=== PATIENT | female | born 1945 | race Caucasian/White ===

== ENCOUNTER 2017-05-17 09:22 | Observation (INO) | payer MEDICARE, SELFPAY ==
[2017-05-17 09:23] VITALS: BP 124/62; PULSE 84; RESP 22; TEMP 36.8; O2SAT 95; BMI 40.2
--- NOTE | 2017-05-17 09:37 | EKG12_ITS ---
Test Reason : NEAR SYNCOPE Blood Pressure : / mmHG Vent. Rate : 084 BPM Atrial Rate : 084 BPM P-R Int : 150 ms QRS Dur : 070 ms QT Int : 402 ms P-R-T Axes : 030 -08 -05 degrees QTc Int : 475 ms Normal sinus rhythm Normal ECG Confirmed by SHIRA BALLARD ([id number]), fashion editor BANDAR PATEL ([id number]) on 05/22/2017 10:10:09 AM Referred By: MIRYAM/PHILIP Confirmed By:SHIRA BALLARD
--- NOTE | 2017-05-17 09:37 | CT_ITS ---
STUDY: CT ABDOMEN AND PELVIS WITHOUT CONTRAST REASON FOR EXAM: Female, 72 years old. Abdominal pain with distention and diarrhea. RADIATION DOSAGE (If Supplied By Facility): CTDIvol = ( 24.05 ) mGy, DLP = ( 1093.41 ) mGycm TECHNIQUE: Transaxial images were obtained from the dome of the diaphragm to the symphysis pubis without oral contrast, and without intravenous contrast. Sagittal and coronal images were reconstructed. Individualized dose optimization techniques were used for this CT. COMPARISON: None. FINDINGS: Mild degree of increased linear markings at the lung bases suggestive of either scarring or dependent bibasilar atelectasis. The visualized portions of the heart are within normal limits. Normal liver. There are surgical clips in the gallbladder fossa consistent with a prior cholecystectomy. Normal spleen. Small amount of perisplenic fluid. Normal pancreas. Normal bilateral adrenal glands. Normal right kidney. Normal left kidney. There is a small hiatal hernia. Normal small intestine. There are multiple colonic diverticula consistent with diverticulosis. The patient is status post appendectomy. There is diffuse atherosclerotic calcification of the abdominal aorta, without a demonstrated aneurysm. Normal inferior vena cava. Normal retroperitoneum. Increased markings are seen in the peritoneal fat of the root of the mesentery. This may represent inflammatory changes. Normal urinary bladder. There is absence of the uterus consistent with a prior hysterectomy. Small amount of pelvic fluid. Small amount of fluid in the left paracolic gutter. Normal abdominal wall. There are diffuse degenerative changes of the visualized lumbar spine. Grade 1 anterior listhesis of L4 on L5 CT/Abdomen/Pelvis without Cont IMPRESSION: Small amount of perisplenic fluid as well as fluid in the left paracolic gutter. Small amount of fluid in the pelvis. Increased markings in the root of the mesentery suggestive of a inflammatory changes. Clinical correlation is recommended. Electronically Signed: Peter Davidson MD at 11:40 EST Tel [phone], Service support ,
[2017-05-17 10:39] LABS: Absolute Lymphocyte Count 1.79 X10^3/ul (0.83-4.51); Absolute Neutrophil Count 10.6 X10^3/uL (2.0-7.7); Basophil# 0.02 X10^3/uL; Basophil% 0.2 % (0-1); Eosinophils% 0.8 % (0-5); Hematocrit 45.6 % (37-47); Hemoglobin 14.5 g/dl (12.0-15.0); Lymphocyte # 1.79 X10^3/ul (4.0); Lymphocyte % 13.7 % (19-41); Mean Corp Hgb Conc 31.8 g/gl (32-36); Mean Corpuscular Hgb 27.8 pg (27.0-32.0); Mean Corpuscular Volume 87.4 fL (81-99); Mean Platelet Vol. 9.7 fl (6.2-12.0); Monocyte% 3.8 % (0-10); Neutrophil # 10.61 X10^3/uL (2.7-7.7); Neutrophil % 81.2 % (47-70); Platelet Count 323 K/mm3 (150-450); RBC Distribution Width CV 14.2 % (11.6-14.6); RBC Distribution Width SD 45.5 fl (35.1-43.9); Red Blood Count 5.22 M/mm3 (4.2-5.4); White Blood Count 13.1 K/mm3 (4.4-11.0)
[2017-05-17 10:57] LABS: Lactic Acid 1.6 mmol/L (0.4-2.0); POSITIVE COUNT NO; POSITIVE DIFFERENTIAL NO; POSITIVE MORPHOLOGY NO
[2017-05-17 10:59] LABS: ALB/GLOB Ratio 0.7 RATIO (0.9-2.4); AST(SGOT) 19 U/L (15-37); Alanine Aminotransfer ALT/SGPT 18 U/L (12-78); Albumin, Serum 2.9 g/dL (3.4-5.0); Alkaline Phosphatase 87 U/L (45-117); Anion Gap 9 (5-15); BUN 19 mg/dL (7-18); BUN/Creat Ratio 21.8 RATIO (10-20); Calcium,Total 8.7 mg/dL (8.5-10.1); Chloride 105 mmol/L (98-107); Creatinine, Serum 0.87 mg/dL (0.55-1.02); EST Glomerular Filtration Rate 68 mL/min (>60); Est Glom Filt Rate - Afr Amer 83 mL/min (>60); Globulin 4.3 g/dL (2.2-4.2); Glucose 89 mg/dL (70-110); Lipase 199 U/L (73-393); Potassium 4.1 mmol/L (3.5-5.1); Protein, Total 7.2 g/dL (6.4-8.2); Sodium Level 140 mmol/L (136-145)
[2017-05-17] MEDS: 0.9% Normal Saline 1,000 ML 125 ML IV (11:15)
[2017-05-17 11:16] VITALS: BP 135/76; PULSE 84; RESP 18; O2SAT 96
--- NOTE | 2017-05-17 13:02 | ED.VISSUMM ---
- ER Visit Summary Date of Service: 05/17/17 Chief Complaint: [No pain, nausea, diarrhea] History of Present Illness: The patient is a 72 F [resents to the emergency department with symptoms that started earlier today. Patient states that she started clindamycin for a dental procedure and Cipro Floxin for UTI yesterday. Patient started initially this morning with some heartburn-like symptoms then had dry heaves. She then started with watery stool. Patient denies any fever. Patient describes her abdominal discomfort is upper abdomen and feels like she is bloated. Patient denies any chest pain. Patient denies shortness of breath.] Physical Examination: [HEENT-PERRLA, EOMI. Cranial nerves II through XII grossly intact. TMs clear. Mucous membranes moist. No adenopathy. Cardiovascular-regular rate and rhythm without murmur or ectopy Lungs-clear to auscultation, chest wall stable without crepitus or subcu emphysema Abdomen-normoactive bowel sounds, soft and patient has tenderness over the upper abdomen. There is no rebound, rigidity, or perineal signs. Extremities-intact ?4, normal range of motion, normal pulses, atraumatic] Test Results: [CBC with differential obtained showed a white blood cell count of 13.1, hemoglobin 14, hematocrit 46, platelets 323. Lactate was 1.6. Chemistries unremarkable. LFTs normal and lipase was 199. Troponin was less than 0.02. CT scan of the abdomen and pelvis read by radiology as small amount of perisplenic fluid as well as fluid in the left paracolic gutter. Small amount of fluid in the pelvis. Increased markings in the root of the mesentery suggestive of inflammatory changes. Clinical correlation recommended. Patient's EKG shows sinus rhythm with rate of 84 bpm with no acute ST segment changes.] Elevated white blood cell count may be related to viral gastroenteritis and patient also on chronic prednisone therapy. Emergency Department Course and Treatment: [Patient was medicated with antiemetics. Case was discussed with hospitalist who will evaluate patient for admission. Patient's been lightheaded with standing and had near-syncopal episode when having a bowel movement in the ER and patient had continued diarrhea. Her systolic blood pressure after episode of diarrhea in the 90s. Liter of fluid was ordered.] Treatment Plan: [Was discussed with Dr. Nithya Kan who is on for general surgery regarding the CT scan findings. At this point it was not felt to be anything surgical and recommended admitting patient for IV hydration and observation. Patient had stool for enteric pathogens ordered.] Disposition: [Admit] Impression: [Abdominal pain Gastroenteritis Generalized weakness] This note was generated with [employer] dictation software. It may contain incorrect words, spelling, and punctuation that were not noted in review of the chart prior to signing ED Disposition - Plan for ED Patient: Chief Complaint: Abd Pain Referrals: Alexi Morin Chi, MD [Primary Care Provider] -
[2017-05-17 13:39] VITALS: BP 140/69; PULSE 81; RESP 20; O2SAT 97
[2017-05-17 13:41] VITALS: BMI 40.6
[2017-05-17 14:30] VITALS: BMI 40.6
[2017-05-17 14:46] VITALS: BP 122/72; PULSE 79; TEMP 36.6; O2SAT 98
[2017-05-17] MEDS: 0.9% Normal Saline 1,000 ML 150 ML IV ×2 (14:49→21:29)
[2017-05-17] MEDS: Cephalexin 500 MG Capsule PO ×2 (17:18→22:29)
--- NOTE | 2017-05-17 20:20 | PCM.HP.STD ---
Problem List (1) Diarrhea Status: Acute Qualifiers: Diarrhea type: presumed infectious Qualified Code(s): R19.7 - Diarrhea, unspecified (2) Generalized abdominal pain Status: Acute (3) Lightheadedness Status: Acute History of Present Illness Date of Admission: 05/17/17 Chief Complaint: Lightheadedness, diarrhea, generalized abdominal pain The patient is a 72 year old F was seen in the emergency room at [facility] with chief complaint of 2 episodes of diarrhea which she described as being loose stool, abdominal cramping, and 3 episodes of dry heaves this morning. Patient also complained of lightheadedness. Patient stated also that she felt she had chills today but she denied any temperature. Patient denied any hematochezia or hematemesis. Patient had been seen at her physician's office yesterday and diagnosed with a urinary tract infection was given a shot of Rocephin and placed on Cipro. Labs obtained in the emergency room showed a slightly elevated white blood cell count, patient was afebrile, CT scan showed findings which were nonspecific-small areas of fluid collection were noted but no evidence of any abscess was noted or evidence of colitis was noted. There was also no evidence of diverticulitis. Patient was given fluids in the emergency room and anti-emetics, she continued to complain of severe weakness and after having a bowel movement in the emergency room became very lightheaded, emergency room physician felt that the patient should be placed into observation status for IV fluids and observed, he contacted the hospitalist service and I concurred, patient will be placed in observation status for acute viral gastroenteritis, she will be given IV fluids, and monitored. Enteric panel was obtained on the stool and is pending Past Medical History Past Medical History (Chronic Problems): Chronic Problems GERD (gastroesophageal reflux disease) (Chronic) Generalized osteoarthritis (Chronic) Obesity (Chronic) Fibromyalgia (Chronic) Allergies latex Allergy (Verified 12/23/16 12:30) Swelling morphine Allergy (Verified 12/23/16 12:30) Other Penicillins Allergy (Verified 12/23/16 12:30) Hives hydrocodone bitartrate [From Vicodin] Adverse Reaction (Verified 12/23/16 12:30) Abd cramps/diarrhea Home Medications: Ambulatory Orders Medication Instructions Recorded Gabapentin [Neurontin] 300 mg PO QHS 02/07/16 Lisinopril [Zestril] 10 mg PO DAILY 02/07/16 Nortriptyline HCl 25 mg PO QHS 02/07/16 Spironolactone [Aldactone] 25 mg PO DAILY 02/07/16 Tolterodine Tartrate [Detrol] 2 mg PO DAILY 02/07/16 Esomeprazole Mag Trihydrate 40 mg PO BID 03/09/16 [Nexium] Ciprofloxacin [Cipro] 500 mg PO BID 05/17/17 Clindamycin [Cleocin] 150 mg PO TID 05/17/17 Magnesium Oxide [Magnesium] 400 mg PO QHS 05/17/17 Surgical History: appendectomy, cholecystectomy, hysterectomy, total knee arthroplasty - ?2, tonsillectomy, - - Breast biopsies for benign cysts, cardiac catheterization Psychiatric History: No pertinent psych hx 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 Denies: Anorexia, Chills, Fever, Night Sweats, Malaise, Weight Change Eyes: Denies: Blurred vision, Cataracts, Conjunctivae Inflammation, Double vision, Drainage HEENT: Denies: Difficulty Hearing, Difficulty Swallowing, Dysphasia, Ear Pain, Head Aches, Hearing Changes, Nasal bleeding, Nasal Congestion, Sinus Drainage, Sore Throat Cardiovascular: Reports: Light Headedness. Denies: Chest Pain, Claudication, Chest Pressure, Chest Tightness, Edema, Orthopnea, Palpitations, Paroxysmal Noc. Dyspnea Respiratory: Denies: Cough, Hemoptysis, Pleuritic Pain, Shortness of Breath, Shortness of breath at rest, Shortness of breath upon exertion, Sputum production Gastrointestinal: Reports: Abdominal Pain, Diarrhea, Nausea, Vomiting. Denies: Constipation, Hematemesis, Hematochezia, Melena Genitourinary: Denies: Dysuria, Frequency, Hematuria, Hesitancy, Urgency Gynecological: Denies: Breast symptoms Musculoskeletal: Denies: Back Pain, Foot Pain, Hand Pain, Joint Pain, Joint stiffness, Joint swelling, Joint Tenderness, Leg Pain Skin: Denies: Dryness, Pruritis, Rash Neurological: Denies: Blurred vision, Double vision, Change in Speech, Slurred speech, Difficulty swallowing, Focal weakness, Headaches, Incoordination, Numbness, Tingling Psychiatric: Denies: Anxiety, Depression, Homicidal Ideations, Suicidal Ideations Endocrine: Denies: Change in Body Habitus, Heat/ Cold Intolerance, Polydipsia, Polyuria Hematologic/ Lymphatic: Denies: Adenopathy, Anemia, Easy Bruising, Easy Bleeding, Petechiae, Purpura VTE Information - Inpt Only VTE Present on Admission: No VTE Mechan Device Prophylaxis: None VTE Pharm Prophylaxis ordered?: Yes - Physical Exam General: Alert, Oriented x3, Cooperative, No apparent distress, Well developed, Well nourished HEENT: Atraumatic, PERRLA, EOMI, Normocephalic Oral: Moist Mucosa Neck: Supple, No JVD, Negative Carotid Bruits, No Nuchal Rigidity, Trachea Midline, Thyroid Normal Size and Texture Lungs: Clear to auscultation, Normal air movement, No rhonchi, No wheeze, No rales Cardiovascular: Regular rate, Regular Rhythm, Normal S1, Normal S2, No murmurs, PMI Normal, No rub noted, No Gallop Abdomen: Bowel Sounds Present, Soft, Non-Distended, Obese, No hernias noted Extremities: No clubbing, No cyanosis, No edema, Capillary Refill Less than 3 Seconds Skin: No rashes, No breakdown Musculoskeletal: No Tenderness to Palpation of Joints or Extremities, No Muscle Wasting Neurological: Cranial nerves II-XII grossly intact, Neuro grossly intact, Muscle tone normal, Sensory exam intact to light touch and pain, Coordination normal Psych/Mental Status: Normal Affect, Appropriate, Alert and oriented to time, place, person, mood and affect Vital Signs Temp Pulse Resp BP Pulse Ox 97.9 F 79 20 H 122/72 H 98 05/17/17 14:46 05/17/17 14:46 05/17/17 13:39 05/17/17 14:46 05/17/17 14:46 Oxygen Delivery Method Room Air Weight: 97.4 kg Body Mass Index (BMI) 40.6 Assessment/Plan #1 viral gastroenteritis-patient will be admitted given IV fluids, antiemetics will be given, enteric panel will be performed on stool #2 lightheadedness secondary to #1 #3 generalized weakness secondary to #1 #4 hypotension secondary to diarrhea #5 dehydration Code Visit OBSV E&M: 70395 Initial observation care L3
[2017-05-17 21:00] VITALS: BP 144/82; PULSE 85; RESP 18; TEMP 37.1; O2SAT 95
[2017-05-17 22:24] LABS: Bacteria 0 SEEN /hpf (None Seen); Mucous, Urine 0 SEEN /hpf (<or=2+); Red Blood Cells-Urine 0 SEEN /hpf (0-5)
[2017-05-17 22:27] LABS: Color, Urine Yellow (Yellow); Glucose, Dipstick Normal (Normal); Ketone-Dipstick Negative (Negative); Leukocyte Esterase-Dipstick 25 /ul (Negative); Nitrite-Dipstick Negative (Negative); Occult Blood-Urine Negative /ul (Negative); Protein-Dipstick Negative (Negative); Urine Bilirubin Dipstick Negative (Negative); Urine Clarity Clear (Clear); Urine Urobilinogen Normal (Normal)
[2017-05-17] MEDS: Acetaminophen 325 MG Tablet 650 MG PO (22:27)
[2017-05-17] MEDS: Dicyclomine 10 MG Capsule 20 MG PO (22:28)
[2017-05-17] MEDS: Nortriptyline 25 MG Capsule PO (22:29)
[2017-05-17] MEDS: Pantoprazole Sodium 40 MG Tablet PO (22:29)
[2017-05-17] MEDS: Magnesium Oxide 400 MG Tablet PO (22:29)
[2017-05-17] MEDS: Gabapentin 300 MG Capsule PO (22:29)
[2017-05-17] MEDS: Heparin Injection 5,000 UNITS/ML Syringe 5000 UNITS SC (22:31)
[2017-05-17 22:38] LABS: Squamous Epithelial Cells - UA 0-5 SEEN /hpf (5-10); White Blood Cells 5-10 SEEN /hpf (0-5)
[2017-05-18 02:39] VITALS: BP 131/79; PULSE 75; RESP 20; TEMP 36.6; O2SAT 96
[2017-05-18] MEDS: 0.9% Normal Saline 1,000 ML 150 ML IV (04:20)
[2017-05-18] MEDS: Dicyclomine 10 MG Capsule 20 MG PO (06:00)
[2017-05-18] MEDS: Cephalexin 500 MG Capsule PO (06:01)
[2017-05-18 06:38] LABS: Absolute Lymphocyte Count 1.76 X10^3/ul (0.83-4.51); Absolute Neutrophil Count 6.1 X10^3/uL (2.0-7.7); Basophil# 0.02 X10^3/uL; Basophil% 0.2 % (0-1); Eosinophil# 0.11 X10^3/uL; Eosinophils% 1.3 % (0-5); Hematocrit 37.7 % (37-47); Lymphocyte # 1.76 X10^3/ul (4.0); Lymphocyte % 20.7 % (19-41); Mean Corp Hgb Conc 31.8 g/gl (32-36); Mean Corpuscular Volume 87.9 fL (81-99); Mean Platelet Vol. 9.7 fl (6.2-12.0); Monocyte% 5.9 % (0-10); Neutrophil # 6.08 X10^3/uL (2.7-7.7); Neutrophil % 71.3 % (47-70); Platelet Count 287 K/mm3 (150-450); RBC Distribution Width CV 14.6 % (11.6-14.6); Red Blood Count 4.29 M/mm3 (4.2-5.4); White Blood Count 8.5 K/mm3 (4.4-11.0)
[2017-05-18 06:53] LABS: Anion Gap 6 (5-15); BUN 15 mg/dL (7-18); BUN/Creat Ratio 24.1 RATIO (10-20); Calcium,Total 7.8 mg/dL (8.5-10.1); Chloride 111 mmol/L (98-107); Creatinine, Serum 0.62 mg/dL (0.55-1.02); EST Glomerular Filtration Rate 101 mL/min (>60); Est Glom Filt Rate - Afr Amer 122 mL/min (>60); Glucose 87 mg/dL (70-110); Potassium 3.9 mmol/L (3.5-5.1); Sodium Level 142 mmol/L (136-145)
[2017-05-18 06:56] LABS: POSITIVE COUNT NO; POSITIVE DIFFERENTIAL NO; POSITIVE MORPHOLOGY NO
[2017-05-18 08:39] VITALS: BP 126/74; PULSE 72; RESP 18; TEMP 36.7; O2SAT 97
[2017-05-18] MEDS: 0.9% Normal Saline 1,000 ML 125 ML IV (09:45)
[2017-05-18] MEDS: Pantoprazole Sodium 40 MG Tablet PO (09:45)
[2017-05-18] MEDS: Lisinopril 10 MG Tablet PO (09:45)
[2017-05-18] MEDS: Tolterodine Tartrate 2 MG CAP.SA PO (09:45)
[2017-05-18] MEDS: Heparin Injection 5,000 UNITS/ML Syringe 5000 UNITS SC (09:45)
--- NOTE | 2017-05-18 11:05 | PCM.DC ---
- Discharge Diagnoses Current Active Problems: Current Active and Chronic Problems Diarrhea (Acute) Generalized abdominal pain (Acute) Lightheadedness (Acute) You will use the following diet at home:: No restrictions Your food should be the consistency of: Regular Your liquids should be the consistency of: Regular/Thin Discharge Activity: Return to Normal Activity Weight Bearing Status: Full weight bearing Allergies/Adverse Reactions: Allergies latex Allergy (Verified 12/23/16 12:30) Swelling morphine Allergy (Verified 12/23/16 12:30) Other Penicillins Allergy (Verified 12/23/16 12:30) Hives hydrocodone bitartrate [From Vicodin] Adverse Reaction (Verified 12/23/16 12:30) Abd cramps/diarrhea Medications to take at Discharge Gabapentin [Neurontin] 300 mg PO QHS 02/07/16 Lisinopril [Zestril] 10 mg PO DAILY 02/07/16 Nortriptyline HCl 25 mg PO QHS 02/07/16 Spironolactone [Aldactone] 25 mg PO DAILY 02/07/16 Tolterodine Tartrate [Detrol] 2 mg PO DAILY 02/07/16 Esomeprazole Mag Trihydrate [Nexium] 40 mg PO BID 03/09/16 Ciprofloxacin [Cipro] 500 mg PO BID 05/17/17 Clindamycin [Cleocin] 150 mg PO TID 05/17/17 Magnesium Oxide [Magnesium] 400 mg PO QHS 05/17/17 Primary Care Physician: Alexi Morin Chi, MD [Primary Care Provider] - Please follow up with your Primary Care Physician in: at next appt time
--- NOTE | 2017-05-20 07:56 | PCM.DC.SUM ---
Discharge Date and Diagnosis Date of Admission: 05/17/17 Date of Discharge: 05/18/17 - Primary Discharge Diagnosis #1 viral gastroenteritis #2 dehydration secondary to viral gastroenteritis #3 lightheadedness secondary to viral gastroenteritis #4 hypotension secondary to dehydration - Secondary Discharge Diagnosis Chronic Problems GERD (gastroesophageal reflux disease) (Chronic) Generalized osteoarthritis (Chronic) Obesity (Chronic) Fibromyalgia (Chronic) Hospital Course and Treatment Operations: None Procedures: None Summary of Care Provided: The patient is a 72 year old F was seen in the emergency room at [facility] with chief complaint of diarrhea, abdominal cramping, and dry heaves. Workup in the emergency room shows slight elevation of her BUN and a slight elevation of her white blood cell count. Patient became lightheaded in the emergency room and blood pressure dropped into the 90s systolic which was felt to be secondary to dehydration. Patient was placed in observation status on MedSurg 2, given IV fluids and anti-emetics, enteric panel was obtained on the stool which was negative for pathogens tested. The following day on 05/18/17, patient was seen and examined felt to be in stable condition for discharge home. Discharge Activity: Return to Normal Activity Weight Bearing Status: Full weight bearing Home Medications: Medications to take at Discharge Gabapentin [Neurontin] 300 mg PO QHS 02/07/16 Lisinopril [Zestril] 10 mg PO DAILY 02/07/16 Nortriptyline HCl 25 mg PO QHS 02/07/16 Spironolactone [Aldactone] 25 mg PO DAILY 02/07/16 Tolterodine Tartrate [Detrol] 2 mg PO DAILY 02/07/16 Esomeprazole Mag Trihydrate [Nexium] 40 mg PO BID 03/09/16 Ciprofloxacin [Cipro] 500 mg PO BID 05/17/17 Clindamycin [Cleocin] 150 mg PO TID 05/17/17 Magnesium Oxide [Magnesium] 400 mg PO QHS 05/17/17 Primary Care Physician: Alexi Morin Chi, MD [Primary Care Provider] - Please follow up with your Primary Care Physician in: at next appt time Disposition: Home Minutes spent on discharge:: 24 Patient Condition:: Stable Meaningful Use Info Meaningful Use Diagnoses (Choose all that apply): None applicable Code Visit OBSV E&M: 29484 Observation care discharge
== END 2017-05-18 11:39 | disposition home or self-care (01) ==
LOC: ED 09:59 → MS2 13:38
PROVIDERS: Admitting Provider Internal Medicine; Emergency Provider Emergency Medicine; Family Provider Family Medicine Geriatric Medicine; PCP Family Medicine Geriatric Medicine; Visit Provider Internal Medicine
DX: A08.4 Viral intestinal infection, unspecified (principal); E86.0 Dehydration; K21.9 Gastro-esophageal reflux disease without esophagitis; M79.7 Fibromyalgia; M15.9 Polyosteoarthritis, unspecified; E66.9 Obesity, unspecified; Z68.41 Body mass index [BMI] 40.0-44.9, adult; Z71.3 Dietary counseling and surveillance; N39.0 Urinary tract infection, site not specified; Z79.52 Long term (current) use of systemic steroids; Z79.899 Other long term (current) drug therapy; I95.9 Hypotension, unspecified; R42 Dizziness and giddiness
CPT/HCPCS: 36415; 74176; 80048; 80053; 81001; 83605; 83690; 84484; 85025; 87506; 93005; 96372; 97162; 97165; 99218; 99285; J7030; A4216; G0378

== ENCOUNTER → 2017-05-31 10:39 | Outpatient (CLI) | payer MEDICARE, SELFPAY ==
[2017-05-17 14:30] VITALS: BMI 40.6
[2017-05-18 08:39] VITALS: BP 126/74
== END ==
PROVIDERS: Family Provider Family Medicine Geriatric Medicine; PCP Family Medicine Geriatric Medicine; Visit Provider Family Medicine Geriatric Medicine
DX: N39.0 Urinary tract infection, site not specified (principal)
CPT/HCPCS: 87086; 87088

== ENCOUNTER → 2017-07-30 15:18 | Outpatient (CLI) | payer MEDICARE, SELFPAY ==
[2017-07-30 17:13] LABS: ALB/GLOB Ratio 0.8 RATIO (0.9-2.4); AST(SGOT) 33 U/L (15-37); Alanine Aminotransfer ALT/SGPT 21 U/L (13-56); Albumin, Serum 3.2 g/dL (3.2-5.0); Alkaline Phosphatase 95 U/L (45-117); Amylase 37 U/L (25-115); Anion Gap 6 (5-15); BUN 14 mg/dL (7-18); BUN/Creat Ratio 18.7 RATIO (10-20); Calcium,Total 8.7 mg/dL (8.5-10.1); Chloride 104 mmol/L (98-107); Creatinine, Serum 0.75 mg/dL (0.55-1.02); EST Glomerular Filtration Rate 81 mL/min (>60); Est Glom Filt Rate - Afr Amer 99 mL/min (>60); Globulin 4.2 g/dL (2.2-4.2); Glucose 80 mg/dL (74-106); Lipase 173 U/L (73-393); Potassium 3.6 mmol/L (3.5-5.1); Protein, Total 7.4 g/dL (6.4-8.2); Sodium Level 140 mmol/L (136-145)
[2017-07-30 17:20] LABS: Absolute Lymphocyte Count 1.91 X10^3/ul (0.83-4.51); Absolute Neutrophil Count 5.1 X10^3/uL (2.0-7.7); Basophil# 0.03 X10^3/uL; Basophil% 0.4 % (0-1); Eosinophil# 0.16 X10^3/uL; Hematocrit 42.7 % (37-47); Hemoglobin 13.6 g/dl (12.0-15.0); Lymphocyte # 1.91 X10^3/ul (4.0); Lymphocyte % 24.1 % (19-41); Mean Corp Hgb Conc 31.9 g/gl (32-36); Mean Corpuscular Hgb 27.1 pg (27.0-32.0); Mean Corpuscular Volume 85.1 fL (81-99); Mean Platelet Vol. 10.7 fl (6.2-12.0); Monocyte# 0.68 X10^3/uL; Monocyte% 8.6 % (0-10); Neutrophil # 5.11 X10^3/uL (2.7-7.7); Neutrophil % 64.6 % (47-70); Platelet Count 308 K/mm3 (150-450); RBC Distribution Width CV 14.2 % (11.6-14.6); RBC Distribution Width SD 43.9 fl (35.1-43.9); Red Blood Count 5.02 M/mm3 (4.2-5.4); White Blood Count 7.9 K/mm3 (4.4-11.0)
[2017-07-30 17:59] LABS: POSITIVE COUNT NO; POSITIVE DIFFERENTIAL NO; POSITIVE MORPHOLOGY NO
== END ==
PROVIDERS: Family Provider Family Medicine Geriatric Medicine; PCP Family Medicine Geriatric Medicine; Visit Provider Family Medicine Geriatric Medicine
DX: R10.9 Unspecified abdominal pain (principal)
CPT/HCPCS: 36415; 80053; 82150; 83690; 85025

== ENCOUNTER → 2017-07-30 15:49 | Outpatient (CLI) | payer MEDICARE, SELFPAY ==
--- NOTE | 2017-07-30 15:50 | CT_ITS ---
STUDY: CT ABDOMEN AND PELVIS WITH CONTRAST REASON FOR EXAM: Female, 72 years old. Abdominal pain RADIATION DOSAGE (If Supplied By Facility): CTDIvol = ( 18.32 ) mGy, DLP = ( 1096.42 ) mGycm TECHNIQUE: Transaxial images were obtained from the dome of the diaphragm to the symphysis pubis without oral contrast. 100ML ml of Isovue 300 contrast was administered. Sagittal and coronal images were reconstructed. Individualized dose optimization techniques were used for this CT. COMPARISON: Prior study of 05/17/2017 FINDINGS: The visualized lung bases are unremarkable. The visualized portions of the heart are within normal limits. Normal liver. There are surgical clips in the gallbladder fossa consistent with a prior cholecystectomy. Normal spleen. Normal pancreas. There is a minimal amount of fluid in the left paracolic gutter similar to the previous study. Normal bilateral adrenal glands. Normal right kidney. Normal left kidney. There is a small hiatal hernia. Normal small intestine. There is colonic diverticulosis. There is minimal perisigmoidal fatty stranding. The appendix is not seen in accordance with history of appendectomy. There are calcified plaques of the abdominal aorta and common iliac arteries. Normal inferior vena cava. Normal retroperitoneum. Normal urinary bladder. There is absence of the uterus consistent with a prior hysterectomy. There is a small amount of free intrapelvic fluid. Normal abdominal wall. There is a minimal grade 1 anterolisthesis of L4 relative to L5. There are diffuse degenerative changes of the visualized thoracolumbar spine. There is a small amount of subcutaneous gas of the left gluteal region most likely representing injection site. CT/Abdomen/Pelvis WITH Contrast IMPRESSION: Status post cholecystectomy, appendectomy and hysterectomy. Colonic diverticulosis. There is no evidence of associated diverticulitis. Minimal grade 1 anterolisthesis of L4 relative to L5. Diffuse degenerative changes of the thoracolumbar spine. Minimal free fluid in the deep pelvis and left paracolic gutter, similar to the previous study. There is a small amount of free fluid in the pelvis and left paracolic gutter. Electronically Signed: Amos Jasso MD at 19:36 EDT , Service support ,
== END ==
PROVIDERS: Family Provider Family Medicine Geriatric Medicine; PCP Family Medicine Geriatric Medicine; Visit Provider Family Medicine Geriatric Medicine
DX: R10.9 Unspecified abdominal pain (principal)
CPT/HCPCS: 36415; 74177; 80053; 82150; 83690; 85025; Q9967

== ENCOUNTER 2017-08-04 15:21 | Emergency (ER) | payer MEDICARE, SELFPAY ==
[2017-08-04 15:22] VITALS: BP 186/110; PULSE 96; RESP 18; TEMP 37; O2SAT 96; BMI 36.8
[2017-08-04] MEDS: Dicyclomine 10 MG Capsule 20 MG PO (16:36)
[2017-08-04 16:52] LABS: Absolute Lymphocyte Count 1.31 X10^3/ul (0.83-4.51); Absolute Neutrophil Count 6.7 X10^3/uL (2.0-7.7); Basophil# 0.03 X10^3/uL; Basophil% 0.3 % (0-1); Eosinophils% 1.1 % (0-5); Hematocrit 40.7 % (37-47); Hemoglobin 13.2 g/dl (12.0-15.0); Lymphocyte # 1.31 X10^3/ul (4.0); Lymphocyte % 14.8 % (19-41); Mean Corp Hgb Conc 32.4 g/gl (32-36); Mean Corpuscular Hgb 27.1 pg (27.0-32.0); Mean Corpuscular Volume 83.6 fL (81-99); Monocyte# 0.69 X10^3/uL; Monocyte% 7.8 % (0-10); Neutrophil # 6.73 X10^3/uL (2.7-7.7); Neutrophil % 75.8 % (47-70); POSITIVE COUNT NO; POSITIVE DIFFERENTIAL NO; POSITIVE MORPHOLOGY NO; Platelet Count 301 K/mm3 (150-450); RBC Distribution Width CV 13.8 % (11.6-14.6); RBC Distribution Width SD 42.1 fl (35.1-43.9); Red Blood Count 4.87 M/mm3 (4.2-5.4); White Blood Count 8.9 K/mm3 (4.4-11.0)
[2017-08-04 17:12] LABS: ALB/GLOB Ratio 0.7 RATIO (0.9-2.4); AST(SGOT) 19 U/L (15-37); Alanine Aminotransfer ALT/SGPT 12 U/L (13-56); Albumin, Serum 3.1 g/dL (3.2-5.0); Alkaline Phosphatase 99 U/L (45-117); Anion Gap 5 (5-15); BUN 14 mg/dL (7-18); BUN/Creat Ratio 18.4 RATIO (10-20); Chloride 107 mmol/L (98-107); Creatinine, Serum 0.76 mg/dL (0.55-1.02); EST Glomerular Filtration Rate 80 mL/min (>60); Est Glom Filt Rate - Afr Amer 97 mL/min (>60); Globulin 4.3 g/dL (2.2-4.2); Glucose 91 mg/dL (74-106); Potassium 4.2 mmol/L (3.5-5.1); Protein, Total 7.4 g/dL (6.4-8.2); Sodium Level 141 mmol/L (136-145)
--- NOTE | 2017-08-04 17:30 | ED.VISSUMM ---
- ER Visit Summary Date of Service: 08/04/17 Chief Complaint: Abdominal pain for 4 months History of Present Illness: The patient is a 72 F who presents because of intermittent crampy bilateral mid abdominal pain ?4 weeks. She is seeing Dr. Sharpe and had an outpatient CAT scan and blood work. Blood work was unremarkable. CAT scan revealed no changes from CAT scan obtained May 17, 2017. On both scans minimal fluid was noted in the pelvis and there was left pericolic fluid noted as well. There was no inflammatory changes and no reactive lymphadenopathy noted. She is status post cholecystectomy, appendectomy and hysterectomy. She denies fever, chills night sweats. She reports 20 pound weight loss because she does not want to eat. She did have a recent EGD for esophageal dilation. She denies any ocular, visual or auditory symptoms. She denies any chest pain or palpitations. She denies shortness of breath, dyspnea, dyspnea on exertion. She reports intermittent nausea without vomiting or diarrhea. She denies change in the consistency, color, caliber or frequency of her stools. She states her stools are soft. She denies dysuria, frequency, urgency or hematuria. She denies trauma. She denies back or flank pain. There is no history of renal ureterolithiasis. There is a past medical history of GERD, fibromyalgia, osteoarthritis and BMI is 36.8. Physical Examination: Blood pressure is elevated 186/110. I entered the room she has a flat affect with poverty of speech. Head is atraumatic normocephalic. Pupils are equal round reactive. Extraocular muscles are intact. TMs are pearly white with landmarks noted. Nares patent with no drainage. Posterior pharynx without erythema or exudate. Uvula is midline. There is no dysphonia or dysphasia. Trachea is midline. There is no stridor with auscultation of the neck. Heart is regular without murmur, gallop or rub. S1 and S2 are normal. Lungs are clear to auscultation with good movement of air bilaterally. Abdomen is soft with tenderness without guarding or rebound. Bowel sounds are present normal. There is no evidence of ventral umbilical hernia. There are no skin lesions or rash noted. There is no CVA tenderness noted. Lower extremity exam is unremarkable. She is alert and oriented. Motor sensory intact. DTRs symmetric. Cranial 2 through 12 intact. Test Results: Since she has had multiple tests done over the past 2+ months and 2 CAT scans believe there is an indication for a new CAT scan in light of the fact that she is not febrile and has no guarding or rebound tenderness. Because she is elderly CBC, and CMP was obtained. The results of her blood tests were unremarkable. Emergency Department Course and Treatment: Evaluate patient's abdominal pain she was given Bentyl and a CBC and CMP were obtained. Indication documented in test results. Treatment Plan: Since she has a benign exam with no change in workup recommended follow-up with Dr. Sharpe and need to look at other causes of pain. When I informed her of this she made the comment it cannot be stressed because it wakes me up. Patient was informed that anxiety and stress can disrupt her sleep. Her then made the comment this is probably stress/depression. Disposition: Discharged to home to follow-up with PCP and grade tamper Impression: 1. Bilateral abdominal pain of uncertain etiology 2. History of fibromyalgia 3. Status post appendectomy 4. Status post cholecystectomy 5. Status post hysterectomy This note was generated with [employer] software. It may contain incorrect words, spelling, and punctuation that were not noted in review of the chart prior to signing ED Disposition - Plan for ED Patient: Disposition: Home or Assisted Living Chief Complaint: Abd Pain Instructions: ED Abdominal Pain Unkn Cause Referrals: Alexi Morin Chi, MD [Primary Care Provider] - 3-5 Days if not improving
[2017-08-04 17:40] VITALS: BP 146/81; PULSE 73; RESP 16; O2SAT 95
== END 2017-08-04 17:47 | disposition home or self-care (01) ==
PROVIDERS: Emergency Provider Emergency Medicine; Family Provider Family Medicine Geriatric Medicine; PCP Family Medicine Geriatric Medicine
DX: R10.9 Unspecified abdominal pain (principal); M79.7 Fibromyalgia; M54.9 Dorsalgia, unspecified; K21.9 Gastro-esophageal reflux disease without esophagitis; R53.1 Weakness; Z90.49 Acquired absence of other specified parts of digestive tract; Z90.710 Acquired absence of both cervix and uterus
CPT/HCPCS: 80053; 85025; 99282; A4216

== ENCOUNTER → 2017-08-09 15:44 | Outpatient (CLI) | payer MEDICARE, SELFPAY | PROVIDERS: Family Provider Family Medicine Geriatric Medicine; PCP Family Medicine Geriatric Medicine; Visit Provider Family Medicine Geriatric Medicine | DX: R63.0 Anorexia (principal) | CPT/HCPCS: 36415 ==

== ENCOUNTER → 2017-08-11 11:45 | Outpatient (CLI) | payer MEDICARE, SELFPAY ==
[2017-08-14 14:08] LABS: 5-HIAA, UR 3.1 mg/L (Undefined)
[2017-08-14 16:11] LABS: 5-HIAA, 24UR 2.9 mg/24 hr (0.0-14.9)
== END ==
PROVIDERS: Family Provider Family Medicine Geriatric Medicine; PCP Family Medicine Geriatric Medicine; Visit Provider Family Medicine Geriatric Medicine
DX: R63.0 Anorexia (principal)
CPT/HCPCS: 83497

== ENCOUNTER → 2017-08-15 12:52 | Outpatient (CLI) | payer MEDICARE, SELFPAY ==
--- NOTE | 2017-08-15 12:54 | NM_ITS ---
CLINICAL: 72-year-old female with reported history of abdominal pain and early satiety. SEMI-SOLID PHASE 99m Tc SULFUR COLLOID GASTRIC EMPTYING STUDY COMPARISON: CT of the abdomen-pelvis report 07/30/2017 FINDINGS: The patient was administered 1.0 mCi of 99m Tc sulfur colloid mixed with oatmeal and consumed per os. Image acquisitions in the anterior-posterior projections for a total of 60 minutes. There is prompt visualization of the stomach. There is no gastroesophageal reflux identified. The T1/2 linear fit was calculated to be 46.77 minutes, (Normal: 12-56 minutes). Persistent esophageal radio pharmaceutical concentration is demonstrated throughout the course of image acquisition. NM/Gastric Emptying Study IMPRESSION: 1. NORMAL 99m Tc sulfur colloid semi-solid phase (oatmeal) gastric emptying imaging examination. A. There is normal and preserved semi-solid phase gastric emptying compared to normal controls with maintained first order kinetics throughout all components of the examination. (Mini et al, J Nucl Med Tech 38: 186, 2010). Electronically Signed: Igor Alvarez DO at 10:38 EDT Tel , Service support ,
== END ==
PROVIDERS: Family Provider Family Medicine Geriatric Medicine; PCP Family Medicine Geriatric Medicine; Visit Provider Family Medicine Geriatric Medicine
DX: R63.0 Anorexia (principal)
CPT/HCPCS: 78264; A9541

== ENCOUNTER → 2017-10-26 10:22 | Outpatient (CLI) | payer MEDICARE, SELFPAY ==
--- NOTE | 2017-10-26 10:55 | RAD_ITS ---
STUDY: X-RAY - LUMBOSACRAL SPINE REASON FOR EXAM: Female, 72 years old. Back pain extending into right side of pelvis times several years TECHNIQUE: 9 view(s) of the lumbosacral spine were obtained. COMPARISON: Previous study of 12/21/2015 FINDINGS: Normal lumbar lordosis. There is a mild thoracolumbar levoscoliosis. There is a grade 1 anterolisthesis of L4 relative to L5. There is diffuse demineralization with multi-level endplate spondylosis. There is multi-level degenerative disc disease with multi-level disc space narrowing. Normal bilateral sacral ala, sacroiliac joints, and visualized sacrum. Normal visualized soft tissue structures. RAD/L/S Spine w Bend Min 6 Vw IMPRESSION: Degenerative changes as detailed above. Grade 1 anterolisthesis of L4 relative to L5. Findings are similar to the previous study of 12/21/2015. Electronically Signed: Amos Jasso MD at 20:53 EDT , Service support ,
--- NOTE | 2017-10-26 10:56 | VDLE_ITS ---
Reason For Study: EDEMA RIGHT LEFT GSV is normal. GSV is normal. CFV is compressible, spontaneous, phasic, CFV is compressible, spontaneous, phasic, competent and demonstrates normal competent, and demonstrates normal augmentation. augmentation. FV is compressible, spontaneous, phasic, FV is compressible, spontaneous, phasic, competent and demonstrates normal competent and demonstrates normal augmentation. augmentation. POP V is compressible, spontaneous, phasic, POP V is compressible, spontaneous, phasic, competent and demonstrates normal competent and demonstrates normal augmentation. augmentation. T/P Trunk is compressible. T/P Trunk is compressible. PTV is compressible. PTV is compressible. RT PerV is compressible. LT PerV is compressible. Procedure Exam performed in department. A preliminary report was called and/or faxed to DR MORIN. Interpretation Summary Deep veins of the lower extremities are bilaterally patent and compressible segmentally. There is no evidence of deep vein thrombosis on either side. Valvular competence appears intact within the proximal deep venous systems bilaterally. The greater saphenous veins appear bilaterally patent and compressible segmentally. Ordering Physician: Alexi Morin Referring Physician: Alexi Morin Chi Performed By: Charity Mendez, NIKOCS, RVT
== END ==
PROVIDERS: Family Provider Family Medicine Geriatric Medicine; PCP Family Medicine Geriatric Medicine; Visit Provider Family Medicine Geriatric Medicine
DX: R60.0 Localized edema (principal); M54.5 Low back pain
CPT/HCPCS: 72114; 93970

== ENCOUNTER → 2017-11-08 09:22 | Outpatient (CLI) | payer MEDICARE, SELFPAY ==
--- NOTE | 2017-11-08 09:26 | US_ITS ---
STUDY: ULTRASOUND BREAST - LEFT REASON FOR EXAM: Female, 72 years old. Palpable lump left breast. TECHNIQUE: Axial and longitudinal images of the LEFT breast were performed with a high resolution ultrasound transducer. COMPARISON: Comparison is made with prior mammogram done earlier today. FINDINGS: LEFT Breast: The medial half of the left breast was examined by ultrasound. There is homogeneous fibroglandular tissue. No solid or cystic mass lesion is seen. US/Breast Limited Unilateral IMPRESSION: Unremarkable sonogram of the medial aspect of the left breast. ASSESSMENT CATEGORY: BIRADS Category 1: Negative. A letter regarding these results will be sent to the patient by the facility within 30 days. Electronically Signed: Peter Davidson MD at 12:22 EDT Tel [phone], Service support ,
--- NOTE | 2017-11-08 09:26 | BI_ITS ---
MAMMOGRAPHY - BILATERAL DIAGNOSTIC REASON FOR EXAM: Female, 72 years old. Left breast lump. PERTINENT HISTORY: Mother with breast cancer. Aunt with breast cancer. History of prior bilateral excisional breast biopsies. TECHNIQUE: Digital bilateral breast radha (3D mammographic acquisition) in the CC and MLO projections. 2-D mediolateral oblique (MLO) and craniocaudad (CC) views of both breasts were obtained. CAD: Full Field Digital Mammography with Computer Added Detection was performed. COMPARISON: Comparison is made with prior study dated February 16, 2017 and February 02, 2015. FINDINGS: Breast Composition: The breasts are heterogeneously dense, which may obscure small masses. There are no dominant masses or suspicious calcifications. 2 tissue clip markers are seen in the right breast and are unchanged. Stable appearance of the small nodules in both breasts. No other significant abnormalities are identified. There has been no significant change since the prior study. BI/DIAG MAMM W/CAD, BILAT IMPRESSION: Stable bilateral diagnostic mammogram. With the patient's history of a palpable abnormality in the left breast, correlation with ultrasound is recommended. ASSESSMENT CATEGORY: BIRADS Category 0: Incomplete. Need additional imaging evaluation. A letter regarding these results will be sent to the patient by the facility within 30 days. Approximately 10% of breast cancers are not detected by mammography. A normal mammogram should not delay biopsy of a clinically suspicious abnormality. Electronically Signed: Peter Davidson MD at 12:24 EDT Tel [phone], Service support ,
== END ==
PROVIDERS: Family Provider Family Medicine Geriatric Medicine; PCP Family Medicine Geriatric Medicine; Visit Provider Family Medicine Geriatric Medicine
DX: N63.24 Unspecified lump in the left breast, lower inner quadrant (principal)
CPT/HCPCS: 76642; 77062; 77066; G0279

== ENCOUNTER → 2017-11-12 10:34 | Outpatient (CLI) | payer MEDICARE, SELFPAY ==
[2017-11-12 12:50] LABS: Absolute Lymphocyte Count 1.67 X10^3/ul (0.83-4.51); Absolute Neutrophil Count 4.1 X10^3/uL (2.0-7.7); Basophil# 0.03 X10^3/uL; Basophil% 0.5 % (0-1); Eosinophil# 0.13 X10^3/uL; Hemoglobin 13.9 g/dl (12.0-15.0); Lymphocyte # 1.67 X10^3/ul (4.0); Lymphocyte % 25.4 % (19-41); Mean Corp Hgb Conc 32.3 g/gl (32-36); Mean Corpuscular Hgb 27.3 pg (27.0-32.0); Mean Corpuscular Volume 84.5 fL (81-99); Mean Platelet Vol. 10.6 fl (6.2-12.0); Monocyte# 0.62 X10^3/uL; Monocyte% 9.4 % (0-10); Neutrophil # 4.12 X10^3/uL (2.7-7.7); Neutrophil % 62.5 % (47-70); Platelet Count 275 K/mm3 (150-450); RBC Distribution Width CV 15.7 % (11.6-14.6); RBC Distribution Width SD 47.6 fl (35.1-43.9); Red Blood Count 5.09 M/mm3 (4.2-5.4); White Blood Count 6.6 K/mm3 (4.4-11.0)
[2017-11-12 12:52] LABS: POSITIVE COUNT NO; POSITIVE DIFFERENTIAL NO; POSITIVE MORPHOLOGY NO
[2017-11-12 13:03] LABS: ALB/GLOB Ratio 0.7 RATIO (0.9-2.4); AST(SGOT) 20 U/L (15-37); Alanine Aminotransfer ALT/SGPT 20 U/L (13-56); Albumin, Serum 3.2 g/dL (3.2-5.0); Alkaline Phosphatase 110 U/L (45-117); Anion Gap 6 (5-15); BUN 14 mg/dL (7-18); BUN/Creat Ratio 16.9 RATIO (10-20); Calcium,Total 9.3 mg/dL (8.5-10.1); Chloride 107 mmol/L (98-107); Creatinine, Serum 0.83 mg/dL (0.55-1.02); EST Glomerular Filtration Rate 73 mL/min (>60); Est Glom Filt Rate - Afr Amer 88 mL/min (>60); Globulin 4.4 g/dL (2.2-4.2); Glucose 85 mg/dL (74-106); Potassium 3.7 mmol/L (3.5-5.1); Protein, Total 7.6 g/dL (6.4-8.2); Sodium Level 142 mmol/L (136-145); Thyroid Stim Hormone (TSH) 1.03 uIU/mL (0.358-3.74)
[2017-11-12 13:08] LABS: Vitamin D,25 Hydroxy 14.2 ng/mL (29.95-100.01)
[2017-11-13 13:55] LABS: Hep C Antibodies <0.1 s/co ratio (0.0-0.9)
== END ==
PROVIDERS: Family Provider Family Medicine Geriatric Medicine; PCP Family Medicine Geriatric Medicine; Visit Provider Family Medicine Geriatric Medicine
DX: I10 Essential (primary) hypertension (principal); E55.9 Vitamin D deficiency, unspecified; Z13.89 Encounter for screening for other disorder
CPT/HCPCS: 36415; 80053; 82306; 84443; 85025; 86803

== ENCOUNTER → 2017-11-20 11:50 | Outpatient (CLI) | payer MEDICARE, SELFPAY ==
--- NOTE | 2017-11-20 12:09 | US_ITS ---
STUDY: ULTRASOUND BREAST - LEFT REASON FOR EXAM: Female, 72 years old. Patient was scheduled for ultrasound-guided left breast biopsy. TECHNIQUE: Axial and longitudinal images of the LEFT breast were performed with a high resolution ultrasound transducer. COMPARISON: Comparison is made with prior sonogram dated November 08, 2017. FINDINGS: LEFT Breast: No sonographic abnormality was observed. The biopsy was canceled. US/Breast Limited Unilateral IMPRESSION: No sonographic abnormality is seen. ASSESSMENT CATEGORY: BIRADS Category 1: Negative. A letter regarding these results will be sent to the patient by the facility within 30 days. Electronically Signed: Peter Davidson MD at 13:35 EDT Tel [phone], Service support ,
== END ==
PROVIDERS: Family Provider Family Medicine Geriatric Medicine; PCP Family Medicine Geriatric Medicine; Visit Provider Surgery
DX: R92.8 Other abnormal and inconclusive findings on diagnostic imaging of breast (principal); N63.20 Unspecified lump in the left breast, unspecified quadrant
CPT/HCPCS: 76642

== ENCOUNTER → 2017-12-15 08:00 | Outpatient (CLI) | payer MEDICARE, SELFPAY ==
--- NOTE | 2017-12-15 08:00 | BRBX_PTH ---
PATIENT: JIE HENRIQUEZ LOC: [facility] U#:[id number] AGE/SX: 79/F ROOM: RE12/15/[address]: Dr. Jung Zee MD : 1945 BED: DIS: SPEC #: [id number] RECD: 12/15/17 11:27 STATUS: TYLOR LINDA #: [id number] SONJA: 12/15/17 08:[address]: Jung Zee DEPT: SURGICAL PATHOLOGY RECD BY: Yordy Vale ENTERED: 12/17/17 13:37 SP TYPE: BREAST BX OTHR DR: MD Alexi Ballard Chi, Chi, MD Tissues: Left breast, NOS Procedures: Surgery Specimen Level IV HEADER OPERATION: Needle core biopsy of left breast PRE-OP DIAGNOSIS: Left breast mass, N63.20 TISSUE SUBMITTED: Left breast tissue ISCHEMIC TIME: <1 minute FIXATION TIME: 47 hours MICROSCOPIC DIAGNOSIS Left breast, core biopsy: Nonproliferative fibrocystic change. No evidence of malignancy. AM:irish 12/18/17 MICROSCOPIC DESCRIPTION Slides are reviewed. GROSS DESCRIPTION Received in fixative is one container labeled with the patient's name and designated left breast biopsy. The specimen consists of multiple irregular fragments of lozano soft tissue that in aggregate measure 1.3 x 0.5 x 0.1 cm. The specimen is totally submitted in one cassette. / AM:irish 12/17/17 TC:5 CPT: 65284
== END ==
PROVIDERS: Family Provider Family Medicine Geriatric Medicine; PCP Family Medicine Geriatric Medicine; Visit Provider Surgery
DX: N63.20 Unspecified lump in the left breast, unspecified quadrant (principal)
CPT/HCPCS: 88305

== ENCOUNTER → 2018-03-25 10:45 | Outpatient (CLI) | payer MEDICARE, SELFPAY ==
--- OUTSIDE RECORDS SUMMARY | 2018-05-18 16:12 | XMS RPT_ITS ---
:1945 Author Organization OHIP Support Name Relationship Address Phone BRIAN HENRIQUEZ Unavailable [id number] + [place] [address] MARIA TERESA HENRIQUEZ Unavailable . + [place] [address] R Unavailable Unavailable Unavailable BRIAN HENRIQUEZ Unavailable [phone] + [place] [address] OFELIA HENRIQUEZLAS Unavailable . + [place] [address] R Unavailable Unavailable Unavailable BRIAN HENRIQUEZ Unavailable [address] + [place] [address] OFELIA HENRIQUEZLAS Unavailable Unavailable + [place] [address] R Unavailable Unavailable Unavailable BRIAN HENRIQUEZ Unavailable [address] + [place] [address] MARIA TERESA HENRIQUEZ Unavailable . + [place] [address] R Unavailable Unavailable Unavailable BRIAN HENRIQUEZ Unavailable [address] + [place] [address] MARIA TERESA HENRIQUEZ Unavailable . + [place] [address] R Unavailable Unavailable Unavailable BRIAN HENRIQUEZ Unavailable [address] + [place] [address] OFELIA HENRIQUEZLAS Unavailable Unavailable + R Unavailable Unavailable Unavailable BRIAN HENRIQUEZ Unavailable [address] + [place] [address] OFELIA HENRIQUEZLAS Unavailable [address] + [place] [address] R Unavailable Unavailable Unavailable BRIAN HENRIQUEZ Unavailable [address] + [place] [address] FLORENCEMARIA TERESA Unavailable [address] + [place] [address] R Unavailable Unavailable Unavailable BRIAN HENRIQUEZ Unavailable [address] + [place] [address] MARIA TERESA HENRIQUEZ Unavailable [address] + [place] [address] R Unavailable Unavailable Unavailable BRIAN HENRIQUEZ Unavailable [address] + [place] [address] MARIA TERESA HENRIQUEZ Unavailable [address] + [place] [address] R Unavailable Unavailable Unavailable BRIAN HENRIQUEZ Unavailable [address] + [place] [address] MARIA TERESA HENRIQUEZ Unavailable [address] [phone] [place] [address] R Unavailable Unavailable Unavailable BRIAN HENRIQUEZ Unavailable [address] + [place] [address] MARIA TERESA HENRIQUEZ Unavailable [address] [phone] [place] [address] R Unavailable Unavailable Unavailable BRIAN HENRIQUEZ Unavailable [address] + [place] [address] FLORENCEMARIA TERESA GATICA Unavailable [address] [phone] [place] [address] R Unavailable Unavailable Unavailable BRIAN HENRIQUEZ Unavailable [address] + [place] [address] OFELIA HENRIQUEZLAS Unavailable [address] [phone] [place] [address] R Unavailable Unavailable Unavailable BRIAN HENRIQUEZ Unavailable [address] + [place] [address] OFELIA HENRIQUEZLAS Unavailable [address] [phone] [place] [address] R Unavailable Unavailable Unavailable BRIAN HENRIQUEZ Unavailable [address] + [place] [address] FLORENCEOFELIA GATICALAS Unavailable [address] [phone] [place] [address] R Unavailable Unavailable Unavailable BRIAN HENRIQUEZ Unavailable [address] + [place] [address] MARIA TERESA HENRIQUEZ Unavailable [address] [phone] [place] [address] R Unavailable Unavailable Unavailable BRIAN HENRIQUEZ Unavailable [address] + [place] [address] MARIA TERESA HENRIQUEZ Unavailable [address] [phone] [place] [address] R Unavailable Unavailable Unavailable BRIAN HENRIQUEZ Unavailable [address] + [place] [address] MARIA TERESA HENRIQUEZ Unavailable [address] [phone] [place] [address] R Unavailable Unavailable Unavailable BRIAN HENRIQUEZ Unavailable [address] + [place] [address] MARIA TERESA HENRIQUEZ Unavailable [address] [phone] [place] [address] R Unavailable Unavailable Unavailable BRIAN HENRIQUEZ Unavailable [address] + [place] [address] MARIA TERESA HENRIQUEZ Unavailable [address] [phone] [place] [address] R Unavailable Unavailable Unavailable BRIAN HENRIQUEZ Unavailable [address] + [place] [address] MARIA TERESA HENRIQUEZ Unavailable [address] [phone] [place] [address] R Unavailable Unavailable Unavailable Care Team Providers Name Role Phone CRISTINO, ZAIRA NABI Attending Unavailable CRISTINO, ZAIRA NABI Attending Unavailable CRISTINO, ZAIRA NABI Referring Unavailable CRISTINO, ZAIRA NABI Attending Unavailable CRISTINO, ZAIRA NABI Referring Unavailable CRISTINO, ZAIRA NABI Attending Unavailable CRISTINO, ZAIRA NABI Referring Unavailable CRISTINO, ZAIRA NABI Attending Unavailable CRISTINO, ZAIRA NABI Referring Unavailable Mikel, Alexi Chi Attending Unavailable Mikel, Alexi Chi Primary Care Unavailable Mikel, Alexi Chi Attending Unavailable Mikel, Alexi Chi Primary Care Unavailable Mikel, Alexi Chi Primary Care Unavailable Leroy White Admitting Unavailable WhitneykyLeroy Attending Unavailable Cindy, Leroy Admitting Unavailable TereletskyLeroy Attending Unavailable Mikel, Alexi Chi Primary Care Unavailable TereletsLeroy petty Consulting Unavailable Whitneyky, Leroy Admitting Unavailable Tereletsky, Leroy Attending Unavailable Mikel, Alexi Chi Primary Care Unavailable Tereletsky Leroy Consulting Unavailable Mikel, Alexi Chi Attending Unavailable Mikel, Alexi Chi Primary Care Unavailable Mikel, Alexi Chi Attending Unavailable Mikel, Alexi Chi Primary Care Unavailable Mikel, Alexi Chi Attending Unavailable Mikel, Alexi Chi Primary Care Unavailable Mikel, Alexi Chi Primary Care Unavailable Moore, Chico Attending Unavailable Mikel, Alexi Chi Attending Unavailable Mikel, Alexi Chi Primary Care Unavailable Mikel, Alexi Chi Primary Care Unavailable Mikel, Alexi Chi Attending Unavailable Imkel, Alexi Chi Referring Unavailable Mikel, Alexi Chi Attending Unavailable Mikel, Alexi Chi Primary Care Unavailable Mikel, Alexi Chi Attending Unavailable Mikel, Alexi Chi Referring Unavailable Mikel, Alexi Chi Primary Care Unavailable Mikel, Alexi Chi Attending Unavailable Mikel, Alexi Chi Referring Unavailable Mikel, Alexi Chi Primary Care Unavailable Mikel, Alexi Chi Attending Unavailable Mikel, Alexi Chi Primary Care Unavailable AshbyXuel Attending Unavailable Mikel, Alexi Chi Referring Unavailable Mikel, Alexi Chi Primary Care Unavailable Ashby, Jung Attending Unavailable Saadia, Jung Referring Unavailable Mikel, Alexi Chi Primary Care Unavailable AshbyXuel Attending Unavailable Mikel, Alexi Chi Referring Unavailable Mikel, Alexi Chi Primary Care Unavailable Ashby, Jung Attending Unavailable Mikel, Alexi Chi Referring Unavailable Mikel, Alexi Chi Primary Care Unavailable AshbyXuel Attending Unavailable Mikel, Alexi Chi Primary Care Unavailable Saadia, Jung Attending Unavailable Mikel, Alexi Chi Referring Unavailable Mikel, Alexi Chi Primary Care Unavailable Mikel, Alexi Chi Attending Unavailable Mikel, Alexi Chi Primary Care Unavailable PROBLEMS PROBLEMS DATE TYPE CONDITION / CODE ATTENDING STATUS SOURCE 12/17/2017 Unknown N63.20 - Jung Zee Active [facility] Unspecified lump Community in the left Hospital breast, Repository unspecified quadrant / N63.20(ICD-10) 11/29/2017 Active Abnormal weight CRISTINO, ZAIRA Active [facility] loss / [facility] [place] R63.4(ICD-10) Repository 08/27/2017 Unknown R63.0 - Anorexia / Mikel, Alexi Chi Active [facility] R63.0(ICD-10) [facility] Repository 07/24/2017 Active Dysphagia, ZAIRA APARICIO Active [facility] unspecified / [facility] [place] R13.10(ICD-10) Repository 05/31/2017 Unknown N39.0 - Urinary Mikel, Alexi Chi Active [place] tract infection, Community site not specified Hospital / N39.0(ICD-10) Repository 05/08/2017 Unknown I10 - Essential Mikel, Alexi Chi Active [facility] (primary) Community hypertension / Hospital I10(ICD-10) Repository PROCEDURES PROCEDURES No Procedure Records FoundRESULTS RESULTS Observed: 03/25/2018 Status: F Source: [place] RESPIRATORY PANEL 11:03 AM [facility] REPOSITORY RP PANEL ADENOVIRUS Not Detected HUMAN METAPHNEUMO Not Detected INFLUENZA A Not Detected INFLUENZA A (SUBTYPE H1) Not Detected INFLUENZA A (SUBTYPE H3) Not Detected INFLUENZA B Not Detected PARAINFLUENZA 1 Not Detected PARAINFLUENZA 2 Not Detected PARAINFLUENZA 3 Not Detected PARAINFLUENZA 4 Not Detected RHINOVIRUS Not Detected RSV A Not Detected RSV B Not Detected NAAT METHOD Testing was performed using nucleic acid amplification Performed By: #### M100.638 #### [facility] [address] [place] [address]. [place], [place], [id number] PROGRESS Observed: 03/05/2018 Status: COMPLETED Source: [place] 3:20 PM [facility] REPOSITORY HNO ID: [id number] Author: Zaira Aparicio Service: (none) Author Type: Physician Type: Progress Notes Filed: 03/05/2018 4:21 PM Note Text: DUSTIN Henriquez is a 72 year old female here today for Follow up of GERD/ dysphagia- dilated witjh balloon- no further significant dysphagia. Colonoscopy showed diverticulosis. Had Electro-destruction of hemorrhoids. Current Outpatient Prescriptions: VITAMIN D 50,000 unit capsule Take one capsule by mouth per week for 8 weeks then one capsule monthly thereafter spironolactone (ALDACTONE) 25 mg tablet meloxicam (MOBIC) 15 mg tablet Take 15 mg by mouth once daily. tolterodine (DETROL) 2 mg tablet Take 2 mg by mouth twice daily. esomeprazole (NEXIUM) 20 mg capsule Take 20 mg by mouth DAILY (6 AM). pregabalin (LYRICA) 75 mg capsule Take 75 mg by mouth twice daily. lisinopril (ZESTRIL, PRINIVIL) 10 mg tablet Take 1 tablet by mouth once daily. Aspirin 81 mg Tab Take 81 mg by mouth. naproxen sodium(ALEVE 220 MG TAB) 2 tabs q 4-6 hrs prn pain No current facility-administered medications for this visit. ALLERGIES Allergen Reactions - Acetaminophen Other: See Comments - Adhesive Tape (Arianna* Other: See Comments Heath skin - Bee Pollen Other: See Comments Swelling and throat closes - Latex Rash - Morphine Mental Status Change - Penicillins Rash - Vicodin [Hydrocodon* GI Upset Social History Substance Use Topics - Smoking status: Never Smoker - Smokeless tobacco: Never Used - Alcohol use No PAST MEDICAL HISTORY Diagnosis Date - Abnormal weight loss - Arthropathy, unspecified, site unspecified rheumatoid arthritis - neck, back, knees, hands - DVT (deep venous thrombosis) ([facility] 2003 - Esophageal reflux - Esophageal stenosis - Unspecified essential hypertension PAST SURGICAL HISTORY Procedure Laterality Date - APPENDECTOMY - COLONOSCOPY 04/02/2013 Multiple medium-mouthed diverticula were found in the sigmoid colon, normal biopsy, non bleeding internal hermorrhoid - COLONOSCOPY 11/29/2017 - EGD 05/15/2016 small hiatus hernia, motility disorder, acute gastritis - EGD DILATION 07/24/2017 Benign-appearing esophageal stenosis. Dilated - EGD W/O OR W/BRUSH/WASH 04/02/2013 EGD - EXCIS BREAST LESION 10/01/09 left excisional Bx - PAST SURGICAL HISTORY OF Breast Biopsies - 2 right , 3 left - REMOVAL GALLBLADDER 2005 Cholecystectomy - REMOVAL OF TONSILS,<12 Y/O Tonsillectomy - REPAIR ROTATOR CUFF,ACUTE Rotator cuff repair right arm - TOTAL ABDOM HYSTERECTOMY Hysterectomy, ADOLPH - 1 ovaries - TOTAL KNEE REPLACEMENT 2003,2007 Knee replacement, total Right and left FAMILY HISTORY Problem Relation Age of Onset - Breast Cancer Mother age 70 - Diabetes Father Parkinsons, HTN, CAD, [place] - Hypertension Father - Stroke Father - None Brother MVA age 13 - Diabetes Brother - Asthma Brother - None Brother - None Sister - Hypertension Brother - Hypertension Brother - Psychiatry Brother REVIEW OF SYSTEMS Review of Systems HENT: Positive for trouble swallowing. Cardiovascular: Positive for leg swelling. Gastrointestinal: Positive for anal bleeding. All other systems reviewed and are negative. PHYSICAL EXAM BP 140/70 Pulse 72 Ht 5' 0 (1.52m) Wt 186 lb (84.4kg) SpO2 94% BMI 36.33 kg/(m2). Physical Exam Constitutional: She is oriented to person, place, and time. She appears well-developed and well-nourished. HENT: Head: Normocephalic and atraumatic. Right Ear: External ear normal. Left Ear: External ear normal. Nose: Nose normal. Mouth/Throat: Oropharynx is clear and moist. Eyes: Pupils are equal, round, and reactive to light. Conjunctivae and EOM are normal. Neck: Normal range of motion. Neck supple. Cardiovascular: Normal rate, regular rhythm, normal heart sounds and intact distal pulses. Pulmonary/Chest: Effort normal and breath sounds normal. Abdominal: Soft. Bowel sounds are normal. Tender at LLQ Musculoskeletal: Normal range of motion. Neurological: She is alert and oriented to person, place, and time. She has normal reflexes. Skin: Skin is warm and dry. Psychiatric: She has a normal mood and affect. Her behavior is normal. Judgment and thought content normal. I have confirmed and edited as necessary, the PFSH, HPI and ROS obtained by others. ASSESSMENT: Gastroesophageal reflux disease without esophagitis (primary encounter diagnosis) Lower abdominal pain Esophageal dysphagia Diverticulosis of large intestine without hemorrhage PLAN: No orders found for this visit on 03/05/18. Return in about 1 year (around 03/05/2019). Contin. Celina Aparicio MD DATE: 03/05/18 TIME: 3:20 PM CNOV Observed: 03/05/2018 Status: COMPLETED Source: [place] 2:45 PM [facility] REPOSITORY Office Visit ([facility]) GLORY HENRIQUEZ ([id number]) 1945 F Date Time Provider Department 03/05/18 2:45 PM ZAIRA APARICIO [facility] During your visit today, we recorded the following information about you: Pulse Blood pressure Weight Height 72/minute 140/70 84.4 kg 1.524 m Zaira Aparicio MD 03/05/2018 4:21 PM Signed HPI Glory Henriquez is a 72 year old female here today for Follow up of GERD/ dysphagia- dilated witjh balloon- no further significant dysphagia. Colonoscopy showed diverticulosis. Had Electro-destruction of hemorrhoids. Current Outpatient Prescriptions: VITAMIN D 50,000 unit capsule Take one capsule by mouth per week for 8 weeks then one capsule monthly thereafter spironolactone (ALDACTONE) 25 mg tablet meloxicam (MOBIC) 15 mg tablet Take 15 mg by mouth once daily. tolterodine (DETROL) 2 mg tablet Take 2 mg by mouth twice daily. esomeprazole (NEXIUM) 20 mg capsule Take 20 mg by mouth DAILY (6 AM). pregabalin (LYRICA) 75 mg capsule Take 75 mg by mouth twice daily. lisinopril (ZESTRIL, PRINIVIL) 10 mg tablet Take 1 tablet by mouth once daily. Aspirin 81 mg Tab Take 81 mg by mouth. naproxen sodium(ALEVE 220 MG TAB) 2 tabs q 4-6 hrs prn pain No current facility-administered medications for this visit. ALLERGIES Allergen Reactions - Acetaminophen Other: See Comments - Adhesive Tape (Arianna* Other: See Comments Heath skin - Bee Pollen Other: See Comments Swelling and throat closes - Latex Rash - Morphine Mental Status Change - Penicillins Rash - Vicodin [Hydrocodon* GI Upset Social History Substance Use Topics - Smoking status: Never Smoker - Smokeless tobacco: Never Used - Alcohol use No PAST MEDICAL HISTORY Diagnosis Date - Abnormal weight loss - Arthropathy, unspecified, site unspecified rheumatoid arthritis - neck, back, knees, hands - DVT (deep venous thrombosis) ([facility]) 2003 - Esophageal reflux - Esophageal stenosis - Unspecified essential hypertension PAST SURGICAL HISTORY Procedure Laterality Date - APPENDECTOMY - COLONOSCOPY 04/02/2013 Multiple medium-mouthed diverticula were found in the sigmoid colon, normal biopsy, non bleeding internal hermorrhoid - COLONOSCOPY 11/29/2017 - EGD 05/15/2016 small hiatus hernia, motility disorder, acute gastritis - EGD DILATION 07/24/2017 Benign-appearing esophageal stenosis. Dilated - EGD W/O OR W/BRUSH/WASH 04/02/2013 EGD - EXCIS BREAST LESION 10/01/09 left excisional Bx - PAST SURGICAL HISTORY OF Breast Biopsies - 2 right , 3 left - REMOVAL GALLBLADDER 2006 Cholecystectomy - REMOVAL OF TONSILS,<12 Y/O Tonsillectomy - REPAIR ROTATOR CUFF,ACUTE Rotator cuff repair right arm - TOTAL ABDOM HYSTERECTOMY Hysterectomy, ADOLPH - 1 ovaries - TOTAL KNEE REPLACEMENT 2003,2007 Knee replacement, total Right and left FAMILY HISTORY Problem Relation Age of Onset - Breast Cancer Mother age 70 - Diabetes Father Parkinsons, HTN, CAD, [place] - Hypertension Father - Stroke Father - None Brother MVA age 13 - Diabetes Brother - Asthma Brother - None Brother - None Sister - Hypertension Brother - Hypertension Brother - Psychiatry Brother REVIEW OF SYSTEMS Review of Systems HENT: Positive for trouble swallowing. Cardiovascular: Positive for leg swelling. Gastrointestinal: Positive for anal bleeding. All other systems reviewed and are negative. PHYSICAL EXAM BP 140/70 Pulse 72 Ht 5' 0 (1.52m) Wt 186 lb (84.4kg) SpO2 94% BMI 36.33 kg/(m2). Physical Exam Constitutional: She is oriented to person, place, and time. She appears well-developed and well-nourished. HENT: Head: Normocephalic and atraumatic. Right Ear: External ear normal. Left Ear: External ear normal. Nose: Nose normal. Mouth/Throat: Oropharynx is clear and moist. Eyes: Pupils are equal, round, and reactive to light. Conjunctivae and EOM are normal. Neck: Normal range of motion. Neck supple. Cardiovascular: Normal rate, regular rhythm, normal heart sounds and intact distal pulses. Pulmonary/Chest: Effort normal and breath sounds normal. Abdominal: Soft. Bowel sounds are normal. Tender at LLQ Musculoskeletal: Normal range of motion. Neurological: She is alert and oriented to person, place, and time. She has normal reflexes. Skin: Skin is warm and dry. Psychiatric: She has a normal mood and affect. Her behavior is normal. Judgment and thought content normal. I have confirmed and edited as necessary, the PFSH, HPI and ROS obtained by others. ASSESSMENT: Gastroesophageal reflux disease without esophagitis (primary encounter diagnosis) Lower abdominal pain Esophageal dysphagia Diverticulosis of large intestine without hemorrhage PLAN: No orders found for this visit on 03/05/18. Return in about 1 year (around 03/05/2019). Contin. Nexium Zaira Aparicio MD DATE: 03/05/18 TIME: 3:20 PM Referring Provider: ZAIRA APARICIO [[id number]] Allergies As of Date: 03/05/2018 Noted Allergy Reaction ACETAMINOPHEN 01/12/2015 14 - Other: See Comments ADHESIVE TAPE (ROSINS) 01/18/2006 14 - Other: See Comments Comments: Heath skin BEE POLLEN 02/03/2005 14 - Other: See Comments Comments: Swelling and throat closes LATEX 11/03/2008 2 - Rash MORPHINE 04/01/2013 1 - Mental Status Change PENICILLINS 02/03/2005 2 - Rash VICODIN (HYDROCODONE-ACETAMINOPHE*02/03/2005 8 - GI Upset Date Reviewed: 03/05/2018 Reviewed by: Chantale WANG - Fully Assessed Reason for Visit: Abnormal weight loss [Other] Cmt: follow up Primary Visit Diagnosis:Gastroesophageal reflux disease without esophagitis [K21.9] Other Visit Diagnoses:Lower abdominal pain [R10.30] Esophageal dysphagia [R13.10] Diverticulosis of large intestine without hemorrhage [K57.30] Prescriptions as of 03/05/2018 Sig: VITAMIN D2 50,000 UNIT CAPSULE Take one capsule by mouth per* SPIRONOLACTONE 25 MG TABLET MELOXICAM 15 MG TABLET Take 15 mg by mouth once isaiah* TOLTERODINE 2 MG TABLET Take 2 mg by mouth twice isaiah* ESOMEPRAZOLE MAGNESIUM 20 MG * Take 20 mg by mouth DAILY (6 * PREGABALIN 75 MG CAPSULE Take 75 mg by mouth twice brant* LISINOPRIL 10 MG TABLET Take 1 tablet by mouth once d* ASPIRIN 81 MG TABLET Take 81 mg by mouth. * ALEVE 220 MG TABLET 2 tabs q 4-6 hrs prn pain Problem List As Of Date 03/05/2018 Noted Resolved ESOPHAGEAL REFLUX [K21.9] INVALID FOR* GENERAL OSTEOARTHROSIS [M15.9] INVALID FOR* PAIN IN JOINT, LOWER LEG [M25.569] INVALID FOR* IRRITABLE COLON [K58.9] INVALID FOR* Abnormal Mammogram, Unspecified [R92.8] INVALID FOR*12/30/2009 Lump or Mass in Breast [N63.0] INVALID FOR*12/30/2009 Essential hypertension, benign [I10] INVALID FOR* Abnormal mammogram, unspecified [R92.8] INVALID FOR* Fibrocystic breast [N60.19] INVALID FOR* Pain in unspecified hip [M25.559] INVALID FOR* Right-sided low back pain with right-sided scia*INVALID FOR* Pharyngoesophageal dysphagia [R13.14] INVALID FOR* Obesity, unspecified [E66.9] INVALID FOR* Vitamin D deficiency, unspecified [E55.9] INVALID FOR* Urinary tract infection, site not specified [N3*INVALID FOR* Multiple injuries [T07.XXXA] INVALID FOR* Rash and other nonspecific skin eruption [R21] INVALID FOR* Anorexia [R63.0] INVALID FOR* Pruritus, unspecified [L29.9] INVALID FOR* Pain in unspecified knee [M25.569] INVALID FOR* Urinary tract infection [N39.0] INVALID FOR* Localized edema [R60.0] INVALID FOR* Generalized abdominal pain [R10.84] INVALID FOR* Fibromyalgia [M79.7] INVALID FOR* Allergic contact dermatitis, unspecified cause *INVALID FOR* Diarrhea [R19.7] INVALID FOR* Medications Discontinued During This Encounter GAVILYTE-G 236-22.74-6.74 -5.86 gram* 0 10/07/2017 03/05/2018 Class: Historical Med Sig: as directed. Disc: Course of therapy completed Disposition: Return in about 1 year (around 03/05/2019). Follow-up and Disposition History Recorded Encounter Status:Closed by ZAIRA APARICIO MD on 03/05/18 SURGERY VISIT REPORT Observed: 12/17/2017 Status: F Source: [place] 7:52 AM [facility] [address] [place] [address] [address] [place] [address] OFFICE VISIT Date of Service: 12/15/17 MR#: [id number] Acct: [id number] Name: FLORENCEGLORY Faye Rep #: [id number] : 1945 Provider: Jung Zee MD Age/Sex: 72/F [facility] Status: Signed Intake Intake Visit Reasons: L BREAST BX Edge Banding Off Bearer Required: No Is patient in pain?: No Allergies latex Allergy (Verified 12/15/17 07:48) Swelling morphine Allergy (Verified 12/15/17 07:48) Other Penicillins Allergy (Verified 12/15/17 07:48) Hives hydrocodone bitartrate [From Vicodin] Adverse Reaction (Verified 12/15/17 07:48) Abd cramps/diarrhea Medications Gabapentin [Neurontin] 300 mg PO QHS 02/07/16 [History Confirmed 12/15/17] Lisinopril [Zestril] 10 mg PO DAILY 02/07/16 [History Confirmed 12/15/17] Spironolactone [Aldactone] 25 mg PO DAILY 02/07/16 [History Confirmed 12/15/17] Tolterodine Tartrate [Detrol] 2 mg PO DAILY 02/07/16 [History Confirmed 12/15/17] Esomeprazole Mag Trihydrate [Nexium] 40 mg PO BID 03/09/16 [History Confirmed 12/15/17] aspirin 81 mg tablet,delayed release 81 mg PO QDAY 11/14/17 [History Confirmed 12/15/17] [facility] Medical History Lightheadedness (Acute) Generalized abdominal pain (Acute) Diarrhea (Acute) Fibromyalgia (Chronic) Obesity (Chronic) Generalized osteoarthritis (Chronic) GERD (gastroesophageal reflux disease) (Chronic) Left breast lump (Acute) Surgical History History of bilateral knee replacement (Acute) History of hysterectomy (Acute) History of laparoscopic cholecystectomy (Acute) History of repair of right rotator cuff (Acute) History of tonsillectomy and adenoidectomy (Acute) history bilateral breast biopsies (Acute) Family History Father Diabetes Heart disease Mother Breast cancer Grandmother Cancer pancreatic cancer Social History Smoking Status: Never smoker alcohol intake: never substance use type: does not use HPI HPI HPI: GLORY HENRIQUEZ, is a 72 F who presents to the office today for Office Procedures Biopsy Provider Documentation Preoperative diagnosis: Left breast mass Postoperative diagnosis: The same Procedure: Ultrasound-guided needle core biopsy left breast mass Surgeon: Saadia Indications: The area that was felt like a hard mass really just feels like firm tissue at this point. I am going to amend my opinion and do a needle core biopsy of this as opposed to an excisional biopsy. Procedure: Patient had a firm tender area of the medial aspect of the left breast. It was approximately 6 cm away from the nipple areolar complex. On palpation it felt like firm tissue on ultrasound there was no discernible mass identified. The area looks slightly irregular on the ultrasound machine. But there was no shadowing to it. I prepped the breast with Betadine. I injected 1% lidocaine plain. A skin barrett was made. Under ultrasound guidance to needle core biopsies of this area were obtained. Under ultrasound guidance a small titanium clip was placed. Sterile dressings were applied and the patient tolerated the procedure well. Alert Brush Clearer Surveying Yes Biopsy Breast Biopsy: 27846 US Guidance Procedure Time Out Time Out Informed consent given: Yes Consent signed: Yes Time out checklist: patient, procedure, site marked/identified, positioning of patient, supplies available, allergies confirmed, team agrees on procedure Time out staff in room: Yes Time out verified: Yes Time out date: 12/15/17 Time out time: 07:43 Assessment AND Plan Orders Orders: Coding Level of Care Code Attention Brush Clearer Surveying Additional Codes Biopsy - Breast Biopsy: 65752 US Guidance (90724) 12/17/17 0752 <Electronically signed by Jung Zee MD> Date Jung Zee MD Cosign Signature: Date (if applicable) CC: BREAST BIOPSY Observed: 12/15/2017 Status: F Source: [place] (CHOOSE SITE) 8:00 AM [facility] REPOSITORY Patient: GLORY HENRIQUEZ : 1945 (72/F) Acct Num: [id number] Phys: Jung Zee MD Unit Num: [id number] Loc: [facility] Specimen: [id number] Received: 12/15/177 Spec Type: BREAST BX TISSUES TISSUES: Left breast, NOS GROSS DESCRIPTION Received in fixative is one container labeled with the patient's name and designated left breast biopsy. The specimen consists of multiple irregular fragments of lozano soft tissue that in aggregate measure 1.3 x 0.5 x 0.1 cm. The specimen is totally submitted in one cassette. / AM:irish 12/17/17 TC:5 CPT: 06644 HEADER OPERATION: Needle core biopsy of left breast PRE-OP DIAGNOSIS: Left breast mass, N63.20 TISSUE SUBMITTED: Left breast tissue ISCHEMIC TIME: <1 minute FIXATION TIME: 47 hours MICROSCOPIC DESCRIPTION Slides are reviewed. MICROSCOPIC DIAGNOSIS Left breast, core biopsy: Nonproliferative fibrocystic change. No evidence of malignancy. AM:irish 12/18/17 Signed Dieter Engle 12/18/17 <signature on file> Performed By: #### PBRBX #### [facility] [place], [address] SURGICAL PATHOLOGY Observed: 11/29/2017 Status: F Source: [place] 11:25 AM [facility] REPOSITORY Specimen originated from [facility] Specimen #: [id number] Submitting Physician: ZAIRA APARICIO FINAL DIAGNOSIS Anorectal junction, biopsy (A) - Fragments of squamous and colonic mucosa with hyperplastic changes. - Separate fragment of mucopurulent debris. - Negative for dysplasia and malignancy. JDR/AP/srgissel 11/30/2017 Romero Ybarra M.D. (Electronic Signature) SPECIMEN SUBMITTED A: ANAL-RECTUM JUNCTION, BIOPSY CLINICAL DATA pain/wt loss GROSS DESCRIPTION A. Received in formalin are two pieces of lozano, soft tissue aggregating to 0.5 x 0.2 x 0.2 cm. Totally submitted in one cassette. Gross examination performed at [facility], [address] [place] [address] 11/30/2017 12:45:48 AM Date of Report: 11/30/2017 Date of Procedure: 11/29/2017 Date of Receipt: 11/29/2017 Submitted by: ZAIRA APARICIO Location: [facility] Diagnostic interpretation performed at [facility], [address] [place] [address]. HISTORY PHYSICAL Observed: 11/29/2017 Status: COMPLETED Source: [place] 10:52 AM [facility] REPOSITORY HNO ID: [id number] Author: Zaira Aparicio Service: (none) Author Type: Physician Type: HANDP Filed: 11/29/2017 11:28 AM Note Text: HISTORY AND PHYSICAL Glory Henriquez, 72 year old female Current history and physical on file: No Is a new History and Physical required for today's visit? Yes Indication for procedure: Abdominal pain and weight loss PROCEDURE(S) SCHEDULED FOR: Colonoscopy with or without biopsies and with or without removal of polyps or lesions, dilation (any means), treatment of bleeding (any means), based on clinical findings. BASELINE BEHAVIOR: Calm BASELINE ORIENTATION: A AND O x3 All medications and allergies reviewed: Yes Skin Assessment: Warm dry muscus membranes pink Airway/Respiratory Assessment: Airway: visualization of the uvula- Yes Mouth: opening greater than 2 fingerbreadths- Yes Neck: full range of motion- Yes Breath sounds clear/equal- Yes Cardiac Assessment: Regular rate and rhythm without murmur Abdominal Assessment: Abdomen soft, non-tender, no masses or organomegaly. Sedation Plan: MAC Additional Comments: None Zaira Aparicio MD SURGERY VISIT REPORT Observed: 11/27/2017 Status: F Source: [place] 10:16 AM [facility] REPOSITORY [facility] [address] [place] [address]. [address] [place] [address] OFFICE VISIT Date of Service: 11/27/17 MR#: [id number] Acct: [id number] Name: GLORY HENRIQUEZ Rep #: [id number] : 1945 Provider: Jung Zee MD Age/Sex: 72/F [facility] Status: Signed Intake Vital Signs11/27/17 Height 5 ft 1 in 11/27/17 Weight: 186 lb Intake Visit Reasons: Discuss SX for Breast Lump Edge Banding Off Bearer Required: No Is patient in pain?: No Allergies latex Allergy (Verified 11/27/17 09:07) Swelling morphine Allergy (Verified 11/27/17 09:07) Other Penicillins Allergy (Verified 11/27/17 09:07) Hives hydrocodone bitartrate [From Vicodin] Adverse Reaction (Verified 11/27/17 09:07) Abd cramps/diarrhea Medications Gabapentin [Neurontin] 300 mg PO QHS 02/07/16 [History Confirmed 11/27/17] Lisinopril [Zestril] 10 mg PO DAILY 02/07/16 [History Confirmed 11/27/17] Spironolactone [Aldactone] 25 mg PO DAILY 02/07/16 [History Confirmed 11/27/17] Tolterodine Tartrate [Detrol] 2 mg PO DAILY 02/07/16 [History Confirmed 11/27/17] Esomeprazole Mag Trihydrate [Nexium] 40 mg PO BID 03/09/16 [History Confirmed 11/27/17] aspirin 81 mg tablet,delayed release 81 mg PO QDAY 11/14/17 [History Confirmed 11/27/17] [facility] Medical History Lightheadedness (Acute) Generalized abdominal pain (Acute) Diarrhea (Acute) Fibromyalgia (Chronic) Obesity (Chronic) Generalized osteoarthritis (Chronic) GERD (gastroesophageal reflux disease) (Chronic) Left breast lump (Acute) Surgical History History of bilateral knee replacement (Acute) History of hysterectomy (Acute) History of laparoscopic cholecystectomy (Acute) History of repair of right rotator cuff (Acute) History of tonsillectomy and adenoidectomy (Acute) history bilateral breast biopsies (Acute) Family History Father Diabetes Heart disease Mother Breast cancer Grandmother Cancer pancreatic cancer Social History Smoking Status: Never smoker alcohol intake: never substance use type: does not use HPI HPI HPI: GLORY HENRIQUEZ, is a 72 F who presents to the office today for evaluation for an attempted ultrasound-guided needle core biopsy of her left breast. Patsy however was unable to identify this area with the ultrasound in the radiology department I did obtained a formal ultrasound which did not see any abnormalities here however the patient is still feeling this area on the inner aspect of her left breast and is extremely concerned over it. ROS General General: Yes weight change and fatigue; no appetite, colon cancer, breast cancer or weakness HEENT HEENT: Yes difficulty swallowing; no eye injury, eye surgery, swollen glands or hoarseness Endo Endocrine: No thyroid disease, diabetes mellitus, thyroid cancer, Hair loss, heat intolerance or cold intolerance Skin Skin: No rash or changing moles Breast Breast: No left breast lump, right breast lump, nipple discharge, breast pain, abnormal mammogram, abnormal US or breast enlargement Musc Musculoskeletal: Yes back problems, arthritis and rheumatoid arthritis; no gout or joint pain Cardio Cardiovascular: Yes murmur and high blood pressure; no pacemaker, heart disease, atrial fibrillation, heart attack, heart stent, palpitations, shortness of breat with exertion or chest pain Psych Psychiatric: No depression, anxiety or hearing voices Resp Respiratory: No shortness of breath, No sleep apnea, No cough, No COPD, No asthma, No emphysema, No wheezing Gastro Gastrointestinal: No abdominal pain, No nausea or vomiting, No diarrhea, No constipation, No blood in stool, Yes acid reflux, Yes hemorrhoids, Yes ulcers, No gallbladder problem, No black,tarry stools Tad Hematologic: No blood thinners, No blood disorders, No bleeding, No anemia, No blood clots Neuro Neurologic: No weakness Exam Chest Breast Palpation: No nipple discharge Other: Palpation of the inner aspect of her left breast at approximately 7 o'clock position reveals a firm nodular area and despite the ultrasound being negative for clearly feels different than the surrounding breast tissue. I concur with the patient's concerns. Cardio Heart Sounds: murmur Assessment AND Plan Problems 1. Left breast mass N63.20 Plan My plan is to do a small excisional biopsy of this firm area of the left breast. Risk benefits been reviewed and the patient agrees to proceed. The patient understands that her breast discomfort is not going to be improved by this excisional biopsy. She however is far more concerned that she has an underlying malignancy that is not being seen by the current modalities (mammogram and ultrasound) that we have been doing. Coding Level of Care Code Off vis,est,level 2 Diagnoses Left breast mass N63.20 11/27/17 1016 <Electronically signed by Jung Zee MD> Date Jung Zee MD Cosigner Signature: Date (if applicable) CC: Alexi Galindo MD SURGERY VISIT REPORT Observed: 11/21/2017 Status: F Source: [place] 11:59 AM [facility] REPOSITORY [facility] [address] [place] [address] [address] [place] [address] OFFICE VISIT Date of Service: 11/14/17 MR#: [id number] Acct: [id number] Name: GLORY HENRIQUEZ Rep #: [id number] : 1945 Provider: Jung Zee MD Age/Sex: 72/F [facility] Status: Signed Intake Vital Signs11/14/17 Height 5 ft 1 in 11/14/17 Weight: 186 lb Intake Visit Reasons: Breast lump/US/MAMMO 11/08 [facility] Edge Banding Off Bearer Required: No Is patient in pain?: No Allergies latex Allergy (Verified 11/14/17 07:51) Swelling morphine Allergy (Verified 11/14/17 07:51) Other Penicillins Allergy (Verified 11/14/17 07:51) Hives hydrocodone bitartrate [From Vicodin] Adverse Reaction (Verified 11/14/17 07:51) Abd cramps/diarrhea Medications Gabapentin [Neurontin] 300 mg PO QHS 02/07/16 [History Confirmed 11/14/17] Lisinopril [Zestril] 10 mg PO DAILY 02/07/16 [History Confirmed 11/14/17] Spironolactone [Aldactone] 25 mg PO DAILY 02/07/16 [History Confirmed 11/14/17] Tolterodine Tartrate [Detrol] 2 mg PO DAILY 02/07/16 [History Confirmed 11/14/17] Esomeprazole Mag Trihydrate [Nexium] 40 mg PO BID 03/09/16 [History Confirmed 11/14/17] aspirin 81 mg tablet,delayed release 81 mg PO QDAY 11/14/17 [History Confirmed 11/14/17] [facility] Medical History Lightheadedness (Acute) Generalized abdominal pain (Acute) Diarrhea (Acute) Fibromyalgia (Chronic) Obesity (Chronic) Generalized osteoarthritis (Chronic) GERD (gastroesophageal reflux disease) (Chronic) Left breast lump (Acute) Surgical History History of bilateral knee replacement (Acute) History of hysterectomy (Acute) History of laparoscopic cholecystectomy (Acute) History of repair of right rotator cuff (Acute) History of tonsillectomy and adenoidectomy (Acute) history bilateral breast biopsies (Acute) Family History Father Diabetes Heart disease Mother Breast cancer Grandmother Cancer pancreatic cancer Social History Smoking Status: Never smoker alcohol intake: never substance use type: does not use HPI HPI HPI: GLORY HENRIQUEZ, is a 72 F who presents to the office today for presents to my office for evaluation for left breast mass. She has had pain and discomfort and pulling sensation on the inner aspect of her left breast going on for 2 months. She feels firmness in the area she has had no nipple discharge she cannot recall any trauma. Her mother had breast cancer and it presented exactly this way. She is very concerned that she herself may have underlying malignancy despite negative imaging at this time. Patient is undergone an ultrasound of the left breast on 11/08/2017 which was read as negative BI-RADS Category 1. ROS General General: Yes weight change and fatigue; no appetite, colon cancer, breast cancer or weakness HEENT HEENT: Yes difficulty swallowing; no eye injury, eye surgery, swollen glands or hoarseness Endo Endocrine: No thyroid disease, diabetes mellitus, thyroid cancer, Hair loss, heat intolerance or cold intolerance Skin Skin: No rash or changing moles Breast Breast: No left breast lump, right breast lump, nipple discharge, breast pain, abnormal mammogram, abnormal US or breast enlargement Musc Musculoskeletal: Yes back problems, arthritis and rheumatoid arthritis; no gout or joint pain Cardio Cardiovascular: Yes murmur and high blood pressure; no pacemaker, heart disease, atrial fibrillation, heart attack, heart stent, palpitations, shortness of breat with exertion or chest pain Psych Psychiatric: No depression, anxiety or hearing voices Resp Respiratory: No shortness of breath, No sleep apnea, No cough, No COPD, No asthma, No emphysema, No wheezing Gastro Gastrointestinal: No abdominal pain, No nausea or vomiting, No diarrhea, No constipation, No blood in stool, Yes acid reflux, Yes hemorrhoids, Yes ulcers, No gallbladder problem, No black,tarry stools Tad Hematologic: No blood thinners, No blood disorders, No bleeding, No anemia, No blood clots Neuro Neurologic: No system reviewed and no additional complaints, except as docu, No as per HPI, No abnormal walking, No abnormal hearing, No abnormal movements, No abnormal speech, No behavioral changes, No burning sensations, No confusion, No seizure-like activity, No unsteadiness, No dizziness, No localized weakness, No frequent falls, No headache(s), No lack of coordination, No loss of vision, No memory loss, Yes numbness, No other visual disturbances, No radiating pain, No restless legs, No sensory deficit, No fainting, Yes tingling, No tremor(s), No weakness, No other Exam HENMT Head: normal to inspection, normocephalic, atraumatic Mouth: moist mucous membranes, oropharynx normal Eyes General: appearance normal, both eyes and all related structures Sclera: sclerae normal Neck Neck: no lymphadenopathy noted, trachea midline Neck mass: No Thyroid: thyroid normal Lymphatic: no lymphadenopathy noted Chest Breast inspection: normal inspection of the breasts Breast Palpation: No nipple discharge Other: There is some slight firmness in the inner aspect of her left breast. No obvious discernible mass. Resp Other: Respiratory Exam: Deferred Cardio Heart Sounds: murmur Other: Cardiac Exam: Deferred GI Other: GI Exam: Deferred Other: Rectal Exam: Deferred Extrem Other: Extremity Exam: Deferred Assessment AND Plan Problems 1. Left breast mass N63.20 Plan I have discussed above with the patient. I have recommended ultrasound guided needle core breast biopsy. I have described the procedure to the patient. I have discussed with the patient that sometimes the ultrasound lesion may be artifact and is user dependent and therefore prior to undergoing the procedure, the patient will have a definitive US to ensure that the lesion is truly present and is not artifact. A marker clip will be placed to identify the location. Patient has been counseled to the risks/benefits of the procedure. I have explained the risks of the surgery, including but not limited to: infection, bleeding, injury to any blood vessels/nerves, scar tissue, missing the lesion, further surgery, etc. - the patient understands and agrees to proceed. I have answered all of the patient's questions to her satisfaction and she has no further questions. Coding Level of Care Code Off vis,new,level 3 Diagnoses Left breast mass N63.20 11/21/17 1159 <Electronically signed by Jung Zee MD> Date Jung Zee MD Cosigner Signature: Date (if applicable) CC: Alexi Galindo MD BREAST LIMITED Observed: 11/20/2017 Status: F Source: [place] UNILATERAL 12:09 PM [facility] REPOSITORY [facility] Imaging Services [address] [place] [address] Breast Limited Unilateral MR#: [id number] Acct: [id number] Name: GLORY HENRIQUEZ Rep #: [id number] : 1945 F 72 From: Peter Davidson MD PCP: Alexi Galindo MD, Chi Status: REG CLI Study: Breast Limited Unilateral Date of Exam: 11/20/17 Exam# [id number] Ordering Dr: Jung Zee MD STUDY: ULTRASOUND BREAST - LEFT REASON FOR EXAM: Female, 72 years old. Patient was scheduled for ultrasound-guided left breast biopsy. TECHNIQUE: Axial and longitudinal images of the LEFT breast were performed with a high resolution ultrasound transducer. COMPARISON: Comparison is made with prior sonogram dated November 08, 2017. FINDINGS: LEFT Breast: No sonographic abnormality was observed. The biopsy was canceled. US/Breast Limited Unilateral IMPRESSION: No sonographic abnormality is seen. ASSESSMENT CATEGORY: BIRADS Category 1: Negative. A letter regarding these results will be sent to the patient by the facility within 30 days. Electronically Signed: Peter Davidson MD at 13:35 EDT Tel [phone], Service support , CC: Jung Zee MD; Alexi Galindo MD Last Puller: Signed CBC W/DIFF, AUTOMATED Collected: 11/12/2017 Status: F Source: [place] 10:36 AM [facility] REPOSITORY TYPE CODE TESTS RESULT OUT OF RANGE REFERENCE UNITS LAB L100.1000 4.4-11.0 K/mm3 Normal WBC 6.6 LAB L100.1200 4.2-5.4 M/mm3 Normal RBC 5.09 LAB L100.1300 12.0-15.0 g/dl Normal HGB 13.9 LAB L100.1400 37-47 % Normal HCT 43.0 LAB L100.1500 81-99 fL Normal MCV 84.5 LAB L100.1600 27.0-32.0 pg Normal MCH 27.3 LAB L100.1700 32-36 g/gl Normal MCHC 32.3 LAB L100.1810 11.6-14.6 % High RDW CV 15.7 LAB L100.1820 35.1-43.9 fl High RDW SD 47.6 LAB L100.1900 150-450 K/mm3 Normal PLT 275 LAB L100.2000 6.2-12.0 fl Normal MPV 10.6 LAB L100.2100 47-70 % Normal NEUT% 62.5 LAB L100.2200 19-41 % Normal LY% 25.4 LAB L100.2300 0-10 % Normal MONO% 9.4 LAB L100.2400 0-5 % Normal EO% 2.0 LAB L100.2500 0-1 % Normal BASO% 0.5 LAB L100.2550 0.0-0.9 % Normal IM GRAN % 0.200 Result Comment: IG% - Immature Granulocytes (promyelocytes, myelocytes and metamyelocytes) > 1% indicates that a LEFT SHIFT is Present. LAB L100.2620 2.0-7.7 X10 3/uL Normal Absolute Neut 4.1 LAB L100.2720 0.83-4.51 X10 3/ul Normal Absolute Lymph 1.67 Performed By: #### L100.0100 #### [facility] [address] [place], [address] COMPREHENSIVE METABOLIC Collected: 11/12/2017 Status: F Source: [facility] 10:36 AM [facility] REPOSITORY TYPE CODE TESTS RESULT OUT OF RANGE REFERENCE UNITS LAB L501.0100 74-106 mg/dL Normal GLU 85 Result Comment: Please note revised GLUCOSE reference range effective 2017. LAB L501.1000 7-18 mg/dL Normal BUN 14 LAB L501.1100 0.55-1.02 mg/dL Normal CREAT,SERUM 0.83 Result Comment: The validity of the calculated GFR AND GFRAA in patients over 70 years has not been determined. Clinical correlation is essential. LAB L501.1110 >60 mL/min Normal EST GFR 73 Result Comment: Non- GFR Calc LAB L501.1115 >60 mL/min Normal EST GFR - AA 88 Result Comment: GFR Calc LAB L501.1300 10-20 RATIO Normal BUN/CRE 16.9 LAB L501.1500 6.4-8.2 g/dL T Normal PROT 7.6 LAB L501.1800 3.2-5.0 g/dL Normal ALB 3.2 LAB L501.1950 2.2-4.2 g/dL High GLOB 4.4 LAB L501.2000 0.9-2.4 RATIO Low A/G 0.7 LAB L501.2200 8.5-10.1 mg/dL CA Normal 9.3 LAB L501.4100 15-37 U/L Normal AST 20 LAB L501.4305 45-117 U/L Normal ALK P 110 LAB L501.4405 13-56 U/L Normal ALT 20 LAB L501.4600 0.20-1.00 mg/dL T Normal BILI 0.50 LAB L501.5300 136-145 mmol/L NA Normal 142 LAB L501.5600 3.5-5.1 mmol/L K Normal 3.7 LAB L501.5900 98-107 mmol/L CL Normal 107 LAB L501.6100 21.0-32.0 mmol/L Normal CO2 29.0 LAB L501.6200 5-15 Normal GAP 6 Performed By: #### L500.4050, L501.9520 #### [facility] [address] [facility] [place], [place], [address] THYROID STIM HORMONE Collected: 11/12/2017 Status: F Source: [place] (TSH) 10:36 AM [facility] REPOSITORY TYPE CODE TESTS RESULT OUT OF RANGE REFERENCE UNITS LAB L501.9520 0.358-3.74 uIU/mL Normal TSH 1.03 Performed By: #### L500.4050, L501.9520 #### [facility] [address] [facility] [place], [place], [address] VITAMIN D,25 HYDROXY Collected: 11/12/2017 Status: F Source: [place] 10:36 AM [facility] REPOSITORY TYPE CODE TESTS RESULT OUT OF REFERENCE UNITS RANGE LAB L506.1000 29.95-100.01 ng/mL Low Vitamin D 14.2 25-OH Result Comment: Vitamin D 25(OH) Status Range Deficiency <20 ng/mL (50nmol/L) Insuffciency 20 - 30 ng/mL (50 - 75 nmol/L) Sufficiency 30 - 100 ng/mL (75 - 250 nmol/L) Toxicity >100 ng/mL (>250 nmol/L) Performed By: #### L506.1000 #### [facility] [address] [facility] [place], [place], [address] HEPATITIS C ANTIBODIES Collected: 11/12/2017 Status: F Source: [place] 10:36 AM [facility] REPOSITORY TYPE CODE TESTS RESULT OUT OF RANGE REFERENCE UNITS LAB L3100.0650 0.0-0.9 s/co ratio Normal HEP C AB <0.1 Result Comment: Negative: < 0.8 Indeterminate: 0.8 - 0.9 Positive: > 0.9 The CDC recommends that a positive HCV antibody result be followed up with a HCV Nucleic Acid Amplification test (630622). Performed at: - [facility] [id number] A&P Mechanic: Brock Lopez PhD, Phone: [phone] Performed By: #### L3100.0625 #### [facility] (refer to report for specific site) refer to report for address and phone number BREAST LIMITED Observed: 11/08/2017 Status: F Source: [place] UNILATER[place] 9:26 AM [facility] REPOSITORY [facility] Imaging Services [address] [place] [id number] Breast Limited Unilateral MR#: [id number] Acct: [id number] Name: GLORY HENRIQUEZ Rep #: [id number] : 1945 F 72 From: Peter Davidson MD PCP: Mikel BENNETT,Alexi Cárdenas Status: REG CLI Study: Breast Limited Unilateral Date of Exam: 11/08/17 Exam# [id number] Ordering Dr: Alexi Galindo MD STUDY: ULTRASOUND BREAST - LEFT REASON FOR EXAM: Female, 72 years old. Palpable lump left breast. TECHNIQUE: Axial and longitudinal images of the LEFT breast were performed with a high resolution ultrasound transducer. COMPARISON: Comparison is made with prior mammogram done earlier today. FINDINGS: LEFT Breast: The medial half of the left breast was examined by ultrasound. There is homogeneous fibroglandular tissue. No solid or cystic mass lesion is seen. US/Breast Limited Unilateral IMPRESSION: Unremarkable sonogram of the medial aspect of the left breast. ASSESSMENT CATEGORY: BIRADS Category 1: Negative. A letter regarding these results will be sent to the patient by the facility within 30 days. Electronically Signed: Peter Davidson MD at 12:22 EDT Tel [phone], Service support , CC: Alexi Galindo MD Last Puller: Signed DIAG MAMM W/CAD, Observed: 11/08/2017 Status: F Source: [place] BIL[place] 9:26 AM [facility] REPOSITORY [facility] Imaging Services [address] [place] [address] DIAG MAMM W/CAD, BILAT MR#: [id number] Acct: [id number] Name: GLORY HENRIQUEZ Rep #: [id number] : 1945 F 72 From: Peter Davidson MD PCP: Alexi Galindo MD, Chi Status: REG CLI Study: DIAG MAMM W/CAD, BILAT Date of Exam: 11/08/17 Exam# [id number] Ordering Dr: Alexi Galindo MD MAMMOGRAPHY - BILATERAL DIAGNOSTIC REASON FOR EXAM: Female, 72 years old. Left breast lump. PERTINENT HISTORY: Mother with breast cancer. Aunt with breast cancer. History of prior bilateral excisional breast biopsies. TECHNIQUE: Digital bilateral breast radha (3D mammographic acquisition) in the CC and MLO projections. 2-D mediolateral oblique (MLO) and craniocaudad (CC) views of both breasts were obtained. CAD: Full Field Digital Mammography with Computer Added Detection was performed. COMPARISON: Comparison is made with prior study dated February 16, 2017 and February 02, 2015. FINDINGS: Breast Composition: The breasts are heterogeneously dense, which may obscure small masses. There are no dominant masses or suspicious calcifications. 2 tissue clip markers are seen in the right breast and are unchanged. Stable appearance of the small nodules in both breasts. No other significant abnormalities are identified. There has been no significant change since the prior study. BI/DIAG MAMM W/CAD, BILAT IMPRESSION: Stable bilateral diagnostic mammogram. With the patient's history of a palpable abnormality in the left breast, correlation with ultrasound is recommended. ASSESSMENT CATEGORY: BIRADS Category 0: Incomplete. Need additional imaging evaluation. A letter regarding these results will be sent to the patient by the facility within 30 days. Approximately 10% of breast cancers are not detected by mammography. A normal mammogram should not delay biopsy of a clinically suspicious abnormality. Electronically Signed: Peter Davidson MD at 12:24 EDT Tel [phone], Service support , CC: Alexi Galindo MD Last Puller: Signed VENOUS DUPLEX LOWER Observed: 10/27/2017 Status: F Source: [place] 3:35 PM [facility] REPOSITORY [facility] Cardiovascular Services [address] [place] [id number] Venous Duplex US - Pedro Extrem 10/26/17 1102 MR#: [id number] Acct: [id number] Name: GLORY HENRIQUEZ Rep #: [id number] : 1945 72 From: Nikolai Doherty MD Attending Dr: Mikel BENNETT,Alexi Cárdenas Status: REG CLI Ordering Dr: Alexi Galindo MD Date: 10/26/17 Location: [facility] Sex: F C Admitted: Reason For Study: EDEMA RIGHT LEFT GSV is normal. GSV is normal. CFV is compressible, spontaneous, phasic, CFV is compressible, spontaneous, phasic, competent and demonstrates normal competent, and demonstrates normal augmentation. augmentation. FV is compressible, spontaneous, phasic, FV is compressible, spontaneous, phasic, competent and demonstrates normal competent and demonstrates normal augmentation. augmentation. POP V is compressible, spontaneous, phasic, POP V is compressible, spontaneous, phasic, competent and demonstrates normal competent and demonstrates normal augmentation. augmentation. T/P Trunk is compressible. T/P Trunk is compressible. PTV is compressible. PTV is compressible. RT PerV is compressible. LT PerV is compressible. Procedure Exam performed in department. A preliminary report was called and/or faxed to DR GALINDO. Interpretation Summary Deep veins of the lower extremities are bilaterally patent and compressible segmentally. There is no evidence of deep vein thrombosis on either side. Valvular competence appears intact within the proximal deep venous systems bilaterally. The greater saphenous veins appear bilaterally patent and compressible segmentally. Ordering Physician: Alexi Galindo Referring Physician: Alexi Galindo Chi Performed By: Charity Mendez, RDCS, RVT 10/27/17 1534 Date Nikolai Doherty MD CC: Alexi Galindo MD Date Dictated: 10/26/17 1102 Date Transcribed: 10/27/17 153 Last Puller: Signed L/S SPINE W BEND Observed: 10/26/2017 Status: F Source: [place] MIN 6 VW 10:34 AM [facility] REPOSITORY [facility] Imaging Services [address] [place] [id number] L/S Spine w Bend Min 6 Vw MR#: [id number] Acct: [id number] Name: GLORY HENRIQUEZ Rep #: [id number] : 1945 F 72 From: Amos Jasso MD PCP: Alexi Galindo MD, Chi Status: REG CLI Study: L/S Spine w Bend Min 6 Vw Date of Exam: 10/26/17 Exam# [id number] Ordering Dr: Alexi Galindo MD STUDY: X-RAY - LUMBOSACRAL SPINE REASON FOR EXAM: Female, 72 years old. Back pain extending into right side of pelvis times several years TECHNIQUE: 9 view(s) of the lumbosacral spine were obtained. COMPARISON: Previous study of 12/21/2015 FINDINGS: Normal lumbar lordosis. There is a mild thoracolumbar levoscoliosis. There is a grade 1 anterolisthesis of L4 relative to L5. There is diffuse demineralization with multi-level endplate spondylosis. There is multi-level degenerative disc disease with multi- level disc space narrowing. Normal bilateral sacral ala, sacroiliac joints, and visualized sacrum. Normal visualized soft tissue structures. RAD/L/S Spine w Bend Min 6 Vw IMPRESSION: Degenerative changes as detailed above. Grade 1 anterolisthesis of L4 relative to L5. Findings are similar to the previous study of 12/21/2015. Electronically Signed: Amos Jasso MD at 20:53 EDT , Service support , CC: Alexi Galindo MD Last Puller: Signed CNCO Observed: 10/23/2017 Status: COMPLETED Source: [place] 12:00 AM [facility] REPOSITORY Letter Text Colonoscopy (MIRALAX - SPLIT DOSE) Instructions Appointment Date: 11/29/17 At 11:00 AM Facility: [place] [address] Arrive At: 10:15 AM Special instructions: yes To ensure a successful exam, please follow all instructions carefully. You MUST arrange a ride for the day of your exam. If you fail to arrange acceptable transportation, your procedure will need to be rescheduled. Please bring a list of all your current medications, including any dorj-zwx-gyxczwn medications with you. If you must cancel or reschedule your appointment, please call our office at [phone] as soon as possible. DIABETIC PATIENTS Use G2 (Gatorade 2) Take only 1/2 of your morning dose of insulin or tablets the day before your exam. Do not take any more of your diabetic medications until the procedure is over and you have resumed eating again. Drink regular liquids (not diabetic) and monitor your sugar throughout the day you are on clear liquids. If your sugar gets too low, drink some apple juice. PURCHASE THE FOLLOWING SUPPLIES AT YOUR LOCAL PHARMACY: 4 Dulcolax laxative tablets containing 5mg of Bisacodyl each (NOT Dulcolax stool softener) One 8.3oz bottle of Miralax (238 grams) or generic equivalent. 64 oz clear liquid (NOT RED). Gatorade, G2, Gatorade Ice, Powerade or Powerade Zero are acceptable. 7 DAYS BEFORE YOUR COLONOSCOPY: If you take aspirin or NSAIDS such as Advil, Motrin, Celebrex or Ibuprofen, you may continue to take them as usual unless otherwise instructed by your physician. You should discuss this with your physician in advance of the procedure. Ask your doctor for specific instructions if you take a blood thinner like Plavix, Pradaxa, Clopidogrel, Coumadin, Warfarin, Effient, Prasugrel or Lovenox. 3 DAYS BEFORE YOUR COLONOSCOPY: Stop eating all nuts, seeds and popcorn. 1 DAY BEFORE YOUR COLONOSCOPY: Begin a clear liquid diet. Drink at least 8 glasses of water during the day to avoid dehydration. At 5pm, take 4 Dulcolax tablets. Mix 64 oz liquid with 8.[address] in the refrigerator (DO NOT ADD ICE) Ar 6pm, drink 32 oz of the Miralax/Gatorade solution. 4 hours prior to the procedure, drink the remaining 32 oz of the Miralax/Gatorade solution. Clear Liquid: Not Clear Liquid Gatorade, Pedialyte or Powerade No red items of any kind Clear broth or bouillon No alcohol Coffee or tea (no milk or non-dairy creamer) No milk or non-dairy creamers Carbonated and non-carbonated soft drinks No noodles or vegetables in soup Ambrosio-Aid or other fruit flavored drinks No juice with pulp Strained fruit juices No liquid you cannot see through Jello, popsicles, hard candy DAY OF YOUR COLONOSCOPY: You may take all of your morning medications as usual with 4 oz of water up to 3 hours before your procedure. 2 hours before, stop drinking all clear liquids. You are ready for the exam if you followed all instructions and your stool is no longer formed, but clear or yellow liquid. COLON CLEANSING TIPS 1. Stay near a toilet! You will have diarrhea, which can be quite sudden. This is normal. 3. It is common to experience abdominal discomfort until the stool has flushed from your colon (this may take 2 to 4 hours, and occasionally significantly longer). 2. Rarely, people may experience nausea or vomiting with the prep. If this occurs, give yourself a 30-90 minute break, rinse your mouth or brush your teeth, then continue drinking the prep solution. 4. Anal skin irritation or a flare of hemorrhoidal inflammation may occur and can be treated with a variety of over the counter remedies including hydrocortisone creams, baby wipes or Tucks pads. Avoid products containing alcohol. If you have a prescription for hemorrhoid cream, you may use it. Do not use suppositories. VIANNEY Observed: 08/28/2017 Status: COMPLETED Source: [place] 2:30 PM [facility] REPOSITORY Office Visit ([facility]) GLORY HENRIQUEZ ([id number]) 1945 F Date Time Provider Department 08/28/17 2:30 PM ZAIRA APARICIO [facility] During your visit today, we recorded the following information about you: Pulse Blood pressure Weight Height 80/minute 126/80 85.7 kg 1.524 m Zaira Aparicio 08/28/2017 4:05 PM Signed Recheck (EGD) HPI Glory Faye Florence is a 72 year old female here today for follow up 07/24/17 EGD with dilation done for patient complaint of dysphagia. Findings were moderately severe, benign appearing stenosis, normal stomach. Swallowing Generally better. 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 No dilation was performed by Dr. Bradford. Esophagram- peristalsis maintained, small SHH, ba pill hesitated at lower esophagus temporarily, No achalasia. Today patient reports she is having some severe abdominal cramping, no bloating, no bowel problems. No certain triggers, may wake her from sleep, no difference in meal times or bowel habits. May last from all day, then not appear for several days. Has been on Bentyl in the past without relief. Radioisotope gastric emptying study 2 wks at [facility]. Was neg. Dr. Galindo suggested colonoscopy. Last colonoscopy done by Dr. Yosvany Koo in 2012. Current Outpatient Prescriptions: spironolactone (ALDACTONE) 25 mg tablet meloxicam (MOBIC) 15 mg tablet Take 15 mg by mouth once daily. tolterodine (DETROL) 2 mg tablet Take 2 mg by mouth twice daily. esomeprazole (NEXIUM) 20 mg capsule Take 20 mg by mouth DAILY (6 AM). pregabalin (LYRICA) 75 mg capsule Take 75 mg by mouth twice daily. lisinopril (ZESTRIL, PRINIVIL) 10 mg tablet Take 1 tablet by mouth once daily. Aspirin 81 mg Tab Take 81 mg by mouth. naproxen sodium(ALEVE 220 MG TAB) 2 tabs q 4-6 hrs prn pain peg 3350-Electrolytes (GOLYTELY) 236-22.74-6.74 -5.86 gram suspension Take as directed No current facility-administered medications for this visit. ALLERGIES Allergen Reactions - Acetaminophen Other: See Comments - Adhesive Tape (Arianna* Other: See Comments Heath skin - Bee Pollen Other: See Comments Swelling and throat closes - Latex Rash - Morphine Mental Status Change - Penicillins Rash - Vicodin [Hydrocodon* GI Upset Social History Substance Use Topics - Smoking status: Never Smoker - Smokeless tobacco: Never Used - Alcohol use No PAST MEDICAL HISTORY Diagnosis Date - Arthropathy, unspecified, site unspecified rheumatoid arthritis - neck, back, knees, hands - DVT (deep venous thrombosis) ([facility]) 2003 - Esophageal reflux - Unspecified essential hypertension PAST SURGICAL HISTORY Procedure Laterality Date - APPENDECTOMY - COLONOSCOPY 04/02/2013 Multiple medium-mouthed diverticula were found in the sigmoid colon, normal biopsy, non bleeding internal hermorrhoid - EGD 05/15/2016 small hiatus hernia, motility disorder, acute gastritis - EGD DILATION 07/24/2017 Benign-appearing esophageal stenosis. Dilated - EGD W/O OR W/BRUSH/WASH 04/02/2013 EGD - EXCIS BREAST LESION 10/01/09 left excisional Bx - PAST SURGICAL HISTORY OF Breast Biopsies - 2 right , 3 left - REMOVAL GALLBLADDER 2006 Cholecystectomy - REMOVAL OF TONSILS,<12 Y/O Tonsillectomy - REPAIR ROTATOR CUFF,ACUTE Rotator cuff repair right arm - TOTAL ABDOM HYSTERECTOMY Hysterectomy, ADOLPH - 1 ovaries - TOTAL KNEE REPLACEMENT 2003,2007 Knee replacement, total Right and left FAMILY HISTORY Problem Relation Age of Onset - Breast Cancer Mother age 70 - Diabetes Father Parkinsons, HTN, CAD, [place] - Hypertension Father - Stroke Father - None Brother MVA age 13 - Diabetes Brother - Asthma Brother - None Brother - None Sister - Hypertension Brother - Hypertension Brother - Psychiatry Brother REVIEW OF SYSTEMS Review of Systems Constitutional: Positive for appetite change and unexpected weight change. Gastrointestinal: Positive for abdominal pain. All other systems reviewed and are negative. PHYSICAL EXAM BP 126/80 Pulse 80 Ht 5' 0 (1.52m) Wt 189 lb (85.7kg) BMI 36.91 kg/(m2). Physical Exam Constitutional: She is oriented to person, place, and time. She appears well-developed and well-nourished. HENT: Head: Normocephalic and atraumatic. Right Ear: External ear normal. Left Ear: External ear normal. Nose: Nose normal. Mouth/Throat: Oropharynx is clear and moist. Eyes: Conjunctivae and EOM are normal. Pupils are equal, round, and reactive to light. Neck: Normal range of motion. Neck supple. Cardiovascular: Normal rate, regular rhythm, normal heart sounds and intact distal pulses. Pulmonary/Chest: Effort normal and breath sounds normal. Abdominal: Soft. Bowel sounds are normal. Musculoskeletal: Normal range of motion. Neurological: She is alert and oriented to person, place, and time. She has normal reflexes. Skin: Skin is warm and dry. Psychiatric: She has a normal mood and affect. Her behavior is normal. Judgment and thought content normal. ASSESSMENT: Generalized abdominal pain (primary encounter diagnosis) Abnormal weight loss PLAN: Office Visit on 08/28/17 -COLONOSCOPY - DIAGNOSTIC No Follow-up on file. Zaira Aparicio DATE: 08/28/17 TIME: 4:04 PM I have confirmed and edited as necessary, the PFSH, HPI and ROS obtained by others. Amy Velasquez Ma Referring Provider: ZAIRA APARICIO [[id number]] Allergies As of Date: 08/28/2017 Noted Allergy Reaction ACETAMINOPHEN 01/12/2015 14 - Other: See Comments ADHESIVE TAPE (ROSINS) 01/18/2006 14 - Other: See Comments Comments: Heath skin BEE POLLEN 02/03/2005 14 - Other: See Comments Comments: Swelling and throat closes LATEX 11/03/2008 2 - Rash MORPHINE 04/01/2013 1 - Mental Status Change PENICILLINS 02/03/2005 2 - Rash VICODIN (HYDROCODONE-ACETAMINOPHE*02/03/2005 8 - GI Upset Date Reviewed: 08/28/2017 Reviewed by: Zaira Aparicio - Fully Assessed Reason for Visit: Recheck [92] Cmt: EGD Reason For Visit History Recorded Primary Visit Diagnosis:Generalized abdominal pain [R10.84] Other Visit Diagnosis:Abnormal weight loss [R63.4] Order(s):COLONOSCOPY - DIAGNOSTIC [[id number]] Order #: [id number] FUTURE peg 3350-Electrolytes (GOLYTELY) 236-22.74-6.74 - 5.86 gram suspensionTake as directedDisp: 1 BottleRfl: 0 SHALINI PT ED DIGESTIVE DISEASES [2390675] Order #: [id number]. #:[id number]: [id number] Prescriptions as of 08/28/2017 Sig: SPIRONOLACTONE 25 MG TABLET MELOXICAM 15 MG TABLET Take 15 mg by mouth once isaiah* TOLTERODINE 2 MG TABLET Take 2 mg by mouth twice isaiah* ESOMEPRAZOLE MAGNESIUM 20 MG * Take 20 mg by mouth DAILY (6 * PREGABALIN 75 MG CAPSULE Take 75 mg by mouth twice brant* LISINOPRIL 10 MG TABLET Take 1 tablet by mouth once d* ASPIRIN 81 MG TABLET Take 81 mg by mouth. * ALEVE 220 MG TABLET 2 tabs q 4-6 hrs prn pain PEG 3350-ELECTROLYTES 236 GRA* Take as directed Problem List As Of Date 08/28/2017 Noted Resolved ESOPHAGEAL REFLUX [K21.9] INVALID FOR* GENERAL OSTEOARTHROSIS [M15.9] INVALID FOR* PAIN IN JOINT, LOWER LEG [M25.569] INVALID FOR* IRRITABLE COLON [K58.9] INVALID FOR* Abnormal Mammogram, Unspecified [R92.8] INVALID FOR*12/30/2009 Lump or Mass in Breast [N63.0] INVALID FOR*12/30/2009 Essential hypertension, benign [I10] INVALID FOR* Abnormal mammogram, unspecified [R92.8] INVALID FOR* Fibrocystic breast [N60.19] INVALID FOR* Pain in unspecified hip [M25.559] INVALID FOR* Right-sided low back pain with right-sided scia*INVALID FOR* Pharyngoesophageal dysphagia [R13.14] INVALID FOR* Obesity, unspecified [E66.9] INVALID FOR* Vitamin D deficiency, unspecified [E55.9] INVALID FOR* Urinary tract infection, site not specified [N3*INVALID FOR* Multiple injuries [T07.XXXA] INVALID FOR* Rash and other nonspecific skin eruption [R21] INVALID FOR* Anorexia [R63.0] INVALID FOR* Pruritus, unspecified [L29.9] INVALID FOR* Pain in unspecified knee [M25.569] INVALID FOR* Urinary tract infection [N39.0] INVALID FOR* Localized edema [R60.0] INVALID FOR* Generalized abdominal pain [R10.84] INVALID FOR* Fibromyalgia [M79.7] INVALID FOR* Allergic contact dermatitis, unspecified cause *INVALID FOR* Diarrhea [R19.7] INVALID FOR* Prescriptions ordered this encounter Disp Refills Start End PEG 3350-ELECTROLYTES 236 GRAM-22.74* 1 Malick* 0 08/28/2017 08/29/2017 Sig: Take as directed Medications Discontinued During This Encounter codeine-guaiFENesin (ROBITUSSIN AC) * 04/02/2017 08/28/2017 Class: Historical Med Sig: Disc: Reason for discontinue is not on file. Follow-up and Disposition History Recorded Encounter Status:Closed by ZAIRA APARICIO MD on 08/28/17 PROGRESS Observed: 08/28/2017 Status: COMPLETED Source: [place] 2:14 PM [facility] REPOSITORY O ID: [id number] Author: Zaira Aparicio Service: (none) Author Type: Physician Type: Progress Notes Filed: 08/28/2017 4:05 PM Note Text: Recheck (EGD) HPI Glory Henriquez is a 72 year old female here today for follow up 4/3/18 EGD with dilation done for patient complaint of dysphagia. Findings were moderately severe, benign appearing stenosis, normal stomach. Swallowing Generally better. EGD in 2 showed mainly motility disorder. No dilation was performed by Dr. Bradford. Esophagram- peristalsis maintained, small SHH, ba pill hesitated at lower esophagus temporarily, No achalasia. Today patient reports she is having some severe abdominal cramping, no bloating, no bowel problems. No certain triggers, may wake her from sleep, no difference in meal times or bowel habits. May last from all day, then not appear for several days. Has been on Bentyl in the past without relief. Radioisotope gastric emptying study 2 wks at [facility]. Was neg. Dr. Galindo suggested colonoscopy. Last colonoscopy done by Dr. Yosvany Koo in 2012. Current Outpatient Prescriptions: spironolactone (ALDACTONE) 25 mg tablet meloxicam (MOBIC) 15 mg tablet Take 15 mg by mouth once daily. tolterodine (DETROL) 2 mg tablet Take 2 mg by mouth twice daily. esomeprazole (NEXIUM) 20 mg capsule Take 20 mg by mouth DAILY (6 AM). pregabalin (LYRICA) 75 mg capsule Take 75 mg by mouth twice daily. lisinopril (ZESTRIL, PRINIVIL) 10 mg tablet Take 1 tablet by mouth once daily. Aspirin 81 mg Tab Take 81 mg by mouth. naproxen sodium(ALEVE 220 MG TAB) 2 tabs q 4-6 hrs prn pain peg 3350-Electrolytes (GOLYTELY) 236-22.74-6.74 -5.86 gram suspension Take as directed No current facility-administered medications for this visit. ALLERGIES Allergen Reactions - Acetaminophen Other: See Comments - Adhesive Tape (Arianna* Other: See Comments Heath skin - Bee Pollen Other: See Comments Swelling and throat closes - Latex Rash - Morphine Mental Status Change - Penicillins Rash - Vicodin [Hydrocodon* GI Upset Social History Substance Use Topics - Smoking status: Never Smoker - Smokeless tobacco: Never Used - Alcohol use No PAST MEDICAL HISTORY Diagnosis Date - Arthropathy, unspecified, site unspecified rheumatoid arthritis - neck, back, knees, hands - DVT (deep venous thrombosis) ([facility]) 2003 - Esophageal reflux - Unspecified essential hypertension PAST SURGICAL HISTORY Procedure Laterality Date - APPENDECTOMY - COLONOSCOPY 04/02/2013 Multiple medium-mouthed diverticula were found in the sigmoid colon, normal biopsy, non bleeding internal hermorrhoid - EGD 05/15/2016 small hiatus hernia, motility disorder, acute gastritis - EGD DILATION 07/24/2017 Benign-appearing esophageal stenosis. Dilated - EGD W/O OR W/BRUSH/WASH 04/02/2013 EGD - EXCIS BREAST LESION 10/01/09 left excisional Bx - PAST SURGICAL HISTORY OF Breast Biopsies - 2 right , 3 left - REMOVAL GALLBLADDER 2005 Cholecystectomy - REMOVAL OF TONSILS,<12 Y/O Tonsillectomy - REPAIR ROTATOR CUFF,ACUTE Rotator cuff repair right arm - TOTAL ABDOM HYSTERECTOMY Hysterectomy, ADOLPH - 1 ovaries - TOTAL KNEE REPLACEMENT 2003,2007 Knee replacement, total Right and left FAMILY HISTORY Problem Relation Age of Onset - Breast Cancer Mother age 70 - Diabetes Father Parkinsons, HTN, CAD, [place] - Hypertension Father - Stroke Father - None Brother MVA age 13 - Diabetes Brother - Asthma Brother - None Brother - None Sister - Hypertension Brother - Hypertension Brother - Psychiatry Brother REVIEW OF SYSTEMS Review of Systems Constitutional: Positive for appetite change and unexpected weight change. Gastrointestinal: Positive for abdominal pain. All other systems reviewed and are negative. PHYSICAL EXAM BP 126/80 Pulse 80 Ht 5' 0 (1.52m) Wt 189 lb (85.7kg) BMI 36.91 kg/(m2). Physical Exam Constitutional: She is oriented to person, place, and time. She appears well-developed and well-nourished. HENT: Head: Normocephalic and atraumatic. Right Ear: External ear normal. Left Ear: External ear normal. Nose: Nose normal. Mouth/Throat: Oropharynx is clear and moist. Eyes: Conjunctivae and EOM are normal. Pupils are equal, round, and reactive to light. Neck: Normal range of motion. Neck supple. Cardiovascular: Normal rate, regular rhythm, normal heart sounds and intact distal pulses. Pulmonary/Chest: Effort normal and breath sounds normal. Abdominal: Soft. Bowel sounds are normal. Musculoskeletal: Normal range of motion. Neurological: She is alert and oriented to person, place, and time. She has normal reflexes. Skin: Skin is warm and dry. Psychiatric: She has a normal mood and affect. Her behavior is normal. Judgment and thought content normal. ASSESSMENT: Generalized abdominal pain (primary encounter diagnosis) Abnormal weight loss PLAN: Office Visit on 08/28/17 -COLONOSCOPY - DIAGNOSTIC No Follow-up on file. Zaira Aparicio DATE: 08/28/17 TIME: 4:04 PM I have confirmed and edited as necessary, the PFSH, HPI and ROS obtained by others. Amy CRESPO Observed: 08/28/2017 Status: COMPLETED Source: [place] 12:00 AM [facility] REPOSITORY Letter Text COLONOSCOPY-GOLYTELY NO SOLID FOOD THE DAY BEFORE THIS EXAM Appointment Date: 10/18/17 at 9:00 AM Facility: [facility]- [address] [place] [id number] Arrive At: 8:15 AM Special Instructions: yes You must have a responsible adult to drive you home and assist you at home while you finish recovering from your sedation. Please bring only one person with you. 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 Arrive 30-45 minutes before your procedure time. Purchase at the Pharmacy: Fill prescription for Golytely and 4 Dulcolax tablets. THE DAY BEFORE YOUR EXAM: 1. FOLLOW A CLEAR LIQUID DIET ALL DAY. 2. At 1:00PM, take 4 Dulcolax tablets. 3. At 5:00PM, start drinking solution. Drink a total of eight 8 oz glasses, one every 15-20 minutes. Please put the rest of the solution in the refrigerator for tomorrow morning. THE DAY OF YOUR EXAM 1. At 8:00 AM (four hours before your procedure) : drink one 8 oz glass every 15-20 minutes. Drink a total of four 8 oz glasses. Discard the remainder of the solution. 2. DO NOT DRINK ANYTHING ELSE AFTER THIS STEP IS COMPLETED. Nothing by mouth including clear liquids, food, gum and hard candy. 5 DAYS BEFORE EXAM STOP TAKING ASPIRIN OR ASPIRIN CONTAINING PRODUCTS, VITAMIN E AND IRON, BLOOD THINNERS SUCH COUMADIN, PLAVIX, AGGRENOX. DIABETICS ONLY Take only 1/2 of your daily dose of insulin or tablets the day before your exam. Do not take any more of your diabetic medications until the procedure is over and you have resumed eating again. Drink regular liquids, not diabetic and monitor your sugar throughout the day you are on clear liquids. If your sugar gets too low, drink some apple juice. It is very important that you drink all of the solution that we tell you to drink, if you do not complete the prep, your procedure may be cancelled. Any questions, please call our office at [phone] Ext [phone] or [phone]. GASTRIC EMPTYING Observed: 08/15/2017 Status: F Source: [facility] [facility] 12:54 PM [facility] REPOSITORY [facility] [facility] [address] [place] [address] Gastric Emptying Study MR#: [id number] Acct: [id number] Name: GLORY HENRIQUEZ Rep #: [id number] : 1945 F 72 From: Igor Alvarez DO PCP: Mikel BENNETT,Alexi Cárdenas Status: REG CLI Study: Gastric Emptying Study Date of Exam: 08/15/17 Exam# [id number] Ordering Dr: Alexi Galindo MD CLINICAL: 72-year-old female with reported history of abdominal pain and early satiety. SEMI-SOLID PHASE 99m Tc SULFUR COLLOID GASTRIC EMPTYING STUDY COMPARISON: CT of the abdomen-pelvis report 07/30/2017 FINDINGS: The patient was administered 1.0 mCi of 99m Tc sulfur colloid mixed with oatmeal and consumed per os. Image acquisitions in the anterior-posterior projections for a total of 60 minutes. There is prompt visualization of the stomach. There is no gastroesophageal reflux identified. The T1/2 linear fit was calculated to be 46.77 minutes, (Normal: 12-56 minutes). Persistent esophageal radio pharmaceutical concentration is demonstrated throughout the course of image acquisition. NM/Gastric Emptying Study IMPRESSION: 1. NORMAL 99m Tc sulfur colloid semi-solid phase (oatmeal) gastric emptying imaging examination. A. There is normal and preserved semi-solid phase gastric emptying compared to normal controls with maintained first order kinetics throughout all components of the examination. (Mini avalos al, J Nucl Med Tech 38: 186, 2010). Electronically Signed: Igor Alvarez DO at 10:38 EDT Tel , Service support , CC: Alexi Galindo MD Last Puller: Signed 5-HIAA 24 HR UR Collected: 08/11/2017 Status: F Source: [place] 7:30 AM [facility] REPOSITORY Order Comment: STARTED 08/10/17 0730AM ENDED 08/11/17 0730AM TYPE CODE TESTS RESULT OUT OF RANGE REFERENCE UNITS LAB L3600.2600 Undefined mg/L Normal 5-HIAA,UR 3.1 LAB L3600.2700 0.0-14.9 mg/24 hr Normal 2.9 5-HIAA,U24 Result Comment: This test was developed and its performance characteristics determined by [facility]. It has not been cleared or approved by the Food and Drug Administration. Performed at: [address] [id number] A&P Mechanic: Andrea Rosario MD, Phone: [phone] Performed By: #### L3600.2500 #### [facility] (refer to report for specific site) refer to report for address and phone number MISCELLANEOUS LAB Collected: 08/09/2017 Status: F Source: [place] PROCEDURE 3:45 PM [facility] REPOSITORY Order Comment: Comments: [id number] A,SERUM,REFRIG Test(s) Ordered: [id number] A,SERUM,REFRIG TYPE CODE TESTS RESULT OUT OF RANGE REFERENCE UNITS LAB L801.1541 Normal [facility] TEST Result Comment: TEST RESULT LIMITS Chromogranin A 2 nmol/L 0 - 5 Chromogranin A performed by [employer]. Results for this test are designated to be for research purposes only by the assay's associate professor of anthropology. The performance characteristics of this product have not been established. Results for this test should not be used as absolute evidence of presence or absence of malignant disease without confirmation of the diagnosis by another medically established diagnostic product or procedure. Values obtained with different assay methods or kits cannot be used interchangeably. TESTING PERFORMED AT [facility]. ORIGINAL REPORT ON FILE IN LAB CONTAINS ADDITIONAL TEST SITE INFORMATION. Performed By: #### L801.1541 #### [facility] [address] [place], [address] EMERGENCY DEPARTMENT Observed: 08/04/2017 Status: F Source: [place] SUMMARY 5:38 PM [facility] REPOSITORY [facility] Medical Records Department [address] [place] [address] Emergency Department Summary 08/04/17 1730 MR#: [id number] Acct: [id number] Name: GLORY HENRIQUEZ Rep #: [id number] : 1945 72 From: Chico Moore MD PCP: Mikel BENNETT,Alexi Cárdenas Status: REG ER - ER Visit Summary Date of Service: 08/04/17 Chief Complaint: Abdominal pain for 4 months History of Present Illness: The patient is a 72 F who presents because of intermittent crampy bilateral mid abdominal pain 4 weeks. She is seeing Dr. Sharpe and had an outpatient CAT scan and blood work. Blood work was unremarkable. CAT scan revealed no changes from CAT scan obtained 2017. On both scans minimal fluid was noted in the pelvis and there was left pericolic fluid noted as well. There was no inflammatory changes and no reactive lymphadenopathy noted. She is status post cholecystectomy, appendectomy and hysterectomy. She denies fever, chills night sweats. She reports 20 pound weight loss because she does not want to eat. She did have a recent EGD for esophageal dilation. She denies any ocular, visual or auditory symptoms. She denies any chest pain or palpitations. She denies shortness of breath, dyspnea, dyspnea on exertion. She reports intermittent nausea without vomiting or diarrhea. She denies change in the consistency, color, caliber or frequency of her stools. She states her stools are soft. She denies dysuria, frequency, urgency or hematuria. She denies trauma. She denies back or flank pain. There is no history of renal ureterolithiasis. There is a past medical history of GERD, fibromyalgia, osteoarthritis and BMI is 36.8. Physical Examination: Blood pressure is elevated 186/110. I entered the room she has a flat affect with poverty of speech. Head is atraumatic normocephalic. Pupils are equal round reactive. Extraocular muscles are intact. TMs are pearly white with landmarks noted. Nares patent with no drainage. Posterior pharynx without erythema or exudate. Uvula is midline. There is no dysphonia or dysphasia. Trachea is midline. There is no stridor with auscultation of the neck. Heart is regular without murmur, gallop or rub. S1 and S2 are normal. Lungs are clear to auscultation with good movement of air bilaterally. Abdomen is soft with tenderness without guarding or rebound. Bowel sounds are present normal. There is no evidence of ventral umbilical hernia. There are no skin lesions or rash noted. There is no CVA tenderness noted. Lower extremity exam is unremarkable. She is alert and oriented. Motor sensory intact. DTRs symmetric. Cranial 2 through 12 intact. Test Results: Since she has had multiple tests done over the past 2+ months and 2 CAT scans believe there is an indication for a new CAT scan in light of the fact that she is not febrile and has no guarding or rebound tenderness. Because she is elderly CBC, and CMP was obtained. The results of her blood tests were unremarkable. Emergency Department Course and Treatment: Evaluate patient's abdominal pain she was given Bentyl and a CBC and CMP were obtained. Indication documented in test results. Treatment Plan: Since she has a benign exam with no change in workup recommended follow-up with Dr. Sharpe and need to look at other causes of pain. When I informed her of this she made the comment it cannot be stressed because it wakes me up. Patient was informed that anxiety and stress can disrupt her sleep. Her then made the comment this is probably stress/depression. Disposition: Discharged to home to follow-up with PCP and production packager Impression: 1. Bilateral abdominal pain of uncertain etiology 2. History of fibromyalgia 3. Status post appendectomy 4. Status post cholecystectomy 5. Status post hysterectomy This note was generated with the grafteration software. It may contain incorrect words, spelling, and punctuation that were not noted in review of the chart prior to signing ED Disposition - Plan for ED Patient: Disposition: Home or Assisted Living Chief Complaint: Abd Pain Instructions: ED Abdominal Pain Unkn Cause Referrals: Alexi Galindo Chi, MD [Primary Care Provider] - 3-5 Days if not improving What to do if you have Problems For any increased pain, shortness of breath, bleeding, nausea or vomiting, chest pain, or any unexpected problems, contact your Primary Care Provider. Call [facility] ([phone]) or report to the closest Emergency Room. Call 911 if necessary. 08/04/17 1738 <Electronically signed by Chico Moore MD> Date Chico Moore MD Cosigner Signature (If Indicated): Date CC: Alexi Galindo MD CBC W/DIFF, AUTOMATED Collected: 08/04/2017 Status: F Source: [place] 4:33 PM [facility] REPOSITORY TYPE CODE TESTS RESULT OUT OF RANGE REFERENCE UNITS LAB L100.1000 4.4-11.0 K/mm3 Normal WBC 8.9 LAB L100.1200 4.2-5.4 M/mm3 Normal RBC 4.87 LAB L100.1300 12.0-15.0 g/dl Normal HGB 13.2 LAB L100.1400 37-47 % Normal HCT 40.7 LAB L100.1500 81-99 fL Normal MCV 83.6 LAB L100.1600 27.0-32.0 pg Normal MCH 27.1 LAB L100.1700 32-36 g/gl Normal MCHC 32.4 LAB L100.1810 11.6-14.6 % Normal RDW CV 13.8 LAB L100.1820 35.1-43.9 fl Normal RDW SD 42.1 LAB L100.1900 150-450 K/mm3 Normal PLT 301 LAB L100.2000 6.2-12.0 fl Normal MPV 10.0 LAB L100.2100 47-70 % High NEUT% 75.8 LAB L100.2200 19-41 % Low LY% 14.8 LAB L100.2300 0-10 % Normal MONO% 7.8 LAB L100.2400 0-5 % Normal EO% 1.1 LAB L100.2500 0-1 % Normal BASO% 0.3 LAB L100.2550 0.0-0.9 % Normal IM GRAN % 0.200 Result Comment: IG% - Immature Granulocytes (promyelocytes, myelocytes and metamyelocytes) > 1% indicates that a LEFT SHIFT is Present. LAB L100.2620 2.0-7.7 X10 3/uL Normal Absolute Neut 6.7 LAB L100.2720 0.83-4.51 X10 3/ul Normal Absolute Lymph 1.31 Performed By: #### L100.0100 #### [facility] [place], [address] COMPREHENSIVE METABOLIC Collected: 08/04/2017 Status: F Source: [place] [facility] 4:33 PM [facility] REPOSITORY TYPE CODE TESTS RESULT OUT OF RANGE REFERENCE UNITS LAB L501.0100 74-106 mg/dL Normal GLU 91 Result Comment: Please note revised GLUCOSE reference range effective 2017. LAB L501.1000 7-18 mg/dL Normal BUN 14 LAB L501.1100 0.55-1.02 mg/dL Normal CREAT,SERUM 0.76 Result Comment: The validity of the calculated GFR AND GFRAA in patients over 70 years has not been determined. Clinical correlation is essential. LAB L501.1110 >60 mL/min Normal EST GFR 80 Result Comment: Non- GFR Calc LAB L501.1115 >60 mL/min Normal EST GFR - AA 97 Result Comment: GFR Calc LAB L501.1255 ml/min Normal Estimated CRCL 39.50 LAB L501.1300 10-20 RATIO Normal BUN/CRE 18.4 LAB L501.1500 6.4-8. g/dL Normal 2 T PROT 7.4 LAB L501.1800 3.2-5. g/dL Low 0 ALB 3.1 LAB L501.1950 2.2-4. g/dL High 2 GLOB 4.3 LAB L501.2000 0.9-2. RATIO Low 4 A/G 0.7 LAB L501.2200 8.5-10 mg/dL Normal .1 CA 9.0 LAB L501.4100 15-37 U/L Normal AST 19 LAB L501.4305 45-117 U/L Normal ALK P 99 LAB L501.4405 13-56 U/L Low ALT 12 LAB L501.4600 0.20-1 mg/dL Normal .00 T BILI 0.50 LAB L501.5300 136-14 mmol/L Normal 5 NA 141 LAB L501.5600 3.5-5. mmol/L Normal 1 K 4.2 LAB L501.5900 98-107 mmol/L Normal CL 107 LAB L501.6100 21.0-3 mmol/L Normal 2.0 CO2 29.0 LAB L501.6200 5-15 Normal GAP 5 Performed By: #### L500.4050 #### [facility] [address] [place], [address] ABDOMEN/PELVIS WITH Observed: 07/30/2017 Status: F Source: [place] CONTRAST 3:50 PM [facility] REPOSITORY [facility] Imaging Services [address] [place] [address] Abdomen/Pelvis WITH Contrast MR#: [id number] Acct: [id number] Name: GLORY HENRIQUEZ Rep #: [id number] : 1945 F 72 From: Amos Jasso MD PCP: Alexi Galindo MD, Chi Status: REG CLI Study: Abdomen/Pelvis WITH Contrast Date of Exam: 07/30/17 Exam# [id number] Ordering Dr: Alexi Galindo MD STUDY: CT ABDOMEN AND PELVIS WITH CONTRAST REASON FOR EXAM: Female, 72 years old. Abdominal pain RADIATION DOSAGE (If Supplied By Facility): CTDIvol = ( 18.32 ) mGy, DLP = ( 1096.42 ) mGycm TECHNIQUE: Transaxial images were obtained from the dome of the diaphragm to the symphysis pubis without oral contrast. 100ML ml of Isovue 300 contrast was administered. Sagittal and coronal images were reconstructed. Individualized dose optimization techniques were used for this CT. COMPARISON: Prior study of 2017 FINDINGS: The visualized lung bases are unremarkable. The visualized portions of the heart are within normal limits. Normal liver. There are surgical clips in the gallbladder fossa consistent with a prior cholecystectomy. Normal spleen. Normal pancreas. There is a minimal amount of fluid in the left paracolic gutter similar to the previous study. Normal bilateral adrenal glands. Normal right kidney. Normal left kidney. There is a small hiatal hernia. Normal small intestine. There is colonic diverticulosis. There is minimal perisigmoidal fatty stranding. The appendix is not seen in accordance with history of appendectomy. There are calcified plaques of the abdominal aorta and common iliac arteries. Normal inferior vena cava. Normal retroperitoneum. Normal urinary bladder. There is absence of the uterus consistent with a prior hysterectomy. There is a small amount of free intrapelvic fluid. Normal abdominal wall. There is a minimal grade 1 anterolisthesis of L4 relative to L5. There are diffuse degenerative changes of the visualized thoracolumbar spine. There is a small amount of subcutaneous gas of the left gluteal region most likely representing injection site. CT/Abdomen/Pelvis WITH Contrast IMPRESSION: Status post cholecystectomy, appendectomy and hysterectomy. Colonic diverticulosis. There is no evidence of associated diverticulitis. Minimal grade 1 anterolisthesis of L4 relative to L5. Diffuse degenerative changes of the thoracolumbar spine. Minimal free fluid in the deep pelvis and left paracolic gutter, similar to the previous study. There is a small amount of free fluid in the pelvis and left paracolic gutter. Electronically Signed: Amos Jasso MD at 19:36 EDT , Service support , CC: Alexi Galindo MD Last Puller: Signed COMPREHENSIVE METABOLIC Collected: 07/30/2017 Status: F Source: RIC[place]DA TORRES 3:19 PM [facility] REPOSITORY TYPE CODE TESTS RESULT OUT OF RANGE REFERENCE UNITS LAB L501.0100 74-106 mg/dL Normal GLU 80 Result Comment: Please note revised GLUCOSE reference range effective 2017. LAB L501.1000 7-18 mg/dL Normal BUN 14 LAB L501.1100 0.55-1.02 mg/dL Normal CREAT,SERUM 0.75 Result Comment: The validity of the calculated GFR AND GFRAA in patients over 70 years has not been determined. Clinical correlation is essential. LAB L501.1110 >60 mL/min Normal EST GFR 81 Result Comment: Non- GFR Calc LAB L501.1115 >60 mL/min Normal EST GFR - AA 99 Result Comment: GFR Calc LAB L501.1300 10-20 RATIO Normal BUN/CRE 18.7 LAB L501.1500 6.4-8.2 g/dL T Normal PROT 7.4 LAB L501.1800 3.2-5.0 g/dL Normal ALB 3.2 LAB L501.1950 2.2-4.2 g/dL Normal GLOB 4.2 LAB L501.2000 0.9-2.4 RATIO Low A/G 0.8 LAB L501.2200 8.5-10.1 mg/dL CA Normal 8.7 LAB L501.4100 15-37 U/L Normal AST 33 LAB L501.4305 45-117 U/L Normal ALK P 95 LAB L501.4405 13-56 U/L Normal ALT 21 Result Comment: Please note revised ALT reference range effective 2017. LAB L501.4600 0.20-1.00 mg/dL Normal T BILI 0.50 LAB L501.5300 136-145 mmol/L Normal NA 140 LAB L501.5600 3.5-5.1 mmol/L Normal K 3.6 LAB L501.5900 98-107 mmol/L Normal CL 104 LAB L501.6100 21.0-32.0 mmol/L Normal CO2 30.0 LAB L501.6200 5-15 Normal GAP 6 Performed By: #### L500.4050, L501.2400, L501.2450 #### [facility] [address] [facility] [place], [place], [address] AMYLASE Collected: 07/30/2017 Status: F Source: [place] 3:19 PM [facility] REPOSITORY TYPE CODE TESTS RESULT OUT OF RANGE REFERENCE UNITS LAB L501.2400 25-115 U/L Normal SERA 37 Performed By: #### L500.4050, L501.2400, L501.2450 #### [facility] [address] [place], [place], [address] LIPASE Collected: 07/30/2017 Status: F Source: [place] 3:19 PM [facility] REPOSITORY TYPE CODE TESTS RESULT OUT OF RANGE REFERENCE UNITS LAB L501.2450 73-393 U/L Normal LIPASE 173 Performed By: #### L500.4050, L501.2400, L501.2450 #### [facility] [address] [place], [place], [address] CBC W/DIFF, AUTOMATED Collected: 07/30/2017 Status: F Source: [place] 3:19 PM [facility] REPOSITORY TYPE CODE TESTS RESULT OUT OF RANGE REFERENCE UNITS LAB L100.1000 4.4-11.0 K/mm3 Normal WBC 7.9 LAB L100.1200 4.2-5.4 M/mm3 Normal RBC 5.02 LAB L100.1300 12.0-15.0 g/dl Normal HGB 13.6 LAB L100.1400 37-47 % Normal HCT 42.7 LAB L100.1500 81-99 fL Normal MCV 85.1 LAB L100.1600 27.0-32.0 pg Normal MCH 27.1 LAB L100.1700 32-36 g/gl Low MCHC 31.9 LAB L100.1810 11.6-14.6 % Normal RDW CV 14.2 LAB L100.1820 35.1-43.9 fl Normal RDW SD 43.9 LAB L100.1900 150-450 K/mm3 Normal PLT 308 LAB L100.2000 6.2-12.0 fl Normal MPV 10.7 LAB L100.2100 47-70 % Normal NEUT% 64.6 LAB L100.2200 19-41 % Normal LY% 24.1 LAB L100.2300 0-10 % Normal MONO% 8.6 LAB L100.2400 0-5 % Normal EO% 2.0 LAB L100.2500 0-1 % Normal BASO% 0.4 LAB L100.2550 0.0-0.9 % Normal IM GRAN % 0.300 Result Comment: IG% - Immature Granulocytes (promyelocytes, myelocytes and metamyelocytes) > 1% indicates that a LEFT SHIFT is Present. LAB L100.2620 2.0-7.7 X10 3/uL Normal Absolute Neut 5.1 LAB L100.2720 0.83-4.51 X10 3/ul Normal Absolute Lymph 1.91 Performed By: #### L100.0100 #### [facility] [address] [place], [address] HISTORY PHYSICAL Observed: 07/24/2017 Status: COMPLETED Source: [place] 11:08 AM [facility] REPOSITORY HNO ID: [id number] Author: Zaira Aparicio Service: (none) Author Type: Physician Type: HANDP Filed: 07/24/2017 11:33 AM Note Text: HISTORY AND PHYSICAL Glory Henriquez, 72 year old female Current history and physical on file: No Is a new History and Physical required for today's visit? Yes Indication for procedure: Dysphagia PROCEDURE(S) SCHEDULED FOR: EGD (Esophagogastroduodenoscopy) with or without biopsies, removal of polyps or lesions, dilation ( any means), treatment of bleeding ( any means), Barrx treatment of Betito's Esophagus, image tube placement or cryo therapy treatment based on clinical findings. BASELINE BEHAVIOR: Calm BASELINE ORIENTATION: A AND O x3 All medications and allergies reviewed: Yes Skin Assessment: Warm dry muscus membranes pink Airway/Respiratory Assessment: Airway: visualization of the uvula- Yes Mouth: opening greater than 2 fingerbreadths- Yes Neck: full range of motion- Yes Breath sounds clear/equal- Yes Cardiac Assessment: Regular rate and rhythm without murmur Abdominal Assessment: Abdomen soft, non-tender, no masses or organomegaly. Sedation Plan: MAC Additional Comments: None Zaira Aparicio MD CNOV Observed: 07/19/2017 Status: COMPLETED Source: [place] 2:00 PM [facility] REPOSITORY Office Visit ([facility]ST[facility]) GLORY HENRIQUEZ ([id number]) 1945 F Date Time Provider Department 07/19/17 2:00 PM ZAIRA APARICIO GSTGILDARDOR During your visit today, we recorded the following information about you: Pulse Blood pressure Weight Height 74/minute 158/96 90.9 kg 1.524 m Zaira Aparicio MD 07/19/2017 2:22 PM Signed Throat Problem; Nausea; and decrease in appetite HPI Glory Henriquez is a 72 year old female here today With complaints of a constant mid sternal chest pain ,decrease in appetite, nausea and an unintentional 14 pound wt loss since Apr. Sxs started after flu attack in 05/10. She has a history of gastritis and abnormal motility. She states she has been dysphagia with solids and liquids for the past months. She denies heartburn, reflux, cough or melenic stools. 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 No dilation was performed by Dr. Sanchez condon. Current Outpatient Prescriptions: meloxicam (MOBIC) 15 mg tablet Take 15 mg by mouth once daily. tolterodine (DETROL) 2 mg tablet Take 2 mg by mouth twice daily. esomeprazole (NEXIUM) 20 mg capsule Take 20 mg by mouth DAILY (6 AM). pregabalin (LYRICA) 75 mg capsule Take 75 mg by mouth twice daily. lisinopril (ZESTRIL, PRINIVIL) 10 mg tablet Take 1 tablet by mouth once daily. Aspirin 81 mg Tab Take 81 mg by mouth. naproxen sodium(ALEVE 220 MG TAB) 2 tabs q 4-6 hrs prn pain No current facility-administered medications for this visit. ALLERGIES Allergen Reactions - Acetaminophen Other: See Comments - Adhesive Tape (Arianna* Other: See Comments Heath skin - Bee Pollen Other: See Comments Swelling and throat closes - Latex Rash - Morphine Mental Status Change - Penicillins Rash - Vicodin [Hydrocodon* GI Upset Social History Substance Use Topics - Smoking status: Never Smoker - Smokeless tobacco: Never Used - Alcohol use No PAST MEDICAL HISTORY Diagnosis Date - Arthropathy, unspecified, site unspecified rheumatoid arthritis - neck, back, knees, hands - DVT (deep venous thrombosis) [facility] 2003 - Esophageal reflux - Unspecified essential hypertension PAST SURGICAL HISTORY Procedure Laterality Date - APPENDECTOMY - COLONOSCOP W/ OR W/O [facility] SPEC Colonoscopy - COLONOSCOP W/ OR W/O [facility] SPEC 04/02/2013 Colonoscopy - EGD - EGD W/O OR W/BRUSH/WASH 04/02/2013 EGD - EXCIS BREAST LESION 10/01/09 left excisional Bx - PAST SURGICAL HISTORY OF Breast Biopsies - 2 right , 3 left - REMOVAL GALLBLADDER 2005 Cholecystectomy - REMOVAL OF TONSILS,ANDlt;14 Y/O Tonsillectomy - REPAIR ROTATOR CUFF,ACUTE Rotator cuff repair right arm - TOTAL ABDOM HYSTERECTOMY Hysterectomy, ADOLPH - 1 ovaries - TOTAL KNEE REPLACEMENT 2003,2007 Knee replacement, total Right and left FAMILY HISTORY Problem Relation Age of Onset - Breast Cancer Mother age 70 - Diabetes Father Parkinsons, HTN, CAD, [place] - Hypertension Father - Stroke Father - None Brother MVA age 13 - Diabetes Brother - Asthma Brother - None Brother - None Sister - Hypertension Brother - Hypertension Brother - Psychiatry Brother REVIEW OF SYSTEMS Review of Systems All other systems reviewed and are negative. PHYSICAL EXAM BP 158/96 Pulse 74 Ht 5' 0ANDquot; (1.52m) Wt 200 lb 8 oz (90.9kg) SpO2 93% BMI 39.16 kg/(m2). Physical Exam Constitutional: She is oriented to person, place, and time. She appears well-developed and well-nourished. HENT: Head: Normocephalic and atraumatic. Right Ear: External ear normal. Left Ear: External ear normal. Nose: Nose normal. Mouth/Throat: Oropharynx is clear and moist. Eyes: Conjunctivae and EOM are normal. Pupils are equal, round, and reactive to light. Neck: Normal range of motion. Neck supple. Cardiovascular: Normal rate, regular rhythm, normal heart sounds and intact distal pulses. Pulmonary/Chest: Effort normal and breath sounds normal. Abdominal: Soft. Bowel sounds are normal. Musculoskeletal: Normal range of motion. Neurological: She is alert and oriented to person, place, and time. She has normal reflexes. Skin: Skin is warm and dry. Psychiatric: She has a normal mood and affect. Her behavior is normal. Judgment and thought content normal. ASSESSMENT: Dysphagia, unspecified type (primary encounter diagnosis) PLAN: Office Visit on 07/19/17 -EGD DILATION GEN ANES Return in about 6 months (around 01/19/2018). Zaira Aparicio MD DATE: 07/19/17 TIME: 2:22 PM Referring Provider: SELF [200] Allergies As of Date: 07/19/2017 Noted Allergy Reaction ACETAMINOPHEN 01/12/2015 14 - Other: See Comments ADHESIVE TAPE (ROSINS) 01/18/2006 14 - Other: See Comments Comments: Heath skin BEE POLLEN 02/03/2005 14 - Other: See Comments Comments: Swelling and throat closes LATEX 11/03/2008 2 - Rash MORPHINE 04/01/2013 1 - Mental Status Change PENICILLINS 02/03/2005 2 - Rash VICODIN (HYDROCODONE-ACETAMINOPHE*02/03/2005 8 - GI Upset Date Reviewed: 07/19/2017 Reviewed by: Zaira Mendez Cristino - Fully Assessed Reason for Visit: Throat Problem [109] Nausea [70] decrease in appetite [Other] Primary Visit Diagnosis:Dysphagia, unspecified type [R13.10] Order(s):EGD DILATION GEN ANES [[id number]] Order #: [id number] FUTURE Prescriptions as of 07/19/2017 Sig: MELOXICAM 15 MG TABLET Take 15 mg by mouth once isaiah* TOLTERODINE 2 MG TABLET Take 2 mg by mouth twice isaiah* ESOMEPRAZOLE MAGNESIUM 20 MG * Take 20 mg by mouth DAILY (6 * PREGABALIN 75 MG CAPSULE Take 75 mg by mouth twice brant* LISINOPRIL 10 MG TABLET Take 1 tablet by mouth once d* ASPIRIN 81 MG TABLET Take 81 mg by mouth. * ALEVE 220 MG TABLET 2 tabs q 4-6 hrs prn pain Medication notes this encounter CEFDINIR 300 MG CAPSULE >> Maryanne Grove LPN 07/19/2017 1:34 PM >> MARYANNE GROVE LPN [facility] Jul 19, 2017 1:34 PM Not taking CIPROFLOXACIN 500 MG TABLET >> Maryanne Grove LPN 07/19/2017 1:34 PM >> MARYANNE GROVE LPN [facility] Jul 19, 2017 1:34 PM Not taking CLINDAMYCIN HCL 150 MG CAPSULE >> Maryanne Grove LPN 07/19/2017 1:34 PM >> MARYANNE GROVE LPN [facility] Jul 19, 2017 1:34 PM Not taking CODEINE 10 MG-GUAIFENESIN 100 MG/5 ML ORAL LIQUID >> Maryanne Grove LPN 07/19/2017 1:34 PM >> MARYANNE GROVE LPN [facility] Jul 19, 2017 1:34 PM Not taking IBUPROFEN 600 MG TABLET >> Maryanne Grove LPN 07/19/2017 1:35 PM >> MARYANNE GROVE LPN [facility] Jul 19, 2017 1:35 PM Not taking MAGNESIUM OXIDE 400 MG TABLET >> Maryanne Grove LPN 07/19/2017 1:35 PM >> MARYANNE GROVE LPN [facility] Jul 19, 2017 1:35 PM Not taking PREDNISONE 10 MG TABLET >> Maryanne Grove CAFE HELPER 07/19/2017 1:36 PM >> MARYANNE GROVE LPN [facility] Jul 19, 2017 1:36 PM Not taking PRAVASTATIN 40 MG TABLET >> Maryanne Grove CAFE HELPER 07/19/2017 1:35 PM >> MARYANNE GROVE LPN [facility] Jul 19, 2017 1:35 PM Not taking NORTRIPTYLINE 25 MG CAPSULE >> Maryanne Grove CAFE HELPER 07/19/2017 1:35 PM >> MARYANNE GROVE LPN [facility] Jul 19, 2017 1:35 PM ,Not taking SPIRONOLACTONE 25 MG TABLET >> Maryanne Grove CAFE HELPER 07/19/2017 1:36 PM >> MARYANNE GROVE LPN [facility] Jul 19, 2017 1:36 PM duplicate >> Maryanne Grove LPN 07/19/2017 1:37 PM >> MARYANNE GROVE LPN [facility] Jul 19, 2017 1:37 PM Not taking PRAVASTATIN 40 MG TABLET >> Maryanne Grove CAFE HELPER 07/19/2017 1:36 PM >> MARYANNE GROVE LPN [facility] Jul 19, 2017 1:36 PM Not taking PREDNISONE 20 MG TABLET >> Maryanne Grove CAFE HELPER 07/19/2017 1:36 PM >> MARYANNE GROVE CAFE HELPER [facility] Jul 19, 2017 1:36 PM Not taking SPIRONOLACTONE 25 MG TABLET >> Maryanne Grove CAFE HELPER 07/19/2017 1:37 PM >> MARYANNE GROVE LPN [facility] Jul 19, 2017 1:37 PM Not taking Problem List As Of Date 07/19/2017 Noted Resolved ESOPHAGEAL REFLUX [K21.9] INVALID FOR* GENERAL OSTEOARTHROSIS [M15.9] INVALID FOR* PAIN IN JOINT, LOWER LEG [M25.569] INVALID FOR* IRRITABLE COLON [K58.9] INVALID FOR* Abnormal Mammogram, Unspecified [R92.8] INVALID FOR*12/30/2009 Lump or Mass in Breast [N63.0] INVALID FOR*12/30/2009 Essential hypertension, benign [I10] INVALID FOR* Abnormal mammogram, unspecified [R92.8] INVALID FOR* Fibrocystic breast [N60.19] INVALID FOR* Pain in right hip [M25.551] INVALID FOR* Right-sided low back pain with right-sided scia*INVALID FOR* Pharyngoesophageal dysphagia [R13.14] INVALID FOR* Morbid (severe) obesity due to excess calories *INVALID FOR* Medications Discontinued During This Encounter magnesium oxide (MAG-OX) 400 mg tabl* 05/08/2017 07/19/2017 Class: Historical Med Sig: Disc: Reason for discontinue is not on file. ibuprofen (MOTRIN) 600 mg tablet 05/28/2017 07/19/2017 Class: Historical Med Sig: Disc: Reason for discontinue is not on file. codeine-guaiFENesin (ROBITUSSIN AC) * 04/02/2017 07/19/2017 Class: Historical Med Sig: Disc: Reason for discontinue is not on file. clindamycin (CLEOCIN) 150 mg capsule 05/28/2017 07/19/2017 Class: Historical Med Sig: Disc: Reason for discontinue is not on file. ciprofloxacin HCl (CIPRO) 500 mg tab* 05/16/2017 07/19/2017 Class: Historical Med Sig: Disc: Reason for discontinue is not on file. cefdinir (OMNICEF) 300 mg capsule 04/02/2017 07/19/2017 Class: Historical Med Sig: Disc: Reason for discontinue is not on file. pravastatin (PRAVACHOL) 40 mg tablet 07/19/2017 Class: Historical Med Route: ORAL Sig: Take 40 mg by mouth once daily. Disc: Reason for discontinue is not on file. pravastatin (PRAVACHOL) 40 mg tablet 07/19/2017 Class: Historical Med Route: ORAL Sig: Take 40 mg by mouth once daily. Disc: Reason for discontinue is not on file. nortriptyline (PAMELOR) 25 mg capsule 07/19/2017 Class: Historical Med Route: ORAL Sig: Take 25 mg by mouth daily at bedtime. Disc: Reason for discontinue is not on file. spironolactone (ALDACTONE) 25 mg tab* 07/19/2017 Class: Historical Med Route: ORAL Sig: Take 25 mg by mouth once daily. Disc: Reason for discontinue is not on file. spironolactone (ALDACTONE) 25 mg tab* 30 t* 5 09/13/2015 07/19/2017 Route: ORAL Sig: Take 1 tablet by mouth once daily. Disc: Reason for discontinue is not on file. predniSONE (DELTASONE) 10 mg tablet 04/02/2017 07/19/2017 Class: Historical Med Sig: Disc: Reason for discontinue is not on file. predniSONE (DELTASONE) 20 mg tablet 3 ta* 0 10/26/2015 07/19/2017 Si tablet by mouth daily for 3 days Disc: Reason for discontinue is not on file. Disposition: Return in about 6 months (around 01/19/2018). Follow-up and Disposition History Recorded Encounter Status:Closed by ZAIRA APARICIO MD on 07/19/17 PROGRESS Observed: 07/19/2017 Status: COMPLETED Source: [place] 1:37 PM [facility] REPOSITORY HNO ID: [id number] Author: Zaira Aparicio Service: (none) Author Type: Physician Type: Progress Notes Filed: 07/19/2017 2:22 PM Note Text: Throat Problem; Nausea; and decrease in appetite HPI Glory Henriquez is a 72 year old female here today With complaints of a constant mid sternal chest pain ,decrease in appetite, nausea and an unintentional 14 pound wt loss since Apr. Sxs started after flu attack in 05/10. She has a history of gastritis and abnormal motility. She states she has been dysphagia with solids and liquids for the past months. She denies heartburn, reflux, cough or melenic stools. 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 No dilation was performed by Dr. Sanchez condon. Current Outpatient Prescriptions: meloxicam (MOBIC) 15 mg tablet Take 15 mg by mouth once daily. tolterodine (DETROL) 2 mg tablet Take 2 mg by mouth twice daily. esomeprazole (NEXIUM) 20 mg capsule Take 20 mg by mouth DAILY (6 AM). pregabalin (LYRICA) 75 mg capsule Take 75 mg by mouth twice daily. lisinopril (ZESTRIL, PRINIVIL) 10 mg tablet Take 1 tablet by mouth once daily. Aspirin 81 mg Tab Take 81 mg by mouth. naproxen sodium(ALEVE 220 MG TAB) 2 tabs q 4-6 hrs prn pain No current facility-administered medications for this visit. ALLERGIES Allergen Reactions - Acetaminophen Other: See Comments - Adhesive Tape (Arianna* Other: See Comments Heath skin - Bee Pollen Other: See Comments Swelling and throat closes - Latex Rash - Morphine Mental Status Change - Penicillins Rash - Vicodin [Hydrocodon* GI Upset Social History Substance Use Topics - Smoking status: Never Smoker - Smokeless tobacco: Never Used - Alcohol use No PAST MEDICAL HISTORY Diagnosis Date - Arthropathy, unspecified, site unspecified rheumatoid arthritis - neck, back, knees, hands - DVT (deep venous thrombosis) ([facility] 2003 - Esophageal reflux - Unspecified essential hypertension PAST SURGICAL HISTORY Procedure Laterality Date - APPENDECTOMY - COLONOSCOP W/ OR W/O BRS SPEC Colonoscopy - COLONOSCOP W/ OR W/O BRSH SPEC 04/02/2013 Colonoscopy - EGD - EGD W/O OR W/BRUSH/WASH 04/02/2013 EGD - EXCIS BREAST LESION 10/01/09 left excisional Bx - PAST SURGICAL HISTORY OF Breast Biopsies - 2 right , 3 left - REMOVAL GALLBLADDER 2005 Cholecystectomy - REMOVAL OF TONSILS,<12 Y/O Tonsillectomy - REPAIR ROTATOR CUFF,ACUTE Rotator cuff repair right arm - TOTAL ABDOM HYSTERECTOMY Hysterectomy, ADOLPH - 1 ovaries - TOTAL KNEE REPLACEMENT 2003,2007 Knee replacement, total Right and left FAMILY HISTORY Problem Relation Age of Onset - Breast Cancer Mother age 70 - Diabetes Father Parkinsons, HTN, CAD, [place] - Hypertension Father - Stroke Father - None Brother MVA age 13 - Diabetes Brother - Asthma Brother - None Brother - None Sister - Hypertension Brother - Hypertension Brother - Psychiatry Brother REVIEW OF SYSTEMS Review of Systems All other systems reviewed and are negative. PHYSICAL EXAM BP 158/96 Pulse 74 Ht 5' 0 (1.52m) Wt 200 lb 8 oz (90.9kg) SpO2 93% BMI 39.16 kg/(m2). Physical Exam Constitutional: She is oriented to person, place, and time. She appears well-developed and well-nourished. HENT: Head: Normocephalic and atraumatic. Right Ear: External ear normal. Left Ear: External ear normal. Nose: Nose normal. Mouth/Throat: Oropharynx is clear and moist. Eyes: Conjunctivae and EOM are normal. Pupils are equal, round, and reactive to light. Neck: Normal range of motion. Neck supple. Cardiovascular: Normal rate, regular rhythm, normal heart sounds and intact distal pulses. Pulmonary/Chest: Effort normal and breath sounds normal. Abdominal: Soft. Bowel sounds are normal. Musculoskeletal: Normal range of motion. Neurological: She is alert and oriented to person, place, and time. She has normal reflexes. Skin: Skin is warm and dry. Psychiatric: She has a normal mood and affect. Her behavior is normal. Judgment and thought content normal. ASSESSMENT: Dysphagia, unspecified type (primary encounter diagnosis) PLAN: Office Visit on 07/19/17 -EGD DILATION GEN ANES Return in about 6 months (around 01/19/2018). Zaira Aparicio MD DATE: 07/19/17 TIME: 2:22 PM CNCO Observed: 07/19/2017 Status: COMPLETED Source: [place] 12:00 AM [facility] REPOSITORY Letter Text UPPER ENDOSCOPY (EGD) You are scheduled at: [facility] [place] [id number] You are scheduled for an EGD on 07/24/17 at 11:30 am. YOU MUST have a responsible adult to drive you home and to assist you at home while you finish recovering from your sedation. Please limit the number of people that come with you to 1-2 people due to the limited waiting area. Bring your Treasurer's license, insurance card(s) and a list of your medications with you. Arrive 45 minutes before your scheduled exam time at 10:45 am Do not eat or drink anything after midnight the night before, including gum and hard candy. If you take any heart, blood pressure or breathing medications, you can take these before 6:00am on the day of your exam with a little sip of water. 5 DAYS BEFORE THE EXAM STOP TAKING ASPIRIN OR ASPIRIN CONTAINING PRODUCTS, VITAMIN E, BLOOD THINNERS SUCH COUMADIN, WARFARIN, PLAVIX, AGGRENOX (Please consult with the prescribing doctor of your blood thinner). DAY OF THE EXAM Diabetics: Please do not take any of your diabetic medications on the morning of the procedure; you may take them after the procedure. Any questions, please call our office at [phone]. There will be a $50.00 charge for any no show appointments or same day cancels. Observed: 05/31/2017 Status: F Source: [place] CULTURE, URINE 10:40 AM [facility] REPOSITORY Urine Culture ORGANISM 1: Mixed Gram Positive Organisms Elmo Count 1000-10,000 MIX CULTURE Mixed contaminants. Submit a new specimen if indicated. Performed By: #### M100.0650 #### [facility] [address] [place], [address] 12 LEAD ELECTROCARDIOGRAM Observed: 05/22/2017 Status: F Source: [place] 10:10 AM [facility] REPOSITORY [facility] Cardiovascular Services [address] [place] [address] 12 Lead EKG 05/17/17 0946 MR#: [id number] Acct: [id number] Name: GLORY HENRIQUEZ Rep #: [id number] : 1945 72 From: Jung Ballard MD Attending Dr: Leroy White DO Status: DIS PARVEEN Ordering Dr: Tomeka Babcock DO Date: 05/17/17 [place] [facility] [place]: F C Admitted: 05/17/17 Test Reason : NEAR SYNCOPE Blood Pressure : / mmHG Vent. Rate : 084 BPM Atrial Rate : 084 BPM P-R Int : 150 ms QRS Dur : 070 ms QT Int : 402 ms P-R-T Axes : 030 -08 -05 degrees QTc Int : 475 ms Normal sinus rhythm Normal ECG Confirmed by JUNG BALLARD ([id number]), sound editor BANDAR PATEL ([id number]) on 05/22/2017 10:10:09 AM Referred By: JOSE Confirmed By:JUNG BALLARD 05/22/17 1010 Date Jung Ballard MD CC: Alexi Galindo MD Signed DISCHARGE SUMMARY Observed: 05/20/2017 Status: F Source: [place] 7:59 AM [facility] REPOSITORY [facility] Medical Records Department [address] [place] [address] Discharge Summary 05/20/17 0756 MR#: [id number] Acct: [id number] Name: GLORY HENRIQUEZ Rep #: [id number] : 1945 72 From: Leroy White DO PCP: Alexi Galindo MD, Chi Status: DIS PARVEEN Y Location: MS2 ES316-1 Discharge Date and Diagnosis Date of Admission: 05/17/17 Date of Discharge: 05/18/17 - Primary Discharge Diagnosis #1 viral gastroenteritis #2 dehydration secondary to viral gastroenteritis #3 lightheadedness secondary to viral gastroenteritis #4 hypotension secondary to dehydration - Secondary Discharge Diagnosis Chronic Problems GERD (gastroesophageal reflux disease) (Chronic) Generalized osteoarthritis (Chronic) Obesity (Chronic) Fibromyalgia (Chronic) Hospital Course and Treatment Operations: None Procedures: None Summary of Care Provided: The patient is a 72 year old F was seen in the emergency room at [facility] with chief complaint of diarrhea, abdominal cramping, and dry heaves. Workup in the emergency room shows slight elevation of her BUN and a slight elevation of her white blood cell count. Patient became lightheaded in the emergency room and blood pressure dropped into the 90s systolic which was felt to be secondary to dehydration. Patient was placed in observation status on MedSurg 2, given IV fluids and anti-emetics, enteric panel was obtained on the stool which was negative for pathogens tested. The following day on 05/18/17, patient was seen and examined felt to be in stable condition for discharge home. Discharge Activity: Return to Normal Activity Weight Bearing Status: Full weight bearing Home Medications: Medications to take at Discharge Gabapentin [Neurontin] 300 mg PO QHS 02/07/16 Lisinopril [Zestril] 10 mg PO DAILY 02/07/16 Nortriptyline HCl 25 mg PO QHS 02/07/16 Spironolactone [Aldactone] 25 mg PO DAILY 02/07/16 Tolterodine Tartrate [Detrol] 2 mg PO DAILY 02/07/16 Esomeprazole Mag Trihydrate [Nexium] 40 mg PO BID 03/09/16 Ciprofloxacin [Cipro] 500 mg PO BID 05/17/17 Clindamycin [Cleocin] 150 mg PO TID 05/17/17 Magnesium Oxide [Magnesium] 400 mg PO QHS 05/17/17 Primary Care Physician: Alexi Galindo Chi, MD [Primary Care Provider] - Please follow up with your Primary Care Physician in: at next appt time Disposition: Home Minutes spent on discharge:: 24 Patient Condition:: Stable Meaningful Use Info Meaningful Use Diagnoses (Choose all that apply): None applicable Code Visit OBSV E AND M: 69486 Observation care discharge 05/20/17 0759 <Electronically signed by Leroy White DO> Date Leroy White DO Cosigner Signature (if applicable): Date CC: Leroy White DO; Alexi Galindo MD Signed HISTORY AND PHYSICAL Observed: 05/20/2017 Status: F Source: [place] 7:56 AM [facility] REPOSITORY [facility] Medical Records Department [address] [place] [address] History and Physical 05/17/172019 MR#: [id number] Acct: [id number] Name: GLORY HENRIQUEZ Rep #: [id number] : 1945 72 From: Leroy White DO PCP: Alexi Galindo MD, Chi Status: DIS PARVEEN Y Location: [place] [address] Problem List (1) Diarrhea Status: Acute Qualifiers: Diarrhea type: presumed infectious Qualified Code(s): R19.7 - Diarrhea, unspecified (2) Generalized abdominal pain Status: Acute (3) Lightheadedness Status: Acute History of Present Illness Date of Admission: 05/17/17 Chief Complaint: Lightheadedness, diarrhea, generalized abdominal pain The patient is a 72 year old F was seen in the emergency room at [facility] with chief complaint of 2 episodes of diarrhea which she described as being loose stool, abdominal cramping, and 3 episodes of dry heaves this morning. Patient also complained of lightheadedness. Patient stated also that she felt she had chills today but she denied any temperature. Patient denied any hematochezia or hematemesis. Patient had been seen at her physician's office yesterday and diagnosed with a urinary tract infection was given a shot of Rocephin and placed on Cipro. Labs obtained in the emergency room showed a slightly elevated white blood cell count, patient was afebrile, CT scan showed findings which were nonspecific-small areas of fluid collection were noted but no evidence of any abscess was noted or evidence of colitis was noted. There was also no evidence of diverticulitis. Patient was given fluids in the emergency room and anti-emetics, she continued to complain of severe weakness and after having a bowel movement in the emergency room became very lightheaded, emergency room physician felt that the patient should be placed into observation status for IV fluids and observed, he contacted the hospitalist service and I concurred, patient will be placed in observation status for acute viral gastroenteritis, she will be given IV fluids, and monitored. Enteric panel was obtained on the stool and is pending Past Medical History Past Medical History (Chronic Problems): Chronic Problems GERD (gastroesophageal reflux disease) (Chronic) Generalized osteoarthritis (Chronic) Obesity (Chronic) Fibromyalgia (Chronic) Allergies latex Allergy (Verified 12/23/16 12:30) Swelling morphine Allergy (Verified 12/23/16 12:30) Other Penicillins Allergy (Verified 12/23/16 12:30) Hives hydrocodone bitartrate [From Vicodin] Adverse Reaction (Verified 12/23/16 12:30) Abd cramps/diarrhea Home Medications: Ambulatory Orders Medication Instructions Recorded Gabapentin [Neurontin] 300 mg PO QHS 02/07/16 Lisinopril [Zestril] 10 mg PO DAILY 02/07/16 Surgical History: appendectomy, cholecystectomy, hysterectomy, total knee arthroplasty - 2, tonsillectomy, - - Breast biopsies for benign cysts, cardiac catheterization Psychiatric History: No pertinent psych hx SPORTS DOCTOR History: No pertinent SPORTS DOCTOR history Lives: Spouse/ Significant Other Smoking Status: Never smoker Tobacco Use: Non-smoker Alcohol: None Drugs: None - *Family History Maternal History Items: Cancer - Breast cancer Paternal History Items: Diabetes, - - Parkinson's disease Review of Systems Constitutional: Reports: Weakness, Fatigue. Denies: Anorexia, Chills, Fever, Night Sweats, Malaise, Weight Change Eyes: Denies: Blurred vision, Cataracts, Conjunctivae Inflammation, Double vision, Drainage HEENT: Denies: Difficulty Hearing, Difficulty Swallowing, Dysphasia, Ear Pain, Head Aches, Hearing Changes, Nasal bleeding, Nasal Congestion, Sinus Drainage, Sore Throat Cardiovascular: Reports: Light Headedness. Denies: Chest Pain, Claudication, Chest Pressure, Chest Tightness, Edema, Orthopnea, Palpitations, Paroxysmal Noc. Dyspnea Respiratory: Denies: Cough, Hemoptysis, Pleuritic Pain, Shortness of Breath, Shortness of breath at rest, Shortness of breath upon exertion, Sputum production Gastrointestinal: Reports: Abdominal Pain, Diarrhea, Nausea, Vomiting. Denies: Constipation, Hematemesis, Hematochezia, Melena Genitourinary: Denies: Dysuria, Frequency, Hematuria, Hesitancy, Urgency Gynecological: Denies: Breast symptoms Musculoskeletal: Denies: Back Pain, Foot Pain, Hand Pain, Joint Pain, Joint stiffness, Joint swelling, Joint Tenderness, Leg Pain Skin: Denies: Dryness, Pruritis, Rash Neurological: Denies: Blurred vision, Double vision, Change in Speech, Slurred speech, Difficulty swallowing, Focal weakness, Headaches, Incoordination, Numbness, Tingling Psychiatric: Denies: Anxiety, Depression, Homicidal Ideations, Suicidal Ideations Endocrine: Denies: Change in Body Habitus, Heat/ Cold Intolerance, Polydipsia, Polyuria Hematologic/ Lymphatic: Denies: Adenopathy, Anemia, Easy Bruising, Easy Bleeding, Petechiae, Purpura VTE Information - Inpt Only VTE Present on Admission: No VTE Mechan Device Prophylaxis: None VTE Pharm Prophylaxis ordered?: Yes - Physical Exam General: Alert, Oriented x3, Cooperative, No apparent distress, Well developed, Well nourished HEENT: Atraumatic, PERRLA, EOMI, Normocephalic Oral: Moist Mucosa Neck: Supple, No JVD, Negative Carotid Bruits, No Nuchal Rigidity, Trachea Midline, Thyroid Normal Size and Texture Lungs: Clear to auscultation, Normal air movement, No rhonchi, No wheeze, No rales Cardiovascular: Regular rate, Regular Rhythm, Normal S1, Normal S2, No murmurs, PMI Normal, No rub noted, No Gallop Abdomen: Bowel Sounds Present, Soft, Non-Distended, Obese, No hernias noted Extremities: No clubbing, No cyanosis, No edema, Capillary Refill Less than 3 Seconds Skin: No rashes, No breakdown Musculoskeletal: No Tenderness to Palpation of Joints or Extremities, No Muscle Wasting Neurological: Cranial nerves II-XII grossly intact, Neuro grossly intact, Muscle tone normal, Sensory exam intact to light touch and pain, Coordination normal Psych/Mental Status: Normal Affect, Appropriate, Alert and oriented to time, place, person, mood and affect Vital Signs Temp Pulse Resp BP Pulse Ox 97.9 F 79 20 H 122/72 H 98 05/17/17 14:46 05/17/17 14:46 05/17/17 13:39 05/17/17 14:46 05/17/17 14:46 Oxygen Delivery Method Room Air Weight: 97.4 kg Body Mass Index (BMI) 40.6 Assessment/Plan #1 viral gastroenteritis-patient will be admitted given IV fluids, antiemetics will be given, enteric panel will be performed on stool #2 lightheadedness secondary to #1 #3 generalized weakness secondary to #1 #4 hypotension secondary to diarrhea #5 dehydration Code Visit OBSV E AND M: 20365 Initial observation care L3 05/20/17 0756 <Electronically signed by Leroy White DO> Date Leroy White DO Cosigner Signature: Date (if applicable) CC: Leroy White DO; Alexi Galindo MD Signed DISCHARGE INSTRUCTION Observed: 05/18/2017 Status: F Source: [place] 11:06 AM [facility] REPOSITORY [facility] Medical Records Department [address] [place] [address] Instructions for Home/Discharge Instructions 05/18/17 1105 MR#: [id number] Acct: [id number] Name: GLORY HENRIQUEZ Rep #: [id number] : 1945 72 From: Leroy White DO PCP: Mikel BENNETT,Alexi Cárdenas Status: ADM PARVEEN - Discharge Diagnoses Current Active Problems: Current Active and Chronic Problems Diarrhea (Acute) Generalized abdominal pain (Acute) Lightheadedness (Acute) You will use the following diet at home:: No restrictions Your food should be the consistency of: Regular Your liquids should be the consistency of: Regular/Thin Discharge Activity: Return to Normal Activity Weight Bearing Status: Full weight bearing Allergies/Adverse Reactions: Allergies latex Allergy (Verified 12/23/16 12:30) Swelling morphine Allergy (Verified 12/23/16 12:30) Other Penicillins Allergy (Verified 12/23/16 12:30) Hives hydrocodone bitartrate [From Vicodin] Adverse Reaction (Verified 12/23/16 12:30) Abd cramps/diarrhea Medications to take at Discharge Gabapentin [Neurontin] 300 mg PO QHS 02/07/16 Lisinopril [Zestril] 10 mg PO DAILY 02/07/16 Nortriptyline HCl 25 mg PO QHS 02/07/16 Spironolactone [Aldactone] 25 mg PO DAILY 02/07/16 Tolterodine Tartrate [Detrol] 2 mg PO DAILY 02/07/16 Esomeprazole Mag Trihydrate [Nexium] 40 mg PO BID 03/09/16 Ciprofloxacin [Cipro] 500 mg PO BID 05/17/17 Clindamycin [Cleocin] 150 mg PO TID 05/17/17 Magnesium Oxide [Magnesium] 400 mg PO QHS 05/17/17 Primary Care Physician: Alexi Galindo Chi, MD [Primary Care Provider] - Please follow up with your Primary Care Physician in: at next appt time 05/18/17 1106 <Electronically signed by Leroy White DO> Date Leroy White DO CC: Alexi Galindo MD BASIC METABOLIC Collected: 05/18/2017 Status: F Source: [place] PROFILE (BMP) 5:55 AM [facility] REPOSITORY TYPE CODE TESTS RESULT OUT OF RANGE REFERENCE UNITS LAB L501.0100 70-110 mg/dL Normal GLU 87 LAB L501.1000 7-18 mg/dL Normal BUN 15 LAB L501.1100 0.55-1.02 mg/dL Normal 0.62 CREAT,SERUM Result Comment: The validity of the calculated GFR AND GFRAA in patients over 70 years has not been determined. Clinical correlation is essential. LAB L501.1110 >60 mL/min Normal EST GFR 101 Result Comment: Non- GFR Calc LAB L501.1115 >60 mL/min Normal EST GFR - AA 122 Result Comment: GFR Calc LAB L501.1255 ml/min Normal Estimated CRCL 39.50 LAB L501.1300 10-20 RATIO High BUN/CRE 24.1 LAB L501.2200 8.5-10 mg/dL Low .1 CA 7.8 LAB L501.5300 136-14 mmol/L Normal 5 NA 142 LAB L501.5600 3.5-5. mmol/L Normal 1 K 3.9 LAB L501.5900 98-107 mmol/L High CL 111 LAB L501.6100 21.0-3 mmol/L Normal 2.0 CO2 25.0 LAB L501.6200 5-15 Normal GAP 6 Performed By: #### L500.2500 #### [facility] [address] [place], [place], [address] CBC W/DIFF, AUTOMATED Collected: 05/18/2017 Status: F Source: RICARDA 5:55 AM [facility] REPOSITORY TYPE CODE TESTS RESULT OUT OF RANGE REFERENCE UNITS LAB L100.1000 4.4-11.0 K/mm3 Normal WBC 8.5 LAB L100.1200 4.2-5.4 M/mm3 Normal RBC 4.29 LAB L100.1300 12.0-15.0 g/dl Normal HGB 12.0 LAB L100.1400 37-47 % Normal HCT 37.7 LAB L100.1500 81-99 fL Normal MCV 87.9 LAB L100.1600 27.0-32.0 pg Normal MCH 28.0 LAB L100.1700 32-36 g/gl Low MCHC 31.8 LAB L100.1810 11.6-14.6 % Normal RDW CV 14.6 LAB L100.1820 35.1-43.9 fl High RDW SD 46.0 LAB L100.1900 150-450 K/mm3 Normal PLT 287 LAB L100.2000 6.2-12.0 fl Normal MPV 9.7 LAB L100.2100 47-70 % High NEUT% 71.3 LAB L100.2200 19-41 % Normal LY% 20.7 LAB L100.2300 0-10 % Normal MONO% 5.9 LAB L100.2400 0-5 % Normal EO% 1.3 LAB L100.2500 0-1 % Normal BASO% 0.2 LAB L100.2550 0.0-0.9 % Normal IM GRAN % 0.600 Result Comment: IG% - Immature Granulocytes (promyelocytes, myelocytes and metamyelocytes) > 1% indicates that a LEFT SHIFT is Present. LAB L100.2620 2.0-7.7 X10 3/uL Normal Absolute Neut 6.1 LAB L100.2720 0.83-4.51 X10 3/ul Normal Absolute Lymph 1.76 Performed By: #### L100.0100 #### [facility] [address] [facility]. [place], [place], [address] Observed: 2017 Status: F Source: [place] ENTERIC PATHOGEN 10:20 PM [facility] PANEL STOOL REPOSITORY Has pt arrived? Y EP PANEL STOOL Not detected for Campylobacter group, Salmonella species, Shigella species, Vibrio Group, Yersinia enterocolitica, EHEC (Shiga Toxin 1, Shiga Toxin 2), Norovirus Gl/Gll, and Rotavirus A. Other common stool pathogens are not detected on this panel include: Aeromonas/Plesiomonas or parasites. Order testing for these organisms separately if suspected. This is an amplified DNA test which makes it both specific and sensitive. Normal Reference Range = Not Detected CAMPYLOBACTER Not Detected Salmonella Not Detected Shigella sp. Not Detected Shiga Toxin Not Detected Yersinia Not Detected VIBRIO Not Detected Norovirus Not Detected Rotavirus Not Detected Performed By: #### M100.637 #### [facility] [address] [facility]. [place], [place], [address] URINALYSIS, COMPLETE Collected: 2017 Status: F Source: [place] 10:14 PM [facility] REPOSITORY Order Comment: Has pt arrived? Y How was Urine Obtained? MANUAL CONTROL AUGER PRESS OPERATOR TO SPECIFY TYPE CODE TESTS RESULT OUT OF RANGE REFERENCE UNITS LAB L400.3000 Yellow COLOR Normal Yellow LAB L400.3050 Clear Normal CLARITY Clear LAB L400.3200 Normal mg/dl Normal GLUCOSE, UR Normal LAB L400.3300 Negative mg/dL Normal BILIRUBIN URINE Negative LAB L400.3400 Negative mg/dl Normal KETONE UR Negative LAB L400.3465 1.002-1.030 Normal SP.GR. DIPSTX 1.020 LAB L400.3550 5.0 - 8.0 pH UR Normal 6.0 LAB L400.3600 Negative mg/dl PROT Normal DIPSTX Negative LAB L400.3700 Normal mg/dl Normal UROBILI Normal LAB L400.3750 Negative Normal NITRITE UR Negative LAB L400.3780 Negative /ul Normal OCCULT BLOOD-UR Negative LAB L400.3800 Negative /ul High LEUK 25 ESTERASE LAB L400.4050 0-5 /hpf WBC Normal 5-10 SEEN LAB L400.4100 0-5 /hpf 0 Normal RBC-UA SEEN LAB L400.4150 5-10 /hpf SQUAM Normal EPI 0-5 SEEN LAB L400.4300 None Seen /hpf 0 Normal BACTERIA SEEN LAB L400.4350 <or=2+ /hpf 0 Normal MUCUS, URINE SEEN Performed By: #### L400.0001 #### [facility] [address] [facility] [place], [address] EMERGENCY DEPARTMENT Observed: 2017 Status: F Source: [place] SUMMARY 1:09 PM [facility] REPOSITORY [facility] Medical Records Department [address] [facility] [place] [address] Emergency Department Summary 05/17/17 1302 MR#: [id number] Acct: [id number] Name: GLORY HENRIQUEZ Rep #: [id number] : 1945 72 From: Tomeka Babcock DO PCP: Mikel BENNETT,Alexi Cárdenas Status: REG ER - ER Visit Summary Date of Service: 05/17/17 Chief Complaint: [No pain, nausea, diarrhea] History of Present Illness: The patient is a 72 F [resents to the emergency department with symptoms that started earlier today. Patient states that she started clindamycin for a dental procedure and Cipro Floxin for UTI yesterday. Patient started initially this morning with some heartburn-like symptoms then had dry heaves. She then started with watery stool. Patient denies any fever. Patient describes her abdominal discomfort is upper abdomen and feels like she is bloated. Patient denies any chest pain. Patient denies shortness of breath.] Physical Examination: [HEENT-PERRLA, EOMI. Cranial nerves II through XII grossly intact. TMs clear. Mucous membranes moist. No adenopathy. Cardiovascular-regular rate and rhythm without murmur or ectopy Lungs-clear to auscultation, chest wall stable without crepitus or subcu emphysema Abdomen-normoactive bowel sounds, soft and patient has tenderness over the upper abdomen. There is no rebound, rigidity, or perineal signs. Extremities-intact 4, normal range of motion, normal pulses, atraumatic] Test Results: [CBC with differential obtained showed a white blood cell count of 13.1, hemoglobin 14, hematocrit 46, platelets 323. Lactate was 1.6. Chemistries unremarkable. LFTs normal and lipase was 199. Troponin was less than 0.02. CT scan of the abdomen and pelvis read by radiology as small amount of perisplenic fluid as well as fluid in the left paracolic gutter. Small amount of fluid in the pelvis. Increased markings in the root of the mesentery suggestive of inflammatory changes. Clinical correlation recommended. Patient's EKG shows sinus rhythm with rate of 84 bpm with no acute ST segment changes.] Elevated white blood cell count may be related to viral gastroenteritis and patient also on chronic prednisone therapy. Emergency Department Course and Treatment: [Patient was medicated with antiemetics. Case was discussed with hospitalist who will evaluate patient for admission. Patient's been lightheaded with standing and had near-syncopal episode when having a bowel movement in the ER and patient had continued diarrhea. Her systolic blood pressure after episode of diarrhea in the 90s. Liter of fluid was ordered.] Treatment Plan: [Was discussed with Dr. Nithya Kan who is on for general surgery regarding the CT scan findings. At this point it was not felt to be anything surgical and recommended admitting patient for IV hydration and observation. Patient had stool for enteric pathogens ordered.] Disposition: [Admit] Impression: [Abdominal pain Gastroenteritis Generalized weakness] This note was generated with Sequella dictation software. It may contain incorrect words, spelling, and punctuation that were not noted in review of the chart prior to signing ED Disposition - Plan for ED Patient: Chief Complaint: Abd Pain Referrals: Alexi Galindo Chi, MD [Primary Care Provider] - What to do if you have Problems For any increased pain, shortness of breath, bleeding, nausea or vomiting, chest pain, or any unexpected problems, contact your Primary Care Provider. Call [facility] ([phone]) or report to the closest Emergency Room. Call 911 if necessary. 05/17/17 1309 <Electronically signed by Tomeka Babcock DO> Date Tomeka Babcock DO Cosigner Signature (If Indicated): Date CC: Alexi Galindo MD CBC W/DIFF, AUTOMATED Collected: 2017 Status: F Source: RICARDA 10:00 AM [facility] REPOSITORY TYPE CODE TESTS RESULT OUT OF RANGE REFERENCE UNITS LAB L100.1000 4.4-11.0 K/mm3 High WBC 13.1 LAB L100.1200 4.2-5.4 M/mm3 Normal RBC 5.22 LAB L100.1300 12.0-15.0 g/dl Normal HGB 14.5 LAB L100.1400 37-47 % Normal HCT 45.6 LAB L100.1500 81-99 fL Normal MCV 87.4 LAB L100.1600 27.0-32.0 pg Normal MCH 27.8 LAB L100.1700 32-36 g/gl Low MCHC 31.8 LAB L100.1810 11.6-14.6 % Normal RDW CV 14.2 LAB L100.1820 35.1-43.9 fl High RDW SD 45.5 LAB L100.1900 150-450 K/mm3 Normal PLT 323 LAB L100.2000 6.2-12.0 fl Normal MPV 9.7 LAB L100.2100 47-70 % High NEUT% 81.2 LAB L100.2200 19-41 % Low LY% 13.7 LAB L100.2300 0-10 % Normal MONO% 3.8 LAB L100.2400 0-5 % Normal EO% 0.8 LAB L100.2500 0-1 % Normal BASO% 0.2 LAB L100.2550 0.0-0.9 % Normal IM GRAN % 0.300 Result Comment: IG% - Immature Granulocytes (promyelocytes, myelocytes and metamyelocytes) > 1% indicates that a LEFT SHIFT is Present. LAB L100.2620 2.0-7.7 X10 3/uL High Absolute Neut 10.6 LAB L100.2720 0.83-4.51 X10 3/ul Normal Absolute Lymph 1.79 Performed By: #### L100.0100 #### [facility] [address] [place], [place], [address] LACTIC ACID Collected: 2017 Status: F Source: [place] 10:00 AM [facility] REPOSITORY Order Comment: Yes/No query for Sepsis Lactate Rule Y TYPE CODE TESTS RESULT OUT OF RANGE REFERENCE UNITS LAB L503.6005 0.4-2.0 mmol/L Normal LACTIC ACID 1.6 Performed By: #### L503.6005 #### [facility] [address] [place], [address] COMPREHENSIVE METABOLIC Collected: 2017 Status: F Source: [facility] 10:00 AM [facility] REPOSITORY Order Comment: 'TROP' Serial specimen #1, #2, #3, or #4: 1 TYPE CODE TESTS RESULT OUT OF RANGE REFERENCE UNITS LAB L501.0100 70-110 mg/dL Normal GLU 89 LAB L501.1000 7-18 mg/dL High BUN 19 LAB L501.1100 0.55-1.02 mg/dL Normal 0.87 CREAT,SERUM Result Comment: The validity of the calculated GFR AND GFRAA in patients over 70 years has not been determined. Clinical correlation is essential. LAB L501.1110 >60 mL/min Normal EST GFR 68 Result Comment: Non- GFR Calc LAB L501.1115 >60 mL/min Normal EST GFR - AA 83 Result Comment: GFR Calc LAB L501.1255 ml/min Normal Estimated CRCL 45.40 LAB L501.1300 10-20 RATIO High BUN/CRE 21.8 LAB L501.1500 6.4-8. g/dL Normal 2 T PROT 7.2 LAB L501.1800 3.4-5. g/dL Low 0 ALB 2.9 Result Comment: Please note revised Albumin AND Globulin reference range effective 2017. LAB L501.1950 2.2-4.2 g/dL High GLOB 4.3 LAB L501.2000 0.9-2.4 RATIO Low A/G 0.7 LAB L501.2200 8.5-10.1 mg/dL Normal CA 8.7 LAB L501.4100 15-37 U/L Normal AST 19 Result Comment: Slight Hemolysis, Result may be falsely increased. LAB L501.4305 45-117 U/L Normal ALK P 87 LAB L501.4405 12-78 U/L Normal ALT 18 LAB L501.4600 0.20-1.00 mg/dL Normal T BILI 0.40 LAB L501.5300 136-145 mmol/L Normal NA 140 LAB L501.5600 3.5-5.1 mmol/L Normal K 4.1 Result Comment: Slight Hemolysis, Result may be falsely increased. LAB L501.5900 98-107 mmol/L Normal CL 105 LAB L501.6100 21.0-32.0 mmol/L Normal CO2 26.0 LAB L501.6200 5-15 Normal 9 GAP Performed By: #### L500.4050, L501.2450, L501.4010 #### [facility] [address] [facility] [place], [place], [address] LIPASE Collected: 2017 Status: F Source: [place] 10:00 AM [facility] REPOSITORY Order Comment: 'TROP' Serial specimen #1, #2, #3, or #4: 1 TYPE CODE TESTS RESULT OUT OF RANGE REFERENCE UNITS LAB L501.2450 73-393 U/L Normal LIPASE 199 Performed By: #### L500.4050, L501.2450, L501.4010 #### [facility] [address] [facility], [address] TROPONIN-I Collected: 2017 Status: F Source: [place] 10:00 AM [facility] REPOSITORY Order Comment: 'TROP' Serial specimen #1, #2, #3, or #4: 1 TYPE CODE TESTS RESULT OUT OF RANGE REFERENCE UNITS LAB L501.4010 <0.06 ng/mL Normal < 0.02 TROPONIN-I Result Comment: TROPONIN-I EXPECTED VALUES <0.05 NEGATIVE 0.06 - 0.59 AT RISK OF DE > OR = 0.60 SUGGEST DE Performed By: #### L500.4050, L501.2450, L501.4010 #### [facility] [address] [place], [address] ABDOMEN/PELVIS WITHOUT Observed: 2017 Status: F Source: [place] CONT 9:39 AM [facility] REPOSITORY [facility] Imaging Services [address] [place] [address] Abdomen/Pelvis without Cont MR#: [id number] Acct: [id number] Name: GLORY HENRIQUEZ Rep #: [id number] : 1945 F 72 From: Peter Davidson MD PCP: Mikel BENNETT,Alexi [facility] Status: REG ER Study: Abdomen/Pelvis without Cont Date of Exam: 05/17/17 Exam# [id number] Ordering Dr: Tomeka Babcock DO STUDY: CT ABDOMEN AND PELVIS WITHOUT CONTRAST REASON FOR EXAM: Female, 72 years old. Abdominal pain with distention and diarrhea. RADIATION DOSAGE (If Supplied By Facility): CTDIvol = ( 24.05 ) mGy, DLP = ( 1093.41 ) mGycm TECHNIQUE: Transaxial images were obtained from the dome of the diaphragm to the symphysis pubis without oral contrast, and without intravenous contrast. Sagittal and coronal images were reconstructed. Individualized dose optimization techniques were used for this CT. COMPARISON: None. FINDINGS: Mild degree of increased linear markings at the lung bases suggestive of either scarring or dependent bibasilar atelectasis. The visualized portions of the heart are within normal limits. Normal liver. There are surgical clips in the gallbladder fossa consistent with a prior cholecystectomy. Normal spleen. Small amount of perisplenic fluid. Normal pancreas. Normal bilateral adrenal glands. Normal right kidney. Normal left kidney. There is a small hiatal hernia. Normal small intestine. There are multiple colonic diverticula consistent with diverticulosis. The patient is status post appendectomy. There is diffuse atherosclerotic calcification of the abdominal aorta, without a demonstrated aneurysm. Normal inferior vena cava. Normal retroperitoneum. Increased markings are seen in the peritoneal fat of the root of the mesentery. This may represent inflammatory changes. Normal urinary bladder. There is absence of the uterus consistent with a prior hysterectomy. Small amount of pelvic fluid. Small amount of fluid in the left paracolic gutter. Normal abdominal wall. There are diffuse degenerative changes of the visualized lumbar spine. Grade 1 anterior listhesis of L4 on L5 CT/Abdomen/Pelvis without Cont IMPRESSION: Small amount of perisplenic fluid as well as fluid in the left paracolic gutter. Small amount of fluid in the pelvis. Increased markings in the root of the mesentery suggestive of a inflammatory changes. Clinical correlation is recommended. Electronically Signed: Peter Davidson MD at 11:40 EST Tel [phone], Service support , CC: Tomeka Babcock DO; Alexi Galindo MD Last Puller: Signed Observed: 05/16/2017 Status: F Source: [place] CULTURE, URINE 4:51 PM [facility] REPOSITORY Urine Culture ORGANISM 1: Enterobacter aerogenes Elmo Count 80,000-100,000 Enterobacter aerogenes: REACTION Amoxacillin/Clavulanic Acid $ >=32 R Cefazolin $ >=64 R Cefepime $ <=1 S Ceftriaxone $ <=1 S Ciprofloxacin $ <=0.25 S Ertapenim $$$ <=0.5 S Gentamicin $ <=1 S Imipenem *NF 1 S Levofloxacin $ <=0.12 S Nitrofurantoin $ 64 I Piperacillin/Tazobactam $$ <=4 S Tobramycin $ <=1 S Trimethoprim/Sulfametho $ <=20 S (NF) indicates non-formulary drug at [facility]. Approval by Infectious Disease Specialist required before non-formulary drugs may be ordered and/or dispensed. Performed By: #### M100.0650 #### [facility] [address] [place], [address] CBC W/DIFF, AUTOMATED Collected: 05/08/2017 Status: F Source: [place] 10:03 AM [facility] REPOSITORY TYPE CODE TESTS RESULT OUT OF RANGE REFERENCE UNITS LAB L100.1000 4.4-11.0 K/mm3 Normal WBC 8.4 LAB L100.1200 4.2-5.4 M/mm3 Normal RBC 4.77 LAB L100.1300 12.0-15.0 g/dl Normal HGB 13.5 LAB L100.1400 37-47 % Normal HCT 41.6 LAB L100.1500 81-99 fL Normal MCV 87.2 LAB L100.1600 27.0-32.0 pg Normal MCH 28.3 LAB L100.1700 32-36 g/gl Normal MCHC 32.5 LAB L100.1810 11.6-14.6 % Normal RDW CV 14.3 LAB L100.1820 35.1-43.9 fl High RDW SD 45.1 LAB L100.1900 150-450 K/mm3 Normal PLT 318 LAB L100.2000 6.2-12.0 fl Normal MPV 9.9 LAB L100.2100 47-70 % Normal NEUT% 67.8 LAB L100.2200 19-41 % Normal LY% 23.2 LAB L100.2300 0-10 % Normal MONO% 7.0 LAB L100.2400 0-5 % Normal EO% 1.0 LAB L100.2500 0-1 % Normal BASO% 0.5 LAB L100.2550 0.0-0.9 % Normal IM GRAN % 0.500 Result Comment: IG% - Immature Granulocytes (promyelocytes, myelocytes and metamyelocytes) > 1% indicates that a LEFT SHIFT is Present. LAB L100.2620 2.0-7.7 X10 3/uL Normal Absolute Neut 5.7 LAB L100.2720 0.83-4.51 X10 3/ul Normal Absolute Lymph 1.95 Performed By: #### L100.0100 #### [facility] [address] [place], [place], [address] COMPREHENSIVE METABOLIC Collected: 05/08/2017 Status: F Source: [facility] 10:03 AM [facility] REPOSITORY TYPE CODE TESTS RESULT OUT OF RANGE REFERENCE UNITS LAB L501.0100 70-110 mg/dL Normal GLU 83 LAB L501.1000 7-18 mg/dL Normal BUN 18 LAB L501.1100 0.55-1.02 mg/dL Normal 0.76 CREAT,SERUM Result Comment: The validity of the calculated GFR AND GFRAA in patients over 70 years has not been determined. Clinical correlation is essential. LAB L501.1110 >60 mL/min Normal EST GFR 80 Result Comment: Non- GFR Calc LAB L501.1115 >60 mL/min Normal EST GFR - AA 97 Result Comment: GFR Calc LAB L501.1300 10-20 RATIO High BUN/CRE 23.7 LAB L501.1500 6.4-8.2 g/dL T Normal PROT 7.5 LAB L501.1800 3.4-5.0 g/dL Low ALB 3.0 Result Comment: Please note revised Albumin AND Globulin reference range effective 2017. LAB L501.1950 2.2-4.2 g/dL High GLOB 4.5 LAB L501.2000 0.9-2.4 RATIO Low A/G 0.7 LAB L501.2200 8.5-10.1 mg/dL Normal CA 8.9 LAB L501.4100 15-37 U/L Normal AST 18 LAB L501.4305 45-117 U/L Normal ALK P 109 LAB L501.4405 12-78 U/L Normal ALT 18 LAB L501.4600 0.20-1.00 mg/dL Normal T BILI 0.40 LAB L501.5300 136-145 mmol/L Normal NA 142 LAB L501.5600 3.5-5.1 mmol/L Normal K 3.6 LAB L501.5900 98-107 mmol/L High CL 108 LAB L501.6100 21.0-32.0 mmol/L Normal CO2 26.0 LAB L501.6200 5-15 Normal GAP 8 Performed By: #### L500.4050, L501.9520 #### [facility] [address] [place], [address] THYROID STIM HORMONE Collected: 05/08/2017 Status: F Source: RICARDA (TSH) 10:03 AM [facility] REPOSITORY TYPE CODE TESTS RESULT OUT OF RANGE REFERENCE UNITS LAB L501.9520 0.358-3.74 uIU/mL Normal TSH 1.09 Performed By: #### L500.4050, L501.9520 #### [facility] [address] [place], [address] ALLERGIES ALLERGIES DATE TYPE / CODE NAME / CODE REACTION SEVERITY SOURCE 12/25/2017 Drug hydrocodone Abd Unknown [place] Allergy/416 bitartrate/[id number] cramps/diarrhe Community 529029(SNOM 55(RXNORM) [facility] ED CT) Repository 12/25/2017 Drug Penicillins/[id number] Hives Unknown [place] Allergy/416 476(RXNORM) Community 735272([facility] ED CT) Repository 12/25/2017 Drug morphine/[id number] Other Unknown [place] Allergy/416 (RXNORM) Community 555852([facility] ED CT) Repository 12/25/2017 Drug latex/[id number](RX Swelling Unknown [place] Allergy/416 NORM) Community 781601([facility] ED CT) Repository 01/12/2015 DRUG [facility]HEN [facility] [place] [address] 560657(SNOM Repository ED CT) 04/01/2013 [facility] [address] [address]14759(SNOM [facility] ED CT) 11/03/2008 [facility] [address] 157848(SNOM Repository ED CT) 01/18/2006 Chemical/42 ADHESIVE TAPE OTHER: SEE [facility] 4287416(SNO (ROSINS) [place] MED CT) Repository 02/03/2005 DRUG BEE POLLEN OTHER: [facility] [place] [address] 800389(SNOM Repository ED CT) 02/03/2005 Drug PENICILLINS RASH [facility] Class/26258 [place] 1003(SNOMED Repository CT) 02/03/2005 DRUG/743506 HYDROCODONE-ACETAMI GI UPSET [facility] 003(SNOMED NOPHEN [place] CT) Repository ENCOUNTERS ENCOUNTERS ADMIT/DISCHARGE ACCOUNT ADMITTING ENCOUNTER LOCATION SOURCE NUMBER CLASS 03/25/2018 [id number] Ambulatory [facility] ing:PSN Repository 03/05/2018/03/05/20 [id number] Ambulatory [address] [place] Repository 12/25/2017/12/26/19 [id number] Ambulatory BMSBuilding:Trevor Chowdary [place].[facility] Repository 12/15/2017 [id number] [facility] Repository 12/15/2017/12/16/19 [id number] Ambulatory BMSBuilding:B Ricarda 18 [facility] Repository 11/29/2017 [id number] Ambulatory [facility] Repository 11/27/2017/11/28/19 [id number] Ambulatory BMSBuilding:B Ricarda [address] [facility] Repository 11/20/2017 [id number] [facility]:US Repository 11/14/2017/11/15/19 [id number] Ambulatory BMSBuilding:B [place] [address] [place].[facility] Hospital Repository 11/12/2017 [id number] [facility] ing:POLAB3 Repository 11/08/2017 [id number] Ambulatory [facility] ing:OPBI Repository 10/26/2017 [id number] [facility] Repository 08/28/2017/08/29/19 [id number] Ambulatory [address] Repository 08/15/2017 [id number] [facility] ing:NM Repository 08/11/2017 [id number] Ambulatory [facility] ing:LABSPEC Repository 08/09/2017 [id number] [facility] ing:POLAB3 Repository 08/04/2017/08/05/19 [id number] Emergency [place] [address] HospitalBuild Hospital ing:ED Repository 07/30/2017 [id number] [facility] Repository 07/30/2017 [id number] [facility] ing:POLAB3 Repository 07/24/2017 [id number] Ambulatory [facility] Repository 07/19/2017/07/20/19 [id number] Ambulatory [address] Repository 05/31/2017 [id number] [facility] ing:POLAB3 Repository 05/17/2017/05/18/19 [id number] Cindy, Ambulatory [place]arda [address] [facility] ing:FP1Ggpz: Repository ZY440Snd: 1 2017 [id number] Cindy, Ambulatory BMSBuilding:Trevor Harper [facility] Repository 2017 [id number] Cindy, Ambulatory BMSBuilding:Trevor Harper MS.[facility] Repository 05/16/2017 [id number] [facility] ing:POLAB3 Repository 05/08/2017 [id number] [facility] ing:POLAB3 Repository PAYERS PAYERS ENCOUNTER GUARANTOR PAYER SUBSCRIBER SOURCE 03/25/2018 GLORY Mckinney Primary GLORY Chowdary [id number] E Insurance:MEDICARE BAILEYDOB: Community OLD ANAHEIM PART A [facility] [id number] Number: Repository [id number]: 330 [id number] [phone] () Date:2017-10-26 03/25/2018 Secondary NOT GIVENUNK [place] Insurance:SELF PAY [facility] Number: Effective Repository Date:2017-10-26 12/25/2017 GLORY Mckinney Primary GLORY Faye Chowdary [id number] E Insurance:MEDICARE BAILEYDOB: Community OLD JOSÉ MIGUEL PART A [facility] [id number] Number: Repository [id number]: 330 [id number] [phone] () Date:2017-12-15 12/25/2017 Secondary NOT GIVENUNK [place] Insurance:SELF PAY [facility] Number: Effective Repository Date:2017-12-25 12/15/2017 GLORY Mckinney Primary GLORY Faye Chowdary [id number] E Insurance:MEDICARE BAILEYDOB: Community OLD JOSÉ MIGUEL PART A [facility] [id number] Number: Repository [address]Ffp: 330 [id number] [phone] () Date:2017-12-15 12/15/2017 Secondary NOT GIVENUNK [place] Insurance:SELF PAY [facility] Number: Effective Repository Date:2017-12-15 12/15/2017 GLORY L Primary GLORY Mckinney [place] [id number] E Insurance:MEDICARE BAILEYDOB: Community OLD JOSÉ MIGUEL PART A [facility] [id number], [place] Number: Repository [address]Tka: [phone] [id number] [phone] (HP) Date:2017-11-27 12/15/2017 Secondary NOT GIVENUNK [place] Insurance:SELF PAY [facility] Number: Effective Repository Date:2017-12-15 11/27/2017 GLORY L Primary GLORY Mckinney Ricarda [id number] E Insurance:MEDICARE BAILEYDOB: Community [place]IGU[place] PART A [facility] [id number], [place] Number: Repository [address]Qee: 330 [id number] [phone] (HP) Date:2017-11-22 11/27/2017 Secondary NOT GIVENUNK Ricarda Insurance:SELF PAY [facility] Number: Effective Repository Date:2017-11-27 11/20/2017 GLORY L Primary GLORY Mckinney Ricarda [id number] E Insurance:MEDICARE BAILEYDOB: Community [place] PART A [facility] [id number], [place] Number: Repository [id number]: 330 [id number] [phone] (HP) Date:2017-11-14 11/20/2017 Secondary NOT GIVENUNK Ricarda Insurance:SELF PAY [facility] Number: Effective Repository Date:2017-11-14 11/14/2017 GLORY L Primary GLORY Mckinney [place] [id number] E Insurance:MEDICARE BAILEYDOB: Community [place] PART A [facility] [id number], [place] Number: Repository [address]Lwr: 330 [id number] [phone] (HP) Date:2017-11-12 11/14/2017 Secondary NOT GIVENUNK [place] Insurance:SELF PAY [facility] Number: Effective Repository Date:2017-11-12 11/12/2017 Glory L Primary Glory Mckinney Ricarda [id number] E Insurance:MEDICARE BaileyDOB: Community [place] PART A [facility] [id number], [place] Number: Repository [address]Rqi: 330 [id number] [phone] () Date:2017-11-12 11/12/2017 Secondary NOT GIVENUNK Ricarda Insurance:SELF PAY [facility] Number: Effective Repository Date:2017-11-12 11/08/2017 Glory L Primary Glory Sevillaoster [id number] E Insurance:MEDICARE BaileyDOB: Community [place] PART A [facility] [id number], [place] Number: Repository [address]Xpu: 330 [id number] [phone] () Date:2017-11-05 11/08/2017 Secondary NOT GIVENUNK [place] Insurance:SELF PAY [facility] Number: Effective Repository Date:2017-11-05 10/26/2017 Glory L Primary Glory Mckinney [place] [id number] E Insurance:MEDICARE BaileyDOB: Community [place] PART A [facility] [id number], [place] Number: Repository [address]Exi: 330 [id number] [phone] () Date:2017-10-26 10/26/2017 Secondary NOT GIVENUNK [place] Insurance:SELF PAY [facility] Number: Effective Repository Date:2017-10-26 08/15/2017 Glory L Primary Glory Mckinney Ricarda [id number] Old Insurance:MEDICARE BaileyDOB: Community [place] PART A [facility] [id number][place] Number: Repository [address]Huy: 330 [id number] [phone] () Date:2017-08-09 08/15/2017 Secondary NOT GIVENUNK Ricarda Insurance:SELF PAY [facility] Number: Effective Repository Date:2017-08-09 08/11/2017 Glory L Primary Glory Mckinney Ricarda [id number] Old Insurance:MEDICARE BaileyDOB: Community [place] PART A [facility] [id number], [place] Number: Repository [address]Teq: 330 [id number] [phone] (HP) Date:2017-08-11 08/11/2017 Secondary NOT GIVENUNK Ricarda Insurance:SELF PAY [facility] Number: Effective Repository Date:2017-08-11 08/09/2017 Glory Mckinney Primary Glory Chowdary [id number] Old Insurance:MEDICARE BaileyDOB: Community [place] PART A [facility] [id number], [place] Number: Repository [address]Eta: 330 [id number] [phone] (HP) Date:2017-08-09 08/09/2017 Secondary NOT GIVENUNK [place] Insurance:SELF PAY [facility] Number: Effective Repository Date:2017-08-09 08/04/2017 Glory Mckinney Primary Glory Chowdary [id number] Old Insurance:MEDICARE BaileyDOB: Community [place] PART A [facility] [id number], [place] Number: Repository [address]Wgk: 330 [id number] [phone] (HP) Date:2017-08-04 08/04/2017 Secondary NOT GIVENUNK Ricarda Insurance:SELF PAY [facility] Number: Effective Repository Date:2017-08-04 07/30/2017 Glory Mckinney Primary Glory Chowdary [id number] Old Insurance:MEDICARE BaileyDOB: Community [place] PART A [facility] [id number], [place] Number: Repository [address]Vah: 330 [id number] [phone] (HP) Date:2017-07-30 07/30/2017 Secondary NOT GIVENUNK Ricarda Insurance:SELF PAY [facility] Number: Effective Repository Date:2017-07-30 07/30/2017 Glory Mckinney Primary Glory Chowdary [id number] Old Insurance:MEDICARE BaileyDOB: Community [place] PART A [facility] [id number], [place] Number: Repository [address]Zng: 330 [id number] [phone] (HP) Date:2017-07-30 07/30/2017 Secondary NOT GIVENUNK [place] Insurance:SELF PAY [facility] Effective Repository Date:2017-07-30 05/31/2017 Glory Mckinney Primary Glory Chowdary [id number] Old Insurance:MEDICARE BaileyDOB: Community [place] PART A [facility] [id number], [place] Number: Repository [id number]: 330 [id number] [phone] (HP) Date:2017-05-31 05/31/2017 Secondary NOT GIVENUNK [place] Insurance:SELF PAY [facility] Number: Effective Repository Date:2017-05-31 2017 Glory L Primary Glory Mckinney Ricarda [id number] Old Insurance:MEDICARE BaileyDOB: Community [place] PART A [facility] [id number], [place] Number: Repository [address]Udz: 330 [id number] [phone] (HP) Date:2017 2017 Secondary NOT GIVENUNK [place] Insurance:SELF PAY [facility] Number: Effective Repository Date:2017 2017 Glory L Primary Glory Chowdary [id number] Old Insurance:MEDICARE BaileyDOB: Community [place] PART A [facility] [id number], [place] Number: Repository [id number]: 330 [id number] [phone] (HP) Date:2017 2017 Secondary NOT GIVENUNK [place]arda Insurance:SELF PAY [facility] Number: Effective Repository Date:2017 2017 Glory L Primary Glory Mckinney Ricarda [id number] Old Insurance:MEDICARE BaileyDOB: Community [place] PART A [facility] [id number], [place] Number: Repository [address]Oqe: 330 [id number] [phone] (HP) Date:2017 2017 Secondary NOT GIVENUNK [place] Insurance:SELF PAY [facility] Number: Effective Repository Date:2017 05/16/2017 Glory L Primary Glory Chowdary [id number] Old Insurance:MEDICARE BaileyDOB: Community [place] PART A [facility] [id number], [place] Number: Repository [phone]: ([phone] [id number] [phone] () Date:2017-05-16 05/16/2017 Secondary NOT GIVENUNK Ricarda Insurance:SELF PAY [facility] Number: Effective Repository Date:2017-05-16 05/08/2017 Glory L Primary Glory L Ricarda [id number] Old Insurance:MEDICARE BaileyDOB: [facility] PART A [facility] [id number], [place] Number: Repository [address]Kfx: 330 [id number] [phone] () Date:2017-05-08 05/08/2017 Secondary NOT GIVENUNK Ricarda Insurance:SELF PAY [facility] Number: Effective Repository Date:2017-05-08
== END ==
PROVIDERS: Family Provider Family Medicine Geriatric Medicine; PCP Family Medicine Geriatric Medicine; Visit Provider Family Medicine Geriatric Medicine
DX: R50.9 Fever, unspecified (principal)
CPT/HCPCS: 87633

== ENCOUNTER 2018-04-12 04:13 | Inpatient (IN) | payer MEDICARE, SELFPAY ==
[2018-04-12] VITALS (8 sets, daily range): BP systolic 93–133; BP diastolic 41–82; PULSE 60–75; RESP 12–16; TEMP 36.6–36.8; O2SAT 93–97; BMI 35.8
[2018-04-12] MEDS: Ondansetron 4 MG/2 ML Vial IV ×2 (04:49→08:16)
[2018-04-12] MEDS: 0.9% Normal Saline 1,000 ML 1000 ML IV ×2 (05:00→06:26)
--- NOTE | 2018-04-12 05:36 | CT_ITS ---
STUDY: CT BRAIN WITHOUT CONTRAST REASON FOR EXAM: Female, 72 years old. Dizziness RADIATION DOSAGE (If Supplied By Facility): CTDIvol = ( 44.99 ) mGy, DLP = ( 812.98 ) mGycm TECHNIQUE: Transaxial CT imaging of the brain was performed without administration of intravenous contrast material. Individualized dose optimization techniques were used for this CT. COMPARISON: None. FINDINGS: Normal soft tissue structures. Normal calvarium. Normal size ventricles and extra-axial spaces for the patient's age. Normal white matter tracts of the cerebral hemispheres. Normal basal ganglia and thalami. Normal brainstem. Normal cerebellum. There is no intracranial hemorrhage. There are no findings of an acute ischemic infarction. Normal visualized paranasal sinuses. CT/Brain/Head without Contrast IMPRESSION: Normal unenhanced CT scan of the brain. No acute findings in the brain Electronically Signed: Bal Salazar MD at 6:07 EST Tel , Service support ,
--- NOTE | 2018-04-12 05:37 | EKG12_ITS ---
Test Reason : DIZZINESS Blood Pressure : / mmHG Vent. Rate : 069 BPM Atrial Rate : 069 BPM P-R Int : 148 ms QRS Dur : 064 ms QT Int : 444 ms P-R-T Axes : 067 -06 -08 degrees QTc Int : 475 ms Normal sinus rhythm Possible Inferior infarct , age undetermined Abnormal ECG Confirmed by SHIRA BALLARD ([id number]), editor at large BANDAR PATEL ([id number]) on 04/17/2018 2:36:32 PM Referred By: ASUNCION Confirmed By:SHIRA BALLARD
[2018-04-12 05:50] LABS: Absolute Lymphocyte Count 1.57 X10^3/ul (0.83-4.51); Absolute Neutrophil Count 14.6 X10^3/uL (2.0-7.7); Basophil# 0.04 X10^3/uL; Basophil% 0.2 % (0-1); Eosinophil# 0.03 X10^3/uL; Eosinophils% 0.2 % (0-5); Hematocrit 51.1 % (37-47); Hemoglobin 16.9 g/dl (12.0-15.0); Lymphocyte # 1.57 X10^3/ul (4.0); Lymphocyte % 9.1 % (19-41); Mean Corp Hgb Conc 33.1 g/gl (32-36); Mean Corpuscular Volume 84.6 fL (81-99); Mean Platelet Vol. 10.6 fl (6.2-12.0); Monocyte# 1.07 X10^3/uL; Monocyte% 6.2 % (0-10); Neutrophil # 14.56 X10^3/uL (2.7-7.7); Platelet Count 373 K/mm3 (150-450); RBC Distribution Width CV 14.5 % (11.6-14.6); RBC Distribution Width SD 44.6 fl (35.1-43.9); Red Blood Count 6.04 M/mm3 (4.2-5.4); White Blood Count 17.3 K/mm3 (4.4-11.0)
[2018-04-12 05:55] LABS: POSITIVE COUNT NO; POSITIVE DIFFERENTIAL NO; POSITIVE MORPHOLOGY NO
--- NOTE | 2018-04-12 05:55 | ED.DCSUM_ITS ---
- ER Visit Summary Date of Service: 04/12/18 Chief Complaint: Diarrhea and dizziness History of Present Illness: The patient is a 72 F who presents with diarrhea and dizziness that began today. Patient states she had cataract surgery earlier this morning. Patient states she was in bed sleeping. Patient states she got up to use the restroom because she felt like she was going out diarrhea. Patient states she was dizzy but was able to walk to the bathroom and back. Patient states that she had a second episode where she felt like she was going to have diarrhea and tried to go to the bathroom but fell. Patient was still dizzy at that time. Patient states her dizziness feels like a spinning and mo tion sensation. Patient states it is worse when she sits and stands up but does not resolve with laying flat. Patient also admits to some diffuse abdominal pain. Physical Examination: Vital signs are stable. Patient is afebrile. Patient is in no acute distress. Oral mucosa is pink and moist. The left pupil is reactive. The right is covered with a bandage. Neck is supple. Trachea is midline. There is no JVD noted. Heart was regular rate and rhythm. Lungs are clear and equal bilaterally. Abdomen is soft. Bowel sounds are normal. There is diffuse tenderness. There is no rebound or guarding noted. There is tenderness and ecchymosis over the left knee. Range of motion is limited and complete flexion secondary to pain. There is no pain with short arc range of motion. There is also some mild tenderness over the right elbow. There is no deformity. There is no edema or ecchymosis. There is good range of motion. Cranial nerves II through XII are intact. There are no focal motor or sensory deficits noted. Test Results: CBC showed a leukocytosis of 17.3. Hemoglobin was 16.9 and hematocrit was 51.1. BUN was 20 and creatinine was 1.45. X-rays of the left knee were obtained. There is no acute fracture. CT scan of the brain was obtained and does not show any acute intracranial abnormality. CT scan of the abdomen and pelvis was ordered and is pending. Emergency Department Course and Treatment: Patient was given Zofran and IV fluids initially. Patient was given a dose of meclizine here. Patient was unable to stand for orthostatics due to weakness in her legs. There was no change in blood pressure or pulse from lying to sitting. Patient then started complaining more of abdominal cramping. CT scan of the abdomen and pelvis was ordered at that time. Disposition: Care of the patient was turned over to the oncoming physician. Impression: 1. Dizziness 2. Leukocytosis 3. Abdominal pain This note was generated with Onit dictation software. It may contain incorrect words, spelling, and punctuation that were not noted in review of the chart prior to signing ED Disposition - Plan for ED Patient: Chief Complaint: General Illness Referrals: Alexi Morin Chi, MD [Primary Care Provider] -
--- NOTE | 2018-04-12 05:55 | RAD_ITS ---
STUDY: X-RAY - LEFT KNEE REASON FOR EXAM: Female, 72 years old. Painful left knee TECHNIQUE: 4 view(s) of the knee. COMPARISON: None. FINDINGS: There is a total left knee replacement. The metallic hardware in good position. No knee joint effusion. The quadriceps and patellar tendons are normal. RAD/Knee 4 or More Views IMPRESSION: A total left knee replacement. Electronically Signed: Bal Salazar MD at 6:09 EST Tel , Service support ,
[2018-04-12 05:57] LABS: ALB/GLOB Ratio 0.8 RATIO (0.9-2.4); AST(SGOT) 16 U/L (15-37); Alanine Aminotransfer ALT/SGPT 17 U/L (13-56); Albumin, Serum 3.1 g/dL (3.2-5.0); Alkaline Phosphatase 97 U/L (45-117); Anion Gap 10 (5-15); BUN 20 mg/dL (7-18); BUN/Creat Ratio 13.8 RATIO (10-20); Calcium,Total 9.3 mg/dL (8.5-10.1); Chloride 108 mmol/L (98-107); Creatinine, Serum 1.45 mg/dL (0.55-1.02); EST Glomerular Filtration Rate 38 mL/min (>60); Est Glom Filt Rate - Afr Amer 46 mL/min (>60); Estimated Creatinine Clearance 5.16 ml/min; Glucose 190 mg/dL (74-106); Lipase 189 U/L (73-393); Potassium 4.3 mmol/L (3.5-5.1); Protein, Total 7.1 g/dL (6.4-8.2); Sodium Level 143 mmol/L (136-145)
[2018-04-12 06:16] LABS: Bedside Glucose 126 mg/dL (70-110)
--- NOTE | 2018-04-12 06:24 | CT_ITS ---
STUDY: CT ABDOMEN AND PELVIS WITHOUT CONTRAST REASON FOR EXAM: Female, 72 years old. Abdominal pain and diarrhea RADIATION DOSAGE (If Supplied By Facility): CTDIvol = ( 10.37 ) mGy, DLP = ( 515.47 ) mGycm TECHNIQUE: Transaxial images were obtained from the dome of the diaphragm to the symphysis pubis without oral contrast, and without intravenous contrast. Sagittal and coronal images were reconstructed. Individualized dose optimization techniques were used for this CT. COMPARISON: None. FINDINGS: The lung bases are clear. The liver is normal. No dilated intrahepatic biliary radicles. Previous cholecystectomy. The spleen is normal. The pancreas is normal. Both adrenals are normal. The kidneys are normal with no masses, calculi or hydronephrosis The stomach is normal. There is no bowel distention, acute appendicitis or diverticulitis. No constricting lesions are seen in large bowel. The abdominal wall is intact with no hernias. There is mild ascites around the liver and spleen and also in the pelvis The vascular structures in the retroperitoneum are normal. There is no retrocrural, retroperitoneal or mesenteric adenopathy. Facet arthrosis in the lower lumbosacral spine. The urinary bladder is normal.--Previous hysterectomy.. There is no inguinal or pelvic adenopathy. There is no inguinal hernia. . CT/Abdomen/Pelvis without Cont IMPRESSION: Mild ascites. No acute appendicitis or diverticulitis. Electronically Signed: Bal Salazar MD at 7:35 EST Tel , Service support ,
[2018-04-12] MEDS: Meclizine HCl 25 MG Tablet PO (06:26)
[2018-04-12] MEDS: Dicyclomine 20 MG/2 ML Vial IM (06:31)
--- NOTE | 2018-04-12 06:50 | ED.RN ---
0602 WENT TO DO THE STANDING PART OF THE ORTHOSTATIC BP AND PT BECAME VERY DIZZY AND COULD NOT STAND.PT SAT ON THE FLOOR.PT NOT HARMED.WITH ASSIST OF THREE,PT HELPED INTO THE BED.PT THEN STATE THAT SHE RECENTLY HAD IV FLUIDS AT BECAUSE OF HER BEING WEAK.MD AWARE OF PT SITTING ON FLOOR AND AWARE THAT PT RECIEVED IV FLUIDS IN DR GALINDO'S OFFICE.
--- NOTE | 2018-04-12 07:22 | NURSING ---
DR MARKS FOR DR ROLAND
--- NOTE | 2018-04-12 07:25 | ED.DCSUM_ITS ---
- ER Visit Summary Date of Service: 04/12/18 Chief Complaint: [] History of Present Illness: The patient is a 72 F [] Physical Examination: [] Test Results: [] Emergency Department Course and Treatment: [] Treatment Plan: [] Disposition: [] Impression: [] This note was generated with [employer] Dashboard dictation software. It may contain incorrect words, spelling, and punctuation that were not noted in review of the chart prior to signing ED Disposition - Plan for ED Patient: Disposition: Acute Care Hospital [facility] Chief Complaint: General Illness Diagnosis: Dehydration, Dizziness, Leukocytosis, Abdominal pain, Viral illness Referrals: Alexi Morin Chi, MD [Primary Care Provider] -
--- NOTE | 2018-04-12 07:26 | NURSING ---
MED SURG OBS DEHYDRATION, DIZZINESS, ABD PAIN, LEUKOCYTOSIS SEMENTI
[2018-04-12 07:39] LABS: Mucous, Urine 0 SEEN /hpf (<or=2+)
[2018-04-12 07:42] LABS: Color, Urine Yellow (Yellow); Glucose, Dipstick Normal (Normal); Ketone-Dipstick 5 mg/dl (Negative); Leukocyte Esterase-Dipstick 25 /ul (Negative); Nitrite-Dipstick Negative (Negative); Occult Blood-Urine 10 /ul (Negative); Protein-Dipstick 30 mg/dl (Negative); Specific Gravity, Urine 1.025 (1.002-1.030); Urine Clarity Sl. Cloudy (Clear); Urine Urobilinogen 1 mg/dl (Normal)
[2018-04-12 07:43] LABS: Urine Bilirubin Dipstick 1 mg/dL (Negative)
[2018-04-12 07:48] LABS: Bacteria 1+ /hpf (None Seen); Hyaline Cast 5-10 SEEN /lpf (0-5); Red Blood Cells-Urine 0-5 SEEN /hpf (0-5); Squamous Epithelial Cells - UA 0-5 SEEN /hpf (5-10); White Blood Cells 0-5 SEEN /hpf (0-5)
--- NOTE | 2018-04-12 07:57 | HP.PCM_ITS ---
Problem List (1) Acute renal failure Status: Acute (2) Dehydration Status: Acute (3) Obesity Status: Chronic (4) Generalized osteoarthritis Status: Chronic (5) GERD (gastroesophageal reflux disease) Status: Chronic (6) Hyperglycemia Status: Acute History of Present Illness Date of Admission: 04/12/18 Chief Complaint: dizziness, N/V/D The patient is a 72 year old F with a past medical history of obesity, GERD, fibromyalgia and osteoarthritis who presented to the emergency department at [facility] on 04/12/2018 complaining of diarrhea, abdominal pain and lightheadedness. She had cataract surgery on 04/11/2018. On one trip to the bathroom she fell and she felt the room spinning. The dizziness got worse with sitting and standing. Vital signs of presentation to the emergency room were temp 98, pulse rate 75, blood pressure 103/74, respiratory rate 16 and she was 96% saturated on room air. Labs showed an elevated white blood cell count at 17.3 with 84% neutrophils. Hemoglobin was 16.9 due to hemoconcentration. Platelets were within normal limits. Electrolytes were unremarkable. The BUN was 20 and the creatinine was 1.45, up from 0.62 11 months ago and 0.83 in October 2017. Blood glucose is elevated at 190 and she has no history of diabetes mellitus. UA showed 0-5 white blood cells. There were 5-10 hyaline casts[address] A noncontrasted CT of the abdomen and pelvis was unremarkable. She is being admitted to the hospital with a dx of gastroenteritis with ARF. Her last BM was at 4 AM and it is currently 13:30. Last emesis was in the ED and she denies nausea currently. She is c/o heart burn and has a hx of a hiatal hernia Past Medical History Past Medical History (Chronic Problems): Chronic Problems (Last Reviewed 04/12/18 @ 13:41 by Roselia Vidal DO) Fibromyalgia (Chronic) Obesity (Chronic) Generalized osteoarthritis (Chronic) GERD (gastroesophageal reflux disease) (Chronic) Medical History: Medical History (Last Reviewed 04/12/18 @ 13:41 by Roselia Vidal DO) Lightheadedness (Acute) R42 Generalized abdominal pain (Acute) R10.84 Diarrhea (Acute) R19.7 Fibromyalgia (Chronic) Obesity (Chronic) E66.9 Generalized osteoarthritis (Chronic) M15.9 GERD (gastroesophageal reflux disease) (Chronic) K21.9 History of hysterectomy Z90.710 Left breast lump N63.20 Allergies latex Allergy (Verified 04/12/18 04:22) Swelling morphine Allergy (Verified 04/12/18 04:22) Other Penicillins Allergy (Verified 04/12/18 04:22) Hives hydrocodone bitartrate [From Vicodin] Adverse Reaction (Verified 04/12/18 04:22) Abd cramps/diarrhea Home Medications: Ambulatory Orders Medication Instructions Recorded Gabapentin [Neurontin] 300 mg PO QHS 02/07/16 Lisinopril [Zestril] 10 mg PO DAILY 02/07/16 Spironolactone [Aldactone] 25 mg PO DAILY 02/07/16 Tolterodine Tartrate [Detrol] 2 mg PO DAILY 02/07/16 Esomeprazole Mag Trihydrate 40 mg PO BID 03/09/16 [Nexium] aspirin 81 mg tablet,delayed 81 mg PO QDAY 11/14/17 release Surgical History: Surgical History (Last Reviewed 04/12/18 @ 13:41 by Roselia Vidal DO) History of bilateral knee replacement Z96.653 History of laparoscopic cholecystectomy Z90.49 History of left breast biopsy Onset Date: ~11/2017 Z98.890 History of repair of right rotator cuff Z98.890 History of tonsillectomy and adenoidectomy Z98.890 history bilateral breast biopsies Surgical History: appendectomy, cholecystectomy, hysterectomy, total knee arthroplasty - ?2, tonsillectomy, - - Breast biopsies for benign cysts, cardiac catheterization Psychiatric History: No pertinent psych hx 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 Lives: Spouse/ Significant Other Smoking Status: Never smoker Tobacco Use: Non-smoker Alcohol: Rare Drugs: None - *Family History Maternal Family History: Family History (Last Reviewed 04/12/18 @ 13:41 by Roselia Vidal DO) Father Diabetes Heart disease Mother Breast cancer Grandmother Cancer History Items: Cancer - Breast cancer Paternal Family History: Family History (Last Reviewed 04/12/18 @ 13:41 by Roselia Vidal DO) Father Diabetes Heart disease Mother Breast cancer Grandmother Cancer History Items: Diabetes, - - Parkinson's disease Review of Systems Constitutional: Denies: Chills, Fever, Weight Change HEENT: Denies: Difficulty Swallowing, Head Aches, Sinus Congestion, Sinus Drainage Cardiovascular: Reports: Light Headedness. Denies: Chest Pain, Palpitations Respiratory: Denies: Cough, Shortness of breath at rest, Sputum production Gastrointestinal: Reports: Abdominal Pain - crampy, Diarrhea, Nausea, Vomiting Genitourinary: Denies: Dysuria Musculoskeletal: Denies: Joint Pain, Joint Tenderness Skin: Denies: Rash, Wounds Neurological: Denies: Numbness, Tingling, Focal weakness Psychiatric: Denies: Anxiety, Depression, Homicidal Ideations, Suicidal Ideations Hematologic/ Lymphatic: Denies: Easy Bruising, Easy Bleeding VTE Information - Inpt Only VTE Present on Admission: No VTE Mechan Device Prophylaxis: SCD's, Knee High DELIA Hose VTE Pharm Prophylaxis ordered?: Yes Patient Problems: Active and Suspected Problems (Last Reviewed 04/12/18 @ 13:41 by Roselia Vidal DO) Dehydration (Acute) Dizziness (Acute) Leukocytosis (Acute) Abdominal pain (Acute) Viral illness (Acute) Acute renal failure (Acute) Hyperglycemia (Acute) - Physical Exam General: Alert, Oriented x3, Cooperative, No apparent distress HEENT: Atraumatic, PERRLA, EOMI, Normocephalic Oral: No Gingival or Mucosal Lesions/ Ulcerations, Dry Mucosa Neck: Supple, No JVD, No Nodes, No Nuchal Rigidity, Trachea Midline Lungs: Clear to auscultation, Normal air movement Cardiovascular: Regular rate, Normal S1, Normal S2, No murmurs, No rub noted, No Gallop Abdomen: Soft, Hypoactive Bowel Sounds, Distended - and tympanic, Tender - diffusely tender to palpation but, no guarding with palpation. There is increased tympany Extremities: No clubbing, No cyanosis, Capillary Refill Less than 3 Seconds, Edema - of the ankles BL- mild Skin: No rashes, No breakdown Musculoskeletal: No Tenderness to Palpation of Joints or Extremities Neurological: Cranial nerves II-XII grossly intact, Neuro grossly intact Psych/Mental Status: Normal Affect, Appropriate Vital Signs Temp Pulse Resp BP Pulse Ox 98.0 F 73 14 96/67 93 04/12/18 04:15 04/12/18 06:38 04/12/18 06:38 04/12/18 06:38 04/12/18 06:38 Oxygen Delivery Method Room Air Weight: 19 lb 15.582 oz Body Mass Index (BMI) 3.9 Finger Stick Blood Glucose 126 Laboratory Tests Past 24 Hrs 04/12/18 04/12/18 04/12/18 04:30 04:30 07:32 WBC 17.3 H RBC 6.04 H Hgb 16.9 H Hct 51.1 H MCV 84.6 MCH 28.0 MCHC 33.1 RDW 14.5 RDW Differential 44.6 H Plt Count 373 MPV 10.6 Immature Gran % (Auto) 0.300 Neut % (Auto) 84.0 H Lymph % (Auto) 9.1 L [place] % (Auto) 6.2 Eos % (Auto) 0.2 Baso % (Auto) 0.2 Absolute Neuts (auto) 14.6 H Absolute Lymphs (auto) 1.57 Total Counted Not Reportable Sodium 143 Potassium 4.3 Chloride 108 H Carbon Dioxide 25.0 Anion Gap 10 BUN 20 H Creatinine 1.45 H Estim Creat Clear Calc 5.16 Est GFR (MDRD) Af Amer 46 L Est GFR (MDRD) Non-Af 38 L BUN/Creatinine Ratio 13.8 Glucose 190 H Calcium 9.3 Total Bilirubin 0.60 AST 16 ALT 17 Alkaline Phosphatase 97 Total Protein 7.1 Albumin 3.1 L Globulin 4.0 Albumin/Globulin Ratio 0.8 L Lipase 189 Urine Color Yellow Urine Clarity Sl. Cloudy Urine pH 5.0 Ur Specific [place] 1.025 Urine Protein 30 H Urine Glucose (UA) Normal Urine Ketones 5 H Urine Occult Blood 10 H Urine Nitrite Negative Urine Bilirubin 1 H Urine Urobilinogen 1 H Ur Leukocyte Esterase 25 H Urine RBC Pending Urine WBC Pending Ur Squamous Epith Cells Pending Urine Bacteria Pending Urine Mucus Pending POC Glucose 04/12/18 06:09 POC Glucose 126 H Assessment/Plan All Active Problems (Last Reviewed 04/12/18 @ 13:41 by Roselia Vidal DO) Dehydration (Acute) Dizziness (Acute) Leukocytosis (Acute) Abdominal pain (Acute) Viral illness (Acute) Acute renal failure (Acute) Hyperglycemia (Acute) Lightheadedness (Acute) Generalized abdominal pain (Acute) Diarrhea (Acute) Impressions 1. gastroenteritis 2. ARF -suspect due to prerenal azotemia 3. dehydration 4. Recent cataract extraction right eye on 04/11/2018 5. Hiatal hernia with GERD 6. Leukocytosis with no fever-possibly secondary to stress reaction 7. Lactic acidosis-I suspect this is secondary to dehydration and acute renal failure. Following hydration it immediately dropped to 1.1. 8. Fibromyalgia 9. Hyperglycemia with no history of diabetes mellitus 10. Obesity hydrate Enteric pathogen panel anti-emetics ordered urine sodium and Creat to calculate a FENA Recheck the lab in the AM clear liquid diet Protonix for heartburn and PRN Mylanta Lovenox, TEDS and SCD's for DVT prophylaxis Code Visit Inpatient E&M: 71842 Init Hosp L2
[2018-04-12 08:31] LABS: Lactic Acid 2.5 mmol/L (0.4-2.0)
--- NOTE | 2018-04-12 08:34 | ED.RN ---
lactic acid 2.[address] lab[address] dr perez aware
[2018-04-12 09:47] LABS: Magnesium 2.3 mg/dL (1.6-2.6); Phosphorus 3.1 mg/dL (2.5-4.9)
[2018-04-12 09:57] LABS: Hemoglobin A1c 6.3 % (4.2-6.3)
[2018-04-12] MEDS: Lactated Ringers 1,000 ML 150 ML IV ×3 (10:10→22:41)
[2018-04-12] MEDS: Enoxaparin 30 MG/0.3 ML Syringe SC (10:11)
[2018-04-12] MEDS: Acetaminophen 325 MG Tablet 650 MG PO (11:56)
[2018-04-12 12:15] LABS: Reflex Lactate? Y
[2018-04-12 13:34] LABS: Lactic Acid 1.1 mmol/L (0.4-2.0)
[2018-04-12] MEDS: Mag Hydrox/Al Hydrox/Simeth 30 ML UDC 15 ML PO (14:46)
[2018-04-12 17:23] LABS: Urine Sodium 101 mmol/L (Not Establ.)
[2018-04-12] MEDS: Gabapentin 300 MG Capsule PO (22:30)
[2018-04-13 02:20] VITALS: BP 117/58; PULSE 62; RESP 16; TEMP 36.4; O2SAT 95
[2018-04-13] MEDS: Lactated Ringers 1,000 ML 150 ML IV (05:47)
[2018-04-13 07:18] LABS: Absolute Lymphocyte Count 1.59 X10^3/ul (0.83-4.51); Absolute Neutrophil Count 4.6 X10^3/uL (2.0-7.7); Basophil# 0.03 X10^3/uL; Basophil% 0.4 % (0-1); Eosinophil# 0.12 X10^3/uL; Eosinophils% 1.7 % (0-5); Hematocrit 39.3 % (37-47); Hemoglobin 12.6 g/dl (12.0-15.0); Lymphocyte # 1.59 X10^3/ul (4.0); Lymphocyte % 23.1 % (19-41); Mean Corp Hgb Conc 32.1 g/gl (32-36); Mean Corpuscular Hgb 28.1 pg (27.0-32.0); Mean Corpuscular Volume 87.5 fL (81-99); Mean Platelet Vol. 10.3 fl (6.2-12.0); Monocyte# 0.52 X10^3/uL; Monocyte% 7.6 % (0-10); Neutrophil % 67.1 % (47-70); POSITIVE COUNT NO; POSITIVE DIFFERENTIAL NO; POSITIVE MORPHOLOGY NO; Platelet Count 214 K/mm3 (150-450); RBC Distribution Width CV 14.5 % (11.6-14.6); RBC Distribution Width SD 45.7 fl (35.1-43.9); Red Blood Count 4.49 M/mm3 (4.2-5.4); White Blood Count 6.9 K/mm3 (4.4-11.0)
[2018-04-13 07:59] LABS: Anion Gap 6 (5-15); BUN 14 mg/dL (7-18); BUN/Creat Ratio 17.1 RATIO (10-20); Calcium,Total 8.2 mg/dL (8.5-10.1); Chloride 114 mmol/L (98-107); Creatinine, Serum 0.82 mg/dL (0.55-1.02); EST Glomerular Filtration Rate 73 mL/min (>60); Est Glom Filt Rate - Afr Amer 88 mL/min (>60); Estimated Creatinine Clearance 45.85 ml/min; Glucose 78 mg/dL (74-106); Potassium 3.9 mmol/L (3.5-5.1); Sodium Level 146 mmol/L (136-145)
[2018-04-13 08:20] VITALS: BP 108/54; PULSE 68; RESP 14; TEMP 37.1; O2SAT 94
[2018-04-13] MEDS: Enoxaparin 30 MG/0.3 ML Syringe SC (09:22)
[2018-04-13 10:00] VITALS: PULSE 68
[2018-04-13 11:01] VITALS: BP 130/66; PULSE 68; RESP 16; TEMP 36.6; O2SAT 96
--- NOTE | 2018-04-13 11:02 | DCINST_ITS ---
- Discharge Diagnoses Current Active Problems: Current Active and Chronic Problems (Last Reviewed 04/12/18 @ 13:41 by Roselia Vidal DO) Dehydration (Acute) Dizziness (Acute) Leukocytosis (Acute) Abdominal pain (Acute) Viral illness (Acute) Acute renal failure (Acute) Hyperglycemia (Acute) You will use the following diet at home:: No restrictions Your food should be the consistency of: Regular Discharge Activity: Return to Normal Activity Call your doctor if you observe: Fever of 101 or Higher, Dizziness, Fainting spells Allergies/Adverse Reactions: Allergies latex Allergy (Verified 04/12/18 04:22) Swelling morphine Allergy (Verified 04/12/18 09:38) Other hallucinations Penicillins Allergy (Verified 04/12/18 04:22) Hives hydrocodone bitartrate [From Vicodin] Adverse Reaction (Verified 04/12/18 04:22) Abd cramps/diarrhea Medications to take at Discharge Gabapentin [Neurontin] 300 mg PO QHS 02/07/16 Lisinopril [Zestril] 10 mg PO DAILY 02/07/16 Spironolactone [Aldactone] 25 mg PO DAILY 02/07/16 Tolterodine Tartrate [Detrol] 2 mg PO DAILY 02/07/16 Esomeprazole Mag Trihydrate [Nexium] 40 mg PO BID 03/09/16 aspirin 81 mg tablet,delayed release 81 mg PO QDAY 11/14/17 Primary Care Physician: Alexi Morin Chi, MD [Primary Care Provider] - Within 2 Weeks Test Results: Test results from this visit will be discussed in further detail at your follow- up appointment, if applicable. Proposed Discharge Date: 04/13/18
--- NOTE | 2018-04-13 11:05 | DS.PCM_ITS ---
Discharge Date and Diagnosis - Problem List Patient Problems: Active and Suspected Problems (Last Reviewed 04/12/18 @ 13:41 by Roselia Vidal DO) [place] (acute kidney injury) (Acute) Dehydration (Acute) Dizziness (Acute) Leukocytosis (Acute) Abdominal pain (Acute) Viral illness (Acute) Acute renal failure (Acute) Hyperglycemia (Acute) Date of Admission: 04/12/18 Date of Discharge: 04/13/18 - Primary Discharge Diagnosis Active and Suspected Problems (Last Reviewed 04/12/18 @ 13:41 by Roselia Vidal DO) [place] (acute kidney injury) (Acute) Dehydration (Acute) Dizziness (Acute) Leukocytosis (Acute) Abdominal pain (Acute) Viral illness (Acute) Acute renal failure (Acute) Hyperglycemia (Acute) - Secondary Discharge Diagnosis Chronic Problems (Last Reviewed 04/12/18 @ 13:41 by Roselia Vidal DO) Fibromyalgia (Chronic) Obesity (Chronic) Generalized osteoarthritis (Chronic) GERD (gastroesophageal reflux disease) (Chronic) Hospital Course and Treatment Operations: None Procedures: None Summary of Care Provided: The patient is a 72 year old F presents with dizziness. Patient did have vomiting and diarrhea. Patient presented with with acute kidney injury, with a creatinine of 1.45. Patient also noted to have white blood cells of 17.3. Is felt that her symptoms are related with a viral gastroenteritis that caused her to be dehydrated. Patient received IV fluids and patient states that overall she is feeling better. Patient's diet is being advanced to regular and if she tolerates that, then she can be discharged home. [] Patient Problems: Active and Suspected Problems (Last Reviewed 04/12/18 @ 13:41 by Roselia Vidal DO) [place] (acute kidney injury) (Acute) Dehydration (Acute) Dizziness (Acute) Leukocytosis (Acute) Abdominal pain (Acute) Viral illness (Acute) Acute renal failure (Acute) Hyperglycemia (Acute) - Physical Exam General: Alert, Cooperative, No apparent distress HEENT: Atraumatic, Normocephalic Oral: Moist Mucosa, No Gingival or Mucosal Lesions/ Ulcerations Neck: No Nodes, Thyroid Normal Size and Texture Lungs: Clear to auscultation, Normal air movement, No rhonchi, No wheeze Cardiovascular: Regular rate, Regular Rhythm, Normal S1, Normal S2, No murmurs Abdomen: Bowel Sounds Present, Soft, Non Tender, Non-Distended, No Hepato- splenomegaly Extremities: No edema, No Calf Tenderness Skin: No rashes, No breakdown Musculoskeletal: No Tenderness to Palpation of Joints or Extremities, No Muscle Wasting Psych/Mental Status: Normal Affect, Appropriate Vital Signs Temp Pulse Resp BP Pulse Ox 36.4 C L 62 16 117/58 L 95 04/13/18 02:20 04/13/18 02:20 04/13/18 02:20 04/13/18 02:20 04/13/18 02:20 Oxygen Delivery Method Room Air Weight: 83.234 kg Body Mass Index (BMI) 35.8 Finger Stick Blood Glucose 126 Intake and Output for Last 24 Hours 04/11/18 04/12/18 04/13/18 23:59 23:59 23:59 Intake Total 676 / 676 3310 / 3310 Output Total 175 / 175 600 / 600 Balance 501 / 501 2710 / 2710 Laboratory Tests Past 24 Hrs 04/12/18 04/12/18 04/12/18 13:04 13:43 13:43 WBC RBC Hgb Hct MCV MCH MCHC RDW RDW Differential Plt Count MPV Immature Gran % (Auto) Neut % (Auto) Lymph % (Auto) [place] % (Auto) Eos % (Auto) Baso % (Auto) Absolute Neuts (auto) Absolute Lymphs (auto) Total Counted Sodium Potassium Chloride Carbon Dioxide Anion Gap BUN Creatinine Estim Creat Clear Calc Est GFR (MDRD) Af Amer Est GFR (MDRD) Non-Af BUN/Creatinine Ratio Glucose Lactic Acid 1.1 Calcium Ur Random Sodium 101 Urine Creatinine 240.00 04/13/18 04/13/18 06:30 06:30 WBC 6.9 RBC 4.49 Hgb 12.6 Hct 39.3 MCV 87.5 MCH 28.1 MCHC 32.1 RDW 14.5 RDW Differential 45.7 H Plt Count 214 MPV 10.3 Immature Gran % (Auto) 0.100 Neut % (Auto) 67.1 Lymph % (Auto) 23.1 [place] % (Auto) 7.6 Eos % (Auto) 1.7 Baso % (Auto) 0.4 Absolute Neuts (auto) 4.6 Absolute Lymphs (auto) 1.59 Total Counted Not Reportable Sodium 146 H Potassium 3.9 Chloride 114 H Carbon Dioxide 26.0 Anion Gap 6 BUN 14 Creatinine 0.82 Estim Creat Clear Calc 45.85 Est GFR (MDRD) Af Amer 88 Est GFR (MDRD) Non-Af 73 BUN/Creatinine Ratio 17.1 Glucose 78 Lactic Acid Calcium 8.2 L Ur Random Sodium Urine Creatinine Discharge Diet: No Restrictions Discharge Activity: Return to Normal Activity Call your doctor if you observe: Fever of 101 or Higher, Dizziness, Fainting spells Home Medications: Medications to take at Discharge Gabapentin [Neurontin] 300 mg PO QHS 02/07/16 Lisinopril [Zestril] 10 mg PO DAILY 02/07/16 Spironolactone [Aldactone] 25 mg PO DAILY 02/07/16 Tolterodine Tartrate [Detrol] 2 mg PO DAILY 02/07/16 Esomeprazole Mag Trihydrate [Nexium] 40 mg PO BID 03/09/16 aspirin 81 mg tablet,delayed release 81 mg PO QDAY 11/14/17 Primary Care Physician: Alexi Morin Chi, MD [Primary Care Provider] - Within 2 Weeks Disposition: Home Minutes spent on discharge:: 26 Patient Condition:: Good Medical Necessity - Tobacco Use Smoking Status: Never smoker Tobacco Use: Non-smoker Meaningful Use Info Meaningful Use Diagnoses (Choose all that apply): None applicable Code Visit OBSV E&M: 47998 Observation care discharge
--- NOTE | 2018-04-13 11:08 | CM.UR ---
See donations attendant. Met face to face with patient to begin discharge planning. Introduced myself and my role at [facility]. Agreed to assessment at this time. Denies anticipating any dc needs. Verb understanding to bring in living will for hospital records. Instructed case management will remain available should something arise. Verb understanding. Jerrod Olivares RN, [facility].
== END 2018-04-13 12:45 | disposition home or self-care (01) | DRG 683 ==
LOC: ED 07:47 → MS3 07:53
PROVIDERS: Emergency Medicine; Admitting Provider Internal Medicine; Emergency Provider Emergency Medicine; Family Provider Family Medicine Geriatric Medicine; PCP Family Medicine Geriatric Medicine
DX: N17.9 Acute kidney failure, unspecified (principal); E87.2 Acidosis; A08.4 Viral intestinal infection, unspecified; K44.9 Diaphragmatic hernia without obstruction or gangrene; K21.9 Gastro-esophageal reflux disease without esophagitis; M79.7 Fibromyalgia; M15.9 Polyosteoarthritis, unspecified; E66.9 Obesity, unspecified; Z79.899 Other long term (current) drug therapy; E86.0 Dehydration; R73.9 Hyperglycemia, unspecified; Z68.35 Body mass index [BMI] 35.0-35.9, adult
CPT/HCPCS: 36415; 70450; 73564; 74176; 80048; 80053; 81001; 82570; 82962; 83036; 83605; 83690; 83735; 84100; 84300; 85025; 87086; 93005; 97802; 99285; J7030; J7120; A4216; J2405

== ENCOUNTER → 2018-04-17 15:02 | Outpatient (CLI) | payer MEDICARE, SELFPAY ==
[2018-04-12 09:23] VITALS: BMI 35.8
[2018-04-17 18:02] LABS: Absolute Lymphocyte Count 1.53 X10^3/ul (0.83-4.51); Absolute Neutrophil Count 4.4 X10^3/uL (2.0-7.7); Basophil# 0.04 X10^3/uL; Basophil% 0.6 % (0-1); Eosinophil# 0.25 X10^3/uL; Eosinophils% 3.7 % (0-5); Hematocrit 41.2 % (37-47); Hemoglobin 13.2 g/dl (12.0-15.0); Lymphocyte # 1.53 X10^3/ul (4.0); Lymphocyte % 22.8 % (19-41); Mean Corpuscular Hgb 27.7 pg (27.0-32.0); Mean Corpuscular Volume 86.6 fL (81-99); Mean Platelet Vol. 10.2 fl (6.2-12.0); Monocyte# 0.52 X10^3/uL; Monocyte% 7.7 % (0-10); Neutrophil # 4.35 X10^3/uL (2.7-7.7); Neutrophil % 64.9 % (47-70); Platelet Count 255 K/mm3 (150-450); RBC Distribution Width CV 14.1 % (11.6-14.6); RBC Distribution Width SD 43.7 fl (35.1-43.9); Red Blood Count 4.76 M/mm3 (4.2-5.4); White Blood Count 6.7 K/mm3 (4.4-11.0)
[2018-04-17 18:09] LABS: Anion Gap 9 (5-15); BUN 18 mg/dL (7-18); BUN/Creat Ratio 20.1 RATIO (10-20); Chloride 107 mmol/L (98-107); Creatinine, Serum 0.89 mg/dL (0.55-1.02); EST Glomerular Filtration Rate 66 mL/min (>60); Est Glom Filt Rate - Afr Amer 80 mL/min (>60); Glucose 83 mg/dL (74-106); POSITIVE COUNT NO; POSITIVE DIFFERENTIAL NO; POSITIVE MORPHOLOGY NO; Potassium 3.7 mmol/L (3.5-5.1); Sodium Level 145 mmol/L (136-145)
== END ==
PROVIDERS: Family Provider Family Medicine Geriatric Medicine; PCP Family Medicine Geriatric Medicine; Visit Provider Family Medicine Geriatric Medicine
DX: N39.0 Urinary tract infection, site not specified (principal); R10.9 Unspecified abdominal pain; R42 Dizziness and giddiness
CPT/HCPCS: 36415; 80048; 85025; 87077; 87086; 87088; 87186

== ENCOUNTER → 2018-05-14 14:45 | Outpatient (CLI) | payer MEDICARE, SELFPAY ==
[2018-04-12 09:23] VITALS: BMI 35.8
[2018-05-14 17:33] LABS: Absolute Neutrophil Count 4.2 X10^3/uL (2.0-7.7); Basophil# 0.03 X10^3/uL; Basophil% 0.4 % (0-1); Eosinophil# 0.18 X10^3/uL; Eosinophils% 2.6 % (0-5); Hematocrit 39.8 % (37-47); Hemoglobin 12.5 g/dl (12.0-15.0); Lymphocyte % 27.8 % (19-41); Mean Corp Hgb Conc 31.4 g/gl (32-36); Mean Corpuscular Hgb 27.4 pg (27.0-32.0); Mean Corpuscular Volume 87.1 fL (81-99); Mean Platelet Vol. 10.1 fl (6.2-12.0); Monocyte# 0.54 X10^3/uL; Monocyte% 7.9 % (0-10); Neutrophil # 4.16 X10^3/uL (2.7-7.7); POSITIVE COUNT NO; POSITIVE DIFFERENTIAL NO; POSITIVE MORPHOLOGY NO; Platelet Count 244 K/mm3 (150-450); RBC Distribution Width CV 14.4 % (11.6-14.6); RBC Distribution Width SD 45.6 fl (35.1-43.9); Red Blood Count 4.57 M/mm3 (4.2-5.4); White Blood Count 6.8 K/mm3 (4.4-11.0)
[2018-05-14 17:48] LABS: Vitamin D,25 Hydroxy 12.5 ng/mL (29.95-100.01)
[2018-05-14 17:54] LABS: ALB/GLOB Ratio 0.8 RATIO (0.9-2.4); AST(SGOT) 15 U/L (15-37); Alanine Aminotransfer ALT/SGPT 17 U/L (13-56); Alkaline Phosphatase 102 U/L (45-117); Anion Gap 8 (5-15); BUN 17 mg/dL (7-18); BUN/Creat Ratio 22.6 RATIO (10-20); Calcium,Total 8.3 mg/dL (8.5-10.1); Chloride 108 mmol/L (98-107); Creatinine, Serum 0.75 mg/dL (0.55-1.02); EST Glomerular Filtration Rate 81 mL/min (>60); Est Glom Filt Rate - Afr Amer 98 mL/min (>60); Glucose 73 mg/dL (74-106); Potassium 4.1 mmol/L (3.5-5.1); Sodium Level 142 mmol/L (136-145); Thyroid Stim Hormone (TSH) 0.82 uIU/mL (0.358-3.74)
--- OUTSIDE RECORDS SUMMARY | 2018-07-16 20:56 | XMS RPT_ITS ---
:1945 Author Organization OHIP Support Name Relationship Address Phone FLORENCEBRIAN GATICA Unavailable [id number] + [place] [address] MARIA TERESA HENRIQUEZ Unavailable Unavailable + [place] [address] R Unavailable Unavailable Unavailable BRIAN HENRIQUEZ Unavailable [address] + [place] [address] OFELIA HENRIQUEZLAS Unavailable Unavailable + [place] [address] R Unavailable Unavailable Unavailable BRIAN HENRIQUEZ Unavailable [address] + [place] [address] OFELIA HENRIQUEZLAS Unavailable Unavailable + [place] [address] R Unavailable Unavailable Unavailable BRIAN HENRIQUEZ Unavailable [address] + [place] [address] OFELIA HENRIQUEZLAS Unavailable Unavailable + [place] [address] R Unavailable Unavailable Unavailable BRIAN HENRIQUEZ Unavailable [address] + [place] [address] OFELIA HENRIQUEZLAS Unavailable Unavailable + [place] [address] R Unavailable Unavailable Unavailable BRIAN HENRIQUEZ Unavailable [address] + [place] [address] MARIA TERESA HENRIQUEZ Unavailable . + [place] [address] R Unavailable Unavailable Unavailable BRIAN HENRIQUEZ Unavailable [address] + [place] [address] MARIA TERESA HENRIQUEZ Unavailable . + [place] [address] R Unavailable Unavailable Unavailable BRIAN HENRIQUEZ Unavailable [address] + [place] [address] FLORENCE, MARIA TERESA Unavailable Unavailable + [place] [address] R Unavailable Unavailable Unavailable BRIAN HENRIQUEZ Unavailable [address] + [place] [address] FLORENCE, MARIA TERESA Unavailable . + [place] [address] R Unavailable Unavailable Unavailable BRIAN HENRIQUEZ Unavailable [address] + [place] [address] FLORENCE, MARIA TERESA Unavailable . + [place] [address] R Unavailable Unavailable Unavailable BRIAN HENRIQUEZ Unavailable [address] + [place] [address] FLORENCE, MARIA TERESA Unavailable Unavailable + R Unavailable Unavailable Unavailable BRIAN HENRIQUEZ Unavailable [address] + [place] [address] FLORENCE, MARIA TERESA Unavailable [address] + [place] [address] R Unavailable Unavailable Unavailable BRIAN HENRIQUEZ Unavailable [address] + [place] [address] FLORENCE, MARIA TERESA Unavailable [address] + [place] [address] R Unavailable Unavailable Unavailable BRIAN HENRIQUEZ Unavailable [address] + [place] [address] FLORENCE, MARIA TERESA Unavailable [address] + [place] [address] R Unavailable Unavailable Unavailable BRIAN HENRIQUEZ Unavailable [address] + [place] [address] FLOERNCE, MARIA TERESA Unavailable [address] + [place] [address] R Unavailable Unavailable Unavailable FLORENCE BRIAN Unavailable [address] + [place] [address] FLORENCE, MARIA TERESA Unavailable [address] [phone] [place] [address] R Unavailable Unavailable Unavailable FLORENCE BRIAN Unavailable [address] + [place] [address] MARIA TERESA HENRIQUEZ Unavailable [address] [phone] [place] [address] R Unavailable Unavailable Unavailable BRIAN HENRIQUEZ Unavailable [address] + [place] [address] MARIA TERESA HENRIQUEZ Unavailable [address] [phone] [place] [address] R Unavailable Unavailable Unavailable BRIAN HENRIQUEZ Unavailable [address] + [place] [address] MARIA TERESA HENRIQUEZ Unavailable [address] [phone] [place] [address] R Unavailable Unavailable Unavailable BRIAN HENRIQUEZ Unavailable [address] + [place] [address] FLORENCEMARIA TERESA Unavailable [address] [phone] [place] [address] R Unavailable Unavailable Unavailable BRIAN HENRIQUEZ Unavailable [address] + [place] [address] MARIA TERESA HENRIQUEZ Unavailable [address] [phone] [place] [address] R Unavailable Unavailable Unavailable BRIAN HENRIQUEZ Unavailable [address] + [place] [address] FLORENCEMARIA TERESA GATICA Unavailable [address] [phone] [place] [address] R Unavailable Unavailable Unavailable BRIAN HENRIQUEZ Unavailable [address] + [place] [address] FLORENCEMARIA TERESA Unavailable [address] [phone] [place] [address] R Unavailable Unavailable Unavailable Care Team Providers Name Role Phone MARKUS, ZAIRA NABI Attending Unavailable MARKUS, ZAIRA NABI Attending Unavailable MARKUS, ZAIRA NABI Referring Unavailable MARKUS, ZAIRA NABI Attending Unavailable MARKUS, ZAIRA NABI Referring Unavailable MARKUS, ZAIRA NABI Attending Unavailable MARKUS, ZAIRA NABI Referring Unavailable MARKUS, ZAIRA NABI Attending Unavailable MARKUS, ZAIRA NABI Referring Unavailable Mikel, Alexi Chi Primary Care Unavailable Sementi, Danya Admitting Unavailable Jopperi, Campos Attending Unavailable Sementi, Danya Admitting Unavailable Sementi, Danya Attending Unavailable Mikel, Alexi Chi Primary Care Unavailable Sementi, Danya Consulting Unavailable Sementi, Danya Admitting Unavailable Jopperi, Campos Attending Unavailable Mikel, Alexi Chi Primary Care Unavailable Jopperi, Campos Consulting Unavailable Mikel, Alexi Chi Attending Unavailable Mikel, Alexi Chi Primary Care Unavailable Mikel, Alexi Chi Attending Unavailable Mikel, Alexi Chi Primary Care Unavailable Mikel, Alexi Chi Attending Unavailable Mikel, Alexi Chi Primary Care Unavailable Mikel, Alexi Chi Attending Unavailable Mikel, Alexi Chi Primary Care Unavailable Mikel, Alexi Chi Attending Unavailable Mikel, Alexi Chi Primary Care Unavailable Mikel, Alexi Chi Primary Care Unavailable [place] Attending Unavailable Mikel, Alexi Chi Attending Unavailable Mikel, Alexi Chi Primary Care Unavailable Mikel, Alexi Chi Primary Care Unavailable Miekl, Alexi Chi Attending Unavailable Mikel, Alexi Chi Referring Unavailable Mikel, Alexi Chi Attending Unavailable Mikel, Alexi Chi Primary Care Unavailable Mikel, Alexi Chi Attending Unavailable Mikel, Alexi Chi Referring Unavailable Mikel, Alexi Chi Primary Care Unavailable Mikel, Alexi Chi Attending Unavailable Mikel, Alexi Chi Referring Unavailable Mikel, Alexi Chi Primary Care Unavailable Mikel, Alexi Chi Attending Unavailable Mikel, Alexi Chi Primary Care Unavailable Jung Zee Attending Unavailable Mikel, Alexi Chi Referring Unavailable Mikel, Alexi Chi Primary Care Unavailable Jung Zee Attending Unavailable Saadia, Jung Referring Unavailable Mikel, Alexi Chi Primary Care Unavailable [place]u mccollumel Attending Unavailable Mikel, Alexi Chi Referring Unavailable Mikel, Alexi Chi Primary Care Unavailable SaadiaXu mccollumel Attending Unavailable Mikel, Alexi Chi Referring Unavailable Mikel, Alexi Chi Primary Care Unavailable SaadiaXu mccollumel Attending Unavailable Mikel, Alexi Chi Primary Care Unavailable Saadia Jung Attending Unavailable Mikel, Alexi Chi Referring Unavailable Mikel, Alexi Chi Primary Care Unavailable Mikel, Alexi Chi Attending Unavailable Mikel, Alexi Chi Primary Care Unavailable Mikel, Alexi Chi Primary Care Unavailable Tereletsky, Leroy Admitting Unavailable Tereletsky, Leroy Attending Unavailable PROBLEMS PROBLEMS DATE TYPE CONDITION / CODE ATTENDING STATUS SOURCE 12/17/2017 Unknown N63.20 - Jung Zee Active [facility] Unspecified lump Community in the left Hospital breast, Repository unspecified quadrant / N63.20(ICD-10) 11/29/2017 Active Abnormal weight MARKUS, ZAIRA [facility] R63.4(ICD-10) Repository 08/27/2017 Unknown R63.0 - Anorexia Mikel, Alexi Chi Active [place] / R63.0(ICD-10) [facility] Repository 07/24/2017 Active Dysphagia, MARKUS, ZAIRA Active [facility] unspecified / [facility] R13.10(ICD-10) Repository 05/31/2017 Unknown N39.0 - Urinary Mikel, Alexi Chi Active [facility] tract infection, Community site not Hospital specified / Repository N39.0(ICD-10) PROCEDURES PROCEDURES No Procedure Records FoundRESULTS RESULTS CBC W/DIFF, AUTOMATED Collected: 05/14/2018 Status: F Source: [place] 2:49 PM [facility] REPOSITORY TYPE CODE TESTS RESULT OUT OF RANGE REFERENCE UNITS LAB L100.1000 4.4-11.0 K/mm3 Normal WBC 6.8 LAB L100.1200 4.2-5.4 M/mm3 Normal RBC 4.57 LAB L100.1300 12.0-15.0 g/dl Normal HGB 12.5 LAB L100.1400 37-47 % Normal HCT 39.8 LAB L100.1500 81-99 fL Normal MCV 87.1 LAB L100.1600 27.0-32.0 pg Normal MCH 27.4 LAB L100.1700 32-36 g/gl Low MCHC 31.4 LAB L100.1810 11.6-14.6 % Normal RDW CV 14.4 LAB L100.1820 35.1-43.9 fl High RDW SD 45.6 LAB L100.1900 150-450 K/mm3 Normal PLT 244 LAB L100.2000 6.2-12.0 fl Normal MPV 10.1 LAB L100.2100 47-70 % Normal NEUT% 61.0 LAB L100.2200 19-41 % Normal LY% 27.8 LAB L100.2300 0-10 % Normal MONO% 7.9 LAB L100.2400 0-5 % Normal EO% 2.6 LAB L100.2500 0-1 % Normal BASO% 0.4 LAB L100.2550 0.0-0.9 % Normal IM GRAN % 0.300 Result Comment: IG% - Immature Granulocytes (promyelocytes, myelocytes and metamyelocytes) > 1% indicates that a LEFT SHIFT is Present. LAB L100.2620 2.0-7.7 X10 3/uL Normal Absolute Neut 4.2 LAB L100.2720 0.83-4.51 X10 3/ul Normal Absolute Lymph 1.90 Performed By: #### L100.0100 #### [facility] [address] [place], [place], [address] VITAMIN D,25 HYDROXY Collected: 05/14/2018 Status: F Source: [place] 2:49 PM [facility] REPOSITORY TYPE CODE TESTS RESULT OUT OF REFERENCE UNITS RANGE LAB L506.1000 29.95-100.01 ng/mL Low Vitamin D 12.5 25-OH Result Comment: Vitamin D 25(OH) Status Range Deficiency <20 ng/mL (50nmol/L) Insuffciency 20 - 30 ng/mL (50 - 75 nmol/L) Sufficiency 30 - 100 ng/mL (75 - 250 nmol/L) Toxicity >100 ng/mL (>250 nmol/L) Performed By: #### L506.1000 #### [facility] [address] [facility] [place], [place], [address] COMPREHENSIVE METABOLIC Collected: 05/14/2018 Status: F [facility] PM [facility] REPOSITORY TYPE CODE TESTS RESULT OUT OF RANGE REFERENCE UNITS LAB L501.0100 74-106 mg/dL Low GLU 73 Result Comment: Please note revised GLUCOSE reference range effective 2017. LAB L501.1000 7-18 mg/dL Normal BUN 17 LAB L501.1100 0.55-1.02 mg/dL Normal CREAT,SERUM 0.75 Result Comment: The validity of the calculated GFR AND GFRAA in patients over 70 years has not been determined. Clinical correlation is essential. LAB L501.1110 >60 mL/min Normal EST GFR 81 Result Comment: Non- GFR Calc LAB L501.1115 >60 mL/min Normal EST GFR - AA 98 Result Comment: GFR Calc LAB L501.1300 10-20 RATIO High BUN/CRE 22.6 LAB L501.1500 6.4-8.2 g/dL T Normal PROT 7.0 LAB L501.1800 3.2-5.0 g/dL Low ALB 3.0 LAB L501.1950 2.2-4.2 g/dL Normal GLOB 4.0 LAB L501.2000 0.9-2.4 RATIO Low A/G 0.8 LAB L501.2200 8.5-10.1 mg/dL Low CA 8.3 LAB L501.4100 15-37 U/L Normal AST 15 LAB L501.4305 45-117 U/L Normal ALK P 102 LAB L501.4405 13-56 U/L Normal ALT 17 LAB L501.4600 0.20-1.00 mg/dL T Normal BILI 0.40 LAB L501.5300 136-145 mmol/L NA Normal 142 LAB L501.5600 3.5-5.1 mmol/L K Normal 4.1 LAB L501.5900 98-107 mmol/L High CL 108 LAB L501.6100 21.0-32.0 mmol/L Normal CO2 26.0 LAB L501.6200 5-15 Normal GAP 8 Performed By: #### L500.4050, L501.9520 #### [facility] [address] [place], [place], [address] THYROID STIM HORMONE Collected: 05/14/2018 Status: F Source: [place] (TSH) 2:49 PM [facility] REPOSITORY TYPE CODE TESTS RESULT OUT OF RANGE REFERENCE UNITS LAB L501.9520 0.358-3.74 uIU/mL Normal TSH 0.82 Performed By: #### L500.4050, L501.9520 #### [facility] [address] [place], [place], [address] BASIC METABOLIC Collected: 04/17/2018 Status: F Source: [place] PROFILE (BMP) 3:04 PM [facility] REPOSITORY TYPE CODE TESTS RESULT OUT OF RANGE REFERENCE UNITS LAB L501.0100 74-106 mg/dL Normal GLU 83 Result Comment: Please note revised GLUCOSE reference range effective 2017. LAB L501.1000 7-18 mg/dL Normal BUN 18 LAB L501.1100 0.55-1.02 mg/dL Normal CREAT,SERUM 0.89 Result Comment: The validity of the calculated GFR AND GFRAA in patients over 70 years has not been determined. Clinical correlation is essential. LAB L501.1110 >60 mL/min Normal EST GFR 66 Result Comment: Non- GFR Calc LAB L501.1115 >60 mL/min Normal EST GFR - AA 80 Result Comment: GFR Calc LAB L501.1300 10-20 RATIO High BUN/CRE 20.1 LAB L501.2200 8.5-10.1 mg/dL CA Normal 9.0 LAB L501.5300 136-145 mmol/L NA Normal 145 LAB L501.5600 3.5-5.1 mmol/L K Normal 3.7 LAB L501.5900 98-107 mmol/L CL Normal 107 LAB L501.6100 21.0-32.0 mmol/L Normal CO2 29.0 LAB L501.6200 5-15 Normal GAP 9 Performed By: #### L500.2500 #### [facility] [address] [place], [address] CBC W/DIFF, AUTOMATED Collected: 04/17/2018 Status: F Source: [place] 3:04 PM [facility] REPOSITORY TYPE CODE TESTS RESULT OUT OF RANGE REFERENCE UNITS LAB L100.1000 4.4-11.0 K/mm3 Normal WBC 6.7 LAB L100.1200 4.2-5.4 M/mm3 Normal RBC 4.76 LAB L100.1300 12.0-15.0 g/dl Normal HGB 13.2 LAB L100.1400 37-47 % Normal HCT 41.2 LAB L100.1500 81-99 fL Normal MCV 86.6 LAB L100.1600 27.0-32.0 pg Normal MCH 27.7 LAB L100.1700 32-36 g/gl Normal MCHC 32.0 LAB L100.1810 11.6-14.6 % Normal RDW CV 14.1 LAB L100.1820 35.1-43.9 fl Normal RDW SD 43.7 LAB L100.1900 150-450 K/mm3 Normal PLT 255 LAB L100.2000 6.2-12.0 fl Normal MPV 10.2 LAB L100.2100 47-70 % Normal NEUT% 64.9 LAB L100.2200 19-41 % Normal LY% 22.8 LAB L100.2300 0-10 % Normal MONO% 7.7 LAB L100.2400 0-5 % Normal EO% 3.7 LAB L100.2500 0-1 % Normal BASO% 0.6 LAB L100.2550 0.0-0.9 % Normal IM GRAN % 0.300 Result Comment: IG% - Immature Granulocytes (promyelocytes, myelocytes and metamyelocytes) > 1% indicates that a LEFT SHIFT is Present. LAB L100.2620 2.0-7.7 X10 3/uL Normal Absolute Neut 4.4 LAB L100.2720 0.83-4.51 X10 3/ul Normal Absolute Lymph 1.53 Performed By: #### L100.0100 #### [facility] [address] [place], [place], [address] Observed: 04/17/2018 Status: F Source: [place] CULTURE, URINE 3:04 PM [facility] REPOSITORY Urine Culture ORGANISM 1: Klebsiella pneumoniae sp pneum Tranquillity Count >100,000 Klebsiella pneumoniae sp pneum: REACTION Amoxacillin/Clavulanic Acid $ 4 S Ampicillin $ 16 R Ampicillin/Sulbactam $ 4 S Cefazolin $ <=4 S Cefepime $ <=1 S Ceftriaxone $ <=1 S Ciprofloxacin $ <=0.25 S ESBL - Ertapenim $$$ <=0.5 S Gentamicin $ <=1 S Imipenem *NF <=0.25 S Levofloxacin $ <=0.12 S Nitrofurantoin $ <=16 S Piperacillin/Tazobactam $$ <=4 S Tobramycin $ <=1 S Trimethoprim/Sulfametho $ <=20 S (NF) indicates non-formulary drug at [facility]. Approval by Infectious Disease Specialist required before non-formulary drugs may be ordered and/or dispensed. Performed By: #### M100.0650 #### [facility] [address] [place], [place], [id number] 12 LEAD ELECTROCARDIOGRAM Observed: 04/17/2018 Status: F Source: [place] 2:36 PM [facility] REPOSITORY [facility] Cardiovascular Services [address] [place] [address] 12 Lead EKG 04/12/18 0454 MR#: [id number] Acct: [id number] Name: GLORY HENRIQUEZ Rep #: [id number] : 1945 72 From: Jung Ballard MD Attending Dr: Campos Reynolds DO Status: DIS IN Ordering Dr: Campos Tomlin DO Date: 04/12/18 Location: MS3 Sex: F C Admitted: 04/12/18 Test Reason : DIZZINESS Blood Pressure : / mmHG Vent. Rate : 069 BPM Atrial Rate : 069 BPM P-R Int : 148 ms QRS Dur : 064 ms QT Int : 444 ms P-R-T Axes : 067 -06 -08 degrees QTc Int : 475 ms Normal sinus rhythm Possible Inferior infarct , age undetermined Abnormal ECG Confirmed by JUNG BALLARD ([id number]), web content editor BANDAR PATEL ([id number]) on 04/17/2018 2:36:32 PM Referred By: ASUNCION Confirmed By:JUNG BALLARD 04/17/18 1436 Date Jung Ballard MD CC: Campos Reynolds DO; Campos Tomlin DO; Alexi Galindo MD Signed DISCHARGE SUMMARY Observed: 04/13/2018 Status: F Source: [place] 11:05 AM [facility] Medical Records Department [address] [place] [address] Discharge Summary 04/13/18 1102 MR#: [id number] Acct: [id number] Name: GLORY HENRIQUEZ Rep #: [id number] : 1945 72 From: Campos Reynolds DO PCP: Mikel BENNETT,Alexi Cárdenas Status: ADM IN Y Location: MS3 RN161-1 Discharge Date and Diagnosis - Problem List Patient Problems: Active and Suspected Problems (Last Reviewed 04/12/18 @ 13:41 by Roselia Vidal DO) SHELTON (acute kidney injury) (Acute) Dehydration (Acute) Dizziness (Acute) Leukocytosis (Acute) Abdominal pain (Acute) Viral illness (Acute) Acute renal failure (Acute) Hyperglycemia (Acute) Date of Admission: 04/12/18 Date of Discharge: 04/13/18 - Primary Discharge Diagnosis Active and Suspected Problems (Last Reviewed 04/12/18 @ 13:41 by Roselia Vidal DO) SHELTON (acute kidney injury) (Acute) Dehydration (Acute) Dizziness (Acute) Leukocytosis (Acute) Abdominal pain (Acute) Viral illness (Acute) Acute renal failure (Acute) Hyperglycemia (Acute) - Secondary Discharge Diagnosis Chronic Problems (Last Reviewed 04/12/18 @ 13:41 by Roselia Vidal DO) Fibromyalgia (Chronic) Obesity (Chronic) Generalized osteoarthritis (Chronic) GERD (gastroesophageal reflux disease) (Chronic) Hospital Course and Treatment Operations: None Procedures: None Summary of Care Provided: The patient is a 72 year old F presents with dizziness. Patient did have vomiting and diarrhea. Patient presented with with acute kidney injury, with a creatinine of 1.45. Patient also noted to have white blood cells of 17.3. Is felt that her symptoms are related with a viral gastroenteritis that caused her to be dehydrated. Patient received IV fluids and patient states that overall she is feeling better. Patient's diet is being advanced to regular and if she tolerates that, then she can be discharged home. [] Patient Problems: Active and Suspected Problems (Last Reviewed 04/12/18 @ 13:41 by Roselia Vidal DO) SHELTON (acute kidney injury) (Acute) Dehydration (Acute) Dizziness (Acute) Leukocytosis (Acute) Abdominal pain (Acute) Viral illness (Acute) Acute renal failure (Acute) Hyperglycemia (Acute) - Physical Exam General: Alert, Cooperative, No apparent distress HEENT: Atraumatic, Normocephalic Oral: Moist Mucosa, No Gingival or Mucosal Lesions/ Ulcerations Neck: No Nodes, Thyroid Normal Size and Texture Lungs: Clear to auscultation, Normal air movement, No rhonchi, No wheeze Cardiovascular: Regular rate, Regular Rhythm, Normal S1, Normal S2, No murmurs Abdomen: Bowel Sounds Present, Soft, Non Tender, Non-Distended, No Hepato-splenomegaly Extremities: No edema, No Calf Tenderness Skin: No rashes, No breakdown Musculoskeletal: No Tenderness to Palpation of Joints or Extremities, No Muscle Wasting Psych/Mental Status: Normal Affect, Appropriate Vital Signs Temp Pulse Resp BP Pulse Ox 36.4 C L 62 16 117/58 L 95 04/13/18 02:20 12/22/18 02:20 04/13/18 02:20 04/13/18 02:20 04/13/18 02:20 Oxygen Delivery Method Room Air Weight: 83.234 kg Body Mass Index (BMI) 35.8 Finger Stick Blood Glucose 126 Intake and Output for Last 24 Hours Intake Total 676 / 676 3310 / 3310 Output Total 175 / 175 600 / 600 Balance 501 / 501 2710 / 2710 Laboratory Tests Past 24 Hrs WBC RBC Hgb Hct WBC 6.9 RBC 4.49 Hgb 12.6 Hct 39.3 MCV 87.5 MCH 28.1 MCHC 32.1 RDW 14.5 RDW Differential 45.7 H Plt Count 214 Discharge Diet: No Restrictions Discharge Activity: Return to Normal Activity Call your doctor if you observe: Fever of 101 or Higher, Dizziness, Fainting spells Home Medications: Medications to take at Discharge Gabapentin [Neurontin] 300 mg PO QHS 02/07/16 Lisinopril [Zestril] 10 mg PO DAILY 02/07/16 Spironolactone [Aldactone] 25 mg PO DAILY 02/07/16 Tolterodine Tartrate [Detrol] 2 mg PO DAILY 02/07/16 Esomeprazole Mag Trihydrate [Nexium] 40 mg PO BID 03/09/16 aspirin 81 mg tablet,delayed release 81 mg PO QDAY 11/14/17 Primary Care Physician: Alexi Galindo Chi, MD [Primary Care Provider] - Within 2 Weeks Disposition: Home Minutes spent on discharge:: 26 Patient Condition:: Good Medical Necessity - Tobacco Use Smoking Status: Never smoker Tobacco Use: Non-smoker Meaningful Use Info Meaningful Use Diagnoses (Choose all that apply): None applicable Code Visit OBSV E AND M: 97390 Observation care discharge 04/13/18 1105 <Electronically signed by Campos Reynolds DO> Date Campos Hollidayigner Signature (if applicable): Date CC: Campos Reynolds DO; Alexi Galindo MD Signed DISCHARGE INSTRUCTION Observed: 04/13/2018 Status: F Source: [place] 11:02 AM [facility] REPOSITORY [facility] Medical Records Department [address] [place] [address] Instructions for Home/Discharge Instructions 04/13/18 1100 MR#: [id number] Acct: [id number] Name: GLORY HENRIQUEZ Rep #: [id number] : 1945 72 From: Campos Reynolds DO PCP: Alexi Galindo MD, Chi Status: ADM IN - Discharge Diagnoses Current Active Problems: Current Active and Chronic Problems (Last Reviewed 04/12/18 @ 13:41 by Roselia Vidal DO) Dehydration (Acute) Dizziness (Acute) Leukocytosis (Acute) Abdominal pain (Acute) Viral illness (Acute) Acute renal failure (Acute) Hyperglycemia (Acute) You will use the following diet at home:: No restrictions Your food should be the consistency of: Regular Discharge Activity: Return to Normal Activity Call your doctor if you observe: Fever of 101 or Higher, Dizziness, Fainting spells Allergies/Adverse Reactions: Allergies latex Allergy (Verified 04/12/18 04:22) Swelling morphine Allergy (Verified 04/12/18 09:38) Other hallucinations Penicillins Allergy (Verified 04/12/18 04:22) Hives hydrocodone bitartrate [From Vicodin] Adverse Reaction (Verified 04/12/18 04:22) Abd cramps/diarrhea Medications to take at Discharge Gabapentin [Neurontin] 300 mg PO QHS 02/07/16 Lisinopril [Zestril] 10 mg PO DAILY 02/07/16 Spironolactone [Aldactone] 25 mg PO DAILY 02/07/16 Tolterodine Tartrate [Detrol] 2 mg PO DAILY 02/07/16 Esomeprazole Mag Trihydrate [Nexium] 40 mg PO BID 03/09/16 aspirin 81 mg tablet,delayed release 81 mg PO QDAY 11/14/17 Primary Care Physician: Alexi Galindo Chi, MD [Primary Care Provider] - Within 2 Weeks Test Results: Test results from this visit will be discussed in further detail at your follow-up appointment, if applicable. Proposed Discharge Date: 04/13/18 04/13/18 1102 <Electronically signed by Campos Reynolds DO> Date Campos Reynolds DO CC: Alexi Galindo MD Signed CBC W/DIFF, AUTOMATED Collected: 04/13/2018 Status: F Source: [place] 6:30 AM [facility] REPOSITORY TYPE CODE TESTS RESULT OUT OF RANGE REFERENCE UNITS LAB L100.1000 4.4-11.0 K/mm3 Normal WBC 6.9 LAB L100.1200 4.2-5.4 M/mm3 Normal RBC 4.49 LAB L100.1300 12.0-15.0 g/dl Normal HGB 12.6 LAB L100.1400 37-47 % Normal HCT 39.3 LAB L100.1500 81-99 fL Normal MCV 87.5 LAB L100.1600 27.0-32.0 pg Normal MCH 28.1 LAB L100.1700 32-36 g/gl Normal MCHC 32.1 LAB L100.1810 11.6-14.6 % Normal RDW CV 14.5 LAB L100.1820 35.1-43.9 fl High RDW SD 45.7 LAB L100.1900 150-450 K/mm3 Normal PLT 214 LAB L100.2000 6.2-12.0 fl Normal MPV 10.3 LAB L100.2100 47-70 % Normal NEUT% 67.1 LAB L100.2200 19-41 % Normal LY% 23.1 LAB L100.2300 0-10 % Normal MONO% 7.6 LAB L100.2400 0-5 % Normal EO% 1.7 LAB L100.2500 0-1 % Normal BASO% 0.4 LAB L100.2550 0.0-0.9 % Normal IM GRAN % 0.100 Result Comment: IG% - Immature Granulocytes (promyelocytes, myelocytes and metamyelocytes) > 1% indicates that a LEFT SHIFT is Present. LAB L100.2620 2.0-7.7 X10 3/uL Normal Absolute Neut 4.6 LAB L100.2720 0.83-4.51 X10 3/ul Normal Absolute Lymph 1.59 Performed By: #### L100.0100 #### [facility] [address] [facility] [place], [address] BASIC METABOLIC Collected: 04/13/2018 Status: F Source: [place] PROFILE (BMP) 6:30 AM [facility] REPOSITORY TYPE CODE TESTS RESULT OUT OF RANGE REFERENCE UNITS LAB L501.0100 74-106 mg/dL Normal GLU 78 Result Comment: Please note revised GLUCOSE reference range effective 2017. LAB L501.1000 7-18 mg/dL Normal BUN 14 LAB L501.1100 0.55-1.02 mg/dL Normal CREAT,SERUM 0.82 Result Comment: The validity of the calculated GFR AND GFRAA in patients over 70 years has not been determined. Clinical correlation is essential. LAB L501.1110 >60 mL/min Normal EST GFR 73 Result Comment: Non- GFR Calc LAB L501.1115 >60 mL/min Normal EST GFR - AA 88 Result Comment: GFR Calc LAB L501.1255 ml/min Normal Estimated CRCL 45.85 LAB L501.1300 10-20 RATIO Normal BUN/CRE 17.1 LAB L501.2200 8.5-10 mg/dL Low .1 CA 8.2 LAB L501.5300 136-14 mmol/L High 5 NA 146 LAB L501.5600 3.5-5. mmol/L Normal 1 K 3.9 LAB L501.5900 98-107 mmol/L High CL 114 LAB L501.6100 21.0-3 mmol/L Normal 2.0 CO2 26.0 LAB L501.6200 5-15 Normal GAP 6 Performed By: #### L500.2500 #### [facility] [address] [place], [address] HISTORY AND PHYSICAL Observed: 04/12/2018 Status: F Source: RICARDA EXAM 1:52 PM [facility] REPOSITORY [facility] Medical Records Department [address] [address] History and Physical 04/12/18 0744 MR#: [id number] Acct: [id number] Name: GLORY HENRIQUEZ Rep #: [id number] : 1945 72 From: Roselia Vidal DO PCP: Mikel BENNETT,Alexi Cárdenas Status: ADM IN Y Location: MS3 MN400-1 Problem List (1) Acute renal failure Status: Acute (2) Dehydration Status: Acute (3) Obesity Status: Chronic (4) Generalized osteoarthritis Status: Chronic (5) GERD (gastroesophageal reflux disease) Status: Chronic (6) Hyperglycemia Status: Acute History of Present Illness Date of Admission: 04/12/18 Chief Complaint: dizziness, N/V/D The patient is a 72 year old F with a past medical history of obesity, GERD, fibromyalgia and osteoarthritis who presented to the emergency department at [facility] on 04/12/2018 complaining of diarrhea, abdominal pain and lightheadedness. She had cataract surgery on 04/11/2018. On one trip to the bathroom she fell and she felt the room spinning. The dizziness got worse with sitting and standing. Vital signs of presentation to the emergency room were temp 98, pulse rate 75, blood pressure 103/74, respiratory rate 16 and she was 96% saturated on room air. Labs showed an elevated white blood cell count at 17.3 with 84% neutrophils. Hemoglobin was 16.9 due to hemoconcentration. Platelets were within normal limits. Electrolytes were unremarkable. The BUN was 20 and the creatinine was 1.45, up from 0.62 11 months ago and 0.83 in October 2017. Blood glucose is elevated at 190 and she has no history of diabetes mellitus. UA showed 0-5 white blood cells. There were 5-10 hyaline casts[address] A noncontrasted CT of the abdomen and pelvis was unremarkable. She is being admitted to the hospital with a dx of gastroenteritis with ARF. Her last BM was at 4 AM and it is currently 13:30. Last emesis was in the ED and she denies nausea currently. She is c/o heart burn and has a hx of a hiatal hernia Past Medical History Past Medical History (Chronic Problems): Chronic Problems (Last Reviewed 04/12/18 @ 13:41 by Roselia Vidal DO) Fibromyalgia (Chronic) Obesity (Chronic) Generalized osteoarthritis (Chronic) GERD (gastroesophageal reflux disease) (Chronic) Medical History: Medical History (Last Reviewed 04/12/18 @ 13:41 by Roselia Vidal DO) Lightheadedness (Acute) R42 Generalized abdominal pain (Acute) R10.84 Diarrhea (Acute) R19.7 Fibromyalgia (Chronic) Obesity (Chronic) E66.9 Generalized osteoarthritis (Chronic) M15.9 GERD (gastroesophageal reflux disease) (Chronic) K21.9 History of hysterectomy Z90.710 Left breast lump N63.20 Allergies latex Allergy (Verified 04/12/18 04:22) Swelling morphine Allergy (Verified 04/12/18 04:22) Other Penicillins Allergy (Verified 04/12/18 04:22) Hives hydrocodone bitartrate [From Vicodin] Adverse Reaction (Verified 04/12/18 04:22) Abd cramps/diarrhea Home Medications: Ambulatory Orders Medication Instructions Recorded Gabapentin [Neurontin] 300 mg PO QHS 02/07/16 Lisinopril [Zestril] 10 mg PO DAILY 02/07/16 Spironolactone [Aldactone] 25 mg PO DAILY 02/07/16 Surgical History: Surgical History (Last Reviewed 04/12/18 @ 13:41 by Roselia Vidal DO) History of bilateral knee replacement Z96.653 History of laparoscopic cholecystectomy Z90.49 History of left breast biopsy Onset Date: 11/2017 Z98.890 History of repair of right rotator cuff Z98.890 History of tonsillectomy and adenoidectomy Z98.890 history bilateral breast biopsies Surgical History: appendectomy, cholecystectomy, hysterectomy, total knee arthroplasty - 2, tonsillectomy, - - Breast biopsies for benign cysts, cardiac catheterization Psychiatric History: No pertinent psych hx [employer] History: No pertinent [employer] history Lives: Spouse/ Significant Other Smoking Status: Never smoker Tobacco Use: Non-smoker Alcohol: Rare Drugs: None - *Family History Maternal Family History: Family History (Last Reviewed 04/12/18 @ 13:41 by Roselia Vidal DO) Father Diabetes Heart disease Mother Breast cancer Grandmother Cancer History Items: Cancer - Breast cancer Paternal Family History: Family History (Last Reviewed 04/12/18 @ 13:41 by Roselia Vidal DO) Father Diabetes Heart disease Mother Breast cancer Grandmother Cancer History Items: Diabetes, - - Parkinson's disease Review of Systems Constitutional: Denies: Chills, Fever, Weight Change HEENT: Denies: Difficulty Swallowing, Head Aches, Sinus Congestion, Sinus Drainage Cardiovascular: Reports: Light Headedness. Denies: Chest Pain, Palpitations Respiratory: Denies: Cough, Shortness of breath at rest, Sputum production Gastrointestinal: Reports: Abdominal Pain - crampy, Diarrhea, Nausea, Vomiting Genitourinary: Denies: Dysuria Musculoskeletal: Denies: Joint Pain, Joint Tenderness Skin: Denies: Rash, Wounds Neurological: Denies: Numbness, Tingling, Focal weakness Psychiatric: Denies: Anxiety, Depression, Homicidal Ideations, Suicidal Ideations Hematologic/ Lymphatic: Denies: Easy Bruising, Easy Bleeding VTE Information - Inpt Only VTE Present on Admission: No VTE Mechan Device Prophylaxis: SCD's, Knee High DELIA Hose VTE Pharm Prophylaxis ordered?: Yes Patient Problems: Active and Suspected Problems (Last Reviewed 04/12/18 @ 13:41 by Roselia Vidal DO) Dehydration (Acute) Dizziness (Acute) Leukocytosis (Acute) Abdominal pain (Acute) Viral illness (Acute) Acute renal failure (Acute) Hyperglycemia (Acute) - Physical Exam General: Alert, Oriented x3, Cooperative, No apparent distress HEENT: Atraumatic, PERRLA, EOMI, Normocephalic Oral: No Gingival or Mucosal Lesions/ Ulcerations, Dry Mucosa Neck: Supple, No JVD, No Nodes, No Nuchal Rigidity, Trachea Midline Lungs: Clear to auscultation, Normal air movement Cardiovascular: Regular rate, Normal S1, Normal S2, No murmurs, No rub noted, No Gallop Abdomen: Soft, Hypoactive Bowel Sounds, Distended - and tympanic, Tender - diffusely tender to palpation but, no guarding with palpation. There is increased tympany Extremities: No clubbing, No cyanosis, Capillary Refill Less than 3 Seconds, Edema - of the ankles BL- mild Skin: No rashes, No breakdown Musculoskeletal: No Tenderness to Palpation of Joints or Extremities Neurological: Cranial nerves II-XII grossly intact, Neuro grossly intact Psych/Mental Status: Normal Affect, Appropriate Vital Signs Temp Pulse Resp BP Pulse Ox 98.0 F 73 14 96/67 93 04/12/18 04:15 04/12/18 06:38 04/12/18 06:38 04/12/18 06:38 04/12/18 06:38 Oxygen Delivery Method Room Air Weight: 19 lb 15.582 oz Body Mass Index (BMI) 3.9 Finger Stick Blood Glucose 126 Laboratory Tests Past 24 Hrs POC Glucose POC Glucose 126 H Assessment/Plan All Active Problems (Last Reviewed 04/12/18 @ 13:41 by Roselia Vidal DO) Dehydration (Acute) Dizziness (Acute) Leukocytosis (Acute) Abdominal pain (Acute) Viral illness (Acute) Acute renal failure (Acute) Hyperglycemia (Acute) Lightheadedness (Acute) Generalized abdominal pain (Acute) Diarrhea (Acute) Impressions 1. gastroenteritis 2. ARF -suspect due to prerenal azotemia 3. dehydration 4. Recent cataract extraction right eye on 04/11/2018 5. Hiatal hernia with GERD 6. Leukocytosis with no fever-possibly secondary to stress reaction 7. Lactic acidosis-I suspect this is secondary to dehydration and acute renal failure. Following hydration it immediately dropped to 1.1. 8. Fibromyalgia 9. Hyperglycemia with no history of diabetes mellitus 10. Obesity hydrate Enteric pathogen panel anti-emetics ordered urine sodium and Creat to calculate a FENA Recheck the lab in the AM clear liquid diet Protonix for heartburn and PRN Mylanta Lovenox, TEDS and SCD's for DVT prophylaxis Code Visit Inpatient E AND M: [id number] Init Hosp L2 04/12/18 1352 <Electronically signed by Roselia Vidal DO> Date Roselia Vidal DO Cosigner Signature: Date (if applicable) CC: Danya Vidal; Alexi Galindo MD Signed URINE SODIUM Collected: 04/12/2018 Status: F Source: [place] 1:43 PM [facility] REPOSITORY TYPE CODE TESTS RESULT OUT OF RANGE REFERENCE UNITS LAB L501.5500 Not Establ. mmol/L Normal UR NA 101 Performed By: #### L501.5500 #### [facility] [address] [place], [place], [address] CREATININE, URINE Collected: 04/12/2018 Status: F Source: [place] 1:43 PM [facility] REPOSITORY TYPE CODE TESTS RESULT OUT OF RANGE REFERENCE UNITS LAB L502.0300 NO RANGE EST. mg/dL Normal URINE 240.00 CREAT Performed By: #### L502.0300 #### [facility] [address] [place], [place], [address] LACTIC ACID Collected: 04/12/2018 Status: F Source: [place] 1:04 PM [facility] REPOSITORY TYPE CODE TESTS RESULT OUT OF RANGE REFERENCE UNITS LAB L503.6005 0.4-2.0 mmol/L Normal LACTIC ACID 1.1 Performed By: #### L503.6005 #### [facility] [address] [place], [address] LACTIC ACID Collected: 04/12/2018 Status: F Source: [place] 7:53 AM [facility] REPOSITORY Order Comment: Yes/No query for Sepsis Lactate Rule Y TYPE CODE TESTS RESULT OUT OF REFERENCE UNITS RANGE LAB L503.6005 0.4-2.0 mmol/L High LACTIC ACID 2.5 Result Comment: Critical Result(s) Called at: 08:31:36 04/12/2018 by: Tori Jones Performed By: #### L503.6005 #### [facility] [address] [facility] [place], [place], [address] URINALYSIS, COMPLETE Collected: 04/12/2018 Status: F Source: RIC[place]DA 7:32 AM [facility] REPOSITORY Order Comment: Order Date: 04/12/18 How was Urine Obtained? CATHETER SPECIMEN TYPE CODE TESTS RESULT OUT OF RANGE REFERENCE UNITS LAB L400.3000 Yellow COLOR Normal Yellow LAB L400.3050 Clear Normal CLARITY Sl. Cloudy LAB L400.3200 Normal mg/dl Normal GLUCOSE, UR Normal LAB L400.3300 Negative mg/dL High BILIRUBIN URINE 1 Result Comment: COLOR OF URINE MAY AFFECT DIPSTICK RESULTS. LAB L400.3400 Negative mg/dl High KETONE UR 5 LAB L400.3465 1.002-1.030 Normal SP.GR. DIPSTX 1.025 LAB L400.3550 5.0 - 8.0 pH Normal UR 5.0 LAB L400.3600 Negative mg/dl High PROT DIPSTX 30 LAB L400.3700 Normal mg/dl High UROBILI 1 LAB L400.3750 Negative Normal NITRITE UR Negative LAB L400.3780 Negative /ul High OCCULT 10 BLOOD-UR LAB L400.3800 Negative /ul High LEUK ESTERASE 25 LAB L400.4050 0-5 /hpf Normal WBC 0-5 SEEN LAB L400.4100 0-5 /hpf Normal RBC-UA 0-5 SEEN LAB L400.4150 5-10 /hpf Normal SQUAM EPI 0-5 SEEN LAB L400.4300 None Seen /hpf Normal BACTERIA 1+ LAB L400.4350 <or=2+ /hpf Normal MUCUS, URINE 0 SEEN LAB L400.4400 0-5 /lpf Normal HYALINE CAST 5-10 SEEN Performed By: #### L400.0001 #### [facility] [address] [place], [address] Observed: 04/12/2018 Status: F Source: [place] CULTURE, URINE 7:32 AM [facility] REPOSITORY Urine Culture Culture exhibits no growth. Performed By: #### M100.0650 #### [facility] [address] [place], [place], [address] EMERGENCY DEPARTMENT Observed: 04/12/2018 Status: F Source: [place] SUMMARY 7:25 AM [facility] REPOSITORY [facility] Medical Records Department [address] [place] [address] Emergency Department Summary 04/12/18 0723 MR#: [id number] Acct: [id number] Name: GLORY HENRIQUEZ Rep #: [id number] : 1945 72 From: Campos Tomlin DO PCP: Mikel BENNETT,Alexi Chi Status: REG ER - ER Visit Summary Date of Service: 04/12/18 Chief Complaint: [] History of Present Illness: The patient is a 72 F [] Physical Examination: [] Test Results: [] Emergency Department Course and Treatment: [] Treatment Plan: [] Disposition: [] Impression: [] This note was generated with [employer] software. It may contain incorrect words, spelling, and punctuation that were not noted in review of the chart prior to signing ED Disposition - Plan for ED Patient: Disposition: Acute Care Hospital [facility] Chief Complaint: General Illness Diagnosis: Dehydration, Dizziness, Leukocytosis, Abdominal pain, Viral illness Referrals: Alexi Galindo Chi, MD [Primary Care Provider] - What to do if you have Problems For any increased pain, shortness of breath, bleeding, nausea or vomiting, chest pain, or any unexpected problems, contact your Primary Care Provider. Call [facility] ([phone]) or report to the closest Emergency Room. Call 911 if necessary. 04/12/18724 <Electronically signed by Campos Tomlin DO> Date Campos Tomlin DO Cosigner Signature (If Indicated): Date CC: Alexi Galindo MD EMERGENCY DEPARTMENT Observed: 04/12/2018 Status: F Source: [place] SUMMARY 7:23 AM [facility] Medical Records Department [address] [place] [address] Emergency Department Summary 04/12/18 0540 MR#: [id number] Acct: [id number] Name: GLORY HENRIQUEZ Rep #: [id number] : 1945 72 From: Campos Tomlin DO PCP: Alexi Galindo MD, Chi Status: REG ER ADDENDUM by Campos Tomlin DO on 04/12/18 at 0723 Case was discussed with Dr. Vidal. She will admit the patient to her service for observation. 04/12/18722 Date Campos Tomlin DO cc: Alexi Galindo MD * Signed - ER Visit Summary Date of Service: 04/12/18 Chief Complaint: Diarrhea and dizziness History of Present Illness: The patient is a 72 F who presents with diarrhea and dizziness that began today. Patient states she had cataract surgery earlier this morning. Patient states she was in bed sleeping. Patient states she got up to use the restroom because she felt like she was going out diarrhea. Patient states she was dizzy but was able to walk to the bathroom and back. Patient states that she had a second episode where she felt like she was going to have diarrhea and tried to go to the bathroom but fell. Patient was still dizzy at that time. Patient states her dizziness feels like a spinning and motion sensation. Patient states it is worse when she sits and stands up but does not resolve with laying flat. Patient also admits to some diffuse abdominal pain. Physical Examination: Vital signs are stable. Patient is afebrile. Patient is in no acute distress. Oral mucosa is pink and moist. The left pupil is reactive. The right is covered with a bandage. Neck is supple. Trachea is midline. There is no JVD noted. Heart was regular rate and rhythm. Lungs are clear and equal bilaterally. Abdomen is soft. Bowel sounds are normal. There is diffuse tenderness. There is no rebound or guarding noted. There is tenderness and ecchymosis over the left knee. Range of motion is limited and complete flexion secondary to pain. There is no pain with short arc range of motion. There is also some mild tenderness over the right elbow. There is no deformity. There is no edema or ecchymosis. There is good range of motion. Cranial nerves II through XII are intact. There are no focal motor or sensory deficits noted. Test Results: CBC showed a leukocytosis of 17.3. Hemoglobin was 16.9 and hematocrit was 51.1. BUN was 20 and creatinine was 1.45. X-rays of the left knee were obtained. There is no acute fracture. CT scan of the brain was obtained and does not show any acute intracranial abnormality. CT scan of the abdomen and pelvis was ordered and is pending. Emergency Department Course and Treatment: Patient was given Zofran and IV fluids initially. Patient was given a dose of meclizine here. Patient was unable to stand for orthostatics due to weakness in her legs. There was no change in blood pressure or pulse from lying to sitting. Patient then started complaining more of abdominal cramping. CT scan of the abdomen and pelvis was ordered at that time. Disposition: Care of the patient was turned over to the oncoming physician. Impression: 1. Dizziness 2. Leukocytosis 3. Abdominal pain This note was generated with Evernote dictation software. It may contain incorrect words, spelling, and punctuation that were not noted in review of the chart prior to signing ED Disposition - Plan for ED Patient: Chief Complaint: General Illness Referrals: Alexi Galindo Chi, MD [Primary Care Provider] - What to do if you have Problems For any increased pain, shortness of breath, bleeding, nausea or vomiting, chest pain, or any unexpected problems, contact your Primary Care Provider. Call [facility] ([phone]) or report to the closest Emergency Room. Call 911 if necessary. 04/12/18 0706 <Electronically signed by Campos Tomlin DO> Date Campos Tomlin DO Cosigner Signature (If Indicated): Date CC: Alexi Galindo MD ABDOMEN/PELVIS WITHOUT Observed: 04/12/2018 Status: F Source: [place] CONT 6:25 AM [facility] REPOSITORY [facility] Imaging Services [address] [place] [address] Abdomen/Pelvis without Cont MR#: [id number] Acct: [id number] Name: GLORY HENRIQUEZ Faye Rep #: [id number] : 1945 F 72 From: Bal Salazar MD PCP: Alexi Galindo MD, Chi Status: REG ER Study: Abdomen/Pelvis without Cont Date of Exam: 04/12/18 Exam# [id number] Ordering Dr: Campos Tomlin DO STUDY: CT ABDOMEN AND PELVIS WITHOUT CONTRAST REASON FOR EXAM: Female, 72 years old. Abdominal pain and diarrhea RADIATION DOSAGE (If Supplied By Facility): CTDIvol = ( 10.37 ) mGy, DLP = ( 515.47 ) mGycm TECHNIQUE: Transaxial images were obtained from the dome of the diaphragm to the symphysis pubis without oral contrast, and without intravenous contrast. Sagittal and coronal images were reconstructed. Individualized dose optimization techniques were used for this CT. COMPARISON: None. FINDINGS: The lung bases are clear. The liver is normal. No dilated intrahepatic biliary radicles. Previous cholecystectomy. The spleen is normal. The pancreas is normal. Both adrenals are normal. The kidneys are normal with no masses, calculi or hydronephrosis The stomach is normal. There is no bowel distention, acute appendicitis or diverticulitis. No constricting lesions are seen in large bowel. The abdominal wall is intact with no hernias. There is mild ascites around the liver and spleen and also in the pelvis The vascular structures in the retroperitoneum are normal. There is no retrocrural, retroperitoneal or mesenteric adenopathy. Facet arthrosis in the lower lumbosacral spine. The urinary bladder is normal.--Previous hysterectomy.. There is no inguinal or pelvic adenopathy. There is no inguinal hernia. . CT/Abdomen/Pelvis without Cont IMPRESSION: Mild ascites. No acute appendicitis or diverticulitis. Electronically Signed: Bal Salazar MD at 7:35 EST Tel , Service support , CC: Campos Tomlin DO; Alexi Galindo MD Manager Field: Signed BEDSIDE GLUCOSE Collected: 04/12/2018 Status: F Source: [place] 6:09 AM [facility] REPOSITORY TYPE CODE TESTS RESULT OUT OF REFERENCE UNITS RANGE LAB L501.080 70-110 mg/dL High BEDSIDE GLU 126 Result Comment: MANAGEMENT OF PATIENT CARE PER NURSING PROTOCOL Performed By: #### L501.080 #### [facility] Point of Care [address] [place] [address] BRAIN/HEAD WITHOUT Observed: 04/12/2018 Status: F Source: [place] CONTRAST 5:38 AM [facility] REPOSITORY [facility] Imaging Services [address] [place] [address] Brain/Head without Contrast MR#: [id number] Acct: [id number] Name: GLORY HENRIQUEZ Rep #: [id number] : 1945 F 72 From: Bal Salazar MD PCP: Alexi Galindo MD, Chi Status: REG ER Study: Brain/Head without Contrast Date of Exam: 04/12/18 Exam# [id number] Ordering Dr: Campos Tomlin DO STUDY: CT BRAIN WITHOUT CONTRAST REASON FOR EXAM: Female, 72 years old. Dizziness RADIATION DOSAGE (If Supplied By Facility): CTDIvol = ( 44.99 ) mGy, DLP = ( 812.98 ) mGycm TECHNIQUE: Transaxial CT imaging of the brain was performed without administration of intravenous contrast material. Individualized dose optimization techniques were used for this CT. COMPARISON: None. FINDINGS: Normal soft tissue structures. Normal calvarium. Normal size ventricles and extra-axial spaces for the patient's age. Normal white matter tracts of the cerebral hemispheres. Normal basal ganglia and thalami. Normal brainstem. Normal cerebellum. There is no intracranial hemorrhage. There are no findings of an acute ischemic infarction. Normal visualized paranasal sinuses. CT/Brain/Head without Contrast IMPRESSION: Normal unenhanced CT scan of the brain. No acute findings in the brain Electronically Signed: Bal Salazar MD at 6:07 EST Tel , Service support , CC: Campos Tomlin DO; Alexi Galindo MD Manager Field: Signed KNEE 4 OR MORE Observed: 04/12/2018 Status: F Source: [place] VIEWS 5:38 AM [facility] HOSPITAL REPOSITORY [facility] Imaging Services [address] [place] [address] Knee 4 or More Views MR#: [id number] Acct: [id number] Name: GLORY HENRIQUEZ Rep #: [id number] : 1945 F 72 From: Bal Salazar MD PCP: Mikel BENNETT,Alexi Cárdenas Status: REG ER Study: Knee 4 or More Views Date of Exam: 04/12/18 Exam# [id number] Ordering Dr: Campos Tomlin DO STUDY: X-RAY - LEFT KNEE REASON FOR EXAM: Female, 72 years old. Painful left knee TECHNIQUE: 4 view(s) of the knee. COMPARISON: None. FINDINGS: There is a total left knee replacement. The metallic hardware in good position. No knee joint effusion. The quadriceps and patellar tendons are normal. RAD/Knee 4 or More Views IMPRESSION: A total left knee replacement. Electronically Signed: Bal Salazar MD at 6:09 EST Tel , Service support , CC: Campos Tomlin DO; Alexi Galindo MD Manager Field: Signed CBC W/DIFF, AUTOMATED Collected: 04/12/2018 Status: F Source: [place] 4:30 AM [facility] REPOSITORY TYPE CODE TESTS RESULT OUT OF RANGE REFERENCE UNITS LAB L100.1000 4.4-11.0 K/mm3 High WBC 17.3 LAB L100.1200 4.2-5.4 M/mm3 High RBC 6.04 LAB L100.1300 12.0-15.0 g/dl High HGB 16.9 LAB L100.1400 37-47 % High HCT 51.1 LAB L100.1500 81-99 fL Normal MCV 84.6 LAB L100.1600 27.0-32.0 pg Normal MCH 28.0 LAB L100.1700 32-36 g/gl Normal MCHC 33.1 LAB L100.1810 11.6-14.6 % Normal RDW CV 14.5 LAB L100.1820 35.1-43.9 fl High RDW SD 44.6 LAB L100.1900 150-450 K/mm3 Normal PLT 373 LAB L100.2000 6.2-12.0 fl Normal MPV 10.6 LAB L100.2100 47-70 % High NEUT% 84.0 LAB L100.2200 19-41 % Low LY% 9.1 LAB L100.2300 0-10 % Normal MONO% 6.2 LAB L100.2400 0-5 % Normal EO% 0.2 LAB L100.2500 0-1 % Normal BASO% 0.2 LAB L100.2550 0.0-0.9 % Normal IM GRAN % 0.300 Result Comment: IG% - Immature Granulocytes (promyelocytes, myelocytes and metamyelocytes) > 1% indicates that a LEFT SHIFT is Present. LAB L100.2620 2.0-7.7 X10 3/uL High Absolute Neut 14.6 LAB L100.2720 0.83-4.51 X10 3/ul Normal Absolute Lymph 1.57 Performed By: #### L100.0100 #### [facility] [address] [place], [place], [address] COMPREHENSIVE METABOLIC Collected: 04/12/2018 Status: F Source: [facility] 4:30 AM [facility] REPOSITORY TYPE CODE TESTS RESULT OUT OF RANGE REFERENCE UNITS LAB L501.0100 74-106 mg/dL High GLU 190 Result Comment: Fasting Glucose result greater than or equal to 126 mg/dL suggests DIABETES MELLITUS per A.D.A. criteria. Please note revised GLUCOSE reference range effective 2017. LAB L501.1000 7-18 mg/dL High BUN 20 LAB L501.1100 0.55-1.02 mg/dL High CREAT,SERUM 1.45 Result Comment: The validity of the calculated GFR AND GFRAA in patients over 70 years has not been determined. Clinical correlation is essential. LAB L501.1110 >60 mL/min Low EST GFR 38 Result Comment: Non- GFR Calc LAB L501.1115 >60 mL/min Low EST GFR - AA 46 Result Comment: GFR Calc LAB L501.1255 ml/min Normal Estimated CRCL 5.16 LAB L501.1300 10-20 RATIO Normal BUN/CRE 13.8 LAB L501.1500 6.4-8.2 g/dL Normal T PROT 7.1 LAB L501.1800 3.2-5.0 g/dL Low ALB 3.1 LAB L501.1950 2.2-4.2 g/dL Normal GLOB 4.0 LAB L501.2000 0.9-2.4 RATIO Low A/G 0.8 LAB L501.2200 8.5-10. mg/dL Normal 1 CA 9.3 LAB L501.4100 15-37 U/L Normal AST 16 LAB L501.4305 45-117 U/L Normal ALK P 97 LAB L501.4405 13-56 U/L Normal ALT 17 LAB L501.4600 0.20-1. mg/dL Normal 00 T BILI 0.60 LAB L501.5300 136-145 mmol/L Normal NA 143 LAB L501.5600 3.5-5.1 mmol/L Normal K 4.3 LAB L501.5900 98-107 mmol/L High CL 108 LAB L501.6100 21.0-32 mmol/L Normal .0 CO2 25.0 LAB L501.6200 5-15 Normal GAP 10 Performed By: #### L500.4050, L501.2450 #### [facility] [address], [place], [address] LIPASE Collected: 04/12/2018 Status: F Source: [place] 4:30 AM [facility] REPOSITORY TYPE CODE TESTS RESULT OUT OF RANGE REFERENCE UNITS LAB L501.2450 73-393 U/L Normal LIPASE 189 Performed By: #### L500.4050, L501.2450 #### [facility] [address] [place], [address] PHOSPHORUS Collected: 04/12/2018 Status: F Source: [place] 4:30 AM [facility] REPOSITORY TYPE CODE TESTS RESULT OUT OF RANGE REFERENCE UNITS LAB L501.2300 2.5-4.9 mg/dL Normal PHOS 3.1 Performed By: #### L501.2300, L501.5200 #### [facility] [address] [place], [address] MAGNESIUM Collected: 04/12/2018 Status: F Source: [place] 4:30 AM [facility] REPOSITORY TYPE CODE TESTS RESULT OUT OF RANGE REFERENCE UNITS LAB L501.5200 1.6-2.6 mg/dL Normal MG 2.3 Performed By: #### L501.2300, L501.5200 #### [facility] [address] [place], [address] HEMOGLOBIN A1C Collected: 04/12/2018 Status: F Source: [place] 4:30 AM [facility] REPOSITORY TYPE CODE TESTS RESULT OUT OF RANGE REFERENCE UNITS LAB L501.9985 4.2-6.3 % Normal HGB A1C 6.3 Performed By: #### L501.9985 #### [facility] [address] [place], [address] Observed: 03/25/2018 Status: F Source: [place] RESPIRATORY PANEL 11:03 AM [facility] MOLECULAR REPOSITORY RP PANEL ADENOVIRUS Not Detected [...] acid amplification Performed By: #### M100.638 #### [facility] [address] [place], [address] PROGRESS Observed: 03/05/2018 Status: COMPLETED Source: [place] 3:20 PM [facility] REPOSITORY HNO ID: [id number] Author: Zaira Aparicio Service: (none) Author Type: [...] knees, hands - DVT (deep venous thrombosis) (HCC) 2003 - Esophageal reflux - Esophageal stenosis [...] 72 - Diabetes Father Parkinsons, HTN, CAD, ME - Hypertension Father - Stroke Father - [...] PM CNOV Observed: 03/05/2018 Status: COMPLETED Source: [place] 2:45 PM [facility] REPOSITORY Office Visit (GSTNOR) GLORY HENRIQUEZ ([id number]) 1945 F Date Time Provider Department 03/05/18 2:45 PM ZAIRA APARICIO During your visit today, we recorded the [...] knees, hands - DVT (deep venous thrombosis) ([facility]) 2003 - Esophageal reflux - Esophageal stenosis [...] 72 - Diabetes Father Parkinsons, HTN, CAD, ME - Hypertension Father - Stroke Father - [...] TIME: 3:20 PM Referring Provider: ZAIRA APARICIO [[id number]] Allergies As of Date: 03/05/2018 Noted Allergy [...] Upset Date Reviewed: 03/05/2018 Reviewed by: Chantale Galeano CCMA - Fully Assessed Reason for Visit: Abnormal [...] VISIT REPORT Observed: 12/17/2017 Status: F Source: [place] 7:52 AM [facility] REPOSITORY [facility] [address] [place] [address] OFFICE VISIT Date of Service: 12/15/17 MR#: [id number] Acct: [id number] Name: GLORY HENRIQUEZ Rep #: [id number] : 1945 Provider: Jung Zee MD Age/Sex: 72/F Location: [facility] Status: Signed Intake Intake Visit Reasons: L BREAST BX Co Founder Required: No Is patient in pain?: No [...] mg PO QDAY 11/14/17 [History Confirmed 12/15/17] [facility] Medical History Lightheadedness (Acute) Generalized abdominal pain [...] the patient tolerated the procedure well. Alert Lead Simulation Modeling Engineer Yes Biopsy Breast Biopsy: 98691 US Guidance Procedure Time Out Time Out Informed consent given: Yes Consent signed: Yes Time out checklist: patient, procedure, site marked/identified, positioning of patient, supplies available, allergies confirmed, team agrees on procedure Time out staff in room: Yes Time out verified: Yes Time out date: 12/15/17 Time out time: 07:43 Assessment AND Plan Orders Orders: Coding Level of Care Code Tierra Garza Additional Codes Biopsy - Breast Biopsy: 76309 US Guidance (93951) 12/17/17 0752 <Electronically signed by Jung Zee MD> Date Jung Workman Signature: Date (if applicable) CC: BREAST BIOPSY Observed: 12/15/2017 Status: F Source: [place] (CHOOSE SITE) 8:00 AM [facility] REPOSITORY Patient: GLORY HENRIQUEZ : 1945 (72/F) Acct Num: [id number] Phys: Saadia BENNETT,Jung Unit Num: [id number] Loc: [facility] Specimen: [id number] Received: 12/15/17 - 1126 Spec Type: BREAST BX TISSUES TISSUES: Left breast, NOS GROSS DESCRIPTION Received in fixative is one container labeled with the patient's name and designated left breast biopsy. The specimen consists of multiple irregular fragments of lozano soft tissue that in aggregate measure 1.3 x 0.5 x 0.1 cm. The specimen is totally submitted in one cassette. / AM:irish 12/17/17 TC:5 CPT: 16588 HEADER OPERATION: Needle core biopsy of left breast PRE-OP DIAGNOSIS: Left breast mass, N63.20 TISSUE SUBMITTED: Left breast tissue ISCHEMIC TIME: <1 minute FIXATION TIME: 47 hours MICROSCOPIC DESCRIPTION Slides are reviewed. MICROSCOPIC DIAGNOSIS Left breast, core biopsy: Nonproliferative fibrocystic change. No evidence of malignancy. AM:irish 12/18/17 Signed [facility] 12/18/17 <signature on file> Performed By: #### PBRBX #### [facility] [address] [place] [address]. [place], [address] SURGICAL PATHOLOGY Observed: 11/29/2017 Status: F Source: [place] 11:25 AM [facility] REPOSITORY Specimen originated from [facility] Specimen #: [id number] Submitting Physician: ZAIRA APARICIO FINAL DIAGNOSIS Anorectal junction, biopsy (A) - Fragments of squamous and colonic mucosa with hyperplastic changes. - Separate fragment of mucopurulent debris. - Negative for dysplasia and malignancy. HARINI/ROBIN/peter 11/30/2017 Romero Ybarra M.D. (Electronic Signature) SPECIMEN SUBMITTED A: ANAL-RECTUM JUNCTION, BIOPSY CLINICAL DATA pain/wt loss GROSS DESCRIPTION A. Received in formalin are two pieces of lozano, soft tissue aggregating to 0.5 x 0.2 x 0.2 cm. Totally submitted in one cassette. Gross examination performed at [facility], [address] [place] [address] 11/30/2017 12:45:48 AM Date of Report: 11/30/2017 Date of Procedure: 11/29/2017 Date of Receipt: 11/29/2017 Submitted by: ZAIRA APARICIO Location: [facility] Diagnostic interpretation performed at [facility], [address] [place] [address]. HISTORY PHYSICAL Observed: 11/29/2017 Status: COMPLETED Source: [place] 10:52 AM [facility] REPOSITORY HNO ID: [id number] Author: Zaira Aparicio Service: (none) Author Type: [...] VISIT REPORT Observed: 11/27/2017 Status: F Source: [place] 10:16 AM [facility] REPOSITORY [facility] [address] [place] [address] OFFICE VISIT Date of Service: 11/27/17 MR#: [id number] Acct: [id number] Name: GLORY HENRIQUEZ Rep #: [id number] : 1945 Provider: Jung Zee MD Age/Sex: 72/F Location: [facility] Status: Signed Intake Vital Signs11/27/17 Height 5 ft 1 in 11/27/17 Weight: 186 lb Intake Visit Reasons: Discuss SX for Breast Lump Co Founder Required: No Is patient in pain?: No [...] mg PO QDAY 11/14/17 [History Confirmed 11/27/17] [facility] Medical History Lightheadedness (Acute) Generalized abdominal pain [...] VISIT REPORT Observed: 11/21/2017 Status: F Source: [place] 11:59 AM [facility] [address] [place] [address] [address] [place] [address] OFFICE VISIT Date of Service: 11/14/17 MR#: [id number] Acct: [id number] Name: GLORY HENRIQUEZ Rep #: [id number] : 1945 Provider: Jung Zee MD Age/Sex: 72/F Location: [facility] Status: Signed Intake Vital Signs11/14/17 Height 5 ft 1 in 11/14/17 Weight: 186 lb Intake Visit Reasons: Breast lump/US/MAMMO 11/08 [facility] Co Founder Required: No Is patient in pain?: No [...] mg PO QDAY 11/14/17 [History Confirmed 11/14/17] [facility] Medical History Lightheadedness (Acute) Generalized abdominal pain [...] No tremor(s), No weakness, No other Exam [facility] Head: normal to inspection, normocephalic, atraumatic Mouth: [...] Status: F Source: [place] UNILATERAL 12:09 PM [facility] REPOSITORY [facility] Imaging Services [address] [place] [address] Breast Limited Unilateral MR#: [id number] Acct: [id number] Name: GLORY HENRIQUEZ Rep #: [id number] : 1945 F 72 From: Peter Davidson MD PCP: Alexi Galindo MD, Chi Status: REG CLI Study: Breast Limited Unilateral Date of Exam: 11/20/17 Exam# [id number] Ordering Dr: Jung Zee MD STUDY: ULTRASOUND [...] Peter Davidson MD at 13:35 EDT Tel [phone], Service support , CC: Jung Zee MD; Alexi Galindo MD Manager Field: Signed CBC W/DIFF, AUTOMATED Collected: 11/12/2017 Status: F Source: [place] 10:36 AM [facility] REPOSITORY TYPE CODE TESTS RESULT OUT OF [...] Lymph 1.67 Performed By: #### L100.0100 #### [facility] [address], [address] COMPREHENSIVE METABOLIC Collected: 11/12/2017 Status: F Source: [facility] 10:36 AM [facility] REPOSITORY TYPE CODE TESTS RESULT OUT OF [...] 6 Performed By: #### L500.4050, L501.9520 #### [facility] [address], [place], [address] THYROID STIM HORMONE Collected: 11/12/2017 Status: F Source: [place] (TSH) 10:36 AM [facility] REPOSITORY TYPE CODE TESTS RESULT OUT OF RANGE REFERENCE UNITS LAB L501.9520 0.358-3.74 uIU/mL Normal TSH 1.03 Performed By: #### L500.4050, L501.9520 #### [facility] [address] [place], [address] VITAMIN D,25 HYDROXY Collected: 11/12/2017 Status: F Source: [place] 10:36 AM [facility] REPOSITORY TYPE CODE TESTS RESULT OUT OF REFERENCE UNITS RANGE LAB L506.1000 29.95-100.01 ng/mL Low Vitamin D 14.2 25-OH Result Comment: Vitamin D 25(OH) Status Range Deficiency <20 ng/mL (50nmol/L) Insuffciency 20 - 30 ng/mL (50 - 75 nmol/L) Sufficiency 30 - 100 ng/mL (75 - 250 nmol/L) Toxicity >100 ng/mL (>250 nmol/L) Performed By: #### L506.1000 #### [facility] [address] [place], [address] HEPATITIS C ANTIBODIES Collected: 11/12/2017 Status: F Source: [place] 10:36 AM [facility] REPOSITORY TYPE CODE TESTS RESULT OUT OF RANGE REFERENCE UNITS LAB L3100.0650 0.0-0.9 s/co ratio Normal HEP C AB <0.1 Result Comment: Negative: < 0.8 Indeterminate: 0.8 - 0.9 Positive: > 0.9 The CDC recommends that a positive HCV antibody result be followed up with a HCV Nucleic Acid Amplification test (820871). Performed at: - [facility] [id number] Inside Sales Agent: Brock Lopez PhD, Phone: [phone] Performed By: #### L3100.0625 #### [facility] (refer to report for specific site) refer to report for address and phone number BREAST LIMITED Observed: 11/08/2017 Status: F Source: [place] UNILATERAL 9:26 AM [facility] REPOSITORY [facility] Services [address] [place] [address] Breast Limited Unilateral MR#: [id number] Acct: [id number] Name: GLORY HENRIQUEZ Rep #: [id number] : 1945 F 72 From: Peter Davidson MD PCP: Alexi Galindo MD, Chi Status: REG CLI Study: Breast Limited Unilateral Date of Exam: 11/08/17 Exam# [id number] Ordering Dr: Alexi Galindo MD STUDY: ULTRASOUND [...] Peter Davidson MD at 12:22 EDT Tel [phone], Service support , CC: Alexi Galindo MD Manager Field: Signed DIAG MAMM W/CAD, Observed: 11/08/2017 Status: F Source: [place] BILAT 9:26 AM [facility] REPOSITORY [facility] Imaging Services [address] [place] [address] DIAG MAMM W/CAD, BILAT MR#: [id number] Acct: [id number] Name: GLORY HENRIQUEZ Rep #: [id number] : 1945 F 72 From: Peter Davidson MD PCP: Alexi Galindo MD, Chi Status: REG CLI Study: DIAG MAMM W/CAD, BILAT Date of Exam: 11/08/17 Exam# [id number] Ordering Dr: Alexi Galindo MD MAMMOGRAPHY - [...] Peter Davidson MD at 12:24 EDT Tel [phone], Service support , CC: Alexi Galindo MD Manager Field: Signed VENOUS DUPLEX LOWER Observed: 10/27/2017 Status: F Source: [place] EXTREMITY 3:35 PM [facility] REPOSITORY [facility] Cardiovascular Services [address] [place] [address] Venous Duplex US - Pedro Extrem 10/26/17 1102 MR#: [id number] Acct: [id number] Name: GLORY HENRIQUEZ Rep #: [id number] : 1945 72 From: Nikolai Doherty MD Attending Dr: Alexi Galindo MD, Chi Status: REG CLI Ordering Dr: Alexi Galindo MD Date: 10/26/17 Location: [facility] Sex: F C Admitted: Reason For Study: [...] Alexi Galindo Chi Performed By: Charity Mendez, MARIBELL, RVT 10/27/17 1534 Date Nikolai Doherty MD CC: Alexi Galindo MD Date Dictated: 10/26/17 1102 Date Transcribed: 10/27/17 1534 Manager Field: Signed L/S SPINE W BEND Observed: 10/26/2017 Status: F Source: [place] MIN 6 VW 10:34 AM [facility] REPOSITORY [facility] Imaging Services [address] [place] [address] L/S Spine w Bend Min 6 Vw MR#: [id number] Acct: [id number] Name: GLORY HENRIQUEZ Faye Rep #: [id number] : 1945 F 72 From: Amos Jasso MD PCP: Alexi Galindo MD, Chi Status: REG CLI Study: L/S Spine w Bend Min 6 Vw Date of Exam: 10/26/17 Exam# [id number] Ordering Dr: Alexi Galindo MD STUDY: X-RAY [...] Service support , CC: Alexi Galindo MD Manager Field: Signed CNCO Observed: 10/23/2017 Status: COMPLETED Source: [place] 12:00 AM [facility] REPOSITORY Letter Text Colonoscopy (MIRALAX - SPLIT DOSE) Instructions Appointment Date: 11/29/17 At 11:00 AM Facility: [facility] [address] [place] [address] Arrive At: 10:15 AM Special instructions: yes To ensure a successful exam, please follow all instructions carefully. You MUST arrange a ride for the day of your exam. If you fail to arrange acceptable transportation, your procedure will need to be rescheduled. Please bring a list of all your current medications, including any scgv-mst-zawuavg medications with you. If you must cancel or reschedule your appointment, please call our office at [phone] as soon as possible. DIABETIC PATIENTS Use [...] suppositories. VIANNEY Observed: 08/28/2017 Status: COMPLETED Source: [place] 2:30 PM [facility] REPOSITORY Office Visit (GSTNOR) GLORY HENRIQUEZ ([id number]) 1945 F Date Time Provider Department 08/28/17 2:30 PM ZAIRA APARICIO GSTNOR During your visit today, we recorded the following information about you: Pulse Blood pressure Weight Height 80/minute 126/80 85.7 kg 1.524 m Zaira Aparicio 08/28/2017 4:05 PM Signed Recheck (EGD) HPI Glory Henriquez is a [...] Radioisotope gastric emptying study 2 wks at [facility]. Was neg. Dr. Galindo suggested colonoscopy. Last [...] knees, hands - DVT (deep venous thrombosis) ([facility]) 2003 - Esophageal reflux - Unspecified essential [...] 72 - Diabetes Father Parkinsons, HTN, CAD, [place] - Hypertension Father - Stroke Father - [...] - DIAGNOSTIC No Follow-up on file. Zaira Apaircio DATE: 08/28/17 TIME: 4:04 PM I have confirmed and edited as necessary, the PFSH, HPI and ROS obtained by others. Amy Velasquez Ma Referring Provider: ZAIRA APARICIO [[id number]] Allergies As of Date: 08/28/2017 Noted Allergy [...] Diagnosis:Abnormal weight loss [R63.4] Order(s):COLONOSCOPY - DIAGNOSTIC [8310968] Order #: [id number] FUTURE peg 3350-Electrolytes (GOLYTELY) 236-22.74-6.74 - 5.86 gram suspensionTake as directedDisp: 1 BottleRfl: 0 SHALINI PT ED DIGESTIVE DISEASES [7208902] Order #: [id number]. #:[id number]: 1 Prescriptions as of 08/28/2017 Sig: SPIRONOLACTONE [...] 08/28/17 PROGRESS Observed: 08/28/2017 Status: COMPLETED Source: [place] 2:14 PM [facility] REPOSITORY HNO ID: [id number] Author: Zaira Aparicio Service: (none) Author Type: Physician Type: Progress Notes Filed: 08/28/2017 4:05 PM Note Text: Recheck (EGD) DUSTIN Henriquez is a 72 year old [...] Radioisotope gastric emptying study 2 wks at [facility]. Was neg. Dr. Galindo suggested colonoscopy. Last [...] knees, hands - DVT (deep venous thrombosis) ([facility]) 2003 - Esophageal reflux - Unspecified essential [...] 72 - Diabetes Father Parkinsons, HTN, CAD, [place] - Hypertension Father - Stroke Father - [...] ROS obtained by others. Amy Velasquez Ma CNCO Observed: 08/28/2017 Status: COMPLETED Source: [place] 12:00 AM [facility] REPOSITORY Letter Text COLONOSCOPY-GOLYTELY NO SOLID FOOD THE DAY BEFORE THIS EXAM Appointment Date: 10/18/17 at 9:00 AM Facility: [place] [address] Arrive At: 8:15 AM Special Instructions: yes You must have a responsible adult to drive you home and assist you at home while you finish recovering from your sedation. Please bring only one person with you. Bring a list of your medications, insurance card and bung driver's license. Arrive 30-45 minutes before your [...] Any questions, please call our office at [phone] Ext [phone] or [phone]. GASTRIC EMPTYING Observed: 08/15/2017 Status: F Source: [place] STUDY 12:54 PM [facility] REPOSITORY [facility] Imaging Services [address] [place] [address] Gastric Emptying Study MR#: [id number] Acct: [id number] Name: GLORY HENRIQUEZ Rep #: [id number] : 1945 F 72 From: Igor Alvarez DO PCP: Mikel BENNETT,Alexi Cárdenas Status: REG CLI Study: Gastric Emptying Study Date of Exam: 08/15/17 Exam# [id number] Ordering Dr: Alexi Galindo MD CLINICAL: 72-year-old [...] Service support , CC: Alexi Galindo MD Manager Field: Signed 5-HIAA 24 HR UR Collected: 08/11/2017 Status: F Source: [place] 7:30 AM [facility] REPOSITORY Order Comment: STARTED 08/10/17 0730AM ENDED 08/11/17 0730AM TYPE CODE TESTS RESULT OUT OF RANGE REFERENCE UNITS LAB L3600.2600 Undefined mg/L Normal 5-HIAA,UR 3.1 LAB L3600.2700 0.0-14.9 mg/24 hr Normal 2.9 5-HIAA,U24 Result Comment: This test was developed and its performance characteristics determined by [employer]. It has not been cleared or approved by the Food and Drug Administration. Performed at: [address] [id number] Inside Sales Agent: Andrea oRsario MD, Phone: [phone] Performed By: #### L3600.2500 #### [facility] (refer to report for specific site) refer to report for address and phone number MISCELLANEOUS LAB Collected: 08/09/2017 Status: F Source: [place] PROCEDURE 3:45 PM [facility] REPOSITORY Order Comment: Comments: [id number] A,SERUM,REFRIG Test(s) Ordered: [id number] A,SERUM,REFRIG TYPE CODE TESTS RESULT OUT OF RANGE REFERENCE UNITS LAB L801.1541 Normal [facility] LAB TEST Result Comment: TEST RESULT LIMITS Chromogranin A 2 nmol/L 0 - 5 Chromogranin A performed by [employer] methodology. Results for this test are designated to be for research purposes only by the assay's grievance and appeals specialist. The performance characteristics of this product have not been established. Results for this test should not be used as absolute evidence of presence or absence of malignant disease without confirmation of the diagnosis by another medically established diagnostic product or procedure. Values obtained with different assay methods or kits cannot be used interchangeably. TESTING PERFORMED AT [facility]. ORIGINAL REPORT ON FILE IN LAB CONTAINS ADDITIONAL TEST SITE INFORMATION. Performed By: #### L801.1541 #### [facility] [address] [place], [address] EMERGENCY DEPARTMENT Observed: 08/04/2017 Status: F Source: [place] SUMMARY 5:38 PM [facility] REPOSITORY [facility] Medical Records Department [address] [facility] [address] Emergency Department Summary 08/04/17 1730 MR#: [id number] Acct: [id number] Name: GLORY HENRIQUEZ Rep #: [id number] : 1945 72 From: Chico Moore MD PCP: Alexi Galindo MD, Chi Status: REG ER - ER Visit Summary [...] to home to follow-up with PCP and resident care spec Impression: 1. Bilateral abdominal pain of uncertain etiology 2. History of fibromyalgia 3. Status post appendectomy 4. Status post cholecystectomy 5. Status post hysterectomy This note was generated with [employer] software. It may contain incorrect words, spelling, [...] your Primary Care Provider. Call [facility] ([phone]) or report to the closest Emergency Room. Call 911 if necessary. 08/04/17 1734 <Electronically signed by Chico Moore MD> Date Chico Moore MD Cosigner Signature (If Indicated): Date CC: Alexi Galindo MD CBC W/DIFF, AUTOMATED Collected: 08/04/2017 Status: F Source: [place] 4:33 PM [facility] REPOSITORY TYPE CODE TESTS RESULT OUT OF [...] Lymph 1.31 Performed By: #### L100.0100 #### [facility] [address] [place], [address] COMPREHENSIVE METABOLIC Collected: 08/04/2017 Status: F Source: [place] BRIAN 4:33 PM [facility] REPOSITORY TYPE CODE TESTS RESULT OUT OF [...] GAP 5 Performed By: #### L500.4050 #### [facility] [address] [facility] [place], [address] ABDOMEN/PELVIS WITH Observed: 07/30/2017 Status: F Source: [place] CONTRAST 3:50 PM [facility] REPOSITORY [facility] Imaging Services [address] [place] [address] Abdomen/Pelvis WITH Contrast MR#: [id number] Acct: [id number] Name: GLORY HENRIQUEZ Rep #: [id number] : 1945 F 72 From: Amos Jasso MD PCP: Aleix Galindo MD, Chi Status: REG CLI Study: Abdomen/Pelvis WITH Contrast Date of Exam: 07/30/17 Exam# [id number] Ordering Dr: Alexi Galindo MD STUDY: CT [...] Service support , CC: Alexi Galindo MD Manager Field: Signed COMPREHENSIVE METABOLIC Collected: 07/30/2017 Status: F Source: [place] PROFIL 3:19 PM [facility] REPOSITORY TYPE CODE TESTS RESULT OUT OF [...] Performed By: #### L500.4050, L501.2400, L501.2450 #### [facility] [address] [place], [address] AMYLASE Collected: 07/30/2017 Status: F Source: [place] 3:19 PM [facility] REPOSITORY TYPE CODE TESTS RESULT OUT OF RANGE REFERENCE UNITS LAB L501.2400 25-115 U/L Normal SERA 37 Performed By: #### L500.4050, L501.2400, L501.2450 #### [facility] [address] [place], [address] LIPASE Collected: 07/30/2017 Status: F Source: [place] 3:19 PM [facility] [facility] [place] REPOS[facility]ORY TYPE CODE TESTS RESULT OUT OF RANGE REFERENCE UNITS LAB L501.2450 73-393 U/L Normal LIPASE 173 Performed By: #### L500.4050, L501.2400, L501.2450 #### [facility] [address] [place], [place], [address] CBC W/DIFF, AUTOMATED Collected: 07/30/2017 Status: F Source: [place] 3:19 PM [facility] [place] REPOSITORY TYPE CODE TESTS RESULT OUT OF [...] Lymph 1.91 Performed By: #### L100.0100 #### [facility] [address] [place], [place], [address] HISTORY PHYSICAL Observed: 07/24/2017 Status: COMPLETED Source: [place] 11:08 AM [facility] REPOSITORY HNO ID: [id number] Author: Zaira Aparicio Service: (none) Author Type: [...] Sedation Plan: MAC Additional Comments: None Zaira Apraicio MD CNOV Observed: 07/19/2017 Status: COMPLETED Source: [place] 2:00 PM [facility] REPOSITORY Office Visit (GSTNOR) GLORY HENRIQUEZ ([id number]) 1945 F Date Time Provider Department 07/19/17 2:00 PM ZAIRA APARICIO During your visit today, we recorded the [...] knees, hands - DVT (deep venous thrombosis) ([facility]) 2003 - Esophageal reflux - Unspecified essential hypertension PAST SURGICAL HISTORY Procedure Laterality Date - APPENDECTOMY - COLONOSCOP W/ OR W/O [facility] SPEC Colonoscopy - COLONOSCOP W/ OR W/O [...] 72 - Diabetes Father Parkinsons, HTN, CAD, [place] - Hypertension Father - Stroke Father - [...] Upset Date Reviewed: 07/19/2017 Reviewed by: Zaira Aparicio - Fully Assessed Reason for Visit: Throat Problem [109] Nausea [70] decrease in appetite [Other] Primary Visit Diagnosis:Dysphagia, unspecified type [R13.10] Order(s):EGD DILATION GEN ANES [9433340] Order #: [id number] FUTURE Prescriptions as of 07/19/2017 Sig: MELOXICAM [...] 07/19/2017 1:34 PM >> MARYANNE GROVE LPN [facility] Jul 19, 2017 1:34 PM Not taking CIPROFLOXACIN 500 MG TABLET >> Maryanne Grove LPN 07/19/2017 1:34 PM >> MARYANNE GROVE LPN [facility] Jul 19, 2017 1:34 PM Not taking CLINDAMYCIN HCL 150 MG CAPSULE >> Maryanne Grove LPN 07/19/2017 1:34 PM >> MARYANNE GROVE LPN [facility] Jul 19, 2017 1:34 PM Not taking CODEINE 10 MG-GUAIFENESIN 100 MG/5 ML ORAL LIQUID >> Maryanne Grove LPN 07/19/2017 1:34 PM >> MARYANNE GROVE CHIEF FUNDRAISING OFFICER SunJul 19, 2017 1:34 PM Not taking IBUPROFEN 600 MG TABLET >> Maryanne Grove CHIEF FUNDRAISING OFFICER 07/19/2017 1:35 PM >> MARYANNE GROVE CHIEF FUNDRAISING OFFICER Jayne Jul 19, 2017 1:35 PM Not taking MAGNESIUM OXIDE 400 MG TABLET >> Maryanne Grove CHIEF FUNDRAISING OFFICER 07/19/2017 1:35 PM >> MARYANNE GROVE CHIEF FUNDRAISING OFFICER SunJul 19, 2017 1:35 PM Not taking PREDNISONE 10 MG TABLET >> Maryanne Grove CHIEF FUNDRAISING OFFICER 07/19/2017 1:36 PM >> MARYANNE GROVE CHIEF FUNDRAISING OFFICER [facility] Jul 19, 2017 1:36 PM Not taking PRAVASTATIN 40 MG TABLET >> Maryanne Grove CHIEF FUNDRAISING OFFICER 07/19/2017 1:35 PM >> MARYANNE GROVE LPN [facility] Jul 19, 2017 1:35 PM Not taking NORTRIPTYLINE 25 MG CAPSULE >> Maryanne Grove CHIEF FUNDRAISING OFFICER 07/19/2017 1:35 PM >> MARYANNE GROVE LPN [facility] Jul 19, 2017 1:35 PM ,Not taking SPIRONOLACTONE 25 MG TABLET >> Maryanne Grove CHIEF FUNDRAISING OFFICER 07/19/2017 1:36 PM >> MARYANNE GROVE LPN Jayne Jul 19, 2017 1:36 PM duplicate >> Maryanne Grove CHIEF FUNDRAISING OFFICER 07/19/2017 1:37 PM >> MARYANNE GROVE LPN [facility] Jul 19, 2017 1:37 PM Not taking PRAVASTATIN 40 MG TABLET >> Maryanne Grove CHIEF FUNDRAISING OFFICER 07/19/2017 1:36 PM >> MARYANNE GROVE LPN Jayne Jul 19, 2017 1:36 PM Not taking PREDNISONE 20 MG TABLET >> Maryanne Grove CHIEF FUNDRAISING OFFICER 07/19/2017 1:36 PM >> MARYANNE GROVE LPN [facility] Jul 19, 2017 1:36 PM Not taking SPIRONOLACTONE 25 MG TABLET >> Maryanne Grove CHIEF FUNDRAISING OFFICER 07/19/2017 1:37 PM >> MARYANNE GROVE LPN [facility] Jul 19, 2017 1:37 PM Not taking [...] 07/19/17 PROGRESS Observed: 07/19/2017 Status: COMPLETED Source: [place] 1:37 PM [facility] REPOSITORY O ID: [id number] Author: Zaira Aparicio Service: (none) Author Type: [...] knees, hands - DVT (deep venous thrombosis) ([facility]LY [facility]) 2003 - Esophageal reflux - Unspecified essential hypertension PAST SURGICAL HISTORY Procedure Laterality Date - APPENDECTOMY - COLONOSCOP W/ OR W/O [facility] SPEC Colonoscopy - COLONOSCOP W/ OR W/O [...] 72 - Diabetes Father Parkinsons, HTN, CAD, [place] - Hypertension Father - Stroke Father - [...] PM CNCO Observed: 07/19/2017 Status: COMPLETED Source: [place] 12:00 AM [facility] REPOSITORY Letter Text UPPER ENDOSCOPY (EGD) You are scheduled at: [facility] [place] [address] You are scheduled for an EGD on 07/24/17 at 11:30 am. YOU MUST have a responsible adult to drive you home and to assist you at home while you finish recovering from your sedation. Please limit the number of people that come with you to 1-2 people due to the limited waiting area. Bring your Computer Systems Auditor's license, insurance card(s) and a list of [...] Any questions, please call our office at [phone]. There will be a $50.00 charge for any no show appointments or same day cancels. Observed: 05/31/2017 Status: F Source: [place] CULTURE, URINE 10:40 AM [facility] [place] REPOSITORY Urine Culture ORGANISM 1: Mixed Gram Positive Organisms Tranquillity Count 1000-10,000 MIX CULTURE Mixed contaminants. Submit a new specimen if indicated. Performed By: #### M100.0650 #### [facility] [address], [address] 12 LEAD ELECTROCARDIOGRAM Observed: 05/22/2017 Status: F Source: [place] 10:10 AM [facility] [place] REPOSITORY [facility] Cardiovascular Services [address] [place] [address] 12 Lead EKG 05/17/17 0946 MR#: [id number] Acct: [id number] Name: GLORY HENRIQUEZ Rep #: [id number] : 1945 72 From: Jung Ballard MD Attending Dr: Cindy MEDINA,Leroy Status: DIS PARVEEN Ordering Dr: Tomeka Babcock DO Date: 05/17/17 Location: [facility] Sex: F C Admitted: 05/17/17 Test Reason : NEAR SYNCOPE Blood Pressure : / mmHG Vent. Rate : 084 BPM Atrial Rate : 084 BPM P-R Int : 150 ms QRS Dur : 070 ms QT Int : 402 ms P-R-T Axes : 030 -08 -05 degrees QTc Int : 475 ms Normal sinus rhythm Normal ECG Confirmed by JUNG BALLARD ([id number]), web content editor BANDAR PATEL ([id number]) on 05/22/2017 10:10:09 AM Referred By: JOSE Confirmed By:JUNG BALLARD 05/22/17 1010 Date Jung Ballard MD CC: Alexi Galindo MD Signed DISCHARGE SUMMARY Observed: 05/20/2017 Status: F Source: [place] 7:59 AM [facility] [place] REPOSITORY [facility] Medical Records Department [address] [place] [address] Discharge Summary 05/20/17 0756 MR#: [id number] Acct: [id number] Name: GLORY HENRIQUEZ Rep #: [id number] : 1945 72 From: Leroy White DO PCP: Mikel BENNETT,Alexi Cárdenas Status: DIS PARVEEN Y Location: [place] [address]1 Discharge Date and Diagnosis Date of Admission: [...] was seen in the emergency room at [facility] with chief complaint of diarrhea, abdominal [...] applicable Code Visit OBSV E AND M: 46424 Observation care discharge 05/20/17 0759 <Electronically signed by Leroy White DO> Date Leroy White DO Cosigner Signature (if applicable): Date CC: Leroy White DO; Alexi Galindo MD Signed HISTORY AND PHYSICAL Observed: 05/20/2017 Status: F Source: [place] EXAM 7:56 AM [facility] [place] REPOSITORY [facility] Medical Records Department [address] [place] [address] History and Physical 05/17/172019 MR#: [id number] Acct: [id number] Name: GLORY HENRIQUEZ Rep #: [id number] : 1945 72 From: Leroy White DO PCP: Alexi Galindo MD, Chi Status: DIS PARVEEN Y Location: [place] [address] Problem List (1) Diarrhea Status: Acute Qualifiers: Diarrhea type: presumed infectious Qualified Code(s): R19.7 - Diarrhea, unspecified (2) Generalized abdominal pain Status: Acute (3) Lightheadedness Status: Acute History of Present Illness Date of Admission: 05/17/17 Chief Complaint: Lightheadedness, diarrhea, generalized abdominal pain The patient is a 72 year old F was seen in the emergency room at [facility] with chief complaint of 2 episodes [...] catheterization Psychiatric History: No pertinent psych hx END FINDER TWISTING DEPARTMENT History: No pertinent END FINDER TWISTING DEPARTMENT history Lives: Spouse/ Significant Other Smoking Status: [...] dehydration Code Visit OBSV E AND M: 18181 Initial observation care L3 05/20/17 0756 <Electronically signed by Leroy White DO> Date Leroy White DO Cosigner Signature: Date (if applicable) CC: Leroy White DO; Alexi Galindo MD Signed URINALYSIS, COMPLETE Collected: 2017 Status: F Source: [place] 10:14 PM [facility] [place] REPOSITORY Order Comment: Has pt arrived? Y How was Urine Obtained? TRAILER STEERER TO SPECIFY TYPE CODE TESTS RESULT OUT [...] URINE SEEN Performed By: #### L400.0001 #### [facility] [address], [address] EMERGENCY DEPARTMENT Observed: 2017 Status: F Source: [place] SUMMARY 1:09 PM [facility] [place] REPOSITORY [facility] Medical Records Department [address] [place] [address] Emergency Department Summary 05/17/17 1302 MR#: [id number] Acct: [id number] Name: GLORY HENRIQUEZ Rep #: [id number] : 1945 72 From: Tomeka Babcock DO PCP: Mikel BENNETT,Warby Parker Status: REG ER - ER Visit Summary [...] Generalized weakness] This note was generated with Evernote dictation software. It may contain incorrect words, spelling, and punctuation that were not noted in review of the chart prior to signing ED Disposition - Plan for ED Patient: Chief Complaint: Abd Pain Referrals: Alxei Galindo Chi, MD [Primary Care Provider] - What to do if you have Problems For any increased pain, shortness of breath, bleeding, nausea or vomiting, chest pain, or any unexpected problems, contact your Primary Care Provider. Call [facility] ([phone]) or report to the closest Emergency Room. Call 911 if necessary. 05/17/17 1309 <Electronically signed by Tomeka Babcock DO> Date Tomeka Babcock DO Cosigner Signature (If Indicated): Date CC: Alexi Galindo MD CBC W/DIFF, AUTOMATED Collected: 2017 Status: F Source: [place] 10:00 AM [facility] [place] REPOSITORY TYPE CODE TESTS RESULT OUT OF [...] Lymph 1.79 Performed By: #### L100.0100 #### [facility] [address] [place], [address] LACTIC ACID Collected: 2017 Status: F Source: [place] 10:00 AM [facility] [place] REPOSITORY Order Comment: Yes/No query for Sepsis Lactate Rule Y TYPE CODE TESTS RESULT OUT OF RANGE REFERENCE UNITS LAB L503.6005 0.4-2.0 mmol/L Normal LACTIC ACID 1.6 Performed By: #### L503.6005 #### [facility] [address] [place], [address] COMPREHENSIVE METABOLIC Collected: 2017 Status: F Source: [facility] 10:00 AM [facility] [place] REPOSITORY Order Comment: 'TROP' Serial specimen #1, [...] Performed By: #### L500.4050, L501.2450, L501.4010 #### [facility] [address] [place], [place], [address] LIPASE Collected: 2017 Status: F Source: [place] 10:00 AM [facility] [place] REPOSITORY Order Comment: 'TROP' Serial specimen #1, #2, #3, or #4: 1 TYPE CODE TESTS RESULT OUT OF RANGE REFERENCE UNITS LAB L501.2450 73-393 U/L Normal LIPASE 199 Performed By: #### L500.4050, L501.2450, L501.4010 #### [facility] [address] [place], [address] TROPONIN-I Collected: 2017 Status: F Source: [place] 10:00 AM [facility] [place] REPOSITORY Order Comment: 'TROP' Serial specimen #1, #2, #3, or #4: 1 TYPE CODE TESTS RESULT OUT OF RANGE REFERENCE UNITS LAB L501.4010 <0.06 ng/mL Normal < 0.02 TROPONIN-I Result Comment: TROPONIN-I EXPECTED VALUES <0.05 NEGATIVE 0.06 - 0.59 AT RISK OF ME > OR = 0.60 SUGGEST ME Performed By: #### L500.4050, L501.2450, L501.4010 #### [facility] [address] [place], [address] ABDOMEN/PELVIS WITHOUT Observed: 2017 Status: F Source: [place] CONT 9:39 AM [facility] [place] REPOSITORY [facility] Imaging Services [address] [place] [address] Abdomen/Pelvis without Cont MR#: [id number] Acct: [id number] Name: GLORY HENRIQUEZ Rep #: [id number] : 1945 F 72 From: Peter Davidson MD PCP: Mikel BENNETT,Alexi [facility] Status: REG ER Study: Abdomen/Pelvis without Cont Date of Exam: 05/17/17 Exam# [id number] Ordering Dr: Tomeka Babcock DO STUDY: CT [...] Peter Davidson MD at 11:40 EST Tel [phone], Service support , CC: Tomeka Babcock DO; Alexi Galindo MD Manager Field: Signed ALLERGIES ALLERGIES DATE TYPE / CODE NAME / CODE REACTION SEVERITY SOURCE 04/12/2018 Drug hydrocodone Abd Unknown [place] Allergy/416 bitartrate/[id number] cramps/diarrhe Community 838195([facility] 55(RXNORM) a [facility] ED CT) Repository 04/12/2018 Drug Penicillins/V021797 Hives Unknown [place] Allergy/416 476(RXNORM) Community 731501([facility] ED CT) Repository 04/12/2018 Drug morphine/[id number] Other Unknown [place] Allergy/416 (RXNORM) Community 829430([facility] ED CT) Repository 04/12/2018 Drug latex/[id number](RX Swelling Unknown [place] Allergy/416 NORM) Community 371903([facility] ED CT) Repository 01/12/2015 DRUG ACETAMINOPHEN OTHER: SEE C [facility] Main [place] 181957([facility] ED CT) 04/01/2013 DRUG MORPHINE Mental Chg [facility]/[address] [place] [address] [place] 725071(SNOM Repository ED CT) 11/03/2008 DRUG LATEX RASH [facility] INGREDI/419 Main [place] 684714(SNOM Repository ED CT) 01/18/2006 Chemical/42 ADHESIVE TAPE OTHER: SEE C [facility] 3321482(SNO (ROSINS) Main [place] MED CT) Repository 02/03/2005 DRUG BEE POLLEN OTHER: SEE C [facility] INGREDI/419 [facility] 125881(SNOM Repository ED CT) 02/03/2005 Drug PENICILLINS RASH [facility] Class/63930 Main [place] 1003(SNOMED Repository CT) 02/03/2005 DRUG/416197 HYDROCODONE-ACETAMI GI UPSET [facility] 003(SNOMED NOPHEN [facility] CT) Repository ENCOUNTERS ENCOUNTERS ADMIT/DISCHARGE ACCOUNT ADMITTING ENCOUNTER LOCATION SOURCE NUMBER CLASS 05/14/2018 [id number] [facility] ing:POLAB3 Repository 04/17/2018 [id number] [facility] ing:POLAB3 Repository 04/12/2018/04/13/20 [id number] Sementi, Inpatient Ricardaservando [place] Everett Hagan [facility] ing:OR7Egon: Repository YU258Ccv: 1 04/12/2018 [id number] Sementi, Ambulatory BMSBuilding:Trevor Hagan [facility] Repository 04/12/2018 [id number] Sementi, Ambulatory BMSBuilding:Trevor Hagan [facility] Repository 03/25/2018 [id number] Ambulatory [facility] ing:PSN Repository 03/05/2018/03/05/20 [id number] Ambulatory [address] Repository 12/25/2017/12/26/19 [id number] Ambulatory BMSBuilding:Trevor Chowdary 18 MS.[facility] Repository 12/15/2017 [id number] [facility] ing:LABSPEC Repository 12/15/2017/12/16/19 [id number] Ambulatory BMSBuilding:Trevor Chowdary 18 MS.[facility] Repository 11/29/2017 [id number] Ambulatory [facility] Repository 11/27/2017/11/28/19 [id number] Ambulatory BMSBuilding:B Ricarda 18 MS.[facility] Hospital Repository 11/20/2017 [id number] Ambulatory [facility] Hospital[facility] Hospital ing:US Repository 11/14/2017/11/15/19 [id number] Ambulatory BMSBuilding:B [place] 18 [facility] Hospital Repository 11/12/2017 [id number] Ambulatory [facility] Hospital[facility] Hospital ing:POLAB3 Repository 11/08/2017 [id number] Ambulatory [facility] Hospital[facility] Hospital ing:OPBI Repository 10/26/2017 [id number] Ambulatory [facility] Hospital[facility] Hospital ing:CVS Repository 08/28/2017/08/29/19 [id number] Ambulatory [address] Repository 08/15/2017 [id number] Ambulatory [facility] Hospital[facility] Hospital ing:NM Repository 08/11/2017 [id number] Ambulatory [facility] Hospital ing:LABSPEC Repository 08/09/2017 [id number] Ambulatory [facility] Hospital ing:POLAB3 Repository 08/04/2017/08/05/19 [id number] Emergency [address] HospitalBuild Hospital ing:ED Repository 07/30/2017 [id number] Ambulatory [facility] Hospital ing:CT Repository 07/30/2017 [id number] Ambulatory [facility] Hospital ing:POLAB3 Repository 07/24/2017 [id number] Ambulatory [facility] Repository 07/19/2017/07/20/19 [id number] Ambulatory [address] Repository 05/31/2017 [id number] Ambulatory [facility] Hospital[facility] Hospital ing:POLAB3 Repository 05/17/2017/05/18/19 [id number] [facility] Ambulatory [address] Hospitalild Hospital ing:CJ3Okup: Repository KM924Umh: 1 PAYERS PAYERS ENCOUNTER GUARANTOR PAYER SUBSCRIBER SOURCE 05/14/2018 GLORY L Primary GLORY L Ricarda [id number] E Insurance:MEDICARE BAILEYDOB: Community OLD JOSÉ MIGUEL PART A [facility] [id number] Number: Repository 101[address]Sxn: 330 [id number] [phone] () Date:2018-05-14 05/14/2018 Secondary GLORY L Ricarda Insurance:ANTHEM BAILEYDOB: Community MEDICARE SENIOR [id number] Number: Repository [id number] Date:[id number] [address]YQ: 05/14/2018 Tertiary NOT GIVENUNK [place] Insurance:SELF PAY [facility] Number: Effective Repository Date:2018-05-14 04/17/2018 GLORY L Primary GLORY L Ricarda [id number] E Insurance:MEDICARE BAILEYDOB: Community OLD JOSÉ MIGUEL PART A [facility] [id number] Number: Repository [address]Yiw: 330 [id number] [phone] () Date:2018-04-17 04/17/2018 Secondary NOT GIVENUNK Ricarda Insurance:SELF PAY [facility] Number: Effective Repository Date:2018-04-17 04/12/2018 GLORY L Primary GLORY L Ricarda [id number] E Insurance:MEDICARE BAILEYDOB: Community OLD JOSÉ MIGUEL PART A [facility] [id number] Number: Repository [address]Eex: 330 [id number] [phone] () Date:2018-04-12 04/12/2018 Secondary NOT GIVENUNK Ricarda Insurance:SELF PAY [facility] Number: Effective Repository Date:2018-04-12 04/12/2018 GLORY L Primary GLORY L [place] [id number] E Insurance:MEDICARE BAILEYDOB: Community OLD JOSÉ MIGUEL PART A [facility] [id number] Number: Repository [address]Nyn: 330 [id number] [phone] () Date:2018-04-12 04/12/2018 Secondary NOT GIVENUNK Rciarda Insurance:SELF PAY [facility] Number: Effective Repository Date:2018-04-12 04/12/2018 GLORY Mckinney Primary GLORY Chowdary [id number] E Insurance:MEDICARE BAILEYDOB: Community OLD JOSÉ MIGUEL PART A [facility] [id number], [place] Number: Repository [address]Gus: 330 [id number] [phone] () Date:2018-04-12 04/12/2018 Secondary NOT GIVENUNK Ricarda Insurance:SELF PAY [facility] Number: Effective Repository Date:2018-04-12 03/25/2018 GLORY L Primary GLORY Chowdary [id number] E Insurance:MEDICARE BAILEYDOB: Community OLD JOSÉ MIGUEL PART A [facility] [id number] Number: Repository [address]Min: 330 [id number] [phone] () Date:2017-10-26 03/25/2018 Secondary NOT GIVENUNK [place] Insurance:SELF PAY [facility] Number: Effective Repository Date:2017-10-26 12/25/2017 GLORY L Primary GLORY Mckinney [place] [id number] E Insurance:MEDICARE BAILEYDOB: Community OLD JOSÉ MIGUEL PART A [facility] [id number], [place] Number: Repository [address]Ezm: 330 [id number] [phone] () Date:2017-12-15 12/25/2017 Secondary NOT GIVENUNK [place] Insurance:SELF PAY [facility] Number: Effective Repository Date:2017-12-25 12/15/2017 GLORY L Primary GLORY Sevillaoster [id number] E Insurance:MEDICARE BAILEYDOB: Community OLD JOSÉ MIGUEL PART A [facility] [id number] Number: Repository [address]Jpu: 330 [id number] [phone] () Date:2017-12-15 12/15/2017 Secondary NOT GIVENUNK [place] Insurance:SELF PAY [facility] Number: Effective Repository Date:2017-12-15 12/15/2017 GLORY Mckinney Primary GLORY Mckinney [place] [id number] E Insurance:MEDICARE BAILEYDOB: Community OLD JOSÉ MIGUEL PART A [facility] [id number], [place] Number: Repository [address]Mtv: 330 [id number] [phone] (HP) Date:2017-11-27 12/15/2017 Secondary NOT GIVENUNK Ricarda Insurance:SELF PAY [facility] Number: Effective Repository Date:2017-12-15 11/27/2017 GLORY L Primary GLORY Mckinney [place] [id number] E Insurance:MEDICARE BAILEYDOB: Community OLD JOSÉ MIGUEL PART A [facility] [id number] Number: Repository [address]Hxi: 330 [id number] [phone] (HP) Date:2017-11-22 11/27/2017 Secondary NOT GIVENUNK [place] Insurance:SELF PAY [facility] Number: Effective Repository Date:2017-11-27 11/20/2017 GLORY L Primary GLORY Mckinney [place] [id number] E Insurance:MEDICARE BAILEYDOB: Community OLD JOSÉ MIGUEL PART A [facility] [id number], [place] Number: Repository [address]Len: 330 [id number] [phone] (HP) Date:2017-11-14 11/20/2017 Secondary NOT GIVENUNK [place] Insurance:SELF PAY [facility] Number: Effective Repository Date:2017-11-14 11/14/2017 GLORY L Primary GLORY Mckinney [place]arda [id number] E Insurance:MEDICARE BAILEYDOB: Community OLD JOSÉ MIGUEL PART A [facility] [id number] Number: Repository [address]Ozf: 330 [id number] [phone] (HP) Date:2017-11-12 11/14/2017 Secondary NOT GIVENUNK [place] Insurance:SELF PAY [facility] Number: Effective Repository Date:2017-11-12 11/12/2017 Glory L Primary Glory Chowdary [id number] E Insurance:MEDICARE BaileyDOB: Community OLD JOSÉ MIGUEL PART A [facility] [id number] Number: Repository [address]Fci: 330 [id number] [phone] () Date:2017-11-12 11/12/2017 Secondary NOT GIVENUNK [place] Insurance:SELF PAY [facility] Number: Effective Repository Date:2017-11-12 11/08/2017 Glory L Primary Glory L Ricarda [id number] E Insurance:MEDICARE BaileyDOB: Community OLD JOSÉ MIGUEL PART A [facility] [id number] Number: Repository [address]Qwk: 330 [id number] [phone] () Date:2017-11-05 11/08/2017 Secondary NOT GIVENUNK [place] Insurance:SELF PAY [facility] Number: Effective Repository Date:2017-11-05 10/26/2017 Glory L Primary Glory L Ricarda [id number] Insurance:MEDICARE BaileyDOB: Community OLD JOSÉ MIGUEL PART A [facility] [id number] Number: Repository [address]Nms: 330 [id number] [phone] () Date:2017-10-26 10/26/2017 Secondary NOT GIVENUNK [place] Insurance:SELF PAY [facility] Number: Effective Repository Date:2017-10-26 08/15/2017 Glory L Primary Glory L Sanger [id number] Old Insurance:MEDICARE BaileyDOB: Community [place] PART A [facility] [id number] Number: Repository [address]Vlx: 330 [id number] [phone] () Date:2017-08-09 08/15/2017 Secondary NOT GIVENUNK Ricarda Insurance:SELF PAY [facility] Number: Effective Repository Date:2017-08-09 08/11/2017 Glory L Primary Glory L Ricarda [id number] Old Insurance:MEDICARE BaileyDOB: Community [place] PART A [facility] [id number] Number: Repository [address]Zgz: 330 [id number] [phone] (HP) Date:2017-08-11 08/11/2017 Secondary NOT GIVENUNK [place] Insurance:SELF PAY [facility] Number: Effective Repository Date:2017-08-11 08/09/2017 Glory Chowdary [id number] Old Insurance:MEDICARE BaileyDOB: Community José Miguel PART A [facility] [id number] Number: Repository [address]Nne: 330 [id number] [phone] (HP) Date:2017-08-09 08/09/2017 Secondary NOT GIVENUNK [place] Insurance:SELF PAY [facility] Number: Effective Repository Date:2017-08-09 08/04/2017 Glory Mckinney Primary Glory Chowdary [id number] Old Insurance:MEDICARE BaileyDOB: Community [place] PART A [facility] [id number] Number: Repository [address]Bty: 330 [id number] [phone] () Date:2017-08-04 08/04/2017 Secondary NOT GIVENUNK [place] Insurance:SELF PAY [facility] Number: Effective Repository Date:2017-08-04 07/30/2017 Glory Mckinney Primary Glory Chowdary [id number] Old Insurance:MEDICARE BaileyDOB: Community [place] PART A [facility] [id number] Number: Repository [id number]: 330 [id number] [phone] (HP) Date:2017-07-30 07/30/2017 Secondary NOT GIVENUNK Ricarda Insurance:SELF PAY [facility] Number: Effective Repository Date:2017-07-30 07/30/2017 Glory Mckinney Primary Glory Chowdary [id number] Old Insurance:MEDICARE BaileyDOB: Community José [place] PART A [facility] [id number] Number: Repository [address]Ydb: 330 [id number] [phone] (HP) Date:2017-07-30 07/30/2017 Secondary NOT GIVENUNK [place] Insurance:SELF PAY [facility] Number: Effective Repository Date:2017-07-30 05/31/2017 Glory Mckinney Primary Glory Chowdary [id number] Old Insurance:MEDICARE BaileyDOB: Community José Miguel PART A [facility] [id number] Number: Repository [id number]: [phone] [id number] [phone] () Date:2017-05-31 05/31/2017 Secondary NOT GIVENUNK [place] Insurance:SELF PAY [facility] Number: Effective Repository Date:2017-05-31 2017 Glory Mckinney Primary Glory Chowdary [id number] Old Insurance:MEDICARE BaileyDOB: [facility] PART A [facility] [id number] Number: Repository [address]Agn: 330 [id number] [phone] () Date:2017 2017 Secondary NOT GIVENUNK [place] Insurance:SELF PAY [facility] Number: Effective Repository Date:2017
== END ==
PROVIDERS: Family Provider Family Medicine Geriatric Medicine; PCP Family Medicine Geriatric Medicine; Visit Provider Family Medicine Geriatric Medicine
DX: I10 Essential (primary) hypertension (principal); E55.9 Vitamin D deficiency, unspecified
CPT/HCPCS: 36415; 80053; 82306; 84443; 85025

== ENCOUNTER → 2018-09-25 | Outpatient (CLI) | payer MEDICARE, SELFPAY ==
[2018-04-12 09:23] VITALS: BMI 35.8
[2018-09-25 11:55] LABS: Absolute Lymphocyte Count 1.62 X10^3/ul (0.83-4.51); Absolute Neutrophil Count 4.2 X10^3/uL (2.0-7.7); Basophil# 0.04 X10^3/uL; Basophil% 0.6 % (0-1); Eosinophil# 0.19 X10^3/uL; Eosinophils% 2.9 % (0-5); Hematocrit 42.3 % (37-47); Hemoglobin 13.6 g/dl (12.0-15.0); Lymphocyte # 1.62 X10^3/ul (4.0); Lymphocyte % 24.9 % (19-41); Mean Corp Hgb Conc 32.2 g/gl (32-36); Mean Corpuscular Hgb 26.9 pg (27.0-32.0); Mean Corpuscular Volume 83.6 fL (81-99); Mean Platelet Vol. 10.5 fl (6.2-12.0); Monocyte# 0.47 X10^3/uL; Monocyte% 7.2 % (0-10); Neutrophil # 4.16 X10^3/uL (2.7-7.7); Neutrophil % 64.1 % (47-70); Platelet Count 278 K/mm3 (150-450); RBC Distribution Width CV 13.8 % (11.6-14.6); RBC Distribution Width SD 41.6 fl (35.1-43.9); Red Blood Count 5.06 M/mm3 (4.2-5.4); White Blood Count 6.5 K/mm3 (4.4-11.0)
[2018-09-25 12:04] LABS: POSITIVE COUNT NO; POSITIVE DIFFERENTIAL NO; POSITIVE MORPHOLOGY NO
[2018-09-25 12:18] LABS: ALB/GLOB Ratio 0.7 RATIO (0.9-2.4); AST(SGOT) 22 U/L (15-37); Alanine Aminotransfer ALT/SGPT 20 U/L (13-56); Albumin, Serum 3.2 g/dL (3.2-5.0); Alkaline Phosphatase 119 U/L (45-117); Anion Gap 8 (5-15); BUN 13 mg/dL (7-18); BUN/Creat Ratio 16.2 RATIO (10-20); CPK Total, Creatine Kinase 86 U/L (26-192); Chloride 106 mmol/L (98-107); EST Glomerular Filtration Rate 75 mL/min (>60); Est Glom Filt Rate - Afr Amer 90 mL/min (>60); Globulin 4.5 g/dL (2.2-4.2); Glucose 79 mg/dL (74-106); Potassium 4.2 mmol/L (3.5-5.1); Protein, Total 7.7 g/dL (6.4-8.2); Sodium Level 143 mmol/L (136-145); Thyroid Stim Hormone (TSH) 1.47 uIU/mL (0.358-3.74)
[2018-09-26 08:28] LABS: Myoglobin, Serum 39 ng/mL (25-58)
== END | disposition home or self-care (01) ==
PROVIDERS: Family Provider Family Medicine Geriatric Medicine; PCP Family Medicine Geriatric Medicine; Visit Provider Family Medicine Geriatric Medicine
DX: R07.9 Chest pain, unspecified (principal); N39.0 Urinary tract infection, site not specified
CPT/HCPCS: 36415; 80053; 82550; 83874; 84443; 84484; 85025; 87086; 87088

== ENCOUNTER 2018-10-14 04:05 | Emergency (ER) | payer MEDICARE, SELFPAY ==
[2018-04-12 09:23] VITALS: BMI 35.8
[2018-10-14 04:07] VITALS: BP 149/69; PULSE 77; RESP 16; TEMP 36.7; O2SAT 95; BMI 35.9
--- NOTE | 2018-10-14 04:53 | CT_ITS ---
STUDY: CT ABDOMEN AND PELVIS WITHOUT CONTRAST REASON FOR EXAM: Female, 73 years old. Lower abdominal pain RADIATION DOSAGE (If Supplied By Facility): CTDIvol = ( 15.26 ) mGy, DLP = ( 728.35 ) mGycm TECHNIQUE: Transaxial images were obtained from the dome of the diaphragm to the symphysis pubis without oral contrast, and without intravenous contrast. Sagittal and coronal images were reconstructed. Individualized dose optimization techniques were used for this CT. COMPARISON: None. FINDINGS: The visualized lung bases are unremarkable. The visualized portions of the heart are within normal limits. Normal liver. There are surgical clips in the gallbladder fossa consistent with a prior cholecystectomy. Normal spleen. Normal pancreas. Normal bilateral adrenal glands. Normal right kidney. Normal left kidney. Normal visualized stomach. Normal small intestine. There are multiple colonic diverticula consistent with diverticulosis. There is non-visualization of the appendix. Normal abdominal aorta. Normal inferior vena cava. Normal retroperitoneum. Normal urinary bladder. Normal abdominal wall. There are diffuse degenerative changes of the visualized lumbar spine. CT/Abdomen/Pelvis without Cont IMPRESSION: Colon diverticulosis without evidence of diverticulitis. Electronically Signed: Stacie Davis, at 5:49 EDT Tel , Service support ,
--- NOTE | 2018-10-14 04:55 | ED.VISSUMM ---
- ER Visit Summary Date of Service: 10/14/18 Chief Complaint: Itching and leg swelling History of Present Illness: The patient is a 73 F who presents with itching and leg swelling that is been getting worse since yesterday. Patient states she was bitten by insects in her legs and the swelling is gotten worse. Patient states she took some Benadryl last night prior to going to bed. Patient states she was unable to sleep due to the itching. Patient states the itching is now in her chest and neck area. Patient denies any difficulty breathing or difficulty swallowing. Patient also complains of upper abdominal pain that is sharp. Patient admits to some nausea but denies any vomiting. Patient denies any radiation of the pain. Physical Examination: Vital signs are stable. Patient is afebrile. Patient is in no acute distress. Pupils are equal, round, reactive to light bilaterally. Extraocular muscles are intact. Oral mucosa is pink and moist. Oropharynx is clear. Airway is patent. Neck is supple. Trachea is midline. No JVD noted. Heart was regular rate and rhythm. Lungs are clear and equal bilaterally. Abdomen is soft. Bowel sounds are normal. There is upper abdominal tenderness. There is no rebound or guarding noted. Cranial nerves II through XII are intact. There are no focal motor or sensory deficits noted. Skin is warm dry. There is erythema over the lateral aspects of the lower legs bilaterally. There is some mild tenderness over this area. There is some mild warmth. Test Results: CBC and comprehensive metabolic profile were obtained and were within normal limits. Urinalysis was obtained and was within normal limits. Emergency Department Course and Treatment: Patient appears to have cellulitis of her lower extremities. Patient was given prescription for clindamycin. Patient was instructed to follow-up with her primary care physician in 5 to 7 days. Patient understands and is agreeable with the plan. All questions were answered. Disposition: Discharge home Impression: 1. Lower leg cellulitis This note was generated with [employer] dictation software. It may contain incorrect words, spelling, and punctuation that were not noted in review of the chart prior to signing ED Disposition - Plan for ED Patient: Disposition: Home or Assisted Living Diagnosis: Cellulitis and abscess of leg Instructions: Cellulitis Prescriptions: Clindamycin HCl [Cleocin] 300 mg PO Q6H #40 cap Prescription Printed Referrals: Alexi Morin Chi, MD [Primary Care Provider] - 3-5 Days
[2018-10-14] MEDS: 0.9% Normal Saline 1,000 ML 1000 ML IV (05:05)
[2018-10-14] MEDS: proMETHazine 25 MG/ML Syringe 6.25 MG IV (05:06)
[2018-10-14 05:32] LABS: Absolute Lymphocyte Count 1.42 X10^3/ul (0.83-4.51); Absolute Neutrophil Count 6.8 X10^3/uL (2.0-7.7); Basophil# 0.02 X10^3/uL; Basophil% 0.2 % (0-1); Eosinophil# 0.21 X10^3/uL; Eosinophils% 2.3 % (0-5); Hematocrit 42.6 % (37-47); Lymphocyte # 1.42 X10^3/ul (4.0); Lymphocyte % 15.6 % (19-41); Mean Corp Hgb Conc 32.9 g/gl (32-36); Mean Corpuscular Hgb 27.1 pg (27.0-32.0); Mean Corpuscular Volume 82.4 fL (81-99); Mean Platelet Vol. 9.7 fl (6.2-12.0); Monocyte% 7.7 % (0-10); Neutrophil # 6.76 X10^3/uL (2.7-7.7); Platelet Count 256 K/mm3 (150-450); RBC Distribution Width SD 41.5 fl (35.1-43.9); Red Blood Count 5.17 M/mm3 (4.2-5.4); White Blood Count 9.1 K/mm3 (4.4-11.0)
[2018-10-14 05:33] LABS: POSITIVE COUNT NO; POSITIVE DIFFERENTIAL NO; POSITIVE MORPHOLOGY NO
[2018-10-14 05:35] LABS: ALB/GLOB Ratio 0.8 RATIO (0.9-2.4); AST(SGOT) 22 U/L (15-37); Alanine Aminotransfer ALT/SGPT 19 U/L (13-56); Albumin, Serum 3.3 g/dL (3.2-5.0); Alkaline Phosphatase 123 U/L (45-117); Anion Gap 7 (5-15); BUN 23 mg/dL (7-18); Calcium,Total 9.2 mg/dL (8.5-10.1); Chloride 107 mmol/L (98-107); Creatinine, Serum 0.85 mg/dL (0.55-1.02); EST Glomerular Filtration Rate 70 mL/min (>60); Est Glom Filt Rate - Afr Amer 84 mL/min (>60); Estimated Creatinine Clearance 45.81 ml/min; Globulin 4.2 g/dL (2.2-4.2); Glucose 86 mg/dL (74-106); Lipase 226 U/L (73-393); Potassium 3.8 mmol/L (3.5-5.1); Protein, Total 7.5 g/dL (6.4-8.2); Sodium Level 144 mmol/L (136-145)
[2018-10-14 08:02] LABS: Color, Urine Yellow (Yellow); Glucose, Dipstick Normal (Normal); Ketone-Dipstick Negative (Negative); Leukocyte Esterase-Dipstick 25 /ul (Negative); Nitrite-Dipstick Negative (Negative); Occult Blood-Urine Negative /ul (Negative); Protein-Dipstick Negative (Negative); Red Blood Cells-Urine 0 SEEN /hpf (0-5); Specific Gravity, Urine 1.015 (1.002-1.030); Urine Bilirubin Dipstick Negative (Negative); Urine Clarity Clear (Clear); Urine Urobilinogen Normal (Normal)
[2018-10-14 08:15] LABS: Bacteria RARE /hpf (None Seen); Mucous, Urine RARE /hpf (<or=2+); Squamous Epithelial Cells - UA 0-5 SEEN /hpf (5-10); White Blood Cells 0-5 SEEN /hpf (0-5)
[2018-10-14 08:36] VITALS: BP 160/85; PULSE 75; RESP 16; O2SAT 97
[2018-10-14] MEDS: Clindamycin HCl 150 MG Capsule 300 MG PO (08:38)
== END 2018-10-14 08:46 | disposition home or self-care (01) ==
PROVIDERS: Emergency Provider Emergency Medicine; Family Provider Family Medicine Geriatric Medicine; PCP Family Medicine Geriatric Medicine
DX: L03.116 Cellulitis of left lower limb (principal); L03.115 Cellulitis of right lower limb; K21.9 Gastro-esophageal reflux disease without esophagitis; M79.7 Fibromyalgia; R11.0 Nausea
CPT/HCPCS: 74176; 80053; 81001; 83690; 85025; 96361; 96374; 99284; J7030; A4216

== ENCOUNTER 2018-11-06 16:43 | Emergency (ER) | payer MEDICARE, SELFPAY ==
[2018-11-06 16:45] VITALS: BP 167/107; PULSE 81; RESP 17; TEMP 36.4; O2SAT 98; BMI 37.4
--- NOTE | 2018-11-06 17:02 | CT_ITS ---
STUDY: CT BRAIN WITHOUT CONTRAST REASON FOR EXAM: Female, 73 years old. Fall RADIATION DOSAGE (If Supplied By Facility): DLP = ( 779.24 ) mGycm TECHNIQUE: Transaxial CT imaging of the brain was performed without administration of intravenous contrast material. Individualized dose optimization techniques were used for this CT. COMPARISON: CT head April 12, 2018 FINDINGS: There is no acute bleed or infarct. There are chronic ischemic and atrophic changes. The ventricles are normal in configuration. There is no hydrocephalus. The visualized paranasal sinuses are clear. The mastoid air cells are well aerated. There is no skull fracture. CT/Brain/Head without Contrast IMPRESSION: No acute intracranial abnormality. Chronic ischemic and atrophic changes. Electronically Signed: Drake Duff, at 17:42 EDT Tel , Service support ,
--- NOTE | 2018-11-06 17:02 | RAD_ITS ---
STUDY: X-RAY - LEFT WRIST REASON FOR EXAM: Female, 73 years old. Fall TECHNIQUE: 3 view(s) of the wrist were obtained. COMPARISON: None. FINDINGS: There is no evidence of fracture or dislocation. Prominent degenerative changes are present at the first carpal metacarpal joint. There are no radiodense foreign bodies. RAD/Wrist min 3 Views IMPRESSION: No fracture or dislocation. Degenerative changes described above. Electronically Signed: Drake Duff, at 17:31 EDT Tel , Service support ,
--- NOTE | 2018-11-06 17:02 | CT_ITS ---
STUDY: CT CERVICAL SPINE WITHOUT CONTRAST REASON FOR EXAM: Female, 73 years old. Fall RADIATION DOSAGE (If Supplied By Facility): DLP = ( 525.36 ) mGycm TECHNIQUE: High resolution transaxial imaging was performed without contrast material. Sagittal and coronal images were reconstructed. Individualized dose optimization techniques were used for this CT. COMPARISON: None available. FINDINGS: There is no evidence of fracture or dislocation in the cervical spine. The dens is intact. Alignment is normal. The vertebral body heights and disc spaces are well-maintained. Age appropriate degenerative changes are present. The visualized paraspinal soft tissues are within normal limits. CT/Spine Cervical without Contras IMPRESSION: No fracture or dislocation in the cervical spine. No significant degenerative changes. Electronically Signed: Drake Duff, at 18:18 EDT Tel , Service support ,
--- NOTE | 2018-11-06 17:02 | CT_ITS ---
STUDY: CT FACIAL BONES WITHOUT CONTRAST REASON FOR EXAM: Female, 73 years old. Fall RADIATION DOSAGE (If Supplied By Facility): CTDIvol = ( 29.38 ) mGy, DLP = ( 547.46 ) mGycm TECHNIQUE: The patient was scanned in a multi detector CT scanner. Sagittal and coronal images were reconstructed. Individualized dose optimization techniques were used for this CT. COMPARISON: None. FINDINGS: Normal soft tissue structures. Normal orbital nguyen and orbital contents. Normal nasal bones and anterior nasal spine. Normal facial bones. There is no demonstrated fracture. Normal visualized paranasal sinuses. CT/Sinus/Facial Bone IMPRESSION: Normal unenhanced CT of the facial bones. Electronically Signed: Drake Duff, at 17:38 EDT Tel , Service support ,
--- NOTE | 2018-11-06 17:10 | RAD_ITS ---
STUDY: X-RAY - RIGHT TIBIA AND FIBULA REASON FOR EXAM: Female, 73 years old. Fall TECHNIQUE: 2 view(s) of the tibia and fibula were obtained. COMPARISON: None. FINDINGS: Total right knee arthroplasty is present. There is no evidence of complication. There is no evidence of fracture or dislocation. There are no significant degenerative changes. There are no radiodense foreign bodies. There is an anterior soft tissue density in the mid lower leg. RAD/Tibia & Fibula 2 Views IMPRESSION: No fracture or dislocation. Anterior soft tissue density in the mid lower leg, which may represent hematoma in the setting of trauma. Correlate with clinical exam. Electronically Signed: Drake Duff, at 17:27 EDT Tel , Service support ,
[2018-11-06] MEDS: Diphth,Pertuss(Acell),Tet Vac 0.5 ML Vial IM (17:27)
--- NOTE | 2018-11-06 18:07 | ED.DCSUM_ITS ---
- ER Visit Summary Date of Service: 11/06/18 Chief Complaint: [Fall ] History of Present Illness: The patient is a 73 F [presents to the emergency department with a fall that occurred prior to arrival in the emergency department. Patient states that she was taking her son's dog out when her shoe caught on a step and she fell striking her face on the deck. No loss of consciousness. Patient complains of pain to her left wrist. Complains of pain and soft tissue swelling to the right anterior chirinos. She initially denied any chest pain or abdominal pain. She denies any neck pain initially. Patient has history of hypertension and GERD. Patient is not on any blood thinners.] Physical Examination: [HEENT-PERRLA, EOMI. Cranial nerves II through XII grossly intact. TMs clear. Mucous membranes moist. No adenopathy. She has mild diffuse C-spine tenderness on palpation. No bony step-offs noted. Patient has superficial abrasion to the nasal bridge with some mild soft tissue swelling. No septal hematomas noted. Cardiovascular-regular rate and rhythm without murmur or ectopy Lungs-clear to auscultation, chest wall stable without crepitus or subcu emphysema Abdomen-normoactive bowel sounds, soft, nontender, no rebound or rigidity, no peritoneal signs. Extremities-intact ?4, normal range of motion, normal pulses. Left wrist- patient has some mild soft tissue swelling about the wrist and dorsum of the hand. No obvious deformity. Good range of motion flexion extension at the wrist and all digits. Neurovascular intact distally. Right lower extremity- patient has a hematoma over the mid anterior chirinos. No bony deformity.] Test Results: [CT scan of the brain showed chronic emotional changes. CT facial bones showed no fractures. X-rays of the right tib-fib were negative for fracture although did show soft tissue swelling and hematoma. X-rays of the left wrist showed no fractures. CT scan of the cervical spine interpreted by myself as no acute fractures and only degenerative changes however official report pending from radiology.] Emergency Department Course and Treatment: [Patient was given tetanus booster. Wounds were cleansed and dressed.] Treatment Plan: [Patient will be given a prescription for Percocet for pain.] Disposition: [Discharged to home stable condition.] Impression: [Chemical fall Facial contusions Left wrist sprain Right lower extremity contusion] This note was generated with Dragon dictation software. It may contain incorrect words, spelling, and punctuation that were not noted in review of the chart prior to signing ED Disposition - Plan for ED Patient: Referrals: Alexi Morin Chi, MD [Primary Care Provider] -
--- NOTE | 2018-11-06 18:13 | ED.DEP ---
ED Disposition - Plan for ED Patient: Instructions: FALL, Mechanical, FACIAL CONTUSION, No Wakeup, Wrist Sprain, Hematoma Prescriptions: Oxycodone HCl/Acetaminophen [Percocet 5/325] 1 tab PO Q6H PRN PRN 3 Days #12 tab PRN Reason: Pain Prescription Printed Referrals: Alexi Morin Chi, MD [Primary Care Provider] - 3-5 Days
== END 2018-11-06 18:41 | disposition home or self-care (01) ==
PROVIDERS: Emergency Provider Emergency Medicine; Family Provider Family Medicine Geriatric Medicine; PCP Family Medicine Geriatric Medicine
DX: S00.83XA Contusion of other part of head, initial encounter (principal); S63.502A Unspecified sprain of left wrist, initial encounter; S80.11XA Contusion of right lower leg, initial encounter; W01.0XXA Fall on same level from slipping, tripping and stumbling without subsequent striking against object, initial encounter; Y93.9 Activity, unspecified; Y92.89 Other specified places as the place of occurrence of the external cause; Y99.9 Unspecified external cause status; I10 Essential (primary) hypertension; K21.9 Gastro-esophageal reflux disease without esophagitis; Z23 Encounter for immunization
CPT/HCPCS: 70450; 70486; 72125; 73110; 73590; 90471; 90715; 99283

== ENCOUNTER → 2018-11-11 10:27 | Outpatient (CLI) | payer MEDICARE, SELFPAY ==
[2018-11-06 16:45] VITALS: BMI 37.4
[2018-11-11 12:27] LABS: Basophil# 0.03 X10^3/uL; Basophil% 0.8 % (0-1); Eosinophil# 0.05 X10^3/uL; Eosinophils% 1.3 % (0-5); Hematocrit 43.7 % (37-47); Hemoglobin 13.9 g/dL (12.0-15.0); Lymphocyte % 15.8 % (19-41); Mean Corp Hgb Conc 31.8 g/dL (32-36); Mean Corpuscular Hgb 26.9 pg (27.0-32.0); Mean Corpuscular Volume 84.7 fL (81-99); Mean Platelet Vol. 9.8 fl (6.2-12.0); Monocyte# 0.38 X10^3/uL; NRBC Flagged by Analyzer 0 % (0-5); Neutrophil # 2.73 X10^3/uL (2.7-7.7); Neutrophil % 71.8 % (47-70); POSITIVE DIFFERENTIAL YES; Platelet Count 257 K/mm3 (150-450); RBC Distribution Width CV 13.9 % (11.6-14.6); RBC Distribution Width SD 43.3 fl (35.1-43.9); Red Blood Count 5.16 M/mm3 (4.2-5.4); White Blood Count 3.8 K/mm3 (4.4-11.0)
[2018-11-11 12:41] LABS: Differential Indicated SCAN CRITERIA MET
[2018-11-11 12:48] LABS: Anion Gap 10 (5-15); BUN 14 mg/dL (7-18); BUN/Creat Ratio 16.7 RATIO (10-20); Calcium,Total 9.3 mg/dL (8.5-10.1); Chloride 108 mmol/L (98-107); Creatinine, Serum 0.84 mg/dL (0.55-1.02); EST Glomerular Filtration Rate 71 mL/min (>60); Est Glom Filt Rate - Afr Amer 86 mL/min (>60); Glucose 83 mg/dL (74-106); Sodium Level 142 mmol/L (136-145)
[2018-11-13 09:50] LABS: Pathologist Review Reviewed
== END ==
PROVIDERS: Family Provider Family Medicine Geriatric Medicine; PCP Family Medicine Geriatric Medicine; Visit Provider Family Medicine Geriatric Medicine
DX: R68.83 Chills (without fever) (principal)
CPT/HCPCS: 36415; 80048; 85025; 87040

== ENCOUNTER → 2018-11-13 08:59 | Outpatient (CLI) | payer MEDICARE, SELFPAY ==
[2018-11-06 16:45] VITALS: BMI 37.4
[2018-11-13 11:28] LABS: Basophil# 0.03 X10^3/uL; Basophil% 0.6 % (0-1); Eosinophil# 0.24 X10^3/uL; Eosinophils% 4.8 % (0-5); Hematocrit 41.2 % (37-47); Hemoglobin 13.3 g/dL (12.0-15.0); Lymphocyte % 26.2 % (19-41); Mean Corp Hgb Conc 32.3 g/dL (32-36); Mean Corpuscular Hgb 27.4 pg (27.0-32.0); Mean Corpuscular Volume 84.8 fL (81-99); Mean Platelet Vol. 9.9 fl (6.2-12.0); Monocyte# 0.41 X10^3/uL; Monocyte% 8.2 % (0-10); NRBC Flagged by Analyzer 0 % (0-5); Neutrophil # 2.98 X10^3/uL (2.7-7.7); Platelet Count 252 K/mm3 (150-450); RBC Distribution Width CV 13.8 % (11.6-14.6); RBC Distribution Width SD 42.9 fl (35.1-43.9); Red Blood Count 4.86 M/mm3 (4.2-5.4)
[2018-11-13 11:48] LABS: Vitamin D,25 Hydroxy 14.4 ng/mL (29.95-100.01)
[2018-11-13 11:56] LABS: ALB/GLOB Ratio 0.8 RATIO (0.9-2.4); AST(SGOT) 26 U/L (15-37); Alanine Aminotransfer ALT/SGPT 25 U/L (13-56); Albumin, Serum 3.4 g/dL (3.2-5.0); Alkaline Phosphatase 110 U/L (45-117); Anion Gap 7 (5-15); BUN 18 mg/dL (7-18); BUN/Creat Ratio 18.1 RATIO (10-20); Calcium,Total 9.1 mg/dL (8.5-10.1); Chloride 107 mmol/L (98-107); EST Glomerular Filtration Rate 58 mL/min (>60); Est Glom Filt Rate - Afr Amer 70 mL/min (>60); Globulin 4.2 g/dL (2.2-4.2); Glucose 116 mg/dL (74-106); Potassium 3.9 mmol/L (3.5-5.1); Protein, Total 7.6 g/dL (6.4-8.2); Sodium Level 141 mmol/L (136-145); Thyroid Stim Hormone (TSH) 1.39 uIU/mL (0.358-3.74)
== END ==
PROVIDERS: Family Provider Family Medicine Geriatric Medicine; PCP Family Medicine Geriatric Medicine; Visit Provider Family Medicine Geriatric Medicine
DX: I10 Essential (primary) hypertension (principal); E55.9 Vitamin D deficiency, unspecified
CPT/HCPCS: 36415; 80053; 82306; 84443; 85025

== ENCOUNTER 2018-12-05 09:04 | Inpatient (IN) | payer MEDICARE, SELFPAY ==
[2018-11-27 11:12] VITALS: BMI 37.4
--- NOTE | 2018-12-04 20:38 | HP.PCM_ITS ---
History and Physical Date of Admission: 12/05/18 HISTORY OF PRESENT ILLNESS 73 year old woman presents with an enlarging painful hematoma right anterolateral leg that she sustained on when she fell walking her son's dog. X-ray was done which showed no fracture. She developed some redness around the hematoma and overlying skin necrosis. She was placed on Levaquin and Cleocin and has finished them. Today she denies fever. She has concerns because she has a right knee replacement. She presents at this time for further evaluation and treatment. PAST MEDICAL HISTORY Lightheadedness Generalized abdominal pain Diarrhea Fibromyalgia Obesity GERD (gastroesophageal reflux disease) Bone fracture Cataracts, bilateral History of back problems Left breast lump Rheumatoid arthritis UTI (urinary tract infection) Vitamin deficiency PAST SURGICAL HISTORY bilateral knee replacement cataract surgery hysterectomy laparoscopic cholecystectomy repair of right rotator cuff tonsillectomy and adenoidectomy bilateral breast biopsies ALLERGIES bee pollen latex morphine Penicillins hydrocodone bitartrate [From Vicodin] MEDICATIONS Lisinopril [Zestril] Esomeprazole Mag Trihydrate [Nexium] aspirin cholecalciferol (vitamin D3) dexlansoprazole doxycycline hyclate meloxicam spironolactone sucralfate FAMILY HISTORY Father - Diabetes, Heart disease, Hypertension, CVA (cerebral vascular accident) Mother - Breast cancer, Hypertension Grandmother - pancreatic cancer, Ovarian cancer Son - Anesthesia complication Brother - Asthma, Arthritis, Diabetes, Respiratory disease Grandfather - Lung cancer, CVA (cerebral vascular accident) SOCIAL HISTORY Smoking Status: Never smoker alcohol intake: never substance use type: does not use REVIEW OF SYSTEMS General - Denies fever, fatigue, and weight loss. Eyes - Has cataracts. Denies glaucoma. ENT - Denies nasal congestion and sore throat. Endocrine - Has excessive thirst and urination. Skin - Denies skin cancer. Has a traumatic hematoma right anterolateral leg with skin necrosis and some surrounding redness. Musculoskeletal - Denies joint pain, joint stiffness, weakness of muscles and joints, back pain, and arthritis. Neuro - Denies headaches. Has some lightheadedness. Cardiovascular - Denies chest pain, fatigue, and shortness of breath with exerti on. Psych - Denies anxiety and depression. Respiratory - Denies chronic cough and shortness of breath. Gastrointestinal - Denies nausea, vomiting, diarrhea, and constipation. Hematologic - Denies abnormal bruising and bleeding. Genitourinary - Denies hematuria. Has urinary frequency. Has incontinence. PHYSICAL EXAMINATION General - Alert and Oriented. HEENT - PERRL. EOMI. Throat is clear. Neck - Supple and nontender. No cervical adenopathy. Lungs - Clear to auscultation. Heart - Regular rate and rhythm. Abdomen - Soft and nondistended. Extremities - FROM. No axillary adenopathy. Radial pulses are palpable. No inguinal adenopathy. Dorsalis pedis pulses are palpable. On the right anterolateral leg is a large hematoma. Measures 12 x 10 cm. Overlying skin necrosis. Mild redness around the hematoma. Mild swelling present. No purulent drainage noted. Right knee is nontender. Neuro - CN II-XII grossly intact. Psych - Normal mood and affect. ASSESSMENT 1. Painful hematoma right anterolateral leg. 2. Skin necrosis. 3. Cellulitis right leg. 4. History of right knee replacement. PLAN X-ray reviewed. No fracture seen. She had finished her antibiotics with Levaquin and Clindamycin. Will start her on Doxycycline until the surgery to minimize the development of an abscess. Recommend operative intervention with surgical preparation right leg with incision and drainage and evacuation and excisional debridement hematoma with overlying skin necrosis. Will send tissue to Pathology for analysis to rule out carcinoma and to Microbiology for culture. A positive culture will necessitate antibiotic therapy. Will leave the wound open and start postoperative wound care with the VAC. After discharge will followup at the [facility]. When the wound stabilizes with the VAC over 2-4 weeks, will take her back to surgery for skin grafting. Because of the presence of a right knee replacement, I don't want to leave the wound open until healed with just wound care which may take up to 6 months or longer. The longer the wound is left open will increase the risk of the right knee replacement becoming infected. Surgery will be under general anesthesia with a surgical observation overnight stay in the hospital. Patient was informed of the risks and complications of the procedure including alternatives to surgery. These were discussed with the patient personally. Patient voices understanding and wishes to proceed. Some of the risks and complications were included in a form from the [employer].
[2018-12-05] VITALS (11 sets, daily range): BP systolic 103–183; BP diastolic 50–94; PULSE 54–95; RESP 14–18; TEMP 36.1–37.7; O2SAT 16–100; BMI 36.6
--- NOTE | 2018-12-05 08:15 | THRO_PTH ---
PATIENT: JIE HENRIQUEZ LOC: [facility]3 U#:[id number] AGE/SX: 73/F ROOM: MS319 RE12/05/[address]: Dr. Yandel De Dios MD : 1945 BED: 1 DIS: 12/10/2018 SPEC #: [id number] RECD: 12/05/18 09:39 STATUS: SOUT REQ #: [id number] SONJA: 12/05/18 08:[address]: Yandel De Dios DEPT: SURGICAL PATHOLOGY RECD BY: Yordy Vale ENTERED: 12/05/18 11:11 SP TYPE: THROMBUS OTHR DR: MD Alexi Ballard Chi, Chi, MD Tissues: BLOOD CLOT, NOS Procedures: Surgery Specimen Level IV HEADER OPERATION: Surgical preparation, I & D, evacuation of hematoma PRE-OP DIAGNOSIS: Painful hematoma right anterolateral leg; skin necrosis; cellulitis right leg TISSUE SUBMITTED: Hematoma right leg MICROSCOPIC DIAGNOSIS Hematoma of right leg, excision: Skin with underlying soft tissue containing organizing blood clot with associated acute and chronic inflammation, granulation and fat necrosis. AM:irish 12/06/18 MICROSCOPIC DESCRIPTION Slides are reviewed. GROSS DESCRIPTION Received in fixative is one container labeled with the patient's name and designated hematoma right leg. The specimen consists of an irregular fragment of pink-lozano skin with attached yellow fatty tissue measuring 10 x 4 cm and a depth of excision measuring 2.8 cm. Attached to this is an irregular organizing blood clot measuring 9.5 x 5 cm. Serial sections do not reveal mass lesions. Grades 9 Through 12 Teacher sections are submitted in two cassettes. / AM:irish 12/05/18 TC:5 CPT: 70980
--- NOTE | 2018-12-05 08:59 | PCM.OPRPT ---
Report of Operation Date of Procedure: 12/05/18 Pre-Operative Diagnosis: 1. Painful hematoma right anterolateral leg. 2. Skin necrosis. 3. Cellulitis right leg. 4. History of right knee replacement. Post-Operative Diagnosis: Same. Surgery/Procedure Performed:: Surgical preparation right anterolateral leg with incision and drainage and evacuation and excisional debridement infected hematoma including necrotic skin (66.5 cm2). Description of Surgical Findings:: 73 year old woman presents with an enlarging painful hematoma right anterolateral leg that she sustained on when she fell walking her son's dog. X-ray was done which showed no fracture. She developed some redness around the hematoma and overlying skin necrosis. She was placed on Levaquin and Cleocin and has finished them. Today she denies fever. She has concerns because she has a right knee replacement. Patient was informed of the risks and complications of the procedure including alternatives to surgery. These were discussed with the patient personally. Patient voices understanding and wishes to proceed. Some of the risks and complications were included in a form from the [place] [employer]. Size of defect right anterolateral leg - 9.5 x 7 x 1.5 cm. 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 Drains: None. Estimated Blood Loss (mL): 150 ml. Description of Procedure: Patient was taken to OR in supine position and was placed under general anesthesia. The right leg was prepped and draped in the usual fashion. SCD was placed on the left leg for DVT prophylaxis. Perioperative antibiotics were given intravenously. The hematoma with skin necrosis area was infiltrated with xylocaine and epinephrine. After waiting 5 minutes for the anesthetic to take effect, I proceeded with incision and drainage down into the subcutaneous tissue. A congealed hematoma was present and was evacuated. Some bleeding points were cauterized. A lot of fat necrosis was seen. No pus was seen. The hematoma did not look clinically infected at this time. The necrotic skin and fat necrosis was excised and debrided. The debridement extended to the underlying muscle and fascia. No bone was exposed. The hematoma and tissue was sent to Pathology for analysis to rule out carcinoma and to Microbiology for culture. A positive culture will necessitate antibiotic therapy. The wound was irrigated with saline. Hemostasis was obtained with electrocautery. The size of the wound after incision and drainage and excisional debridement was 9.5 x 7 x 1.5 cm or 66.5 cm2. The wound was dressed with Mepitel nonadherent dressing followed by Kerlix gauze with Betadine followed by dry Kerlix gauze and ABD pad followed by compression FELIZ wrap. Patient tolerated the procedure well and was sent to PACU in satisfactory condition. Patient will be sent upstairs for continued postop care. Will place the VAC tomorrow. After discharge she will [facility]. She will keep her right leg elevated when sitting. With the presence of a right knee replacement, I will proceed with wound care with the VAC for 2-4 weeks and then set her up for further operative debridement and skin grafting. Grafts/Implants Used: None. - Complications None. - Admit VTE Documentation VTE Present on Admission: No VTE Mechan Device Prophylaxis: SCD's VTE Pharm Prophylaxis ordered?: No Code Visit Surgery Charges CPT - 14851 ICD-10 - S80.11xA, I96, M79.604, L03.115, S81.801A, Z96.651 98514 S80.11xA, L03.115, M79.604, I96, Z96.651,
[2018-12-05] MEDS: HYDROmorphone 1 MG/ML Syringe IV ×2 (10:26→21:04)
[2018-12-05] MEDS: Lactated Ringers 1,000 ML 60 ML IV (11:52)
[2018-12-05] MEDS: oxyCODONE 5 MG Tablet 10 MG PO ×2 (11:52→19:39)
[2018-12-05] MEDS: Meloxicam 15 MG Tablet PO (11:54)
[2018-12-05] MEDS: Docusate Sodium 100 MG Capsule PO ×2 (11:54→21:04)
[2018-12-05] MEDS: Spironolactone 25 MG Tablet PO (11:54)
[2018-12-05] MEDS: Sucralfate 1 GM Tablet PO (16:46)
[2018-12-05] MEDS: Pantoprazole Sodium 40 MG Tablet PO (21:04)
[2018-12-06] MEDS: HYDROmorphone 1 MG/ML Syringe IV ×2 (03:54→08:51)
[2018-12-06] MEDS: Lactated Ringers 1,000 ML 60 ML IV ×2 (03:54→21:16)
[2018-12-06 04:00] VITALS: BP 138/65; PULSE 76; RESP 16; TEMP 37.4; O2SAT 94
[2018-12-06 06:34] LABS: Hematocrit 34.4 % (37-47); Mean Corpuscular Hgb 27.6 pg (27.0-32.0); Mean Corpuscular Volume 86.4 fL (81-99); Mean Platelet Vol. 9.8 fl (6.2-12.0); Platelet Count 204 K/mm3 (150-450); RBC Distribution Width CV 13.8 % (11.6-14.6); RBC Distribution Width SD 43.9 fl (35.1-43.9); Red Blood Count 3.98 M/mm3 (4.2-5.4)
[2018-12-06 06:55] LABS: Anion Gap 4 (5-15); BUN 26 mg/dL (7-18); BUN/Creat Ratio 32.7 RATIO (10-20); Calcium,Total 8.8 mg/dL (8.5-10.1); Chloride 104 mmol/L (98-107); Creatinine, Serum 0.79 mg/dL (0.55-1.02); EST Glomerular Filtration Rate 76 mL/min (>60); Est Glom Filt Rate - Afr Amer 92 mL/min (>60); Estimated Creatinine Clearance 38.94 ml/min; Glucose 95 mg/dL (74-106); Potassium 4.5 mmol/L (3.5-5.1); Prealbumin 12.2 mg/dL (20.0-40.0); Sodium Level 139 mmol/L (136-145)
[2018-12-06] MEDS: Sucralfate 1 GM Tablet PO ×2 (07:20→16:08)
[2018-12-06 07:42] VITALS: BP 107/47; PULSE 78; RESP 18; TEMP 37.4; O2SAT 95
[2018-12-06] MEDS: Spironolactone 25 MG Tablet PO (07:49)
[2018-12-06] MEDS: Docusate Sodium 100 MG Capsule PO ×2 (07:49→21:13)
[2018-12-06] MEDS: Meloxicam 15 MG Tablet PO (07:50)
[2018-12-06] MEDS: Pantoprazole Sodium 40 MG Tablet PO ×2 (07:50→21:13)
[2018-12-06] MEDS: Lisinopril 10 MG Tablet PO (07:50)
[2018-12-06] MEDS: diazePAM 5 MG Tablet PO (08:05)
--- NOTE | 2018-12-06 09:25 | CASEMGMT ---
Social Work Note RN updated this worker that pt's YOHANA Reardon that works on TCU would like pt to go to TCU at discharge. SW placed a call to Maricarmen with TCU and updated her on referral. Maricarmen confirms that pt was already on TCU list and will have a bed for pt next week. PT/OT will need to evaluate pt. Plan: TCU pending pre-cert Mariposa Cam PARKING LINE PAINTER, PROP MAKER
--- NOTE | 2018-12-06 10:38 | NURSING ---
wound photo: right lower leg
--- NOTE | 2018-12-06 11:09 | CASEMGMT ---
Social Work Assessment Referral Date: 12/06/2018 Date of Assessment: 12/06/2018 Reason for consult: SNF placement Informant: RN Personal Status: SW met with pt to confirm discharge plans. Pt's sister present during assessment. Pt gave this worker permission to speak to her in front of her guest. Pt is alert and orientated x4. Pt states that she lives with her in a ranch style home with two steps to enter. DME include cane and walker, no o2 at home. Pt states that she was previously independent with ADLs. Pt's PCP is Dr. Morin and preferred pharmacy is [facility]. Substance Abuse Hx: Pt denied Mental Health Hx: Pt denied SW informed pt that pt's YOHANA Reardon had called this worker this morning and is wanting pt to go TCU at discharge. Pt agreeable to TCU. SW informed pt that TCU has a bed for pt and is able to accept pt pending pre-cert. SW explained pre-cert and that pre-cert can be submitted today but pre-cert likely won't be received today and if it is not received then pt will be here through the weekend. Pt states understanding. SW placed a call to Maricarmen with TCU and updated her that pt is agreeable to TCU. Maricarmen to submit for pre-cert. Plan: TCU pending pre-cert. Mariposa Cam CHARACTER ACTOR, RECORDS ADMINISTRATOR
--- NOTE | 2018-12-06 12:53 | PCM.PN.SRG ---
Subjective: Postop #1 Patient has wound pain. VAC applied today. - Physical Exam General: Alert, Oriented x3 HEENT: PERRLA, EOMI Oral: Moist Mucosa Neck: Supple Abdomen: Soft, Non-Distended Skin: Ulcer/ Wound - right leg wound is stable. No active bleeding noted. VAC applied. Neurological: Cranial nerves II-XII grossly intact Psych/Mental Status: Normal Affect, Appropriate Vital Signs Temp Pulse Resp BP Pulse Ox 99.4 F H 78 18 107/47 L 95 12/06/18 07:42 12/06/18 07:42 12/06/18 07:42 12/06/18 07:42 12/06/18 07:42 Oxygen Flow Rate (L/min) 2 Oxygen Delivery Method Room Air Weight: 194 lb 3.636 oz Body Mass Index (BMI) 36.6 Finger Stick Blood Glucose 126 Intake and Output for Last 24 Hours 12/04/18 12/05/18 12/06/18 23:59 23:59 23:59 Intake Total 2511 / 2511 829 / 829 Output Total 625 / 625 150 / 150 Balance 1886 / 1886 679 / 679 Microbiology Past 72 Hours 12/05/18 09:15 Gram Stain - Final Biopsy - Other Wound Culture - Preliminary No growth-Final to follow Laboratory Tests Past 24 Hrs 12/06/18 12/06/18 06:10 06:10 WBC 7.0 RBC 3.98 L Hgb 11.0 L Hct 34.4 L MCV 86.4 MCH 27.6 MCHC 32.0 RDW Std Deviation 43.9 RDW Coeff of April 13.8 Plt Count 204 MPV 9.8 Sodium 139 Potassium 4.5 Chloride 104 Carbon Dioxide 31.0 Anion Gap 4 L BUN 26 H Creatinine 0.79 Estim Creat Clear Calc 38.94 Est GFR (MDRD) Af Amer 92 Est GFR (MDRD) Non-Af 76 BUN/Creatinine Ratio 32.7 H Glucose 95 Calcium 8.8 Prealbumin 12.2 L Medical Necessity - Tobacco Use Smoking Status: Never smoker Tobacco Use: Non-smoker Assessment/Plan All Active Problems (Last Updated 11/27/18 @ 10:43 by Nithya Zabala) Cellulitis of right anterior lower leg (Acute) Pain in right leg (Acute) Skin necrosis (Acute) Hematoma of right lower extremity (Acute) SHELTON (acute kidney injury) (Acute) Dehydration (Acute) Dizziness (Acute) Leukocytosis (Acute) Abdominal pain (Acute) Viral illness (Acute) Acute renal failure (Acute) Hyperglycemia (Acute) Lightheadedness (Acute) Generalized abdominal pain (Acute) Diarrhea (Acute) 1. Painful hematoma right anterolateral leg. 2. Skin necrosis. 3. Cellulitis right leg. 4. History of right knee replacement. 5. s/p surgical preparation right anterolateral leg with incision and drainage and evacuation and excisional debridement infected hematoma including necrotic skin (66.5 cm2). VAC applied today. Had some pain with it. Still needs occasional IV analgesia. She is unsteady on her feet with ambulation. Would benefit from PT to help with ambulation. She would benefit from a short stay at an ECF. Will look into TCU. With the presence of a right knee replacement, there is some risk of infection. So will keep on IV antibiotics for a couple of weeks. Operative culture negative thus far. Prealbumin was 12.2. Encourage nutritional supplementation with protein to help the healing process. ECF evaluation in process.
[2018-12-06 13:12] VITALS: BP 100/43; PULSE 75; RESP 18; TEMP 37.4; O2SAT 99
[2018-12-06 16:02] VITALS: BP 131/56; PULSE 78; RESP 18; TEMP 37.3; O2SAT 93
[2018-12-06 21:30] VITALS: BP 118/65; PULSE 85; RESP 18; TEMP 37.4; O2SAT 93
[2018-12-06] MEDS: oxyCODONE 5 MG Tablet 10 MG PO (21:36)
[2018-12-07] VITALS (7 sets, daily range): BP systolic 95–144; BP diastolic 57–72; PULSE 70–82; RESP 16–20; TEMP 36.6–37.2; O2SAT 87–95
[2018-12-07] MEDS: Sucralfate 1 GM Tablet PO ×2 (06:20→16:17)
[2018-12-07] MEDS: Meloxicam 15 MG Tablet PO (08:52)
[2018-12-07] MEDS: Docusate Sodium 100 MG Capsule PO (08:52)
[2018-12-07] MEDS: Pantoprazole Sodium 40 MG Tablet PO ×2 (08:52→20:58)
[2018-12-07] MEDS: Spironolactone 25 MG Tablet PO (08:52)
--- NOTE | 2018-12-07 12:23 | PCM.PN.SRG ---
Subjective: Postop #2 Patient is resting comfortably. She is having intermittent pain and spasm in her right leg wound from the VAC. - Physical Exam General: Alert, Oriented x3 HEENT: PERRLA, EOMI Oral: Moist Mucosa Neck: Supple Abdomen: Soft, Non-Distended Extremities: Edema - mild edema in right leg. Skin: Ulcer/ Wound - right leg wound is stable. VAC in place. Minimal drainage in the canister. Neurological: Cranial nerves II-XII grossly intact Psych/Mental Status: Normal Affect, Appropriate Vital Signs Temp Pulse Resp BP Pulse Ox 97.9 F 70 16 112/62 95 12/07/18 11:35 12/07/18 11:35 12/07/18 11:35 12/07/18 11:35 12/07/18 11:35 Oxygen Flow Rate (L/min) 2 Oxygen Delivery Method Room Air Weight: 194 lb 3.636 oz Body Mass Index (BMI) 36.6 Finger Stick Blood Glucose 126 Intake and Output for Last 24 Hours 12/05/18 12/06/18 12/07/18 23:59 23:59 23:59 Intake Total 2511 / 2511 829 / 2154 2263 / 2263 Output Total 625 / 625 150 / 150 200 / 200 Balance 1885 / 1885 / 2003 2062 / 2062 Microbiology Past 72 Hours 12/05/18 09:15 Gram Stain - Final Biopsy - Other Wound Culture - Preliminary No growth-Final to follow Anaerobic Culture - Preliminary Checking for anaerobes, further studies to follow. Medical Necessity - Tobacco Use Smoking Status: Never smoker Tobacco Use: Non-smoker Assessment/Plan All Active Problems (Last Updated 11/27/18 @ 10:43 by Nithya Zabala) Cellulitis of right anterior lower leg (Acute) Pain in right leg (Acute) Skin necrosis (Acute) Hematoma of right lower extremity (Acute) SHELTON (acute kidney injury) (Acute) Dehydration (Acute) Dizziness (Acute) Leukocytosis (Acute) Abdominal pain (Acute) Viral illness (Acute) Acute renal failure (Acute) Hyperglycemia (Acute) Lightheadedness (Acute) Generalized abdominal pain (Acute) Diarrhea (Acute) 1. Painful hematoma right anterolateral leg. 2. Skin necrosis. 3. Cellulitis right leg. 4. History of right knee replacement. 5. s/p surgical preparation right anterolateral leg with incision and drainage and evacuation and excisional debridement infected hematoma including necrotic skin (66.5 cm2). VAC in place. Minimal drainage in the canister. Will change the VAC on Sunday. She is a little more steady on her feet with ambulation. She is using the walker. PT is helping with ambulation. She would benefit from a short stay at an ECF. Will look into TCU. With the presence of a right knee replacement, there is some risk of infection. So will keep on IV antibiotics for a couple of weeks. Operative culture negative thus far. Prealbumin was 12.2. Encourage nutritional supplementation with protein to help the healing process. ECF evaluation in process.
[2018-12-07] MEDS: Lactated Ringers 1,000 ML 60 ML IV (13:52)
[2018-12-07] MEDS: 0.9% NaCl IVPB Med Flush (250 mL) 15 ML IV (20:58)
[2018-12-07] MEDS: 0.9% NaCl Peripheral Flush Adult/Peds IV (21:53)
[2018-12-08] MEDS: Acetaminophen 500 MG Tablet PO ×2 (00:50→12:24)
[2018-12-08 02:22] VITALS: BP 134/59; PULSE 84; RESP 16; TEMP 36.8; O2SAT 96
[2018-12-08] MEDS: 0.9% NaCl Peripheral Flush Adult/Peds IV ×2 (05:23→14:39)
[2018-12-08] MEDS: Sucralfate 1 GM Tablet PO ×2 (06:44→18:05)
[2018-12-08] MEDS: Pantoprazole Sodium 40 MG Tablet PO ×2 (08:36→21:42)
[2018-12-08] MEDS: Spironolactone 25 MG Tablet PO (08:36)
[2018-12-08] MEDS: Meloxicam 15 MG Tablet PO (08:36)
[2018-12-08] MEDS: Lisinopril 10 MG Tablet PO (08:36)
[2018-12-08 08:38] VITALS: BP 159/79; PULSE 73; RESP 18; TEMP 36.8; O2SAT 99
[2018-12-08 14:40] VITALS: BP 153/84; PULSE 72; RESP 18; TEMP 36.6; O2SAT 100
[2018-12-08 20:04] VITALS: BP 149/67; PULSE 78; RESP 18; TEMP 36.8; O2SAT 98
--- NOTE | 2018-12-08 23:58 | PCM.PN.SRG ---
Subjective: Postop #3 Patient is resting comfortably. - Physical Exam General: Alert, Oriented x3 HEENT: PERRLA, EOMI Oral: Moist Mucosa Neck: Supple Abdomen: Soft, Non-Distended Extremities: Edema - mild edema in right leg. Skin: Ulcer/ Wound - right leg wound is stable. VAC in place. Minimal drainage in the canister. Neurological: Cranial nerves II-XII grossly intact Psych/Mental Status: Normal Affect, Appropriate Vital Signs Temp Pulse Resp BP Pulse Ox 98.3 F 78 18 149/67 H 98 12/08/18 20:04 12/08/18 20:04 12/08/18 20:04 12/08/18 20:04 12/08/18 20:04 Oxygen Flow Rate (L/min) 2 Oxygen Delivery Method Room Air Weight: 194 lb 3.636 oz Body Mass Index (BMI) 36.6 Finger Stick Blood Glucose 126 Intake and Output for Last 24 Hours 12/06/18 12/07/18 12/08/18 23:59 23:59 23:59 Intake Total 829 / 2154 3035 / 3035 2532 / 2532 Output Total 150 / 150 200 / 200 200 / 200 Balance 2003 2835 / 2835 2332 / 2332 Microbiology Past 72 Hours 12/05/18 09:15 Gram Stain - Final Biopsy - Other Wound Culture - Final No growth aerobically. Anaerobic Culture - Preliminary Checking for anaerobes, further studies to follow. Medical Necessity - Tobacco Use Smoking Status: Never smoker Tobacco Use: Non-smoker Assessment/Plan All Active Problems (Last Updated 11/27/18 @ 10:43 by Nithya Zabala) Cellulitis of right anterior lower leg (Acute) Pain in right leg (Acute) Skin necrosis (Acute) Hematoma of right lower extremity (Acute) SHELTON (acute kidney injury) (Acute) Dehydration (Acute) Dizziness (Acute) Leukocytosis (Acute) Abdominal pain (Acute) Viral illness (Acute) Acute renal failure (Acute) Hyperglycemia (Acute) Lightheadedness (Acute) Generalized abdominal pain (Acute) Diarrhea (Acute) 1. Painful hematoma right anterolateral leg. 2. Skin necrosis. 3. Cellulitis right leg. 4. History of right knee replacement. 5. s/p surgical preparation right anterolateral leg with incision and drainage and evacuation and excisional debridement infected hematoma including necrotic skin (66.5 cm2). VAC in place. Minimal drainage in the canister. Will change the VAC tomorrow on Sunday. She is a little more steady on her feet with ambulation. She is using the walker. PT is helping with ambulation. She would benefit from a short stay at an ECF. Will look into TCU. With the presence of a right knee replacement, there is some risk of infection. So will keep on IV antibiotics for a couple of weeks. Operative culture negative thus far. Prealbumin was 12.2. Encourage nutritional supplementation with protein to help the healing process. ECF evaluation in process.
[2018-12-09 02:00] VITALS: BP 124/57; PULSE 76; RESP 16; TEMP 36.5; O2SAT 98
[2018-12-09] MEDS: oxyCODONE 5 MG Tablet 10 MG PO (03:35)
[2018-12-09 06:45] VITALS: O2SAT 97
[2018-12-09 08:00] VITALS: BP 130/77; PULSE 68; RESP 18; TEMP 36.6; O2SAT 97
[2018-12-09] MEDS: Sucralfate 1 GM Tablet PO ×2 (08:06→17:14)
[2018-12-09] MEDS: Meloxicam 15 MG Tablet PO (08:13)
[2018-12-09] MEDS: Lisinopril 10 MG Tablet PO (08:13)
[2018-12-09] MEDS: Docusate Sodium 100 MG Capsule PO (08:13)
[2018-12-09] MEDS: Spironolactone 25 MG Tablet PO (08:13)
[2018-12-09] MEDS: Pantoprazole Sodium 40 MG Tablet PO ×2 (08:13→21:04)
[2018-12-09] MEDS: 0.9% NaCl Peripheral Flush Adult/Peds IV ×3 (08:42→13:06)
[2018-12-09] MEDS: HYDROmorphone 1 MG/ML Syringe IV (08:53)
--- NOTE | 2018-12-09 10:35 | CASEMGMT ---
Addendum entered by Mariposa Cam 12/09/18 14:40: RAFA spoke with Maricarmen and updated her that this worker is leaving for the day and to call [facility] floor if pre-cert is obtained. Original Note: Social Work Note SW received call from Maricarmen with TCU stating she submitted for pre-cert and is still waiting to hear from pt's insurance. RAFA informed Maricarmen that pt is ready for discharge once pre-cert is obtained. Plan: TCU pending pre-cert Mariposa Cam AIR BREAKER OPERATOR, GRAPHICS SPECIALIST
--- NOTE | 2018-12-09 10:46 | NURSING ---
wound photo: right lower leg
[2018-12-09] MEDS: Acetaminophen 500 MG Tablet PO (13:09)
[2018-12-09 17:00] VITALS: BP 122/64; PULSE 75; RESP 16; TEMP 36.6; O2SAT 94
--- NOTE | 2018-12-09 19:31 | PCM.PN.SRG ---
Subjective: Postop #4 Patient is resting comfortably. VAC changed today. Tolerated it reasonably well with some pain. - Physical Exam General: Alert, Oriented x3 HEENT: PERRLA, EOMI Oral: Moist Mucosa Neck: Supple Abdomen: Soft, Non-Distended Extremities: Edema - mild edema right leg. Skin: Ulcer/ Wound - right leg wound is stable. VAC was changed today. No active bleeding seen. Neurological: Cranial nerves II-XII grossly intact Psych/Mental Status: Normal Affect, Appropriate Vital Signs Temp Pulse Resp BP Pulse Ox 97.8 F 75 16 122/64 H 94 12/09/18 17:00 12/09/18 17:00 12/09/18 17:00 12/09/18 17:00 12/09/18 17:00 Oxygen Flow Rate (L/min) 2 Oxygen Delivery Method Room Air Weight: 194 lb 3.636 oz Body Mass Index (BMI) 36.6 Finger Stick Blood Glucose 126 Intake and Output for Last 24 Hours 12/07/18 12/08/18 12/09/18 23:59 23:59 23:59 Intake Total 3035 / 3035 2532 / 2532 208 / 208 Output Total 200 / 200 200 / 200 Balance 2835 / 2835 2332 / 2332 208 / 208 Microbiology Past 72 Hours 12/05/18 09:15 Gram Stain - Final Biopsy - Other Wound Culture - Final No growth aerobically. Anaerobic Culture - Preliminary Checking for anaerobes, further studies to follow. Medical Necessity - Tobacco Use Smoking Status: Never smoker Tobacco Use: Non-smoker Assessment/Plan All Active Problems (Last Updated 11/27/18 @ 10:43 by Nithya Zabala) Open wound of right lower leg with complication (Acute) Cellulitis of right anterior lower leg (Acute) Pain in right leg (Acute) Skin necrosis (Acute) Hematoma of right lower extremity (Acute) SHELTON (acute kidney injury) (Acute) Dehydration (Acute) Dizziness (Acute) Leukocytosis (Acute) Abdominal pain (Acute) Viral illness (Acute) Acute renal failure (Acute) Hyperglycemia (Acute) Lightheadedness (Acute) Generalized abdominal pain (Acute) Diarrhea (Acute) 1. Painful hematoma right anterolateral leg. 2. Skin necrosis. 3. Cellulitis right leg. 4. History of right knee replacement. 5. s/p surgical preparation right anterolateral leg with incision and drainage and evacuation and excisional debridement infected hematoma including necrotic skin (66.5 cm2). 6. Open surgical hematoma wound right anterolateral leg. VAC changed today. No active bleeding seen in the wound. She tolerated it reasonably well. She is a little more steady on her feet with ambulation. She is using the walker. PT is helping with ambulation. She would benefit from a short stay at an ECF. Will look into TCU. With the presence of a right knee replacement, there is some risk of infection. So will keep on IV antibiotics for a couple of weeks. Operative culture negative thus far. Prealbumin was 12.2. Encourage nutritional supplementation with protein to help the healing process. ECF evaluation in process.
[2018-12-09 20:00] VITALS: BP 124/53; PULSE 64; RESP 16; TEMP 36.5; O2SAT 97
[2018-12-10 02:40] VITALS: BP 132/62; PULSE 70; RESP 16; TEMP 37.1; O2SAT 100
[2018-12-10] MEDS: 0.9% NaCl Peripheral Flush Adult/Peds IV (05:00)
[2018-12-10 06:08] LABS: Hematocrit 36.5 % (37-47); Hemoglobin 11.8 g/dL (12.0-15.0); Mean Corp Hgb Conc 32.3 g/dL (32-36); Mean Corpuscular Hgb 27.3 pg (27.0-32.0); Mean Corpuscular Volume 84.3 fL (81-99); Mean Platelet Vol. 10.3 fl (6.2-12.0); Platelet Count 224 K/mm3 (150-450); RBC Distribution Width SD 43.5 fl (35.1-43.9); Red Blood Count 4.33 M/mm3 (4.2-5.4); White Blood Count 7.5 K/mm3 (4.4-11.0)
[2018-12-10 06:40] LABS: Anion Gap 6 (5-15); BUN 24 mg/dL (7-18); BUN/Creat Ratio 30.8 RATIO (10-20); Calcium,Total 8.7 mg/dL (8.5-10.1); Chloride 109 mmol/L (98-107); Creatinine, Serum 0.78 mg/dL (0.55-1.02); EST Glomerular Filtration Rate 77 mL/min (>60); Est Glom Filt Rate - Afr Amer 94 mL/min (>60); Estimated Creatinine Clearance 38.94 ml/min; Glucose 91 mg/dL (74-106); Potassium 4.3 mmol/L (3.5-5.1); Sodium Level 143 mmol/L (136-145)
--- NOTE | 2018-12-10 09:34 | CASEMGMT ---
Addendum entered by Mariposa Cam 12/10/18 11:50: SW updated pt on approval to go to TCU today. Pt states understanding. Addendum entered by Mariposa Cam 12/10/18 11:13: SW placed a call to physician and left message updating on approval to go to TCU today. Original Note: Social Work Note SW received message from Maricarmen with TCU stating pre-cert has been obtained and pt is able to discharge to TCU today. Plan: TCU today Mariposa RASHEED, HEALTH AND PHYSICAL EDUCATION TEACHER
[2018-12-10 09:54] VITALS: BP 114/80; PULSE 82; RESP 18; TEMP 36.9; O2SAT 94
[2018-12-10] MEDS: Docusate Sodium 100 MG Capsule PO (09:59)
[2018-12-10] MEDS: Pantoprazole Sodium 40 MG Tablet PO (09:59)
[2018-12-10] MEDS: Sucralfate 1 GM Tablet PO (10:00)
[2018-12-10] MEDS: Meloxicam 15 MG Tablet PO (10:00)
[2018-12-10] MEDS: Lisinopril 10 MG Tablet PO (10:00)
[2018-12-10] MEDS: Spironolactone 25 MG Tablet PO (10:01)
[2018-12-10] MEDS: Acetaminophen 500 MG Tablet PO (10:11)
--- NOTE | 2018-12-10 10:40 | NURSING ---
Pt sitting up in chair. states the pain has been very tolerable to the right lower leg. pt hoping to be discharged to TCU today. wound VAC dressing in place. Good seal noted at 150mmHg low continuous suction. FELIZ wrap in place. legs elevated up in the recliner.
--- NOTE | 2018-12-10 13:20 | PCM.TXEXTCAR ---
- Diet 12/05/18 09:57 Diet: Regular Diet - Routine Orders/Code Status Routine Lab Work: CBC - qMonday., BMP - qMonday Code Status: Full Code - Wound(s) RIGHT LOWER LEG Wound Type: Open Surgical Wound Dressing Change: KCI wound VAC - Suggestions for Active Care Hours to sit in a chair: 8 Times a day to sit in chair: 4 - Therapies Weight Bearing: Full weight bearing - with assist with the walker Extremity Affected:: Right Lower Physical Therapy: Eval and Treat - ambulation and strengthening. - Allergies/Procedures Done in Hospital Allergies/Adverse Reactions: Allergies bee pollen Allergy (Verified 12/02/18 08:57) Anaphylaxis latex Allergy (Verified 12/02/18 08:57) Swelling morphine Allergy (Verified 12/02/18 08:57) Other hallucinations Penicillins Allergy (Verified 12/02/18 08:57) Hives hydrocodone bitartrate [From Vicodin] Adverse Reaction (Verified 12/02/18 08:57) Abd cramps/diarrhea Procedures: Wound Vac placement - Type of Care/Length of Stay Estimated LOS: Convalescent Care Less Than 30 days Type of Care Needed: Skilled Rehab Potential: Fair Prognosis: Fair - Additional Orders/Day of Discharge H&P will serve as current which was dated: 12/04/18 Day of Discharge: 12/10/18 - Dietary and Speech Recommendations Dietitian Recommendations/Changes: Recommend continue cardiac/low cholesterol diet. Recommend continue of Jaguar 1 packet BID - Follow Up Care Primary Care Physician: Alexi Morin Chi, MD [Primary Care Provider] - Please Follow Up With: Yandel De Dios MD When: 3-4 weeks at wound center. call [phone] for appt.
--- NOTE | 2018-12-10 13:31 | PCM.DC.SUM ---
Discharge Date and Diagnosis Date of Admission: 12/05/18 Date of Discharge: 12/10/18 - Primary Discharge Diagnosis Painful hematoma right anterolateral leg. Skin necrosis. Cellulitis right leg. Open surgical hematoma wound right anterolateral leg. - Secondary Discharge Diagnosis Chronic Problems (Last Updated 11/27/18 @ 10:43 by Nithya Zabala) History of right knee joint replacement (Chronic) Fibromyalgia (Chronic) Obesity (Chronic) Generalized osteoarthritis (Chronic) GERD (gastroesophageal reflux disease) (Chronic) Hospital Course and Treatment Imaging Results: None. Consultations 12/05/18 13:25 Consult: Onc/Wound/instructional technology instructor Routine Comment: Reason for Consult:: VAC placement Physical Therapy Operations: - - 12/05/18 - Surgical preparation right anterolateral leg with incision and drainage and evacuation and excisional debridement infected hematoma including necrotic skin (66.5 cm2). Procedures: Wound vac placement Summary of Care Provided: 73 year old woman presents with an enlarging painful hematoma right anterolateral leg that she sustained on when she fell walking her son's dog. X-ray was done which showed no fracture. She developed some redness around the hematoma and overlying skin necrosis. She was placed on Levaquin and Cleocin and has finished them. Today she denies fever. She has concerns because she has a right knee replacement. She was taken to surgery on 12/05/18 where she underwent surgical preparation right anterolateral leg with incision and drainage and evacuation and excisional debridement infected hematoma including necrotic skin (66.5 cm2). She tolerated the procedure well She was treated perioperatively with Cleocin. The operative cultures were negative. She will be treated with Cleocin for an additional 2 weeks because of the presence of a right knee replacement prosthesis. The VAC was applied the next day without difficulty. She tolerated the VAC change 3 days later on Sunday12/09/18. PT was involved with helping with ambulation with a walker. She was more steady on her feet with ambulation at the time of discharge. Prealbumin was 12.2. Encourage nutritional supplementation with protein to help the healing process. By the 5th postop day, her insurance approved discharge to TCU for further post-discharge care. Anticipate 2-4 weeks. After discharge from TCU, will followup at the [facility] in 3-4 weeks. Wrote scripts for Oxycodone for pain (40 tabs) and for Valium for spasm (30 tabs). She was discharged to TCU on the 5th postop day in stable condition. VAC shabana be changed three times per week at 150 mmHg continuous suction. When the wound is stabilized with good granulation tissue, anticipate further operative debridement and skin grafting in the next 2-4 weeks (tentative) because of the desire to close the wound expeditiously secondary to the presence of a right knee replacement prosthesis. - Physical Exam General: Alert, Oriented x3 HEENT: PERRLA, EOMI Oral: Moist Mucosa Neck: Supple Abdomen: Soft, Non-Distended Extremities: Edema - mild edema right leg. Skin: Ulcer/ Wound - right leg wound stable. VAC in place. Minimal drainage in the canister. Neurological: Cranial nerves II-XII grossly intact Psych/Mental Status: Normal Affect, Appropriate Vital Signs Temp Pulse Resp BP Pulse Ox 98.4 F 82 18 114/80 94 12/10/18 09:54 12/10/18 09:54 12/10/18 09:54 12/10/18 09:54 12/10/18 09:54 Oxygen Flow Rate (L/min) 2 Oxygen Delivery Method Room Air Weight: 194 lb 3.636 oz Body Mass Index (BMI) 36.6 Finger Stick Blood Glucose 126 Intake and Output for Last 24 Hours 12/08/18 12/09/18 12/10/18 23:59 23:59 23:59 Intake Total 2532 / 2532 208 / 685 606 / 606 Output Total 200 / 200 Balance 2332 / 2332 208 / 685 606 / 606 Microbiology Past 72 Hours 12/05/18 09:15 Gram Stain - Final Biopsy - Other Wound Culture - Final No growth aerobically. Anaerobic Culture - Preliminary Checking for anaerobes, further studies to follow. Laboratory Tests Past 24 Hrs 12/10/18 12/10/18 05:40 05:40 WBC 7.5 RBC 4.33 Hgb 11.8 L Hct 36.5 L MCV 84.3 MCH 27.3 MCHC 32.3 RDW Std Deviation 43.5 RDW Coeff of April 14.0 Plt Count 224 MPV 10.3 Sodium 143 Potassium 4.3 Chloride 109 H Carbon Dioxide 28.0 Anion Gap 6 BUN 24 H Creatinine 0.78 Estim Creat Clear Calc 38.94 Est GFR (MDRD) Af Amer 94 Est GFR (MDRD) Non-Af 77 BUN/Creatinine Ratio 30.8 H Glucose 91 Calcium 8.7 Discharge Diet: No Restrictions, - - encourage nutritional supplementation with protein to help the healing process. Discharge Activity: May Shower - on the days the vac is changed., Use Walker - when ambulating with assist., - - elevate right leg when sitting. May shower in (days): 2 - may shower on the days the vac is changed. May resume sexual activity in: No Restrictions Weight Bearing Status: Weight bearing as tolerated Keep extremity elevated above heart level: Right Leg Call your doctor if your incision/area has: Continuous Slow Oozing, Sudden Increased Bleeding, Increased Pain/ Swelling, Increased Redness, Foul Smelling Discharge, Swelling at the incision site Call your doctor if you observe: Fever of 101 or Higher, Coldness, Increased Pain, Shortness of breath, Chest pain, Calf discomfort, Uncontrolled pain Suture Line Care: - - vac changes three times per week at 150 mmHg continuous suction. Change Dressing in (Days):: 2 - vac dressing three times per week. Cleanse incision/area with: Soap & Water - may cleanse the wound with soap and water at the time of the vac dressing changes., - - may shower on the days the vac is changed. Home Medications: Medications to take at Discharge Lisinopril [Zestril] 10 mg PO DAILY 02/07/16 Esomeprazole Mag Trihydrate [Nexium] 40 mg PO BID 03/09/16 cholecalciferol (vitamin D3) 1,000 unit capsule 1,000 unit PO DAILY 11/27/18 dexlansoprazole 60 mg capsule,biphase delayed release 60 mg PO DAILY 11/27/18 meloxicam 15 mg tablet 15 mg PO DAILY 11/27/18 spironolactone 25 mg tablet 25 mg PO DAILY 11/27/18 sucralfate 1 gram tablet 1 g PO BID 11/27/18 Acetaminophen [Tylenol] 500 mg PO Q4H PRN PRN tablet 12/10/18 Clindamycin in 0.9 % Sod Chlor [Clindamycin 600 mg/50 ml-Ns] 600 mg IV .Q8 HOURS 14 Days piggyback 12/10/18 Diazepam [Valium] 5 mg PO 4X/DAY PRN PRN #30 tab 12/10/18 Docusate Sodium [Colace] 100 mg PO BID capsule 12/10/18 Oxycodone [Oxyir] 10 mg PO Q4H PRN PRN 7 Days #40 tab 12/10/18 proMETHazine tablet [Phenergan tablet] 25 mg PO Q4H PRN PRN tablet 12/10/18 Following Prescrptions Were Given to Patient: Clindamycin in 0.9 % Sod Chlor [Clindamycin 600 mg/50 ml-Ns] 600 mg IV .Q8 HOURS 14 Days piggyback Prescription Printed Oxycodone [Oxyir] 10 mg PO Q4H PRN PRN 7 Days #40 tab PRN Reason: Severe Pain (-01/30) Prescription Printed Diazepam [Valium] 5 mg PO 4X/DAY PRN PRN #30 tab PRN Reason: Spasms Prescription Printed Primary Care Physician: Alexi Morin Chi, MD [Primary Care Provider] - Please Follow Up With: Yandel De Dios MD When: 3-4 weeks at wound center. call [phone] for appt. Disposition: Senior Care facility Minutes spent on discharge:: 35 Patient Condition:: Stable Medical Necessity - Tobacco Use Smoking Status: Never smoker Tobacco Use: Non-smoker Meaningful Use Info Meaningful Use Diagnoses (Choose all that apply): None applicable
[2018-12-10 14:20] VITALS: BP 132/73; PULSE 76; RESP 18; TEMP 37.1; O2SAT 100
== END 2018-12-10 14:30 | disposition skilled nursing facility (03) | DRG 571 ==
LOC: SDC 09:30 → MS3 14:53
PROVIDERS: Admitting Provider Surgery; Family Provider Family Medicine Geriatric Medicine; PCP Family Medicine Geriatric Medicine; Referring Provider Surgery; Visit Provider Surgery
PROC: 0JCN0ZZ Extirpation of Matter from Right Lower Leg Subcutaneous Tissue and Fascia, Open Approach (ICD-10-PCS; principal; 2018-12-05 08:05)
DX: S80.11XA Contusion of right lower leg, initial encounter (principal); I96 Gangrene, not elsewhere classified; L03.115 Cellulitis of right lower limb; W19.XXXA Unspecified fall, initial encounter; Y93.K1 Activity, walking an animal; M79.7 Fibromyalgia; E66.9 Obesity, unspecified; M15.9 Polyosteoarthritis, unspecified; K21.9 Gastro-esophageal reflux disease without esophagitis; Z68.36 Body mass index [BMI] 36.0-36.9, adult; Z96.651 Presence of right artificial knee joint
CPT/HCPCS: 36415; 80048; 84134; 85027; 87070; 87075; 87102; 87205; 87206; 88304; 88305; 97110; 97116; 97163; 97166; 97530; 97802; J7050; J7120; A4216; J2405

== ENCOUNTER 2018-12-10 14:40 | Inpatient (IN) | payer MEDICARE, SELFPAY ==
[2018-12-05 10:09] VITALS: BMI 36.6
[2018-12-10 14:58] VITALS: BP 141/76; PULSE 82; RESP 18; TEMP 36.6; O2SAT 93
[2018-12-10 15:20] VITALS: BMI 37.0
[2018-12-10 15:25] VITALS: BMI 37.0
[2018-12-10] MEDS: Acetaminophen 500 MG Tablet PO (16:18)
[2018-12-10] MEDS: Sucralfate 1 GM Tablet PO (17:17)
--- NOTE | 2018-12-10 20:52 | HP.PCM_ITS ---
Problem List (1) Hypertension Status: Chronic (2) Vitamin D deficiency Status: Chronic (3) Osteoarthritis Status: Chronic (4) Edema Status: Chronic (5) Hematoma of right lower extremity Status: Acute (6) GERD (gastroesophageal reflux disease) Status: Chronic History of Present Illness Date of Admission: 12/10/18 Chief Complaint: Here for rehabilitation, strengthening, wound care, prior to discharge home with spouse. The patient is a 73 year old Female with below past medical history with followin12/05/2018 Admit to Hospital, patient had infected right lower extremity hematoma which was treated with Levaquin, Clindamycin. Patient concerned with presence of right total knee replacement prosthesis. 12/05/2018 Dr. De Dios performed surgical preparation right anterolateral leg with incision and drainage, evacuation, excisional debridement infected hematoma including necrotic skin. Wound vac applied the next day. Patient treated with Clindamycin, operative cultures were negative. Clindamycin for 2 ore weeks due to right total knee arthroplasty. Nutritional supplement with protein to aid in healing. Wound vac changed 3 times per week. Anticipate further operative debridement and skin grafting in the next 2 to 4 weeks to expedite wound closure with presence of right total knee replacement prosthesis. 12/10/2018 Admit to TCU with debility, here for rehabilitation, strengthening, wound care, prior to discharge home with spouse. Past Medical History Past Medical History (Chronic Problems): Chronic Problems (Last Updated 11/27/18 @ 10:43 by Nithya Zabala) Hypertension (Chronic) Vitamin D deficiency (Chronic) Osteoarthritis (Chronic) Edema (Chronic) History of right knee joint replacement (Chronic) Fibromyalgia (Chronic) Obesity (Chronic) Generalized osteoarthritis (Chronic) GERD (gastroesophageal reflux disease) (Chronic) Medical History: Medical History (Last Updated 11/27/18 @ 10:43 by Nithya Zabala) Lightheadedness (Acute) R42 Generalized abdominal pain (Acute) R10.84 Diarrhea (Acute) R19.7 Fibromyalgia (Chronic) Obesity (Chronic) E66.9 Generalized osteoarthritis (Chronic) M15.9 GERD (gastroesophageal reflux disease) (Chronic) K21.9 Arthritis M19.90 Bone fracture T14.8XXA Breast lump in female N63.0 Cataracts, bilateral H26.9 History of back problems Left breast lump N63.20 Rheumatoid arthritis M06.9 UTI (urinary tract infection) N39.0 Vitamin deficiency E56.9 Allergies bee pollen Allergy (Verified 12/02/18 08:57) Anaphylaxis latex Allergy (Verified 12/02/18 08:57) Swelling morphine Allergy (Verified 12/02/18 08:57) Other hallucinations Penicillins Allergy (Verified 12/02/18 08:57) Hives hydrocodone bitartrate [From Vicodin] Adverse Reaction (Verified 12/02/18 08:57) Abd cramps/diarrhea Home Medications: Ambulatory Orders Medication Instructions Recorded Lisinopril [Zestril] 10 mg PO DAILY 02/07/16 Esomeprazole Mag Trihydrate 40 mg PO BID 03/09/16 [Nexium] cholecalciferol (vitamin D3) 1,000 1,000 unit PO DAILY 11/27/18 unit capsule dexlansoprazole 60 mg 60 mg PO DAILY 11/27/18 capsule,biphase delayed release meloxicam 15 mg tablet 15 mg PO DAILY 11/27/18 spironolactone 25 mg tablet 25 mg PO DAILY 11/27/18 sucralfate 1 gram tablet 1 g PO BID 11/27/18 Acetaminophen [Tylenol] 500 mg PO Q4H PRN PRN 12/10/18 Clindamycin in 0.9 % Sod Chlor 600 mg IV .Q8 HOURS 12/10/18 [Clindamycin 600 mg/50 ml-Ns] Diazepam [Valium] 5 mg PO 4X/DAY PRN PRN #30 tab 12/10/18 Docusate Sodium [Colace] 100 mg PO BID 12/10/18 Oxycodone [Oxyir] 10 mg PO Q4H PRN PRN 7 Days #40 tab 12/10/18 proMETHazine tablet [Phenergan 25 mg PO Q4H PRN PRN tab 12/10/18 tablet] Surgical History: Surgical History (Last Updated 11/27/18 @ 10:46 by Nithya Zabala) History of bilateral knee replacement Z96.653 History of cataract surgery Z98.49 History of hysterectomy Z90.710 History of laparoscopic cholecystectomy Z90.49 History of left breast biopsy Onset Date: ~11/2017 Z98.890 History of repair of right rotator cuff Z98.890 History of tonsillectomy and adenoidectomy Z98.890 history bilateral breast biopsies Surgical History: adenoidectomy, appendectomy, cataract, cholecystectomy - Laparoscopic., hysterectomy, total knee arthroplasty - Bilateral., tonsillectomy, - - Breast biopsies for benign cysts, cardiac catheterization, right rotator cuff repair. Psychiatric History: No pertinent psych hx SUPERVISING NURSE History: No pertinent SUPERVISING NURSE history Lives: Spouse/ Significant Other Smoking Status: Never smoker Tobacco Use: Non-smoker Alcohol: None Drugs: None - *Family History Maternal Family History: Family History (Last Updated 11/27/18 @ 10:51 by Nithya Zabala) Father Diabetes Heart disease Hypertension CVA (cerebral vascular accident) Mother Breast cancer Hypertension Grandmother Cancer Ovarian cancer Son Anesthesia complication Brother Asthma Arthritis Diabetes Respiratory disease Grandfather Lung cancer CVA (cerebral vascular accident) History Items: Cancer - Breast cancer Paternal Family History: Family History (Last Updated 11/27/18 @ 10:51 by Nithya Zabala) Father Diabetes Heart disease Hypertension CVA (cerebral vascular accident) Mother Breast cancer Hypertension Grandmother Cancer Ovarian cancer Son Anesthesia complication Brother Asthma Arthritis Diabetes Respiratory disease Grandfather Lung cancer CVA (cerebral vascular accident) History Items: Diabetes, - - Parkinson's disease Review of Systems Constitutional: Denies: Chills, Fever, Weight Change HEENT: Denies: Head Aches, Sinus Congestion, Sinus Drainage Cardiovascular: Denies: Chest Pain, Palpitations Respiratory: Denies: Cough, Shortness of breath at rest, Sputum production Gastrointestinal: Denies: Abdominal Pain, Nausea, Vomiting Genitourinary: Denies: Dysuria Musculoskeletal: Reports: Leg Pain - Right.. Denies: Joint Pain, Joint Tenderness Skin: Denies: Rash, Wounds Neurological: Denies: Numbness, Tingling, Focal weakness Psychiatric: Denies: Anxiety, Depression, Homicidal Ideations, Suicidal Ideations Hematologic/ Lymphatic: Denies: Easy Bruising, Easy Bleeding VTE Information - Inpt Only VTE Present on Admission: No VTE Mechan Device Prophylaxis: Knee High DELIA Hose VTE Pharm Prophylaxis ordered?: Yes - Physical Exam General: Alert, Oriented x3, Cooperative HEENT: Atraumatic, PERRLA, EOMI, Normocephalic Neck: Supple, No JVD, Negative Carotid Bruits Lungs: Clear to auscultation, Normal air movement Cardiovascular: Regular rate, No murmurs Abdomen: Bowel Sounds Present, Soft, Non Tender Extremities: No edema, Capillary Refill Less than 3 Seconds, - - Right lower extremity, wound vac, FELIZ wrap. Skin: No rashes, No breakdown Musculoskeletal: No Tenderness to Palpation of Joints or Extremities Neurological: Cranial nerves II-XII grossly intact Psych/Mental Status: Normal Affect, Appropriate Vital Signs Temp Pulse Resp BP Pulse Ox 97.9 F 82 18 141/76 H 93 12/10/18 14:58 12/10/18 14:58 12/10/18 14:58 12/10/18 14:58 12/10/18 14:58 Oxygen Delivery Method Room Air Weight: 88.9 kg Body Mass Index (BMI) 37.0 Finger Stick Blood Glucose 126 Intake and Output for Last 24 Hours 12/08/18 12/09/18 12/10/18 23:59 23:59 23:59 Intake Total 120 / 120 Balance 120 / 120 Assessment/Plan All Active Problems (Last Updated 11/27/18 @ 10:43 by Nithya Zabala) Open wound of right lower leg with complication (Acute) Cellulitis of right anterior lower leg (Acute) Pain in right leg (Acute) Skin necrosis (Acute) Hematoma of right lower extremity (Acute) SHELTON (acute kidney injury) (Acute) Dehydration (Acute) Dizziness (Acute) Leukocytosis (Acute) Abdominal pain (Acute) Viral illness (Acute) Acute renal failure (Acute) Hyperglycemia (Acute) Lightheadedness (Acute) Generalized abdominal pain (Acute) Diarrhea (Acute) 73 year old female with below past medical history hospitalized with painful hematoma right lower extremity, underwent incision, drainage, evacuation, excisional debridement with wound vac placement 12/05/[address] De Dios, admitted to TCU with debility, here for rehabilitation, strengthening, wound care, intravenous antibiotics, prior to discharge home with spouse. Will need further surgery in the next 2 to 4 weeks. * Debility - PT/OT. * Pain - Tylenol 1000MG Q6H PRN mild pain, Tramadol 50MG Q6H PRN moderate pain, Oxycodone 10MG Q4H PRN severe pain. * Bowel - Miralax 17GM daily, Senna/colace 2 tablets BID, Dulcolax 10MG daily PRN. * Pneumonia vaccination - Administer Prevnar 13 and/or Pneumovax 23 as necessary. * DVT prophylaxis - Lovenox 40MG SC daily. * Vitamin D deficiency - D3 1000IU daily. * Infected hematoma right lower extremity status post debridement with wound vac - Clindamycin 600MG IV Q8H thru 12/24/2018, Wound vac changed 3 times per week, further surgery with Dr. De Dios. * Muscle spasm - Diazepam 5MG 4x/day PRN. * Hypertension - Lisinopril 10MG daily. * Osteoarthritis - Mobic 15MG daily. * Nutrition - Jaguar 1 packet BID. * GERD - Pantoprazole 40MG BID, Carafate 1GM BID. * Nausea - Phenergan 25MG Q4H PRN. * Edema - Aldactone 25MG daily.
[2018-12-10] MEDS: 0.9% NaCl IVPB Med Flush (250 mL) 100 ML IV (21:48)
[2018-12-10] MEDS: 0.9% NaCl Peripheral Flush Adult/Peds IV (21:51)
[2018-12-10] MEDS: oxyCODONE 5 MG Tablet 10 MG PO (23:42)
[2018-12-11] MEDS: traMADol 50 MG Tablet PO (02:09)
[2018-12-11 05:42] LABS: Absolute Lymphocyte Count 1.81 X10^3/uL (0.83-4.51); Absolute Neutrophil Count 4.6 X10^3/uL (2.0-7.7); Basophil# 0.05 X10^3/uL; Basophil% 0.7 % (0-1); Eosinophil# 0.49 X10^3/uL; Eosinophils% 6.4 % (0-5); Hematocrit 35.5 % (37-47); Hemoglobin 11.1 g/dL (12.0-15.0); Lymphocyte # 1.81 X10^3/ul (4.0); Lymphocyte % 23.7 % (19-41); Mean Corp Hgb Conc 31.3 g/dL (32-36); Mean Corpuscular Hgb 26.6 pg (27.0-32.0); Mean Corpuscular Volume 84.9 fL (81-99); Mean Platelet Vol. 10.1 fl (6.2-12.0); Monocyte# 0.65 X10^3/uL; Monocyte% 8.5 % (0-10); NRBC Flagged by Analyzer 0 % (0-5); Neutrophil # 4.59 X10^3/uL (2.7-7.7); Neutrophil % 60.2 % (47-70); Platelet Count 241 K/mm3 (150-450); RBC Distribution Width CV 14.4 % (11.6-14.6); RBC Distribution Width SD 44.4 fl (35.1-43.9); Red Blood Count 4.18 M/mm3 (4.2-5.4); White Blood Count 7.6 K/mm3 (4.4-11.0)
[2018-12-11 05:57] LABS: Anion Gap 5 (5-15); BUN 28 mg/dL (7-18); BUN/Creat Ratio 35.9 RATIO (10-20); Calcium,Total 8.4 mg/dL (8.5-10.1); Chloride 109 mmol/L (98-107); Creatinine, Serum 0.78 mg/dL (0.55-1.02); EST Glomerular Filtration Rate 77 mL/min (>60); Est Glom Filt Rate - Afr Amer 93 mL/min (>60); Estimated Creatinine Clearance 38.94 ml/min; Glucose 80 mg/dL (74-106); Potassium 4.1 mmol/L (3.5-5.1); Sodium Level 142 mmol/L (136-145)
[2018-12-11] MEDS: Pantoprazole Sodium 40 MG Tablet PO ×2 (06:09→16:46)
[2018-12-11] MEDS: Enoxaparin 40 MG/0.4 ML Syringe SC (06:09)
[2018-12-11] MEDS: Meloxicam 15 MG Tablet PO (06:09)
--- NOTE | 2018-12-11 06:56 | NURSING ---
Small amount of bright red blood noted in toilet. Pt stating to have hemorrhoids. One small external hemorrhoids noted. Pt denies any discomfort and states she doesn't use anything at home for them.
[2018-12-11] MEDS: Spironolactone 25 MG Tablet PO (09:32)
[2018-12-11] MEDS: Lisinopril 10 MG Tablet PO (09:32)
[2018-12-11] MEDS: Sucralfate 1 GM Tablet PO ×2 (09:33→16:44)
[2018-12-11] MEDS: Tuberculin,Purif.prot.deriv. 50 TU/ML Vial 5 ML ID (11:05)
--- NOTE | 2018-12-11 11:13 | CASEMGMT ---
See assessment for full details. SW spoke w/pt, her goal is to return home w/spouse, and possible home health if needed. Pt reports her son and daughter in law live two doors down and are helpful, as is her son Morris who lives in [place]. She also has supportive siblings. Some are out of town but all seem to be available to speak w/when needed. She explains she speaks w/her youngest sister Danika, who lives in [place], daily. Pt explained will need a second surgery in 2-3 weeks for a skin graft. It's uncertain at this time if pt will still be in TCU at that time or will be home. If pt is still in TCU, it will need to be determined if she needs to return to TCU after that surgery, and a new insurance precert will be needed at that time. SW spoke w/pt also about depression and anxiety. Pt explains that she had some depression and anxiety regarding her brother, who last year. She explained that he wanted to come live w/her when he was very ill, and she was not able to care fo him. She explained that though she knew how ill he was and that she could not care for him, her brother really pushed to stay w/her. She verbalized how difficult this was for her at the time, and she lost weight. She reports to have supportive siblings(there are three other brothers and a sister), and speaking with them has been very helpful. She explains they are all supportive of one another. She did not have any counseling at the time and is doing okay now, does not feel she is struggling any longer w/depression or anxiety. She is not interested in counseling at present. SW will continue to follow for discharge needs. SERENA Wall
[2018-12-11] MEDS: oxyCODONE 5 MG Tablet 10 MG PO (13:07)
[2018-12-11] MEDS: 0.9% NaCl Peripheral Flush Adult/Peds IV ×2 (14:18→21:06)
--- NOTE | 2018-12-11 14:23 | CHAPLAIN ---
Type of Pastoral Visit _x__ Initial Visit ___ Follow-up Visit ___ On-call Visit ___ General Patient Visit ___ Spiritual Assessment ___ Family Conference ___ Bereavement ___ Rapid Response ___ Code Blue ___ Other (describe below) Pastoral Care Referral From _x__ Patient _x__ Family ___ Nurse ___ Physician ___ Crutching Contractor ___ Cork Floor Installer ___ Other (describe below) Sacrament/Intervention _x__ Active listening ___ Anointing ___ Jew ___ Bereavement ___ Communion _x__ Marivel exploration ___ _x__ Life review _x__ Prayer ___ Reconciliation ___ Sacrament of Sick _x__ Supportive presence ___ Wedding ___ Other (describe below) Pastoral Comments
--- NOTE | 2018-12-11 14:30 | NURSING ---
wound photo: right lower leg
[2018-12-11 15:27] VITALS: BP 115/65; PULSE 77; RESP 16; TEMP 37.2; O2SAT 94
[2018-12-11] MEDS: 0.9% Normal Saline 1,000 ML 999 ML IV (18:24)
--- NOTE | 2018-12-11 18:24 | NURSING ---
New order to d/c lisinopril and aldactone, IV bolus 1L x1 now.
[2018-12-11] MEDS: 0.9% NaCl IVPB Med Flush (250 mL) 100 ML IV (21:13)
[2018-12-12] MEDS: Pantoprazole Sodium 40 MG Tablet PO ×2 (05:14→16:58)
[2018-12-12] MEDS: Meloxicam 15 MG Tablet PO (05:14)
[2018-12-12] MEDS: Enoxaparin 40 MG/0.4 ML Syringe SC (05:15)
[2018-12-12] MEDS: 0.9% NaCl Peripheral Flush Adult/Peds IV ×3 (05:20→21:14)
[2018-12-12] MEDS: Sucralfate 1 GM Tablet PO ×2 (08:28→15:59)
--- NOTE | 2018-12-12 11:29 | NURSING ---
Pt resting in bed with eyes closed. no discomfort noted. in to asses wound VAC. good seal noted at 150mmHg low continuous suction.
--- NOTE | 2018-12-12 13:09 | CASEMGMT ---
Insurance: Continued stay review sent to [facility] through Secure email. Auth # [id number]. Continued stay approved. Next update due 12/16/18.
--- NOTE | 2018-12-12 13:13 | PCM.PN.RX ---
<PatisonyLeatha M - Last Filed: 12/12/18 13:13> Progress Note - Pharmacy Subjective: TCU Admission Objective: Allergies bee pollen Allergy (Verified 12/02/18 08:57) Anaphylaxis latex Allergy (Verified 12/02/18 08:57) Swelling morphine Allergy (Verified 12/02/18 08:57) Other hallucinations Penicillins Allergy (Verified 12/02/18 08:57) Hives hydrocodone bitartrate [From Vicodin] Adverse Reaction (Verified 12/02/18 08:57) Abd cramps/diarrhea Current Medications Generic Name Dose Route Start Last Admin Trade Name Freq PRN Reason Stop Dose Admin Acetaminophen 1,000 mg 12/10/18 21:12 Tylenol PO Q6H PRN PRN MILD PAIN (1-3/10) Bisacodyl 10 mg 12/10/18 21:11 Dulcolax PO DAILY PRN PRN Constipation Cholecalciferol 1,000 unit 12/11/18 08:00 12/12/18 08:28 Vitamin D PO 1,000 unit DAILY@0800 ANTONY Administration Diazepam 5 mg 12/10/18 15:38 Valium PO 4X/DAY PRN PRN SPASMS Enoxaparin Sodium 40 mg 12/11/18 06:00 12/12/18 05:15 Lovenox SC 40 mg DAILY@0600 ANTONY Administration Clindamycin Phosphate 600 mg/ 54 mls @ 100 mls/hr 12/10/18 22:00 12/12/18 05:53 Dextrose IV 12/24/18 23:59 Infused Q8 ANTONY Infusion Sodium Chloride 250 mls @ 15 mls/hr 12/10/18 20:20 12/12/18 06:11 IV 0 mls/hr .[id number] PRN Infusion SALINE FLUSH Meloxicam 15 mg 12/11/18 06:00 12/12/18 05:14 Mobic PO 15 mg DAILY ANTONY Administration Nutritional Formula 1 packet 12/10/18 17:00 12/12/18 08:28 Jaguar - [place] Flavor PO 1 packet BIDCM ANTONY Administration Oxycodone HCl 10 mg 12/10/18 15:38 12/11/18 13:07 Oxyir PO 10 mg Q4H PRN PRN Administration SEVERE PAIN (6-10/10) Pantoprazole Sodium 40 mg 12/11/18 06:00 12/12/18 05:14 Protonix PO 40 mg BID ANTONY Administration Polyethylene Glycol 17 gm 12/11/18 06:00 12/12/18 05:15 Miralax PO Not Given DAILY ANTONY Promethazine HCl 25 mg 12/10/18 15:38 Phenergan Tablet PO Q4H PRN PRN NAUSEA/VOMITING Senna/Docusate Sodium 2 tablet 12/11/18 06:00 12/12/18 05:15 Senokot-S, Agata-Colace PO Not Given BID ANTONY Sodium Chloride 10 - 40 ml 12/10/18 20:20 12/12/18 05:20 IV 20 ml UD PRN Administration SALINE FLUSH Sucralfate 1 gm 12/10/18 16:15 12/12/18 08:28 Carafate PO 1 gm 0700,1600 ANTONY Administration Tramadol HCl 50 mg 12/10/18 21:10 12/11/18 02:09 Ultram PO 50 mg Q6H PRN PRN Administration MODERATE PAIN (4-5/10) Tuberculin PPD 5 tu 12/18/18 10:00 Tubersol, Aplisol, Ppd ID 12/18/18 10:01 X1 ONE Problem List (Last Updated 11/27/18 @ 10:43 by Nithya Zabala) Hypertension (Chronic) Vitamin D deficiency (Chronic) Osteoarthritis (Chronic) Edema (Chronic) Vital Signs Temp Pulse Resp BP Pulse Ox 98.9 F 77 16 115/65 94 12/11/18 15:27 12/11/18 15:27 12/11/18 15:27 12/11/18 15:27 12/11/18 15:27 Oxygen Delivery Method Room Air Weight: 88.9 kg Body Mass Index (BMI) 37.0 Finger Stick Blood Glucose 126 Sodium 142 mmol/L (136-145) 12/11/18 05:10 Potassium 4.1 mmol/L (3.5-5.1) 12/11/18 05:10 Chloride 109 mmol/L (98-107) H 12/11/18 05:10 Carbon Dioxide 28.0 mmol/L (21.0-32.0) 12/11/18 05:10 5 (5-15) 12/11/18 05:10 BUN 28 mg/dL (7-18) H 12/11/18 05:10 0.78 mg/dL (0.55-1.02) 12/11/18 05:10 Est GFR (MDRD) Af Amer 93 mL/min (>60) 12/11/18 05:10 Est GFR (MDRD) Non-Af 77 mL/min (>60) 12/11/18 05:10 35.9 RATIO (10-20) H 12/11/18 05:10 Glucose 80 mg/dL (74-106) 12/11/18 05:10 Assessment/Plan: 1. Pain: Tylenol 1000mg IV Q6h PRN Mild pain (1-3/10), Meloxicam 15mg PO daily, Oxyir 10mg PO Q4h PRN severe pain (6-10/10), Tramadol 50mg PO Q6h PRN moderate pain (4-5/10). Mobic on Beer's list due to risk of GI bleed; however patient also currently on Protonix as GI Prophylaxis. Please continue to monitor for signs and symptoms of increased/decreased pain, S/S of bleeding with Mobic use. 2. DVT Prophylaxis: Lovenox 40mg SC daily. Please continue to monitor for signs and symptoms of bleeding, renal function. 3. Infected hematoma of RLE S/P debridement: Clindamycin 600mg IV Q8h thru 12/24/18. Please continue to monitor for signs and symptoms of infection progression, temp, WBC, and diarrhea. 4. Muscle spasms: Valium 5mg PO 4x/day PRN spasms. GDR not clinically appropriate at this time based on indication for use. Beer's List medication- pt may be more sensitive to medication, please monitor for signs/symptoms of delirium, falls/fractures, and cognitive impairment. 5. GERD: Protonix 40mg PO BID, sucralfate 1g PO BIDAC. Please continue to monitor for increased/decreased symptoms of GERD. 6. Nausea: Promethazine 25mg PO Q4h PRN nausea/vomiting. Please continue to monitor for signs and symptoms of nausea/vomiting. 7. Vitamin D deficiency: Cholecalciferol 1000 units PO daily. Last Vitamin D level checked 11/2018. Please continue to monitor and draw labs annually or sooner if clinically indicated. Psychotropic Medications: Unnecessary Medications: Bowel Regimen: *Bisacodyl 10mg PO Daily PRN, Miralax 17g PO Daily, Senna/docusate 2T PO BID. Per MAR, pt has been refusing scheduled medications. If patient continues to refuse scheduled dosing, please consider changing Miralax and Senna/Docusate to PRN. Please continue to monitor for signs and symptoms of diarrhea/ constipation. Date of Note:: 12/12/18 - Provider Comments Provider responsibility: Provider responsible to enter orders to implement recommendations <Alexi Morin Chi - Last Filed: 12/12/18 21:44> Progress Note - Pharmacy Subjective: [] Objective: Allergies bee pollen Allergy (Verified 12/02/18 08:57) Anaphylaxis latex Allergy (Verified 12/02/18 08:57) Swelling morphine Allergy (Verified 12/02/18 08:57) Other hallucinations Penicillins Allergy (Verified 12/02/18 08:57) Hives hydrocodone bitartrate [From Vicodin] Adverse Reaction (Verified 12/02/18 08:57) Abd cramps/diarrhea Current Medications Generic Name Dose Route Start Last Admin Trade Name Freq PRN Reason Stop Dose Admin Acetaminophen 1,000 mg 12/10/18 21:12 12/12/18 15:08 Tylenol PO 1,000 mg Q6H PRN PRN Administration MILD PAIN (1-3/10) Bisacodyl 10 mg 12/10/18 21:11 Dulcolax PO DAILY PRN PRN Constipation Cholecalciferol 1,000 unit 12/11/18 08:00 12/12/18 08:28 Vitamin D PO 1,000 unit DAILY@0800 ANTONY Administration Diazepam 5 mg 12/10/18 15:38 Valium PO 4X/DAY PRN PRN SPASMS Enoxaparin Sodium 40 mg 12/11/18 06:00 12/12/18 05:15 Lovenox SC 40 mg DAILY@0600 ANTONY Administration Clindamycin Phosphate 600 mg/ 54 mls @ 100 mls/hr 12/10/18 22:00 12/12/18 21:16 Dextrose IV 12/24/18 23:59 100 mls/hr Q8 ANTONY Administration Sodium Chloride 250 mls @ 15 mls/hr 12/10/18 20:20 12/12/18 21:15 IV 0 mls/hr .[id number] PRN Infusion SALINE FLUSH Meloxicam 15 mg 12/11/18 06:00 12/12/18 05:14 Mobic PO 15 mg DAILY ANTONY Administration Nutritional Formula 1 packet 12/10/18 17:00 12/12/18 16:58 Jaguar - [place] Flavor PO 1 packet BIDCM ANTONY Administration Oxycodone HCl 10 mg 12/10/18 15:38 12/11/18 13:07 Oxyir PO 10 mg Q4H PRN PRN Administration SEVERE PAIN (6-10/10) Pantoprazole Sodium 40 mg 12/11/18 06:00 12/12/18 16:58 Protonix PO 40 mg BID ANTONY Administration Polyethylene Glycol 17 gm 12/11/18 06:00 12/12/18 05:15 Miralax PO Not Given DAILY ANTONY Promethazine HCl 25 mg 12/10/18 15:38 Phenergan Tablet PO Q4H PRN PRN NAUSEA/VOMITING Senna/Docusate Sodium 2 tablet 12/12/18 16:57 Senokot-S, Agata-Colace PO BID PRN PRN constipaton Sodium Chloride 10 - 40 ml 12/10/18 20:20 12/12/18 21:14 IV 20 ml UD PRN Administration SALINE FLUSH Sucralfate 1 gm 12/10/18 16:15 12/12/18 15:59 Carafate PO 1 gm 0700,1600 [facility] Administration Tramadol HCl 50 mg 12/10/18 21:10 12/11/18 02:09 Ultram PO 50 mg Q6H PRN PRN Administration MODERATE PAIN (4-5/10) Tuberculin PPD 5 tu 12/18/18 10:00 Tubersol, Aplisol, Ppd ID 12/18/18 10:01 X1 ONE Problem List (Last Updated 11/27/18 @ 10:43 by Nithya Zabala) Hypertension (Chronic) Vitamin D deficiency (Chronic) Osteoarthritis (Chronic) Edema (Chronic) Vital Signs Temp Pulse Resp BP Pulse Ox 98.2 F 82 20 H 129/66 H 94 12/12/18 15:18 12/12/18 15:18 12/12/18 15:18 12/12/18 15:18 12/12/18 15:18 Oxygen Delivery Method Room Air Weight: 88.9 kg Body Mass Index (BMI) 37.0 Finger Stick Blood Glucose 126 Sodium 142 mmol/L (136-145) 12/11/18 05:10 Potassium 4.1 mmol/L (3.5-5.1) 12/11/18 05:10 Chloride 109 mmol/L (98-107) H 12/11/18 05:10 Carbon Dioxide 28.0 mmol/L (21.0-32.0) 12/11/18 05:10 5 (5-15) 12/11/18 05:10 BUN 28 mg/dL (7-18) H 12/11/18 05:10 0.78 mg/dL (0.55-1.02) 12/11/18 05:10 Est GFR (MDRD) Af Amer 93 mL/min (>60) 12/11/18 05:10 Est GFR (MDRD) Non-Af 77 mL/min (>60) 12/11/18 05:10 35.9 RATIO (10-20) H 12/11/18 05:10 Glucose 80 mg/dL (74-106) 12/11/18 05:10 Assessment/Plan: Psychotropic Medications: Unnecessary Medications: Bowel Regimen: - Provider Comments Provider responsibility: Provider responsible to enter orders to implement recommendations Provider Comments to Recommendations by Pharmacy: Agree
[2018-12-12] MEDS: Acetaminophen 500 MG Tablet 1000 MG PO (15:08)
[2018-12-12 15:18] VITALS: BP 129/66; PULSE 82; RESP 20; TEMP 36.8; O2SAT 94
[2018-12-12] MEDS: 0.9% NaCl IVPB Med Flush (250 mL) 100 ML IV (21:14)
[2018-12-12] MEDS: oxyCODONE 5 MG Tablet 10 MG PO (23:02)
[2018-12-13] MEDS: oxyCODONE 5 MG Tablet 10 MG PO ×2 (06:10→10:05)
[2018-12-13] MEDS: Sucralfate 1 GM Tablet PO ×2 (06:10→17:16)
[2018-12-13] MEDS: Pantoprazole Sodium 40 MG Tablet PO ×2 (06:11→17:16)
[2018-12-13] MEDS: Enoxaparin 40 MG/0.4 ML Syringe SC (06:11)
[2018-12-13] MEDS: Meloxicam 15 MG Tablet PO (06:11)
[2018-12-13] MEDS: 0.9% NaCl Peripheral Flush Adult/Peds IV ×3 (06:12→21:14)
[2018-12-13 15:49] VITALS: BP 111/66; PULSE 79; RESP 18; TEMP 36.9; O2SAT 96
[2018-12-13] MEDS: Acetaminophen 500 MG Tablet 1000 MG PO (21:21)
[2018-12-14] MEDS: Sucralfate 1 GM Tablet PO ×2 (05:29→16:29)
[2018-12-14] MEDS: Pantoprazole Sodium 40 MG Tablet PO ×2 (05:29→16:29)
[2018-12-14] MEDS: Meloxicam 15 MG Tablet PO (05:29)
[2018-12-14] MEDS: Enoxaparin 40 MG/0.4 ML Syringe SC (05:29)
[2018-12-14] MEDS: 0.9% NaCl Peripheral Flush Adult/Peds IV ×5 (05:30→23:05)
[2018-12-14] MEDS: Acetaminophen 500 MG Tablet 1000 MG PO ×2 (14:05→23:10)
[2018-12-14 15:29] VITALS: BP 146/78; PULSE 76; RESP 20; TEMP 36.9; O2SAT 95
[2018-12-15] MEDS: oxyCODONE 5 MG Tablet 10 MG PO (00:34)
[2018-12-15] MEDS: 0.9% NaCl Peripheral Flush Adult/Peds IV ×2 (05:47→21:30)
[2018-12-15] MEDS: Meloxicam 15 MG Tablet PO (05:47)
[2018-12-15] MEDS: Pantoprazole Sodium 40 MG Tablet PO ×2 (05:47→17:32)
[2018-12-15] MEDS: Enoxaparin 40 MG/0.4 ML Syringe SC (05:47)
[2018-12-15] MEDS: Sucralfate 1 GM Tablet PO ×2 (08:27→17:32)
[2018-12-15] MEDS: Acetaminophen 500 MG Tablet 1000 MG PO (15:25)
[2018-12-15 15:30] VITALS: BP 140/71; PULSE 72; RESP 18; TEMP 36.9; O2SAT 96
--- NOTE | 2018-12-15 15:45 | NURSING ---
WOUND VAC CANISTER CHANGED DUE TO COMPLAINTS OF SMELL. 100 OUT. TINO BENSON AWARE
[2018-12-15] MEDS: 0.9% NaCl IVPB Med Flush (250 mL) 100 ML IV (21:26)
[2018-12-16] MEDS: oxyCODONE 5 MG Tablet 10 MG PO ×2 (00:28→14:06)
[2018-12-16] MEDS: 0.9% NaCl Peripheral Flush Adult/Peds IV ×3 (06:25→21:22)
[2018-12-16] MEDS: Enoxaparin 40 MG/0.4 ML Syringe SC (06:28)
[2018-12-16] MEDS: Meloxicam 15 MG Tablet PO (06:29)
[2018-12-16] MEDS: Pantoprazole Sodium 40 MG Tablet PO ×2 (06:30→16:52)
[2018-12-16] MEDS: Sucralfate 1 GM Tablet PO ×2 (06:30→16:53)
--- NOTE | 2018-12-16 10:44 | CASEMGMT ---
Addendum entered by Viri Shaw 12/16/18 12:32: Next continued stay review due 12/18/18. Auth #[id number]. Original Note: Insurance: Continued stay review sent through [employer] email this day Auth #[id number].
[2018-12-16 15:58] VITALS: PULSE 78; RESP 18; O2SAT 97
[2018-12-16 16:00] VITALS: BP 146/74; PULSE 84; RESP 18; TEMP 36.7; O2SAT 94
[2018-12-16] MEDS: 0.9% NaCl IVPB Med Flush (250 mL) 100 ML IV (21:17)
[2018-12-17] MEDS: Acetaminophen 500 MG Tablet 1000 MG PO (05:02)
[2018-12-17] MEDS: Meloxicam 15 MG Tablet PO (05:02)
[2018-12-17] MEDS: Pantoprazole Sodium 40 MG Tablet PO ×2 (05:02→16:29)
[2018-12-17] MEDS: Enoxaparin 40 MG/0.4 ML Syringe SC (05:03)
[2018-12-17] MEDS: 0.9% NaCl Peripheral Flush Adult/Peds IV ×3 (05:03→21:17)
[2018-12-17] MEDS: Sucralfate 1 GM Tablet PO ×2 (06:01→16:29)
--- NOTE | 2018-12-17 14:05 | CHAPLAIN ---
Type of Pastoral Visit ___ Initial Visit _x__ Follow-up Visit ___ On-call Visit ___ General Patient Visit ___ Spiritual Assessment ___ Family Conference ___ Bereavement ___ Rapid Response ___ Code Blue ___ Other (describe below) Pastoral Care Referral From _x__ Patient ___ Family ___ Nurse ___ Physician ___ Dyehouse Worker ___ Associate Professor Of Forestry ___ Other (describe below) Sacrament/Intervention _x__ Active listening ___ Anointing ___ Gnosticist ___ Bereavement ___ Communion ___ Marivel exploration ___ _x__ Life review _x__ Prayer ___ Reconciliation ___ Sacrament of Sick _x__ Supportive presence ___ Wedding ___ Other (describe below) Pastoral Comments
[2018-12-17 15:43] VITALS: BP 141/70; PULSE 77; RESP 16; TEMP 36.8; O2SAT 92
[2018-12-17] MEDS: 0.9% NaCl IVPB Med Flush (250 mL) 100 ML IV (21:14)
[2018-12-18] MEDS: Enoxaparin 40 MG/0.4 ML Syringe SC (05:50)
[2018-12-18] MEDS: Sucralfate 1 GM Tablet PO ×2 (05:50→16:35)
[2018-12-18] MEDS: Pantoprazole Sodium 40 MG Tablet PO ×2 (05:50→16:35)
[2018-12-18] MEDS: Meloxicam 15 MG Tablet PO (05:50)
[2018-12-18] MEDS: 0.9% NaCl Peripheral Flush Adult/Peds IV ×4 (05:50→21:45)
[2018-12-18 05:53] LABS: Absolute Lymphocyte Count 1.94 X10^3/uL (0.83-4.51); Absolute Neutrophil Count 4.1 X10^3/uL (2.0-7.7); Basophil# 0.05 X10^3/uL; Basophil% 0.7 % (0-1); Eosinophil# 0.43 X10^3/uL; Hematocrit 36.2 % (37-47); Hemoglobin 11.6 g/dL (12.0-15.0); Lymphocyte # 1.94 X10^3/ul (4.0); Lymphocyte % 27.1 % (19-41); Mean Corpuscular Volume 84.4 fL (81-99); Mean Platelet Vol. 9.2 fl (6.2-12.0); Monocyte# 0.55 X10^3/uL; Monocyte% 7.7 % (0-10); NRBC Flagged by Analyzer 0 % (0-5); Neutrophil # 4.13 X10^3/uL (2.7-7.7); Neutrophil % 57.8 % (47-70); Platelet Count 312 K/mm3 (150-450); RBC Distribution Width CV 13.9 % (11.6-14.6); RBC Distribution Width SD 42.4 fl (35.1-43.9); Red Blood Count 4.29 M/mm3 (4.2-5.4); White Blood Count 7.2 K/mm3 (4.4-11.0)
[2018-12-18 06:15] LABS: Anion Gap 6 (5-15); BUN 22 mg/dL (7-18); BUN/Creat Ratio 28.2 RATIO (10-20); Calcium,Total 8.6 mg/dL (8.5-10.1); Chloride 113 mmol/L (98-107); Creatinine, Serum 0.78 mg/dL (0.55-1.02); EST Glomerular Filtration Rate 77 mL/min (>60); Est Glom Filt Rate - Afr Amer 93 mL/min (>60); Estimated Creatinine Clearance 38.94 ml/min; Glucose 84 mg/dL (74-106); Potassium 4.2 mmol/L (3.5-5.1); Sodium Level 146 mmol/L (136-145)
[2018-12-18] MEDS: oxyCODONE 5 MG Tablet 10 MG PO (09:14)
[2018-12-18] MEDS: Acetaminophen 500 MG Tablet 1000 MG PO (09:15)
[2018-12-18] MEDS: Tuberculin,Purif.prot.deriv. 50 TU/ML Vial 5 ML ID (09:39)
--- NOTE | 2018-12-18 11:53 | CASEMGMT ---
Social Work IDT met with patient, and daughter for care plan meeting. Discussed patient doing well in therapy and SBA with ADLs, walking 200ft SBA with FWW and climbing 5 steps. Patient continues to receive IV ATBs and wound vac care. Pt and family still unable to manage that care at home until IVs are done 12/24. Therapy will keep working with patient on further strengthening and endurance exercises. Insurance update today - will await outcome. Will continue to follow for discharge planning. Nancy Kumar, STERILIZER MACHINE OPERATOR LUDLOW MACHINE OPERATOR
[2018-12-18 15:13] VITALS: BP 131/74; PULSE 76; RESP 20; TEMP 36.4; O2SAT 97
--- NOTE | 2018-12-18 17:30 | CASEMGMT ---
Insurance: Update sent through [employer] email this day. Auth # [id number]. Continued stay approved with LCD 12/24/18 and D/C to be planned for 12/25/18.
[2018-12-18] MEDS: 0.9% NaCl IVPB Med Flush (250 mL) 100 ML IV (21:46)
[2018-12-19] MEDS: Enoxaparin 40 MG/0.4 ML Syringe SC (05:36)
[2018-12-19] MEDS: Sucralfate 1 GM Tablet PO ×2 (05:37→16:05)
[2018-12-19] MEDS: Pantoprazole Sodium 40 MG Tablet PO ×2 (05:37→16:05)
[2018-12-19] MEDS: Meloxicam 15 MG Tablet PO (05:37)
--- NOTE | 2018-12-19 06:48 | NURSING ---
L wrist noted to be slightly pink and firm above IV site. Tender with NS flush. IV discontinued. New PIV attempted by 3 RNs without success. Pt is due for IV Cleocin this AM. Nursing Parts Finisher Suma notified.
[2018-12-19] MEDS: Acetaminophen 500 MG Tablet 1000 MG PO (08:19)
--- NOTE | 2018-12-19 09:00 | NURSING ---
Mervin ATTrevor late d/t waiting on pt to get an IV access this AM
--- NOTE | 2018-12-19 14:04 | CASEMGMT ---
Social Work Spoke with patient about discharge planning - home 12/25. Contacted wound nurse to assist with wound vac/care orders and referrals. Provided list of skilled C agencies to pt - pt chose [facility]. Referral made for SN. No DME needs. Plan: DC home 12/25 with [facility] SN. WILI WarrenW
[2018-12-19 14:52] VITALS: BP 156/93; PULSE 76; RESP 18; TEMP 37.1; O2SAT 96
[2018-12-19] MEDS: 0.9% NaCl Peripheral Flush Adult/Peds IV (15:01)
--- NOTE | 2018-12-19 20:32 | DCINST_ITS ---
- Discharge Diagnoses Current Active Problems: Current Active and Chronic Problems (Last Updated 11/27/18 @ 10:43 by Nithya Zabala) Hypertension (Chronic) Vitamin D deficiency (Chronic) Osteoarthritis (Chronic) Edema (Chronic) You will use the following diet at home:: No restrictions, Regular Your food should be the consistency of: Regular Your liquids should be the consistency of: Regular/Thin Discharge Activity: Return to Normal Activity, May Shower, Use Walker Weight Bearing Status: Weight bearing as tolerated Call your doctor if you observe: Fever of 101 or Higher, Inability to urinate, Shortness of breath, Chest pain, Uncontrolled pain Allergies/Adverse Reactions: Allergies bee pollen Allergy (Verified 12/02/18 08:57) Anaphylaxis latex Allergy (Verified 12/02/18 08:57) Swelling morphine Allergy (Verified 12/02/18 08:57) Other hallucinations Penicillins Allergy (Verified 12/02/18 08:57) Hives hydrocodone bitartrate [From Vicodin] Adverse Reaction (Verified 12/02/18 08:57) Abd cramps/diarrhea Medications to take at Discharge Esomeprazole Mag Trihydrate [Nexium] 40 mg PO BID 03/09/16 cholecalciferol (vitamin D3) 1,000 unit capsule 1,000 unit PO DAILY 11/27/18 meloxicam 15 mg tablet 15 mg PO DAILY 11/27/18 sucralfate 1 gram tablet 1 g PO BID 11/27/18 Acetaminophen [Tylenol] 1,000 mg PO Q6H PRN PRN tab 12/19/18 Nutritional Supplement [Jaguar - ORANGE FLAVOR] 1 packet PO BIDCM #60 packet 12/19/18 Oxycodone [Oxyir] 10 mg PO Q4H PRN PRN 7 Days #30 tab 12/19/18 Polyethylene Glycol 3350 [Miralax] 17 gm PO DAILY #30 packet 12/19/18 The following prescriptions were given: Nutritional Supplement [Jaguar - [place]ANGE FLAVOR] 1 packet PO BIDCM #60 packet Transmission Status: Pending to [id number] Polyethylene Glycol 3350 [Miralax] 17 gm PO DAILY #30 packet Transmission Status: [facility]ending to [id number] Oxycodone [Oxyir] 10 mg PO Q4H PRN PRN 7 Days #30 tab PRN Reason: Severe Pain (6-01/30) Prescription Printed Primary Care Physician: Alexi Morin Chi, MD [Primary Care Provider] - Please follow up with your Primary Care Physician in: 1 week. Test Results: Test results from this visit will be discussed in further detail at your follow- up appointment, if applicable. Please Follow Up With: Wound Center When: 1 week. Proposed Discharge Date: 12/25/18
--- NOTE | 2018-12-19 20:34 | DS.PCM_ITS ---
Discharge Date and Diagnosis Date of Admission: 12/10/18 Date of Discharge: 12/25/18 - Secondary Discharge Diagnosis Chronic Problems (Last Updated 11/27/18 @ 10:43 by Nithya Zabala) Hypertension (Chronic) Vitamin D deficiency (Chronic) Osteoarthritis (Chronic) Edema (Chronic) History of right knee joint replacement (Chronic) Fibromyalgia (Chronic) Obesity (Chronic) Generalized osteoarthritis (Chronic) GERD (gastroesophageal reflux disease) (Chronic) Hospital Course and Treatment Imaging Results: 12/14/18 13:29 Diet: Regular Diet Is pt able to select menu?: Yes Labs (Last 48 Hours) 12/18/18 12/18/18 05:34 05:34 WBC 7.2 RBC 4.29 Hgb 11.6 L Hct 36.2 L MCV 84.4 MCH 27.0 MCHC 32.0 RDW Std Deviation 42.4 RDW Coeff of April 13.9 Plt Count 312 MPV 9.2 Immature Gran % (Auto) 0.700 Neut % (Auto) 57.8 Lymph % (Auto) 27.1 [place] % (Auto) 7.7 Eos % (Auto) 6.0 H Baso % (Auto) 0.7 Absolute Neuts (auto) 4.1 Absolute Lymphs (auto) 1.94 Nucleated RBC % 0 Sodium 146 H Potassium 4.2 Chloride 113 H Carbon Dioxide 27.0 Anion Gap 6 BUN 22 H Creatinine 0.78 Estim Creat Clear Calc 38.94 Est GFR (MDRD) Af Amer 93 Est GFR (MDRD) Non-Af 77 BUN/Creatinine Ratio 28.2 H Glucose 84 Calcium 8.6 Consultations 12/10/18 20:20 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 Procedures: None Summary of Care Provided: The patient is a 73 year old Female with below past medical history hospitalized with painful hematoma right lower extremity, underwent incision, drainage, evacuation, excisional debridement with wound vac placement 12/05/[address] De Dios, admitted to TCU with debility, here for rehabilitation, strengthening, wound care, intravenous antibiotics, prior to discharge home with spouse. Will need further surgery in the next 2 to 4 weeks. Discharge home with spouse, [facility]. - Physical Exam Vital Signs Temp Pulse Resp BP Pulse Ox 98.8 F 76 18 156/93 H 96 12/19/18 14:52 12/19/18 14:52 12/19/18 14:52 12/19/18 14:52 12/19/18 14:52 Oxygen Delivery Method Room Air Weight: 88.082 kg Body Mass Index (BMI) 37.0 Finger Stick Blood Glucose 126 Intake and Output for Last 24 Hours 12/17/18 12/18/18 12/19/18 23:59 23:59 23:59 Intake Total 1052 / 1052 1032 / 1032 1068 / 1068 Balance 1052 / 1052 1032 / 1032 1068 / 1068 Discharge Diet: No Restrictions Discharge Activity: Return to Normal Activity, May Shower, Use Walker Weight Bearing Status: Weight bearing as tolerated Call your doctor if you observe: Fever of 101 or Higher, Inability to urinate, Shortness of breath, Chest pain, Uncontrolled pain Home Medications: Medications to take at Discharge Esomeprazole Mag Trihydrate [Nexium] 40 mg PO BID 03/09/16 cholecalciferol (vitamin D3) 1,000 unit capsule 1,000 unit PO DAILY 11/27/18 meloxicam 15 mg tablet 15 mg PO DAILY 11/27/18 sucralfate 1 gram tablet 1 g PO BID 11/27/18 Acetaminophen [Tylenol] 1,000 mg PO Q6H PRN PRN tab 12/19/18 Nutritional Supplement [Jaguar - ORANGE FLAVOR] 1 packet PO BIDCM #60 packet 12/19/18 Oxycodone [Oxyir] 10 mg PO Q4H PRN PRN 7 Days #30 tab 12/19/18 Polyethylene Glycol 3350 [Miralax] 17 gm PO DAILY #30 packet 12/19/18 Following Prescrptions Were Given to Patient: Nutritional Supplement [Jaguar - [place]ANGE FLAVOR] 1 packet PO BIDCM #60 packet Transmission Status: [id number] Polyethylene Glycol 3350 [Miralax] 17 gm PO DAILY #30 packet Transmission Status: [id number] Oxycodone [Oxyir] 10 mg PO Q4H PRN PRN 7 Days #30 tab PRN Reason: Severe Pain (6-01/30) Prescription Printed Primary Care Physician: Alexi Morin Chi, MD [Primary Care Provider] - Please follow up with your Primary Care Physician in: 1 week. Please Follow Up With: Wound Center When: 1 week. Disposition: Home with Home Health Minutes spent on discharge:: 35 Patient Condition:: Stable Medical Necessity - Tobacco Use Smoking Status: Never smoker Tobacco Use: Non-smoker Meaningful Use Info Meaningful Use Diagnoses (Choose all that apply): None applicable
--- NOTE | 2018-12-19 20:36 | HHNOTE_ITS ---
Home Health Note - Plan Overview of reason of hospitalization: The patient is a 73 year old Female with below past medical history hospitalized with painful hematoma right lower extremity, underwent incision, drainage, evacuation, excisional debridement with wound vac placement 12/05/[address] De Dios, admitted to TCU with debility, here for rehabilitation, strengthening, wound care, intravenous antibiotics, prior to discharge home with spouse. Will need further surgery in the next 2 to 4 weeks. Discharge home with spouse, [facility]. Problems: Patient was seen for (Last Updated 11/27/18 @ 10:43 by Nithya Zabala) Hypertension (Chronic) Vitamin D deficiency (Chronic) Osteoarthritis (Chronic) Edema (Chronic) Complete List of Medical Problems (Last Updated 11/27/18 @ 10:43 by Nithya Zabala) Hypertension (Chronic) Vitamin D deficiency (Chronic) Osteoarthritis (Chronic) Edema (Chronic) Open wound of right lower leg with complication (Acute) Cellulitis of right anterior lower leg (Acute) Pain in right leg (Acute) History of right knee joint replacement (Chronic) Skin necrosis (Acute) Hematoma of right lower extremity (Acute) [place] (acute kidney injury) (Acute) Dehydration (Acute) Dizziness (Acute) Leukocytosis (Acute) Abdominal pain (Acute) Viral illness (Acute) Acute renal failure (Acute) Hyperglycemia (Acute) Lightheadedness (Acute) Generalized abdominal pain (Acute) Diarrhea (Acute) Fibromyalgia (Chronic) Obesity (Chronic) Generalized osteoarthritis (Chronic) GERD (gastroesophageal reflux disease) (Chronic) - Requirements and Reasons Disciplines Needed/Ordered: Prison Reason for Disciplines: Disease Specific Monitoring/education, Wound Care, Drainage Devices/Tube Care Related To: Change in Medical Treatment Plan, Physical Impairments, Unsteady Gait/Balance, Intractable Pain, Fall Risk Patient is unable to leave the home: Without Aid of Supportive Devices (crutches, cane, wheelchair, walker), Without the assistance of another person
[2018-12-20] MEDS: 0.9% NaCl Peripheral Flush Adult/Peds IV ×2 (06:22→21:33)
[2018-12-20] MEDS: Enoxaparin 40 MG/0.4 ML Syringe SC (06:23)
[2018-12-20] MEDS: Sucralfate 1 GM Tablet PO ×2 (06:23→16:26)
[2018-12-20] MEDS: Meloxicam 15 MG Tablet PO (06:23)
[2018-12-20] MEDS: Pantoprazole Sodium 40 MG Tablet PO ×2 (06:23→16:27)
[2018-12-20] MEDS: oxyCODONE 5 MG Tablet 10 MG PO (10:19)
[2018-12-20] MEDS: Acetaminophen 500 MG Tablet 1000 MG PO ×2 (10:22→21:36)
--- NOTE | 2018-12-20 11:44 | NURSING ---
wound photo: right lower leg
[2018-12-20 13:47] VITALS: O2SAT 96
[2018-12-20 16:00] VITALS: BP 118/70; PULSE 76; RESP 20; TEMP 37.1; O2SAT 97
[2018-12-20] MEDS: 0.9% NaCl IVPB Med Flush (250 mL) 100 ML IV (21:15)
[2018-12-21] MEDS: Pantoprazole Sodium 40 MG Tablet PO ×2 (06:31→16:29)
[2018-12-21] MEDS: Enoxaparin 40 MG/0.4 ML Syringe SC (06:31)
[2018-12-21] MEDS: Meloxicam 15 MG Tablet PO (06:31)
[2018-12-21] MEDS: Sucralfate 1 GM Tablet PO ×2 (06:31→16:28)
[2018-12-21] MEDS: 0.9% NaCl Peripheral Flush Adult/Peds IV ×3 (06:37→21:10)
--- NOTE | 2018-12-21 14:35 | NURSING ---
Per therapy, patient can now be up ad sallie.
[2018-12-21 15:41] VITALS: BP 123/69; PULSE 77; RESP 18; TEMP 37; O2SAT 95
[2018-12-21] MEDS: 0.9% NaCl IVPB Med Flush (250 mL) 100 ML IV (21:13)
[2018-12-22] MEDS: Enoxaparin 40 MG/0.4 ML Syringe SC (06:33)
[2018-12-22] MEDS: Pantoprazole Sodium 40 MG Tablet PO ×2 (06:33→17:19)
[2018-12-22] MEDS: Meloxicam 15 MG Tablet PO (06:33)
[2018-12-22] MEDS: Sucralfate 1 GM Tablet PO ×2 (06:33→16:22)
[2018-12-22] MEDS: 0.9% NaCl Peripheral Flush Adult/Peds IV ×3 (06:33→21:38)
[2018-12-22] MEDS: Acetaminophen 500 MG Tablet 1000 MG PO ×2 (13:40→23:36)
--- NOTE | 2018-12-22 14:43 | NURSING ---
1400- pt c/o top of rt foot hurting this afternoon. reports that hit it this am on the metal bed frame getting out of bed top of rt foot with pedal edema and slight eccymosis like appearance. no cuts or abrasions obs. tia wrap loose and redone with some compression to toes up. ice bag applied and tylenol given. will monitor.
[2018-12-22 15:39] VITALS: BP 133/74; PULSE 68; RESP 18; TEMP 36.9; O2SAT 95
[2018-12-22] MEDS: 0.9% NaCl IVPB Med Flush (250 mL) 100 ML IV (21:38)
--- NOTE | 2018-12-22 23:12 | NURSING ---
2200- pt states pain to R foot is improved. continues to have pedal edema. no open areas or discoloration noted to site. pt states ROM to her foot has been WNL.
[2018-12-22] MEDS: traMADol 50 MG Tablet PO (23:36)
[2018-12-23] MEDS: Meloxicam 15 MG Tablet PO (06:18)
[2018-12-23] MEDS: Enoxaparin 40 MG/0.4 ML Syringe SC (06:19)
[2018-12-23] MEDS: 0.9% NaCl Peripheral Flush Adult/Peds IV ×3 (06:19→21:29)
[2018-12-23] MEDS: Pantoprazole Sodium 40 MG Tablet PO ×2 (06:19→17:39)
[2018-12-23] MEDS: Sucralfate 1 GM Tablet PO ×2 (06:19→17:39)
[2018-12-23] MEDS: oxyCODONE 5 MG Tablet 10 MG PO (08:37)
[2018-12-23 09:38] VITALS: PULSE 73; RESP 18; O2SAT 97
--- NOTE | 2018-12-23 11:03 | NURSING ---
Yusuf toro'd d/t pt being up ad sallie.
[2018-12-23 15:33] VITALS: BP 128/67; PULSE 76; RESP 18; TEMP 36.7; O2SAT 95
[2018-12-23] MEDS: 0.9% NaCl IVPB Med Flush (250 mL) 100 ML IV (21:20)
[2018-12-24] MEDS: Sucralfate 1 GM Tablet PO ×2 (06:18→16:44)
[2018-12-24] MEDS: Meloxicam 15 MG Tablet PO (06:18)
[2018-12-24] MEDS: Pantoprazole Sodium 40 MG Tablet PO ×2 (06:18→16:44)
[2018-12-24 09:17] VITALS: PULSE 79; RESP 18; O2SAT 97
[2018-12-24 14:57] VITALS: BP 150/86; PULSE 81; RESP 18; TEMP 36.4; O2SAT 96
--- NOTE | 2018-12-24 16:00 | CHAPLAIN ---
casual visit; spouse is with her; offered farewell and best wishes as she plans to be discharged tomorrow
[2018-12-24] MEDS: 0.9% NaCl Peripheral Flush Adult/Peds IV (21:12)
[2018-12-25] MEDS: oxyCODONE 5 MG Tablet 10 MG PO (00:11)
[2018-12-25 06:05] LABS: Absolute Neutrophil Count 3.6 X10^3/uL (2.0-7.7); Basophil# 0.05 X10^3/uL; Basophil% 0.7 % (0-1); Eosinophil# 0.44 X10^3/uL; Eosinophils% 6.5 % (0-5); Hematocrit 32.6 % (37-47); Hemoglobin 10.3 g/dL (12.0-15.0); Lymphocyte % 32.4 % (19-41); Mean Corp Hgb Conc 31.6 g/dL (32-36); Mean Corpuscular Hgb 26.8 pg (27.0-32.0); Mean Corpuscular Volume 84.7 fL (81-99); Mean Platelet Vol. 9.6 fl (6.2-12.0); Monocyte% 7.4 % (0-10); NRBC Flagged by Analyzer 0 % (0-5); Neutrophil # 3.58 X10^3/uL (2.7-7.7); Neutrophil % 52.6 % (47-70); Platelet Count 283 K/mm3 (150-450); RBC Distribution Width CV 14.3 % (11.6-14.6); RBC Distribution Width SD 43.6 fl (35.1-43.9); Red Blood Count 3.85 M/mm3 (4.2-5.4); White Blood Count 6.8 K/mm3 (4.4-11.0)
[2018-12-25] MEDS: Sucralfate 1 GM Tablet PO (06:15)
[2018-12-25] MEDS: Meloxicam 15 MG Tablet PO (06:15)
[2018-12-25] MEDS: Pantoprazole Sodium 40 MG Tablet PO (06:15)
[2018-12-25 06:25] LABS: Anion Gap 4 (5-15); BUN 28 mg/dL (7-18); BUN/Creat Ratio 33.1 RATIO (10-20); Calcium,Total 8.9 mg/dL (8.5-10.1); Chloride 110 mmol/L (98-107); Creatinine, Serum 0.85 mg/dL (0.55-1.02); EST Glomerular Filtration Rate 70 mL/min (>60); Est Glom Filt Rate - Afr Amer 85 mL/min (>60); Estimated Creatinine Clearance 45.81 ml/min; Glucose 81 mg/dL (74-106); Sodium Level 143 mmol/L (136-145)
--- NOTE | 2018-12-25 10:47 | NURSING ---
wound photo: right lower leg
[2018-12-25] MEDS: Iron Polysaccharide Complex 150 MG CAPSULE PO (10:51)
[2018-12-25 11:58] VITALS: BP 142/78; PULSE 75; RESP 18; TEMP 36.9; O2SAT 95
== END 2018-12-25 12:15 | disposition home health service (06) | DRG 950 ==
PROVIDERS: Admitting Provider Family Medicine Geriatric Medicine; Family Provider Family Medicine Geriatric Medicine; PCP Family Medicine Geriatric Medicine; Referring Provider Family Medicine Geriatric Medicine; Visit Provider Family Medicine Geriatric Medicine
DX: S80.11XD Contusion of right lower leg, subsequent encounter (principal); X58.XXXD Exposure to other specified factors, subsequent encounter; I10 Essential (primary) hypertension; L08.9 Local infection of the skin and subcutaneous tissue, unspecified; K21.9 Gastro-esophageal reflux disease without esophagitis; Z23 Encounter for immunization; E55.9 Vitamin D deficiency, unspecified; Z96.653 Presence of artificial knee joint, bilateral; E66.9 Obesity, unspecified; Z68.37 Body mass index [BMI] 37.0-37.9, adult; Z71.3 Dietary counseling and surveillance; M79.7 Fibromyalgia; M15.9 Polyosteoarthritis, unspecified; M06.9 Rheumatoid arthritis, unspecified
CPT/HCPCS: 36415; 80048; 85025; 97110; 97116; 97163; 97166; 97530; 97535; 97802; J7030; J7050; 90670; A4216

== ENCOUNTER → 2019-01-17 14:39 | Outpatient (CLI) | payer MEDICARE, SELFPAY ==
[2019-01-17 12:34] VITALS: BMI 36.8
[2019-01-17 16:28] LABS: Mucous, Urine 0 SEEN /hpf (<or=2+)
[2019-01-17 16:40] LABS: Color, Urine Yellow (Yellow); Glucose, Dipstick Normal (Normal); Ketone-Dipstick 5 mg/dl (Negative); Leukocyte Esterase-Dipstick 500 /ul (Negative); Nitrite-Dipstick Positive (Negative); Occult Blood-Urine 25 /ul (Negative); Protein-Dipstick 30 mg/dl (Negative); Specific Gravity, Urine 1.025 (1.002-1.030); Urine Bilirubin Dipstick Negative (Negative); Urine Clarity Cloudy (Clear); Urine Urobilinogen Normal (Normal)
[2019-01-17 17:04] LABS: Bacteria 2+ /hpf (None Seen); Red Blood Cells-Urine 0-5 SEEN /hpf (0-5); Squamous Epithelial Cells - UA 0-5 SEEN /hpf (5-10); Transitional Epithelial - Ur 0-5 SEEN /hpf (0-5); White Blood Cells >100 SEEN /hpf (0-5)
== END ==
PROVIDERS: Family Provider Family Medicine Geriatric Medicine; PCP Family Medicine Geriatric Medicine; Referring Provider Physician Assistant Surgical; Visit Provider Physician Assistant Surgical
DX: R10.9 Unspecified abdominal pain (principal); R30.0 Dysuria
CPT/HCPCS: 81001; 87077; 87086; 87088; 87186

== ENCOUNTER 2019-01-20 09:45 | Outpatient (RCR) | payer MEDICARE, SELFPAY ==
[2019-01-06 10:11] VITALS: BP 158/78; PULSE 68; RESP 16; TEMP 36; BMI 36.8
--- NOTE | 2019-01-06 13:29 | HP.PCM_ITS ---
(1) Ulcer of right lower leg Status: Chronic Code(s): L97.919 - Non-pressure chronic ulcer of unspecified part of right lower leg with unspecified severity (2) Pain in right leg Status: Acute Code(s): M79.604 - Pain in right leg (3) Hematoma of right lower extremity Status: Acute Code(s): S80.11XA - Contusion of right lower leg, initial encounter (4) History of right knee joint replacement Status: Chronic Code(s): Z96.651 - Presence of right artificial knee joint History of Present Illness Date of Service: 01/06/19 Chief Complaint: Right lower leg opened wound after hematoma evacuation History of Wound: On 12/05/18 patient underwent surgical preparation right anterolateral leg with incision and drainage and evacuation and excisional debridement infected hematoma including necrotic skin (66.5 cm2). Wound VAC plac e the next day. She was transfered to TCU and discharged home on 12/25/18. She completed the Clindamycin antibiotics. Today she complains of right leg pain. She denies fevers. States her appetite is good. Past Medical History Past Medical History: Chronic Problems (Last Updated 11/27/18 @ 10:43 by Nithya Zabala) Hypertension (Chronic) Vitamin D deficiency (Chronic) Osteoarthritis (Chronic) Edema (Chronic) Ulcer of right lower leg (Chronic) Open wound of right lower leg with complication (Chronic) History of right knee joint replacement (Chronic) Fibromyalgia (Chronic) Obesity (Chronic) Generalized osteoarthritis (Chronic) GERD (gastroesophageal reflux disease) (Chronic) Surgical History: adenoidectomy, appendectomy, cataract, cholecystectomy - Laparoscopic., hysterectomy, total knee arthroplasty - Bilateral., tonsillectomy, - - Breast biopsies for benign cysts, cardiac catheterization, right rotator cuff repair. Allergies/Adverse Reactions: Allergies bee pollen Allergy (Verified 01/06/19 10:28) Anaphylaxis latex Allergy (Verified 01/06/19 10:28) Swelling morphine Allergy (Verified 01/06/19 10:28) Other hallucinations Penicillins Allergy (Verified 01/06/19 10:28) Hives hydrocodone bitartrate [From Vicodin] Adverse Reaction (Verified 01/06/19 10:28) Abd cramps/diarrhea Home Medications: Ambulatory Orders Medication Instructions Recorded Esomeprazole Mag Trihydrate 40 mg PO BID 03/09/16 [Nexium] cholecalciferol (vitamin D3) 1,000 1,000 unit PO DAILY 11/27/18 unit capsule meloxicam 15 mg tablet 15 mg PO DAILY 11/27/18 sucralfate 1 gram tablet 1 g PO BID 11/27/18 Acetaminophen [Tylenol] 1,000 mg PO Q6H PRN PRN tab 12/19/18 - Family History Maternal Family History: Family History (Last Updated 11/27/18 @ 10:51 by Nithya Zabala) Father Diabetes Heart disease Hypertension CVA (cerebral vascular accident) Mother Breast cancer Hypertension Grandmother Cancer Ovarian cancer Son Anesthesia complication Brother Asthma Arthritis Diabetes Respiratory disease Grandfather Lung cancer CVA (cerebral vascular accident) Cancer - Breast cancer Paternal Family History: Family History (Last Updated 11/27/18 @ 10:51 by Nithya Zabala) Father Diabetes Heart disease Hypertension CVA (cerebral vascular accident) Mother Breast cancer Hypertension Grandmother Cancer Ovarian cancer Son Anesthesia complication Brother Asthma Arthritis Diabetes Respiratory disease Grandfather Lung cancer CVA (cerebral vascular accident) Diabetes, - - Parkinson's disease Smoking Status: Never smoker Review of Systems Constitutional: Denies: Chills, Fever, Weight Change Eyes: Denies: Pain, Vision Change HEENT: Denies: Difficulty Hearing, Difficulty Swallowing, Sinus Congestion Cardiovascular: Denies: Chest Pain, Palpitations Respiratory: Denies: Cough, Shortness of Breath Gastrointestinal: Denies: Diarrhea, Nausea, Vomiting Musculoskeletal: Reports: Leg Pain Skin: Reports: Wounds - right anterior lower leg ulcer Neurological: Denies: Balance problems Psychiatric: Denies: Anxiety Endocrine: Denies: Heat/ Cold Intolerance, Polydipsia, Polyuria Hematologic/ Lymphatic: Denies: Easy Bruising, Easy Bleeding - Physical Exam Vital Signs Temp Pulse Resp BP 96.8 F L 68 16 158/78 H 01/06/19 10:11 01/06/19 10:11 01/06/19 10:11 01/06/19 10:11 General: Alert, Oriented x3, Cooperative HEENT: Atraumatic Oral: Moist Mucosa Lungs: Normal air movement Cardiovascular: Regular rate, Regular Rhythm Extremities: Capillary Refill Less than 3 Seconds, Edema, Peripheral Pulses Normal Skin: Ulcer/ Wound - Ulcer right lower anterior leg Wound Measurements and Assessment WC - Nurse 1 - General Ulcer Measurement Start: 01/06/19 10:07 Freq: Status: Active Protocol: Activity Type Activity Date Activity User E-Sign Co-Sign Detail Recorded Client Recorded Date Recorded By Document 01/06/19 10:11 [facility] [id number] 01/06/19 10:23 [facility] 01/06/19 10:11 Wound Center Nurse 1 [Ulcer Assessment] #1- RT LAT LEG -Combined with other wound No -Current Size (cm) - Length 7.8 -Current Size (cm) - Width 6.5 -Current Size (cm) - Depth 0.3 -Total Square Cm 50.70 -Date of Last Picture (Recall this 01/06/19 field) -Photo Taken Yes -Epithelialization None Present -Tunneling No -Undermining/Tunneling No -Circular Undermining No -Exudate Amt Small -Exudate Type Sanguineous -Wound Margin Distinct, Outline Attached -Granulation Amt Large (67-100%) -Granulation Quality Red -Slough/Fibrin No -Necrosis Amt None Present (0 %) -Texture (Agata-wound Skin Appearance) Assessed, Scarring -Moisture (Agata-wound Skin Appearance Assessed ) -Color (Agata-wound Skin Appearance) Assessed -Temperature (Agata-wound Skin No Abnormality Appearance) (Pt Warm) -Tenderness on Palpation (Agata-wound No Skin Appearance) -Ulcer Cleansing SOAP AND WATER -Foul Odor after Cleansing No -Anesthetic Used 5% Lidocaine Gel [Edema Assessment] -Lower Limb Edema Present Yes -Right Calf (cm) 40.5 -Right Ankle (cm) 26.5 -Left Calf (cm) 41.2 -Left Ankle (cm) 26.7 WC - Nurse 2 - General Ulcer CM Notes Start: 01/06/19 10:07 Freq: Status: Active Protocol: Activity Type Activity Date Activity User E-Sign Co-Sign Detail Recorded Client Recorded Date Recorded By Document 01/06/19 11:09 [id number] 01/06/19 11:10 01/06/19 11:09 Wound Center Nurse 2 [Procedure/Treatment] #1- RT LAT LEG -Time 11:09 -Correct Patient Yes -Correct Side, Site, Position Yes -Correct Procedure Yes -Procedure Performed Yes -Type of Procedure Debridement -Clinical Debridement Subcutaneous -Post Debridement Size (cm) - Length 7.9 -Post Debridement Size (cm) - Width 6.3 -Post Debridement Size (cm) - Depth 0.8 -Total Square Cm 49.77 -Wound/Ulcer Outcome Not Healed -Ulcer Cleansing Rinsed/ Irrigated with Saline -Foul Odor after Cleansing No -Bioengineered Tissue No -Bleeding Controlled with Pressure -Offloading No -Treatment Response Procedure Tolerated Well [See Physician Procedure note for Specifics] Pain Scale: 0-10 Numeric [Pain] -Is Patient Pain Free? Yes Musculoskeletal: No Tenderness to Palpation of Joints or Extremities Lymphatic: No Cervical, Supraclavicular, or Inguinal Adenopathy Neurological: Neuro grossly intact Psych/Mental Status: Normal Affect, Appropriate Debridement Note Post-Debridement Measurements/Treatment WC - Nurse 2 - General Ulcer CM Notes Start: 01/06/19 10:07 Freq: Status: Active Protocol: Activity Type Activity Date Activity User E-Sign Co-Sign Detail Recorded Client Recorded Date Recorded By Document 01/06/19 11:09 [id number] 01/06/19 11:10 AL[facility] 01/06/19 11:09 Wound Center Nurse 2 #1- RT LAT LEG -Time 11:09 -Correct Patient Yes -Correct Side, Site, Position Yes -Correct Procedure Yes -Procedure Performed Yes -Type of Procedure Debridement -Clinical Debridement Subcutaneous -Post Debridement Size (cm) - Length 7.9 -Post Debridement Size (cm) - Width 6.3 -Post Debridement Size (cm) - Depth 0.8 -Total Square Cm 49.77 -Wound/Ulcer Outcome Not Healed -Ulcer Cleansing Rinsed/ Irrigated with Saline -Foul Odor after Cleansing No -Bioengineered Tissue No -Bleeding Controlled with Pressure -Offloading No -Treatment Response Procedure Tolerated Well Pain Scale: 0-10 Numeric Is Patient Pain Free? Yes Wound debrided: Anterior lower leg Laterality: Right Type of Debridement: Excisional debridement Anesthesia Used: 4% Lidocaine Solution, 5% Lidocaine Gel Depth: Down to and including healthy tissue, in the subcutaneous layer Percentage of wound debrided: 100 Instrument Used: 7mm curette Tissue Removed: Subcutaneous tissue and slough Severity: Fat Layer Exposed Amount of bleeding with debridement: Mild Bleeding Controlled with: Pressure, Compression and gauze Patient tolerated procedure well Assessment/Plan Assessment: 1. Ulcer of right lower leg. 2. Pain right leg. 3. Hematoma of right lower extremity. 4. History of right knee joint replacement Plan: Will continue the wound VAC at 150 mmHg. Will use surepress for compression. Patient is complaining of pain, especially at night. Will renew Percocet (21). OARRS report reviewed, no suspicous activity. Encourage increase protein intake. Follow up in one week. Code Visit 18010
[2019-01-13 13:34] VITALS: BP 148/80; PULSE 73; RESP 18; TEMP 36.9; BMI 36.8
--- NOTE | 2019-01-13 20:55 | PCM.WC.PN ---
(1) Ulcer of right lower leg Status: Chronic Current Visit: Yes Code(s): L97.919 - Non-pressure chronic ulcer of unspecified part of right lower leg with unspecified severity (2) Pain in right leg Status: Chronic Current Visit: Yes Code(s): M79.604 - Pain in right leg (3) Hematoma of right lower extremity Status: Acute Current Visit: Yes Code(s): S80.11XA - Contusion of right lower leg, initial encounter (4) History of right knee joint replacement Status: Chronic Current Visit: Yes Code(s): Z96.651 - Presence of right artificial knee joint Type of Wound Date of Service: 01/13/19 Chief Complaint: Right lower leg opened wound after hematoma evacuation History of Wound: On 12/05/18 patient underwent surgical preparation right anterolateral leg with incision and drainage and evacuation and excisional debridement infected hematoma including necrotic skin (66.5 cm2). Wound VAC place the next day. She was transfered to TCU and discharged home on 12/25/18. She completed the Clindamycin antibiotics. Today she complains of right leg pain. She denies fevers. States her appetite is good. Progress of Wound: Stable - Physical Exam Vital Signs Temp Pulse Resp BP 98.4 F 73 18 148/80 H 01/13/19 13:34 01/13/19 13:34 01/13/19 13:34 01/13/19 13:34 General: Alert, Oriented x3, Cooperative HEENT: Atraumatic Oral: Moist Mucosa Lungs: Normal air movement Cardiovascular: Regular rate Extremities: Capillary Refill Less than 3 Seconds, Edema, Peripheral Pulses Normal Skin: Ulcer/ Wound - right anteriolateral leg Wound Measurements and Assessment WC - Nurse 1 - General Ulcer Measurement Start: 01/06/19 10:07 Freq: Status: Active Protocol: Activity Type Activity Date Activity User E-Sign Co-Sign Detail Recorded Client Recorded Date Recorded By Document 01/13/19 13:34 [facility] [id number] 01/13/19 13:45 [facility] 01/13/19 13:34 Wound Center Nurse 1 [Ulcer Assessment] #1- RT LAT LEG -Combined with other wound No -Current Size (cm) - Length 7.2 -Current Size (cm) - Width 6.1 -Current Size (cm) - Depth 0.3 -Total Square Cm 43.92 -Photo Taken No -Epithelialization Small 1-33% -Tunneling No -Undermining/Tunneling No -Circular Undermining No -Exudate Amt Large -Exudate Type Serosanguineous -Wound Margin Distinct, Outline Attached -Granulation Amt Large (67-100%) -Granulation Quality Red -Slough/Fibrin No -Necrosis Amt None Present (0 %) -Texture (Agata-wound Skin Appearance) Assessed, Scarring -Moisture (Agata-wound Skin Appearance Assessed ) -Color (Agata-wound Skin Appearance) Assessed -Temperature (Agata-wound Skin No Abnormality Appearance) (Pt Warm) -Tenderness on Palpation (Agata-wound Yes Skin Appearance) -Ulcer Cleansing soap and water -Foul Odor after Cleansing No -Anesthetic Used 4% Lidocaine Solution [Edema Assessment] -Lower Limb Edema Present Yes -Right Calf (cm) 38.5 -Right Ankle (cm) 25.2 WC - Nurse 2 - General Ulcer CM Notes Start: 01/06/19 10:07 Freq: Status: Active Protocol: Activity Type Activity Date Activity User E-Sign Co-Sign Detail Recorded Client Recorded Date Recorded By Document 01/13/19 14:08 ALFONSO [id number] 01/13/19 14:10 ALFONSO 01/13/19 14:08 Wound Center Nurse 2 [Procedure/Treatment] #1- RT LAT LEG -Time 14:08 -Correct Patient Yes -Correct Side, Site, Position Yes -Correct Procedure Yes -Procedure Performed Yes -Type of Procedure Debridement -Clinical Debridement Subcutaneous -Post Debridement Size (cm) - Length 7.5 -Post Debridement Size (cm) - Width 6.0 -Post Debridement Size (cm) - Depth 0.3 -Total Square Cm 45.00 -Wound/Ulcer Outcome Not Healed -Ulcer Cleansing Rinsed/ Irrigated with Saline -Foul Odor after Cleansing No -Bioengineered Tissue No -Bleeding Controlled with Pressure -Offloading No -Treatment Response Procedure Tolerated Well [See Physician Procedure note for Specifics] Pain Scale: 0-10 Numeric [Pain] -Is Patient Pain Free? Yes Musculoskeletal: No Tenderness to Palpation of Joints or Extremities Neurological: Neuro grossly intact Psych/Mental Status: Normal Affect, Appropriate Debridement Note Post-Debridement Measurements/Treatment WC - Nurse 2 - General Ulcer CM Notes Start: 01/06/19 10:07 Freq: Status: Active Protocol: Activity Type Activity Date Activity User E-Sign Co-Sign Detail Recorded Client Recorded Date Recorded By Document 01/06/19 11:09 [id number] 01/06/19 11:10 Document 01/13/19 14:08 [id number] 01/13/19 14:10 01/06/19 01/13/19 11:09 14:08 Wound Center Nurse 2 #1- RT LAT LEG -Time 11:09 14:08 -Correct Patient Yes Yes -Correct Side, Site, Position Yes Yes -Correct Procedure Yes Yes -Procedure Performed Yes Yes -Type of Procedure Debridement Debridement -Clinical Debridement Subcutaneous Subcutaneous -Post Debridement Size (cm) - Length 7.9 7.5 -Post Debridement Size (cm) - Width 6.3 6.0 -Post Debridement Size (cm) - Depth 0.8 0.3 -Total Square Cm 49.77 45.00 -Wound/Ulcer Outcome Not Healed Not Healed -Ulcer Cleansing Rinsed/ Rinsed/ Irrigated with Irrigated with Saline Saline -Foul Odor after Cleansing No No -Bioengineered Tissue No No -Bleeding Controlled with Pressure Pressure -Offloading No No -Treatment Response Procedure Procedure Tolerated Well Tolerated Well Pain Scale: 0-10 Numeric Is Patient Pain Free? Yes Yes Wound debrided: anteriolateral leg Laterality: Right Type of Debridement: Excisional debridement Anesthesia Used: 4% Lidocaine Solution, 5% Lidocaine Gel Depth: Down to and including healthy tissue, in the subcutaneous layer Percentage of wound debrided: 100 Instrument Used: 7mm curette Tissue Removed: subcutaneous tissue and slough Severity: Limited To Skin Breakdown Amount of bleeding with debridement: Mild Bleeding Controlled with: Pressure, Compression and gauze Patient tolerated procedure well Assessment/Plan Active Problems (Last Updated 11/27/18 @ 10:43 by Nithya Zabala) Ulcer of right lower leg (Chronic) Pain in right leg (Chronic) History of right knee joint replacement (Chronic) Hematoma of right lower extremity (Acute) Assessment: 1. Ulcer of right lower leg. 2. Pain right leg. 3. Hematoma of right lower extremity. 4. History of right knee joint replacement Plan: Will continue the wound VAC at 150 mmHg. Will use surepress for compression. She would benefit from an advances wound healing product such as Theraskin. Will apply to insurance for that. Continue the wound VAC. Encourage increase protein intake. Follow up in one week. Code Visit 111xxx-113xx: 60173 Tiffanie subq tissue 20 sq cm/< Add On Codes: 41293 Tiffanie subq tissue add-on - x2
[2019-01-20 10:15] VITALS: BP 143/79; PULSE 80; RESP 16; TEMP 36.5; BMI 36.8
--- NOTE | 2019-01-20 12:51 | PCM.WC.PN ---
(1) Ulcer of right lower leg Status: Chronic Code(s): L97.919 - Non-pressure chronic ulcer of unspecified part of right lower leg with unspecified severity (2) Pain in right leg Status: Chronic Code(s): M79.604 - Pain in right leg (3) Hematoma of right lower extremity Status: Acute Code(s): S80.11XA - Contusion of right lower leg, initial encounter (4) History of right knee joint replacement Status: Chronic Code(s): Z96.651 - Presence of right artificial knee joint Type of Wound Date of Service: 01/26/19 Chief Complaint: Right lower leg opened wound after hematoma evacuation History of Wound: On 12/05/18 patient underwent surgical preparation right anterolateral leg with incision and drainage and evacuation and excisional debridement infected hematoma including necrotic skin (66.5 cm2). Wound VAC place the next day. She was transfered to TCU and discharged home on 12/25/18. She completed the Clindamycin antibiotics. Wound care: Wound VAC. Will do a wound VAC holiday. Today she complains of right leg pain at the ulcer site. Will culture the ulcer. If cultures come back positive may need to start on antibiotics. Will Apply Silvercel and 3M double wraps to help with the edema. If the wound is too wet on Sunday may restart the VAC. She denies fevers. States her appetite is good. Progress of Wound: Stable - Physical Exam Vital Signs Temp Pulse Resp BP 97.7 F L 80 16 143/79 H 01/20/19 10:15 01/20/19 10:15 01/20/19 10:15 01/20/19 10:15 General: Alert, Oriented x3, Cooperative HEENT: Atraumatic Oral: Moist Mucosa Lungs: Normal air movement Cardiovascular: Regular rate Extremities: Capillary Refill Less than 3 Seconds, Edema, Peripheral Pulses Normal Skin: Ulcer/ Wound - Right lower lateral leg ulcer Wound Measurements and Assessment WC - Nurse 1 - General Ulcer Measurement Start: 01/06/19 10:07 Freq: Status: Active Protocol: Activity Type Activity Date Activity User E-Sign Co-Sign Detail Recorded Client Recorded Date Recorded By Document 01/20/19 10:15 MW [id number] 01/20/19 10:29 MW 01/20/19 10:15 Wound Center Nurse 1 [Ulcer Assessment] #1- RT LAT LEG -Combined with other wound No -Current Size (cm) - Length 6.8 -Current Size (cm) - Width 6.3 -Current Size (cm) - Depth 0.1 -Total Square Cm 42.84 -Photo Taken No -Epithelialization None Present -Tunneling No -Undermining/Tunneling No -Circular Undermining No -Exudate Amt Large -Exudate Type Serosanguineous -Wound Margin Flat & Intact -Granulation Amt Large (67-100%) -Granulation Quality Red -Slough/Fibrin Yes -Necrosis Amt Small (1-33%) -Necrotic Tissue Type Adherent Slough -Structure Exposed N/A -Texture (Agata-wound Skin Appearance) Assessed, Localized Edema ,Scarring -Moisture (Agata-wound Skin Appearance No Abnormality, ) Assessed -Color (Agata-wound Skin Appearance) No Abnormality, Assessed -Temperature (Agata-wound Skin No Abnormality Appearance) (Pt Warm) -Tenderness on Palpation (Agata-wound Yes Skin Appearance) -Ulcer Cleansing soap and water -Foul Odor after Cleansing No -Anesthetic Used 5% Lidocaine Gel [Edema Assessment] -Lower Limb Edema Present Yes -Right Calf (cm) 41.5 -Right Ankle (cm) 27.5 WC - Nurse 2 - General Ulcer CM Notes Start: 01/06/19 10:07 Freq: Status: Active Protocol: Activity Type Activity Date Activity User E-Sign Co-Sign Detail Recorded Client Recorded Date Recorded By Document 01/20/19 10:49 ALFONSO [id number] 01/20/19 10:50 ALFONSO 01/20/19 10:49 Wound Center Nurse 2 [Procedure/Treatment] #1- RT LAT LEG -Time 10:49 -Correct Patient Yes -Correct Side, Site, Position Yes -Correct Procedure Yes -Procedure Performed Yes -Type of Procedure Debridement -Clinical Debridement Subcutaneous -Post Debridement Size (cm) - Length 7.5 -Post Debridement Size (cm) - Width 6.3 -Post Debridement Size (cm) - Depth 0.3 -Total Square Cm 47.25 -Wound/Ulcer Outcome Not Healed -Ulcer Cleansing Rinsed/ Irrigated with Saline -Foul Odor after Cleansing No -Bioengineered Tissue No -Bleeding Controlled with Pressure -Offloading No -Treatment Response Procedure Tolerated Well [See Physician Procedure note for Specifics] Pain Scale: 0-10 Numeric [Pain] -Is Patient Pain Free? Yes Musculoskeletal: No Tenderness to Palpation of Joints or Extremities Neurological: Neuro grossly intact Psych/Mental Status: Normal Affect, Appropriate Debridement Note Post-Debridement Measurements/Treatment WC - Nurse 2 - General Ulcer CM Notes Start: 01/06/19 10:07 Freq: Status: Active Protocol: Activity Type Activity Date Activity User E-Sign Co-Sign Detail Recorded Client Recorded Date Recorded By Document 01/06/19 11:09 [id number] 01/06/19 11:10 Document 01/13/19 14:08 [id number] 01/13/19 14:10 Document 01/20/19 10:49 [id number] 01/20/19 10:50 01/06/19 01/13/19 01/20/19 11:09 14:08 10:49 Wound Center Nurse 2 #1- RT LAT LEG -Time 11:09 14:08 10:49 -Correct Patient Yes Yes Yes -Correct Side, Site, Position Yes Yes Yes -Correct Procedure Yes Yes Yes -Procedure Performed Yes Yes Yes -Type of Procedure Debridement Debridement Debridement -Clinical Debridement Subcutaneous Subcutaneous Subcutaneous -Post Debridement Size (cm) - Length 7.9 7.5 7.5 -Post Debridement Size (cm) - Width 6.3 6.0 6.3 -Post Debridement Size (cm) - Depth 0.8 0.3 0.3 -Total Square Cm 49.77 45.00 47.25 -Wound/Ulcer Outcome Not Healed Not Healed Not Healed -Ulcer Cleansing Rinsed/ Rinsed/ Rinsed/ Irrigated with Irrigated with Irrigated with Saline Saline Saline -Foul Odor after Cleansing No No No -Bioengineered Tissue No No No -Bleeding Controlled with Pressure Pressure Pressure -Offloading No No No -Treatment Response Procedure Procedure Procedure Tolerated Well Tolerated Well Tolerated Well Pain Scale: 0-10 Numeric Is Patient Pain Free? Yes Yes Yes Wound debrided: lateral lower leg Laterality: Right Type of Debridement: Excisional debridement Anesthesia Used: 4% Lidocaine Solution, 5% Lidocaine Gel Depth: Down to and including healthy tissue, in the subcutaneous layer Percentage of wound debrided: 100 Instrument Used: 7mm curette Tissue Removed: Subcutaneous tissue and slough Severity: Fat Layer Exposed Amount of bleeding with debridement: Mild Bleeding Controlled with: Pressure, Compression and gauze Patient tolerated procedure well Assessment/Plan Assessment: 1. Ulcer of right lower leg. 2. Pain right leg. 3. Hematoma of right lower extremity. 4. History of right knee joint replacement Plan: Wound VAC. Will do a wound VAC holiday. Today she complains of right leg pain at the ulcer site. Will culture the ulcer. If cultures come back positive may need to start on antibiotics. Will Apply Silvercel and 3M double wraps to help with the edema. If the wound is too wet on Sunday may restart the VAC. She would benefit from an advances wound healing product such as Theraskin. Will apply to insurance for that. Encourage increase protein intake. Follow up in one week. Code Visit 111xxx-113xx: 07050 Tiffanie subq tissue 20 sq cm/< Add On Codes: [id number] Tiffanie subq tissue add-on
== END 2019-01-20 23:59 ==
LOC: WC 09:45
PROVIDERS: Family Provider Family Medicine Geriatric Medicine; PCP Family Medicine Geriatric Medicine; Referring Provider Surgery; Visit Provider Surgery
DX: S80.11XS Contusion of right lower leg, sequela (principal); X58.XXXS Exposure to other specified factors, sequela; L97.812 Non-pressure chronic ulcer of other part of right lower leg with fat layer exposed; M79.604 Pain in right leg; I10 Essential (primary) hypertension; E55.9 Vitamin D deficiency, unspecified; Z79.899 Other long term (current) drug therapy; M79.7 Fibromyalgia; M19.90 Unspecified osteoarthritis, unspecified site; E66.9 Obesity, unspecified; K21.9 Gastro-esophageal reflux disease without esophagitis; Z68.36 Body mass index [BMI] 36.0-36.9, adult; Z71.3 Dietary counseling and surveillance
CPT/HCPCS: 11042; 11045; 87070; 87075; 87077; 87186; 87205; 97605; 99213; G0463

== ENCOUNTER → 2019-01-30 16:25 | Outpatient (CLI) | payer MEDICARE, SELFPAY ==
[2019-01-27 11:46] VITALS: BMI 36.8
--- NOTE | 2019-01-30 16:29 | RAD_ITS ---
STUDY: X-RAY - LEFT SHOULDER REASON FOR EXAM: Female, 73 years old. Pain and stiffness. TECHNIQUE: 4 view(s) of the shoulder. COMPARISON: None. FINDINGS: Normal glenohumeral articulation. There is degenerative arthrosis of the acromioclavicular joint without inferior osseous spur formation. Normal acromion. Normal humeral head and visualized proximal humerus. The soft tissue structures are unremarkable. There is no demonstrated fracture. Normal visualized pulmonary apex. RAD/Shoulder min 2 Views IMPRESSION: Moderate degenerative changes of the AC joint. Otherwise negative. Electronically Signed: Chang Parmar MD at 23:49 EDT , Service support ,
== END ==
PROVIDERS: Family Provider Family Medicine Geriatric Medicine; PCP Family Medicine Geriatric Medicine; Referring Provider Family Medicine Geriatric Medicine; Visit Provider Family Medicine Geriatric Medicine
DX: M25.519 Pain in unspecified shoulder (principal)
CPT/HCPCS: 73030

== ENCOUNTER 2019-02-18 14:00 | Outpatient (RCR) | payer MEDICARE, SELFPAY ==
[2019-01-21 01:10] VITALS: BP 143/79; PULSE 80; RESP 16; TEMP 36.5
--- NOTE | 2019-01-24 16:31 | WC ---
TC FROM [facility]. SHE REVIEWED PTS WOUND CX'S AND GIVES ORDERS FOR ATBS. 1. LINEZOLID 600MG PO Q12H X15 DAYS NO REFILLS, AND 2. LEVAQUIN 500MG PO DAILY X 15 DAYS NO REFILLS. REVIEWED PTS ALLERGIES. CALLED PT W/ UPDATE ON ALL AND CALLED RX'S TO [facility] PER PT PREFERENCE.
[2019-01-27 11:46] VITALS: BP 158/85; PULSE 73; RESP 16; BMI 36.8
--- NOTE | 2019-01-27 23:13 | PCM.WC.PN ---
Type of Wound Date of Service: 01/27/19 Chief Complaint: Nonhealing hematoma ulcer right anterolateral leg. History of Wound: Surgery 12/05/18 - Surgical preparation right anterolateral leg with incision and drainage and evacuation and excisional debridement infected hematoma including necrotic skin (66.5 cm2). Wound care - VAC holiday. Placed Silver dressing and 3M wrap. Operative culture - Anaerobic cocci. She was placed on Cleocin and has finished them. Recent wound culture on 01/20/19 showed Pseudomonas aeroginosa, Enterococcus faecalis, Methicillin resistant Staphylococcus simulans, and MRSE. She was placed on Zyvox and Levaquin. She states the Zyvox was too expensive. She is just taking the Levaquin. She denies fever. States her appetite is good. Progress of Wound: Improved. - Physical Exam Vital Signs Temp Pulse Resp BP 97.7 F L 73 16 158/85 H 01/21/19 01:10 01/27/19 11:46 01/27/19 11:46 01/27/19 11:46 Wound Measurements and Assessment WC - Nurse 1 - General Ulcer Measurement Start: 01/27/19 11:44 Freq: Status: Active Protocol: Activity Type Activity Date Activity User E-Sign Co-Sign Detail Recorded Client Recorded Date Recorded By Document 01/27/19 11:46 [facility] [id number] 01/27/19 11:55 [facility] 01/27/19 11:46 Wound Center Nurse 1 [Ulcer Assessment] #1- RT LAT LEG -Combined with other wound No -Current Size (cm) - Length 7.2 -Current Size (cm) - Width 5.3 -Current Size (cm) - Depth 0.2 -Total Square Cm 38.16 -Photo Taken No -Epithelialization None Present -Tunneling No -Undermining/Tunneling No -Circular Undermining No -Exudate Amt Large -Exudate Type Purulent -Wound Margin Distinct, Outline Attached -Granulation Amt Large (67-100%) -Granulation Quality Red -Slough/Fibrin Yes -Necrosis Amt Small (1-33%) -Necrotic Tissue Type Adherent Slough -Texture (Agata-wound Skin Appearance) Assessed, Scarring -Moisture (Agata-wound Skin Appearance Assessed ) -Color (Agata-wound Skin Appearance) Assessed -Temperature (Agata-wound Skin No Abnormality Appearance) (Pt Warm) -Tenderness on Palpation (Agata-wound No Skin Appearance) -Ulcer Cleansing soap and water -Foul Odor after Cleansing No -Anesthetic Used 5% Lidocaine Gel [Edema Assessment] -Lower Limb Edema Present Yes -Right Calf (cm) 41.8 -Right Ankle (cm) 25.7 AUDIE - Nurse 2 - General Ulcer CM Notes Start: 01/27/19 11:44 Freq: Status: Active Protocol: Activity Type Activity Date Activity User E-Sign Co-Sign Detail Recorded Client Recorded Date Recorded By Document 01/27/19 12:20 [id number] 01/27/19 12:29 01/27/19 12:20 Wound Center Nurse 2 [Procedure/Treatment] #1- RT LAT LEG -Time 12:20 -Correct Patient Yes -Correct Side, Site, Position Yes -Correct Procedure Yes -Procedure Performed Yes -Type of Procedure Debridement -Clinical Debridement Subcutaneous -Post Debridement Size (cm) - Length 7 -Post Debridement Size (cm) - Width 5.5 -Post Debridement Size (cm) - Depth 0.2 -Total Square Cm 38.5 -Wound/Ulcer Outcome Not Healed -Ulcer Cleansing Rinsed/ Irrigated with Saline -Foul Odor after Cleansing No -Bioengineered Tissue No -Bleeding Controlled with Pressure -Offloading No -Treatment Response Procedure Tolerated Well [See Physician Procedure note for Specifics] Pain Scale: 0-10 Numeric [Pain] -Is Patient Pain Free? Yes Debridement Note Post-Debridement Measurements/Treatment AUDIE - Nurse 2 - General Ulcer CM Notes Start: 01/27/19 11:44 Freq: Status: Active Protocol: Activity Type Activity Date Activity User E-Sign Co-Sign Detail Recorded Client Recorded Date Recorded By Document 01/27/19 12:20 [id number] 01/27/19 12:29 01/27/19 12:20 Wound Center Nurse 2 #1- RT LAT LEG -Time 12:20 -Correct Patient Yes -Correct Side, Site, Position Yes -Correct Procedure Yes -Procedure Performed Yes -Type of Procedure Debridement -Clinical Debridement Subcutaneous -Post Debridement Size (cm) - Length 7 -Post Debridement Size (cm) - Width 5.5 -Post Debridement Size (cm) - Depth 0.2 -Total Square Cm 38.5 -Wound/Ulcer Outcome Not Healed -Ulcer Cleansing Rinsed/ Irrigated with Saline -Foul Odor after Cleansing No -Bioengineered Tissue No -Bleeding Controlled with Pressure -Offloading No -Treatment Response Procedure Tolerated Well Pain Scale: 0-10 Numeric Is Patient Pain Free? Yes Wound debrided: #1 Right anterolateral leg. Laterality: Right Wound Grade/Stage: 2. Type of Debridement: Excisional debridement Anesthesia Used: 4% Lidocaine Solution Depth: Down to and including healthy tissue, in the subcutaneous layer Percentage of wound debrided: 100 Instrument Used: 5mm curette Tissue Removed: subcutaneous tissue. Severity: Fat Layer Exposed Amount of bleeding with debridement: Mild Bleeding Controlled with: Pressure Patient tolerated procedure well Assessment/Plan Active Problems (Last Updated 01/17/19 @ 12:33 by Tali Brownlee) Edema (Chronic) Ulcer of right lower leg (Chronic) History of right knee joint replacement (Chronic) Assessment: 1. Nonhealing hematoma ulcer right anterolateral leg. 2. Skin necrosis. 3. Cellulitis right leg. 4. History of right knee replacement. 5. s/p surgical preparation right anterolateral leg with incision and drainage and evacuation and excisional debridement infected hematoma including necrotic skin (66.5 cm2). Plan: Will stop the VAC and continue the Silver dressing changes followed by 3M two layer wrap. It can be changed later in week. She will continue Levaquin. She did not get the Zyvox as it was too expensive. The wound culture from 01/20/19 showed Pseudomonas aeroginosa, Enterococcus faecalis, Methicillin resistance Staphylococcus simulans, and MRSE. She would benefit from an advances wound healing product such as Theraskin. Will apply to insurance for that. Her Prealbumin was 12.2 on 12/06/18. Encourage nutritional supplementation with protein to help the healing process. Follow up one week. Had discussed operative debridement and skin grafting. Would reculture the wound at that time. She will think about it but right now wants to continue wound care.
[2019-02-03 09:24] VITALS: BP 162/87; PULSE 76; RESP 18; TEMP 36.2; BMI 36.8
--- NOTE | 2019-02-03 11:39 | PN.PCM_ITS ---
(1) Ulcer of right lower leg Status: Chronic Current Visit: Yes Code(s): L97.919 - Non-pressure chronic ulcer of unspecified part of right lower leg with unspecified severity (2) Edema Status: Chronic Current Visit: Yes Code(s): R60.9 - Edema, unspecified (3) History of right knee joint replacement Status: Chronic Current Visit: Yes Code(s): Z96.651 - Presence of right artificial knee joint Type of Wound Date of Service: 02/03/19 Chief Complaint: Right lower leg opened wound after hematoma evacuation History of Wound: On 12/05/18 patient underwent surgical preparation right anterolateral leg with incision and drainage and evacuation and excisional debridement infected hematoma including necrotic skin (66.5 cm2). Wound VAC place the next day. She was transfered to TCU and discharged home on 12/25/18. She completed the Clindamycin antibiotics. Today she complains of right leg pain. She denies fevers. States her appetite is good. Progress of Wound: Stable - Physical Exam Vital Signs Temp Pulse Resp BP 97.1 F L 76 18 162/87 H 02/03/19 09:24 02/03/19 09:24 02/03/19 09:24 02/03/19 09:24 General: Alert, Oriented x3, Cooperative HEENT: Atraumatic Oral: Moist Mucosa Lungs: Normal air movement Cardiovascular: Regular rate Extremities: Capillary Refill Less than 3 Seconds, Diminished Peripheral Pulses, Edema Skin: Ulcer/ Wound - right lateral leg ulcer Wound Measurements and Assessment WC - Nurse 1 - General Ulcer Measurement Start: 01/27/19 11:44 Freq: Status: Active Protocol: Activity Type Activity Date Activity User E-Sign Co-Sign Detail Recorded Client Recorded Date Recorded By Document 02/03/19 09:24 [facility] [id number] 02/03/19 09:32 [facility] 02/03/19 09:24 Wound Center Nurse 1 [Ulcer Assessment] #1- RT LAT LEG -Combined with other wound No -Current Size (cm) - Length 6.5 -Current Size (cm) - Width 4.3 -Current Size (cm) - Depth 0.2 -Total Square Cm 27.95 -Photo Taken No -Epithelialization None Present -Tunneling No -Undermining/Tunneling No -Circular Undermining No -Exudate Amt Small -Exudate Type Serosanguineous -Wound Margin Distinct, Outline Attached -Granulation Amt Large (67-100%) -Granulation Quality Red -Slough/Fibrin No -Necrosis Amt None Present (0 %) -Texture (Agata-wound Skin Appearance) Assessed, Scarring -Moisture (Agata-wound Skin Appearance Assessed,Dry/ ) Scaly -Color (Agata-wound Skin Appearance) Assessed -Temperature (Agata-wound Skin No Abnormality Appearance) (Pt Warm) -Tenderness on Palpation (Agata-wound No Skin Appearance) -Ulcer Cleansing soap and water -Foul Odor after Cleansing No -Anesthetic Used 4% Lidocaine Solution [Edema Assessment] -Lower Limb Edema Present Yes -Right Calf (cm) 37.4 -Right Ankle (cm) 24.6 - Nurse 2 - General Ulcer CM Notes Start: 01/27/19 11:44 Freq: Status: Active Protocol: Activity Type Activity Date Activity User E-Sign Co-Sign Detail Recorded Client Recorded Date Recorded By Document 02/03/19 09:52 [id number] 02/03/19 09:54 02/03/19 09:52 Wound Center Nurse 2 [Procedure/Treatment] #1- RT LAT LEG -Time 09:52 -Correct Patient Yes -Correct Side, Site, Position Yes -Correct Procedure Yes -Procedure Performed Yes -Type of Procedure Debridement -Clinical Debridement Subcutaneous -Post Debridement Size (cm) - Length 6.0 -Post Debridement Size (cm) - Width 4.2 -Post Debridement Size (cm) - Depth 0.1 -Total Square Cm 25.20 -Wound/Ulcer Outcome Not Healed -Ulcer Cleansing Rinsed/ Irrigated with Saline -Foul Odor after Cleansing No -Bioengineered Tissue No -Bleeding Controlled with Pressure -Offloading No -Treatment Response Procedure Tolerated Well [See Physician Procedure note for Specifics] Pain Scale: 0-10 Numeric [Pain] -Is Patient Pain Free? Yes Musculoskeletal: Tenderness Neurological: Neuro grossly intact Psych/Mental Status: Normal Affect, Appropriate Debridement Note Post-Debridement Measurements/Treatment - Nurse 2 - General Ulcer CM Notes Start: 01/27/19 11:44 Freq: Status: Active Protocol: Activity Type Activity Date Activity User E-Sign Co-Sign Detail Recorded Client Recorded Date Recorded By Document 01/27/19 12:20 [id number] 01/27/19 12:29 Document 02/03/19 09:52 [id number] 02/03/19 09:54 JF 01/27/19 02/03/19 12:20 09:52 Wound Center Nurse 2 #1- RT LAT LEG -Time 12:20 09:52 -Correct Patient Yes Yes -Correct Side, Site, Position Yes Yes -Correct Procedure Yes Yes -Procedure Performed Yes Yes -Type of Procedure Debridement Debridement -Clinical Debridement Subcutaneous Subcutaneous -Post Debridement Size (cm) - Length 7 6.0 -Post Debridement Size (cm) - Width 5.5 4.2 -Post Debridement Size (cm) - Depth 0.2 0.1 -Total Square Cm 38.5 25.20 -Wound/Ulcer Outcome Not Healed Not Healed -Ulcer Cleansing Rinsed/ Rinsed/ Irrigated with Irrigated with Saline Saline -Foul Odor after Cleansing No No -Bioengineered Tissue No No -Bleeding Controlled with Pressure Pressure -Offloading No No -Treatment Response Procedure Procedure Tolerated Well Tolerated Well Pain Scale: 0-10 Numeric Is Patient Pain Free? Yes Yes Wound debrided: lateral leg Laterality: Right Type of Debridement: Excisional debridement Anesthesia Used: 4% Lidocaine Solution, 5% Lidocaine Gel Depth: Down to and including healthy tissue, in the subcutaneous layer Percentage of wound debrided: 100 Instrument Used: 5mm curette Tissue Removed: subcutaneous tissue and slough Severity: Fat Layer Exposed Amount of bleeding with debridement: Mild Bleeding Controlled with: Pressure, Compression and gauze Patient tolerated procedure well Assessment/Plan Active Problems (Last Updated 01/17/19 @ 12:33 by Tali Brownlee) Edema (Chronic) Ulcer of right lower leg (Chronic) History of right knee joint replacement (Chronic) Assessment: 1. Ulcer of right lower leg. 2. Pain right leg. 3. Hematoma of right lower extremity. 4. History of right knee joint replacement Plan: Will discontinue the wound VAC due to depth has decreased. She would benefit from an advances wound healing product such as Theraskin but it was too expensive. Patient is concerned about doing daily dressing changes. Due to her increased edema, will apply aquacel silver and place 3M double wraps for compression. Will have her come in the end of the week for a nurse visit. Will order Circaids to help with edema control. Encourage increase protein intake. Follow up in one week. Code Visit 111xxx-113xx: 91004 Tiffanie subq tissue 20 sq cm/< Add On Codes: 97250 Tiffanie subq tissue add-on
[2019-02-07 10:47] VITALS: BP 160/89; PULSE 69; RESP 18; TEMP 36.4; BMI 36.8
[2019-02-10 09:50] VITALS: BP 147/79; PULSE 76; RESP 16; TEMP 36.9; BMI 36.8
--- NOTE | 2019-02-10 14:30 | PCM.WC.PN ---
(1) Ulcer of right lower leg Status: Chronic Code(s): L97.919 - Non-pressure chronic ulcer of unspecified part of right lower leg with unspecified severity (2) Edema Status: Chronic Code(s): R60.9 - Edema, unspecified (3) History of right knee joint replacement Status: Chronic Code(s): Z96.651 - Presence of right artificial knee joint Type of Wound Date of Service: 02/10/19 Chief Complaint: Nonhealing hematoma ulcer right anterolateral leg. History of Wound: Surgery 12/05/18 - Surgical preparation right anterolateral leg with incision and drainage and evacuation and excisional debridement infected hematoma including necrotic skin (66.5 cm2). Wound care - Placed Silver dressing and 3M wrap. Operative culture - Anaerobic cocci. She was placed on Cleocin and has finished them. Recent wound culture on 01/20/19 showed Pseudomonas aeroginosa, Enterococcus faecalis, Methicillin resistant Staphylococcus simulans, and MRSE. She was placed on Zyvox and Levaquin. She states the Zyvox was too expensive. She is just taking the Levaquin, will renew the Levaquin. Will order venous studies because of the amount of edema she has. She denies fever. States her appetite is good. Progress of Wound: Improved. - Physical Exam Vital Signs Temp Pulse Resp BP 98.4 F 76 16 147/79 H 02/10/19 09:50 02/10/19 09:50 02/10/19 09:50 02/10/19 09:50 General: Alert, Oriented x3, Cooperative HEENT: Atraumatic Oral: Moist Mucosa Lungs: Normal air movement Cardiovascular: Regular rate Extremities: Capillary Refill Less than 3 Seconds, Edema, Peripheral Pulses Normal Skin: Ulcer/ Wound - Right lower leg ulcer Wound Measurements and Assessment WC - Nurse 1 - General Ulcer Measurement Start: 01/27/19 11:44 Freq: Status: Active Protocol: Activity Type Activity Date Activity User E-Sign Co-Sign Detail Recorded Client Recorded Date Recorded By Document 02/10/19 09:50 MW [id number] 02/10/19 09:59 MW 02/10/19 09:50 Wound Center Nurse 1 [Ulcer Assessment] #1- RT LAT LEG -Combined with other wound No -Current Size (cm) - Length 6.0 -Current Size (cm) - Width 4.4 -Current Size (cm) - Depth 0.1 -Total Square Cm 26.40 -Date of Last Picture (Recall this 02/10/19 field) -Photo Taken Yes -Epithelialization Small 1-33% -Tunneling No -Undermining/Tunneling No -Circular Undermining No -Exudate Amt Medium -Exudate Type Serosanguineous -Wound Margin Flat & Intact -Granulation Amt Large (67-100%) -Granulation Quality Hyper- granulation,Red -Slough/Fibrin Yes -Necrosis Amt Small (1-33%) -Necrotic Tissue Type Adherent Slough -Structure Exposed N/A -Texture (Agata-wound Skin Appearance) Assessed, Localized Edema ,Scarring -Moisture (Agata-wound Skin Appearance No Abnormality, ) Assessed -Color (Agata-wound Skin Appearance) No Abnormality, Assessed -Temperature (Agata-wound Skin No Abnormality Appearance) (Pt Warm) -Tenderness on Palpation (Agata-wound No Skin Appearance) -Ulcer Cleansing soap and water -Anesthetic Used 4% Lidocaine Solution,5% Lidocaine Gel [Edema Assessment] -Lower Limb Edema Present Yes -Right Calf (cm) 36.0 -Right Ankle (cm) 23.6 WC - Nurse 2 - General Ulcer CM Notes Start: 01/27/19 11:44 Freq: Status: Active Protocol: Activity Type Activity Date Activity User E-Sign Co-Sign Detail Recorded Client Recorded Date Recorded By Document 02/10/19 10:28 [email or web address] [id number] 02/10/19 10:34 [email or web address] 02/10/19 10:28 Wound Center Nurse 2 [Procedure/Treatment] #1- RT LAT LEG -Time 10:28 -Correct Patient Yes -Correct Side, Site, Position Yes -Correct Procedure Yes -Procedure Performed Yes -Type of Procedure Debridement -Clinical Debridement Subcutaneous -Post Debridement Size (cm) - Length 5.5 -Post Debridement Size (cm) - Width 3.6 -Post Debridement Size (cm) - Depth 0.1 -Total Square Cm 19.80 -Wound/Ulcer Outcome Not Healed -Ulcer Cleansing Rinsed/ Irrigated with Saline -Foul Odor after Cleansing No -Bioengineered Tissue No -Bleeding Controlled with Pressure -Offloading No -Treatment Response Procedure Tolerated Well [See Physician Procedure note for Specifics] Pain Scale: 0-10 Numeric [Pain] -Is Patient Pain Free? Yes Musculoskeletal: No Tenderness to Palpation of Joints or Extremities Neurological: Neuro grossly intact Psych/Mental Status: Normal Affect, Appropriate Debridement Note Post-Debridement Measurements/Treatment WC - Nurse 2 - General Ulcer CM Notes Start: 01/27/19 11:44 Freq: Status: Active Protocol: Activity Type Activity Date Activity User E-Sign Co-Sign Detail Recorded Client Recorded Date Recorded By Document 01/27/19 12:20 [id number] 01/27/19 12:29 Document 02/03/19 09:52 [id number] 02/03/19 09:54 Document 02/10/19 10:28 [id number] 02/10/19 10:34 01/27/19 02/03/19 02/10/19 12:20 09:52 10:28 Wound Center Nurse 2 #1- RT LAT LEG -Time 12:20 09:52 10:28 -Correct Patient Yes Yes Yes -Correct Side, Site, Position Yes Yes Yes -Correct Procedure Yes Yes Yes -Procedure Performed Yes Yes Yes -Type of Procedure Debridement Debridement Debridement -Clinical Debridement Subcutaneous Subcutaneous Subcutaneous -Post Debridement Size (cm) - Length 7 6.0 5.5 -Post Debridement Size (cm) - Width 5.5 4.2 3.6 -Post Debridement Size (cm) - Depth 0.2 0.1 0.1 -Total Square Cm 38.5 25.20 19.80 -Wound/Ulcer Outcome Not Healed Not Healed Not Healed -Ulcer Cleansing Rinsed/ Rinsed/ Rinsed/ Irrigated with Irrigated with Irrigated with Saline Saline Saline -Foul Odor after Cleansing No No No -Bioengineered Tissue No No No -Bleeding Controlled with Pressure Pressure Pressure -Offloading No No No -Treatment Response Procedure Procedure Procedure Tolerated Well Tolerated Well Tolerated Well Pain Scale: 0-10 Numeric Is Patient Pain Free? Yes Yes Yes Wound debrided: lower leg Laterality: Right Type of Debridement: Excisional debridement Anesthesia Used: 4% Lidocaine Solution, 5% Lidocaine Gel Depth: Down to and including healthy tissue, in the subcutaneous layer Percentage of wound debrided: 100 Instrument Used: 5mm curette Tissue Removed: Subcutaneous tissue and slough Severity: Fat Layer Exposed Amount of bleeding with debridement: Mild Bleeding Controlled with: Pressure, Compression and gauze Patient tolerated procedure well Assessment/Plan Assessment: 1. Nonhealing hematoma ulcer right anterolateral leg. 2. Skin necrosis. 3. Cellulitis right leg. 4. History of right knee replacement. 5. s/p surgical preparation right anterolateral leg with incision and drainage and evacuation and excisional debridement infected hematoma including necrotic skin (66.5 cm2). Plan: The VAC has been discontinued and will continue the Silver dressing changes followed by 3M two layer wrap. We will have her come in at the end of the week for a change in the 3M wrap. Will order venous studies. Will renew Levaquin. She did not get the Zyvox as it was too expensive. The wound culture from 01/20/19 showed Pseudomonas aeroginosa, Enterococcus faecalis, Methicillin resistance Staphylococcus simulans, and MRSE. She would benefit from an advances wound healing product such as Theraskin. Will apply to insurance for that. Her Prealbumin was 12.2 on 12/06/18. Encourage nutritional supplementation with protein to help the healing process. Follow up one week. Had discussed operative debridement and skin grafting. Would reculture the wound at that time. She will think about it but right now wants to continue wound care. Code Visit 111xxx-113xx: [id number] Tiffanie subq tissue 20 sq cm/<
[2019-02-17 10:17] VITALS: BP 157/80; PULSE 76; RESP 18; TEMP 36.4; BMI 36.8
--- NOTE | 2019-02-17 18:38 | PN.PCM_ITS ---
Type of Wound Date of Service: 02/17/19 Chief Complaint: Nonhealing hematoma ulcer right anterolateral leg. History of Wound: Surgery 12/05/18 - Surgical preparation right anterolateral leg with incision and drainage and evacuation and excisional debridement infected hematoma including necrotic skin (66.5 cm2). Wound care - Silver dressing and 3M wrap. Operative culture - Anaerobic cocci. She was placed on Cleocin and has finished them. Recent wound culture on 01/20/19 showed Pseudomonas ae roginosa, Enterococcus faecalis, Methicillin resistant Staphylococcus simulans, and MRSE. She was placed on Zyvox and Levaquin. She states the Zyvox was too expensive. She is just taking the Levaquin. She denies fever. States her appetite is good. She has been having issues with edema in her lower extremities. She has a vascular study scheduled for tomorrow to evaluate for chronic venous insufficiency. Progress of Wound: Improved. - Physical Exam Vital Signs Temp Pulse Resp BP 97.5 F L 76 18 157/80 H 02/17/19 10:17 02/17/19 10:17 02/17/19 10:17 02/17/19 10:17 Wound Measurements and Assessment WC - Nurse 1 - General Ulcer Measurement Start: 01/27/19 11:44 Freq: Status: Active Protocol: Activity Type Activity Date Activity User E-Sign Co-Sign Detail Recorded Client Recorded Date Recorded By Document 02/17/19 10:17 DL [id number] 02/17/19 10:25 DL 02/17/19 10:17 Wound Center Nurse 1 [Ulcer Assessment] #1- RT LAT LEG -Current Size (cm) - Length 5 -Current Size (cm) - Width 3 -Current Size (cm) - Depth 0.1 -Total Square Cm 15 -Photo Taken No -Exudate Amt Medium -Exudate Type Serosanguineous -Wound Margin Distinct, Outline Attached -Granulation Amt Large (67-100%) -Granulation Quality Red -Necrosis Amt None Present (0 %) -Structure Exposed N/A -Texture (Agata-wound Skin Appearance) Scarring -Moisture (Agata-wound Skin Appearance No Abnormality ) -Color (Agata-wound Skin Appearance) Hemosiderin Staining -Temperature (Agata-wound Skin No Abnormality Appearance) (Pt Warm) -Tenderness on Palpation (Agata-wound No Skin Appearance) -Ulcer Cleansing Wound Cleanser -Foul Odor after Cleansing No -Anesthetic Used 4% Lidocaine Solution [Edema Assessment] -Right Calf (cm) 32.5 -Right Ankle (cm) 23.8 - Nurse 2 - General Ulcer CM Notes Start: 01/27/19 11:44 Freq: Status: Active Protocol: Activity Type Activity Date Activity User E-Sign Co-Sign Detail Recorded Client Recorded Date Recorded By Document 02/17/19 10:38 [id number] 02/17/19 10:38 02/17/19 10:38 Wound Center Nurse 2 [Procedure/Treatment] #1- RT LAT LEG -Time 10:38 -Correct Patient Yes -Correct Side, Site, Position Yes -Correct Procedure Yes -Procedure Performed Yes -Type of Procedure Debridement -Clinical Debridement Subcutaneous -Post Debridement Size (cm) - Length 4.7 -Post Debridement Size (cm) - Width 3.1 -Post Debridement Size (cm) - Depth 0.1 -Total Square Cm 14.57 -Wound/Ulcer Outcome Not Healed -Ulcer Cleansing Rinsed/ Irrigated with Saline -Foul Odor after Cleansing No -Bioengineered Tissue No -Bleeding Controlled with Pressure -Offloading No -Treatment Response Procedure Tolerated Well [See Physician Procedure note for Specifics] Pain Scale: 0-10 Numeric [Pain] -Is Patient Pain Free? Yes Debridement Note Post-Debridement Measurements/Treatment - Nurse 2 - General Ulcer CM Notes Start: 01/27/19 11:44 Freq: Status: Active Protocol: Activity Type Activity Date Activity User E-Sign Co-Sign Detail Recorded Client Recorded Date Recorded By Document 01/27/19 12:20 [id number] 01/27/19 12:29 Document 02/03/19 09:52 [id number] 02/03/19 09:54 Document 02/10/19 10:28 [id number] 02/10/19 10:34 Document 02/17/19 10:38 [id number] 02/17/19 10:38 01/27/19 02/03/19 02/10/19 12:20 09:52 10:28 Wound Center Nurse 2 #1- RT LAT LEG -Time 12:20 09:52 10:28 -Correct Patient Yes Yes Yes -Correct Side, Site, Position Yes Yes Yes -Correct Procedure Yes Yes Yes -Procedure Performed Yes Yes Yes -Type of Procedure Debridement Debridement Debridement -Clinical Debridement Subcutaneous Subcutaneous Subcutaneous -Post Debridement Size (cm) - Length 7 6.0 5.5 -Post Debridement Size (cm) - Width 5.5 4.2 3.6 -Post Debridement Size (cm) - Depth 0.2 0.1 0.1 -Total Square Cm 38.5 25.20 19.80 -Wound/Ulcer Outcome Not Healed Not Healed Not Healed -Ulcer Cleansing Rinsed/ Rinsed/ Rinsed/ Irrigated with Irrigated with Irrigated with Saline Saline Saline -Foul Odor after Cleansing No No No -Bioengineered Tissue No No No -Bleeding Controlled with Pressure Pressure Pressure -Offloading No No No -Treatment Response Procedure Procedure Procedure Tolerated Well Tolerated Well Tolerated Well Pain Scale: 0-10 Numeric Is Patient Pain Free? Yes Yes Yes 02/17/19 10:38 Wound Center Nurse 2 #1- RT LAT LEG -Time 10:38 -Correct Patient Yes -Correct Side, Site, Position Yes -Correct Procedure Yes -Procedure Performed Yes -Type of Procedure Debridement -Clinical Debridement Subcutaneous -Post Debridement Size (cm) - Length 4.7 -Post Debridement Size (cm) - Width 3.1 -Post Debridement Size (cm) - Depth 0.1 -Total Square Cm 14.57 -Wound/Ulcer Outcome Not Healed -Ulcer Cleansing Rinsed/ Irrigated with Saline -Foul Odor after Cleansing No -Bioengineered Tissue No -Bleeding Controlled with Pressure -Offloading No -Treatment Response Procedure Tolerated Well Pain Scale: 0-10 Numeric Is Patient Pain Free? Yes Wound debrided: #1 Right anterolateral leg. Laterality: Right Wound Grade/Stage: 2. Type of Debridement: Excisional debridement Anesthesia Used: 4% Lidocaine Solution Depth: Down to and including healthy tissue, in the subcutaneous layer Percentage of wound debrided: 100 Instrument Used: 5mm curette Tissue Removed: subcutaneous tissue. Severity: Fat Layer Exposed Amount of bleeding with debridement: Mild Bleeding Controlled with: Pressure Patient tolerated procedure well Assessment/Plan Assessment: 1. Nonhealing hematoma ulcer right anterolateral leg. 2. Skin necrosis. 3. Cellulitis right leg. 4. History of right knee replacement. 5. s/p surgical preparation right anterolateral leg with incision and drainage and evacuation and excisional debridement infected hematoma including necrotic skin (66.5 cm2). Plan: Continue the Silver dressing changes followed by 3M two layer wrap. Since she is getting the vascular study tomorrow, will apply FELIZ wrap today and apply the 3M wrap after the vascular study is completed tomorrow. She will continue Levaquin. She did not get the Zyvox as it was too expensive. The wound culture from 01/20/19 showed Pseudomonas aeroginosa, Enterococcus faecalis, Methicillin resistance Staphylococcus simulans, and MRSE. She would benefit from an advanced wound healing product such as Theraskin. Will apply to insurance for that and the copay was too expensive for the patient. Her Prealbumin was 12.2 on 12/06/18. Encourage nutritional supplementation with protein to help the healing process. Follow up one week. Had discussed operative debridement and skin grafting. Would reculture the wound at that time. She will think about it but right now wants to continue wound care. Chronic venous insufficiency is suspected from her persistent edema in her lower extremities. A vascular study is scheduled for tomorrow, 02/18/19. If chronic venous insufficiency is seen on the study, will apply for a Circaid compression dressing.
--- NOTE | 2019-02-18 12:57 | VDLE_ITS ---
Reason For Study: Ulcer RIGHT LEFT CFV is compressible, spontaneous, phasic, CFV is compressible, spontaneous, phasic, competent and demonstrates normal competent, and demonstrates normal augmentation. augmentation. FV is compressible, spontaneous, phasic, FV is compressible, spontaneous, phasic, competent and demonstrates normal competent and demonstrates normal augmentation. augmentation. POP V is compressible, spontaneous, phasic, POP V is compressible, spontaneous, phasic, competent and demonstrates normal competent and demonstrates normal augmentation. augmentation. T/P Trunk is compressible. T/P Trunk is compressible. PTV is compressible. PTV is compressible. RT PerV is compressible. LT PerV is compressible. SFJ is competent and measures 0.83 x 1.05 cm. SFJ is INCOMPETENT and measures 1.11 x 1.11 GSV proximal thigh measures 0.38 x 0.42 cm. cm. GSV at knee measures 0.49 x 0.54 cm. GSV proximal thigh measures 0.77 x 0.79 cm. GSV INCOMPETENT throughout for greater than GSV at knee measures 0.47 x 0.47 cm. 0.5 seconds. GSV INCOMPETENT throughout for greater than INCOMPETENT plasterer journeyman noted 17 cm and 13 cm 0.5 seconds. above medial malleolus. ASV distal thigh is INCOMPETENT for greater ASV mid thigh is INCOMPETENT for greater than than 0.5 seconds and measures 0.57 x 0.61 cm. 0.5 seconds and measures 0.31 x 0.34 cm. SSV at junction is competent and measures SSV at junction is competent and measures 0.15 x 0.16 cm. 0.27 x 0.28 cm. Procedure Exam performed in department. A preliminary report was called and/or faxed to . Interpretation Summary Deep veins of the lower extremities are bilaterally patent and compressible segmentally. There is no evidence of deep vein thrombosis on either side. Valvular competence appears intact within the proximal deep venous systems bilaterally. The great saphenous veins appear bilaterally patent and compressible segmentally. The right sapheno-femoral junction is competent . The left sapheno-femoral junction is incompetent . Segmental valvular incompetence is noted within the great saphenous veins bilaterally. Small saphenous veins are patent and competent bilaterally. The right accessory saphenous vein in the right mid-thigh is incompetent. The left accessory saphenous vein in the left distal thigh is incompetent. Incompetent plasterer journeyman veins are noted in the right calf, located 13 centimeters and 17 centimeters proximal to the right medial malleolus. Ordering Physician: Angela Santiago Referring Physician: Alexi Morin Chi Performed By: Mariposa Elizabeth RVT
[2019-02-18 14:09] VITALS: BP 163/76; PULSE 63; RESP 20; TEMP 36.3; BMI 36.8
--- NOTE | 2019-02-19 15:15 | PCM.PN.BLA ---
Progress Note A vascular study was performed yesterday, 02/18/19. It showed Deep veins of the lower extremities are bilaterally patent and compressible segmentally. There is no evidence of deep vein thrombosis on either side. Valvular competence appears intact within the proximal deep venous systems bilaterally. The great saphenous veins appear bilaterally patent and compressible segmentally. The right sapheno-femoral junction is competent . The left sapheno-femoral junction is incompetent . Segmental valvular incompetence is noted within the great saphenous veins bilaterally. Small saphenous veins are patent and competent bilaterally. The right accessory saphenous vein in the right mid-thigh is incompetent. The left accessory saphenous vein in the left distal thigh is incompetent. Incompetent low pressure boiler operator veins are noted in the right calf, located 13 centimeters and 17 centimeters proximal to the right medial malleolus. Chronic venous insufficiency is seen on the study, so will apply for a Circaid compression dressing. The ICD-10 code for chronic venous insufficiency lower extremity is I87.2.
== END 2019-02-20 23:59 ==
LOC: WC 14:00
PROVIDERS: Family Provider Family Medicine Geriatric Medicine; PCP Family Medicine Geriatric Medicine; Referring Provider Surgery; Visit Provider Surgery
DX: L97.812 Non-pressure chronic ulcer of other part of right lower leg with fat layer exposed (principal); R60.0 Localized edema; S80.11XS Contusion of right lower leg, sequela; X58.XXXS Exposure to other specified factors, sequela; Z96.651 Presence of right artificial knee joint; I87.2 Venous insufficiency (chronic) (peripheral)
CPT/HCPCS: 11042; 11045; 29581; 93970; 99212; G0463

== ENCOUNTER → 2019-02-25 10:29 | Outpatient (CLI) | payer MEDICARE, SELFPAY ==
[2019-02-03 09:24] VITALS: BMI 36.8
[2019-02-24 10:33] VITALS: BMI 36.8
--- NOTE | 2019-02-25 10:31 | BI_ITS ---
MAMMOGRAPHY - BILATERAL SCREENING REASON FOR EXAM: Female, 73 years old. Routine annual screening examination. PERTINENT HISTORY: Mother with breast cancer. Aunt with breast cancer. TECHNIQUE: Digital bilateral breast ronald (3D mammographic acquisition) in the CC and MLO projections. 2-D mediolateral oblique (MLO) and craniocaudad (CC) views of both breasts were obtained. CAD: Full Field Digital Mammography with Computer Added Detection was performed. COMPARISON: Comparison is made with prior study dated February 16, 2017 and November 09, 2007. FINDINGS: Breast Composition: The breasts are heterogeneously dense, which may obscure small masses. There are no dominant masses or suspicious calcifications. 2 tissue markers are once again seen in the right breast and are unchanged. No other significant abnormalities are identified. There has been no significant change since the prior study. BI/SCREEN MAMM (CAD) W/RONALD BILAT IMPRESSION: Stable bilateral screening mammogram. Yearly follow-up mammogram recommended. (A) ASSESSMENT CATEGORY: BIRADS Category 2: Benign. A letter regarding these results will be sent to the patient by the facility within 30 days. Approximately 10% of breast cancers are not detected by mammography. A normal mammogram should not delay biopsy of a clinically suspicious abnormality. [id number] Electronically Signed: Peter Davidson, at 13:22 EST , Service support ,
== END ==
PROVIDERS: Family Provider Family Medicine Geriatric Medicine; PCP Family Medicine Geriatric Medicine; Referring Provider Family Medicine Geriatric Medicine; Visit Provider Family Medicine Geriatric Medicine
DX: Z12.31 Encounter for screening mammogram for malignant neoplasm of breast (principal); Z80.3 Family history of malignant neoplasm of breast
CPT/HCPCS: 77063; 77067

== ENCOUNTER 2019-03-17 10:45 | Outpatient (RCR) | payer MEDICARE, SELFPAY ==
[2019-02-21 01:07] VITALS: BP 163/76; PULSE 63; RESP 20; TEMP 36.3
[2019-02-24 10:33] VITALS: BP 146/82; PULSE 78; RESP 20; TEMP 36.6; BMI 36.8
--- NOTE | 2019-02-24 13:41 | PN.PCM_ITS ---
(1) Ulcer of right lower leg Status: Chronic Code(s): L97.919 - Non-pressure chronic ulcer of unspecified part of right lower leg with unspecified severity (2) Chronic venous insufficiency of lower extremity Status: Chronic Code(s): I87.2 - Venous insufficiency (chronic) (peripheral) (3) Edema Status: Chronic Code(s): R60.9 - Edema, unspecified Type of Wound Date of Service: 02/24/19 Chief Complaint: Nonhealing hematoma ulcer right anterolateral leg. History of Wound: Surgery 12/05/18 - Surgical preparation right anterolateral leg with incision and drainage and evacuation and excisional debridement infected hematoma including necrotic skin (66.5 cm2). Wound care - Silver dressing and will start circaid on the right. Will use 3M double wrap on the left to help reduce the amount of edema in her left leg. Operative culture - Anaerobic cocci. She was placed on Cleocin and has finished them. Recent wound culture on 01/20/19 showed Pseudomonas aeroginosa, Enterococcus faecalis, Methicillin resistant Staphylococcus simulans, and MRSE. She was placed on Zyvox and Levaquin. She states the Zyvox was too expensive. She is just taking the Levaquin. She denies fever. States her appetite is good. She has been having issues with edema in her lower extremities. 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 Segmental valvular incompetence is noted within the great saphenous veins bilaterally. The right accessory saphenous vein in the right mid-thigh is incompetent. The left accessory saphenous vein in the left distal thigh is incompetent. Incompetent religious activities director veins are noted in the right calf, located 13 centimeters and 17 centimeters proximal to the right medial malleolus. Progress of Wound: Improved. - Physical Exam Vital Signs Temp Pulse Resp BP 97.8 F 78 20 H 146/82 H 02/24/19 10:33 02/24/19 10:33 02/24/19 10:33 02/24/19 10:33 General: Alert, Oriented x3, Cooperative HEENT: Atraumatic Oral: Moist Mucosa Lungs: Normal air movement Cardiovascular: Regular rate Extremities: Capillary Refill Less than 3 Seconds, Diminished Peripheral Pulses, Edema Skin: Ulcer/ Wound - right leg ulcer Wound Measurements and Assessment WC - Nurse 1 - General Ulcer Measurement Start: 02/24/19 10:33 Freq: Status: Active Protocol: Activity Type Activity Date Activity User E-Sign Co-Sign Detail Recorded Client Recorded Date Recorded By Document 02/24/19 10:33 [id number] [id number] 02/24/19 10:44 DL 02/24/19 10:33 Wound Center Nurse 1 [Ulcer Assessment] #1- RT LAT LEG -Current Size (cm) - Length 3.8 -Current Size (cm) - Width 2.8 -Current Size (cm) - Depth 0.1 -Total Square Cm 10.64 -Photo Taken No -Exudate Amt Medium -Exudate Type Serosanguineous -Wound Margin Distinct, Outline Attached -Granulation Amt Large (67-100%) -Granulation Quality Red -Necrosis Amt Small (1-33%) -Necrotic Tissue Type Adherent Slough -Structure Exposed N/A -Texture (Agata-wound Skin Appearance) Scarring -Moisture (Agata-wound Skin Appearance No Abnormality ) -Color (Agata-wound Skin Appearance) Hemosiderin Staining -Temperature (Agata-wound Skin No Abnormality Appearance) (Pt Warm) -Tenderness on Palpation (Agata-wound No Skin Appearance) -Ulcer Cleansing Wound Cleanser -Foul Odor after Cleansing No -Anesthetic Used 5% Lidocaine Gel [Edema Assessment] -Right Calf (cm) 32.5 -Right Ankle (cm) 22.8 - Nurse 2 - General Ulcer CM Notes Start: 02/24/19 10:33 Freq: Status: Active Protocol: Activity Type Activity Date Activity User E-Sign Co-Sign Detail Recorded Client Recorded Date Recorded By Document 02/24/19 10:56 [email or web address] [id number] 02/24/19 11:01 [email or web address] 02/24/19 10:56 Wound Center Nurse 2 [Procedure/Treatment] #1- RT LAT LEG -Time 10:56 -Correct Patient Yes -Correct Side, Site, Position Yes -Correct Procedure Yes -Procedure Performed Yes -Type of Procedure Debridement -Clinical Debridement Subcutaneous -Post Debridement Size (cm) - Length 4.5 -Post Debridement Size (cm) - Width 3.0 -Post Debridement Size (cm) - Depth 0.2 -Total Square Cm 13.50 -Wound/Ulcer Outcome Not Healed -Ulcer Cleansing Rinsed/ Irrigated with Saline -Foul Odor after Cleansing No -Bioengineered Tissue No -Bleeding Controlled with Pressure -Offloading No -Treatment Response Procedure Tolerated Well [See Physician Procedure note for Specifics] Pain Scale: 0-10 Numeric [Pain] -Is Patient Pain Free? Yes Musculoskeletal: No Muscle Wasting Neurological: Neuro grossly intact Psych/Mental Status: Normal Affect, Appropriate Debridement Note Post-Debridement Measurements/Treatment WC - Nurse 2 - General Ulcer CM Notes Start: 02/24/19 10:33 Freq: Status: Active Protocol: Activity Type Activity Date Activity User E-Sign Co-Sign Detail Recorded Client Recorded Date Recorded By Document 02/24/19 10:56 [id number] 02/24/19 11:01 02/24/19 10:56 Wound Center Nurse 2 #1- RT LAT LEG -Time 10:56 -Correct Patient Yes -Correct Side, Site, Position Yes -Correct Procedure Yes -Procedure Performed Yes -Type of Procedure Debridement -Clinical Debridement Subcutaneous -Post Debridement Size (cm) - Length 4.5 -Post Debridement Size (cm) - Width 3.0 -Post Debridement Size (cm) - Depth 0.2 -Total Square Cm 13.50 -Wound/Ulcer Outcome Not Healed -Ulcer Cleansing Rinsed/ Irrigated with Saline -Foul Odor after Cleansing No -Bioengineered Tissue No -Bleeding Controlled with Pressure -Offloading No -Treatment Response Procedure Tolerated Well Pain Scale: 0-10 Numeric Is Patient Pain Free? Yes Wound debrided: leg ulcer Laterality: Right Type of Debridement: Excisional debridement Anesthesia Used: 5% Lidocaine Gel Depth: Down to and including healthy tissue, in the subcutaneous layer Percentage of wound debrided: 100 Instrument Used: 5mm curette Tissue Removed: subcutaneous tissue and slough Severity: Fat Layer Exposed Amount of bleeding with debridement: Mild Bleeding Controlled with: Pressure, Compression and gauze Patient tolerated procedure well Assessment/Plan Assessment: 1. Nonhealing hematoma ulcer right anterolateral leg. 2. Skin necrosis. 3. Cellulitis right leg. 4. History of right knee replacement. 5. s/p surgical preparation right anterolateral leg with incision and drainage and evacuation and excisional debridement infected hematoma including necrotic skin (66.5 cm2). Plan: Continue the Silver dressing changes on the right leg. Will start circaid compression on the right. Will start 3M two layer wrap on the left to decrease the edema before placing compression. Her vascular doppler showed imcompetence. Will refer her to Dr. Staples for further evaluation. The wound culture from 01/20/19 showed Pseudomonas aeroginosa, Enterococcus faecalis, Methicillin resistance Staphylococcus simulans, and MRSE. She would benefit from an advanced wound healing product such as Theraskin. Will apply to insurance for that and the copay was too expensive for the patient. Her Prealbumin was 12.2 on 12/06/18. Encourage nutritional supplementation with protein to help the healing process. Follow up one week. Code Visit [id number]: [id number] Tiffanie subq tissue 20 sq cm/<
[2019-03-03 13:45] VITALS: BP 168/79; PULSE 81; RESP 18; TEMP 36.6; BMI 36.8
--- NOTE | 2019-03-03 15:10 | PCM.WC.PN ---
(1) Ulcer of right lower leg Status: Chronic Current Visit: Yes Code(s): L97.919 - Non-pressure chronic ulcer of unspecified part of right lower leg with unspecified severity (2) Chronic venous insufficiency of lower extremity Status: Chronic Current Visit: Yes Code(s): I87.2 - Venous insufficiency (chronic) (peripheral) (3) Edema Status: Chronic Current Visit: Yes Code(s): R60.9 - Edema, unspecified Type of Wound Date of Service: 03/03/19 Chief Complaint: Nonhealing hematoma ulcer right anterolateral leg. History of Wound: Surgery 12/05/18 - Surgical preparation right anterolateral leg with incision and drainage and evacuation and excisional debridement infected hematoma including necrotic skin (66.5 cm2). Wound care - Silver dressing and will start circaid on the right. The 3M double wrap on the left helped reduce the amount of edema in her left leg, will use double Tubigrip until she is able to purchase a compression stocking for her left leg. Operative culture - Anaerobic cocci. She was placed on Cleocin and has finished them. Recent wound culture on 01/20/19 showed Pseudomonas aeroginosa, Enterococcus faecalis, Methicillin resistant Staphylococcus simulans, and MRSE. She was placed on Zyvox and Levaquin. She states the Zyvox was too expensive. She is just taking the Levaquin. She denies fever. States her appetite is good. She has been having issues with edema in her lower extremities. 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 Segmental valvular incompetence is noted within the great saphenous veins bilaterally. The right accessory saphenous vein in the right mid-thigh is incompetent. The left accessory saphenous vein in the left distal thigh is incompetent. Incompetent workforce development program director veins are noted in the right calf, located 13 centimeters and 17 centimeters proximal to the right medial malleolus. Sees Dr. Staples on 03/05/2019. Denies any fevers. States she is a good appetite. Progress of Wound: Improved. - Physical Exam Vital Signs Temp Pulse Resp BP 97.8 F 81 18 168/79 H 03/03/19 13:45 03/03/19 13:45 03/03/19 13:45 03/03/19 13:45 General: Alert, Oriented x3, Cooperative HEENT: Atraumatic Oral: Moist Mucosa Lungs: Normal air movement Cardiovascular: Regular rate Extremities: Capillary Refill Less than 3 Seconds, Diminished Peripheral Pulses, Edema - Bilateral lower leg edema is improved with the 3M double wrap on the left and circaid on right Skin: Ulcer/ Wound - ulcerright lower leg Wound Measurements and Assessment WC - Nurse 1 - General Ulcer Measurement Start: 02/24/19 10:33 Freq: Status: Active Protocol: Activity Type Activity Date Activity User E-Sign Co-Sign Detail Recorded Client Recorded Date Recorded By Document 03/03/19 13:45 MW [id number] 03/03/19 13:47 MW 03/03/19 13:45 Wound Center Nurse 1 [Ulcer Assessment] #1- RT LAT LEG -Combined with other wound No -Current Size (cm) - Length 4.0 -Current Size (cm) - Width 2.2 -Current Size (cm) - Depth 0.1 -Total Square Cm 8.80 -Photo Taken No -Epithelialization Small 1-33% -Tunneling No -Undermining/Tunneling No -Circular Undermining No -Exudate Amt Medium -Exudate Type Yellow/Green -Wound Margin Flat & Intact -Granulation Amt Large (67-100%) -Granulation Quality Hyper- granulation,Red -Slough/Fibrin Yes -Necrosis Amt Small (1-33%) -Necrotic Tissue Type Adherent Slough -Structure Exposed N/A -Texture (Agata-wound Skin Appearance) Assessed, Localized Edema ,Scarring -Moisture (Agata-wound Skin Appearance No Abnormality, ) Assessed -Color (Agata-wound Skin Appearance) No Abnormality, Assessed -Temperature (Agata-wound Skin No Abnormality Appearance) (Pt Warm) -Tenderness on Palpation (Agata-wound No Skin Appearance) -Ulcer Cleansing soap and water -Foul Odor after Cleansing No -Anesthetic Used 4% Lidocaine Solution [Edema Assessment] -Lower Limb Edema Present Yes -Right Calf (cm) 37.0 -Right Ankle (cm) 23.5 -Left Calf (cm) 39.3 -Left Ankle (cm) 23.5 WC - Nurse 2 - General Ulcer CM Notes Start: 02/24/19 10:33 Freq: Status: Active Protocol: Activity Type Activity Date Activity User E-Sign Co-Sign Detail Recorded Client Recorded Date Recorded By Document 03/03/19 13:57 [id number] [id number] 03/03/19 13:58 03/03/19 13:57 Wound Center Nurse 2 [Procedure/Treatment] #1- RT LAT LEG -Time 13:57 -Correct Patient Yes -Correct Side, Site, Position Yes -Correct Procedure Yes -Procedure Performed Yes -Type of Procedure Debridement -Clinical Debridement Subcutaneous -Post Debridement Size (cm) - Length 4.0 -Post Debridement Size (cm) - Width 2.3 -Post Debridement Size (cm) - Depth 0.1 -Total Square Cm 9.20 -Wound/Ulcer Outcome Not Healed -Ulcer Cleansing Rinsed/ Irrigated with Saline -Foul Odor after Cleansing No -Bioengineered Tissue No -Bleeding Controlled with Pressure -Offloading No -Treatment Response Procedure Tolerated Well [See Physician Procedure note for Specifics] Pain Scale: 0-10 Numeric [Pain] -Is Patient Pain Free? Yes Musculoskeletal: No Tenderness to Palpation of Joints or Extremities Neurological: Neuro grossly intact Psych/Mental Status: Normal Affect, Appropriate Debridement Note Post-Debridement Measurements/Treatment WC - Nurse 2 - General Ulcer CM Notes Start: 02/24/19 10:33 Freq: Status: Active Protocol: Activity Type Activity Date Activity User E-Sign Co-Sign Detail Recorded Client Recorded Date Recorded By Document 02/24/19 10:56 [id number] 02/24/19 11:01 Document 03/03/19 13:57 [id number] 03/03/19 13:58 02/24/19 03/03/19 10:56 13:57 Wound Center Nurse 2 #1- RT LAT LEG -Time 10:56 13:57 -Correct Patient Yes Yes -Correct Side, Site, Position Yes Yes -Correct Procedure Yes Yes -Procedure Performed Yes Yes -Type of Procedure Debridement Debridement -Clinical Debridement Subcutaneous Subcutaneous -Post Debridement Size (cm) - Length 4.5 4.0 -Post Debridement Size (cm) - Width 3.0 2.3 -Post Debridement Size (cm) - Depth 0.2 0.1 -Total Square Cm 13.50 9.20 -Wound/Ulcer Outcome Not Healed Not Healed -Ulcer Cleansing Rinsed/ Rinsed/ Irrigated with Irrigated with Saline Saline -Foul Odor after Cleansing No No -Bioengineered Tissue No No -Bleeding Controlled with Pressure Pressure -Offloading No No -Treatment Response Procedure Procedure Tolerated Well Tolerated Well Pain Scale: 0-10 Numeric Is Patient Pain Free? Yes Yes Wound debrided: Lower leg Laterality: Right Type of Debridement: Excisional debridement Anesthesia Used: 5% Lidocaine Gel Depth: Down to and including healthy tissue, in the subcutaneous layer Percentage of wound debrided: 100 Instrument Used: 7mm curette Tissue Removed: Subcutaneous tissue and slough Severity: Fat Layer Exposed Amount of bleeding with debridement: Mild Bleeding Controlled with: Pressure, Compression and gauze Patient tolerated procedure well Assessment/Plan Active Problems (Last Updated 01/17/19 @ 12:32 by Tali Brownlee) Chronic venous insufficiency of lower extremity (Chronic) Edema (Chronic) Ulcer of right lower leg (Chronic) Assessment: 1. Nonhealing hematoma ulcer right anterolateral leg. 2. Skin necrosis. 3. Cellulitis right leg. 4. History of right knee replacement. 5. s/p surgical preparation right anterolateral leg with incision and drainage and evacuation and excisional debridement infected hematoma including necrotic skin (66.5 cm2). Plan: Continue the Silver dressing changes on the right leg. The Circaid compression on the right is helping with her edema. The 3M two layer wrap on the left has decreased her edema. We will place double Tubigrip on her left until she is able to purchase compression stocking. Her vascular doppler showed imcompetence. She has an appointment with Dr. Staples for further evaluation 03/05/2019. The wound culture from 01/20/19 showed Pseudomonas aeroginosa, Enterococcus faecalis, Methicillin resistance Staphylococcus simulans, and MRSE. She would benefit from an advanced wound healing product such as Theraskin. Will apply to insurance for that and the copay was too expensive for the patient. Her Prealbumin was 12.2 on 12/06/18. Encourage nutritional supplementation with protein to help the healing process. Follow up one week. Code Visit [id number]: [id number] Tiffanie subq tissue 20 sq cm/<
[2019-03-10 13:49] VITALS: RESP 16; TEMP 36.6; BMI 36.8
--- NOTE | 2019-03-10 16:15 | PCM.WC.PN ---
(1) Ulcer of right lower leg Status: Chronic Current Visit: Yes Code(s): L97.919 - Non-pressure chronic ulcer of unspecified part of right lower leg with unspecified severity (2) Chronic venous insufficiency of lower extremity Status: Chronic Current Visit: Yes Code(s): I87.2 - Venous insufficiency (chronic) (peripheral) (3) Edema Status: Chronic Current Visit: Yes Code(s): R60.9 - Edema, unspecified Type of Wound Date of Service: 03/10/19 Chief Complaint: Nonhealing hematoma ulcer right anterolateral leg. History of Wound: Surgery 12/05/18 - Surgical preparation right anterolateral leg with incision and drainage and evacuation and excisional debridement infected hematoma including necrotic skin (66.5 cm2). Wound care - Stop Silver and start Andie with circaid on the right. She is using DELIA hose on left lower leg for compression. Operative culture - Anaerobic cocci. She was placed on Cleocin and has finished them. Recent wound culture on 01/20/19 showed Pseudomonas aeroginosa, Enterococcus faecalis, Methicillin resistant Staphylococcus simulans, and MRSE. She was placed on Zyvox and Levaquin. She states the Zyvox was too expensive. She is just taking the Levaquin. She denies fever. States her appetite is good. She has been having issues with edema in her lower extremities. 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 Segmental valvular incompetence is noted within the great saphenous veins bilaterally. The right accessory saphenous vein in the right mid-thigh is incompetent. The left accessory saphenous vein in the left distal thigh is incompetent. Incompetent adoption social worker veins are noted in the right calf, located 13 centimeters and 17 centimeters proximal to the right medial malleolus. She saw Dr. Staples on 03/05/2019 and he said there is no need for further surgery right now, will monitor and have her follow up to see him in 6 months. Denies any fevers. States she is a good appetite. Progress of Wound: Improved. - Physical Exam Vital Signs Temp Pulse Resp BP 98 F 81 16 168/79 H 03/10/19 13:49 03/03/19 13:45 03/10/19 13:49 03/03/19 13:45 General: Alert, Oriented x3, Cooperative HEENT: Atraumatic Oral: Moist Mucosa Lungs: Normal air movement Cardiovascular: Regular rate Extremities: Capillary Refill Less than 3 Seconds, Edema Skin: Ulcer/ Wound - right lower leg Wound Measurements and Assessment WC - Nurse 1 - General Ulcer Measurement Start: 02/24/19 10:33 Freq: Status: Active Protocol: Activity Type Activity Date Activity User E-Sign Co-Sign Detail Recorded Client Recorded Date Recorded By Document 03/10/19 13:49 [facility] [id number] 03/10/19 13:56 [facility] 03/10/19 13:49 Wound Center Nurse 1 [Ulcer Assessment] #1- RT LAT LEG -Combined with other wound No -Current Size (cm) - Length 3.5 -Current Size (cm) - Width 1.8 -Current Size (cm) - Depth 0.1 -Total Square Cm 6.30 -Photo Taken No -Epithelialization Small 1-33% -Tunneling No -Undermining/Tunneling No -Circular Undermining No -Exudate Amt Small -Exudate Type Serosanguineous -Wound Margin Distinct, Outline Attached -Granulation Amt Large (67-100%) -Granulation Quality Pale,[place] -Slough/Fibrin Yes -Necrosis Amt Small (1-33%) -Necrotic Tissue Type Adherent Slough -Texture (Agata-wound Skin Appearance) Assessed, Scarring -Moisture (Agata-wound Skin Appearance Assessed,Dry/ ) Scaly -Color (Agata-wound Skin Appearance) Assessed -Temperature (Agata-wound Skin No Abnormality Appearance) (Pt Warm) -Tenderness on Palpation (Gaata-wound No Skin Appearance) -Ulcer Cleansing Rinsed/ Irrigated with Saline -Foul Odor after Cleansing No -Anesthetic Used 4% Lidocaine Solution [Edema Assessment] -Lower Limb Edema Present Yes -Right Calf (cm) 35 -Right Ankle (cm) 23.9 - Nurse 2 - General Ulcer CM Notes Start: 02/24/19 10:33 Freq: Status: Active Protocol: Activity Type Activity Date Activity User E-Sign Co-Sign Detail Recorded Client Recorded Date Recorded By Document 03/10/19 14:13 [id number] 03/10/19 14:13 03/10/19 14:13 Wound Center Nurse 2 [Procedure/Treatment] #1- RT LAT LEG -Time 14:13 -Correct Patient Yes -Correct Side, Site, Position Yes -Correct Procedure Yes -Procedure Performed Yes -Type of Procedure Debridement -Clinical Debridement Subcutaneous -Post Debridement Size (cm) - Length 3 -Post Debridement Size (cm) - Width 2 -Post Debridement Size (cm) - Depth 0.1 -Total Square Cm 6 -Wound/Ulcer Outcome Not Healed -Ulcer Cleansing Rinsed/ Irrigated with Saline -Foul Odor after Cleansing No -Bioengineered Tissue No -Bleeding Controlled with Pressure -Offloading No -Treatment Response Procedure Tolerated Well [See Physician Procedure note for Specifics] Pain Scale: 0-10 Numeric [Pain] -Is Patient Pain Free? Yes Musculoskeletal: No Muscle Wasting Neurological: Neuro grossly intact Psych/Mental Status: Normal Affect, Appropriate Debridement Note Post-Debridement Measurements/Treatment WC - Nurse 2 - General Ulcer CM Notes Start: 02/24/19 10:33 Freq: Status: Active Protocol: Activity Type Activity Date Activity User E-Sign Co-Sign Detail Recorded Client Recorded Date Recorded By Document 02/24/19 10:56 [id number] 02/24/19 11:01 Document 03/03/19 13:57 [id number] 03/03/19 13:58 Document 03/10/19 14:13 [id number] 03/10/19 14:13 02/24/19 03/03/19 03/10/19 10:56 13:57 14:13 Wound Center Nurse 2 #1- RT LAT LEG -Time 10:56 13:57 14:13 -Correct Patient Yes Yes Yes -Correct Side, Site, Position Yes Yes Yes -Correct Procedure Yes Yes Yes -Procedure Performed Yes Yes Yes -Type of Procedure Debridement Debridement Debridement -Clinical Debridement Subcutaneous Subcutaneous Subcutaneous -Post Debridement Size (cm) - Length 4.5 4.0 3 -Post Debridement Size (cm) - Width 3.0 2.3 2 -Post Debridement Size (cm) - Depth 0.2 0.1 0.1 -Total Square Cm 13.50 9.20 6 -Wound/Ulcer Outcome Not Healed Not Healed Not Healed -Ulcer Cleansing Rinsed/ Rinsed/ Rinsed/ Irrigated with Irrigated with Irrigated with Saline Saline Saline -Foul Odor after Cleansing No No No -Bioengineered Tissue No No No -Bleeding Controlled with Pressure Pressure Pressure -Offloading No No No -Treatment Response Procedure Procedure Procedure Tolerated Well Tolerated Well Tolerated Well Pain Scale: 0-10 Numeric Is Patient Pain Free? Yes Yes Yes Wound debrided: lower leg Laterality: Right Type of Debridement: Excisional debridement Anesthesia Used: 5% Lidocaine Gel Depth: Down to and including healthy tissue, in the subcutaneous layer Percentage of wound debrided: 100 Instrument Used: 5mm curette Tissue Removed: subcutaneous tissue and slough Severity: Fat Layer Exposed Amount of bleeding with debridement: Mild Bleeding Controlled with: Pressure, Compression and gauze Patient tolerated procedure well Assessment/Plan Active Problems (Last Updated 01/17/19 @ 12:32 by Tali Brownlee) Chronic venous insufficiency of lower extremity (Chronic) Edema (Chronic) Ulcer of right lower leg (Chronic) Assessment: 1. Nonhealing hematoma ulcer right anterolateral leg. 2. Skin necrosis. 3. Cellulitis right leg. 4. History of right knee replacement. 5. s/p surgical preparation right anterolateral leg with incision and drainage and evacuation and excisional debridement infected hematoma including necrotic skin (66.5 cm2). Plan: Continue the Silver dressing changes on the right leg. The Circaid compression on the right is helping with her edema. The 3M two layer wrap on the left has decreased her edema. We will place double Tubigrip on her left until she is able to purchase compression stocking. Her vascular doppler showed imcompetence. She has an appointment with Dr. Staples for further evaluation 03/05/2019. The wound culture from 01/20/19 showed Pseudomonas aeroginosa, Enterococcus faecalis, Methicillin resistance Staphylococcus simulans, and MRSE. She would benefit from an advanced wound healing product such as Theraskin. Will apply to insurance for that and the copay was too expensive for the patient. Her Prealbumin was 12.2 on 12/06/18. Encourage nutritional supplementation with protein to help the healing process. Follow up one week. Code Visit 111xxx-[id number]: [id number] Tiffanie subq tissue 20 sq cm/<
[2019-03-17 10:40] VITALS: BP 152/80; PULSE 80; RESP 18; TEMP 37.2; BMI 36.8
--- NOTE | 2019-03-17 14:03 | PCM.WC.PN ---
(1) Ulcer of right lower leg Status: Chronic Code(s): L97.919 - Non-pressure chronic ulcer of unspecified part of right lower leg with unspecified severity (2) Chronic venous insufficiency of lower extremity Status: Chronic Code(s): I87.2 - Venous insufficiency (chronic) (peripheral) (3) Edema Status: Chronic Code(s): R60.9 - Edema, unspecified Type of Wound Date of Service: 03/17/19 Chief Complaint: Nonhealing hematoma ulcer right anterolateral leg. History of Wound: Surgery 12/05/18 - Surgical preparation right anterolateral leg with incision and drainage and evacuation and excisional debridement infected hematoma including necrotic skin (66.5 cm2). Wound care - moistened Silver with circaid on the right. She is using DELIA hose on left lower leg for compression. Operative culture - Anaerobic cocci. She was placed on Cleocin and has finished them. Recent wound culture on 01/20/19 showed Pseudomonas aeroginosa, Enterococcus faecalis, Methicillin resistant Staphylococcus simulans, and MRSE. She was placed on Zyvox and Levaquin. She states the Zyvox was too expensive. She is just taking the Levaquin. She denies fever. States her appetite is good. She has been having issues with edema in her lower extremities. 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 Segmental valvular incompetence is noted within the great saphenous veins bilaterally. The right accessory saphenous vein in the right mid-thigh is incompetent. The left accessory saphenous vein in the left distal thigh is incompetent. Incompetent water resource consultant veins are noted in the right calf, located 13 centimeters and 17 centimeters proximal to the right medial malleolus. She saw Dr. Staples on 03/05/2019 and he said there is no need for further surgery right now, will monitor and have her follow up to see him in 6 months. Denies any fevers. States she is a good appetite. Progress of Wound: Improved. - Physical Exam Vital Signs Temp Pulse Resp BP 98.9 F 80 18 152/80 H 03/17/19 10:40 03/17/19 10:40 03/17/19 10:40 03/17/19 10:40 General: Alert, Oriented x3, Cooperative HEENT: Atraumatic Oral: Moist Mucosa Lungs: Normal air movement Cardiovascular: Regular rate Extremities: Capillary Refill Less than 3 Seconds, Edema, Peripheral Pulses Normal Skin: Ulcer/ Wound - right lower leg ulcer Wound Measurements and Assessment WC - Nurse 1 - General Ulcer Measurement Start: 02/24/19 10:33 Freq: Status: Active Protocol: Activity Type Activity Date Activity User E-Sign Co-Sign Detail Recorded Client Recorded Date Recorded By Document 03/17/19 10:40 RB [id number] 03/17/19 10:53 RB 03/17/19 10:40 Wound Center Nurse 1 [Ulcer Assessment] #1- RT LAT LEG -Combined with other wound No -Current Size (cm) - Length 2.9 -Current Size (cm) - Width 1.2 -Current Size (cm) - Depth 0.1 -Total Square Cm 3.48 -Tunneling No -Undermining/Tunneling No -Circular Undermining No -Exudate Amt Small -Exudate Type Serosanguineous -Wound Margin Flat & Intact -Granulation Amt Medium (34-66%) -Granulation Quality [place] -Slough/Fibrin Yes -Necrosis Amt Small (1-33%) -Necrotic Tissue Type Adherent Slough -Structure Exposed N/A -Texture (Agata-wound Skin Appearance) Assessed -Moisture (Agata-wound Skin Appearance Assessed ) -Color (Agata-wound Skin Appearance) Assessed -Temperature (Agata-wound Skin No Abnormality Appearance) (Pt Warm) -Tenderness on Palpation (Agata-wound No Skin Appearance) -Ulcer Cleansing Wound Cleanser -Foul Odor after Cleansing No -Anesthetic Used 5% Lidocaine Gel [Edema Assessment] -Lower Limb Edema Present Yes -Right Calf (cm) 38 -Right Ankle (cm) 24 - Nurse 2 - General Ulcer CM Notes Start: 02/24/19 10:33 Freq: Status: Active Protocol: Activity Type Activity Date Activity User E-Sign Co-Sign Detail Recorded Client Recorded Date Recorded By Document 03/17/19 11:29 [id number] 03/17/19 11:30 JF 03/17/19 11:29 Wound Center Nurse 2 [Procedure/Treatment] #1- RT LAT LEG -Time 11:29 -Correct Patient Yes -Correct Side, Site, Position Yes -Correct Procedure Yes -Procedure Performed Yes -Type of Procedure Debridement -Clinical Debridement Subcutaneous -Post Debridement Size (cm) - Length 2.9 -Post Debridement Size (cm) - Width 1.5 -Post Debridement Size (cm) - Depth 0.1 -Total Square Cm 4.35 -Wound/Ulcer Outcome Not Healed -Ulcer Cleansing Rinsed/ Irrigated with Saline -Foul Odor after Cleansing No -Bioengineered Tissue No -Bleeding Controlled with Pressure -Offloading No -Treatment Response Procedure Tolerated Well [See Physician Procedure note for Specifics] Pain Scale: 0-10 Numeric [Pain] -Is Patient Pain Free? Yes Musculoskeletal: No Muscle Wasting Neurological: Neuro grossly intact Psych/Mental Status: Normal Affect, Appropriate Debridement Note Post-Debridement Measurements/Treatment WC - Nurse 2 - General Ulcer CM Notes Start: 02/24/19 10:33 Freq: Status: Active Protocol: Activity Type Activity Date Activity User E-Sign Co-Sign Detail Recorded Client Recorded Date Recorded By Document 02/24/19 10:56 [id number] 02/24/19 11:01 Document 03/03/19 13:57 [id number] 03/03/19 13:58 Document 03/10/19 14:13 [id number] 03/10/19 14:13 Document 03/17/19 11:29 [id number] 03/17/19 11:30 02/24/19 03/03/19 03/10/19 10:56 13:57 14:13 Wound Center Nurse 2 #1- RT LAT LEG -Time 10:56 13:57 14:13 -Correct Patient Yes Yes Yes -Correct Side, Site, Position Yes Yes Yes -Correct Procedure Yes Yes Yes -Procedure Performed Yes Yes Yes -Type of Procedure Debridement Debridement Debridement -Clinical Debridement Subcutaneous Subcutaneous Subcutaneous -Post Debridement Size (cm) - Length 4.5 4.0 3 -Post Debridement Size (cm) - Width 3.0 2.3 2 -Post Debridement Size (cm) - Depth 0.2 0.1 0.1 -Total Square Cm 13.50 9.20 6 -Wound/Ulcer Outcome Not Healed Not Healed Not Healed -Ulcer Cleansing Rinsed/ Rinsed/ Rinsed/ Irrigated with Irrigated with Irrigated with Saline Saline Saline -Foul Odor after Cleansing No No No -Bioengineered Tissue No No No -Bleeding Controlled with Pressure Pressure Pressure -Offloading No No No -Treatment Response Procedure Procedure Procedure Tolerated Well Tolerated Well Tolerated Well Pain Scale: 0-10 Numeric Is Patient Pain Free? Yes Yes Yes 03/17/19 11:29 Wound Center Nurse 2 #1- RT LAT LEG -Time 11:29 -Correct Patient Yes -Correct Side, Site, Position Yes -Correct Procedure Yes -Procedure Performed Yes -Type of Procedure Debridement -Clinical Debridement Subcutaneous -Post Debridement Size (cm) - Length 2.9 -Post Debridement Size (cm) - Width 1.5 -Post Debridement Size (cm) - Depth 0.1 -Total Square Cm 4.35 -Wound/Ulcer Outcome Not Healed -Ulcer Cleansing Rinsed/ Irrigated with Saline -Foul Odor after Cleansing No -Bioengineered Tissue No -Bleeding Controlled with Pressure -Offloading No -Treatment Response Procedure Tolerated Well Pain Scale: 0-10 Numeric Is Patient Pain Free? Yes Wound debrided: lower leg ulcer Laterality: Right Type of Debridement: Excisional debridement Anesthesia Used: 5% Lidocaine Gel Depth: Down to and including healthy tissue, in the subcutaneous layer Percentage of wound debrided: 100 Instrument Used: 5mm curette Tissue Removed: subcutaneous tissue and slough Severity: Fat Layer Exposed Amount of bleeding with debridement: Mild Bleeding Controlled with: Pressure, Compression and gauze Patient tolerated procedure well Assessment/Plan Assessment: 1. Nonhealing hematoma ulcer right anterolateral leg. 2. Skin necrosis. 3. Cellulitis right leg. 4. History of right knee replacement. 5. s/p surgical preparation right anterolateral leg with incision and drainage and evacuation and excisional debridement infected hematoma including necrotic skin (66.5 cm2). Plan: Continue daily moistened Silver dressing changes on the right leg. The Circaid compression on the right is helping with her edema. On the left she wears a compression stocking. Her vascular doppler showed imcompetence. She has an appointment with Dr. Staples for further evaluation 03/05/2019. The wound culture from 01/20/19 showed Pseudomonas aeroginosa, Enterococcus faecalis, Methicillin resistance Staphylococcus simulans, and MRSE. She would benefit from an advanced wound healing product such as Theraskin. Will apply to insurance for that and the copay was too expensive for the patient. Her Prealbumin was 12.2 on 12/06/18. Encourage nutritional supplementation with protein to help the healing process. Follow up one week. Code Visit 111xxx-113xx: [id number] Tiffanie subq tissue 20 sq cm/<
== END 2019-03-22 23:59 ==
LOC: WC 10:45
PROVIDERS: Family Provider Family Medicine Geriatric Medicine; PCP Family Medicine Geriatric Medicine; Referring Provider Surgery; Visit Provider Surgery
DX: L97.812 Non-pressure chronic ulcer of other part of right lower leg with fat layer exposed (principal); I87.2 Venous insufficiency (chronic) (peripheral); R60.0 Localized edema; S80.11XS Contusion of right lower leg, sequela; X58.XXXS Exposure to other specified factors, sequela; Z96.651 Presence of right artificial knee joint; L03.115 Cellulitis of right lower limb
CPT/HCPCS: 11042

== ENCOUNTER 2019-04-21 09:30 | Outpatient (RCR) | payer MEDICARE, SELFPAY ==
[2019-03-23 00:50] VITALS: BP 152/80; PULSE 80; RESP 18; TEMP 37.2
[2019-03-24 10:22] VITALS: BP 175/83; PULSE 80; RESP 18; TEMP 36.3; BMI 36.8
--- NOTE | 2019-03-24 13:40 | PN.PCM_ITS ---
(1) Ulcer of right lower leg Status: Chronic Code(s): L97.919 - Non-pressure chronic ulcer of unspecified part of right lower leg with unspecified severity (2) Edema Status: Chronic Code(s): R60.9 - Edema, unspecified Type of Wound Date of Service: 03/24/19 Chief Complaint: Nonhealing hematoma ulcer right anterolateral leg. History of Wound: Surgery 12/05/18 - Surgical preparation right anterolateral leg with incision and drainage and evacuation and excisional debridement infected hematoma including necrotic skin (66.5 cm2). Wound care - stop moistened Silver and start collagen hydrogel with adaptic with circaid on the right. She is using DELIA hose on left lower leg for compression. Operative culture - Anaerobic cocci. She was placed on Cleocin and has finished them. Recent wound culture on 01/20/19 showed Pseudomonas aeroginosa, Enterococcus faecalis, Methicillin resistant Staphylococcus simulans, and MRSE. She was placed on Zyvox and Levaquin. She states the Zyvox was too expensive. She has finished the Levaquin. She denies fever. States her appetite is good. She has been having issues with edema in her lower extremities. 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 Segmental valvular incompetence is noted within the great saphenous veins bilaterally. The right accessory saphenous vein in the right mid-thigh is incompetent. The left accessory saphenous vein in the left distal thigh is incompetent. Incompetent milk delivery driver veins are noted in the right calf, located 13 centimeters and 17 centimeters proximal to the right medial malleolus. She saw Dr. Staples on 03/05/2019 and he said there is no need for further surgery right now, will monitor and have her follow up to see him in 6 months. Denies any fevers. States she is a good appetite. Progress of Wound: Improved. - Physical Exam Vital Signs Temp Pulse Resp BP 97.4 F L 80 18 175/83 H 03/24/19 10:22 03/24/19 10:22 03/24/19 10:22 03/24/19 10:22 General: Alert, Oriented x3, Cooperative HEENT: Atraumatic Oral: Moist Mucosa Lungs: Normal air movement Cardiovascular: Regular rate Extremities: Capillary Refill Less than 3 Seconds, Edema Skin: Ulcer/ Wound - right lower anterior leg Wound Measurements and Assessment - Nurse 1 - General Ulcer Measurement Start: 03/24/19 10:22 Freq: Status: Active Protocol: Activity Type Activity Date Activity User E-Sign Co-Sign Detail Recorded Client Recorded Date Recorded By Document 03/24/19 10:22 [email or web address] [id number] 03/24/19 10:26 DL 03/24/19 10:22 Wound Center Nurse 1 [Ulcer Assessment] #1- RT LAT LEG -Current Size (cm) - Length 2.1 -Current Size (cm) - Width 0.7 -Current Size (cm) - Depth 0.1 -Total Square Cm 1.47 -Photo Taken No -Exudate Amt Small -Exudate Type Serosanguineous -Wound Margin Distinct, Outline Attached -Granulation Amt Large (67-100%) -Granulation Quality Red -Necrosis Amt None Present (0 %) -Structure Exposed N/A -Texture (Agata-wound Skin Appearance) Scarring -Moisture (Agata-wound Skin Appearance No Abnormality ) -Color (Agata-wound Skin Appearance) Hemosiderin Staining -Temperature (Agata-wound Skin No Abnormality Appearance) (Pt Warm) -Tenderness on Palpation (Agata-wound No Skin Appearance) -Ulcer Cleansing Rinsed/ Irrigated with Saline -Foul Odor after Cleansing No -Anesthetic Used 4% Lidocaine Solution [Edema Assessment] -Right Calf (cm) 37.2 -Right Ankle (cm) 24 - Nurse 2 - General Ulcer CM Notes Start: 03/24/19 10:22 Freq: Status: Active Protocol: Activity Type Activity Date Activity User E-Sign Co-Sign Detail Recorded Client Recorded Date Recorded By Document 03/24/19 10:47 ALFONSO [id number] 03/24/19 10:51 03/24/19 10:47 Wound Center Nurse 2 [Procedure/Treatment] #1- RT LAT LEG -Time 10:48 -Correct Patient Yes -Correct Side, Site, Position Yes -Correct Procedure Yes -Procedure Performed Yes -Type of Procedure Debridement -Clinical Debridement Subcutaneous -Post Debridement Size (cm) - Length 2.9 -Post Debridement Size (cm) - Width 1.2 -Post Debridement Size (cm) - Depth 0.1 -Total Square Cm 3.48 -Wound/Ulcer Outcome Not Healed -Ulcer Cleansing Rinsed/ Irrigated with Saline -Foul Odor after Cleansing No -Bioengineered Tissue No -Bleeding Controlled with Pressure -Offloading No -Treatment Response Procedure Tolerated Well [See Physician Procedure note for Specifics] Pain Scale: 0-10 Numeric [Pain] -Is Patient Pain Free? Yes Musculoskeletal: No Muscle Wasting Neurological: Neuro grossly intact Psych/Mental Status: Normal Affect, Appropriate Debridement Note Post-Debridement Measurements/Treatment WC - Nurse 2 - General Ulcer CM Notes Start: 03/24/19 10:22 Freq: Status: Active Protocol: Activity Type Activity Date Activity User E-Sign Co-Sign Detail Recorded Client Recorded Date Recorded By Document 03/24/19 10:47 ALFONSO [id number] 03/24/19 10:51 ALFONSO 03/24/19 10:47 Wound Center Nurse 2 #1- RT LAT LEG -Time 10:48 -Correct Patient Yes -Correct Side, Site, Position Yes -Correct Procedure Yes -Procedure Performed Yes -Type of Procedure Debridement -Clinical Debridement Subcutaneous -Post Debridement Size (cm) - Length 2.9 -Post Debridement Size (cm) - Width 1.2 -Post Debridement Size (cm) - Depth 0.1 -Total Square Cm 3.48 -Wound/Ulcer Outcome Not Healed -Ulcer Cleansing Rinsed/ Irrigated with Saline -Foul Odor after Cleansing No -Bioengineered Tissue No -Bleeding Controlled with Pressure -Offloading No -Treatment Response Procedure Tolerated Well Pain Scale: 0-10 Numeric Is Patient Pain Free? Yes Wound debrided: anterior lower leg Laterality: Right Type of Debridement: Excisional debridement Anesthesia Used: 5% Lidocaine Gel Depth: Down to and including healthy tissue, in the subcutaneous layer Percentage of wound debrided: 100 Instrument Used: 5mm curette Tissue Removed: subcutaneous tissue and slough Severity: Fat Layer Exposed Amount of bleeding with debridement: Mild Bleeding Controlled with: Pressure Patient tolerated procedure well Assessment/Plan Assessment: 1. Nonhealing hematoma ulcer right anterolateral leg. 2. Skin necrosis. 3. Cellulitis right leg. 4. History of right knee replacement. 5. s/p surgical preparation right anterolateral leg with incision and drainage and evacuation and excisional debridement infected hematoma including necrotic skin (66.5 cm2). Plan: Stop moistened Silver dressing changes and start daily collagen hydrogel covered by adaptic on the right leg. The Circaid compression on the right is helping with her edema. On the left she wears a compression stocking. Her vascular doppler showed imcompetence. She has an appointment with Dr. Staples for further evaluation 03/05/2019. The wound culture from 01/20/19 showed Pseud omonas aeroginosa, Enterococcus faecalis, Methicillin resistance Staphylococcus simulans, and MRSE. She would benefit from an advanced wound healing product such as Theraskin. Will apply to insurance for that and the copay was too expensive for the patient. Her Prealbumin was 12.2 on 12/06/18. Encourage nutritional supplementation with protein to help the healing process. Follow up one week. Code Visit 111xxx-113xx: [id number] Tiffanie subq tissue 20 sq cm/<
[2019-03-31 10:36] VITALS: BP 166/95; PULSE 83; RESP 18; TEMP 36.8; BMI 36.8
--- NOTE | 2019-03-31 14:48 | PN.PCM_ITS ---
(1) Ulcer of right lower leg Status: Chronic Code(s): L97.919 - Non-pressure chronic ulcer of unspecified part of right lower leg with unspecified severity (2) Edema Status: Chronic Code(s): R60.9 - Edema, unspecified Type of Wound Date of Service: 03/31/19 Chief Complaint: Nonhealing hematoma ulcer right anterolateral leg. History of Wound: Surgery 12/05/18 - Surgical preparation right anterolateral leg with incision and drainage and evacuation and excisional debridement infected hematoma including necrotic skin (66.5 cm2). Wound care - collagen hydrogel with adaptic with circaid on the right. She is using DELIA hose on left lower leg for compression. Operative culture - Anaerobic cocci. She was placed on Cleocin and has finished them. Recent wound culture on 01/20/19 showed Pseudomonas aeroginosa, Enterococcus faecalis, Methicillin resistant Staphylococcus simulans, and MRSE. She was placed on Zyvox and Levaquin. She states the Zyvox was too expensive. She has finished the Levaquin. She denies fever. States her appetite is good. She has been having issues with edema in her lower extremities. 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 Segmental valvular incompetence is noted within the great saphenous veins bilaterally. The right accessory saphenous vein in the right mid-thigh is incompetent. The left accessory saphenous vein in the left distal thigh is incompetent. Incompetent secured entrance monitor veins are noted in the right calf, located 13 centimeters and 17 centimeters proximal to the right medial malleolus. She saw Dr. Staples on 03/05/2019 and he said there is no need for further surgery right now, will monitor and have her follow up to see him in 6 months. Denies any fevers. States she is a good appetite. Progress of Wound: Improved. - Physical Exam Vital Signs Temp Pulse Resp BP 98.2 F 83 18 166/95 H 03/31/19 10:36 03/31/19 10:36 03/31/19 10:36 03/31/19 10:36 General: Alert, Oriented x3 HEENT: Atraumatic Oral: Moist Mucosa Lungs: Normal air movement Cardiovascular: Regular Rhythm Extremities: Capillary Refill Less than 3 Seconds, Diminished Peripheral Pulses, Edema Skin: Ulcer/ Wound - right anterior lower leg ulcer Wound Measurements and Assessment WC - Nurse 1 - General Ulcer Measurement Start: 03/24/19 10:22 Freq: Status: Active Protocol: Activity Type Activity Date Activity User E-Sign Co-Sign Detail Recorded Client Recorded Date Recorded By Document 03/31/19 10:36 DL [id number] 03/31/19 10:42 DL 03/31/19 10:36 Wound Center Nurse 1 [Ulcer Assessment] #1- RT LAT LEG -Current Size (cm) - Length 1.6 -Current Size (cm) - Width 0.6 -Current Size (cm) - Depth 0.1 -Total Square Cm 0.96 -Photo Taken No -Exudate Amt None Present -Wound Margin Distinct, Outline Attached -Granulation Amt Large (67-100%) -Granulation Quality Red -Necrosis Amt Small (1-33%) -Necrotic Tissue Type Adherent Slough -Structure Exposed N/A -Texture (Agata-wound Skin Appearance) Scarring -Moisture (Agata-wound Skin Appearance Dry/Scaly ) -Color (Agata-wound Skin Appearance) Hemosiderin Staining -Temperature (Agata-wound Skin No Abnormality Appearance) (Pt Warm) -Tenderness on Palpation (Agata-wound No Skin Appearance) -Ulcer Cleansing Rinsed/ Irrigated with Saline -Foul Odor after Cleansing No -Anesthetic Used 5% Lidocaine Gel [Edema Assessment] -Right Calf (cm) 35 -Right Ankle (cm) 23.5 WC - Nurse 2 - General Ulcer CM Notes Start: 03/24/19 10:22 Freq: Status: Active Protocol: Activity Type Activity Date Activity User E-Sign Co-Sign Detail Recorded Client Recorded Date Recorded By Document 03/31/19 10:59 DL [id number] 03/31/19 11:00 DL 03/31/19 10:59 Wound Center Nurse 2 [Procedure/Treatment] #1- RT LAT LEG -Time 11:00 -Correct Patient Yes -Correct Side, Site, Position Yes -Correct Procedure Yes -Procedure Performed Yes -Type of Procedure Debridement -Clinical Debridement Subcutaneous -Post Debridement Size (cm) - Length 2.4 -Post Debridement Size (cm) - Width 1 -Post Debridement Size (cm) - Depth 0.1 -Total Square Cm 2.4 -Wound/Ulcer Outcome Not Healed -Ulcer Cleansing Rinsed/ Irrigated with Saline -Foul Odor after Cleansing No -Bioengineered Tissue No -Bleeding Controlled with Pressure -Offloading No -Treatment Response Procedure Tolerated Well [See Physician Procedure note for Specifics] Pain Scale: 0-10 Numeric [Pain] -Is Patient Pain Free? Yes Musculoskeletal: No Muscle Wasting Neurological: Neuro grossly intact Psych/Mental Status: Normal Affect, Appropriate Debridement Note Post-Debridement Measurements/Treatment WC - Nurse 2 - General Ulcer CM Notes Start: 03/24/19 10:22 Freq: Status: Active Protocol: Activity Type Activity Date Activity User E-Sign Co-Sign Detail Recorded Client Recorded Date Recorded By Document 03/24/19 10:47 JF [id number] 03/24/19 10:51 JF Document 03/31/19 10:59 DL [id number] 03/31/19 11:00 DL 03/24/19 03/31/19 10:47 10:59 Wound Center Nurse 2 #1- RT LAT LEG -Time 10:48 11:00 -Correct Patient Yes Yes -Correct Side, Site, Position Yes Yes -Correct Procedure Yes Yes -Procedure Performed Yes Yes -Type of Procedure Debridement Debridement -Clinical Debridement Subcutaneous Subcutaneous -Post Debridement Size (cm) - Length 2.9 2.4 -Post Debridement Size (cm) - Width 1.2 1 -Post Debridement Size (cm) - Depth 0.1 0.1 -Total Square Cm 3.48 2.4 -Wound/Ulcer Outcome Not Healed Not Healed -Ulcer Cleansing Rinsed/ Rinsed/ Irrigated with Irrigated with Saline Saline -Foul Odor after Cleansing No No -Bioengineered Tissue No No -Bleeding Controlled with Pressure Pressure -Offloading No No -Treatment Response Procedure Procedure Tolerated Well Tolerated Well Pain Scale: 0-10 Numeric Is Patient Pain Free? Yes Yes Wound debrided: anterior leg ulcer Laterality: Right Type of Debridement: Excisional debridement Anesthesia Used: 5% Lidocaine Gel Depth: Down to and including healthy tissue, in the subcutaneous layer Percentage of wound debrided: 100 Instrument Used: 5mm curette Tissue Removed: subcutaneous tissue and slough Severity: Fat Layer Exposed Amount of bleeding with debridement: Mild Bleeding Controlled with: Pressure Patient tolerated procedure well Assessment/Plan Assessment: 1. Nonhealing hematoma ulcer right anterolateral leg. 2. Skin necrosis. 3. Cellulitis right leg. 4. History of right knee replacement. 5. s/p surgical preparation right anterolateral leg with incision and drainage and evacuation and excisional debridement infected hematoma including necrotic skin (66.5 cm2). Plan: Wound care: daily collagen hydrogel covered by adaptic on the right leg. The Circaid compression on the right is helping with her edema. On the left she wears a compression stocking. Her vascular doppler showed imcompetence. She has an appointment with Dr. Staples for further evaluation 03/05/2019. The wound culture from 01/20/19 showed Pseudomonas aeroginosa, Enterococcus faecalis, Methicillin resistance Staphylococcus simulans, and MRSE. She would benefit from an advanced wound healing product such as Theraskin. Will apply to insurance for that and the copay was too expensive for the patient. Her Prealbumin was 12.2 on 12/06/18. Encourage nutritional supplementation with protein to help the healing process. Follow up one week. Code Visit 111xxx-113xx: [id number] Tiffanie subq tissue 20 sq cm/<
[2019-04-07 10:36] VITALS: BP 161/87; PULSE 77; RESP 20; TEMP 36.4; BMI 36.8
--- NOTE | 2019-04-07 17:53 | PN.PCM_ITS ---
Type of Wound Date of Service: 04/08/19 Chief Complaint: Nonhealing hematoma ulcer right anterolateral leg. History of Wound: Surgery 12/05/18 - Surgical preparation right anterolateral leg with incision and drainage and evacuation and excisional debridement infected hematoma including necrotic skin (66.5 cm2). Wound care - Collagen Hydrogel with circaid compression. Operative culture - Anaerobic cocci. She was placed on Cleocin and has finished them. Recent wound culture on 01/20/19 showed Pseudomonas aeroginosa, Enterococcus faecalis, Methicillin resistant Staphylococcus simulans, and MRSE. She was placed on Zyvox and Levaquin. She states the Zyvox was too expensive. She finished the Levaquin. She has been having issues with edema in her lower extremities. 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 Segmental valvular incompetence is noted within the great saphenous veins bilaterally. The right accessory saphenous vein in the right mid-thigh is incompetent. The left accessory saphenous vein in the left distal thigh is incompetent. Incompetent human insights lead ads marketing veins are noted in the right calf, located 13 centimeters and 17 centimeters proximal to the right medial malleolus. She saw Dr. Staples on 03/05/2019 and he said there is no need for further surgery right now, will monitor and have her follow up to see him in 6 months. Denies any fevers. States she is a good appetite. Progress of Wound: Improved. - Physical Exam Vital Signs Temp Pulse Resp BP 97.6 F L 77 20 H 161/87 H 04/07/19 10:36 04/07/19 10:36 04/07/19 10:36 04/07/19 10:36 Wound Measurements and Assessment WC - Nurse 1 - General Ulcer Measurement Start: 03/24/19 10:22 Freq: Status: Active Protocol: Activity Type Activity Date Activity User E-Sign Co-Sign Detail Recorded Client Recorded Date Recorded By Document 04/07/19 10:36 DL [id number] 04/07/19 10:40 DL 04/07/19 10:36 Wound Center Nurse 1 [Ulcer Assessment] #1- RT LAT LEG -Current Size (cm) - Length 0.5 -Current Size (cm) - Width 0.4 -Current Size (cm) - Depth 0.1 -Total Square Cm 0.20 -Photo Taken No -Exudate Amt None Present -Wound Margin Flat & Intact -Granulation Amt Small (1-33%) -Granulation Quality [place] -Necrosis Amt None Present (0 %) -Structure Exposed N/A -Texture (Agata-wound Skin Appearance) Scarring -Color (Agata-wound Skin Appearance) Hemosiderin Staining -Temperature (Agata-wound Skin No Abnormality Appearance) (Pt Warm) -Tenderness on Palpation (Agata-wound No Skin Appearance) -Ulcer Cleansing Wound Cleanser -Foul Odor after Cleansing No -Anesthetic Used 5% Lidocaine Gel [Edema Assessment] -Right Calf (cm) 35 -Right Ankle (cm) 23.2 WC - Nurse 2 - General Ulcer CM Notes Start: 03/24/19 10:22 Freq: Status: Active Protocol: Activity Type Activity Date Activity User E-Sign Co-Sign Detail Recorded Client Recorded Date Recorded By Document 04/07/19 10:56 DL [id number] 04/07/19 11:05 DL 04/07/19 10:56 Wound Center Nurse 2 [Procedure/Treatment] #1- RT LAT LEG -Time 10:56 -Correct Patient Yes -Correct Side, Site, Position Yes -Correct Procedure Yes -Procedure Performed Yes -Type of Procedure Debridement -Clinical Debridement Subcutaneous -Post Debridement Size (cm) - Length 2.0 -Post Debridement Size (cm) - Width 0.8 -Post Debridement Size (cm) - Depth 0.1 -Total Square Cm 1.60 -Wound/Ulcer Outcome Not Healed -Ulcer Cleansing Rinsed/ Irrigated with Saline -Foul Odor after Cleansing No -Bioengineered Tissue No -Bleeding Controlled with Pressure -Offloading No -Treatment Response Procedure Tolerated Well [See Physician Procedure note for Specifics] Pain Scale: 0-10 Numeric [Pain] -Is Patient Pain Free? Yes Debridement Note Post-Debridement Measurements/Treatment WC - Nurse 2 - General Ulcer CM Notes Start: 03/24/19 10:22 Freq: Status: Active Protocol: Activity Type Activity Date Activity User E-Sign Co-Sign Detail Recorded Client Recorded Date Recorded By Document 03/24/19 10:47 JF [id number] 03/24/19 10:51 JF Document 03/31/19 10:59 DL [id number] 03/31/19 11:00 DL Document 04/07/19 10:56 DL [id number] 04/07/19 11:05 DL 03/24/19 03/31/19 04/07/19 10:47 10:59 10:56 Wound Center Nurse 2 #1- RT LAT LEG -Time 10:48 11:00 10:56 -Correct Patient Yes Yes Yes -Correct Side, Site, Position Yes Yes Yes -Correct Procedure Yes Yes Yes -Procedure Performed Yes Yes Yes -Type of Procedure Debridement Debridement Debridement -Clinical Debridement Subcutaneous Subcutaneous Subcutaneous -Post Debridement Size (cm) - Length 2.9 2.4 2.0 -Post Debridement Size (cm) - Width 1.2 1 0.8 -Post Debridement Size (cm) - Depth 0.1 0.1 0.1 -Total Square Cm 3.48 2.4 1.60 -Wound/Ulcer Outcome Not Healed Not Healed Not Healed -Ulcer Cleansing Rinsed/ Rinsed/ Rinsed/ Irrigated with Irrigated with Irrigated with Saline Saline Saline -Foul Odor after Cleansing No No No -Bioengineered Tissue No No No -Bleeding Controlled with Pressure Pressure Pressure -Offloading No No No -Treatment Response Procedure Procedure Procedure Tolerated Well Tolerated Well Tolerated Well Pain Scale: 0-10 Numeric Is Patient Pain Free? Yes Yes Yes Wound debrided: #1 Right anterolateral leg. Laterality: Right Wound Grade/Stage: 2. Type of Debridement: Excisional debridement Anesthesia Used: 4% Lidocaine Solution Depth: Down to and including healthy tissue, in the subcutaneous layer Percentage of wound debrided: 100 Instrument Used: 5mm curette Tissue Removed: subcutaneous tissue. Severity: Fat Layer Exposed Amount of bleeding with debridement: Mild Bleeding Controlled with: Pressure Patient tolerated procedure well Assessment/Plan Assessment: 1. Nonhealing hematoma ulcer right anterolateral leg. 2. Skin necrosis. 3. Cellulitis right leg. 4. History of right knee replacement. 5. s/p surgical preparation right anterolateral leg with incision and drainage and evacuation and excisional debridement infected hematoma including necrotic skin (66.5 cm2). Plan: Continue Collagen Hydrogel with circaid for compression. She has finished the Levaquin. She did not get the Zyvox as it was too expensive. The wound culture from 01/20/19 showed Pseudomonas aeroginosa, Enterococcus faecalis, Methicillin resistance Staphylococcus simulans, and MRSE. She would benefit from an advanced wound healing product such as Theraskin. However, the copay was too expensive for the patient. Her Prealbumin was 12.2 on 12/06/18. Encourage nutritional supplementation with protein to help the healing process. The ulcer is almost healed. There is no indication for a skin graft at this time. Followup 2 weeks. Code Visit 111xxx-113xx: [id number] Tiffanie subq tissue 20 sq cm/< - ICD-10 - L97.912, S80.11xS, I96, L03.115, Z96.651
[2019-04-21 09:37] VITALS: BP 176/88; PULSE 85; RESP 16; TEMP 36.2; BMI 36.8
--- NOTE | 2019-04-21 13:51 | PCM.WC.PN ---
(1) Ulcer of right lower leg Status: Chronic Code(s): L97.919 - Non-pressure chronic ulcer of unspecified part of right lower leg with unspecified severity (2) Edema Status: Chronic Code(s): R60.9 - Edema, unspecified Type of Wound Date of Service: 04/21/19 Chief Complaint: Nonhealing hematoma ulcer right anterolateral leg. History of Wound: Surgery 12/05/18 - Surgical preparation right anterolateral leg with incision and drainage and evacuation and excisional debridement infected hematoma including necrotic skin (66.5 cm2). Wound care - Collagen Hydrogel covered with adaptic, with circaid compression. Operative culture - Anaerobic cocci. She was placed on Cleocin and has finished them. Recent wound culture on 01/20/19 showed Pseudomonas aeroginosa, Enterococcus faecalis, Methicillin resistant Staphylococcus simulans, and MRSE. She was placed on Zyvox and Levaquin. She states the Zyvox was too expensive. She finished the Levaquin. She has been having issues with edema in her lower extremities. 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 Segmental valvular incompetence is noted within the great saphenous veins bilaterally. The right accessory saphenous vein in the right mid-thigh is incompetent. The left accessory saphenous vein in the left distal thigh is incompetent. Incompetent mold mechanic veins are noted in the right calf, located 13 centimeters and 17 centimeters proximal to the right medial malleolus. She saw Dr. Staples on 03/05/2019 and he said there is no need for further surgery right now, will monitor and have her follow up to see him in 6 months. Denies any fevers. States she is a good appetite. Progress of Wound: Improved. - Physical Exam Vital Signs Temp Pulse Resp BP 97.1 F L 85 16 176/88 H 04/21/19 09:37 04/21/19 09:37 04/21/19 09:37 04/21/19 09:37 General: Alert, Oriented x3, Cooperative HEENT: Atraumatic Oral: Moist Mucosa Lungs: Normal air movement Cardiovascular: Regular rate Extremities: Capillary Refill Less than 3 Seconds, Edema, Peripheral Pulses Normal Skin: Ulcer/ Wound - right anterior leg ulcer Wound Measurements and Assessment WC - Nurse 1 - General Ulcer Measurement Start: 03/24/19 10:22 Freq: Status: Active Protocol: Activity Type Activity Date Activity User E-Sign Co-Sign Detail Recorded Client Recorded Date Recorded By Document 04/21/19 09:37 [facility] [id number] 04/21/19 09:42 [facility] 04/21/19 09:37 Wound Center Nurse 1 [Ulcer Assessment] #1- RT LAT LEG -Combined with other wound No -Current Size (cm) - Length 0.7 -Current Size (cm) - Width 0.3 -Current Size (cm) - Depth 0.1 -Total Square Cm 0.21 -Date of Last Picture (Recall this 04/21/19 field) -Photo Taken Yes -Epithelialization Small 1-33% -Tunneling No -Undermining/Tunneling No -Circular Undermining No -Exudate Amt None Present -Wound Margin Distinct, Outline Attached -Granulation Amt Small (1-33%) -Granulation Quality Red -Slough/Fibrin Yes -Necrosis Amt Medium (34-66%) -Necrotic Tissue Type Adherent Slough -Texture (Agata-wound Skin Appearance) Assessed, Scarring -Moisture (Agata-wound Skin Appearance Assessed,Dry/ ) Scaly -Color (Agata-wound Skin Appearance) Assessed -Temperature (Agata-wound Skin No Abnormality Appearance) (Pt Warm) -Tenderness on Palpation (Agata-wound No Skin Appearance) -Ulcer Cleansing Rinsed/ Irrigated with Saline -Foul Odor after Cleansing No -Anesthetic Used 5% Lidocaine Gel [Edema Assessment] -Lower Limb Edema Present Yes -Right Calf (cm) 38.2 -Right Ankle (cm) 25.9 WC - Nurse 2 - General Ulcer CM Notes Start: 03/24/19 10:22 Freq: Status: Active Protocol: Activity Type Activity Date Activity User E-Sign Co-Sign Detail Recorded Client Recorded Date Recorded By Document 04/21/19 10:21 [id number] 04/21/19 10:21 04/21/19 10:21 Wound Center Nurse 2 [Procedure/Treatment] #1- RT LAT LEG -Time 10:21 -Correct Patient Yes -Correct Side, Site, Position Yes -Correct Procedure Yes -Procedure Performed Yes -Type of Procedure Debridement -Clinical Debridement Subcutaneous -Post Debridement Size (cm) - Length 1.3 -Post Debridement Size (cm) - Width 0.4 -Post Debridement Size (cm) - Depth 0.1 -Total Square Cm 0.52 -Wound/Ulcer Outcome Not Healed -Ulcer Cleansing Rinsed/ Irrigated with Saline -Foul Odor after Cleansing No -Bioengineered Tissue No -Bleeding Controlled with Pressure -Offloading No -Treatment Response Procedure Tolerated Well [See Physician Procedure note for Specifics] Pain Scale: 0-10 Numeric [Pain] -Is Patient Pain Free? Yes Musculoskeletal: No Muscle Wasting Neurological: Neuro grossly intact Psych/Mental Status: Normal Affect, Appropriate Debridement Note Post-Debridement Measurements/Treatment WC - Nurse 2 - General Ulcer CM Notes Start: 03/24/19 10:22 Freq: Status: Active Protocol: Activity Type Activity Date Activity User E-Sign Co-Sign Detail Recorded Client Recorded Date Recorded By Document 03/24/19 10:47 JF [id number] 03/24/19 10:51 JF Document 03/31/19 10:59 DL [id number] 03/31/19 11:00 DL Document 04/07/19 10:56 DL [id number] 04/07/19 11:05 DL Document 04/21/19 10:21 JF [id number] 04/21/19 10:21 JF 03/24/19 03/31/19 04/07/19 10:47 10:59 10:56 Wound Center Nurse 2 #1- RT LAT LEG -Time 10:48 11:00 10:56 -Correct Patient Yes Yes Yes -Correct Side, Site, Position Yes Yes Yes -Correct Procedure Yes Yes Yes -Procedure Performed Yes Yes Yes -Type of Procedure Debridement Debridement Debridement -Clinical Debridement Subcutaneous Subcutaneous Subcutaneous -Post Debridement Size (cm) - Length 2.9 2.4 2.0 -Post Debridement Size (cm) - Width 1.2 1 0.8 -Post Debridement Size (cm) - Depth 0.1 0.1 0.1 -Total Square Cm 3.48 2.4 1.60 -Wound/Ulcer Outcome Not Healed Not Healed Not Healed -Ulcer Cleansing Rinsed/ Rinsed/ Rinsed/ Irrigated with Irrigated with Irrigated with Saline Saline Saline -Foul Odor after Cleansing No No No -Bioengineered Tissue No No No -Bleeding Controlled with Pressure Pressure Pressure -Offloading No No No -Treatment Response Procedure Procedure Procedure Tolerated Well Tolerated Well Tolerated Well Pain Scale: 0-10 Numeric Is Patient Pain Free? Yes Yes Yes 04/21/19 10:21 Wound Center Nurse 2 #1- RT LAT LEG -Time 10:21 -Correct Patient Yes -Correct Side, Site, Position Yes -Correct Procedure Yes -Procedure Performed Yes -Type of Procedure Debridement -Clinical Debridement Subcutaneous -Post Debridement Size (cm) - Length 1.3 -Post Debridement Size (cm) - Width 0.4 -Post Debridement Size (cm) - Depth 0.1 -Total Square Cm 0.52 -Wound/Ulcer Outcome Not Healed -Ulcer Cleansing Rinsed/ Irrigated with Saline -Foul Odor after Cleansing No -Bioengineered Tissue No -Bleeding Controlled with Pressure -Offloading No -Treatment Response Procedure Tolerated Well Pain Scale: 0-10 Numeric Is Patient Pain Free? Yes Wound debrided: right anterior leg ulcer Laterality: Right Type of Debridement: Excisional debridement Anesthesia Used: 5% Lidocaine Gel Depth: Down to and including healthy tissue, in the subcutaneous layer Percentage of wound debrided: 100 Instrument Used: 5mm curette Tissue Removed: subcutaneous tissue and slough Severity: Fat Layer Exposed Amount of bleeding with debridement: Mild Bleeding Controlled with: Pressure Patient tolerated procedure well Assessment/Plan Assessment: 1. Nonhealing hematoma ulcer right anterolateral leg. 2. Skin necrosis. 3. Cellulitis right leg. 4. History of right knee replacement. 5. s/p surgical preparation right anterolateral leg with incision and drainage and evacuation and excisional debridement infected hematoma including necrotic skin (66.5 cm2). Plan: Continue Collagen Hydrogel covered with adaptic and circaid for compression. She has finished the Levaquin. She did not get the Zyvox as it was too expensive. The wound culture from 01/20/19 showed Pseudomonas aeroginosa, Enterococcus faecalis, Methicillin resistance Staphylococcus simulans, and MRSE. She would benefit from an advanced wound healing product such as Theraskin. However, the copay was too expensive for the patient. Her Prealbumin was 12.2 on 12/06/18. Encourage nutritional supplementation with protein to help the healing process. The ulcer is almost healed. There is no indication for a skin graft at this time. Followup 2 weeks. Code Visit 111xxx-113xx: [id number] Tiffanie subq tissue 20 sq cm/<
== END 2019-04-22 23:59 ==
LOC: WC 09:30
PROVIDERS: Family Provider Family Medicine Geriatric Medicine; PCP Family Medicine Geriatric Medicine; Referring Provider Surgery; Visit Provider Surgery
DX: L97.812 Non-pressure chronic ulcer of other part of right lower leg with fat layer exposed (principal); R60.0 Localized edema; S80.11XS Contusion of right lower leg, sequela; X58.XXXS Exposure to other specified factors, sequela
CPT/HCPCS: 11042

== ENCOUNTER 2019-05-19 10:00 | Outpatient (RCR) | payer MEDICARE, SELFPAY ==
[2019-04-23 00:38] VITALS: BP 176/88; PULSE 85; RESP 16; TEMP 36.2
[2019-05-05 10:06] VITALS: BP 160/69; PULSE 70; RESP 18; TEMP 36.2; BMI 36.8
--- NOTE | 2019-05-05 15:17 | PN.PCM_ITS ---
(1) Chronic ulcer of right leg with fat layer exposed Status: Chronic Current Visit: Yes Code(s): L97.912 - Non-pressure chronic ulcer of unspecified part of right lower leg with fat layer exposed (2) Chronic venous insufficiency of lower extremity Status: Chronic Current Visit: Yes Code(s): I87.2 - Venous insufficiency (chronic) (peripheral) (3) Edema Status: Chronic Current Visit: Yes Code(s): R60.9 - Edema, unspecified Type of Wound Date of Service: 05/05/19 Chief Complaint: Nonhealing hematoma ulcer right anterolateral leg. History of Wound: Surgery 12/05/18 - Surgical preparation right anterolateral leg with incision and drainage and evacuation and excisional debridement infected hematoma including necrotic skin (66.5 cm2). Wound care - Collagen Hydrogel covered with adaptic, with circaid compression. Operative culture - Anaerobic cocci. She was placed on Cleocin and has finished them. Recent wound culture on 01/20/19 showed Pseudomonas aeroginosa, Enterococcus faecalis, Methicillin resistant Staphylococcus simulans, and MRSE. She was placed on Zyvox and Levaquin. She states the Zyvox was too expensive. She finished the Levaquin. She has been having issues with edema in her lower extremities. 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 Segmental valvular incompetence is noted within the great saphenous veins bilaterally. The right accessory saphenous vein in the right mid-thigh is incompetent. The left accessory saphenous vein in the left distal thigh is incompetent. Incompetent logistics solution manager veins are noted in the right calf, located 13 centimeters and 17 centimeters proximal to the right medial malleolus. She saw Dr. Staples on 03/05/2019 and he said there is no need for further surgery right now, will monitor and have her follow up to see him in 6 months. Denies any fevers. States she is a good appetite. Progress of Wound: Improved. - Physical Exam Vital Signs Temp Pulse Resp BP 97.1 F L 70 18 160/69 H 05/05/19 10:06 05/05/19 10:06 05/05/19 10:06 05/05/19 10:06 General: Alert, Oriented x3, Cooperative HEENT: Atraumatic Oral: Moist Mucosa Lungs: Normal air movement Cardiovascular: Regular rate Extremities: Capillary Refill Less than 3 Seconds, Edema - edema is much improved with her using compression on a regular basis Skin: Ulcer/ Wound - right lateral lower leg ulcer Wound Measurements and Assessment WC - Nurse 1 - General Ulcer Measurement Start: 05/05/19 10:06 Freq: Status: Active Protocol: Activity Type Activity Date Activity User E-Sign Co-Sign Detail Recorded Client Recorded Date Recorded By Document 05/05/19 10:06 BS [id number] 05/05/19 10:08 BS 05/05/19 10:06 Wound Center Nurse 1 [Ulcer Assessment] #1- RT LAT LEG -Combined with other wound No -Current Size (cm) - Length 0 -Current Size (cm) - Width 0 -Current Size (cm) - Depth 0 -Total Square Cm 0 -Date of Last Picture (Recall this 05/05/19 field) -Photo Taken Yes WC - Nurse 2 - General Ulcer CM Notes Start: 05/05/19 10:06 Freq: Status: Active Protocol: Activity Type Activity Date Activity User E-Sign Co-Sign Detail Recorded Client Recorded Date Recorded By Document 05/05/19 10:38 [id number] 05/05/19 10:40 05/05/19 10:38 Wound Center Nurse 2 [Procedure/Treatment] -Time 10:40 -Correct Patient Yes -Correct Side, Site, Position Yes -Correct Procedure Yes -Procedure Performed Yes -Type of Procedure Debridement -Clinical Debridement Subcutaneous -Post Debridement Size (cm) - Length 1.2 -Post Debridement Size (cm) - Width 0.6 -Post Debridement Size (cm) - Depth 0.2 -Total Square Cm 0.72 -Wound/Ulcer Outcome Not Healed -Ulcer Cleansing Rinsed/ Irrigated with Saline -Foul Odor after Cleansing No -Bioengineered Tissue No -Bleeding Controlled with Pressure -Offloading No -Treatment Response Procedure Tolerated Well [See Physician Procedure note for Specifics] Pain Scale: 0-10 Numeric [Pain] -Is Patient Pain Free? Yes Musculoskeletal: No Tenderness to Palpation of Joints or Extremities Neurological: Neuro grossly intact Psych/Mental Status: Normal Affect, Appropriate Debridement Note Post-Debridement Measurements/Treatment AUDIE - Nurse 2 - General Ulcer CM Notes Start: 05/05/19 10:06 Freq: Status: Active Protocol: Activity Type Activity Date Activity User E-Sign Co-Sign Detail Recorded Client Recorded Date Recorded By Document 05/05/19 10:38 [id number] 05/05/19 10:40 [email or web address] 05/05/19 10:38 Wound Center Nurse 2 #1- RT LAT LEG -Time 10:40 -Correct Patient Yes -Correct Side, Site, Position Yes -Correct Procedure Yes -Procedure Performed Yes -Type of Procedure Debridement -Clinical Debridement Subcutaneous -Post Debridement Size (cm) - Length 1.2 -Post Debridement Size (cm) - Width 0.6 -Post Debridement Size (cm) - Depth 0.2 -Total Square Cm 0.72 -Wound/Ulcer Outcome Not Healed -Ulcer Cleansing Rinsed/ Irrigated with Saline -Foul Odor after Cleansing No -Bioengineered Tissue No -Bleeding Controlled with Pressure -Offloading No -Treatment Response Procedure Tolerated Well Pain Scale: 0-10 Numeric Is Patient Pain Free? Yes Wound debrided: lateral lower leg ulcer Laterality: Right Type of Debridement: Excisional debridement Anesthesia Used: 5% Lidocaine Gel Depth: Down to and including healthy tissue, in the subcutaneous layer Percentage of wound debrided: 100 Instrument Used: 5mm curette Tissue Removed: subcutaneous tissue and slough Severity: Fat Layer Exposed Amount of bleeding with debridement: Mild Bleeding Controlled with: Pressure Patient tolerated procedure well Assessment/Plan Active Problems (Last Updated 01/17/19 @ 12:32 by Tali Brownlee) Chronic ulcer of right leg with fat layer exposed (Chronic) Chronic venous insufficiency of lower extremity (Chronic) Edema (Chronic) Assessment: 1. Nonhealing hematoma ulcer right anterolateral leg. 2. Skin necrosis. 3. Cellulitis right leg. 4. History of right knee replacement. 5. s/p surgical preparation right anterolateral leg with incision and drainage and evacuation and excisional debridement infected hematoma including necrotic skin (66.5 cm2). Plan: Continue Collagen Hydrogel covered with adaptic and circaid for compression. She has finished the Levaquin. She did not get the Zyvox as it was too expensive. The wound culture from 01/20/19 showed Pseudomonas aeroginosa, Enterococcus faecalis, Methicillin resistance Staphylococcus simulans, and MRSE . She would benefit from an advanced wound healing product such as Theraskin. However, the copay was too expensive for the patient. Her Prealbumin was 12.2 on 12/06/18. Encourage nutritional supplementation with protein to help the healing process. The ulcer is almost healed. There is no indication for a skin graft at this time. Followup 2 weeks. Code Visit 111xxx-113xx: [id number] Tiffanie subq tissue 20 sq cm/<
[2019-05-19 10:08] VITALS: BP 135/83; PULSE 96; RESP 18; TEMP 35.2; BMI 36.8
--- NOTE | 2019-05-19 13:19 | PCM.WC.PN ---
(1) Chronic ulcer of right leg with fat layer exposed Status: Chronic Code(s): L97.912 - Non-pressure chronic ulcer of unspecified part of right lower leg with fat layer exposed (2) Chronic venous insufficiency of lower extremity Status: Chronic Code(s): I87.2 - Venous insufficiency (chronic) (peripheral) (3) Edema Status: Chronic Code(s): R60.9 - Edema, unspecified Type of Wound Date of Service: 05/19/19 Chief Complaint: Nonhealing hematoma ulcer right anterolateral leg. History of Wound: Surgery 12/05/18 - Surgical preparation right anterolateral leg with incision and drainage and evacuation and excisional debridement infected hematoma including necrotic skin (66.5 cm2). Wound care - Collagen Hydrogel covered with adaptic, will try 3M double layer wrap to try to decrease her edema. Operative culture - Anaerobic cocci. She was placed on Cleocin and has finished them. Recent wound culture on 01/20/19 showed Pseudomonas aeroginosa, Enterococcus faecalis, Methicillin resistant Staphylococcus simulans, and MRSE. She was placed on Zyvox and Levaquin. She states the Zyvox was too expensive. She finished the Levaquin. She has been having issues with edema in her lower extremities. 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 Segmental valvular incompetence is noted within the great saphenous veins bilaterally. The right accessory saphenous vein in the right mid-thigh is incompetent. The left accessory saphenous vein in the left distal thigh is incompetent. Incompetent irrigation foreman veins are noted in the right calf, located 13 centimeters and 17 centimeters proximal to the right medial malleolus. She saw Dr. Staples on 03/05/2019 and he said there is no need for further surgery right now, will monitor and have her follow up to see him in 6 months. Denies any fevers. States she is a good appetite. Progress of Wound: Improved. - Physical Exam Vital Signs Temp Pulse Resp BP 95.3 F L 96 18 135/83 H 05/19/19 10:08 05/19/19 10:08 05/19/19 10:08 05/19/19 10:08 General: Alert, Oriented x3, Cooperative HEENT: Atraumatic Oral: Moist Mucosa Lungs: Normal air movement Cardiovascular: Regular rate Abdomen: Soft Extremities: Capillary Refill Less than 3 Seconds, Edema, Peripheral Pulses Normal Skin: Ulcer/ Wound - Right anterior leg ulcer Wound Measurements and Assessment WC - Nurse 1 - General Ulcer Measurement Start: 05/05/19 10:06 Freq: Status: Active Protocol: Activity Type Activity Date Activity User E-Sign Co-Sign Detail Recorded Client Recorded Date Recorded By Document 05/19/19 10:08 HARI [id number] 05/19/19 10:13 MW 05/19/19 10:08 Wound Center Nurse 1 [Ulcer Assessment] #1- RT LAT LEG -Combined with other wound No -Current Size (cm) - Length 0.8 -Current Size (cm) - Width 0.5 -Current Size (cm) - Depth 0.1 -Total Square Cm 0.40 -Photo Taken No -Epithelialization Small 1-33% -Tunneling No -Undermining/Tunneling No -Circular Undermining No -Exudate Amt None Present -Wound Margin Flat & Intact -Granulation Amt Medium (34-66%) -Granulation Quality Red -Slough/Fibrin Yes -Necrosis Amt Small (1-33%) -Necrotic Tissue Type Adherent Slough -Structure Exposed N/A -Texture (Agata-wound Skin Appearance) Assessed, Localized Edema ,Scarring -Moisture (Agata-wound Skin Appearance No Abnormality, ) Assessed -Color (Agata-wound Skin Appearance) No Abnormality, Assessed -Temperature (Agata-wound Skin No Abnormality Appearance) (Pt Warm) -Tenderness on Palpation (Agata-wound Yes Skin Appearance) -Ulcer Cleansing Rinsed/ Irrigated with Saline -Foul Odor after Cleansing No -Anesthetic Used 5% Lidocaine Gel [Edema Assessment] -Lower Limb Edema Present Yes -Right Calf (cm) 39.5 -Right Ankle (cm) 24.7 WC - Nurse 2 - General Ulcer CM Notes Start: 05/05/19 10:06 Freq: Status: Active Protocol: Activity Type Activity Date Activity User E-Sign Co-Sign Detail Recorded Client Recorded Date Recorded By Document 05/19/19 10:37 ALFONSO [id number] 05/19/19 10:38 ALFONSO 05/19/19 10:37 Wound Center Nurse 2 [Procedure/Treatment] #1- RT LAT LEG -Time 10:37 -Correct Patient Yes -Correct Side, Site, Position Yes -Correct Procedure Yes -Procedure Performed Yes -Type of Procedure Debridement -Clinical Debridement Subcutaneous -Post Debridement Size (cm) - Length 0.5 -Post Debridement Size (cm) - Width 0.2 -Post Debridement Size (cm) - Depth 0.1 -Total Square Cm 0.10 -Wound/Ulcer Outcome Not Healed -Ulcer Cleansing Rinsed/ Irrigated with Saline -Foul Odor after Cleansing No -Bioengineered Tissue No -Bleeding Controlled with Pressure -Offloading No -Treatment Response Procedure Tolerated Well [See Physician Procedure note for Specifics] Pain Scale: 0-10 Numeric [Pain] -Is Patient Pain Free? Yes Musculoskeletal: No Muscle Wasting Neurological: Neuro grossly intact Psych/Mental Status: Normal Affect, Appropriate Debridement Note Post-Debridement Measurements/Treatment WC - Nurse 2 - General Ulcer CM Notes Start: 05/05/19 10:06 Freq: Status: Active Protocol: Activity Type Activity Date Activity User E-Sign Co-Sign Detail Recorded Client Recorded Date Recorded By Document 05/05/19 10:38 [id number] 05/05/19 10:40 Document 05/19/19 10:37 [id number] 05/19/19 10:38 05/05/19 05/19/19 10:38 10:37 Wound Center Nurse 2 #1- RT LAT LEG -Time 10:40 10:37 -Correct Patient Yes Yes -Correct Side, Site, Position Yes Yes -Correct Procedure Yes Yes -Procedure Performed Yes Yes -Type of Procedure Debridement Debridement -Clinical Debridement Subcutaneous Subcutaneous -Post Debridement Size (cm) - Length 1.2 0.5 -Post Debridement Size (cm) - Width 0.6 0.2 -Post Debridement Size (cm) - Depth 0.2 0.1 -Total Square Cm 0.72 0.10 -Wound/Ulcer Outcome Not Healed Not Healed -Ulcer Cleansing Rinsed/ Rinsed/ Irrigated with Irrigated with Saline Saline -Foul Odor after Cleansing No No -Bioengineered Tissue No No -Bleeding Controlled with Pressure Pressure -Offloading No No -Treatment Response Procedure Procedure Tolerated Well Tolerated Well Pain Scale: 0-10 Numeric Is Patient Pain Free? Yes Yes Wound debrided: Anterior leg ulcer Laterality: Right Type of Debridement: Excisional debridement Anesthesia Used: 5% Lidocaine Gel Depth: Down to and including healthy tissue, in the subcutaneous layer Percentage of wound debrided: 100 Instrument Used: 3mm curette Tissue Removed: Subcutaneous tissue and slough Severity: Limited To Skin Breakdown Amount of bleeding with debridement: Mild Bleeding Controlled with: Pressure Patient tolerated procedure well Assessment/Plan Assessment: 1. Nonhealing hematoma ulcer right anterolateral leg. 2. Skin necrosis. 3. Cellulitis right leg. 4. History of right knee replacement. 5. s/p surgical preparation right anterolateral leg with incision and drainage and evacuation and excisional debridement infected hematoma including necrotic skin (66.5 cm2). Plan: Continue Collagen Hydrogel covered with adaptic. Will stop Circaid for compression and do 3M double layer wrap for 1 week to help decrease her edema. She has finished the Levaquin. She did not get the Zyvox as it was too expensive. The wound culture from 01/20/19 showed Pseudomonas aeroginosa, Enterococcus faecalis, Methicillin resistance Staphylococcus simulans, and MRSE. She would benefit from an advanced wound healing product such as Theraskin. However, the copay was too expensive for the patient. Her Prealbumin was 12.2 on 12/06/18. Encourage nutritional supplementation with protein to help the healing process. The ulcer is almost healed. There is no indication for a skin graft at this time. Followup 1 week. Code Visit 111xxx-113xx: 11409 Tiffanie subq tissue 20 sq cm/<
== END 2019-05-23 23:59 ==
LOC: WC 10:00
PROVIDERS: Family Provider Family Medicine Geriatric Medicine; PCP Family Medicine Geriatric Medicine; Referring Provider Surgery; Visit Provider Surgery
DX: I87.2 Venous insufficiency (chronic) (peripheral) (principal); L97.812 Non-pressure chronic ulcer of other part of right lower leg with fat layer exposed; R60.9 Edema, unspecified; Z96.651 Presence of right artificial knee joint; S80.11XS Contusion of right lower leg, sequela; X58.XXXS Exposure to other specified factors, sequela
CPT/HCPCS: 11042; 29581

== ENCOUNTER 2019-06-02 10:15 | Outpatient (RCR) | payer MEDICARE, SELFPAY ==
[2019-05-24 00:40] VITALS: BP 135/83; PULSE 96; RESP 18; TEMP 35.2
[2019-05-26 11:13] VITALS: BP 162/79; PULSE 73; RESP 16; BMI 36.8
--- NOTE | 2019-05-26 14:53 | PN.PCM_ITS ---
(1) Chronic ulcer of right leg with fat layer exposed Status: Chronic Code(s): L97.912 - Non-pressure chronic ulcer of unspecified part of right lower leg with fat layer exposed (2) Chronic venous insufficiency of lower extremity Status: Chronic Code(s): I87.2 - Venous insufficiency (chronic) (peripheral) (3) Edema Status: Chronic Code(s): R60.9 - Edema, unspecified Type of Wound Date of Service: 05/26/19 Chief Complaint: Nonhealing hematoma ulcer right anterolateral leg. History of Wound: Surgery 12/05/18 - Surgical preparation right anterolateral leg with incision and drainage and evacuation and excisional debridement infected hematoma including necrotic skin (66.5 cm2). Wound care - Collagen Hydrogel covered with adaptic, will try 3M double layer wrap to try to decrease her edema. Operative culture - Anaerobic cocci. She was placed on Cleocin and has finished them. Recent wound culture on 01/20/19 showed Pseudomonas aeroginosa, Enterococcus faecalis, Methicillin resistant Staphylococcus simulans, and MRSE. She was placed on Zyvox and Levaquin. She states the Zyvox was too expensive. She finished the Levaquin. She has been having issues with edema in her lower extremities. 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 Segmental valvular incompetence is noted within the great saphenous veins bilaterally. The right accessory saphenous vein in the right mid-thigh is incompetent. The left accessory saphenous vein in the left distal thigh is incompetent. Incompetent pricing strategist veins are noted in the right calf, located 13 centimeters and 17 centimeters proximal to the right medial malleolus. She saw Dr. Staples on 03/05/2019 and he said there is no need for further surgery right now, will monitor and have her follow up to see him in 6 months. Denies any fevers. States she is a good appetite. Progress of Wound: Improved. - Physical Exam Vital Signs Temp Pulse Resp BP 95.3 F L 73 16 162/79 H 05/24/19 00:40 05/26/19 11:13 05/26/19 11:13 05/26/19 11:13 General: Alert, Oriented x3, Cooperative HEENT: Atraumatic Oral: Moist Mucosa Lungs: Normal air movement Cardiovascular: Regular rate Extremities: Capillary Refill Less than 3 Seconds, Diminished Peripheral Pulses, Edema Skin: Ulcer/ Wound - Right anterior leg Wound Measurements and Assessment AUDIE - Nurse 1 - General Ulcer Measurement Start: 05/26/19 11:13 Freq: Status: Active Protocol: Activity Type Activity Date Activity User E-Sign Co-Sign Detail Recorded Client Recorded Date Recorded By Document 05/26/19 11:13 [facility] [id number] 05/26/19 11:19 [facility] 05/26/19 11:13 Wound Center Nurse 1 [Ulcer Assessment] #1- RT LAT LEG -Combined with other wound No -Current Size (cm) - Length 0.1 -Current Size (cm) - Width 0.1 -Current Size (cm) - Depth 0.1 -Total Square Cm 0.01 -Photo Taken No -Epithelialization Large 67-100% -Tunneling No -Undermining/Tunneling No -Circular Undermining No -Exudate Amt Small -Exudate Type Sanguineous -Wound Margin Distinct, Outline Attached -Granulation Amt Large (67-100%) -Granulation Quality Red -Slough/Fibrin No -Necrosis Amt None Present (0 %) -Texture (Agata-wound Skin Appearance) Assessed, Scarring -Moisture (Agata-wound Skin Appearance Assessed,Dry/ ) Scaly -Color (Agata-wound Skin Appearance) Assessed -Temperature (Agata-wound Skin No Abnormality Appearance) (Pt Warm) -Tenderness on Palpation (Agata-wound No Skin Appearance) -Ulcer Cleansing soapy water -Foul Odor after Cleansing No -Anesthetic Used 5% Lidocaine Gel [Edema Assessment] -Lower Limb Edema Present Yes -Right Calf (cm) 36.7 -Right Ankle (cm) 24.8 - Nurse 2 - General Ulcer CM Notes Start: 05/26/19 11:13 Freq: Status: Active Protocol: Activity Type Activity Date Activity User E-Sign Co-Sign Detail Recorded Client Recorded Date Recorded By Document 05/26/19 11:24 [id number] 05/26/19 11:30 05/26/19 11:24 Wound Center Nurse 2 [Procedure/Treatment] #1- RT LAT LEG -Time 11:26 -Correct Patient Yes -Correct Side, Site, Position Yes -Correct Procedure Yes -Procedure Performed Yes -Type of Procedure Debridement -Clinical Debridement Subcutaneous -Post Debridement Size (cm) - Length 0.7 -Post Debridement Size (cm) - Width 0.3 -Post Debridement Size (cm) - Depth 0.1 -Total Square Cm 0.21 -Wound/Ulcer Outcome Not Healed -Ulcer Cleansing Rinsed/ Irrigated with Saline -Foul Odor after Cleansing No -Bioengineered Tissue No -Bleeding Controlled with Pressure -Offloading No -Treatment Response Procedure Tolerated Well [See Physician Procedure note for Specifics] Pain Scale: 0-10 Numeric [Pain] -Is Patient Pain Free? Yes Musculoskeletal: No Muscle Wasting Neurological: Neuro grossly intact Psych/Mental Status: Normal Affect, Appropriate Debridement Note Post-Debridement Measurements/Treatment WC - Nurse 2 - General Ulcer CM Notes Start: 05/26/19 11:13 Freq: Status: Active Protocol: Activity Type Activity Date Activity User E-Sign Co-Sign Detail Recorded Client Recorded Date Recorded By Document 05/26/19 11:24 [id number] 05/26/19 11:30 ALFONSO 05/26/19 11:24 Wound Center Nurse 2 #1- RT LAT LEG -Time 11:26 -Correct Patient Yes -Correct Side, Site, Position Yes -Correct Procedure Yes -Procedure Performed Yes -Type of Procedure Debridement -Clinical Debridement Subcutaneous -Post Debridement Size (cm) - Length 0.7 -Post Debridement Size (cm) - Width 0.3 -Post Debridement Size (cm) - Depth 0.1 -Total Square Cm 0.21 -Wound/Ulcer Outcome Not Healed -Ulcer Cleansing Rinsed/ Irrigated with Saline -Foul Odor after Cleansing No -Bioengineered Tissue No -Bleeding Controlled with Pressure -Offloading No -Treatment Response Procedure Tolerated Well Pain Scale: 0-10 Numeric Is Patient Pain Free? Yes Wound debrided: anterio lower leg Laterality: Right Type of Debridement: Excisional debridement Anesthesia Used: 5% Lidocaine Gel Depth: Down to and including healthy tissue, in the subcutaneous layer Percentage of wound debrided: 100 Instrument Used: 3mm curette Tissue Removed: Subcutaneous tissue and slough Severity: Limited To Skin Breakdown Amount of bleeding with debridement: Mild Bleeding Controlled with: Pressure Patient tolerated procedure well Assessment/Plan Assessment: 1. Nonhealing hematoma ulcer right anterolateral leg. 2. Skin necrosis. 3. Cellulitis right leg. 4. History of right knee replacement. 5. s/p surgical preparation right anterolateral leg with incision and drainage and evacuation and excisional debridement infected hematoma including necrotic skin (66.5 cm2). Plan: Continue Collagen Hydrogel covered with adaptic. Will stop Circaid for compression and do 3M double layer wrap for 1 week to help decrease her edema. She has finished the Levaquin. She did not get the Zyvox as it was too expensive. The wound culture from 01/20/19 showed Pseudomonas aeroginosa, Enterococcus faecalis, Methicillin resistance Staphylococcus simulans, and MRSE. She would benefit from an advanced wound healing product such as Theraskin. However, the copay was too expensive for the patient. Her Prealbumin was 12.2 on 12/06/18. Encourage nutritional supplementation with protein to help the healing process. The ulcer is almost healed. There is no indication for a skin graft at this time. Followup 1 week. Code Visit 111xxx-113xx: [id number] Tiffanie subq tissue 20 sq cm/<
[2019-06-02 10:20] VITALS: BP 153/70; PULSE 91; RESP 18; TEMP 36.3; BMI 36.8
--- NOTE | 2019-06-02 12:55 | PCM.WC.PN ---
(1) Chronic ulcer of right leg with fat layer exposed Status: Chronic Current Visit: Yes Code(s): L97.912 - Non-pressure chronic ulcer of unspecified part of right lower leg with fat layer exposed (2) Chronic venous insufficiency of lower extremity Status: Chronic Current Visit: Yes Code(s): I87.2 - Venous insufficiency (chronic) (peripheral) (3) Edema Status: Chronic Current Visit: Yes Code(s): R60.9 - Edema, unspecified Type of Wound Date of Service: 06/02/19 Chief Complaint: Nonhealing hematoma ulcer right anterolateral leg. History of Wound: Surgery 12/05/18 - Surgical preparation right anterolateral leg with incision and drainage and evacuation and excisional debridement infected hematoma including necrotic skin (66.5 cm2). She is healed today. She will wear her compression stockings for compression. Operative culture - Anaerobic cocci. She was placed on Cleocin and has finished them. Recent wound culture on 01/20/19 showed Pseudomonas aeroginosa, Enterococcus faecalis, Methicillin resistant Staphylococcus simulans, and MRSE. She was placed on Zyvox and Levaquin. She states the Zyvox was too expensive. She finished the Levaquin. She has been having issues with edema in her lower extremities. 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 Segmental valvular incompetence is noted within the great saphenous veins bilaterally. The right accessory saphenous vein in the right mid-thigh is incompetent. The left accessory saphenous vein in the left distal thigh is incompetent. Incompetent exhibitions and collections manager veins are noted in the right calf, located 13 centimeters and 17 centimeters proximal to the right medial malleolus. She saw Dr. Staples on 03/05/2019 and he said there is no need for further surgery right now, will monitor and have her follow up to see him in 6 months. Denies any fevers. States she is a good appetite. Progress of Wound: She is healed today. - Physical Exam Vital Signs Temp Pulse Resp BP 97.3 F L 91 18 153/70 H 06/02/19 10:20 06/02/19 10:20 06/02/19 10:20 06/02/19 10:20 General: Alert, Oriented x3, Cooperative HEENT: Atraumatic Oral: Moist Mucosa Lungs: Normal air movement Cardiovascular: Regular rate Extremities: Capillary Refill Less than 3 Seconds, Edema - +2 Skin: Ulcer/ Wound - Right anterior lower leg ulcer is healed Wound Measurements and Assessment WC - Nurse 1 - General Ulcer Measurement Start: 05/26/19 11:13 Freq: Status: Active Protocol: Activity Type Activity Date Activity User E-Sign Co-Sign Detail Recorded Client Recorded Date Recorded By Document 06/02/19 10:20 PAWAN [id number] 06/02/19 10:23 BS 06/02/19 10:20 Wound Center Nurse 1 [Ulcer Assessment] #1- RT LAT LEG -Combined with other wound No -Current Size (cm) - Length 0.1 -Current Size (cm) - Width 0.1 -Current Size (cm) - Depth 0.1 -Total Square Cm 0.01 -Date of Last Picture (Recall this 06/02/19 field) -Photo Taken Yes -Temperature (Agata-wound Skin No Abnormality Appearance) (Pt Warm) -Tenderness on Palpation (Agata-wound No Skin Appearance) -Ulcer Cleansing Rinsed/ Irrigated with Saline -Foul Odor after Cleansing No -Anesthetic Used 5% Lidocaine Gel [Edema Assessment] -Point of measurement (cm from the 36.8 medial instep) -Point of Measurement (cm from the 25 medial instep) WC - Nurse 2 - General Ulcer CM Notes Start: 05/26/19 11:13 Freq: Status: Active Protocol: Activity Type Activity Date Activity User E-Sign Co-Sign Detail Recorded Client Recorded Date Recorded By Document 06/02/19 10:35 ALFONSO [id number] 06/02/19 10:36 ALFONSO 06/02/19 10:35 Wound Center Nurse 2 [Procedure/Treatment] #1- RT LAT LEG -Correct Patient No -Correct Side, Site, Position No -Correct Procedure No -Procedure Performed No -Post Debridement Size (cm) - Length 0 -Post Debridement Size (cm) - Width 0 -Post Debridement Size (cm) - Depth 0 -Total Square Cm 0 -Wound/Ulcer Outcome Healed- Epithelialized [See Physician Procedure note for Specifics] Pain Scale: 0-10 Numeric [Pain] -Is Patient Pain Free? Yes Musculoskeletal: No Tenderness to Palpation of Joints or Extremities Neurological: Neuro grossly intact Psych/Mental Status: Normal Affect, Appropriate Debridement Note Post-Debridement Measurements/Treatment WC - Nurse 2 - General Ulcer CM Notes Start: 05/26/19 11:13 Freq: Status: Active Protocol: Activity Type Activity Date Activity User E-Sign Co-Sign Detail Recorded Client Recorded Date Recorded By Document 05/26/19 11:24 [id number] 05/26/19 11:30 Document 06/02/19 10:35 [id number] 06/02/19 10:36 JF 05/26/19 06/02/19 11:24 10:35 Wound Center Nurse 2 #1- RT LAT LEG -Time 11:26 -Correct Patient Yes No -Correct Side, Site, Position Yes No -Correct Procedure Yes No -Procedure Performed Yes No -Type of Procedure Debridement -Clinical Debridement Subcutaneous -Post Debridement Size (cm) - Length 0.7 0 -Post Debridement Size (cm) - Width 0.3 0 -Post Debridement Size (cm) - Depth 0.1 0 -Total Square Cm 0.21 0 -Wound/Ulcer Outcome Not Healed Healed- Epithelialized -Ulcer Cleansing Rinsed/ Irrigated with Saline -Foul Odor after Cleansing No -Bioengineered Tissue No -Bleeding Controlled with Pressure -Offloading No -Treatment Response Procedure Tolerated Well Pain Scale: 0-10 Numeric Is Patient Pain Free? Yes Yes No debridement was completed today Assessment/Plan Active Problems (Last Updated 01/17/19 @ 12:32 by Tali Brownlee) Chronic ulcer of right leg with fat layer exposed (Chronic) Chronic venous insufficiency of lower extremity (Chronic) Edema (Chronic) Assessment: 1. Nonhealing hematoma ulcer right anterolateral leg. 2. Skin necrosis. 3. Cellulitis right leg. 4. History of right knee replacement. 5. s/p surgical preparation right anterolateral leg with incision and drainage and evacuation and excisional debridement infected hematoma including necrotic skin (66.5 cm2). Plan: She is healed today. Will continue Circaid for compression. Encouraged her to apply lotion daily and to massage the scarred area to help soften the scarring. Follow-up as needed. Code Visit Office Visits / Consults: [id number] OV L3 Est
== END 2019-06-21 23:59 ==
LOC: WC 10:15
PROVIDERS: Family Provider Family Medicine Geriatric Medicine; PCP Family Medicine Geriatric Medicine; Referring Provider Surgery; Visit Provider Surgery
DX: I87.2 Venous insufficiency (chronic) (peripheral) (principal); R60.9 Edema, unspecified; L97.811 Non-pressure chronic ulcer of other part of right lower leg limited to breakdown of skin; S80.11XS Contusion of right lower leg, sequela; X58.XXXS Exposure to other specified factors, sequela; Z96.651 Presence of right artificial knee joint
CPT/HCPCS: 11042; 29581; 99212; G0463

== ENCOUNTER → 2019-06-17 10:33 | Outpatient (CLI) | payer MEDICARE, SELFPAY ==
[2019-06-02 10:20] VITALS: BMI 36.8
[2019-06-17 12:36] LABS: Absolute Lymphocyte Count 0.72 X10^3/uL (0.83-4.51); Absolute Neutrophil Count 5.2 X10^3/uL (2.0-7.7); Basophil# 0.02 X10^3/uL; Basophil% 0.3 % (0-1); Eosinophil# 0.02 X10^3/uL; Eosinophils% 0.3 % (0-5); Hematocrit 44.4 % (37-47); Hemoglobin 14.2 g/dL (12.0-15.0); Lymphocyte # 0.72 X10^3/ul (4.0); Lymphocyte % 10.9 % (19-41); Mean Corpuscular Hgb 26.8 pg (27.0-32.0); Mean Corpuscular Volume 83.8 fL (81-99); Mean Platelet Vol. 10.4 fl (6.2-12.0); Monocyte# 0.62 X10^3/uL; Monocyte% 9.4 % (0-10); NRBC Flagged by Analyzer 0 % (0-5); Neutrophil # 5.21 X10^3/uL (2.7-7.7); Neutrophil % 78.5 % (47-70); Platelet Count 281 K/mm3 (150-450); RBC Distribution Width CV 13.5 % (11.6-14.6); RBC Distribution Width SD 41.2 fl (35.1-43.9); White Blood Count 6.6 K/mm3 (4.4-11.0)
[2019-06-17 12:51] LABS: Vitamin D,25 Hydroxy 18.2 ng/mL
[2019-06-17 13:04] LABS: ALB/GLOB Ratio 0.7 RATIO (0.9-2.4); AST(SGOT) 21 U/L (15-37); Alanine Aminotransfer ALT/SGPT 21 U/L (13-56); Albumin, Serum 3.4 g/dL (3.2-5.0); Alkaline Phosphatase 109 U/L (45-117); Anion Gap 6 (5-15); BUN 11 mg/dL (7-18); Calcium,Total 9.2 mg/dL (8.5-10.1); Chloride 104 mmol/L (98-107); EST Glomerular Filtration Rate 58 mL/min (>60); Est Glom Filt Rate - Afr Amer 70 mL/min (>60); Globulin 4.9 g/dL (2.2-4.2); Glucose 105 mg/dL (74-106); Potassium 3.8 mmol/L (3.5-5.1); Protein, Total 8.3 g/dL (6.4-8.2); Sodium Level 136 mmol/L (136-145)
== END ==
PROVIDERS: PCP Family Medicine Geriatric Medicine; Referring Provider Family Medicine Geriatric Medicine; Visit Provider Family Medicine Geriatric Medicine
DX: I10 Essential (primary) hypertension (principal); E55.9 Vitamin D deficiency, unspecified; R50.9 Fever, unspecified
CPT/HCPCS: 36415; 80053; 82306; 84443; 85025; 87633

== ENCOUNTER → 2019-10-28 14:30 | Outpatient (CLI) | payer MEDICARE, SELFPAY ==
--- NOTE | 2019-10-28 14:33 | RAD_ITS ---
STUDY: X-RAY - LUMBAR SPINE REASON FOR EXAM: Female, 74 years old. Lower back pain TECHNIQUE: 3 view(s) of the lumbar spine were obtained. COMPARISON: 10/26/2017 FINDINGS: There is no evidence of fracture or dislocation in the lumbar spine. There are stable moderate multilevel degenerative changes. There is stable grade 1 anterolisthesis of L4 with respect to L5. RAD/Lumbar Spine 2 or 3 Views IMPRESSION: No fracture or dislocation in the lumbar spine. Stable degenerative changes. Stable grade 1 anterolisthesis of L4 with respect to L5. Electronically Signed: Dimas Burr, at 20:22 EDT Tel , Service support ,
== END ==
PROVIDERS: PCP Family Medicine Geriatric Medicine; Referring Provider Family Medicine Geriatric Medicine; Visit Provider Family Medicine Geriatric Medicine
DX: N39.0 Urinary tract infection, site not specified (principal); M54.5 Low back pain
CPT/HCPCS: 72100; 87077; 87086; 87088; 87186

== ENCOUNTER → 2019-11-20 08:58 | Outpatient (CLI) | payer MEDICARE, SELFPAY ==
[2019-11-20 12:41] LABS: Absolute Lymphocyte Count 1.63 X10^3/uL (0.83-4.51); Absolute Neutrophil Count 4.2 X10^3/uL (2.0-7.7); Basophil# 0.03 X10^3/uL; Basophil% 0.5 % (0-1); Eosinophil# 0.38 X10^3/uL; Eosinophils% 5.7 % (0-5); Hematocrit 42.6 % (37-47); Hemoglobin 13.5 g/dL (12.0-15.0); Lymphocyte # 1.63 X10^3/ul (4.0); Lymphocyte % 24.6 % (19-41); Mean Corp Hgb Conc 31.7 g/dL (32-36); Mean Corpuscular Hgb 27.7 pg (27.0-32.0); Mean Corpuscular Volume 87.3 fL (81-99); Mean Platelet Vol. 10.2 fl (6.2-12.0); NRBC Flagged by Analyzer 0 % (0-5); Neutrophil # 4.15 X10^3/uL (2.7-7.7); Neutrophil % 62.7 % (47-70); Platelet Count 287 K/mm3 (150-450); RBC Distribution Width CV 13.7 % (11.6-14.6); RBC Distribution Width SD 43.3 fl (35.1-43.9); Red Blood Count 4.88 M/mm3 (4.2-5.4); White Blood Count 6.6 K/mm3 (4.4-11.0)
[2019-11-20 13:08] LABS: Vitamin D,25 Hydroxy 26.7 ng/mL
[2019-11-20 13:13] LABS: ALB/GLOB Ratio 0.7 RATIO (0.9-2.4); AST(SGOT) 20 U/L (15-37); Alanine Aminotransfer ALT/SGPT 20 U/L (13-56); Albumin, Serum 3.3 g/dL (3.2-5.0); Alkaline Phosphatase 110 U/L (45-117); Anion Gap 2 (5-15); BUN 17 mg/dL (7-18); BUN/Creat Ratio 19.3 RATIO (10-20); Calcium,Total 9.1 mg/dL (8.5-10.1); Chloride 107 mmol/L (98-107); Creatinine, Serum 0.88 mg/dL (0.55-1.02); EST Glomerular Filtration Rate 67 mL/min (>60); Est Glom Filt Rate - Afr Amer 81 mL/min (>60); Globulin 4.5 g/dL (2.2-4.2); Glucose 97 mg/dL (74-106); Potassium 3.8 mmol/L (3.5-5.1); Protein, Total 7.8 g/dL (6.4-8.2); Sodium Level 139 mmol/L (136-145); Thyroid Stim Hormone (TSH) 1.77 uIU/mL (0.358-3.74)
== END ==
PROVIDERS: PCP Family Medicine Geriatric Medicine; Visit Provider Family Medicine Geriatric Medicine
DX: I10 Essential (primary) hypertension (principal); E55.9 Vitamin D deficiency, unspecified
CPT/HCPCS: 36415; 80053; 82306; 84443; 85025

== ENCOUNTER → 2020-01-26 10:55 | Outpatient (CLI) | payer MEDICARE, SELFPAY ==
[2020-01-26 12:33] LABS: Absolute Lymphocyte Count 1.74 X10^3/uL (0.83-4.51); Absolute Neutrophil Count 3.7 X10^3/uL (2.0-7.7); Basophil# 0.05 X10^3/uL; Basophil% 0.8 % (0-1); Eosinophils% 3.2 % (0-5); Hematocrit 40.9 % (37-47); Hemoglobin 12.9 g/dL (12.0-15.0); Lymphocyte # 1.74 X10^3/ul (4.0); Mean Corp Hgb Conc 31.5 g/dL (32-36); Mean Corpuscular Hgb 26.7 pg (27.0-32.0); Mean Corpuscular Volume 84.5 fL (81-99); Mean Platelet Vol. 10.3 fl (6.2-12.0); Monocyte# 0.52 X10^3/uL; Monocyte% 8.4 % (0-10); NRBC Flagged by Analyzer 0 % (0-5); Neutrophil # 3.69 X10^3/uL (2.7-7.7); Neutrophil % 59.4 % (47-70); Platelet Count 292 K/mm3 (150-450); RBC Distribution Width CV 13.9 % (11.6-14.6); RBC Distribution Width SD 43.1 fl (35.1-43.9); Red Blood Count 4.84 M/mm3 (4.2-5.4); White Blood Count 6.2 K/mm3 (4.4-11.0)
[2020-01-26 13:00] LABS: Anion Gap 5 (5-15); BUN 15 mg/dL (7-18); Calcium,Total 8.9 mg/dL (8.5-10.1); Chloride 108 mmol/L (98-107); Creatinine, Serum 0.71 mg/dL (0.55-1.02); EST Glomerular Filtration Rate 85 mL/min (>60); Est Glom Filt Rate - Afr Amer 103 mL/min (>60); Glucose 87 mg/dL (74-106); Potassium 3.9 mmol/L (3.5-5.1); Sodium Level 140 mmol/L (136-145)
== END ==
PROVIDERS: PCP Family Medicine Geriatric Medicine; Visit Provider Family Medicine Geriatric Medicine
DX: I10 Essential (primary) hypertension (principal)
CPT/HCPCS: 36415; 80048; 85025

== ENCOUNTER 2020-02-02 14:30 | Outpatient (RCR) | payer MEDICARE, SELFPAY ==
--- NOTE | 2020-01-05 13:47 | HP.PTEVAL ---
Patient's Visit Information JIE HENRIQUEZ is a 74 year old F referred to Physical Therapy by Dr. Sophie Haywood DC with a diagnosis of Lumbar Spine. Date of Evaluation: 01/05/20 Physical Therapist: Estrellita Meade DPT - Visit Plan Frequency: 3x /Week Duration: 4 Weeks Plan: Focus on LE and core s/s in an aquatic setting - Subjective Patient reports that she has pain in the right side. She was told that her spine is a big S has caused her a lot of problems. Its getting worse and she is going to chiro who sent her to aquatic therapy. Did have manipulation by chiro and then e-stim and heat. Worst: 10/10 Agg: cleaning the house, bending forwards, walking. Eases: hot shower, lying on her side Best: 06/02. Sleep: disturbed- laying on her side in a curled position. Pain radiates to the middle of the back and down the right leg to the knee. Describes the pain as shooting but most of the time its just an ache. Has neuropathy so she is unsure if the N/T in the legs is from that or the back. No new N/T. Patient has had x-rays, CT Scans but no MRI on her lumbar spine. Years ago she had injections in her back at [facility]- which did not help but made her hurt worse. Has not had any falls due to her back pain- only from dehydration in April. PMHX/Meds: no changes since in chiro note. Wants to be able to climb stairs reciprocally without pulling on a hand rail. - Objective Posture: FH, RS, increased kyphosis- unable to correct and maintain given verbal and tactile cues. Gait: antalgic- decreased stance on the right LE with slow shankar. HR/TR: able with UE A. Stairs: asc/desc 8 non recip with 2 HR. SLS: weight shift but unable to SLS. ROM: Lumbar: flexion: WnL fingertips to toes, Extn: neutral, ROM and SB: WNL in pain reported, Hip: Left: 4/5 Right: 4-/5, Knee: Left: 4+/5 Right: 4/5, Ankle: 5/5 bialterally Core: poor Scap: poor. Palpatoin: tender along paraspinals and gluts on the right. Flex: HS: mild Gastroc: moderate. Special Test: SKTC: increased pain, DKTC: increased pain, Dural Signs: positive on the right, Slump: positive bilaterally - Goals Goal 1:: Patient will be I with HEP and progression Goal Time Frame: 4-6 Weeks Goal 2:: Patient will asc/desc 8 stairs recip with 1 HR Goal Time Frame: 4-6 Weeks Goal 3:: Patient will maintain proper posture t/o tx session to demo increased core s/s. Goal Time Frame: 4-6 Weeks Goal 4:: Patient will report no more than 4/10 pain for 1 week Goal Time Frame: 4-6 Weeks - Rehabilitation Potential Physical Therapy Diagnosis: Patient presents with hypomobility- she has decreased strength and muscular endurance leading to poor posture and increased pain with ADL's. Rehabilitation Potential: Fair - Anticipated Interventions Patient/Client Instruction: Educate patient on: Benefits of Fitness Program Therapeutic Exercise to Include: Strength training, Endurance training, Balance training, Body mechanics, Postural training, Flexibilty training, Gait and locomotor training, In an aquatic setting, Dynamic Lumbar Stabilization, Scapular Strength/Stabilization For the Purpose of:: To improve muscle performance and motor function Thank you for the opportunity to evaluate your patient. For Medicare and Medicare HMO plans, please review the plan of care and approve it. It will need to be FAXED BACK to us at [phone] for Medicare purposes. For Medicare only, by signing this I certify the plan of care. Please let me know if there are questions or concerns regarding this plan of care. Physician Signature: Date:
--- NOTE | 2020-02-02 14:54 | HP.PTDCSUM ---
It has been my pleasure to treat JIE HENRIQUEZ referred by Dr. Sophie Haywood, ERIKA, with the diagnosis of Lumbar Spine for a total of 9 visit(s). Discharge Date: Please see the following information for a summary of their discharge status. Subjective: Patient reports that the pool went really well- She had her last water therapy on Sunday- she is going to do silver sneakers on land- 06/02. Wants to be able to go up/down the stairs without a railing and walk further. She plans to go back to see Dr. Haywood. Lumbar Spine Pain Intensity (Out of 10): 4 RLE Pain Intensity (Out of 10): 0 % Improvement: 30 Objective/Function: Posture: FH, RS, increased kyphosis- can correct with verbal cues. Gait: antalgic- decreased stance on the right LE with slow shankar. HR/TR: able with UE A. Stairs: asc/desc 8 recip with 2 HR. SLS: weight shift but unable to SLS. ROM: Lumbar: flexion: WnL fingertips to toes, Extn: neutral, ROM and SB: WNL in pain reported, Hip: Left: 4+/5 Right: 4/5, Knee: Left: 5/5 Right: 4+/5, Ankle: 5/5 bialterally Core: fair Scap: fair. Palpatoin: tender along paraspinals and gluts on the right. Flex: HS: mild Gastroc: moderate. Special Test: SKTC: increased pain, DKTC: increased pain, Dural Signs: positive on the right, Slump: positive bilaterally Goal 1:: Patient will be I with HEP and progression Goal Progress: Goal Met Goal 2:: Patient will asc/desc 8 stairs recip with 1 HR Goal Progress: Progressing Goal 3:: Patient will maintain proper posture t/o tx session to demo increased core s/s. Goal Progress: Progressing Goal 4:: Patient will report no more than 4/10 pain for 1 week Goal Progress: Goal Met Plan: Discharge to home exercise program through [facility] If there are questions or concerns regarding this patient's physical therapy, please feel free to call me at [phone]. Thank you for the referral of this patient. Sincerely, Estrellita Meade DPT
== END 2020-02-02 19:00 | disposition home or self-care (01) ==
LOC: PT 14:30
PROVIDERS: PCP Family Medicine Geriatric Medicine; Visit Provider Chiropractor
DX: M43.10 Spondylolisthesis, site unspecified (principal); M99.02 Segmental and somatic dysfunction of thoracic region; M99.03 Segmental and somatic dysfunction of lumbar region; M99.05 Segmental and somatic dysfunction of pelvic region; M54.41 Lumbago with sciatica, right side
CPT/HCPCS: 97113; 97162; 97164

== ENCOUNTER 2020-02-07 15:54 | Emergency (ER) | payer MEDICARE, SELFPAY ==
[2020-02-07 15:56] VITALS: BP 140/94; PULSE 82; RESP 18; TEMP 36.4; O2SAT 98; BMI 38.5
--- NOTE | 2020-02-07 16:16 | ED.DCSUM_ITS ---
History of Present Illness Chief Complaint: Edema Informant: Patient Onset: Days Timing: Intermittent - 2 days Current Severity: Mild Maximum Severity: Moderate Narrative: Patient presents with right chirinos pain that started yesterday. She denies any recent injury. She did have surgery on her right lower leg last year to have a hematoma drained. She also reports having a cantaloupe fall and hit her leg 2 months ago and she still has a bruised area from that. Since yesterday patient had intermittent sharp pain just below her knee on the anterior surface of her chirinos. She denies overlying skin change. No paresthesias. She does report some shortness of breath and cough when walking into the emergency room. She states this is not abnormal for her and she has no other symptoms of Covid. - Past Medical History (1) Hypertension Status: Chronic (2) Osteoarthritis Status: Chronic (3) History of right knee joint replacement Status: Chronic (4) Fibromyalgia Status: Chronic (5) GERD (gastroesophageal reflux disease) Status: Chronic Past Medical History - Allergies and Home Meds Allergies/Adverse Reactions: Allergies bee pollen Allergy (Verified 02/07/20 15:59) Anaphylaxis latex Allergy (Verified 02/07/20 15:59) Swelling morphine Allergy (Verified 02/07/20 15:59) Other hallucinations Penicillins Allergy (Verified 02/07/20 15:59) Hives hydrocodone bitartrate [From Vicodin] Adverse Reaction (Verified 02/07/20 15:59) Abd cramps/diarrhea Primary Care Physician: Alexi Morin Chi, MD [Primary Care Provider] - Surgical History: adenoidectomy, appendectomy, cataract, cholecystectomy - Laparoscopic., hysterectomy, total knee arthroplasty - Bilateral., tonsillectomy, - - Breast biopsies for benign cysts, cardiac catheterization, right rotator cuff repair. Lives: Spouse/ Significant Other Smoking Status: Never smoker - Family History Maternal Family History: Family History (Last Reviewed 01/01/20 @ 10:43 by Silvia Austin) Father Diabetes Heart disease Hypertension CVA (cerebral vascular accident) Parkinson disease Mother Breast cancer Hypertension Grandmother Cancer Ovarian cancer Son Anesthesia complication Brother Asthma Arthritis Diabetes Respiratory disease Grandfather Lung cancer CVA (cerebral vascular accident) Family History: Reports: Cancer - Breast cancer Paternal Family History: Family History (Last Reviewed 01/01/20 @ 10:43 by Silvia Austin) Father Diabetes Heart disease Hypertension CVA (cerebral vascular accident) Parkinson disease Mother Breast cancer Hypertension Grandmother Cancer Ovarian cancer Son Anesthesia complication Brother Asthma Arthritis Diabetes Respiratory disease Grandfather Lung cancer CVA (cerebral vascular accident) Family History: Reports: Diabetes, - - Parkinson's disease Review of Systems General: Denies: Chills, Fever Eyes: Denies: Visual changes - bilaterally ENT: Denies: Bilateral ear pain Cardiovascular: Denies: Chest pain Respiratory: Reports: Dyspnea, Cough. Denies: Sputum Gastrointestinal: Denies: Abdominal pain, Nausea, Vomiting, Diarrhea Musculoskeletal: Reports: Extremity Pain Skin: Denies: Rash, Wounds Neurological: Denies: Headache Hematologic: Denies: Easy bruising, Easy bleeding Allergy: Denies: Uticaria Physical Exam Vital Signs/Narrative: Vital Signs Temp Pulse Resp BP Pulse Ox 02/07/20 15:56 97.6 F L 82 18 140/94 H 98 Inital Vital Signs reviewed: Yes General: Well nourished, Well developed Head: Normocephalic ENT: Moist mucous membranes Neck: Supple Cardiovascular: Regular rate, Regular rhythm Respiratory: No distress, CTA bilaterally Abdomen: Soft, Nontender Extremities: - - Mild tenderness of the tibial tuberosity of the right lower extremity. Well-healed scar to the lower portion of the tib-fib. Strong distal pulses. No significant erythema, warmth, or sign of infection. Skin: Normal color Neurological: Alert, Oriented x3 Psychological: Normal affect Diagnostic/Tx/Re-eval 02/07/20 16:39 Tibia & Fibula 2 Views [RAD] Stat IMPRESSION: No acute bony injury of the tibia and fibula. 02/07/20 17:04 CTA Chest W/WO Contrast [CT] Stat IMPRESSION: No demonstrated pulmonary embolism or arterial dissection. Minimal interstitial scarring is seen in both lungs. No focal consolidation. No pleural effusion. There are degenerative changes of thoracic spine. No visualized acute fractures. A suture anchor is seen in the right humeral head. Laboratory Results 02/07/20 02/07/20 02/07/20 16:30 16:30 16:30 WBC 6.1 RBC 4.68 Hgb 12.6 Hct 40.5 MCV 86.5 MCH 26.9 L MCHC 31.1 L RDW Std Deviation 44.3 H RDW Coeff of April 14.1 Plt Count 265 MPV 10.1 Immature Gran % (Auto) 0.300 Neut % (Auto) 58.3 Lymph % (Auto) 29.0 [place] % (Auto) 7.6 Eos % (Auto) 4.0 Baso % (Auto) 0.8 Absolute Neuts (auto) 3.5 Absolute Lymphs (auto) 1.76 Nucleated RBC % 0 D-Dimer Quant (PE/DVT) 1.50 H* Sodium 142 Potassium 3.7 Chloride 110 H Carbon Dioxide 29.0 Anion Gap 3 L BUN 13 Creatinine 0.81 Estim Creat Clear Calc 47.37 Est GFR (MDRD) Af Amer 89 Est GFR (MDRD) Non-Af 74 BUN/Creatinine Ratio 16.0 Glucose 116 H Calcium 8.7 - EKG Initial EKG Interpretation: Sinus Rhythm - Sinus at 70 with no acute ischemia. - Medical Decision Making Patient actually had leg x-ray and D-dimer performed. D-dimer did return elevated. In light of this blood work and CTA are obtained which are unremarkable. Eugenio wrap is applied to her leg. She will return tomorrow for ult rasound of her leg as she is currently present in the emergency room on a Sunday evening when imaging is not available. Patient is agreeable with this plan. ED Disposition - Plan for ED Patient: Disposition: Home or Assisted Living Diagnosis: Right leg pain Instructions: ED Sprain Knee Referrals: Alexi Morin Chi, MD [Primary Care Provider] - 3-5 Days
--- NOTE | 2020-02-07 16:39 | RAD_ITS ---
STUDY: X-RAY - RIGHT TIBIA AND FIBULA REASON FOR EXAM: Female, 74 years old. PAIN, NKI TECHNIQUE: 2 view(s) of the tibia and fibula were obtained. COMPARISON: None. FINDINGS: Normal visualized tibia. Normal visualized fibula. Status post total knee placement. Calcaneal spurring. The soft tissue structures are unremarkable. RAD/Tibia & Fibula 2 Views IMPRESSION: No acute bony injury of the tibia and fibula. Electronically Signed: William Hernandez DO at 17:02 EDT Tel [phone], Service support ,
--- NOTE | 2020-02-07 17:04 | CT_ITS ---
STUDY: CTA CHEST REASON FOR EXAM: Female, 74 years old. RT VILLARREAL PAIN, INJURY X 2 WEEKS AGO, BRUISING, SWELLING RADIATION DOSAGE (If Supplied By Facility): CTDIvol = ( 13.60 ) mGy, DLP = ( 435.29 ) mGycm TECHNIQUE: The examination was performed with the intravenous administration of 100 CC ISOVUE 370. Post-processing of the angiographic images was performed, with multiplanar reformation and 3D reconstruction. Individualized dose optimization techniques were used for this CT. COMPARISON: None. FINDINGS: Normal enhancement of the main pulmonary artery and right and left pulmonary arteries. Normal enhancement of the bilateral peripheral pulmonary arteries. There is no demonstrated pulmonary embolism. There is atherosclerotic calcification of the aortic arch with tortuosity. There is no demonstrated aortic dissection. Normal heart size and pericardium. Normal mediastinum. Normal hilar regions. Normal visualized trachea and bronchi. The lungs are well expanded. Minimal interstitial scarring is seen in both lungs. No focal consolidation. No pleural effusion. Normal pleura. Normal chest wall structures. There are degenerative changes of thoracic spine. No visualized acute fractures. A suture anchor is seen in the right humeral head. No demonstrated acute or significant process of the visualized upper abdomen. CT/CTA Chest W/WO Contrast IMPRESSION: No demonstrated pulmonary embolism or arterial dissection. Minimal interstitial scarring is seen in both lungs. No focal consolidation. No pleural effusion. There are degenerative changes of thoracic spine. No visualized acute fractures. A suture anchor is seen in the right humeral head. Electronically Signed: Edward Hyman MD at 18:18 EDT , Service support ,
--- NOTE | 2020-02-07 17:04 | EKG12_ITS ---
Test Reason : Blood Pressure : / mmHG Vent. Rate : 070 BPM Atrial Rate : 070 BPM P-R Int : 168 ms QRS Dur : 076 ms QT Int : 430 ms P-R-T Axes : 061 000 003 degrees QTc Int : 464 ms Normal sinus rhythm Cannot rule out Anterior infarct , age undetermined Abnormal ECG Confirmed by JOSE ANTONIO BENNETT, BRIAN ([id number]), technical writer and editor CLAUDIA DIOP ([id number]) on 02/10/2020 8:16:51 AM Referred By: CARYL Confirmed By:BRIAN BRADY MD
[2020-02-07 17:13] LABS: Absolute Lymphocyte Count 1.76 X10^3/uL (0.83-4.51); Absolute Neutrophil Count 3.5 X10^3/uL (2.0-7.7); Basophil# 0.05 X10^3/uL; Basophil% 0.8 % (0-1); Eosinophil# 0.24 X10^3/uL; Hematocrit 40.5 % (37-47); Hemoglobin 12.6 g/dL (12.0-15.0); Lymphocyte # 1.76 X10^3/ul (4.0); Mean Corp Hgb Conc 31.1 g/dL (32-36); Mean Corpuscular Hgb 26.9 pg (27.0-32.0); Mean Corpuscular Volume 86.5 fL (81-99); Mean Platelet Vol. 10.1 fl (6.2-12.0); Monocyte# 0.46 X10^3/uL; Monocyte% 7.6 % (0-10); NRBC Flagged by Analyzer 0 % (0-5); Neutrophil # 3.54 X10^3/uL (2.7-7.7); Neutrophil % 58.3 % (47-70); Platelet Count 265 K/mm3 (150-450); RBC Distribution Width CV 14.1 % (11.6-14.6); RBC Distribution Width SD 44.3 fl (35.1-43.9); Red Blood Count 4.68 M/mm3 (4.2-5.4); White Blood Count 6.1 K/mm3 (4.4-11.0)
[2020-02-07 17:16] VITALS: BP 151/92; PULSE 71; RESP 17; O2SAT 97
[2020-02-07 17:22] LABS: Anion Gap 3 (5-15); BUN 13 mg/dL (7-18); Calcium,Total 8.7 mg/dL (8.5-10.1); Chloride 110 mmol/L (98-107); Creatinine, Serum 0.81 mg/dL (0.55-1.02); EST Glomerular Filtration Rate 74 mL/min (>60); Est Glom Filt Rate - Afr Amer 89 mL/min (>60); Estimated Creatinine Clearance 47.37 ml/min; Glucose 116 mg/dL (74-106); Potassium 3.7 mmol/L (3.5-5.1); Sodium Level 142 mmol/L (136-145)
[2020-02-07 18:30] VITALS: BP 164/86; PULSE 68; RESP 16; O2SAT 94
[2020-02-07 19:19] VITALS: BP 164/86; PULSE 68; RESP 16; O2SAT 95
== END 2020-02-07 19:20 | disposition home or self-care (01) ==
PROVIDERS: Emergency Provider Emergency Medicine; PCP Family Medicine Geriatric Medicine
DX: M79.661 Pain in right lower leg (principal); I10 Essential (primary) hypertension; M19.90 Unspecified osteoarthritis, unspecified site; M79.7 Fibromyalgia; K21.9 Gastro-esophageal reflux disease without esophagitis; Z96.651 Presence of right artificial knee joint
CPT/HCPCS: 71275; 73590; 80048; 85025; 85379; 93005; 99281; 99285; Q9967; A4216

== ENCOUNTER → 2020-02-08 11:56 | Outpatient (CLI) | payer MEDICARE, SELFPAY ==
[2020-02-07 15:56] VITALS: BMI 38.5
--- NOTE | 2020-02-08 12:04 | VDLE_ITS ---
Reason For Study: Pain RIGHT GSV is normal. CFV is compressible, spontaneous, phasic, competent and demonstrates normal augmentation. FV is compressible, spontaneous, phasic, competent and demonstrates normal augmentation. POP V is compressible, spontaneous, phasic, competent and demonstrates normal augmentation. T/P Trunk is compressible. PTV is compressible. RT PerV is compressible. Procedure This is a venous duplex using B-mode, color flow and spectral Doppler. Exam performed in department. A preliminary report was called and/or faxed to PCP Mikel. Pt seen in ED 02/07/2020, done as next day ED. Interpretation Summary Deep veins of the right lower extremity are patent and compressible segmentally. There is no evidence of right lower extremity deep vein thrombosis. Valvular competence appears intact within the proximal deep venous system on the right . The right great saphenous vein appears patent and compressible segmentally. Ordering Physician: Iliana Albarran Referring Physician: Alexi Morin Chi Performed By: Mariposa Elizabeth RVT
== END ==
PROVIDERS: PCP Family Medicine Geriatric Medicine; Visit Provider Family Medicine Geriatric Medicine
DX: M79.661 Pain in right lower leg (principal)
CPT/HCPCS: 93971

== ENCOUNTER → 2020-02-17 06:29 | Outpatient (CLI) | payer MEDICARE, SELFPAY ==
[2020-02-07 15:56] VITALS: BMI 38.5
--- NOTE | 2020-02-17 06:41 | MRI_ITS ---
PROCEDURE: MRI LOWER EXTREMITY RIGHT TIBIA/FIBULA REASON FOR EXAM: Female, 74 years old. right leg pain, pain mid to distal, pt had surgery for hematoma/ infection 11/2018 lower leg TECHNIQUE: Standardized fat and water weighted pulse sequences were obtained in all 3 orthogonal planes. COMPARISON: X-ray 02/07/2020 FINDINGS: The patient is status post right knee arthroplasty with the inferior stem of the prosthesis and 2 screws extending into the proximal metaphysis. Distal to the hardware there is a 4 cm the oval fluid collection with geographic margins and loosening cannot be excluded. However, there is no evidence of erosion of the surrounding cortex. Normal anterior, lateral, and posterior calf compartments, with normal muscles, crural fascia and intermuscular septa. Diffuse skin thickening and edema of the subcutaneous fat may be related to passive congestion or cellulitis. No loculated fluid collection to suggest abscess. There is no solid, cystic or lipomatous mass lesion of the subcutis adipose space. MRI/Lower Ext/No Jt/w/o IMPRESSION: 1. Diffuse skin thickening and edema of the subcutaneous fat possibly from passive congestion or cellulitis. No abscess. 2. 4 cm well-defined fluid collection distal to the hardware from the knee prosthesis. Loosening cannot be excluded but no cortical erosion is identified. Electronically Signed: Igor García MD at 9:33 EDT Tel , Service support ,
== END ==
PROVIDERS: PCP Family Medicine Geriatric Medicine; Referring Provider Family Medicine Geriatric Medicine; Visit Provider Family Medicine Geriatric Medicine
DX: M79.609 Pain in unspecified limb (principal)
CPT/HCPCS: 73718

== ENCOUNTER → 2020-02-27 10:22 | Outpatient (CLI) | payer MEDICARE, SELFPAY ==
[2020-02-07 15:56] VITALS: BMI 38.5
--- NOTE | 2020-02-27 10:22 | BI_ITS ---
MAMMOGRAPHY - BILATERAL SCREENING REASON FOR EXAM: Female, 74 years old. Routine annual screening examination. PERTINENT HISTORY: Mother with breast cancer. Aunt with breast cancer. TECHNIQUE: Digital bilateral breast ronald (3D mammographic acquisition) in the CC and MLO projections. 2-D mediolateral oblique (MLO) and craniocaudad (CC) views of both breasts were obtained. CAD: Full Field Digital Mammography with Computer Added Detection was performed. COMPARISON: Comparison is made with prior study dated 02/25/2019 and 11/09/2007. FINDINGS: Breast Composition: The breasts are heterogeneously dense, which may obscure small masses. There are no dominant masses or suspicious calcifications. There are 2 tissue markers in the right breast from prior biopsies. A tissue marker is also seen in the deep medial portion of the left breast No other significant abnormalities are identified. There has been no significant change since the prior study. BI/SCREEN MAMM (CAD) W/RONALD BILAT IMPRESSION: Stable bilateral screening mammogram. Yearly follow-up mammogram recommended. (A) ASSESSMENT CATEGORY: BIRADS Category 2: Benign. A letter regarding these results will be sent to the patient by the facility within 30 days. Approximately 10% of breast cancers are not detected by mammography. A normal mammogram should not delay biopsy of a clinically suspicious abnormality. [id number] Electronically Signed: Peter Davidson, at 11:17 EST , Service support ,
== END ==
PROVIDERS: PCP Family Medicine Geriatric Medicine; Referring Provider Family Medicine Geriatric Medicine; Visit Provider Family Medicine Geriatric Medicine
DX: Z12.31 Encounter for screening mammogram for malignant neoplasm of breast (principal); Z80.3 Family history of malignant neoplasm of breast
CPT/HCPCS: 77063; 77067

== ENCOUNTER → 2020-03-06 10:41 | Outpatient (CLI) | payer MEDICARE, SELFPAY ==
[2020-02-07 15:56] VITALS: BMI 38.5
[2020-03-06 11:44] LABS: Erythrocyte Sedimentation Rate 17 mm/hr (0-30)
[2020-03-06 11:47] LABS: Absolute Lymphocyte Count 1.43 X10^3/uL (0.83-4.51); Absolute Neutrophil Count 3.4 X10^3/uL (2.0-7.7); Basophil# 0.05 X10^3/uL; Basophil% 0.9 % (0-1); Eosinophil# 0.23 X10^3/uL; Eosinophils% 4.1 % (0-5); Hematocrit 42.4 % (37-47); Hemoglobin 13.3 g/dL (12.0-15.0); Lymphocyte # 1.43 X10^3/ul (4.0); Lymphocyte % 25.4 % (19-41); Mean Corp Hgb Conc 31.4 g/dL (32-36); Mean Corpuscular Hgb 26.8 pg (27.0-32.0); Mean Corpuscular Volume 85.5 fL (81-99); Monocyte% 8.9 % (0-10); NRBC Flagged by Analyzer 0 % (0-5); Neutrophil # 3.39 X10^3/uL (2.7-7.7); Neutrophil % 60.3 % (47-70); Platelet Count 259 K/mm3 (150-450); RBC Distribution Width CV 14.2 % (11.6-14.6); RBC Distribution Width SD 44.2 fl (35.1-43.9); Red Blood Count 4.96 M/mm3 (4.2-5.4); White Blood Count 5.6 K/mm3 (4.4-11.0)
[2020-03-06 11:59] LABS: CRP 5.33 mg/L (0.0-3.0)
== END ==
PROVIDERS: PCP Family Medicine Geriatric Medicine; Referring Provider Specialist; Visit Provider Specialist
DX: T84.84XA Pain due to internal orthopedic prosthetic devices, implants and grafts, initial encounter (principal)
CPT/HCPCS: 36415; 85025; 85652; 86140

== ENCOUNTER → 2020-03-12 07:15 | Outpatient (CLI) | payer MEDICARE, SELFPAY ==
--- NOTE | 2020-03-12 07:20 | CT_ITS ---
STUDY: CT RIGHT KNEE WITHOUT CONTRAST REASON FOR EXAM: Female, 74 years old. Right knee pain. History of total knee arthroplasty. RADIATION DOSAGE (If Supplied By Facility): CTDIvol = ( 15.35 ) mGy, DLP = ( 496.98 ) mGycm TECHNIQUE: Transaxial CT imaging of the knee was performed. Coronal and sagittal images were reformatted. Individualized dose optimization techniques were used for this CT. COMPARISON: 02/07/2020 FINDINGS: Generalized osteopenia. 3 component revision total knee arthroplasty in anatomic alignment. Muscle atrophy diffusely. Suprapatellar joint effusion (axial series 3 image 24). CT/Extremity Lower without Contra IMPRESSION: Generalized osteopenia. Uncomplicated revision 3 component total knee arthroplasty. Generalized muscle atrophy. Small suprapatellar joint effusion. Electronically Signed: Glen Lundy MD at 11:58 EST , Service support ,
== END ==
PROVIDERS: PCP Family Medicine Geriatric Medicine; Referring Provider Specialist; Visit Provider Specialist
DX: T84.84XA Pain due to internal orthopedic prosthetic devices, implants and grafts, initial encounter (principal)
CPT/HCPCS: 73700

== ENCOUNTER → 2020-04-06 11:27 | Outpatient (CLI) | payer MEDICARE, SELFPAY | PROVIDERS: PCP Family Medicine Geriatric Medicine; Visit Provider Family Medicine Geriatric Medicine | DX: N39.0 Urinary tract infection, site not specified (principal) | CPT/HCPCS: 87077; 87086; 87088; 87186 ==

== ENCOUNTER → 2020-04-27 14:31 | Outpatient (CLI) | payer MEDICARE, SELFPAY ==
[2020-04-27 16:19] LABS: Absolute Neutrophil Count 4.1 X10^3/uL (2.0-7.7); Basophil# 0.04 X10^3/uL; Basophil% 0.6 % (0-1); Eosinophil# 0.21 X10^3/uL; Eosinophils% 3.2 % (0-5); Hematocrit 41.9 % (37-47); Hemoglobin 13.5 g/dL (12.0-15.0); Lymphocyte % 25.5 % (19-41); Mean Corp Hgb Conc 32.2 g/dL (32-36); Mean Corpuscular Hgb 27.1 pg (27.0-32.0); Mean Corpuscular Volume 84.1 fL (81-99); Mean Platelet Vol. 10.1 fl (6.2-12.0); Monocyte# 0.62 X10^3/uL; Monocyte% 9.3 % (0-10); NRBC Flagged by Analyzer 0 % (0-5); Neutrophil # 4.07 X10^3/uL (2.7-7.7); Neutrophil % 61.1 % (47-70); Platelet Count 310 K/mm3 (150-450); RBC Distribution Width CV 13.9 % (11.6-14.6); RBC Distribution Width SD 42.3 fl (35.1-43.9); Red Blood Count 4.98 M/mm3 (4.2-5.4); White Blood Count 6.7 K/mm3 (4.4-11.0)
[2020-04-27 16:20] LABS: Erythrocyte Sedimentation Rate 15 mm/hr (0-30)
[2020-04-27 16:29] LABS: CRP 6.14 mg/L (0.0-3.0)
== END ==
PROVIDERS: PCP Family Medicine Geriatric Medicine; Visit Provider Specialist
DX: T84.84XA Pain due to internal orthopedic prosthetic devices, implants and grafts, initial encounter (principal)
CPT/HCPCS: 36415; 85025; 85652; 86140

== ENCOUNTER 2020-05-12 10:53 | Inpatient (IN) | payer MEDICARE, SELFPAY ==
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
--- NOTE | 2020-05-03 13:22 | EKG12_ITS ---
Test Reason : PREOP Blood Pressure : / mmHG Vent. Rate : 073 BPM Atrial Rate : 073 BPM P-R Int : 152 ms QRS Dur : 072 ms QT Int : 426 ms P-R-T Axes : 059 011 022 degrees QTc Int : 469 ms Normal sinus rhythm Normal ECG Confirmed by TEJAL BENNETT, AISHWARYA ([id number]), online content editor MIKAEL GUADALUPE ([id number]) on 05/06/2020 11:22:55 AM Referred By: Dimas Lagunas Confirmed By:AISHWARYA TOURE MD
[2020-05-03 13:49] LABS: Absolute Lymphocyte Count 1.56 X10^3/uL (0.83-4.51); Absolute Neutrophil Count 3.1 X10^3/uL (2.0-7.7); Basophil# 0.05 X10^3/uL; Basophil% 0.9 % (0-1); Eosinophil# 0.21 X10^3/uL; Eosinophils% 3.9 % (0-5); Hematocrit 40.7 % (37-47); Hemoglobin 12.8 g/dL (12.0-15.0); Lymphocyte # 1.56 X10^3/ul (4.0); Lymphocyte % 28.8 % (19-41); Mean Corp Hgb Conc 31.4 g/dL (32-36); Mean Corpuscular Hgb 26.3 pg (27.0-32.0); Mean Corpuscular Volume 83.7 fL (81-99); Mean Platelet Vol. 9.9 fl (6.2-12.0); Monocyte# 0.48 X10^3/uL; Monocyte% 8.9 % (0-10); NRBC Flagged by Analyzer 0 % (0-5); Neutrophil % 57.3 % (47-70); Platelet Count 288 K/mm3 (150-450); RBC Distribution Width SD 42.4 fl (35.1-43.9); Red Blood Count 4.86 M/mm3 (4.2-5.4); White Blood Count 5.4 K/mm3 (4.4-11.0)
[2020-05-03 14:01] LABS: Anion Gap 3 (5-15); BUN 14 mg/dL (7-18); BUN/Creat Ratio 16.2 RATIO (10-20); Chloride 111 mmol/L (98-107); Creatinine, Serum 0.87 mg/dL (0.55-1.02); EST Glomerular Filtration Rate 68 mL/min (>60); Est Glom Filt Rate - Afr Amer 83 mL/min (>60); Glucose 82 mg/dL (74-106); Potassium 3.7 mmol/L (3.5-5.1); Sodium Level 143 mmol/L (136-145)
[2020-05-03 14:02] LABS: Magnesium 2.5 mg/dL (1.6-2.6)
[2020-05-12] VITALS (13 sets, daily range): BP systolic 105–163; BP diastolic 55–103; PULSE 65–100; RESP 14–20; TEMP 36.2–36.8; O2SAT 95–100; BMI 38.5; BMI 38.8
[2020-05-12] MEDS: Lactated Ringers 1,000 ML 999 ML IV ×2 (07:00→16:48)
[2020-05-12] MEDS: Lactated Ringers 1,000 ML 75 ML IV (07:00)
[2020-05-12] MEDS: Celecoxib 200 MG Capsule 400 MG PO (11:32)
[2020-05-12] MEDS: Acetaminophen 500 MG Tablet 1000 MG PO ×2 (11:32→20:02)
[2020-05-12] MEDS: Gabapentin 600 MG Tablet PO (11:32)
[2020-05-12 12:15] LABS: Bedside Glucose 85 mg/dL (70-110)
[2020-05-12] MEDS: dexAMETHasone 10 MG/ML Vial IV (13:40)
[2020-05-12] MEDS: Cefazolin 2 GM in 0.9% Normal Saline 100 ML IV (13:40)
--- NOTE | 2020-05-12 15:53 | OP.PCM_ITS ---
Report of Operation Date of Procedure: 05/12/20 Pre-Operative Diagnosis: Failed right total knee replacement, osteolysis, aseptic loosening Post-Operative Diagnosis: Failed right total knee replacement, osteolysis, aseptic loosening Surgery/Procedure Performed:: Revision right total knee replacement entire femoral and tibial components Description of Surgical Findings:: Stable knee with good patella tracking. Patella was stably fixed without excessive wear. wheel loader operator: Reyes Avila Type of Anesthesia:: Spinal Anesthesiologist: Omari Cole Special Medications: 2 g Ancef, 1 g TXA at incision, 1 g TXA closure, 10 mg Decadron, joint cocktail (5 mg Duramorph, 30 mL of 0.5% Ropivicaine, 1000 units of epinephrine, 30 mg of Toradol) Estimated Blood Loss (mL): 150 Fluids Replaced: 1500 mL crystalloid Description of Procedure: Implants used: Femur: Size 4 right TS Jackie distal femoral component with 15 x 100 mm cemented stem and 10 mm augments distally medially and laterally and 5 mm augments posteriorly medially and laterally. A size 6 bilobed cone Tibia: Size 3 universal tibial baseplate with 12 x 50 mm cemented stem. Size a cone Poly: 19 mm TS Walker X3 polyethylene Brief history operative indications: 74-year-old F with total knee replacement in 1999. Patient demonstrated evidence of pain and aseptic loosening as well as osteolysis. After ruling out infection we agreed to proceed with revision total knee replacement which had risks which include but not limited to blood loss, DVTs, PEs, nervous damage, infection, the risk of anesthesia. Patient demonstrate understanding was able to sign informed consent. Medical clearance was obtained. Procedure: On the date of procedure patient's R lower extremity was marked in the preoperative area. The patient was then taken back to the operating room where the patient was placed on the table in the supine position. All bony prominences were identified a well-padded. Anesthesia assumed control of the C-spine and airway and remained controlled throughout the remainder of the procedure. A tourniquet was placed on the R upper thigh and the leg was prepped in a sterile fashion. The surgeon then scrubbed at this time. Upon reentering the room R lower extremity was draped in a standard orthopedic fashion. A timeout was then called and everyone agreed upon the side, the site, the procedure to be performed, patient's identity and antibiotics given. An Esmarch bandage was used to exsanguinate the extremity and the tourniquet was placed up to 250 mmHg with the knee in flexion. A midline skin incision was made using the previous incision and extending it proximally and distally to identify normal tissue planes. Medial and lateral flaps were developed appropriate releases. The standard medial parapatellar arthrotomy was made and the patella was subluxed laterally. At this time an aggressive synovectomy was performed re-creating the medial gutter first, then the suprapatellar pouch than the lateral gutter. Once this was completed the knee was flexed up an osteotome was used to remove the tibial polyethylene. The remainder of the synovium was debrided. The standard deep MCL release was done and the patella scar pad was resected and lateral releases were performed. Next our attention was directed to the femur. Where flexible osteotomes and TPS saw were used to break up the implant cement interface. This was done both medially and laterally. After this a bone tamp was used to remove the femur component from the end of the bone. This was done with minimal bone loss. At this time attention was now directed towards the proximal tibia. Possible osteotome and TPS saw were then used to break up the proximal tibia implant interface and stacked osteotomes were used to remove the tibial implant. This was done with minimal bone loss. Our attention was then turned to the tibia where the intramedullary canal was reamed to 18MM and a size A tibial cone was reamed. We then made a cleanup cut on the tibia, A drop veronique was then used to verify the cut. A size 3 tibial base plate was selected. the knee was flexed and the tibial component was pinned into place and the boss reamer was used to ream the proximal medullary canal. The trial implant was impacted in its prepared position. Our attention was then turned back to the femur or the femur intramedullary canal was reamed to 19 mm using the previous implants a size 4 TCG cutting guide with a 19 x 100 mm stem was put into place. The medial epicondyle was used to set the joint line. With this TCG cutting guide we used a 19 mm polyethylene trial in order to help balance the gaps. Once the gaps were appropriately balanced the guide was firmly pinned into place. Distal cuts were made with 10 mm augments medially and 10 mm augment laterally. Posterior cuts were made with 5 mm augments medially and 5 mm augment laterally. Using the guide the box cut was made using a reciprocating saw. The appropriate trials were then placed on the femur and tibia. A trial polyethylene was trialed to ensure proper balancing and stability of the knee. Patella tracking, was then verified and corrected appropriately as needed. Our attention was then directed to the patella. Patella remained intact and a ppropriate. Based on x-rays it was firmly fixed. Patellar tracking was again checked and deemed appropriate. Final components were verified and opened, 6 liters of normal saline were irrigated throughout the joint under low-pressure lavage. Then the cement was mixed in a vacuum. [employer] Simplex cement with tobramycin was used. The wound was copiously irrigated with normal saline. When the cement was ready cement plugs were placed in the tibial cone was placed the components were cemented into place starting with the tibia, femur. The trial poly component was placed and the knee was placed in full extension. All excess cement was removed in the process. Once the cement had cured the tracking, alignment and balance were verified and a size 19 mm TS polyethylene component was placed. Once the final components were placed 3-minute dilute Betadine lavage followed by a chlorhexidine lavage was used and the wound was copiously irrigated with normal saline solution and the remainder of the periarticular injection was given. The wound was closed in a layer velasco fashion using #1 vicryl interrupted sutures for the arthrotomy, 2-0 interrupted Vicryl for the subcuticular layer and roxanne for final skin closure. A sterile compressive dressing was then placed. The patient was then awakened from anesthesia, transferred to the [place] and transferred to the PACU for recovery. Post op plan DVT ppx: ASA 81mg BID, thigh high compression stockings Follow up: in office in 2 weeks for wound check. Patient will remain on antibiotics for 1 week while we follow cultures PT: to start POD #0 at hospital, outpatient PT should be arranged. My physician children's nursery assistant was a vital part of this case. He was important in appropriate retraction during the case, and protection of soft tissues during bony cuts. His intimate knowledge of the case and my steps aided in safe and expedient completion of the procedure as well as appropriate position of the leg during the case. He was also vital in assisting with closure under my direct supervision. - Complications No intraoperative complications - Admit VTE Documentation VTE Present on Admission: No VTE Mechan Device Prophylaxis: SCD's, Thigh High DELIA Hose VTE Pharm Prophylaxis ordered?: Yes
[2020-05-12] MEDS: Lactated Ringers 1,000 ML 125 ML IV (17:22)
--- NOTE | 2020-05-12 17:22 | RAD_ITS ---
STUDY: X-RAY - RIGHT KNEE REASON FOR EXAM: Female, 74 years old. POST OP TECHNIQUE: 2 view(s) of the knee. COMPARISON: Prior right knee radiographs of 08/29/2016 FINDINGS: She is status post a right knee arthroplasty revision with replacement of the prior hardware, now totally removed. The current hardware is properly located with no disruption of the hardware or periprosthetic fracture. The patellar replacement has been revised and remains anatomically located. Normal postoperative soft tissue changes. Anterior incision closed with roxanne. RAD/Knee 1 or 2 Views IMPRESSION: Status post right total knee arthroplasty revision with no untoward bone, joint or hardware findings. Electronically Signed: Paola Cali MD at 18:18 EST , Service support ,
--- NOTE | 2020-05-12 18:37 | PN_ITS ---
Reason for Visit: Consult for postop medical management Subjective: 74-year-old female with past medical history of hypertension who comes in for elective revision of right total knee arthroplasty. Patient has a history of previous right total [place] [address] Bridges. She also had an infected hematoma in the right lower leg as well as recurrent cellulitis. She continues to have persistent pain that affected her activities of daily living. Patient was seen and examined in the immediate postop. Her vitals are stable. Blood work on 05/03/20 is unremarkable Vitals/I&O's: Vital Signs Temp Pulse Resp BP Pulse Ox 97.5 F L 91 14 116/64 96 05/12/20 18:16 05/12/20 18:16 05/12/20 18:16 05/12/20 18:16 05/12/20 18:16 Oxygen Flow Rate (L/min) 6 Oxygen Delivery Method Simple Mask Weight: 90.265 kg Body Mass Index (BMI) 38.8 Finger Stick Blood Glucose 126 Intake and Output for Last 24 Hours 05/10/20 05/11/20 05/12/20 23:59 23:59 23:59 Intake Total 3435.5 / 3435.5 Balance 3435.5 / 3435.5 General: Alert, Oriented x3, Cooperative, No apparent distress, - - Obese HEENT: Atraumatic, PERRLA, EOMI, Normocephalic Oral: Moist Mucosa Neck: Supple Lungs: Clear to auscultation, Normal air movement Cardiovascular: Regular rate, Regular Rhythm, Normal S1, Normal S2, No murmurs Abdomen: Bowel Sounds Present, Soft, Non Tender, Non-Distended, No Hepato- splenomegaly Extremities: No edema Skin: No rashes Musculoskeletal: Tenderness - Tenderness in the right knee, cooling blanket over the knee, trace bilateral edema Lymphatic: No Cervical, Supraclavicular, or Inguinal Adenopathy Neurological: Cranial nerves II-XII grossly intact, Neuro grossly intact Psych/Mental Status: Normal Affect, Appropriate Microbiology Past 72 Hours 05/11/20 13:29 Interface Orders SARS-CoV-2 Antigen (Rapid) - Final Laboratory Results 05/12/20 11:28: POC Glucose 85 Current Medications Acetaminophen (Acetaminophen 500 Mg Tablet) 1,000 mg PO Q8 ANTONY Aspirin (Aspirin 81 Mg Tab.Chew) 81 mg PO BIDCM [facility] Cholecalciferol (Cholecalciferol (Vit D3) 1,000 Unit (25mcg)) 1,000 unit PO DAILY [facility] Doxycycline Monohydrate (Doxycycline 100 Mg Capsule) 100 mg PO BID [facility] Enteral Nutritional Formula (Ensure Surgery 237 Ml Liquid) 237 ml PO TIDCM [facility] Famotidine (Famotidine 20 Mg Tablet) 20 mg PO DAILY [facility] Hydromorphone HCl (Hydromorphone 1 Mg/Ml Syringe) 1 mg IV Q3H PRN PRN PRN Reason: Pain Score 6-10 Lactated Ringer's () 1,000 mls @ 125 mls/hr IV .Q8H [facility] Last Admin: 05/12/20 17:22 Dose: 125 mls/hr Documented by: Cefazolin Sodium () 1 gm in 50 mls @ 150 mls/hr IV Q8H [facility] Stop: 05/13/20 06:19 Ketorolac Tromethamine (Ketorolac 15 Mg/Ml Vial) 15 mg IV Q6H PRN PRN PRN Reason: Pain Score 1-5 Stop: 05/14/20 15:51 Losartan Potassium (Losartan Potassium 50 Mg Tablet) 50 mg PO DAILY [facility] Meloxicam (Meloxicam 7.5 Mg Tablet) 7.5 mg PO BID [facility] Ondansetron HCl (Ondansetron 4 Mg/2 Ml Vial) 4 mg IV Q8H PRN PRN PRN Reason: NAUSEA Oxycodone HCl (Oxycodone 5 Mg Tablet) 5 - 10 mg PO Q4H PRN PRN PRN Reason: Pain Score 4-10 Promethazine HCl (Promethazine 25 Mg/Ml Syringe) 12.5 mg IM Q6H PRN PRN; Protocol PRN Reason: NAUSEA/VOMITING Senna/Docusate Sodium (Senna/Docusate Sodium 1 Tablet) 2 tablet PO BID [facility] Sodium Chloride (0.9% Nacl Peripheral Flush Adult/Peds) 5 - 15 ml IV UD PRN PRN Reason: SALINE FLUSH Sodium Chloride (0.9% Saline Lock 10 Ml Syringe) 10 - 40 ml IV UD PRN PRN Reason: SALINE FLUSH STROKE Vital Signs/Narrative: Vital Signs Temp Pulse Resp BP Pulse Ox 05/12/20 18:16 97.5 F L 91 14 116/64 96 05/12/20 17:45 97.1 F L 96 18 126/64 H 97 05/12/20 17:30 95 18 105/63 97 05/12/20 17:15 94 18 122/58 H 98 05/12/20 17:00 89 18 126/57 H 100 05/12/20 16:45 94 18 123/55 H 97 05/12/20 16:29 97.9 F 100 18 135/78 H 96 Medical Necessity - Tobacco Use Smoking Status: Never smoker Tobacco Use: Non-smoker Assessment/Plan All Active Problems (Last Reviewed 01/01/20 @ 10:43 by Silvia Austin) Segmental and somatic dysfunction of thoracic region (Acute) Segmental and somatic dysfunction of pelvic region (Acute) Segmental and somatic dysfunction of lumbar region (Acute) Back pain (Acute) Cystitis (Acute) Cellulitis of right anterior lower leg (Acute) Skin necrosis (Acute) Hematoma of right lower extremity (Acute) [place] (acute kidney injury) (Acute) Dehydration (Acute) Dizziness (Acute) Leukocytosis (Acute) Abdominal pain (Acute) Viral illness (Acute) Acute renal failure (Acute) Hyperglycemia (Acute) Lightheadedness (Acute) Generalized abdominal pain (Acute) Diarrhea (Acute) 1. Postop day #0 status post revision right total knee replacement of entire femoral and tibial components Continue with pain management and wound recommendation per primary orthopedic team -scheduled Tylenol, as needed Toradol, oxycodone and morphine as needed 2. Hypertension, continue on valsartan, continue to monitor blood pressure 3. Bilateral neuropathy 4. DVT prophylaxis per orthopedic team?aspirin twice daily Inpatient E&M: 36325 Init Hosp L2
[2020-05-12] MEDS: oxyCODONE 5 MG Tablet PO (19:56)
[2020-05-12] MEDS: Doxycycline 100 MG CAPSULE PO (20:02)
[2020-05-12] MEDS: Senna/Docusate Sodium 1 Tablet 2 TABLET PO (20:02)
[2020-05-12] MEDS: Aspirin 81 MG TAB.CHEW PO (20:02)
[2020-05-12] MEDS: 0.9% NaCl Peripheral Flush Adult/Peds IV (20:05)
[2020-05-12] MEDS: Cefazolin 1 GM/50 ML BAG IV (21:24)
[2020-05-12] MEDS: Ketorolac 15 MG/ML Vial IV (23:25)
[2020-05-12] MEDS: Ondansetron 4 MG/2 ML Vial IV (23:43)
[2020-05-13 04:01] VITALS: BP 137/62; PULSE 60; RESP 20; TEMP 36.4; O2SAT 98
[2020-05-13] MEDS: Acetaminophen 500 MG Tablet 1000 MG PO ×2 (05:52→14:35)
[2020-05-13] MEDS: Cefazolin 1 GM/50 ML BAG IV (05:53)
[2020-05-13] MEDS: oxyCODONE 5 MG Tablet PO ×2 (06:24→14:35)
[2020-05-13] MEDS: 0.9% NaCl Peripheral Flush Adult/Peds IV ×2 (06:34→07:39)
[2020-05-13 06:57] LABS: Hematocrit 38.3 % (37-47); Hemoglobin 12.1 g/dL (12.0-15.0); Mean Corp Hgb Conc 31.6 g/dL (32-36); Mean Corpuscular Hgb 26.9 pg (27.0-32.0); Mean Corpuscular Volume 85.3 fL (81-99); Mean Platelet Vol. 10.3 fl (6.2-12.0); Platelet Count 254 K/mm3 (150-450); RBC Distribution Width CV 14.3 % (11.6-14.6); RBC Distribution Width SD 44.2 fl (35.1-43.9); Red Blood Count 4.49 M/mm3 (4.2-5.4); White Blood Count 13.9 K/mm3 (4.4-11.0)
[2020-05-13 07:26] LABS: Anion Gap 4 (5-15); BUN 12 mg/dL (7-18); BUN/Creat Ratio 13.4 RATIO (10-20); Calcium,Total 8.4 mg/dL (8.5-10.1); Chloride 110 mmol/L (98-107); Creatinine, Serum 0.89 mg/dL (0.55-1.02); EST Glomerular Filtration Rate 66 mL/min (>60); Est Glom Filt Rate - Afr Amer 80 mL/min (>60); Estimated Creatinine Clearance 41.04 ml/min; Glucose 124 mg/dL (74-106); Potassium 4.9 mmol/L (3.5-5.1); Sodium Level 139 mmol/L (136-145)
[2020-05-13] MEDS: Ondansetron 4 MG/2 ML Vial IV (07:39)
[2020-05-13] MEDS: Famotidine 20 MG Tablet PO (07:39)
[2020-05-13 07:51] VITALS: BP 149/72; PULSE 60; RESP 18; TEMP 36.3; O2SAT 94
[2020-05-13 07:58] VITALS: PULSE 60; RESP 18
--- NOTE | 2020-05-13 09:31 | PN.ORTHO_ITS ---
Subjective: The patient was sitting in bedside chair upon examination. Patient denies any chest pain, shortness of breath, dizziness, lightheadedness, nausea or vomiting, or calf pain. Pain is controlled on medications. Patient did have some nausea last night. She states this is improved today. Overall her pain is been controlled. She did receive a postoperative block with the knee. We discussed her revision total knee and postoperative pain control. I explained to her that this can wear off with a block 24 hours post surgical. We will continue to monitor her pain levels. Objective: Vital signs stable and afebrile. Patient is able to plantarflex and dorsiflex actively. Sensation is intact to light touch to saphenous, sural, superficial and deep peroneal, and tibial distribution. Dressing is clean dry and intact. Negative Homans bilaterally, negative signs and symptoms of DVT. - Physical Exam Vitals/I&O's: Vital Signs Temp Pulse Resp BP Pulse Ox 97.3 F L 60 18 149/72 H 94 05/13/20 07:51 05/13/20 07:58 05/13/20 07:58 05/13/20 07:51 05/13/20 07:51 Oxygen Flow Rate (L/min) 2 Oxygen Delivery Method Nasal Cannula Weight: 90.265 kg Body Mass Index (BMI) 38.8 Finger Stick Blood Glucose 126 Intake and Output for Last 24 Hours 05/11/20 05/12/20 05/13/20 23:59 23:59 23:59 Intake Total 4485.5 / 4485.5 1518.08 / 1518.08 Output Total 400 / 400 Balance 4085.5 / 4085.5 1518.08 / 1518.08 General: Alert, Oriented x3, Cooperative, No apparent distress Microbiology Past 72 Hours 05/11/20 13:29 Interface Orders SARS-CoV-2 Antigen (Rapid) - Final Laboratory Results 05/12/20 11:28: POC Glucose 85 05/13/20 06:30: WBC 13.9 H, RBC 4.49, Hgb 12.1, Hct 38.3, MCV 85.3, MCH 26.9 L, MCHC 31.6 L, RDW Std Deviation 44.2 H, RDW Coeff of April 14.3, Plt Count 254, MPV 10.3 05/13/20 06:30: Sodium 139, Potassium 4.9, Chloride 110 H, Carbon Dioxide 25.0, Anion Gap 4 L, BUN 12, Creatinine 0.89, Estim Creat Clear Calc 41.04, Est GFR (M DRD) Af Amer 80, Est GFR (MDRD) Non-Af 66, BUN/Creatinine Ratio 13.4, Glucose 124 H, Calcium 8.4 L Current Medications Acetaminophen (Acetaminophen 500 Mg Tablet) 1,000 mg PO Q8 [facility] Last Admin: 05/13/20 05:52 Dose: 1,000 mg Documented by: Aspirin ([facility] 81 Mg [facility]w) [facility] Last Admin: 05/12/20 20:02 Dose: 81 mg Documented by: Cholecalciferol (Cholecalciferol (Vit D3) 1,000 Unit (25mcg)) 1,000 unit PO DAILY [facility] Doxycycline Monohydrate (Doxycycline 100 Mg Capsule) 100 mg PO BID [facility] Last Admin: 05/12/20 20:02 Dose: 100 mg Documented by: Enteral Nutritional Formula (Ensure Surgery 237 Ml Liquid) 237 ml PO TIDCM [facility] Last Admin: 05/12/20 18:41 Dose: Not Given Documented by: Famotidine (Famotidine 20 Mg Tablet) 20 mg PO DAILY [facility] Last Admin: 05/13/20 07:39 Dose: 20 mg Documented by: Hydromorphone HCl (Hydromorphone 1 Mg/Ml Syringe) 1 mg IV Q3H PRN PRN PRN Reason: Pain Score 6-10 Ketorolac Tromethamine (Ketorolac 15 Mg/Ml Vial) 15 mg IV Q6H PRN PRN PRN Reason: Pain Score 1-5 Stop: 05/14/20 15:51 Last Admin: 05/12/20 23:25 Dose: 15 mg Documented by: Losartan Potassium (Losartan Potassium 50 Mg Tablet) 50 mg PO DAILY [facility] Meloxicam (Meloxicam 7.5 Mg Tablet) 7.5 mg PO BID [facility] Ondansetron HCl (Ondansetron 4 Mg/2 Ml Vial) 4 mg IV Q8H PRN PRN PRN Reason: NAUSEA Last Admin: 05/13/20 07:39 Dose: 4 mg Documented by: Oxycodone HCl (Oxycodone 5 Mg Tablet) 5 - 10 mg PO Q4H PRN PRN PRN Reason: Pain Score 4-10 Last Admin: 05/13/20 06:24 Dose: 5 mg Documented by: Promethazine HCl (Promethazine 25 Mg/Ml Syringe) 12.5 mg IM Q6H PRN PRN; Protocol PRN Reason: NAUSEA/VOMITING Senna/Docusate Sodium (Senna/Docusate Sodium 1 Tablet) 2 tablet PO BID [facility] Last Admin: 05/12/20 20:02 Dose: 2 tablet Documented by: Sodium Chloride (0.9% Nacl Peripheral Flush Adult/Peds) 5 - 15 ml IV UD PRN PRN Reason: SALINE FLUSH Last Admin: 05/13/20 07:39 Dose: 10 ml Documented by: Sodium Chloride (0.9% Saline Lock 10 Ml Syringe) 10 - 40 ml IV UD PRN PRN Reason: SALINE FLUSH Medical Necessity - Tobacco Use Smoking Status: Never smoker Tobacco Use: Non-smoker Assessment/Plan All Active Problems (Last Reviewed 01/01/20 @ 10:43 by Silvia Austin) Segmental and somatic dysfunction of thoracic region (Acute) Segmental and somatic dysfunction of pelvic region (Acute) Segmental and somatic dysfunction of lumbar region (Acute) Back pain (Acute) Cystitis (Acute) Cellulitis of right anterior lower leg (Acute) Skin necrosis (Acute) Hematoma of right lower extremity (Acute) [place] (acute kidney injury) (Acute) Dehydration (Acute) Dizziness (Acute) Leukocytosis (Acute) Abdominal pain (Acute) Viral illness (Acute) Acute renal failure (Acute) Hyperglycemia (Acute) Lightheadedness (Acute) Generalized abdominal pain (Acute) Diarrhea (Acute) 1. 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 Continue Pain Medications: Tylenol, meloxicam, oxycodone. We will continue to monitor her pain levels as she did have a block. We discussed the revision knee and postoperative pain control. 3. DVT Prophylaxis: Take 81 mg aspirin twice daily for 4 weeks postoperatively for DVT prophylaxis 4. PT/OT: Weightbearing as tolerated 5. H & H: 12.1/38.3, asymptomatic. 6. Reactive leukocytosis: 13.9, afebrile. Patient did receive Decadron intraoperatively 7. Continue postoperative medical management per medicine: Discussed case with medicine and possible discharge home today. We will continue to monitor her nausea. 8. Continue antibiotics while following cultures: Currently on doxycycline for 1 week postoperatively. Current cultures are pending 9. Encouraged Incentive Spirometry 10. Disposition: Plan will be for possible discharge home today as long as pain is controlled and patient is medically stable. I would like to see how patient does with physical therapy over her 2 sessions today. Patient may require an additional stay if pain becomes a problem. Prescriptions will be E scribed to [facility]. She will follow-up per postop instructions. She does have outpatient physical therapy established. I have reviewed the [place] Automated Rx Reporting System (OARRS) report for this patient for refill pattern and other prescriber involvement as part of the appropriate surveillance for the provision of acute and chronic controlled medications. The report was requested and reviewed on the date of this entry and was considered in the prescribing process.
--- NOTE | 2020-05-13 09:40 | DCINST_ITS ---
Discharge Diet: No Restrictions Discharge Activity: May Not Drive May shower in (days): 1 - Okay to shower if dressing is intact to skin. Turn dressing away from water. Do not submerge underwater for 6 weeks postoperatively. Ice area for (Minutes): 20 - every hour while awake. Weight Bearing Status: Weight bearing as tolerated Elevate: Operative Extremity Additional Activity Instructions:: Wear elastic stockings for 2 weeks after your surgery. Call your doctor if your incision/area has: Continuous Slow Oozing, Sudden Increased Bleeding, Increased Pain/ Swelling, Increased Redness, Foul Smelling Discharge Call your doctor if you observe: Fever of 101 or Higher, Coldness, Increased Pain, Numbness or Tingling, Change in Color, Calf discomfort, Uncontrolled pain Remove Dressing in (days):: 4 - Okay to remove dressing on May 17, 2020 Additional Instructions: Follow [facility] Post-op Instructions. Once postoperative dressing has been removed only use gentle soap and water over the incision. Do not use any ointments, Neosporin, salves, alcohol pads over the incision for 6 weeks postoperatively. Do not submerge underwater for 6 weeks postoperatively. Allergies/Adverse Reactions: Allergies bee pollen Allergy (Verified 05/12/20 11:03) Anaphylaxis latex Allergy (Verified 05/12/20 11:03) Swelling morphine Allergy (Verified 05/12/20 11:03) Other hallucinations Penicillins Allergy (Verified 05/12/20 11:03) Hives hydrocodone bitartrate [From Vicodin] Adverse Reaction (Verified 05/12/20 11:03) Abd cramps/diarrhea Medications to take at Discharge Valsartan [Diovan] 160 mg PO DAILY 02/07/20 Cholecalciferol (VIT D3) [Vitamin D3] 1,000 unit PO DAILY 04/29/20 Acetaminophen [Tylenol] 1,000 mg PO Q8 #100 tab 05/13/20 Aspirin [Aspirin, Baby] 81 mg PO BIDCM #60 tab 05/13/20 Doxycycline 100 mg PO BID #12 cap 05/13/20 Famotidine [Pepcid] 20 mg PO DAILY #30 tab 05/13/20 Meloxicam [Mobic] 7.5 mg PO BID #60 tab 05/13/20 Ondansetron [Zofran] 8 mg PO Q8H PRN PRN #21 tab 05/13/20 Oxycodone [Oxyir] 5 - 10 mg PO Q4H PRN PRN 5 Days #60 tab 05/13/20 Senna/Docusate Sodium [Senokot-S] 2 tab PO BID #14 tab 05/13/20 The following prescriptions were given: Aspirin [Aspirin, Baby] 81 mg PO BIDCM #60 tab Transmission Status: Received by [facility] Doxycycline 100 mg PO BID #12 cap Transmission Status: Received by [facility] Meloxicam [Mobic] 7.5 mg PO BID #60 tab Transmission Status: Received by [facility] Oxycodone [Oxyir] 5 - 10 mg PO Q4H PRN PRN 5 Days #60 tab PRN Reason: Pain Score 4-10 Transmission Status: Received by [facility] Famotidine [Pepcid] 20 mg PO DAILY #30 tab Transmission Status: Received by [facility] Senna/Docusate Sodium [Senokot-S] 2 tab PO BID #14 tab Transmission Status: Received by [facility] Acetaminophen [Tylenol] 1,000 mg PO Q8 #100 tab Transmission Status: Received by [facility] Ondansetron [Zofran] 8 mg PO Q8H PRN PRN #21 tab PRN Reason: Nausea Transmission Status: Received by [facility] Primary Care Physician: Alexi Morin Chi, MD [Primary Care Provider] - Test Results: Test results from this visit will be discussed in further detail at your follow- up appointment, if applicable. Please Follow Up With: [facility] When: 05/17/20 Please Follow Up With: Reyes Avila PA-C When: 05/26/20 @ 9:30 am
[2020-05-13] MEDS: Losartan Potassium 50 MG Tablet PO (10:11)
[2020-05-13] MEDS: Pantoprazole Sodium 40 MG Tablet PO (10:11)
[2020-05-13] MEDS: Senna/Docusate Sodium 1 Tablet 2 TABLET PO (10:12)
[2020-05-13] MEDS: Doxycycline 100 MG CAPSULE PO (10:12)
--- NOTE | 2020-05-13 10:55 | CASEMGMT ---
RN SCOTTY Face to Face with patient for initial transition planning/care coordination assessment. RN CM introduced self and role at [facility]. Patient lying in bed, alert and oriented. Patient willing to participate in assessment and is able to answer all questions appropriately. Care providers, pharmacy, and demographics verified. Patient wishes to discharge home and is setup with [facility] for outpatient therapy. Patient states she has no further needs or concerns at this time. CM to follow for discharge planning needs that may arise. PCP: Mikel Specialists: [facility] Pharmacy: [facility] Insurance: [employer] [facility] Prescription Benefit: yes Living Will/HPOA: yes, Gallo Moon LNOK: , son Living Arrangements: Patient lives with in a 1 story home with 2 steps to enter the home. Patient states she was independent at home prior to surgery Transportation: , family DME/HHC: Patient states she has raised toilet, cane, walker, and grab bars at home. Patient is scheduled for outpatient therapy at [facility] on Sunday. Disposition Plan: Patient to discharge home with outpatient therapy, family support, and follow-up plans in place. Mariposa STRICKLAND, RN, CM
[2020-05-13 10:57] VITALS: BP 120/57; PULSE 76; RESP 18; TEMP 36.5; O2SAT 97
--- NOTE | 2020-05-13 12:30 | PCM.PN.HOSP ---
<Ludwig Pringle - Last Filed: 05/13/20 12:30> Reason for Visit: Right total knee revision POD#1 Subjective: increased nausea and heart burn this AM. Pt feels nausea is due to reflux. Minimal relief with zofran but pt refused phenergan because she does not want to be sleepy. Pt uses OTC meds as needed for reflux at home. No fever/chills. No SOB/cough. No vomiting, diarrhea, constipation. Pain controlled. Vitals/I&O's: Vital Signs Temp Pulse Resp BP Pulse Ox 97.7 F L 76 18 120/57 L 97 05/13/20 10:57 05/13/20 10:57 05/13/20 10:57 05/13/20 10:57 05/13/20 10:57 Oxygen Flow Rate (L/min) 2 Oxygen Delivery Method Room Air Weight: 199 lb Body Mass Index (BMI) 38.8 Finger Stick Blood Glucose 126 Intake and Output for Last 24 Hours 05/11/20 05/12/20 05/13/20 23:59 23:59 23:59 Intake Total 4485.5 / 4485.5 2658.08 / 2658.08 Output Total 400 / 400 1200 / 1200 Balance 4085.5 / 4085.5 1458.08 / 1458.08 General: Alert, Oriented x3, Cooperative HEENT: Atraumatic, PERRLA, EOMI, Normocephalic Neck: Supple, No JVD, Negative Carotid Bruits Lungs: Clear to auscultation, Normal air movement Cardiovascular: Regular rate, No murmurs Abdomen: Bowel Sounds Present, Soft, Non Tender Extremities: No edema, Capillary Refill Less than 3 Seconds Skin: No rashes, No breakdown Musculoskeletal: No Tenderness to Palpation of Joints or Extremities Neurological: Cranial nerves II-XII grossly intact Psych/Mental Status: Normal Affect, Appropriate, Alert and oriented to time, place, person, mood and affect Microbiology Past 72 Hours 05/12/20 Unknown Tissue - Knee Gram Stain - Final 05/12/20 Unknown Tissue - Knee Wound Culture - Preliminary No growth-Final to follow 05/12/20 Unknown Tissue - Knee Gram Stain - Final 05/12/20 Unknown Tissue - Knee Wound Culture - Preliminary No growth-Final to follow 05/12/20 Unknown Tissue - Knee Gram Stain - Final 05/12/20 Unknown Tissue - Knee Wound Culture - Preliminary No growth-Final to follow 05/11/20 13:29 Interface Orders SARS-CoV-2 Antigen (Rapid) - Final Laboratory Results 05/13/20 06:30: WBC 13.9 H, RBC 4.49, Hgb 12.1, Hct 38.3, MCV 85.3, MCH 26.9 L, MCHC 31.6 L, RDW Std Deviation 44.2 H, RDW Coeff of April 14.3, Plt Count 254, MPV 10.3 05/13/20 06:30: Sodium 139, Potassium 4.9, Chloride 110 H, Carbon Dioxide 25.0, Anion Gap 4 L, BUN 12, Creatinine 0.89, Estim Creat Clear Calc 41.04, Est GFR (MDRD) Af Amer 80, Est GFR (MDRD) Non-Af 66, BUN/Creatinine Ratio 13.4, Glucose 124 H, Calcium 8.4 L Current Medications Acetaminophen (Acetaminophen 500 Mg Tablet) 1,000 mg PO Q8 [facility] Last Admin: 05/13/20 05:52 Dose: 1,000 mg Documented by: Aspirin (Aspirin 81 Mg Tab.Chew) 81 mg PO BIDCM [facility] Last Admin: 05/13/20 09:40 Dose: Not Given Documented by: Cholecalciferol (Cholecalciferol (Vit D3) 1,000 Unit (25mcg)) 1,000 unit PO DAILY [facility] Last Admin: 05/13/20 10:12 Dose: 1,000 unit Documented by: Doxycycline Monohydrate (Doxycycline 100 Mg Capsule) 100 mg PO BID [facility] Last Admin: 05/13/20 10:12 Dose: 100 mg Documented by: Enteral Nutritional Formula (Ensure Surgery 237 Ml Liquid) 237 ml PO TIDCM [facility] Last Admin: 05/13/20 09:40 Dose: Not Given Documented by: Famotidine (Famotidine 20 Mg Tablet) 20 mg PO DAILY [facility] Last Admin: 05/13/20 07:39 Dose: 20 mg Documented by: Hydromorphone HCl (Hydromorphone 1 Mg/Ml Syringe) 1 mg IV Q3H PRN PRN PRN Reason: Pain Score 6-10 Ketorolac Tromethamine (Ketorolac 15 Mg/Ml Vial) 15 mg IV Q6H PRN PRN PRN Reason: Pain Score 1-5 Stop: 05/14/20 15:51 Last Admin: 05/12/20 23:25 Dose: 15 mg Documented by: Losartan Potassium (Losartan Potassium 50 Mg Tablet) 50 mg PO DAILY [facility] Last Admin: 05/13/20 10:11 Dose: 50 mg Documented by: Meloxicam (Meloxicam 7.5 Mg Tablet) 7.5 mg PO BID [facility] Ondansetron HCl (Ondansetron 4 Mg/2 Ml Vial) 4 mg IV Q8H PRN PRN PRN Reason: NAUSEA Last Admin: 05/13/20 07:39 Dose: 4 mg Documented by: Oxycodone HCl (Oxycodone 5 Mg Tablet) 5 - 10 mg PO Q4H PRN PRN PRN Reason: Pain Score 4-10 Last Admin: 05/13/20 06:24 Dose: 5 mg Documented by: Promethazine HCl (Promethazine 25 Mg/Ml Syringe) 12.5 mg IM Q6H PRN PRN; Protocol PRN Reason: NAUSEA/VOMITING Senna/Docusate Sodium (Senna/Docusate Sodium 1 Tablet) 2 tablet PO BID [facility] Last Admin: 05/13/20 10:12 Dose: 2 tablet Documented by: Sodium Chloride (0.9% Nacl Peripheral Flush Adult/Peds) 5 - 15 ml IV UD PRN PRN Reason: SALINE FLUSH Last Admin: 05/13/20 07:39 Dose: 10 ml Documented by: Sodium Chloride (0.9% Saline Lock 10 Ml Syringe) 10 - 40 ml IV UD PRN PRN Reason: SALINE FLUSH STROKE Vital Signs/Narrative: Vital Signs Temp Pulse Resp BP Pulse Ox 05/13/20 10:57 97.7 F L 76 18 120/57 L 97 Medical Necessity - Tobacco Use Smoking Status: Never smoker Tobacco Use: Non-smoker Assessment/Plan 1. Right knee revision POD#1 - pain controlled. Empiric doxy per ortho until cx's back 2. Nausea (no vomiting) and heartburn - prn antiemetics, protonix x1 given. 3. HTN - stable 4. Peripheral neuropathy - unclear etiology. no new or worsening symptoms at this time. DVT ppx: per ortho - aspirin bid Thank you for the opportunity to participate in the care of this patient. This patient was seen by Ludwig Pringle PA-C under the supervision of Dr. Argueta. <Rosanne Argueta E - Last Filed: 05/13/20 13:03> Vitals/I&O's: Vital Signs Temp Pulse Resp BP Pulse Ox 97.7 F L 76 18 120/57 L 97 05/13/20 10:57 05/13/20 10:57 05/13/20 10:57 05/13/20 10:57 05/13/20 10:57 Oxygen Flow Rate (L/min) 2 Oxygen Delivery Method Room Air Weight: 199 lb Body Mass Index (BMI) 38.8 Finger Stick Blood Glucose 126 Intake and Output for Last 24 Hours 05/11/20 05/12/20 05/13/20 23:59 23:59 23:59 Intake Total 4485.5 / 4485.5 2658.08 / 2658.08 Output Total 400 / 400 1200 / 1200 Balance 4085.5 / 4085.5 1458.08 / 1458.08 Microbiology Past 72 Hours 05/12/20 Unknown Tissue - Knee Gram Stain - Final 05/12/20 Unknown Tissue - Knee Wound Culture - Preliminary No growth-Final to follow 05/12/20 Unknown Tissue - Knee Gram Stain - Final 05/12/20 Unknown Tissue - Knee Wound Culture - Preliminary No growth-Final to follow 05/12/20 Unknown Tissue - Knee Gram Stain - Final 05/12/20 Unknown Tissue - Knee Wound Culture - Preliminary No growth-Final to follow 05/11/20 13:29 Interface Orders SARS-CoV-2 Antigen (Rapid) - Final Laboratory Results 05/13/20 06:30: WBC 13.9 H, RBC 4.49, Hgb 12.1, Hct 38.3, MCV 85.3, MCH 26.9 L, MCHC 31.6 L, RDW Std Deviation 44.2 H, RDW Coeff of April 14.3, Plt Count 254, MPV 10.3 05/13/20 06:30: Sodium 139, Potassium 4.9, Chloride 110 H, Carbon Dioxide 25.0, Anion Gap 4 L, BUN 12, Creatinine 0.89, Estim Creat Clear Calc 41.04, Est GFR (MDRD) Af Amer 80, Est GFR (MDRD) Non-Af 66, BUN/Creatinine Ratio 13.4, Glucose 124 H, Calcium 8.4 L Current Medications Acetaminophen (Acetaminophen 500 Mg Tablet) 1,000 mg PO Q8 [facility] Last Admin: 05/13/20 05:52 Dose: 1,000 mg Documented by: Aspirin ([facility] Last Admin: 05/13/20 09:40 Dose: Not Given Documented by: Cholecalciferol (Cholecalciferol (Vit D3) 1,000 Unit (25mcg)) 1,000 unit PO DAILY [facility] Last Admin: 05/13/20 10:12 Dose: 1,000 unit Documented by: Doxycycline Monohydrate (Doxycycline 100 Mg Capsule) 100 mg PO BID [facility] Last Admin: 05/13/20 10:12 Dose: 100 mg Documented by: Enteral Nutritional Formula (Ensure Surgery 237 Ml Liquid) 237 ml PO TIDCM [facility] Last Admin: 05/13/20 09:40 Dose: Not Given Documented by: Famotidine (Famotidine 20 Mg Tablet) 20 mg PO DAILY [facility] Last Admin: 05/13/20 07:39 Dose: 20 mg Documented by: Hydromorphone HCl (Hydromorphone 1 Mg/Ml Syringe) 1 mg IV Q3H PRN PRN PRN Reason: Pain Score 6-10 Ketorolac Tromethamine (Ketorolac 15 Mg/Ml Vial) 15 mg IV Q6H PRN PRN PRN Reason: Pain Score 1-5 Stop: 05/14/20 15:51 Last Admin: 05/12/20 23:25 Dose: 15 mg Documented by: Losartan Potassium (Losartan Potassium 50 Mg Tablet) 50 mg PO DAILY [facility] Last Admin: 05/13/20 10:11 Dose: 50 mg Documented by: Meloxicam (Meloxicam 7.5 Mg Tablet) 7.5 mg PO BID [facility] Ondansetron HCl (Ondansetron 4 Mg/2 Ml Vial) 4 mg IV Q8H PRN PRN PRN Reason: NAUSEA Last Admin: 05/13/20 07:39 Dose: 4 mg Documented by: Oxycodone HCl (Oxycodone 5 Mg Tablet) 5 - 10 mg PO Q4H PRN PRN PRN Reason: Pain Score 4-10 Last Admin: 05/13/20 06:24 Dose: 5 mg Documented by: Promethazine HCl (Promethazine 25 Mg/Ml Syringe) 12.5 mg IM Q6H PRN PRN; Protocol PRN Reason: NAUSEA/VOMITING Senna/Docusate Sodium (Senna/Docusate Sodium 1 Tablet) 2 tablet PO BID [facility] Last Admin: 05/13/20 10:12 Dose: 2 tablet Documented by: Sodium Chloride (0.9% Nacl Peripheral Flush Adult/Peds) 5 - 15 ml IV UD PRN PRN Reason: SALINE FLUSH Last Admin: 05/13/20 07:39 Dose: 10 ml Documented by: Sodium Chloride (0.9% Saline Lock 10 Ml Syringe) 10 - 40 ml IV UD PRN PRN Reason: SALINE FLUSH STROKE Vital Signs/Narrative: Vital Signs Temp Pulse Resp BP Pulse Ox 05/13/20 10:57 97.7 F L 76 18 120/57 L 97 Assessment/Plan Hospitalist note: I am seeing this patient in conjunction with Ludwig Pringle. I independently seen and examined the patient. Progress note above, laboratory data and imaging studies reviewed and I concur with above treatment plan. Today, patient complained of heartburn and some nausea. She does have a history of GERD. Minimal relief with Zofran and refused Phenergan. Protonix was ordered. Right knee pain is well controlled. Her vital signs are stable. - Physical Exam General: Alert, Oriented x3, Cooperative, No apparent distress. HEENT: Atraumatic, PERRLA, EOMI. Neck: Supple, No JVD, Negative Carotid Bruits, Trachea Midline, Thyroid Normal. Lungs: Clear to auscultation, Normal air movement, No rhonchi, No wheeze, No rales. Cardiovascular: Regular rate, Regular Rhythm, Normal S1, Normal S2, PMI Normal. Abdomen: Bowel Sounds Present, Soft, Non Tender, Non-Distended, No Hepato-splenomegaly. Extremities: No clubbing, No cyanosis, No edema Skin: No rashes, No breakdown Neurological: Cranial nerves are intact, neuro grossly intact Vital Signs are stable. Assessment and plan: #1 status post revision of right total knee replacement: Postoperative day 1. She is on p.o. doxycycline. She is on OxyIR as needed for pain, pain is well controlled. Her vital signs are stable. Repeat CBC and BMP revealed mild leukocytosis which is likely reactive, she has been afebrile. Orthopedic surgery on the case. For medical standpoint, patient can be discharged home today after improvement of her heartburn and nausea. #2 GERD/nausea/heartburn: No improvement with Zofran, given 1 dose of Protonix, will try Mylanta as needed. Will monitor. #3 other chronic medical problems: Stable, continue current medications as above. This note was generated with [employer] dictation software. It may contain incorrect words, spelling, and punctuation that were not noted in checking the note before signing. Inpatient E&M: 72636 Subs Hosp L2
[2020-05-13 13:00] VITALS: RESP 18
[2020-05-13 13:48] VITALS: BP 126/61; PULSE 59; RESP 15; RESP 18; TEMP 35.6; O2SAT 97
[2020-05-13] MEDS: Mag Hydrox/Al Hydrox/Simeth 30 ML UDC 15 ML PO (14:34)
== END 2020-05-13 16:47 | disposition home or self-care (01) | DRG 467 ==
LOC: ACINP 16:09 → MS3 18:36
PROVIDERS: Anesthesiology; Admitting Provider Specialist; PCP Family Medicine Geriatric Medicine; Referring Provider Specialist; Visit Provider Specialist
PROC: 0SPC0JZ Removal of Synthetic Substitute from Right Knee Joint, Open Approach (ICD-10-PCS; principal; 2020-05-12 12:50)
DX: T84.032A Mechanical loosening of internal right knee prosthetic joint, initial encounter (principal); L03.115 Cellulitis of right lower limb; T84.84XA Pain due to internal orthopedic prosthetic devices, implants and grafts, initial encounter; Y79.2 Prosthetic and other implants, materials and accessory orthopedic devices associated with adverse incidents; Y83.1 Surgical operation with implant of artificial internal device as the cause of abnormal reaction of the patient, or of later complication, without mention of misadventure at the time of the procedure; I10 Essential (primary) hypertension; G62.9 Polyneuropathy, unspecified; Z96.653 Presence of artificial knee joint, bilateral; M79.7 Fibromyalgia; K21.9 Gastro-esophageal reflux disease without esophagitis
CPT/HCPCS: 36415; 73560; 80048; 82962; 83735; 85025; 85027; 87015; 87070; 87075; 87081; 87102; 87116; 87176; 87205; 87206; 87426; 93005; 97110; 97116; 97162; 97166; 97530; 99251; C1776; C9803; J7120; A4216; G0463; J2405

== ENCOUNTER → 2020-05-24 09:00 | Outpatient (CLI) | payer MEDICARE, SELFPAY ==
[2020-05-12 18:16] VITALS: BMI 38.8
[2020-05-24 12:34] LABS: Absolute Lymphocyte Count 1.44 X10^3/uL (0.83-4.51); Absolute Neutrophil Count 4.2 X10^3/uL (2.0-7.7); Basophil# 0.07 X10^3/uL; Eosinophil# 0.76 X10^3/uL; Eosinophils% 10.8 % (0-5); Hematocrit 39.9 % (37-47); Hemoglobin 12.3 g/dL (12.0-15.0); Lymphocyte # 1.44 X10^3/ul (4.0); Lymphocyte % 20.5 % (19-41); Mean Corp Hgb Conc 30.8 g/dL (32-36); Mean Corpuscular Hgb 26.5 pg (27.0-32.0); Mean Platelet Vol. 9.8 fl (6.2-12.0); Monocyte# 0.58 X10^3/uL; Monocyte% 8.3 % (0-10); NRBC Flagged by Analyzer 0 % (0-5); Neutrophil # 4.15 X10^3/uL (2.7-7.7); Platelet Count 372 K/mm3 (150-450); RBC Distribution Width CV 14.5 % (11.6-14.6); RBC Distribution Width SD 45.5 fl (35.1-43.9); Red Blood Count 4.64 M/mm3 (4.2-5.4)
[2020-05-24 12:54] LABS: ALB/GLOB Ratio 0.7 RATIO (0.9-2.4); AST(SGOT) 23 U/L (15-37); Alanine Aminotransfer ALT/SGPT 20 U/L (13-56); Albumin, Serum 3.1 g/dL (3.2-5.0); Alkaline Phosphatase 111 U/L (45-117); Anion Gap 6 (5-15); BUN 21 mg/dL (7-18); BUN/Creat Ratio 25.4 RATIO (10-20); Calcium,Total 9.3 mg/dL (8.5-10.1); Chloride 105 mmol/L (98-107); Creatinine, Serum 0.83 mg/dL (0.55-1.02); EST Glomerular Filtration Rate 72 mL/min (>60); Est Glom Filt Rate - Afr Amer 87 mL/min (>60); Globulin 4.5 g/dL (2.2-4.2); Glucose 81 mg/dL (74-106); Potassium 4.1 mmol/L (3.5-5.1); Protein, Total 7.6 g/dL (6.4-8.2); Sodium Level 139 mmol/L (136-145)
== END ==
PROVIDERS: PCP Family Medicine Geriatric Medicine; Visit Provider Family Medicine Geriatric Medicine
DX: E55.9 Vitamin D deficiency, unspecified (principal); I10 Essential (primary) hypertension; T84.84XD Pain due to internal orthopedic prosthetic devices, implants and grafts, subsequent encounter; Z96.651 Presence of right artificial knee joint
CPT/HCPCS: 36415; 80053; 82306; 84443; 85025; 97110

== ENCOUNTER → 2020-05-27 12:40 | Outpatient (CLI) | payer MEDICARE, SELFPAY ==
[2020-05-12 18:16] VITALS: BMI 38.8
--- NOTE | 2020-05-27 12:48 | RAD_ITS ---
HISTORY: Constipation after knee replacement one week ago. Exam is for images of the abdomen. Comparison study is a CT scan of the abdomen and pelvis from October 14, 2018. Findings: Cholecystectomy clips. Levoscoliosis of the thoracolumbar spine. Severe multilevel degenerative disc disease with facet arthropathy. Sacroiliitis. Hip arthritis. Sclerosis of the pubic symphysis. Surgical clips within the right breast. Bowel gas pattern is normal. I do not perceived constipation. I did not proceed pathologically distended loops of bowel. No free air. RAD/Abd Inc Decub and/or Erect IMPRESSION: No evidence for constipation. at 2232 Reported and signed by: Eduardo Velázquez MD Electronically Signed: Eduardo Velázquez MD at 22:30 EST Tel , Service support ,
== END ==
PROVIDERS: PCP Family Medicine Geriatric Medicine; Referring Provider Family Medicine Geriatric Medicine; Visit Provider Family Medicine Geriatric Medicine
DX: K56.41 Fecal impaction (principal)
CPT/HCPCS: 74019

== ENCOUNTER → 2020-07-06 07:26 | Outpatient (CLI) | payer MEDICARE, SELFPAY ==
[2020-05-12 18:16] VITALS: BMI 38.8
--- NOTE | 2020-07-06 07:28 | CT_ITS ---
STUDY: CT SOFT TISSUE NECK WITH CONTRAST REASON FOR EXAM: Female, 75 years old. LOCALIZED ENLARGED LYMPH NODES RADIATION DOSAGE (If Supplied By Facility): CTDIvol = ( 17.55 ) mGy, DLP = ( 508.48 ) mGycm TECHNIQUE: The patient was scanned in a multi-detector CT scanner. High resolution transaxial imaging was performed following intravenous administration of IV 75mL Isovue-370. Sagittal and coronal images were reconstructed. Individualized dose optimization techniques were used for this CT. COMPARISON: None. FINDINGS: Normal bilateral parotid glands. Normal bilateral concession supervisor spaces. Normal bilateral parapharyngeal spaces. Normal bilateral carotid spaces. Normal bilateral sublingual and submandibular glands and spaces. Normal visualized nasopharynx. Normal retropharyngeal space. Normal perivertebral space. Normal visualized bilateral faucial tonsils. The visualized tongue, tongue base and oropharynx are normal. The visualized cervical lymph nodes (levels I-) are within normal size limits, and maintain normal morphology. There is no demonstrated solid or cystic mass lesion. There is no abnormal contrast enhancement. Normal epiglottis, bilateral vallecula and hypopharynx. The pre-epiglottic and paraglottic adipose spaces are normal. Normal visualized bilateral piriform sinuses, aryepiglottic folds, vocal cords, and arytenoid-cricoid articulations. Normal subglottic trachea. Normal bilateral lobes of the thyroid gland. Normal visualized pulmonary apices. Normal visualized paranasal sinuses. There is multilevel degenerative changes of the cervical spine. CT/Soft Tissue Neck WITH Contrast IMPRESSION: Normal enhanced CT examination of the soft tissues of the neck. Electronically Signed: Peter Davidson MD at 13:10 EDT , Service support ,
[2020-07-06 07:40] LABS: CREATININE FINGERSTICK 1.6 mg/dL (0.55-1.02)
== END ==
PROVIDERS: PCP Family Medicine Geriatric Medicine; Referring Provider Family Medicine Geriatric Medicine; Visit Provider Family Medicine Geriatric Medicine
DX: N39.0 Urinary tract infection, site not specified (principal); R59.0 Localized enlarged lymph nodes
CPT/HCPCS: 70491; 87077; 87086; 87088; 87186; Q9967

== ENCOUNTER 2020-07-14 12:30 | Outpatient (RCR) | payer MEDICARE, SELFPAY ==
[2020-05-12 18:16] VITALS: BMI 38.8
--- NOTE | 2020-05-17 16:00 | HP.PTEVAL ---
Patient's Visit Information JIE HENRIQUEZ is a 75 year old F referred to Physical Therapy by Kashif Avila PA-C with a diagnosis of R knee revision. Date of Evaluation: 05/17/20 Physical Therapist: Estrellita Meade DPT - Visit Plan Frequency: 3x /Week Duration: 4 Weeks Plan: Right TKR revision 05/12/2020-improve ROM, strength, balance , flexibilty and functional mobility. - Subjective Pt had revision on 05/12. sister is here from [place]- gets clothes on and get food. has not been able to do anything because of pain. has bone repairs underneath knee. 5 exericse HEP: everyday 2x/day (ankle pumps, knee ext, kne flexion slides in sitting and in prone, and SLR). pain: 6/10 sharp. achey. worst: 10/10 exercising. best: 2/10 sitting with leg out to the side. meds: 10 bottles, oxocodine and melocam for pain, tyenol - takes meds before PT. PMHx: both kness replaced before (R 1999, L 2003). sleep: sleeping in bed, at 4 o'clock moves to recliner becaue she needs assistance getting into bed. but is able to get out of bed. has ice machine, will rest leg on pillow. 2 steps to get into house, basements laundry- but is at home to help when sister leaves - Objective posture: FS,RS, sitting with LE ER. palpation: bad pain along end of incision, medial joint line, quad. observation: no drainage. patellar girth: 53cm, girth 6 suprapatellar: 63cm. Strength: knee: flex 8.7cm ext: 9.4cm. ROM: knee flex:75 degrees ext: 10 degrees. senensation: WNL to light touch. TU.19s. 30 second sit to stand: 9. stairs: BUE support with UE pull ascending, poor eccentric control with descending, decreased speed overall. WOMAC score: 65.6% - Goals Goal 1:: Patient will be able to perform HEP I and progression Goal Time Frame: 4-6 Weeks Goal 2:: Patient will demonstrate increased ROM 0-115 degrees in order to perform ADLs. Goal Time Frame: 4-6 Weeks Goal 3:: Patient will report decrease in pain to 0/10 in order to perform I ADLs. Goal Time Frame: 4-6 Weeks Goal 4:: Patient will ambulate >300 feet with a normalized gait pattern and LRD Goal Time Frame: 4-6 Weeks Goal 5:: Patient will asc/desc 8 stairs recip with 1 HR Goal Time Frame: 4-6 Weeks - Rehabilitation Potential Physical Therapy Diagnosis: Pt demonstrates decreased ROM, strength, balance, flexibilty, and ability to perform functional mobility. Rehabilitation Potential: Good - Anticipated Interventions Patient/Client Instruction: Educate patient on: Plan of Care For the Purpose of:: To improve muscle performance and motor function Therapeutic Exercise to Include: Strength training, Endurance training, Balance training, Coordination, Agility training, Body mechanics, Postural training, Flexibilty training, Gait and locomotor training, Neuromotor development For the Purpose of:: To increase tolerance to activity/condition/position Functional Training to Include: ADL Training, Functional home training For the Purpose of:: To improve performance and independence with ADL's Assistive Devices: Wheeled walker Cryotherapy (ice pack, ice massage): Yes Thermo therapy (hot pack): Yes Ultrasound (thermal/non thermal): No Thank you for the opportunity to evaluate your patient. For Medicare and Medicare HMO plans, please review the plan of care and approve it. It will need to be FAXED BACK to us at [phone] for Medicare purposes. For Medicare only, by signing this I certify the plan of care. Please let me know if there are questions or concerns regarding this plan of care. Physician Signature: Date:
--- NOTE | 2020-06-21 12:42 | HP.PTREVAL ---
Kashif Avila PA-C, It has been my pleasure to treat JIE HENRIQUEZ over the last 9 visits for R knee revision 05/12/20. Please see the progress note below for an update on the physical therapy plan of care! Subjective: Knee is sore today. Pt reports she was on it a lot this weekend with a birthday libertarian and cleaning the house. Pt reports that the back of knee is sore when walking and wants to improve stairs without pain. Pt reports that yesterday she had to take gabapentin for pain but normally does not need it. Objective/Function: posture: FS,RS, sitting with LE ER. palpation: tender along hamstring insertion. patellar girth: 50cm, girth 6 suprapatellar: 56.5cm. Strength: knee: flex 20.2, 22.3 ext: 17.3, 19.9. ROM: knee flex:115 degrees ext: 6 degrees. senensation: WNL to light touch. TU.49s with no AD. 30 second sit to stand: 12. stairs: BUE support reciporcal , poor eccentric control with descending. WOMAC score: 25% Plan Plan: Right TKR revision 05/12/2020-improve ROM, strength, balance, flexibilty and functional mobility. - 06/21 continue with plan to progress towards goals. Goals Goal 1:: Patient will be able to perform HEP I and progression Goal Time Frame: 4-6 Weeks Goal Progress: Progressing Goal 2:: Patient will demonstrate increased ROM 0-115 degrees in order to perform ADLs. Goal Time Frame: 4-6 Weeks Goal Progress: Progressing Goal 3:: Patient will report decrease in pain to 0/10 in order to perform I ADLs. Goal Time Frame: 4-6 Weeks Goal Progress: Progressing Goal 4:: Patient will ambulate >300 feet with a normalized gait pattern and LRD Goal Time Frame: 4-6 Weeks Goal Progress: Progressing Goal 5:: Patient will asc/desc 8 stairs recip with 1 HR Goal Time Frame: 4-6 Weeks Goal Progress: Progressing Anticipated Interventions Patient/Client Instruction: Educate patient on: Plan of Care For the Purpose of:: To improve muscle performance and motor function Therapeutic Exercise to Include: Strength training, Endurance training, Balance training, Coordination, Agility training, Body mechanics, Postural training, Flexibilty training, Gait and locomotor training, Neuromotor development For the Purpose of:: To increase tolerance to activity/condition/position Functional Training to Include: ADL Training, Functional home training For the Purpose of:: To improve performance and independence with ADL's Assistive Devices: Wheeled walker Cryotherapy (ice pack, ice massage): Yes Thermo therapy (hot pack): Yes Ultrasound (thermal/non thermal): No Please do not hesitate to contact me at [phone] by phone or if you have questions or concerns regarding this new plan of care! Sincerely, CHICO LangT
--- NOTE | 2020-07-14 13:25 | HP.PTDCSUM ---
It has been my pleasure to treat JIE HENRIQUEZ referred by Kashif vAila PA-C, with the diagnosis of R knee revision 05/12/20 for a total of 12 visit(s). Discharge Date: Please see the following information for a summary of their discharge status. Subjective: Patient reports that she is making good progress. She has been working on stairs at home but the leg has been a little swollen. Goes back to the [facility] on August 04. Sleep: sometimes disturbed. She sat for 3 hours at [facility] last night and she was so sore after getting back up. Worst: 8/10 Best: 2/10 most of the time. She is wearing compression socks but its still pretty sore even to touch. right knee Pain Intensity (Out of 10): 3 % Improvement: 60 Objective/Function: posture: fair throughout in both chair and plinth palpation: tender along medial joint line and into the calf. . patellar girth: 43cm, girth 6 suprapatellar: 54.5cm. Strength: knee: flex 22.9 ext: 27.4. ROM: knee flex:118 degrees ext: 4 degrees. senensation: WNL to light touch. TU.13s with no AD. 30 second sit to stand: 12. stairs: BUE support reciporcal WOMAC score: 25% Goal 1:: Patient will be able to perform HEP I and progression Goal Progress: Goal Met Goal 2:: Patient will demonstrate increased ROM 0-115 degrees in order to perform ADLs. Goal Progress: Progressing Goal 3:: Patient will report decrease in pain to 0/10 in order to perform I ADLs. Goal Progress: Progressing Goal 4:: Patient will ambulate >300 feet with a normalized gait pattern and LRD Goal Progress: Progressing Goal 5:: Patient will asc/desc 8 stairs recip with 1 HR Goal Progress: Progressing Plan: [facility] If there are questions or concerns regarding this patient's physical therapy, please feel free to call me at [phone]. Thank you for the referral of this patient. Sincerely, Estrellita Meade DPT
== END 2020-07-14 14:44 | disposition home or self-care (01) ==
LOC: PT 12:30
PROVIDERS: PCP Family Medicine Geriatric Medicine; Referring Provider Physician Assistant Surgical; Visit Provider Physician Assistant Surgical
DX: T84.84XD Pain due to internal orthopedic prosthetic devices, implants and grafts, subsequent encounter (principal); Z96.651 Presence of right artificial knee joint
CPT/HCPCS: 97110; 97162; 97164

== ENCOUNTER → 2020-08-05 11:24 | Outpatient (CLI) | payer MEDICARE, SELFPAY ==
[2020-05-12 18:16] VITALS: BMI 38.8
[2020-08-05 12:28] LABS: Erythrocyte Sedimentation Rate 11 mm/hr (0-30)
[2020-08-05 12:30] LABS: Absolute Neutrophil Count 4.8 X10^3/uL (2.0-7.7); Basophil# 0.05 X10^3/uL; Basophil% 0.7 % (0-1); Eosinophil# 0.15 X10^3/uL; Eosinophils% 2.1 % (0-5); Hematocrit 43.4 % (37-47); Hemoglobin 13.7 g/dL (12.0-15.0); Lymphocyte % 20.8 % (19-41); Mean Corp Hgb Conc 31.6 g/dL (32-36); Mean Corpuscular Hgb 27.1 pg (27.0-32.0); Mean Corpuscular Volume 85.9 fL (81-99); Mean Platelet Vol. 10.1 fl (6.2-12.0); Monocyte% 9.7 % (0-10); NRBC Flagged by Analyzer 0 % (0-5); Neutrophil # 4.79 X10^3/uL (2.7-7.7); Neutrophil % 66.4 % (47-70); Platelet Count 302 K/mm3 (150-450); RBC Distribution Width SD 43.5 fl (35.1-43.9); Red Blood Count 5.05 M/mm3 (4.2-5.4); White Blood Count 7.2 K/mm3 (4.4-11.0)
[2020-08-05 12:53] LABS: CRP 8.06 mg/L (0.0-3.0)
--- NOTE | 2020-08-05 13:09 | VDLE_ITS ---
Reason For Study: pain RIGHT GSV is normal. CFV is compressible, spontaneous, phasic, competent and demonstrates normal augmentation. FV is compressible, spontaneous, phasic, competent and demonstrates normal augmentation. POP V is compressible, spontaneous, phasic, competent and demonstrates normal augmentation. T/P Trunk is compressible. PTV is compressible. RT PerV is compressible. Procedure This is a venous duplex using B-mode, color flow and spectral Doppler. Exam performed in department. The exam was abbreviated due to the COVID 19 protocol. The exam was diagnostic. A preliminary report was called and/or faxed to Dr. Lagunas. VL/Venous Duplex US, Unilateral Interpretation Summary Deep veins of the right lower extremity are patent and compressible segmentally . There is no evidence of right lower extremity deep vein thrombosis. Valvular competence samantha ears intact within the proximal deep venous system on the right . The right great saphenous vein a ppears patent and compressible segmentally. Ordering Physician: Dimas Lagunas Performed By: Guicho Reyes RVT
== END ==
PROVIDERS: PCP Family Medicine Geriatric Medicine; Referring Provider Specialist; Visit Provider Specialist
DX: M79.661 Pain in right lower leg (principal); T84.84XD Pain due to internal orthopedic prosthetic devices, implants and grafts, subsequent encounter
CPT/HCPCS: 36415; 85025; 85652; 86140; 93971

== ENCOUNTER → 2020-08-09 09:05 | Outpatient (CLI) | payer MEDICARE, SELFPAY ==
[2020-05-12 18:16] VITALS: BMI 38.8
[2020-08-09 10:36] LABS: RBC /Synovial Fluid 0.105 10^6/uL (0); Synovial Fld Mononuclear WBC % 65.1 %; Synovial Fld Polynuclear WBC # 0.213 10^3/uL; Synovial Fld Polynuclear WBC % 34.9 %
[2020-08-09 10:37] LABS: AUTO B FLUID DILUENT BKGD CT WBC <0.1 RBC <0.01 (W<.1,R<.01); Appearance /Synovial Fluid Cloudy (CLEAR); Color / Synovial Fluid Red (Pale Yellow); Source / Synovial Fluid RIGHT KNEE; Viscosity / Synovial Fluid Sl. Viscous (HIGH)
[2020-08-09 11:39] LABS: Lymph 33 %; Monocyte /Synovial Fluid 8 %; Neutrophil 57 % (0-25); Other Cell /Synovial Fluid 2 %
[2020-08-09 11:42] LABS: Body Fluid QC Type(s) BF1Q
[2020-08-10 11:07] LABS: Pathologist Comment Reviewed
== END ==
PROVIDERS: PCP Family Medicine Geriatric Medicine; Referring Provider Specialist; Visit Provider Specialist
DX: Z96.651 Presence of right artificial knee joint (principal)
CPT/HCPCS: 87015; 87070; 87075; 87101; 87116; 87205; 87206; 89050; 89051

== ENCOUNTER → 2020-10-06 10:13 | Outpatient (CLI) | payer MEDICARE, SELFPAY ==
[2020-09-09 13:27] VITALS: BMI 37.3
--- NOTE | 2020-10-06 10:17 | VDLE_ITS ---
Reason For Study: Varicose veins RIGHT LEFT CFV is compressible, spontaneous, phasic, CFV is compressible, spontaneous, phasic, competent and demonstrates normal competent, and demonstrates normal augmentation. augmentation. FV is compressible, spontaneous, phasic, FV is compressible, spontaneous, phasic, competent and demonstrates normal competent and demonstrates normal augmentation. augmentation. POP V is compressible, spontaneous, phasic, POP V is compressible, spontaneous, phasic, competent and demonstrates normal competent and demonstrates normal augmentation. augmentation. T/P Trunk is compressible. T/P Trunk is compressible. PTV is compressible. PTV is compressible. RT PerV is compressible. LT PerV is compressible. SFJ is INCOMPETENT and measures 0.84 x 0.89 SFJ is INCOMPETENT and measures 1.11 x 1.04 cm. cm. GSV proximal thigh measures 0.56 x 0.59 cm. GSV proximal thigh measures 0.66 x 0.66 cm. GSV at knee measures 0.40 x 0.42 cm. GSV at knee measures 0.55 x 0.56 cm. GSV INCOMPETENT throughout for greater than GSV INCOMPETENT throughout for greater than 0.5 seconds. 0.5 seconds. ASV from junction is INCOMPETENT for greater ASV from junction is INCOMPETENT for greater than than 0.5 seconds and measures 0.55 x than than 0.5 seconds and measures 0.35 x 0.56 cm. 0.33 cm. ASV mid thigh is INCOMPETENT for greater than ASV distal thigh is INCOMPETENT for greater 0.5 seconds and measures 0.32 x 0.32 cm. than 0.5 seconds and measures 0.56 x 0.60 cm. ASV proximal calf is INCOMPETENT for greater ASV mid calf is INCOMPETENT for greater than than 0.5 seconds and measures 0.25 x 0.24 cm. 0.5 seconds and measures 0.44 x 0.43 cm. SSV at junction is competent and measures SSV at junction is competent and measures 0.23 x 0.22 cm. 0.18 x 0.18 cm. Procedure This is a venous duplex using B-mode, color flow and spectral Doppler. Exam performed in department. A preliminary report was called and/or faxed to [facility]. VL/Venous Duplex US - Pedro Extrem Interpretation Summary Bilateral no DVT or SVT noted. Right GSV 6 mm with reflux throughout. Right ASV 5.6 mm with reflux throughout the thigh into the calf. Left GSV 6.6 mm with reflux throughout. Lef t ASV 6 mm with reflux throughout into the calf. Ordering Physician: Maco Staples Referring Physician: Alexi Morin Chi Performed By: Mariposa Elizabeth RVT
== END ==
PROVIDERS: PCP Family Medicine Geriatric Medicine; Referring Provider Surgery Vascular Surgery; Visit Provider Surgery Vascular Surgery
DX: I83.891 Varicose veins of right lower extremity with other complications (principal); M81.0 Age-related osteoporosis without current pathological fracture; G40.909 Epilepsy, unspecified, not intractable, without status epilepticus; K21.9 Gastro-esophageal reflux disease without esophagitis
CPT/HCPCS: 93970

== ENCOUNTER → 2020-10-20 14:13 | Outpatient (CLI) | payer MEDICARE, SELFPAY ==
[2020-10-14 15:24] VITALS: BMI 37.3
[2020-10-20 15:05] LABS: Absolute Lymphocyte Count 1.63 X10^3/uL (0.83-4.51); Absolute Neutrophil Count 4.4 X10^3/uL (2.0-7.7); Basophil# 0.04 X10^3/uL; Basophil% 0.6 % (0-1); Eosinophil# 0.22 X10^3/uL; Eosinophils% 3.2 % (0-5); Hematocrit 42.1 % (37-47); Hemoglobin 13.2 g/dL (12.0-15.0); Lymphocyte # 1.63 X10^3/ul (0.83-4.51); Lymphocyte % 23.8 % (19-41); Mean Corp Hgb Conc 31.4 g/dL (32-36); Mean Corpuscular Hgb 26.3 pg (27.0-32.0); Mean Corpuscular Volume 83.9 fL (81-99); Mean Platelet Vol. 9.9 fl (6.2-12.0); Monocyte# 0.57 X10^3/uL; Monocyte% 8.3 % (0-10); NRBC Flagged by Analyzer 0 % (0-5); Neutrophil # 4.36 X10^3/uL (2.7-7.7); Neutrophil % 63.8 % (47-70); Platelet Count 302 K/mm3 (150-450); RBC Distribution Width CV 14.4 % (11.6-14.6); RBC Distribution Width SD 43.8 fl (35.1-43.9); Red Blood Count 5.02 M/mm3 (4.2-5.4); White Blood Count 6.8 K/mm3 (4.4-11.0)
[2020-10-20 15:17] LABS: ALB/GLOB Ratio 0.8 RATIO (0.9-2.4); AST(SGOT) 22 U/L (15-37); Alanine Aminotransfer ALT/SGPT 16 U/L (13-56); Albumin, Serum 3.3 g/dL (3.2-5.0); Alkaline Phosphatase 106 U/L (45-117); Anion Gap 4 (5-15); BUN 19 mg/dL (7-18); BUN/Creat Ratio 23.4 RATIO (10-20); Calcium,Total 9.4 mg/dL (8.5-10.1); Chloride 108 mmol/L (98-107); Creatinine, Serum 0.81 mg/dL (0.55-1.02); EST Glomerular Filtration Rate 74 mL/min (>60); Est Glom Filt Rate - Afr Amer 89 mL/min (>60); Globulin 4.4 g/dL (2.2-4.2); Glucose 83 mg/dL (74-106); Potassium 4.5 mmol/L (3.5-5.1); Protein, Total 7.7 g/dL (6.4-8.2); Sodium Level 141 mmol/L (136-145)
== END ==
PROVIDERS: PCP Family Medicine Geriatric Medicine; Visit Provider Family Medicine Geriatric Medicine
DX: R10.9 Unspecified abdominal pain (principal)
CPT/HCPCS: 36415; 80053; 85025; 87086

== ENCOUNTER → 2020-10-20 16:24 | Outpatient (CLI) | payer MEDICARE, SELFPAY ==
[2020-10-14 15:24] VITALS: BMI 37.3
--- NOTE | 2020-10-20 18:25 | CT_ITS ---
INDICATION: ABD PAIN EXAMINATION: CT Abdomen And Pelvis W/ Contrast Injection TECHNIQUE: Helically acquired images were obtained of the abdomen and pelvis after IV contrast. A radiation dose optimization technique was used for this scan. IV Contrast dosage and agent: Oral and amp; IV Gastrografin and amp; 100mL Isovue-300 Oral contrast: Yes. COMPARISON: 10/14/2018. FINDINGS: Visualized lung bases: Unremarkable Liver: Unremarkable Gallbladder: Surgically absent. Spleen: Unremarkable Pancreas: Unremarkable Adrenal Glands: Unremarkable Kidneys: Scattered too small to characterize subcentimeter hypodensities bilaterally. Vasculature: Mild scattered aortoiliac atherosclerotic calcifications. GI Tract: Scattered diverticula throughout the colon without evidence of inflammation. Lymphadenopathy: None Peritoneum: No ascites. Bladder: Unremarkable Reproductive organs: Status post hysterectomy. Bones/Soft tissues: There are diffuse degenerative changes of the spine. 4 mm anterolisthesis L4 on L5. CT/Abdomen/Pelvis WITH Contrast IMPRESSION: No acute abnormalities in the abdomen or pelvis. Diverticulosis without evidence of acute diverticulitis. Grade 1 anterolisthesis L4 on L5. Electronically Signed: Bakari Abbott MD at 18:58 EDT Tel , Service support ,
== END ==
PROVIDERS: PCP Family Medicine Geriatric Medicine; Referring Provider Family Medicine Geriatric Medicine; Visit Provider Family Medicine Geriatric Medicine
DX: R10.9 Unspecified abdominal pain (principal)
CPT/HCPCS: 36415; 74177; 80053; 85025; 87086; 87088; Q9967; A4216

== ENCOUNTER → 2020-10-22 10:57 | Outpatient (CLI) | payer MEDICARE, SELFPAY ==
[2020-10-14 15:24] VITALS: BMI 37.3
[2020-10-22 11:01] LABS: Red Blood Cells-Urine 0 SEEN /hpf (0-5)
[2020-10-22 12:57] LABS: Color, Urine Yellow (Yellow); Glucose, Dipstick Normal (Normal); Ketone-Dipstick 5 mg/dl (Negative); Leukocyte Esterase-Dipstick 100 /ul (Negative); Nitrite-Dipstick Negative (Negative); Occult Blood-Urine 10 /ul (Negative); Protein-Dipstick 15 mg/dl (Negative); Urine Bilirubin Dipstick Negative (Negative); Urine Clarity Clear (Clear); Urine Urobilinogen Normal (Normal)
[2020-10-22 13:08] LABS: Bacteria 1+ /hpf (None Seen); Mucous, Urine 2+ /hpf (<or=2+); Squamous Epithelial Cells - UA 5-10 SEEN /hpf (5-10); White Blood Cells 0-5 SEEN /hpf (0-5)
== END ==
PROVIDERS: PCP Family Medicine Geriatric Medicine; Referring Provider Family Medicine Geriatric Medicine; Visit Provider Family Medicine Geriatric Medicine
DX: N39.0 Urinary tract infection, site not specified (principal)
CPT/HCPCS: 81001; 87086

== ENCOUNTER 2020-11-16 23:06 | Inpatient (IN) | payer MEDICARE, SELFPAY ==
[2020-10-14 15:24] VITALS: BMI 37.3
--- NOTE | 2020-11-16 22:40 | HP.PCM.HOS_ITS ---
HPI - General General Date of Service: 11/16/20 Chief Complaint: Chest pain, STEMI transfer from OSH ED HPI Narrative The patient is a 75 y/o F w/ PMHx: Fibromyalgia, RA, GERD, RLE Chronic Radiculopathy/neuropathy, BL LE Chronic Venous Insufficiency, OA, HTN who presents to the [facility] direct catheterization lab with onset of chest pain per report, had witnessed cardiac arrest noted to have become suddenly unresponsive with immediate initiation of CPR by family, specifically daughter who is an SAND WORKER with EMS call with noted VF on monitor with shock delivered x 5 with ROSC following noted to be alert following with ongoing chest pain, rated 9/10 in severity with outside EKG with anterior lateral ST elevations. Patient transfer set up immediately upon STEMI call with call to [facility] ED and also Dr. Topete, director of cloud services on-call for STEMI. Patient transitioned from outside hospital ED directly to the cardiac catheterization lab. At outside facility patient received aspirin, heparin bolus, amnio bolus and drip. Upon arrival patient notes ongoing midsternal chest discomfort described as a stabbing, rated on route 8 out of 10 however patient describes this is worse than it was initially at onset with nausea as well as dyspnea. She denies any emesis or diaphoresis. She notes this happened prior to her ED presentation and that she had onset of chest discomfort prior to her cardiac arrest but cannot recall exactly what she had been doing. She denies any recent events of chest discomfort or exertional dyspnea. Initial outside facility high-sensitivity troponin 31.5. [facility] Medical History (Updated 11/16/20 @ 22:[address] Raissa Massey MD) Arthritis Back pain Bone fracture Breast lump in female Cataracts, bilateral Chronic venous insufficiency of lower extremity Contusion of right lower leg, sequela Fibromyalgia Generalized osteoarthritis GERD (gastroesophageal reflux disease) Hemorrhoids History of back problems Incontinence Left breast lump Neuropathy of right lower extremity Obesity Rheumatoid arthritis Shoulder pain UTI (urinary tract infection) Vitamin deficiency Home Medications valsartan 160 mg PO DAILY 02/07/20 [History Last Taken Unknown] cholecalciferol (vitamin D3) 1,000 unit PO DAILY 04/29/20 [History Last Taken Unknown] acetaminophen 1,000 mg PO Q8 #100 tab 05/13/20 [Rx Last Taken Unknown] aspirin 81 mg PO BIDCM #60 tab 05/13/20 [Rx Last Taken Unknown] famotidine 20 mg PO DAILY #30 tab 05/13/20 [Rx Last Taken Unknown] meloxicam 7.5 mg PO BID #60 tab 05/13/20 [Rx Last Taken Unknown] ondansetron HCl 8 mg PO Q8H PRN PRN #21 tab 05/13/20 [Rx Last Taken Unknown] sennosides-docusate sodium 2 tab PO BID #14 tab 05/13/20 [Rx Last Taken Unknown] Allergy/AdvReac Type Severity Reaction Status Date / Time bee pollen Allergy Anaphylaxis Verified 09/09/20 13:38 latex Allergy Swelling Verified 09/09/20 13:38 morphine Allergy Other Verified 09/09/20 13:38 Penicillins Allergy Hives Verified 09/09/20 13:38 hydrocodone bitartrate AdvReac Abd Verified 09/09/20 13:38 [From Vicodin] cramps/diarrhea Family History Father Diabetes Heart disease Hypertension CVA (cerebral vascular accident) Parkinson disease Mother Breast cancer Hypertension Grandmother Cancer pancreatic cancer Ovarian cancer Son Anesthesia complication Brother Asthma Arthritis Diabetes Respiratory disease Grandfather Lung cancer CVA (cerebral vascular accident) Surgical History Hematoma history bilateral breast biopsies History of bilateral knee replacement History of cataract surgery History of hysterectomy History of laparoscopic cholecystectomy History of left breast biopsy (~11/2017) History of repair of right rotator cuff History of tonsillectomy and adenoidectomy Hx of appendectomy Social History Smoking Status: Never smoker alcohol intake: never substance use type: does not use additional social history: DOES USE ASPIRIN DOES NOT USE IBUPROFEN ROS ROS Narrative Admission Review of Systems: CONSTITUTIONAL: No weight loss, fever, chills, + weakness or fatigue. HEENT: Eyes: No visual loss, blurred vision, double vision or yellow sclerae. Ears, Nose, Throat: No hearing loss, sneezing, congestion, runny nose or sore throat. SKIN: No rash or itching, lesions, wounds. CARDIOVASCULAR: + chest pain, chest pressure or chest discomfort, cardiac arrest, VF, palpitations, edema, No orthopnea, syncopal events. RESPIRATORY: + shortness of breath, No cough or sputum, wheezing, hemoptysis. GASTROINTESTINAL: + Nausea, No anorexia, vomiting or diarrhea, abdominal pain, melena, BRBPR. GENITOURINARY: No dysuria, frequency, urgency or retention. NEUROLOGICAL: No headache, dizziness, syncope, paralysis, ataxia, numbness or tingling in the extremities, focal weakness, change in bowel or bladder control, seizure. MUSCULOSKELETAL: + muscle, back pain, joint pain or stiffness. HEMATOLOGIC: No anemia, bleeding or bruising. LYMPHATICS: No enlarged nodes. No history of splenectomy. PSYCHIATRIC: No history of depression or anxiety. ENDOCRINOLOGIC: No reports of sweating, cold or heat intolerance. No polyuria or polydipsia. ALLERGIES: No history of asthma, hives, eczema or rhinitis. Vital Signs Vital Signs Vital Signs: Weight Body Mass Index (BMI) 37.3 Physical Exam Narrative On route EMS vital signs included heart rate 98, respiratory rate 24, 91% on 4 L nasal cannula noted to be 89% on room air prior to supplementation, BP 110/74. Physical Examination: General: Awake, alert, oriented to self, place, year but became frazzled about president as well as month, remains cooperative, laying on the cardiac catheterization table, uncomfortable appearing, ongoing chest pain, currently rating it 8-9 out of 10. Skin: Normal color, normal turgor, no icterus, no cyanosis. HEENT: AT/NC, EOMI, PERRLA, mildly dry MM, no carotid bruits or JVD noted. Lungs: Clear to auscultation anteriorly, mildly diminished laterally at bases, increased respiratory rate, no rales, ronchi or wheezing. Heart: Mildly tachycardic with regular rhythm; no gallop, rub audible. Abdomen: Soft, obese, NTTP, ND, distant normal BS, no obvious HSM however habitus makes examination difficult. Extremities: No cyanosis, no clubbing, mild bilateral ankle edema, nonpitting, peripheral pulses intact. Neurological: Patient awake, alert, oriented as noted, cognitive function suspect mildly decreased from baseline given severity of discomfort as noted not answering orientation questions fully appropriately; pupils equally reactive to light and accommodation, cranial nerves II-XII grossly normal, moving all 4 extremities, no focal deficits, strength severely global decrease secondary to acute presentation. Psychiatric: Affect appears uncomfortable, in pain, no acute evidence of depressive or anxiety feelings. Assessment & Plan Assessment/Plan (1) STEMI (ST elevation myocardial infarction): QUALIFIERS: Involved coronary artery: unspecified coronary artery Qualified Code(s): I21.3 - ST elevation (STEMI) myocardial infarction of unspecified site PLAN: The patient is a 75 y/o F w/ PMHx: Fibromyalgia, RA, GERD, RLE Chronic Radiculopathy/neuropathy, BL LE Chronic Venous Insufficiency, OA, HTN who presents to the [facility] direct catheterization lab with onset of chest pain per report, had witnessed cardiac arrest with EMS call with noted VF on monitor with shock delivered x 5 with ROSC following noted to be alert following with ongoing chest pain, rated 9/10 in severity. 1. Chest Pain w/ Acute Anteriolateral STEMI w/ Cardiac Arrest with VF with ROSC: EKG at OSH ED w/ anterior lateral ST elevations with immediate STEMI call with discussions with [facility] ED and Dr. Topete, cardiology on-call with transition from outside [place] ED to cardiac catheterization lab directly. Following intervention we will plan admission to the ICU if appropriate, maintain on a monitored bed, continue serial cardiac enzymes and EKGs, obtain magnesium level, administered heparin bolus prior to transition, will continue amiodarone drip with bolus administered at OSH. Continue medical management w/ asa, currently on ARB, will add metoprolol XL 25 mg daily and atorvastatin 40 mg q HS per discussion with Cardiology. Will initiate Brillinta BID dosing but defer to cardiology if alternate regimen preference. Given patient alertness plan deferral of post ROSC cooling. Will obtain AM FLP. ASA, NG. Given patient notable side effects with morphine, likely dilaudid will trial fentanyl PRN given severity of pain. 2. Hypertension: Continue home regimen including valsartan with hold parameters, will add metoprolol XL 25 mg pending BP trending, PRN hydralazine. 3. Rheumatoid arthritis: Given presentation will temporarily hold patient home meloxicam. 4. Bilateral lower extremity chronic venous insufficiency: We will place SCDs and if necessary may consider snug Eugenio wraps and elevation. 5. GERD: We will continue famotidine. 6. DVT prophylaxis: SCDs, heparin bolus received in outside facility, plan ini tiation of Lovenox in a.m. if labs appropriate. Charges/Coding Visit Charges Inpatient E&M: 47756 Init Hosp L3
--- NOTE | 2020-11-16 23:52 | CON.PCM.CA_ITS ---
Assessment & Plan Assessment/Plan (1) Cardiac arrest: PLAN: Due to ventricular fibrillation caused by patient's ST elevation SD. Currently patient is hemodynamically and electrically stable. We are starting her on a beta-jannet. She also had PCI to the LAD. We will watch her in the ICU. (2) STEMI (ST elevation myocardial infarction): QUALIFIERS: Involved coronary artery: unspecified coronary artery Qualified Code(s): I21.3 - ST elevation (STEMI) myocardial infarction of unspecified site PLAN: Patient had 99% stenosis in the LAD and 90% in the diagonal branch of the LAD. She underwent drug-eluting stent placement to the LAD and PTCA alone of the diagonal branch. We will keep her on aspirin, Brilinta, beta- jannet, ARB, statin. We will also get a 2D echo to evaluate her LV function. HPI Consult Data Date of Consult: 11/16/20 HPI Narrative HPI Narrative: JIE HENRIQUEZ, is a 75 F who presents to [facility] with chest pain. Patient called EMS for chest pain. When the EMS arrived patient went into V. fib cardiac arrest. She was shocked 5 times and when she arrived at the emergency room she had return to spontaneous circulation. She continued to have chest pain. An EKG was done which revealed anterior and lateral ST elevation SD. Patient was transferred to [facility] and underwent coronary angiography which revealed 99% stenosis in the LAD and 90% stenosis in the diagonal 1 (bifurcation lesion). She underwent drug-eluting stent placement to the LAD and PTCA alone to the diagonal 1 branch. At the end of the procedure she continues to have chest pain which appears to be musculoskeletal from the CPR. She is hemodynamically stable at this time. Review of systems: All systems reviewed. All else is negative except that in HPI [facility] Medical History (Updated 11/16/20 @ 23:[address] Gianfranco Topete MD) Arthritis Back pain Bone fracture Breast lump in female Cataracts, bilateral Chronic venous insufficiency of lower extremity Contusion of right lower leg, sequela Fibromyalgia Generalized osteoarthritis GERD (gastroesophageal reflux disease) Hemorrhoids History of back problems Incontinence Left breast lump Neuropathy of right lower extremity Obesity Rheumatoid arthritis Shoulder pain UTI (urinary tract infection) Vitamin deficiency Home Medications valsartan 160 mg PO DAILY 02/07/20 [History Last Taken Unknown] cholecalciferol (vitamin D3) 1,000 unit PO DAILY 04/29/20 [History Last Taken Unknown] acetaminophen 1,000 mg PO Q8 #100 tab 05/13/20 [Rx Last Taken Unknown] aspirin 81 mg PO BIDCM #60 tab 05/13/20 [Rx Last Taken Unknown] famotidine 20 mg PO DAILY #30 tab 05/13/20 [Rx Last Taken Unknown] meloxicam 7.5 mg PO BID #60 tab 05/13/20 [Rx Last Taken Unknown] ondansetron HCl 8 mg PO Q8H PRN PRN #21 tab 05/13/20 [Rx Last Taken Unknown] sennosides-docusate sodium 2 tab PO BID #14 tab 05/13/20 [Rx Last Taken Unknown] Allergy/AdvReac Type Severity Reaction Status Date / Time bee pollen Allergy Anaphylaxis Verified 09/09/20 13:38 latex Allergy Swelling Verified 09/09/20 13:38 morphine Allergy Other Verified 09/09/20 13:38 Penicillins Allergy Hives Verified 09/09/20 13:38 hydrocodone bitartrate AdvReac Abd Verified 09/09/20 13:38 [From Vicodin] cramps/diarrhea Family History Father Diabetes Heart disease Hypertension CVA (cerebral vascular accident) Parkinson disease Mother Breast cancer Hypertension Grandmother Cancer pancreatic cancer Ovarian cancer Son Anesthesia complication Brother Asthma Arthritis Diabetes Respiratory disease Grandfather Lung cancer CVA (cerebral vascular accident) Surgical History Hematoma history bilateral breast biopsies History of bilateral knee replacement History of cataract surgery History of hysterectomy History of laparoscopic cholecystectomy History of left breast biopsy (~11/2017) History of repair of right rotator cuff History of tonsillectomy and adenoidectomy Hx of appendectomy Social History Smoking Status: Never smoker alcohol intake: never substance use type: does not use additional social history: DOES USE ASPIRIN DOES NOT USE IBUPROFEN Physical Exam Const alert Orientation / Consciousness: awake HEENT normocephalic Eyes no scleral icterus Chest inspection of chest normal Resp normal respiratory effort Cardio regular rate Skin no rashes or lesions noted Psych mental status grossly normal Charges/Coding Visit Charges Inpatient E&M: 34738 Init Hosp L3 Objective Data Vital Signs: Body Mass Index (BMI) 37.3 Cardiology Labs/Tests Rhythm: EKG: ECHO: Stress Test: Cardiac Cath: PCI: CT Surgery: Holter monitor: EPS: PPM: CXR: Chest CT Scan:
[2020-11-17] VITALS (28 sets, daily range): BP systolic 97–121; BP diastolic 63–78; PULSE 72–87; RESP 11–22; TEMP 35.6–37; O2SAT 86–99; BMI 36.8
[2020-11-17 00:04] LABS: Absolute Neutrophil Count 13.8 X10^3/uL (2.0-7.7); Basophil# 0.05 X10^3/uL; Basophil% 0.3 % (0-1); Eosinophil# 0.05 X10^3/uL; Eosinophils% 0.3 % (0-5); Hematocrit 39.1 % (37-47); Lymphocyte % 6.8 % (19-41); Mean Corp Hgb Conc 30.7 g/dL (32-36); Mean Corpuscular Hgb 26.1 pg (27.0-32.0); Mean Corpuscular Volume 85.2 fL (81-99); Mean Platelet Vol. 9.5 fl (6.2-12.0); Monocyte# 0.76 X10^3/uL; Monocyte% 4.7 % (0-10); NRBC Flagged by Analyzer 0 % (0-5); Neutrophil # 13.77 X10^3/uL (2.7-7.7); Neutrophil % 85.6 % (47-70); Platelet Count 322 K/mm3 (150-450); RBC Distribution Width SD 43.5 fl (35.1-43.9); Red Blood Count 4.59 M/mm3 (4.2-5.4); White Blood Count 16.1 K/mm3 (4.4-11.0)
--- NOTE | 2020-11-17 00:07 | RAD_ITS ---
STUDY: X-RAY CHEST REASON FOR EXAM: Female, 75 years old patient with chest pain s/p CPR. Suspected rib fractures TECHNIQUE: Single AP portable view of the chest. COMPARISON: CT of the chest dated 02/07/2020. FINDINGS: Cardiac monitoring leads are present. The lungs are clear and expanded. There is left basilar subsegmental atelectasis and/or Kathy B lines There is no demonstrated pleural abnormality. There is mild cardiac enlargement. Normal mediastinum and sung. Normal visualized pulmonary arteries. There is atherosclerotic calcification of the aortic arch with tortuosity. There is demineralization of the osseous structures. There are diffuse degenerative changes of the visualized thoracic spine. The patient has had previous right-sided shoulder surgery. There is no demonstrated abnormality of the visualized soft tissue structures of the upper abdomen. RAD/Chest 1 View (Portable) IMPRESSION: 1. Mild cardiomegaly. 2. No definite rib fractures are visualized. 3. If there is still clinical concern for acute fracture, follow-up bone scan maybe helpful in evaluating a healing radiographically occult fracture. Electronically Signed: Maude Moseley MD at 5:59 EDT , Service support ,
--- NOTE | 2020-11-17 00:08 | ECHOCS_ITS ---
Reason For Study: STEMI Procedure This was a 2D Doppler, Color Flow transthoracic echocardiogram. The study was technically difficult. CHEST PAIN D/T broken ribs from CPR (11/16/20). Contrast injection was performed. Left Ventricle The estimated ejection fraction is 35 %. There is evidence of diastolic dysfunction. Hypokinesis of the apex, anterior wall, distal septum. Right Ventricle Normal RV size. Normal systolic function. Atria Normal left atrium. Normal right atrium. No doppler evidence for ASD. Mitral Valve There is no mitral valve stenosis. There is no mitral regurgitation noted. Tricuspid Valve There is no tricuspid stenosis. Trivial tricuspid valve insufficiency. Pulmonary artery systolic pressure is 40 mmHg. Aortic Valve Trisinus/trileaflet aortic valve. Aortic sclerosis, no stenosis. No aortic valve insufficiency. Pulmonic Valve There is no pulmonic valvular stenosis. Trivial pulmonic valve insufficiency. Great Vessels Normal aortic root. Pericardium/Pleural No pericardial effusion. Medication Diluted definity 3.0ml given slow IV push to enhance endocardial definition. MMode/2D Measurements & Calculations LVIDd: 4.0 cm IVSd: 0.92 cm Ao root diam: 3.7 cm LVIDs: 2.6 cm LVPWd: 0.94 cm RVDd: 4.2 cm FS: 35.9 % LAV(MOD-bp): 46.1 ml LA A4 area: 17.0 cm2 LA dimension(2D): 4.3 cm LAV(MOD-bp) Indexed: 25.0 ml/m2 LAV(MOD-sp2): 45.0 ml LAV(MOD-sp4): 43.4 ml Time Measurements MV dec time: 0.22 sec Doppler Measurements & Calculations MV E max jayro: 64.7 cm/sec Lat Peak E' Jayro: 5.8 cm/sec Med Peak E' Jayro: 5.9 cm/sec MV A max jayro: 66.5 cm/sec E/E' lat: 11.1 E/E' med: 10.9 MV E/A: 0.97 Ao V2 max: 111.2 cm/sec LV V1 max: 64.3 cm/sec PA V2 max: 73.2 cm/sec Ao max P.9 mmHg LV V1 max P.7 mmHg TR max jayro: 286.9 cm/sec TR max P.0 mmHg ECHO/Echo Complete W/ Contrast Interpretation Summary The estimated ejection fraction is 35 %. There is evidence of diastolic dysfunction. Hypokinesis of the apex, anterior wall, distal septum Ordering Physician: Gianfranco Topete Referring Physician: Alexi Morin Chi Performed By: Claudia Dan RDCS, RVT
--- NOTE | 2020-11-17 00:15 | EKG12_ITS ---
Test Reason : AM EKG Blood Pressure : / mmHG Vent. Rate : 079 BPM Atrial Rate : 079 BPM P-R Int : 170 ms QRS Dur : 074 ms QT Int : 488 ms P-R-T Axes : 053 -01 005 degrees QTc Int : 559 ms Normal sinus rhythm Inferior infarct , age undetermined Anterior infarct , age undetermined Prolonged QT Abnormal ECG When compared with ECG of 17-NOV-2020 00:32, MANUAL COMPARISON REQUIRED, DATA IS UNCONFIRMED Confirmed by ADELIA BENNETT, NAILA ([id number]), assistant production editor CLAUDIA DIOP ([id number]) on 11/22/2020 10:40:38 AM Referred By: Gianfranco Topete Confirmed By:GARFIELD TOPETE MD
[2020-11-17 00:17] LABS: ALB/GLOB Ratio 0.6 RATIO (0.9-2.4); AST(SGOT) 299 U/L (15-37); Alanine Aminotransfer ALT/SGPT 177 U/L (13-56); Albumin, Serum 2.7 g/dL (3.2-5.0); Alkaline Phosphatase 120 U/L (45-117); Anion Gap 7 (5-15); BUN 24 mg/dL (7-18); BUN/Creat Ratio 26.5 RATIO (10-20); Calcium,Total 8.2 mg/dL (8.5-10.1); Chloride 106 mmol/L (98-107); EST Glomerular Filtration Rate 65 mL/min (>60); Est Glom Filt Rate - Afr Amer 78 mL/min (>60); Globulin 4.3 g/dL (2.2-4.2); Glucose 146 mg/dL (74-106); Magnesium 2.4 mg/dL (1.6-2.6); Potassium 4.5 mmol/L (3.5-5.1); Sodium Level 140 mmol/L (136-145)
[2020-11-17 00:24] LABS: International Normalized Ratio 1.3; Prothrombin Time (Protime)PT. 15.1 SECONDS (11.7-14.9)
[2020-11-17 00:30] LABS: Partial Thromboplast Time 149.5 Seconds (24.1-36.2)
--- NOTE | 2020-11-17 00:47 | NURSING ---
Patient is running Amiodarone at 1mg/min, which was started and continued from [facility]. This is to continue running until finished and then her second dose will be hung here. Patient is also running Integrillin 2 mcg/kg/min, which was running from the cathead operator and was not scanned at the time it was started.
[2020-11-17 00:54] LABS: Troponin-I HS 2725.8 pg/mL (3.0-53.7)
[2020-11-17] MEDS: Atorvastatin Calcium 40 MG Tablet PO ×2 (01:07→21:18)
[2020-11-17] MEDS: Famotidine 20 MG Tablet PO ×3 (01:08→21:18)
[2020-11-17] MEDS: 0.9% Normal Saline 1,000 ML 75 ML IV (01:08)
[2020-11-17] MEDS: Amiodarone 360 MG in Dextrose 5% Viaflo Bag 192.8 ML 16.7 MG CONT INF (03:09)
[2020-11-17 04:43] LABS: Absolute Lymphocyte Count 0.56 X10^3/uL (0.83-4.51); Absolute Neutrophil Count 12.7 X10^3/uL (2.0-7.7); Basophil# 0.02 X10^3/uL; Basophil% 0.1 % (0-1); Eosinophil# 0.01 X10^3/uL; Eosinophils% 0.1 % (0-5); Hematocrit 38.4 % (37-47); Hemoglobin 12.1 g/dL (12.0-15.0); Lymphocyte # 0.56 X10^3/ul (0.83-4.51); Mean Corp Hgb Conc 31.5 g/dL (32-36); Mean Corpuscular Hgb 26.4 pg (27.0-32.0); Mean Corpuscular Volume 83.8 fL (81-99); Mean Platelet Vol. 9.2 fl (6.2-12.0); Monocyte# 0.51 X10^3/uL; Monocyte% 3.7 % (0-10); NRBC Flagged by Analyzer 0 % (0-5); Neutrophil # 12.69 X10^3/uL (2.7-7.7); Neutrophil % 91.2 % (47-70); POSITIVE DIFFERENTIAL YES; Platelet Count 304 K/mm3 (150-450); RBC Distribution Width SD 42.9 fl (35.1-43.9); Red Blood Count 4.58 M/mm3 (4.2-5.4); White Blood Count 13.9 K/mm3 (4.4-11.0)
[2020-11-17 04:46] LABS: Differential Indicated SCAN CRITERIA MET
[2020-11-17] MEDS: fentaNYL 100 MCG/2 ML Ampul 25 MCG IV ×2 (04:50→07:43)
[2020-11-17] MEDS: 0.9% Saline Lock 10 ML Syringe IV ×2 (04:51→22:47)
[2020-11-17 05:06] LABS: ALB/GLOB Ratio 0.7 RATIO (0.9-2.4); AST(SGOT) 249 U/L (15-37); Alanine Aminotransfer ALT/SGPT 170 U/L (13-56); Albumin, Serum 2.8 g/dL (3.2-5.0); Alkaline Phosphatase 111 U/L (45-117); Anion Gap 6 (5-15); BUN 25 mg/dL (7-18); BUN/Creat Ratio 25.2 RATIO (10-20); Calcium,Total 8.1 mg/dL (8.5-10.1); Chloride 109 mmol/L (98-107); Cholesterol 152 mg/dL (200); Creatinine, Serum 0.99 mg/dL (0.55-1.02); EST Glomerular Filtration Rate 58 mL/min (>60); Est Glom Filt Rate - Afr Amer 70 mL/min (>60); Estimated Creatinine Clearance 38.19 ml/min; Globulin 4.1 g/dL (2.2-4.2); Glucose 139 mg/dL (74-106); High Density Lipoprotein 36 mg/dL; Potassium 3.9 mmol/L (3.5-5.1); Protein, Total 6.9 g/dL (6.4-8.2); Sodium Level 141 mmol/L (136-145); Triglycerides 95 mg/dL; Very Low Density Lipoprotein 19 mg/dL (5-40)
--- NOTE | 2020-11-17 05:55 | EKG12_ITS ---
Test Reason : AM EKG Blood Pressure : / mmHG Vent. Rate : 070 BPM Atrial Rate : 070 BPM P-R Int : 170 ms QRS Dur : 078 ms QT Int : 492 ms P-R-T Axes : 053 008 030 degrees QTc Int : 531 ms Sinus rhythm with Premature atrial complexes T wave abnormality, consider anterolateral ischemia Prolonged QT Abnormal ECG When compared with ECG of 17-NOV-2020 05:46, MANUAL COMPARISON REQUIRED, DATA IS UNCONFIRMED Confirmed by ADELIA BENNETT, NAILA ([id number]), assignment editor CLAUDIA DIOP ([id number]) on 11/22/2020 10:42:06 AM Referred By: Gianfranco Topete Confirmed By:GARFIELD TOPETE MD
[2020-11-17] MEDS: Enoxaparin 40 MG/0.4 ML Syringe SC (05:59)
[2020-11-17] MEDS: Acetaminophen 325 MG Tablet 650 MG PO ×2 (07:43→14:13)
--- NOTE | 2020-11-17 08:45 | CL.I_ITS ---
Patient Name: JIE HENRIQUEZ Study Date: 11/16/2020 Performing: Dorothy Topete MD Ht: 60 inches 152 cm : 1945 Wt: 154.5 lbs 70 kg Age: 75 Gender: female BSA: 1.67 PROCEDURE(S) PERFORMED [id number], OTIS AND/OR PTCA, ARTERY OR GRAFT, SINGLE VESSEL [id number], EACH ADD'L CORONARY ART, SAME MAJOR CLINICAL PROFILE AND CO-MORBIDITIES Indications: ACS <= 24 hrs Heart Failure: None Stress/Imaging Stress/Image Study Performed: No CAD Presentations: STEMI. Symptom onset Date/Time: 11/16/20 Time Not Available CONCLUSIONS CAD as described. No significant . Successful PCI of mLAD/D1 with OTIS to mLAD and PTCA to D1. RECOMMENDATIONS DESCRIPTION OF PROCEDURE The patient arrived to the procedure lab. The risks and benefits of the procedure as well as a full d escription of our services here and lack of surgical backup were fully explained to the patient and/o r their significant other prior to the catheterization. The Timeout was completed, verifying the faye ect patient and procedure. The patient's procedural site was prepped and draped in the usual fashion. Local anesthetic was given subcutaneously to right radial region with Lidocaine 2%. Using a modified Seldinger technique, arterial access was obtained via the right radial artery, a 6Fr sheath was inse rted.. Right Coronary Artery selective angiography was then performed in multiple views using a 5 Fr . JR 4 catheter. Left Coronary Artery selective angiography was performed in multiple views using a 6 Fr. XB 3The images were reviewed and options discussed. A decision was then made to proceed with an Intervention, IVUS or other adjunct procedure. XB 3 Guide catheter was inserted and engaged into the LCA. BMW Stroud Guide wire was advanced to the LAD. Emerge 2.5 x 12 Balloon catheter was inserted. Balloon catheter was advanced across lesio n in the LAD, mid. PTCA balloon inflated at 6 atms for 7 secs. Angiogram performed post balloon dilat ation. Runthrough Guide wire was advanced to the 1st Diagonal as a kaitlynn wire. Emerge 1.5 x 15 Balloo n catheter was inserted. Balloon catheter was advanced across lesion in the first diagonal, ostial. P TCA balloon inflated at 8 atms for 10 secs. Angiogram performed post balloon dilatation. PTCA balloon inflated at 6 atms for 7 secs. PTCA balloon inflated at 6 atms for 6 secs. Angiogram performed post balloon dilatation. Orsiro 3.0 x 22 Drug Eluting stent was inserted. Drug Eluting stent was advanced across the lesion in the LAD, mid. Angiogram performed pre stent deployment. Angiogram performed post stent deployment. The arterial sheath was pulled and a TR Band was applied for hemostasis CORONARY ANGIOGRAPHY DOMINANCE: Right Dominant LEFT HEART ASSESSMENT LEFT MAIN: No significant disease noted LEFT ANTERIOR DESCENDING ARTERY: MID LAD: 99 % Stenosis DIAGONAL 1: Ostial - 90 % Stenosis CIRCUMFLEX ARTERY: Mild luminal irregularities RIGHT CORONARY ARTERY: OSTIAL RCA: 25 % Stenosis MID RCA: 40 % Stenosis VALVE FINDINGS: No Aortic Valve Stenosis INTERVENTION INFORMATION LESION SITE: LAD (Mid) Lesion Complexity: High/C, chronic total occlusion: No, lesion at bifurcation: Yes, thrombus present: No, lesion length: 20 mm, culprit lesion: Yes, Previously treated lesion: No Pre Stenosis: 99 % Pre intervention MAYRA flow: 2 PROCEDURE: Drug Eluting Stent with pre dilatation. Post Stenosis: 0 % Post intervention MAYRA flow: 3 Lesion Devices: Cardinal 6 Fr XB3.0 100cm Guide Catheter Ascencio .014 BMW Stroud Straight 190cm Oziel Sci EMERGE MR 2.50x12 BALLOON Terumo .014 Runthrough Extra Floppy 180cm straight Biotronik Orsiro MR OTIS 3.0x22 LESION SITE: 1st Diagonal (Ostial) Lesion Complexity: High/C, chronic total occlusion: No, lesion at bifurcation: Yes, thrombus present: No, lesion length: 10 mm, culprit lesion: Yes Pre Stenosis: 90 % Pre intervention MAYRA flow: 2 PROCEDURE: Balloon Angioplasty Post Stenosis: 80 % Post intervention MAYRA flow: 3 Lesion Devices: Cardinal 6 Fr XB3.0 100cm Guide Catheter Ascencio .014 BMW Stroud Straight 190cm Terumo .014 Runthrough Extra Floppy 180cm straight Oziel Sci EMERGE MR 1.50x15 BALLOON COMPLICATIONS No Complications PROCEDURE MEDICATIONS Fentanyl 25 mcg IV Oxygen: 2 L/min via nasal cannula Brilinta 180 mg PO @ 11/17/2020 00:15:57 Heparin given IA 11/16/2020 23:11:33 Verapamil 2.5mg, Ntg 100mcgs, 3000 units of Heparin given IA 11/16/2020 23:11:33 IV Bolus: .9 NaCl 700 ml total 11/16/2020 23:25:17 SUMMARY OF HEMODYNAMIC DATA Time AIR REST ECG 23:04:44 AO 101/62 (80) SA 23:13:13 LV 107/-4, 17 23:16:23 Signed By Dorothy Topete MD On 11/17/2020 8:44:33 AM Dorothy Topete MD
[2020-11-17] MEDS: TICAGRELOR 90 MG TABLET PO ×2 (10:22→21:18)
[2020-11-17] MEDS: Aspirin 81 MG TAB.CHEW PO (10:22)
[2020-11-17] MEDS: Losartan Potassium 50 MG Tablet PO (10:23)
[2020-11-17] MEDS: oxyCODONE 5 MG Tablet PO (10:26)
[2020-11-17] MEDS: Metoprolol(XL)Succ 25 MG Tablet PO (12:24)
--- NOTE | 2020-11-17 12:30 | CASEMGMT ---
RN CM Face to Face with patient for initial transition planning/care coordination assessment. RN CM introduced self and role at [facility]. Patient lying in bed, alert and oriented, DIL at bedside. Patient willing to participate in assessment and is able to answer all questions appropriately. Care providers, pharmacy, and demographics verified. Patient wishes to discharge home with possible HHC or would consider going to SNF if needed. Will monitor progress with therapy. Patient states she has no further needs or concerns at this time. CM to follow for discharge planning needs that may arise. PCP: Mikel Specialists: Ismael Palomino Preferred Pharmacy: [facility] Insurance: [facility] Prescription Benefit: yes Living Will/HPOA: yes, Gallo Moon LNOK: , sons, DIL Living Arrangements: Patient lives with in a single story home with 2 steps to enter the home. Patient states she is independent at home. Transportation: self/family DME/HHC: Patient states she has cane, walker, and grab bars at home. Patient has previously been to TCU and had [facility] HHC. Disposition Plan: TBD, HHC vs SNF, will monitor progress with therapy. Mariposa STRICKLAND, RN, CM
--- NOTE | 2020-11-17 13:15 | CRPHASE1_ITS ---
Patient Communication PHII Cardiac Rehab Discussed with Patient:: Yes Guide to Cardiac Rehab Given to Patient:: Yes Cardiac Rehab Facility Choice List Given to Patient:: Yes Choice Program [facility] PHII:: Communication Given to CR Fulfillment Associate:: Gianfranco Topete Refer Phase II Cardiac Rehab:: Yes Sessions:: 36 sessions - 3 days/wk, 12 weeks Cardiac Rehabilitation Info Cardiac Rehabilitation Program Information: Cardiac Rehabilitation is important for patients like you who are recovering from a heart problem. Cardiac rehabilitation programs are recognized as integral to the continued care of the patient with coronary heart disease. The cardiac rehabilitation program is designed to optimize a patient's physical, psychological, and social functioning. Health animal care supervisor work in cardiac rehabilitation programs and assist you with getting the treatments you need to get stronger and healthier - like exercise, healthy eating habits, and med ications. Cardiac rehabilitation has been show to help people with heart problems live longer and have better life enjoyment than people who do not go to cardiac rehabilitation. Please contact the Cardiac Rehabilitation Program at [facility] at in two weeks if you have not heard from them.
--- NOTE | 2020-11-17 13:15 | CRPH1.INSTRU ---
General Education CAD and cardiac anatomy and function:: Patient communicates acknowledgment, Family communicates acknowledgment Explanation of diagnoses and procedures:: Patient communicates acknowledgment, Family communicates acknowledgment Sign/Symptoms of IA:: Patient communicates acknowledgment, Family communicates acknowledgment Antiplatelet therapy: Patient communicates acknowledgment, Family communicates acknowledgment Proper use of NTG-SL: Patient communicates acknowledgment, Family communicates acknowledgment Emergency procedures and activation of EMS: Patient communicates acknowledgment, Family communicates acknowledgment Compliance of all prescribed medications: Patient communicates acknowledgment, Family communicates acknowledgment Smoking Patient Nicotine/Smoking Risk Factors Are:: Never smoked Dyslipidemia Patient Dyslipidemia Risk Factors Are:: HDL Recommendations Include:: Lipid profile provided, Reviewed NCEP/ATP guidelines, Therapeutic Lifestyle Change dietary guidelines Dyslipidemia Response Code:: Patient communicates acknowledgment, Family communicates acknowledgment Overweight/Obesity Patient Overweight/Obesity Risk Factors Are:: Obesity - > or = 30 Recommendations Include:: Weight loss of 5-10%, Reduced calorie diet, Exercise 5-7 times/week Overweight/Obesity:: Patient communicates acknowledgment, Family communicates acknowledgment Hypertension Patient Hypertension Risk Factors Are:: No documented hx of HTN Recommendations Include:: Maintain BP <130/85, DASH dietary guidelines, Decrease/maintain normal body weight, Moderation of ETOH Hypertension:: Patient communicates acknowledgment, Family communicates acknowledgment Heart Disease Patient Heart Disease Risk Factors Are:: Family history of heart disease < 65 years old Recommendations Include:: Educated family members of their risk, Educated family members of importance of prevention of heart disease Heart Disease Response Code:: Patient communicates acknowledgment, Family communicates acknowledgment Sedentary Patient Sedentary Risk Factors Are:: Lack of regular exercise Recommendations Include:: Aerobic exercise 5-7 times/week for 20-30 minutes continuously, Benefits of regular exercise, Discussed home walking program, Monitored Outpatient Cardiac Rehab Sedentary Response Code:: Patient communicates acknowledgment, Family communicates acknowledgment
--- NOTE | 2020-11-17 13:53 | CASEMGMT ---
Pt's name placed on TCU list in the event pt may need rehab, as this is pt and family's first choice. SERENA Wall
[2020-11-17] MEDS: oxyCODONE 5 MG Tablet 10 MG PO (16:37)
--- NOTE | 2020-11-17 19:07 | PN.HOSP_ITS ---
Subjective Subjective Patient was seen and examined today initially on MedSurg 2, she appeared stable for transfer to PCU and I talked with cardiology about her care. Patient has complaints of precordial chest discomfort that is reproducible on palpation, I think this is probably due to the CPR which she had administered. Patient does not complain of any shortness of breath. Objective Data Objective Data Vital Signs: Vital Signs Temp Pulse Resp BP Pulse Ox 97.9 F 74 16 108/71 97 11/17/20 16:40 11/17/20 16:40 11/17/20 16:40 11/17/20 16:40 11/17/20 16:40 Oxygen Flow Rate (L/min) 4 Oxygen Delivery Method Room Air Weight: 92.1 kg Body Mass Index (BMI) 36.8 Intake & Output: Intake and Output for Last 24 Hours 11/15/20 11/16/20 11/17/20 23:59 23:59 23:59 Intake Total 1429.4 / 1429.4 Output Total 825 / 825 Balance 604.4 / 604.4 Medical Nutrition Assessment Dietitian: Nutrition Therapy Diagnosis Start: 11/17/20 09:45 Freq: Status: Active Protocol: Document 11/17/20 09:54 AG (Rec: 11/17/20 09:54 AG [id number]) Nutrition Malnutrition Evidence of Malnutrition Exists No Recommendation Dietitian Recommendations/Changes continue cardiac diet. Lab / Micro Data Result Diagrams: 11/17/20 04:30 11/17/20 04:30 Labs: Laboratory Results - last 24 hr 11/16/20 23:45: Troponin I High Sens 2725.8 H* 11/16/20 23:47: Sodium 140, Potassium 4.5, Chloride 106, Carbon Dioxide 27.0, Anion Gap 7, BUN 24 H, Creatinine 0.90, Est GFR (MDRD) Af Amer 78, Est GFR (MDRD) Non-Af 65, BUN/Creatinine Ratio 26.5 H, Glucose 146 H, Calcium 8.2 L, Magnesium 2.4, Total Bilirubin 0.40, AST 299 H, ALT 177 H, Alkaline Phosphatase 120 H, Total Protein 7.0, Albumin 2.7 L, Globulin 4.3 H, Albumin/Globulin Ratio 0.6 L 11/16/20 23:47: WBC 16.1 H, RBC 4.59, Hgb 12.0, Hct 39.1, MCV 85.2, MCH 26.1 L, MCHC 30.7 L, RDW Std Deviation 43.5, RDW Coeff of April 14.0, Plt Count 322, MPV 9.5, Immature Gran % (Auto) 2.300 H, Neut % (Auto) 85.6 H, Lymph % (Auto) 6.8 L, [place] % (Auto) 4.7, Eos % (Auto) 0.3, Baso % (Auto) 0.3, Absolute Neuts (auto) 13.8 H, Absolute Lymphs (auto) 1.10, Nucleated RBC % 0 11/16/20 23:47: PT 15.1 H, INR 1.3, APTT 149.5 H* 11/17/20 02:44: Troponin I High Sens 5697.2 H* 11/17/20 04:30: WBC 13.9 H, RBC 4.58, Hgb 12.1, Hct 38.4, MCV 83.8, MCH 26.4 L, MCHC 31.5 L, RDW Std Deviation 42.9, RDW Coeff of April 14.0, Plt Count 304, MPV 9.2, Immature Gran % (Auto) 0.900, Neut % (Auto) 91.2 H, Lymph % (Auto) 4.0 L, [place] % (Auto) 3.7, Eos % (Auto) 0.1, Baso % (Auto) 0.1, Absolute Neuts (auto) 12.7 H, Absolute Lymphs (auto) 0.56 L, Nucleated RBC % 0 11/17/20 04:30: Sodium 141, Potassium 3.9, Chloride 109 H, Carbon Dioxide 26.0, Anion Gap 6, BUN 25 H, Creatinine 0.99, Estim Creat Clear Calc 38.19, Est GFR (MDRD) Af Amer 70, Est GFR (MDRD) Non-Af 58 L, BUN/Creatinine Ratio 25.2 H, Glucose 139 H, Calcium 8.1 L, Total Bilirubin 0.40, AST 249 H, ALT 170 H, Alkaline Phosphatase 111, Troponin I High Sens 5405.0 H*, Total Protein 6.9, Albumin 2.8 L, Globulin 4.1, Albumin/Globulin Ratio 0.7 L, Triglycerides 95, C holesterol 152, LDL Cholesterol 97, VLDL Cholesterol 19, HDL Cholesterol 36 L Radiography Diagnostic Testing: Radiology Impression Chest X-Ray 11/17/20 00:07 IMPRESSION: 1. Mild cardiomegaly. 2. No definite rib fractures are visualized. 3. If there is still clinical concern for acute fracture, follow-up bone scan maybe helpful in evaluating a healing radiographically occult fracture. Electronically Signed: Maude Moseley MD at 5:59 EDT , Service support , Echocardiogram 11/17/20 00:08 Interpretation Summary The estimated ejection fraction is 35 %. There is evidence of diastolic dysfunction. Hypokinesis of the apex, anterior wall, distal septum Ordering Physician: Gianfranco Topete Referring Physician: Alexi Morin Chi Performed By: Claudia Dan, MARIBELL, RVT Physical Exam Const alert, oriented x3, no apparent distress and healthy appearing General Appearance: cooperative, well kempt and well developed Orientation / Consciousness: awake, oriented to person, oriented to place and oriented to time HEENT normocephalic and moist oral mucous membranes Eyes PERRL, EOMs intact bilaterally and conjunctivae normal Neck nuchal rigidity, supple, no JVD, thyroid normal and no carotid bruits General: trachea midline Resp normal respiratory effort, no retractions, no use of accessory muscles and clear to auscultation bilaterally Auscultation: Negative for rales, rhonchi or wheezes Cardio regular rate, regular rhythm, no murmurs, no rub and no gallops Cardio Narrative: Patient's chest wall is diffusely tender to palpation GI normal to inspection, nondistended, normoactive bowel sounds, soft to palpation, non-tender and non-distended Extremity no clubbing, cyanosis or edema Skin no rashes or lesions noted General Skin Exam: no breakdown Neuro oriented x3, CN's II-XII intact bilaterally, no focal motor deficits and no sensory deficits noted Sensorium / Orientation: awake and alert Speech: speech normal Psych thought process normal and affect normal Assessment & Plan Assessment/Plan (1) Cardiac arrest: PLAN: 1. Cardiac arrest secondary to ventricular fibrillation caused by acute STEMI-patient is stable at this time, cardiology has indicated she no longer needs IV amiodarone, this was stopped today. 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
[2020-11-17] MEDS: Ketorolac 15 MG/ML Vial IV (22:47)
[2020-11-18] VITALS (11 sets, daily range): BP systolic 101–135; BP diastolic 56–67; PULSE 66–76; RESP 18; TEMP 36.2–36.9; O2SAT 95–99
[2020-11-18] MEDS: Ketorolac 15 MG/ML Vial IV ×3 (05:23→21:31)
[2020-11-18] MEDS: Enoxaparin 40 MG/0.4 ML Syringe SC (05:23)
[2020-11-18] MEDS: 0.9% Saline Lock 10 ML Syringe IV ×3 (05:23→22:21)
[2020-11-18] MEDS: Aspirin 81 MG TAB.CHEW PO (08:00)
[2020-11-18] MEDS: oxyCODONE 5 MG Tablet 10 MG PO ×2 (08:00→18:14)
[2020-11-18] MEDS: Metoprolol(XL)Succ 25 MG Tablet PO (09:48)
[2020-11-18] MEDS: Famotidine 20 MG Tablet PO ×2 (09:48→21:25)
[2020-11-18] MEDS: Acetaminophen 325 MG Tablet 650 MG PO ×2 (09:48→18:14)
[2020-11-18] MEDS: TICAGRELOR 90 MG TABLET PO ×2 (09:48→21:25)
[2020-11-18] MEDS: Losartan Potassium 50 MG Tablet PO (09:48)
--- NOTE | 2020-11-18 10:00 | EKG12_ITS ---
Test Reason : POST CATH Blood Pressure : / mmHG Vent. Rate : 082 BPM Atrial Rate : 082 BPM P-R Int : 188 ms QRS Dur : 078 ms QT Int : 490 ms P-R-T Axes : 031 -10 006 degrees QTc Int : 572 ms Normal sinus rhythm Anterior infarct , age undetermined Prolonged QT Abnormal ECG When compared with ECG of 03-MAY-2020 13:46, QT has lengthened Confirmed by ADELIA BENNETT, NAILA ([id number]), copy editor CLAUDIA DIOP ([id number]) on 11/22/2020 10:41:12 AM Referred By: Gianfranco Topete Confirmed By:GARFIELD TOPETE MD
--- NOTE | 2020-11-18 11:51 | CASEMGMT ---
Addendum entered by Evi Baez 11/18/20 12:51: SW left a message for Tory asking her to please start the pre-cert. Evi GUERRERO Original Note: Therapy told SW that patient will need to go somewhere for rehab. Patient has already expressed interest in TCU. SW called Tory and let her know patient will need to come to TCU. Plan: d/c to [facility] TCU pending insurance approval. Evi GUERRERO
--- NOTE | 2020-11-18 16:29 | PCM.PN.HOSP ---
Subjective Subjective Patient was seen and examined today, I briefly talked with cardiology about her care. Also talked with secondary social studies teacher who state that the patient will need inpatient rehab services due to debility, a request for insurance company approval is been made for the patient. Patient is currently still on nasal cannula oxygen Objective Data Objective Data Vital Signs: Vital Signs Temp Pulse Resp BP Pulse Ox 97.1 F L 70 18 129/66 H 98 11/18/20 15:33 11/18/20 15:33 11/18/20 15:33 11/18/20 15:33 11/18/20 15:33 Oxygen Flow Rate (L/min) 2 Oxygen Delivery Method Nasal Cannula Weight: 90.8 kg Body Mass Index (BMI) 36.8 Intake & Output: Intake and Output for Last 24 Hours 11/16/20 11/17/20 11/18/20 23:59 23:59 23:59 Intake Total 1429.4 / 1549.4 360 / 360 Output Total 825 / 825 100 / 100 Balance 604.4 / 724.4 260 / 260 Medical Nutrition Assessment Dietitian: Nutrition Therapy Diagnosis Start: 11/17/20 09:45 Freq: Status: Active Protocol: Document 11/17/20 09:54 AG (Rec: 11/17/20 09:54 AG [id number]) Nutrition Malnutrition Evidence of Malnutrition Exists No Recommendation Dietitian Recommendations/Changes continue cardiac diet. Lab / Micro Data Result Diagrams: 11/17/20 04:30 11/17/20 04:30 Physical Exam Const alert, oriented x3, no apparent distress and healthy appearing General Appearance: cooperative, well kempt and well developed Orientation / Consciousness: awake, oriented to person, oriented to place and oriented to time HEENT normocephalic and moist oral mucous membranes Eyes PERRL, EOMs intact bilaterally and conjunctivae normal Neck nuchal rigidity, supple, no JVD, thyroid normal and no carotid bruits General: trachea midline Resp normal respiratory effort and clear to auscultation bilaterally Auscultation: Negative for rales, rhonchi or wheezes Cardio regular rate, regular rhythm, no murmurs, no rub and no gallops GI normal to inspection, nondistended, normoactive bowel sounds, soft to palpation, non-tender and non-distended Extremity no clubbing, cyanosis or edema Skin no rashes or lesions noted General Skin Exam: no breakdown Neuro oriented x3, CN's II-XII intact bilaterally, no focal motor deficits and no sensory deficits noted Sensorium / Orientation: awake and alert Speech: speech normal Psych thought process normal and affect normal Assessment & Plan Assessment/Plan (1) Atherosclerosis of coronary artery of [place] heart without angina pectoris: (2) Cardiac arrest: PLAN: 1. Cardiac arrest secondary to ventricular fibrillation caused by acute STEMI-patient is stable at this time, #2 occlusive coronary artery disease with LAD stenosis and status post drug-eluting stent placement postop day #1 -continue treatment per cardiology #3 ischemic cardiomyopathy-patient's echocardiogram today showed an EF of 35% #4 mild pulmonary hypertension #5 essential hypertension #6 GERD #7 osteoarthritis #8 hypoxia-oxygen will be weaned of #9 debility-secondary to multiple medical problems-PT and OT are seeing the patient Charges/Coding Visit Charges Inpatient E&M: 22916 Subs Hosp L2
[2020-11-18] MEDS: Atorvastatin Calcium 40 MG Tablet PO (21:25)
--- NOTE | 2020-11-18 21:33 | EKG12_ITS ---
Test Reason : CP Blood Pressure : / mmHG Vent. Rate : 064 BPM Atrial Rate : 064 BPM P-R Int : 176 ms QRS Dur : 074 ms QT Int : 460 ms P-R-T Axes : 063 -03 010 degrees QTc Int : 474 ms Normal sinus rhythm Nonspecific T wave abnormality Confirmed by JOSE ANTONIO BENNETT, BRIAN ([id number]), editorial manager CLAUDIA DIOP ([id number]) on 11/26/2020 9:01:40 AM Referred By: Gianfranco Topete Confirmed By:BRIAN BRADY MD
[2020-11-18] MEDS: fentaNYL 100 MCG/2 ML Ampul 25 MCG IV (22:21)
[2020-11-19] VITALS (7 sets, daily range): BP systolic 136–157; BP diastolic 77–92; PULSE 65–76; RESP 18; TEMP 35.9–36.4; O2SAT 93–97
[2020-11-19] MEDS: Acetaminophen 325 MG Tablet 650 MG PO ×2 (03:23→08:26)
[2020-11-19] MEDS: oxyCODONE 5 MG Tablet 10 MG PO ×2 (03:24→09:29)
[2020-11-19] MEDS: Enoxaparin 40 MG/0.4 ML Syringe SC (05:09)
[2020-11-19] MEDS: Aspirin 81 MG TAB.CHEW PO (08:25)
[2020-11-19] MEDS: Metoprolol(XL)Succ 25 MG Tablet PO (08:25)
[2020-11-19] MEDS: TICAGRELOR 90 MG TABLET PO (08:25)
[2020-11-19] MEDS: Losartan Potassium 50 MG Tablet PO (08:25)
[2020-11-19] MEDS: Famotidine 20 MG Tablet PO (08:25)
--- NOTE | 2020-11-19 10:00 | EKG12_ITS ---
Test Reason : AM EKG Blood Pressure : / mmHG Vent. Rate : 064 BPM Atrial Rate : 064 BPM P-R Int : 170 ms QRS Dur : 076 ms QT Int : 504 ms P-R-T Axes : 029 000 078 degrees QTc Int : 519 ms Normal sinus rhythm Anterior infarct , age undetermined , cannot be excluded ST and T abnormality, consider anterior lateral ischemia Prolonged QT Abnormal ECG Confirmed by JOSE ANTONIO BENNETT, BRIAN ([id number]), editor in chief newspaper CLAUDIA DIOP ([id number]) on 11/26/2020 9:00:52 AM Referred By: Gianfranco Topete Confirmed By:BRIAN BRADY MD
--- NOTE | 2020-11-19 12:15 | PCM.TXEXTCAR ---
Diet 11/16/20 22:35 Diet: Cardiac - Heart Healthy Food consistency:: Regular Liquid Consistency:: Regular/Thin Routine Orders/Code Status O2 Liters per Minute: 2 O2 Frequency: Continuous Keep PO Greater than or Equal to (%): 90 Wound(s) Right wrist: Wound Type: Puncture Left Shoulder: Wound Type: Puncture Therapies Weight Bearing: Full weight bearing Physical Therapy: Eval and Treat Occupational Therapy: Eval and Treat Problem/Diagnosis (1) Atherosclerosis of coronary artery of [place] heart without angina pectoris: Status: Acute Comment: S/P OTIS INSERTION (2) Cardiac arrest: Status: Acute (3) STEMI (ST elevation myocardial infarction): Status: Acute (4) Chest wall contusion: Status: Acute Comment: FROM CPR (5) GERD (gastroesophageal reflux disease): Status: Chronic (6) Osteoarthritis: Status: Chronic (7) Hypertension: Status: Chronic Allergies/Procedures Done in Hospital Allergies bee pollen Allergy (Verified 09/09/20 13:38) Anaphylaxis latex Allergy (Verified 09/09/20 13:38) Swelling morphine Allergy (Verified 09/09/20 13:38) Other hallucinations Penicillins Allergy (Verified 09/09/20 13:38) Hives hydrocodone bitartrate [From Vicodin] Adverse Reaction (Verified 09/09/20 13:38) Abd cramps/diarrhea Procedures: 2-D Echocardiogram and Cardiac catheterization Type of Care/Length of Stay Estimated LOS: Convalescent Care Less Than 30 days Type of Care Needed: Skilled Rehab Potential: Good Prognosis: Good Additional Orders/Day of Discharge H&P will serve as current which was dated: 11/16/20 Day of Discharge: 11/19/20 Dietary and Speech Recommendations Dietitian Recommendations/Changes: continue cardiac diet. Discharge Plan Admission Admit Date/Time: 11/16/20 23:06 Primary Reason for Your Visit: STEMI, CARDIAC ARREST Attending Provider: Leroy White Primary Care Provider: Alexi Morin Chi Consulting Providers: Gianfranco Topete Discharge Orders/Prescriptions Prescriptions: New losartan 50 mg Tablet 50 mg PO DAILY Qty: 1 RF: 0 acetaminophen [Tylenol] 325 mg Tablet 650 mg PO Q4H PRN PRN (Reason: Fever, pain 1-10/10) Qty: 1 RF: 0 aspirin 81 mg Tablet,Chewable 81 mg PO BREAKFAST Qty: 0 RF: 0 atorvastatin 40 mg Tablet 40 mg PO QHS Qty: 0 RF: 0 sennosides-docusate sodium [Stool Softener-Stimulant Laxat] 8.6-50 mg Tablet 2 tab PO BID PRN PRN (Reason: Constipation) Qty: 0 RF: 0 nitroglycerin 0.4 mg Tablet, Sublingual 0.4 mg sublingual Q5M PRN (Reason: Cardiac/Chest Pain) Qty: 0 RF: 0 metoprolol succinate 25 mg Tablet Extended Release 24 Hr 25 mg PO DAILY Qty: 0 RF: 0 Brilinta 90 mg Tablet 90 mg PO BID Qty: 0 RF: 0 Continued cholecalciferol (vitamin D3) 1,000 UNIT tablet 1,000 unit PO DAILY RF: 0 sennosides-docusate sodium 1 TABLET tablet 2 tab PO BID Qty: 14 RF: 0 meloxicam 7.5 MG tablet 7.5 mg PO BID Qty: 60 RF: 0 famotidine 20 MG tablet 20 mg PO DAILY Qty: 30 RF: 0 aspirin 81 MG tablet,chewable 81 mg PO BIDCM Qty: 60 RF: 0 ondansetron HCl 8 MG tablet 8 mg PO Q8H PRN PRN (Reason: Nausea) Qty: 21 RF: 0 Discontinued valsartan 160 MG tablet 160 mg PO DAILY RF: 0 acetaminophen 500 MG tablet 1,000 mg PO Q8 Qty: 100 RF: 0 Referrals / Follow Up: Alexi Morin Chi, MD [Primary Care Provider] - Disposition Disposition (needs filled in before D/C Order can be placed): Senior Living Facility
--- NOTE | 2020-11-19 12:17 | CASEMGMT ---
Addendum entered by Evi Baez 11/19/20 13:05: Orders copied. Evi GUERRERO Original Note: [facility]FA [facility] TCU and patient was approved. RAFA notified RN, physician, social secretary, patient and her family that was present in the room. Await orders. Plan: d/c to [facility] TCU under skilled level of care. Evi GUERRERO
--- NOTE | 2020-11-19 13:55 | PCM.PN.CARD ---
Subjective Subjective Doing well. Denies any cardiac complaints. Objective Data Vital Signs: Vital Signs Temp Pulse Resp BP Pulse Ox 97.0 F L 76 18 157/92 H 93 11/19/20 13:48 11/19/20 13:48 11/19/20 13:48 11/19/20 13:48 11/19/20 13:48 Oxygen Flow Rate (L/min) 2 Oxygen Delivery Method Room Air Weight: 202 lb 13.204 oz Body Mass Index (BMI) 36.8 Intake & Output: Intake and Output for Last 24 Hours 11/17/20 11/18/20 11/19/20 23:59 23:59 23:59 Intake Total 1429.4 / 1549.4 760 / 960 440 / 440 Output Total 825 / 825 100 / 400 1200 / 1200 Balance 604.4 / 724.4 660 / 560 -760 / -760 Lab / Micro Data Result Diagrams: 11/17/20 04:30 11/17/20 04:30 Micro: Microbiology 11/19/20 11:15 Mucosa - Nose SARS-CoV-2 Antigen (Rapid) - Final Cardiology Labs/Tests Rhythm: EKG: ECHO: Stress Test: Cardiac Cath: PCI: CT Surgery: Holter monitor: EPS: PPM: CXR: Chest CT Scan: Physical Exam Const alert and oriented x3 Orientation / Consciousness: awake HEENT normocephalic Eyes no scleral icterus Chest inspection of chest normal Resp normal respiratory effort Cardio regular rate Skin no rashes or lesions noted Assessment & Plan Assessment/Plan (1) Atherosclerosis of coronary artery of [place] heart without angina pectoris: QUALIFIERS: Coronary Disease-Associated Artery/Lesion type: [place] artery Qualified Code(s): I25.10 - Atherosclerotic heart disease of [place] coronary artery without angina pectoris PLAN: Doing well. Continue present management. Patient does have LV dysfunction. She would benefit from repeat echo in 3 months to assess LV function. (2) History of coronary artery stent placement: PLAN: Continue dual antiplatelet therapy. (3) STEMI (ST elevation myocardial infarction): QUALIFIERS: Involved coronary artery: unspecified coronary artery Qualified Code(s): I21.3 - ST elevation (STEMI) myocardial infarction of unspecified site PLAN: Continue present management. Charges/Coding Visit Charges Inpatient E&M: 22610 Subs Hosp L2
[2020-11-19] MEDS: Ketorolac 15 MG/ML Vial IV (15:52)
--- NOTE | 2020-11-20 17:05 | PCM.DC.SUM ---
Providers Date of Admission: 11/16/20 Date of Discharge: 11/19/20 Primary Care Physician: Dr. Alexi Morin MD Consultations 11/16/20 22:30 Consult: Cardiology Routine Consulting Provider: Gianfranco Topete Reason for Consult: STEMI EMERGENT Consult: Yes MD Notified: Yes Date Notified: 11/16/20 Time Notified: 22:32 Method of Notification: call for STEMI Reason For Visit: STEMI Diagnosis Discharge Diagnosis (1) Atherosclerosis of coronary artery of [place] heart without angina pectoris: Status: Acute Code(s): I25.10 - Atherosclerotic heart disease of [place] coronary artery without angina pectoris Qualifiers: Coronary Disease-Associated Artery/Lesion type: [place] artery Qualified Code(s): I25.10 - Atherosclerotic heart disease of [place] coronary artery without angina pectoris (2) History of coronary artery stent placement: Status: Acute Code(s): Z95.5 - Presence of coronary angioplasty implant and graft (3) STEMI (ST elevation myocardial infarction): Status: Acute Code(s): I21.3 - ST elevation (STEMI) myocardial infarction of unspecified site Qualifiers: Involved coronary artery: unspecified coronary artery Qualified Code(s): I21.3 - ST elevation (STEMI) myocardial infarction of unspecified site Plan: 1. Cardiac arrest secondary to ventricular fibrillation caused by acute STEMI #2 occlusive coronary artery disease with LAD stenosis #3 ischemic cardiomyopathy #4 mild pulmonary hypertension #5 essential hypertension #6 GERD #7 osteoarthritis #8 hypoxia #9 debility-secondary to multiple medical problems Medications at Discharge Home Medications cholecalciferol (vitamin D3) 1,000 unit PO DAILY 04/29/20 ondansetron HCl 8 mg PO Q8H PRN PRN #21 tab 05/13/20 acetaminophen [Tylenol] 650 mg PO Q4H PRN PRN #1 tab 11/19/20 aspirin 81 mg PO BIDCM 11/19/20 aspirin 81 mg PO BREAKFAST 11/19/20 atorvastatin 40 mg PO QHS 11/19/20 famotidine 20 mg PO DAILY 11/19/20 losartan 50 mg PO DAILY 11/19/20 meloxicam 7.5 mg PO BID 11/19/20 metoprolol succinate 25 mg PO DAILY 11/19/20 nitroglycerin 0.4 mg SUBLINGUAL Q5M PRN #0 tab 11/19/20 sennosides-docusate sodium 2 tablet PO BID 11/19/20 sennosides-docusate sodium [Stool Softener-Stimulant Laxat] 2 tab PO BID PRN PRN #0 tab 11/19/20 ticagrelor [Brilinta] 90 mg PO BID #0 tab 11/19/20 Hospital Course Operations None Procedures Cardiac catheterization (With placement of drug-eluting stent in LAD) Summary of Care Provided Minutes Spent on Discharge: 34 Hospital Course: This 75-year-old white female was brought to [facility] by squad after having a witnessed cardiac arrest at home, CPR was immediately initiated by her family, EMS arrived and patient was noted to be in V. fib fib on the monitor with a shock delivered x5 with return of spontaneous circulation. A STEMI call was made to [facility] and the patient was taken from an outside hospital emergency room directly to the cardiac catheterization lab. A cardiac catheterization with insertion of a OTIS in the LAD was performed, patient had no untoward complications. She was admitted to ICU and her medications were adjusted and she was taken off amiodarone drip. Patient was subsequently transferred to PCU and seen by PT and OT, patient was felt to be eligible for short-term inpatient rehab services and approval was obtained for her to go to TCU. On 11/19/2020, patient was seen and examined: On examination she appeared in good health and spirits, she does not appear to be in any distress. Vital signs as documented. Skin warm and dry and without overt rashes. Neck without JVD, thyroid appears normal, trachea is midline, neck is supple. Lungs clear, normal air movement was noted. Heart exam notable for regular rhythm, normal sounds and absence of murmurs, rubs or gallops. Abdomen unremarkable and without evidence of organomegaly, masses, or abdominal aortic enlargement, bowel sounds are present in all 4 quadrants, no abdominal tenderness was noted. Extremities nonedematous, no cyanosis was noted, no clubbing was noted. Neuro: Cranial nerves II through XII are grossly intact, no focal motor deficits were noted, sensation to light touch and pinprick is intact, motor exam 5/5 throughout. Psych: Patient is alert and oriented x3, she does not appear anxious or depressed, she does not appear agitated. Patient was transferred to TCU in stable condition on 11/19/2020. Weight / BMI Weight Weight: 92 kg Body Mass Index (BMI) 36.8 ABG / Lab / Microbiology Data Result Diagrams: 11/17/20 04:30 11/17/20 04:30 Microbiology: Microbiology 11/19/20 11:15 Mucosa - Nose SARS-CoV-2 Antigen (Rapid) - Final Meaningful Use Info Meaningful Use Diagnoses (Choose all that apply): AMI AMI/Post PCI/Angioplasty Aspirin given w/in 24hrs of arrival?: Yes ASA at discharge?: Yes Antiplatelet Therapy at Discharge:: Yes Statins at discharge?: Yes Eugenio/ARB at discharge?: Yes Beta Shanel at discharge?: Yes Done w/ Acute PA measure.: Yes Documented LVEF (%): 35 Discharge Plan Admission Admit Date/Time: 11/16/20 23:06 Primary Reason for Your Visit: STEMI, CARDIAC ARREST Attending Provider: Leroy White Primary Care Provider: Alexi Morin Chi Consulting Providers: Gianfranco Topete Discharge Orders/Prescriptions Prescriptions: New acetaminophen [Tylenol] 325 mg Tablet 650 mg PO Q4H PRN PRN (Reason: Fever, pain 1-01/30) Qty: 1 RF: 0 sennosides-docusate sodium [Stool Softener-Stimulant Laxat] 8.6-50 mg Tablet 2 tab PO BID PRN PRN (Reason: Constipation) Qty: 0 RF: 0 nitroglycerin 0.4 mg Tablet, Sublingual 0.4 mg sublingual Q5M PRN (Reason: Cardiac/Chest Pain) Qty: 0 RF: 0 Brilinta 90 mg Tablet 90 mg PO BID Qty: 0 RF: 0 Continued cholecalciferol (vitamin D3) 1,000 UNIT tablet 1,000 unit PO DAILY RF: 0 ondansetron HCl 8 MG tablet 8 mg PO Q8H PRN PRN (Reason: Nausea) Qty: 21 RF: 0 Discontinued valsartan 160 MG tablet 160 mg PO DAILY RF: 0 acetaminophen 500 MG tablet 1,000 mg PO Q8 Qty: 100 RF: 0 No Action losartan 50 mg tablet 50 mg PO DAILY RF: 0 atorvastatin 40 mg tablet 40 mg PO QHS RF: 0 sennosides-docusate sodium 1 TABLET tablet 2 tablet PO BID RF: 0 meloxicam 7.5 MG tablet 7.5 mg PO BID RF: 0 famotidine 20 MG tablet 20 mg PO DAILY RF: 0 aspirin 81 mg tablet,chewable 81 mg PO BREAKFAST RF: 0 aspirin 81 MG tablet,chewable 81 mg PO BIDCM RF: 0 metoprolol succinate 25 mg tablet extended release 24 hr 25 mg PO DAILY RF: 0 Referrals / Follow Up: Alexi Morin Chi, MD [Primary Care Provider] - Disposition Disposition (needs filled in before D/C Order can be placed): Detention Facility Charges/Coding Visit Charges Inpatient E&M: 69480 Disch Hosp
== END 2020-11-19 16:52 | disposition skilled nursing facility (03) | DRG 246 ==
LOC: ICU 11-17 09:01 → CLSP 11-17 10:50 → PCU 11-17 13:52
PROVIDERS: Family Medicine; Admitting Provider Internal Medicine; PCP Family Medicine Geriatric Medicine; Referring Provider Specialist; Visit Provider Internal Medicine
DX: I21.3 ST elevation (STEMI) myocardial infarction of unspecified site (principal); I46.9 Cardiac arrest, cause unspecified; I49.01 Ventricular fibrillation; E11.36 Type 2 diabetes mellitus with diabetic cataract; E11.41 Type 2 diabetes mellitus with diabetic mononeuropathy; E56.9 Vitamin deficiency, unspecified; E66.9 Obesity, unspecified; G20 Parkinson's disease; G57.91 Unspecified mononeuropathy of right lower limb; I10 Essential (primary) hypertension; I25.10 Atherosclerotic heart disease of native coronary artery without angina pectoris; I87.2 Venous insufficiency (chronic) (peripheral); K21.9 Gastro-esophageal reflux disease without esophagitis; M06.9 Rheumatoid arthritis, unspecified; M79.7 Fibromyalgia; Z95.5 Presence of coronary angioplasty implant and graft; I27.20 Pulmonary hypertension, unspecified; M19.90 Unspecified osteoarthritis, unspecified site; Z80.1 Family history of malignant neoplasm of trachea, bronchus and lung; Z68.37 Body mass index [BMI] 37.0-37.9, adult; Z80.3 Family history of malignant neoplasm of breast; Z82.5 Family history of asthma and other chronic lower respiratory diseases; Z83.3 Family history of diabetes mellitus; Z85.07 Personal history of malignant neoplasm of pancreas; Z85.43 Personal history of malignant neoplasm of ovary; Z86.73 Personal history of transient ischemic attack (TIA), and cerebral infarction without residual deficits; Z88.5 Allergy status to narcotic agent; Z90.49 Acquired absence of other specified parts of digestive tract; Z90.710 Acquired absence of both cervix and uterus; Z91.040 Latex allergy status; Z96.653 Presence of artificial knee joint, bilateral; Z88.0 Allergy status to penicillin
CPT/HCPCS: 71045; 80053; 80061; 83735; 84484; 85025; 85610; 85730; 87426; 92921; 92941; 93005; 93306; 93454; 94762; 97110; 97162; 97166; 97530; 97535; 97802; 99152; C1874; J7030; Q9957; Q9967; A4216; C1725; C1769; C1887; C1894; C8929; C9606; J1327; J3490

== ENCOUNTER 2020-11-19 17:05 | Inpatient (IN) | payer MEDICARE, SELFPAY ==
[2020-11-17 01:12] VITALS: BMI 36.8
--- NOTE | 2020-11-18 21:38 | EKG12_ITS ---
Test Reason : CP Blood Pressure : / mmHG Vent. Rate : 060 BPM Atrial Rate : 060 BPM P-R Int : 168 ms QRS Dur : 076 ms QT Int : 512 ms P-R-T Axes : 024 -05 012 degrees QTc Int : 512 ms Normal sinus rhythm Anterior infarct , age undetermined , cannot be excluded T wave abnormality, consider lateral ischemia Prolonged QT Abnormal ECG Confirmed by JOSE ANTONIO BENNETT, BRIAN ([id number]), editor index CLAUDIA DIOP ([id number]) on 11/26/2020 9:14:45 AM Referred By: Gianfranco Topete Confirmed By:BRIAN BRADY MD
[2020-11-19 17:42] VITALS: BP 153/82; PULSE 78; RESP 17; TEMP 36.7; O2SAT 98
[2020-11-19] MEDS: Acetaminophen 325 MG Tablet 650 MG PO (18:51)
[2020-11-19] MEDS: Senna/Docusate Sodium 1 Tablet 2 TABLET PO (18:52)
[2020-11-19 19:30] VITALS: PULSE 80; RESP 18; O2SAT 93
--- NOTE | 2020-11-19 19:33 | HP.PCM_ITS ---
HPI - General General Date of Admission: 11/19/20 HPI Narrative 11/16/2020 JIE HENRIQUEZ, is a 75 Female who presents with chest pain, cardiac arrest, CPR, return of spontaneous circulation. EKG showed STEMI at [facility] Emergency Department. Chest pain persistent, Aspirin, heparin drip, Amiodarone drip given. Chest pain 8 out of 10. Cardiac arrest secondary to ventricular fibrillation. Patient taken to blood bank laboratory professional. 11/16/2020 Cardiac cath drug eluting sent to left anterior descending. PTCA diagonal branch of LAD. Beta jannet started. Aspirin, Brilinta, ARB, statin. 11/17/2020 Echo EF 35%. Diastolic dysfunction. Hypokinesis of apex, anterior wall, distal septum. 11/18/2020 Case management recommended inpatient rehabilitation due to debility. Currently on oxygen per nasal cannula. 11/19/2020 Admit to TCU with debility, here for rehabilitation, strengthening, prior to discharge home with . [facility] Medical History Arthritis Atherosclerosis of coronary artery of [place] heart without angina pectoris Back pain Bone fracture Breast lump in female Cataracts, bilateral Chronic venous insufficiency of lower extremity Contusion of right lower leg, sequela Fibromyalgia Generalized osteoarthritis GERD (gastroesophageal reflux disease) Hemorrhoids History of back problems Incontinence Left breast lump Neuropathy of right lower extremity Obesity Rheumatoid arthritis Shoulder pain UTI (urinary tract infection) Vitamin deficiency Home Medications cholecalciferol (vitamin D3) 1,000 unit PO DAILY 04/29/20 [History Last Taken 11/16/20 09:00 1000 units] ondansetron HCl 8 mg PO Q8H PRN PRN #21 tab 05/13/20 [Rx Last Taken Unknown] acetaminophen [Tylenol] 650 mg PO Q4H PRN PRN #1 tab 11/19/20 [Rx Last Taken Unk nown] aspirin 81 mg PO BIDCM 11/19/20 [History Last Taken Unknown] aspirin 81 mg PO BREAKFAST 11/19/20 [History Last Taken Unknown] atorvastatin 40 mg PO QHS 11/19/20 [History Last Taken Unknown] famotidine 20 mg PO DAILY 11/19/20 [History Last Taken Unknown] losartan 50 mg PO DAILY 11/19/20 [History Last Taken Unknown] meloxicam 7.5 mg PO BID 11/19/20 [History Last Taken Unknown] metoprolol succinate 25 mg PO DAILY 11/19/20 [History Last Taken Unknown] nitroglycerin 0.4 mg SUBLINGUAL Q5M PRN #0 tab 11/19/20 [Rx Last Taken Unknown] sennosides-docusate sodium 2 tablet PO BID 11/19/20 [History Last Taken Unknown] sennosides-docusate sodium [Stool Softener-Stimulant Laxat] 2 tab PO BID PRN PRN #0 tab 11/19/20 [Rx Last Taken Unknown] ticagrelor [Brilinta] 90 mg PO BID #0 tab 11/19/20 [Rx Last Taken Unknown] Allergy/AdvReac Type Severity Reaction Status Date / Time bee pollen Allergy Anaphylaxis Verified 09/09/20 13:38 latex Allergy Swelling Verified 09/09/20 13:38 morphine Allergy Other Verified 09/09/20 13:38 Penicillins Allergy Hives Verified 09/09/20 13:38 hydrocodone bitartrate AdvReac Abd Verified 09/09/20 13:38 [From Vicodin] cramps/diarrhea Family History Father Diabetes Heart disease Hypertension CVA (cerebral vascular accident) Parkinson disease Mother Breast cancer Hypertension Grandmother Cancer pancreatic cancer Ovarian cancer Son Anesthesia complication Brother Asthma Arthritis Diabetes Respiratory disease Grandfather Lung cancer CVA (cerebral vascular accident) Surgical History Hematoma history bilateral breast biopsies History of bilateral knee replacement History of cataract surgery History of coronary artery stent placement (11/16/20) History of hysterectomy History of laparoscopic cholecystectomy History of left breast biopsy (~11/2017) History of repair of right rotator cuff History of tonsillectomy and adenoidectomy Hx of appendectomy Social History (Updated 11/19/20 @ 19:[address] Alexi Morin MD) household members: spouse Smoking Status: Never smoker alcohol intake: never substance use type: does not use additional social history: DOES USE ASPIRIN DOES NOT USE IBUPROFEN ROS Constitutional Constitutional: Denies chills, fever(s) or weight gain ENT HEENT: Denies headache(s), nasal congestion or nasal discharge Cardiovascular Cardiovascular: Denies chest pain or palpitations Respiratory/Chest Respiratory/Chest: Denies cough, excessive phlegm production or shortness of breath with exertion Gastrointestinal Gastrointestinal: Denies abdominal pain, nausea or vomiting Genitourinary Genitourinary: Denies dysuria Musculoskeletal Musculoskeletal: Denies joint pain or joint swelling Integumentary Integumentary: Denies rash or wounds Neurologic Neurologic: Denies focal weakness, numbness or tingling Psychiatric Psychiatric: Reports auditory hallucinations; Denies anxiety, depression, homicidal ideation or suicidal ideation Vital Signs Vital Signs Vital Signs: 11/19/20 17:42 Temperature 98.1 F Temperature Source Temporal Pulse Rate 78 Respiratory Rate 17 Blood Pressure 153/82 H Blood Pressure Mean 105 Blood Pressure Source Monitor Blood Pressure Position Supine Blood Pressure Location Left Arm Pulse Ox 98 Oxygen Delivery Method Room Air Weight Body Mass Index (BMI) 36.8 Physical Exam Const alert and oriented x3 General Appearance: cooperative HEENT normocephalic Eyes PERRL and EOMs intact bilaterally Neck supple, no JVD and no carotid bruits Resp normal respiratory effort, normal air movement and clear to auscultation bilaterally Cardio regular rate and regular rhythm GI normal to inspection, nondistended, normoactive bowel sounds, non-tender and non-distended Extremity normal capillary refill General Extremity: Negative for edema Skin no rashes or lesions noted General Skin Exam: no breakdown Psych affect normal Appearance: appropriate Assessment & Plan Assessment/Plan (1) Debility: (2) Chest pain: (3) Cardiac arrest: (4) Acute ST elevation myocardial infarction (STEMI): (5) Coronary artery disease: (6) Osteoarthritis of knee: (7) Hypertension: (8) Hyperlipidemia: (9) Depression: (10) Gastroesophageal reflux disease: PLAN: 75 year old female with below past medical history hospitalized for chest pain, cardiac arrest secondary to acute STEMI, underwent heart catheterization with OTIS LAD, PTCA diagonal LAD, admitted to TCU with debility, here for rehabilitation, strengthening, prior to discharge home with . * Debility - PT/OT. * Pain - Tylenol 1000MG Q6H prn pain (1-10). * Bowel - Senna/colace 2 tablets twice daily, Dulcolax 10mg daily PRN. * Adult immunization - Administer prevnar 13, pneumovax 23, fluzone, covid19 vaccine as appropriate. * DVT prophylaxis - Hold, on dual antiplatelet therapy. * Coronary artery disease status post intervention - Metoprolol succinate 25mg daily, Losartan 50mg daily, Brilinta 90mg twice daily, Asprin 81mg twice daily thru 12/17/2020, then aspirin 81mg daily, NTG 0.4MG SL Q5M PRn. * Hyperlipidemia - Atorvastatin 40mg qhs. * Vitamin D deficiency - D3 1000IU daily. * GERD - Famotidine 20mg daily. * Nausea - Zofran 8MG Q8H PRN.
[2020-11-19] MEDS: Atorvastatin Calcium 40 MG Tablet PO (20:35)
[2020-11-20] MEDS: Acetaminophen 500 MG Tablet 1000 MG PO ×2 (01:58→11:27)
--- NOTE | 2020-11-20 04:18 | NURSING ---
Addendum entered by Merlyn Galvez 11/20/20 07:08: Updated Dr. Morin of pain and nose bleeds overnight. Verbal orders for oxy PRN and nasal spray. Original Note: Patient had nose bleed overnight from picking a dry spot of skin in her nose. She'd been dabbing at it w/ tissue, got up to [facility] a few hours later and it started dripping blood, packed with gauze, bleeding stopped. Will monitor. She has bad chest pain w/ respositioning and movement. Tylenol given, she was able to fall asleep shortly after. Says pain now is controlled at 3-4/10, would like to see if can have something stronger for pain later today, denies needing anything else at this time. Said she previously took oxy but it made her feel like she didn't know where she was and she'd stopped taking.
[2020-11-20 06:10] VITALS: BP 148/93; PULSE 82; RESP 16; TEMP 36.1; O2SAT 94
[2020-11-20] MEDS: Losartan Potassium 50 MG Tablet PO (06:34)
[2020-11-20] MEDS: Senna/Docusate Sodium 1 Tablet 2 TABLET PO (06:35)
[2020-11-20] MEDS: Famotidine 20 MG Tablet PO (06:35)
[2020-11-20] MEDS: Cholecalciferol (VIT D3) 25 MCG TABLET (1,000 UNITS) PO (06:35)
[2020-11-20] MEDS: TICAGRELOR 90 MG TABLET PO ×2 (06:36→16:56)
[2020-11-20 06:37] VITALS: PULSE 82
[2020-11-20] MEDS: Metoprolol(XL)Succ 25 MG Tablet PO (06:37)
[2020-11-20] MEDS: Aspirin 81 MG TAB.CHEW PO (08:36)
[2020-11-20] MEDS: oxyCODONE 5 MG Tablet 2.5 MG PO ×3 (08:44→21:32)
[2020-11-20 08:51] LABS: Absolute Lymphocyte Count 1.05 X10^3/uL (0.83-4.51); Absolute Neutrophil Count 6.9 X10^3/uL (2.0-7.7); Basophil# 0.02 X10^3/uL; Basophil% 0.2 % (0-1); Eosinophil# 0.24 X10^3/uL; Eosinophils% 2.7 % (0-5); Hematocrit 36.6 % (37-47); Hemoglobin 11.7 g/dL (12.0-15.0); Lymphocyte # 1.05 X10^3/ul (0.83-4.51); Lymphocyte % 11.8 % (19-41); Mean Corpuscular Hgb 26.5 pg (27.0-32.0); Mean Corpuscular Volume 82.8 fL (81-99); Mean Platelet Vol. 10.2 fl (6.2-12.0); Monocyte# 0.63 X10^3/uL; Monocyte% 7.1 % (0-10); NRBC Flagged by Analyzer 0 % (0-5); Neutrophil # 6.93 X10^3/uL (2.7-7.7); Neutrophil % 77.5 % (47-70); Platelet Count 287 K/mm3 (150-450); RBC Distribution Width CV 14.2 % (11.6-14.6); RBC Distribution Width SD 42.5 fl (35.1-43.9); Red Blood Count 4.42 M/mm3 (4.2-5.4); White Blood Count 8.9 K/mm3 (4.4-11.0)
[2020-11-20 09:09] LABS: Anion Gap 6 (5-15); BUN 20 mg/dL (7-18); BUN/Creat Ratio 25.6 RATIO (10-20); Calcium,Total 8.8 mg/dL (8.5-10.1); Chloride 109 mmol/L (98-107); Creatinine, Serum 0.78 mg/dL (0.55-1.02); EST Glomerular Filtration Rate 77 mL/min (>60); Est Glom Filt Rate - Afr Amer 93 mL/min (>60); Glucose 110 mg/dL (74-106); Potassium 3.8 mmol/L (3.5-5.1); Sodium Level 140 mmol/L (136-145)
[2020-11-20] MEDS: Sodium Chloride 0.65% 1 SPRAY SPRAY.BTL NASAL ×2 (10:07→21:34)
[2020-11-20 11:14] VITALS: O2SAT 97
[2020-11-20] MEDS: Tuberculin,Purif.prot.deriv. 50 TU/ML Vial 0.1 ML ID (11:27)
[2020-11-20 12:22] VITALS: BMI 37.8
[2020-11-20 15:32] VITALS: BP 177/95; PULSE 75; RESP 19; TEMP 36.4; O2SAT 92
[2020-11-20] MEDS: traMADol 50 MG Tablet PO (16:59)
[2020-11-20 17:01] VITALS: BP 156/88; PULSE 78
[2020-11-20] MEDS: Atorvastatin Calcium 40 MG Tablet PO (21:35)
[2020-11-21] MEDS: traMADol 50 MG Tablet PO ×2 (00:36→18:07)
[2020-11-21] MEDS: oxyCODONE 5 MG Tablet 2.5 MG PO ×4 (02:54→20:43)
[2020-11-21 04:43] VITALS: BP 113/63; PULSE 71; RESP 14; TEMP 36.6; O2SAT 95
[2020-11-21] MEDS: Acetaminophen 500 MG Tablet 1000 MG PO (04:46)
[2020-11-21] MEDS: Famotidine 20 MG Tablet PO (04:47)
[2020-11-21] MEDS: Losartan Potassium 50 MG Tablet PO (04:47)
[2020-11-21] MEDS: TICAGRELOR 90 MG TABLET PO ×2 (04:47→16:59)
[2020-11-21 04:48] VITALS: BP 113/63; PULSE 71
[2020-11-21] MEDS: Senna/Docusate Sodium 1 Tablet 2 TABLET PO ×2 (04:48→16:59)
[2020-11-21] MEDS: Metoprolol(XL)Succ 25 MG Tablet PO (04:48)
[2020-11-21] MEDS: Cholecalciferol (VIT D3) 25 MCG TABLET (1,000 UNITS) PO (04:49)
[2020-11-21] MEDS: 0.9% Saline Lock 10 ML Syringe IV ×2 (04:59→14:19)
[2020-11-21 06:50] VITALS: BP 119/74; PULSE 74; RESP 20; TEMP 36.4; O2SAT 95
--- NOTE | 2020-11-21 07:20 | NURSING ---
Oxycodone given per dr order. Respiratory therapy arrives to floor to complete EKG.
--- NOTE | 2020-11-21 07:27 | NURSING ---
Pt calls reporting chest pain. Sitting in chair w/ BLE dependent. In no acute distress. Resp shallow, even, and unlabored. Gently rubs hand over sternum. Describes the pain like a knot is being tied. Pain at 8/10. Pain also worse w/ inspiration. NO audible wheezing noted. No cough noted. Lips pink. Skin pink/pale, warm, and dry. Reports numbness/tingling to her fingers that she thinks is new. A&O x 3. Denies any back pain, shoulder pain, pain to arms, or nausea. Positive for dizziness. Elevated LEs in recliner. O2 applied at 2 lpm via nc. Vitals obtained and recorded.
[2020-11-21 08:00] VITALS: O2SAT 96
[2020-11-21] MEDS: Aspirin 81 MG TAB.CHEW PO (08:08)
[2020-11-21] MEDS: Citalopram 10 MG Tablet PO (14:19)
[2020-11-21 16:00] VITALS: BP 122/76; PULSE 66; RESP 17; TEMP 36.4; O2SAT 93
[2020-11-21] MEDS: Atorvastatin Calcium 40 MG Tablet PO (20:45)
[2020-11-21 21:40] VITALS: PULSE 72; RESP 14
[2020-11-22] MEDS: Acetaminophen 500 MG Tablet 1000 MG PO ×2 (02:34→14:36)
[2020-11-22] MEDS: oxyCODONE 5 MG Tablet 2.5 MG PO ×3 (02:35→12:15)
[2020-11-22 04:28] VITALS: BP 143/75; PULSE 72; RESP 20; TEMP 36.6; O2SAT 96
[2020-11-22] MEDS: traMADol 50 MG Tablet PO ×2 (04:33→15:57)
[2020-11-22] MEDS: Famotidine 20 MG Tablet PO (04:34)
[2020-11-22] MEDS: TICAGRELOR 90 MG TABLET PO ×2 (04:34→17:14)
[2020-11-22] MEDS: Senna/Docusate Sodium 1 Tablet 2 TABLET PO ×2 (04:34→17:14)
[2020-11-22 04:35] VITALS: BP 143/75; PULSE 72
[2020-11-22] MEDS: Citalopram 10 MG Tablet PO (04:35)
[2020-11-22] MEDS: Cholecalciferol (VIT D3) 25 MCG TABLET (1,000 UNITS) PO (04:35)
[2020-11-22] MEDS: Metoprolol(XL)Succ 25 MG Tablet PO (04:35)
[2020-11-22] MEDS: Losartan Potassium 50 MG Tablet PO (04:36)
[2020-11-22] MEDS: 0.9% Saline Lock 10 ML Syringe IV (04:42)
[2020-11-22 06:49] VITALS: O2SAT 95
[2020-11-22] MEDS: Aspirin 81 MG TAB.CHEW PO (08:01)
[2020-11-22 09:37] VITALS: PULSE 69; RESP 16; O2SAT 96
[2020-11-22 14:17] VITALS: BP 123/65; PULSE 62; RESP 17; TEMP 36.4; O2SAT 95
--- NOTE | 2020-11-22 16:16 | CASEMGMT ---
Social Work Met with pt and completed initial assessment. SW discussed code status and assisted pt in completing MOLST form. Pt would like to be full code with intubation. MOLST communication give to doctor and placed on pt chart. SW explained [place] MR benefit and NRD of 11/22 with continued stay not guaranteed. Pt plans to return home with spouse at time of discharge. [facility] will continue to follow. HAMILTON Nayak
--- NOTE | 2020-11-22 17:11 | PCM.PN.RX ---
Progress Note - Pharmacy Subjective: TCU Admission Objective: Allergies bee pollen Allergy (Verified 09/09/20 13:38) Anaphylaxis latex Allergy (Verified 09/09/20 13:38) Swelling morphine Allergy (Verified 09/09/20 13:38) Other hallucinations Penicillins Allergy (Verified 09/09/20 13:38) Hives hydrocodone bitartrate [From Vicodin] Adverse Reaction (Verified 09/09/20 13:38) Abd cramps/diarrhea Current Medications Generic Name Dose Route Start Last Admin Trade Name Freq PRN Reason Stop Dose Admin Acetaminophen 1,000 mg 11/19/20 19:47 11/22/20 14:36 Acetaminophen 500 Mg Tablet PO 1,000 mg Q6H PRN PRN Administration Pain Score 1-10 Aspirin 81 mg 11/20/20 08:00 11/22/20 08:01 Aspirin 81 Mg Tab.Chew PO 81 mg BREAKFAST ANTONY Administration Atorvastatin Calcium 40 mg 11/19/20 22:00 11/21/20 20:45 Atorvastatin Calcium 40 Mg Tablet PO 40 mg QHS ANTONY Administration Bisacodyl 10 mg 11/19/20 19:47 Bisacodyl 5 Mg Tablet PO DAILY PRN Constipation Cholecalciferol 25 mcg 11/20/20 06:00 11/22/20 04:35 Cholecalciferol (Vit D3) 25 Mcg Tablet (1,000 Units) PO 25 mcg DAILY ANTONY Administration Citalopram Hydrobromide 10 mg 11/21/20 12:30 11/22/20 04:35 Citalopram 10 Mg Tablet PO 10 mg DAILY ANTONY Administration Famotidine 20 mg 11/20/20 06:00 11/22/20 04:34 Famotidine 20 Mg Tablet PO 20 mg DAILY ANTONY Administration Lorazepam 0.5 mg 11/22/20 08:05 Lorazepam 0.5 Mg Tablet PO Q4H PRN PRN ANXIETY/AGITATION Losartan Potassium 50 mg 11/20/20 06:00 11/22/20 04:36 Losartan Potassium 50 Mg Tablet PO 50 mg DAILY ANTONY Administration Metoprolol Succinate 25 mg 11/20/20 06:00 11/22/20 04:35 Metoprolol(Xl)Succ 25 Mg Tablet PO 25 mg DAILY ANTONY Administration Nitroglycerin 0.4 mg 11/19/20 18:03 Nitroglycerin (Inpatient Use) 0.4 Mg Tab.Subl SL Q5M PRN CARDIAC/CHEST PAIN Ondansetron HCl 8 mg 11/19/20 17:47 Ondansetron 8 Mg Tablet PO Q8H PRN PRN Nausea Oxycodone HCl 2.5 mg 11/20/20 07:06 11/22/20 12:15 Oxycodone 5 Mg Tablet PO 2.5 mg Q4H PRN PRN Administration Pain Score 6-10 Senna/Docusate Sodium 2 tablet 11/19/20 18:00 11/22/20 04:34 Senna/Docusate Sodium 1 Tablet PO 2 tablet BID ANTONY Administration Sodium Chloride 1 spray 11/20/20 07:07 11/20/20 21:34 Sodium Chloride 0.65% 1 [place].Btl NASAL 1 spray BID PRN PRN Administration NASAL DRYNESS Sodium Chloride 10 - 40 ml 11/21/20 04:38 11/22/20 04:42 0.9% Saline Lock 10 Ml Syringe IV 10 ml UD PRN Administration SALINE FLUSH Sodium Chloride 10 - 40 ml 11/22/20 08:04 0.9% Saline Lock 10 Ml Syringe IV UD PRN SALINE FLUSH Ticagrelor 90 mg 11/19/20 18:00 11/22/20 04:34 Ticagrelor 90 Mg Tablet PO 90 mg BID ANTONY Administration Tramadol HCl 50 mg 11/20/20 09:24 11/22/20 15:57 Tramadol 50 Mg Tablet PO 50 mg Q6H PRN PRN Administration Pain Score 1-5 Tuberculin PPD 0.1 ml 11/27/20 10:00 Tuberculin,Purif.Prot.Deriv. 50 Tu/Ml Vial ID 11/27/20 10:01 X1 ONE Problem List (Last Reviewed 11/19/20 @ 19:[address] Alexi Morin MD) Gastroesophageal reflux disease (Acute) Depression (Acute) Hyperlipidemia (Acute) Hypertension (Chronic) Osteoarthritis of knee (Acute) Coronary artery disease (Acute) Acute ST elevation myocardial infarction (STEMI) (Acute) Cardiac arrest (Acute) Chest pain (Acute) Debility (Acute) Vital Signs Temp Pulse Resp BP Pulse Ox 97.6 F L 62 17 123/65 H 95 11/22/20 14:17 11/22/20 14:17 11/22/20 14:17 11/22/20 14:17 11/22/20 14:17 Oxygen Flow Rate (L/min) 1 Oxygen Delivery Method Room Air Weight: 90.8 kg Body Mass Index (BMI) 37.8 Sodium 140 mmol/L (136-145) 11/20/20 07:58 Potassium 3.8 mmol/L (3.5-5.1) 11/20/20 07:58 Chloride 109 mmol/L (98-107) H 11/20/20 07:58 Carbon Dioxide 25.0 mmol/L (21.0-32.0) 11/20/20 07:58 Anion Gap 6 (5-15) 11/20/20 07:58 BUN 20 mg/dL (7-18) H 11/20/20 07:58 Creatinine 0.78 mg/dL (0.55-1.02) 11/20/20 07:58 Est GFR (MDRD) Af Amer 93 mL/min (>60) 11/20/20 07:58 Est GFR (MDRD) Non-Af 77 mL/min (>60) 11/20/20 07:58 BUN/Creatinine Ratio 25.6 RATIO (10-20) H 11/20/20 07:58 Glucose 110 mg/dL (74-106) H 11/20/20 07:58 Assessment/Plan: 1. Pain: acetaminophen 1000mg PO Q6H PRN pain 1-10, tramadol 50mg PO Q6H PRN pain 1-5 and oxycodone 2.5mg PO Q4H PRN pain 6-10. Please continue to monitor for increased pain, PRN usage, constipation and PRN usage. 2. CAD s/p intervention: metoprolol succinate 25mg PO daily, losartan 50mg PO daily, aspirin 81mg PO daily, ticagrelor 90mg PO BID and nitroglycerin 0.4mg SL Q5M PRN chest pain. Please continue to monitor BP (last 123/65), HR (last 62), S/S of bleeding, renal function, hemoglobin (last 11.7g/dL). 3. Hyperlipidemia: atorvastatin 40mg PO QHS. Please continue to monitor lipid panel (last 11/17/20) and for muscle pain. 4. GERD; famotidine 20mg PO daily. Please continue to monitor for S/S of GERD. 5. Nausea: ondansetron 8mg PO Q8H PRN nausea. Please continue to monitor for nausea and PRN usage. 6. Vitamin D deficiency: cholecalciferol 25mcg PO daily. Please continue to monitor vitamin D levels (last 05/24/20). 7. Nasal dryness: sodium chloride nasal spray 1 spray nasal BID PRN nasal dryness. Please continue to monitor for nasal dryness. Psychotropic Medications: 1. Anxiety: citalopram 10mg PO daily and lorazepam0.5mg PO Q4H PRN anxiety/agitation. New start for both medication. GDR not appropriate. Unnecessary Medications: None Bowel Regimen: senna/docusate 2T PO BID and bisacodyl 10mg PO daily PRN constipation. Please continue to monitor for constipation and PRN usage. Date of Note:: 11/22/20
[2020-11-22] MEDS: LORazepam 0.5 MG Tablet PO (19:28)
[2020-11-22] MEDS: Atorvastatin Calcium 40 MG Tablet PO (19:28)
[2020-11-22 19:30] VITALS: BP 119/68; PULSE 67; RESP 18; TEMP 36.6; O2SAT 97
[2020-11-23] MEDS: oxyCODONE 5 MG Tablet 2.5 MG PO (03:38)
[2020-11-23 03:42] VITALS: BP 118/61; PULSE 70; RESP 18; TEMP 36.6; O2SAT 97
[2020-11-23] MEDS: TICAGRELOR 90 MG TABLET PO ×2 (04:47→17:28)
[2020-11-23] MEDS: Citalopram 10 MG Tablet PO (04:47)
[2020-11-23 04:48] VITALS: BP 118/61; PULSE 70
[2020-11-23] MEDS: Metoprolol(XL)Succ 25 MG Tablet PO (04:48)
[2020-11-23] MEDS: Cholecalciferol (VIT D3) 25 MCG TABLET (1,000 UNITS) PO (04:48)
[2020-11-23] MEDS: Senna/Docusate Sodium 1 Tablet 2 TABLET PO ×2 (04:48→17:29)
[2020-11-23] MEDS: Losartan Potassium 50 MG Tablet PO (04:48)
[2020-11-23] MEDS: Famotidine 20 MG Tablet PO (04:48)
[2020-11-23] MEDS: Aspirin 81 MG TAB.CHEW PO (08:00)
--- NOTE | 2020-11-23 11:36 | NURSING ---
Resident educated on the COVID 19 Vaccine and she does not want to receive it.
[2020-11-23 14:25] VITALS: BP 130/66; PULSE 701; RESP 19; TEMP 35.6; O2SAT 94
[2020-11-23] MEDS: Atorvastatin Calcium 40 MG Tablet PO (19:44)
[2020-11-24] MEDS: oxyCODONE 5 MG Tablet 2.5 MG PO ×3 (00:09→20:31)
[2020-11-24 05:00] VITALS: BP 148/68; PULSE 88; RESP 18; TEMP 36.8; O2SAT 97
[2020-11-24 05:37] VITALS: BP 148/68; PULSE 88
[2020-11-24] MEDS: Cholecalciferol (VIT D3) 25 MCG TABLET (1,000 UNITS) PO (05:37)
[2020-11-24] MEDS: Famotidine 20 MG Tablet PO (05:37)
[2020-11-24] MEDS: Losartan Potassium 50 MG Tablet PO (05:37)
[2020-11-24] MEDS: Metoprolol(XL)Succ 25 MG Tablet PO (05:37)
[2020-11-24] MEDS: TICAGRELOR 90 MG TABLET PO ×2 (05:37→17:52)
[2020-11-24] MEDS: Citalopram 10 MG Tablet PO (05:37)
--- NOTE | 2020-11-24 07:47 | RAD_ITS ---
STUDY: X-RAY - ABDOMEN/PELVIS REASON FOR EXAM: Female, 75 years old. Diarrhea TECHNIQUE: Single AP view of the abdomen / pelvis. COMPARISON: None. FINDINGS: Normal visualized lung bases. There is an unremarkable bowel gas pattern. The visualized liver, spleen and kidneys are grossly normal in size and morphology. Status post cholecystectomy. Normal visualized osseous structures. RAD/Abdomen Single View IMPRESSION: Normal x-ray examination of the abdomen and pelvis. Electronically Signed: Igor García MD at 11:20 EDT Tel , Service support ,
[2020-11-24 07:55] VITALS: O2SAT 95
[2020-11-24] MEDS: Acetaminophen 500 MG Tablet 1000 MG PO ×2 (08:15→20:30)
[2020-11-24] MEDS: Aspirin 81 MG TAB.CHEW PO (08:17)
[2020-11-24 16:00] VITALS: BP 109/57; PULSE 65; RESP 16; TEMP 36.2; O2SAT 95
[2020-11-24] MEDS: Atorvastatin Calcium 40 MG Tablet PO (20:54)
[2020-11-24] MEDS: 0.9% Saline Lock 10 ML Syringe IV (20:56)
[2020-11-25] MEDS: oxyCODONE 5 MG Tablet 2.5 MG PO ×3 (00:33→20:32)
[2020-11-25] MEDS: traMADol 50 MG Tablet PO (03:04)
[2020-11-25 03:10] VITALS: BP 125/65; PULSE 60; RESP 24; TEMP 35.8; O2SAT 97
--- NOTE | 2020-11-25 03:11 | EKG12_ITS ---
Test Reason : CHEST PAIN Blood Pressure : / mmHG Vent. Rate : 060 BPM Atrial Rate : 060 BPM P-R Int : 192 ms QRS Dur : 082 ms QT Int : 498 ms P-R-T Axes : 061 001 026 degrees QTc Int : 498 ms Normal sinus rhythm Anterior infarct , age undetermined , cannot be excluded T wave abnormality, consider anterior-lateral ischemia Abnormal ECG Confirmed by JOSE ANTONIO BENNETT, BRIAN ([id number]), editor school photograph CLAUDIA DIOP ([id number]) on 11/29/2020 10:08:58 AM Referred By: JOSIE Confirmed By:BRIAN BRADY MD
--- NOTE | 2020-11-25 04:07 | NURSING ---
Patient called out saying her chest was hurting, oxy given couple hours ago but pain still 10/10. Tramadol given. VSS. Patient then complaining of new left arm and left neck pain, headache, and shortness of breath. Shallow breathing, patient holding her chest. EKG ordered and done. Results called to Dr. Morin, patient sent to ER for evaluation. Called contact Gallo's phone number, no answer, left voicemail with request for return call.
[2020-11-25 05:00] VITALS: BP 137/69; PULSE 68; RESP 18; TEMP 35.9; O2SAT 94
[2020-11-25] MEDS: Citalopram 10 MG Tablet PO (05:31)
[2020-11-25] MEDS: TICAGRELOR 90 MG TABLET PO ×2 (05:31→20:33)
[2020-11-25 05:32] VITALS: PULSE 68
[2020-11-25] MEDS: Losartan Potassium 50 MG Tablet PO (05:32)
[2020-11-25] MEDS: Metoprolol(XL)Succ 25 MG Tablet PO (05:32)
[2020-11-25] MEDS: Famotidine 20 MG Tablet PO (05:32)
[2020-11-25] MEDS: Cholecalciferol (VIT D3) 25 MCG TABLET (1,000 UNITS) PO (05:32)
[2020-11-25] MEDS: Senna/Docusate Sodium 1 Tablet 2 TABLET PO ×2 (05:32→20:33)
[2020-11-25] MEDS: Aspirin 81 MG TAB.CHEW PO (07:59)
--- NOTE | 2020-11-25 13:09 | CASEMGMT ---
Social Work Plan of care meeting held today with pt, pt's Gallo and two sons Morris and Cali present. Pt is receiving PT/OT and participating well. RAFA explained that pt is here under [facility] benefit and NRD is 11/29, continued stay is not gauranteed. Pt plans to return home with her at time of discharge. Will continue with treatment plan in TCU at this time as pt is functionally improving. HAMILTON Nayak
[2020-11-25 14:50] VITALS: BP 105/58; PULSE 63; RESP 16; TEMP 36.4; O2SAT 95
--- NOTE | 2020-11-25 16:27 | CHAPLAIN ---
Type of Pastoral Visit _x__ Initial Visit ___ Follow-up Visit ___ On-call Visit ___ General Patient Visit ___ Spiritual Assessment ___ Family Conference ___ Bereavement ___ Rapid Response ___ Code Blue ___ Other (describe below) Pastoral Care Referral From _x__ Patient ___ Family ___ Nurse ___ Physician ___ Bran Mixer ___ Potato Bucker ___ Other (describe below) Sacrament/Intervention _x__ Active listening ___ Anointing ___ Pentecostalism ___ Bereavement ___ Communion ___ Marivel exploration ___ ___ Life review _x__ Prayer ___ Reconciliation ___ Sacrament of Sick _x__ Supportive presence ___ Wedding ___ Other (describe below) Pastoral Comments
[2020-11-25] MEDS: LORazepam 0.5 MG Tablet PO (20:32)
[2020-11-25] MEDS: Atorvastatin Calcium 40 MG Tablet PO (20:33)
[2020-11-26] MEDS: oxyCODONE 5 MG Tablet 2.5 MG PO ×2 (01:29→22:59)
[2020-11-26 06:35] VITALS: BP 144/74; PULSE 65; RESP 18; TEMP 36.4; O2SAT 94
[2020-11-26 06:38] VITALS: PULSE 65
[2020-11-26] MEDS: Metoprolol(XL)Succ 25 MG Tablet PO (06:38)
[2020-11-26] MEDS: Famotidine 20 MG Tablet PO (06:38)
[2020-11-26] MEDS: Losartan Potassium 50 MG Tablet PO (06:38)
[2020-11-26] MEDS: Citalopram 10 MG Tablet PO (06:38)
[2020-11-26] MEDS: Senna/Docusate Sodium 1 Tablet 2 TABLET PO (06:39)
[2020-11-26] MEDS: TICAGRELOR 90 MG TABLET PO ×2 (06:39→16:54)
[2020-11-26] MEDS: Cholecalciferol (VIT D3) 25 MCG TABLET (1,000 UNITS) PO (06:39)
[2020-11-26] MEDS: Aspirin 81 MG TAB.CHEW PO (08:18)
[2020-11-26] MEDS: traMADol 50 MG Tablet PO ×2 (11:39→20:27)
--- NOTE | 2020-11-26 14:30 | CASEMGMT ---
SW completed PHQ9 depression screen with pt score of 13/27 indicating moderate depression. SW spoke with pt about feelings and pt does state that since her cardiac arrest, pt has been feeling depressed. SW reviewed coping strategies with pt and discussed talking to physician about medication. Pt is not interested in medication at this time. Pt stating that she will reach out to her speech language pathology assistant for support as well. Pt is also aware of hospital energy sales broker. SW to continue to follow. HAMILTON Nayak
[2020-11-26 15:20] VITALS: BP 133/74; PULSE 58; RESP 16; TEMP 36.3; O2SAT 95
--- NOTE | 2020-11-26 15:32 | CASEMGMT ---
Social Work Met with patient in room to complete advanced directives. Health Care Power of trademark attorney completed. Patient nominated spouse, Gallo as health care power of trademark attorney and Joss and Glen as alternatives. Original provided to patient and copy placed on patient chart. Teto RASHEED, SERENA
[2020-11-26] MEDS: 0.9% Saline Lock 10 ML Syringe IV (16:56)
[2020-11-26] MEDS: Atorvastatin Calcium 40 MG Tablet PO (20:27)
[2020-11-27 00:51] VITALS: BP 132/62; PULSE 67; RESP 18; TEMP 36.2; O2SAT 96
[2020-11-27] MEDS: Acetaminophen 500 MG Tablet 1000 MG PO ×3 (00:55→20:54)
[2020-11-27] MEDS: LORazepam 0.5 MG Tablet PO ×2 (00:55→11:27)
[2020-11-27 05:59] VITALS: BP 124/60; PULSE 62; RESP 18; TEMP 36.1; O2SAT 97
[2020-11-27] MEDS: Citalopram 10 MG Tablet PO (06:00)
[2020-11-27] MEDS: Famotidine 20 MG Tablet PO (06:00)
[2020-11-27] MEDS: Senna/Docusate Sodium 1 Tablet 2 TABLET PO (06:00)
[2020-11-27] MEDS: TICAGRELOR 90 MG TABLET PO ×2 (06:00→17:28)
[2020-11-27] MEDS: Losartan Potassium 50 MG Tablet PO (06:00)
[2020-11-27 06:01] VITALS: PULSE 62
[2020-11-27] MEDS: Cholecalciferol (VIT D3) 25 MCG TABLET (1,000 UNITS) PO (06:01)
[2020-11-27] MEDS: Metoprolol(XL)Succ 25 MG Tablet PO (06:01)
[2020-11-27] MEDS: traMADol 50 MG Tablet PO ×2 (06:04→14:52)
[2020-11-27 06:54] LABS: Absolute Lymphocyte Count 1.66 X10^3/uL (0.83-4.51); Absolute Neutrophil Count 5.7 X10^3/uL (2.0-7.7); Basophil# 0.04 X10^3/uL; Basophil% 0.5 % (0-1); Eosinophil# 0.34 X10^3/uL; Hematocrit 35.9 % (37-47); Hemoglobin 11.2 g/dL (12.0-15.0); Lymphocyte # 1.66 X10^3/ul (0.83-4.51); Lymphocyte % 19.6 % (19-41); Mean Corp Hgb Conc 31.2 g/dL (32-36); Mean Corpuscular Hgb 26.6 pg (27.0-32.0); Mean Corpuscular Volume 85.3 fL (81-99); Mean Platelet Vol. 9.6 fl (6.2-12.0); Monocyte# 0.67 X10^3/uL; Monocyte% 7.9 % (0-10); NRBC Flagged by Analyzer 0 % (0-5); Neutrophil # 5.71 X10^3/uL (2.7-7.7); Neutrophil % 67.4 % (47-70); Platelet Count 384 K/mm3 (150-450); RBC Distribution Width CV 14.6 % (11.6-14.6); RBC Distribution Width SD 45.1 fl (35.1-43.9); Red Blood Count 4.21 M/mm3 (4.2-5.4); White Blood Count 8.5 K/mm3 (4.4-11.0)
[2020-11-27 07:19] LABS: Anion Gap 5 (5-15); BUN 13 mg/dL (7-18); BUN/Creat Ratio 16.2 RATIO (10-20); Calcium,Total 8.8 mg/dL (8.5-10.1); Chloride 106 mmol/L (98-107); EST Glomerular Filtration Rate 74 mL/min (>60); Est Glom Filt Rate - Afr Amer 90 mL/min (>60); Estimated Creatinine Clearance 47.26 ml/min; Glucose 87 mg/dL (74-106); Potassium 4.5 mmol/L (3.5-5.1); Sodium Level 138 mmol/L (136-145)
[2020-11-27] MEDS: Aspirin 81 MG TAB.CHEW PO (10:01)
[2020-11-27] MEDS: Tuberculin,Purif.prot.deriv. 50 TU/ML Vial 0.1 ML ID (11:09)
[2020-11-27 11:19] VITALS: BP 112/56; PULSE 65; RESP 18; TEMP 36.6; O2SAT 94
--- NOTE | 2020-11-27 11:26 | NURSING ---
Reports midsternal to LT chest pain that is worse with movement and reproducible with palpation. Rates it an 11/30. VSS. Dr Morin paged and updated. New orders received.
[2020-11-27 14:45] VITALS: BP 125/62; PULSE 60; RESP 18; TEMP 36.1; O2SAT 97
[2020-11-27] MEDS: Lidocaine 5% Patch 1 PATCH TOPICAL (14:52)
[2020-11-27] MEDS: oxyCODONE 5 MG Tablet PO (20:53)
[2020-11-27] MEDS: Atorvastatin Calcium 40 MG Tablet PO (20:55)
[2020-11-28 04:55] VITALS: BP 117/64; PULSE 59; RESP 16; TEMP 36.1; O2SAT 94
[2020-11-28 05:00] VITALS: BP 117/64; PULSE 60
[2020-11-28] MEDS: Metoprolol(XL)Succ 25 MG Tablet PO (05:00)
[2020-11-28] MEDS: Cholecalciferol (VIT D3) 25 MCG TABLET (1,000 UNITS) PO ×2 (05:00)
[2020-11-28] MEDS: Citalopram 10 MG Tablet PO (05:01)
[2020-11-28] MEDS: Famotidine 20 MG Tablet PO (05:01)
[2020-11-28] MEDS: Losartan Potassium 50 MG Tablet PO (05:01)
[2020-11-28] MEDS: TICAGRELOR 90 MG TABLET PO ×2 (05:01→17:05)
[2020-11-28] MEDS: Lidocaine 5% Patch 1 PATCH TOPICAL (05:03)
[2020-11-28] MEDS: Acetaminophen 500 MG Tablet 1000 MG PO ×2 (07:28→16:09)
[2020-11-28] MEDS: oxyCODONE 5 MG Tablet PO ×2 (07:28→16:09)
[2020-11-28] MEDS: Aspirin 81 MG TAB.CHEW PO (09:03)
[2020-11-28 14:42] VITALS: BP 107/52; PULSE 54; RESP 15; TEMP 36; O2SAT 94
[2020-11-28] MEDS: Atorvastatin Calcium 40 MG Tablet PO (20:10)
[2020-11-29 06:12] VITALS: BP 138/77; PULSE 67; RESP 20; TEMP 36.9; O2SAT 97
[2020-11-29 06:14] VITALS: PULSE 67
[2020-11-29] MEDS: Famotidine 20 MG Tablet PO (06:14)
[2020-11-29] MEDS: Citalopram 10 MG Tablet PO (06:14)
[2020-11-29] MEDS: Lidocaine 5% Patch 1 PATCH TOPICAL (06:14)
[2020-11-29] MEDS: Losartan Potassium 50 MG Tablet PO (06:14)
[2020-11-29] MEDS: Senna/Docusate Sodium 1 Tablet 2 TABLET PO (06:14)
[2020-11-29] MEDS: Metoprolol(XL)Succ 25 MG Tablet PO (06:14)
[2020-11-29] MEDS: TICAGRELOR 90 MG TABLET PO ×2 (06:14→18:42)
[2020-11-29] MEDS: Aspirin 81 MG TAB.CHEW PO (07:55)
[2020-11-29 14:09] VITALS: BP 112/54; PULSE 67; RESP 22; TEMP 36.6; O2SAT 93
[2020-11-29 20:00] VITALS: PULSE 82; RESP 16
--- NOTE | 2020-11-29 21:30 | NURSING ---
Presents in bed with eyes closed. Responds to verbal stimuli. Pleasant and cooperative. Denies pain/anxiety at this time. No distress observed or reported. Call light in reach.
[2020-11-29] MEDS: Atorvastatin Calcium 40 MG Tablet PO (21:44)
[2020-11-30 04:58] VITALS: BP 135/75; PULSE 71; RESP 14; TEMP 36; O2SAT 98
[2020-11-30] MEDS: 0.9% Saline Lock 10 ML Syringe IV (05:01)
[2020-11-30] MEDS: Lidocaine 5% Patch 1 PATCH TOPICAL (05:02)
[2020-11-30 05:03] VITALS: BP 135/75; PULSE 71
[2020-11-30] MEDS: Famotidine 20 MG Tablet PO (05:03)
[2020-11-30] MEDS: Metoprolol(XL)Succ 25 MG Tablet PO (05:03)
[2020-11-30] MEDS: Losartan Potassium 50 MG Tablet PO (05:04)
[2020-11-30] MEDS: TICAGRELOR 90 MG TABLET PO ×2 (05:04→17:01)
[2020-11-30] MEDS: Cholecalciferol (VIT D3) 25 MCG TABLET (1,000 UNITS) PO (05:04)
[2020-11-30] MEDS: Citalopram 10 MG Tablet PO (05:04)
[2020-11-30] MEDS: oxyCODONE 5 MG Tablet PO ×3 (05:16→19:38)
--- NOTE | 2020-11-30 07:22 | MDS.RN ---
Information for the mds was obtained from review of the clinical record, interview of resident, staff, and direct observation of resident's care.
[2020-11-30] MEDS: Aspirin 81 MG TAB.CHEW PO (08:01)
[2020-11-30 14:19] VITALS: BP 109/54; PULSE 57; RESP 16; TEMP 36.2; O2SAT 96
--- NOTE | 2020-11-30 16:50 | CHAPLAIN ---
Type of Pastoral Visit ___ Initial Visit _x__ Follow-up Visit ___ On-call Visit ___ General Patient Visit ___ Spiritual Assessment ___ Family Conference ___ Bereavement ___ Rapid Response ___ Code Blue ___ Other (describe below) Pastoral Care Referral From _x__ Patient ___ Family ___ Nurse ___ Physician ___ Doughnut Machine Operator ___ Vb Net Developer ___ Other (describe below) Sacrament/Intervention _x__ Active listening ___ Anointing ___ Religion ___ Bereavement ___ Communion ___ Marivel exploration ___ ___ Life review _x__ Prayer ___ Reconciliation ___ Sacrament of Sick _x__ Supportive presence ___ Wedding ___ Other (describe below) Pastoral Comments
[2020-11-30] MEDS: Atorvastatin Calcium 40 MG Tablet PO (22:16)
[2020-12-01] MEDS: Lidocaine 5% Patch 1 PATCH TOPICAL (06:23)
[2020-12-01 06:24] VITALS: BP 125/54; PULSE 64
[2020-12-01] MEDS: Losartan Potassium 50 MG Tablet PO (06:24)
[2020-12-01] MEDS: Metoprolol(XL)Succ 25 MG Tablet PO (06:24)
[2020-12-01] MEDS: TICAGRELOR 90 MG TABLET PO ×2 (06:24→17:03)
[2020-12-01] MEDS: Citalopram 10 MG Tablet PO (06:24)
[2020-12-01] MEDS: Famotidine 20 MG Tablet PO (06:24)
[2020-12-01] MEDS: Cholecalciferol (VIT D3) 25 MCG TABLET (1,000 UNITS) PO (06:24)
[2020-12-01] MEDS: Senna/Docusate Sodium 1 Tablet 2 TABLET PO (06:26)
[2020-12-01 06:34] VITALS: BP 125/54; PULSE 64; RESP 16; TEMP 36.6; O2SAT 100
[2020-12-01] MEDS: Aspirin 81 MG TAB.CHEW PO (08:12)
[2020-12-01 14:45] VITALS: BP 170/56; PULSE 52; RESP 18; TEMP 36.4; O2SAT 96
[2020-12-01] MEDS: Atorvastatin Calcium 40 MG Tablet PO (21:52)
[2020-12-01] MEDS: oxyCODONE 5 MG Tablet PO (21:53)
[2020-12-01] MEDS: Acetaminophen 500 MG Tablet 1000 MG PO (21:53)
[2020-12-02 05:00] VITALS: BP 112/55; PULSE 56; RESP 16; TEMP 37.1; O2SAT 96
[2020-12-02] MEDS: Lidocaine 5% Patch 1 PATCH TOPICAL (05:18)
[2020-12-02] MEDS: Citalopram 10 MG Tablet PO (05:18)
[2020-12-02] MEDS: Famotidine 20 MG Tablet PO (05:19)
[2020-12-02] MEDS: TICAGRELOR 90 MG TABLET PO ×2 (05:19→17:15)
[2020-12-02] MEDS: Cholecalciferol (VIT D3) 25 MCG TABLET (1,000 UNITS) PO (05:19)
[2020-12-02] MEDS: Losartan Potassium 50 MG Tablet PO (05:19)
[2020-12-02 05:21] VITALS: BP 112/55; PULSE 56
[2020-12-02] MEDS: Metoprolol(XL)Succ 25 MG Tablet PO (05:21)
[2020-12-02] MEDS: Aspirin 81 MG TAB.CHEW PO (08:39)
[2020-12-02 10:00] VITALS: PULSE 58; RESP 18; O2SAT 99
--- NOTE | 2020-12-02 14:39 | CASEMGMT ---
Social Work Pt requesting to return home on Sunday. SW spoke with team who is in agreement with discharge and state pt will be following up with Cardiac Rehab. Pt stating she has an appointment on 12/15 with cardiac rehab. Pt has all needed DME. Pt will be returning home with her spouse who can assist as needed and provide transportation. Pt's children are supportive. No discharge needs at this time. Discharge Date: 12/05/20 Discharge Disposition: Home with her spouse, cardiac rehab. HAMILTON Nayak
[2020-12-02 15:00] VITALS: BP 106/47; PULSE 60; RESP 17; TEMP 36.6; O2SAT 97
[2020-12-02] MEDS: Atorvastatin Calcium 40 MG Tablet PO (20:08)
[2020-12-02] MEDS: oxyCODONE 5 MG Tablet PO (23:53)
[2020-12-02] MEDS: Acetaminophen 500 MG Tablet 1000 MG PO (23:53)
[2020-12-03 05:00] VITALS: BP 119/56; PULSE 55; RESP 16; TEMP 35.8; O2SAT 94
[2020-12-03] MEDS: Losartan Potassium 50 MG Tablet PO (06:17)
[2020-12-03] MEDS: TICAGRELOR 90 MG TABLET PO ×2 (06:17→17:52)
[2020-12-03] MEDS: Cholecalciferol (VIT D3) 25 MCG TABLET (1,000 UNITS) PO (06:18)
[2020-12-03] MEDS: Citalopram 10 MG Tablet PO (06:18)
[2020-12-03] MEDS: Famotidine 20 MG Tablet PO (06:18)
[2020-12-03] MEDS: Senna/Docusate Sodium 1 Tablet 2 TABLET PO (06:18)
[2020-12-03] MEDS: Lidocaine 5% Patch 1 PATCH TOPICAL (06:19)
[2020-12-03 06:58] VITALS: PULSE 50
[2020-12-03] MEDS: Aspirin 81 MG TAB.CHEW PO (09:13)
--- NOTE | 2020-12-03 13:17 | MDS.RN ---
Pain interview for allegra 12/05/20 completed.
--- NOTE | 2020-12-03 13:33 | CASEMGMT ---
Social Work BIMS(15) and PHQ-9(9) completed on this date. SW spoke to pt about symptoms of depression that are showing to be present in the PHQ-9 assessment. Pt relates it to a decline in health and having to be in TCU. She states she did not feel this way prior to being here. SW spoke to pt about counseling, pt is not interested at this time. SW also let pt know if she is interested in medication, to speak w/Dr. Morin, she states she is not interested in this at at this time. SW remains available for referrals and support for pt as needed. SERENA Wall
[2020-12-03 14:18] VITALS: BP 111/60; PULSE 58; RESP 16; TEMP 36.5; O2SAT 97
[2020-12-03] MEDS: busPIRone 5 MG Tablet PO (22:15)
[2020-12-03] MEDS: Atorvastatin Calcium 40 MG Tablet PO (22:16)
[2020-12-04 00:17] VITALS: PULSE 59; RESP 12
[2020-12-04] MEDS: TICAGRELOR 90 MG TABLET PO ×2 (04:45→18:07)
[2020-12-04] MEDS: busPIRone 5 MG Tablet PO ×2 (04:45→18:07)
[2020-12-04] MEDS: Famotidine 20 MG Tablet PO (04:46)
[2020-12-04] MEDS: Lidocaine 5% Patch 1 PATCH TOPICAL (04:46)
[2020-12-04] MEDS: Citalopram 10 MG Tablet PO (04:46)
[2020-12-04] MEDS: Losartan Potassium 50 MG Tablet PO (04:46)
[2020-12-04 04:47] VITALS: BP 151/60; PULSE 58
[2020-12-04] MEDS: Metoprolol(XL)Succ 25 MG Tablet PO (04:47)
[2020-12-04] MEDS: Cholecalciferol (VIT D3) 25 MCG TABLET (1,000 UNITS) PO (04:48)
[2020-12-04 06:40] VITALS: BP 151/60; PULSE 63; RESP 17; TEMP 36.6; O2SAT 97
[2020-12-04] MEDS: Aspirin 81 MG TAB.CHEW PO (08:01)
[2020-12-04 08:31] LABS: Absolute Lymphocyte Count 1.06 X10^3/uL (0.83-4.51); Absolute Neutrophil Count 4.4 X10^3/uL (2.0-7.7); Basophil# 0.04 X10^3/uL; Basophil% 0.6 % (0-1); Eosinophils% 3.2 % (0-5); Hematocrit 37.1 % (37-47); Hemoglobin 11.4 g/dL (12.0-15.0); Lymphocyte # 1.06 X10^3/ul (0.83-4.51); Lymphocyte % 17.1 % (19-41); Mean Corp Hgb Conc 30.7 g/dL (32-36); Mean Corpuscular Hgb 26.5 pg (27.0-32.0); Mean Corpuscular Volume 86.1 fL (81-99); Mean Platelet Vol. 9.6 fl (6.2-12.0); Monocyte# 0.51 X10^3/uL; Monocyte% 8.2 % (0-10); NRBC Flagged by Analyzer 0 % (0-5); Neutrophil # 4.37 X10^3/uL (2.7-7.7); Neutrophil % 70.4 % (47-70); Platelet Count 366 K/mm3 (150-450); RBC Distribution Width CV 14.2 % (11.6-14.6); RBC Distribution Width SD 44.4 fl (35.1-43.9); Red Blood Count 4.31 M/mm3 (4.2-5.4); White Blood Count 6.2 K/mm3 (4.4-11.0)
[2020-12-04 08:56] LABS: Anion Gap 4 (5-15); BUN 16 mg/dL (7-18); BUN/Creat Ratio 24.1 RATIO (10-20); Calcium,Total 9.1 mg/dL (8.5-10.1); Chloride 109 mmol/L (98-107); Creatinine, Serum 0.66 mg/dL (0.55-1.02); EST Glomerular Filtration Rate 93 mL/min (>60); Est Glom Filt Rate - Afr Amer 112 mL/min (>60); Estimated Creatinine Clearance 37.81 ml/min; Glucose 83 mg/dL (74-106); Potassium 4.1 mmol/L (3.5-5.1); Sodium Level 141 mmol/L (136-145)
[2020-12-04 11:55] VITALS: PULSE 60; RESP 18
[2020-12-04 14:10] VITALS: BP 109/54; PULSE 54; RESP 16; TEMP 36.3; O2SAT 97
[2020-12-04] MEDS: Senna/Docusate Sodium 1 Tablet 2 TABLET PO (18:07)
[2020-12-04] MEDS: Atorvastatin Calcium 40 MG Tablet PO (21:08)
[2020-12-05] MEDS: Citalopram 10 MG Tablet PO (05:19)
[2020-12-05] MEDS: Losartan Potassium 50 MG Tablet PO (05:19)
[2020-12-05] MEDS: Famotidine 20 MG Tablet PO (05:19)
[2020-12-05] MEDS: busPIRone 5 MG Tablet PO (05:19)
[2020-12-05] MEDS: TICAGRELOR 90 MG TABLET PO (05:19)
[2020-12-05 05:20] VITALS: BP 156/75; PULSE 63
[2020-12-05] MEDS: Metoprolol(XL)Succ 25 MG Tablet PO (05:20)
[2020-12-05] MEDS: Cholecalciferol (VIT D3) 25 MCG TABLET (1,000 UNITS) PO (05:20)
[2020-12-05 07:26] VITALS: BP 156/75; PULSE 63; RESP 14; TEMP 36.3; O2SAT 96
[2020-12-05] MEDS: Aspirin 81 MG TAB.CHEW PO (08:18)
[2020-12-05 10:00] VITALS: PULSE 72; RESP 18
--- NOTE | 2020-12-05 10:33 | DCINST_ITS ---
Discharge Instructions Diet Discharge Diet: - (LOW salt/Low fat diet.) Activity Discharge Activity: - (Start walking 6-7 days a week and gradually build up to 30 minutes a day. Do NOT walk up hills until cardiac rehab tells you it is OK. Stay on flat ground for now. ) May resume sexual activity in: 10-14 days Weight Bearing Status: Full weight bearing Lifting Restrictions: no more than 10 lbs. Dressing / Incision Call your doctor if your incision/area has: Increased Pain/ Swelling, Increased Redness and Foul Smelling Discharge Call your doctor if you observe: Fever of 101 or Higher, Shortness of breath, Dizziness, Fainting spells, Swelling in the ankles, Chest pain, Increased palpitations (irregular heartbeat) and Calf discomfort Follow Up Care Please Follow Up With: Gianfranco Topete MD When: 2 weeks Test Results: Test results from this visit will be discussed in further detail at your follow-up appointment, if applicable. Pending Tests Upon Discharge: none Discharge Plan Admission Admit Date/Time: 11/19/20 17:05 Primary Reason for Your Visit: debility due to STEMI/cardiac arrest/ischemic cardiomyopathy Attending Provider: Alexi Morin Chi Primary Care Provider: Alexi Morin Chi Instructions Patient Instructions: Depression Affects Your Mind ..., Depression: Tips to Help Yourself, CAD, Cholesterol Lifestyle Changes, Cardiac Rehab Getting Started, Heart Attack Meds, ED Chest Pain, Noncardiac Additional Instructions / Restrictions: 1. Get yourself a good scale and weigh yourself every morning without clothes after urinating and keep a record. Your heart has been damaged by the heart attack. Normally when a heart squeezes it wheezes 55 to 65% of the blood out of the heart. This is called the ejection fraction. Your ejection fraction is 35% which is moderately impaired. When this happens you tend to retain fluid. One of the best ways to determine if you are retaining fluid is to monitor your weight daily and if the weight goes up more than 5 pounds in 1 week you should call your retail project merchandiser. 2. You have stents in your heart now to keep the coronary arteries open. The stents can become clogged if the medications are not taken appropriately. Platelets are a component of your blood that help clot your blood if you get a cut. Platelets will clumped together and dam the hole. Soemtimes the platelets will clump together within a blood vessel and create a clot that can get stuck in one of the coronary arteries. For the first year after stents have been placed you will need to take 2 antiplatelet drugs. You will be taking Aspirin and Brilinta. It is very important not to miss these drugs. 3. You will need to go to cardiac rehab after you are discharged from the hospital. They will monitor your heart and BP while gradually increasing your activity to make sure increased exertion does not cause a problem. 4. I have given you a prescription for Nitroglycerin (NTG). You should keep this with you at all times, in case you get chest pain. If you get chest pain the first thing to do is sit down and put one under your tongue to melt. Then you wait 5 minutes. If the pain is still there after [address] another tab under your tongue and wait 5 minutes and if the pain is still present place a third under your tongue and call the EMT squad. Do NOT drive yourself to the ER or have a friend drive you. Call the squad. The reason you must sit down is NTG can make you lightheaded and drop your BP and you do not want to fall down. 5. Dr. Morin placed you on a medication called Celexa (Citalopram). This medication helps to control anxiety and depression. This is normal after a heart attack and cardiac arrest. It is scary and anxiety provoking. The Celexa can take up to 3-4 weeks to have a good effect on controlling anxiety. In the interim I added a drug called Buspar which is a non-addictive medication to control anxiety. You will take it twice a day. 6. The clogged arteries in your heart have been opened up. If you exercise, eat right, take your medications as prescribed and follow up with your doctor regularly you should be fine. Discharge Orders/Prescriptions Prescriptions: New buspirone 5 mg Tablet 5 mg PO BID Qty: 60 RF: 0 loperamide 2 mg Capsule 2 mg PO Q2H PRN PRN (Reason: Diarrhea) Qty: 0 RF: 0 citalopram 10 mg Tablet 10 mg PO DAILY Qty: 30 RF: 0 lidocaine 5 % Adhesive Patch,Medicated 1 patch topical DAILY Qty: 14 RF: 0 Remove Patch 0 patch topical DAILY@2200 Qty: 0 RF: 0 Continued cholecalciferol (vitamin D3) 1,000 UNIT tablet 25 mcg PO DAILY RF: 0 ondansetron HCl 8 MG tablet 8 mg PO Q8H PRN PRN (Reason: Nausea) Qty: 21 RF: 0 acetaminophen [Tylenol] 325 mg Tablet 650 mg PO Q4H PRN PRN (Reason: Fever, pain 1-01/30) Qty: 1 RF: 0 famotidine 20 MG tablet 20 mg PO DAILY RF: 0 aspirin 81 mg tablet,chewable 81 mg PO BREAKFAST RF: 0 losartan 50 mg tablet 50 mg PO DAILY Qty: 30 RF: 0 atorvastatin 40 mg tablet 40 mg PO QHS Qty: 30 RF: 0 citalopram 10 mg Tablet 10 mg PO DAILY Qty: 30 RF: 0 nitroglycerin 0.4 mg Tablet, Sublingual 0.4 mg sublingual Q5M PRN (Reason: Cardiac/Chest Pain) Qty: 1 RF: 0 metoprolol succinate 25 mg tablet extended release 24 hr 25 mg PO DAILY Qty: 30 RF: 0 Brilinta 90 mg Tablet 90 mg PO BID Qty: 60 RF: 0 Discontinued sennosides-docusate sodium [Stool Softener-Stimulant Laxat] 8.6-50 mg Tablet 2 tab PO BID PRN PRN (Reason: Constipation) Qty: 0 RF: 0 sennosides-docusate sodium 1 TABLET tablet 2 tablet PO BID RF: 0 tramadol 50 mg Tablet 50 mg PO Q6H PRN (Reason: Pain) RF: 0 lorazepam [Ativan] 0.5 mg Tablet 0.5 mg PO Q4H PRN PRN (Reason: Anxiety) RF: 0 Referrals / Follow Up: Alexi Morin Chi, MD [Primary Care Provider] - Disposition Disposition (needs filled in before D/C Order can be placed): Home, Self Care
--- NOTE | 2020-12-05 10:37 | PCM.DC.SUM ---
Providers Date of Admission: 11/19/20 Primary Care Physician: Dr. Alexi Morin MD Reason For Visit: STEMI Diagnosis Discharge Diagnosis (1) Debility: Status: Acute Code(s): R53.81 - Other malaise (2) Acute ST elevation myocardial infarction (STEMI): Status: Acute Code(s): I21.3 - ST elevation (STEMI) myocardial infarction of unspecified site (3) Cardiac arrest: Status: Acute Code(s): I46.9 - Cardiac arrest, cause unspecified (4) Coronary artery disease: Status: Acute Code(s): I25.10 - Atherosclerotic heart disease of [place] coronary artery without angina pectoris (5) History of coronary artery stent placement: Status: Acute Code(s): Z95.5 - Presence of coronary angioplasty implant and graft (6) Ischemic cardiomyopathy: Status: Acute Code(s): I25.5 - Ischemic cardiomyopathy (7) Hyperlipidemia: Status: Acute Code(s): E78.5 - Hyperlipidemia, unspecified (8) Depression: Status: Acute Code(s): F32.9 - Major depressive disorder, single episode, unspecified (9) Anxiety: Status: Acute Code(s): F41.9 - Anxiety disorder, unspecified (10) HTN (hypertension): Status: Chronic Code(s): I10 - Essential (primary) hypertension (11) Diastolic dysfunction: Status: Acute Code(s): I51.89 - Other ill-defined heart diseases Medications at Discharge Home Medications cholecalciferol (vitamin D3) 25 mcg PO DAILY 04/29/20 ondansetron HCl 8 mg PO Q8H PRN PRN #21 tab 05/13/20 acetaminophen [Tylenol] 650 mg PO Q4H PRN PRN #1 tab 11/19/20 aspirin 81 mg PO BREAKFAST 11/19/20 famotidine 20 mg PO DAILY 11/19/20 Brilinta 90 mg PO BID #60 tab 12/05/20 Remove Patch 0 patch TOPICAL DAILY@2200 #0 12/05/20 atorvastatin 40 mg PO QHS #30 tab 12/05/20 buspirone 5 mg PO BID #60 tab 12/05/20 citalopram 10 mg PO DAILY #30 tab 12/05/20 citalopram 10 mg PO DAILY #30 tab 12/05/20 lidocaine 1 patch TOPICAL DAILY #14 ea 12/05/20 loperamide 2 mg PO Q2H PRN PRN #0 cap 12/05/20 losartan 50 mg PO DAILY #30 tab 12/05/20 metoprolol succinate 25 mg PO DAILY #30 tab 12/05/20 nitroglycerin 0.4 mg SUBLINGUAL Q5M PRN #1 bottle 12/05/20 Hospital Course Operations None Procedures None Summary of Care Provided Minutes Spent on Discharge: 45 Hospital Course: Glory Moon is a 75-year-old female who had a STEMI and cardiac arrest on 11/16/20. She had ROSC and was taken to the cardiac catheterization technologist by Dr. Topete. She had a 99% stenosis in the LAD and 90% stenosis in the diagonal branch of the LAD. She underwent drug-eluting stent placement to the LAD and PTCA alone of the diagonal branch. Echocardiogram on 11/17/2020 showed an estimated ejection fraction of 35% with diastolic dysfunction. There were no wall motion abnormalities in the apex, anterior wall and distal septum. She was placed on Brilinta, ASA, beta jannet, statin and an FELIZ. She was seen by cardiac rehab prior to DC to TCU on 11/19/20. She was quite anxious and she was started on citalopram by Dr. Morin. She continued to be anxious and she was started on Buspar. Recovery in TCU was unremarkable and she was discharged home on 12/05/20. She will follow up with Dr. Morin, Dr. Topete and cardiac rehab. Lab 1 day prior to discharge showed a stable hemoglobin of 11.4 and normal white blood cell count and platelet count. BMP was significant for a BUN of 16 with a stable creatinine at 0.66. The BUN/creatinine ratio was 24.1. Her oral intake has been poor. Physical Exam Const alert, oriented x3 and no apparent distress Constitutional Narrative: sitting in the recliner at the bedside. Eyes PERRL and EOMs intact bilaterally Resp clear to auscultation bilaterally Cardio regular rate, regular rhythm and no gallops Jugular Venous Distention: Negative for JVD GI normal to inspection, nondistended, normoactive bowel sounds Extremity normal capillary refill, no calf tenderness and no pedal edema Skin General Skin Exam: no breakdown Rashes: no rashes Neuro oriented x3, CN's II-XII intact bilaterally, moves all extremities and no focal motor deficits Psych mental status grossly normal, thought process normal, cooperative and affect normal Medical Records Data Medical Nutrition Assessment Dietitian: Nutrition Therapy Diagnosis Start: 11/20/20 12:27 Freq: Status: Active Protocol: Document 12/01/20 17:40 YEMI (Rec: 12/01/20 17:40 [facility] [id number]) Nutrition Malnutrition Evidence of Malnutrition Exists No Intake Problem Inadequate Oral Intake Etiology related to recent STEMI Signs/Symptoms as evidenced by res report of decreased appetite x 2-3 days and feeling overwhelmed with amount of food served Status Resolved Problem Recommendation Dietitian Recommendations/Changes Will continue Cardiac diet w/ smaller portions per res request. Monitor need for oral nutritional supplements if po intake fails Weight / BMI Weight Weight: 193 lb Body Mass Index (BMI) 37.8 ABG / Lab / Microbiology Data Result Diagrams: 12/04/20 08:05 12/04/20 08:05 Microbiology: Microbiology 11/20/20 11:34 Mucosa - Nose SARS-CoV-2 Antigen (Rapid) - Final D/C Instructions Discharge Diet: - (LOW salt/Low fat diet.) May resume sexual activity in: 10-14 days Weight Bearing Status: Full weight bearing Call your doctor if your incision/area has: Increased Pain/ Swelling, Increased Redness and Foul Smelling Discharge Call your doctor if you observe: Fever of 101 or Higher, Shortness of breath, Dizziness, Fainting spells, Swelling in the ankles, Chest pain, Increased palpitations (irregular heartbeat) and Calf discomfort Pending Tests Upon Discharge: none Please Follow Up With: Gianfranco Topete MD When: 2 weeks Meaningful Use Info Meaningful Use Diagnoses (Choose all that apply): None applicable Discharge Plan Admission Admit Date/Time: 11/19/20 17:05 Primary Reason for Your Visit: debility due to STEMI/cardiac arrest/ischemic cardiomyopathy Attending Provider: Aelxi Morin Chi Primary Care Provider: Alexi Morin Chi Instructions Patient Instructions: Depression Affects Your Mind ..., Depression: Tips to Help Yourself, CAD, Cholesterol Lifestyle Changes, Cardiac Rehab Getting Started, Heart Attack Meds, ED Chest Pain, Noncardiac Additional Instructions / Restrictions: 1. Get yourself a good scale and weigh yourself every morning without clothes after urinating and keep a record. Your heart has been damaged by the heart attack. Normally when a heart squeezes it wheezes 55 to 65% of the blood out of the heart. This is called the ejection fraction. Your ejection fraction is 35% which is moderately impaired. When this happens you tend to retain fluid. One of the best ways to determine if you are retaining fluid is to monitor your weight daily and if the weight goes up more than 5 pounds in 1 week you should call your lawn mower. 2. You have stents in your heart now to keep the coronary arteries open. The stents can become clogged if the medications are not taken appropriately. Platelets are a component of your blood that help clot your blood if you get a cut. Platelets will clumped together and dam the hole. Soemtimes the platelets will clump together within a blood vessel and create a clot that can get stuck in one of the coronary arteries. For the first year after stents have been placed you will need to take 2 antiplatelet drugs. You will be taking Aspirin and Brilinta. It is very important not to miss these drugs. 3. You will need to go to cardiac rehab after you are discharged from the hospital. They will monitor your heart and BP while gradually increasing your activity to make sure increased exertion does not cause a problem. 4. I have given you a prescription for Nitroglycerin (NTG). You should keep this with you at all times, in case you get chest pain. If you get chest pain the first thing to do is sit down and put one under your tongue to melt. Then you wait 5 minutes. If the pain is still there after [address] another tab under your tongue and wait 5 minutes and if the pain is still present place a third under your tongue and call the EMT squad. Do NOT drive yourself to the ER or have a friend drive you. Call the squad. The reason you must sit down is NTG can make you lightheaded and drop your BP and you do not want to fall down. 5. Dr. Morin placed you on a medication called Celexa (Citalopram). This medication helps to control anxiety and depression. This is normal after a heart attack and cardiac arrest. It is scary and anxiety provoking. The Celexa can take up to 3-4 weeks to have a good effect on controlling anxiety. In the interim I added a drug called Buspar which is a non-addictive medication to control anxiety. You will take it twice a day. 6. The clogged arteries in your heart have been opened up. If you exercise, eat right, take your medications as prescribed and follow up with your doctor regularly you should be fine. Discharge Orders/Prescriptions Prescriptions: New buspirone 5 mg Tablet 5 mg PO BID Qty: 60 RF: 0 loperamide 2 mg Capsule 2 mg PO Q2H PRN PRN (Reason: Diarrhea) Qty: 0 RF: 0 citalopram 10 mg Tablet 10 mg PO DAILY Qty: 30 RF: 0 lidocaine 5 % Adhesive Patch,Medicated 1 patch topical DAILY Qty: 14 RF: 0 Remove Patch 0 patch topical DAILY@2200 Qty: 0 RF: 0 Continued cholecalciferol (vitamin D3) 1,000 UNIT tablet 25 mcg PO DAILY RF: 0 ondansetron HCl 8 MG tablet 8 mg PO Q8H PRN PRN (Reason: Nausea) Qty: 21 RF: 0 acetaminophen [Tylenol] 325 mg Tablet 650 mg PO Q4H PRN PRN (Reason: Fever, pain -01/30) Qty: 1 RF: 0 famotidine 20 MG tablet 20 mg PO DAILY RF: 0 aspirin 81 mg tablet,chewable 81 mg PO BREAKFAST RF: 0 losartan 50 mg tablet 50 mg PO DAILY Qty: 30 RF: 0 atorvastatin 40 mg tablet 40 mg PO QHS Qty: 30 RF: 0 citalopram 10 mg Tablet 10 mg PO DAILY Qty: 30 RF: 0 nitroglycerin 0.4 mg Tablet, Sublingual 0.4 mg sublingual Q5M PRN (Reason: Cardiac/Chest Pain) Qty: 1 RF: 0 metoprolol succinate 25 mg tablet extended release 24 hr 25 mg PO DAILY Qty: 30 RF: 0 Brilinta 90 mg Tablet 90 mg PO BID Qty: 60 RF: 0 Discontinued sennosides-docusate sodium [Stool Softener-Stimulant Laxat] 8.6-50 mg Tablet 2 tab PO BID PRN PRN (Reason: Constipation) Qty: 0 RF: 0 sennosides-docusate sodium 1 TABLET tablet 2 tablet PO BID RF: 0 tramadol 50 mg Tablet 50 mg PO Q6H PRN (Reason: Pain) RF: 0 lorazepam [Ativan] 0.5 mg Tablet 0.5 mg PO Q4H PRN PRN (Reason: Anxiety) RF: 0 Referrals / Follow Up: Alexi Morin Chi, MD [Primary Care Provider] - Disposition Disposition (needs filled in before D/C Order can be placed): Home, Self Care Charges/Coding Visit Charges Inpatient E&M: 30600 SNF Disch >30 Min
== END 2020-12-05 11:15 | disposition home or self-care (01) | DRG 282 ==
PROVIDERS: Admitting Provider Family Medicine Geriatric Medicine; PCP Family Medicine Geriatric Medicine; Visit Provider Family Medicine Geriatric Medicine
DX: I21.3 ST elevation (STEMI) myocardial infarction of unspecified site (principal); I25.10 Atherosclerotic heart disease of native coronary artery without angina pectoris; K21.9 Gastro-esophageal reflux disease without esophagitis; M06.9 Rheumatoid arthritis, unspecified; M79.7 Fibromyalgia; E66.9 Obesity, unspecified; G62.9 Polyneuropathy, unspecified; M17.10 Unilateral primary osteoarthritis, unspecified knee; I10 Essential (primary) hypertension; E78.5 Hyperlipidemia, unspecified; F32.9 Major depressive disorder, single episode, unspecified; E55.9 Vitamin D deficiency, unspecified; Z86.74 Personal history of sudden cardiac arrest; Z79.899 Other long term (current) drug therapy; Z79.82 Long term (current) use of aspirin; Z68.36 Body mass index [BMI] 36.0-36.9, adult; F41.9 Anxiety disorder, unspecified
CPT/HCPCS: 36415; 74018; 80048; 85025; 87426; 93005; 97110; 97116; 97163; 97166; 97530; 97535; 97802; A4216

== ENCOUNTER 2020-11-25 03:45 | Emergency (ER) | payer MEDICARE, SELFPAY ==
[2020-11-25 03:46] VITALS: BP 154/72; PULSE 68; RESP 25; TEMP 36.2; BMI 38.6
--- NOTE | 2020-11-25 04:03 | RAD_ITS ---
STUDY: X-RAY CHEST REASON FOR EXAM: Female, 75 years old. Chest pain TECHNIQUE: Single AP portable view of the chest. COMPARISON: November 17, 2020 chest x-ray FINDINGS: The lungs are clear and expanded. There is no demonstrated pleural abnormality. There is mild cardiac enlargement. Normal mediastinum and sung. Normal visualized pulmonary arteries. There is atherosclerotic tortuosity of the aortic arch and descending thoracic aorta. There are diffuse degenerative changes of the visualized thoracic spine. There is a right sided orthopedic tack within the humeral head. There is no demonstrated abnormality of the visualized soft tissue structures of the upper abdomen. RAD/Chest 1 View (Portable) IMPRESSION: No demonstrated acute cardiopulmonary process. Electronically Signed: Brittney Gutiérrez MD at 6:18 EDT Tel , Service support ,
--- NOTE | 2020-11-25 04:08 | EDS_ITS ---
HPI History of Present Illness Chief Complaint: Chest Pain Informant: patient and SNF Narrative Narrative: 75-year-old female presents to the emergency room with chest pain. Patient was a V. fib cardiac arrest with STEMI at the end of the last month. After the cath which she received a stent to the LAD she was continuing to have chest pain. It was felt that it was musculoskeletal in nature from the CPR. Patient states that the pain is never really gone away and she was told she had 2 broken ribs. She states that today she is having pain up into her left shoulder and up into her neck. It is very similar to the pain she has been experiencing but seem to got worse today which coincide to a dry cough that she has started having. She notes the pain is worse with movement. EKG performed in the TCU was reviewed by myself which shows a normal sinus rhythm at a rate of 60. It appears grossly unchanged from an EKG from November 21. [facility] Medical History Arthritis Atherosclerosis of coronary artery of [place] heart without angina pectoris Back pain Bone fracture Breast lump in female Cataracts, bilateral Chronic venous insufficiency of lower extremity Contusion of right lower leg, sequela Fibromyalgia Generalized osteoarthritis GERD (gastroesophageal reflux disease) Hemorrhoids History of back problems Incontinence Left breast lump Myocardial infarct Neuropathy of right lower extremity Obesity Rheumatoid arthritis Shoulder pain UTI (urinary tract infection) Vitamin deficiency Home Medications cholecalciferol (vitamin D3) 25 mcg PO DAILY 04/29/20 [History Last Taken 11/16/20 09:00 1000 units] ondansetron HCl 8 mg PO Q8H PRN PRN #21 tab 05/13/20 [Rx Last Taken Unknown] acetaminophen [Tylenol] 650 mg PO Q4H PRN PRN #1 tab 11/19/20 [Rx Last Taken Unknown] aspirin 81 mg PO BREAKFAST 11/19/20 [History Last Taken Unknown] atorvastatin 40 mg PO QHS 11/19/20 [History Last Taken Unknown] famotidine 20 mg PO DAILY 11/19/20 [History Last Taken Unknown] losartan 50 mg PO DAILY 11/19/20 [History Last Taken Unknown] metoprolol succinate 25 mg PO DAILY 11/19/20 [History Last Taken Unknown] nitroglycerin 0.4 mg SUBLINGUAL Q5M PRN #0 tab 11/19/20 [Rx Last Taken Unknown] sennosides-docusate sodium 2 tablet PO BID 11/19/20 [History Last Taken Unknown] sennosides-docusate sodium [Stool Softener-Stimulant Laxat] 2 tab PO BID PRN PRN #0 tab 11/19/20 [Rx Last Taken Unknown] ticagrelor [Brilinta] 90 mg PO BID #0 tab 11/19/20 [Rx Last Taken Unknown] citalopram 10 mg PO DAILY 11/25/20 [History Last Taken Unknown] lorazepam [Ativan] 0.5 mg PO Q4H PRN PRN 11/25/20 [History Last Taken Unknown] tramadol 50 mg PO Q6H PRN 11/25/20 [History Last Taken Unknown] Allergy/AdvReac Type Severity Reaction Status Date / Time bee pollen Allergy Anaphylaxis Verified 11/25/20 03:50 latex Allergy Swelling Verified 11/25/20 03:50 morphine Allergy Other Verified 11/25/20 03:50 Penicillins Allergy Hives Verified 11/25/20 03:50 hydrocodone bitartrate AdvReac Abd Verified 11/25/20 03:50 [From Vicodin] cramps/diarrhea Family History Father Diabetes Heart disease Hypertension CVA (cerebral vascular accident) Parkinson disease Mother Breast cancer Hypertension Grandmother Cancer pancreatic cancer Ovarian cancer Son Anesthesia complication Brother Asthma Arthritis Diabetes Respiratory disease Grandfather Lung cancer CVA (cerebral vascular accident) Surgical History Hematoma history bilateral breast biopsies History of bilateral knee replacement History of cataract surgery History of coronary artery stent placement (11/16/20) History of hysterectomy History of laparoscopic cholecystectomy History of left breast biopsy (~11/2017) History of repair of right rotator cuff History of tonsillectomy and adenoidectomy Hx of appendectomy Social History household members: spouse Smoking Status: Never smoker alcohol intake: never substance use type: does not use additional social history: DOES USE ASPIRIN DOES NOT USE IBUPROFEN ROS ROS ED Constitutional Constitutional ED: Denies chills or weight loss Eyes Eyes: Denies change in vision or diplopia ENT ENT ED: Denies ear pain, rhinorrhea or sore throat Cardiovascular Cardiovascular: Reports chest pain; Denies orthopnea, palpitations or racing heartbeat Respiratory/Chest Respiratory/Chest: Denies cough, dyspnea or orthopnea Gastrointestinal Gastrointestinal: Denies abdominal pain, diarrhea, nausea or vomiting Genitourinary Genitourinary ED: Denies dysuria, hematuria or urinary frequency Musculoskeletal Musculoskeletal: Denies arthralgias or myalgias Integumentary Denies abscess or rash Neurologic Neurologic: Denies headache(s) or weakness Psychiatric Psychiatric: Denies anxiety, depression, suicidal ideation or suicidal thoughts Endocrine Endocrinology: Denies polydipsia, polyphagia or polyuria Allergic/Immunologic Allergic/Immunologic ED: Denies mouth swelling, tongue swelling or urticaria EXAM Physical Exam Const Vital Signs: 11/25/20 03:46 Temperature 97.1 F L Temperature Source Oral Pulse Rate 68 Respiratory Rate 25 H Blood Pressure 154/72 H Blood Pressure Mean 99 Oxygen Delivery Method Room Air Positive well nourished and well developed General Appearance ED: well developed HEENT Reports normocephalic, head/scalp atraumatic and moist mucous membranes Eyes PERRL and EOMs intact bilaterally Neck no lymphadenopathy, supple and no JVD Chest Wall Chest Narrative: Midsternal tenderness to palpation. Having the patient adjusted the bed makes her pain worse. Resp normal respiratory effort and clear to auscultation bilaterally Cardio regular rate, regular rhythm and no murmurs GI normal to inspection, nondistended, normoactive bowel sounds and non-tender Palpation: soft Back/Spine no CVA tenderness and normal ROM Extremity normal to inspection General Extremety ED: Negative for edema General Extremity: Negative for edema Neuro oriented x3 and CN's II-XII intact bilaterally Sensorium / Orientation: alert Motor Exam: strength 5/5 throughout Psych mental status grossly normal Mood & Affect: Negative for depressed or tearful Skin no rashes or lesions noted and no wounds Heart Score History: Slightly/Non-Suspicious ECG: Normal Age: >/= 65 years Risk Factors: >/= 3 Risk Factors or History of CAD Score: 4 MDM MDM MDM Narrative Medical decision making narrative: My impression of the chest x-ray is no acute process. Specifically no pneumothorax or infiltrate noted. Patient's white count is 7.8. Covid swab negative. Her troponin is 38. She tells me that this is ongoing pain since that time of CPR. She states it acutely got worse today and is up into her neck. It is worse with movement and palpation. Patient received a dose of Valium as well as oxycodone. She states she is more relaxed and her pain is better. At this point as this is been ongoing pain I do not think we needed a second troponin. I do not think that this is pulmonary embolism. I do not believe this to be dissection. I think the patient can be discharged back to the TCU. Lab Data Attestation: I reviewed the patient's lab results. Labs: Laboratory Results - last 24 hr 11/25/20 11/25/20 03:54 03:54 WBC 7.8 RBC 4.48 Hgb 11.9 L Hct 38.1 MCV 85.0 MCH 26.6 L MCHC 31.2 L RDW Std Deviation 44.8 H RDW Coeff of April 14.5 Plt Count 396 MPV 9.7 Immature Gran % (Auto) 0.800 Neut % (Auto) 56.1 Lymph % (Auto) 29.8 Hand % (Auto) 8.7 Eos % (Auto) 4.0 Baso % (Auto) 0.6 Absolute Neuts (auto) 4.4 Absolute Lymphs (auto) 2.32 Nucleated RBC % 0 Sodium 140 Potassium 3.6 Chloride 105 Carbon Dioxide 29.0 Anion Gap 6 BUN 11 Creatinine 0.77 Estim Creat Clear Calc 37.81 Est GFR (MDRD) Af Amer 94 Est GFR (MDRD) Non-Af 78 BUN/Creatinine Ratio 14.2 Glucose 83 Calcium 9.1 Troponin I High Sens 38.0 Discharge Plan Triage Chief Complaint: Chest Pain ED Provider: Jung Fontaine Dx/Rx/DC Orders Clinical Impression: Musculoskeletal chest pain, Atherosclerosis of coronary artery of [place] heart without angina pectoris Instructions: ED Chest Pain, Noncardiac Prescriptions: No Action cholecalciferol (vitamin D3) 1,000 UNIT tablet 25 mcg PO DAILY RF: 0 ondansetron HCl 8 MG tablet 8 mg PO Q8H PRN PRN (Reason: Nausea) Qty: 21 RF: 0 acetaminophen [Tylenol] 325 mg Tablet 650 mg PO Q4H PRN PRN (Reason: Fever, pain 1-10/10) Qty: 1 RF: 0 sennosides-docusate sodium [Stool Softener-Stimulant Laxat] 8.6-50 mg Tablet 2 tab PO BID PRN PRN (Reason: Constipation) Qty: 0 RF: 0 nitroglycerin 0.4 mg Tablet, Sublingual 0.4 mg sublingual Q5M PRN (Reason: Cardiac/Chest Pain) Qty: 0 RF: 0 Brilinta 90 mg Tablet 90 mg PO BID Qty: 0 RF: 0 losartan 50 mg tablet 50 mg PO DAILY RF: 0 atorvastatin 40 mg tablet 40 mg PO QHS RF: 0 sennosides-docusate sodium 1 TABLET tablet 2 tablet PO BID RF: 0 famotidine 20 MG tablet 20 mg PO DAILY RF: 0 aspirin 81 mg tablet,chewable 81 mg PO BREAKFAST RF: 0 metoprolol succinate 25 mg tablet extended release 24 hr 25 mg PO DAILY RF: 0 citalopram 10 mg Tablet 10 mg PO DAILY RF: 0 tramadol 50 mg Tablet 50 mg PO Q6H PRN (Reason: Pain) RF: 0 lorazepam [Ativan] 0.5 mg Tablet 0.5 mg PO Q4H PRN PRN (Reason: Anxiety) RF: 0 Primary Care Provider: Alexi Morin Chi Referrals: Alexi Morin Chi, MD [Primary Care Provider] - Disposition Disposition: Assisted Living Discharge Location: [facility] Transitional Care Unit
[2020-11-25] MEDS: diazePAM 5 MG Tablet PO (04:10)
[2020-11-25] MEDS: oxyCODONE 5 MG Tablet PO (04:10)
[2020-11-25 04:35] LABS: Absolute Lymphocyte Count 2.32 X10^3/uL (0.83-4.51); Absolute Neutrophil Count 4.4 X10^3/uL (2.0-7.7); Basophil# 0.05 X10^3/uL; Basophil% 0.6 % (0-1); Eosinophil# 0.31 X10^3/uL; Hematocrit 38.1 % (37-47); Hemoglobin 11.9 g/dL (12.0-15.0); Lymphocyte # 2.32 X10^3/ul (0.83-4.51); Lymphocyte % 29.8 % (19-41); Mean Corp Hgb Conc 31.2 g/dL (32-36); Mean Corpuscular Hgb 26.6 pg (27.0-32.0); Mean Platelet Vol. 9.7 fl (6.2-12.0); Monocyte# 0.68 X10^3/uL; Monocyte% 8.7 % (0-10); NRBC Flagged by Analyzer 0 % (0-5); Neutrophil # 4.36 X10^3/uL (2.7-7.7); Neutrophil % 56.1 % (47-70); Platelet Count 396 K/mm3 (150-450); RBC Distribution Width CV 14.5 % (11.6-14.6); RBC Distribution Width SD 44.8 fl (35.1-43.9); Red Blood Count 4.48 M/mm3 (4.2-5.4); White Blood Count 7.8 K/mm3 (4.4-11.0)
[2020-11-25 04:51] LABS: Anion Gap 6 (5-15); BUN 11 mg/dL (7-18); BUN/Creat Ratio 14.2 RATIO (10-20); Calcium,Total 9.1 mg/dL (8.5-10.1); Chloride 105 mmol/L (98-107); Creatinine, Serum 0.77 mg/dL (0.55-1.02); EST Glomerular Filtration Rate 78 mL/min (>60); Est Glom Filt Rate - Afr Amer 94 mL/min (>60); Estimated Creatinine Clearance 37.81 ml/min; Glucose 83 mg/dL (74-106); Potassium 3.6 mmol/L (3.5-5.1); Sodium Level 140 mmol/L (136-145)
[2020-11-25 05:13] VITALS: BP 146/81; PULSE 78; RESP 18; O2SAT 96
== END 2020-11-25 05:15 | disposition home or self-care (01) ==
PROVIDERS: Emergency Provider Emergency Medicine; PCP Family Medicine Geriatric Medicine
DX: R07.89 Other chest pain (principal); I25.10 Atherosclerotic heart disease of native coronary artery without angina pectoris; I25.2 Old myocardial infarction; I87.2 Venous insufficiency (chronic) (peripheral); M06.9 Rheumatoid arthritis, unspecified; Z79.82 Long term (current) use of aspirin; Z79.899 Other long term (current) drug therapy; Z86.74 Personal history of sudden cardiac arrest
CPT/HCPCS: 71045; 80048; 84484; 85025; 87426; 99283; A4216

== ENCOUNTER → 2020-12-09 13:30 | Outpatient (CLI) | payer MEDICARE, SELFPAY ==
[2020-12-09 17:18] LABS: Absolute Lymphocyte Count 1.83 X10^3/uL (0.83-4.51); Absolute Neutrophil Count 3.9 X10^3/uL (2.0-7.7); Basophil# 0.07 X10^3/uL; Eosinophil# 0.33 X10^3/uL; Eosinophils% 4.9 % (0-5); Hematocrit 37.5 % (37-47); Hemoglobin 11.6 g/dL (12.0-15.0); Lymphocyte # 1.83 X10^3/ul (0.83-4.51); Lymphocyte % 27.1 % (19-41); Mean Corp Hgb Conc 30.9 g/dL (32-36); Mean Corpuscular Hgb 26.6 pg (27.0-32.0); Mean Platelet Vol. 10.4 fl (6.2-12.0); Monocyte# 0.56 X10^3/uL; Monocyte% 8.3 % (0-10); NRBC Flagged by Analyzer 0 % (0-5); Neutrophil # 3.94 X10^3/uL (2.7-7.7); Neutrophil % 58.3 % (47-70); Platelet Count 340 K/mm3 (150-450); RBC Distribution Width CV 14.6 % (11.6-14.6); RBC Distribution Width SD 45.7 fl (35.1-43.9); Red Blood Count 4.36 M/mm3 (4.2-5.4); White Blood Count 6.8 K/mm3 (4.4-11.0)
[2020-12-09 17:34] LABS: Vitamin D,25 Hydroxy 37.7 ng/mL
[2020-12-09 17:55] LABS: ALB/GLOB Ratio 0.7 RATIO (0.9-2.4); AST(SGOT) 22 U/L (15-37); Alanine Aminotransfer ALT/SGPT 23 U/L (13-56); Albumin, Serum 3.2 g/dL (3.2-5.0); Alkaline Phosphatase 192 U/L (45-117); Anion Gap 6 (5-15); BUN 16 mg/dL (7-18); BUN/Creat Ratio 19.7 RATIO (10-20); Calcium,Total 8.9 mg/dL (8.5-10.1); Chloride 107 mmol/L (98-107); Creatinine, Serum 0.81 mg/dL (0.55-1.02); EST Glomerular Filtration Rate 73 mL/min (>60); Est Glom Filt Rate - Afr Amer 89 mL/min (>60); Globulin 4.3 g/dL (2.2-4.2); Glucose 104 mg/dL (74-106); Potassium 4.1 mmol/L (3.5-5.1); Protein, Total 7.5 g/dL (6.4-8.2); Sodium Level 139 mmol/L (136-145); Thyroid Stim Hormone (TSH) 0.55 uIU/mL (0.358-3.74)
== END ==
PROVIDERS: PCP Family Medicine Geriatric Medicine; Visit Provider Family Medicine Geriatric Medicine
DX: I10 Essential (primary) hypertension (principal); E55.9 Vitamin D deficiency, unspecified
CPT/HCPCS: 36415; 80053; 82306; 84443; 85025

== ENCOUNTER → 2020-12-14 09:51 | Outpatient (CLI) | payer MEDICARE, SELFPAY ==
[2020-11-25 03:46] VITALS: BMI 38.6
--- NOTE | 2020-12-14 09:57 | PCM.CR.ITP ---
Diagnosis - General Information Admitting Diagnosis: STEMI-CARDIAC ARREST, PCI W/CORONARY STENT PLACEMENT. Personal Learning Style:: Audio/Visual, Written Barriers to Learning: Vision Impairment Stage of change r/t lifestyle modifications:: Action Gave educational material for:: Treating Heart Disease, Emotions & Heart Disease, Stress Management & Relaxation, Sleep Disorders & Heart Disease, How The Heart Works, What it means to have Heart Disease, How Coronary Artery Disease is Diagnosed, Heart Procedures, What Heart Medications Do, Risk Factors & Modifications, Living an Active Life, Nutrition - Education/Goals Individual Counseling: Initial Assessment: Abnormal Cholesterol Levels, High Blood Pressure, Overweight/Obesity Cardiac Rehabilitation Goals: 1. Maintain the individual as the primary focus of care. 2. To improve the patient's quality of life. 3. Identification of cardiac risk factors and provide cardiac risk factor management. 4. Enhance the psychosocial status of the patient. 5. Reconditioning enough to allow the patient to resume customary activities. 6. Control symptoms of cardiac disease Personal Goals: Initial Assessment: Improve management of stress and emotions, Improve energy level, Participate in home exercise program, Improve knowledge of cardiac disease, Improve muscle strength and endurance, Improve diet and eating habits (eat healthier), Control risk factors (learn risk factor modification) Scale for measuring improvement of personal goals: Enter appropriate number in Comments. 2 = Unchanged. 3 = Slightly Better. 4 = Moderate Improvement. 5 = Met my Goal - Diagnosis & Disease Process Outcomes/Goals: Pt IDs own risk factors & lifestyle modifications by Session 10, Verbalizes symptoms of angina & response by session 3., Pt independently manages Plan/Interventions: Assist Pt to ID & engage in lifestyle modification to reduce CVD risk, Instruct on individual risk factors, Review symptoms of angina & emergency actions, Review secondary diagnosis & identify educational needs. - Safety Referral to Physical Therapy: No Referral to [facility] Case Management: No Fall Risk Assessed:: Yes Assistive Devices:: Walker, Wheelchair Exercise - Initial Assessment - Visit Date of Eval: 12/14/20 Session #:: 0 - PRE-CARDIAC REHABILITATION EVALUATION Mets: Pre-: >5 METS for 30 minutes by discharge - Physician Prescribed Exercise Modalities: Biodyne - REPLACED WITH LATERAL MOTOR EQUIPMENT CAPTAIN, NuStep, SciFit Frequency: 3x/week for 12 weeks [36 sessions] Intensity: 60-80% of age predicted maximum heart rate reserve Current METSs:: 2.0 Target Heart Rate:: 83-107 Resting Blood Pressure: 157/92 EKG Type: NORMAL SINUS RHYTHM - Outcomes & Goals Goals:: Verbalizes understanding of THR, RPE & goal METS by session 6, Documents in home exercise log/reports 30 min aerobic 5 day/wk by DC, Demonstrates accurate pulse taking by DC - Intervention & Plan Exercise Program Goals: Instruct on personal THR & RPE, Instruct on MET level & personal MET goal, Show patient to take own pulse /validate performance until accurate, Instruct on home exercise - Physical Activity Home Exercise Physical Activity - Home Exercise: Safe Exercise, Warm-up, Self-monitoring, Cool-Down, Home Exercise > 30 min Daily, Sitting Time <3 hours/daily - Outcomes & Goals Outcomes/Goals: Demonstrates correct Warm-up/exercise Cool-Down (S3) if = 2.5 METs, Verbalizes symptoms of exercise intolerance by Session 3 (S3), Demonstrate safe equipment use (S3) & follows exercise prescrition (6) - Intervention & Plan Plan/Intervention: Instruct warm-up & cool-down if exercising at > 2 METs, Instruct on symptoms of exercise intolerance & actions to take, Instruct & monitor on saf, Assess intial functional capacity & safety risk Nutrition - Initial Assessment - Program Goals Nutrition Program Goals: LDL <100 optimal. 100 - 129 Near optimal. 130 - 159 Borderline High. 160 - 189 High. Total Cholesterol <200 desirable. 200 - 239 Borderline High. >/= 240 High. HDL < 40 Low >/=60 High. Triglycerides <150 desirable. <199 optimal. VlDL 5 - 40. HgbA1C <7%. BMI <25 Patient has diagnosis of Hyperlipidemia (ICD E78)?: Yes - Visit Date of Assessment:: 12/14/20 Session #:: 0 - PRE-CARDIAC REHAB EVALUATION - Cholesterol/Lipids Triglycerides (mg/dL): 95 Total Cholesterol (mg/dL): 152 LDL Cholesterol (mg/dL): 97 HDL Cholesterol (mg/dL): 36 Determine presence & major risk factors that modify LDL goal: Hypertension or hypertensive medication, Family history of premature CHD in Male < 55 years: female <65 yearsFa, Age men > 45 years; women >/= 55 years Outcomes/Goals: Pt IDs own risk factors & lifestyle modifications by Session 10, Verbalizes symptoms of angina & response by session 3., Pt independently manages Intervention/Plan: Instruct on personal lipid levels & lipid goals/NCEP guidelines, Instruct on cholesterol - Diabetes (Other Core Measures) Diabetes Type: Not Applicable - Weight Mgt (Other Care) Not Applicable: No Height: 5 ft Weight:: 202 lb BMI: 39.4 Diagnosis Overweight/Obesity BMI> 30% ICD-10 E66: Yes Diagnosis High BMI/Morbid Obesity BMI> 35% ICD-10 Z68: Yes Outcomes/Goals: Pt sets, maintains & shows weight loss goal & trend during rehab Intervention/Plan: Instruct on ideal BMI & set weight loss goal w/patient, Assist pt to ID & incorporate diet changes for weight loss by S9, Refer to Structured Weight Loss program as appropriate, Encourage goal of using 250-300dcal per session for weight loss - Healthy Eating Habits Will attend diet classes:: Yes Outcomes/Goals:: Consume diet rich in vegs,fruits,whole grain/high fiber,fish,lean meat, Limit sat/trans fats,cholesterol & added salts & sugars Intervention/Plan:: Assess current eating habits - Education Gave educational materials for:: Healthy eating Nutrition - 30-Day Assessment Nutrition - 60-Day Assessment Nutrition - 90-Day Assessment Nutrition - Final Assessment Medical - Initial Assessment - Visit Date of Eval: 12/14/20 Session #:: 0 - PRE-CARDIAC REHAB EVALUATION - Medication Compliance Preventative Medication(s):: Aspirin, Ticagrelor/P2Y12 inhibitor, Statin/lipid, Beta jannet H/O mental health issues: depression, anxiety, or addiction?: Yes Doesn?t believe in the benefits of treatment?: No Believes medications are unnecessary or harmful?: No Has a concern about medication side effects?: No Expresses concern over the cost of medications?: No Outcomes/Goals: Verbalizes medications,desired effect & common side effects @ DC, Pt self-reports following medication regimen, Keeps card in wallet w/medications listed by DC Interventions/plans: Instruct on medication effects & side effects, Review medication list w/patient every two weeks, Instruct importance of taking meds as ordered & assist problem solving - Tobacco Use Tobacco Use: Non-smoker - Hypertension Hypertension Diagnosis:: Hypertension ICD-10 I10 Resting Blood Pressure:: 157/92 [place] [employer] Hypertension Guidelines: [place] [employer] Hypertension Guidelines. Normal BP Less than 120/80. Elevated BP 120/80. Hypertension Stage 1: BP 130-139/80-89. Hypertesnion Stage 2: BP 140 or higher/90 or higher. Hypertension Crisis: BP higher than 180/120 Outcomes/Goals: Able to verbalize/achieve optimal blood pressure <130/80, Incorporates diet changes & exercise for blood pressure control by DC Interventions/plan: Instruct on optimal blood pressure, hypertension & medications, Instruct on effects of sodium, alcohol, stress, exercise &hypertension - Tobacco Cessation Referral Smoking Cessation Referral:: No Individual Education/Counseling:: No Education Schedule Given:: Yes Medical- 30-Day Assessment Medical- 60-Day Assessment Medical- 90-Day Assessment Medical - Final Assessment Psychosocial - Initial Assess - VIsit Date of Eval: 12/14/20 Session #:: 0 - PRE-CARDIAC REHAB EVALUATION Not Applicable: No History of previous Mental disease:: Yes History of Emotional Disorders: Anxious, Depression - Psychosocial Test Tool Used:: [email or web address] QOL Cardiac, PHQ-9 Questionnaire phq-9 Severity: Severity. 1-4 Minimal Depression. 5-9 Mild Depression. 10-14 Moderate Depression. 15-19 Moderately Sever Depression. 20-27 Severe Depression. Rule: See PHQ-9 Score: 9 - PATIENT COULD BENEFIT FROM [facility] IN DEALING WITH PTSD POST CARDIAC ARREST EXPERIENCE - Referral to Behavioral Health PS - Interventions: Yes Referral to Behavioral Health if PHQ-9 score >9: - MILD TO MODERATE DEPRESSION, Yes Referral to Physician if PHQ-9 if score is 5-9: - MILD TO MODERATE DEPRESSION - Outcomes/Goals: See list Psychosocial Outcomes/Goals:: ID's personal stressors & 2 strategies to manage stress by discharge - Intervention/Plan: See List Interventions/Plan:: Assess stressors,coping strategies & signs of derpression on admission, Instruct/assist pt to develop coping & personal stress Mgt strategies, Instruct patient to recognize signs & symptoms of depression, Instruct patient to recog Psychosocial - 30-Day Assess Psychosocial - 60-Day Assess Psychosocial - 90-Day Assess Psychosocial - Final Assessmen Patient Health Questionnaire Initial Assessment 1. Little interest or pleasure in doing things: Several days 2. Feeling down, depressed, or hopeless: Several days 3. Trouble falling or staying asleep, or sleeping too much: More than half the days 4. Feeling tired or having little energy: Several days 5. Poor appetite or overeating: Several days 6. Feeling bad about yourself -- or that you are a failure or have let yourself or your family down: Several days 7. Trouble concentrating on things, such as reading the newspaper or watching television: More than half the days 8. Moving or speaking so slowly that other people could have noticed. Or the opposite - being so fidgety or restless that you have been moving around a lot more than usual: Not at all 9. Thoughts that you would be better off , or of hurting yourself in some way: Not at all How difficult have these problems made it for you to do your work, take care of things at home, or get along with other people?: Somewhat difficult Total Score: 9 MELANIE-Q SV Test - Statements CAD is a disease of the arteries in the heart: False Examples of risk factors for heart disease: True Angina is chest pain or discomfort: True The benefits of resistance training include: True Eating more meat and dairy products: False Anti-platelet medications such as aspirin are important: True The only effective way to manage stress: False An exercise warm-up slowly increases heart rate: True Prepared, processed foods usually have high sodium: True Depression is common after a heart attack: True The statin medications lower cholesterol: True To control blood pressure, lower the amount of sodium: True If someone gets chest discomfort during walking: False Transfats are partially hydrogenated vegetable oils: I Don't Know Sleep apnea that is not treated increases the risk: False To control cholesterol, one should become a vegetarian: False Someone knows if he/she is exercising at the right level: True Diabetes cannot be prevented with exercise & health eating: True Stress is a large risk for heart attack: True A diet that can help lower blood pressure is rich in: True - Total Score Total Correct Responses: 18 Self-Efficacy Initial Assessment We would like to know how confident you are in doing certain activities. Please select your confidence level for:: Select your confidence level for the following using the scale 1-10 where 1 is not at all confident and 10 is totally confident. Your score is the average of all 6 responses. Fatigue: How confident are you that you can keep the fatigue caused by your disease from interfering with the things you want to do? Select Number: 3 Physical Discomfort or Pain: How confident are you that you can keep the physical discomfort or pain of your disease from interfering with the things you want to do? Select Number: 2 Emotional Distress: How confident are you that you can keep the emotional distress caused by your disease from interfering with the things you want to do? Select Number: 2 Other Symptoms or Health Problems: How confident are you that you can keep other symptoms or health problems from interfering with the things you want to do? Select Number: 2 Different Tasks and Activities: How confident are you that you can do the different tasks and activities needed to manage your health condition so as to reduce your need to see a doctor? Select Number: 4 Medication: How confident are you that you can do things other than just taking medication to reduce how much your illness affects your everyday life? Select Number: 5 Total Score:: 3 Nutrition Survey - Nutrition Survey Initial Have you lost >10 lbs over the past 2 months without trying?: No Are you following a special diet at home for diabetes, low fat, or low salt?: Yes Are you interested in meeting with a dietitian for help understanding your diet?: No Do you eat less than 3 meals a day?: No Do you eat fatty meats (sampson, sausage, ribs, etc), fried foods, desserts, large amounts of salad dressings, margarine, butter, or cheese most days?: Yes Do you have food allergies? [Enter types in comment field]: No Do you eat in restaurants more than 3 times a week?: No Do you season food with salt, seasoning salt, or garlic salt?: No Do you used canned, boxed, frozen meals, or soups, seasoning packets?: No Total Score:: 2
--- NOTE | 2020-12-14 09:58 | CR.HP_ITS ---
CR - History & Physical - General Arrival date:: 12/14/20 Arrival time:: 09:58 Date of Referral:: 11/17/20 - PT WAS ADMITTED TO TCU FOR REHAB THEREAPY Date of CR Evaluation:: 12/14/20 Referring Physician: DR. DELVALLE - History of Present Cardiac Event Onset Date: Enter Onset Date of cardiac illnesses in Comment field below Acute Myocardial Infarction within 12 months:: Yes - STEMI w/cardiac arrest 11/16/2020 PTCA or coronary stenting:: Yes - 11/16/2020 Type of Symptoms:: cardiac arrest STEMI transported by EMS to [facility] revived, emergent PCI intervention. Patient was then admitted to our TCU care unit post discharge for therapy prior to being discharged home on 12/05/2020. - Sleep Disorder Evaluation Hx of Sleep Apnea: No Do you snore loudly (louder than talking or can be heard through closed doors)?: Yes Do you often feel tired/ fatigued/ sleepy during daytime?: Yes Has anyone observed you stop breathing during sleep?: No History of Hypertension (for STOP score): Yes STOP Results: Positive - Medications Home Medications: Ambulatory Orders Medication Instructions Recorded cholecalciferol (vitamin D3) 25 mcg PO DAILY 04/29/20 ondansetron HCl 8 mg PO Q8H PRN PRN #21 tab 05/13/20 acetaminophen [Tylenol] 650 mg PO Q4H PRN PRN #1 tab 11/19/20 aspirin 81 mg PO BREAKFAST 11/19/20 famotidine 20 mg PO DAILY 11/19/20 Brilinta 90 mg PO BID #60 tab 12/05/20 Remove Patch 0 patch TOPICAL DAILY@2200 #0 12/05/20 atorvastatin 40 mg PO QHS #30 tab 12/05/20 buspirone 5 mg PO BID #60 tab 12/05/20 citalopram 10 mg PO DAILY #30 tab 12/05/20 citalopram 10 mg PO DAILY #30 tab 12/05/20 lidocaine 1 patch TOPICAL DAILY #14 ea 12/05/20 loperamide 2 mg PO Q2H PRN PRN #0 cap 12/05/20 losartan 50 mg PO DAILY #30 tab 12/05/20 metoprolol succinate 25 mg PO DAILY #30 tab 12/05/20 nitroglycerin 0.4 mg SUBLINGUAL Q5M PRN #1 bottle 12/05/20 - Allergies Allergies/Adverse Reactions: Allergies bee pollen Allergy (Verified 11/25/20 03:50) Anaphylaxis latex Allergy (Verified 11/25/20 03:50) Swelling morphine Allergy (Verified 11/25/20 03:50) Other hallucinations Penicillins Allergy (Verified 11/25/20 03:50) Hives hydrocodone bitartrate [From Vicodin] Adverse Reaction (Verified 11/25/20 03:50) Abd cramps/diarrhea Advanced Directives - Advanced Directives Power of Bartacker: Yes Living Will: Yes Advance Directives Information Provided: No Advance Directives on File: Yes DNR Order?:: No - MOLST See MOLST form: No Past Medical History - Covid-19 Screening Fever: No Unexplained muscle aches: No Current respiratory symptoms: No Upper respiratory infections symptoms: No Gastro-intestinal symptoms: Yes Oco-Nids-Yifjkf symptoms: No Has tested positive for COVID-19 in last 30 days: No Date of testin04/26/20 - Diagnosed with COVID-19 in April 2020, has not been vaccinated Has High Risk Exposures ID'd by Health dept/Inf Control team: No 65 years or older:: Yes Lives in Assisted Living facility:: No Has a chronic lung disease or moderate to severe asthma:: No Has a serious heart condition:: Yes Severely obese (Body Mass Index of 40 or higher):: Yes Diabetic:: No Has chronic kidney disease undergoing dialysis:: No Has liver disease:: No - Past Medical Illness Medical History: Past Medical History (Last Updated 12/05/20 @ 11:[address] Samantha Vidal, DO) Arthritis M19.90 Atherosclerosis of coronary artery of [place] heart without angina pectoris I25.10 S/P OTIS INSERTION Back pain M54.9 Bone fracture T14.8XXA Breast lump in female N63.0 Cardiac arrest I46.9 Cataracts, bilateral H26.9 Chronic venous insufficiency of lower extremity I87.2 Contusion of right lower leg, sequela S80.11XS painful hematoma scar right anterolateral leg Depression F32.9 Fibromyalgia Gastroesophageal reflux disease K21.9 Generalized osteoarthritis M15.9 GERD (gastroesophageal reflux disease) K21.9 Hemorrhoids K64.9 History of back problems HTN (hypertension) I10 Hyperlipidemia E78.5 Incontinence R32 Left breast lump N63.20 Myocardial infarct I21.9 Neuropathy of right lower extremity G57.91 Obesity E66.9 Osteoarthritis of knee M17.10 Rheumatoid arthritis M06.9 Shoulder pain M25.519 UTI (urinary tract infection) N39.0 Vitamin deficiency E56.9 - Past Surgical History Surgical History: Past Surgical History (Last Reviewed 11/25/20 @ 04:[address] Jung Fontaine DO) Hematoma T14.8XXA Surgical preparation right anterolateral leg with incision and drainage and evacuation and excisional debridement infected hematoma including necrotic skin (66.5 cm2) - 12/05/18 history bilateral breast biopsies History of bilateral knee replacement Z96.653 History of cataract surgery Z98.49 History of coronary artery stent placement Onset Date: 11/16/20 Z95.5 PCI of mLAD/D1 with Orsiro 3.0 x 22 mm OTIS to mLAD and PTCA to D1 11/16/20 History of hysterectomy Z90.710 History of laparoscopic cholecystectomy Z90.49 History of left breast biopsy Onset Date: ~11/2017 Z98.890 History of repair of right rotator cuff Z98.890 History of tonsillectomy and adenoidectomy Z98.890 Hx of appendectomy Z90.49 Surgical History: adenoidectomy, appendectomy, cataract, cholecystectomy - Laparoscopic., hysterectomy, total knee arthroplasty - Bilateral., tonsillectomy, - - Breast biopsies for benign cysts, cardiac catheterization, right rotator cuff repair. - Family History Summary Family History: Family History (Last Reviewed 11/25/20 @ 04:[address] Jung Fontaine DO) Father Diabetes Heart disease Hypertension CVA (cerebral vascular accident) Parkinson disease Mother Breast cancer Hypertension Grandmother Cancer pancreatic cancer Ovarian cancer Son Anesthesia complication Brother Asthma Arthritis Diabetes Respiratory disease Grandfather Lung cancer CVA (cerebral vascular accident) Social History - Smoking History Smoking Status: Never smoker - Alcohol Use Alcohol Usage: No - Substance Abuse Hx Substance Use: No - Occupation Occupation (List type of work in comments):: Retired - Hobbies, Recreation, Social Activities Hobbies: Reading, Watch TV, Other - Baking, puzzles, grandchildren-family Recreational Activities: I am able to engage in a few activities, I can hardly do any recreational activities - get very tired and chest begins to hurt from CPR compressions. Social Environment - Status Marital Status: - Current Living Arrangements Living Environment:: Spouse - Children How many children do you have?: 2 Do any of your children live nearby?: Yes - Safety Do you feel safe in your surroundings?: Yes - Assistance Do you need any assistance at home?: walker at home and wheelchair for long distance walking (don't feel strong) Review of Systems - Review of Systems Hints: Right click = Denies ([place]ash). Left click = Reports ([place]) Review of Present Symptoms: Reports: Shortness of Breath with Exertion, Operative Discomfort - chest discomfort as a result of the chest compressions and fractured ribs., Dizziness/Lightheadedness - finds if standingto long gets dizzy and feels lightheaded., Fatigue. Denies: Angina, Heart Arrhythmia/Irr egularities, Appetite - Normal - eats very little always have., Sleep - Normal - up every two to three hours going ot the bathroom, has to sleep in the recliner cannot sleep in the bed. Can't sleep in a flat position. - Pain Is Patient Pain Free?: Yes Pain Location: chest Pain Level: 06/30 Risk Factor Assessment - Chief Complaint Chief Complaint: [address] Castano who presented to the emergency room at [facility] with chest pain. Patient then converted to a Ventricluar fibrillation rhythm and went in to cardiac arrest, patient was emergent research laboratory manager intervention with coronary stent placement. Post discharge, the patient was then transfered to our TCU unit for rehab. - Vital Signs Temperature: 97.5 F Respiratory Rate: 16 Pulse Ox: 93 Blood Pressure: 157/92 - Pulse Pulse Rate: 76 Pulse Rhythm: Regular - Hypertension Blood Pressure Sitting - Left Arm: 157/92 - Stress Stress: Recent - Blood Cholesterol/Lipids Total Cholesterol (mg/dL) Goal = less than 200 mg/dL: 152 HDL Cholesterol (mg/dL) Goal = less than 40 mg/dL: 36 LDL Cholesterol (mg/dL) Goal = less than 70 mg/dL: 97 Triglycerides (mg/dL) Goal = less than 150 mg/dL: 95 - Obesity Height: 5 ft 1 in Weight:: 202 lb Weight in Pounds: 202.0 lbs Weight Source: Standing Scale Body Mass Index (BMI): 38.1 Nutritional Referral for Obesity: Yes - Structured Weight loss program - Physical Inactivity Physical Inactivity: None - Family History Family History: Family History (Last Reviewed 11/25/20 @ 04:[address] Jung Fontaine, DO) Father Diabetes Heart disease Hypertension CVA (cerebral vascular accident) Parkinson disease Mother Breast cancer Hypertension Grandmother Cancer Ovarian cancer Son Anesthesia complication Brother Asthma Arthritis Diabetes Respiratory disease Grandfather Lung cancer CVA (cerebral vascular accident) Motivation - Motivation to Participate On a scale of 1 to 10, how prepared are you to commit to attending program?: 10 What do you see as barriers to successfully being able to complete the program?: none What do you see as the benefits of succesfully completing the program? In other words, what do you hope to get out of participating in the program?: getting better, healthier stronger Are there issues you are dealing with that will interfere with completing the program?: no Do you have a spouse or signficant other, family or friends who will help support you to complete the program?: yes
[2020-12-14 10:21] VITALS: BP 157/92; BMI 39.4
[2020-12-14 10:40] VITALS: BP 157/92; PULSE 76; RESP 16; TEMP 36.4; O2SAT 93; BMI 38.1
== END ==
PROVIDERS: PCP Family Medicine Geriatric Medicine; Referring Provider Specialist; Visit Provider Specialist
DX: I10 Essential (primary) hypertension (principal); I25.10 Atherosclerotic heart disease of native coronary artery without angina pectoris; E66.9 Obesity, unspecified; I51.89 Other ill-defined heart diseases

== ENCOUNTER 2020-12-20 11:17 | Outpatient (RCR) | payer MEDICARE, SELFPAY ==
[2020-12-14 10:21] VITALS: BMI 39.4
== END 2020-12-21 23:59 ==
LOC: CR 11:17
PROVIDERS: PCP Family Medicine Geriatric Medicine; Referring Provider Internal Medicine Cardiovascular Disease; Visit Provider Internal Medicine Cardiovascular Disease
DX: Z95.5 Presence of coronary angioplasty implant and graft (principal); I46.9 Cardiac arrest, cause unspecified; I25.2 Old myocardial infarction; I25.10 Atherosclerotic heart disease of native coronary artery without angina pectoris
CPT/HCPCS: 93798

== ENCOUNTER → 2020-12-24 11:09 | Outpatient (CLI) | payer MEDICARE, SELFPAY ==
[2020-12-14 10:21] VITALS: BMI 39.4
--- NOTE | 2020-12-24 11:12 | US_ITS ---
INDICATION: NODULE EXAMINATION: Right upper extremity duplex venous ultrasound. HISTORY: Nodule TECHNIQUE: Routine grayscale and color duplex imaging. FINDINGS: In the posterior right upper extremity, along the triceps, is a 1.1 x 1.4 x 0.7 cm mildly heterogeneous echogenic structure highly suggestive of lipoma. Correlate clinically for soft nodule. No internal color flow. Normal surrounding subcutaneous fat. No overlying skin thickening. No other soft tissue mass or fluid collection. IMPRESSION: Findings highly suggestive of lipoma. Electronically Signed: Stanley Dao DO at 21:25 EDT Tel , Service support , US/Ext Non Vasc Limited/Soft Tiss
== END ==
PROVIDERS: PCP Family Medicine Geriatric Medicine; Referring Provider Family Medicine Geriatric Medicine; Visit Provider Family Medicine Geriatric Medicine
DX: R22.9 Localized swelling, mass and lump, unspecified (principal)
CPT/HCPCS: 76882

== ENCOUNTER → 2020-12-28 13:01 | Outpatient (CLI) | payer MEDICARE, SELFPAY ==
[2020-12-14 10:21] VITALS: BMI 39.4
== END ==
PROVIDERS: PCP Family Medicine Geriatric Medicine; Visit Provider Family Medicine Geriatric Medicine
DX: N39.0 Urinary tract infection, site not specified (principal)
CPT/HCPCS: 87077; 87086; 87088; 87186

== ENCOUNTER 2021-01-19 10:30 | Outpatient (RCR) | payer MEDICARE, SELFPAY ==
[2020-12-14 10:21] VITALS: BMI 39.4
--- NOTE | 2021-01-14 07:24 | PCM.CR.ITP ---
Diagnosis Exercise - 30-day Assessment - Visit Date of Eval: 01/14/21 Session #:: 9 Comments:: Considering patients history associated with her recent STEMI, Cardiac Arrest, and PCI intervention patient is recovering well and strongly participating in her recovery. - Physician Prescribed Exercise Modalities: Treadmill, Biodyne - Replaced with Avison YoungFit Lateral [place], NuStep Frequency: 3x/week for 12 weeks [36 sessions] Intensity: 60-80% of age predicted maximum heart rate reserve METs - Progression 0.5-1.0 weekly:: Current METSs:: 3.0 an increase from initial 2.0 MET Target Heart Rate:: 83-107 Current RPE:: 13 Maximum Excercise HR:: 103 Resting Blood Pressure: 128/68 Maximum Exercise Blood Pressure: 140/65 EKG Type: NSR to sinus tach with a rare PAC and PVC - Outcomes & Goals Goals:: Verbalizes understanding of THR, RPE & goal METS by session 6, Documents in home exercise log/reports 30 min aerobic 5 day/wk by DC, Demonstrates accurate pulse taking by DC - Intervention & Plan Exercise Program Goals: Instruct on personal THR & RPE, Instruct on MET level & personal MET goal, Show patient to take own pulse /validate performance until accurate, Instruct on home exercise - 30-day Reassessments 30 day Reassessments:: Progressing - Physical Activity Home Exercise Physical Activity - Home Exercise: Safe Exercise, Warm-up, Self-monitoring, Cool-Down, Home Exercise > 30 min Daily, Sitting Time <3 hours/daily - Outcomes & Goals Outcomes/Goals: Demonstrates correct Warm-up/exercise Cool-Down (S3) if = 2.5 METs, Verbalizes symptoms of exercise intolerance by Session 3 (S3), Demonstrate safe equipment use (S3) & follows exercise prescrition (6) - Intervention & Plan Plan/Intervention: Instruct warm-up & cool-down if exercising at > 2 METs, Instruct on symptoms of exercise intolerance & actions to take, Instruct & monitor on saf, Assess intial functional capacity & safety risk - 30-day Reassessments 30 day Reassessments:: Progressing Nutrition - Initial Assessment Nutrition - 30-Day Assessment - Program Goals Nutrition Program Goals: LDL <100 optimal. 100 - 129 Near optimal. 130 - 159 Borderline High. 160 - 189 High. Total Cholesterol <200 desirable. 200 - 239 Borderline High. >/= 240 High. HDL < 40 Low >/=60 High. Triglycerides <150 desirable. <199 optimal. VlDL 5 - 40. HgbA1C <7%. BMI <25 Patient has diagnosis of Hyperlipidemia (ICD E78)?: Yes - Visit Date of Assessment:: 01/14/21 Session #:: 9 - Cholesterol/Lipids Triglycerides (mg/dL): 95 Total Cholesterol (mg/dL): 152 LDL Cholesterol (mg/dL): 97 HDL Cholesterol (mg/dL): 36 Determine presence & major risk factors that modify LDL goal: Hypertension or hypertensive medication, Low HDL cholesterol <40 mg/dL*, Age men > 45 years; women >/= 55 years Outcomes/Goals: Pt IDs own risk factors & lifestyle modifications by Session 10, Verbalizes symptoms of angina & response by session 3., Pt independently manages Intervention/Plan: Instruct on personal lipid levels & lipid goals/NCEP guidelines, Instruct on cholesterol Referral to dietitian:: No - Patient's insurance does not cover service 30-day Reassessments:: Progressing - Diabetes (Other Core Measures) Diabetes Type: Not Applicable - Weight Mgt (Other Care) Not Applicable: No Height: 5 ft Weight:: 192 lb BMI: 37.5 Diagnosis Overweight/Obesity BMI> 30% ICD-10 E66: Yes Diagnosis High BMI/Morbid Obesity BMI> 35% ICD-10 Z68: Yes Outcomes/Goals: Pt sets, maintains & shows weight loss goal & trend during rehab Intervention/Plan: Instruct on ideal BMI & set weight loss goal w/patient, Assist pt to ID & incorporate diet changes for weight loss by S9, Encourage goal of using 250-300dcal per session for weight loss 30 day Reassessments:: Progressing - Healthy Eating Habits Will attend diet classes:: Yes Outcomes/Goals:: Consume diet rich in vegs,fruits,whole grain/high fiber,fish,lean meat, Limit sat/trans fats,cholesterol & added salts & sugars Intervention/Plan:: Assess current eating habits 30-day Reassessments:: Progressing - Education Gave educational materials for:: Healthy eating Nutrition - 60-Day Assessment Nutrition - 90-Day Assessment Nutrition - Final Assessment Medical - Initial Assessment Medical- 30-Day Assessment - Visit Date of Eval: 01/14/21 Session #:: 9 - Medication Compliance Preventative Medication(s):: Aspirin, FELIZ inhibitor, Ticagrelor/P2Y12 inhibitor, Statin/lipid, Beta jannet H/O mental health issues: depression, anxiety, or addiction?: No Doesn?t believe in the benefits of treatment?: No Believes medications are unnecessary or harmful?: No Has a concern about medication side effects?: No Expresses concern over the cost of medications?: No Outcomes/Goals: Verbalizes medications,desired effect & common side effects @ DC, Pt self-reports following medication regimen, Keeps card in wallet w/medications listed by DC Interventions/plans: Instruct on medication effects & side effects, Review medication list w/patient every two weeks, Instruct importance of taking meds as ordered & assist problem solving 30-day Reassessments:: Progressing - Tobacco Use Tobacco Use: Non-smoker - Hypertension Hypertension Diagnosis:: Hypertension ICD-10 I10 Resting Blood Pressure:: 128/68 [place] [employer] Hypertension Guidelines: [place] [employer] Hypertension Guidelines. Normal BP Less than 120/80. Elevated BP 120/80. Hypertension Stage 1: BP 130-139/80-89. Hypertesnion Stage 2: BP 140 or higher/90 or higher. Hypertension Crisis: BP higher than 180/120 Peak Exercise Blood Pressure:: 140/65 Outcomes/Goals: Able to verbalize/achieve optimal blood pressure <130/80, Incorporates diet changes & exercise for blood pressure control by DC Interventions/plan: Instruct on optimal blood pressure, hypertension & medications, Instruct on effects of sodium, alcohol, stress, exercise &hypertension 30 day Reassessments:: Progressing - Tobacco Cessation Referral Smoking Cessation Referral:: No Individual Education/Counseling:: No Education Schedule Given:: Yes Medical- 60-Day Assessment Medical- 90-Day Assessment Medical - Final Assessment Psychosocial - Initial Assess Psychosocial - 30-Day Assess - VIsit Date of Eval: 01/14/21 Session #:: 9 Not Applicable: Yes History of previous Mental disease:: No - Psychosocial Test Tool Used:: PHQ-9 Questionnaire phq-9 Severity: Severity. 1-4 Minimal Depression. 5-9 Mild Depression. 10-14 Moderate Depression. 15-19 Moderately Sever Depression. 20-27 Severe Depression. Rule: - Referral to Behavioral Health PS - Interventions: Yes Attend Stress Management Classes, No Referral to Behavioral Health if PHQ-9 score >9:, No Referral to [facility] Community Care [facility], No Referral to Physician if PHQ-9 if score is 5-9: - Outcomes/Goals: See list Psychosocial Outcomes/Goals:: ID's personal stressors & 2 strategies to manage stress by discharge - Intervention/Plan: See List Interventions/Plan:: Assess stressors,coping strategies & signs of derpression on admission, Instruct/assist pt to develop coping & personal stress Mgt strategies, Instruct patient to recognize signs & symptoms of depression, Instruct patient to recog - 30-day Reassessments: 30 day Reassessments:: Progressing Psychosocial - 60-Day Assess Psychosocial - 90-Day Assess Psychosocial - Final Assessmen Patient Health Questionnaire 30-Day Re-eval Assessment 1. Little interest or pleasure in doing things: Not at all 2. Feeling down, depressed, or hopeless: Not at all 3. Trouble falling or staying asleep, or sleeping too much: Several days 4. Feeling tired or having little energy: Several days 5. Poor appetite or overeating: Not at all 6. Feeling bad about yourself -- or that you are a failure or have let yourself or your family down: Not at all 7. Trouble concentrating on things, such as reading the newspaper or watching television: Not at all 8. Moving or speaking so slowly that other people could have noticed. Or the opposite - being so fidgety or restless that you have been moving around a lot more than usual: Not at all 9. Thoughts that you would be better off , or of hurting yourself in some way: Not at all Total Score: 2 Self-Efficacy 30-Day Re-eval Assessment We would like to know how confident you are in doing certain activities. Please select your confidence level for:: Select your confidence level for the following using the scale 1-10 where 1 is not at all confident and 10 is totally confident. Your score is the average of all 6 responses. Fatigue: How confident are you that you can keep the fatigue caused by your disease from interfering with the things you want to do? Select Number: 5 Physical Discomfort or Pain: How confident are you that you can keep the physical discomfort or pain of your disease from interfering with the things you want to do? Select Number: 6 Emotional Distress: How confident are you that you can keep the emotional distress caused by your disease from interfering with the things you want to do? Select Number: 6 Other Symptoms or Health Problems: How confident are you that you can keep other symptoms or health problems from interfering with the things you want to do? Select Number: 6 Different Tasks and Activities: How confident are you that you can do the different tasks and activities needed to manage your health condition so as to reduce your need to see a doctor? Select Number: 7 Medication: How confident are you that you can do things other than just taking medication to reduce how much your illness affects your everyday life? Select Number: 8 Total Score:: 6 Nutrition Survey
[2021-01-14 07:32] VITALS: BP 128/68; BP 140/65; BMI 37.5
== END 2021-01-20 23:59 ==
LOC: CR 10:30
PROVIDERS: PCP Family Medicine Geriatric Medicine; Referring Provider Internal Medicine Cardiovascular Disease; Visit Provider Internal Medicine Cardiovascular Disease
DX: I25.10 Atherosclerotic heart disease of native coronary artery without angina pectoris (principal); I25.2 Old myocardial infarction; I46.9 Cardiac arrest, cause unspecified; Z95.5 Presence of coronary angioplasty implant and graft
CPT/HCPCS: 93798

== ENCOUNTER → 2021-01-28 10:57 | Outpatient (CLI) | payer MEDICARE, SELFPAY ==
[2021-01-14 07:32] VITALS: BMI 37.5
--- NOTE | 2021-01-28 11:10 | RAD_ITS ---
STUDY: X-RAY - CERVICAL SPINE REASON FOR EXAM: Female, 75 years old. Neck pain and headache TECHNIQUE: 5 view(s) of the cervical spine were obtained. COMPARISON: None FINDINGS: Normal anterior atlantoaxial articulation. Normal odontoid process. Normal cervical lordosis. There is multi-level endplate spondylosis. There is multi-level degenerative disc disease with multilevel disc space narrowing. The soft tissue structures are unremarkable. RAD/Cerv Spine 2 or 3 Views IMPRESSION: Degenerative changes, no acute findings Electronically Signed: Shawn Mattson MD at 12:55 EDT , Service support ,
== END ==
LOC: POLAB3 10:57 → RAD 11:04
PROVIDERS: PCP Family Medicine Geriatric Medicine; Visit Provider Family Medicine Geriatric Medicine
DX: N39.0 Urinary tract infection, site not specified (principal); M54.2 Cervicalgia
CPT/HCPCS: 72040; 87077; 87086; 87088; 87186

== ENCOUNTER → 2021-02-11 06:41 | Outpatient (CLI) | payer MEDICARE, SELFPAY ==
[2021-01-14 07:32] VITALS: BMI 37.5
--- NOTE | 2021-02-11 13:41 | STRESSREP ---
Stress Test Report Pharmacologic myocardial perfusion stress test. 75-year-old lady with a history of coronary disease. Resting KG demonstrates normal sinus rhythm with a rate of 67 bpm normal intervals are noted resting blood pressure is 128/80 mmHg. 0.4 mg of regadenoson was infused. Protocol followed by rapid intravenous saline flush injection continuous EKG monitoring performed. Maximum heart rate attained was 105 bpm which was 71% of max infected heart rate the maximum workload was 1 metabolic equivalent. At rest there were no ST or T wave changes noted suggest ischemia and at peak exercise upsloping ST changes only were noted with did not meet the criteria for ischemia. No clinical angina was noted. Myocardial perfusion protocol. 14.4 mCi of technetium 99m sestamibi was injected at rest. 0.4 mg of regadenoson was infused. . At peak infusion 43.9 millicuries of endoscopy technician 90 9M sestamibi was injected stress images were obtained stress and rest images were reconstructed and compared in the short axis vertical long and horizontal long axis. Gated images were also obtained. Perfusion SPECT analysis: Review of the stress images demonstrate normal uptake of tracer noted in all areas of the myocardium. The resting images similarly demonstrate normal uptake of tracer noted in all areas of the myocardium. No reversibility is noted to suggest ischemia and no previous infarct is noted. Gated SPECT analysis: The gated ejection fraction is 78%. Conclusion: Normal pharmacologic myocardial perfusion stress test. Preserved ejection fraction.
== END ==
PROVIDERS: PCP Family Medicine Geriatric Medicine; Visit Provider Internal Medicine Cardiovascular Disease
DX: I25.10 Atherosclerotic heart disease of native coronary artery without angina pectoris (principal); Z95.5 Presence of coronary angioplasty implant and graft
CPT/HCPCS: 78452; 93017; A9500; A4216; J2785

== ENCOUNTER 2021-02-18 10:30 | Outpatient (RCR) | payer MEDICARE, SELFPAY ==
[2021-01-14 07:32] VITALS: BMI 37.5
[2021-01-21 00:34] VITALS: BP 128/68; BP 140/65
--- NOTE | 2021-02-07 10:54 | EKG12_ITS ---
Test Reason : CHEST PAIN Blood Pressure : / mmHG Vent. Rate : 072 BPM Atrial Rate : 072 BPM P-R Int : 166 ms QRS Dur : 072 ms QT Int : 414 ms P-R-T Axes : 051 -12 011 degrees QTc Int : 453 ms Normal sinus rhythm Minimal voltage criteria for LVH, may be normal variant Anterolateral infarct , age undetermined Abnormal ECG Confirmed by TEJAL BENNETT, AISHWARYA ([id number]), technical editor CLAUDIA DIOP ([id number]) on 02/07/2021 1:02:56 PM Referred By: Gallo Castano Confirmed By:AISHWARYA TOURE MD
--- NOTE | 2021-02-11 07:26 | PCM.CR.ITP ---
Diagnosis Exercise - 60-day Assessment - Visit Date of Eval: 02/11/21 Session #:: 19 - Patient started CR on 12/20/20 and has only missed 3 sessions to date. Comments:: 02/07/2021 C/O heart burn took two TUMs after breakfast. She does have acid reflux. Pt became lightheaded c/o dyspnea during exercise. 12-lead EKG was done and reported to Dr. Jordan. Patient is to be scheduled for a stress test due to her heart disease history. - Physician Prescribed Exercise Modalities: NuStep, SciFit Frequency: 3x/week for 12 weeks [36 sessions] Intensity: 60-80% of age predicted maximum heart rate reserve Current METSs:: 3.5 unchanged due to complaints of chest pain, indigestion, dizziness. Target Heart Rate:: 83-107 Current RPE:: 12-13 Maximum Excercise HR:: 106 Resting Blood Pressure: 130/68 Maximum Exercise Blood Pressure: 154/82 EKG Type: NSR to sinus tach with rare PACs and PVCs. Current Physical Activity or Exercising minutes: 53 - Outcomes & Goals Goals:: Verbalizes understanding of THR, RPE & goal METS by session 6, Documents in home exercise log/reports 30 min aerobic 5 day/wk by DC, Demonstrates accurate pulse taking by DC - Intervention & Plan Exercise Program Goals: Instruct on personal THR & RPE, Instruct on MET level & personal MET goal, Show patient to take own pulse /validate performance until accurate, Instruct on home exercise - 30-day Reassessments 30 day Reassessments:: Progressing - Physical Activity Home Exercise Physical Activity - Home Exercise: Safe Exercise, Warm-up, Self-monitoring, Cool-Down, Home Exercise > 30 min Daily, Sitting Time <3 hours/daily - Outcomes & Goals Outcomes/Goals: Demonstrates correct Warm-up/exercise Cool-Down (S3) if = 2.5 METs, Verbalizes symptoms of exercise intolerance by Session 3 (S3), Demonstrate safe equipment use (S3) & follows exercise prescrition (6) - Intervention & Plan Plan/Intervention: Instruct warm-up & cool-down if exercising at > 2 METs, Instruct on symptoms of exercise intolerance & actions to take, Instruct & monitor on saf, Assess intial functional capacity & safety risk - 30-day Reassessments 30 day Reassessments:: Progressing Nutrition - Initial Assessment Nutrition - 30-Day Assessment Nutrition - 60-Day Assessment - Program Goals Nutrition Program Goals: LDL <100 optimal. 100 - 129 Near optimal. 130 - 159 Borderline High. 160 - 189 High. Total Cholesterol <200 desirable. 200 - 239 Borderline High. >/= 240 High. HDL < 40 Low >/=60 High. Triglycerides <150 desirable. <199 optimal. VlDL 5 - 40. HgbA1C <7%. BMI <25 Patient has diagnosis of Hyperlipidemia (ICD E78)?: Yes - Visit Date of Assessment:: 02/11/21 Session #:: 19 - Cholesterol/Lipids Triglycerides (mg/dL): 95 Total Cholesterol (mg/dL): 152 LDL Cholesterol (mg/dL): 97 HDL Cholesterol (mg/dL): 36 Determine presence & major risk factors that modify LDL goal: Hypertension or hypertensive medication, Low HDL cholesterol <40 mg/dL*, Family history of premature CHD in Male < 55 years: female <65 yearsFa, Age men > 45 years; women >/= 55 years Outcomes/Goals: Pt IDs own risk factors & lifestyle modifications by Session 10, Verbalizes symptoms of angina & response by session 3., Pt independently manages Intervention/Plan: Instruct on personal lipid levels & lipid goals/NCEP guidelines, Instruct on cholesterol Referral to dietitian:: No - After nutrition spoke with cyrus she has declined. 30-day Reassessments:: Progressing - Diabetes (Other Core Measures) Diabetes Type: Not Applicable - Weight Mgt (Other Care) Not Applicable: No Height: 5 ft Weight:: 194 lb 8 oz BMI: 38.0 Diagnosis Overweight/Obesity BMI> 30% ICD-10 E66: Yes Diagnosis High BMI/Morbid Obesity BMI> 35% ICD-10 Z68: Yes Outcomes/Goals: Pt sets, maintains & shows weight loss goal & trend during rehab Intervention/Plan: Instruct on ideal BMI & set weight loss goal w/patient, Assist pt to ID & incorporate diet changes for weight loss by S9, Encourage goal of using 250-300dcal per session for weight loss 30 day Reassessments:: Progressing - Healthy Eating Habits Will attend diet classes:: Yes Outcomes/Goals:: Consume diet rich in vegs,fruits,whole grain/high fiber,fish,lean meat, Limit sat/trans fats,cholesterol & added salts & sugars Intervention/Plan:: Assess current eating habits 30-day Reassessments:: Progressing - Education Gave educational materials for:: Healthy eating Nutrition - 90-Day Assessment Nutrition - Final Assessment Medical - Initial Assessment Medical- 30-Day Assessment Medical- 60-Day Assessment - Visit Date of Eval: 02/11/21 Session #:: 19 - Medication Compliance Preventative Medication(s):: Aspirin, Ticagrelor/P2Y12 inhibitor, Statin/lipid, Beta jannet H/O mental health issues: depression, anxiety, or addiction?: Yes Doesn?t believe in the benefits of treatment?: No Believes medications are unnecessary or harmful?: No Has a concern about medication side effects?: No Expresses concern over the cost of medications?: No Outcomes/Goals: Verbalizes medications,desired effect & common side effects @ DC, Pt self-reports following medication regimen, Keeps card in wallet w/medications listed by DC Interventions/plans: Instruct on medication effects & side effects, Review medication list w/patient every two weeks, Instruct importance of taking meds as ordered & assist problem solving 30-day Reassessments:: Progressing - Tobacco Use Tobacco Use: Non-smoker - Hypertension Hypertension Diagnosis:: Hypertension ICD-10 I10 Resting Blood Pressure:: 130/68 [place] [employer] Hypertension Guidelines: [place] [employer] Hypertension Guidelines. Normal BP Less than 120/80. Elevated BP 120/80. Hypertension Stage 1: BP 130-139/80-89. Hypertesnion Stage 2: BP 140 or higher/90 or higher. Hypertension Crisis: BP higher than 180/120 Peak Exercise Blood Pressure:: 154/82 Outcomes/Goals: Able to verbalize/achieve optimal blood pressure <130/80, Incorporates diet changes & exercise for blood pressure control by DC Interventions/plan: Instruct on optimal blood pressure, hypertension & medications 30 day Reassessments:: Progressing - Tobacco Cessation Referral Smoking Cessation Referral:: No Individual Education/Counseling:: No Education Schedule Given:: Yes - Online resources and printed workbook provided. 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 - Psychosocial Test Tool Used:: PHQ-9 Questionnaire phq-9 Severity: Severity. 1-4 Minimal Depression. 5-9 Mild Depression. 10-14 Moderate Depression. 15-19 Moderately Sever Depression. 20-27 Severe Depression. Rule: - Referral to Behavioral Health PS - Interventions: Yes Referral to Physician if PHQ-9 if score is 5-9:, Yes Attend Stress Management Classes, No Referral to Behavioral Health if PHQ-9 score >9:, No [facility]erral to [facility] - Outcomes/Goals: See list Psychosocial Outcomes/Goals:: ID's personal stressors & 2 strategies to manage stress by discharge - Intervention/Plan: See List Interventions/Plan:: Assess stressors,coping strategies & signs of derpression on admission, Instruct/assist pt to develop coping & personal stress Mgt strategies, Instruct patient to recognize signs & symptoms of depression, Instruct patient to recog - 30-day Reassessments: 30 day Reassessments:: Progressing Psychosocial - 90-Day Assess Psychosocial - Final Assessmen Patient Health Questionnaire 60-Day Re-eval Assessment 1. Little interest or pleasure in doing things: Not at all 2. Feeling down, depressed, or hopeless: Not at all 3. Trouble falling or staying asleep, or sleeping too much: Several days 4. Feeling tired or having little energy: Several days 5. Poor appetite or overeating: Not at all 6. Feeling bad about yourself -- or that you are a failure or have let yourself or your family down: Several days 7. Trouble concentrating on things, such as reading the newspaper or watching television: Not at all 8. Moving or speaking so slowly that other people could have noticed. Or the opposite - being so fidgety or restless that you have been moving around a lot more than usual: Not at all 9. Thoughts that you would be better off , or of hurting yourself in some way: Not at all How difficult have these problems made it for you to do your work, take care of things at home, or get along with other people?: Not difficult at all Total Score: 3 Self-Efficacy 60-Day Re-eval Assessment We would like to know how confident you are in doing certain activities. Please select your confidence level for:: Select your confidence level for the following using the scale 1-10 where 1 is not at all confident and 10 is totally confident. Your score is the average of all 6 responses. Fatigue: How confident are you that you can keep the fatigue caused by your disease from interfering with the things you want to do? Select Number: 6 Physical Discomfort or Pain: How confident are you that you can keep the physical discomfort or pain of your disease from interfering with the things you want to do? Select Number: 7 Emotional Distress: How confident are you that you can keep the emotional distress caused by your disease from interfering with the things you want to do? Select Number: 7 Other Symptoms or Health Problems: How confident are you that you can keep other symptoms or health problems from interfering with the things you want to do? Select Number: 7 Different Tasks and Activities: How confident are you that you can do the different tasks and activities needed to manage your health condition so as to reduce your need to see a doctor? Select Number: 8 Medication: How confident are you that you can do things other than just taking medication to reduce how much your illness affects your everyday life? Select Number: 9 Total Score:: 7 Nutrition Survey
[2021-02-11 07:58] VITALS: BP 130/68; BP 154/82; BMI 38.0
== END 2021-02-20 23:59 ==
LOC: CR 10:30
PROVIDERS: PCP Family Medicine Geriatric Medicine; Referring Provider Internal Medicine Cardiovascular Disease; Visit Provider Internal Medicine Cardiovascular Disease
DX: I25.10 Atherosclerotic heart disease of native coronary artery without angina pectoris (principal); I25.2 Old myocardial infarction; I46.9 Cardiac arrest, cause unspecified; Z95.5 Presence of coronary angioplasty implant and graft
CPT/HCPCS: 93005; 93798

== ENCOUNTER → 2021-02-18 11:06 | Outpatient (CLI) | payer MEDICARE, SELFPAY ==
[2021-02-11 09:03] VITALS: BMI 38.0
[2021-02-18 12:07] LABS: Absolute Lymphocyte Count 1.54 X10^3/uL (0.83-4.51); Absolute Neutrophil Count 4.1 X10^3/uL (2.0-7.7); Basophil# 0.05 X10^3/uL; Basophil% 0.8 % (0-1); Eosinophil# 0.28 X10^3/uL; Eosinophils% 4.2 % (0-5); Hematocrit 38.4 % (37-47); Hemoglobin 12.5 g/dL (12.0-15.0); Lymphocyte # 1.54 X10^3/ul (0.83-4.51); Lymphocyte % 23.2 % (19-41); Mean Corp Hgb Conc 32.6 g/dL (32-36); Mean Corpuscular Hgb 27.5 pg (27.0-32.0); Mean Corpuscular Volume 84.4 fL (81-99); Mean Platelet Vol. 9.8 fl (6.2-12.0); Monocyte# 0.62 X10^3/uL; Monocyte% 9.4 % (0-10); NRBC Flagged by Analyzer 0 % (0-5); Neutrophil # 4.12 X10^3/uL (2.7-7.7); Neutrophil % 62.1 % (47-70); Platelet Count 320 K/mm3 (150-450); RBC Distribution Width CV 14.8 % (11.6-14.6); RBC Distribution Width SD 45.5 fl (35.1-43.9); Red Blood Count 4.55 M/mm3 (4.2-5.4); White Blood Count 6.6 K/mm3 (4.4-11.0)
[2021-02-18 12:18] LABS: Erythrocyte Sedimentation Rate 41 mm/hr (0-30)
[2021-02-18 12:41] LABS: CRP 3.46 mg/L (0.0-3.0)
== END ==
PROVIDERS: PCP Family Medicine Geriatric Medicine; Referring Provider Specialist; Visit Provider Specialist
DX: M25.561 Pain in right knee (principal); Z96.651 Presence of right artificial knee joint
CPT/HCPCS: 36415; 85025; 85652; 86140

== ENCOUNTER → 2021-02-21 09:43 | Outpatient (CLI) | payer MEDICARE, SELFPAY ==
[2021-02-11 09:03] VITALS: BMI 38.0
== END ==
PROVIDERS: PCP Family Medicine Geriatric Medicine; Referring Provider Specialist; Visit Provider Specialist
DX: M25.561 Pain in right knee (principal); Z96.651 Presence of right artificial knee joint
CPT/HCPCS: 87015; 87070; 87075; 87101; 87116; 87205; 87206; 93798

== ENCOUNTER → 2021-02-28 08:36 | Outpatient (CLI) | payer MEDICARE, SELFPAY ==
[2021-02-11 09:03] VITALS: BMI 38.0
[2021-02-28 10:22] LABS: RBC /Synovial Fluid 1.098 10^6/uL (0); Synovial Fld Mononuclear WBC % 39.8 %; Synovial Fld Polynuclear WBC # 1.403 10^3/uL; Synovial Fld Polynuclear WBC % 60.2 %
[2021-02-28 10:34] LABS: Appearance /Synovial Fluid Hazy (CLEAR); Color / Synovial Fluid Red (Pale Yellow)
[2021-02-28 10:35] LABS: AUTO B FLUID DILUENT BKGD CT WBC <0.1 RBC <0.01 (W<.1,R<.01); Source / Synovial Fluid RIGHT KNEE
[2021-02-28 11:37] LABS: Lymph 8 %; Neutrophil 92 % (0-25)
[2021-02-28 11:40] LABS: Body Fluid QC Type(s) BF1Q
[2021-02-28 11:41] LABS: Synovial Fld Mononuclear WBC # 0.928 10^3/ul
[2021-03-01 14:43] LABS: Pathologist Comment Reviewed
== END ==
PROVIDERS: PCP Family Medicine Geriatric Medicine; Referring Provider Specialist; Visit Provider Specialist
DX: Z96.651 Presence of right artificial knee joint (principal)
CPT/HCPCS: 89050; 89051; 93798

== ENCOUNTER → 2021-03-03 11:54 | Outpatient (CLI) | payer MEDICARE, SELFPAY ==
[2021-02-11 09:03] VITALS: BMI 38.0
[2021-03-03 12:58] LABS: Hematocrit 39.5 % (37-47); Hemoglobin 12.6 g/dL (12.0-15.0); Mean Corp Hgb Conc 31.9 g/dL (32-36); Mean Corpuscular Volume 84.6 fL (81-99); Mean Platelet Vol. 9.8 fl (6.2-12.0); Platelet Count 320 K/mm3 (150-450); RBC Distribution Width CV 14.7 % (11.6-14.6); RBC Distribution Width SD 45.4 fl (35.1-43.9); Red Blood Count 4.67 M/mm3 (4.2-5.4); White Blood Count 6.4 K/mm3 (4.4-11.0)
[2021-03-03 13:14] LABS: Magnesium 2.6 mg/dL (1.6-2.6)
[2021-03-03 13:21] LABS: BNP,B-Type NATRIURETIC PEPTIDE 134.7 pg/mL (0-100)
[2021-03-03 13:30] LABS: Anion Gap 5 (5-15); BUN 15 mg/dL (7-18); BUN/Creat Ratio 18.6 RATIO (10-20); Calcium,Total 9.4 mg/dL (8.5-10.1); Chloride 107 mmol/L (98-107); Creatinine, Serum 0.81 mg/dL (0.55-1.02); EST Glomerular Filtration Rate 74 mL/min (>60); Est Glom Filt Rate - Afr Amer 89 mL/min (>60); Glucose 85 mg/dL (74-106); Potassium 4.1 mmol/L (3.5-5.1); Sodium Level 140 mmol/L (136-145); Thyroid Stim Hormone (TSH) 1.18 uIU/mL (0.358-3.74)
== END ==
PROVIDERS: Internal Medicine Cardiovascular Disease; PCP Family Medicine Geriatric Medicine; Referring Provider Nurse Practitioner Family; Visit Provider Nurse Practitioner Family
DX: R06.00 Dyspnea, unspecified (principal); I21.3 ST elevation (STEMI) myocardial infarction of unspecified site; I25.10 Atherosclerotic heart disease of native coronary artery without angina pectoris; I25.5 Ischemic cardiomyopathy; I48.91 Unspecified atrial fibrillation; Z95.5 Presence of coronary angioplasty implant and graft
CPT/HCPCS: 36415; 80048; 83735; 83880; 84443; 85027

== ENCOUNTER → 2021-03-07 10:42 | Outpatient (CLI) | payer MEDICARE, SELFPAY ==
[2021-02-11 09:03] VITALS: BMI 38.0
[2021-03-07 13:08] LABS: Anion Gap 6 (5-15); BUN 26 mg/dL (7-18); Calcium,Total 9.2 mg/dL (8.5-10.1); Chloride 104 mmol/L (98-107); EST Glomerular Filtration Rate 58 mL/min (>60); Est Glom Filt Rate - Afr Amer 70 mL/min (>60); Glucose 87 mg/dL (74-106); Potassium 3.2 mmol/L (3.5-5.1); Sodium Level 140 mmol/L (136-145)
== END ==
PROVIDERS: PCP Family Medicine Geriatric Medicine; Referring Provider Internal Medicine Cardiovascular Disease; Visit Provider Internal Medicine Cardiovascular Disease
DX: I25.5 Ischemic cardiomyopathy (principal)
CPT/HCPCS: 36415; 80048

== ENCOUNTER 2021-03-21 10:30 | Outpatient (RCR) | payer MEDICARE, SELFPAY ==
[2021-02-11 09:03] VITALS: BMI 38.0
[2021-02-21 00:27] VITALS: BP 130/68; BP 154/82
--- NOTE | 2021-03-02 11:40 | EKG12_ITS ---
Test Reason : ARRHYTTHMIA Blood Pressure : / mmHG Vent. Rate : 116 BPM Atrial Rate : 116 BPM P-R Int : 198 ms QRS Dur : 068 ms QT Int : 318 ms P-R-T Axes : 069 -11 005 degrees QTc Int : 442 ms Sinus tachycardia Inferior infarct , age undetermined , cannot be excluded Anterior infarct , age undetermined Abnormal ECG Confirmed by JOSE ANTONIO BENNETT, GALLO ([id number]), associate entertainment editor CLAUDIA DIOP ([id number]) on 03/02/2021 1:46:36 PM Referred By: Gallo Brady Confirmed By:GALLO BRADY MD
--- NOTE | 2021-03-16 14:02 | CR.ITP_ITS ---
Diagnosis Exercise - 90-day Assessment - Visit Date of Eval: 03/16/21 Session #:: 31 - Physician Prescribed Exercise Modalities: Treadmill, NuStep, SciFit Frequency: 3x/week for 12 weeks [36 sessions] Intensity: 60-80% of age predicted maximum heart rate reserve Current METSs:: 3.5 Target Heart Rate:: 83-107 Current RPE:: 12-14 Maximum Excercise HR:: 97 Resting Blood Pressure: 96/54 Maximum Exercise Blood Pressure: 110/62 EKG Type: NSR with isolated PAC and PVCs Current Physical Activity or Exercising minutes: 43:08 - Outcomes & Goals Goals:: Verbalizes understanding of THR, RPE & goal METS by session 6, Documents in home exercise log/reports 30 min aerobic 5 day/wk by DC, Demonstrates accurate pulse taking by DC - Intervention & Plan Exercise Program Goals: Instruct on personal THR & RPE, Instruct on MET level & personal MET goal, Show patient to take own pulse /validate performance until accurate, Instruct on home exercise - 30-day Reassessments 30 day Reassessments:: Progressing - Physical Activity Home Exercise Physical Activity - Home Exercise: Safe Exercise, Warm-up, Self-monitoring, Cool-Down, Home Exercise > 30 min Daily, Sitting Time <3 hours/daily - Outcomes & Goals Outcomes/Goals: Demonstrates correct Warm-up/exercise Cool-Down (S3) if = 2.5 METs, Verbalizes symptoms of exercise intolerance by Session 3 (S3), Demonstrate safe equipment use (S3) & follows exercise prescrition (6) - Intervention & Plan Plan/Intervention: Instruct warm-up & cool-down if exercising at > 2 METs, Instruct on symptoms of exercise intolerance & actions to take, Instruct & monitor on saf, Assess intial functional capacity & safety risk - 30-day Reassessments 30 day Reassessments:: Progressing Nutrition - Initial Assessment Nutrition - 30-Day Assessment Nutrition - 60-Day Assessment Nutrition - 90-Day Assessment - Program Goals Nutrition Program Goals: LDL <100 optimal. 100 - 129 Near optimal. 130 - 159 Borderline High. 160 - 189 High. Total Cholesterol <200 desirable. 200 - 239 Borderline High. >/= 240 High. HDL < 40 Low >/=60 High. Triglycerides <150 desirable. <199 optimal. VlDL 5 - 40. HgbA1C <7%. BMI <25 Patient has diagnosis of Hyperlipidemia (ICD E78)?: Yes - Visit Date of Assessment:: 03/16/21 Session #:: 31 - Cholesterol/Lipids Determine presence & major risk factors that modify LDL goal: Hypertension or hypertensive medication, Family history of premature CHD in Male < 55 years: f emale <65 yearsFa, Age men > 45 years; women >/= 55 years Outcomes/Goals: Pt IDs own risk factors & lifestyle modifications by Session 10, Verbalizes symptoms of angina & response by session 3., Pt independently manages Intervention/Plan: Instruct on personal lipid levels & lipid goals/NCEP guidelines, Instruct on cholesterol 30-day Reassessments:: Progressing - Diabetes (Other Core Measures) Diabetes Type: Not Applicable - Weight Mgt (Other Care) Not Applicable: No Height: 5 ft Weight:: 191 lb BMI: 37.3 Diagnosis Overweight/Obesity BMI> 30% ICD-10 E66: Yes Diagnosis High BMI/Morbid Obesity BMI> 35% ICD-10 Z68: Yes Outcomes/Goals: Pt sets, maintains & shows weight loss goal & trend during rehab Intervention/Plan: Instruct on ideal BMI & set weight loss goal w/patient, Assist pt to ID & incorporate diet changes for weight loss by S9, Encourage goal of using 250-300dcal per session for weight loss 30 day Reassessments:: Progressing - Healthy Eating Habits Will attend diet classes:: Yes Outcomes/Goals:: Consume diet rich in vegs,fruits,whole grain/high fiber,fish,lean meat, Limit sat/trans fats,cholesterol & added salts & sugars 30-day Reassessments:: Progressing - Education Gave educational materials for:: Healthy eating Nutrition - Final Assessment Medical - Initial Assessment Medical- 30-Day Assessment Medical- 60-Day Assessment Medical- 90-Day Assessment - Visit Date of Eval: 03/16/21 Session #:: 31 - Medication Compliance Preventative Medication(s):: Aspirin, Ticagrelor/P2Y12 inhibitor, Statin/lipid, Beta jannet, Eliquis H/O mental health issues: depression, anxiety, or addiction?: Yes Doesn?t believe in the benefits of treatment?: No Believes medications are unnecessary or harmful?: No Has a concern about medication side effects?: No Expresses concern over the cost of medications?: No Outcomes/Goals: Verbalizes medications,desired effect & common side effects @ DC, Pt self-reports following medication regimen, Keeps card in wallet w/medications listed by DC Interventions/plans: Instruct on medication effects & side effects, Review medication list w/patient every two weeks, Instruct importance of taking meds as ordered & assist problem solving 30-day Reassessments:: Progressing - Tobacco Use Tobacco Use: Non-smoker - Hypertension Hypertension Diagnosis:: Hypertension ICD-10 I10 Resting Blood Pressure:: 95/54 [place] [employer] Hypertension Guidelines: [place] [employer] Hypertension Guidelines. Normal BP Less than 120/80. Elevated BP 120/80. Hypertension Stage 1: BP 130-139/80-89. Hypertesnion Stage 2: BP 140 or higher/90 or higher. Hypertension Crisis: BP higher than 180/120 Peak Exercise Blood Pressure:: 110/62 Outcomes/Goals: Able to verbalize/achieve optimal blood pressure <130/80, Incorporates diet changes & exercise for blood pressure control by DC Interventions/plan: Instruct on optimal blood pressure, hypertension & medications, Instruct on effects of sodium, alcohol, stress, exercise &hypertension 30 day Reassessments:: Progressing - Tobacco Cessation Referral Smoking Cessation Referral:: No Individual Education/Counseling:: No Education Schedule Given:: Yes Medical - Final Assessment Psychosocial - Initial Assess Psychosocial - 30-Day Assess Psychosocial - 60-Day Assess Psychosocial - 90-Day Assess - VIsit Date of Eval: 03/16/21 Session #:: 31 Not Applicable: No History of previous Mental disease:: Yes History of Emotional Disorders: Depression Self-reported stressors: Recent Illness - Psychosocial Test Tool Used:: PHQ-9 Questionnaire phq-9 Severity: Severity. 1-4 Minimal Depression. 5-9 Mild Depression. 10-14 Moderate Depression. 15-19 Moderately Sever Depression. 20-27 Severe Depression. Rule: - Referral to Behavioral Health PS - Interventions: Yes Referral to Physician if PHQ-9 if score is 5-9:, Yes Attend Stress Management Classes, No Referral to Behavioral Health if PHQ-9 score >9:, No Referral to [facility] - Outcomes/Goals: See list Psychosocial Outcomes/Goals:: ID's personal stressors & 2 strategies to manage stress by discharge - Intervention/Plan: See List Interventions/Plan:: Assess stressors,coping strategies & signs of derpression on admission, Instruct/assist pt to develop coping & personal stress Mgt strategies, Instruct patient to recognize signs & symptoms of depression, Instruct patient to recog - 30-day Reassessments: 30 day Reassessments:: Progressing Psychosocial - Final Assessmen Patient Health Questionnaire 90-Day Re-eval Assessment 1. Little interest or pleasure in doing things: Not at all 2. Feeling down, depressed, or hopeless: Several days 3. Trouble falling or staying asleep, or sleeping too much: Several days 4. Feeling tired or having little energy: Several days 5. Poor appetite or overeating: Not at all 6. Feeling bad about yourself -- or that you are a failure or have let yourself or your family down: Several days 7. Trouble concentrating on things, such as reading the newspaper or watching television: Several days 8. Moving or speaking so slowly that other people could have noticed. Or the opposite - being so fidgety or restless that you have been moving around a lot more than usual: Not at all 9. Thoughts that you would be better off , or of hurting yourself in some way: Not at all How difficult have these problems made it for you to do your work, take care of things at home, or get along with other people?: Somewhat difficult Total Score: 5 Self-Efficacy 90-Day Re-eval Assessment We would like to know how confident you are in doing certain activities. Please select your confidence level for:: Select your confidence level for the following using the scale 1-10 where 1 is not at all confident and 10 is totally confident. Your score is the average of all 6 responses. Fatigue: How confident are you that you can keep the fatigue caused by your disease from interfering with the things you want to do? Select Number: 7 Physical Discomfort or Pain: How confident are you that you can keep the physical discomfort or pain of your disease from interfering with the things you want to do? Select Number: 7 Emotional Distress: How confident are you that you can keep the emotional distress caused by your disease from interfering with the things you want to do? Select Number: 7 Other Symptoms or Health Problems: How confident are you that you can keep other symptoms or health problems from interfering with the things you want to do? Select Number: 7 Different Tasks and Activities: How confident are you that you can do the different tasks and activities needed to manage your health condition so as to reduce your need to see a doctor? Select Number: 8 Medication: How confident are you that you can do things other than just taking medication to reduce how much your illness affects your everyday life? Select Number: 9 Total Score:: 7 Nutrition Survey
[2021-03-16 14:15] VITALS: BP 110/62; BP 95/54; BP 96/54; BMI 37.3
== END 2021-03-22 23:59 ==
LOC: CR 10:30
PROVIDERS: PCP Family Medicine Geriatric Medicine; Referring Provider Internal Medicine Cardiovascular Disease; Visit Provider Internal Medicine Cardiovascular Disease
DX: I25.10 Atherosclerotic heart disease of native coronary artery without angina pectoris (principal); I46.9 Cardiac arrest, cause unspecified; I25.2 Old myocardial infarction; Z95.5 Presence of coronary angioplasty implant and graft
CPT/HCPCS: 93005; 93798

== ENCOUNTER → 2021-03-22 10:53 | Outpatient (CLI) | payer MEDICARE, SELFPAY ==
[2021-02-11 09:03] VITALS: BMI 38.0
[2021-03-16 14:15] VITALS: BMI 37.3
--- NOTE | 2021-03-22 10:55 | ECHOLC_ITS ---
Reason For Study: CHF Procedure This was a limited 2D transthoracic echocardiogram. The study was technically difficult. Contrast injection was performed. Limited views were obtained. Exam performed in department. Left Ventricle Normal LV size. Left ventricular systolic function is normal. The estimated ejection fraction is 55 %. No regional wall motion abnormalities noted. Right Ventricle Normal right ventricle. Normal systolic function. Atria Normal left atrium. Normal right atrium. Mitral Valve There is no mitral annular calcification. Normal mitral valve. Tricuspid Valve Normal tricuspid valve. Aortic Valve Trisinus/trileaflet aortic valve. Mild focal aortic valve thickening. Pulmonic Valve The pulmonic valve is not well visualized. Pericardium/Pleural No pericardial effusion. Medication 22 gauge I.V. with prn adaptor inserted into left arm. Diluted definity 2.5ml given slow IV push to enhance endocardial definition. MMode/2D Measurements & Calculations LVIDd: 3.6 cm IVSd: 1.00 cm LA dimension(2D): 3.3 cm LVIDs: 2.5 cm LVPWd: 0.98 cm FS: 30.8 % ECHO/Echo Limited w/Contrast Interpretation Summary The study was technically difficult. Contrast injection was performed. Limited views were obtained. Left ventricular systolic function is normal. The estimated ejection fraction is 55 %. Mild focal aortic valve thickening. Ordering Physician: Romero Broderick/Gallo Castano Referring Physician: Alexi Morin Chi Performed By: Lula Garnett RDCS
== END ==
PROVIDERS: PCP Family Medicine Geriatric Medicine; Referring Provider Nurse Practitioner Family; Visit Provider Nurse Practitioner Family
DX: I25.10 Atherosclerotic heart disease of native coronary artery without angina pectoris (principal); I25.5 Ischemic cardiomyopathy; Z95.5 Presence of coronary angioplasty implant and graft; I51.89 Other ill-defined heart diseases; I48.91 Unspecified atrial fibrillation
CPT/HCPCS: 93308; Q9957; A4216; C8924; J3490

== ENCOUNTER 2021-03-30 10:30 | Outpatient (RCR) | payer MEDICARE, SELFPAY ==
[2021-03-16 14:15] VITALS: BMI 37.3
[2021-03-23 00:31] VITALS: BP 110/62; BP 95/54; BP 96/54
== END 2021-04-22 23:59 ==
LOC: CR 10:30
PROVIDERS: PCP Family Medicine Geriatric Medicine; Referring Provider Internal Medicine Cardiovascular Disease; Visit Provider Internal Medicine Cardiovascular Disease
DX: I25.10 Atherosclerotic heart disease of native coronary artery without angina pectoris (principal); I46.9 Cardiac arrest, cause unspecified; I25.2 Old myocardial infarction; Z95.5 Presence of coronary angioplasty implant and graft
CPT/HCPCS: 93798

== ENCOUNTER → 2021-03-30 11:52 | Outpatient (CLI) | payer MEDICARE, SELFPAY ==
[2020-12-14 10:21] VITALS: BMI 39.4
[2021-03-16 14:15] VITALS: BMI 37.3
--- NOTE | 2021-03-30 11:54 | BI_ITS ---
MAMMOGRAPHY - BILATERAL SCREENING REASON FOR EXAM: Female, 75 years old. Routine annual screening examination. PERTINENT HISTORY: Mother with breast cancer. Aunt with breast cancer. History of prior bilateral excisional breast biopsies. TECHNIQUE: Digital bilateral breast ronald (3D mammographic acquisition) in the CC and MLO projections. 2-D mediolateral oblique (MLO) and craniocaudad (CC) views of both breasts were obtained. CAD: Full Field Digital Mammography with Computer Added Detection was performed. COMPARISON: Comparison is made with prior examination dated 02/27/2020 and 02/25/2019. FINDINGS: Breast Composition: The breasts are heterogeneously dense, which may obscure small masses. There are no dominant masses or suspicious calcifications. Once again, 2 tissue markers are seen in the right breast from prior biopsies. A tissue clip marker is also seen in the deep central medial aspect of the left breast. Stable small benign-appearing bilateral axillary lymph nodes. No other significant abnormalities are identified. There has been no significant change since the prior study. BI/SCRN MAMM (CAD)W/RONALD BILAT IMPRESSION: Stable bilateral screening mammogram. Yearly follow-up mammogram recommended. (A) ASSESSMENT CATEGORY: BIRADS Category 2: Benign. A letter regarding these results will be sent to the patient by the facility within 30 days. Approximately 10% of breast cancers are not detected by mammography. A normal mammogram should not delay biopsy of a clinically suspicious abnormality. [id number] Electronically Signed: Peter Davidson MD at 12:45 EST , Service support ,
== END ==
PROVIDERS: PCP Family Medicine Geriatric Medicine; Referring Provider Family Medicine Geriatric Medicine; Visit Provider Family Medicine Geriatric Medicine
DX: Z12.31 Encounter for screening mammogram for malignant neoplasm of breast (principal)
CPT/HCPCS: 77063; 77067

== ENCOUNTER 2021-05-06 11:22 | Outpatient (CLI) | payer MEDICARE, SELFPAY ==
[2021-03-16 14:15] VITALS: BMI 37.3
== END 2021-05-06 23:59 | disposition short-term general hospital (02) ==
PROVIDERS: PCP Family Medicine Geriatric Medicine; Visit Provider Family Medicine Geriatric Medicine
DX: N39.0 Urinary tract infection, site not specified (principal)
CPT/HCPCS: 87077; 87086; 87088; 87186

== ENCOUNTER 2021-05-19 08:31 | Outpatient (CLI) | payer MEDICARE, SELFPAY ==
[2021-03-16 14:15] VITALS: BMI 37.3
--- NOTE | 2021-05-19 08:33 | CDU_ITS ---
Reason For Study: Dizzy Rt. Velocities/BP Lt. Velocities/BP Prox CCA 98.2/18.6 cm/sec. Prox CCA 99.2/20.6 cm/sec. Mid CCA 108.6/22.6 cm/sec. Mid CCA 135.7/31.6 cm/sec. Dist CCA 86.5/20 cm/sec. Dist CCA 113.8/24.3 cm/sec. Prox ICA 86.5/16 cm/sec. Prox ICA 58.6/14.6 cm/sec. Mid ICA 61.7/17.3 cm/sec. Mid ICA 69.5/23.4 cm/sec. Dist ICA 73.4/26.5 cm/sec. Dist ICA 76.2/25.6 cm/sec. Rt. ICA/CCA = 0.88. Lt. ICA/CCA = 0.67. Prox ECA 86.5/6.9 cm/sec. Prox ECA 73.6/6 cm/sec. Rt. Vert. 30.5/8.8 cm/sec. Lt. Vert. 44.3/14.6 cm/sec. Right Extracranial There is homogeneous, smooth atherosclerotic plaque noted in the right common carotid artery. There is heterogeneous, irregular atherosclerotic plaque noted in the right internal carotid artery. There is intimal thickening but no significant atherosclerotic plaque noted in the right external carotid artery. Antegrade flow is noted in the right vertebral artery. Left Extracranial There is homogeneous, smooth atherosclerotic plaque noted in the left common carotid artery. There is heterogeneous, irregular atherosclerotic plaque noted in the left internal carotid artery. There is intimal thickening but no significant atherosclerotic plaque noted in the left external carotid artery. Antegrade flow is noted in the left vertebral artery. Procedure Carotid Duplex 52854. This is a Carotid Duplex examination using B-mode, color flow and specral Doppler. Exam performed in department. VL/Carotid Duplex Ultrasound Interpretation Summary Irregular calcific plaque at the proximal right internal carotid artery with le ss than 50% stenosis Less than 50% stenosis right external carotid artery Irregular plaque at the proximal left internal carotid artery with less than 50 % stenosis Less than 50% stenosis left external carotid artery Patent and antegrade vertebral arteries bilaterally Ordering Physician: Ember Lan Referring Physician: Alexi Morin Chi Performed By: Mariposa Elizabeth RVT
== END 2021-05-19 23:59 | disposition short-term general hospital (02) ==
LOC: CVS 08:32
PROVIDERS: PCP Family Medicine Geriatric Medicine; Referring Provider Physician Assistant Medical; Visit Provider Physician Assistant Medical
DX: I48.91 Unspecified atrial fibrillation (principal); R42 Dizziness and giddiness
CPT/HCPCS: 93225; 93226; 93880

== ENCOUNTER 2021-06-09 14:40 | Outpatient (CLI) | payer MEDICARE, SELFPAY ==
[2021-03-16 14:15] VITALS: BMI 37.3
[2021-06-09 15:38] LABS: Absolute Lymphocyte Count 1.55 X10^3/uL (0.83-4.51); Absolute Neutrophil Count 4.8 X10^3/uL (2.0-7.7); Basophil# 0.05 X10^3/uL; Basophil% 0.7 % (0-1); Eosinophils% 2.8 % (0-5); Hematocrit 39.9 % (37-47); Hemoglobin 13.1 g/dL (12.0-15.0); Lymphocyte # 1.55 X10^3/ul (0.83-4.51); Lymphocyte % 21.4 % (19-41); Mean Corp Hgb Conc 32.8 g/dL (32-36); Mean Corpuscular Hgb 27.9 pg (27.0-32.0); Mean Corpuscular Volume 84.9 fL (81-99); Mean Platelet Vol. 10.1 fl (6.2-12.0); Monocyte# 0.63 X10^3/uL; Monocyte% 8.7 % (0-10); NRBC Flagged by Analyzer 0 % (0-5); Neutrophil # 4.75 X10^3/uL (2.7-7.7); Neutrophil % 65.6 % (47-70); Platelet Count 358 K/mm3 (150-450); RBC Distribution Width CV 15.2 % (11.6-14.6); White Blood Count 7.2 K/mm3 (4.4-11.0)
[2021-06-09 15:56] LABS: Vitamin D,25 Hydroxy 37.6 ng/mL
[2021-06-09 16:06] LABS: ALB/GLOB Ratio 0.7 RATIO (0.9-2.4); AST(SGOT) 28 U/L (15-37); Alanine Aminotransfer ALT/SGPT 29 U/L (13-56); Albumin, Serum 3.2 g/dL (3.2-5.0); Alkaline Phosphatase 128 U/L (45-117); Anion Gap 3 (5-15); BUN 23 mg/dL (7-18); BUN/Creat Ratio 23.6 RATIO (10-20); Calcium,Total 9.1 mg/dL (8.5-10.1); Chloride 107 mmol/L (98-107); Creatinine, Serum 0.98 mg/dL (0.55-1.02); EST Glomerular Filtration Rate 59 mL/min (>60); Est Glom Filt Rate - Afr Amer 72 mL/min (>60); Globulin 4.5 g/dL (2.2-4.2); Glucose 85 mg/dL (74-106); Protein, Total 7.7 g/dL (6.4-8.2); Sodium Level 140 mmol/L (136-145)
== END 2021-06-09 23:59 | disposition home or self-care (01) ==
LOC: POLAB3 14:41
PROVIDERS: PCP Family Medicine Geriatric Medicine; Visit Provider Family Medicine Geriatric Medicine
DX: E55.9 Vitamin D deficiency, unspecified (principal); I10 Essential (primary) hypertension
CPT/HCPCS: 36415; 80053; 82306; 84443; 85025

== ENCOUNTER 2021-07-03 08:18 | Emergency (ER) | payer MEDICARE, SELFPAY ==
[2021-03-16 14:15] VITALS: BMI 37.3
[2021-07-03 08:19] VITALS: BP 165/94; PULSE 68; RESP 18; TEMP 36; O2SAT 95; BMI 37.8
[2021-07-03] MEDS: Oxymetazoline 0.05% 1 SPRAY SPRAY.BTL NASAL (09:02)
--- NOTE | 2021-07-03 10:15 | EDS_ITS ---
HPI HPI - URI History of Present Illness Chief Complaint: Nosebleed Narrative Narrative: 76-year-old female presenting with epistaxis which is now resolved. She states it started on the right side and then went to the left. Patient states she is on Brilinta and Eliquis currently. She denies any digital trauma. She states she is an ice pack and held her nose to stop the bleeding. She has not had any bleeding in 30 minutes. Patient denies any other symptoms ROS ROS ED Constitutional Constitutional ED: Denies fever(s) or subjective Eyes Eyes: Denies blurry vision or diplopia ENT ENT ED: Reports other Details: Resolved epistaxis Cardiovascular Cardiovascular: Denies chest pain Respiratory/Chest Respiratory/Chest: Denies cough or dyspnea Gastrointestinal Gastrointestinal: Denies abdominal pain Genitourinary Genitourinary ED: Denies dysuria Musculoskeletal Musculoskeletal: Denies arthralgias or myalgias Integumentary Denies rash Neurologic Neurologic: Denies headache(s) or weakness Psychiatric Psychiatric: Denies anxiety or depression PFSH PFS Medical History Arthritis Atherosclerosis of coronary artery of [place] heart without angina pectoris Atrial fibrillation Back pain Bilateral edema of lower extremity Bone fracture Breast lump in female Cardiac arrest Cataracts, bilateral Chronic venous insufficiency of lower extremity Contusion of right lower leg, sequela Depression Fibromyalgia Gastroesophageal reflux disease Generalized osteoarthritis GERD (gastroesophageal reflux disease) Hemorrhoids History of back problems HTN (hypertension) Hyperlipidemia Hypokalemia Incontinence Left breast lump Myocardial infarct Neuropathy of right lower extremity Obesity Osteoarthritis of knee Rheumatoid arthritis Shoulder pain UTI (urinary tract infection) Vitamin deficiency Home Medications cholecalciferol (vitamin D3) 25 mcg PO DAILY 04/29/20 [History Last Taken 11/16/20 09:00 1000 units] acetaminophen [Tylenol] 650 mg PO Q4H PRN PRN #1 tab 11/19/20 [Rx Last Taken Unknown] citalopram 10 mg PO DAILY #30 tab 12/05/20 [Rx Last Taken Unknown] nitroglycerin 0.4 mg SUBLINGUAL Q5M PRN #1 bottle 12/05/20 [Rx Last Taken Unknown] atorvastatin 40 mg tablet 40 mg PO QHS #90 tab 12/15/20 [Rx Last Taken Unknown] losartan 50 mg tablet 50 mg PO DAILY #90 tab 12/15/20 [Rx Last Taken Unknown] apixaban 5 mg tablet 5 mg PO BID #60 tab 03/03/21 [Rx Last Taken Unknown] ticagrelor 90 mg tablet 90 mg PO BID 05/10/21 [History Last Taken Unknown] albuterol sulfate 90 mcg/actuation aerosol inhaler 1 puff INHALATION ONCE PRN 06/29/21 [History Last Taken Unknown] famotidine 20 mg tablet 20 mg PO DAILY PRN 06/29/21 [History Last Taken Unknown] isosorbide mononitrate 30 mg tablet,extended release 24 hr 30 mg PO DAILY #30 tab 06/29/21 [Rx Last Taken Unknown] metoprolol succinate 25 mg tablet,extended release 24 hr 25 mg PO BID tab 06/29/21 [History Last Taken Unknown] potassium chloride 10 mEq tablet,extended release 10 meq PO BID tab 06/29/21 [History Last Taken Unknown] Allergy/AdvReac Type Severity Reaction Status Date / Time bee pollen Allergy Anaphylaxis Verified 07/03/21 08:21 latex Allergy Swelling Verified 07/03/21 08:21 morphine Allergy Other Verified 07/03/21 08:21 Penicillins Allergy Hives Verified 07/03/21 08:21 hydrocodone bitartrate AdvReac Abd Verified 07/03/21 08:21 [From Vicodin] cramps/diarrhea Family History Father Diabetes Heart disease Hypertension CVA (cerebral vascular accident) Parkinson disease Mother Breast cancer Hypertension Grandmother Cancer pancreatic cancer Ovarian cancer Son Anesthesia complication Brother Asthma Arthritis Diabetes Respiratory disease Grandfather Lung cancer CVA (cerebral vascular accident) Surgical History Hematoma history bilateral breast biopsies History of bilateral knee replacement History of cataract surgery History of coronary artery stent placement (11/16/20) History of hysterectomy History of laparoscopic cholecystectomy History of left breast biopsy (~11/2017) History of repair of right rotator cuff History of tonsillectomy and adenoidectomy Hx of appendectomy Social History household members: spouse Smoking Status: Never smoker alcohol intake: never substance use type: does not use additional social history: DOES USE ASPIRIN DOES NOT USE IBUPROFEN EXAM Physical Exam Const Vital Signs: 07/03/21 08:19 Temperature 96.8 F L Temperature Source Temporal Pulse Rate 68 Respiratory Rate 18 Blood Pressure 165/94 H Blood Pressure Mean 117 Pulse Ox 95 Oxygen Delivery Method Room Air Positive well nourished General Appearance ED: NAD; Negative for pallor HEENT normocephalic and atraumatic Nose: external nose normal, nares normal, nasal mucous membranes and turbinates normal, septum normal and no nasal discharge; Negative for epistaxis Throat: posterior oropharynx normal and other Other Details: No blood in posterior oropharynx Eyes PERRL General Eye ED: Negative for pale conjunctiva or scleral icterus Neck no lymphadenopathy and supple Resp normal respiratory effort and clear to auscultation bilaterally Cardio Rate: regular rate Rhythm: regular rhythm Neuro oriented x3 and CN's II-XII intact bilaterally Sensorium / Orientation: alert Psych mental status grossly normal Skin General Skin Exam: Negative for jaundice or pallor MDM MDM MDM Narrative Medical decision making narrative: Patient's epistaxis is resolved. There is no blood in the nares and there is no blood in the posterior oropharynx. Patient has normal vital signs and feeling well. I do not believe she needs further treatment at this time. Patient states she is followed up with Dr. Gaytan in the past. Patient discharged in stable condition. Impression: 1. Epistaxis resolved Discharge Plan Triage Chief Complaint: Nosebleed ED Provider: Loco Dejesus Dx/Rx/DC Orders Instructions: Nosebleed Prescriptions: No Action atorvastatin 40 mg tablet 40 mg PO QHS Qty: 90 RF: 3 losartan 50 mg tablet 50 mg PO DAILY Qty: 90 RF: 3 Brilinta 90 mg tablet 90 mg PO BID RF: 0 albuterol sulfate 90 mcg/actuation HFA aerosol inhaler 1 puff inhalation ONCE PRNRF: 0 Eliquis 5 mg tablet 5 mg PO BID Qty: 60 RF: 11 potassium chloride 10 mEq tablet extended release 10 meq PO BID RF: 0 isosorbide mononitrate 30 mg tablet extended release 24 hr 30 mg PO DAILY Qty: 30 RF: 11 cholecalciferol (vitamin D3) 1,000 UNIT tablet 25 mcg PO DAILY RF: 0 acetaminophen [Tylenol] 325 mg Tablet 650 mg PO Q4H PRN PRN (Reason: Fever, pain 1-01/30) Qty: 1 RF: 0 citalopram 10 mg Tablet 10 mg PO DAILY Qty: 30 RF: 0 nitroglycerin 0.4 mg Tablet, Sublingual 0.4 mg sublingual Q5M PRN (Reason: Cardiac/Chest Pain) Qty: 1 RF: 0 famotidine 20 mg tablet 20 mg PO DAILY PRN (Reason: GERD) RF: 0 metoprolol succinate 25 mg tablet extended release 24 hr 25 mg PO BID RF: 0 Primary Care Provider: Alexi Morin Chi Referrals: Campos Gaytan MD [STAFF PHYSICIAN] - As soon as possible Alexi Morin Chi, MD [Primary Care Provider] - Disposition Disposition: Home, Self Care Discharge Date/Time: 07/03/21 09:22
== END 2021-07-03 09:22 | disposition home or self-care (01) ==
PROVIDERS: Emergency Provider Student in an Organized Health Care Education/Training Program; PCP Family Medicine Geriatric Medicine; Visit Provider Student in an Organized Health Care Education/Training Program
DX: R04.0 Epistaxis (principal); I25.10 Atherosclerotic heart disease of native coronary artery without angina pectoris; E78.5 Hyperlipidemia, unspecified; I10 Essential (primary) hypertension; K21.9 Gastro-esophageal reflux disease without esophagitis; M79.7 Fibromyalgia; Z95.5 Presence of coronary angioplasty implant and graft
CPT/HCPCS: 99282

== ENCOUNTER 2021-07-07 14:13 | Emergency (ER) | payer MEDICARE, SELFPAY ==
[2021-03-16 14:15] VITALS: BMI 37.3
[2021-07-07 14:14] VITALS: BP 132/78; PULSE 75; RESP 16; TEMP 36.7; O2SAT 95; BMI 379.4
--- NOTE | 2021-07-07 15:26 | EDS_ITS ---
HPI <FARZANEH Rosado - Last Filed: 07/07/21 17:22> History of Present Illness Chief Complaint: Nosebleed Narrative Narrative: 76-year-old female presents with a nosebleed. She states she had a nosebleed a few days ago that resolved without intervention. Today around 8 AM while lying in bed she felt a few drops of blood in the back of her mouth. When she got up her nose continued to drip blood slowly from both nostrils. She used an ice pack on her nose and neck which helped. It stopped after 2 hours and then restarted again. She takes Eliquis, Brilinta, and aspirin for maximal medical therapy for CAD. She she called Dr. Castano's office today and they recommended she come to the ED. He also recommended stopping her Eliquis until Sunday. One hour prior to arrival to the ED her nosebleed stopped. She otherwise feels well. No dizziness, lightheadedness, hemoptysis, hematemesis, or blood in stool or urine. PFSH <FARZANEH Rosado - Last Filed: 07/07/21 17:22> [facility] Medical History Arthritis Atherosclerosis of coronary artery of [place] heart without angina pectoris Atrial fibrillation Back pain Bilateral edema of lower extremity Bone fracture Breast lump in female Cardiac arrest Cataracts, bilateral Chronic venous insufficiency of lower extremity Contusion of right lower leg, sequela Depression Fibromyalgia Gastroesophageal reflux disease Generalized osteoarthritis GERD (gastroesophageal reflux disease) Hemorrhoids History of back problems HTN (hypertension) Hyperlipidemia Hypokalemia Incontinence Left breast lump Myocardial infarct Neuropathy of right lower extremity Obesity Osteoarthritis of knee Rheumatoid arthritis Shoulder pain UTI (urinary tract infection) Vitamin deficiency Home Medications cholecalciferol (vitamin D3) 25 mcg PO DAILY 04/29/20 [History Last Taken 11/16/20 09:00 1000 units] acetaminophen [Tylenol] 650 mg PO Q4H PRN PRN #1 tab 11/19/20 [Rx Last Taken Unknown] citalopram 10 mg PO DAILY #30 tab 12/05/20 [Rx Last Taken Unknown] nitroglycerin 0.4 mg SUBLINGUAL Q5M PRN #1 bottle 12/05/20 [Rx Last Taken Unknown] atorvastatin 40 mg tablet 40 mg PO QHS #90 tab 12/15/20 [Rx Last Taken Unknown] losartan 50 mg tablet 50 mg PO DAILY #90 tab 12/15/20 [Rx Last Taken Unknown] apixaban 5 mg tablet 5 mg PO BID #60 tab 03/03/21 [Rx Last Taken Unknown] ticagrelor 90 mg tablet 90 mg PO BID 05/10/21 [History Last Taken Unknown] albuterol sulfate 90 mcg/actuation aerosol inhaler 1 puff INHALATION ONCE PRN 06/29/21 [History Last Taken Unknown] famotidine 20 mg tablet 20 mg PO DAILY PRN 06/29/21 [History Last Taken Unknown] isosorbide mononitrate 30 mg tablet,extended release 24 hr 30 mg PO DAILY #30 tab 06/29/21 [Rx Last Taken Unknown] metoprolol succinate 25 mg tablet,extended release 24 hr 25 mg PO BID tab 06/29/21 [History Last Taken Unknown] potassium chloride 10 mEq tablet,extended release 10 meq PO BID tab 06/29/21 [History Last Taken Unknown] Allergy/AdvReac Type Severity Reaction Status Date / Time bee pollen Allergy Anaphylaxis Verified 07/07/21 14:15 latex Allergy Swelling Verified 07/07/21 14:15 morphine Allergy Other Verified 07/07/21 14:15 Penicillins Allergy Hives Verified 07/07/21 14:15 hydrocodone bitartrate AdvReac Abd Verified 07/07/21 14:15 [From Vicodin] cramps/diarrhea Family History Father Diabetes Heart disease Hypertension CVA (cerebral vascular accident) Parkinson disease Mother Breast cancer Hypertension Grandmother Cancer pancreatic cancer Ovarian cancer Son Anesthesia complication Brother Asthma Arthritis Diabetes Respiratory disease Grandfather Lung cancer CVA (cerebral vascular accident) Surgical History Hematoma history bilateral breast biopsies History of bilateral knee replacement History of cataract surgery History of coronary artery stent placement (11/16/20) History of hysterectomy History of laparoscopic cholecystectomy History of left breast biopsy (~11/2017) History of repair of right rotator cuff History of tonsillectomy and adenoidectomy Hx of appendectomy Social History household members: spouse Smoking Status: Never smoker alcohol intake: never substance use type: does not use additional social history: DOES USE ASPIRIN DOES NOT USE IBUPROFEN ROS <FARZANEH Rosado - Last Filed: 07/07/21 17:22> ROS ED ROS Narrative Constitutional: Negative for fever, chills, malaise. Eyes: Negative for visual change. ENT: Positive for epistaxis. Negative for sore throat, rhinorrhea. CVS: Negative for palpitations, chest pain, syncope. Respiratory: Negative for shortness of breath, cough, orthopnea. GI: Negative for abdominal pain, nausea, vomiting, diarrhea, constipation, melena, hematochezia. : Negative for dysuria, hematuria or frequency. Neuro: Negative for headache, motor/sensory dysfunction. Skin: Negative for rash, abscess, or wound. Musc: Negative for joint pain, swelling, trauma. Heme: Negative for easy bruising, bleeding, lymphadenopathy. EXAM <FARZANEH Rosado - Last Filed: 07/07/21 17:22> Physical Exam Narrative Exam Narrative: CONST: Patient sitting in no acute distress. EYES: Normal inspection. ENT: Normal inspection, nares clear with no evidence of dried blood or bleeding, normal posterior oropharynx. NECK: Normal inspection. RESP: No respiratory distress, CTAB. CVS: Regular rate and rhythm, no murmur, no gallop. SKIN: Color normal, no rash, warm, dry, intact. EXTREMITIES: Normal appearance, no pedal edema. NEURO: Oriented x4. PSYCH: Normal affect. Const Vital Signs: 07/07/21 14:14 Temperature 98.1 F Temperature Source Temporal Pulse Rate 75 Respiratory Rate 16 Blood Pressure 132/78 H Blood Pressure Mean 96 Pulse Ox 95 Oxygen Delivery Method Room Air <Dr. Campos Tomlin, DO - Last Filed: 07/07/21 17:31> Physical Exam Const Vital Signs: 07/07/21 14:14 Temperature 98.1 F Temperature Source Temporal Pulse Rate 75 Respiratory Rate 16 Blood Pressure 132/78 H Blood Pressure Mean 96 Pulse Ox 95 Oxygen Delivery Method Room Air MDM <FARZANEH Rosado - Last Filed: 07/07/21 17:22> MDM MDM Narrative Medical decision making narrative: Patient presents with a nosebleed on anticoagulation. She appears well nontoxic. Vital signs within normal limits He re she is not actively bleeding. Initially there was no evidence of dried blood or visualized blood vessels in the nares. Posterior oropharynx is normal. Patient was given Afrin as a preventive measure and observed and but when getting up to use the restroom had drops of blood from her left nostril. Upon reexamination there is a small anterior blood vessel on the lateral aspect that was not actively bleeding. It was cauterized with a silver nitrate stick. She was monitored and had no further bleeding. She already spoke with her tinning equipment tender this morning who recommended holding her Eliquis until Sunday. She will continue the Brilinta and aspirin. Patient was counseled to return for rebleeding if it does not stop with symptomatic treatment at home and she was discharged in stable condition. #1. Epistaxis on anticoagulation <Dr. Campos Tomlin, DO - Last Filed: 07/07/21 17:31> [facility] Narrative Medical decision making narrative: Patient was seen with me. I did a [id number] examination with the patient. I agree with the history and physical examination. I was present during [place] portions of the procedure. Patient presents with epistaxis that became worse today. Patient states she was having bleeding from her left nares today. Patient states has started going out the right nares as well. Patient states she was able to get it to slow down prior to coming to the emergency department. Patient states that after slow down it was only out of the left nares. Patient denies any trauma or injury. Patient is on Brilinta and Eliquis. Vital signs are stable. Patient is afebrile. Patient is in no acute distress. There is some mild bleeding from the left anterior nasal septum. There is no septal deviation or septal hematoma. There is no tenderness. There is no edema or ecchymosis. There is no post nasal bleeding. Oropharynx is clear. Neck is supple. Trachea is midline. There is no JVD. Heart was regular rate and rhythm. Lungs are clear and equal bilaterally. Cranial nerves II through XII are intact. There are no focal motor or sensory deficits. The left anterior nasal septum was cauterized with silver nitrate. Bleeding was stopped. There has been no recurrence of bleeding. Patient tolerated the procedure well. Patient was instructed to follow-up with her primary care physician in 5 to 7 days. Patient was instructed return if worse in any way. Patient understood and was agreeable with the plan. All questions were answered. Discharge Plan Triage Chief Complaint: Nosebleed ED Provider: Amy Hameed Dx/Rx/DC Orders Clinical Impression: Epistaxis Instructions: ED Epistaxis (Adult) Prescriptions: No Action atorvastatin 40 mg tablet 40 mg PO QHS Qty: 90 RF: 3 losartan 50 mg tablet 50 mg PO DAILY Qty: 90 RF: 3 Brilinta 90 mg tablet 90 mg PO BID RF: 0 albuterol sulfate 90 mcg/actuation HFA aerosol inhaler 1 puff inhalation ONCE PRNRF: 0 Eliquis 5 mg tablet 5 mg PO BID Qty: 60 RF: 11 Hold Instructions: Nosebleed potassium chloride 10 mEq tablet extended release 10 meq PO BID RF: 0 isosorbide mononitrate 30 mg tablet extended release 24 hr 30 mg PO DAILY Qty: 30 RF: 11 cholecalciferol (vitamin D3) 1,000 UNIT tablet 25 mcg PO DAILY RF: 0 acetaminophen [Tylenol] 325 mg Tablet 650 mg PO Q4H PRN PRN (Reason: Fever, pain 1-01/30) Qty: 1 RF: 0 citalopram 10 mg Tablet 10 mg PO DAILY Qty: 30 RF: 0 nitroglycerin 0.4 mg Tablet, Sublingual 0.4 mg sublingual Q5M PRN (Reason: Cardiac/Chest Pain) Qty: 1 RF: 0 famotidine 20 mg tablet 20 mg PO DAILY PRN (Reason: GERD) RF: 0 metoprolol succinate 25 mg tablet extended release 24 hr 25 mg PO BID RF: 0 Primary Care Provider: Alexi Morin Chi Referrals: Alexi Morin Chi, MD [Primary Care Provider] - Activity Restrictions/Additional Instructions: Do not take your Eliquis until Sunday as instructed by your tinning equipment tender. Continue your other medications as prescribed. If rebleeding occurs try 2 sprays of Afrin in each nostril and your nasal clamp. If you cannot get the bleeding to stop come back to the ER. Disposition Disposition: Home, Self Care
[2021-07-07] MEDS: Oxymetazoline 0.05% 1 SPRAY SPRAY.BTL 2 SPRAY NASAL (15:37)
== END 2021-07-07 17:35 | disposition home or self-care (01) ==
PROVIDERS: Emergency Provider Physician Assistant; PCP Family Medicine Geriatric Medicine; Visit Provider Physician Assistant
DX: R04.0 Epistaxis (principal); I25.10 Atherosclerotic heart disease of native coronary artery without angina pectoris; Z79.01 Long term (current) use of anticoagulants; Z79.82 Long term (current) use of aspirin; Z95.5 Presence of coronary angioplasty implant and graft
CPT/HCPCS: 99282

== ENCOUNTER 2021-07-22 07:21 | Day surgery (SDC) | payer MEDICARE, SELFPAY ==
[2021-03-16 14:15] VITALS: BMI 37.3
[2021-07-11 12:17] LABS: Absolute Lymphocyte Count 1.18 X10^3/uL (0.83-4.51); Absolute Neutrophil Count 5.3 X10^3/uL (2.0-7.7); Basophil# 0.05 X10^3/uL; Basophil% 0.7 % (0-1); Eosinophil# 0.21 X10^3/uL; Eosinophils% 2.9 % (0-5); Hematocrit 33.9 % (37-47); Lymphocyte # 1.18 X10^3/ul (0.83-4.51); Lymphocyte % 16.3 % (19-41); Mean Corp Hgb Conc 32.4 g/dL (32-36); Mean Corpuscular Hgb 27.2 pg (27.0-32.0); Mean Corpuscular Volume 83.7 fL (81-99); Mean Platelet Vol. 9.4 fl (6.2-12.0); Monocyte# 0.45 X10^3/uL; Monocyte% 6.2 % (0-10); NRBC Flagged by Analyzer 0 % (0-5); Neutrophil % 73.3 % (47-70); Platelet Count 303 K/mm3 (150-450); RBC Distribution Width CV 15.7 % (11.6-14.6); RBC Distribution Width SD 47.4 fl (35.1-43.9); Red Blood Count 4.05 M/mm3 (4.2-5.4); White Blood Count 7.2 K/mm3 (4.4-11.0)
[2021-07-11 12:26] LABS: International Normalized Ratio 1.2; Prothrombin Time (Protime)PT. 14.9 SECONDS (11.7-14.9)
--- NOTE | 2021-07-11 12:35 | RAD_ITS ---
STUDY: X-RAY CHEST REASON FOR EXAM: Female, 76 years old. Preoperative TECHNIQUE: PA and lateral views of the chest. COMPARISON: 11/25/2020 FINDINGS: The lungs are clear and expanded. There is no demonstrated pleural abnormality. Normal size heart. Normal mediastinum and sung. Normal visualized pulmonary arteries. Normal visualized aortic arch and descending thoracic aorta. Normal visualized thoracic spine. Normal visualized ribs, clavicles, and shoulders. There is no demonstrated abnormality of the visualized soft tissue structures of the upper abdomen. RAD/Chest PA and Lateral IMPRESSION: Normal x-ray examination of the chest. Electronically Signed: Omar Tobar DO at 16:51 EDT ,
[2021-07-11 12:59] LABS: Anion Gap 5 (5-15); BUN 17 mg/dL (7-18); BUN/Creat Ratio 19.2 RATIO (10-20); Calcium,Total 9.6 mg/dL (8.5-10.1); Chloride 109 mmol/L (98-107); Creatinine, Serum 0.89 mg/dL (0.55-1.02); EST Glomerular Filtration Rate 66 mL/min (>60); Est Glom Filt Rate - Afr Amer 80 mL/min (>60); Glucose 124 mg/dL (74-106); Potassium 3.9 mmol/L (3.5-5.1); Sodium Level 141 mmol/L (136-145)
[2021-07-21 07:01] VITALS: BMI 38.2
--- NOTE | 2021-07-21 11:41 | PCM.HP.BLA ---
History and Physical Date of Admission: 07/22/21 [facility] [address] [place] [address] [phone] OFFICE VISITDate of Service: 06/29/21 MR#:[id number]:[id number]: GLORY MOON LRep #:[id number] Provider: SANTI Barr RoofAge/Sex: 76/F Location:BMS.WHGStatus:Signed HPI HPI History of Present Illness Details: Glory Moon is a 76-year-old female who had a STEMI and cardiac arrest on 11/16/20. She had ROSC and [facility] by Dr. Topete. She had a 99% stenosis in the LAD and 90% stenosis in the diagonal branch of the LAD. She underwent drug-eluting stent placement to the LAD and PTCA alone of the diagonal branch. Echocardiogram on 11/17/2020 showed an estimated ejection fraction of 35% with diastolic dysfunction. There were wall motion abnormalities in the apex, anterior wall and distal septum with hypokinesis. She was placed on Brilinta, ASA, beta jannet, statin and an FELIZ. While in cardiac rehab, she had episode of paroxysmal atrial fibrillation. Metoprolol was increased. She underwent a stress test on 02/11/2021 that was normal and showed a preserved ejection fraction. She does acknowledge sharp chest discomfort and chest pressure sensation. This occurs randomly. This is not necessarily exertional related. This is located midsternal and left-sided chest. She acknowledges palpitations all the time that she describes as fast. She describes this as a anxious feeling. She acknowledges shortness of breath with activity and shortness of breath at rest. She denies orthopnea, cough, or PND. She acknowledges lightheadedness and headache. She denies dizziness, near-syncope, or syncope. She acknowledges fatigue. Intake Vital Signs 06/29/21 13:55 Height 5 ft Weight: 196 lb BMI 38.2 BP 128/74 H Blood Pressure Location Lt brachial Position Sitting Respiration 18 Pulse 60 Pulse Source Auscultation Intake Visit Reasons: CP, SOB, nausea [employer] Taxation Inspector Required: No Accompanied by: Is patient in pain?: No Allergies bee pollen Allergy (Verified 06/29/21 14:04) Anaphylaxis latex Allergy (Verified 06/29/21 14:04) Swelling morphine Allergy (Verified 06/29/21 14:04) Other Penicillins Allergy (Verified 06/29/21 14:04) Hives hydrocodone bitartrate [From Vicodin] Adverse Reaction (Verified 06/29/21 14:04) Abd cramps/diarrhea Medications cholecalciferol (vitamin D3) 25 mcg PO DAILY 04/29/20 [History Confirmed 06/29/21] acetaminophen [Tylenol] 650 mg PO Q4H PRN PRN #1 tab 11/19/20 [Rx Confirmed 06/29/21] citalopram 10 mg PO DAILY #30 tab 12/05/20 [Rx Confirmed 06/29/21] nitroglycerin 0.4 mg SUBLINGUAL Q5M PRN #1 bottle 12/05/20 [Rx Confirmed 06/29/21] atorvastatin 40 mg tablet 40 mg PO QHS #90 tab 12/15/20 [Rx Confirmed 06/29/21] losartan 50 mg tablet 50 mg PO DAILY #90 tab 12/15/20 [Rx Confirmed 06/29/21] apixaban 5 mg tablet 5 mg PO BID #60 tab 03/03/21 [Rx Confirmed 06/29/21] ticagrelor 90 mg tablet 90 mg PO BID 05/10/21 [History Confirmed 06/29/21] albuterol sulfate 90 mcg/actuation aerosol inhaler 1 puff INHALATION ONCE PRN 06/29/21 [History Confirmed 06/29/21] famotidine 20 mg tablet 20 mg PO DAILY PRN 06/29/21 [History Confirmed 06/29/21] isosorbide mononitrate 30 mg tablet,extended release 24 hr 30 mg PO DAILY #30 tab 06/29/21 [Rx Confirmed 06/29/21] metoprolol succinate 25 mg tablet,extended release 24 hr 25 mg PO BID tab 06/29/21 [History Confirmed 06/29/21] potassium chloride 10 mEq tablet,extended release 10 meq PO BID tab 06/29/21 [History Confirmed 06/29/21] Ejection fraction %: 55 to 59 PFSH Medical History Arthritis Atherosclerosis of coronary artery of [place] heart without angina pectoris Atrial fibrillation Back pain Bilateral edema of lower extremity Bone fracture Breast lump in female Cardiac arrest Cataracts, bilateral Chronic venous insufficiency of lower extremity Contusion of right lower leg, sequela Depression Fibromyalgia Gastroesophageal reflux disease Generalized osteoarthritis GERD (gastroesophageal reflux disease) Hemorrhoids History of back problems HTN (hypertension) Hyperlipidemia Hypokalemia Incontinence Left breast lump Myocardial infarct Neuropathy of right lower extremity Obesity Osteoarthritis of knee Rheumatoid arthritis Shoulder pain UTI (urinary tract infection) Vitamin deficiency Surgical History Hematoma history bilateral breast biopsies History of bilateral knee replacement History of cataract surgery History of coronary artery stent placement (11/16/20) History of hysterectomy History of laparoscopic cholecystectomy History of left breast biopsy (~11/2017) History of repair of right rotator cuff History of tonsillectomy and adenoidectomy Hx of appendectomy Family History Father Diabetes Heart disease Hypertension CVA (cerebral vascular accident) Parkinson disease Mother Breast cancer Hypertension Grandmother Cancer pancreatic cancer Ovarian cancer Son Anesthesia complication Brother Asthma Arthritis Diabetes Respiratory disease Grandfather Lung cancer CVA (cerebral vascular accident) Social History household members: spouse Smoking Status: Never smoker alcohol intake: never substance use type: does not use additional social history: DOES USE ASPIRIN DOES NOT USE IBUPROFEN ROS Const Const: Positive for fatigue, headache(s) and daytime sleepiness; Negative for weakness, frequent falls, difficulty sleeping or excessive sweating Eyes Eyes: Negative for loss of peripheral vision, transient loss of vision, blurry vision, double vision or tunnel vision ENT ENT: Positive for headache(s) and balance problems; Negative for dizziness or Nosebleed/epistaxis Cardio Chest Pain: Yes Frequency: more than once a day Character: sharp (Sharp pain x 1) and other (pressure constant,) Onset: other (Randomly) Location: mid sternal and left chest Duration: continuous Palpitations: Yes (all of the time) feels like its: fast Edema: Right Muscle aches with walking: None Resp Respiratory: Positive for SOB with activity and SOB at rest; Negative for SOB orthopnea\SOB lying down, Cough or paroxysmal nocturnal dyspnea GI GI: Negative nausea, vomiting, heartburn or black,tarry stools : Negative for hematuria Musc Musc: Positive for balance problems; Negative for muscle aches/ myalgia, muscle weakness or joint pain Skin Skin: Negative non-healing lesions, rash or unusual bruising Neuro Neuro: Positive for lightheadedness and headache(s); Negative for dizziness, near syncope, syncope, frequent falls, weakness, blurry vision, double vision or lack of coordination Tad Hematologic/Lymphatic: Negative for easy bleeding or easy bruising Endo Endo: Positive for fatigue; Negative for excessive sweating or increased thirst/drinking Psych Psych: Negative for anxiety or depression Allergy Allergy/Immunology: Negative for hives and Negative for rash Cardiology Exam Const Appearance: cooperative, healthy appearing, comfortable and no acute distress Nutritional Appearance: well nourished and obese Orientation: alert, awake and oriented x3 Head Head: normal to inspection Ears: hearing grossly normal bilaterally Nose: external nose normal Face and Sinus: face symmetric Mouth: oral mucosae normal Eyes General: appearance normal, both eyes and all related structures Eyelids: eyelids normal EOM: EOM intact bilaterally Neck Neck: normal visual inspection and no JVD Carotids: normal carotid upstroke Chest Chest inspection: normal inspection of the chest, symmetric chest movement and normal respiratory effort; Negative cough Auscultation: Bilateral: Clear to Auscultation Cardio Rate: regular rate Rhythm: regular rhythm Heart sounds: S1 normal and S2 normal; Negative rub, gallop or murmur GI GI: normal to inspection and obese Neuro General: patient alert, patient awake, patient oriented x3 and CN's II-XI intact bilaterally Skin Skin: no rashes or lesions noted Extremities Pulses: Normal: Right Posterior Tibial Pulse, Left Posterior Tibial Pulse, Right Radial Pulse and Left Radial Pulse Lower Extremity Edema: None: Bilateral Psych Psychological: normal affect Supplemental Info Supplemental Information Echocardiogram 02/2021: Left ventricular systolic function is normal. The estimated ejection fraction is 55 %. Mild focal aortic valve thickening. Echocardiogram 10/2020: The estimated ejection fraction is 35 %. There is evidence of diastolic dysfunction. Hypokinesis of the apex, anterior wall, distal septum Heart cath 10/2020: CAD as described. No significant . Successful PCI of mLAD/D1 with OTIS to mLAD and PTCA to D1. CORONARY ANGIOGRAPHY DOMINANCE: Right Dominant LEFT HEART ASSESSMENT LEFT MAIN: No significant disease noted LEFT ANTERIOR DESCENDING ARTERY: MID LAD: 99 % Stenosis DIAGONAL 1: Ostial - 90 % Stenosis CIRCUMFLEX ARTERY: Mild luminal irregularities RIGHT CORONARY ARTERY: OSTIAL RCA: 25 % Stenosis MID RCA: 40 % Stenosis VALVE FINDINGS: No Aortic Valve Stenosis INTERVENTION INFORMATION LESION SITE: LAD (Mid) Lesion Complexity: High/C, chronic total occlusion: No, lesion at bifurcation: Yes, thrombus present: No, lesion length: 20 mm, culprit lesion: Yes, Previously treated lesion: No Pre Stenosis: 99 % Pre intervention MAYRA flow: 2 PROCEDURE: Drug Eluting Stent with pre dilatation. Post Stenosis: 0 % Post intervention MAYRA flow: 3 Lesion Devices: Cardinal 6 Fr XB3.0 100cm Guide Catheter Ascencio .014 BMW [place] Straight 190cm Oziel Sci EMERGE MR 2.50x12 BALLOON Terumo .014 Runthrough Extra Floppy 180cm straight Biotronik Orsiro MR OTIS 3.0x22 LESION SITE: 1st Diagonal (Ostial) Lesion Complexity: High/C, chronic total occlusion: No, lesion at bifurcation: Yes, thrombus present: No, lesion length: 10 mm, culprit lesion: Yes Pre Stenosis: 90 % Pre intervention MAYRA flow: 2 PROCEDURE: Balloon Angioplasty Post Stenosis: 80 % Post intervention MAYRA flow: 3 Lesion Devices: Cardinal 6 Fr XB3.0 100cm Guide Catheter Ascencio .014 [employer] [place] Straight 190cm Terumo .014 Runthrough Extra Floppy 180cm straight Oziel Sci EMERGE MR 1.50x15 BALLOON Stress test from 02/09/2021: Conclusion: Normal pharmacologic myocardial perfusion stress test. Preserved ejection fraction. Labs: No Data to Display Diagnostics: Electrocardiogram Echocardiogram Pulmonary: No Data to Display Assessment and Plan Assessment and Plan (1) History of coronary artery stent placement: Status: Acute Comment: PCI of mLAD/D1 with Orsiro 3.0 x 22 mm OTIS to mLAD and PTCA to D1 11/16/20 Plan - Romero Broderick FINANCIAL SERVICES TECHNICIAN, FINANCIAL SERVICES TECHNICIAN-C: She is status post mid LAD stent placement and first diagonal balloon angioplasty in October 2020. Her stress test in January 2021 was negative for ischemia. Her most recent echocardiogram in February 2021 showed a preserved ejection fraction of 55%. She does describe multiple symptoms concerning for coronary artery disease. There are features that also indicate noncardiac etiology. However, given her symptoms and recent history, we will add isosorbide and see how she responds. If symptoms continue despite medical therapy, we will consider further evaluation. It is noted today that she is currently on Brilinta and Plavix therapy. She was asked to discontinue Plavix therapy. (2) HTN (hypertension): Status: Chronic Qualifiers: Hypertension type: primary hypertension Qualified Code(s): I10 - Essential (primary) hypertension Plan - Romero Broderick FINANCIAL SERVICES TECHNICIAN, FINANCIAL SERVICES TECHNICIAN-C: Patient's blood pressure is well-controlled. We will continue to monitor. Isosorbide is being added to her regimen to assist with symptoms. (3) Hyperlipidemia: Status: Chronic Qualifiers: Hyperlipidemia type: unspecified Qualified Code(s): E78.5 - Hyperlipidemia, unspecified Plan - Romero Broderick FINANCIAL SERVICES TECHNICIAN, FINANCIAL SERVICES TECHNICIAN-C: She will continue risk factor and lifestyle modification. Her lipid panel on 11/17/2020 showed cholesterol: 152, HDL: 36, LDL: 97, and triglycerides: 95. She will continue atorvastatin 40 mg p.o. nightly. Over time, we are primary care provider will reassess lipid panel. (4) Atrial fibrillation: Status: Chronic Qualifiers: Atrial fibrillation type: paroxysmal Qualified Code(s): I48.0 - Paroxysmal atrial fibrillation Plan - Romero Broderick FINANCIAL SERVICES TECHNICIAN, FINANCIAL SERVICES TECHNICIAN-C: Her EKG today in office shows sinus bradycardia without acute ST or T wave changes. She will continue metoprolol succinate for rate control. She will continue Eliquis for CVA protection. We will continue to monitor. (5) Diastolic dysfunction: Status: Chronic Plan - Romero Broderick NP, FINANCIAL SERVICES TECHNICIAN-C: Her echocardiogram in October 2020 showed ejection fraction of 35% and diastolic dysfunction. Her most recent echocardiogram in February 2021 showed ejection fraction of 55%. At this time, she appears to be in a euvolemic state on exam. She will continue current medical therapy and we will continue to monitor Plan Details Other Medications: New: isosorbide mononitrate ER 30 mg PO DAILY 30 tabs 11RF Discontinued: clopidogrel Discontinued Reason: Pt no longer taking 75 mg PO DAILY Other Orders: Orders: 12 [address] performed [address] [facility] [place] [facility] 06/29/21 R07.9 Additional Comments: Thank you for allowing us to participate in the patients plan of care, if you have any questions please do not hesitate to call. This note was generated using a voice recognition system and there may be incorrect words, spelling or punctuation that were not noted when reviewing the office note prior to saving. Portions of this documentation were copied and pasted from previous office visit notes to provide a cohesive continuity of the history. The note has been reviewed, edited, and updated, as necessary. Goals & Barriers: Goals Decrease pain Improve posture Decrease spasm Decrease inflammation Barriers Anterolisthesis of L4 on L5 Facet arthosis Follow Up: Keep as is (PFM) Coding Level of Care Code Off vis,est,level 4 Diagnoses History of coronary artery stent placement Z95.5 HTN (hypertension) I10 Hypertension type: primary hypertension Hyperlipidemia E78.5 Hyperlipidemia type: unspecified Atrial fibrillation I48.0 Atrial fibrillation type: paroxysmal Diastolic dysfunction I51.89 Coding Level of Care Code Off vis,est,level 4 Diagnoses History of coronary artery stent placement Z95.5 HTN (hypertension) I10 Hypertension type: primary hypertension Hyperlipidemia E78.5 Hyperlipidemia type: unspecified Atrial fibrillation I48.0 Atrial fibrillation type: paroxysmal Diastolic dysfunction I51.89 07/01/21 0836<Electronically signed by Romero Broderick NP, NP-C>Date Romero Broderick NP FINANCIAL SERVICES TECHNICIAN-C Cosigner Signature:Date (if applicable) CC: Dr. Alexi Morin MD ~ Assessment & Plan Addt'l Comments Addendum: The patient's case was discussed and reviewed. The patient has continued with concerning chest discomfort and nausea, and shortness of breath. Based upon the patient's cardiovascular history, ongoing concerns, would consider proceeding with further definitive cardiovascular evaluation of her underlying coronary artery status with diagnostic cardiac catheterization. The procedure and risk were discussed with the patient. She was agreeable to this approach. This note was generated using a voice recognition system and there may be incorrect words, spelling or punctuation that were not noted when reviewing the office note prior to saving.
--- NOTE | 2021-07-22 11:39 | CL.D_ITS ---
Patient Name: JIE HENRIQUEZ Study Date: 07/22/2021 Performing: Gallo Castano MD Ht: 60 inches 152 cm : 1945 Wt: 196.5 lbs 89 kg Age: 76 Gender: female BSA: 1.85 PROCEDURE(S) PERFORMED DC01-(89838)LHC/COR/LV IC10-([id number])FFR, CORONARY OR GRAFT, INITIAL VESSEL IC11-([id number])FFR, CORONARY OR GRAFT, EACH ADD'L VESSEL CLINICAL PROFILE AND INDICATIONS Indications: Worsening Angina, Suspected CAD Heart Failure: None Stress/Imaging Date: 02/11/2021tress Test with SPECT MPI: Negative Angina Classification Anginal Classification w/in 2 Weeks: CCS III CAD Presentations: Other: worsening angina CONCLUSIONS Elevated Left Ventricular End Diastolic Pressure Normal LV size, wall motion,and systolic function LVEF: by LV gram 55 % Creek Multivessel CAD RECOMMENDATIONS Risk factor modification Medical therapy Staged for FFR vs. IVUS DESCRIPTION OF PROCEDURE The patient arrived to the procedure lab. The risks and benefits of the procedure as well as a full d escription of our services here and current unavailability of surgical backup were fully explained to the patient and/or their significant other prior to the catheterization. The Timeout was completed, verifying the correct patient and procedure. The patient's procedural site was prepped and draped in the usual fashion. Local anesthetic was given subcutaneously to right radial region with Lidocaine 2% . Using a modified Seldinger technique, arterial access was obtained via the right radial artery, a 6 Fr sheath was inserted. Left Coronary Artery selective angiography was performed in multiple views u sing a 5 Fr. 4.0 [place] catheter. Right Coronary Artery selective angiography was then performed in mu ltiple views using a 5 Fr. 4.0 [place] catheter. Left Ventriculography was performed in GARLAND projection using a 5 Fr. Pigtail catheter. LV to AO pullback pressures were then recorded.The arterial sheath was flushed, pulled and a TR Band was applied for hemostasis CORONARY ANGIOGRAPHY DOMINANCE: Right Dominant LEFT HEART ASSESSMENT Left Ventricular Ejection Fraction: by LV Gram 55 % Normal LV wall motion Elevated Left Ventricular End Diastolic Pressure LVEDP: 16 mmHg LEFT MAIN: distal: eccentric: hazy: 50 % Stenosis LEFT ANTERIOR DESCENDING ARTERY: PROX LAD: Previously placed stent is patent DIAGONAL 1: Proximal - 85 % Stenosis CIRCUMFLEX ARTERY: PROX CIRC: Mild luminal irregularities RIGHT CORONARY ARTERY: OSTIAL RCA: 25 % Stenosis MID RCA: 50 % Stenosis AORTIC ROOT: Angiographically normal COMPLICATIONS No Complications PROCEDURE MEDICATIONS Fentanyl 50 mcg IV Versed 1 mg IV Fentanyl 50 mcg IV Versed 1 mg IV Versed 1 mg IV Oxygen: 2 L/min via nasal cannula Heparin given IA 07/22/2021 09:41:26 Heparin 4000 unit(s) IV 07/22/2021 11:07:43 Verapamil 2.5mg, Ntg 100mcgs, 3000 units of Heparin given IA 07/22/2021 09:41:26 SUMMARY OF HEMODYNAMIC DATA Time AIR REST ECG 07:43:28 ECG 08:54:39 AO 101/52 (75) SA 09:44:20 LV 129/4, 15 09:52:52 LV 133/1, 16 09:52:58 LV 125/2, 25 09:53:48 LV 130/-1, 19 09:53:55 LVp 125/-1, 20 09:54:00 AOp 128/62 (92) 09:54:05 Signed By Gallo Castano MD On 07/22/2021 11:37:14 Gallo Castano MD
--- NOTE | 2021-07-22 12:10 | CL.I_ITS ---
Patient Name: JIE HENRIQUEZ Study Date: 07/22/2021 Performing: Dorothy Topete MD Ht: 59.84 inches 152 cm : 1945 Wt: 196.21 lbs 89 kg Age: 76 Gender: female BSA: 1.85 PROCEDURE(S) PERFORMED IC10-([id number])FFR, CORONARY OR GRAFT, INITIAL VESSEL IC11-(97885)FFR, CORONARY OR GRAFT, EACH ADD'L VESSEL CLINICAL PROFILE AND CO-MORBIDITIES Indications: Worsening Angina, Suspected CAD Heart Failure: None Stress/Imaging Date: 02/11/2021 Stress Test with SPECT MPI: Negative Angina Classification Anginal Classification w/in 2 Weeks: CCS III CAD Presentations: Other: worsening angina CONCLUSIONS iFR in the distal left main/ostial LAD and RCA consistent with stenoses that can be treated medically RECOMMENDATIONS DESCRIPTION OF PROCEDURE The patient arrived to the procedure lab. The risks and benefits of the procedure as well as a full d escription of our services here and current unavailability of surgical backup were fully explained to the patient and/or their significant other prior to the catheterization. The Timeout was completed, verifying the correct patient and procedure. The patient's procedural site was prepped and draped in the usual fashion. Local anesthetic was given subcutaneously to right radial region with Lidocaine 2% Using a modified Seldinger technique,arterial access was obtained via the right radial artery, a 6Fr sheath was inserted. Left Coronary Artery selective angiography was performed in multiple views usin g a 5 Fr. 4.0 [place] catheter. Right Coronary Artery selective angiography was then performed in multi ple views using a 5 Fr. 4.0 [place] catheter. Left Ventriculography was performed in GARLAND projection usi ng a 5 Fr. Pigtail catheter. LV to AO pullback pressures were then recorded. XB 3 Guide catheter was inserted and engaged into the LCA. The FFR/iFR wire was inserted. iFR godfrey surements were performed. iFR Ratio: 0.95 The FFR/iFR wire was then removed. JR 4 Guide catheter was inserted and engaged into the RCA. The FFR/iFR wire was inserted. iFR measurements were performed. iF R Ratio: 1.00 The FFR/iFR wire was then removed. The arterial sheath was flushed, pulled and a TR B and was applied for hemostasis INTERVENTION INFORMATION LESION SITE: Left Main (Distal) iFR is 0.95 Lesion Devices: Cardinal 6 Fr XB3.0 100cm Guide Catheter IGT Devices ( Formerly Hanna) Coronary FFR Wire LESION SITE: RCA (Mid) iFR is 1.0 Lesion Devices: IGT Devices ( Formerly Hanna) Coronary FFR Wire COMPLICATIONS No Complications PROCEDURE MEDICATIONS Fentanyl 50 mcg IV Versed 1 mg IV Fentanyl 50 mcg IV Versed 1 mg IV Versed 1 mg IV Oxygen: 2 L/min via nasal cannula Heparin given IA 07/22/2021 09:41:26 Heparin 4000 unit(s) IV 07/22/2021 11:07:43 Verapamil 2.5mg, Ntg 100mcgs, 3000 units of Heparin given IA 07/22/2021 09:41:26 SUMMARY OF HEMODYNAMIC DATA Time AIR REST ECG 07:43:28 ECG 08:54:39 AO 101/52 (75) SA 09:44:20 LV 129/4, 15 09:52:52 LV 133/1, 16 09:52:58 LV 125/2, 25 09:53:48 LV 130/-1, 19 09:53:55 LVp 125/-1, 20 09:54:00 AOp 128/62 (92) 09:54:05 Signed By Dorothy Topete MD On 07/22/2021 12:09:53 Dorothy Topete MD
== END 2021-07-22 23:59 | disposition home or self-care (01) ==
LOC: CLSP 07:23
PROVIDERS: PCP Family Medicine Geriatric Medicine; Referring Provider Internal Medicine Cardiovascular Disease; Visit Provider Internal Medicine Cardiovascular Disease
DX: I48.0 Paroxysmal atrial fibrillation (principal); I10 Essential (primary) hypertension; R00.2 Palpitations; I25.10 Atherosclerotic heart disease of native coronary artery without angina pectoris; E78.5 Hyperlipidemia, unspecified; Z91.030 Bee allergy status; Z91.040 Latex allergy status; M79.7 Fibromyalgia; Z95.5 Presence of coronary angioplasty implant and graft; I51.89 Other ill-defined heart diseases; I25.2 Old myocardial infarction; Z86.74 Personal history of sudden cardiac arrest
CPT/HCPCS: 36415; 71046; 80048; 85025; 85610; 85730; 93458; 93571; 93572; 99152; 99153; J7040; Q9967; C1769; C1887

== ENCOUNTER → 2021-08-11 | Outpatient (CLI) | payer MEDICARE, SELFPAY ==
[2021-03-16 14:15] VITALS: BMI 37.3
[2021-08-11 10:06] LABS: Absolute Lymphocyte Count 1.49 X10^3/uL (0.83-4.51); Absolute Neutrophil Count 4.6 X10^3/uL (2.0-7.7); Basophil# 0.04 X10^3/uL; Basophil% 0.6 % (0-1); Eosinophil# 0.21 X10^3/uL; Eosinophils% 3.1 % (0-5); Hematocrit 35.8 % (37-47); Hemoglobin 11.1 g/dL (12.0-15.0); Lymphocyte # 1.49 X10^3/ul (0.83-4.51); Lymphocyte % 21.8 % (19-41); Mean Corpuscular Hgb 26.4 pg (27.0-32.0); Mean Corpuscular Volume 85.2 fL (81-99); Mean Platelet Vol. 9.6 fl (6.2-12.0); Monocyte# 0.51 X10^3/uL; Monocyte% 7.5 % (0-10); NRBC Flagged by Analyzer 0 % (0-5); Neutrophil # 4.55 X10^3/uL (2.7-7.7); Neutrophil % 66.6 % (47-70); Platelet Count 330 K/mm3 (150-450); RBC Distribution Width CV 14.9 % (11.6-14.6); RBC Distribution Width SD 46.3 fl (35.1-43.9); White Blood Count 6.8 K/mm3 (4.4-11.0)
[2021-08-11 10:40] LABS: Magnesium 2.2 mg/dL (1.6-2.6)
[2021-08-11 10:41] LABS: BNP,B-Type NATRIURETIC PEPTIDE 112.1 pg/mL (0-100)
[2021-08-11 10:42] LABS: Anion Gap 3 (5-15); BUN 22 mg/dL (7-18); BUN/Creat Ratio 28.1 RATIO (10-20); Calcium,Total 9.1 mg/dL (8.5-10.1); Chloride 111 mmol/L (98-107); Creatinine, Serum 0.78 mg/dL (0.55-1.02); EST Glomerular Filtration Rate 77 mL/min (>60); Est Glom Filt Rate - Afr Amer 93 mL/min (>60); Glucose 91 mg/dL (74-106); Potassium 4.1 mmol/L (3.5-5.1); Sodium Level 142 mmol/L (136-145)
== END | disposition home or self-care (01) ==
LOC: LAB 09:45
PROVIDERS: Internal Medicine Cardiovascular Disease; PCP Family Medicine Geriatric Medicine; Visit Provider Nurse Practitioner Gerontology
DX: R06.00 Dyspnea, unspecified (principal); E87.6 Hypokalemia; I10 Essential (primary) hypertension; I25.5 Ischemic cardiomyopathy; I25.10 Atherosclerotic heart disease of native coronary artery without angina pectoris; Z95.5 Presence of coronary angioplasty implant and graft
CPT/HCPCS: 36415; 80048; 83735; 83880; 85025

== ENCOUNTER → 2021-08-17 | Outpatient (CLI) | payer MEDICARE, SELFPAY ==
[2021-03-16 14:15] VITALS: BMI 37.3
--- NOTE | 2021-08-17 13:08 | PFTCOMP ---
COMPLETE PULMONARY FUNCTION TEST INTERPRETATION Brief HPI: Patient is a 76 year old female, currently under the care of Dr. Castano, who presents to [facility] for complete pulmonary function tests secondary to diagnosis of dyspnea. Respiratory therapist reports good effort and reproducible results. The patient did have difficulties with DLCO maneuver Interpretation: Forced expiration spirometry shows no large airways obstructive ventilatory defect with an FEV1 of 97% predicted. There is no significant bronchodilator response by strict ATS criteria. Spirograms are of good quality and plateau slowly, indicating slowly emptying areas of the lungs. The respiratory flow volume loop shows decreased expiratory flow rates at high lung volumes consistent with small airways obstruction. Lung volumes by body plethysmography show a normal total lung capacity at 3.64 L, 92% predicted. All other lung volumes are within normal limits. Diffusion capacity by carbon monoxide is decreased at 68% predicted. The airway resistance is normal. No previous pulmonary function tests were available for review. Impression: Isolated reduction in diffusion capacity with some stigmata of small airways disease. Consider bronchoprovocation if asthma is a consideration.
== END | disposition home or self-care (01) ==
LOC: PSN 09:25
PROVIDERS: PCP Family Medicine Geriatric Medicine; Visit Provider Nurse Practitioner Gerontology
DX: R06.00 Dyspnea, unspecified (principal)
CPT/HCPCS: 94060; 94726; 94729

== ENCOUNTER → 2021-08-25 | Outpatient (CLI) | payer MEDICARE, SELFPAY ==
[2021-03-16 14:15] VITALS: BMI 37.3
== END | disposition home or self-care (01) ==
LOC: LABSPEC 16:24
PROVIDERS: PCP Family Medicine Geriatric Medicine; Visit Provider Family Medicine Geriatric Medicine
DX: N39.0 Urinary tract infection, site not specified (principal)
CPT/HCPCS: 87077; 87086; 87088; 87186

== ENCOUNTER → 2021-09-15 | Outpatient (CLI) | payer MEDICARE, SELFPAY ==
[2021-03-16 14:15] VITALS: BMI 37.3
[2021-09-15 12:12] LABS: Absolute Lymphocyte Count 1.68 X10^3/uL (0.83-4.51); Absolute Neutrophil Count 4.4 X10^3/uL (2.0-7.7); Basophil# 0.05 X10^3/uL; Basophil% 0.7 % (0-1); Eosinophil# 0.29 X10^3/uL; Eosinophils% 4.1 % (0-5); Hematocrit 33.8 % (37-47); Hemoglobin 10.7 g/dL (12.0-15.0); Lymphocyte # 1.68 X10^3/ul (0.83-4.51); Lymphocyte % 23.9 % (19-41); Mean Corp Hgb Conc 31.7 g/dL (32-36); Mean Corpuscular Hgb 26.8 pg (27.0-32.0); Mean Corpuscular Volume 84.7 fL (81-99); Monocyte# 0.59 X10^3/uL; Monocyte% 8.4 % (0-10); NRBC Flagged by Analyzer 0 % (0-5); Neutrophil # 4.41 X10^3/uL (2.7-7.7); Neutrophil % 62.6 % (47-70); Platelet Count 320 K/mm3 (150-450); RBC Distribution Width CV 14.4 % (11.6-14.6); RBC Distribution Width SD 44.5 fl (35.1-43.9); Red Blood Count 3.99 M/mm3 (4.2-5.4)
== END | disposition home or self-care (01) ==
LOC: POLAB3 10:24
PROVIDERS: PCP Family Medicine Geriatric Medicine; Visit Provider Family Medicine Geriatric Medicine
DX: D64.9 Anemia, unspecified (principal)
CPT/HCPCS: 36415; 85025

== ENCOUNTER → 2021-09-22 | Outpatient (CLI) | payer MEDICARE, SELFPAY ==
[2021-03-16 14:15] VITALS: BMI 37.3
[2021-09-22 13:57] VITALS: PULSE 102; PULSE 103; PULSE 86; PULSE 87; PULSE 95; O2SAT 94; O2SAT 95; O2SAT 97; O2SAT 98
--- NOTE | 2021-09-23 10:13 | PCM.PSN.6M ---
PSN 6 Minute Walk Test 6 Minute Walk Test 6 Minute Walk Test: 6 Minute Walk Test PSN:6-Minute Walk Test Start: 09/22/21 13:57 Freq: Status: Active Protocol: [id number].6MINW Document 09/22/21 13:57 WILLY (Rec: 09/22/21 14:05 ARVINDSHELBION [id number]) 6 Minute Walk Test Date Performed 09/22/21 Time Performed 13:45 Height 5 ft Weight: 88.904 kg Weight in Pounds 196.[address]: Froilan Torres Assistive device used: None Pre-test Oxygen Delivery Method Room Air Pulse Ox (%) 95 Pulse Rate (60-100 beats/min) 86 Dyspnea Maryann Scale (0-10) 1 Exertion Maryann Scale (6-20) 6 1st minute Oxygen Delivery Method Room Air Pulse Ox (%) 94 Pulse Rate (60-100 beats/min) 95 2nd minute Oxygen Delivery Method Room Air Pulse Ox (%) 94 Pulse Rate (60-100 beats/min) 102 H 3rd minute Oxygen Delivery Method Room Air Pulse Ox (%) 94 Pulse Rate (60-100 beats/min) 102 H 4th minute Oxygen Delivery Method Room Air Pulse Ox (%) 97 Pulse Rate (60-100 beats/min) 102 H 5th minute Oxygen Delivery Method Room Air Pulse Ox (%) 98 Pulse Rate (60-100 beats/min) 102 H 6th minute Oxygen Delivery Method Room Air Pulse Ox (%) 94 Pulse Rate (60-100 beats/min) 103 H Dyspnea Maryann Scale (0-10) 4 Exertion Maryann Scale (6-20) 14 Reported Symptoms Dizziness Post-test Oxygen Delivery Method Room Air Pulse Ox (%) 94 Pulse Rate (60-100 beats/min) 87 Full Laps Walked 13 Partial Lap, Number of Tiles Walked 10 Total Distance Walked (ft) 777 Interpretation Interpretation: The patient ambulated 777 feet over the course of 6 minutes beginning on room air without assistive devices. Pretesting oxygen saturation was noted to be 95% on room air. With ambulation, the vane oxygen saturation was 94%. There was no significant exertional oxygen desaturation. Recommendations Recommendations: There is no indication for the use of supplemental oxygen at this time.
== END | disposition home or self-care (01) ==
LOC: PSN 13:33
PROVIDERS: PCP Family Medicine Geriatric Medicine; Referring Provider Internal Medicine Critical Care Medicine; Visit Provider Internal Medicine Critical Care Medicine
DX: R06.00 Dyspnea, unspecified (principal)
CPT/HCPCS: 94618

== ENCOUNTER → 2021-09-28 | Outpatient (CLI) | payer MEDICARE, SELFPAY ==
[2021-03-16 14:15] VITALS: BMI 37.3
[2021-09-28] MEDS: Methacholine Chloride 18 ml neb kit INHALATION (13:21)
--- NOTE | 2021-09-28 14:39 | BRONCHALL ---
Bronchoprovocation Challenge Bronchoprovocation Challenge Bronchoprovocation Challenge: BRONCHOPROVOCATION STUDY INTERPRETATION Brief HPI: Patient is a 76 year old female, currently under the care of Dr. Torres, who presents to [facility] for a bronchoprovocation study secondary to diagnosis of dyspnea. Respiratory therapist reports good effort and reproducible results. Interpretation: Initial spirometry showed no large airways obstructive ventilatory defect. The patient was then given increasingly concentrated doses of methacholine in a stepwise/standardized fashion, using a modified ATS protocol. The patient?s maximum reduction in FEV1 was 19 percent predicted. Impression: Negative Bronchoprovocation study. This is NOT consistent with the diagnosis of asthma.
== END | disposition home or self-care (01) ==
LOC: PSN 13:01
PROVIDERS: PCP Family Medicine Geriatric Medicine; Referring Provider Internal Medicine Critical Care Medicine; Visit Provider Internal Medicine Critical Care Medicine
DX: R06.00 Dyspnea, unspecified (principal)
CPT/HCPCS: 94070; 95070

== ENCOUNTER → 2021-10-04 | Outpatient (CLI) | payer MEDICARE, SELFPAY ==
[2021-03-16 14:15] VITALS: BMI 37.3
--- NOTE | 2021-10-04 13:50 | ECHOD_ITS ---
Reason For Study: DYSPNEA Procedure This was a 2D Doppler, Color Flow transthoracic echocardiogram. The study was technically difficult. Exam performed in department. Left Ventricle Normal LV size. Left ventricular systolic function is normal. The estimated ejection fraction is 65 %. No evidence for diastolic dysfunction. No regional wall motion abnormalities noted. Right Ventricle Normal RV size. Normal systolic function. Atria Normal left atrium. Normal right atrium. No doppler evidence for ASD. Mitral Valve There is no mitral annular calcification. Normal mitral valve. Mild (1+) mitral valve insufficiency. Tricuspid Valve Normal tricuspid valve. Mild tricuspid valve insufficiency. Right ventricular systolic pressure estimated to be 31 mmHg. Aortic Valve Trisinus/trileaflet aortic valve. Mild focal aortic valve thickening. Pulmonic Valve The pulmonic valve is not well visualized. Great Vessels Normal sized aortic root. Pericardium/Pleural No pericardial effusion. MMode/2D Measurements & Calculations LVIDd: 4.3 cm IVSd: 1.1 cm Ao root diam: 3.0 cm LVIDs: 2.2 cm LVPWd: 0.96 cm RVDd: 3.3 cm FS: 47.7 % LAV(MOD-sp4): 57.7 ml LVAd ap4: 18.8 cm2 LVAd ap2: 21.5 cm2 LVLd ap4: 6.9 cm LVLd ap2: 6.8 cm EDV(MOD-sp4): 42.3 ml EDV(MOD-sp2): 56.6 ml EDV(sp4-el): 43.4 ml EDV(sp2-el): 57.8 ml LVAs ap4: 10.6 cm2 LVAs ap2: 12.3 cm2 LVLs ap4: 5.2 cm LVLs ap2: 5.7 cm ESV(MOD-sp4): 18.7 ml ESV(MOD-sp2): 22.6 ml ESV(sp4-el): 18.5 ml ESV(sp2-el): 22.2 ml EF(MOD-sp4): 55.9 % EF(MOD-sp2): 60.2 % EF(sp4-el): 57.4 % SV(MOD-sp4): 23.7 ml SV(MOD-sp2): 34.1 ml SV(sp4-el): 24.9 ml LA A4 area: 19.8 cm2 RA A4 area: 14.9 cm2 Doppler Measurements & Calculations MV E max jayro: 102.5 cm/sec Lat Peak E' Jayro: 11.0 cm/sec Med Peak E' Jayro: 7.0 cm/sec MV A max jayro: 60.9 cm/sec E/E' lat: 9.3 E/E' med: 14.7 MV E/A: 1.7 Ao V2 max: 167.8 cm/sec LV V1 max: 100.5 cm/sec PA V2 max: 78.7 cm/sec Ao max P.3 mmHg LV V1 max P.0 mmHg TR max jayro: 265.9 cm/sec TR max P.3 mmHg ECHO/Echo Complete Interpretation Summary The study was technically difficult. Left ventricular systolic function is normal. The estimated ejection fraction is 65 %. Mild (1+) mitral valve insufficiency. Mild tricuspid valve insufficiency. Mild focal aortic valve thickening. Right ventricular systolic pressure estimated to be 31 mmHg. No evidence for diastolic dysfunction. Ordering Physician: Froilan Torres Referring Physician: Froilan Torres Performed By: Ladan Alfred RCS
== END | disposition home or self-care (01) ==
LOC: CVS 13:47
PROVIDERS: PCP Family Medicine Geriatric Medicine; Referring Provider Internal Medicine Critical Care Medicine; Visit Provider Internal Medicine Critical Care Medicine
DX: I25.10 Atherosclerotic heart disease of native coronary artery without angina pectoris (principal); R06.02 Shortness of breath
CPT/HCPCS: 93306

== ENCOUNTER → 2021-10-13 | Outpatient (CLI) | payer MEDICARE, SELFPAY ==
[2021-03-16 14:15] VITALS: BMI 37.3
[2021-10-13 17:52] LABS: Absolute Neutrophil Count 4.5 X10^3/uL (2.0-7.7); Basophil# 0.04 X10^3/uL; Basophil% 0.6 % (0-1); Eosinophil# 0.23 X10^3/uL; Eosinophils% 3.2 % (0-5); Hematocrit 39.7 % (37-47); Hemoglobin 12.1 g/dL (12.0-15.0); Lymphocyte % 27.7 % (19-41); Mean Corp Hgb Conc 30.5 g/dL (32-36); Mean Corpuscular Hgb 25.8 pg (27.0-32.0); Mean Corpuscular Volume 84.6 fL (81-99); Mean Platelet Vol. 10.3 fl (6.2-12.0); Monocyte# 0.48 X10^3/uL; Monocyte% 6.6 % (0-10); NRBC Flagged by Analyzer 0 % (0-5); Neutrophil # 4.45 X10^3/uL (2.7-7.7); Neutrophil % 61.6 % (47-70); Platelet Count 343 K/mm3 (150-450); RBC Distribution Width CV 14.6 % (11.6-14.6); RBC Distribution Width SD 44.8 fl (35.1-43.9); Red Blood Count 4.69 M/mm3 (4.2-5.4); White Blood Count 7.2 K/mm3 (4.4-11.0)
[2021-10-13 18:26] LABS: Anion Gap 6 (5-15); BUN 17 mg/dL (7-18); BUN/Creat Ratio 19.6 RATIO (10-20); Calcium,Total 9.4 mg/dL (8.5-10.1); Chloride 109 mmol/L (98-107); Creatinine, Serum 0.87 mg/dL (0.55-1.02); EST Glomerular Filtration Rate 68 mL/min (>60); Est Glom Filt Rate - Afr Amer 82 mL/min (>60); Glucose 89 mg/dL (74-106); Potassium 4.3 mmol/L (3.5-5.1); Sodium Level 141 mmol/L (136-145)
== END | disposition home or self-care (01) ==
LOC: POLAB3 16:17
PROVIDERS: PCP Family Medicine Geriatric Medicine; Visit Provider Family Medicine Geriatric Medicine
DX: R07.9 Chest pain, unspecified (principal)
CPT/HCPCS: 36415; 80048; 85025

== ENCOUNTER → 2021-10-14 | Outpatient (CLI) | payer MEDICARE, SELFPAY ==
[2021-03-16 14:15] VITALS: BMI 37.3
--- NOTE | 2021-10-14 12:15 | MRI_ITS ---
STUDY: MRI BRAIN WITHOUT CONTRAST REASON FOR EXAM: Female, 76 years old. ATAXIA, posterior cerebral circulation infarction TECHNIQUE: Standardized multiplanar fat and water weighted pulse sequences were obtained. COMPARISON: CT 11/06/2018 FINDINGS: There is moderate cerebral atrophy with widening of the extra-axial spaces and ventricular dilatation. There are multiple white matter hyperintensities, distributed throughout the deep white matter tracts of the cerebral hemispheres, consistent with moderate chronic white matter ischemic changes. There is no evidence for recent intracranial ischemia or other cause of cytotoxic edema on diffusion weighted imaging (DWI). Normal T2* images of the brain without demonstrated susceptibility artifact. There is no demonstrated hemosiderin stain. Normal bilateral basal ganglia. Normal thalami. There is no extra-axial fluid accumulation. Normal flow voids within the major intracranial circulation suggesting patency by spin echo criteria. Normal sella turcica, pituitary gland, infundibular stalk, optic chiasm and hypothalamus. Normal tectal plate and pineal gland. Normal midbrain, gayle and medulla. Normal cerebellum. Normal basal cisterns. Normal bilateral temporal bones. Normal bilateral internal auditory canals. There is an ocular lens implant of the right globe. Normal left globe. The intraorbital contents otherwise are normal. Normal visualized paranasal sinuses. Normal calvarium and skull base. Normal visualized soft tissue structures. Normal visualized upper cervical spine. MRI/Brain without Contrast IMPRESSION: Involutional changes of the brain, as described above. No acute infarct. Electronically Signed: Igor García MD at 13:22 EDT ,
== END | disposition home or self-care (01) ==
PROVIDERS: PCP Family Medicine Geriatric Medicine; Visit Provider Family Medicine Geriatric Medicine
DX: I63.50 Cerebral infarction due to unspecified occlusion or stenosis of unspecified cerebral artery (principal)
CPT/HCPCS: 70551

== ENCOUNTER → 2021-10-31 | Outpatient (CLI) | payer MEDICARE, SELFPAY ==
[2021-03-16 14:15] VITALS: BMI 37.3
== END | disposition home or self-care (01) ==
LOC: LABSPEC 15:21
PROVIDERS: PCP Family Medicine Geriatric Medicine; Visit Provider Family Medicine Geriatric Medicine
DX: N39.0 Urinary tract infection, site not specified (principal)
CPT/HCPCS: 87077; 87086; 87088; 87186

== ENCOUNTER → 2021-12-01 | Outpatient (CLI) | payer MEDICARE, SELFPAY ==
[2021-03-16 14:15] VITALS: BMI 37.3
[2021-12-01 12:05] LABS: Absolute Lymphocyte Count 1.43 X10^3/uL (0.83-4.51); Absolute Neutrophil Count 3.6 X10^3/uL (2.0-7.7); Basophil# 0.04 X10^3/uL; Basophil% 0.7 % (0-1); Eosinophils% 3.4 % (0-5); Hematocrit 38.5 % (37-47); Lymphocyte # 1.43 X10^3/ul (0.83-4.51); Mean Corp Hgb Conc 31.2 g/dL (32-36); Mean Corpuscular Hgb 25.5 pg (27.0-32.0); Mean Corpuscular Volume 81.9 fL (81-99); Mean Platelet Vol. 9.8 fl (6.2-12.0); Monocyte% 11.7 % (0-10); NRBC Flagged by Analyzer 0 % (0-5); Neutrophil # 3.59 X10^3/uL (2.7-7.7); Platelet Count 312 K/mm3 (150-450); RBC Distribution Width CV 15.5 % (11.6-14.6); RBC Distribution Width SD 46.3 fl (35.1-43.9)
[2021-12-01 12:54] LABS: Anion Gap 5 (5-15); BUN 13 mg/dL (7-18); Calcium,Total 9.3 mg/dL (8.5-10.1); Chloride 107 mmol/L (98-107); Creatinine, Serum 0.87 mg/dL (0.55-1.02); EST Glomerular Filtration Rate 68 mL/min (>60); Est Glom Filt Rate - Afr Amer 82 mL/min (>60); Glucose 94 mg/dL (74-106); Potassium 4.4 mmol/L (3.5-5.1); Sodium Level 140 mmol/L (136-145)
== END | disposition home or self-care (01) ==
LOC: LAB 11:34
PROVIDERS: PCP Family Medicine Geriatric Medicine; Referring Provider Family Medicine Geriatric Medicine; Visit Provider Family Medicine Geriatric Medicine
DX: N61.0 Mastitis without abscess (principal); D50.9 Iron deficiency anemia, unspecified
CPT/HCPCS: 36415; 80048; 85025

== ENCOUNTER → 2021-12-13 | Outpatient (CLI) | payer MEDICARE, SELFPAY ==
[2021-03-16 14:15] VITALS: BMI 37.3
[2021-12-13 12:39] LABS: Absolute Lymphocyte Count 1.56 X10^3/uL (0.83-4.51); Absolute Neutrophil Count 2.6 X10^3/uL (2.0-7.7); Basophil# 0.03 X10^3/uL; Basophil% 0.6 % (0-1); Eosinophil# 0.14 X10^3/uL; Eosinophils% 2.8 % (0-5); Hematocrit 35.5 % (37-47); Hemoglobin 11.4 g/dL (12.0-15.0); Lymphocyte # 1.56 X10^3/ul (0.83-4.51); Lymphocyte % 31.3 % (19-41); Mean Corp Hgb Conc 32.1 g/dL (32-36); Mean Corpuscular Hgb 26.3 pg (27.0-32.0); Mean Corpuscular Volume 81.8 fL (81-99); Monocyte# 0.64 X10^3/uL; Monocyte% 12.8 % (0-10); NRBC Flagged by Analyzer 0 % (0-5); Neutrophil # 2.61 X10^3/uL (2.7-7.7); Neutrophil % 52.3 % (47-70); Platelet Count 301 K/mm3 (150-450); RBC Distribution Width CV 16.1 % (11.6-14.6); Red Blood Count 4.34 M/mm3 (4.2-5.4)
[2021-12-13 12:50] LABS: Vitamin D,25 Hydroxy 34.8 ng/mL
[2021-12-13 13:24] LABS: ALB/GLOB Ratio 0.7 RATIO (0.9-2.4); AST(SGOT) 22 U/L (15-37); Alanine Aminotransfer ALT/SGPT 22 U/L (13-56); Albumin, Serum 3.2 g/dL (3.2-5.0); Alkaline Phosphatase 115 U/L (45-117); Anion Gap 6 (5-15); BUN 24 mg/dL (7-18); BUN/Creat Ratio 19.5 RATIO (10-20); Calcium,Total 8.9 mg/dL (8.5-10.1); Chloride 106 mmol/L (98-107); Creatinine, Serum 1.23 mg/dL (0.55-1.02); EST Glomerular Filtration Rate 45 mL/min (>60); Est Glom Filt Rate - Afr Amer 55 mL/min (>60); Globulin 4.4 g/dL (2.2-4.2); Glucose 96 mg/dL (74-106); Potassium 4.2 mmol/L (3.5-5.1); Protein, Total 7.6 g/dL (6.4-8.2); Sodium Level 138 mmol/L (136-145); Thyroid Stim Hormone (TSH) 1.11 uIU/mL (0.358-3.74)
== END | disposition home or self-care (01) ==
LOC: POLAB3 09:35
PROVIDERS: PCP Family Medicine Geriatric Medicine; Visit Provider Family Medicine Geriatric Medicine
DX: I10 Essential (primary) hypertension (principal); E55.9 Vitamin D deficiency, unspecified
CPT/HCPCS: 36415; 80053; 82306; 84443; 85025

== ENCOUNTER → 2021-12-19 | Outpatient (CLI) | payer MEDICARE, SELFPAY ==
[2021-03-16 14:15] VITALS: BMI 37.3
--- NOTE | 2021-12-19 09:02 | BI_ITS ---
MAMMOGRAPHY - UNILATERAL DIAGNOSTIC: LEFT BREAST REASON FOR EXAM: Female, 76 years old. 2 week history of tender palpable abnormality in the left breast. PERTINENT HISTORY: Mother with breast cancer. Aunt with breast cancer. History of remote bilateral breast biopsies. TECHNIQUE: Digital unilateral breast radha (3D mammographic acquisition) in the CC and MLO projections. 2-D mediolateral oblique (MLO) and craniocaudad (CC) views of both breasts were obtained. CAD: Full Field Digital Mammography with Computer Added Detection was performed. COMPARISON: Comparison is made with prior examination dated 03/30/2021 and 02/27/2020. FINDINGS: Breast Composition: The breasts are heterogeneously dense, which may obscure small masses. There are no dominant masses or suspicious calcifications. Stable benign-appearing appearing left axillary lymph nodes. A tissue clip marker is seen in the deep central medial aspect of the left breast. No other significant abnormalities are identified. BI/DIAG MAMM W/CAD, UNILAT IMPRESSION: Stable unilateral diagnostic mammogram. With the patient''s history of a palpable lump in the central medial aspect of the left breast, correlation with ultrasound recommended. ASSESSMENT CATEGORY: BIRADS Category 0: Incomplete. Need additional imaging evaluation. A letter regarding these results will be sent to the patient by the facility within 30 days. Approximately 10% of breast cancers are not detected by mammography. A normal mammogram should not delay biopsy of a clinically suspicious abnormality. Electronically Signed: Peter Davidson MD at 9:59 EDT ,
--- NOTE | 2021-12-19 09:02 | US_ITS ---
STUDY: ULTRASOUND BREAST - LEFT REASON FOR EXAM: Female, 76 years old. Left breast tenderness. TECHNIQUE: Axial and longitudinal images of the LEFT breast were performed with a high resolution ultrasound transducer. # OF IMAGES: 36 COMPARISON: Comparison is made with prior mammogram done earlier in the day. FINDINGS: LEFT Breast: The upper half of the breast was examined with ultrasound. There is heterogeneously dense fibroglandular tissue. No solid or cystic mass lesion is seen. US/Breast Limited Unilateral IMPRESSION: No sonographic abnormality is seen. ASSESSMENT CATEGORY: BIRADS Category 1: Negative. A letter regarding these results will be sent to the patient by the facility within 30 days. Electronically Signed: Peter Davidson MD at 10:23 EDT ,
== END | disposition home or self-care (01) ==
PROVIDERS: PCP Family Medicine Geriatric Medicine; Visit Provider Family Medicine Geriatric Medicine
DX: N63.20 Unspecified lump in the left breast, unspecified quadrant (principal); N64.59 Other signs and symptoms in breast
CPT/HCPCS: 76642; 77061; 77065; G0279

== ENCOUNTER → 2022-01-20 | Outpatient (CLI) | payer MEDICARE, SELFPAY ==
[2021-03-16 14:15] VITALS: BMI 37.3
== END | disposition home or self-care (01) ==
LOC: LABSPEC 13:39
PROVIDERS: PCP Family Medicine Geriatric Medicine; Visit Provider Family Medicine Geriatric Medicine
DX: N39.0 Urinary tract infection, site not specified (principal)
CPT/HCPCS: 87077; 87086; 87088; 87186

== ENCOUNTER → 2022-02-27 | Outpatient (CLI) | payer MEDICARE, SELFPAY ==
[2021-03-16 14:15] VITALS: BMI 37.3
== END | disposition home or self-care (01) ==
LOC: LABSPEC 15:05
PROVIDERS: PCP Family Medicine Geriatric Medicine; Visit Provider Family Medicine Geriatric Medicine
DX: N39.0 Urinary tract infection, site not specified (principal)
CPT/HCPCS: 87077; 87086; 87088; 87186

== ENCOUNTER → 2022-02-28 | Outpatient (CLI) | payer MEDICARE, SELFPAY ==
[2021-03-16 14:15] VITALS: BMI 37.3
[2022-02-28 13:29] LABS: Absolute Lymphocyte Count 1.71 X10^3/uL (0.83-4.51); Absolute Neutrophil Count 3.4 X10^3/uL (2.0-7.7); Basophil# 0.06 X10^3/uL; Eosinophil# 0.22 X10^3/uL; Eosinophils% 3.6 % (0-5); Hematocrit 37.6 % (37-47); Hemoglobin 11.9 g/dL (12.0-15.0); Lymphocyte # 1.71 X10^3/ul (0.83-4.51); Lymphocyte % 28.3 % (19-41); Mean Corp Hgb Conc 31.6 g/dL (32-36); Mean Corpuscular Hgb 26.3 pg (27.0-32.0); Mean Corpuscular Volume 83.2 fL (81-99); Mean Platelet Vol. 9.8 fl (6.2-12.0); Monocyte# 0.62 X10^3/uL; Monocyte% 10.3 % (0-10); NRBC Flagged by Analyzer 0 % (0-5); Neutrophil # 3.42 X10^3/uL (2.7-7.7); Neutrophil % 56.6 % (47-70); Platelet Count 315 K/mm3 (150-450); RBC Distribution Width CV 15.3 % (11.6-14.6); RBC Distribution Width SD 46.9 fl (35.1-43.9); Red Blood Count 4.52 M/mm3 (4.2-5.4)
[2022-02-28 13:57] LABS: BNP,B-Type NATRIURETIC PEPTIDE 114.8 pg/mL (0-100)
[2022-02-28 14:00] LABS: Anion Gap 3 (5-15); BUN 16 mg/dL (7-18); Calcium,Total 9.1 mg/dL (8.5-10.1); Chloride 106 mmol/L (98-107); Creatinine, Serum 0.89 mg/dL (0.55-1.02); EST Glomerular Filtration Rate 66 mL/min (>60); Est Glom Filt Rate - Afr Amer 80 mL/min (>60); Glucose 79 mg/dL (74-106); Potassium 4.5 mmol/L (3.5-5.1); Sodium Level 140 mmol/L (136-145)
== END | disposition home or self-care (01) ==
LOC: LAB 11:26
PROVIDERS: PCP Family Medicine Geriatric Medicine; Referring Provider Nurse Practitioner Family; Visit Provider Nurse Practitioner Family
DX: E78.5 Hyperlipidemia, unspecified (principal); I25.10 Atherosclerotic heart disease of native coronary artery without angina pectoris; I25.5 Ischemic cardiomyopathy; R06.00 Dyspnea, unspecified
CPT/HCPCS: 36415; 80048; 83880; 85025

== ENCOUNTER 2022-03-06 12:38 | Emergency (ER) | payer MEDICARE, SELFPAY ==
[2021-03-16 14:15] VITALS: BMI 37.3
[2022-03-06 12:39] VITALS: BP 142/71; PULSE 69; RESP 14; TEMP 36.6; O2SAT 100; BMI 40.0
--- NOTE | 2022-03-06 13:07 | EKG12_ITS ---
Test Reason : CHEST PAIN Blood Pressure : / mmHG Vent. Rate : 066 BPM Atrial Rate : 066 BPM P-R Int : 188 ms QRS Dur : 076 ms QT Int : 436 ms P-R-T Axes : 062 -11 -06 degrees QTc Int : 457 ms Normal sinus rhythm Cannot rule out Anterior infarct , age undetermined Abnormal ECG Confirmed by JOSE ANTONIO BENNETT, BRIAN ([id number]), school photograph editor CLAUDIA DIOP ([id number]) on 03/07/2022 11:40:48 AM Referred By: DIA Confirmed By:BRIAN BRADY MD
--- NOTE | 2022-03-06 13:10 | ED.VIS.CHEST ---
HPI History of Present Illness Chief Complaint: Chest Pain Informant: patient Onset/Context/Timing Onset: Days (2-3) Activity at onset: gradual and onset Timing: Continuous Quality: Positive for Heaviness Location: Substernal (With occasional discomfort down her right arm but brief) Current Severity: Moderate Maximum Severity: Moderate Worsened By: Nothing; Not Worsened By Breathing Relieved By: Nothing (But has not tried any medications) Associated Symptoms: Positive for Dyspnea and Cough (Chronic unchanged); Negative for Nausea, Vomiting, Diaphoresis, Fever, Lightheadedness or Palpitations Narrative Narrative: Patient has history of heart attack and stent, she has been having constant chest heaviness for the past 2 to 3 days, she does not recall what she was doing when it started but it has not gone away since it started. She denies any recent illness, cough has been chronic since my heart attack. Leg edema is chronic and unchanged. No GI symptoms. No back pain. No sharp tearing sensations. No syncope or near syncope. More short of breath when she exerts herself up a flight of stairs but it does not change the chest discomfort. [facility] Medical History Arthritis Atherosclerosis of coronary artery of [place] heart without angina pectoris Atrial fibrillation Back pain Bilateral edema of lower extremity Bone fracture Breast lump in female Cardiac arrest Cataracts, bilateral Chronic venous insufficiency of lower extremity Contusion of right lower leg, sequela Depression Fibromyalgia Gastroesophageal reflux disease Generalized osteoarthritis GERD (gastroesophageal reflux disease) Hemorrhoids History of back problems History of left heart catheterization (LHC) (~07/22/21) HTN (hypertension) Hyperlipidemia Hypokalemia Incontinence Left breast lump Myocardial infarct Neuropathy of right lower extremity Obesity Osteoarthritis of knee Rheumatoid arthritis Shoulder pain UTI (urinary tract infection) Vitamin deficiency Home Medications nitroglycerin 0.4 mg sublingual tablet 0.4 mg sublingual Q5M PRN Cardiac/Chest Pain #1 BOTTLE 12/05/20 [Rx Last Taken Unknown] clopidogrel 75 mg tablet (Plavix) 75 mg PO DAILY #90 tabs 09/14/21 [Rx Last Taken Unknown] isosorbide mononitrate 60 mg tablet,extended release 24 hr 60 mg PO DAILY #90 tabs 09/14/21 [Rx Last Taken Unknown] losartan 50 mg tablet 50 mg PO DAILY BP #90 tabs 09/14/21 [Rx Last Taken Unknown] metoprolol succinate 25 mg tablet,extended release 24 hr 25 mg PO BID #180 tabs 09/14/21 [Rx Last Taken Unknown] apixaban 5 mg tablet (Eliquis) 5 mg PO BID #180 tabs 09/21/21 [Rx Last Taken Unknown] amlodipine 2.5 mg tablet 2.5 mg PO DAILY 12/01/21 [History Last Taken Unknown] atorvastatin 40 mg tablet 40 mg PO QHS Cholestrol #90 tabs 01/16/22 [Rx Last Taken Unknown] cholecalciferol (vitamin D3) 25 mcg (1,000 unit) tablet 25 mcg PO DAILY SUPPLEMENT 02/28/22 [History Last Taken Unknown] ciprofloxacin HCl 250 mg tablet 250 mg PO BID 02/28/22 [History Last Taken Unknown] spironolactone 25 mg tablet 12.5 mg PO DAILY #30 tabs 03/03/22 [Rx Last Taken Unknown] Allergy/AdvReac Type Severity Reaction Status Date / Time bee pollen Allergy Anaphylaxis Verified 03/06/22 12:41 latex Allergy Swelling Verified 03/06/22 12:41 morphine Allergy Other Verified 03/06/22 12:41 Penicillins Allergy Hives Verified 03/06/22 12:41 hydrocodone bitartrate AdvReac Abd Verified 03/06/22 12:41 [From Vicodin] cramps/diarrhea Family History Father Diabetes Heart disease Hypertension CVA (cerebral vascular accident) Parkinson disease Mother Breast cancer Hypertension Grandmother Cancer pancreatic cancer Ovarian cancer Son Anesthesia complication Brother Asthma Arthritis Diabetes Respiratory disease Grandfather Lung cancer CVA (cerebral vascular accident) Surgical History Hematoma history bilateral breast biopsies History of bilateral knee replacement History of cataract surgery History of coronary artery stent placement (11/16/20) History of hysterectomy History of laparoscopic cholecystectomy History of left breast biopsy (~11/2017) History of repair of right rotator cuff History of tonsillectomy and adenoidectomy Hx of appendectomy Social History household members: spouse Smoking Status: Never smoker alcohol intake: never substance use type: does not use caffeine: Yes Type: carbonated beverages Number of servings: 1 and coffee Number of servings: 1 additional social history: DOES NOT USE IBUPROFEN ROS ROS ED Constitutional Constitutional ED: Denies chills or fever(s) Eyes Eyes: Denies change in vision or diplopia ENT ENT ED: Denies rhinorrhea or sore throat Cardiovascular Cardiovascular: Reports chest pain and leg edema; Denies palpitations Respiratory/Chest Respiratory/Chest: Reports dyspnea and dyspnea on exertion; Denies cough Gastrointestinal Gastrointestinal: Denies abdominal pain, diarrhea, nausea or vomiting Genitourinary Genitourinary ED: Denies dysuria or hematuria Musculoskeletal Musculoskeletal: Denies back pain or neck pain Integumentary Denies abscess or rash Neurologic Neurologic: Denies headache(s), paresthesias or weakness Psychiatric Psychiatric: Denies anxiety or suicidal thoughts EXAM Physical Exam Const Vital Signs: 03/06/22 12:39 03/06/22 12:52 03/06/22 13:32 Temperature 97.8 F Temperature Source Temporal Pulse Rate 69 Respiratory Rate 14 Respiratory Effort Short of Breath Blood Pressure 142/71 H Blood Pressure Mean 94 Pulse Ox 100 Oxygen Delivery Method Room Air Room Air 03/06/22 13:43 03/06/22 14:27 03/06/22 15:05 Temperature Temperature Source Pulse Rate 70 62 63 Respiratory Rate 20 H 17 Respiratory Effort Blood Pressure 110/62 126/54 H 111/62 Blood Pressure Mean 78 78 Pulse Ox 96 98 Oxygen Delivery Method Room Air Room Air 03/06/22 15:22 Temperature Temperature Source Pulse Rate 66 Respiratory Rate 16 Respiratory Effort Blood Pressure Blood Pressure Mean Pulse Ox Oxygen Delivery Method Positive well nourished, well developed and obese General Appearance ED: well developed and NAD Nutritional Appearance: obese HEENT Reports moist mucous membranes normocephalic and atraumatic Eyes PERRL and EOMs intact bilaterally Neck full ROM and supple Resp normal respiratory effort and clear to auscultation bilaterally Cardio regular rate, regular rhythm and no murmurs Rate: Negative for tachycardic GI non-tender and non-distended Auscultation: normoactive bowel sounds Palpation: soft Back/Spine no CVA tenderness General Back: other FROM Extremity normal to inspection General Extremety ED: Yes edema; Negative for pulses abnormal or tenderness General Extremity: edema bilateral lower extremity Details: moderate; Negative for pulses abnormal Neuro oriented x3, CN's II-XII intact bilaterally and no sensory deficits noted Sensorium / Orientation: awake and alert Motor Exam: strength 5/5 throughout Skin no rashes or lesions noted and no wounds Heart Score History: Moderately Suspicious ECG: Normal Age: >/= 65 years Risk Factors: >/= 3 Risk Factors or History of CAD Troponin: </= Normal Limit Score: 5 MDM MDM MDM Narrative Medical decision making narrative: Patient was given aspirin followed by nitroglycerin which did not help her discomfort, and a GI cocktail which also did not help her discomfort. Her EKG is stable compared with prior, her troponin is negative after 2-3 days of continuous discomfort, suggesting this is not unstable angina/MN. With a heart score 5, I discussed with cardiology Dr. Jordan, who is comfortable with pt following up with her following up w/ Dr. Castano as an outpatient. Prior to discharge I did try an albuterol treatment, she states it did not help her discomfort at all although she is breathing well with normal vitals here at rest. Will discharge patient home to follow-up. Lab Data Attestation: I reviewed the patient's lab results. Labs: Laboratory Results - last 24 hr 03/06/22 03/06/22 13:08 13:08 WBC 6.9 RBC 4.45 Hgb 11.5 L Hct 36.9 L MCV 82.9 MCH 25.8 L MCHC 31.2 L RDW Std Deviation 45.7 H RDW Coeff of April 15.1 H Plt Count 320 MPV 9.4 Immature Gran % (Auto) 0.400 Neut % (Auto) 63.0 Lymph % (Auto) 25.0 Simpson % (Auto) 6.9 Eos % (Auto) 4.1 Baso % (Auto) 0.6 Absolute Neuts (auto) 4.3 Absolute Lymphs (auto) 1.71 Nucleated RBC % 0 Sodium 142 Potassium 4.1 Chloride 107 Carbon Dioxide 29.0 Anion Gap 6 BUN 16 Creatinine 0.94 Estim Creat Clear Calc 37.71 Est GFR (MDRD) Af Amer 75 Est GFR (MDRD) Non-Af 62 BUN/Creatinine Ratio 17.1 Glucose 113 H Calcium 9.1 Troponin I High Sens 7 Radiography Chest X-Ray - ED: 1 View, Read by ED Physician and No Acute Disease Diagnostic Testing: Clinical Impression(s) from Imaging Studies Chest X-Ray 03/06/22 13:18 IMPRESSION: No acute abnormality is seen. Stable examination. Electronically Signed: Peter Davidson MD at 13:42 EST , Rhythm Strip Rhythm Strip: Sinus Rhythm Rate: 65 Ectopy: None EKG Initial EKG: Attestation: I personally reviewed and interpreted this EKG as follows: Interpretation: Sinus Rhythm and No Acute Injury Pattern Prior EKG tracings: available for review (02/07/2020) Prior: Unchanged Discharge Plan Triage Chief Complaint: Chest Pain ED Provider: Praful Smith Dx/Rx/DC Orders Clinical Impression: Chest pain, Diastolic dysfunction, DELUNA (dyspnea on exertion) Instructions: ED Chest Pain, Uncertain Cause Prescriptions: No Action amlodipine 2.5 mg tablet 2.5 mg PO DAILY Rx Instructions: Patient unsure if she is taking or not ciprofloxacin HCl 250 mg tablet 250 mg PO BID cholecalciferol (vitamin D3) 25 mcg (1,000 unit) tablet 25 mcg PO DAILY nitroglycerin 0.4 mg Tablet, Sublingual 0.4 mg sublingual Q5M PRN (Reason: Cardiac/Chest Pain) Qty: 1 0RF clopidogrel [Plavix] 75 mg tablet 75 mg PO DAILY Qty: 90 3RF isosorbide mononitrate 60 mg tablet extended release 24 hr 60 mg PO DAILY Qty: 90 3RF losartan 50 mg tablet 50 mg PO DAILY Qty: 90 3RF metoprolol succinate 25 mg tablet extended release 24 hr 25 mg PO BID Qty: 180 4RF Eliquis 5 mg tablet 5 mg PO BID Qty: 180 4RF Hold Instructions: Nosebleed atorvastatin 40 mg tablet 40 mg PO QHS Qty: 90 3RF spironolactone 25 mg tablet 12.5 mg PO DAILY Qty: 30 6RF Primary Care Provider: Alexi Morin Chi Referrals: Gallo Castano MD [Med Staff - Active Staff] - As soon as possible Alexi Morin Chi, MD [Primary Care Provider] - Disposition Disposition: Home, Self Care
[2022-03-06 13:17] LABS: Absolute Lymphocyte Count 1.71 X10^3/uL (0.83-4.51); Absolute Neutrophil Count 4.3 X10^3/uL (2.0-7.7); Basophil# 0.04 X10^3/uL; Basophil% 0.6 % (0-1); Eosinophil# 0.28 X10^3/uL; Eosinophils% 4.1 % (0-5); Hematocrit 36.9 % (37-47); Hemoglobin 11.5 g/dL (12.0-15.0); Lymphocyte # 1.71 X10^3/ul (0.83-4.51); Mean Corp Hgb Conc 31.2 g/dL (32-36); Mean Corpuscular Hgb 25.8 pg (27.0-32.0); Mean Corpuscular Volume 82.9 fL (81-99); Mean Platelet Vol. 9.4 fl (6.2-12.0); Monocyte# 0.47 X10^3/uL; Monocyte% 6.9 % (0-10); NRBC Flagged by Analyzer 0 % (0-5); Neutrophil # 4.32 X10^3/uL (2.7-7.7); Platelet Count 320 K/mm3 (150-450); RBC Distribution Width CV 15.1 % (11.6-14.6); RBC Distribution Width SD 45.7 fl (35.1-43.9); Red Blood Count 4.45 M/mm3 (4.2-5.4); White Blood Count 6.9 K/mm3 (4.4-11.0)
--- NOTE | 2022-03-06 13:18 | RAD_ITS ---
STUDY: X-RAY CHEST REASON FOR EXAM: Female, 76 years old. Chest pain TECHNIQUE: PA and lateral views of the chest. COMPARISON: Comparison is made with prior study of 07/11/2021. FINDINGS: EKG electrodes are seen. The lungs are clear and expanded. There is no demonstrated pleural abnormality. Normal size heart. Normal mediastinum and sung. Normal visualized pulmonary arteries. There is atherosclerotic calcification of the aortic arch with tortuosity. There are diffuse degenerative changes of the visualized thoracic spine. Prior rotator cuff surgery on the right shoulder. Prior cholecystectomy. RAD/Chest PA and Lateral IMPRESSION: No acute abnormality is seen. Stable examination. Electronically Signed: Peter Davidson MD at 13:42 EST ,
[2022-03-06 13:35] LABS: Anion Gap 6 (5-15); BUN 16 mg/dL (7-18); BUN/Creat Ratio 17.1 RATIO (10-20); Calcium,Total 9.1 mg/dL (8.5-10.1); Chloride 107 mmol/L (98-107); Creatinine, Serum 0.94 mg/dL (0.55-1.02); EST Glomerular Filtration Rate 62 mL/min (>60); Est Glom Filt Rate - Afr Amer 75 mL/min (>60); Estimated Creatinine Clearance 37.71 ml/min; Glucose 113 mg/dL (74-106); Potassium 4.1 mmol/L (3.5-5.1); Sodium Level 142 mmol/L (136-145); Troponin-I HS 7 pg/mL (3.0-54.0)
[2022-03-06 13:43] VITALS: BP 110/62; PULSE 70
[2022-03-06] MEDS: Nitroglycerin SL (ED/IMG/CATH) 0.4 MG TABLET SL (13:43)
[2022-03-06] MEDS: Aspirin 81 MG TAB.CHEW 162 MG PO (13:43)
[2022-03-06 14:27] VITALS: BP 126/54; PULSE 62; RESP 20; O2SAT 96
[2022-03-06] MEDS: Mag Hydrox/Al Hydrox/Simeth 30 ML UDC PO (14:40)
[2022-03-06 15:05] VITALS: BP 111/62; PULSE 63; RESP 17; O2SAT 98
[2022-03-06] MEDS: Albuterol 2.5 MG/3 ML VIAL.NEB. INHALATION (15:19)
[2022-03-06 15:22] VITALS: PULSE 66; RESP 16
[2022-03-06 15:55] VITALS: BP 133/64; PULSE 71; RESP 16; O2SAT 98
== END 2022-03-06 15:56 | disposition home or self-care (01) ==
PROVIDERS: Emergency Provider Emergency Medicine; PCP Family Medicine Geriatric Medicine; Visit Provider Emergency Medicine
DX: R07.9 Chest pain, unspecified (principal); E78.5 Hyperlipidemia, unspecified; R60.0 Localized edema; I25.10 Atherosclerotic heart disease of native coronary artery without angina pectoris; I10 Essential (primary) hypertension; Z82.3 Family history of stroke; R06.00 Dyspnea, unspecified; E66.9 Obesity, unspecified; Z95.5 Presence of coronary angioplasty implant and graft; I25.2 Old myocardial infarction
CPT/HCPCS: 71046; 80048; 84484; 85025; 93005; 94640; 99285

== ENCOUNTER 2022-03-23 22:05 | Observation (INO) | payer MEDICARE, SELFPAY ==
[2021-03-16 14:15] VITALS: BMI 37.3
[2022-03-23 22:05] VITALS: BP 92/79; PULSE 69; RESP 17; TEMP 36.8; O2SAT 99; BMI 42.5
--- NOTE | 2022-03-23 22:42 | ED.VIS.CHEST ---
HPI History of Present Illness Chief Complaint: Chest Pain Narrative Narrative: 76-year-old female here with chest pain. The patient states she developed acute onset of chest pain that she describes as pressure nonradiating midsternal worse with exertion and associated shortness of breath that occurred today at approximately 8:30 PM. States she had 1 episode of nonbloody nonbilious vomitus and near syncope. Denies missed doses of her anticoagulation. Notes a cough. The patient denies recent surgery in the last 4 weeks or immobilization in the last 3 days, denies previous diagnosis of DVT or PE, hemoptysis, unilateral leg swelling or malignancy with treatment the last 6 months. No estrogen use noted. Old chart reviewed: History of CAD status post SD, hyperlipidemia, hypertension, ischemic cardiomyopathy, status post left heart cath in July 2021, atrial fibrillation (on Eliquis) Last echocardiogram shows EF of 65% [facility] Medical History Arthritis Atherosclerosis of coronary artery of [place] heart without angina pectoris Atrial fibrillation Back pain Bilateral edema of lower extremity Bone fracture Breast lump in female Cardiac arrest Cataracts, bilateral Chronic venous insufficiency of lower extremity Contusion of right lower leg, sequela Depression Fibromyalgia Gastroesophageal reflux disease Generalized osteoarthritis GERD (gastroesophageal reflux disease) Hemorrhoids History of back problems History of left heart catheterization (LHC) (~07/22/21) HTN (hypertension) Hyperlipidemia Hypokalemia Incontinence Left breast lump Myocardial infarct Neuropathy of right lower extremity Obesity Osteoarthritis of knee Rheumatoid arthritis Shoulder pain UTI (urinary tract infection) Vitamin deficiency Home Medications nitroglycerin 0.4 mg sublingual tablet 0.4 mg sublingual Q5M PRN Cardiac/Chest Pain #1 BOTTLE 12/05/20 [Rx Last Taken Unknown] clopidogrel 75 mg tablet (Plavix) 75 mg PO DAILY #90 tabs 09/14/21 [Rx Last Taken Unknown] isosorbide mononitrate 60 mg tablet,extended release 24 hr 60 mg PO DAILY #90 tabs 09/14/21 [Rx Last Taken Unknown] losartan 50 mg tablet 50 mg PO DAILY BP #90 tabs 09/14/21 [Rx Last Taken Unknown] metoprolol succinate 25 mg tablet,extended release 24 hr 25 mg PO BID #180 tabs 09/14/21 [Rx Last Taken Unknown] amlodipine 2.5 mg tablet 2.5 mg PO DAILY 12/01/21 [History Last Taken Unknown] atorvastatin 40 mg tablet 40 mg PO QHS Cholestrol #90 tabs 01/16/22 [Rx Last Taken Unknown] cholecalciferol (vitamin D3) 25 mcg (1,000 unit) tablet 25 mcg PO DAILY SUPPLEMENT 02/28/22 [History Last Taken Unknown] spironolactone 25 mg tablet 12.5 mg PO DAILY #30 tabs 03/03/22 [Rx Last Taken Unknown] apixaban 5 mg tablet (Eliquis) 5 mg PO BID #180 tabs 03/20/22 [Rx Last Taken Unknown] Allergy/AdvReac Type Severity Reaction Status Date / Time bee pollen Allergy Anaphylaxis Verified 03/23/22 22:09 latex Allergy Swelling Verified 03/23/22 22:09 morphine Allergy Other Verified 03/23/22 22:09 Penicillins Allergy Hives Verified 03/23/22 22:09 hydrocodone bitartrate AdvReac Abd Verified 03/23/22 22:09 [From Vicodin] cramps/diarrhea Family History Father Diabetes Heart disease Hypertension CVA (cerebral vascular accident) Parkinson disease Mother Breast cancer Hypertension Grandmother Cancer pancreatic cancer Ovarian cancer Son Anesthesia complication Brother Asthma Arthritis Diabetes Respiratory disease Grandfather Lung cancer CVA (cerebral vascular accident) Surgical History Hematoma history bilateral breast biopsies History of bilateral knee replacement History of cataract surgery History of coronary artery stent placement (11/16/20) History of hysterectomy History of laparoscopic cholecystectomy History of left breast biopsy (~11/2017) History of repair of right rotator cuff History of tonsillectomy and adenoidectomy Hx of appendectomy Social History household members: spouse Smoking Status: Never smoker alcohol intake: never substance use type: does not use caffeine: Yes Type: carbonated beverages Number of servings: 1 and coffee Number of servings: 1 additional social history: DOES NOT USE IBUPROFEN ROS ROS ED ROS Narrative Constitutional: Denies fever HEENT: Denies sore throat Neck: Denies neck pain Cardiovascular: Endorses chest pain Respiratory: Endorses shortness of breath GI: Denies nausea vomiting or abdominal pain : Denies changes in urinary habits Musculoskeletal: Denies muscle or joint pain Neurologic: Denies numbness weakness or loss of sensation Skin denies rash EXAM Physical Exam Narrative Exam Narrative: Nursing triage notes reviewed, Vital signs reviewed Constitutional: please see mdm HENT: MMM Eyes: Pupils equal round and reactive to light, Extraocular muscles intact Neck: No stridor, no JVD, full neck ROM Lungs: Clear to auscultation, No wheezing or rales. No increased work of breathing, no conversational dyspnea, no accessory muscle use, no nasal flaring. No respiratory distress noted Heart: Regular rate and rhythm, No murmurs, No rubs and No gallops, 2+ distal pulses (radial, femoral, posterior tibial) in all extremities Abdomen: Soft, there is no tenderness, rigidity, rebound or guarding, no obvious peritoneal signs, no palpable pulsatile abdominal masses, no auscultated abdominal bruit : No CVAT Extremities: No edema Neuro: No focal neurological deficits, cranial nerves II through XII intact, 5/5 strength in all extremities. Intact sensation to light touch in all extremities, 2+ reflexes bilateral patella dens. Normal gait. No ataxia. Skin: No rash or lesions noted Const Vital Signs: 03/23/22 22:05 03/23/22 23:01 Temperature 98.3 F Temperature Source Temporal Pulse Rate 69 Respiratory Rate 17 Blood Pressure 92/79 Blood Pressure Mean 83 Pulse Ox 99 Oxygen Delivery Method Nasal Cannula Room Air Oxygen Flow Rate (L/min) 2 Heart Score History: Highly Suspicious ECG: Normal Age: >/= 65 years Risk Factors: >/= 3 Risk Factors or History of CAD Troponin: </= Normal Limit Score: 6 MDM MDM MDM Narrative Medical decision making narrative: 76-year-old female here with chest pain in the setting of CAD status post stents, hyperlipidemia, hypertension, atrial fibrillation. Patient was hemodynamically stable, afebrile, nontoxic-appearing. Ischial blood pressure was documented as 90 systolic however she was 160 systolic my arrival in the room. Given the patient's chest pain concern for ACS, anemia, pneumonia, viral infections. Less concerned about pulmonary embolism as patient is fully anticoagulated and has a low risk Wells score. The patient had symmetric pulses, no concerning history and a nonfocal neurologic exam therefore less concerned about aortic pathology at this time I obtained a broad lab and imaging work-up to further elucidate the etiology of the patient complaints. EKG without evidence of STEMI. Initial troponin was negative. Patient was mildly anemic. She had no evidence of severe electrolyte abnormalities her BNP is mildly elevated consistent with increased volume overload chest x-ray is negative for pneumonia or aortic pathology. Given the patient's advanced age, elevated heart score she is high risk for mace as such she was admitted for further monitoring, cardiac biomarkers trending, cardiology consultation. Discussed with inpatient physician who accepted the patient's case. Lab Data Attestation: I reviewed the patient's lab results. Lab results narrative: CBC with no leukocytosis, anemia, no thrombocytopenia BMP with no significant electrolyte abnormalities, no anion gap or [place] Troponin is negative, no evidence of myocardial ischemia BNP mildly elevated consistent with increased ventricular stretch, increased transmural wall pressure, volume overload Magnesium level within normal limits Labs: Laboratory Results - last 24 hr 03/23/22 03/23/22 03/23/22 22:21 22:21 22:21 WBC 6.8 RBC 4.31 Hgb 11.1 L Hct 34.9 L MCV 81.0 MCH 25.8 L MCHC 31.8 L RDW Std Deviation 43.8 RDW Coeff of April 14.9 H Plt Count 294 MPV 10.0 Immature Gran % (Auto) 0.300 Neut % (Auto) 58.7 Lymph % (Auto) 29.2 Dickens % (Auto) 7.7 Eos % (Auto) 3.4 Baso % (Auto) 0.7 Absolute Neuts (auto) 4.0 Absolute Lymphs (auto) 1.98 Nucleated RBC % 0 Sodium 141 Potassium 4.4 Chloride 109 H Carbon Dioxide 28.0 Anion Gap 4 L BUN 21 H Creatinine 0.95 Estim Creat Clear Calc 37.32 Est GFR (MDRD) Af Amer 74 Est GFR (MDRD) Non-Af 61 BUN/Creatinine Ratio 22.1 H Glucose 96 Calcium 9.5 Magnesium 2.4 Troponin I High Sens 8 B-Natriuretic Peptide 173.2 H Radiography Chest X-Ray - ED: Read by ED Physician Diagnostic Testing: Clinical Impression(s) from Imaging Studies Chest X-Ray 03/23/22 22:45 IMPRESSION: No evidence of active intrathoracic disease. Electronically Signed: Charity Campa MD at 23:34 EST , I have personally reviewed the patient's chest x-ray. Chest x-ray is unremarkable for pulmonary edema, pneumothorax, pneumonia or focal cardiopulmonary abnormality. EKG Initial EKG: Attestation: I personally reviewed and interpreted this EKG as follows: Comments: EKG with normal sinus rhythm, left axis deviation, normal intervals, no STEMI, T wave inversions in lead III, similar to prior EKG on March 06, 2022 Discharge Plan Disposition Disposition: Acute Care Hospital [facility] Discharge Date/Time: 03/24/22 01:15
--- NOTE | 2022-03-23 22:45 | RAD_ITS ---
STUDY: X-RAY CHEST REASON FOR EXAM: Female, 76 years old. chest pain TECHNIQUE: AP portable. 11:01 PM. COMPARISON: 03/06/2022. FINDINGS: LUNGS: No consolidation. No pneumothorax. MEDIASTINUM: Aorta tortuous and atherosclerotic. CARDIAC SILHOUETTE: Not enlarged. BONES AND SOFT TISSUES: Surgical anchor right humeral head. RAD/Chest 1 View (Portable) IMPRESSION: No evidence of active intrathoracic disease. Electronically Signed: Charity Campa MD at 23:34 EST ,
--- NOTE | 2022-03-23 22:45 | EKG12_ITS ---
Test Reason : CP Blood Pressure : / mmHG Vent. Rate : 069 BPM Atrial Rate : 069 BPM P-R Int : 180 ms QRS Dur : 072 ms QT Int : 426 ms P-R-T Axes : 058 -01 001 degrees QTc Int : 456 ms Normal sinus rhythm Normal ECG Confirmed by TEJAL BENNETT, AISHWARYA ([id number]), graphic editor CLAUDIA DIOP ([id number]) on 03/28/2022 11:39:20 AM Referred By: ROLAN Confirmed By:AISHWARYA TOURE MD
[2022-03-23 23:21] LABS: Absolute Lymphocyte Count 1.98 X10^3/uL (0.83-4.51); Basophil# 0.05 X10^3/uL; Basophil% 0.7 % (0-1); Eosinophil# 0.23 X10^3/uL; Eosinophils% 3.4 % (0-5); Hematocrit 34.9 % (37-47); Hemoglobin 11.1 g/dL (12.0-15.0); Lymphocyte # 1.98 X10^3/ul (0.83-4.51); Lymphocyte % 29.2 % (19-41); Mean Corp Hgb Conc 31.8 g/dL (32-36); Mean Corpuscular Hgb 25.8 pg (27.0-32.0); Monocyte# 0.52 X10^3/uL; Monocyte% 7.7 % (0-10); NRBC Flagged by Analyzer 0 % (0-5); Neutrophil # 3.98 X10^3/uL (2.7-7.7); Neutrophil % 58.7 % (47-70); Platelet Count 294 K/mm3 (150-450); RBC Distribution Width CV 14.9 % (11.6-14.6); RBC Distribution Width SD 43.8 fl (35.1-43.9); Red Blood Count 4.31 M/mm3 (4.2-5.4); White Blood Count 6.8 K/mm3 (4.4-11.0)
[2022-03-23 23:25] LABS: Anion Gap 4 (5-15); BUN 21 mg/dL (7-18); BUN/Creat Ratio 22.1 RATIO (10-20); Calcium,Total 9.5 mg/dL (8.5-10.1); Chloride 109 mmol/L (98-107); Creatinine, Serum 0.95 mg/dL (0.55-1.02); EST Glomerular Filtration Rate 61 mL/min (>60); Est Glom Filt Rate - Afr Amer 74 mL/min (>60); Estimated Creatinine Clearance 37.32 ml/min; Glucose 96 mg/dL (74-106); Magnesium 2.4 mg/dL (1.6-2.6); Potassium 4.4 mmol/L (3.5-5.1); Sodium Level 141 mmol/L (136-145); Troponin-I HS (w/2H Reflex) 8 pg/mL (3.0-54.0)
[2022-03-23 23:46] LABS: BNP,B-Type NATRIURETIC PEPTIDE 173.2 pg/mL (0-100)
[2022-03-24] VITALS (13 sets, daily range): BP systolic 112–179; BP diastolic 57–77; PULSE 62–118; RESP 16–18; TEMP 36.4–36.9; O2SAT 95–98; BMI 39.6
--- NOTE | 2022-03-24 00:27 | HP.PCM.HOS_ITS ---
HPI - General General Date of Admission: 03/24/22 Date of Service: 03/24/22 Chief Complaint: chest pain HPI Narrative JIE HENRIQUEZ, is a 76 F with a significant history of CAD status post stents who presents to the emergency department with excruciating substernal chest pain that started few hours before presentation. Her chest pain was nonradiating. She denies any aggravating factors to the chest pain. Associated with her symptoms is shortness of breath, nausea and vomiting. Patient reports taking nitroglycerin x2 with some relief. [facility] Medical History Arthritis Atherosclerosis of coronary artery of [place] heart without angina pectoris Atrial fibrillation Back pain Bilateral edema of lower extremity Bone fracture Breast lump in female Cardiac arrest Cataracts, bilateral Chronic venous insufficiency of lower extremity Contusion of right lower leg, sequela Depression Fibromyalgia Gastroesophageal reflux disease Generalized osteoarthritis GERD (gastroesophageal reflux disease) Hemorrhoids History of back problems History of left heart catheterization (LHC) (~07/22/21) HTN (hypertension) Hyperlipidemia Hypokalemia Incontinence Left breast lump Myocardial infarct Neuropathy of right lower extremity Obesity Osteoarthritis of knee Rheumatoid arthritis Shoulder pain UTI (urinary tract infection) Vitamin deficiency Home Medications nitroglycerin 0.4 mg sublingual tablet 0.4 mg sublingual Q5M PRN Cardiac/Chest Pain #1 BOTTLE 12/05/20 [Rx Last Taken Unknown] clopidogrel 75 mg tablet (Plavix) 75 mg PO DAILY #90 tabs 09/14/21 [Rx Last Taken Unknown] isosorbide mononitrate 60 mg tablet,extended release 24 hr 60 mg PO DAILY #90 tabs 09/14/21 [Rx Last Taken Unknown] losartan 50 mg tablet 50 mg PO DAILY BP #90 tabs 09/14/21 [Rx Last Taken Unknown] metoprolol succinate 25 mg tablet,extended release 24 hr 25 mg PO BID #180 tabs 09/14/21 [Rx Last Taken Unknown] amlodipine 2.5 mg tablet 2.5 mg PO DAILY 12/01/21 [History Last Taken Unknown] atorvastatin 40 mg tablet 40 mg PO QHS Cholestrol #90 tabs 01/16/22 [Rx Last Taken Unknown] cholecalciferol (vitamin D3) 25 mcg (1,000 unit) tablet 25 mcg PO DAILY SUPPLEMENT 02/28/22 [History Last Taken Unknown] spironolactone 25 mg tablet 12.5 mg PO DAILY #30 tabs 03/03/22 [Rx Last Taken Unknown] apixaban 5 mg tablet (Eliquis) 5 mg PO BID #180 tabs 03/20/22 [Rx Last Taken Unknown] Allergy/AdvReac Type Severity Reaction Status Date / Time bee pollen Allergy Anaphylaxis Verified 03/23/22 22:09 latex Allergy Swelling Verified 03/23/22 22:09 morphine Allergy Other Verified 03/23/22 22:09 Penicillins Allergy Hives Verified 03/23/22 22:09 hydrocodone bitartrate AdvReac Abd Verified 03/23/22 22:09 [From Vicodin] cramps/diarrhea Family History Father Diabetes Heart disease Hypertension CVA (cerebral vascular accident) Parkinson disease Mother Breast cancer Hypertension Grandmother Cancer pancreatic cancer Ovarian cancer Son Anesthesia complication Brother Asthma Arthritis Diabetes Respiratory disease Grandfather Lung cancer CVA (cerebral vascular accident) Surgical History Hematoma history bilateral breast biopsies History of bilateral knee replacement History of cataract surgery History of coronary artery stent placement (11/16/20) History of hysterectomy History of laparoscopic cholecystectomy History of left breast biopsy (~11/2017) History of repair of right rotator cuff History of tonsillectomy and adenoidectomy Hx of appendectomy Social History household members: spouse Smoking Status: Never smoker alcohol intake: never substance use type: does not use caffeine: Yes Type: carbonated beverages Number of servings: 1 and coffee Number of servings: 1 additional social history: DOES NOT USE IBUPROFEN ROS ROS Narrative Pertinent positives and pertinent negatives as noted in HPI. All other systems were reviewed and are negative Vital Signs Vital Signs Vital Signs: 03/23/22 22:05 03/23/22 23:01 Temperature 98.3 F Temperature Source Temporal Pulse Rate 69 Respiratory Rate 17 Blood Pressure 92/79 Blood Pressure Mean 83 Pulse Ox 99 Oxygen Delivery Method Nasal Cannula Room Air Oxygen Flow Rate (L/min) 2 Weight Weight: 98.8 kg Body Mass Index (BMI) 42.5 Physical Exam Narrative Physical exam: General: Well-nourished, well-developed. Head: Normocephalic, atraumatic, no tenderness Eyes: Vision is grossly intact. EOMI ENT, no trauma, moist mucous membranes, no rhinorrhea Neck: Nontender, full range of motion. CVS: Regular rate and rhythm. S1-S2 present. No murmur, gallop or rub. Respiratory : clear to auscultation bilaterally, chest wall nontender, no wheezing Abdomen: Soft, nontender, nondistended, normal bowel sounds, no masses : Deferred Back: Nontender, no CVA tenderness. Extremities: Nontender full range of motion, no trauma Skin: Normal color, no trauma, abrasions Neuro: Alert, oriented, cranial nerves II through XII grossly intact. Psychiatry: Normal mood. Normal affect. Not depressed. Not anxious. Results Lab / Micro Data Result Diagrams: 03/23/22 22:21 03/23/22 22:21 Labs: Laboratory Results - last 24 hr 03/23/22 22:21: WBC 6.8, RBC 4.31, Hgb 11.1 L, Hct 34.9 L, MCV 81.0, MCH 25.8 L, MCHC 31.8 L, RDW Std Deviation 43.8, RDW Coeff of April 14.9 H, Plt Count 294, MPV 10.0, Immature Gran % (Auto) 0.300, Neut % (Auto) 58.7, Lymph % (Auto) 29.2, [place] % (Auto) 7.7, Eos % (Auto) 3.4, Baso % (Auto) 0.7, Absolute Neuts (auto) 4.0, Absolute Lymphs (auto) 1.98, Nucleated RBC % 0 03/23/22 22:21: Sodium 141, Potassium 4.4, Chloride 109 H, Carbon Dioxide 28.0, Anion Gap 4 L, BUN 21 H, Creatinine 0.95, Estim Creat Clear Calc 37.32, Est GFR (MDRD) Af Amer 74, Est GFR (MDRD) Non-Af 61, BUN/Creatinine Ratio 22.1 H, Glucose 96, Calcium 9.5, Magnesium 2.4, Troponin I High Sens 8 03/23/22 22:21: B-Natriuretic Peptide 173.2 H Radiology Impression Chest X-Ray 03/23/22 22:45 IMPRESSION: No evidence of active intrathoracic disease. Electronically Signed: Charity Campa MD at 23:34 EST , Assessment & Plan Assessment/Plan (1) Chest pain: (2) HTN (hypertension): QUALIFIERS: Hypertension type: primary hypertension Qualified Code(s): I10 - Essential (primary) hypertension PLAN: Plan Chest Pain Place on a monitored bed at PCU Actual CXR image was independently visualized and interpreted. I agree with radiologist interpretation of no evidence of active intrathoracic disease. Actual EKG tracing was independently visualized. EKG tracing showed sinus rhythm. Noted to elevations in lead III and T wave flattening in aVF is un changed compared to EKG on March 06, 2022. Home Plavix and Eliquis continued. Losartan metoprolol continued. SL NTG 0.4 mg prn as needed for chest pain ordered Will check lipid panel. Statin: Home high intensity statin continued. Initial high sensitive troponin was 8. Trend. BNP was 173.2. In view of patient having last heart catheterization on 07/22/2021 will consult cardiology. conclusion of heart catheterization on 07/22/2021: iFR in the distal left main/ostial LAD and RCA consistent with stenoses that can be treated medically. BNP of 173.2. Echocardiogram on 10/04/2021: EF 65%; mild mitral valve insufficiency; mild tricuspid valve insufficiency; mild focal aortic valve thickening; right ventricle systolic pressure 31 mmHg; no evidence of diastolic dysfunction. Hypertension Blood pressure is stable Home blood pressure medication continued. Trend blood pressure and adjust blood pressure medications. DVT prophylaxis: Not indicated as patient is on Eliquis. Eliquis continued. Charges/Coding Visit Charges OBSV E&M: 47971 Initial observation care L3
[2022-03-24 00:59] LABS: Reflex Troponin-HS? (from REC) Y
[2022-03-24 02:42] LABS: Troponin-I HS 10 pg/mL (3.0-54.0)
[2022-03-24 04:54] LABS: Absolute Lymphocyte Count 1.87 X10^3/uL (0.83-4.51); Absolute Neutrophil Count 3.6 X10^3/uL (2.0-7.7); Basophil# 0.03 X10^3/uL; Basophil% 0.5 % (0-1); Eosinophil# 0.23 X10^3/uL; Eosinophils% 3.6 % (0-5); Hematocrit 32.2 % (37-47); Hemoglobin 10.2 g/dL (12.0-15.0); Lymphocyte # 1.87 X10^3/ul (0.83-4.51); Lymphocyte % 29.6 % (19-41); Mean Corp Hgb Conc 31.7 g/dL (32-36); Mean Corpuscular Volume 81.9 fL (81-99); Mean Platelet Vol. 9.7 fl (6.2-12.0); Monocyte# 0.55 X10^3/uL; Monocyte% 8.7 % (0-10); NRBC Flagged by Analyzer 0 % (0-5); Neutrophil # 3.62 X10^3/uL (2.7-7.7); Neutrophil % 57.4 % (47-70); Platelet Count 268 K/mm3 (150-450); RBC Distribution Width CV 14.9 % (11.6-14.6); RBC Distribution Width SD 44.7 fl (35.1-43.9); Red Blood Count 3.93 M/mm3 (4.2-5.4); White Blood Count 6.3 K/mm3 (4.4-11.0)
[2022-03-24 05:12] LABS: Troponin-I HS 10 pg/mL (3.0-54.0)
[2022-03-24 05:13] LABS: Anion Gap 6 (5-15); BUN 19 mg/dL (7-18); BUN/Creat Ratio 23.4 RATIO (10-20); Calcium,Total 8.8 mg/dL (8.5-10.1); Chloride 111 mmol/L (98-107); Cholesterol 109 mg/dL (200); Creatinine, Serum 0.81 mg/dL (0.55-1.02); EST Glomerular Filtration Rate 73 mL/min (>60); Est Glom Filt Rate - Afr Amer 88 mL/min (>60); Estimated Creatinine Clearance 43.77 ml/min; Glucose 94 mg/dL (74-106); High Density Lipoprotein 35 mg/dL; Potassium 3.9 mmol/L (3.5-5.1); Sodium Level 142 mmol/L (136-145); Triglycerides 75 mg/dL; Very Low Density Lipoprotein 15 mg/dL (5-40)
--- NOTE | 2022-03-24 09:35 | CON.PCM.CA_ITS ---
Assessment & Plan Assessment/Plan (1) Chest pain: PLAN: Troponins have been negative. EKG with no new change. I believe patient's pain is noncardiac. I would recommend doing a CT scan of her chest. (2) Coronary artery disease: PLAN: History of coronary artery disease. Her most recent coronary angiography was in July of this year. At that time, FFR of the distal left main/ostial LAD was performed. It was not significant at 0.95. Also FFR of the mid RCA lesion was performed. It was normal at 1.0. Patient does have a very tight ostial diagonal lesion. The diagonal artery however is only 1.5 to 2 mm in size and medical management is recommended for it. Increase patient's beta-blockers as tolerated. Increase amlodipine. No further cardiac work-up at present. (3) HTN (hypertension): QUALIFIERS: Hypertension type: primary hypertension Qualified Code(s): I10 - Essential (primary) hypertension PLAN: Uncontrolled. Increase beta-blockers. Increase amlodipine. HPI Consult Data Date of Consult: 03/24/22 HPI Narrative HPI Narrative: The patient has previous history of coronary artery disease. She presented to the emergency room after acute onset of sharp excruciating anterior chest pain. According to her, it radiated to the back. Per her, any movement of the body would increase the discomfort level. Pain was persistent. Patient had an episode of vomiting associated with it. Patient also describes another type of pain which she perceives as heaviness across her anterior chest. That has been constant over the last 2 to 3 weeks with no exacerbating or relieving factors identified. [facility] Medical History Arthritis Atherosclerosis of coronary artery of [place] without angina pectoris Atrial fibrillation Back pain Bilateral edema of lower extremity Bone fracture Breast lump in female Cardiac arrest Cataracts, bilateral Chronic venous insufficiency of lower extremity Contusion of right lower leg, sequela Depression Fibromyalgia Gastroesophageal reflux disease Generalized osteoarthritis GERD (gastroesophageal reflux disease) Hemorrhoids History of back problems History of left heart catheterization (LHC) (~07/22/21) HTN (hypertension) Hyperlipidemia Hypokalemia Incontinence Left breast lump Myocardial infarct Neuropathy of right lower extremity Obesity Osteoarthritis of knee Rheumatoid arthritis Shoulder pain UTI (urinary tract infection) Vitamin deficiency Home Medications nitroglycerin 0.4 mg sublingual tablet 0.4 mg sublingual Q5M PRN Cardiac/Chest Pain #1 BOTTLE 12/05/20 [Rx Last Taken Unknown] clopidogrel 75 mg tablet (Plavix) 75 mg PO DAILY #90 tabs 09/14/21 [Rx Last Taken Unknown] isosorbide mononitrate 60 mg tablet,extended release 24 hr 60 mg PO DAILY #90 tabs 09/14/21 [Rx Last Taken Unknown] losartan 50 mg tablet 50 mg PO DAILY BP #90 tabs 09/14/21 [Rx Last Taken Unknown] metoprolol succinate 25 mg tablet,extended release 24 hr 25 mg PO BID #180 tabs 09/14/21 [Rx Last Taken Unknown] amlodipine 2.5 mg tablet 2.5 mg PO DAILY 12/01/21 [History Last Taken Unknown] atorvastatin 40 mg tablet 40 mg PO QHS Cholestrol #90 tabs 01/16/22 [Rx Last Taken Unknown] cholecalciferol (vitamin D3) 25 mcg (1,000 unit) tablet 25 mcg PO DAILY SUPPLEMENT 02/28/22 [History Last Taken Unknown] spironolactone 25 mg tablet 12.5 mg PO DAILY #30 tabs 03/03/22 [Rx Last Taken Unknown] apixaban 5 mg tablet (Eliquis) 5 mg PO BID #180 tabs 03/20/22 [Rx Last Taken Unknown] Allergy/AdvReac Type Severity Reaction Status Date / Time bee pollen Allergy Anaphylaxis Verified 03/23/22 22:09 latex Allergy Swelling Verified 03/23/22 22:09 morphine Allergy Other Verified 03/23/22 22:09 Penicillins Allergy Hives Verified 03/23/22 22:09 hydrocodone bitartrate AdvReac Abd Verified 03/23/22 22:09 [From Vicodin] cramps/diarrhea Family History Father Diabetes Heart disease Hypertension CVA (cerebral vascular accident) Parkinson disease Mother Breast cancer Hypertension Grandmother Cancer pancreatic cancer Ovarian cancer Son Anesthesia complication Brother Asthma Arthritis Diabetes Respiratory disease Grandfather Lung cancer CVA (cerebral vascular accident) Surgical History Hematoma history bilateral breast biopsies History of bilateral knee replacement History of cataract surgery History of coronary artery stent placement (11/16/20) History of hysterectomy History of laparoscopic cholecystectomy History of left breast biopsy (~11/2017) History of repair of right rotator cuff History of tonsillectomy and adenoidectomy Hx of appendectomy Social History household members: spouse Smoking Status: Never smoker alcohol intake: never substance use type: does not use caffeine: Yes Type: carbonated beverages Number of servings: 1 and coffee Number of servings: 1 additional social history: DOES NOT USE IBUPROFEN Physical Exam Narrative Comfortable. Lying flat in the bed. No apparent distress. Heart sounds 1 and 2 are normal. Chest clear to auscultation bilaterally. Some reproducible discomfort on palpation of right anterior chest. Abdomen soft. Bowel sounds positive. Alert oriented x3. No ankle edema noted. Risk Stratification Risk Stratification Applicable: No Objective Data Vital Signs: Vital Signs Temp Pulse Resp BP Pulse Ox O2 Del Method O2 Flow Rate 97.9 F 63 18 179/77 H 97 Room Air 2 03/24/22 06:16 03/24/22 07:28 03/24/22 06:16 03/24/22 06:16 03/24/22 06:16 03/24/22 08:03 03/23/22 22:05 Oxygen Flow Rate (L/min) 2 Oxygen Delivery Method Room Air Weight: 203 lb 0.732 oz Body Mass Index (BMI) 39.6 Lab / Micro Data Result Diagrams: 03/24/22 04:45 03/24/22 04:45 Labs: Laboratory Results - last 24 hr 03/23/22 22:21: WBC 6.8, RBC 4.31, Hgb 11.1 L, Hct 34.9 L, MCV 81.0, MCH 25.8 L, MCHC 31.8 L, RDW Std Deviation 43.8, RDW Coeff of April 14.9 H, Plt Count 294, MPV 10.0, Immature Gran % (Auto) 0.300, Neut % (Auto) 58.7, Lymph % (Auto) 29.2, [place] % (Auto) 7.7, Eos % (Auto) 3.4, Baso % (Auto) 0.7, Absolute Neuts (auto) 4.0, Absolute Lymphs (auto) 1.98, Nucleated RBC % 0 03/23/22 22:21: Sodium 141, Potassium 4.4, Chloride 109 H, Carbon Dioxide 28.0, Anion Gap 4 L, BUN 21 H, Creatinine 0.95, Estim Creat Clear Calc 37.32, Est GFR (MDRD) Af Amer 74, Est GFR (MDRD) Non-Af 61, BUN/Creatinine Ratio 22.1 H, Glucose 96, Calcium 9.5, Magnesium 2.4, Troponin I High Sens 8 03/23/22 22:21: B-Natriuretic Peptide 173.2 H 03/24/22 02:14: Troponin I High Sens 10 03/24/22 04:45: WBC 6.3, RBC 3.93 L, Hgb 10.2 L, Hct 32.2 L, MCV 81.9, MCH 26.0 L, MCHC 31.7 L, RDW Std Deviation 44.7 H, RDW Coeff of April 14.9 H, Plt Count 268, MPV 9.7, Immature Gran % (Auto) 0.200, Neut % (Auto) 57.4, Lymph % (Auto) 29.6, [place] % (Auto) 8.7, Eos % (Auto) 3.6, Baso % (Auto) 0.5, Absolute Neuts (auto) 3.6, Absolute Lymphs (auto) 1.87, Nucleated RBC % 0 03/24/22 04:45: Sodium 142, Potassium 3.9, Chloride 111 H, Carbon Dioxide 25.0, Anion Gap 6, BUN 19 H, Creatinine 0.81, Estim Creat Clear Calc 43.77, Est GFR (MDRD) Af Amer 88, Est GFR (MDRD) Non-Af 73, BUN/Creatinine Ratio 23.4 H, Glucose 94, Calcium 8.8, Triglycerides 75, Cholesterol 109, LDL Cholesterol 59, VLDL Cholesterol 15, HDL Cholesterol 35 L 03/24/22 04:45: Troponin I High Sens 10 Micro: Microbiology 03/23/22 23:20 Nasal Secretion SARS-CoV-2 & FLU Antigen (Rapid) - Final Cardiology Labs/Tests 03/23/22 22:21: WBC 6.8, RBC 4.31, Hgb 11.1 L, Hct 34.9 L, MCV 81.0, MCH 25.8 L, MCHC 31.8 L, Plt Count 294, MPV 10.0, Immature Gran % (Auto) 0.300, Neut % (Auto) 58.7, Lymph % (Auto) 29.2, [place] % (Auto) 7.7, Eos % (Auto) 3.4, Baso % (Auto) 0.7, Absolute Neuts (auto) 4.0, Nucleated RBC % 0 03/23/22 22:21: Sodium 141, Potassium 4.4, Chloride 109 H, Carbon Dioxide 28.0, Anion Gap 4 L, BUN 21 H, Creatinine 0.95, Est GFR (MDRD) Af Amer 74, Est GFR (MDRD) Non-Af 61, BUN/Creatinine Ratio 22.1 H, Glucose 96, Calcium 9.5, Magnesium 2.4 03/23/22 22:21: B-Natriuretic Peptide 173.2 H 03/24/22 04:45: WBC 6.3, RBC 3.93 L, Hgb 10.2 L, Hct 32.2 L, MCV 81.9, MCH 26.0 L, MCHC 31.7 L, Plt Count 268, MPV 9.7, Immature Gran % (Auto) 0.200, Neut % (Auto) 57.4, Lymph % (Auto) 29.6, [place] % (Auto) 8.7, Eos % (Auto) 3.6, Baso % (Auto) 0.5, Absolute Neuts (auto) 3.6, Nucleated RBC % 0 03/24/22 04:45: Sodium 142, Potassium 3.9, Chloride 111 H, Carbon Dioxide 25.0, Anion Gap 6, BUN 19 H, Creatinine 0.81, Est GFR (MDRD) Af Amer 88, Est GFR (MDRD) Non-Af 73, BUN/Creatinine Ratio 23.4 H, Glucose 94, Calcium 8.8, Triglycerides 75, Cholesterol 109, LDL Cholesterol 59, VLDL Cholesterol 15, HDL Cholesterol 35 L Rhythm: EKG: ECHO: Stress Test: Cardiac Cath: PCI: CT Surgery: Holter monitor: EPS: PPM: CXR: Chest CT Scan: Radiography Diagnostic Testing: Radiology Impression Chest X-Ray 03/23/22 22:45 IMPRESSION: No evidence of active intrathoracic disease. Electronically Signed: Charity Campa MD at 23:34 EST ,
--- NOTE | 2022-03-24 09:43 | CT_ITS ---
STUDY: CTA CHEST REASON FOR EXAM: Female, 76 years old. Rule out dissection. Chest pain and shortness of breath. History of prior stent placement. RADIATION DOSAGE (If Supplied By Facility): CTDIvol = ( 16.76 ) mGy, DLP = ( 700.18 ) mGycm TECHNIQUE: The examination was performed with the intravenous administration of IV 100mL [id number]-[id number]. Post-processing of the angiographic images was performed, with multiplanar reformation and 3D reconstruction. Individualized dose optimization techniques were used for this CT. COMPARISON: Comparison is made with prior examination dated 02/07/2020. FINDINGS: Normal enhancement of the main pulmonary artery and right and left pulmonary arteries. Normal enhancement of the bilateral peripheral pulmonary arteries. There is no demonstrated pulmonary embolism. There is atherosclerotic calcification of the aortic arch with tortuosity. There is no demonstrated aortic dissection. There are calcifications of the coronary arteries. Normal mediastinum. Normal hilar regions. Normal visualized trachea and bronchi. The lungs are well expanded. Mild degree of increased linear markings at the lung bases slightly more prominent in the posterior medial segment of the left lower lobe. Normal pleura. Normal chest wall structures. There are degenerative changes of thoracic spine. Normal visualized upper abdomen. CT/CTA Chest W/WO Contrast IMPRESSION: No evidence of aortic dissection. No evidence of pulmonary embolism. Mild scarring at the lung bases slightly more prominent on the left side. Electronically Signed: Peter Davidson MD at 10:33 EST ,
[2022-03-24] MEDS: Isosorbide Mononitrate 60 MG Tablet PO (11:39)
[2022-03-24] MEDS: Losartan Potassium 50 MG Tablet PO (11:39)
[2022-03-24] MEDS: Spironolactone 25 MG Tablet 12.5 MG PO (11:40)
[2022-03-24] MEDS: Cholecalciferol (VIT D3) 25 MCG TABLET (1,000 UNITS) PO (11:40)
[2022-03-24] MEDS: Clopidogrel Bisulfate 75 MG Tablet PO (11:42)
[2022-03-24] MEDS: APIXABAN 5 MG TABLET PO (11:42)
[2022-03-24] MEDS: Metoprolol(XL)Succ 50 MG Tablet PO ×2 (11:47→22:11)
[2022-03-24] MEDS: amLODIPine 5 MG Tablet PO (11:50)
--- NOTE | 2022-03-24 13:18 | PN_ITS ---
Subjective Subjective Pt is a 76-year-old female with a history of coronary artery disease and PTCA/stents. She presented to the emergency room at [facility] early this morning complaining of excruciating substernal chest pain that had started a few hours prior to her presentation and had been constant. There was no radiation and she denied any aggravating factors. She was seen by cardiology today and her troponins have been negative. Cardiology feels her chest pain is noncardiac. I reviewed her past medical history and she has a history of GERD and has had nausea and vomiting recently. She tells me that she has had esophageal stenosis in the past and been dilated. The last time she was dilated was a few years ago and may be longer. Recently she has been experiencing difficulty swallowing, especially meats. She regurgitates liquid. Last night she had ham for dinner and the pain started after dinner. It radiated into the back. No rib pain. No hx of VTE. She is not coughing. Has not been taking a PPI or and H2B at home. Uses PRN bromoseltzer. Afebrile Vital signs stable Maintaining appropriate oxygen saturation on room air All lab was personally reviewed. Objective Data Objective Data Vital Signs: Vital Signs Temp Pulse Resp BP Pulse Ox O2 Del Method O2 Flow Rate 97.8 F 62 16 134/67 H 96 Room Air 2 03/24/22 11:19 03/24/22 11:47 03/24/22 11:19 03/24/22 11:47 03/24/22 11:19 03/24/22 11:19 03/23/22 22:05 Oxygen Flow Rate (L/min) 2 Oxygen Delivery Method Room Air Weight: 203 lb 0.732 oz Body Mass Index (BMI) 39.6 Lab / Micro Data Result Diagrams: 03/24/22 04:45 03/24/22 04:45 Labs: Laboratory Results - last 24 hr 03/23/22 22:21: WBC 6.8, RBC 4.31, Hgb 11.1 L, Hct 34.9 L, MCV 81.0, MCH 25.8 L, MCHC 31.8 L, RDW Std Deviation 43.8, RDW Coeff of April 14.9 H, Plt Count 294, MPV 10.0, Immature Gran % (Auto) 0.300, Neut % (Auto) 58.7, Lymph % (Auto) 29.2, [place] % (Auto) 7.7, Eos % (Auto) 3.4, Baso % (Auto) 0.7, Absolute Neuts (auto) 4.0, Absolute Lymphs (auto) 1.98, Nucleated RBC % 0 03/23/22 22:21: Sodium 141, Potassium 4.4, Chloride 109 H, Carbon Dioxide 28.0, Anion Gap 4 L, BUN 21 H, Creatinine 0.95, Estim Creat Clear Calc 37.32, Est GFR (MDRD) Af Amer 74, Est GFR (MDRD) Non-Af 61, BUN/Creatinine Ratio 22.1 H, Glucose 96, Calcium 9.5, Magnesium 2.4, Troponin I High Sens 8 03/23/22 22:21: B-Natriuretic Peptide 173.2 H 03/24/22 02:14: Troponin I High Sens 10 03/24/22 04:45: WBC 6.3, RBC 3.93 L, Hgb 10.2 L, Hct 32.2 L, MCV 81.9, MCH 26.0 L, MCHC 31.7 L, RDW Std Deviation 44.7 H, RDW Coeff of April 14.9 H, Plt Count 268, MPV 9.7, Immature Gran % (Auto) 0.200, Neut % (Auto) 57.4, Lymph % (Auto) 29.6, [place] % (Auto) 8.7, Eos % (Auto) 3.6, Baso % (Auto) 0.5, Absolute Neuts (auto) 3.6, Absolute Lymphs (auto) 1.87, Nucleated RBC % 0 03/24/22 04:45: Sodium 142, Potassium 3.9, Chloride 111 H, Carbon Dioxide 25.0, Anion Gap 6, BUN 19 H, Creatinine 0.81, Estim Creat Clear Calc 43.77, Est GFR (MDRD) Af Amer 88, Est GFR (MDRD) Non-Af 73, BUN/Creatinine Ratio 23.4 H, Glucose 94, Calcium 8.8, Triglycerides 75, Cholesterol 109, LDL Cholesterol 59, VLDL Cholesterol 15, HDL Cholesterol 35 L 03/24/22 04:45: Troponin I High Sens 10 Micro: Microbiology 03/23/22 23:20 Nasal Secretion SARS-CoV-2 & FLU Antigen (Rapid) - Final Radiography Diagnostic Testing: Radiology Impression Chest X-Ray 03/23/22 22:45 IMPRESSION: No evidence of active intrathoracic disease. Electronically Signed: Charity Campa MD at 23:34 EST , Chest CTA 03/24/22 09:43 IMPRESSION: No evidence of aortic dissection. No evidence of pulmonary embolism. Mild scarring at the lung bases slightly more prominent on the left side. Electronically Signed: Peter Davidson MD at 10:33 EST , Physical Exam Const alert, oriented x3 and no apparent distress Constitutional Narrative: Still having substernal discomfort but not as bad as last night. General Appearance: cooperative and well developed HEENT normocephalic Resp normal respiratory effort, normal air movement and clear to auscultation bilaterally Resp Narrative: No conversational dyspnea Cardio regular rate, regular rhythm, no murmurs, no rub and no gallops GI normal to inspection, nondistended, normoactive bowel sounds, soft to palpation and non-tender GI Narrative: obese. No guarding with palpation. Extremity Extremity Narrative: She has deformity of the distal right lower extremity secondary to surgery in the past. Does not wear compressions stockings. Mild peripheral edema more likely than not due to venous insufficiency. Skin Rashes: no rashes Neuro CN's II-XII intact bilaterally and no focal motor deficits Assessment & Plan Assessment/Plan (1) Chest pain: (2) Atrial fibrillation: QUALIFIERS: Atrial fibrillation type: paroxysmal Qualified Code(s ): I48.0 - Paroxysmal atrial fibrillation (3) GERD (gastroesophageal reflux disease): (4) Esophageal stenosis: (5) Dysphagia: (6) Iron deficiency anemia: (7) Chronic anticoagulation: PLAN: Plan 1. Start Protonix 40 mg IV twice daily. 2. GI cocktail now 3. Changed the diet to full liquid 4. Consult Dr. Greenfield - pt needs endoscopy at some point -0 if she is better in the AM she could probably be discharged home and the brought back as an OP for endoscopy. Charges/Coding Visit Charges Inpatient E&M: 28494 Subs Hosp L2
[2022-03-24 14:21] LABS: Ferritin 21 ng/mL (8-252); Iron 36 ug/dL (50-170); Iron Binding Capacity,Total 302 ug/dL (250-450); PERCENT IRON SATURATION 11.9 % (15.0-55.0)
[2022-03-24] MEDS: Mag Hydrox/Al Hydrox/Simeth 30 ML UDC PO (15:39)
--- NOTE | 2022-03-24 15:58 | CASEMGMT ---
RN SCOTTY NOTE: Intro role of CM to patient and BEAN form explained re: Observation status for treatment of chest pain. Explained hospitalization will be paid per her insurance policy for Outpatient billing and condition will continue to be evaluated for Inpt necessity. Also let pt know that [facility] sends paper in the billing packet with their phone number if questions arise. Discussed Pharmacy section of BEAN form and self administered medication guideline. Pt verbalizes understanding and does not have further questions. Form signed, copy made and placed in chart, and original given to pt. Pt denies having any discharge planning needs or concerns. Sadia VILLALTAN RN CM
--- NOTE | 2022-03-24 17:03 | CON.PCM_ITS ---
Assessment & Plan Assessment/Plan (1) Dysphagia: PLAN: She should undergo endoscopy to evaluate upper GI tract for esophageal web, esophageal stricture, esophageal stenosis, eosinophilic esophagitis, hiatal hernia. She was explained alternatives, risk, benefits including understanding bleeding, infection, sepsis, perforation, need for urgent . She will have an ASA of 3. Hold evening dose of Eliquis. HPI Consult Data Date of Consult: 03/24/22 HPI Narrative HPI Narrative: JIE HENRIQUEZ, is a 76-year-old female to [facility] with chest pain.? The patient states she developed acute onset of chest pain that she describes as pressure nonradiating midsternal worse with exertion and associated shortness of breath that occurred today at approximately 8:30 PM.? States she had 1 episode of nonbloody nonbilious vomitus and near syncope.? Denies missed doses of her anticoagulation.? Notes a cough.?She denies recent surgery in the last 4 weeks or immobilization in the last 3 days, denies previous diagnosis of DVT or PE, hemoptysis, unilateral leg swelling or malignancy with treatment the last 6 months.? She has a History of CAD status post TN, hyperlipidemia, hypertension, ischemic cardiomyopathy, status post left heart cath in July 2021, atrial fibrillation (on Eliquis) Last echocardiogram shows EF of 65%. She was seen by cardiology and she was diagnosed with noncardiac chest pain. She has been having esophageal dysphagia with solid requiring esophageal dilation in the past. [facility] Medical History (Updated 03/24/22 @ 13:[address] Samantha Vidal, DO) Arthritis Atherosclerosis of coronary artery of [place] heart without angina pectoris Atrial fibrillation Back pain Bilateral edema of lower extremity Bone fracture Breast lump in female Cardiac arrest Cataracts, bilateral Chronic anticoagulation Chronic venous insufficiency of lower extremity Contusion of right lower leg, sequela Depression Esophageal stenosis Fibromyalgia Gastroesophageal reflux disease Generalized osteoarthritis GERD (gastroesophageal reflux disease) Hemorrhoids History of back problems History of left heart catheterization (LHC) (~07/22/21) HTN (hypertension) Hyperlipidemia Hypokalemia Incontinence Left breast lump Myocardial infarct Neuropathy of right lower extremity Obesity Osteoarthritis of knee Rheumatoid arthritis Shoulder pain UTI (urinary tract infection) Vitamin deficiency Home Medications nitroglycerin 0.4 mg sublingual tablet 0.4 mg sublingual Q5M PRN Cardiac/Chest Pain #1 BOTTLE 12/05/20 [Rx Last Taken Unknown] clopidogrel 75 mg tablet (Plavix) 75 mg PO DAILY #90 tabs 09/14/21 [Rx Last Taken Unknown] isosorbide mononitrate 60 mg tablet,extended release 24 hr 60 mg PO DAILY #90 tabs 09/14/21 [Rx Last Taken Unknown] losartan 50 mg tablet 50 mg PO DAILY BP #90 tabs 09/14/21 [Rx Last Taken Unknown] metoprolol succinate 25 mg tablet,extended release 24 hr 25 mg PO BID #180 tabs 09/14/21 [Rx Last Taken Unknown] amlodipine 2.5 mg tablet 2.5 mg PO DAILY 12/01/21 [History Last Taken Unknown] atorvastatin 40 mg tablet 40 mg PO QHS Cholestrol #90 tabs 01/16/22 [Rx Last Taken Unknown] cholecalciferol (vitamin D3) 25 mcg (1,000 unit) tablet 25 mcg PO DAILY SUP PLEMENT 02/28/22 [History Last Taken Unknown] spironolactone 25 mg tablet 12.5 mg PO DAILY #30 tabs 03/03/22 [Rx Last Taken Unknown] apixaban 5 mg tablet (Eliquis) 5 mg PO BID #180 tabs 03/20/22 [Rx Last Taken Unknown] Allergy/AdvReac Type Severity Reaction Status Date / Time bee pollen Allergy Anaphylaxis Verified 03/23/22 22:09 latex Allergy Swelling Verified 03/23/22 22:09 morphine Allergy Other Verified 03/23/22 22:09 Penicillins Allergy Hives Verified 03/23/22 22:09 hydrocodone bitartrate AdvReac Abd Verified 03/23/22 22:09 [From Vicodin] cramps/diarrhea Family History Father Diabetes Heart disease Hypertension CVA (cerebral vascular accident) Parkinson disease Mother Breast cancer Hypertension Grandmother Cancer pancreatic cancer Ovarian cancer Son Anesthesia complication Brother Asthma Arthritis Diabetes Respiratory disease Grandfather Lung cancer CVA (cerebral vascular accident) Surgical History Hematoma history bilateral breast biopsies History of bilateral knee replacement History of cataract surgery History of coronary artery stent placement (11/16/20) History of hysterectomy History of laparoscopic cholecystectomy History of left breast biopsy (~11/2017) History of repair of right rotator cuff History of tonsillectomy and adenoidectomy Hx of appendectomy Social History household members: spouse Smoking Status: Never smoker alcohol intake: never substance use type: does not use caffeine: Yes Type: carbonated beverages Number of servings: 1 and coffee Number of servings: 1 additional social history: DOES NOT USE IBUPROFEN ROS ROS Narrative Admission Review of Systems: CONSTITUTIONAL: No weight loss, fever, chills, + weakness or fatigue. HEENT: Eyes: No visual loss, blurred vision, double vision or yellow sclerae. Ears, Nose, Throat: No hearing loss, sneezing, congestion, runny nose or sore throat. SKIN: No rash or itching, lesions, wounds. CARDIOVASCULAR: + chest pain, chest pressure or chest discomfort, cardiac arrest, VF, palpitations, edema, No orthopnea, syncopal events. RESPIRATORY: + shortness of breath, No cough or sputum, wheezing, hemoptysis. GASTROINTESTINAL: + Nausea, No anorexia, vomiting or diarrhea, abdominal pain, melena, BRBPR. GENITOURINARY: No dysuria, frequency, urgency or retention. NEUROLOGICAL: No headache, dizziness, syncope, paralysis, ataxia, numbness or tingling in the extremities, focal weakness, change in bowel or bladder control, seizure. MUSCULOSKELETAL: + muscle, back pain, joint pain or stiffness. HEMATOLOGIC: No anemia, bleeding or bruising. LYMPHATICS: No enlarged nodes. No history of splenectomy. PSYCHIATRIC: No history of depression or anxiety. ENDOCRINOLOGIC: No reports of sweating, cold or heat intolerance. No polyuria or polydipsia. ALLERGIES: No history of asthma, hives, eczema or rhinitis. Physical Exam Narrative Comfortable. Lying flat in the bed. No apparent distress. Heart sounds 1 and 2 are normal. Chest clear to auscultation bilaterally. Some reproducible discomfort on palpation of right anterior chest. Abdomen soft. Bowel sounds positive. Alert oriented x3. No ankle edema noted. Const alert, oriented x3 and no apparent distress Constitutional Narrative: Still having substernal discomfort but not as bad as last night. General Appearance: cooperative and well developed HEENT normocephalic Resp normal respiratory effort, normal air movement and clear to auscultation bilaterally Resp Narrative: No conversational dyspnea Cardio regular rate, regular rhythm, no murmurs, no rub and no gallops GI normal to inspection, nondistended, normoactive bowel sounds, soft to palpation and non-tender GI Narrative: obese. No guarding with palpation. Extremity Extremity Narrative: She has deformity of the distal right lower extremity secondary to surgery in the past. Does not wear compressions stockings. Mild peripheral edema more likely than not due to venous insufficiency. Skin Rashes: no rashes Neuro CN's II-XII intact bilaterally and no focal motor deficits Lab / Micro Data Result Diagrams: 03/24/22 04:45 03/24/22 04:45 Labs: Laboratory Results - last 24 hr 03/23/22 22:21: WBC 6.8, RBC 4.31, Hgb 11.1 L, Hct 34.9 L, MCV 81.0, MCH 25.8 L, MCHC 31.8 L, RDW Std Deviation 43.8, RDW Coeff of April 14.9 H, Plt Count 294, MPV 10.0, Immature Gran % (Auto) 0.300, Neut % (Auto) 58.7, Lymph % (Auto) 29.2, [place] % (Auto) 7.7, Eos % (Auto) 3.4, Baso % (Auto) 0.7, Absolute Neuts (auto) 4.0, Absolute Lymphs (auto) 1.98, Nucleated RBC % 0 03/23/22 22:21: Sodium 141, Potassium 4.4, Chloride 109 H, Carbon Dioxide 28.0, Anion Gap 4 L, BUN 21 H, Creatinine 0.95, Estim Creat Clear Calc 37.32, Est GFR (MDRD) Af Amer 74, Est GFR (MDRD) Non-Af 61, BUN/Creatinine Ratio 22.1 H, Glucose 96, Calcium 9.5, Magnesium 2.4, Troponin I High Sens 8 03/23/22 22:21: B-Natriuretic Peptide 173.2 H 03/24/22 02:14: Troponin I High Sens 10 03/24/22 04:45: WBC 6.3, RBC 3.93 L, Hgb 10.2 L, Hct 32.2 L, MCV 81.9, MCH 26.0 L, MCHC 31.7 L, RDW Std Deviation 44.7 H, RDW Coeff of April 14.9 H, Plt Count 268, MPV 9.7, Immature Gran % (Auto) 0.200, Neut % (Auto) 57.4, Lymph % (Auto) 29.6, [place] % (Auto) 8.7, Eos % (Auto) 3.6, Baso % (Auto) 0.5, Absolute Neuts (auto) 3.6, Absolute Lymphs (auto) 1.87, Nucleated RBC % 0 03/24/22 04:45: Sodium 142, Potassium 3.9, Chloride 111 H, Carbon Dioxide 25.0, Anion Gap 6, BUN 19 H, Creatinine 0.81, Estim Creat Clear Calc 43.77, Est GFR (MDRD) Af Amer 88, Est GFR (MDRD) Non-Af 73, BUN/Creatinine Ratio 23.4 H, Glucose 94, Calcium 8.8, Triglycerides 75, Cholesterol 109, LDL Cholesterol 59, VLDL Cholesterol 15, HDL Cholesterol 35 L 03/24/22 04:45: Troponin I High Sens 10 03/24/22 04:45: Iron 36 L, TIBC 302, Iron Saturation 11.9 L, Ferritin 21 Micro: Microbiology 03/23/22 23:20 Nasal Secretion SARS-CoV-2 & FLU Antigen (Rapid) - Final Radiology Impression Chest X-Ray 03/23/22 22:45 IMPRESSION: No evidence of active intrathoracic disease. Electronically Signed: Charity Campa MD at 23:34 EST , Chest CTA 03/24/22 09:43 IMPRESSION: No evidence of aortic dissection. No evidence of pulmonary embolism. Mild scarring at the lung bases slightly more prominent on the left side. Electronically Signed: Peter Davidson MD at 10:33 EST , Charges/Coding Visit Charges Inpatient E&M: 60226 Init Hosp L3
--- NOTE | 2022-03-24 17:31 | CHAPLAIN ---
Type of Pastoral Visit _x__ Initial Visit ___ Follow-up Visit ___ On-call Visit ___ General Patient Visit ___ Spiritual Assessment ___ Family Conference ___ Bereavement ___ Rapid Response ___ Code Blue ___ Other (describe below) Pastoral Care Referral From _x__ Patient ___ Family ___ Nurse ___ Physician ___ Pot Feeder ___ Coat Checker ___ Other (describe below) Sacrament/Intervention _x__ Active listening ___ Anointing ___ Episcopal ___ Bereavement ___ Communion ___ Marivel exploration ___ ___ Life review _x__ Prayer ___ Reconciliation ___ Sacrament of Sick _x__ Supportive presence ___ Wedding ___ Other (describe below) Pastoral Comments patient has been seen in previous admissions; pt son is also in the room; pt explains her situation and need for more testing; pt was more anxious initially at admission she says but is doing better at this time; pt welcomes presence and prayer support
[2022-03-24] MEDS: Atorvastatin Calcium 40 MG Tablet PO (22:10)
[2022-03-24] MEDS: 0.9% Saline Lock 10 ML Syringe IV (22:14)
[2022-03-25] VITALS (13 sets, daily range): BP systolic 118–153; BP diastolic 57–83; PULSE 63–78; RESP 16–18; TEMP 36.4–36.6; O2SAT 94–97; BMI 39.6
--- NOTE | 2022-03-25 | ESO_PTH ---
PATIENT: JIE HENRIQUEZ LOC: [facility] U#:[id number] AGE/SX: 76/F ROOM: [facility] RE03/24/[address]: Dr. Óscar Craft MD : 1945 BED: 1 DIS: 03/25/2022 SPEC #: [id number] RECD: 03/25/22 09:35 STATUS: TYLOR REQ #: [id number] SONJA: 03/25/22 00:[address]: Scotty Greenfield DEPT: SURGICAL PATHOLOGY RECD BY: Cuong Cota ENTERED: 03/27/22 10:02 SP TYPE: ESOPH BX OTHR DR: MD Dr. Samantha Parada DO Dr. Joseph Agyepong, MD Dr. Prakash Chand, MD Dr. Tai Chi Kwok, MD Tissues: Esophagus, NOS Procedures: Special Stain Group II Surgery Specimen Level IV Alcian Blue/PAS (control) Comments: @ Ordering doctor for SUIV edited from to @ by SYL at 03/27/22 1519 @ Submitting doctor edited from to @ by RGOOD at 03/27/22 1519 HEADER OPERATION: EGD with dilation and biopsy (MAC) PRE-OP DIAGNOSIS: Dysphagia TISSUE SUBMITTED: Distal esophagus biopsy MICROSCOPIC DIAGNOSIS Distal esophagus, biopsy: Fragments of gastroesophageal mucosa with chronic inflammation. Intestinal metaplasia (goblet cell metaplasia) not identified. See comment. RHONDA:irish 03/28/2022 COMMENT Alcian blue/PAS stain with matched control is used in the evaluation of the specimen. MICROSCOPIC DESCRIPTION Slides are reviewed. GROSS DESCRIPTION Received in fixative is one container labeled with the patient's name and designated distal esophagus biopsy. The specimen consists of two irregular fragments of light lozano soft tissue that in aggregate measure 0.6 x 0.3 x 0.1 cm. The specimen is totally submitted in one cassette. / RHONDA:irish 03/27/2022 TC:3 CPT: 86604, 67081
--- NOTE | 2022-03-25 07:28 | NURSING ---
Called report to TINO Hood in ENDO
--- NOTE | 2022-03-25 07:36 | NURSING ---
Documentation reviewed with Ajay JIMÉNEZ.
--- NOTE | 2022-03-25 08:02 | OP.EGD_ITS ---
Patient Name: Glory Moon Procedure Date: 03/25/2022 7:57 AM Date of : 1945 Age: 76 Procedure: Upper GI endoscopy Indications: Dysphagia Providers: Scotty Greenfield DO Medicines: Monitored Anesthesia Care Patient Profile: This is a 76 year old female. Refer to note in patient chart for documentation of history and physical. Patient has symptoms of acute dysphagia. Complications: No immediate complications. Procedure: Pre-Anesthesia Assessment: - Prior to the procedure, a History and Physical was performed, and patient medications and allergies were reviewed. The risks and benefits of the procedure and the sedation options and risks were discussed with the patient. All questions were answered and informed consent was obtained. Patient identification and proposed procedure were verified by the physician in the pre-procedure area. Mental Status Examination: alert and oriented. Airway Examination: normal oropharyngeal airway and neck mobility. Respiratory Examination: clear to auscultation. CV Examination: normal. Prophylactic Antibiotics: The patient does not require prophylactic antibiotics. Prior Anticoagulants: The patient has taken no previous anticoagulant or antiplatelet agents. ASA Grade Assessment: II - A patient with mild systemic disease. After reviewing the risks and benefits, the patient was deemed in satisfactory condition to undergo the procedure. The anesthesia plan was to use monitored anesthesia care (MAC). Immediately prior to administration of medications, the patient was re-assessed for adequacy to receive sedatives. The heart rate, respiratory rate, oxygen saturations, blood pressure, adequacy of pulmonary ventilation, and response to care were monitored throughout the procedure. The physical status of the patient was re-assessed after the procedure. After obtaining informed consent, the endoscope was passed under direct vision. Throughout the procedure, the patient's blood pressure, pulse, and oxygen saturations were monitored continuously. The gastroscope was introduced through the mouth, and advanced to the second part of duodenum. The upper GI endoscopy was accomplished without difficulty. The patient tolerated the procedure well. Findings: LA Grade C (one or more mucosal breaks continuous between tops of 2 or more mucosal folds, less than 75% circumference) esophagitis with bleeding was found 35 to 38 cm from the incisors. Coagulation for hemostasis using heater probe was successful. Estimated blood loss was minimal. Biopsies were taken with a cold forceps for histology. Verification of patient identification for the specimen was done. Estimated blood loss was minimal. A moderate Schatzki ring was found in the lower third of the esophagus. A guidewire was placed and the scope was withdrawn. Dilation was performed with a Savary dilator with no resistance at 51 Fr. The dilation site was examined and showed moderate improvement in luminal narrowing. Estimated blood loss was minimal. A small hiatal hernia was present. Diffuse atrophic mucosa was found in the entire examined stomach. The first portion of the duodenum was normal. Biopsies were taken with a cold forceps for histology. Verification of patient identification for the specimen was done. Estimated blood loss was minimal. Impression: - LA Grade C erosive esophagitis. Treated with a heater probe. Biopsied. - Moderate Schatzki ring. Dilated. - Small hiatal hernia. - Gastric mucosal atrophy. - Normal first portion of the duodenum. Biopsied. Recommendation: - Discharge patient to home. - Resume previous diet. - Continue present medications. - Await pathology results. - Use Protonix (pantoprazole) 40 mg PO BID for 8 weeks. Procedure Code(s): --- Professional --- 88895, 59, Esophagogastroduodenoscopy, flexible, transoral; with control of bleeding, any method 80732, Esophagogastroduodenoscopy, flexible, transoral; with insertion of guide wire followed by passage of dilator(s) through esophagus over guide wire 89827, 59,51, Esophagogastroduodenoscopy, flexible, transoral; with biopsy, single or multiple CPT copyright 2017 [employer]. All rights reserved. The codes documented in this report are preliminary and upon six pack packer review may be revised to meet current compliance requirements. cSotty Greenfield DO 03/25/2022 8:01:20 AM This report has been signed electronically. Number of Addenda: 0 Note Initiated On: 03/25/2022 7:57 AM
--- NOTE | 2022-03-25 08:02 | OP.CCLET_ITS ---
03/25/2022 Alexi Morin MD [address] [place] [address] Re : Upper GI endoscopy procedure for Glory Moon Dear Dr. Morin This procedure was performed on Friday, March 25, 2022. My impressions and recommendations are as follows: Impressions : - LA Grade C erosive esophagitis. Treated with a heater probe. Biopsied. - Moderate Schatzki ring. Dilated. - Small hiatal hernia. - Gastric mucosal atrophy. - Normal first portion of the duodenum. Biopsied. Recommendations : - Discharge patient to home. - Resume previous diet. - Continue present medications. - Await pathology results. - Use Protonix (pantoprazole) 40 mg PO BID for 8 weeks. My findings are described in the full procedure note, which is enclosed. If I can be of further assistance, please feel free to contact me at . Sincerely, Scotty Friend, 03/25/2022 8:01:20 AM This report has been signed electronically.
[2022-03-25] MEDS: Losartan Potassium 50 MG Tablet PO (08:45)
[2022-03-25] MEDS: amLODIPine 5 MG Tablet PO (08:46)
[2022-03-25] MEDS: Cholecalciferol (VIT D3) 25 MCG TABLET (1,000 UNITS) PO (08:46)
[2022-03-25] MEDS: Clopidogrel Bisulfate 75 MG Tablet PO (08:46)
[2022-03-25] MEDS: Metoprolol(XL)Succ 50 MG Tablet PO (08:46)
[2022-03-25] MEDS: Isosorbide Mononitrate 60 MG Tablet PO (08:47)
--- NOTE | 2022-03-25 10:13 | DCINST_ITS ---
Discharge Instructions Dressing / Incision Call your doctor if you observe: Fever of 101 or Higher, Coldness, Increased Pain, Numbness or Tingling, Change in Color, Inability to urinate, Inability to have a bowel movement, Using more than 1 pad per hour, Shortness of breath, Dizziness, Fainting spells, Swelling in the ankles, Chest pain, Prolonged hiccupping, Increased palpitations (irregular heartbeat), Calf discomfort and Uncontrolled pain Follow Up Care Test Results: Test results from this visit will be discussed in further detail at your follow- up appointment, if applicable. Discharge Plan Admission Admit Date/Time: 03/24/22 00:18 Primary Reason for Your Visit: Chest pain due to erosive esophagitis Attending Provider: Óscar Craft Primary Care Provider: Alexi Morin [employer] Providers: Melody Briceno ; Horace Mccormick ; Samantha Vidal Discharge Orders/Prescriptions Prescriptions: New sennosides-docusate sodium [Stool Softener-Stimulant Laxat] 8.6-50 mg Tablet 2 tab PO BID PRN PRN (Reason: Constipation) Qty: 0 0RF Rx Instructions: OTC Continued amlodipine 2.5 mg tablet 2.5 mg PO DAILY Rx Instructions: Patient unsure if she is taking or not cholecalciferol (vitamin D3) 25 mcg (1,000 unit) tablet 25 mcg PO DAILY nitroglycerin 0.4 mg Tablet, Sublingual 0.4 mg sublingual Q5M PRN (Reason: Cardiac/Chest Pain) Qty: 1 0RF clopidogrel [Plavix] 75 mg tablet 75 mg PO DAILY Qty: 90 3RF isosorbide mononitrate 60 mg tablet extended release 24 hr 60 mg PO DAILY Qty: 90 3RF losartan 50 mg tablet 50 mg PO DAILY Qty: 90 3RF metoprolol succinate 25 mg tablet extended release 24 hr 25 mg PO BID Qty: 180 4RF atorvastatin 40 mg tablet 40 mg PO QHS Qty: 90 3RF spironolactone 25 mg tablet 12.5 mg PO DAILY Qty: 30 6RF Held Eliquis 5 mg tablet 5 mg PO BID Qty: 180 4RF Hold Instructions: May resume from tomorrow a.m. Referrals / Follow Up: Gin,DO Scotty [Med Staff - Active Staff] - Within 2 Weeks (For esophagitis) Alexi Morin Chi, MD [Primary Care Provider] - Within 2 Weeks Disposition Disposition (needs filled in before D/C Order can be placed): Home, Self Care
[2022-03-25] MEDS: Spironolactone 25 MG Tablet 12.5 MG PO (11:17)
--- NOTE | 2022-03-25 16:06 | PCM.DC.SUM ---
Providers Date of Admission: 03/24/22 Date of Discharge: 03/25/22 Primary Care Physician: Dr. Alexi Morin MD Consultations 03/24/22 01:26 Consult: Cardiology Routine Consulting Provider: Melody Briceno Reason for Consult: Chest Pain EMERGENT Consult: No Notified: Yes Date Notified: 03/24/22 Time Notified: 06:41 Method of Notification: Text 03/24/22 13:46 Consult: Gastroenterology Routine Consulting Provider: [facility] Reason for Consult: CP/dysphagia/hx of esophageal stenosis EMERGENT Consult: No Notified: Yes Date Notified: 03/24/22 Time Notified: 13:46 Method of Notification: Text Reason For Visit: CHEST PAIN Diagnosis Discharge Diagnosis (1) Dysphagia: Status: Acute Code(s): R13.10 - Dysphagia, unspecified Medications at Discharge Home Medications nitroglycerin 0.4 mg sublingual tablet 0.4 mg sublingual Q5M PRN Cardiac/Chest Pain #1 BOTTLE 12/05/20 clopidogrel 75 mg tablet (Plavix) 75 mg PO DAILY #90 tabs 09/14/21 isosorbide mononitrate 60 mg tablet,extended release 24 hr 60 mg PO DAILY #90 tabs 09/14/21 losartan 50 mg tablet 50 mg PO DAILY BP #90 tabs 09/14/21 metoprolol succinate 25 mg tablet,extended release 24 hr 25 mg PO BID #180 tabs 09/14/21 amlodipine 2.5 mg tablet 2.5 mg PO DAILY blood pressure 12/01/21 atorvastatin 40 mg tablet 40 mg PO QHS Cholestrol #90 tabs 01/16/22 cholecalciferol (vitamin D3) 25 mcg (1,000 unit) tablet 25 mcg PO DAILY SUPPLEMENT 02/28/22 spironolactone 25 mg tablet 12.5 mg PO DAILY #30 tabs 03/03/22 apixaban 5 mg tablet (Eliquis) 5 mg PO BID #180 tabs 03/20/22 pantoprazole 40 mg tablet,delayed release (Protonix) 40 mg PO BID #60 tabs 03/25/22 sennosides 8.6 mg-docusate sodium 50 mg tablet (Stool Softener-Stimulant Laxative) 2 tab PO BID PRN PRN Constipation #0 tabs 03/25/22 Hospital Course Summary of Care Provided Hospital Course: 76-year-old female with history of coronary artery disease status post PCI's and stent was admitted with excruciating substernal chest pain few hours prior to ED arrival. 1. Atypical chest pain due to esophagitis/dysphagia: Patient was admitted to PCU. Chest pain was localized without radiation with no aggravating, relieving or precipitating factor. She had history of GERD and nausea and vomiting recently. Patient was seen by supervisor assembly stock and recommendation was chest pain is noncardiac. Serial troponins negative. Patient had EGD which showed LA grade C erosive esophagitis treated with heater probe biopsied. Moderate status eating dilated, small hiatus hernia, gastric mucosal atrophy, normal first duodenum. Patient was started on IV Protonix 41 every 2 hourly changed to oral 40 mg p.o. twice daily. Prescription was given for same and advised to follow with Dr. Greenfield in 2 weeks. Echo on September 2021 shows EF 65%, mild MR, mild TR RVSP 31 mmHg. 2. GERD/esophageal dysphagia/chronic esophageal stenosis: As mentioned above 3. Chronic iron deficiency anemia: Hemoglobin is 10.2/32%. Patient baseline is around 11 g%. 4. Hypertension: Blood pressure is controlled. 5. Paroxysmal A. fib on Eliquis: Advised to resume Eliquis 5 mg twice daily from tomorrow AM. Eliquis was held for 1 day for EGD which required dilatation. VTE prophylaxis: On Eliquis as mentioned above. Discharge medication reconciliation done. Discharge follow-up instructions completed. Discharge process discussed with the patient and all questions were answered to patient's satisfaction. Total time spent, exact 35 minutes on discharge meds reconciliation, examination, coordination of care with nurses and ancillary staff, review of imaging and blood test and discussion with the patient on follow-up instructions. Microbiology Past 72 Hours 03/23/22 23:20 Nasal Secretion SARS-CoV-2 & FLU Antigen (Rapid) - Final Physical Exam Narrative Seen and examined. Patient chest pain has resolved. Patient had EGD in the morning and required dilation of the site securing. Wants to go home. General: Alert, Oriented x3, Cooperative HEENT: Atraumatic, PERRLA, EOMI, Normocephalic Oral: No Gingival or Mucosal Lesions/ Ulcerations Neck: Supple, No JVD, Negative Carotid Bruits Lungs: Air entry diminished in bilateral lung bases. No crepitation/rhonchi Cardiovascular: Regular rate, Regular Rhythm, Normal S1, Normal S2, No murmurs Abdomen: Bowel Sounds Present, Soft, Non Tender, Non-Distended : No renal angle tenderness. No suprapubic tenderness. Extremities: No edema, Capillary Refill Less than 3 Seconds Skin: No rashes, No breakdown Musculoskeletal: No Tenderness to Palpation of Joints or Extremities. ROM full and intact. Neurological: Cranial nerves II-XII grossly intact, DTR 2+/4 and Symmetrical, Neuro grossly intact Psych/Mental Status: Normal Affect, Appropriate. Weight / BMI Weight Weight: 203 lb 0.732 oz Body Mass Index (BMI) 39.6 ABG / Lab / Microbiology Data Result Diagrams: 03/24/22 04:45 03/24/22 04:45 Microbiology: Microbiology 03/23/22 23:20 Nasal Secretion SARS-CoV-2 & FLU Antigen (Rapid) - Final D/C Instructions Call your doctor if you observe: Fever of 101 or Higher, Coldness, Increased Pain, Numbness or Tingling, Change in Color, Inability to urinate, Inability to have a bowel movement, Using more than 1 pad per hour, Shortness of breath, Dizziness, Fainting spells, Swelling in the ankles, Chest pain, Prolonged hiccupping, Increased palpitations (irregular heartbeat), Calf discomfort and Uncontrolled pain Meaningful Use Info Meaningful Use Diagnoses (Choose all that apply): None applicable Discharge Plan Admission Admit Date/Time: 03/24/22 00:18 Primary Reason for Your Visit: Chest pain due to erosive esophagitis Attending Provider: Óscar Craft Primary Care Provider: Alexi Morin Chi Consulting Providers: Melody Briceno ; Horace Mccormick ; Samantha Vidal Instructions Additional Instructions / Restrictions: Patient Problems: Altered Health Status related to Hospitalization Patient Goals: *Optimal Level of Health *Keep Appointments *Medication Compliance *Remain Safe Discharge Orders/Prescriptions Prescriptions: New sennosides-docusate sodium [Stool Softener-Stimulant Laxat] 8.6-50 mg Tablet 2 tab PO BID PRN PRN (Reason: Constipation) Qty: 0 0RF Rx Instructions: OTC pantoprazole [Protonix] 40 mg tablet,delayed release (DR/EC) 40 mg PO BID Qty: 60 2RF Rx Instructions: advised TWICE DAILY FOR 8 WEEKS THEN ONCE DAILY Continued amlodipine 2.5 mg tablet 2.5 mg PO DAILY Rx Instructions: Patient unsure if she is taking or not cholecalciferol (vitamin D3) 25 mcg (1,000 unit) tablet 25 mcg PO DAILY nitroglycerin 0.4 mg Tablet, Sublingual 0.4 mg sublingual Q5M PRN (Reason: Cardiac/Chest Pain) Qty: 1 0RF clopidogrel [Plavix] 75 mg tablet 75 mg PO DAILY Qty: 90 3RF isosorbide mononitrate 60 mg tablet extended release 24 hr 60 mg PO DAILY Qty: 90 3RF losartan 50 mg tablet 50 mg PO DAILY Qty: 90 3RF metoprolol succinate 25 mg tablet extended release 24 hr 25 mg PO BID Qty: 180 4RF atorvastatin 40 mg tablet 40 mg PO QHS Qty: 90 3RF spironolactone 25 mg tablet 12.5 mg PO DAILY Qty: 30 6RF Held Eliquis 5 mg tablet 5 mg PO BID Qty: 180 4RF Hold Instructions: May resume from tomorrow a.m. Referrals / Follow Up: Scotty Greenfield DO [Med Staff - Active Staff] - Within 2 Weeks (For esophagitis) Alexi Morin Chi, MD [Primary Care Provider] - Within 2 Weeks Disposition Disposition (needs filled in before D/C Order can be placed): Home, Self Care Charges/Coding Visit Charges OBSV E&M: 02425 Observation care discharge
== END 2022-03-25 10:29 | disposition home or self-care (01) ==
LOC: ED 03-24 00:27 → PCU 03-24 00:46
PROVIDERS: Internal Medicine; Internal Medicine Gastroenterology; Admitting Provider Hospitalist; Emergency Provider Emergency Medicine; PCP Family Medicine Geriatric Medicine; Visit Provider Internal Medicine
PROC: 0DJ08ZZ Inspection of Upper Intestinal Tract, Via Natural or Artificial Opening Endoscopic (ICD-10-PCS; CPT 43235; principal; 2022-03-25 07:30)
DX: R13.10 Dysphagia, unspecified (principal); I48.0 Paroxysmal atrial fibrillation; D50.9 Iron deficiency anemia, unspecified; Z79.01 Long term (current) use of anticoagulants; I25.10 Atherosclerotic heart disease of native coronary artery without angina pectoris; Z79.02 Long term (current) use of antithrombotics/antiplatelets; K21.00 Gastro-esophageal reflux disease with esophagitis, without bleeding; R06.02 Shortness of breath; K44.9 Diaphragmatic hernia without obstruction or gangrene; I10 Essential (primary) hypertension; I25.5 Ischemic cardiomyopathy; K22.2 Esophageal obstruction; E78.5 Hyperlipidemia, unspecified; R11.2 Nausea with vomiting, unspecified; I25.2 Old myocardial infarction; Z79.899 Other long term (current) drug therapy; E66.9 Obesity, unspecified; Z68.39 Body mass index [BMI] 39.0-39.9, adult
CPT/HCPCS: 43255; 43248; 43239; 36415; 71045; 71275; 80048; 80061; 82728; 83540; 83550; 83735; 83880; 84484; 85025; 87428; 88305; 88313; 93005; 96365; 96366; 99218; 99285; Q9967; A4216; C1769; G0378

== ENCOUNTER → 2022-03-29 | Outpatient (CLI) | payer MEDICARE, SELFPAY ==
[2021-03-16 14:15] VITALS: BMI 37.3
== END | disposition home or self-care (01) ==
LOC: PSN 12:07
PROVIDERS: PCP Family Medicine Geriatric Medicine; Referring Provider Family Medicine Geriatric Medicine; Visit Provider Family Medicine Geriatric Medicine
DX: R68.83 Chills (without fever) (principal)
CPT/HCPCS: 87635; 87804; 87807; C9803; U0003; U0005

== ENCOUNTER → 2022-04-13 | Outpatient (CLI) | payer MEDICARE, SELFPAY ==
[2021-03-16 14:15] VITALS: BMI 37.3
--- NOTE | 2022-04-13 13:25 | BI_ITS ---
MAMMOGRAPHY - BILATERAL SCREENING REASON FOR EXAM: Female, 76 years old. Routine annual screening examination. PERTINENT HISTORY: Mother with breast cancer. Aunt with breast cancer. TECHNIQUE: Digital bilateral breast ronald (3D mammographic acquisition) in the CC and MLO projections. 2-D mediolateral oblique (MLO) and craniocaudad (CC) views of both breasts were obtained. CAD: Full Field Digital Mammography with Computer Added Detection was performed. COMPARISON: Comparison is made with prior study dated 03/30/2021 and 12/19/2021. FINDINGS: Breast Composition: The breasts are heterogeneously dense, which may obscure small masses. There are no dominant masses or suspicious calcifications. Once again, 2 dictation clip markers are seen in the right breast. A patient with markers also seen in the deep central medial aspect of the left breast. Stable benign appearing bilateral axillary lymph nodes. No other significant abnormalities are identified. There has been no significant change since the prior study. BI/SCRN MAMM (CAD)W/RONALD BILAT IMPRESSION: Stable bilateral screening mammogram. Yearly follow-up mammogram recommended. (A) ASSESSMENT CATEGORY: BIRADS Category 2: Benign. A letter regarding these results will be sent to the patient by the facility within 30 days. Approximately 10% of breast cancers are not detected by mammography. A normal mammogram should not delay biopsy of a clinically suspicious abnormality. [id number] Electronically Signed: Peter Davidson MD at 14:33 EST ,
== END | disposition home or self-care (01) ==
LOC: OPBI 13:24
PROVIDERS: PCP Family Medicine Geriatric Medicine; Referring Provider Family Medicine Geriatric Medicine; Visit Provider Family Medicine Geriatric Medicine
DX: Z12.31 Encounter for screening mammogram for malignant neoplasm of breast (principal); Z80.3 Family history of malignant neoplasm of breast
CPT/HCPCS: 77063; 77067

== ENCOUNTER → 2022-05-01 | Outpatient (CLI) | payer MEDICARE, SELFPAY ==
[2021-03-16 14:15] VITALS: BMI 37.3
== END | disposition home or self-care (01) ==
LOC: POLAB3 16:19
PROVIDERS: PCP Family Medicine Geriatric Medicine; Visit Provider Family Medicine Geriatric Medicine
DX: N39.0 Urinary tract infection, site not specified (principal)
CPT/HCPCS: 87077; 87086; 87088; 87186

== ENCOUNTER → 2022-05-11 | Outpatient (CLI) | payer MEDICARE, SELFPAY ==
[2021-03-16 14:15] VITALS: BMI 37.3
[2022-05-11 17:46] LABS: Anion Gap 6 (5-15); BUN 26 mg/dL (7-18); BUN/Creat Ratio 24.8 RATIO (10-20); Chloride 105 mmol/L (98-107); Creatinine, Serum 1.05 mg/dL (0.55-1.02); EST Glomerular Filtration Rate 54 mL/min (>60); Est Glom Filt Rate - Afr Amer 66 mL/min (>60); Glucose 89 mg/dL (74-106); Magnesium 2.5 mg/dL (1.6-2.6); Phosphorus 2.7 mg/dL (2.5-4.9); Potassium 4.3 mmol/L (3.5-5.1); Sodium Level 140 mmol/L (136-145)
== END | disposition home or self-care (01) ==
LOC: POLAB3 14:13
PROVIDERS: PCP Family Medicine Geriatric Medicine; Visit Provider Family Medicine Geriatric Medicine
DX: R25.2 Cramp and spasm (principal)
CPT/HCPCS: 36415; 80048; 83735; 84100

== ENCOUNTER → 2022-06-14 | Outpatient (CLI) | payer MEDICARE, SELFPAY ==
[2021-03-16 14:15] VITALS: BMI 37.3
[2022-06-14 13:27] LABS: Absolute Lymphocyte Count 1.23 X10^3/uL (0.83-4.51); Basophil# 0.05 X10^3/uL; Basophil% 0.8 % (0-1); Eosinophil# 0.16 X10^3/uL; Eosinophils% 2.6 % (0-5); Hematocrit 34.8 % (37-47); Lymphocyte # 1.23 X10^3/ul (0.83-4.51); Lymphocyte % 20.2 % (19-41); Mean Corp Hgb Conc 31.6 g/dL (32-36); Mean Corpuscular Hgb 26.1 pg (27.0-32.0); Mean Corpuscular Volume 82.5 fL (81-99); Mean Platelet Vol. 9.8 fl (6.2-12.0); Monocyte# 0.63 X10^3/uL; Monocyte% 10.3 % (0-10); NRBC Flagged by Analyzer 0 % (0-5); Neutrophil # 3.99 X10^3/uL (2.7-7.7); Neutrophil % 65.6 % (47-70); Platelet Count 345 K/mm3 (150-450); RBC Distribution Width CV 15.9 % (11.6-14.6); RBC Distribution Width SD 48.4 fl (35.1-43.9); Red Blood Count 4.22 M/mm3 (4.2-5.4); White Blood Count 6.1 K/mm3 (4.4-11.0)
[2022-06-14 13:55] LABS: Vitamin D,25 Hydroxy 35.6 ng/mL
[2022-06-14 14:57] LABS: ALB/GLOB Ratio 0.8 RATIO (0.9-2.4); AST(SGOT) 19 U/L (15-37); Alanine Aminotransfer ALT/SGPT 13 U/L (13-56); Albumin, Serum 3.2 g/dL (3.2-5.0); Alkaline Phosphatase 86 U/L (45-117); Anion Gap 8 (5-15); BUN 17 mg/dL (7-18); BUN/Creat Ratio 15.3 RATIO (10-20); Calcium,Total 9.4 mg/dL (8.5-10.1); Chloride 106 mmol/L (98-107); Creatinine, Serum 1.11 mg/dL (0.55-1.02); EST Glomerular Filtration Rate 51 mL/min (>60); Est Glom Filt Rate - Afr Amer 62 mL/min (>60); Globulin 4.2 g/dL (2.2-4.2); Glucose 120 mg/dL (74-106); Potassium 4.1 mmol/L (3.5-5.1); Protein, Total 7.4 g/dL (6.4-8.2); Sodium Level 140 mmol/L (136-145); Thyroid Stim Hormone (TSH) 0.89 uIU/mL (0.358-3.74)
== END | disposition home or self-care (01) ==
LOC: POLAB3 10:43
PROVIDERS: PCP Family Medicine Geriatric Medicine; Visit Provider Family Medicine Geriatric Medicine
DX: I10 Essential (primary) hypertension (principal); E55.9 Vitamin D deficiency, unspecified
CPT/HCPCS: 36415; 80053; 82306; 84443; 85025

== ENCOUNTER → 2022-07-06 | Outpatient (CLI) | payer MEDICARE, SELFPAY ==
[2022-06-16 15:20] VITALS: BMI 37.3
[2022-07-06 13:30] LABS: Absolute Lymphocyte Count 1.52 X10^3/uL (0.83-4.51); Absolute Neutrophil Count 4.8 X10^3/uL (2.0-7.7); Basophil# 0.05 X10^3/uL; Basophil% 0.7 % (0-1); Eosinophil# 0.29 X10^3/uL; Eosinophils% 3.8 % (0-5); Hematocrit 39.6 % (37-47); Hemoglobin 12.4 g/dL (12.0-15.0); Lymphocyte # 1.52 X10^3/ul (0.83-4.51); Lymphocyte % 20.2 % (19-41); Mean Corp Hgb Conc 31.3 g/dL (32-36); Mean Corpuscular Hgb 25.9 pg (27.0-32.0); Mean Corpuscular Volume 82.8 fL (81-99); Mean Platelet Vol. 9.7 fl (6.2-12.0); Monocyte# 0.84 X10^3/uL; Monocyte% 11.1 % (0-10); NRBC Flagged by Analyzer 0 % (0-5); Neutrophil # 4.82 X10^3/uL (2.7-7.7); Neutrophil % 63.9 % (47-70); Platelet Count 389 K/mm3 (150-450); RBC Distribution Width CV 14.6 % (11.6-14.6); RBC Distribution Width SD 44.2 fl (35.1-43.9); Red Blood Count 4.78 M/mm3 (4.2-5.4); White Blood Count 7.5 K/mm3 (4.4-11.0)
[2022-07-06 13:50] LABS: BNP,B-Type NATRIURETIC PEPTIDE 100.7 pg/mL (0-100)
[2022-07-06 14:04] LABS: Anion Gap 6 (5-15); BUN 18 mg/dL (7-18); Calcium,Total 9.8 mg/dL (8.5-10.1); Chloride 104 mmol/L (98-107); EST Glomerular Filtration Rate 47 mL/min (>60); Est Glom Filt Rate - Afr Amer 56 mL/min (>60); Free T3 2.7 pg/mL (2.18-3.98); Glucose 95 mg/dL (74-106); Potassium 4.5 mmol/L (3.5-5.1); Sodium Level 137 mmol/L (136-145); T4 Free Direct 1.14 ng/dL (0.76-1.46); Thyroid Stim Hormone (TSH) 1.08 uIU/mL (0.358-3.74)
== END | disposition home or self-care (01) ==
LOC: LAB 12:16
PROVIDERS: PCP Family Medicine Geriatric Medicine; Referring Provider Nurse Practitioner Gerontology; Visit Provider Nurse Practitioner Gerontology
DX: R06.00 Dyspnea, unspecified (principal); R53.83 Other fatigue
CPT/HCPCS: 36415; 80048; 83880; 84439; 84443; 84481; 85025

== ENCOUNTER → 2022-07-13 | Outpatient (CLI) | payer MEDICARE, SELFPAY ==
[2022-06-16 15:20] VITALS: BMI 37.3
== END | disposition home or self-care (01) ==
LOC: LABSPEC 12:02
PROVIDERS: PCP Family Medicine Geriatric Medicine; Visit Provider Family Medicine Geriatric Medicine
DX: N39.0 Urinary tract infection, site not specified (principal)
CPT/HCPCS: 87086; 87088

== ENCOUNTER → 2022-07-19 | Outpatient (CLI) | payer MEDICARE, SELFPAY ==
[2022-06-16 15:20] VITALS: BMI 37.3
--- NOTE | 2022-07-20 18:08 | STRESSREP ---
Stress Test Report Pharmacologic myocardial perfusion stress test. 77-year-old lady with a history of chest pain Resting EKG demonstrates sinus rhythm with a rate of 68 bpm. Resting blood pressure is 132/76 mmHg. 0.4 mg of regadenoson was infused per usual protocol followed by rapid intravenous saline flush injection. Continuous EKG monitoring was performed. The maximum heart rate was 122 bpm which was 84% of max impacted heart rate the maximum workload was 1 metabolic equivalent. At rest there were no ST or T wave changes noted to suggest ischemia and at peak infusion nonspecific ST changes were noted which did not meet the criteria for ischemia. No clinical angina is noted. The final blood pressure was 138/80 mmHg. Myocardial perfusion protocol. 14.2 mCi of technetium 99m sestamibi was injected at rest. 0.4 mg of regadenoson was infused per usual protocol. At peak infusion 43.9 mCi of technetium 99m sestamibi was injected stress images were obtained stress and rest images were reconstructed and compared in the short axis vertical long and horizontal long axis. Gated images were also obtained. Perfusion SPECT analysis: Review of the stress images demonstrate normal uptake of tracer noted in all areas of the myocardium. The resting images similar demonstrated normal uptake of tracer noted in all areas of the myocardium. No areas of reversibility are noted to suggest ischemia and no previous infarct is noted. Gated SPECT analysis: The gated ejection fraction is 78%. Conclusion: Normal pharmacologic myocardial perfusion stress test. Preserved ejection fraction.
== END | disposition home or self-care (01) ==
LOC: CVS 06:57
PROVIDERS: PCP Family Medicine Geriatric Medicine; Visit Provider Nurse Practitioner Gerontology
DX: R07.9 Chest pain, unspecified (principal); Z95.5 Presence of coronary angioplasty implant and graft
CPT/HCPCS: 78452; 93017; A9500; J2785

== ENCOUNTER → 2022-09-20 | Outpatient (CLI) | payer MEDICARE, SELFPAY ==
[2022-06-16 15:20] VITALS: BMI 37.3
== END | disposition home or self-care (01) ==
LOC: POLAB3 16:32 → LABSPEC 16:33
PROVIDERS: PCP Family Medicine Geriatric Medicine; Visit Provider Family Medicine Geriatric Medicine
DX: N39.0 Urinary tract infection, site not specified (principal)
CPT/HCPCS: 87077; 87086; 87088; 87186

== ENCOUNTER → 2022-09-26 | Outpatient (CLI) | payer MEDICARE, SELFPAY ==
[2022-06-16 15:20] VITALS: BMI 37.3
--- NOTE | 2022-09-26 09:16 | RAD_ITS ---
PROCEDURE: Air contrast Upper GI with Small Bowel Follow Through DATE OF EXAMINATION: September 26, 2022.. INDICATION: Female, 77 years old. Dysphasia. FLUOROSCOPY TIME (if supplied): (1:43) minutes/seconds. 20 images were obtained. 54.22 mg. TECHNIQUE: Radiographic and fluoroscopic images of the distal esophagus, stomach, and entire small intestine were obtained following the oral ingestion of barium. COMPARISON: None. FINDINGS: The patient ingested barium. Imaging of the esophagus, stomach and duodenum were obtained. Small sliding hiatal hernia with gastroesophageal reflux. The remainder of the stomach and duodenum are unremarkable. A small bowel follow-through examination was then obtained. Contrast is seen within the terminal ileum at 20 minutes following the ingestion of barium. RAD/Upper GI/w Small Bowel IMPRESSION: 1. Small sliding hiatal hernia with gastroesophageal reflux. Electronically Signed: Peter Davidson MD at 14:32 EDT ,
== END | disposition home or self-care (01) ==
PROVIDERS: PCP Family Medicine Geriatric Medicine; Referring Provider Internal Medicine Gastroenterology; Visit Provider Internal Medicine Gastroenterology
DX: R13.10 Dysphagia, unspecified (principal)
CPT/HCPCS: 74246; 74248

== ENCOUNTER 2022-10-09 15:53 | Emergency (ER) | payer MEDICARE, SELFPAY ==
[2022-06-16 15:20] VITALS: BMI 37.3
[2022-10-09 15:54] VITALS: BP 147/109; PULSE 87; RESP 20; TEMP 36.7; O2SAT 95; BMI 41.1
--- NOTE | 2022-10-09 16:23 | ED.VIS.CHEST ---
HPI History of Present Illness Chief Complaint: Chest Pain Informant: patient Onset/Context/Timing Onset: Days Activity at onset: gradual Timing: Waxes and wanes Narrative Narrative: Patient presents with a 1 week history of chest heaviness. She describes a pressure across her chest as well as up into the left posterior neck. She will have intermittent sharp pain as well. She does report increased shortness of breath and lower extremity edema. She is a history of coronary artery disease with a cardiac arrest. She does have cardiac stents. Last cath appears to be from July 2021 with a stress test in June 2022 that was normal at that time. Patient states that she was in [place] last week when symptoms started and she has not spoken with her ferry engineer. She does report having a history of CHF but states she is not currently on diuretics. She is on Eliquis given a history of paroxysmal A-fib and states that she has been compliant with her medication and has not missed any doses. [facility] Medical History Arthritis Atherosclerosis of coronary artery of standing rock heart without angina pectoris Atrial fibrillation Back pain Bilateral edema of lower extremity Bone fracture Breast lump in female Cardiac arrest Cataracts, bilateral Chronic anticoagulation Chronic venous insufficiency of lower extremity Contusion of right lower leg, sequela Coronary artery disease Depression Esophageal stenosis Fibromyalgia Gastroesophageal reflux disease Generalized osteoarthritis GERD (gastroesophageal reflux disease) Hemorrhoids History of back problems History of left heart catheterization (LHC) (~07/22/21) HTN (hypertension) Hyperlipidemia Hypokalemia Incontinence Iron deficiency anemia Left breast lump Mass of soft tissue Myocardial infarct Neuropathy of right lower extremity Obesity Osteoarthritis of knee Rheumatoid arthritis Shortness of breath Shoulder pain UTI (urinary tract infection) Vitamin deficiency Home Medications nitroglycerin 0.4 mg sublingual tablet 0.4 mg sublingual Q5M PRN Cardiac/Chest Pain #1 BOTTLE 12/05/20 [Rx Last Taken Unknown] clopidogrel 75 mg tablet (Plavix) 75 mg PO DAILY #90 tabs 09/14/21 [Rx Last Taken Unknown] atorvastatin 40 mg tablet 40 mg PO QHS Cholestrol #90 tabs 01/16/22 [Rx Last Taken Unknown] cholecalciferol (vitamin D3) 25 mcg (1,000 unit) tablet 25 mcg PO DAILY SUPPLEMENT 02/28/22 [History Last Taken Unknown] apixaban 5 mg tablet (Eliquis) 5 mg PO BID #180 tabs 03/20/22 [Rx Last Taken Unknown] sennosides 8.6 mg-docusate sodium 50 mg tablet (Stool Softener-Stimulant Laxative) 2 tab PO BID PRN PRN Constipation #0 tabs 03/25/22 [Rx Last Taken Unknown] losartan 50 mg tablet 50 mg PO DAILY BP #90 tabs 06/06/22 [Rx Last Taken Unknown] pantoprazole 40 mg tablet,delayed release (Protonix) 40 mg PO DAILY #90 tabs 07/06/22 [Rx Last Taken Unknown] potassium chloride 10 mEq tablet,extended release 10 meq PO BID 07/06/22 [History Last Taken Unknown] spironolactone 25 mg tablet 25 mg PO DAILY #90 tabs 07/06/22 [Rx Last Taken Unknown] amlodipine 5 mg tablet 5 mg PO DAILY blood pressure #90 tabs 07/21/22 [Rx Last Taken Unknown] metoprolol succinate 25 mg tablet,extended release 24 hr 25 mg PO QHS #180 tabs 08/14/22 [Rx Last Taken Unknown] isosorbide mononitrate 60 mg tablet,extended release 24 hr 60 mg PO DAILY #90 tabs 08/21/22 [Rx Last Taken Unknown] furosemide 40 mg tablet (Lasix) 40 mg PO DAILY #4 tabs 10/09/22 [Rx Last Taken Unknown] Allergy/AdvReac Type Severity Reaction Status Date / Time bee pollen Allergy Anaphylaxis Verified 10/09/22 15:54 latex Allergy Swelling Verified 10/09/22 15:54 morphine Allergy Other Verified 10/09/22 15:54 Penicillins Allergy Hives Verified 10/09/22 15:54 ranolazine AdvReac Intermediate Dizzy and Verified 10/09/22 15:54 Lightheaded hydrocodone bitartrate AdvReac Abd Verified 10/09/22 15:54 [From Vicodin] cramps/diarrhea Family History Father Diabetes Heart disease Hypertension CVA (cerebral vascular accident) Parkinson disease Mother Breast cancer Hypertension Grandmother Cancer pancreatic cancer Ovarian cancer Son Anesthesia complication Brother Asthma Arthritis Diabetes Respiratory disease Grandfather Lung cancer CVA (cerebral vascular accident) Surgical History Hematoma history bilateral breast biopsies History of bilateral knee replacement History of cataract surgery History of coronary artery stent placement (11/16/20) History of hysterectomy History of laparoscopic cholecystectomy History of left breast biopsy (~11/2017) History of repair of right rotator cuff History of tonsillectomy and adenoidectomy Hx of appendectomy Social History household members: spouse Smoking Status: Never smoker alcohol intake: never substance use type: does not use caffeine: Yes Type: carbonated beverages Number of servings: 1 and coffee Number of servings: 1 additional social history: DOES NOT USE IBUPROFEN ROS ROS ED Constitutional Constitutional ED: Denies chills or fever(s) Eyes Eyes: Denies change in vision or discharge from eye(s) ENT ENT ED: Denies discharge from eye(s), rhinorrhea or sore throat Cardiovascular Cardiovascular: Reports chest pain and palpitations Respiratory/Chest Respiratory/Chest: Reports dyspnea; Denies cough Gastrointestinal Gastrointestinal: Denies abdominal pain, diarrhea, nausea or vomiting Genitourinary Genitourinary ED: Denies difficulty urinating or dysuria Musculoskeletal Musculoskeletal: Reports extremity pain and other Details: Lower extremity edema ; Denies back pain Integumentary Denies Abrasions or rash Neurologic Neurologic: Denies headache(s) or weakness Psychiatric Psychiatric: Denies anxiety or depression Allergic/Immunologic Allergic/Immunologic ED: Denies lip swelling or urticaria EXAM Physical Exam Const Vital Signs: 10/09/22 15:54 10/09/22 16:20 10/09/22 16:33 Temperature 98.1 F Temperature Source Oral Pulse Rate 87 83 Respiratory Rate 20 H 18 Respiratory Effort Short of Breath Blood Pressure 147/109 H 132/62 H Blood Pressure Mean 121 85 Pulse Ox 95 98 Oxygen Delivery Method Room Air Room Air 10/09/22 20:16 Temperature Temperature Source Pulse Rate 78 Respiratory Rate 18 Respiratory Effort Blood Pressure 133/61 H Blood Pressure Mean Pulse Ox 94 Oxygen Delivery Method Positive well nourished and well developed General Appearance ED: well developed HEENT Reports normocephalic and head/scalp atraumatic Eyes PERRL and EOMs intact bilaterally Neck supple Chest Wall inspection of chest normal and palpation of chest normal Resp normal respiratory effort and clear to auscultation bilaterally Cardio regular rate and regular rhythm GI normal to inspection, nondistended, normoactive bowel sounds Palpation: soft Extremity Extremity Narrative: 3+ bilateral lower extremity edema. Neuro oriented x3 and no sensory deficits noted Sensorium / Orientation: alert Motor Exam: strength 5/5 throughout Psych mental status grossly normal Skin no rashes or lesions noted Heart Score History: Moderately Suspicious ECG: Normal Age: >/= 65 years Risk Factors: >/= 3 Risk Factors or History of CAD Troponin: </= Normal Limit Score: 5 MDM MDM MDM Narrative Medical decision making narrative: Patient placed on classroom monitor. She is given aspirin. EKG obtained to evaluate for cardiac arrhythmia/ischemia. Labwork obtained to evaluate for leukocytosis, anemia, and electrolyte derangement. Chest x-ray obtained to evaluate for acute lung pathology, cardiac size, or mediastinal abnormality. Lab Data Attestation: I reviewed the patient's lab results. Labs: Laboratory Results - last 24 hr 10/09/22 10/09/22 10/09/22 16:20 16:20 16:20 WBC 9.2 RBC 4.40 Hgb 11.1 L Hct 35.4 L MCV 80.5 L MCH 25.2 L MCHC 31.4 L RDW Std Deviation 49.0 H RDW Coeff of April 16.8 H Plt Count 312 MPV 10.4 Immature Gran % (Auto) 0.200 Neut % (Auto) 64.4 Lymph % (Auto) 22.1 [place] % (Auto) 9.2 Eos % (Auto) 3.3 Baso % (Auto) 0.8 Absolute Neuts (auto) 5.9 Absolute Lymphs (auto) 2.03 Nucleated RBC % 0 Sodium 141 Potassium 4.0 Chloride 109 H Carbon Dioxide 25.0 Anion Gap 7 BUN 21 H Creatinine 1.04 H Estim Creat Clear Calc 33.57 Est GFR (MDRD) Af Amer 66 Est GFR (MDRD) Non-Af 55 L BUN/Creatinine Ratio 20.2 H Glucose 128 H Calcium 9.7 Troponin I High Sens 7 B-Natriuretic Peptide 172.7 H 10/09/22 19:20 WBC RBC Hgb Hct MCV MCH MCHC RDW Std Deviation RDW Coeff of April Plt Count MPV Immature Gran % (Auto) Neut % (Auto) Lymph % (Auto) [place] % (Auto) Eos % (Auto) Baso % (Auto) Absolute Neuts (auto) Absolute Lymphs (auto) Nucleated RBC % Sodium Potassium Chloride Carbon Dioxide Anion Gap BUN Creatinine Estim Creat Clear Calc Est GFR (MDRD) Af Amer Est GFR (MDRD) Non-Af BUN/Creatinine Ratio Glucose Calcium Troponin I High Sens 6 B-Natriuretic Peptide Radiography Chest X-Ray - ED: 1 View, Read by ED Physician, Chronic Changes and No Infiltrates Diagnostic Testing: Clinical Impression(s) from Imaging Studies Chest X-Ray 10/09/22 16:25 IMPRESSION: No radiographic evidence of acute cardiopulmonary disease. Electronically Signed: Ren Pereira MD at 16:57 EDT , EKG Initial EKG: Attestation: I personally reviewed and interpreted this EKG as follows: Interpretation: Sinus Rhythm (Sinus 88 with no acute ischemia.) Treatment and Re-Evaluation :: CBC reveals normal white count with a hemoglobin 11.1. Normal platelet count. Chemistry studies unremarkable with normal renal function. Glucose is 128. Initial troponin is 7 with 2-hour repeat troponin 6. BNP is 172. Portable chest x-ray per my interpretation reveals chronic changes with no acute findings. Radiology interpretation is reviewed and agrees. EKG reveals no acute ischemia. I did review her prior cardiac records. Her last cath was in July 2021 and she had a stress test performed 3 months ago that was normal. Patient is on Eliquis and has been compliant with her medication. I do not believe we need to evaluate for DVT or PE. I do feel she likely has some degree of congestive heart failure and will be given 4 days of Lasix for diuresis. We discussed appropriate leg elevation to help with her swelling. Patient is to follow-up with her primary care physician as well as her ferry engineer. Return instructions are given. Discharge Plan Triage Chief Complaint: Chest Pain Other Complaint: Shortness of Breath ED Provider: Iliana Albarran Dx/Rx/DC Orders Clinical Impression: CHF (congestive heart failure), Chest pain Instructions: ED Heart Failure, Congestive (CHF), ED Chest Pain, Uncertain Cause Prescriptions: New furosemide [Lasix] 40 mg tablet 40 mg PO DAILY Qty: 4 0RF No Action potassium chloride 10 mEq tablet extended release 10 meq PO BID Label Comments: TAKE 1 TABLET BY MOUTH TWICE DAILY pantoprazole [Protonix] 40 mg tablet,delayed release (DR/EC) 40 mg PO DAILY Qty: 90 3RF spironolactone 25 mg tablet 25 mg PO DAILY Qty: 90 3RF cholecalciferol (vitamin D3) 25 mcg (1,000 unit) tablet 25 mcg PO DAILY nitroglycerin 0.4 mg Tablet, Sublingual 0.4 mg sublingual Q5M PRN (Reason: Cardiac/Chest Pain) Qty: 1 0RF sennosides-docusate sodium [Stool Softener-Stimulant Laxat] 8.6-50 mg Tablet 2 tab PO BID PRN PRN (Reason: Constipation) Qty: 0 0RF Rx Instructions: OTC clopidogrel [Plavix] 75 mg tablet 75 mg PO DAILY Qty: 90 3RF atorvastatin 40 mg tablet 40 mg PO QHS Qty: 90 3RF Eliquis 5 mg tablet 5 mg PO BID Qty: 180 4RF Hold Instructions: May resume from tomorrow a.m. losartan 50 mg tablet 50 mg PO DAILY Qty: 90 3RF amlodipine 5 mg tablet 5 mg PO DAILY Qty: 90 3RF metoprolol succinate 25 mg tablet extended release 24 hr 25 mg PO QHS Qty: 180 4RF isosorbide mononitrate 60 mg tablet extended release 24 hr 60 mg PO DAILY Qty: 90 3RF Primary Care Provider: Alexi Morin Chi Referrals: Darrell Jordan MD [Med Staff - Active Staff] - 1-2 Weeks Alexi Morin Chi, MD [Primary Care Provider] - 5-7 Days Disposition Disposition: Home, Self Care Discharge Date/Time: 10/09/22 20:22
--- NOTE | 2022-10-09 16:25 | RAD_ITS ---
EXAM: XR CHEST, 1 VIEW CLINICAL INDICATION: chest pain TECHNIQUE: Frontal view of the chest. COMPARISON: 03/23/2022 FINDINGS: LUNGS AND PLEURAL SPACES: Unremarkable. No consolidation or edema. No pneumothorax. No effusion. HEART: Unremarkable. Cardiac silhouette not enlarged. MEDIASTINUM: Central airways and mediastinal contour are unremarkable. BONES/JOINTS: Unremarkable. SOFT TISSUES: Unremarkable. RAD/Chest 1 View (Portable) IMPRESSION: No radiographic evidence of acute cardiopulmonary disease. Electronically Signed: Ren Pereira MD at 16:57 EDT ,
[2022-10-09 16:31] LABS: Absolute Lymphocyte Count 2.03 X10^3/uL (0.83-4.51); Absolute Neutrophil Count 5.9 X10^3/uL (2.0-7.7); Basophil# 0.07 X10^3/uL; Basophil% 0.8 % (0-1); Eosinophils% 3.3 % (0-5); Hematocrit 35.4 % (37-47); Hemoglobin 11.1 g/dL (12.0-15.0); Lymphocyte # 2.03 X10^3/ul (0.83-4.51); Lymphocyte % 22.1 % (19-41); Mean Corp Hgb Conc 31.4 g/dL (32-36); Mean Corpuscular Hgb 25.2 pg (27.0-32.0); Mean Corpuscular Volume 80.5 fL (81-99); Mean Platelet Vol. 10.4 fl (6.2-12.0); Monocyte# 0.84 X10^3/uL; Monocyte% 9.2 % (0-10); NRBC Flagged by Analyzer 0 % (0-5); Neutrophil # 5.92 X10^3/uL (2.7-7.7); Neutrophil % 64.4 % (47-70); Platelet Count 312 K/mm3 (150-450); RBC Distribution Width CV 16.8 % (11.6-14.6); White Blood Count 9.2 K/mm3 (4.4-11.0)
[2022-10-09] MEDS: Aspirin 81 MG TAB.CHEW 324 MG PO (16:32)
[2022-10-09 16:33] VITALS: BP 132/62; PULSE 83; RESP 18; O2SAT 98
[2022-10-09 16:59] LABS: Anion Gap 7 (5-15); BNP,B-Type NATRIURETIC PEPTIDE 172.7 pg/mL (0-100); BUN 21 mg/dL (7-18); BUN/Creat Ratio 20.2 RATIO (10-20); Calcium,Total 9.7 mg/dL (8.5-10.1); Chloride 109 mmol/L (98-107); Creatinine, Serum 1.04 mg/dL (0.55-1.02); EST Glomerular Filtration Rate 55 mL/min (>60); Est Glom Filt Rate - Afr Amer 66 mL/min (>60); Estimated Creatinine Clearance 33.57 ml/min; Glucose 128 mg/dL (74-106); Sodium Level 141 mmol/L (136-145); Troponin-I HS (w/2H Reflex) 7 pg/mL (3.0-54.0)
[2022-10-09 18:27] LABS: Reflex Troponin-HS? (from REC) Y
[2022-10-09 19:49] LABS: Troponin-I HS 6 pg/mL (3.0-54.0)
[2022-10-09 20:16] VITALS: BP 133/61; PULSE 78; RESP 18; O2SAT 94
== END 2022-10-09 20:22 | disposition home or self-care (01) ==
PROVIDERS: Emergency Provider Emergency Medicine; PCP Family Medicine Geriatric Medicine; Visit Provider Emergency Medicine
DX: R07.9 Chest pain, unspecified (principal); I11.0 Hypertensive heart disease with heart failure; I50.9 Heart failure, unspecified; I48.0 Paroxysmal atrial fibrillation; Z95.5 Presence of coronary angioplasty implant and graft; E78.5 Hyperlipidemia, unspecified; I25.10 Atherosclerotic heart disease of native coronary artery without angina pectoris; Z79.01 Long term (current) use of anticoagulants; I25.2 Old myocardial infarction; Z79.02 Long term (current) use of antithrombotics/antiplatelets; Z79.899 Other long term (current) drug therapy; K21.9 Gastro-esophageal reflux disease without esophagitis; Z96.653 Presence of artificial knee joint, bilateral; Z90.710 Acquired absence of both cervix and uterus; Z90.49 Acquired absence of other specified parts of digestive tract
CPT/HCPCS: 71045; 80048; 83880; 84484; 85025; 93005; 99285; A4216

== ENCOUNTER → 2022-10-10 | Outpatient (CLI) | payer MEDICARE, SELFPAY ==
[2022-06-16 15:20] VITALS: BMI 37.3
--- NOTE | 2022-10-10 11:10 | NM_ITS ---
CLINICAL: 77-year-old female with history of dysphasia gastrointestinal reflux. SEMI-SOLID PHASE 99m Tc SULFUR COLLOID GASTRIC EMPTYING STUDY COMPARISON: Previous semisolid phase gastric emptying examination report 08/15/2017 FINDINGS: The patient was administered 1.1 mCi of 99m Tc sulfur colloid mixed with oatmeal and consumed per os. Image acquisitions in the anterior projection were obtained for 60 minutes. There is prompt visualization of the stomach. There is no gastroesophageal reflux identified. The T ? raw data emptying was calculated to be 47.03 minutes, (Normal: 12-56 minutes) compared to 46.77 defined on the prior examination. NM/Gastric Emptying Study IMPRESSION: 1. NORMAL 99m Tc sulfur colloid semi-solid phase (oatmeal) gastric emptying imaging examination. A. There is normal and preserved semi-solid phase gastric emptying compared to normal controls with maintained first order kinetics throughout all components of the examination. (Mini et al, J Nucl Med Tech 38: 186, 2010). B. Overall compared to the previous semisolid phase gastric emptying examination dated 08/15/2017, there is no definitive interval change. Electronically Signed: Igor Alvarez, at 12:34 EDT ,
== END | disposition home or self-care (01) ==
LOC: NM 11:09
PROVIDERS: PCP Family Medicine Geriatric Medicine; Referring Provider Internal Medicine Gastroenterology; Visit Provider Internal Medicine Gastroenterology
DX: R13.10 Dysphagia, unspecified (principal)
CPT/HCPCS: 78264; A9541

== ENCOUNTER → 2022-10-18 | Outpatient (CLI) | payer MEDICARE, SELFPAY ==
[2022-06-16 15:20] VITALS: BMI 37.3
[2022-10-18 12:10] LABS: Anion Gap 3 (5-15); BUN 25 mg/dL (7-18); BUN/Creat Ratio 22.7 RATIO (10-20); Chloride 104 mmol/L (98-107); EST Glomerular Filtration Rate 51 mL/min (>60); Est Glom Filt Rate - Afr Amer 62 mL/min (>60); Glucose 124 mg/dL (74-106); Potassium 3.7 mmol/L (3.5-5.1); Sodium Level 139 mmol/L (136-145)
== END | disposition home or self-care (01) ==
LOC: LAB 11:22
PROVIDERS: PCP Family Medicine Geriatric Medicine; Referring Provider Family Medicine Geriatric Medicine; Visit Provider Family Medicine Geriatric Medicine
DX: I50.9 Heart failure, unspecified (principal); R06.02 Shortness of breath
CPT/HCPCS: 36415; 80048

== ENCOUNTER → 2022-10-30 | Outpatient (CLI) | payer MEDICARE, SELFPAY ==
[2022-06-16 15:20] VITALS: BMI 37.3
== END | disposition home or self-care (01) ==
PROVIDERS: PCP Family Medicine Geriatric Medicine; Visit Provider Family Medicine Geriatric Medicine
DX: N39.0 Urinary tract infection, site not specified (principal)
CPT/HCPCS: 87077; 87086; 87088; 87186

== ENCOUNTER → 2022-11-15 | Outpatient (CLI) | payer MEDICARE, SELFPAY ==
[2022-06-16 15:20] VITALS: BMI 37.3
[2022-11-15 13:30] LABS: Hematocrit 35.8 % (37-47); Hemoglobin 11.2 g/dL (12.0-15.0); Mean Corp Hgb Conc 31.3 g/dL (32-36); Mean Corpuscular Hgb 25.9 pg (27.0-32.0); Mean Corpuscular Volume 82.7 fL (81-99); Mean Platelet Vol. 9.7 fl (6.2-12.0); Platelet Count 333 K/mm3 (150-450); RBC Distribution Width CV 16.6 % (11.6-14.6); RBC Distribution Width SD 49.9 fl (35.1-43.9); Red Blood Count 4.33 M/mm3 (4.2-5.4); White Blood Count 6.6 K/mm3 (4.4-11.0)
[2022-11-15 13:43] LABS: International Normalized Ratio 1.3; Prothrombin Time (Protime)PT. 16.5 SECONDS (11.7-14.9)
[2022-11-15 13:44] LABS: Partial Thromboplast Time 37.6 Seconds (24.1-36.2)
[2022-11-15 14:15] LABS: Anion Gap 4 (5-15); BUN 15 mg/dL (7-18); BUN/Creat Ratio 16.6 RATIO (10-20); Calcium,Total 9.4 mg/dL (8.5-10.1); Chloride 109 mmol/L (98-107); EST Glomerular Filtration Rate 64 mL/min (>60); Est Glom Filt Rate - Afr Amer 78 mL/min (>60); Glucose 89 mg/dL (74-106); Sodium Level 142 mmol/L (136-145)
== END | disposition home or self-care (01) ==
LOC: LAB 12:46
PROVIDERS: PCP Family Medicine Geriatric Medicine; Referring Provider Internal Medicine Cardiovascular Disease; Visit Provider Internal Medicine Cardiovascular Disease
DX: I10 Essential (primary) hypertension (principal); I25.10 Atherosclerotic heart disease of native coronary artery without angina pectoris; R10.13 Epigastric pain
CPT/HCPCS: 36415; 80048; 85027; 85610; 85730

== ENCOUNTER → 2022-11-20 | Outpatient (CLI) | payer MEDICARE, SELFPAY ==
[2022-06-16 15:20] VITALS: BMI 37.3
--- NOTE | 2022-11-20 15:49 | US_ITS ---
EXAM: US RETROPERITONEAL LIMITED, RENAL CLINICAL INDICATION: UTI TECHNIQUE: Limited grayscale and color Doppler sonographic evaluation of the retroperitoneum was performed. COMPARISON: No relevant prior studies available. FINDINGS: RIGHT KIDNEY: Unremarkable. No hydronephrosis. No shadowing calculus. No perinephric collection is demonstrated. The right kidney measures 9.9 cm in length. LEFT KIDNEY: Unremarkable. No hydronephrosis. No shadowing calculus. No perinephric collection is demonstrated. The left kidney measures 9.5 cm in length. BLADDER: Urinary bladder wall is mildly thickened measuring 4 mm. US/Kidney and Bladder IMPRESSION: Urinary bladder wall is mildly thickened measuring 4 mm. Electronically Signed: Stanley Willson MD at 5:14 EDT ,
== END | disposition home or self-care (01) ==
LOC: US 15:49
PROVIDERS: PCP Family Medicine Geriatric Medicine; Referring Provider Urology; Visit Provider Urology
DX: N39.0 Urinary tract infection, site not specified (principal)
CPT/HCPCS: 76770

== ENCOUNTER 2022-11-22 12:04 | Observation (INO) | payer MEDICARE, SELFPAY ==
[2022-06-16 15:20] VITALS: BMI 37.3
[2022-11-22] VITALS (7 sets, daily range): BP systolic 128–172; BP diastolic 67–83; PULSE 65–77; RESP 13–18; TEMP 35.9–37; O2SAT 96–100; BMI 41.4; BMI 40.4
--- NOTE | 2022-11-22 13:08 | CT_ITS ---
STUDY: CT BRAIN WITHOUT CONTRAST REASON FOR EXAM: Female, 77 years old. Headache RADIATION DOSAGE (If Supplied By Facility): CTDIvol = ( 44.99 ) mGy, DLP = ( 796.11 ) mGycm TECHNIQUE: Transaxial CT imaging of the brain was performed without administration of intravenous contrast material. Individualized dose optimization techniques were used for this CT. COMPARISON: Comparison is made with prior study dated November 06, 2018. FINDINGS: Normal soft tissue structures. Normal calvarium. There is mild cerebral atrophy with widening of the extra-axial spaces and ventricular dilatation. There are areas of decreased attenuation within the white matter tracts of the supratentorial brain, consistent with microvascular disease changes. There are small punctate calcifications of the basal ganglia which are seen in the aging brain as a normal variant. Normal brainstem. Normal cerebellum. There is no intracranial hemorrhage. There are no findings of an acute ischemic infarction. Normal visualized paranasal sinuses. CT/Brain/Head without Contrast IMPRESSION: Chronic involutional changes of the brain. Electronically Signed: Peter Davidson MD at 14:01 EDT ,
[2022-11-22] MEDS: diazePAM 5 MG Tablet 2.5 MG PO (13:23)
[2022-11-22] MEDS: Ondansetron 4 MG/2 ML Vial IV (13:23)
[2022-11-22 13:32] LABS: Absolute Lymphocyte Count 1.29 X10^3/uL (0.83-4.51); Absolute Neutrophil Count 3.4 X10^3/uL (2.0-7.7); Basophil# 0.04 X10^3/uL; Basophil% 0.7 % (0-1); Eosinophil# 0.16 X10^3/uL; Eosinophils% 2.9 % (0-5); Hematocrit 34.3 % (37-47); Hemoglobin 10.3 g/dL (12.0-15.0); Lymphocyte # 1.29 X10^3/ul (0.83-4.51); Lymphocyte % 23.5 % (19-41); Mean Corpuscular Hgb 25.2 pg (27.0-32.0); Mean Corpuscular Volume 84.1 fL (81-99); Mean Platelet Vol. 9.9 fl (6.2-12.0); Monocyte# 0.58 X10^3/uL; Monocyte% 10.6 % (0-10); NRBC Flagged by Analyzer 0 % (0-5); Neutrophil # 3.39 X10^3/uL (2.7-7.7); Neutrophil % 61.8 % (47-70); Platelet Count 268 K/mm3 (150-450); RBC Distribution Width CV 16.2 % (11.6-14.6); RBC Distribution Width SD 49.9 fl (35.1-43.9); Red Blood Count 4.08 M/mm3 (4.2-5.4); White Blood Count 5.5 K/mm3 (4.4-11.0)
[2022-11-22 13:41] LABS: Anion Gap 3 (5-15); BUN 17 mg/dL (7-18); BUN/Creat Ratio 17.8 RATIO (10-20); Calcium,Total 8.7 mg/dL (8.5-10.1); Chloride 113 mmol/L (98-107); Creatinine, Serum 0.96 mg/dL (0.55-1.02); EST Glomerular Filtration Rate 61 mL/min (>60); Est Glom Filt Rate - Afr Amer 73 mL/min (>60); Estimated Creatinine Clearance 36.37 ml/min; Glucose 139 mg/dL (74-106); Potassium 4.2 mmol/L (3.5-5.1); Sodium Level 143 mmol/L (136-145)
[2022-11-22 13:43] LABS: Bacteria 0 SEEN /hpf (None Seen); Mucous, Urine 0 SEEN /hpf (<or=2+); Squamous Epithelial Cells - UA 0 SEEN /hpf (5-10)
[2022-11-22 13:50] LABS: Color, Urine Yellow (Yellow); Glucose, Dipstick Normal (Normal); Ketone-Dipstick Negative (Negative); Leukocyte Esterase-Dipstick 25 /ul (Negative); Nitrite-Dipstick Negative (Negative); Occult Blood-Urine 50 /ul (Negative); Protein-Dipstick 30 mg/dl (Negative); Specific Gravity, Urine 1.025 (1.002-1.030); Urine Bilirubin Dipstick Negative (Negative); Urine Clarity Sl. Cloudy (Clear); Urine Urobilinogen Normal (Normal)
[2022-11-22 14:02] LABS: Red Blood Cells-Urine 0-5 SEEN /hpf (0-5); White Blood Cells 0-5 SEEN /hpf (0-5)
[2022-11-22] MEDS: Meclizine HCl 25 MG Tablet PO ×2 (14:52→20:01)
[2022-11-22] MEDS: Acetaminophen 500 MG Tablet 1000 MG PO (15:41)
--- NOTE | 2022-11-22 16:38 | EDS_ITS ---
HPI History of Present Illness Chief Complaint: Dizziness Informant: patient Onset/Context/Timing Onset: Yesterday Context: Sudden Onset Timing: Continuous Quality: Spinning Location: Head Worsened by: Laying down Relieved by: Nothing Narrative Narrative: Patient presents with dizziness that began last night. Patient states she woke up in the middle of the night to go to the bathroom. Patient states she started feeling dizzy and the room was spinning at that time. Patient states it has been constant throughout the day today. Patient states she was able to ambulate with her 's walker to the bathroom. Patient states she was able to go back to sleep. Patient states that when she woke up today the spinning sensation was still there. Patient states it is worse whenever she lays down. Patient does admit to a mild headache. Patient states this is over the occipital area. Patient denies any fevers or chills. Patient denies any hearing changes or tinnitus. [facility] Medical History Arthritis Atherosclerosis of coronary artery of [place] heart without angina pectoris Atrial fibrillation Back pain Bilateral edema of lower extremity Bone fracture Breast lump in female Cardiac arrest Cataracts, bilateral Chronic anticoagulation Chronic venous insufficiency of lower extremity Contusion of right lower leg, sequela Coronary artery disease Depression Esophageal stenosis Fibromyalgia Gastroesophageal reflux disease Generalized osteoarthritis GERD (gastroesophageal reflux disease) Hemorrhoids History of back problems History of left heart catheterization (LHC) (~07/22/21) HTN (hypertension) Hyperlipidemia Hypokalemia Incontinence Iron deficiency anemia Left breast lump Mass of soft tissue Myocardial infarct Neuropathy of right lower extremity Obesity Osteoarthritis of knee Rheumatoid arthritis Shortness of breath Shoulder pain UTI (urinary tract infection) Vitamin deficiency Home Medications nitroglycerin 0.4 mg sublingual tablet 0.4 mg sublingual Q5M PRN Cardiac/Chest Pain #1 BOTTLE 12/05/20 [Rx Last Taken Unknown] clopidogrel 75 mg tablet (Plavix) 75 mg PO DAILY #90 tabs 09/14/21 [Rx Last Taken Unknown] atorvastatin 40 mg tablet 40 mg PO QHS Cholestrol #90 tabs 01/16/22 [Rx Last Taken Unknown] cholecalciferol (vitamin D3) 25 mcg (1,000 unit) tablet 25 mcg PO DAILY SUPPLEMENT 02/28/22 [History Last Taken Unknown] apixaban 5 mg tablet (Eliquis) 5 mg PO BID #180 tabs 03/20/22 [Rx Last Taken Unknown] sennosides 8.6 mg-docusate sodium 50 mg tablet (Stool Softener-Stimulant Laxative) 2 tab PO BID PRN PRN Constipation #0 tabs 03/25/22 [Rx Last Taken Unknown] losartan 50 mg tablet 50 mg PO DAILY BP #90 tabs 06/06/22 [Rx Last Taken Unknown] potassium chloride 10 mEq tablet,extended release 10 meq PO BID 07/06/22 [History Last Taken Unknown] spironolactone 25 mg tablet 25 mg PO DAILY #90 tabs 07/06/22 [Rx Last Taken Unknown] metoprolol succinate 25 mg tablet,extended release 24 hr 25 mg PO QHS #180 tabs 08/14/22 [Rx Last Taken Unknown] isosorbide mononitrate 60 mg tablet,extended release 24 hr 60 mg PO DAILY #90 tabs 08/21/22 [Rx Last Taken Unknown] furosemide 40 mg tablet (Lasix) 40 mg PO DAILY #4 tabs 10/09/22 [Rx Last Taken Unknown] prednisone 10 mg tablet 10 mg PO BID 10/18/22 [History Last Taken Unknown] pantoprazole 40 mg tablet,delayed release (Protonix) 40 mg PO BID #120 tabs 10/26/22 [Rx Last Taken Unknown] sucralfate 1 gram tablet 1 g PO QAC #90 tabs 10/26/22 [Rx Last Taken Unknown] vibegron 75 mg tablet (Gemtesa) 75 mg PO DAILY OVERACTIVE BLADDER 11/15/22 [History Last Taken Unknown] ascorbic acid (vitamin C) 500 mg tablet (Vitamin C) 500 mg PO QPM 11/22/22 [History Last Taken Unknown] methenamine hippurate 1 gram tablet 1 g PO DAILY UTI PREVENTION 11/22/22 [History Last Taken Unknown] Allergy/AdvReac Type Severity Reaction Status Date / Time bee pollen Allergy Anaphylaxis Verified 11/22/22 12:08 latex Allergy Swelling Verified 11/22/22 12:08 morphine Allergy Other Verified 11/22/22 12:08 Penicillins Allergy Hives Verified 11/22/22 12:08 ranolazine AdvReac Intermediate Dizzy and Verified 11/22/22 12:08 Lightheaded hydrocodone bitartrate AdvReac Abd Verified 11/22/22 12:08 [From Vicodin] cramps/diarrhea Family History Father Diabetes Heart disease Hypertension CVA (cerebral vascular accident) Parkinson disease Mother Breast cancer Hypertension Grandmother Cancer pancreatic cancer Ovarian cancer Son Anesthesia complication Brother Asthma Arthritis Diabetes Respiratory disease Grandfather Lung cancer CVA (cerebral vascular accident) Surgical History Hematoma history bilateral breast biopsies History of bilateral knee replacement History of cataract surgery History of coronary artery stent placement (11/16/20) History of hysterectomy History of laparoscopic cholecystectomy History of left breast biopsy (~11/2017) History of repair of right rotator cuff History of tonsillectomy and adenoidectomy Hx of appendectomy Social History household members: spouse Smoking Status: Never smoker alcohol intake: never substance use type: does not use caffeine: Yes Type: carbonated beverages Number of servings: 1 and coffee Number of servings: 1 additional social history: DOES NOT USE IBUPROFEN ROS ROS ED Constitutional Constitutional ED: Denies chills or fever(s) Eyes Eyes: Denies blurry vision or change in vision ENT ENT ED: Denies rhinorrhea or sore throat Cardiovascular Cardiovascular: Denies chest pain or palpitations Respiratory/Chest Respiratory/Chest: Denies cough or dyspnea Gastrointestinal Gastrointestinal: Denies nausea or vomiting Genitourinary Genitourinary ED: Denies dysuria or hematuria Musculoskeletal Musculoskeletal: Denies back pain or neck pain Integumentary Denies abscess or rash Neurologic Neurologic: Reports headache(s); Denies weakness Allergic/Immunologic Allergic/Immunologic ED: Denies mouth swelling or urticaria EXAM Physical Exam Const Vital Signs: 11/22/22 12:05 11/22/22 12:24 11/22/22 12:26 Temperature 98 F Temperature Source Temporal Pulse Rate 72 74 Pulse Rate [Lying] Pulse Rate [Sitting (for 1 minute prior to obtaining)] Pulse Rate [Standing (for 1 minute prior to obtaining)] Respiratory Rate 16 13 Respiratory Effort Short of Breath Respiratory Pattern Normal Blood Pressure 138/71 H 147/77 H Blood Pressure [Lying] Blood Pressure [Sitting (for 1 minute prior to obtaining)] Blood Pressure [Standing (for 1 minute prior to obtaining)] Blood Pressure Mean 93 100 Blood Pressure Mean [Lying] Blood Pressure Mean [Sitting (for 1 minute prior to obtaining)] Blood Pressure Mean [Standing (for 1 minute prior to obtaining)] Pulse Ox 97 97 Oxygen Delivery Method Room Air Room Air 11/22/22 14:04 Temperature Temperature Source Pulse Rate Pulse Rate [Lying] 72 Pulse Rate [Sitting (for 1 minute prior to obtaining)] 73 Pulse Rate [Standing (for 1 minute prior to obtaining)] 76 Respiratory Rate Respiratory Effort Respiratory Pattern Blood Pressure Blood Pressure [Lying] 128/71 H Blood Pressure [Sitting (for 1 minute prior to obtaining)] 131/76 H Blood Pressure [Standing (for 1 minute prior to obtaining)] 135/72 H Blood Pressure Mean Blood Pressure Mean [Lying] 90 Blood Pressure Mean [Sitting (for 1 minute prior to obtaining)] 94 Blood Pressure Mean [Standing (for 1 minute prior to obtaining)] 93 Pulse Ox Oxygen Delivery Method Positive well nourished and well developed General Appearance ED: well developed and NAD HEENT Reports moist mucous membranes Eyes PERRL and EOMs intact bilaterally Eyes Narrative: There is nystagmus with right lateral gaze. Neck supple and no JVD Resp normal respiratory effort and clear to auscultation bilaterally Cardio regular rate and regular rhythm GI non-tender and non-distended Palpation: soft Neuro oriented x3, CN's II-XII intact bilaterally and no sensory deficits noted Sensorium / Orientation: alert Motor Exam: strength 5/5 throughout Psych mental status grossly normal MDM MDM MDM Narrative Medical decision making narrative: Differential diagnosis includes vertigo, labyrinthitis, stroke, intracranial bleeding, anemia, electrolyte abnormality, hyperglycemia, hypoglycemia, and urinary tract infection. CT scan of the brain will be obtained to assess for stroke or intracranial bleeding. Basic metabolic profile will be obtained to assess for electrolyte abnormality and renal function. CBC will be obtained to assess for leukocytosis and anemia. Urinalysis will be obtained to assess for urinary tract infection and hematuria. Lab Data Attestation: I reviewed the patient's lab results. Lab results narrative: CBC was reviewed. There is a slight anemia with a hemoglobin of 10.3 and hem atocrit 34.3. This is stable compared to previous results. Basic metabolic profile was reviewed and was essentially within normal limits. Urinalysis was reviewed. There is no evidence of urinary tract infection or hematuria. Labs: Laboratory Results - last 24 hr 11/22/22 11/22/22 13:20 13:38 WBC 5.5 RBC 4.08 L Hgb 10.3 L Hct 34.3 L MCV 84.1 MCH 25.2 L MCHC 30.0 L RDW Std Deviation 49.9 H RDW Coeff of April 16.2 H Plt Count 268 MPV 9.9 Immature Gran % (Auto) 0.500 Neut % (Auto) 61.8 Lymph % (Auto) 23.5 [place] % (Auto) 10.6 H Eos % (Auto) 2.9 Baso % (Auto) 0.7 Absolute Neuts (auto) 3.4 Absolute Lymphs (auto) 1.29 Nucleated RBC % 0 Sodium 143 Potassium 4.2 Chloride 113 H Carbon Dioxide 27.0 Anion Gap 3 L BUN 17 Creatinine 0.96 Estim Creat Clear Calc 36.37 Est GFR (MDRD) Af Amer 73 Est GFR (MDRD) Non-Af 61 BUN/Creatinine Ratio 17.8 Glucose 139 H Calcium 8.7 Urine Color Yellow Urine Clarity Sl. Cloudy Urine pH 5.0 Ur Specific [place] 1.025 Urine Protein 30 H Urine Glucose (UA) Normal Urine Ketones Negative Urine Occult Blood 50 H Urine Nitrite Negative Urine Bilirubin Negative Urine Urobilinogen Normal Ur Leukocyte Esterase 25 H Urine RBC 0-5 SEEN Urine WBC 0-5 SEEN Ur Squamous Epith Cells 0 SEEN Urine Bacteria 0 SEEN Urine Mucus 0 SEEN Radiography Diagnostic Testing: Clinical Impression(s) from Imaging Studies Brain CT 11/22/22 13:08 IMPRESSION: Chronic involutional changes of the brain. Electronically Signed: Peter Davidson MD at 14:01 EDT , CT scan of the brain was obtained. There is no acute intracranial abnormality. This was interpreted by the radiologist and was also independently reviewed by myself. Management Discussion w/another healthcare provider: Hospitalist Treatment and Re-Evaluation :: Patient was given a dose of Valium initially. Orthostatic vital signs were obtained and were negative. Patient was given a dose of meclizine. Patient still had no improvement of her dizziness with this. [place] maneuvers were attempted. Patient had no improvement of her symptoms after [place] maneuvers. Case was discussed with the hospitalist. He will admit the patient for observation. Patient understood and was agreeable with the plan. All questions were answered. Discharge Plan Triage Chief Complaint: Dizziness ED Provider: Campos Tomlin Dx/Rx/DC Orders Clinical Impression: Dizziness, Vertigo Prescriptions: No Action potassium chloride 10 mEq tablet extended release 10 meq PO BID Patient Comments: TAKE 1 TABLET BY MOUTH TWICE DAILY spironolactone 25 mg tablet 25 mg PO DAILY Qty: 90 3RF prednisone 10 mg tablet 10 mg PO BID Gemtesa 75 mg tablet 75 mg PO DAILY cholecalciferol (vitamin D3) 25 mcg (1,000 unit) tablet 25 mcg PO DAILY nitroglycerin 0.4 mg Tablet, Sublingual 0.4 mg sublingual Q5M PRN (Reason: Cardiac/Chest Pain) Qty: 1 0RF sennosides-docusate sodium [Stool Softener-Stimulant Laxat] 8.6-50 mg Tablet 2 tab PO BID PRN PRN (Reason: Constipation) Qty: 0 0RF Rx Instructions: OTC furosemide [Lasix] 40 mg tablet 40 mg PO DAILY Qty: 4 0RF methenamine hippurate 1 gram tablet 1 g PO DAILY clopidogrel [Plavix] 75 mg tablet 75 mg PO DAILY Qty: 90 3RF atorvastatin 40 mg tablet 40 mg PO QHS Qty: 90 3RF Eliquis 5 mg tablet 5 mg PO BID Qty: 180 4RF Hold Instructions: May resume from tomorrow a.m. losartan 50 mg tablet 50 mg PO DAILY Qty: 90 3RF metoprolol succinate 25 mg tablet extended release 24 hr 25 mg PO QHS Qty: 180 4RF isosorbide mononitrate 60 mg tablet extended release 24 hr 60 mg PO DAILY Qty: 90 3RF sucralfate 1 gram tablet 1 g PO QAC Qty: 90 0RF pantoprazole [Protonix] 40 mg tablet,delayed release (DR/EC) 40 mg PO BID Qty: 120 1RF Rx Instructions: take two times a day for eight weeks then return to daily Primary Care Provider: Alexi Morin Chi Referrals: Alexi Morin Chi, MD [Primary Care Provider] - Disposition Disposition: Acute Care Hospital [facility]
--- NOTE | 2022-11-22 16:40 | PCM.HP.STD ---
[facility] - General General Date of Admission: 11/22/22 Date of Service: 11/22/22 Chief Complaint: Dizziness, lightheadedness, disequilibrium, vertigo started supervisor dials about 3 AM. HPI Narrative JIE HENRIQUEZ, is a 77 F came to ED after she had sudden onset of dizziness and vertigo that started about 3 AM while she was trying to go to bathroom. At that time she could not keep her balance, wobbly or stand erect therefore with the help of her and walker she went to bathroom. She states she does not feel weakness in her leg but could not balance herself. She she has mild blurry vision but denies diplopia, loss of vision/quadrantanopsia, change in speech or language or dysarthria. She has history of chronic esophageal dysphagia due to erosive esophagitis moderate Schatzki ring which required dilatation in March 2022. She still cannot swallow regular food with sip of water. No recent fever or URI or UTI. The ED physician tried Keyanna's maneuver but she still has dizziness and vertigo. No nystagmus Vitals in the ED were in the normal range. No EKG done in ED therefore EKG ordered. Patient was further admitted. [facility] Medical History Arthritis Atherosclerosis of coronary artery of [place] heart without angina pectoris Atrial fibrillation Back pain Bilateral edema of lower extremity Bone fracture Breast lump in female Cardiac arrest Cataracts, bilateral Chronic anticoagulation Chronic venous insufficiency of lower extremity Contusion of right lower leg, sequela Coronary artery disease Depression Esophageal stenosis Fibromyalgia Gastroesophageal reflux disease Generalized osteoarthritis GERD (gastroesophageal reflux disease) Hemorrhoids History of back problems History of left heart catheterization (LHC) (~07/22/21) HTN (hypertension) Hyperlipidemia Hypokalemia Incontinence Iron deficiency anemia Left breast lump Mass of soft tissue Myocardial infarct Neuropathy of right lower extremity Obesity Osteoarthritis of knee Rheumatoid arthritis Shortness of breath Shoulder pain UTI (urinary tract infection) Vitamin deficiency Home Medications nitroglycerin 0.4 mg sublingual tablet 0.4 mg sublingual Q5M PRN Cardiac/Chest Pain #1 BOTTLE 12/05/20 [Rx Last Taken 11/08/22] atorvastatin 40 mg tablet 40 mg PO QHS Cholestrol #90 tabs 01/16/22 [Rx Last Taken 11/21/22] cholecalciferol (vitamin D3) 25 mcg (1,000 unit) tablet 25 mcg PO DAILY SUPPLEMENT 02/28/22 [History Last Taken 11/22/22] apixaban 5 mg tablet (Eliquis) 5 mg PO BID BLOOD THINNER #180 tabs 03/20/22 [Rx Last Taken 11/22/22] losartan 50 mg tablet 50 mg PO DAILY BLOO PESSURE #90 tabs 06/06/22 [Rx Last Taken 11/22/22] potassium chloride 10 mEq tablet,extended release 10 meq PO DAILY SUPPLEMENT 07/06/22 [History Last Taken 11/22/22] metoprolol succinate 25 mg tablet,extended release 24 hr 25 mg PO QHS BLOOD PRESSURE #180 tabs 08/14/22 [Rx Last Taken 11/21/22] isosorbide mononitrate 60 mg tablet,extended release 24 hr 60 mg PO DAILY HEART #90 tabs 08/21/22 [Rx Last Taken 11/22/22] sucralfate 1 gram tablet 1 g PO QAC ULCERS #90 tabs 10/26/22 [Rx Last Taken 11/22/22] vibegron 75 mg tablet (Gemtesa) 75 mg PO DAILY OVERACTIVE BLADDER 11/15/22 [History Last Taken 11/22/22] amlodipine 2.5 mg tablet 2.5 mg PO DAILY BLOOD PRESSURE 11/22/22 [History Last Taken 11/22/22] ascorbic acid (vitamin C) 500 mg tablet (Vitamin C) 500 mg PO QPM SUPPLEMENT 11/22/22 [History Last Taken 11/21/22] methenamine hippurate 1 gram tablet 1 g PO DAILY UTI PREVENTION 11/22/22 [History Last Taken 11/22/22] pantoprazole 40 mg tablet,delayed release (Protonix) 40 mg PO DAILY ACID REFLUX 11/22/22 [History Last Taken 11/22/22] Allergy/AdvReac Type Severity Reaction Status Date / Time bee pollen Allergy Anaphylaxis Verified 11/22/22 12:08 latex Allergy Swelling Verified 11/22/22 12:08 morphine Allergy Other Verified 11/22/22 12:08 Penicillins Allergy Hives Verified 11/22/22 12:08 ranolazine AdvReac Intermediate Dizzy and Verified 11/22/22 12:08 Lightheaded hydrocodone bitartrate AdvReac Abd Verified 11/22/22 12:08 [From Vicodin] cramps/diarrhea Family History Father Diabetes Heart disease Hypertension CVA (cerebral vascular accident) Parkinson disease Mother Breast cancer Hypertension Grandmother Cancer pancreatic cancer Ovarian cancer Son Anesthesia complication Brother Asthma Arthritis Diabetes Respiratory disease Grandfather Lung cancer CVA (cerebral vascular accident) Surgical History Hematoma history bilateral breast biopsies History of bilateral knee replacement History of cataract surgery History of coronary artery stent placement (11/16/20) History of hysterectomy History of laparoscopic cholecystectomy History of left breast biopsy (~11/2017) History of repair of right rotator cuff History of tonsillectomy and adenoidectomy Hx of appendectomy Social History household members: spouse Smoking Status: Never smoker alcohol intake: never substance use type: does not use caffeine: Yes Type: carbonated beverages Number of servings: 1 and coffee Number of servings: 1 additional social history: DOES NOT USE IBUPROFEN ROS ROS Narrative Constitutional: Reports fatigue and weakness. No fever. HEENT: Dizziness and vertigo as described in HPI. Reports systems reviewed and no addt'l complaints, except as documented Respiratory/Chest: No acute shortness of breath or respiratory distress or wheezing. CVS: No acute chest pain or chest pressure or tightness. History of coronary artery stent and A-fib. Follows Dr. Almazan Gastrointestinal: Denies coffee ground emesis, hematemesis or vomiting Genitourinary: Denies burning urination or new urinary tract symptoms Musculoskeletal: Chronic degenerative arthritis. Denies acute joint pain or limited range of motion. No acute injury Neurologic: Denies seizure-like symptoms. Denies history of stroke. skin: Chronic right lower leg eschar, surgery done by Dr. De Dios for hematoma. No acute ulcer. Endocrinology: Reports systems reviewed and no addt'l complaints, except as documented Hematologic/Lymphatic: Reports systems reviewed and no addt'l complaints, except as documented Rest 14 ROS are negative except as mentioned in HPI Vital Signs Vital Signs Vital Signs: 11/22/22 12:05 11/22/22 12:24 11/22/22 12:26 Temperature 98 F Temperature Source Temporal Pulse Rate 72 74 Pulse Rate [Lying] Pulse Rate [Sitting (for 1 minute prior to obtaining)] Pulse Rate [Standing (for 1 minute prior to obtaining)] Respiratory Rate 16 13 Respiratory Effort Short of Breath Respiratory Pattern Normal Blood Pressure 138/71 H 147/77 H Blood Pressure [Lying] Blood Pressure [Sitting (for 1 minute prior to obtaining)] Blood Pressure [Standing (for 1 minute prior to obtaining)] Blood Pressure Mean 93 100 Blood Pressure Mean [Lying] Blood Pressure Mean [Sitting (for 1 minute prior to obtaining)] Blood Pressure Mean [Standing (for 1 minute prior to obtaining)] Pulse Ox 97 97 Oxygen Delivery Method Room Air Room Air 11/22/22 14:04 Temperature Temperature Source Pulse Rate Pulse Rate [Lying] 72 Pulse Rate [Sitting (for 1 minute prior to obtaining)] 73 Pulse Rate [Standing (for 1 minute prior to obtaining)] 76 Respiratory Rate Respiratory Effort Respiratory Pattern Blood Pressure Blood Pressure [Lying] 128/71 H Blood Pressure [Sitting (for 1 minute prior to obtaining)] 131/76 H Blood Pressure [Standing (for 1 minute prior to obtaining)] 135/72 H Blood Pressure Mean Blood Pressure Mean [Lying] 90 Blood Pressure Mean [Sitting (for 1 minute prior to obtaining)] 94 Blood Pressure Mean [Standing (for 1 minute prior to obtaining)] 93 Pulse Ox Oxygen Delivery Method Weight Weight: 212 lb 1.355 oz Body Mass Index (BMI) 41.4 Physical Exam Narrative General: Alert, Oriented x3, Cooperative HEENT: Atraumatic, PERRLA, EOMI, Normocephalic. No diplopia/quadrantanopsia/similar.. Field of vision intact. Oral: Oral mucosa dry. No Gingival or Mucosal Lesions/ Ulcerations Neck: Supple, No JVD, Negative Carotid Bruits Lungs: Air entry diminished in bilateral lung bases. No crepitation/rhonchi Cardiovascular: Regular rate, Regular Rhythm, Normal S1, Normal S2, No murmurs Abdomen: Bowel Sounds Present, Soft, Non Tender, Non-Distended : No renal angle tenderness. No suprapubic tenderness. Extremities: Chronic swelling of right lower leg, left lower leg is recent, Capillary Refill Less than 3 Seconds Skin: Chronic eschar on the right lower leg. No ulcer or rash. Musculoskeletal: No Tenderness to Palpation of Joints or Extremities. Degenerative arthritis of both knees and hips joint status post bilateral TKR Neurological: Cranial nerves II-XII grossly intact, DTR 2+/4. Muscle strength 5/5 at major joints. Finger-nose and heel chirinos test are negative. Psych/Mental Status: Normal Affect, Appropriate. Results Lab / Micro Data 11/22/22 13:20 11/22/22 13:20 Labs: Laboratory Results - last 24 hr 11/22/22 13:20: WBC 5.5, RBC 4.08 L, Hgb 10.3 L, Hct 34.3 L, MCV 84.1, MCH 25.2 L, MCHC 30.0 L, RDW Std Deviation 49.9 H, RDW Coeff of April 16.2 H, Plt Count 268, MPV 9.9, Immature Gran % (Auto) 0.500, Neut % (Auto) 61.8, Lymph % (Auto) 23.5, [place] % (Auto) 10.6 H, Eos % (Auto) 2.9, Baso % (Auto) 0.7, Absolute Neuts (auto) 3.4, Absolute Lymphs (auto) 1.29, Nucleated RBC % 0, Sodium 143, Potassium 4.2, Chloride 113 H, Carbon Dioxide 27.0, Anion Gap 3 L, BUN 17, Creatinine 0.96, Estim Creat Clear Calc 36.37, Est GFR (MDRD) Af Amer 73, Est GFR (MDRD) Non-Af 61, BUN/Creatinine Ratio 17.8, Glucose 139 H, Calcium 8.7 11/22/22 13:38: Urine Color Yellow, Urine Clarity Sl. Cloudy, Urine pH 5.0, Ur Specific [place] 1.025, Urine Protein 30 H, Urine Glucose (UA) Normal, Urine Ketones Negative, Urine Occult Blood 50 H, Urine Nitrite Negative, Urine Bilirubin Negative, Urine Urobilinogen Normal, Ur Leukocyte Esterase 25 H, Urine RBC 0-5 SEEN, Urine WBC 0-5 SEEN, Ur Squamous Epith Cells 0 SEEN, Urine Bacteria 0 SEEN, Urine Mucus 0 SEEN Radiology Impression Brain CT 11/22/22 13:08 IMPRESSION: Chronic involutional changes of the brain. Electronically Signed: Peter Davidson MD at 14:01 EDT , Assessment & Plan Assessment/Plan (1) Vertigo: (2) Dyslipidemia: PLAN: Plan 1. Acute onset of dizziness and vertigo, loss of equilibrium probably BPPV but rule out a stroke: Patient is being admitted in PCU. PT OT and speech therapy ordered. Patient did not tolerate well Keyanna maneuver with ER physician. MRI brain without contrast ordered to rule out a stroke. If stroke is positive will need further work-up including head and neck vascular study and echo. 2. History of chronic esophagitis and esophageal dysphagia/stenosis : Speech therapist ordered. The patient had EGD in March 2022 during previous admission which showed LA grade C erosive esophagitis treated with heater probe. Moderate schatzki ring; dilated, small hiatus hernia, gastric mucosal atrophy, normal first duodenum. Patient on PPI. Patient has follow-up coming with Dr. Greenfield in 2 weeks. 3. Coronary artery disease status post stent and chronic A-fib: Twelve-lead EKG reviewed shows A-fib, chronic 80/min QTc 495 ms.2D Echo on September 2021 shows EF 65%, mild MR, mild TR RVSP 31 mmHg. No acute chest pain or shortness of breath. 4. Chronic iron deficiency anemia: Hemoglobin 10.3, platelet count 268. Patient hemoglobin is is around baseline about 10.5 during previous admission in March 2022. 5 hypertension: Blood pressure is controlled. 6.chronic l A. fib on Eliquis: Continue Eliquis 5 mg twice daily. VTE prophylaxis: On Eliquis as mentioned above. Living will/advanced directive/end of life care: Patient does not have living will or advanced directive. She does not have designated power of mergers and acquisitions attorney for health. After discussion of benefits/risks procedures involved with full code, DNR CC arrest and DNR CC, the patient opted for full code. Patient does want artificial life support including intubation, tube feed, ventilator and/chest compression, central venous catheter, vasopressor and DC shock if needed Total time spent in [id number] encounter in discussion of advanced directive 17 minutes. Laboratory Results 11/22/22 13:20: WBC 5.5, RBC 4.08 L, Hgb 10.3 L, Hct 34.3 L, MCV 84.1, MCH 25.2 L, MCHC 30.0 L, RDW Std Deviation 49.9 H, RDW Coeff of April 16.2 H, Plt Count 268, MPV 9.9, Immature Gran % (Auto) 0.500, Neut % (Auto) 61.8, Lymph % (Auto) 23.5, [place] % (Auto) 10.6 H, Eos % (Auto) 2.9, Baso % (Auto) 0.7, Absolute Neuts (auto) 3.4, Absolute Lymphs (auto) 1.29, Nucleated RBC % 0, Sodium 143, Potassium 4.2, Chloride 113 H, Carbon Dioxide 27.0, Anion Gap 3 L, BUN 17, Creatinine 0.96, Estim Creat Clear Calc 36.37, Est GFR (MDRD) Af Amer 73, Est GFR (MDRD) Non-Af 61, BUN/Creatinine Ratio 17.8, Glucose 139 H, Calcium 8.7 11/22/22 13:38: Urine Color Yellow, Urine Clarity Sl. Cloudy, Urine pH 5.0, Ur Specific [place] 1.025, Urine Protein 30 H, Urine Glucose (UA) Normal, Urine Ketones Negative, Urine Occult Blood 50 H, Urine Nitrite Negative, Urine Bilirubin Negative, Urine Urobilinogen Normal, Ur Leukocyte Esterase 25 H, Urine RBC 0-5 SEEN, Urine WBC 0-5 SEEN, Ur Squamous Epith Cells 0 SEEN, Urine Bacteria 0 SEEN, Urine Mucus 0 SEEN Clinical Impression(s) from Imaging Studies Brain CT 11/22/22 13:08 IMPRESSION: Chronic involutional changes of the brain. Charges/Coding Visit Charges Inpatient E&M: 22608 Init Hosp L3 Procedures Hospitalists Procedures: 75611 Advncd Care Plan 30 Min
--- NOTE | 2022-11-22 17:00 | EKG12_ITS ---
Test Reason : Blood Pressure : / mmHG Vent. Rate : 080 BPM Atrial Rate : 000 BPM P-R Int : 000 ms QRS Dur : 074 ms QT Int : 430 ms P-R-T Axes : 000 -02 -09 degrees QTc Int : 495 ms Sinus rhythm with PAC's Cannot rule out Anterior infarct , age undetermined Abnormal ECG Confirmed by ADELIA BENNETT, NAILA ([id number]), fan mail editor CLAUDIA DIOP ([id number]) on 11/24/2022 1:25:13 PM Referred By: ASUNCION Confirmed By:GARFIELD DELVALLE MD
[2022-11-22] MEDS: Lactated Ringers 1,000 ML 75 ML IV (18:39)
--- NOTE | 2022-11-22 19:34 | NURSING ---
Reviewed charting with Zulma Alberto RN
--- NOTE | 2022-11-22 19:44 | VDLE_ITS ---
Reason For Study: Bilateral leg swelling RIGHT LEFT GSV is normal. GSV is normal. CFV is compressible, spontaneous, phasic, CFV is compressible, spontaneous, phasic, competent and demonstrates normal competent, and demonstrates normal augmentation. augmentation. FV is compressible, spontaneous, phasic, FV is compressible, spontaneous, phasic, competent and demonstrates normal competent and demonstrates normal augmentation. augmentation. FV mid-distal visualized with color only, FV mid-distal visualized with color only, appear patent. Unable to tolerate appear patent. Unable to tolerate compression. compression. POP V is compressible, spontaneous, phasic, POP V is compressible, spontaneous, phasic, competent and demonstrates normal competent and demonstrates normal augmentation. augmentation. T/P Trunk is compressible. T/P Trunk is compressible. PTV is compressible. PTV is compressible. RT PerV is compressible. LT PerV is compressible. Procedure This is a venous duplex using B-mode, color flow and spectral Doppler. Exam performed portable in patient room. A preliminary report was called and/or faxed to [facility]. VL/Venous Duplex US - Pedro Extrem Interpretation Summary No evidence for acute deep venous thrombosis bilateral lower extremities with p atent and compressible bilateral great saphenous veins. Technical limitations as noted in specting bilateral femoral veins. Ordering Physician: Óscar Craft Referring Physician: Alexi Morin Chi Performed By: Mariposa Elizabeth RVT
[2022-11-22] MEDS: Heparin Injection (Vial) 5,000 UNIT/ML VIAL 5000 UNIT SC (20:03)
[2022-11-23] VITALS: BP 130/74; PULSE 78; RESP 18; TEMP 36.4; O2SAT 94
[2022-11-23 03:06] VITALS: BMI 41.4
[2022-11-23 04:00] VITALS: BP 154/84; PULSE 78; RESP 16; TEMP 35.8; O2SAT 95
[2022-11-23 04:11] VITALS: BMI 41.4
[2022-11-23 05:44] LABS: Absolute Lymphocyte Count 1.37 X10^3/uL (0.83-4.51); Absolute Neutrophil Count 3.3 X10^3/uL (2.0-7.7); Basophil# 0.04 X10^3/uL; Basophil% 0.7 % (0-1); Eosinophil# 0.23 X10^3/uL; Eosinophils% 4.2 % (0-5); Hematocrit 31.2 % (37-47); Hemoglobin 9.8 g/dL (12.0-15.0); Lymphocyte # 1.37 X10^3/ul (0.83-4.51); Lymphocyte % 25.3 % (19-41); Mean Corp Hgb Conc 31.4 g/dL (32-36); Mean Corpuscular Volume 82.8 fL (81-99); Mean Platelet Vol. 10.1 fl (6.2-12.0); Monocyte# 0.52 X10^3/uL; Monocyte% 9.6 % (0-10); NRBC Flagged by Analyzer 0 % (0-5); Neutrophil # 3.25 X10^3/uL (2.7-7.7); Platelet Count 241 K/mm3 (150-450); RBC Distribution Width CV 16.2 % (11.6-14.6); RBC Distribution Width SD 49.1 fl (35.1-43.9); Red Blood Count 3.77 M/mm3 (4.2-5.4); White Blood Count 5.4 K/mm3 (4.4-11.0)
[2022-11-23 06:34] LABS: Anion Gap 1 (5-15); BUN 15 mg/dL (7-18); BUN/Creat Ratio 18.2 RATIO (10-20); Calcium,Total 8.5 mg/dL (8.5-10.1); Chloride 111 mmol/L (98-107); Creatinine, Serum 0.82 mg/dL (0.55-1.02); EST Glomerular Filtration Rate 72 mL/min (>60); Est Glom Filt Rate - Afr Amer 87 mL/min (>60); Estimated Creatinine Clearance 42.58 ml/min; Glucose 87 mg/dL (74-106); Sodium Level 142 mmol/L (136-145)
[2022-11-23 08:14] VITALS: BP 162/85; PULSE 86; RESP 16; TEMP 37.1; O2SAT 92
--- NOTE | 2022-11-23 09:00 | MRI_ITS ---
HISTORY: suspected stroke -- vertigo. TECHNIQUE: Multiplanar and multisequence MR images of the brain were obtained without contrast. 280 images. COMPARISON: CT prior day. FINDINGS: BRAIN PARENCHYMA: Multiple foci and small zones of increased T2 FLAIR signal in the bilateral cerebral white matter. No abnormal focus of restricted diffusion. No acute intracranial hemorrhage identified. CSF SPACES: Generalized volume loss. No significant midline shift or other mass effect.No extra-axial fluid collection. VASCULAR SYSTEM: Major intracranial flow voids are maintained. PARANASAL SINUSES AND MASTOID AIR CELLS: No significant air fluid levels. ORBITS: Right lens resection. MRI/Brain without Contrast IMPRESSION: No evidence for acute infarct. Moderate chronic involutional and white matter changes. Electronically Signed: Danya Ch MD at 11:05 EDT ,
[2022-11-23] MEDS: Heparin Injection (Vial) 5,000 UNIT/ML VIAL 5000 UNIT SC (11:55)
[2022-11-23 12:26] VITALS: BMI 41.4
--- NOTE | 2022-11-23 14:32 | CHAPLAIN ---
Type of Pastoral Visit _x__ Initial Visit ___ Follow-up Visit ___ On-call Visit ___ General Patient Visit ___ Spiritual Assessment ___ Family Conference ___ Bereavement ___ Rapid Response ___ Code Blue ___ Other (describe below) Pastoral Care Referral From _x__ Patient ___ Family ___ Nurse ___ Physician ___ Biofuels Production Associate ___ Dictionary Editor ___ Other (describe below) Sacrament/Intervention _x__ Active listening ___ Anointing ___ Oriental Orthodox ___ Bereavement ___ Communion ___ Marivel exploration ___ ___ Life review _x__ Prayer ___ Reconciliation ___ Sacrament of Sick ___ Supportive presence ___ Wedding ___ Other (describe below) Pastoral Comments patient explains her health situation and hopes for some improvement soon; spouse is with her; pt requests prayer for support
--- NOTE | 2022-11-23 14:34 | DCINST_ITS ---
Discharge Instructions Diet Discharge Diet: No restrictions Activity Discharge Activity: Return to Normal Activity and Use Walker Weight Bearing Status: Full weight bearing Follow Up Care Test Results: Test results from this visit will be discussed in further detail at your follow- up appointment, if applicable. Discharge Plan Admission Admit Date/Time: 11/22/22 16:35 Primary Reason for Your Visit: vertigo Attending Provider: Leroy White Primary Care Provider: Alexi Morin Chi Consulting Providers: Óscar Craft Discharge Orders/Prescriptions Prescriptions: New diazepam [Valium] 2 mg tablet 2 mg PO UD PRN (Reason: dizziness or vertigo) Qty: 20 0RF Rx Instructions: 1 3-4 times a day for dizziness ondansetron HCl 4 mg tablet 4 mg PO Q6H PRN (Reason: nausea and vomiting) Qty: 15 0RF Continued potassium chloride 10 mEq tablet extended release 10 meq PO DAILY Gemtesa 75 mg tablet 75 mg PO DAILY cholecalciferol (vitamin D3) 25 mcg (1,000 unit) tablet 25 mcg PO DAILY nitroglycerin 0.4 mg Tablet, Sublingual 0.4 mg sublingual Q5M PRN (Reason: Cardiac/Chest Pain) Qty: 1 0RF methenamine hippurate 1 gram tablet 1 g PO DAILY ascorbic acid (vitamin C) [Vitamin C] 500 mg tablet 500 mg PO QPM amlodipine 2.5 mg tablet 2.5 mg PO DAILY pantoprazole [Protonix] 40 mg tablet,delayed release (DR/EC) 40 mg PO DAILY atorvastatin 40 mg tablet 40 mg PO QHS Qty: 90 3RF Eliquis 5 mg tablet 5 mg PO BID Qty: 180 4RF Hold Instructions: May resume from tomorrow a.m. losartan 50 mg tablet 50 mg PO DAILY Qty: 90 3RF metoprolol succinate 25 mg tablet extended release 24 hr 25 mg PO QHS Qty: 180 4RF isosorbide mononitrate 60 mg tablet extended release 24 hr 60 mg PO DAILY Qty: 90 3RF sucralfate 1 gram tablet 1 g PO QAC Qty: 90 0RF Referrals / Follow Up: Alexi Morin Chi, MD [Primary Care Provider] - Within 2 Weeks Disposition Disposition (needs filled in before D/C Order can be placed): Home, Self Care
[2022-11-23 14:35] VITALS: BP 147/81; PULSE 81; RESP 16; TEMP 37; O2SAT 94
--- NOTE | 2022-11-23 14:53 | DS.PCM_ITS ---
Providers Date of Admission: 11/22/22 Date of Discharge: 11/23/22 Primary Care Physician: Dr. Alexi Morin MD Reason For Visit: VERTIGO, DIZZINESS Diagnosis Discharge Diagnosis (1) Vertigo: Status: Acute Code(s): R42 - Dizziness and giddiness (2) Dyslipidemia: Status: Chronic Code(s): E78.5 - Hyperlipidemia, unspecified Plan 1 benign vertigo #2 coronary artery disease #3 essential hypertension #4 hyperlipidemia Medications at Discharge Home Medications nitroglycerin 0.4 mg sublingual tablet 0.4 mg sublingual Q5M PRN Cardiac/Chest Pain #1 BOTTLE 12/05/20 atorvastatin 40 mg tablet 40 mg PO QHS Cholestrol #90 tabs 01/16/22 cholecalciferol (vitamin D3) 25 mcg (1,000 unit) tablet 25 mcg PO DAILY SUPPLEMENT 02/28/22 apixaban 5 mg tablet (Eliquis) 5 mg PO BID BLOOD THINNER #180 tabs 03/20/22 losartan 50 mg tablet 50 mg PO DAILY BLOO PESSURE #90 tabs 06/06/22 potassium chloride 10 mEq tablet,extended release 10 meq PO DAILY SUPPLEMENT 07/06/22 metoprolol succinate 25 mg tablet,extended release 24 hr 25 mg PO QHS BLOOD PRESSURE #180 tabs 08/14/22 isosorbide mononitrate 60 mg tablet,extended release 24 hr 60 mg PO DAILY HEART #90 tabs 08/21/22 sucralfate 1 gram tablet 1 g PO QAC ULCERS #90 tabs 10/26/22 vibegron 75 mg tablet (Gemtesa) 75 mg PO DAILY OVERACTIVE BLADDER 11/15/22 amlodipine 2.5 mg tablet 2.5 mg PO DAILY BLOOD PRESSURE 11/22/22 ascorbic acid (vitamin C) 500 mg tablet (Vitamin C) 500 mg PO QPM SUPPLEMENT 11/22/22 methenamine hippurate 1 gram tablet 1 g PO DAILY UTI PREVENTION 11/22/22 pantoprazole 40 mg tablet,delayed release (Protonix) 40 mg PO DAILY ACID REFLUX 11/22/22 diazepam 2 mg tablet (Valium) 2 mg PO UD PRN dizziness or vertigo #20 tabs 11/23/22 ondansetron HCl 4 mg tablet 4 mg PO Q6H PRN nausea and vomiting #15 tabs 11/23/22 ranolazine 500 mg tablet,extended release,12 hr 500 mg PO Q12H #60 tabs 11/24/22 Hospital Course Operations None Procedures None Summary of Care Provided Minutes Spent on Discharge: 30 Hospital Course: 77-year-old white female was seen in the emergency room with complaints of dizziness which she had begun the night before. She described a spinning sensation of the room around her. Work-up in the emergency room included a CBC which was abnormal for hemoglobin of 10.3, patient's urinalysis was unr emarkable, patient's chemistry panel was unremarkable. CT of the brain did not show any acute process. Patient was medicated by the emergency room physician for her symptoms, she unfortunately was not able to ambulate and was placed into observation status on PCU. She received supportive care and was seen by PT and OT. Patient's symptoms improved during her hospital stay. Patient's MRI scan di d not show any evidence of acute stroke On 11/23/2022, patient was seen and examined: On examination she appeared in good health and spirits, she does not appear to be in any distress. Vital signs as d ocumented. Skin warm and dry and without overt rashes. Neck without JVD, thyroid appears normal, trachea is midline, neck is supple. Lungs clear, normal air movement was noted. Heart exam notable for regular rhythm, normal sounds and absence of murmurs, rubs or gallops. Abdomen unremarkable and without evidence of organomegaly, masses, or abdominal aortic enlargement, bowel sounds are present in all 4 quadrants, no abdominal tenderness was noted. Extremities nonedematous, no cyanosis was noted, no clubbing was noted. Neuro: Cranial nerves II through XII are grossly intact, no focal motor deficits were noted, sensation to light touch and pinprick is intact, motor exam 5/5 throughout. Psych: Patient is alert and oriented x3, she does not appear anxious or depressed, she does not appear agitated. On 11/23/2022, patient was seen and examined and felt to be in stable condition for discharge home Weight / BMI Weight Weight: 96.2 kg Body Mass Index (BMI) 41.4 ABG / Lab / Microbiology Data 11/23/22 05:14 11/23/22 05:14 Laboratory: Laboratory Results - last 24 hr 11/23/22 05:14: WBC 5.4, RBC 3.77 L, Hgb 9.8 L, Hct 31.2 L, MCV 82.8, MCH 26.0 L , MCHC 31.4 L, RDW Std Deviation 49.1 H, RDW Coeff of April 16.2 H, Plt Count 241, MPV 10.1, Immature Gran % (Auto) 0.200, Neut % (Auto) 60.0, Lymph % (Auto) 25.3, Cuming % (Auto) 9.6, Eos % (Auto) 4.2, Baso % (Auto) 0.7, Absolute Neuts (auto) 3.3, Absolute Lymphs (auto) 1.37, Nucleated RBC % 0, Sodium 142, Potassium 4.0, Chloride 111 H, Carbon Dioxide 30.0, Anion Gap 1 L, BUN 15, Creatinine 0.82, Estim Creat Clear Calc 42.58, Est GFR (MDRD) Af Amer 87, Est GFR (MDRD) Non-Af 72, BUN/Creatinine Ratio 18.2, Glucose 87, Calcium 8.5, TSH 1.50 Radiography Diagnostic Testing: Radiology Impression Venous Doppler Study 11/22/22 19:44 Interpretation Summary No evidence for acute deep venous thrombosis bilateral lower extremities with patent and compressible bilateral great saphenous veins. Technical limitations as noted inspecting bilateral femoral veins. Ordering Physician: Óscar Craft Referring Physician: Alexi Morin Chi Performed By: Mariposa Elizabeth, LOLLY Brain MRI 11/23/22 09:00 IMPRESSION: No evidence for acute infarct. Moderate chronic involutional and white matter changes. Electronically Signed: Danya Ch MD at 11:05 EDT , D/C Instructions Discharge Diet: No restrictions Weight Bearing Status: Full weight bearing Meaningful Use Info Meaningful Use Diagnoses (Choose all that apply): None applicable Discharge Plan Admission Admit Date/Time: 11/22/22 16:35 Primary Reason for Your Visit: vertigo Attending Provider: Leroy White Primary Care Provider: Alexi Morin Chi Consulting Providers: Óscar Craft Discharge Orders/Prescriptions Prescriptions: New diazepam [Valium] 2 mg tablet 2 mg PO UD PRN (Reason: dizziness or vertigo) Qty: 20 0RF Rx Instructions: 1 3-4 times a day for dizziness ondansetron HCl 4 mg tablet 4 mg PO Q6H PRN (Reason: nausea and vomiting) Qty: 15 0RF Continued potassium chloride 10 mEq tablet extended release 10 meq PO DAILY Gemtesa 75 mg tablet 75 mg PO DAILY cholecalciferol (vitamin D3) 25 mcg (1,000 unit) tablet 25 mcg PO DAILY nitroglycerin 0.4 mg Tablet, Sublingual 0.4 mg sublingual Q5M PRN (Reason: Cardiac/Chest Pain) Qty: 1 0RF methenamine hippurate 1 gram tablet 1 g PO DAILY ascorbic acid (vitamin C) [Vitamin C] 500 mg tablet 500 mg PO QPM amlodipine 2.5 mg tablet 2.5 mg PO DAILY pantoprazole [Protonix] 40 mg tablet,delayed release (DR/EC) 40 mg PO DAILY atorvastatin 40 mg tablet 40 mg PO QHS Qty: 90 3RF Eliquis 5 mg tablet 5 mg PO BID Qty: 180 4RF Hold Instructions: May resume from tomorrow a.m. losartan 50 mg tablet 50 mg PO DAILY Qty: 90 3RF metoprolol succinate 25 mg tablet extended release 24 hr 25 mg PO QHS Qty: 180 4RF isosorbide mononitrate 60 mg tablet extended release 24 hr 60 mg PO DAILY Qty: 90 3RF sucralfate 1 gram tablet 1 g PO QAC Qty: 90 0RF No Action ranolazine 500 mg tablet extended release 12 hr 500 mg PO Q12H Qty: 60 2RF Referrals / Follow Up: Alxei Morin Chi, MD [Primary Care Provider] - Within 2 Weeks (The office will be calling you to schedule an appt for you. If you haven't heard from the office by Sunday11-27-22 please call the office to schedule your appt. ) Disposition Disposition (needs filled in before D/C Order can be placed): Home, Self Care Charges/Coding Visit Charges Inpatient E&M: 02078 Disch Hosp
--- NOTE | 2022-11-23 14:55 | CASEMGMT ---
Addendum entered by Nilam Esquivel 11/23/22 17:56: 1630: Daniel walker was delivered to pt's room and TINO FAJARDO was informed that it is slightly too short for pt. Call to [employer] [facility] who states to have it exchanged w/a standard walker from [facility] supply room. Daniel walker to be returned to [facility] closet w/a note on it. [employer], credit charge authorizer, made aware. New script for standard walker sent to [facility] via [employer]. Original Note: TINO FAJARDO NOTE: Pt being discharged. Reviewed PT/OT evals. OP PT/vestibular therapy and OP OT recommended. TINO FAJARDO was also informed pt states she needs a new walker. RN SCOTTY to room. Discussed therapy's recommendations and WW. Pt states the walker she currently has does not fold and that she paid for it [id number]. Discussed local [employer] companies and she chose [facility]. Script obtained for daniel walker for pt and sent to [facility] via [employer]. Call to [email or web address] who states he will deliver it to pt's room today. Pt made aware. Pt states would like to do OP PT and OT @ [facility], stating she has went there in the past. Script obtained for OP PT/vestibular therapy and OT and provided to pt. She states wants to schedule it on her own and declines offer to schedule it by TINO FAJARDO. Pt states she lives w/her and denies having any further discharge planning needs or concerns. Sadia STRICKLAND RN, CM
--- NOTE | 2022-11-23 15:23 | PHA.DC.MC.R ---
Pharmacy [facility] has performed discharge medication reconciliation and counseling for this patient. The patient's discharge medication list was reviewed for discrepancies and discrepancies were resolved. The patient was counseled on the following discharge medications and changes in medications for homegoing were reviewed. The Reason for Use, instructions for use, and potential side effects were reviewed for all new medications. The patient's questions regarding all of their medications were answered. 1. Ondansetron 4 mg PO Q4H PRN nausea/vomting 2. Diazepam 2 mg PO daily PRN Dizziness/Vertigo The patient was able to verbally demonstrate an understanding of their discharge medications. The patient was counselled on her medications by pharmacy services director Leisa. Medications at Discharge Home Medications nitroglycerin 0.4 mg sublingual tablet 0.4 mg sublingual Q5M PRN Cardiac/Chest Pain #1 BOTTLE 12/05/20 atorvastatin 40 mg tablet 40 mg PO QHS Cholestrol #90 tabs 01/16/22 cholecalciferol (vitamin D3) 25 mcg (1,000 unit) tablet 25 mcg PO DAILY SUPPLEMENT 02/28/22 apixaban 5 mg tablet (Eliquis) 5 mg PO BID BLOOD THINNER #180 tabs 03/20/22 losartan 50 mg tablet 50 mg PO DAILY BLOO PESSURE #90 tabs 06/06/22 potassium chloride 10 mEq tablet,extended release 10 meq PO DAILY SUPPLEMENT 07/06/22 metoprolol succinate 25 mg tablet,extended release 24 hr 25 mg PO QHS BLOOD PRESSURE #180 tabs 08/14/22 isosorbide mononitrate 60 mg tablet,extended release 24 hr 60 mg PO DAILY HEART #90 tabs 08/21/22 sucralfate 1 gram tablet 1 g PO QAC ULCERS #90 tabs 10/26/22 vibegron 75 mg tablet (Gemtesa) 75 mg PO DAILY OVERACTIVE BLADDER 11/15/22 amlodipine 2.5 mg tablet 2.5 mg PO DAILY BLOOD PRESSURE 11/22/22 ascorbic acid (vitamin C) 500 mg tablet (Vitamin C) 500 mg PO QPM SUPPLEMENT 11/22/22 methenamine hippurate 1 gram tablet 1 g PO DAILY UTI PREVENTION 11/22/22 pantoprazole 40 mg tablet,delayed release (Protonix) 40 mg PO DAILY ACID REFLUX 11/22/22 diazepam 2 mg tablet (Valium) 2 mg PO UD PRN dizziness or vertigo #20 tabs 11/23/22 ondansetron HCl 4 mg tablet 4 mg PO Q6H PRN nausea and vomiting #15 tabs 11/23/22
== END 2022-11-23 14:53 | disposition home or self-care (01) ==
LOC: ED 16:45 → PCU 17:10
PROVIDERS: Admitting Provider Internal Medicine; Emergency Provider Emergency Medicine; PCP Family Medicine Geriatric Medicine; Visit Provider Internal Medicine
DX: R42 Dizziness and giddiness (principal); M06.9 Rheumatoid arthritis, unspecified; I48.20 Chronic atrial fibrillation, unspecified; Z68.41 Body mass index [BMI] 40.0-44.9, adult; I25.10 Atherosclerotic heart disease of native coronary artery without angina pectoris; Z79.01 Long term (current) use of anticoagulants; I10 Essential (primary) hypertension; E78.5 Hyperlipidemia, unspecified; R51.9 Headache, unspecified; M79.89 Other specified soft tissue disorders; K21.9 Gastro-esophageal reflux disease without esophagitis; Z79.899 Other long term (current) drug therapy; M19.90 Unspecified osteoarthritis, unspecified site; M79.7 Fibromyalgia; Z86.74 Personal history of sudden cardiac arrest; E66.9 Obesity, unspecified
CPT/HCPCS: 36415; 70450; 70551; 80048; 81001; 84443; 85025; 93005; 93970; 94668; 96361; 96372; 96374; 97162; 97166; 97802; 99221; 99285; J7120; A4216; G0378; J2405

== ENCOUNTER 2022-11-24 06:37 | Day surgery (SDC) | payer MEDICARE, SELFPAY ==
[2022-06-16 15:20] VITALS: BMI 37.3
[2022-11-23 07:58] VITALS: BMI 40.2
--- NOTE | 2022-11-24 09:36 | CL.D_ITS ---
Patient Name: JIE HENRIQUEZ Study Date: 11/24/2022 Performing: Darrell Jordan MD Ht: 60 inches 152.4 cm : 1945 Wt: 206 lbs 93.44 kg Age: 77 Gender: female BSA: 1.89 PROCEDURE(S) PERFORMED DC01-([id number])LHC/COR/LV CLINICAL PROFILE AND INDICATIONS Indications: Suspected CAD Heart Failure: None Stress/Imaging Stress/Image Study Performed: No CAD Presentations: Stable angina. CONCLUSIONS Distal left main and ostial LAD disease which does not appear to be very significant and in comparison to previous cardiac catheterization films appear to be unchanged. RECOMMENDATIONS Would recommend maximizing medical therapy. DESCRIPTION OF PROCEDURE The patient arrived to the procedure lab. The risks and benefits of the procedure as well as a full description of our services here and current unavailability of surgical backup were fully explained to the patient and/or their significant other prior to the catheterization. The Timeout was completed, verifying the correct patient and procedure. The patient's procedural site was prepped and draped in the usual fashion. Local anesthetic was given subcutaneously to right radial region with Lidocaine 2%. Using a modified Seldinger technique, arterial access was obtained via the right radial artery, a 6Fr sheath was inserted. Right Coronary Artery selective angiography was then performed in multiple views using a 5 Fr. 4.0 Turtlepoint catheter. Left Coronary Artery selective angiography was performed in multiple views using a 5 Fr. 4.0 Turtlepoint catheter. Left Ventriculography was performed in GARLAND projection using a 5 Fr. Pigtail catheter. LV to AO pullback pressures were then recorded.The arterial sheath was pulled and a TR Band was applied for hemostasis w/ 10ml air CORONARY ANGIOGRAPHY DOMINANCE: Right Dominant LEFT HEART ASSESSMENT Left Ventricular Ejection Fraction: by LV Gram 60 % Normal LV wall motion Normal Left Ventricular systolic function LEFT MAIN: Distal 40% stenosis bifurcating into LAD and circumflex artery LEFT ANTERIOR DESCENDING ARTERY: OSTIAL LAD: Ostial 50% LAD stenosis and then mild diffuse disease noted. CIRCUMFLEX ARTERY: Mild luminal irregularities less than 30% RIGHT CORONARY ARTERY: Ostial 20% stenosis and then mild diffuse disease present. COMPLICATIONS No Complications PROCEDURE MEDICATIONS Versed 1 mg IV Fentanyl 50 mcg IV Oxygen: 2 L/min via nasal cannula Aspirin (325mg) 1 Tabs PO @ 11/24/2022 07:16:22 Heparin given IA 11/24/2022 08:55:10 Verapamil 2.5mg, Ntg 100mcgs, 3000 units of Heparin given IA 11/24/2022 08:55:10 SUMMARY OF HEMODYNAMIC DATA Time AIR REST ECG 07:13:51 Art 157/70 (106) 08:49:49 AO 136/69 (98) SA 08:56:36 LV 147/5, 14 09:04:41 LV 148/7, 16 09:04:49 LV 128/3, 14 09:05:26 LV 132/5, 16 09:05:34 LVp 127/4, 16 09:05:39 AOp 151/73 (107) 09:05:46 Signed By Darrell Jordan MD On 11/24/2022 09:36:15 Darrell Jordan MD
== END 2022-11-24 10:40 | disposition home or self-care (01) ==
PROVIDERS: PCP Family Medicine Geriatric Medicine; Referring Provider Internal Medicine Cardiovascular Disease; Visit Provider Internal Medicine Cardiovascular Disease
DX: R07.9 Chest pain, unspecified (principal); I25.10 Atherosclerotic heart disease of native coronary artery without angina pectoris; I10 Essential (primary) hypertension; E66.09 Other obesity due to excess calories; Z68.39 Body mass index [BMI] 39.0-39.9, adult; E78.5 Hyperlipidemia, unspecified; Z82.49 Family history of ischemic heart disease and other diseases of the circulatory system; R06.02 Shortness of breath
CPT/HCPCS: 93458; 99152; 99153; J7040; C1769; C1894; Q9967

== ENCOUNTER → 2022-12-20 | Outpatient (CLI) | payer MEDICARE, SELFPAY ==
[2022-06-16 15:20] VITALS: BMI 37.3
[2022-12-20 15:47] LABS: Absolute Lymphocyte Count 1.74 X10^3/uL (0.83-4.51); Absolute Neutrophil Count 4.8 X10^3/uL (2.0-7.7); Basophil# 0.04 X10^3/uL; Basophil% 0.5 % (0-1); Eosinophil# 0.23 X10^3/uL; Eosinophils% 3.1 % (0-5); Hematocrit 36.2 % (37-47); Lymphocyte # 1.74 X10^3/ul (0.83-4.51); Lymphocyte % 23.8 % (19-41); Mean Corp Hgb Conc 30.4 g/dL (32-36); Mean Corpuscular Hgb 25.4 pg (27.0-32.0); Mean Corpuscular Volume 83.6 fL (81-99); Mean Platelet Vol. 10.4 fl (6.2-12.0); Monocyte% 6.8 % (0-10); NRBC Flagged by Analyzer 0 % (0-5); Neutrophil # 4.77 X10^3/uL (2.7-7.7); Neutrophil % 65.4 % (47-70); Platelet Count 285 K/mm3 (150-450); RBC Distribution Width CV 15.7 % (11.6-14.6); RBC Distribution Width SD 47.6 fl (35.1-43.9); Red Blood Count 4.33 M/mm3 (4.2-5.4); White Blood Count 7.3 K/mm3 (4.4-11.0)
[2022-12-20 16:04] LABS: Vitamin D,25 Hydroxy 41.6 ng/mL
[2022-12-20 16:11] LABS: ALB/GLOB Ratio 0.7 RATIO (0.9-2.4); AST(SGOT) 18 U/L (15-37); Alanine Aminotransfer ALT/SGPT 18 U/L (13-56); Albumin, Serum 3.2 g/dL (3.2-5.0); Alkaline Phosphatase 113 U/L (45-117); Anion Gap 5 (5-15); BUN 20 mg/dL (7-18); Calcium,Total 9.1 mg/dL (8.5-10.1); Chloride 108 mmol/L (98-107); Creatinine, Serum 1.05 mg/dL (0.55-1.02); EST Glomerular Filtration Rate 54 mL/min (>60); Est Glom Filt Rate - Afr Amer 66 mL/min (>60); Globulin 4.3 g/dL (2.2-4.2); Glucose 139 mg/dL (74-106); Potassium 4.3 mmol/L (3.5-5.1); Protein, Total 7.5 g/dL (6.4-8.2); Sodium Level 140 mmol/L (136-145); Thyroid Stim Hormone (TSH) 0.86 uIU/mL (0.358-3.74)
== END | disposition home or self-care (01) ==
LOC: POLAB3 14:56
PROVIDERS: PCP Family Medicine Geriatric Medicine; Visit Provider Family Medicine Geriatric Medicine
DX: I10 Essential (primary) hypertension (principal); E55.9 Vitamin D deficiency, unspecified
CPT/HCPCS: 36415; 80053; 82306; 84443; 85025

== ENCOUNTER → 2022-12-29 | Day surgery (SDC) | payer MEDICARE, SELFPAY ==
[2022-06-16 15:20] VITALS: BMI 37.3
[2022-12-29 11:07] VITALS: BP 133/80; PULSE 76; RESP 17; TEMP 36.5; O2SAT 98
[2022-12-29] MEDS: Lidocaine Jelly 2% 20 ML Syringe (URO-JET) 1 APPLIC (11:07)
== END | disposition home or self-care (01) ==
LOC: EN 10:48
PROVIDERS: PCP Family Medicine Geriatric Medicine; Referring Provider Internal Medicine Gastroenterology; Visit Provider Internal Medicine Gastroenterology
PROC: F00ZJWZ Instrumental Swallowing and Oral Function Assessment using Swallowing Equipment (ICD-10-PCS; CPT 43235; principal; 2022-12-29 10:55)
DX: R13.10 Dysphagia, unspecified (principal)
CPT/HCPCS: 91010

== ENCOUNTER → 2023-01-05 | Outpatient (CLI) | payer MEDICARE, SELFPAY ==
[2022-06-16 15:20] VITALS: BMI 37.3
[2023-01-05 09:47] LABS: AST(SGOT) 21 U/L (15-37); Alanine Aminotransfer ALT/SGPT 18 U/L (13-56); CPK Total, Creatine Kinase 99 U/L (26-192); Cholesterol 95 mg/dL (200); High Density Lipoprotein 40 mg/dL; Triglycerides 104 mg/dL; Very Low Density Lipoprotein 21 mg/dL (5-40)
== END | disposition home or self-care (01) ==
LOC: LAB 07:54
PROVIDERS: PCP Family Medicine Geriatric Medicine; Referring Provider Internal Medicine Cardiovascular Disease; Visit Provider Internal Medicine Cardiovascular Disease
DX: E78.5 Hyperlipidemia, unspecified (principal); I48.0 Paroxysmal atrial fibrillation; I10 Essential (primary) hypertension; E66.09 Other obesity due to excess calories; Z68.39 Body mass index [BMI] 39.0-39.9, adult; I25.10 Atherosclerotic heart disease of native coronary artery without angina pectoris; R07.9 Chest pain, unspecified
CPT/HCPCS: 36415; 80061; 82550; 84450; 84460

== ENCOUNTER 2023-02-06 13:50 | Day surgery (SDC) | payer MEDICARE, SELFPAY ==
[2022-06-16 15:20] VITALS: BMI 37.3
--- NOTE | 2023-02-06 14:11 | PCM.HP.BLA ---
History and Physical Date of Admission: 02/06/23 77 F who presents to the office today for *[facility] hospitalization 03.24.22-03.25.22 for management of chest pain, A.Fib, HTN, GERD and anemia. GI consulted 03.25.22 for dysphagia with EGD performed same day. Discharged with PPI 40mg BID. ? CTA Chest 03.24.22 mild scarring of lung bases. ? EGD 03.25.22 LA Grade C erosive esophagitis, heater probe; moderate Schatzki ring, Savary 51F; small hiatal hernia; gastric mucosal atrophy. OV 5.25.23 Continues to have difficulty with large bites of food or meats sticking when eating; this is occurring on a regular basis. Continues with reflux difficulty on a daily basis which she feels is terrible and will wake her during the night. ? Upper GI SBFT .. small sliding hiatal hernia; GERD. ? Gastric emptying study 10.10.22 47.03 minutes Contact 6..23 continues to have bad reflux and would like to increase PPI and start sucralfate. OV 8.31.23 continues to have foods stick in her mid/lower chest which occurs primarily with dry foods. Denies anxiety/depression and life stressors. ROS Const Constitutional: No anorexia, fatigue, fever(s), weight change or sleep problems Eyes Eyes: No change in vision ENT ENT: No abnormal hearing, difficulty swallowing, mouth lesions, tongue swelling or throat swelling Resp Respiratory: No cough or shortness of breath Cardio Cardiology: No chest pain at rest, chest pain with exertion, shortness of breath or dyspnea on exertion Gastro GI: No difficulty swallowing Genitourinary-Female: No difficulty urinating or burning urination Musc Musculoskeletal: No joint pain, joint swelling, muscle weakness or decreased muscle mass Skin Skin: No hair loss in leg, yellowing of the eye, itchy eyes, rash, skin ulcer or skin swelling Neuro Neurology: No abnormal hearing, abnormal movements, confusion, unsteady gait/balance or memory loss Psych Psychiatric: No anxiety, No confusion and No memory loss Endo Endocrine: No fatigue or weight change Aller/Imm Allergy/Immunologic: No itchy eyes, throat swelling or tongue swelling Tad/Lymp Hematologic/Lymphatic: No easy bleeding, easy bruising or enlarged lymph nodes Exam Const General: cooperative and comfortable Nutritional Appearance: average body habitus and well nourished [facility] Head: normal to inspection Ears: hearing grossly normal bilaterally Nose: external nose normal Face and sinus: normal facial exam Mouth: oral mucosae normal Throat: posterior oropharynx normal Eyes General: appearance normal, both eyes and all related structures Neck Neck: normal visual inspection Chest Chest palpation & inspection: normal inspection of the chest and normal palpation of entire chest wall Resp Effort & Inspection: normal respiratory effort Auscultation: Bilateral: Clear to Auscultation Cardio Palpation: normal PMI Rate: regular rate Rhythm: regular rhythm GI Inspection: normal to inspection Auscultation: normal bowel sounds Percussion: normal to percussion Palpation: no hepatosplenomegaly Skin General: no rashes or lesions noted Neuro General: patient alert Extrem General: normal to inspection Psych Affect: normal affect Quality Reporting Tobacco Screening ([facility] 138) Smoking Status: Never smoker Assessment and Plan Assessment and Plan (1) Dysphagia: Status: Chronic Qualifiers: Dysphagia type: esophageal phase Qualified Code(s): R13.19 - Other dysphagia Plan: . This dysphagia likely secondary to erosive esophagitis in the setting of esophageal motility disorder. We will repeat her upper endoscopy in the future because she is still having symptoms of esophageal dysphagia. 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 She is on pantoprazole once a day. We will increase it to twice a day her kidney function is normal. We will do this for approximately 8 weeks and then titrate down to 40 mg once a day Orders: Orders Esophageal Manometry 12/29/22 K21.00 - Gastro-esophageal reflux disease with esophagitis, without bleeding, R13.10 - Dysphagia, unspecified EGD 02/06/23 K21.00 - Gastro-esophageal reflux disease with esophagitis, without bleeding, R13.10 - Dysphagia, unspecified I have examined the patient and the H&P has been reviewed. There are no clinical changes since date of exam.
[2023-02-06 14:18] VITALS: BP 124/64; PULSE 76; RESP 16; TEMP 36.6; O2SAT 98; BMI 40.1
[2023-02-06] MEDS: Lactated Ringers 1,000 ML 15 ML IV (14:21)
[2023-02-06] MEDS: Botulinum Toxin A 100 Units Vial IJ (15:12)
[2023-02-06] MEDS: 0.9% Saline Lock 10 ML Syringe IV (15:12)
[2023-02-06] MEDS: 0.9% Normal Saline (Pres. free 10 ML Vial (15:12)
[2023-02-06 15:19] VITALS: BP 124/64; BP 133/75; PULSE 80; RESP 16; TEMP 36.9; O2SAT 92
[2023-02-06 15:24] VITALS: BP 124/64; BP 129/67; PULSE 80; RESP 16; O2SAT 92
--- NOTE | 2023-02-06 15:24 | OP.EGD_ITS ---
Patient Name: Glory Moon Procedure Date: 02/06/2023 3:00 PM Date of : 1945 Age: 77 Procedure: Upper GI endoscopy Indications: Dysphagia Providers: Scotty Greenfield DO Referring MD: Scotty Greenfield DO Medicines: Monitored Anesthesia Care Patient Profile: This is a 77 year old female. Refer to note in patient chart for documentation of history and physical. Patient has symptoms of dysphagia with solids. Complications: No immediate complications. Procedure: Pre-Anesthesia Assessment: - Prior to the procedure, a History and Physical was performed, and patient medications and allergies were reviewed. The patient is competent. The risks and benefits of the procedure and the sedation options and risks were discussed with the patient. All questions were answered and informed consent was obtained. Patient identification and proposed procedure were verified by the physician in the pre-procedure area. Mental Status Examination: alert and oriented. Airway Examination: normal oropharyngeal airway and neck mobility. Respiratory Examination: clear to auscultation. CV Examination: normal. Prophylactic Antibiotics: The patient does not require prophylactic antibiotics. Prior Anticoagulants: The patient has taken no anticoagulant or antiplatelet agents. ASA Grade Assessment: III - A patient with severe systemic disease. After reviewing the risks and benefits, the patient was deemed in satisfactory condition to undergo the procedure. The anesthesia plan was to use monitored anesthesia care (MAC). Immediately prior to administration of medications, the patient was re-assessed for adequacy to receive sedatives. The heart rate, respiratory rate, oxygen saturations, blood pressure, adequacy of pulmonary ventilation, and response to care were monitored throughout the procedure. The physical status of the patient was re-assessed after the procedure. After obtaining informed consent, the endoscope was passed under direct vision. Throughout the procedure, the patient's blood pressure, pulse, and oxygen saturations were monitored continuously. The gastroscope was introduced through the mouth, and advanced to the second part of duodenum. The upper GI endoscopy was accomplished without difficulty. The patient tolerated the procedure well. Scope In: 3:09:52 PM Scope Out: 3:15:08 PM Total Procedure Duration Time 0 hours 5 minutes 16 seconds Findings: Abnormal motility was noted in the esophagus. The cricopharyngeus was normal. There is a decrease in motility of the esophageal body. The distal esophagus/lower esophageal sphincter is spastic, but gives up passage to the endoscope. Tertiary peristaltic waves are noted. Area was successfully injected with 100 units botulinum toxin. A small hiatal hernia was present. The exam of the stomach was otherwise normal. The first portion of the duodenum was normal. Impression: - Abnormal esophageal motility, suspicious for achalasia. Injected with botulinum toxin. - Small hiatal hernia. - Normal first portion of the duodenum. - No specimens collected. Recommendation: - Discharge patient to home. - Resume previous diet. - Continue present medications. Procedure Code(s): --- Professional --- 76874, Esophagogastroduodenoscopy, flexible, transoral; with directed submucosal injection(s), any substance CPT copyright 2021 [employer]. All rights reserved. The codes documented in this report are preliminary and upon diesel dragline operator review may be revised to meet current compliance requirements. Scotty Greenfield DO 02/06/2023 3:23:43 PM This report has been signed electronically. Number of Addenda: 0 Note Initiated On: 02/06/2023 3:00 PM
--- NOTE | 2023-02-06 15:24 | OP.CCLET_ITS ---
02/06/2023 Alexi Morin MD [address] [place] [address] Re : Upper GI endoscopy procedure for Glory Sarai Dear Dr. Morin This procedure was performed on Monday, February 06, 2023. My impressions and recommendations are as follows: Impressions : - Abnormal esophageal motility, suspicious for achalasia. Injected with botulinum toxin. - Small hiatal hernia. - Normal first portion of the duodenum. - No specimens collected. Recommendations : - Discharge patient to home. - Resume previous diet. - Continue present medications. My findings are described in the full procedure note, which is enclosed. If I can be of further assistance, please feel free to contact me at . Sincerely, Scotty Greenfield, 02/06/2023 3:23:43 PM This report has been signed electronically.
[2023-02-06 15:29] VITALS: BP 124/64; BP 133/75; PULSE 76; RESP 16; O2SAT 98
[2023-02-06 15:34] VITALS: BP 124/64; BP 140/65; PULSE 76; RESP 18; TEMP 37.2; O2SAT 96
[2023-02-06 15:40] VITALS: BP 124/64
== END 2023-02-06 16:04 | disposition home or self-care (01) ==
LOC: EN 13:52 → AC 13:53
PROVIDERS: PCP Family Medicine Geriatric Medicine; Referring Provider Family Medicine Geriatric Medicine; Visit Provider Internal Medicine Gastroenterology
PROC: 0DJ08ZZ Inspection of Upper Intestinal Tract, Via Natural or Artificial Opening Endoscopic (ICD-10-PCS; CPT 43235; principal; 2023-02-06 14:55)
DX: R13.19 Other dysphagia (principal); K44.9 Diaphragmatic hernia without obstruction or gangrene; K21.00 Gastro-esophageal reflux disease with esophagitis, without bleeding; K22.89 Other specified disease of esophagus; K22.4 Dyskinesia of esophagus
CPT/HCPCS: 43236; J7120; A4216; J0585; J2405; J3490

== ENCOUNTER 2023-02-12 10:00 | Outpatient (RCR) | payer MEDICARE, SELFPAY ==
[2022-06-16 15:20] VITALS: BMI 37.3
--- NOTE | 2023-01-25 13:18 | HP.PTEVAL ---
Patient's Visit Information Visit Information Visit Information: JIE HENRIQUEZ is a 77 year old F referred to Physical Therapy by Dr. Angela Lewis MD with a diagnosis of URGE INCONTINENCE. Date of Evaluation: 01/25/23 Physical Therapist: Patricia Gimenez PT, Cert MDT Visit Plan Frequency: 1x/Week Duration: 2-4 Months Plan: *CHECK AUTH* *LATEX ALLERGY* PF THERAPY FOR STRENGTHENING, LENGTHENING/RELAXATION AND ENDURANCE TRAINING. URINARY URGE AND FREQUENCY EDUCATION. HEALTHY BLADDER HABIT EDUCATION. TRAINING IN COORDINATION OF PELVIC FLOOR MUSCULATURE WITH HIP AND CORE (TRANSVERSE ABDOMINUS) MUSCULATURE. CORE STRENGTHENING. INDRA LE ROM, STRETCHING AND STRENGTHENING. TRAINING IN ABDOMINAL CAVITY PRESSURE MGMT WITH ADL'S. Subjective Subjective: Work/Leisure: RETIRED Present symptoms: DIFFICULTY MAKING IT TO THE BATHROOM WHEN GETS THE URGE TO URINATE AND LACK OF BLADDER CONTROL AT NIGHT. Present since: ABOUT 2 YEARS. Pain Scale: N/A. PATIENT DENIES PAIN. Is it getting better, worse or staying the same: GETTING WORSE. Commenced as a result of: HEART ATTACK. Symptoms at onset: URGENCY Worse: UNKNOWN TO PATIENT. NOT HAVING UI WALKING BUT DOES IN SITTING. Better: NOTHING Disturbed sleep: GETTING UP TO URINATE 2 TIMES AT NIGHT BUT DOES NOT MAKE IT IN TIME - I DON'T ALWAYS FEEL IT - IT JUST COMES. Previous history/Previous treatment: PATIENT REPORTS SHE HAS TRIED ABOUT 6 DI[address]ENT MEDICATIONS BETWEEN DR. GALINDO AND DR. LEWIS OVER THE LAST TWO YEARS AND NOTHING HAS HELPED. HYSTERECTOMY APPROX AGE 42. Coughing/sneezing/straining: POSITIVE FOR UI. Gait: PATIENT REPORTS SHE USUALLY WALKS WITH A CANE DUE TO VERTIGO. NOT HAVING UI WALKING. PADS: WEARING 6 HEAVY PADS A DAY. How long can you delay the need to urinate: 0-2 MINUTES. Prolapse (Falling out feeling): NO Frequency of Urination: ABOUT EVERY HOUR. Ability to stop urine flow: NO Ability to initiate urine stream: YES Dyspareunia: N/A Bowel Incontinence: NO Unexplained weight loss: NO Imaging: CYSTOSCOPY - NORMAL PER PATIENT REPORT. PMH/Recent major surgery: SEE [facility] EMR FOR EXTENSIVE PMH. OTHER: PATIENT REPORTS SHE HAS A UTI AND IS ON ANTIBIOTIC. Objective Objective: Sitting/Standing Posture: POOR. INCREASED KYPHOSIS. SCOLIOSIS. Active Correction of posture: INCREASES C/O BACK PAIN. Other Observations: THIS PATIENT AMBULATES INDEP'LY INTO PT WITH QUAD CANE WITH SLOW STEADY GAIT. SHE IS NOT VERY DEPENDENT ON THE CANE BUT STATES SHE LIKES TO HAVE IT WITH HER IN CASE SHE GETS DIZZY. Sensory deficit: INDRA LE LIGHT TOUGH SENSATION IS GROSSLY INTACT AND SYMMETRICAL EXCEPT THE LOWER R LEG WHERE PATIENT FEELS A LOT OF TINGLING FROM OLD INJURY AND SURGERY. ROM deficit: TIGHT INDRA HIP IR/ER ESPECIALLY L HIP IR. PATIENT ALSO HAS INDRA HIP FLEXOR, HS AND GASTROC-SOLEUS COMPLEX TIGHTNESS. Motor deficit: R LE: HIP 4-/5, KNEE 4-/5, ANKLE 3+/5. L LE: HIP 4/5, KNEE 4/5, ANKLE 4/5. OTHER: INDRA LE EDEMA Lumbar mvmt loss: flex - MIN ext - KADE R SG - MOD L SG - MOD PATIENT C/O INCREASED R LBP WITH R SG TESTING. Core strength: POOR Palpation: PATIENT C/O TENDERNESS WTIH PALPATION OF R PARASPINAL AND RIB AREA (PATIENT REPORTS IT HAS BEEN LIKE THIS FOR A LONG TIME) BUT NO C/O TENDERNESS WITH PALPATION IN THE PELVIS OR HIPS. FUNCTIONAL SCREEN: Incontinence Impact Questionnaire Score: 13 Urogenital Distress Inventory Score: 15 Goals Goal 1:: DECREASE URINARY LEAKAGE EPISODES BY 25% EVIDENCED BY DECREASED UI PAD USE. Goal Time Frame: 6-8 Weeks Goal 2:: PATIENT WILL SUCCESSFULLY DELAY VOIDING FOR 5 MINUTES TO SUCCESSFULLY MAKE IT TO THE BATHROOM MORE OFTEN. Goal Time Frame: 4-6 Weeks Goal 3:: PATIENT WILL DEMONSTRATE/COMMUNICATE 10 CONSISTENT AND CONSECUTIVE 5 SECOND PELVIC FLOOR MUSCLE CONTRACTIONS TO DEMONSTRATE IMPROVED PELVIC FLOOR ENDURANCE. Goal Time Frame: 6-8 Weeks Goal 4:: DEVELOP HEALTHY FLUID INTAKE HABITS WITH FLUID INTAKE OF ? BODY WEIGHT IN OUNCES PER DAY AND 2/3 BEING WATER. Goal Time Frame: 4-6 Weeks Goal 5:: NORMALIZE VOIDING FREQUENCEY TO EVERY 1.5 TO 2 HOURS TO IMPROVE ADL TOLERANCE. Goal Time Frame: 6-8 Weeks Goal 6:: PATIENT WILL BE INDEP WITH A HEP/HOME INSTRUCTIONS FOR CONTINUED IMPROVEMENT ONCE FORMAL PHYSICAL THERAPY CONCLUDES. Goal Time Frame: 6-8 Weeks Anticipated Interventions Patient/Client Instruction: Educate patient on: Condition, Plan of Care and Risk Factors For the Purpose of:: To improve self management Therapeutic Exercise to Include: Strength training, Coordination, Flexibilty training, Neuromotor development and Relaxation training For the Purpose of:: To increase ROM, To improve muscle performance and motor function, To increase tolerance to activity/condition/position and To improve ability of physical actions for home/community/work/leisure Text: Thank you for the opportunity to evaluate your patient. For Medicare and Medicare HMO plans, please review the plan of care and approve it. It will need to be FAXED BACK to us at [phone] for Medicare purposes. For Medicare only, by signing this I certify the plan of care. Please let me know if there are questions or concerns regarding this plan of care. Physician Signature: Date:
== END 2023-02-12 19:00 | disposition home or self-care (01) ==
LOC: PT 10:00
PROVIDERS: PCP Family Medicine Geriatric Medicine; Visit Provider Urology
DX: N39.41 Urge incontinence (principal)
CPT/HCPCS: 97162; 97530

== ENCOUNTER → 2023-04-05 | Outpatient (CLI) | payer MEDICARE, SELFPAY ==
[2022-06-16 15:20] VITALS: BMI 37.3
[2023-04-05 12:22] LABS: Hematocrit 32.6 % (37-47); Hemoglobin 9.8 g/dL (12.0-15.0)
== END | disposition home or self-care (01) ==
LOC: LAB 11:22
PROVIDERS: PCP Family Medicine Geriatric Medicine; Referring Provider Physician Assistant Medical; Visit Provider Physician Assistant Medical
DX: I48.0 Paroxysmal atrial fibrillation (principal)
CPT/HCPCS: 36415; 85014; 85018

== ENCOUNTER 2023-04-22 16:24 | Emergency (ER) | payer MEDICARE, SELFPAY ==
[2022-06-16 15:20] VITALS: BMI 37.3
[2023-04-22 16:25] VITALS: BP 146/93; PULSE 84; RESP 18; TEMP 36.2; O2SAT 99; BMI 39.0
[2023-04-22] MEDS: Oxymetazoline 0.05% 1 SPRAY SPRAY.BTL 2 SPRAY NASAL (16:50)
--- NOTE | 2023-04-22 16:57 | EDS_ITS ---
HPI History of Present Illness Chief Complaint: Nosebleed Informant: patient Narrative Narrative: 77-year-old female on Eliquis for atrial fibrillation presenting with a nosebleed. The patient states that just prior to arrival she was choking on some food when she began to have bleeding coming from both naris. It was not stopping so she came to the hospital. She states that her A-fib has been acting up over the past several days. With this she states that she has been feeling that it is beating faster. She states that since she was choking it seems to be more constant now. Patient states that she has had 1 prior nosebleed believes that she had some cautery here at the hospital but is unsure of exactly what happened. [facility] Medical History Ambulates with cane Arthritis Atherosclerosis of coronary artery of [place] heart without angina pectoris Atrial fibrillation Back pain Bilateral edema of lower extremity Bone fracture Breast lump in female Cardiac arrest Cardiology follow-up encounter Cataracts, bilateral Chronic anticoagulation Chronic venous insufficiency of lower extremity Contusion of right lower leg, sequela Coronary artery disease Depression Esophageal stenosis Fibromyalgia Gastroesophageal reflux disease Generalized osteoarthritis GERD (gastroesophageal reflux disease) Hemorrhoids High cholesterol History of back problems History of diverticulitis History of hiatal hernia History of Holter monitoring History of left heart catheterization (LHC) (~07/22/21) History of stress test HTN (hypertension) Hyperlipidemia Hypokalemia Incontinence Iron deficiency anemia Left breast lump Leg cramps Mass of soft tissue Myocardial infarct Neuropathy of right lower extremity Non-smoker Obesity Osteoarthritis of knee Rheumatoid arthritis Shortness of breath Shortness of breath on exertion Shoulder pain Stable angina UTI (urinary tract infection) Vitamin deficiency Wears dentures Wears glasses Home Medications nitroglycerin 0.4 mg sublingual tablet 0.4 mg sublingual Q5M PRN Cardiac/Chest Pain #1 BOTTLE 12/05/20 [Rx Last Taken 11/08/22] atorvastatin 40 mg tablet 40 mg PO QHS Cholestrol #90 tabs 01/16/22 [Rx Last Taken 11/21/22] cholecalciferol (vitamin D3) 25 mcg (1,000 unit) tablet 25 mcg PO DAILY SUPPLEMENT 02/28/22 [History Last Taken 11/22/22] apixaban 5 mg tablet (Eliquis) 5 mg PO BID BLOOD THINNER #180 tabs 03/20/22 [Rx Last Taken 02/03/23] losartan 50 mg tablet 50 mg PO DAILY BLOO PESSURE #90 tabs 06/06/22 [Rx Last Taken 02/06/23] potassium chloride 10 mEq tablet,extended release 10 meq PO DAILY SUPPLEMENT 07/06/22 [History Last Taken 11/22/22] metoprolol succinate 25 mg tablet,extended release 24 hr 25 mg PO QHS BLOOD PRESSURE #180 tabs 08/14/22 [Rx Last Taken 11/21/22] sucralfate 1 gram tablet 1 g PO QAC ULCERS #90 tabs 10/26/22 [Rx Last Taken 11/22/22] methenamine hippurate 1 gram tablet 1 g PO DAILY UTI PREVENTION 11/22/22 [History Last Taken 11/22/22] pantoprazole 40 mg tablet,delayed release (Protonix) 40 mg PO DAILY ACID REFLUX 11/22/22 [History Last Taken 11/22/22] diazepam 2 mg tablet (Valium) 2 mg PO UD PRN dizziness or vertigo #20 tabs 11/23/22 [Rx Last Taken Unknown] ondansetron HCl 4 mg tablet 4 mg PO Q6H PRN nausea and vomiting #15 tabs 11/23/22 [Rx Last Taken Unknown] isosorbide mononitrate 60 mg tablet,extended release 24 hr 60 mg PO DAILY #90 tabs 01/04/23 [Rx Last Taken 02/06/23] lubiprostone 8 mcg capsule (Amitiza) 8 mcg PO BID 30 days #60 caps 02/19/23 [Rx Last Taken Unknown] pantoprazole 40 mg tablet,delayed release 40 mg PO DAILY 30 days #30 tabs 02/19/23 [Rx Last Taken Unknown] Allergy/AdvReac Type Severity Reaction Status Date / Time bee pollen Allergy Anaphylaxis Verified 04/22/23 16:25 latex Allergy Swelling Verified 04/22/23 16:25 morphine Allergy Other Verified 04/22/23 16:25 Penicillins Allergy Hives Verified 04/22/23 16:25 ranolazine AdvReac Intermediate Dizzy and Verified 04/22/23 16:25 Lightheaded hydrocodone bitartrate AdvReac Abd Verified 04/22/23 16:25 [From Vicodin] cramps/diarrhea Family History Father Diabetes Heart disease Hypertension CVA (cerebral vascular accident) Parkinson disease Mother Breast cancer Hypertension Grandmother Cancer pancreatic cancer Ovarian cancer Son Anesthesia complication Brother Asthma Arthritis Diabetes Respiratory disease Grandfather Lung cancer CVA (cerebral vascular accident) Surgical History Hematoma history bilateral breast biopsies History of bilateral knee replacement History of cardiac catheterization History of cataract surgery History of coronary artery stent placement (11/16/20) History of hysterectomy History of laparoscopic cholecystectomy History of left breast biopsy (~11/2017) History of repair of right rotator cuff History of tonsillectomy and adenoidectomy Hx of appendectomy Social History household members: spouse Smoking Status: Never smoker alcohol intake: never substance use type: does not use caffeine: Yes Type: carbonated beverages Number of servings: 1 and coffee Number of servings: 1 additional social history: DOES NOT USE IBUPROFEN ROS ROS ED Constitutional Constitutional ED: Denies chills, fever(s) or weight loss Eyes Eyes: Denies change in vision or diplopia ENT ENT ED: Reports other Details: Epistaxis ; Denies ear pain, rhinorrhea or sore throat Cardiovascular Cardiovascular: Reports palpitations and racing heartbeat; Denies chest pain or orthopnea Respiratory/Chest Respiratory/Chest: Denies cough, dyspnea or orthopnea Gastrointestinal Gastrointestinal: Denies abdominal pain, diarrhea, nausea or vomiting Genitourinary Genitourinary ED: Denies dysuria, hematuria or urinary frequency Musculoskeletal Musculoskeletal: Denies arthralgias or myalgias Integumentary Denies abscess or rash Neurologic Neurologic: Denies headache(s) or weakness Psychiatric Psychiatric: Denies anxiety, depression, suicidal ideation or suicidal thoughts Endocrine Endocrinology: Denies polydipsia, polyphagia or polyuria Allergic/Immunologic Allergic/Immunologic ED: Denies mouth swelling, tongue swelling or urticaria EXAM Physical Exam Const Vital Signs: 04/22/23 16:25 04/22/23 17:28 04/22/23 19:38 Temperature 97.2 F L Temperature Source Temporal Pulse Rate 84 135 H 85 Respiratory Rate 18 18 Blood Pressure 146/93 H 156/93 H 142/74 H Blood Pressure Mean 110 114 96 Pulse Ox 99 94 Oxygen Delivery Method Room Air Positive well nourished, well developed and obese General Appearance ED: well developed Nutritional Appearance: obese HEENT Reports normocephalic, head/scalp atraumatic and moist mucous membranes HEENT Narrative: I do not see any active bleeding from the nares or in the oropharynx. No significant clots noted with nose blowing. Eyes PERRL and EOMs intact bilaterally Neck no lymphadenopathy, supple and no JVD Resp normal respiratory effort and clear to auscultation bilaterally Cardio no murmurs Rate: tachycardic Rhythm: abnormal rhythm irregularly irregular GI normal to inspection, nondistended, normoactive bowel sounds and non-tender Palpation: soft Back/Spine no CVA tenderness and normal ROM Extremity normal to inspection General Extremety ED: Negative for edema General Extremity: Negative for edema Neuro oriented x3 and CN's II-XII intact bilaterally Sensorium / Orientation: alert Motor Exam: strength 5/5 throughout Psych mental status grossly normal Mood & Affect: Negative for depressed or tearful Skin no rashes or lesions noted and no wounds MDM MDM MDM Narrative Medical decision making narrative: After much instilled into each nose and the patient was observed. No further bleeding was noted. Basic blood work was obtained shows troponin of 8. Potassium 3.7 sodium 140. Hemoglobin 10.8 white count is 7 platelet count of 338. EKG shows A-fib with RVR. Patient was observed and given metoprolol IV. This resulted in a slowing of the heart rate and eventual conversion to a sinus rhythm where she has remained. She has no further bleeding. She is going to need to follow-up with cardiology. If she rebleeds plan and knows she understands to return to the emergency department. Continue home medications. Follow-up with ENT as needed History & Record Review Discussion w/independent historian: Patient and Significant other Additional record(s) reviewed:: Prior ED visit and Prior labs Lab Data Attestation: I reviewed the patient's lab results. Labs: Laboratory Results - last 24 hr 04/22/23 17:05 WBC 7.0 RBC 4.44 Hgb 10.8 L Hct 34.7 L MCV 78.2 L MCH 24.3 L MCHC 31.1 L RDW Std Deviation 43.8 RDW Coeff of April 15.2 H Plt Count 338 MPV 9.7 Immature Gran % (Auto) 0.400 Neut % (Auto) 73.4 H Lymph % (Auto) 15.2 L [place] % (Auto) 9.2 Eos % (Auto) 1.4 Baso % (Auto) 0.4 Absolute Neuts (auto) 5.2 Absolute Lymphs (auto) 1.07 Nucleated RBC % 0 Sodium 140 Potassium 3.7 Chloride 108 H Carbon Dioxide 27.0 Anion Gap 5 BUN 15 Creatinine 1.11 H Estim Creat Clear Calc 31.45 Est GFR (MDRD) Af Amer 62 Est GFR (MDRD) Non-Af 51 L BUN/Creatinine Ratio 13.5 Glucose 116 H Calcium 10.0 Troponin I High Sens 8 EKG Initial EKG: Attestation: I personally reviewed and interpreted this EKG as follows: Comments: Atrial fibrillation with rapid ventricular response. Follow-up EKG: Attestation: I personally reviewed and interpreted this EKG as follows: Comments: Sinus rhythm with ventricular rate of 83 bpm Discharge Plan Triage Chief Complaint: Nosebleed ED Provider: Jung Fontaine Dx/Rx/DC Orders Clinical Impression: Anticoagulated, Epistaxis, Atrial fibrillation with RVR Instructions: AFib, ED Epistaxis (Adult) Prescriptions: No Action potassium chloride 10 mEq tablet extended release 10 meq PO DAILY isosorbide mononitrate 60 mg tablet extended release 24 hr 60 mg PO DAILY Qty: 90 3RF cholecalciferol (vitamin D3) 25 mcg (1,000 unit) tablet 25 mcg PO DAILY nitroglycerin 0.4 mg Tablet, Sublingual 0.4 mg sublingual Q5M PRN (Reason: Cardiac/Chest Pain) Qty: 1 0RF methenamine hippurate 1 gram tablet 1 g PO DAILY pantoprazole [Protonix] 40 mg tablet,delayed release (DR/EC) 40 mg PO DAILY diazepam [Valium] 2 mg tablet 2 mg PO UD PRN (Reason: dizziness or vertigo) Qty: 20 0RF Rx Instructions: 1 3-4 times a day for dizziness ondansetron HCl 4 mg tablet 4 mg PO Q6H PRN (Reason: nausea and vomiting) Qty: 15 0RF atorvastatin 40 mg tablet 40 mg PO QHS Qty: 90 3RF Eliquis 5 mg tablet 5 mg PO BID Qty: 180 4RF Hold Instructions: May resume from tomorrow a.m. losartan 50 mg tablet 50 mg PO DAILY Qty: 90 3RF metoprolol succinate 25 mg tablet extended release 24 hr 25 mg PO QHS Qty: 180 4RF sucralfate 1 gram tablet 1 g PO QAC Qty: 90 0RF pantoprazole 40 mg tablet,delayed release (DR/EC) 40 mg PO DAILY 30 Days Qty: 30 5RF lubiprostone [Amitiza] 8 mcg capsule 8 mcg PO BID 30 Days Qty: 60 2RF Primary Care Provider: Alexi Morin Chi Referrals: Francisco Ayala MD [Med Staff - Active Staff] - As Needed (for ENT/ nosebleed) Alexi Morin Chi, MD [Primary Care Provider] - Activity Restrictions/Additional Instructions: Please follow-up with your collection card clerk. Disposition Disposition: Home, Self Care Discharge Date/Time: 04/22/23 19:40
[2023-04-22 17:12] LABS: Absolute Lymphocyte Count 1.07 X10^3/uL (0.83-4.51); Absolute Neutrophil Count 5.2 X10^3/uL (2.0-7.7); Basophil# 0.03 X10^3/uL; Basophil% 0.4 % (0-1); Eosinophils% 1.4 % (0-5); Hematocrit 34.7 % (37-47); Hemoglobin 10.8 g/dL (12.0-15.0); Lymphocyte # 1.07 X10^3/ul (0.83-4.51); Lymphocyte % 15.2 % (19-41); Mean Corp Hgb Conc 31.1 g/dL (32-36); Mean Corpuscular Hgb 24.3 pg (27.0-32.0); Mean Corpuscular Volume 78.2 fL (81-99); Mean Platelet Vol. 9.7 fl (6.2-12.0); Monocyte# 0.65 X10^3/uL; Monocyte% 9.2 % (0-10); NRBC Flagged by Analyzer 0 % (0-5); Neutrophil # 5.16 X10^3/uL (2.7-7.7); Neutrophil % 73.4 % (47-70); Platelet Count 338 K/mm3 (150-450); RBC Distribution Width CV 15.2 % (11.6-14.6); RBC Distribution Width SD 43.8 fl (35.1-43.9); Red Blood Count 4.44 M/mm3 (4.2-5.4)
[2023-04-22 17:28] VITALS: BP 156/93; PULSE 135
[2023-04-22] MEDS: Metoprolol Tartrate 5 MG/5 ML Vial IV (17:31)
[2023-04-22 17:34] LABS: Anion Gap 5 (5-15); BUN 15 mg/dL (7-18); BUN/Creat Ratio 13.5 RATIO (10-20); Chloride 108 mmol/L (98-107); Creatinine, Serum 1.11 mg/dL (0.55-1.02); EST Glomerular Filtration Rate 51 mL/min (>60); Est Glom Filt Rate - Afr Amer 62 mL/min (>60); Estimated Creatinine Clearance 31.45 ml/min; Glucose 116 mg/dL (74-106); Potassium 3.7 mmol/L (3.5-5.1); Sodium Level 140 mmol/L (136-145); Troponin-I HS 8 pg/mL (3.0-54.0)
--- OUTSIDE RECORDS SUMMARY | 2023-04-22 17:51 | XMS RPT_ITS | CCD ---
Author Name Unknown Address [address] [place] [address] Organization [facility] Care Team Providers Care Street Supervisor Name Role Phone ALEX ESCOBAR Unavailable Unavailable JOSHUA GALINDO Unavailable Unavailable MARKUS, ZAIRA NABI Unavailable Unavailable MARKUS, ZAIRA NABI Unavailable Unavailable MARKUS, ZAIRA NABI Unavailable Unavailable MARKUS, ZAIRA NABI Unavailable Unavailable MARKUS, ZAIRA NABI Unavailable Unavailable MARKUS, ZAIRA NABI Unavailable Unavailable MARKUS, ZAIRA NABI Unavailable Unavailable MARKUS, ZAIRA NABI Unavailable Unavailable MARKUS, ZAIRA NABI Unavailable Unavailable JOSIE BENNETT, DR LEWIS Primary Care Physician Allergies Allergy Classification Reported Allergen(s) Allergy Type Date of Onset Reaction(s) Facility (1 source) Acetaminophen; Translations: [ACETAMINOPHEN] Drug Allergy 5 [facility] (1 source) Acetaminophen / HYDROcodone; Translations: [HYDROCODONE-ACET AMINOPHEN] Drug Allergy 5 [facility] (1 source) Adhesive Tape; Translations: [ADHESIVE TAPE (ROSINS)] Propensity to adverse reactions (disorder) 6 [facility] (1 source) Bee pollen; Translations: [BEE POLLEN] Drug Allergy 5 [facility] (1 source) Latex; Translations: [LATEX] Propensity to adverse reactions to drug (disorder) 9 [facility] (1 source) Morphine; Translations: [MORPHINE] Drug Allergy 3 [facility] (1 source) Penicillins; Translations: [PENICILLINS] Propensity to adverse reactions to drug (disorder) 5 [facility] Medications Current Medications Medication Drug Class(es) Dates Sig (Normalized) Sig (Original) amLODIPine 2.5 mg oral tablet (1 source) Dihydropyridine Calcium Channel Shanel Start: 11-20-2021 amLODIPine 2.5 mg oral tablet 0 Refill(s) Start Date: 11/20/21 Status: Ordered apixaban 5 mg oral tablet (1 source) Factor Xa Inhibitor Start: 11-20-2021 Eliquis 5 mg oral tablet 0 Refill(s) Start Date: 11/20/21 Status: Ordered atorvastatin 40 mg oral tablet (1 source) HMG-CoA Reductase Inhibitor Start: 11-20-2021 atorvastatin 40 mg oral tablet 0 Refill(s) Start Date: 11/20/21 Status: Ordered 24 hr isosorbide mononitrate 60 mg extended release oral tablet (1 source) Nitrate Vasodilator Start: 11-20-2021 isosorbide mononitrate 60 mg oral tablet, extended release 0 Refill(s) Start Date: 11/20/21 Status: Ordered losartan potassium 50 mg oral tablet (1 source) Angiotensin 2 Receptor Shanel Start: 11-20-2021 losartan 50 mg oral tablet 0 Refill(s) Start Date: 11/20/21 Status: Ordered metoprolol tartrate 25 mg oral tablet (1 source) beta-Adrenergic Shanel Start: 11-20-2021 Metoprolol Succinate ER 25 mg oral TABLET extended release 0 Refill(s) Start Date: 11/20/21 Status: Ordered Problems Active Problems Problem Classification Problem Date Documented Da te Episodic/Chronic Fluid and electrolyte disorders (1 source) Dehydration; Translations: [Dehydration] Onset: 11-20-2021 Episodic Past or Other Problems Problem Classification Problem Date Documented Da te Episodic/Chronic Other gastrointestinal disorders (1 source) Dysphagia, unspecified; Translations: [Dysphagia, unspecified] Onset: 07-24-2017 Episodic Other nutritional; endocrine; and metabolic disorders (1 source) Abnormal weight loss; Translations: [Abnormal weight loss] Onset: 11-29-2017 Episodic Results Test Name Value Interpretation Reference Range Facil ity Vital Signs Date Time Vital Sign Value Performing Clinician Lele tejeda 11-20-2021 16:39-0400 Diastolic blood pressure 72 mm[Hg] PRINCESS STEPHEN MD [facility] 11-20-2021 16:39-0400 Heart rate 82 /min PRINCESS STEPHEN MD [facility] 11-20-2021 16:39-0400 Respiratory rate 18 /min PRINCESS STEPHEN MD [facility] 11-20-2021 16:39-0400 Systolic blood pressure 110 mm[Hg] PRINCESS SETPHEN MD [facility] 11-20-2021 15:17-0400 Body temperature 98.06 [degF] PRINCESS STEPHEN MD [facility] 11-20-2021 15:17-0400 Diastolic blood pressure 62 mm[Hg] PRINCESS STEPHEN MD [facility] 11-20-2021 15:17-0400 Heart rate 83 /min PRINCESS STEPHEN MD [facility] 11-20-2021 15:17-0400 Respiratory rate 18 /min PRINCESS STEPHEN MD [facility] 11-20-2021 15:17-0400 Systolic blood pressure 106 mm[Hg] PRINCESS STEPHEN MD [facility] Encounters Encounter Date Encounter Type Care Provider Facility Start: 11-20-2021 End: 11-20-2021 Emergency department patient visit PRINCESS STEPHEN MD [facility] Start: 03-05-2018 End: 03-05-2018 Patient encounter procedure ZAIRA NABI MARKUS [facility] Start: 11-29-2017 Patient encounter procedure ZAIRA NABI MARKUS [facility] Start: 08-28-2017 End: 08-28-2017 Patient encounter procedure ZAIRA NABI MARKUS [facility] Start: 07-24-2017 Patient encounter procedure ZAIRA NABI MARKUS [facility] Start: 07-19-2017 End: 07-19-2017 Patient encounter procedure ZAIRA NABI MARKUS [facility] Start: 12-22-2016 End: 12-22-2016 Emergency department patient visit ALEX ESCOBAR Facility:B Procedures Date Procedure Procedure Detail Performing Clinician Heart structure (body structure) PRINCESS STEPHEN MD Payers Date Payer Category Payer Medicare [id number] Social History Date Type Detail Facility Tobacco smoking status No Smoking Status Entered [facility] Sex Assigned At Female [facility] Functional Status Date Assessment Result Facility 11-20-2021 Functional Status Independent [facility] 11-20-2021 Functional Status Standard Safet y ID band on, Call device within reach, Bed in low position, Wheels locked, Upper/Half-Length side-rails up, Phone within reach, personal items within reach, Assistive devices within reach, Toileting device within reach, Bedside Cart Locked, Visitor at bedside, Safety level maintained [facility] Mental Status Date Assessment Result Facility 11-20-2021 Mental Status Orientation Oriented x 4 [facility] 11-20-2021 Mental Status [facility] Discharge instructions 11-20-2021 Note Date & Type Note Facility 11-20-2021 Hospital Discharg e instructions Patient Education 11/20/2021 16:32:28 Dehydration (Adult) Dehydration (Adult) Dehydration occurs when your body loses too much fluid. This may be the result of prolonged vomiting or diarrhea, excessive sweating, or a high fever. It may also happen if you don t drink enough fluid when you re sick or out in the heat. Misuse of diuretics (water pills) can also be a cause. Symptoms include thirst and decreased urine output. You may also feel dizzy, weak, fatigued, or very drowsy. The diet described below is usually enough to treat dehydration. In some cases, you may need medicine. Home care Drink at least 12 8-ounce glasses of fluid every day to resolve the dehydration. Fluid may include water; orange juice; lemonade; apple, grape, or cranberry juice; clear fruit drinks; electrolyte replacement and sports drinks; and teas and coffee without caffeine. Don't drink alcohol. If you have been diagnosed with a kidney disease, ask your doctor how much and what types of fluids you should drink to prevent dehydration. If you have kidney disease, fluid can build up in the body. This can be dangerous to your health. If you have a fever, muscle aches, or a headache as a result of a cold or flu, you may take acetaminophen or ibuprofen, unless another medicine was prescribed. If you have chronic liver or kidney disease, or have ever had a stomach ulcer or gastrointestinal bleeding, talk with your healthcare provider before using these medicines. Don't take aspirin if you are younger than 18 and have a fever. Aspirin raises the chance for severe liver injury. Follow-up care Follow up with your healthcare provider, or as advised. When to seek medical advice Call your healthcare provider right away if any of these occur: Continued vomiting Frequent diarrhea (more than 5 times a day); blood (red or black color) or mucus in diarrhea Blood in vomit or stool Swollen abdomen or increasing abdominal pain Weakness, dizziness, or fainting Unusual drowsiness or confusion Reduced urine output or extreme thirst Fever of 100.4 F (38 C) or higher [id number] [employer]. [address] [place] [address]. All rights reserved. This information is not intended as a substitute for professional medical care. Always follow your healthcare professional's instructions. Follow Up Care 11/20/2021 15:12:31 With:JOSHUA GALINDO MD Address: [facility] [place] [address]- When:2-[address] [facility] Emergency department Discharge summary 11-20-2021 Note Date & Type Note Facility 11-20-2021 Emergency department Discharge summary Discharge Instructions Thank you for allowing [facility] to assist you with your healthcare needs. The following is important discharge information regarding your hospital visit. Diagnosis from Today's Visit Dehydration Headache Syncope attack What to Do Next Instructions from Your Care Team No qualifying data available. Post Acute Orders No qualifying data available. You Need to Schedule the Following Appointments Follow Up with JOSHUA GALINDO MD When Within 2-4 days Where: [facility] [place] [address]- Allergies NKA Medications Please ask your primary doctor or pharmacist before taking any other medication not listed, including over the counter drugs, herbal medications, vitamins and or supplements as they may interact with your home medications. What When Instructions Last Dose Unchanged amLODIPine (amLODIPine 2.5 mg oral tablet) Unchanged apixaban (Eliquis 5 mg oral tablet) Unchanged atorvastatin (atorvastatin 40 mg oral tablet) Unchanged isosorbide mononitrate (isosorbide mononitrate 60 mg oral tablet, extended release) Unchanged losartan (losartan 50 mg oral tablet) Unchanged metoprolol (Metoprolol Succinate ER 25 mg oral TABLET extended release) Please take this list to your next doctor s visit. Bring all medications you take, including over the counter medications, herbals and other supplements with you to your doctor s visit. Patients and families are reminded to discard old lists and to update any records with all medication providers or retail pharmacies. Education Materials Dehydration (Adult) Dehydration occurs when your body loses too much fluid. This may be the result of prolonged vomiting or diarrhea, excessive sweating, or a high fever. It may also happen if you don t drink enough fluid when you re sick or out in the heat. Misuse of diuretics (water pills) can also be a cause. Symptoms include thirst and decreased urine output. You may also feel dizzy, weak, fatigued, or very drowsy. The diet described below is usually enough to treat dehydration. In some cases, you may need medicine. Home care Drink at least 12 8-ounce glasses of fluid every day to resolve the dehydration. Fluid may include water; orange juice; lemonade; apple, grape, or cranberry juice; clear fruit drinks; electrolyte replacement and sports drinks; and teas and coffee without caffeine. Don't drink alcohol. If you have been diagnosed with a kidney disease, ask your doctor how much and what types of fluids you should drink to prevent dehydration. If you have kidney disease, fluid can build up in the body. This can be dangerous to your health. If you have a fever, muscle aches, or a headache as a result of a cold or flu, you may take acetaminophen or ibuprofen, unless another medicine was prescribed. If you have chronic liver or kidney disease, or have ever had a stomach ulcer or gastrointestinal bleeding, talk with your healthcare provider before using these medicines. Don't take aspirin if you are younger than 18 and have a fever. Aspirin raises the chance for severe liver injury. Follow-up care Follow up with your healthcare provider, or as advised. When to seek medical advice Call your healthcare provider right away if any of these occur: Continued vomiting Frequent diarrhea (more than 5 times a day); blood (red or black color) or mucus in diarrhea Blood in vomit or stool Swollen abdomen or increasing abdominal pain Weakness, dizziness, or fainting Unusual drowsiness or confusion Reduced urine output or extreme thirst Fever of 100.4 F (38 C) or higher [id number] [employer]. [address] [place] [address]. All rights reserved. This information is not intended as a substitute for professional medical care. Always follow your healthcare professional's instructions. Additional Information VACCINATE! IT SAVES LIVES! Members of the community who have not yet received the COVID-19 vaccine and would like to receive it can visit one of [facility] vaccine clinics. There are many vaccine clinic locations within the [facility]. For locations and available times, please visit [email or web address]. It is important to note that some COVID mobile vaccine clinics are held outdoors and may be canceled in rainy or stormy conditions. To learn more about pediatric vaccinations (ages 5-11), we invite you to visit the [facility] webpage. [email or web address] To learn more about the COVID-19 vaccine, we invite you to visit the [facility] website for a list of frequently asked questions. [email or web address] [email or web address] [facility] Patient Portal Access Instructions: Stay connected with your healthcare team and access your personal medical information anytime with the [facility] Patient Portal. If you would like a full copy of your medical records please contact the [facility] Medical Records Department Sunday through Sunday between 8a.m. and 4:30p.m. Please follow the directions below to access the portal: 1.Access the email account you provided upon registration to the hospital.2.Look for an invitation email from [facility].3.Open the email and access the invitation link: Accept Invitation to [facility].Fill in the required phillip to create your account. Sign into [email or web address] with your username and password that you created in the above steps to stay up to date. You can then view a summary of results, a summary of your visits, and the ability to download your summaries to your computer or send the information securely to a physician. Remember that your healthcare information is confidential, so carefully consider who you will allow to register on the [facility] Patient Portal for access to your information. You can also access the [facility] Patient Portal on the [employer]. Simply click on Health Records under Health Data and then click on the [employer] logo. HOW TO SAFELY DISPOSE OF PRESCRIPTION MEDICATIONS Please use one of the following methods to safely dispose of your unused medications. 1.Use a drug disposal kit: the drug disposal pouch allows you to safely discard your old and unused drugs. Ask your nurse to give you one when you are discharged.2.Visit a local take-back location: Many local pharmacies and police departments have programs that collect old and unwanted prescription drugs. Call your local pharmacy or go to http://[place]/5Y0Be7u to find one close to you.3.Make use of household items: Use cat litter or old coffee grounds to dispose medications if other options are not available. Mix your drugs with these household products, seal them in an airtight container and throw it into the garbage. Call [facility]: [phone] to be sure your drugs can be disposed of in this way. Some medicines may require a different approach.4.Never flush your medications down the toilet. IF YOU HAVE BEEN PRESCRIBED AN OPIOIDS FOR PAIN If you have been prescribed an opioid (such as hydrocodone, oxycodone or morphine), it is critical to understand the possible side effects and risks of opioid pain medications. Even when taken as directed, opioids can have several side effects including: Tolerance, meaning you might need to take more of a medication for the same pain relief. Nausea, vomiting and/or constipation. Sleepiness, dizziness, dry mouth, confusion, depression or itching. Physical dependence, meaning you have withdrawal symptoms when a medication is stopped ? this can develop within a few days. KNOW YOUR RESPONSIBILITIES It is important to know exactly how much and how often to take the opioid pain medications you are prescribed. Never take opioids in higher amounts or more often than prescribed. Do not combine opioids with alcohol or other drugs that cause drowsiness, such as benzodiazepines, also known as benzos, including diazepam and alprazolam, muscle relaxants or sleep aids. Never sell or share prescription opioids. This is illegal. Store opioids in a secure place and out of reach of others (including children, family, friends and visitors). The last page(s) of this document has been signed and retained as a CHART COPY Signatures Patient Education Materials Dehydration (Adult) Medication Leaflets My discharge plan and instructions have been reviewed and explained to me and I,JIE HENRIQUEZ understand my current condition and have read and understand these discharge instructions. I have received a written copy of the plan/instructions. If I have questions, I am aware that I should contact my doctor. 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 Evaluation + Plan note Note Date & Type Note Facility Evaluation + Plan note No data available for this section [facility] Note Note Date & Type Note Facility Note PRINECSS STEPHEN MD: SIGN, VERIFY Event Display: EKG [[facility]] - CV Authored Date: [id number] [facility] Summary Purpose Family History No Family History Records FoundNo Family History Records FoundNo Family History Records Found Advance Directives No Advanced Directives Records FoundNo Advanced Directives Records FoundNo Advanced Directives Records Found Additional Source Comments INFORMATION SOURCE (unrecogn ized section and content) DATE CREATED AUTHOR AUTHOR'S ORGANIZ ATION 03/31/2018 [facility] DATE CREATED AUTHOR AUTHOR'S ORGANIZ ATION 01/07/2021 On license of [facility]) Care Team (unrecognized sect ion and content) Care Team Personnel Name: JOSHUA GALINDO MD Member Role: Primary Care Physician Address: Address: [facility]/[address] [place], [place] [address] FOR RECORDS PERTAINING TO PATIENTS WHO ARE OR HAVE BEEN ENROLLED IN A CHEMICAL DEPENDENCY/SUBSTANCEABUSE PROGRAM, SOME INFORMATION MAY BE OMITTED. This clinical summary was aggregated from multiple sources. Caution should be exercised in using it in the provision of clinical care. This summary normalizes information from multiple sources, and as a consequence, information in this document may materially change the coding, format and clinical context of patient data. In addition, data may be omitted in some cases. CLINICAL DECISIONS SHOULD BE BASED ON THE PRIMARY CLINICAL RECORDS. [facility] [employer] [facility]. provides no warranty or guarantee of the accuracy or completeness of information in this document.
--- NOTE | 2023-04-22 18:14 | EKG12_ITS ---
Test Reason : REPEAT AFIB Blood Pressure : / mmHG Vent. Rate : 083 BPM Atrial Rate : 083 BPM P-R Int : 188 ms QRS Dur : 072 ms QT Int : 384 ms P-R-T Axes : 064 -16 -14 degrees QTc Int : 451 ms Normal sinus rhythm Minimal voltage criteria for LVH, may be normal variant ( R in aVL ) Borderline ECG Confirmed by AISHWARYA TOURE MD ([id number]), newspaper editor YIMI BRUNO ([id number]) on 04/24/2023 8:36:26 AM Referred By: LUCIE Confirmed By:AISHWARYA TOURE MD
[2023-04-22 19:38] VITALS: BP 142/74; PULSE 85; RESP 18; O2SAT 94
== END 2023-04-22 19:40 | disposition home or self-care (01) ==
PROVIDERS: Emergency Provider Emergency Medicine; PCP Family Medicine Geriatric Medicine; Visit Provider Emergency Medicine
DX: R04.0 Epistaxis (principal); I48.91 Unspecified atrial fibrillation; Z79.01 Long term (current) use of anticoagulants; I25.10 Atherosclerotic heart disease of native coronary artery without angina pectoris; I10 Essential (primary) hypertension; I25.2 Old myocardial infarction; E78.00 Pure hypercholesterolemia, unspecified; Z79.899 Other long term (current) drug therapy; K21.9 Gastro-esophageal reflux disease without esophagitis; Z96.653 Presence of artificial knee joint, bilateral; Z95.5 Presence of coronary angioplasty implant and graft; Z90.710 Acquired absence of both cervix and uterus; Z90.49 Acquired absence of other specified parts of digestive tract
CPT/HCPCS: 30905; 80048; 84484; 85025; 93005; 99284

== ENCOUNTER → 2023-05-03 | Outpatient (CLI) | payer MEDICARE, SELFPAY ==
[2022-06-16 15:20] VITALS: BMI 37.3
[2023-05-03 12:17] LABS: Hematocrit 33.2 % (37-47); Hemoglobin 10.7 g/dL (12.0-15.0); Mean Corp Hgb Conc 32.2 g/dL (32-36); Mean Corpuscular Hgb 24.7 pg (27.0-32.0); Mean Corpuscular Volume 76.7 fL (81-99); Mean Platelet Vol. 9.8 fl (6.2-12.0); Platelet Count 447 K/mm3 (150-450); RBC Distribution Width CV 15.3 % (11.6-14.6); RBC Distribution Width SD 42.8 fl (35.1-43.9); Red Blood Count 4.33 M/mm3 (4.2-5.4)
== END | disposition home or self-care (01) ==
LOC: LAB 11:17
PROVIDERS: PCP Family Medicine Geriatric Medicine; Visit Provider Physician Assistant Medical
DX: D64.9 Anemia, unspecified (principal); K64.9 Unspecified hemorrhoids
CPT/HCPCS: 36415; 85027

== ENCOUNTER → 2023-05-17 | Outpatient (CLI) | payer MEDICARE, SELFPAY ==
[2022-06-16 15:20] VITALS: BMI 37.3
--- OUTSIDE RECORDS SUMMARY | 2023-05-17 11:29 | XMS RPT_ITS | CCD ---
Author Name Unknown Address [address] [place] [address] Organization [facility] Care Team Providers Care Mimeographer Name Role Phone ALEX ESCOBAR Unavailable Unavailable [...] source) Acetaminophen; Translations: [ACETAMINOPHEN] Drug Allergy 5 [facility] Repository (1 source) Acetaminophen / HYDROcodone; Translations: [HYDROCODONE-ACET AMINOPHEN] Drug Allergy 5 [facility] (1 source) Adhesive Tape; Translations: [ADHESIVE TAPE (ROSINS)] Propensity to adverse reactions (disorder) 6 [facility] (1 source) Bee pollen; Translations: [BEE POLLEN] Drug Allergy 5 [facility] Rep[facility] (1 source) Latex; Translations: [LATEX] Propensity to adverse reactions to drug (disorder) 9 [facility] (1 source) Morphine; Translations: [MORPHINE] Drug Allergy 3 [facility] (1 source) Penicillins; Translations: [PENICILLINS] Propensity to adverse reactions to drug (disorder) 5 [facility] Medications Current Medications Medication Drug Class(es) [...] blood pressure 72 mm[Hg] PRINCESS STEPHEN MD [facility] 11-20-2021 16:39-0400 Heart rate 82 /min PRINCESS STEPHEN MD [facility] 11-20-2021 16:39-0400 Respiratory rate 18 /min PRINCESS STEPHEN MD [facility] 11-20-2021 16:39-0400 Systolic blood pressure 110 mm[Hg] PRINCESS STEPHEN MD [facility] 11-20-2021 15:17-0400 Body temperature 98.06 [degF] PRINCESS STEPHEN MD [facility] 11-20-2021 15:17-0400 Diastolic blood pressure 62 mm[Hg] PRINCESS STEPHEN MD [facility] 11-20-2021 15:17-0400 Heart rate 83 /min PRINCESS STEPHEN MD [facility] 11-20-2021 15:17-0400 Respiratory rate 18 /min PRINCESS STEPHEN MD [facility] 11-20-2021 15:17-0400 Systolic blood pressure 106 mm[Hg] PRINCESS STEPHEN MD [facility] Encounters Encounter Date Encounter Type Care Provider Facility Start: 11-20-2021 End: 11-20-2021 Emergency department patient visit PRINCESS STEPHEN MD [facility] Start: 03-05-2018 End: 03-05-2018 Patient encounter procedure ZAIRA NABI MARKUS [facility] Start: 11-29-2017 Patient encounter procedure ZAIRA NABI MARKUS [facility] Start: 08-28-2017 End: 08-28-2017 Patient encounter procedure ZAIRA NABI MARKUS [facility] Start: 07-24-2017 Patient encounter procedure ZAIRA NABI MARKUS [facility] Start: 07-19-2017 End: 07-19-2017 Patient encounter procedure ZAIRA NABI MARKUS [facility] Start: 12-22-2016 End: 12-22-2016 Emergency department patient visit ALEX ESCOBAR Facility:B Procedures Date Procedure Procedure Detail Performing Clinician Heart structure (body structure) PRINCESS STEPHEN MD Payers Date Payer Category Payer Medicare [id number] Social History Date Type Detail Facility Tobacco smoking status No Smoking Status Entered [facility] Sex Assigned At Female [facility] Functional Status Date Assessment Result Facility 11-20-2021 Functional Status Independent [facility] 11-20-2021 Functional Status Standard Safet y ID band on, Call device within reach, Bed in low position, Wheels locked, Upper/Half-Length side-rails up, Phone within reach, personal items within reach, Assistive devices within reach, Toileting device within reach, Bedside Cart Locked, Visitor at bedside, Safety level maintained [facility] Mental Status Date Assessment Result Facility 11-20-2021 Mental Status Orientation Oriented x 4 [facility] 11-20-2021 Mental Status [facility] Discharge instructions 11-20-2021 Note Date & Type [...] of 100.4 F (38 C) or higher [id number] [facility]. [address] [place] [address]. All rights reserved. This information is not intended as a substitute for professional medical care. Always follow your healthcare professional's instructions. Follow Up Care 11/20/2021 15:12:31 With:JOSHUA GALINDO MD Address: [facility] [place] [address]- When:2-4 days [facility] Emergency department Discharge summary 11-20-2021 Note Date & Type Note Facility 11-20-2021 Emergency department Discharge summary Discharge Instructions Thank you for allowing [facility] to assist you with your healthcare needs. [...] Where: [facility] [place] [address]- Allergies NKA Medications Please ask your primary [...] of 100.4 F (38 C) or higher [id number] [facility]. [address] [place] [address]. All rights reserved. This information is not intended as a substitute for professional medical care. Always follow your healthcare professional's instructions. Additional Information VACCINATE! IT SAVES LIVES! Members of the community who have not yet received the COVID-19 vaccine and would like to receive it can visit one of [facility] vaccine clinics. There are many vaccine clinic locations within the [facility]. For locations and available times, please visit [email or web address]. It is important to note that some COVID mobile vaccine clinics are held outdoors and may be canceled in rainy or stormy conditions. To learn more about pediatric vaccinations (ages 5-11), we invite you to visit the [facility] webpage. [email or web address] To learn more about the COVID-19 vaccine, we invite you to visit the [facility] website for a list of frequently asked questions. [email or web address] [facility] Patient Portal Access Instructions: Stay connected with your healthcare team and access your personal medical information anytime with the [facility] Patient Portal. If you would like a full copy of your medical records please contact the [facility] Medical Records Department Sunday through Sunday between 8a.m. and 4:30p.m. Please follow the directions below to access the portal: 1.Access the email account you provided upon registration to the hospital.2.Look for an invitation email from [facility].3.Open the email and access the invitation link: Accept Invitation to [email or web address].Fill in the required phillip to create your [...] you will allow to register on the [facility] Patient Portal for access to your information. You can also access the [email or web address] Patient Portal on the [employer]. Simply click on Health Records under Health [...] Call your local pharmacy or go to [email or web address] to find one close to you.3.Make use of household items: Use cat litter or old coffee grounds to dispose medications if other options are not available. Mix your drugs with these household products, seal them in an airtight container and throw it into the garbage. Call [facility]: [phone] to be sure your drugs can be [...] aware that I should contact my doctor. Patient/Nursing Resident Signature: Date/Time: Relationship to Patient: ____ Witness Name/Signature: Date/Time: [facility] Evaluation + Plan note Note Date & Type Note Facility Evaluation + Plan note No data available for this section [facility] Note Note Date & Type Note Facility Note PRINCESS STEPHEN MD: SIGN, VERIFY Event Display: EKG [[facility]] - CV Authored Date: [id number] [facility] Summary Purpose Family History No Family History Records FoundNo Family History Records FoundNo Family History Records Found Advance Directives No Advanced Directives Records FoundNo Advanced Directives Records FoundNo Advanced Directives Records Found Additional Source Comments INFORMATION SOURCE (unrecogn ized section and content) DATE CREATED AUTHOR AUTHOR'S ORGANIZ ATION 03/31/2018 [facility] DATE CREATED AUTHOR AUTHOR'S ORGANIZ ATION 01/07/2021 [facility] ([place]) Care Team (unrecognized sect ion and content) Care Team Personnel Name: JOSHUA GALIDNO MD Member Role: Primary Care Physician Address: Address: [facility]/[address] [place], [place] [address] FOR RECORDS PERTAINING TO PATIENTS WHO ARE [...] BE BASED ON THE PRIMARY CLINICAL RECORDS. [facility] [email or web address] [facility]. provides no warranty or guarantee of the accuracy or completeness of information in this document.
== END | disposition home or self-care (01) ==
LOC: PSN 11:00
PROVIDERS: PCP Family Medicine Geriatric Medicine; Referring Provider Family Medicine Geriatric Medicine; Visit Provider Family Medicine Geriatric Medicine
DX: R68.83 Chills (without fever) (principal)
CPT/HCPCS: 87631

== ENCOUNTER → 2023-06-15 | Outpatient (CLI) | payer MEDICARE, SELFPAY ==
[2022-06-16 15:20] VITALS: BMI 37.3
== END | disposition home or self-care (01) ==
LOC: PSN 08:33
PROVIDERS: PCP Family Medicine Geriatric Medicine; Referring Provider Physician Assistant Medical; Visit Provider Physician Assistant Medical
DX: I48.0 Paroxysmal atrial fibrillation (principal); I25.5 Ischemic cardiomyopathy; R00.0 Tachycardia, unspecified
CPT/HCPCS: 93225; 93226

== ENCOUNTER → 2023-06-19 | Outpatient (CLI) | payer MEDICARE, SELFPAY ==
[2022-06-16 15:20] VITALS: BMI 37.3
[2023-06-19 12:17] LABS: Absolute Lymphocyte Count 1.65 X10^3/uL (0.83-4.51); Absolute Neutrophil Count 5.4 X10^3/uL (2.0-7.7); Basophil# 0.06 X10^3/uL; Basophil% 0.8 % (0-1); Eosinophil# 0.15 X10^3/uL; Eosinophils% 1.9 % (0-5); Hematocrit 35.4 % (37-47); Hemoglobin 10.8 g/dL (12.0-15.0); Lymphocyte # 1.65 X10^3/ul (0.83-4.51); Lymphocyte % 20.9 % (19-41); Mean Corp Hgb Conc 30.5 g/dL (32-36); Mean Corpuscular Hgb 23.4 pg (27.0-32.0); Mean Corpuscular Volume 76.6 fL (81-99); Mean Platelet Vol. 9.8 fl (6.2-12.0); Monocyte# 0.61 X10^3/uL; Monocyte% 7.7 % (0-10); NRBC Flagged by Analyzer 0 % (0-5); Neutrophil # 5.39 X10^3/uL (2.7-7.7); Neutrophil % 68.3 % (47-70); Platelet Count 398 K/mm3 (150-450); RBC Distribution Width CV 17.3 % (11.6-14.6); RBC Distribution Width SD 47.7 fl (35.1-43.9); Red Blood Count 4.62 M/mm3 (4.2-5.4); White Blood Count 7.9 K/mm3 (4.4-11.0)
[2023-06-19 12:49] LABS: Vitamin D,25 Hydroxy 43.2 ng/mL
[2023-06-19 13:31] LABS: ALB/GLOB Ratio 0.7 RATIO (0.9-2.4); AST(SGOT) 17 U/L (15-37); Alanine Aminotransfer ALT/SGPT 19 U/L (13-56); Albumin, Serum 3.1 g/dL (3.2-5.0); Alkaline Phosphatase 100 U/L (45-117); Anion Gap 7 (5-15); BUN 20 mg/dL (7-18); BUN/Creat Ratio 17.4 RATIO (10-20); Calcium,Total 9.2 mg/dL (8.5-10.1); Chloride 109 mmol/L (98-107); Creatinine, Serum 1.15 mg/dL (0.55-1.02); EST Glomerular Filtration Rate 49 mL/min (>60); Est Glom Filt Rate - Afr Amer 59 mL/min (>60); Globulin 4.3 g/dL (2.2-4.2); Glucose 103 mg/dL (74-106); Potassium 3.9 mmol/L (3.5-5.1); Protein, Total 7.4 g/dL (6.4-8.2); Sodium Level 139 mmol/L (136-145); Thyroid Stim Hormone (TSH) 1.57 uIU/mL (0.358-3.74)
== END | disposition home or self-care (01) ==
LOC: POLAB3 10:49
PROVIDERS: PCP Family Medicine Geriatric Medicine; Visit Provider Family Medicine Geriatric Medicine
DX: I10 Essential (primary) hypertension (principal); E55.9 Vitamin D deficiency, unspecified
CPT/HCPCS: 36415; 80053; 82306; 84443; 85025

== ENCOUNTER → 2023-07-02 | Outpatient (CLI) | payer MEDICARE, SELFPAY ==
[2022-06-16 15:20] VITALS: BMI 37.3
[2023-07-02 12:44] LABS: AST(SGOT) 16 U/L (15-37); Alanine Aminotransfer ALT/SGPT 17 U/L (13-56); Albumin, Serum 2.9 g/dL (3.2-5.0); Alkaline Phosphatase 100 U/L (45-117); Bilirubin, Direct 0.14 mg/dL (0.00-0.30); Free T3 2.3 pg/mL (2.18-3.98); Globulin 4.3 g/dL (2.2-4.2); Protein, Total 7.2 g/dL (6.4-8.2); Thyroid Stim Hormone (TSH) 1.79 uIU/mL (0.358-3.74)
== END | disposition home or self-care (01) ==
LOC: LAB 10:13
PROVIDERS: PCP Family Medicine Geriatric Medicine; Referring Provider Physician Assistant Medical; Visit Provider Physician Assistant Medical
DX: I10 Essential (primary) hypertension (principal); Z79.899 Other long term (current) drug therapy
CPT/HCPCS: 36415; 80076; 84439; 84443; 84481

== ENCOUNTER → 2023-08-14 | Outpatient (CLI) | payer MEDICARE, SELFPAY ==
[2022-06-16 15:20] VITALS: BMI 37.3
--- NOTE | 2023-08-14 16:33 | RAD_ITS ---
STUDY: X-RAY CHEST REASON FOR EXAM: Female, 78 years old. CHEST PAIN TECHNIQUE: PA and lateral views of the chest. COMPARISON: None. FINDINGS: The lungs are clear and expanded. There is no demonstrated pleural abnormality. Normal size heart. Normal mediastinum and sung. Normal visualized pulmonary arteries. Normal visualized aortic arch and descending thoracic aorta. Normal visualized thoracic spine. Normal visualized ribs, clavicles, and shoulders. There is no demonstrated abnormality of the visualized soft tissue structures of the upper abdomen. RAD/Chest PA and Lateral IMPRESSION: Normal x-ray examination of the chest. Electronically Signed: Igor García MD at 0:11 EDT ,
[2023-08-14 16:52] LABS: Absolute Lymphocyte Count 2.25 X10^3/uL (0.83-4.51); Basophil# 0.05 X10^3/uL; Basophil% 0.6 % (0-1); Eosinophil# 0.15 X10^3/uL; Eosinophils% 1.9 % (0-5); Hematocrit 32.8 % (37-47); Hemoglobin 9.9 g/dL (12.0-15.0); Lymphocyte # 2.25 X10^3/ul (0.83-4.51); Mean Corp Hgb Conc 30.2 g/dL (32-36); Mean Corpuscular Hgb 23.2 pg (27.0-32.0); Mean Corpuscular Volume 76.8 fL (81-99); Mean Platelet Vol. 10.1 fl (6.2-12.0); Monocyte# 0.57 X10^3/uL; Monocyte% 7.1 % (0-10); NRBC Flagged by Analyzer 0 % (0-5); Neutrophil # 4.99 X10^3/uL (2.7-7.7); Platelet Count 391 K/mm3 (150-450); RBC Distribution Width CV 18.2 % (11.6-14.6); Red Blood Count 4.27 M/mm3 (4.2-5.4)
[2023-08-14 17:19] LABS: BNP,B-Type NATRIURETIC PEPTIDE 152.2 pg/mL (0-100)
[2023-08-14 17:32] LABS: D-Dimer Quantitative (DVT/PE) 1.15 FEU/ug/m (0.27-0.49)
[2023-08-14 18:36] LABS: Anion Gap 5 (5-15); BUN 19 mg/dL (7-18); BUN/Creat Ratio 17.1 RATIO (10-20); CPK Total, Creatine Kinase 71 U/L (26-192); Calcium,Total 9.3 mg/dL (8.5-10.1); Chloride 107 mmol/L (98-107); Creatinine, Serum 1.11 mg/dL (0.55-1.02); EST Glomerular Filtration Rate 51 mL/min (>60); Est Glom Filt Rate - Afr Amer 61 mL/min (>60); Glucose 96 mg/dL (74-106); Potassium 3.8 mmol/L (3.5-5.1); Sodium Level 140 mmol/L (136-145); Troponin-I HS 5 pg/mL (3.0-54.0)
[2023-08-16 03:07] LABS: Myoglobin, Serum 45 ng/mL (25-58)
== END | disposition home or self-care (01) ==
PROVIDERS: PCP Family Medicine Geriatric Medicine; Referring Provider Family Medicine Geriatric Medicine; Visit Provider Family Medicine Geriatric Medicine
DX: R07.9 Chest pain, unspecified (principal); R06.02 Shortness of breath; I10 Essential (primary) hypertension
CPT/HCPCS: 36415; 71046; 80048; 82550; 83874; 83880; 84484; 85025; 85379

== ENCOUNTER → 2023-08-15 | Outpatient (CLI) | payer MEDICARE, SELFPAY ==
[2022-06-16 15:20] VITALS: BMI 37.3
--- NOTE | 2023-08-15 10:31 | CT_ITS ---
STUDY: CTA CHEST REASON FOR EXAM: Female, 78 years old. SOB RADIATION DOSAGE (If Supplied By Facility): CTDIvol = ( 12.53 ) mGy, DLP = ( 463.83 ) mGycm TECHNIQUE: The examination was performed with the intravenous administration of IV 100mL Isovue-300. Post-processing of the angiographic images was performed, with multiplanar reformation and 3D reconstruction. Individualized dose optimization techniques were used for this CT. COMPARISON: Comparison is made with prior study dated March 24, 2022. FINDINGS: Normal enhancement of the main pulmonary artery and right and left pulmonary arteries. Normal enhancement of the bilateral peripheral pulmonary arteries. There is no demonstrated pulmonary embolism. Normal thoracic aorta and visualized great vessels. There is no demonstrated aortic dissection. There are calcifications of the coronary arteries. Normal mediastinum. Normal hilar regions. Normal visualized trachea and bronchi. The lungs are well expanded. Mild degree of interstitial scarring at the lung bases slightly more prominent at the left lung base. Normal pleura. Normal chest wall structures. There are degenerative changes of thoracic spine. Increased kyphosis. The patient is status post cholecystectomy. Pancreatic atrophy. Small hiatal hernia. CT/CTA Chest W/WO Contrast IMPRESSION: Findings suggestive of mild scarring at the lung bases. No evidence of a pulmonary embolism. Electronically Signed: Peter Davidson MD at 11:09 EDT ,
[2023-08-15 12:02] LABS: AST(SGOT) 18 U/L (15-37); Alanine Aminotransfer ALT/SGPT 17 U/L (13-56); Alkaline Phosphatase 109 U/L (45-117); Bilirubin, Direct 0.11 mg/dL (0.00-0.30); Cholesterol 188 mg/dL (200); Globulin 4.3 g/dL (2.2-4.2); High Density Lipoprotein 41 mg/dL; Protein, Total 7.3 g/dL (6.4-8.2); Triglycerides 97 mg/dL; Very Low Density Lipoprotein 19 mg/dL (5-40)
[2023-08-15 16:47] LABS: Absolute Lymphocyte Count 1.99 X10^3/uL (0.83-4.51); Absolute Neutrophil Count 4.8 X10^3/uL (2.0-7.7); Basophil# 0.06 X10^3/uL; Basophil% 0.8 % (0-1); Eosinophil# 0.17 X10^3/uL; Eosinophils% 2.2 % (0-5); Hematocrit 34.1 % (37-47); Hemoglobin 10.3 g/dL (12.0-15.0); Lymphocyte # 1.99 X10^3/ul (0.83-4.51); Lymphocyte % 26.1 % (19-41); Mean Corp Hgb Conc 30.2 g/dL (32-36); Mean Corpuscular Hgb 23.3 pg (27.0-32.0); Mean Corpuscular Volume 77.1 fL (81-99); Mean Platelet Vol. 10.2 fl (6.2-12.0); Monocyte# 0.62 X10^3/uL; Monocyte% 8.1 % (0-10); NRBC Flagged by Analyzer 0 % (0-5); Neutrophil # 4.76 X10^3/uL (2.7-7.7); Neutrophil % 62.5 % (47-70); Platelet Count 396 K/mm3 (150-450); RBC Distribution Width CV 18.2 % (11.6-14.6); RBC Distribution Width SD 50.5 fl (35.1-43.9); Red Blood Count 4.42 M/mm3 (4.2-5.4); White Blood Count 7.6 K/mm3 (4.4-11.0)
[2023-08-15 17:20] LABS: CPK Total, Creatine Kinase 77 U/L (26-192); Troponin-I HS 6 pg/mL (3.0-54.0)
[2023-08-17 04:07] LABS: Myoglobin, Serum 41 ng/mL (25-58)
== END | disposition home or self-care (01) ==
PROVIDERS: Nurse Practitioner Gerontology; PCP Family Medicine Geriatric Medicine; Referring Provider Physician Assistant Medical; Visit Provider Family Medicine Geriatric Medicine
DX: R06.02 Shortness of breath (principal); R79.1 Abnormal coagulation profile; I10 Essential (primary) hypertension; R07.9 Chest pain, unspecified
CPT/HCPCS: 36415; 71275; 80061; 80076; 82550; 83874; 84484; 85025; Q9967

== ENCOUNTER → 2023-08-16 | Outpatient (CLI) | payer MEDICARE, SELFPAY ==
[2022-06-16 15:20] VITALS: BMI 37.3
== END | disposition home or self-care (01) ==
LOC: LAB 12:44
PROVIDERS: PCP Family Medicine Geriatric Medicine; Referring Provider Family Medicine Geriatric Medicine; Visit Provider Family Medicine Geriatric Medicine
DX: I10 Essential (primary) hypertension (principal); R06.02 Shortness of breath; R07.9 Chest pain, unspecified
CPT/HCPCS: 82274

== ENCOUNTER → 2023-08-17 | Outpatient (CLI) | payer MEDICARE, SELFPAY ==
[2022-06-16 15:20] VITALS: BMI 37.3
[2023-08-17 11:35] LABS: Absolute Lymphocyte Count 0.94 X10^3/uL (0.83-4.51); Absolute Neutrophil Count 5.4 X10^3/uL (2.0-7.7); Basophil# 0.03 X10^3/uL; Basophil% 0.4 % (0-1); Hematocrit 32.9 % (37-47); Hemoglobin 10.1 g/dL (12.0-15.0); Lymphocyte # 0.94 X10^3/ul (0.83-4.51); Lymphocyte % 14.1 % (19-41); Mean Corp Hgb Conc 30.7 g/dL (32-36); Mean Corpuscular Hgb 23.4 pg (27.0-32.0); Mean Corpuscular Volume 76.3 fL (81-99); Mean Platelet Vol. 9.7 fl (6.2-12.0); Monocyte# 0.23 X10^3/uL; Monocyte% 3.4 % (0-10); NRBC Flagged by Analyzer 0 % (0-5); Neutrophil # 5.43 X10^3/uL (2.7-7.7); Neutrophil % 81.4 % (47-70); Platelet Count 413 K/mm3 (150-450); RBC Distribution Width CV 17.8 % (11.6-14.6); RBC Distribution Width SD 49.6 fl (35.1-43.9); Red Blood Count 4.31 M/mm3 (4.2-5.4); White Blood Count 6.7 K/mm3 (4.4-11.0)
== END | disposition home or self-care (01) ==
LOC: POLAB3 10:58
PROVIDERS: PCP Family Medicine Geriatric Medicine; Visit Provider Family Medicine Geriatric Medicine
DX: I10 Essential (primary) hypertension (principal)
CPT/HCPCS: 36415; 85025

== ENCOUNTER → 2023-08-29 | Outpatient (CLI) | payer MEDICARE, SELFPAY ==
[2022-06-16 15:20] VITALS: BMI 37.3
--- NOTE | 2023-08-29 14:49 | VDLE_ITS ---
Reason For Study: SWELLING RIGHT LEFT GSV is normal. GSV is normal. CFV is compressible, spontaneous, phasic, CFV is compressible, spontaneous, phasic, competent and demonstrates normal competent, and demonstrates normal augmentation. augmentation. FV is compressible, spontaneous, phasic, FV is compressible, spontaneous, phasic, competent and demonstrates normal competent and demonstrates normal augmentation. augmentation. POP V is compressible, spontaneous, phasic, POP V is compressible, spontaneous, phasic, competent and demonstrates normal competent and demonstrates normal augmentation. augmentation. T/P Trunk is compressible. T/P Trunk is compressible. PTV is compressible. PTV is compressible. RT PerV is compressible. LT PerV is compressible. Procedure This is a venous duplex using B-mode, color flow and spectral Doppler. Exam performed in department. The study was technically difficult. PT had difficulty with probe pressure. A preliminary report was called and/or faxed to Dr Morin @ 15:45 @ [phone]. VL/Venous Duplex US - Pedro Extrem Interpretation Summary Deep veins of the lower extremities are bilaterally patent and compressible seg mentally. There is no evidence of deep vein thrombosis on either side. Valvular competence appears in tact within the proximal deep venous systems bilaterally. The great saphenous veins appear bila terally patent and compressible segmentally. Ordering Physician: Alexi Morin Chi Referring Physician: Alexi Morni Chi Performed By: Claudia Dan, RDCS, RVT
--- NOTE | 2023-08-29 15:06 | RAD_ITS ---
STUDY: X-RAY - LEFT FOOT CLINICAL: Female, 78 years old. HEMATOMA. Swelling of the foot. TECHNIQUE: 3 view(s) of the foot. COMPARISON: Comparison is made with prior study March 23, 2016. FINDINGS: Calcaneal spurs. Normal visualized subtalar, talonavicular, calcaneocuboid, tarsal and tarsometatarsal articulations. Normal metatarsi. There is degenerative arthrosis of the metatarsophalangeal joint of the hallux with a hallux valgus deformity. Normal tibial and fibular sesamoid bones. Normal interphalangeal joint of the great toe. Normal phalanges of the great toe. Normal second through fifth metatarsophalangeal joints. Plantarflexion of the proximal interphalangeal joints of the toes. Diffuse soft tissue swelling more prominent over the dorsal aspect of the foot. RAD/Foot min 3 Views IMPRESSION: Diffuse soft tissue swelling more prominent along the dorsal aspect of the foot. Electronically Signed: Peter Davidson MD at 15:31 EDT ,
[2023-08-29 16:22] LABS: Absolute Lymphocyte Count 1.85 X10^3/uL (0.83-4.51); Absolute Neutrophil Count 7.1 X10^3/uL (2.0-7.7); Basophil# 0.07 X10^3/uL; Basophil% 0.7 % (0-1); Hematocrit 30.6 % (37-47); Lymphocyte # 1.85 X10^3/ul (0.83-4.51); Lymphocyte % 18.3 % (19-41); Mean Corp Hgb Conc 29.4 g/dL (32-36); Mean Corpuscular Hgb 22.8 pg (27.0-32.0); Mean Corpuscular Volume 77.5 fL (81-99); Monocyte# 0.92 X10^3/uL; Monocyte% 9.1 % (0-10); NRBC Flagged by Analyzer 0 % (0-5); Neutrophil # 7.13 X10^3/uL (2.7-7.7); Neutrophil % 70.4 % (47-70); Platelet Count 368 K/mm3 (150-450); RBC Distribution Width CV 17.5 % (11.6-14.6); RBC Distribution Width SD 49.1 fl (35.1-43.9); Red Blood Count 3.95 M/mm3 (4.2-5.4); White Blood Count 10.1 K/mm3 (4.4-11.0)
[2023-08-29 16:47] LABS: ALB/GLOB Ratio 0.8 RATIO (0.9-2.4); AST(SGOT) 17 U/L (15-37); Alanine Aminotransfer ALT/SGPT 19 U/L (13-56); Albumin, Serum 2.9 g/dL (3.2-5.0); Alkaline Phosphatase 105 U/L (45-117); Anion Gap 3 (5-15); BUN 23 mg/dL (7-18); BUN/Creat Ratio 20.9 RATIO (10-20); Chloride 108 mmol/L (98-107); EST Glomerular Filtration Rate 51 mL/min (>60); Est Glom Filt Rate - Afr Amer 62 mL/min (>60); Globulin 3.7 g/dL (2.2-4.2); Glucose 80 mg/dL (74-106); Potassium 3.8 mmol/L (3.5-5.1); Protein, Total 6.6 g/dL (6.4-8.2); Sodium Level 140 mmol/L (136-145)
== END | disposition home or self-care (01) ==
LOC: CVS 14:45
PROVIDERS: PCP Family Medicine Geriatric Medicine; Referring Provider Family Medicine Geriatric Medicine; Visit Provider Family Medicine Geriatric Medicine
DX: I10 Essential (primary) hypertension (principal); R22.43 Localized swelling, mass and lump, lower limb, bilateral; S90.32XA Contusion of left foot, initial encounter
CPT/HCPCS: 36415; 73630; 80053; 85025; 93970

== ENCOUNTER → 2023-09-05 | Outpatient (CLI) | payer MEDICARE, SELFPAY ==
[2022-06-16 15:20] VITALS: BMI 37.3
--- NOTE | 2023-09-05 13:02 | US_ITS ---
INDICATION: HEMATOMA L FOOT EXAMINATION: Left Lower extremity duplex venous ultrasound. HISTORY: Hematoma. COMPARISON: Radiograph dated August 29, 2023 TECHNIQUE: Routine and color duplex imaging with spectral analysis. FINDINGS: There is diffuse subcutaneous edema throughout the dorsal aspect of the foot. At the level of the fifth metatarsal there is a subcutaneous simple appearing 1.4 x 0.6 x 1.3 cm fluid focus. US/Ext Non Vasc Limited/Soft Tiss IMPRESSION: Diffuse subcutaneous edema associated with a 1.4 x 0.6 x 1.3 cm simple appearing subcutaneous fluid focus at the level of the fifth metatarsal, may reflect a seroma. Electronically Signed: Edwina Eubanks MD at 14:29 EDT ,
--- NOTE | 2023-09-05 13:02 | CT_ITS ---
STUDY: CT ABDOMEN WITH CONTRAST REASON FOR EXAM: Female, 78 years old. RIGHT FLANK PAIN RADIATION DOSAGE (If Supplied By Facility): CTDIvol = ( 22.03 ) mGy, DLP = ( 910.25 ) mGycm TECHNIQUE: Transaxial images were obtained post I.V. administration of Oral and amp; IV Readi-CAT and amp; 100mL Isovue-300, and with oral contrast. Sagittal and coronal images were reconstructed. Individualized dose optimization techniques were used for this CT. COMPARISON: Comparison is made with prior study October 20, 2020. FINDINGS: Minimal increased markings at the lung bases suggestive of linear atelectasis and/or scarring. Coronary artery calcification. Normal liver. The gallbladder is contracted. Normal spleen. Normal pancreas. Normal bilateral adrenal glands. Normal right kidney. Normal left kidney. Normal visualized stomach. Normal small intestine. There are multiple colonic diverticula consistent with diverticulosis. The appendix is visualized and appears normal. There is scattered atherosclerotic calcification of the abdominal aorta, without a demonstrated aneurysm. Normal inferior vena cava. Normal retroperitoneum. Normal abdominal wall. There are degenerative changes of the visualized lumbar spine. Stable minimal anterolisthesis of L4 on L5. CT/Abdomen WITH IV Contrast IMPRESSION: Status post cholecystectomy. Sigmoid diverticulosis. Electronically Signed: Peter Davidson MD at 15:17 EDT ,
== END | disposition home or self-care (01) ==
LOC: CT 13:00
PROVIDERS: PCP Family Medicine Geriatric Medicine; Referring Provider Family Medicine Geriatric Medicine; Visit Provider Family Medicine Geriatric Medicine
DX: R10.9 Unspecified abdominal pain (principal); R22.43 Localized swelling, mass and lump, lower limb, bilateral; S90.32XA Contusion of left foot, initial encounter
CPT/HCPCS: 74160; 76882; Q9967

== ENCOUNTER 2023-09-06 14:31 | Outpatient (CLI) | payer MEDICARE, SELFPAY ==
[2022-06-16 15:20] VITALS: BMI 37.3
[2023-09-06 16:10] LABS: CRP, High Sensitivity Cardiac 1.49 mg/L
[2023-09-06 16:24] LABS: Erythrocyte Sedimentation Rate 13 mm/hr (0-30)
== END 2023-09-06 23:59 | disposition home or self-care (01) ==
LOC: LAB 14:32
PROVIDERS: PCP Family Medicine Geriatric Medicine; Referring Provider Internal Medicine Pulmonary Disease; Visit Provider Internal Medicine Pulmonary Disease
DX: R06.02 Shortness of breath (principal)
CPT/HCPCS: 36415; 85652; 86141

== ENCOUNTER → 2023-10-10 | Outpatient (CLI) | payer MEDICARE, SELFPAY ==
[2022-06-16 15:20] VITALS: BMI 37.3
== END | disposition home or self-care (01) ==
LOC: LABSPEC 12:55
PROVIDERS: PCP Family Medicine Geriatric Medicine; Referring Provider Family Medicine Geriatric Medicine; Visit Provider Family Medicine Geriatric Medicine
DX: N39.0 Urinary tract infection, site not specified (principal)
CPT/HCPCS: 87077; 87086; 87088; 87186

== ENCOUNTER → 2023-10-11 | Outpatient (CLI) | payer MEDICARE, SELFPAY ==
[2022-06-16 15:20] VITALS: BMI 37.3
--- NOTE | 2023-10-11 07:33 | ECHOD_ITS ---
Version 2 Reason For Study: SOB Procedure This was a 2D Doppler, Color Flow transthoracic echocardiogram. Myocardial strain analysis was performed in this exam to aid in the assessment of cardiac function. Exam performed in department. Left Ventricle Normal LV size. Left ventricular systolic function is normal. The estimated ejection fraction is 64 %. No regional wall motion abnormalities noted. Right Ventricle Normal RV size. Normal systolic function. Atria Normal left atrium. Normal right atrium. Mitral Valve Normal mitral valve. Mild (1+) eccentric mitral valve insufficiency. Tricuspid Valve Normal tricuspid valve. Mild to moderate (1-2+) tricuspid valve insufficiency. Pulmonary artery systolic pressure is 48 mmHg. Mild pulmonary hypertension. Aortic Valve Trisinus/trileaflet aortic valve. Mild focal aortic valve calcification. Pulmonic Valve Normal pulmonic valve. Great Vessels Normal aortic root. The pulmonary artery is normal size. Inferior vena cava collapse with sniff. Pericardium/Pleural No pericardial effusion. MMode/2D Measurements & Calculations LVIDd: 4.2 cm IVSd: 0.94 cm Ao root diam: 3.0 cm LVIDs: 3.2 cm LVPWd: 0.90 cm LA dimension: 3.9 cm RVDd: 4.2 cm FS: 25.2 % LAV(MOD-bp): 65.3 ml LVAd ap4: 24.9 cm2 SV(MOD-sp4): 42.2 ml LAV(MOD-bp) Indexed: 34.5 ml/m2 LVLd ap4: 7.3 cm LAV(MOD-sp2): 67.6 ml EDV(MOD-sp4): 69.0 ml LAV(MOD-sp4): 62.8 ml EDV(sp4-el): 72.2 ml LVAs ap4: 13.9 cm2 LVLs ap4: 6.3 cm ESV(MOD-sp4): 26.8 ml ESV(sp4-el): 25.8 ml EF(MOD-sp4): 61.2 % EF(sp4-el): 64.3 % SV(sp4-el): 46.5 ml LA A4 area: 20.9 cm2 RA A4 area: 17.5 cm2 TAPSE: 2.3 cm Time Measurements MV dec time: 0.15 sec Doppler Measurements & Calculations MV E max jayro: 95.8 cm/sec Lat Peak E' Jayro: 13.9 cm/sec Med Peak E' Jayro: 9.8 cm/sec MV A max jayro: 49.3 cm/sec E/E' lat: 6.9 E/E' med: 9.7 MV E/A: 1.9 MV V2 max: 113.4 cm/sec MV P1/2t max jayro: 113.4 cm/sec Ao V2 max: 149.3 cm/sec MV max P.1 mmHg MV P1/2t: 56.9 msec Ao max P.9 mmHg MV V2 mean: 53.6 cm/sec MV dec slope: 584.0 cm/sec2 Ao V2 mean: 102.9 cm/sec MV mean P.4 mmHg Ao mean P.9 mmHg MV V2 VTI: 29.3 cm MVA(P1/2t): 3.9 cm2 Ao V2 VTI: 38.5 cm AV (velocity ratio): 0.64 LV V1 max: 98.4 cm/sec MR max jyaro: 504.4 cm/sec PA V2 max: 84.0 cm/sec LV V1 max P.9 mmHg MR max P.8 mmHg PA max PG (full): 1.3 mmHg LV V1 mean P.1 mmHg MR mean jayro: 415.0 cm/sec PA V2 mean: 56.5 cm/sec LV V1 mean: 68.1 cm/sec MR mean P.8 mmHg PA mean PG (full): 0.49 mmHg LV V1 VTI: 24.6 cm MR VTI: 207.5 cm TR max jayro: 328.7 cm/sec TR max P.2 mmHg ECHO/Echo Complete Interpretation Summary Mild to moderate (1-2+) tricuspid valve insufficiency. Normal LV size. Left ventricular systolic function is normal. The estimated ejection fraction is 64 %. Mild pulmonary hypertension. TAPSE of 2.3. Normal systolic function. Ordering Physician: Toy Lewis V Referring Physician: Alexi Morin Chi Performed By: Brodwolf, Sunny, RCS
== END | disposition home or self-care (01) ==
LOC: CVS 07:33
PROVIDERS: PCP Family Medicine Geriatric Medicine; Referring Provider Internal Medicine Pulmonary Disease; Visit Provider Internal Medicine Pulmonary Disease
DX: R06.02 Shortness of breath (principal)
CPT/HCPCS: 93306

== ENCOUNTER → 2023-10-15 | Outpatient (CLI) | payer MEDICARE, SELFPAY ==
[2022-06-16 15:20] VITALS: BMI 37.3
--- NOTE | 2023-10-15 16:46 | RAD_ITS ---
INDICATION: CHEST PAIN, UNSPECIFIED EXAMINATION/TECHNIQUE: X-RAY - XR Chest 2 Views COMPARISON: 08/14/2023 chest radiograph. Findings: Frontal and lateral views of the chest. LUNG PARENCHYMA: No acute focal airspace disease or mass lesion. PLEURA: No pleural effusion. No pneumothorax. HEART/GREAT VESSELS: Cardiomediastinal silhouette is unremarkable. BONES: Right humeral head orthopedic anchor. RAD/Chest PA and Lateral IMPRESSION: Chest with no acute disease. Electronically Signed: Bharat Carl MD at 5:55 EDT ,
[2023-10-15 18:19] LABS: Absolute Neutrophil Count 4.9 X10^3/uL (2.0-7.7); Basophil# 0.06 X10^3/uL; Basophil% 0.8 % (0-1); Eosinophil# 0.18 X10^3/uL; Eosinophils% 2.5 % (0-5); Hematocrit 31.3 % (37-47); Hemoglobin 8.8 g/dL (12.0-15.0); Mean Corp Hgb Conc 28.1 g/dL (32-36); Mean Corpuscular Hgb 21.6 pg (27.0-32.0); Mean Corpuscular Volume 76.7 fL (81-99); Mean Platelet Vol. 9.8 fl (6.2-12.0); Monocyte# 0.46 X10^3/uL; Monocyte% 6.3 % (0-10); NRBC Flagged by Analyzer 0 % (0-5); Neutrophil # 4.94 X10^3/uL (2.7-7.7); Neutrophil % 67.9 % (47-70); Platelet Count 398 K/mm3 (150-450); RBC Distribution Width CV 16.9 % (11.6-14.6); RBC Distribution Width SD 46.4 fl (35.1-43.9); Red Blood Count 4.08 M/mm3 (4.2-5.4); White Blood Count 7.3 K/mm3 (4.4-11.0)
[2023-10-15 18:29] LABS: BNP,B-Type NATRIURETIC PEPTIDE 112.4 pg/mL (0-100)
[2023-10-15 18:32] LABS: ALB/GLOB Ratio 0.8 RATIO (0.9-2.4); AST(SGOT) 20 U/L (15-37); Alanine Aminotransfer ALT/SGPT 19 U/L (13-56); Alkaline Phosphatase 105 U/L (45-117); Anion Gap 5 (5-15); BUN 25 mg/dL (7-18); BUN/Creat Ratio 22.3 RATIO (10-20); CPK Total, Creatine Kinase 89 U/L (26-192); Chloride 110 mmol/L (98-107); Creatinine, Serum 1.12 mg/dL (0.55-1.02); EST Glomerular Filtration Rate 50 mL/min (>60); Est Glom Filt Rate - Afr Amer 61 mL/min (>60); Glucose 99 mg/dL (74-106); Potassium 4.1 mmol/L (3.5-5.1); Sodium Level 142 mmol/L (136-145); Troponin-I HS 6 pg/mL (3.0-54.0)
[2023-10-17 08:12] LABS: Myoglobin, Serum 34 ng/mL (25-58)
== END | disposition home or self-care (01) ==
PROVIDERS: PCP Family Medicine Geriatric Medicine; Referring Provider Family Medicine Geriatric Medicine; Visit Provider Family Medicine Geriatric Medicine
DX: R07.9 Chest pain, unspecified (principal); I10 Essential (primary) hypertension; N39.0 Urinary tract infection, site not specified
CPT/HCPCS: 36415; 71046; 80053; 82550; 83874; 83880; 84484; 85025; 87086; 87088

== ENCOUNTER → 2023-10-23 | Outpatient (CLI) | payer MEDICARE, SELFPAY ==
[2022-06-16 15:20] VITALS: BMI 37.3
== END | disposition home or self-care (01) ==
LOC: LABSPEC 10:51
PROVIDERS: PCP Family Medicine Geriatric Medicine; Referring Provider Family Medicine Geriatric Medicine; Visit Provider Family Medicine Geriatric Medicine
DX: D64.9 Anemia, unspecified (principal)
CPT/HCPCS: 82274

== ENCOUNTER → 2023-11-01 | Outpatient (CLI) | payer MEDICARE, SELFPAY ==
[2022-06-16 15:20] VITALS: BMI 37.3
[2023-11-01 10:19] LABS: Absolute Lymphocyte Count 1.43 X10^3/uL (0.83-4.51); Basophil# 0.03 X10^3/uL; Basophil% 0.4 % (0-1); Eosinophil# 0.16 X10^3/uL; Eosinophils% 2.2 % (0-5); Hematocrit 28.4 % (37-47); Hemoglobin 8.2 g/dL (12.0-15.0); Lymphocyte # 1.43 X10^3/ul (0.83-4.51); Lymphocyte % 19.9 % (19-41); Mean Corp Hgb Conc 28.9 g/dL (32-36); Mean Corpuscular Hgb 21.6 pg (27.0-32.0); Mean Corpuscular Volume 74.7 fL (81-99); Mean Platelet Vol. 9.5 fl (6.2-12.0); Monocyte# 0.57 X10^3/uL; Monocyte% 7.9 % (0-10); NRBC Flagged by Analyzer 0 % (0-5); Neutrophil # 4.97 X10^3/uL (2.7-7.7); Neutrophil % 69.3 % (47-70); Platelet Count 465 K/mm3 (150-450); RBC Distribution Width SD 45.2 fl (35.1-43.9); White Blood Count 7.2 K/mm3 (4.4-11.0)
[2023-11-01 10:48] LABS: BNP,B-Type NATRIURETIC PEPTIDE 152.6 pg/mL (0-100)
[2023-11-01 10:50] LABS: AST(SGOT) 22 U/L (15-37); Alanine Aminotransfer ALT/SGPT 19 U/L (13-56); Albumin, Serum 2.9 g/dL (3.2-5.0); Alkaline Phosphatase 116 U/L (45-117); Anion Gap 4 (5-15); BUN 20 mg/dL (7-18); BUN/Creat Ratio 19.2 RATIO (10-20); Calcium,Total 8.8 mg/dL (8.5-10.1); Chloride 108 mmol/L (98-107); Cholesterol 181 mg/dL (200); Creatinine, Serum 1.04 mg/dL (0.55-1.02); EST Glomerular Filtration Rate 55 mL/min (>60); Est Glom Filt Rate - Afr Amer 66 mL/min (>60); Glucose 92 mg/dL (74-106); High Density Lipoprotein 42 mg/dL; Potassium 4.3 mmol/L (3.5-5.1); Protein, Total 6.9 g/dL (6.4-8.2); Sodium Level 141 mmol/L (136-145); Triglycerides 96 mg/dL; Very Low Density Lipoprotein 19 mg/dL (5-40)
== END | disposition home or self-care (01) ==
LOC: LAB 09:23
PROVIDERS: PCP Family Medicine Geriatric Medicine; Referring Provider Physician Assistant Medical; Visit Provider Physician Assistant Medical
DX: R06.00 Dyspnea, unspecified (principal); E78.00 Pure hypercholesterolemia, unspecified
CPT/HCPCS: 36415; 80048; 80061; 80076; 83880; 85025

== ENCOUNTER → 2023-11-08 | Outpatient (CLI) | payer MEDICARE, SELFPAY ==
[2022-06-16 15:20] VITALS: BMI 37.3
[2023-11-08 15:33] LABS: Absolute Lymphocyte Count 1.56 X10^3/uL (0.83-4.51); Absolute Neutrophil Count 5.3 X10^3/uL (2.0-7.7); Basophil# 0.04 X10^3/uL; Basophil% 0.5 % (0-1); Eosinophil# 0.13 X10^3/uL; Eosinophils% 1.7 % (0-5); Hematocrit 28.9 % (37-47); Hemoglobin 8.3 g/dL (12.0-15.0); Lymphocyte # 1.56 X10^3/ul (0.83-4.51); Lymphocyte % 20.8 % (19-41); Mean Corp Hgb Conc 28.7 g/dL (32-36); Mean Corpuscular Hgb 21.2 pg (27.0-32.0); Mean Corpuscular Volume 73.7 fL (81-99); Mean Platelet Vol. 9.4 fl (6.2-12.0); Monocyte# 0.49 X10^3/uL; Monocyte% 6.5 % (0-10); NRBC Flagged by Analyzer 0 % (0-5); Neutrophil # 5.25 X10^3/uL (2.7-7.7); Neutrophil % 70.1 % (47-70); Platelet Count 460 K/mm3 (150-450); RBC Distribution Width SD 44.9 fl (35.1-43.9); RET-HE 19.5 pg (30-35); Red Blood Count 3.92 M/mm3 (4.2-5.4); Reticulocyte Count 1.48 % (0.5-1.5); White Blood Count 7.5 K/mm3 (4.4-11.0)
[2023-11-08 16:02] LABS: Ferritin 5 ng/mL (8-252); Iron 18 ug/dL (50-170); Iron Binding Capacity,Total 463 ug/dL (250-450)
[2023-11-10 07:08] LABS: Haptoglobin 270 mg/dL (42-346)
== END | disposition home or self-care (01) ==
LOC: LAB 14:39
PROVIDERS: PCP Family Medicine Geriatric Medicine; Referring Provider Student in an Organized Health Care Education/Training Program; Visit Provider Student in an Organized Health Care Education/Training Program
DX: D64.9 Anemia, unspecified (principal)
CPT/HCPCS: 36415; 82728; 83010; 83540; 83550; 85025; 85045

== ENCOUNTER → 2023-11-16 | Outpatient (CLI) | payer MEDICARE, SELFPAY ==
[2022-06-16 15:20] VITALS: BMI 37.3
== END | disposition home or self-care (01) ==
LOC: LAB 13:19
PROVIDERS: PCP Family Medicine Geriatric Medicine; Referring Provider Internal Medicine Pulmonary Disease; Visit Provider Internal Medicine Pulmonary Disease
DX: I27.20 Pulmonary hypertension, unspecified (principal)
CPT/HCPCS: 83880

== ENCOUNTER 2023-11-21 08:06 | Day surgery (SDC) | payer MEDICARE, SELFPAY ==
[2022-06-16 15:20] VITALS: BMI 37.3
[2023-11-21] VITALS (8 sets, daily range): BP systolic 114–151; BP diastolic 69–102; PULSE 94–144; RESP 16; TEMP 36.1–36.4; O2SAT 94–98; BMI 41.3
--- NOTE | 2023-11-21 08:33 | PCM.PRE.AN2 ---
ASA Classification* ASA Classification ASA Classification: 3 Assessment & Plan Anesthesia* Anesthesia Assessment Anesthesia Assessment: Discussed sedation and/or anesthesia options, risks, benefits, and alternatives with patient/parents/legal guardian/POA. Questions invited. The patient/parents/legal guardian/POA seems to understand and agrees to proceed with anesthesia plan. Reviewed the physical assessment, medical history, allergy history and patient home medications list prior to surgery/procedure/anesthetic and documented any changes. Performed airway and anesthesia risk assessments. Anesthesia Type Anesthesia Type: MAC Anesthesia Focused Assessment* Airway Assessment Mouth opens: >3 cm Mallampati Score: II Focused Labs Anesthesia Preop lab: CBC WBC 7.5 K/mm3 (4.4-11.0) 11/08/23 14:41 RBC 3.92 M/mm3 (4.2-5.4) L 11/08/23 14:41 Hgb 8.3 g/dL (12.0-15.0) L 11/08/23 14:41 Hct 28.9 % (37-47) L 11/08/23 14:41 Plt Count 460 K/mm3 (150-450) H 11/08/23 14:41 CHEMISTRY Potassium 4.3 mmol/L (3.5-5.1) 11/01/23 09:29 Sodium 141 mmol/L (136-145) 11/01/23 09:29 Magnesium 2.5 mg/dL (1.6-2.6) 05/11/22 14:14 Phosphorus 2.7 mg/dL (2.5-4.9) 05/11/22 14:14 BUN 20 mg/dL (7-18) H 11/01/23 09:29 Creatinine 1.04 mg/dL (0.55-1.02) H 11/01/23 09:29 Glucose 92 mg/dL (74-106) 11/01/23 09:29 POC Glucose 85 mg/dL (70-110) 05/12/20 11:28 TSH 1.79 uIU/mL (0.358-3.74) 07/02/23 10:16 COAG PT 16.5 SECONDS (11.7-14.9) H 11/15/22 12:49 Pre-Assessment Diagnosis/Proposed Procedure Planned Operative Procedure(s): EGD, COLONOSCOPY Anesthesia History Anesthesia History - field operations coordinator: Anesthesia History - field operations coordinator Hx Hospitalization No 11/15/23 14:06 Any Problems With Anesthesia No 11/15/23 14:06 Cholinesterase deficiency No 11/15/23 14:06 You/Your Family Experience No 11/15/23 14:06 fever (hyperthermia) with Relationship Recent Exposure to Contagious No 02/06/23 14:18 Disease Does patient have nerve No 11/15/23 14:06 stimulator Patient instructed to have device shut off --Does patient have Pacemaker or ICD? When Was Last Pacemaker Check QUESTION #4 FULL TEXT: You/Your Family Experience fever (hyperthermia) with Anesthesia Last Oral Intake Last Oral intake: Last Oral Intake NPO since Meds taken in AM with sips of water? Meds patient instructed to take am of surgery PONV PONV - field operations coordinator: PONV - field operations coordinator Female Yes 11/15/23 14:06 HX of Motion Sickness No 11/15/23 14:06 HX of N/V After Surgery No 11/15/23 14:06 Non-Smoker No 11/15/23 14:06 Duration of Surgery greater No 11/15/23 14:06 than 60 minutes Number of Risk Factors 1 11/15/23 14:06 PONV Score Low Risk 11/15/23 14:06 Height & Weight Height & Weight: Anesthesia: Height & Weight Height 5 ft 11/01/23 10:00 Respiratory Assessment Respiratory Assessment - field operations coordinator: Respiratory Tract Infection Hx - field operations coordinator Hx Respiratory Tract Infection No 11/15/23 14:06 STOP Sleep Apnea STOP Sleep Apnea - field operations coordinator: STOP Sleep Apnea - field operations coordinator Hx Hypertension Yes 11/15/23 14:06 Hx Sleep Apnea No 11/15/23 14:06 CPAP No 02/06/23 15:19 BIPAP Do you snore loudly (louder Yes 11/15/23 14:06 than talking or can be heard Do you often feel tired/ Yes 11/15/23 14:06 fatigued/ sleepy during daytime? Has anyone observed you stop Yes 11/15/23 14:06 breathing during sleep? STOP Results Positive 11/15/23 14:06 QUESTION #5 FULL TEXT : Do you snore loudly (louder than talking or can be heard through closed doors)? Tobacco Use History Tobacco Use History - field operations coordinator: Tobacco Use History - field operations coordinator Tobacco Use Non-smoker 11/23/22 12:26 Smoking Status Never smoker 11/15/23 14:06 Hx Tobacco Use No 11/15/23 14:06 Years Smoking Packs Smoked per Day Smoking Cessation Date was within the last 15 years Hx Smoking Cessation Date Hx Smoking Cessation No 11/15/23 14:06 Counseling Hematologic Medial History Hematologic Hx - field operations coordinator: Hematologic Medical Hx - microbiology instructor Hx of Blood Transfusion No 11/15/23 14:06 Hx of Transfusion in last 3 No 11/15/23 14:06 Months Date of Last Transfusion (if within last 3 months) Ever experience any problems No 11/15/23 14:06 with transfusion(s)? Specify any problems Hx of Preganancy in last 3 No 11/15/23 14:06 Months Nurse Filling Out Transfusion [facility] 11/15/23 14:06 & Questions: Date: 11/15/23 11/15/23 14:06 Time: 14:09 11/15/23 14:06 Patient unable to answer at this time (ie. confused, unrespo /Reproduction History /Reproductive History - field operations coordinator: /Reproductive Hx- field operations coordinator Hx Now No 11/15/23 14:06 Gestational Age (in weeks): EDC: Hx Hx Para Hx Section SAB No 11/15/23 14:06 Active Medications Active Medications: Current Medications Generic Name Dose Route Start Last Admin Trade Name Freq PRN Reason Stop Dose Admin Lactated Ringer's 1,000 mls @ 15 mls/hr 11/21/23 08:30 IV .Q48H ANTONY PFSH Medical History Hoarseness Dyspnea Loss of hearing Post-menopausal Low iron Difficulty chewing Chronic cough Asthma correction current use of amiodarone Wears glasses Wears dentures Ambulates with cane High cholesterol History of hiatal hernia History of diverticulitis Shortness of breath on exertion Non-smoker Leg cramps History of Holter monitoring History of stress test Cardiology follow-up encounter Stable angina Shortness of breath Mass of soft tissue Chronic anticoagulation Iron deficiency anemia Esophageal stenosis History of left heart catheterization (LHC) (~07/22/21) Hypokalemia Bilateral edema of lower extremity Atrial fibrillation HTN (hypertension) Myocardial infarct Gastroesophageal reflux disease Depression Hyperlipidemia Osteoarthritis of knee Coronary artery disease Cardiac arrest Atherosclerosis of coronary artery of [place] heart without angina pectoris Neuropathy of right lower extremity Contusion of right lower leg, sequela Chronic venous insufficiency of lower extremity Incontinence Back pain Shoulder pain Hemorrhoids Vitamin deficiency Rheumatoid arthritis Cataracts, bilateral UTI (urinary tract infection) Bone fracture Breast lump in female History of back problems Arthritis Left breast lump Fibromyalgia Obesity Generalized osteoarthritis GERD (gastroesophageal reflux disease) Home Medications ?Medication ?Instructions ?Recorded ?Last Taken ?Type nitroglycerin 0.4 mg sublingual 0.4 mg sublingual Q5M PRN 12/05/20 11/08/22 Rx tablet Cardiac/Chest Pain #1 BOTTLE atorvastatin 40 mg tablet 40 mg PO QHS Cholestrol #90 tabs 01/16/22 11/21/22 Rx cholecalciferol (vitamin D3) 25 25 mcg PO DAILY SUPPLEMENT 02/28/22 11/22/22 History mcg (1,000 unit) tablet apixaban 5 mg tablet (Eliquis) 5 mg PO BID BLOOD THINNER #180 tabs 03/20/22 02/03/23 Rx potassium chloride 10 mEq 10 meq PO DAILY SUPPLEMENT 07/06/22 11/22/22 History tablet,extended release diazepam 2 mg tablet (Valium) 2 mg PO UD PRN dizziness or 11/23/22 Unknown Rx vertigo #20 tabs ondansetron HCl 4 mg tablet 4 mg PO Q6H PRN nausea and 11/23/22 Unknown Rx vomiting #15 tabs isosorbide mononitrate 60 mg 60 mg PO DAILY #90 tabs 01/04/23 02/06/23 Rx tablet,extended release 24 hr amiodarone 200 mg tablet 200 mg PO DAILY #90 tabs 05/03/23 Unknown Rx amlodipine 2.5 mg tablet 2.5 mg PO DAILY #90 tabs 10/01/23 Unknown Rx metoprolol succinate 25 mg 25 mg PO QHS #90 TABLETS 10/01/23 Unknown Rx tablet,extended release 24 hr buspirone 7.5 mg tablet 7.5 mg PO BID 11/01/23 Unknown History meclizine 25 mg tablet 25 mg PO DAILY PRN dizziness 11/01/23 Unknown History pantoprazole 40 mg tablet,delayed 40 mg PO BID 30 days #60 tabs 11/08/23 Unknown Rx release cranberry extract 500 mg capsule 500 mg PO DAILY 11/15/23 Unknown History vitamins A,C,C-[id number] 1 cap PO BID EYE HEALTH 11/15/23 Unknown History Allergy/AdvReac Type Severity Reaction Status Date / Time bee pollen Allergy Anaphylaxis Verified 11/15/23 13:36 latex Allergy Swelling Verified 11/15/23 13:36 morphine Allergy Other Verified 11/15/23 13:36 Penicillins Allergy Hives Verified 11/15/23 13:36 ranolazine AdvReac Intermediate Dizzy and Verified 11/15/23 13:36 Lightheaded hydrocodone bitartrate (From AdvReac Abd Verified 11/15/23 13:36 Vicodin) cramps/diarrhea Family History Father Diabetes Heart disease Hypertension CVA (cerebral vascular accident) Parkinson disease Mother Breast cancer Hypertension Grandmother Cancer pancreatic cancer Ovarian cancer Son Anesthesia complication Brother Asthma Arthritis Diabetes Respiratory disease Grandfather Lung cancer CVA (cerebral vascular accident) Surgical History History of cardiac catheterization History of coronary artery stent placement (11/16/20) Hematoma Hx of appendectomy History of cataract surgery History of left breast biopsy (~11/2017) history bilateral breast biopsies History of repair of right rotator cuff History of bilateral knee replacement History of hysterectomy History of laparoscopic cholecystectomy History of tonsillectomy and adenoidectomy Social History household members: spouse Smoking Status: Never smoker alcohol intake: never substance use type: does not use caffeine: Yes Type: carbonated beverages Number of servings: 1 and coffee Number of servings: 1 additional social history: DOES NOT USE IBUPROFEN Review of Systems (Anesthesia) ROS Narrative System reviewed and no additional complaints, except as documented.
[2023-11-21] MEDS: Lactated Ringers 1,000 ML 15 ML IV (08:46)
--- NOTE | 2023-11-21 08:48 | EKG12_ITS ---
Test Reason : PREOP Blood Pressure : / mmHG Vent. Rate : 107 BPM Atrial Rate : 300 BPM P-R Int : 000 ms QRS Dur : 072 ms QT Int : 372 ms P-R-T Axes : 000 -14 -14 degrees QTc Int : 496 ms Atrial flutter with variable A-V block Minimal voltage criteria for LVH, may be normal variant ( R in aVL ) Abnormal ECG When compared with ECG of 22-APR-2023 18:14, Atrial flutter has replaced Sinus rhythm Confirmed by ADELIA BENNETT, NAILA ([id number]), editor sound YIMI BRUNO ([id number]) on 11/23/2023 9:41:53 AM Referred By: Alexi Morin Confirmed By:GARFIELD DELVALLE MD
--- NOTE | 2023-11-21 09:12 | PCM.HP.BLA ---
History and Physical Date of Admission: 11/21/23 JIE HENRIQUEZ, is a 78 F who presents to the office today for f/u. Patient is following up today for an increase in fatigue, weakness, and lower extremity edema. She has an extensive cardiac hx including STEMI and cardiac arrest in 2020. She was found to be anemic with Hgb of 8.2 and had a FOBT+. Cardiology does not feel her increase in symptoms is cardiac related. Her last echo was 10/11/23 and she had an EF of 64%. She is holding her Eliquis for now. She also continues to have dysphagia and odynophagia. She feels her food gets stuck and will have to vomit. She still has heartburn even while taking pantoprazole 40 mg. She denies hematemesis, hematochezia, melena, diarrhea, constipation or abdominal pain. EGD 03/25/24: LA Grade C erosive esophagitis tx with heater probe, moderate Schatzki ring dilated, small hiatal hernia and gastric mucosal atrophy EGD 02/06/23: Abnormal esophageal motility suspicious for achalasia injected with Botox, and small hiatal hernia Last colonoscopy is unknown but per patient it was years ago - - ROS Const Constitutional: Positive for fatigue, headache(s), weakness and weight change; No fever(s) ENT ENT: Positive for headache(s) and difficulty swallowing Gastro GI: Positive for abdominal pain, bloating, heartburn, difficulty swallowing, excessive flatus, Blood in stool, nausea/dyspepsia and vomiting; No belching, change in bowel habits, change in stool character, coffee ground emesis, constipation, cramping, diarrhea, feeling full early, incontinent of stools, Vomiting blood/hematemesis, loose stools, Black,tarry stools, pain with swallowing or other Musc Musculoskeletal: Positive for abnormal gait, joint pain, back pain, joint swelling, numbness, tingling, Arthritis and sciatica Skin Skin: Positive for dry skin, lesions and itchy eyes; No yellowing of the eye Neuro Neurology: Positive for abnormal gait, weakness, headache(s), numbness, tingling and tremor(s) Psych Psychiatric: Positive for anxiety and No depression Endo Endocrine: Positive for fatigue and weight change Aller/Imm Allergy/Immunologic: Positive for itchy eyes Tad/Lymp Hematologic/Lymphatic: Positive for easy bleeding and easy bruising Exam Const General: cooperative and comfortable Nutritional Appearance: average body habitus and well nourished HENMT Head: normal to inspection Ears: hearing grossly normal bilaterally Nose: external nose normal Face and sinus: normal facial exam Mouth: oral mucosae normal Throat: posterior oropharynx normal Eyes General: appearance normal, both eyes and all related structures Neck Neck: normal visual inspection Chest Chest palpation & inspection: normal inspection of the chest and normal palpation of entire chest wall Resp Effort & Inspection: normal respiratory effort Auscultation: Bilateral: Clear to Auscultation Cardio Palpation: normal PMI Rate: regular rate Rhythm: regular rhythm GI Inspection: normal to inspection Auscultation: normal bowel sounds Percussion: normal to percussion Palpation: no hepatosplenomegaly Skin General: no rashes or lesions noted and ecchymosis Neuro General: patient alert Extrem General: normal to inspection, edema and pedal edema Psych Affect: normal affect Assessment and Plan Assessment and Plan (1) Anemia: Status: Acute Orders: Orders CBC W/Diff, Automated Today D64.9 - Anemia, unspecified Ferritin Today D64.9 - Anemia, unspecified Iron Today D64.9 - Anemia, unspecified Iron Binding Capacity,Total Today D64.9 - Anemia, unspecified Retic Panel Count Today D64.9 - Anemia, unspecified Haptoglobin Today D64.9 - Anemia, unspecified Medications: Changed From pantoprazole 40 mg PO DAILY 30 days 30 tabs 1RF To pantoprazole 40 mg PO BID 30 days 60 tabs 1RF Plan -Patient here for f/u. She was found to be anemic and +FOBT with an increase in fatigue, weakness and lower extremity swelling. EF 64% -Will order CBC and iron studies. She has no obvious signs of bleeding. Eliquis being held due to anemia -Schedule colonoscopy and EGD to rule out bleeding in the GI tract. She also continues to have dysphagia and odynophagia which will be assessed during EGD -Increased Pantoprazole to 40 mg BID for refractory reflux I have examined the patient and the H&P has been reviewed. There are no clinical changes since date of exam.
--- NOTE | 2023-11-21 10:22 | OP.EGD_ITS ---
Patient Name: Glory Moon Procedure Date: 11/21/2023 9:36 AM Date of : 1945 Age: 78 Procedure: Upper GI endoscopy Indications: Iron deficiency anemia Providers: Scotty Greenfield DO Referring MD: Alexi Morin MD Medicines: Monitored Anesthesia Care Patient Profile: This is a 78 year old female. Refer to note in patient chart for documentation of history and physical. Patient has symptoms. Complications: No immediate complications. Procedure: Pre-Anesthesia Assessment: - Prior to the procedure, a History and Physical was performed, and patient medications and allergies were reviewed. The patient is competent. The risks and benefits of the procedure and the sedation options and risks were discussed with the patient. All questions were answered and informed consent was obtained. Patient identification and proposed procedure were verified by the physician in the pre-procedure area. Mental Status Examination: alert and oriented. Airway Examination: normal oropharyngeal airway and neck mobility. Respiratory Examination: clear to auscultation. CV Examination: normal. Prophylactic Antibiotics: The patient does not require prophylactic antibiotics. Prior Anticoagulants: The patient has taken no anticoagulant or antiplatelet agents. ASA Grade Assessment: II - A patient with mild systemic disease. After reviewing the risks and benefits, the patient was deemed in satisfactory condition to undergo the procedure. The anesthesia plan was to use monitored anesthesia care (MAC). Immediately prior to administration of medications, the patient was re-assessed for adequacy to receive sedatives. The heart rate, respiratory rate, oxygen saturations, blood pressure, adequacy of pulmonary ventilation, and response to care were monitored throughout the procedure. The physical status of the patient was re-assessed after the procedure. After obtaining informed consent, the endoscope was passed under direct vision. Throughout the procedure, the patient's blood pressure, pulse, and oxygen saturations were monitored continuously. The Colonoscope was introduced through the mouth, and advanced to the second part of duodenum. The upper GI endoscopy was accomplished without difficulty. The patient tolerated the procedure well. Scope In: 9:47:08 AM Scope Out: 9:52:16 AM Total Procedure Duration Time 0 hours 5 minutes 8 seconds Findings: The examined esophagus was normal. A small hiatal hernia was present. Two 5 mm angiodysplastic lesions with bleeding were found in the third portion of the duodenum. Coagulation for hemostasis using heater probe was successful. Estimated blood loss was minimal. Impression: - Normal esophagus. - Small hiatal hernia. 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 Treated with a heater probe. - No specimens collected. Recommendation: - Discharge patient to home. - Resume regular diet. - Continue present medications. Procedure Code(s): --- Professional --- 69962, Esophagogastroduodenoscopy, flexible, transoral; with control of bleeding, any method CPT copyright 2021 [employer]. All rights reserved. The codes documented in this report are preliminary and upon licensed certified orthotist review may be revised to meet current compliance requirements. Scotty Greenfield DO 11/21/2023 10:22:11 AM This report has been signed electronically. Number of Addenda: 0 Note Initiated On: 11/21/2023 9:36 AM
--- NOTE | 2023-11-21 10:22 | PCM.POST.ANE ---
Anesthesia: Postop Eval I Current Vital Signs Temperature: 97.6 F Pulse Rate: 94 Blood Pressure: 130/72 Respiratory Rate: 16 Pulse Ox: 97 Oxygen Delivery Method: Room Air Assessment Airway patent: Yes Spontaneous unlabored respirations: Yes Mental status: Asleep nausea: No Vomiting: No Anesthesia Complication: No Fluid Hydration Crystalloid volume administer (ml): 800 Total IV fluid infused: 800 Progress Note Anesthesia document: Postop Eval 1 completed: Yes
--- NOTE | 2023-11-21 10:23 | OP.CCLET_ITS ---
11/21/2023 Alexi Morin MD [address] [place] [address] Re : Upper GI endoscopy procedure for Glory Sarai Dear Dr. Morin This procedure was performed on Tuesday, November 21, 2023. My impressions and recommendations are as follows: Impressions : - Normal esophagus. - Small hiatal hernia. 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 Treated with a heater probe. - No specimens collected. Recommendations : - Discharge patient to home. - Resume regular diet. - Continue present medications. My findings are described in the full procedure note, which is enclosed. If I can be of further assistance, please feel free to contact me at . Sincerely, Scotty Greenfield, 11/21/2023 10:22:11 AM This report has been signed electronically.
--- NOTE | 2023-11-21 10:26 | OP.COLON_ITS ---
Patient Name: Glory Moon Procedure Date: 11/21/2023 9:52 AM Date of : 1945 Age: 78 Procedure: Colonoscopy Indications: Iron deficiency anemia, Positive fecal immunochemical test Providers: Scotty Greenfield DO Referring MD: Alexi Morin MD Medicines: Monitored Anesthesia Care Patient Profile: This is a 78 year old female. Refer to note in patient chart for documentation of history and physical. Patient has symptoms. Last Colonoscopy: date unknown. Unable to locate last colonoscopy report. Complications: No immediate complications. Procedure: Pre-Anesthesia Assessment: - Prior to the procedure, a History and Physical was performed, and patient medications and allergies were reviewed. The patient is competent. The risks and benefits of the procedure and the sedation options and risks were discussed with the patient. All questions were answered and informed consent was obtained. Patient identification and proposed procedure were verified by the physician in the pre-procedure area. Mental Status Examination: alert and oriented. Airway Examination: normal oropharyngeal airway and neck mobility. Respiratory Examination: clear to auscultation. CV Examination: normal. Prophylactic Antibiotics: The patient does not require prophylactic antibiotics. Prior Anticoagulants: The patient has taken no anticoagulant or antiplatelet agents. ASA Grade Assessment: II - A patient with mild systemic disease. After reviewing the risks and benefits, the patient was deemed in satisfactory condition to undergo the procedure. The anesthesia plan was to use monitored anesthesia care (MAC). Immediately prior to administration of medications, the patient was re-assessed for adequacy to receive sedatives. The heart rate, respiratory rate, oxygen saturations, blood pressure, adequacy of pulmonary ventilation, and response to care were monitored throughout the procedure. The physical status of the patient was re-assessed after the procedure. After I obtained informed consent, the scope was passed under direct vision. Throughout the procedure, the patient's blood pressure, pulse, and oxygen saturations were monitored continuously. The Colonoscope was introduced through the anus and advanced to the cecum, identified by appendiceal orifice and ileocecal valve. The colonoscopy was performed without difficulty. The patient tolerated the procedure well. The quality of the bowel preparation was adequate. The ileocecal valve, appendiceal orifice, and rectum were photographed. Scope In: 9:54:15 AM Scope Withdrawal Time 0 hours 13 minutes 38 seconds Scope Out: 10:13:13 AM Total Procedure Duration Time 0 hours 18 minutes 58 seconds Findings: The perianal and digital rectal examinations were normal. Multiple large-mouthed diverticula were found in the recto-sigmoid colon, sigmoid colon and descending colon. Stool was found in the sigmoid colon, in the transverse colon and in the cecum. The exam was otherwise without abnormality on direct and retroflexion views. Impression: - Diverticulosis in the recto-sigmoid colon, in the sigmoid colon and in the descending colon. - Stool in the sigmoid colon, in the transverse colon and in the cecum. - The examination was otherwise normal on direct and retroflexion views. - No specimens collected. Recommendation: - Discharge patient to home. - Resume previous diet. - Continue present medications. - No repeat colonoscopy due to age. Procedure Code(s): --- Professional --- 16950, Colonoscopy, flexible; diagnostic, including collection of specimen(s) by brushing or washing, when performed (separate procedure) CPT copyright 2021 [employer]. All rights reserved. The codes documented in this report are preliminary and upon flume ride operator review may be revised to meet current compliance requirements. Scotty Greenfield DO 11/21/2023 10:26:16 AM This report has been signed electronically. Number of Addenda: 0 Note Initiated On: 11/21/2023 9:52 AM
--- NOTE | 2023-11-21 10:27 | OP.CCLET_ITS ---
11/21/2023 Alexi Morin MD [address] [place] [address] Re : Colonoscopy procedure for Glory Moon Dear Dr. Morin This procedure was performed on Tuesday, November 21, 2023. My impressions and recommendations are as follows: Impressions : - Diverticulosis in the recto-sigmoid colon, in the sigmoid colon and in the descending colon. - Stool in the sigmoid colon, in the transverse colon and in the cecum. - The examination was otherwise normal on direct and retroflexion views. - No specimens collected. Recommendations : - Discharge patient to home. - Resume previous diet. - Continue present medications. - No repeat colonoscopy due to age. My findings are described in the full procedure note, which is enclosed. If I can be of further assistance, please feel free to contact me at . Sincerely, Scotty Greenfield, 11/21/2023 10:26:16 AM This report has been signed electronically.
--- NOTE | 2023-11-21 11:42 | PCM.POSTANE2 ---
Anesthesia Postop Eval I Sum Postop Eval Completion status Anesthesia document: Postop Eval 1 completed: Yes Anesthesia Postop Eval I Summary Anesthesia Postop Eval I Summary: Anesthesia Postop Eval I: Assessment Summary Airway patent Yes 11/21/23 10:23 [email or web address] Spontaneous unlabored Yes 11/21/23 10:23 [email or web address] respirations Mental status Asleep 11/21/23 10:23 [email or web address] nausea No 11/21/23 10:23 [email or web address] Vomiting No 11/21/23 10:23 [email or web address] Anesthesia Postop Eval I: Fluid Summary Crystalloid volume administer 800 11/21/23 10:23 [email or web address] (ml) Colloids volume administered ( ml) Blood Product volume administered (ml) Total IV fluid infused 800 11/21/23 10:23 [email or web address] Anesthesia Postop Eval I: Summary Notes Anesthesia Complication No 11/21/23 10:23 [email or web address] Anesthesia Complication Comment: Post-operative progress note Anesthesia: Postop Eval II Evaluation Mental status: Awake Pain Level: 0 nausea: No Vomiting: No
== END 2023-11-21 11:17 | disposition home or self-care (01) ==
LOC: EN 08:09 → AC 08:09
PROVIDERS: PCP Family Medicine Geriatric Medicine; Referring Provider Family Medicine Geriatric Medicine; Visit Provider Internal Medicine Gastroenterology
PROC: 0DJD8ZZ Inspection of Lower Intestinal Tract, Via Natural or Artificial Opening Endoscopic (ICD-10-PCS; CPT 45378; principal; 2023-11-21 09:25)
DX: K44.9 Diaphragmatic hernia without obstruction or gangrene (principal); I48.0 Paroxysmal atrial fibrillation; K57.30 Diverticulosis of large intestine without perforation or abscess without bleeding; D50.9 Iron deficiency anemia, unspecified; I25.2 Old myocardial infarction; F41.9 Anxiety disorder, unspecified; I25.10 Atherosclerotic heart disease of native coronary artery without angina pectoris; I10 Essential (primary) hypertension; F32.A Depression, unspecified; E78.00 Pure hypercholesterolemia, unspecified; Z79.01 Long term (current) use of anticoagulants; Z79.899 Other long term (current) drug therapy; Z95.5 Presence of coronary angioplasty implant and graft
CPT/HCPCS: 43255; 45378; 93005; J7120; J2405

== ENCOUNTER → 2023-12-19 | Outpatient (CLI) | payer MEDICARE, SELFPAY ==
[2022-06-16 15:20] VITALS: BMI 37.3
[2023-12-19 10:16] LABS: Absolute Lymphocyte Count 1.47 X10^3/uL (0.83-4.51); Absolute Neutrophil Count 4.4 X10^3/uL (2.0-7.7); Basophil# 0.05 X10^3/uL; Basophil% 0.8 % (0-1); Eosinophil# 0.17 X10^3/uL; Eosinophils% 2.6 % (0-5); Hematocrit 29.9 % (37-47); Hemoglobin 8.3 g/dL (12.0-15.0); Lymphocyte # 1.47 X10^3/ul (0.83-4.51); Lymphocyte % 22.3 % (19-41); Mean Corp Hgb Conc 27.8 g/dL (32-36); Mean Corpuscular Hgb 19.6 pg (27.0-32.0); Mean Corpuscular Volume 70.5 fL (81-99); Mean Platelet Vol. 9.7 fl (6.2-12.0); Monocyte# 0.47 X10^3/uL; Monocyte% 7.1 % (0-10); NRBC Flagged by Analyzer 0 % (0-5); Neutrophil # 4.39 X10^3/uL (2.7-7.7); Neutrophil % 66.7 % (47-70); Platelet Count 450 K/mm3 (150-450); RBC Distribution Width CV 18.1 % (11.6-14.6); RBC Distribution Width SD 44.9 fl (35.1-43.9); Red Blood Count 4.24 M/mm3 (4.2-5.4); White Blood Count 6.6 K/mm3 (4.4-11.0)
--- NOTE | 2023-12-19 10:42 | RAD_ITS ---
EXAM: XR CHEST, 2 VIEWS CLINICAL INDICATION: PULM FIBROSIS TECHNIQUE: Frontal and lateral views of the chest. COMPARISON: 10/15/2023 FINDINGS: LUNGS AND PLEURAL SPACES: Unremarkable. No consolidation or edema. No pneumothorax. No effusion. HEART: Unremarkable. Cardiac silhouette not enlarged. MEDIASTINUM: Central airways and mediastinal contour are unremarkable. BONES/JOINTS: Unremarkable. No acute fracture. SOFT TISSUES: Unremarkable. RAD/Chest PA and Lateral IMPRESSION: No radiographic evidence of acute cardiopulmonary disease. Electronically Signed: Ren Pereira MD at 18:25 EDT ,
[2023-12-19 11:29] LABS: ALB/GLOB Ratio 0.7 RATIO (0.9-2.4); AST(SGOT) 23 U/L (15-37); Alanine Aminotransfer ALT/SGPT 15 U/L (13-56); Albumin, Serum 3.1 g/dL (3.2-5.0); Alkaline Phosphatase 117 U/L (45-117); Anion Gap 7 (5-15); BUN 21 mg/dL (7-18); BUN/Creat Ratio 18.1 RATIO (10-20); Calcium,Total 9.1 mg/dL (8.5-10.1); Chloride 109 mmol/L (98-107); Creatinine, Serum 1.16 mg/dL (0.55-1.02); EST Glomerular Filtration Rate 48 mL/min (>60); Est Glom Filt Rate - Afr Amer 58 mL/min (>60); Globulin 4.2 g/dL (2.2-4.2); Glucose 109 mg/dL (74-106); Potassium 3.9 mmol/L (3.5-5.1); Protein, Total 7.3 g/dL (6.4-8.2); Sodium Level 140 mmol/L (136-145)
[2023-12-19 17:22] LABS: BNP,B-Type NATRIURETIC PEPTIDE 127.3 pg/mL (0-100)
== END | disposition home or self-care (01) ==
PROVIDERS: PCP Family Medicine Geriatric Medicine; Referring Provider Family Medicine Geriatric Medicine; Visit Provider Family Medicine Geriatric Medicine
DX: J84.10 Pulmonary fibrosis, unspecified (principal); I10 Essential (primary) hypertension; E55.9 Vitamin D deficiency, unspecified; R06.02 Shortness of breath
CPT/HCPCS: 36415; 71046; 80053; 82306; 83880; 84443; 85025

== ENCOUNTER → 2024-01-03 | Outpatient (CLI) | payer MEDICARE, SELFPAY ==
[2022-06-16 15:20] VITALS: BMI 37.3
[2024-01-03 10:51] LABS: Hematocrit 30.4 % (37-47); Hemoglobin 8.5 g/dL (12.0-15.0)
[2024-01-03 11:13] LABS: BNP,B-Type NATRIURETIC PEPTIDE 166.5 pg/mL (0-100)
[2024-01-03 11:24] LABS: ALB/GLOB Ratio 0.7 RATIO (0.9-2.4); AST(SGOT) 21 U/L (15-37); Alanine Aminotransfer ALT/SGPT 17 U/L (13-56); Albumin, Serum 3.1 g/dL (3.2-5.0); Alkaline Phosphatase 120 U/L (45-117); Anion Gap 5 (5-15); BUN 17 mg/dL (7-18); BUN/Creat Ratio 16.8 RATIO (10-20); Calcium,Total 9.2 mg/dL (8.5-10.1); Chloride 108 mmol/L (98-107); Creatinine, Serum 1.01 mg/dL (0.55-1.02); EST Glomerular Filtration Rate 57 mL/min (>60); Est Glom Filt Rate - Afr Amer 68 mL/min (>60); Globulin 4.4 g/dL (2.2-4.2); Glucose 93 mg/dL (74-106); Potassium 3.7 mmol/L (3.5-5.1); Protein, Total 7.5 g/dL (6.4-8.2); Sodium Level 141 mmol/L (136-145)
== END | disposition home or self-care (01) ==
LOC: LAB 10:08
PROVIDERS: PCP Family Medicine Geriatric Medicine; Referring Provider Internal Medicine Cardiovascular Disease; Visit Provider Internal Medicine Cardiovascular Disease
DX: R06.09 Other forms of dyspnea (principal); E78.5 Hyperlipidemia, unspecified; R53.82 Chronic fatigue, unspecified; Z95.5 Presence of coronary angioplasty implant and graft; I10 Essential (primary) hypertension
CPT/HCPCS: 36415; 80053; 83880; 84443; 85014; 85018

== ENCOUNTER → 2024-01-09 | Outpatient (CLI) | payer MEDICARE, SELFPAY ==
[2022-06-16 15:20] VITALS: BMI 37.3
[2024-01-09 13:06] LABS: Anion Gap 5 (5-15); BUN 24 mg/dL (7-18); BUN/Creat Ratio 21.8 RATIO (10-20); Calcium,Total 9.2 mg/dL (8.5-10.1); Chloride 109 mmol/L (98-107); EST Glomerular Filtration Rate 51 mL/min (>60); Est Glom Filt Rate - Afr Amer 62 mL/min (>60); Glucose 87 mg/dL (74-106); Potassium 4.3 mmol/L (3.5-5.1); Sodium Level 141 mmol/L (136-145)
== END | disposition home or self-care (01) ==
LOC: LAB 11:48
PROVIDERS: PCP Family Medicine Geriatric Medicine; Referring Provider Internal Medicine Cardiovascular Disease; Visit Provider Internal Medicine Cardiovascular Disease
DX: R06.02 Shortness of breath (principal); D64.9 Anemia, unspecified
CPT/HCPCS: 36415; 80048

== ENCOUNTER 2024-01-18 11:09 | Emergency (ER) | payer MEDICARE, SELFPAY ==
[2022-06-16 15:20] VITALS: BMI 37.3
[2024-01-18 11:09] VITALS: BP 177/84; BP 199/100; PULSE 110; PULSE 80; RESP 18; TEMP 36.6; O2SAT 96; O2SAT 98; BMI 41.3
--- NOTE | 2024-01-18 11:43 | EKG12_ITS ---
Test Reason : NV Blood Pressure : / mmHG Vent. Rate : 074 BPM Atrial Rate : 000 BPM P-R Int : 000 ms QRS Dur : 070 ms QT Int : 390 ms P-R-T Axes : 000 -11 -27 degrees QTc Int : 432 ms Atrial fibrillation Nonspecific ST and T wave abnormality Abnormal ECG Confirmed by TEJAL BENNETT, AISHWARYA ([id number]), movie editor RITCHIE ALDRICH ([id number]) on 01/22/2024 2:13:44 PM Referred By: Confirmed By:AISHWARYA TOURE MD
--- NOTE | 2024-01-18 11:45 | RAD_ITS ---
STUDY: X-RAY CHEST REASON FOR EXAM: Female, 78 years old. Chest pain TECHNIQUE: Single AP portable view of the chest. COMPARISON: Comparison is made with prior study December 19, 2023. FINDINGS: EKG electrodes are seen. The lungs are clear and expanded. There is no demonstrated pleural abnormality. Normal size heart. Normal mediastinum and sung. Normal visualized pulmonary arteries. There is atherosclerotic tortuosity of the aortic arch and descending thoracic aorta. There are diffuse degenerative changes of the visualized thoracic spine. There is degenerative osteoarthritis of the bilateral shoulders. There is no demonstrated abnormality of the visualized soft tissue structures of the upper abdomen. RAD/Chest 1 View (Portable) IMPRESSION: No acute abnormality is seen. Electronically Signed: Peter Davidson MD at 11:59 EDT ,
[2024-01-18] MEDS: Ondansetron 4 MG/2 ML Vial IV (12:03)
[2024-01-18] MEDS: 0.9% Normal Saline (500mL Bag) 500 ML 999 ML IV (12:03)
--- NOTE | 2024-01-18 12:12 | EX.ED.DYSGE1 ---
HPI History of Present Illness Chief Complaint: Dizziness Informant: patient and spouse/S.O. Narrative Narrative: 78-year-old female feeling poorly for the past 3 days. Generalized malaise and weakness. No fevers or chills. She is having chest heaviness, and dizziness. She states the dizziness feels like faint lightheadedness, swimming, it is worse when she stands up but she has it when she is sitting or lying. Turning her head does not make a difference. She has a history of vertigo and states this does not feel like that. She was nauseated this morning, no vomiting, no diarrhea or abdominal pain. States she drinks water but feels like she may be dehydrated. She is not on a diuretic. She has leg edema that is similar to usual. She has chronic intermittent palpitations feeling her A-fib, but states that she had an episode that was worse today. She denies any acute cough or new dyspnea but chronically has dyspnea with walking and exertion. [facility] Medical History Iron deficiency anemia due to chronic blood loss Hoarseness Dyspnea Loss of hearing Post-menopausal Low iron Difficulty chewing Chronic cough Asthma [facility] current use of amiodarone Wears glasses Wears dentures Ambulates with cane High cholesterol History of hiatal hernia History of diverticulitis Shortness of breath on exertion Non-smoker Leg cramps History of Holter monitoring History of stress test Cardiology follow-up encounter Stable angina Shortness of breath Mass of soft tissue Chronic anticoagulation Iron deficiency anemia Esophageal stenosis History of left heart catheterization (LHC) (~07/22/21) Hypokalemia Bilateral edema of lower extremity Atrial fibrillation HTN (hypertension) Myocardial infarct Gastroesophageal reflux disease Depression Hyperlipidemia Osteoarthritis of knee Coronary artery disease Cardiac arrest Atherosclerosis of coronary artery of [place] heart without angina pectoris Neuropathy of right lower extremity Contusion of right lower leg, sequela Chronic venous insufficiency of lower extremity Incontinence Back pain Shoulder pain Hemorrhoids Vitamin deficiency Rheumatoid arthritis Cataracts, bilateral UTI (urinary tract infection) Bone fracture Breast lump in female History of back problems Arthritis Left breast lump Fibromyalgia Obesity Generalized osteoarthritis GERD (gastroesophageal reflux disease) Home Medications ?Medication ?Instructions ?Recorded ?Last Taken ?Type nitroglycerin 0.4 mg sublingual 0.4 mg sublingual Q5M PRN 12/05/20 11/08/22 Rx tablet Cardiac/Chest Pain #1 BOTTLE atorvastatin 40 mg tablet 40 mg PO QHS Cholestrol #90 tabs 01/16/22 11/21/22 Rx cholecalciferol (vitamin D3) 25 25 mcg PO DAILY SUPPLEMENT 02/28/22 11/22/22 History mcg (1,000 unit) tablet diazepam 2 mg tablet (Valium) 2 mg PO UD PRN dizziness or 11/23/22 Unknown Rx vertigo #20 tabs ondansetron HCl 4 mg tablet 4 mg PO Q6H PRN nausea and 11/23/22 Unknown Rx vomiting #15 tabs isosorbide mononitrate 60 mg 60 mg PO DAILY #90 tabs 01/04/23 02/06/23 Rx tablet,extended release 24 hr buspirone 7.5 mg tablet 7.5 mg PO BID 11/01/23 Unknown History meclizine 25 mg tablet 25 mg PO DAILY PRN dizziness 11/01/23 Unknown History pantoprazole 40 mg tablet,delayed 40 mg PO BID 30 days #60 tabs 11/08/23 Unknown Rx release cranberry extract 500 mg capsule 500 mg PO DAILY 11/15/23 Unknown History vitamins A,C,F-sttd-wgitlk 1 cap PO BID EYE HEALTH 11/15/23 Unknown History ascorbate calcium (vitamin C) 500 500 mg PO QDAY 12/27/23 Unknown History mg tablet methenamine hippurate 1 gram tablet 1 g PO BID 12/27/23 Unknown History omeprazole 20 mg capsule,delayed 20 mg PO QDAY 12/27/23 Unknown History release rosuvastatin 40 mg tablet 40 mg PO QDAY 12/27/23 Unknown History digoxin 250 mcg (0.25 mg) tablet 250 mcg PO QDAY #30 tabs 01/03/24 Unknown Rx furosemide 40 mg tablet (Lasix) 40 mg PO QDAY #30 tabs 01/03/24 Unknown Rx metoprolol succinate 100 mg 100 mg PO QDAY #30 tabs 01/03/24 Unknown Rx tablet,extended release 24 hr potassium chloride 20 mEq 20 meq PO QDAY #30 tabs 01/03/24 Unknown Rx tablet,extended release apixaban 2.5 mg tablet (Eliquis) 2.5 mg PO BID dose decreased #60 01/14/24 Unknown Rx tabs ciprofloxacin HCl 500 mg tablet 500 mg PO BID #10 TABLETS 01/18/24 Unknown Rx Allergy/AdvReac Type Severity Reaction Status Date / Time bee pollen Allergy Anaphylaxis Verified 01/18/24 11:10 latex Allergy Swelling Verified 01/18/24 11:10 morphine Allergy Other Verified 01/18/24 11:10 Penicillins Allergy Hives Verified 01/18/24 11:10 ranolazine AdvReac Intermediate Dizzy and Verified 01/18/24 11:10 Lightheaded hydrocodone bitartrate (From AdvReac Abd Verified 01/18/24 11:10 Vicodin) cramps/diarrhea Family History Father Diabetes Heart disease Hypertension CVA (cerebral vascular accident) Parkinson disease Mother Breast cancer Hypertension Grandmother Cancer pancreatic cancer Ovarian cancer Son Anesthesia complication Brother Asthma Arthritis Diabetes Respiratory disease Grandfather Lung cancer CVA (cerebral vascular accident) Surgical History History of tubal ligation History of cardiac catheterization History of coronary artery stent placement (11/16/20) Hematoma Hx of appendectomy History of cataract surgery History of left breast biopsy (~11/2017) history bilateral breast biopsies History of repair of right rotator cuff History of bilateral knee replacement History of hysterectomy History of laparoscopic cholecystectomy History of tonsillectomy and adenoidectomy Social History household members: spouse Smoking Status: Never smoker alcohol intake: never substance use type: does not use caffeine: Yes Type: carbonated beverages Number of servings: 1 and coffee Number of servings: 1 additional social history: DOES NOT USE IBUPROFEN ROS ROS ED Constitutional Constitutional ED: Reports fatigue and weakness; Denies chills or fever(s) Eyes Eyes: Denies change in vision or diplopia ENT ENT ED: Denies rhinorrhea or sore throat Cardiovascular Cardiovascular: Reports chest pain, palpitations and pedal edema Respiratory/Chest Respiratory/Chest: Reports dyspnea on exertion; Denies cough Gastrointestinal Gastrointestinal: Reports nausea; Denies abdominal pain, diarrhea or vomiting Genitourinary Genitourinary ED: Denies dysuria or hematuria Musculoskeletal Musculoskeletal: Denies back pain or neck pain Integumentary Denies abscess or rash Neurologic Neurologic: Denies headache(s), paresthesias or weakness Psychiatric Psychiatric: Denies suicidal thoughts EXAM Physical Exam Const Vital Signs: 01/18/24 11:09 01/18/24 11:09 01/18/24 11:30 Temperature 98 F Temperature Source Temporal Pulse Rate 80 110 H Respiratory Rate 18 18 Respiratory Effort Normal Non-Labored Blood Pressure 177/84 H 199/100 H Blood Pressure Mean 115 133 Pulse Ox 96 98 Oxygen Delivery Method Room Air Room Air 01/18/24 11:43 01/18/24 13:09 01/18/24 15:00 Temperature Temperature Source Pulse Rate 71 77 Respiratory Rate 16 16 Respiratory Effort Blood Pressure 177/72 H 156/78 H Blood Pressure Mean 107 104 Pulse Ox 93 94 Oxygen Delivery Method Room Air Room Air Room Air Positive well nourished, well developed and obese General Appearance ED: well developed and NAD Nutritional Appearance: obese HEENT Reports moist mucous membranes normocephalic and atraumatic Eyes PERRL and EOMs intact bilaterally Neck full ROM and supple Resp normal respiratory effort and clear to auscultation bilaterally Cardio Rate: Negative for tachycardic Rhythm: abnormal rhythm irregularly irregular GI non-distended GI Narrative: Mild suprapubic tenderness no guarding or rebound no other areas of tenderness. No Jose Armando sign. Auscultation: normoactive bowel sounds Palpation: soft Back/Spine no CVA tenderness General Back: other FROM Extremity normal to inspection General Extremety ED: Yes edema; Negative for pulses abnormal or tenderness General Extremity: edema bilateral lower extremity Details: moderate (Symmetric, with changes of chronic stasis dermatitis in both lower legs.); Negative for pulses abnormal Neuro oriented x3, CN's II-XII intact bilaterally and no sensory deficits noted Sensorium / Orientation: awake and alert Motor Exam: strength 5/5 throughout Skin no rashes or lesions noted and no wounds MDM MDM MDM Narrative Medical decision making narrative: Will get this patient some IV fluids in addition to some Zofran while running labs, chest x-ray, urinalysis to see if urinary tract infection is causing his symptoms. Does not sound vertiginous he is turns her head to both sides does not feel dizzy. 1 view chest x-ray my interpretation shows no pneumonia. Her labs are noted, her renal function and anemia appear stable. Her urinalysis does appear to be consistent with infection, which may explain her mild suprapubic tenderness and her dizziness and weakness. She does have rate controlled A-fib here, it is unremarkable other than atrial fibrillation on the EKG, but if that is racing [id number] at times that could also be contributing to her lightheadedness. I did 2 troponin measurements, they are similar with no significant change/delta, given the chest discomfort she was having. We gave her some fluids here, with ambulation she is feeling lightheaded but not near syncopal. I am sending her urine for culture. She is okay going home. I reviewed her last culture which showed E. coli sensitive to Bactrim so I gave her a dose of that but then when I went to prescribe it I received 3 different medication interaction warnings that I did not receive when I ordered her the dose, so instead of prescribing her Bactrim I am going to place her on 5 days of ciprofloxacin, to which the prior E. coli was also sensitive, and have her follow-up with her doctor as an outpatient. She is comfortable going home with this plan and prescription. History & Record Review Additional record(s) reviewed:: Prior outpatient record (Outpatient echo in September, good ejection fraction, pulmonary hypertension present and some tricuspid regurgitation; prior urine culture from September 2023) Lab Data Attestation: I reviewed the patient's lab results. Labs: Laboratory Results - last 24 hr 01/18/24 01/18/24 01/18/24 11:26 12:39 14:12 WBC 7.2 RBC 4.63 Hgb 9.1 L Hct 32.8 L MCV 70.8 L MCH 19.7 L MCHC 27.7 L RDW Std Deviation 46.4 H RDW Coeff of April 19.9 H Plt Count 418 MPV 10.1 Immature Gran % (Auto) 1.200 H Neut % (Auto) 66.2 Lymph % (Auto) 19.3 [place] % (Auto) 9.8 Eos % (Auto) 2.4 Baso % (Auto) 1.1 H Absolute Neuts (auto) 4.8 Absolute Lymphs (auto) 1.39 Nucleated RBC % 0.4 Sodium 141 Potassium 3.6 Chloride 106 Carbon Dioxide 30.0 Anion Gap 5 BUN 20 H Creatinine 1.33 H Estim Creat Clear Calc 37.30 Est GFR (MDRD) Af Amer 50 L Est GFR (MDRD) Non-Af 41 L BUN/Creatinine Ratio 15.0 Glucose 118 H Calcium 10.1 Troponin I High Sens 29 30 Urine Color Yellow Urine Clarity Sl. Cloudy Urine pH 6.0 Ur Specific [place] 1.025 Urine Protein 30 H Urine Glucose (UA) Normal Urine Ketones 5 H Urine Occult Blood 10 H Urine Nitrite Positive H Urine Bilirubin 1 H Urine Urobilinogen 1 H Ur Leukocyte Esterase 500 H Urine RBC 0 SEEN Urine WBC 25-50 SEEN Ur Squamous Epith Cells 5-10 SEEN Urine Bacteria 3+ Urine Mucus 0 SEEN Radiography Diagnostic Testing: Clinical Impression(s) from Imaging Studies Chest X-Ray 01/18/24 11:45 IMPRESSION: No acute abnormality is seen. Electronically Signed: Peter Davidson MD at 11:59 EDT , Rhythm Strip Rhythm Strip: A-fib Rate: 80 Ectopy: None EKG Initial EKG: Attestation: I personally reviewed and interpreted this EKG as follows: Interpretation: No Acute Injury Pattern (rate 70's) and Atrial Fibrillation Discharge Plan Triage Chief Complaint: Dizziness ED Provider: Praful Smith Dx/Rx/DC Orders Clinical Impression: Acute lower UTI, Chest pain, unspecified, Lightheadedness, Atrial fibrillation, CKD (chronic kidney disease) Instructions: UTIs Understanding, AFib Dc Prescriptions: New ciprofloxacin HCl 500 mg tablet 500 mg PO BID Qty: 10 0RF Continued isosorbide mononitrate 60 mg tablet extended release 24 hr 60 mg PO DAILY Qty: 90 3RF meclizine 25 mg tablet 25 mg PO DAILY PRN (Reason: dizziness) buspirone 7.5 mg tablet 7.5 mg PO BID pantoprazole 40 mg tablet,delayed release (DR/EC) 40 mg PO BID 30 Days Qty: 60 1RF furosemide [Lasix] 40 mg tablet 40 mg PO QDAY Qty: 30 3RF metoprolol succinate 100 mg tablet extended release 24 hr 100 mg PO QDAY Qty: 30 3RF digoxin 250 mcg (0.25 mg) tablet 250 mcg PO QDAY Qty: 30 3RF potassium chloride 20 mEq tablet extended release 20 meq PO QDAY Qty: 30 3RF ascorbate calcium (vitamin C) 500 mg tablet 500 mg PO QDAY omeprazole 20 mg capsule,delayed release(DR/EC) 20 mg PO QDAY rosuvastatin 40 mg tablet 40 mg PO QDAY cholecalciferol (vitamin D3) 25 mcg (1,000 unit) tablet 25 mcg PO DAILY nitroglycerin 0.4 mg Tablet, Sublingual 0.4 mg sublingual Q5M PRN (Reason: Cardiac/Chest Pain) Qty: 1 0RF diazepam [Valium] 2 mg tablet 2 mg PO UD PRN (Reason: dizziness or vertigo) Qty: 20 0RF Rx Instructions: 1 3-4 times a day for dizziness ondansetron HCl 4 mg tablet 4 mg PO Q6H PRN (Reason: nausea and vomiting) Qty: 15 0RF cranberry extract 500 mg capsule 500 mg PO DAILY Rx Instructions: administer with a meal vitamins A,C,[id number]-[id number] [PreserVision AREDS] 1 cap PO BID atorvastatin 40 mg tablet 40 mg PO QHS Qty: 90 3RF Eliquis 2.5 mg tablet 2.5 mg PO BID Qty: 60 11RF Held methenamine hippurate 1 gram tablet 1 g PO BID Hold Instructions: until finished with ciprofloxacin Primary Care Provider: Alexi Morin Chi Referrals: Alexi Morin Chi, MD [Primary Care Provider] - 3-5 Days if not improving Print Language: Hungarian Disposition Disposition: Home, Self Care
[2024-01-18 12:16] LABS: Absolute Lymphocyte Count 1.39 X10^3/uL (0.83-4.51); Absolute Neutrophil Count 4.8 X10^3/uL (2.0-7.7); Basophil# 0.08 X10^3/uL; Basophil% 1.1 % (0-1); Eosinophil# 0.17 X10^3/uL; Eosinophils% 2.4 % (0-5); Hematocrit 32.8 % (37-47); Hemoglobin 9.1 g/dL (12.0-15.0); Lymphocyte # 1.39 X10^3/ul (0.83-4.51); Lymphocyte % 19.3 % (19-41); Mean Corp Hgb Conc 27.7 g/dL (32-36); Mean Corpuscular Hgb 19.7 pg (27.0-32.0); Mean Corpuscular Volume 70.8 fL (81-99); Mean Platelet Vol. 10.1 fl (6.2-12.0); Monocyte# 0.71 X10^3/uL; Monocyte% 9.8 % (0-10); NRBC Flagged by Analyzer 0.4 % (0-5); Neutrophil # 4.78 X10^3/uL (2.7-7.7); Neutrophil % 66.2 % (47-70); Platelet Count 418 K/mm3 (150-450); RBC Distribution Width CV 19.9 % (11.6-14.6); RBC Distribution Width SD 46.4 fl (35.1-43.9); Red Blood Count 4.63 M/mm3 (4.2-5.4); White Blood Count 7.2 K/mm3 (4.4-11.0)
[2024-01-18 12:29] LABS: Anion Gap 5 (5-15); BUN 20 mg/dL (7-18); Calcium,Total 10.1 mg/dL (8.5-10.1); Chloride 106 mmol/L (98-107); Creatinine, Serum 1.33 mg/dL (0.55-1.02); EST Glomerular Filtration Rate 41 mL/min (>60); Est Glom Filt Rate - Afr Amer 50 mL/min (>60); Glucose 118 mg/dL (74-106); Potassium 3.6 mmol/L (3.5-5.1); Sodium Level 141 mmol/L (136-145); Troponin-I HS (w/2H Reflex) 29 pg/mL (3.0-54.0)
[2024-01-18 12:44] LABS: Mucous, Urine 0 SEEN /hpf (<or=2+); Red Blood Cells-Urine 0 SEEN /hpf (0-5)
[2024-01-18 13:06] LABS: Color, Urine Yellow (Yellow); Glucose, Dipstick Normal (Normal); Ketone-Dipstick 5 mg/dl (Negative); Leukocyte Esterase-Dipstick 500 /ul (Negative); Nitrite-Dipstick Positive (Negative); Occult Blood-Urine 10 /ul (Negative); Protein-Dipstick 30 mg/dl (Negative); Specific Gravity, Urine 1.025 (1.002-1.030); Urine Bilirubin Dipstick 1 mg/dL (Negative); Urine Clarity Sl. Cloudy (Clear); Urine Urobilinogen 1 mg/dl (Normal)
[2024-01-18 13:09] VITALS: BP 177/72; PULSE 71; RESP 16; O2SAT 93
[2024-01-18 13:27] LABS: Bacteria 3+ /hpf (None Seen); Squamous Epithelial Cells - UA 5-10 SEEN /hpf (5-10)
[2024-01-18 13:28] LABS: White Blood Cells 25-50 SEEN /hpf (0-5)
[2024-01-18 13:59] LABS: Reflex Troponin-HS? (from REC) Y
[2024-01-18 15:00] VITALS: BP 156/78; PULSE 77; RESP 16; O2SAT 94
[2024-01-18 15:04] LABS: Troponin-I HS 30 pg/mL (3.0-54.0)
[2024-01-18] MEDS: Acetaminophen 325 MG Tablet 650 MG PO (15:22)
[2024-01-18] MEDS: Smz/Tmp Ds Tablet 1 TABLET PO (15:22)
[2024-01-18 16:06] VITALS: BP 168/67; PULSE 70; RESP 15; TEMP 36.1; O2SAT 98
== END 2024-01-18 16:11 | disposition home or self-care (01) ==
PROVIDERS: Emergency Provider Emergency Medicine; PCP Family Medicine Geriatric Medicine; Visit Provider Emergency Medicine
DX: N39.0 Urinary tract infection, site not specified (principal); I48.91 Unspecified atrial fibrillation; Z90.710 Acquired absence of both cervix and uterus; I25.10 Atherosclerotic heart disease of native coronary artery without angina pectoris; N18.9 Chronic kidney disease, unspecified; R42 Dizziness and giddiness; I12.9 Hypertensive chronic kidney disease with stage 1 through stage 4 chronic kidney disease, or unspecified chronic kidney disease; E78.5 Hyperlipidemia, unspecified; B96.20 Unspecified Escherichia coli [E. coli] as the cause of diseases classified elsewhere; R07.9 Chest pain, unspecified; E66.9 Obesity, unspecified; R11.0 Nausea; R06.09 Other forms of dyspnea; Z90.49 Acquired absence of other specified parts of digestive tract; Z95.5 Presence of coronary angioplasty implant and graft; Z98.51 Tubal ligation status; K21.9 Gastro-esophageal reflux disease without esophagitis; Z87.440 Personal history of urinary (tract) infections; I25.2 Old myocardial infarction; Z86.74 Personal history of sudden cardiac arrest
CPT/HCPCS: 71045; 80048; 81001; 84484; 85025; 87077; 87086; 87088; 87186; 93005; 96361; 96374; 99285; J7030; A4216; J2405

== ENCOUNTER → 2024-01-21 | Outpatient (CLI) | payer MEDICARE, SELFPAY ==
[2022-06-16 15:20] VITALS: BMI 37.3
[2024-01-21 12:43] LABS: Absolute Lymphocyte Count 1.56 X10^3/uL (0.83-4.51); Absolute Neutrophil Count 4.5 X10^3/uL (2.0-7.7); Basophil# 0.06 X10^3/uL; Basophil% 0.9 % (0-1); Eosinophil# 0.25 X10^3/uL; Eosinophils% 3.6 % (0-5); Hematocrit 33.4 % (37-47); Hemoglobin 9.3 g/dL (12.0-15.0); Lymphocyte # 1.56 X10^3/ul (0.83-4.51); Lymphocyte % 22.3 % (19-41); Mean Corp Hgb Conc 27.8 g/dL (32-36); Mean Corpuscular Hgb 20.3 pg (27.0-32.0); Mean Corpuscular Volume 72.9 fL (81-99); Mean Platelet Vol. 10.1 fl (6.2-12.0); Monocyte# 0.57 X10^3/uL; Monocyte% 8.1 % (0-10); NRBC Flagged by Analyzer 0 % (0-5); Neutrophil # 4.53 X10^3/uL (2.7-7.7); Neutrophil % 64.7 % (47-70); POSITIVE MORPHOLOGY YES; Platelet Count 402 K/mm3 (150-450); RBC Distribution Width CV 21.9 % (11.6-14.6); RBC Distribution Width SD 48.4 fl (35.1-43.9); Red Blood Count 4.58 M/mm3 (4.2-5.4)
[2024-01-21 12:46] LABS: Differential Indicated SCAN CRITERIA MET
[2024-01-21 13:36] LABS: Anisocytosis 2+; Atypical Lymphocyte 1+ %
[2024-01-21 13:40] LABS: ALB/GLOB Ratio 0.7 RATIO (0.9-2.4); AST(SGOT) 39 U/L (15-37); Alanine Aminotransfer ALT/SGPT 28 U/L (13-56); Albumin, Serum 3.2 g/dL (3.2-5.0); Alkaline Phosphatase 126 U/L (45-117); Anion Gap 7 (5-15); BUN 18 mg/dL (7-18); BUN/Creat Ratio 13.2 RATIO (10-20); Calcium,Total 9.5 mg/dL (8.5-10.1); Chloride 106 mmol/L (98-107); Creatinine, Serum 1.36 mg/dL (0.55-1.02); EST Glomerular Filtration Rate 40 mL/min (>60); Est Glom Filt Rate - Afr Amer 49 mL/min (>60); Globulin 4.3 g/dL (2.2-4.2); Glucose 125 mg/dL (74-106); Potassium 3.8 mmol/L (3.5-5.1); Protein, Total 7.5 g/dL (6.4-8.2); Sodium Level 142 mmol/L (136-145)
[2024-01-21 22:21] LABS: International Normalized Ratio 1.3; Prothrombin Time (Protime)PT. 16.4 SECONDS (11.7-14.9)
== END | disposition home or self-care (01) ==
LOC: POLAB3 12:05
PROVIDERS: Internal Medicine Cardiovascular Disease; PCP Family Medicine Geriatric Medicine; Visit Provider Family Medicine Geriatric Medicine
DX: I10 Essential (primary) hypertension (principal); R68.83 Chills (without fever)
CPT/HCPCS: 36415; 80053; 85025; 85610; 87631

== ENCOUNTER 2024-01-25 10:02 | Emergency (ER) | payer MEDICARE, SELFPAY ==
[2022-06-16 15:20] VITALS: BMI 37.3
[2024-01-25 10:03] VITALS: BP 148/77; PULSE 45; RESP 16; TEMP 37.1; O2SAT 97; BMI 40.6
[2024-01-25 10:07] VITALS: BP 148/77; PULSE 79; RESP 15; TEMP 37.1; O2SAT 96
--- NOTE | 2024-01-25 10:51 | EDS_ITS ---
HPI History of Present Illness Chief Complaint: Dizziness Informant: patient Narrative Narrative: 78-year-old female presenting to the emergency room with chief complaint of dizziness and nausea. Patient states that she has a history of atrial fibrillation. She states that she is felt poorly all week and has had nausea. She states that yesterday she had 7 episodes of vomiting but no vomiting yet today. She states that she tried some Zofran this morning with no relief. Patient denies any new medications or change in dosing of her medicines. She denies any fevers chills. No diarrhea or urinary symptoms. By dizziness she feels more lightheaded. No chest pain shortness of breath or cough. She denies any abdominal pain but does note that her upper abdomen feels swollen. She states that she feels very shaky this morning [facility] Medical History Iron deficiency anemia due to chronic blood loss Hoarseness Dyspnea Loss of hearing Post-menopausal Low iron Difficulty chewing Chronic cough Asthma jail current use of amiodarone Wears glasses Wears dentures Ambulates with cane High cholesterol History of hiatal hernia History of diverticulitis Shortness of breath on exertion Non-smoker Leg cramps History of Holter monitoring History of stress test Cardiology follow-up encounter Stable angina Shortness of breath Mass of soft tissue Chronic anticoagulation Iron deficiency anemia Esophageal stenosis History of left heart catheterization (LHC) (~07/22/21) Hypokalemia Bilateral edema of lower extremity Atrial fibrillation HTN (hypertension) Myocardial infarct Gastroesophageal reflux disease Depression Hyperlipidemia Osteoarthritis of knee Coronary artery disease Cardiac arrest Atherosclerosis of coronary artery of elem heart without angina pectoris Neuropathy of right lower extremity Contusion of right lower leg, sequela Chronic venous insufficiency of lower extremity Incontinence Back pain Shoulder pain Hemorrhoids Vitamin deficiency Rheumatoid arthritis Cataracts, bilateral UTI (urinary tract infection) Bone fracture Breast lump in female History of back problems Arthritis Left breast lump Fibromyalgia Obesity Generalized osteoarthritis GERD (gastroesophageal reflux disease) Home Medications ?Medication ?Instructions ?Recorded ?Last Taken ?Type nitroglycerin 0.4 mg sublingual 0.4 mg sublingual Q5M PRN 12/05/20 11/08/22 Rx tablet Cardiac/Chest Pain #1 BOTTLE atorvastatin 40 mg tablet 40 mg PO QHS Cholestrol #90 tabs 01/16/22 11/21/22 Rx cholecalciferol (vitamin D3) 25 25 mcg PO DAILY SUPPLEMENT 02/28/22 11/22/22 History mcg (1,000 unit) tablet diazepam 2 mg tablet (Valium) 2 mg PO UD PRN dizziness or 11/23/22 Unknown Rx vertigo #20 tabs ondansetron HCl 4 mg tablet 4 mg PO Q6H PRN nausea and 11/23/22 Unknown Rx vomiting #15 tabs isosorbide mononitrate 60 mg 60 mg PO DAILY #90 tabs 01/04/23 02/06/23 Rx tablet,extended release 24 hr buspirone 7.5 mg tablet 7.5 mg PO BID 11/01/23 Unknown History meclizine 25 mg tablet 25 mg PO DAILY PRN dizziness 11/01/23 Unknown History cranberry extract 500 mg capsule 500 mg PO DAILY 11/15/23 Unknown History vitamins A,C,A-tsjq-tgypjh 1 cap PO BID EYE HEALTH 11/15/23 Unknown History ascorbate calcium (vitamin C) 500 500 mg PO QDAY 12/27/23 Unknown History mg tablet methenamine hippurate 1 gram tablet 1 g PO BID 12/27/23 Unknown History omeprazole 20 mg capsule,delayed 20 mg PO QDAY 12/27/23 Unknown History release rosuvastatin 40 mg tablet 40 mg PO QDAY 12/27/23 Unknown History digoxin 250 mcg (0.25 mg) tablet 250 mcg PO QDAY #30 tabs 01/03/24 Unknown Rx furosemide 40 mg tablet (Lasix) 40 mg PO QDAY #30 tabs 01/03/24 Unknown Rx metoprolol succinate 100 mg 100 mg PO QDAY #30 tabs 01/03/24 Unknown Rx tablet,extended release 24 hr potassium chloride 20 mEq 20 meq PO QDAY #30 tabs 01/03/24 Unknown Rx tablet,extended release apixaban 2.5 mg tablet (Eliquis) 2.5 mg PO BID dose decreased #60 01/14/24 Unknown Rx tabs ciprofloxacin HCl 500 mg tablet 500 mg PO BID #10 TABLETS 01/18/24 Unknown Rx pantoprazole 40 mg tablet,delayed 40 mg PO DAILY #30 TABLETS 01/22/24 Unknown Rx release Allergy/AdvReac Type Severity Reaction Status Date / Time bee pollen Allergy Anaphylaxis Verified 01/25/24 10:06 latex Allergy Swelling Verified 01/25/24 10:06 morphine Allergy Other Verified 01/25/24 10:06 Penicillins Allergy Hives Verified 01/25/24 10:06 ranolazine AdvReac Intermediate Dizzy and Verified 01/25/24 10:06 Lightheaded hydrocodone bitartrate (From AdvReac Abd Verified 01/25/24 10:06 Vicodin) cramps/diarrhea Family History Father Diabetes Heart disease Hypertension CVA (cerebral vascular accident) Parkinson disease Mother Breast cancer Hypertension Grandmother Cancer pancreatic cancer Ovarian cancer Son Anesthesia complication Brother Asthma Arthritis Diabetes Respiratory disease Grandfather Lung cancer CVA (cerebral vascular accident) Surgical History History of tubal ligation History of cardiac catheterization History of coronary artery stent placement (11/16/20) Hematoma Hx of appendectomy History of cataract surgery History of left breast biopsy (~11/2017) history bilateral breast biopsies History of repair of right rotator cuff History of bilateral knee replacement History of hysterectomy History of laparoscopic cholecystectomy History of tonsillectomy and adenoidectomy Social History household members: spouse Smoking Status: Never smoker alcohol intake: never substance use type: does not use caffeine: Yes Type: carbonated beverages Number of servings: 1 and coffee Number of servings: 1 additional social history: DOES NOT USE IBUPROFEN ROS ROS ED ROS Narrative Lightheadedness (dizziness) Constitutional Constitutional ED: Denies chills or weight loss Eyes Eyes: Denies change in vision or diplopia ENT ENT ED: Denies ear pain, rhinorrhea or sore throat Cardiovascular Cardiovascular: Denies chest pain, orthopnea, palpitations or racing heartbeat Respiratory/Chest Respiratory/Chest: Denies cough, dyspnea or orthopnea Gastrointestinal Gastrointestinal: Reports nausea, vomiting and other Details: See history of present illness ; Denies abdominal pain or diarrhea Genitourinary Genitourinary ED: Denies dysuria, hematuria or urinary frequency Musculoskeletal Musculoskeletal: Denies arthralgias or myalgias Integumentary Denies abscess or rash Neurologic Neurologic: Denies headache(s) or weakness Psychiatric Psychiatric: Denies anxiety, depression, suicidal ideation or suicidal thoughts Endocrine Endocrinology: Denies polydipsia, polyphagia or polyuria Allergic/Immunologic Allergic/Immunologic ED: Denies mouth swelling, tongue swelling or urticaria EXAM Physical Exam Const Vital Signs: 01/25/24 10:03 01/25/24 10:07 01/25/24 12:02 Temperature 98.7 F 98.7 F Temperature Source Oral Oral Pulse Rate 45 L 79 68 Respiratory Rate 16 15 14 Blood Pressure 148/77 H 148/77 H 120/66 Blood Pressure Mean 100 100 84 Pulse Ox 97 96 96 Oxygen Delivery Method Room Air Room Air Room Air Positive well nourished, well developed and obese General Appearance ED: well developed Nutritional Appearance: obese HEENT Reports normocephalic, head/scalp atraumatic and moist mucous membranes Eyes PERRL and EOMs intact bilaterally Neck no lymphadenopathy, supple and no JVD Resp normal respiratory effort and clear to auscultation bilaterally Cardio regular rate, regular rhythm and no murmurs GI normal to inspection, nondistended, normoactive bowel sounds GI Narrative: Mild tenderness to palpation in the epigastrium without guarding or rebound Auscultation: normoactive bowel sounds Palpation: soft; Negative for guarding or rebound tenderness present Back/Spine no CVA tenderness and normal ROM Extremity normal to inspection General Extremety ED: Negative for edema General Extremity: Negative for edema Neuro oriented x3 and CN's II-XII intact bilaterally Sensorium / Orientation: alert Motor Exam: strength 5/5 throughout Psych mental status grossly normal Mood & Affect: anxious; Negative for depressed or tearful Skin no rashes or lesions noted and no wounds MDM MDM MDM Narrative Medical decision making narrative: Differential diagnosis includes but not limited to dehydration viral syndrome volvulus small bowel obstruction pancreatitis choledocholithiasis White count 6.7 hemoglobin is 10 platelet count of 346 creatinine 1.38 with a BUN of 13 potassium 3.1 glucose 145 normal LFTs normal lipase urinalysis no o vert infection digoxin level 1.57. CT of the abdomen pelvis did not demonstrate any bowel obstruction or obvious inflammation. Patient received oral potassium. She received a dose of Zofran. She remains hemodynamically stable. No vomiting. When discharge her home she does have Zofran already at home. Fast that if her symptoms persist through the weekend that she follow-up with her doctor next week or return here if worsening. History & Record Review Discussion w/independent historian: Patient and Significant other Lab Data Attestation: I reviewed the patient's lab results. Labs: Laboratory Results - last 24 hr 01/25/24 01/25/24 01/25/24 10:30 11:10 11:40 WBC 6.7 RBC 4.92 Hgb 10.0 L Hct 36.0 L MCV 73.2 L MCH 20.3 L MCHC 27.8 L RDW Std Deviation 51.8 H RDW Coeff of April 23.4 H Plt Count 346 MPV 10.3 Immature Gran % (Auto) 0.700 Neut % (Auto) 68.6 Lymph % (Auto) 17.8 L [place] % (Auto) 9.4 Eos % (Auto) 2.5 Baso % (Auto) 1.0 Absolute Neuts (auto) 4.6 Absolute Lymphs (auto) 1.19 Nucleated RBC % 0.4 Platelet Estimate ADEQUATE Polychromasia 1+ Anisocytosis 3+ Microcytosis 2+ Macrocytosis 1+ Tear Drop Cells 1+ Ovalocytes 1+ Acanthocytes (Spur) RARE Schistocytes RARE Sodium 140 Potassium 3.1 L Chloride 102 Carbon Dioxide 30.0 Anion Gap 8 BUN 13 Creatinine 1.38 H Estim Creat Clear Calc 35.61 Est GFR (MDRD) Af Amer 48 L Est GFR (MDRD) Non-Af 39 L BUN/Creatinine Ratio 9.4 L Glucose 145 H Calcium 9.5 Total Bilirubin 0.90 Direct Bilirubin 0.24 AST 33 ALT 27 Alkaline Phosphatase 113 Total Protein 7.3 Albumin 3.1 L Globulin 4.2 Lipase 37 Urine Color Yellow Urine Clarity Clear Urine pH 6.0 Ur Specific [place] 1.015 Urine Protein 30 H Urine Glucose (UA) Normal Urine Ketones Negative Urine Occult Blood 250 H Urine Nitrite Negative Urine Bilirubin Negative Urine Urobilinogen 4 H Ur Leukocyte Esterase 25 H Urine RBC 0 SEEN Urine WBC 0-5 SEEN Ur Squamous Epith Cells 0-5 SEEN Urine Bacteria 0 SEEN Urine Mucus 0 SEEN Digoxin 1.57 Radiography Diagnostic Testing: Clinical Impression(s) from Imaging Studies Abdomen/Pelvis CT 01/25/24 13:16 IMPRESSION: Sigmoid diverticulosis. Status post cholecystectomy. Electronically Signed: Peter Davidson MD at 14:11 EDT , EKG Initial EKG: Attestation: I personally reviewed and interpreted this EKG as follows: Comments: Sinus rhythm with PACs at a ventricular rate of 79 bpm Discharge Plan Triage Chief Complaint: Dizziness ED Provider: Jung Fontaine Dx/Rx/DC Orders Clinical Impression: Nausea & vomiting, Acute hypokalemia Instructions: ED Vomiting (Adult) Prescriptions: No Action isosorbide mononitrate 60 mg tablet extended release 24 hr 60 mg PO DAILY Qty: 90 3RF meclizine 25 mg tablet 25 mg PO DAILY PRN (Reason: dizziness) buspirone 7.5 mg tablet 7.5 mg PO BID furosemide [Lasix] 40 mg tablet 40 mg PO QDAY Qty: 30 3RF metoprolol succinate 100 mg tablet extended release 24 hr 100 mg PO QDAY Qty: 30 3RF digoxin 250 mcg (0.25 mg) tablet 250 mcg PO QDAY Qty: 30 3RF potassium chloride 20 mEq tablet extended release 20 meq PO QDAY Qty: 30 3RF methenamine hippurate 1 gram tablet 1 g PO BID ascorbate calcium (vitamin C) 500 mg tablet 500 mg PO QDAY omeprazole 20 mg capsule,delayed release(DR/EC) 20 mg PO QDAY rosuvastatin 40 mg tablet 40 mg PO QDAY cholecalciferol (vitamin D3) 25 mcg (1,000 unit) tablet 25 mcg PO DAILY nitroglycerin 0.4 mg Tablet, Sublingual 0.4 mg sublingual Q5M PRN (Reason: Cardiac/Chest Pain) Qty: 1 0RF diazepam [Valium] 2 mg tablet 2 mg PO UD PRN (Reason: dizziness or vertigo) Qty: 20 0RF Rx Instructions: 1 3-4 times a day for dizziness ondansetron HCl 4 mg tablet 4 mg PO Q6H PRN (Reason: nausea and vomiting) Qty: 15 0RF cranberry extract 500 mg capsule 500 mg PO DAILY Rx Instructions: administer with a meal vitamins A,C,G-gsrl-qptldr [PreserVision AREDS] 1 cap PO BID ciprofloxacin HCl 500 mg tablet 500 mg PO BID Qty: 10 0RF atorvastatin 40 mg tablet 40 mg PO QHS Qty: 90 3RF Eliquis 2.5 mg tablet 2.5 mg PO BID Qty: 60 11RF pantoprazole 40 mg tablet,delayed release (DR/EC) 40 mg PO DAILY Qty: 30 9RF Primary Care Provider: Alexi Morin Chi Referrals: Alexi Morin Chi, MD [Primary Care Provider] - 3-5 Days if not improving Print Language: Tajik Disposition Disposition: Home, Self Care
--- NOTE | 2024-01-25 10:54 | EKG12_ITS ---
Test Reason : PALPS Blood Pressure : / mmHG Vent. Rate : 079 BPM Atrial Rate : 079 BPM P-R Int : 200 ms QRS Dur : 076 ms QT Int : 428 ms P-R-T Axes : 068 -07 -29 degrees QTc Int : 490 ms Sinus rhythm with Premature supraventricular complexes Nonspecific ST abnormality Abnormal ECG Confirmed by TEJAL BENNETT, AISHWARYA ([id number]), deputy editor in chief YIMI BRUNO ([id number]) on 01/29/2024 10:16:07 AM Referred By: LUCIE Confirmed By:AISHWARYA TOURE MD
[2024-01-25] MEDS: Ondansetron 4 MG/2 ML Vial IV (11:06)
[2024-01-25 11:17] LABS: Absolute Lymphocyte Count 1.19 X10^3/uL (0.83-4.51); Absolute Neutrophil Count 4.6 X10^3/uL (2.0-7.7); Basophil# 0.07 X10^3/uL; Eosinophil# 0.17 X10^3/uL; Eosinophils% 2.5 % (0-5); Lymphocyte # 1.19 X10^3/ul (0.83-4.51); Lymphocyte % 17.8 % (19-41); Mean Corp Hgb Conc 27.8 g/dL (32-36); Mean Corpuscular Hgb 20.3 pg (27.0-32.0); Mean Corpuscular Volume 73.2 fL (81-99); Mean Platelet Vol. 10.3 fl (6.2-12.0); Monocyte# 0.63 X10^3/uL; Monocyte% 9.4 % (0-10); NRBC Flagged by Analyzer 0.4 % (0-5); Neutrophil # 4.59 X10^3/uL (2.7-7.7); Neutrophil % 68.6 % (47-70); POSITIVE MORPHOLOGY YES; Platelet Count 346 K/mm3 (150-450); RBC Distribution Width CV 23.4 % (11.6-14.6); RBC Distribution Width SD 51.8 fl (35.1-43.9); Red Blood Count 4.92 M/mm3 (4.2-5.4); White Blood Count 6.7 K/mm3 (4.4-11.0)
[2024-01-25 11:24] LABS: Differential Indicated SCAN CRITERIA MET
[2024-01-25 11:38] LABS: AST(SGOT) 33 U/L (15-37); Alanine Aminotransfer ALT/SGPT 27 U/L (13-56); Albumin, Serum 3.1 g/dL (3.2-5.0); Alkaline Phosphatase 113 U/L (45-117); Anion Gap 8 (5-15); BUN 13 mg/dL (7-18); BUN/Creat Ratio 9.4 RATIO (10-20); Bilirubin, Direct 0.24 mg/dL (0.00-0.30); Calcium,Total 9.5 mg/dL (8.5-10.1); Chloride 102 mmol/L (98-107); Creatinine, Serum 1.38 mg/dL (0.55-1.02); EST Glomerular Filtration Rate 39 mL/min (>60); Est Glom Filt Rate - Afr Amer 48 mL/min (>60); Estimated Creatinine Clearance 35.61 ml/min; Globulin 4.2 g/dL (2.2-4.2); Glucose 145 mg/dL (74-106); Lipase 37 U/L (13-75); Potassium 3.1 mmol/L (3.5-5.1); Protein, Total 7.3 g/dL (6.4-8.2); Sodium Level 140 mmol/L (136-145)
[2024-01-25 11:48] LABS: Bacteria 0 SEEN /hpf (None Seen); Mucous, Urine 0 SEEN /hpf (<or=2+); Red Blood Cells-Urine 0 SEEN /hpf (0-5)
[2024-01-25 11:52] LABS: Color, Urine Yellow (Yellow); Glucose, Dipstick Normal (Normal); Ketone-Dipstick Negative (Negative); Leukocyte Esterase-Dipstick 25 /ul (Negative); Nitrite-Dipstick Negative (Negative); Occult Blood-Urine 250 /ul (Negative); Protein-Dipstick 30 mg/dl (Negative); Specific Gravity, Urine 1.015 (1.002-1.030); Urine Bilirubin Dipstick Negative (Negative); Urine Clarity Clear (Clear); Urine Urobilinogen 4 mg/dl (Normal)
[2024-01-25 11:53] LABS: Digoxin Level 1.57 ng/mL (0.80-2.00)
[2024-01-25 12:02] VITALS: BP 120/66; PULSE 68; RESP 14; O2SAT 96
[2024-01-25 12:11] LABS: Squamous Epithelial Cells - UA 0-5 SEEN /hpf (5-10); White Blood Cells 0-5 SEEN /hpf (0-5)
[2024-01-25 12:26] LABS: Anisocytosis 3+; Macrocytosis 1+; Microcytosis 2+; Platelet Estimate ADEQUATE (ADEQ); Polychromasia 1+
[2024-01-25 12:27] LABS: Acanthocytes RARE; Ovalocyte 1+; Schistocytes RARE; Tear Drop Cell 1+
[2024-01-25] MEDS: Potassium Chloride Oral Tablet 20 MEQ 40 MEQ PO (12:57)
--- NOTE | 2024-01-25 13:16 | CT_ITS ---
STUDY: CT ABDOMEN AND PELVIS WITH CONTRAST REASON FOR EXAM: Female, 78 years old. Abdominal pain vomiting. Recent iron infusion. RADIATION DOSAGE (If Supplied By Facility): CTDIvol = ( 21.53 ) mGy, DLP = ( 900.45 ) mGycm TECHNIQUE: Transaxial images were obtained from the dome of the diaphragm to the symphysis pubis without oral contrast. IV 100mL Isovue-300 was administered. Sagittal and coronal images were reconstructed. Individualized dose optimization techniques were used for this CT. COMPARISON: Comparison is made with prior study dated September 05, 2023. FINDINGS: Mild increased linear markings at the lung bases suggestive scarring. Coronary artery calcification. Normal liver. There are surgical clips in the gallbladder fossa consistent with a prior cholecystectomy. Normal spleen. There is diffuse atrophy of the pancreas. Normal bilateral adrenal glands. Normal right kidney. Normal left kidney. There is a small hiatal hernia. Normal small intestine. There are multiple colonic diverticula consistent with diverticulosis. The appendix is visualized and appears normal. There is diffuse atherosclerotic calcification of the abdominal aorta, without a demonstrated aneurysm. Normal inferior vena cava. Normal retroperitoneum. Normal urinary bladder. There is absence of the uterus consistent with a prior hysterectomy. Normal abdominal wall. There are mild degenerative changes of the visualized lumbar spine. Levoscoliosis of the lumbar spine. Minimal anterolisthesis of L4 on L5. CT/Abdomen/Pelvis W IV Cont ONLY IMPRESSION: Sigmoid diverticulosis. Status post cholecystectomy. Electronically Signed: Peter Davidson MD at 14:11 EDT ,
[2024-01-25 14:00] VITALS: BP 147/57; PULSE 68; RESP 18; TEMP 36.7; O2SAT 97
== END 2024-01-25 15:00 | disposition home or self-care (01) ==
PROVIDERS: Emergency Provider Emergency Medicine; PCP Family Medicine Geriatric Medicine; Visit Provider Emergency Medicine
DX: R11.2 Nausea with vomiting, unspecified (principal); I48.91 Unspecified atrial fibrillation; E87.6 Hypokalemia; E78.5 Hyperlipidemia, unspecified; Z90.710 Acquired absence of both cervix and uterus; I10 Essential (primary) hypertension; R42 Dizziness and giddiness; I25.10 Atherosclerotic heart disease of native coronary artery without angina pectoris; Z90.49 Acquired absence of other specified parts of digestive tract; Z98.51 Tubal ligation status; Z95.5 Presence of coronary angioplasty implant and graft; I25.2 Old myocardial infarction; K21.9 Gastro-esophageal reflux disease without esophagitis; Z79.01 Long term (current) use of anticoagulants; I87.2 Venous insufficiency (chronic) (peripheral)
CPT/HCPCS: 74177; 80048; 80076; 80162; 81001; 83690; 85025; 93005; 96374; 99283; Q9967; A4216; J2405

== ENCOUNTER → 2024-01-30 | Outpatient (CLI) | payer MEDICARE, SELFPAY ==
[2022-06-16 15:20] VITALS: BMI 37.3
[2024-01-30 13:00] LABS: Absolute Lymphocyte Count 1.28 X10^3/uL (0.83-4.51); Basophil# 0.07 X10^3/uL; Basophil% 1.1 % (0-1); Eosinophil# 0.25 X10^3/uL; Eosinophils% 3.9 % (0-5); Hemoglobin 10.2 g/dL (12.0-15.0); Lymphocyte # 1.28 X10^3/ul (0.83-4.51); Lymphocyte % 20.2 % (19-41); Mean Corp Hgb Conc 28.3 g/dL (32-36); Mean Corpuscular Hgb 21.3 pg (27.0-32.0); Mean Corpuscular Volume 75.3 fL (81-99); Monocyte# 0.72 X10^3/uL; Monocyte% 11.4 % (0-10); NRBC Flagged by Analyzer 0 % (0-5); Neutrophil # 3.97 X10^3/uL (2.7-7.7); Neutrophil % 62.6 % (47-70); POSITIVE MORPHOLOGY YES; Platelet Count 359 K/mm3 (150-450); RBC Distribution Width CV 26.4 % (11.6-14.6); RBC Distribution Width SD 70.4 fl (35.1-43.9); Red Blood Count 4.78 M/mm3 (4.2-5.4); White Blood Count 6.3 K/mm3 (4.4-11.0)
[2024-01-30 13:11] LABS: Differential Indicated SCAN CRITERIA MET
[2024-01-30 13:16] LABS: International Normalized Ratio 1.1; Partial Thromboplast Time 28.6 Seconds (24.1-36.2); Prothrombin Time (Protime)PT. 13.8 SECONDS (11.7-14.9)
[2024-01-30 14:04] LABS: Anisocytosis 2+; Differential Comment SCANNED
[2024-01-30 14:05] LABS: Polychromasia 1+
[2024-01-30 14:06] LABS: Hypochromasia 2+
[2024-01-30 14:50] LABS: ALB/GLOB Ratio 0.8 RATIO (0.9-2.4); AST(SGOT) 39 U/L (15-37); Alanine Aminotransfer ALT/SGPT 32 U/L (13-56); Albumin, Serum 3.3 g/dL (3.2-5.0); Alkaline Phosphatase 127 U/L (45-117); Anion Gap 8 (5-15); BUN 19 mg/dL (7-18); BUN/Creat Ratio 12.3 RATIO (10-20); CPK Total, Creatine Kinase 98 U/L (26-192); Calcium,Total 9.9 mg/dL (8.5-10.1); Chloride 105 mmol/L (98-107); Creatinine, Serum 1.55 mg/dL (0.55-1.02); EST Glomerular Filtration Rate 35 mL/min (>60); Est Glom Filt Rate - Afr Amer 42 mL/min (>60); Globulin 4.2 g/dL (2.2-4.2); Glucose 136 mg/dL (74-106); Protein, Total 7.5 g/dL (6.4-8.2); Sodium Level 142 mmol/L (136-145); Troponin-I HS 21 pg/mL (3.0-54.0)
[2024-02-01 08:12] LABS: Myoglobin, Serum 62 ng/mL (25-58)
== END | disposition home or self-care (01) ==
LOC: POLAB3 11:56
PROVIDERS: Internal Medicine Cardiovascular Disease; PCP Family Medicine Geriatric Medicine; Visit Provider Family Medicine Geriatric Medicine
DX: I10 Essential (primary) hypertension (principal); R07.9 Chest pain, unspecified; D50.9 Iron deficiency anemia, unspecified
CPT/HCPCS: 36415; 80053; 82550; 83874; 84484; 85025; 85610; 85730

== ENCOUNTER 2024-01-31 07:04 | Day surgery (SDC) | payer MEDICARE, SELFPAY ==
[2022-06-16 15:20] VITALS: BMI 37.3
[2024-01-30 08:11] VITALS: BMI 42.0
[2024-01-31 07:32] LABS: Anion Gap 8 (5-15); BUN 20 mg/dL (7-18); BUN/Creat Ratio 13.7 RATIO (10-20); Calcium,Total 9.5 mg/dL (8.5-10.1); Chloride 106 mmol/L (98-107); Creatinine, Serum 1.46 mg/dL (0.55-1.02); EST Glomerular Filtration Rate 37 mL/min (>60); Est Glom Filt Rate - Afr Amer 45 mL/min (>60); Estimated Creatinine Clearance 34.32 ml/min; Glucose 138 mg/dL (74-106); Potassium 3.4 mmol/L (3.5-5.1); Sodium Level 143 mmol/L (136-145)
[2024-01-31 10:03] LABS: Blood Gas Specimen Type VEN; O2 Delivery Device Not entered; SITE Not entered; VBG BASE EXCESS 3 mmol/L (-1.0-3.5); VBG Bicarbonate 27 mmol/L (22-26); VBG PO2 34 mmHg (25-40); VBG SO2 67 % (50-70); VBG TCO2 29 mmol/L (23-33); VBG pCO2 43.1 mmHg (41-51); VBG pH 7.41 (7.32-7.42)
[2024-01-31 10:08] LABS: Blood Gas Specimen Type VEN; O2 Delivery Device Not entered; SITE Not entered; VBG BASE EXCESS 4 mmol/L (-1.0-3.5); VBG Bicarbonate 28 mmol/L (22-26); VBG PO2 36 mmHg (25-40); VBG SO2 71 % (50-70); VBG TCO2 30 mmol/L (23-33); VBG pCO2 42.8 mmHg (41-51); VBG pH 7.43 (7.32-7.42)
[2024-01-31 10:15] LABS: Blood Gas Specimen Type VEN; O2 Delivery Device Not entered; SITE Not entered; VBG BASE EXCESS 4 mmol/L (-1.0-3.5); VBG Bicarbonate 29 mmol/L (22-26); VBG PO2 38 mmHg (25-40); VBG SO2 73 % (50-70); VBG TCO2 30 mmol/L (23-33); VBG pCO2 43.8 mmHg (41-51); VBG pH 7.42 (7.32-7.42)
[2024-01-31 11:35] LABS: Base Excess 4 mmol/L (-2 to +2); Blood Gas Specimen Type ART; Mode Not entered; O2 Delivery Device Not entered; PO2 65 mmHG (75-100); SITE Not entered; SO2 93 % (95-99); Total Carbon Dioxide 29 mmol/L; pCO2 40.9 mmHg (35-45); pH 7.44 (7.35-7.45)
--- NOTE | 2024-01-31 12:05 | CL.D_ITS ---
Patient Name: JIE HENRIQUEZ Study Date: 01/31/2024 Performing: Melody Briceno MD Ht: 60 inches 152.4 cm : 1945 Wt: 214.99 lbs 97.52 kg Age: 78 Gender: female BSA: 1.92 PROCEDURE(S) PERFORMED [id number])RHC/LHC/COR IC08-([id number])IVUS, CORONARY OR GRAFT, INITIAL VESSEL IC10-([id number])FFR, CORONARY OR GRAFT, INITIAL VESSEL IC10-([id number])FFR, CORONARY OR GRAFT, INITIAL VESSEL CLINICAL PROFILE AND INDICATIONS Indications: Stable Known CAD Heart Failure: NYHA Class: 2, Heart Failure Type: Diastolic CAD Presentations: Other: Dyspnea on exertion CONCLUSIONS 55% eccentric ostial LAD on IVUS, FFR 0.87; Stent to Prox LAD patent 50-60% Mid RCA, FFR 0.88 PA pressure 55/20 mm Hg C.O 7.1; CI 3.69 RECOMMENDATIONS Medical therapy Risk factor modification DESCRIPTION OF PROCEDURE The patient arrived to the procedure lab. The risks and benefits of the procedure as well as a full description of our services here and current unavailability of surgical backup were fully explained to the patient and/or their significant other prior to the catheterization. The Timeout was completed, verifying the correct patient and procedure. The patient's procedural site was prepped and draped in the usual fashion. Local anesthetic was given subcutaneously to right radial region with Lidocaine 2%. Using a modified Seldinger technique, arterial access was obtained via the right radial artery, a 6Fr sheath was inserted. Venous access was obtained via the right brachiocephalic vein, a 7Fr sheath was inserted. A 7Fr thermal dilution catheter was inserted and right heart pressures were recorded, it was then advanced to PA position for cardiac outputs. The Thermal dilution catheter was then removed. Right Coronary Artery selective angiography was then performed in multiple views using a 5 Fr. 4.0 [place] catheter. Left Coronary Artery selective angiography was performed in multiple views using a 5 Fr. JL4 catheter.The arterial sheath was pulled and a TR Band was applied for hemostasis. The venous sheath was then pulled and manual compression applied until hemostasis achieved CORONARY ANGIOGRAPHY DOMINANCE: Right Dominant RIGHT HEART ASSESSMENT Michael CO: 7.1 Michael CI: 3.69 PW: PA: 55/20 31 RV: 54/9 20 RA: 16 LEFT MAIN: Tubular 30% Distal lesion in LMCA LEFT ANTERIOR DESCENDING ARTERY: LAD: Eccentric 55% Ostial lesion in LAD DIAGONAL 1: Tubular 50% Ostial lesion in DIAG1 CIRCUMFLEX ARTERY: No significant disease noted RIGHT CORONARY ARTERY: RCA: Tubular 60% Mid lesion in RCA COMPLICATIONS No Complications PROCEDURE MEDICATIONS Versed 1 mg IV Fentanyl 50 mcg IV Aspirin (325mg) 1 Tabs PO 01/31/2024 08:52:34 Heparin given IA 01/31/2024 09:51:05 Heparin 5000 unit(s) IV 01/31/2024 10:23:16 Heparin 2000 unit(s) IV 01/31/2024 11:05:42 Verapamil 2.5mg, Ntg 200mcgs, 2000 units of Heparin given IA 01/31/2024 09:51:05 SUMMARY OF HEMODYNAMIC DATA Time AIR REST ECG 07:54:51 RA (16) SV 09:54:54 PW (19) PV 09:56:14 PA 55/20 (31) PA 09:56:35 RV 54/9, 20 09:58:02 RA (15) 09:59:47 AO 150/69 (99) SA 10:04:39 LV 183/7, 24 11:13:59 LV 178/0, 24 11:14:08 LVp 174/1, 22 11:14:15 AOp 169/61 (103) 11:14:22 12:04:03 Type SV CO (l/m) CI (l/m/ HR Time AIR REST Michael 110.90 7.10 3.69 64 07:54:51 Label % O2 Pres/Loc Time AIR REST AO 93 PV 11:54:14 RA 67 SV 11:54:23 RV 73 11:54:33 PA 71 PA 11:54:40 Signed By Melody Briceno MD On 01/31/2024 12:04:26 Melody Briceno MD
[2024-01-31 14:21] LABS: ACT Activated Clotting Time 207 sec (74-137)
== END 2024-01-31 15:10 | disposition home or self-care (01) ==
PROVIDERS: PCP Family Medicine Geriatric Medicine; Referring Provider Internal Medicine Cardiovascular Disease; Visit Provider Internal Medicine Cardiovascular Disease
DX: R07.9 Chest pain, unspecified (principal); I50.30 Unspecified diastolic (congestive) heart failure; I11.0 Hypertensive heart disease with heart failure; J44.9 Chronic obstructive pulmonary disease, unspecified; I48.0 Paroxysmal atrial fibrillation; Z95.5 Presence of coronary angioplasty implant and graft; I25.10 Atherosclerotic heart disease of native coronary artery without angina pectoris; M43.10 Spondylolisthesis, site unspecified; R06.00 Dyspnea, unspecified; R60.0 Localized edema; E66.09 Other obesity due to excess calories; Z68.39 Body mass index [BMI] 39.0-39.9, adult; Z90.49 Acquired absence of other specified parts of digestive tract; Z90.710 Acquired absence of both cervix and uterus; D50.9 Iron deficiency anemia, unspecified
CPT/HCPCS: 36415; 80048; 82803; 85347; 92978; 93456; 93571; 99152; 99153; C1894; J0153; J7030; J7050; Q9967; C1751; C1753; C1769; C1887

== ENCOUNTER → 2024-02-06 | Outpatient (CLI) | payer MEDICARE, SELFPAY ==
[2022-06-16 15:20] VITALS: BMI 37.3
[2024-02-06 12:17] LABS: Absolute Lymphocyte Count 1.34 X10^3/uL (0.83-4.51); Absolute Neutrophil Count 3.6 X10^3/uL (2.0-7.7); Basophil# 0.08 X10^3/uL; Basophil% 1.4 % (0-1); Eosinophil# 0.16 X10^3/uL; Eosinophils% 2.7 % (0-5); Hematocrit 35.3 % (37-47); Hemoglobin 10.2 g/dL (12.0-15.0); Lymphocyte # 1.34 X10^3/ul (0.83-4.51); Lymphocyte % 22.9 % (19-41); Mean Corp Hgb Conc 28.9 g/dL (32-36); Mean Corpuscular Hgb 22.5 pg (27.0-32.0); Mean Corpuscular Volume 77.9 fL (81-99); Mean Platelet Vol. 10.3 fl (6.2-12.0); Monocyte# 0.59 X10^3/uL; Monocyte% 10.1 % (0-10); NRBC Flagged by Analyzer 0 % (0-5); Neutrophil # 3.62 X10^3/uL (2.7-7.7); Neutrophil % 61.9 % (47-70); POSITIVE MORPHOLOGY YES; Platelet Count 340 K/mm3 (150-450); RBC Distribution Width CV 28.9 % (11.6-14.6); RBC Distribution Width SD 76.1 fl (35.1-43.9); Red Blood Count 4.53 M/mm3 (4.2-5.4); White Blood Count 5.9 K/mm3 (4.4-11.0)
[2024-02-06 12:18] LABS: Differential Indicated SCAN CRITERIA MET
[2024-02-06 12:46] LABS: Differential Comment SCANNED
[2024-02-06 12:47] LABS: Anisocytosis 3+; Macrocytosis 1+; Ovalocyte 1+; Platelet Estimate ADEQUATE (ADEQ); Polychromasia 1+; Schistocytes 1+; Tear Drop Cell 1+
[2024-02-06 12:50] LABS: Anion Gap 7 (5-15); BUN 16 mg/dL (7-18); BUN/Creat Ratio 10.1 RATIO (10-20); Calcium,Total 10.1 mg/dL (8.5-10.1); Chloride 107 mmol/L (98-107); Creatinine, Serum 1.58 mg/dL (0.55-1.02); EST Glomerular Filtration Rate 34 mL/min (>60); Est Glom Filt Rate - Afr Amer 41 mL/min (>60); Glucose 169 mg/dL (74-106); Magnesium 2.1 mg/dL (1.6-2.6); Phosphorus 2.3 mg/dL (2.5-4.9); Potassium 3.5 mmol/L (3.5-5.1); Sodium Level 141 mmol/L (136-145)
== END | disposition home or self-care (01) ==
LOC: POLAB3 11:58
PROVIDERS: PCP Family Medicine Geriatric Medicine; Visit Provider Family Medicine Geriatric Medicine
DX: I10 Essential (primary) hypertension (principal); E87.6 Hypokalemia
CPT/HCPCS: 36415; 80048; 83735; 84100; 85025

== ENCOUNTER → 2024-02-14 | Outpatient (CLI) | payer MEDICARE, SELFPAY ==
[2022-06-16 15:20] VITALS: BMI 37.3
[2024-02-19 02:08] LABS: Pancreatic Elastase, Fecal 777 (>200)
[2024-02-19 14:10] LABS: Calprotectin, Stool 72 ug/g (0-120)
== END | disposition home or self-care (01) ==
LOC: LABSPEC 16:52
PROVIDERS: PCP Family Medicine Geriatric Medicine; Referring Provider Student in an Organized Health Care Education/Training Program; Visit Provider Student in an Organized Health Care Education/Training Program
DX: R19.7 Diarrhea, unspecified (principal); K58.9 Irritable bowel syndrome, unspecified
CPT/HCPCS: 82653; 83630; 83993; 87177; 87209; 87329; 87493; 87506

== ENCOUNTER → 2024-02-18 | Outpatient (CLI) | payer MEDICARE, SELFPAY ==
[2022-06-16 15:20] VITALS: BMI 37.3
--- NOTE | 2024-02-18 14:15 | CT_ITS ---
STUDY: CT ABDOMEN AND PELVIS WITH CONTRAST REASON FOR EXAM: Female, 78 years old. VOMITING,NAUSEA,RIGHT FLANK PAIN RADIATION DOSAGE (If Supplied By Facility): CTDIvol = ( 16.16 ) mGy, DLP = ( 1208.25 ) mGycm TECHNIQUE: Transaxial images were obtained from the dome of the diaphragm to the symphysis pubis without oral contrast. [id number] 100ML was administered. Sagittal and coronal images were reconstructed. Individualized dose optimization techniques were used for this CT. COMPARISON: January 25, 2024 FINDINGS: The visualized lung bases are unremarkable. The visualized portions of the heart are within normal limits. Small hiatal hernia is noted Nonspecific fatty infiltrated liver without mass or bile duct dilatation. Gallbladder has been removed Normal spleen. Normal pancreas. Normal bilateral adrenal glands. Normal right kidney. Normal left kidney. Normal visualized stomach. Normal small intestine. Diverticular disease of the descending and sigmoid colon without definitive evidence for acute diverticulitis. Appendix not visualized status post appendectomy Atherosclerotic changes of the aorta without evidence for aneurysm. Normal inferior vena cava. Normal retroperitoneum. Normal urinary bladder. Uterus not visualized status post hysterectomy Normal abdominal wall. Lumbar spine demonstrates degenerative change. Grade 1 sp[address]isthesis at L4-5. CT/Abdomen/Pelvis WITH Contrast IMPRESSION: Diverticulosis of the descending and sigmoid colon without evidence for acute diverticulitis. No evidence for small bowel obstruction. Status post cholecystectomy appendectomy and hysterectomy Electronically Signed: Drake Tian MD at 18:02 EDT ,
== END | disposition home or self-care (01) ==
LOC: CT 14:14
PROVIDERS: PCP Family Medicine Geriatric Medicine; Referring Provider Family Medicine Geriatric Medicine; Visit Provider Family Medicine Geriatric Medicine
DX: R11.2 Nausea with vomiting, unspecified (principal); R10.9 Unspecified abdominal pain
CPT/HCPCS: 74177; Q9967

== ENCOUNTER → 2024-02-18 | Outpatient (CLI) | payer MEDICARE, SELFPAY ==
[2022-06-16 15:20] VITALS: BMI 37.3
[2024-02-18 12:41] LABS: Hematocrit 37.2 % (37-47); Hemoglobin 11.2 g/dL (12.0-15.0); Mean Corp Hgb Conc 30.1 g/dL (32-36); Mean Corpuscular Hgb 24.1 pg (27.0-32.0); Mean Corpuscular Volume 80.2 fL (81-99); Mean Platelet Vol. 9.4 fl (6.2-12.0); POSITIVE MORPHOLOGY YES; Platelet Count 340 K/mm3 (150-450); Red Blood Count 4.64 M/mm3 (4.2-5.4); White Blood Count 4.7 K/mm3 (4.4-11.0)
[2024-02-18 12:47] LABS: Scan Indicated on CBC? Y/N YES- FLAGS NOTED
[2024-02-18 13:02] LABS: ALB/GLOB Ratio 0.7 RATIO (0.9-2.4); AST(SGOT) 37 U/L (15-37); Alanine Aminotransfer ALT/SGPT 29 U/L (13-56); Albumin, Serum 2.8 g/dL (3.2-5.0); Alkaline Phosphatase 101 U/L (45-117); Anion Gap 4 (5-15); BUN 12 mg/dL (7-18); BUN/Creat Ratio 10.4 RATIO (10-20); Calcium,Total 9.9 mg/dL (8.5-10.1); Chloride 106 mmol/L (98-107); Creatinine, Serum 1.15 mg/dL (0.55-1.02); EST Glomerular Filtration Rate 49 mL/min (>60); Est Glom Filt Rate - Afr Amer 59 mL/min (>60); Glucose 117 mg/dL (74-106); Phosphorus 1.9 mg/dL (2.5-4.9); Potassium 3.1 mmol/L (3.5-5.1); Protein, Total 6.8 g/dL (6.4-8.2); Sodium Level 141 mmol/L (136-145)
[2024-02-18 13:29] LABS: Digoxin Level 0.78 ng/mL (0.80-2.00)
--- OUTSIDE RECORDS SUMMARY | 2024-02-18 14:02 | XMS RPT_ITS | CCD ---
Author Organization [facility] ion Partnership [facility] Care Team Providers Care Rn Family Practice Name Role Phone ALEX ESCOBAR Unavailable Unavailable JOSIE, RAF-CHI Unavailable Unavailable MARKUS, ZAIRA NABI Unavailable Unavailable MARKUS, ZAIRA NABI Unavailable Unavailable MARKUS, ZAIRA NABI Unavailable Unavailable MARKUS, ZAIRA NABI Unavailable Unavailable MARKUS, ZAIRA NABI Unavailable Unavailable MARKUS, ZAIRA NABI Unavailable Unavailable MARKUS, ZAIRA NABI Unavailable Unavailable MARKUS, ZAIRA NABI Unavailable Unavailable MARKUS, ZAIRA NABI Unavailable Unavailable JOSIE BENNETT, DR LEWIS Primary Care Physician Raf Galindo Chi Primary Care Provider [phone] Raf Galindo Chi Primary Care Provider [phone] Allergies Allergy Classification Reported Allergen(s) Allergy Type Date of Onset Reaction(s) Facility (3 sources) Acetaminophen; Translations: [ACETAMINOPHEN] Drug Allergy 5 Other: See Comments [facility] Repository (3 sources) Acetaminophen / HYDROcodone; Translations: [HYDROCODONE-ACET AMINOPHEN] Drug Allergy 5 GI Upset [facility] Repository (3 sources) Adhesive Tape; Translations: [ADHESIVE TAPE (ROSINS)] Propensity to adverse reactions (disorder) 6 Other: See Comments [facility] Repository (3 sources) Bee pollen; Translations: [BEE POLLEN] Drug Allergy 5 Other: See Comments [facility] Repository (3 sources) Latex; Translations: [LATEX] Propensity to adverse reactions to drug (disorder) 9 Rash [facility] Repository (3 sources) Morphine; Translations: [MORPHINE] Drug Allergy 3 Mental Status Change [facility] Repository (3 sources) Penicillins; Translations: [PENICILLINS] Propensity to adverse reactions to drug (disorder) 5 Rash [facility] Repository Medications Current Medications Medication Drug Class(es) Dates Sig (Normalized) Sig (Original) albuterol-budeson henry HFA (AIRSUPRA) 90-80 mcg/actuation inhaler (1 source) albuterol-budeso n henry HFA (AIRSUPRA) 90-80 mcg/actuation inhaler Take 2 Puffs by mouth every 4 hours as needed for wheezing/shortnes s of breath. Do not take more than 12 inhalations in a 24 hour period. Active amLODIPine 2.5 mg oral tablet (3 sources) Dihydropyridine Calcium Channel Shanel Start: 11-20-2021 amLODIPine 2.5 mg oral tablet 0 Refill(s) Start Date: 11/20/21 Status: Ordered take 5 mg by mouth once daily am LODIPine (NORVASC) 10 mg tablet Take 5 mg by mouth once daily. Active Comment on above: Take 5 mg by mouth o nce daily. apixaban 5 mg oral tablet (3 sources) Factor Xa Inhibitor Start: 2021 Eliquis 5 mg oral tablet 0 Refill(s) Start Date: 11/20/21 Status: Ordered Comment on above: Take 5 mg by mouth t wo times a day. aspirin 81 mg oral tablet (2 sources) Platelet Aggregation Inhibitor, Nonsteroidal Anti-inflammatory Drug Aspirin 81 mg Tab Ta ke 81 mg by mouth. Active Comment on above: Take 81 mg by mouth. atorvastatin 40 mg oral tablet (1 source) HMG-CoA Reductase Inhibitor Start: 2021 atorvastatin 40 mg oral tablet 0 Refill(s) Start Date: 11/20/21 Status: Ordered diazePAM 2 mg oral tablet (2 sources) Benzodiazepine take 1 tablet by mouth every six hours as needed diazePAM (VALIUM) 2 mg tablet Take 2 mg by mouth every 6 hours as needed. Active Comment on above: Take 2 mg by mouth e very 6 hours as needed. ergocalciferol 1.25 mg oral capsule (2 sources) Provitamin D2 Compound Start: 2017 take 1 capsule by mouth every week, then take 1 capsule by mouth every month VITAMIN D 50,000 unit capsule Take one capsule by mouth per week for 8 weeks then one capsule monthly thereafter 0 11/20/2017 Active Comment on above: Take one capsule by mouth per week for 8 weeks then one capsule monthly thereafter esomeprazole 20 mg delayed release oral capsule (2 sources) Proton Pump Inhibitor take 1 capsule by mouth once daily, then take 6 capsules by mouth in the morning esomeprazole (NEXIUM) 20 mg capsule Indications: Pharyngoesophageal dysphagia , Gastroesophageal reflux disease, esophagitis presence not specified Take 20 mg by mouth DAILY (6 AM). Active Comment on above: Take 20 mg by mouth DAILY (6 AM). 24 hr isosorbide mononitrate 60 mg extended release oral tablet (1 source) Nitrate Vasodilator Start: 2021 isosorbide mononitrate 60 mg oral tablet, extended release 0 Refill(s) Start Date: 11/20/21 Status: Ordered lisinopril 10 mg oral tablet (2 sources) Angiotensin Converting Enzyme Inhibitor Start: 2014 take 1 tablet by mouth once daily lisinopril (ZESTRIL, PRINIVIL) 10 mg tablet Indications: Essential hypertension, benign Take 1 tablet by mouth once daily. 30 tablet 5 04/08/2015 Active Comment on above: Take 1 tablet by heather th once daily. losartan potassium 50 mg oral tablet (1 source) Angiotensin 2 Receptor Shanel Start: 2021 losartan 50 mg oral tablet 0 Refill(s) Start Date: 11/20/21 Status: Ordered meclizine hydrochloride 25 mg oral tablet (2 sources) Antiemetic take 1 tablet by mouth three times daily meclizine (ANTIVERT) 25 mg tab Take 25 mg by mouth three times a day. Active Comment on above: Take 25 mg by mouth three times a day. meloxicam 15 mg oral tablet (2 sources) Nonsteroidal Anti-inflammatory Drug take 1 tablet by mouth once daily meloxicam (MOBIC) 15 mg tablet Indications: Pharyngoesophageal dysphagia , Gastroesophageal reflux disease, esophagitis presence not specified Take 15 mg by mouth once daily. Active Comment on above: Take 15 mg by mouth once daily. metoprolol tartrate 25 mg oral tablet (3 sources) beta-Adrenergic Shanel Start: 2021 Metoprolol Succinate ER 25 mg oral TABLET extended release 0 Refill(s) Start Date: 11/20/21 Status: Ordered take 1 tablet by mouth once isaiah y metoprolol succinate ER (TOPROL XL) 25 mg 24 hr tablet Take 25 mg by mouth once daily. Active Comment on above: Take 25 mg by mouth once daily. naproxen sodium 220 mg oral tablet (2 sources) Nonsteroidal Anti-inflammatory Drug Start: 009 naproxen sodium(ALEVE 220 MG TAB) 2 tabs q 4-6 hrs prn pain 0 11/03/2008 Active Comment on above: 2 tabs q 4-6 hrs prn pain nitroglycerin 0.4 mg sublingual tablet (2 sources) Nitrate Vasodilator nitroglyceri n sublingual (NITROQUICK) 0.4 mg SL tablet Dissolve 0.4 mg under the tongue every 5 minutes as needed for chest pain. Active Comment on above: Dissolve 0.4 mg unde r the tongue every 5 minutes as needed for chest pain. omeprazole 10 mg delayed release oral capsule (2 sources) Proton Pump Inhibitor take 2 capsules by mouth once daily omeprazole (PRILOSEC) 10 mg capsule Take 20 mg by mouth once daily. Active Comment on above: Take 20 mg by mouth once daily. ondansetron 4 mg oral tablet (2 sources) Serotonin-3 Receptor Antagonist take 1 tablet by mouth every eight hours as needed ondansetron (ZOFRAN) 4 mg tablet Take 4 mg by mouth every 8 hours as needed for nausea/vomiting. Active Comment on above: Take 4 mg by mouth e very 8 hours as needed for nausea/vomiting. pantoprazole 40 mg delayed release oral tablet (2 sources) Proton Pump Inhibitor take 1 tablet by mouth once daily pantoprazole DR (PROTONIX) 40 mg tablet Take 40 mg by mouth once daily. Active Comment on above: Take 40 mg by mouth once daily. pregabalin 75 mg oral capsule (2 sources) take 1 capsule by mouth twice daily pregabalin (LYRICA) 75 mg capsule Indications: Pharyngoesophageal dysphagia , Gastroesophageal reflux disease, esophagitis presence not specified Take 75 mg by mouth twice daily. Active Comment on above: Take 75 mg by mouth twice daily. rosuvastatin 40 mg oral capsule (2 sources) HMG-CoA Reductase Inhibitor take 40 mg by mouth once daily rosuvastatin 40 mg cpSP Take 40 mg by mouth once daily. Active Comment on above: Take 40 mg by mouth once daily. spironolactone 25 mg oral tablet (2 sources) Aldosterone Antagonist Start: 018 spironolactone (ALDACTONE) 25 mg tablet 05/08/2017 Active tolterodine tartrate 2 mg oral tablet (2 sources) Cholinergic Muscarinic Antagonist take 1 tablet by mouth twice daily tolterodine (DETROL) 2 mg tablet Indications: Pharyngoesophageal dysphagia , Gastroesophageal reflux disease, esophagitis presence not specified Take 2 mg by mouth twice daily. Active Comment on above: Take 2 mg by mouth t wice daily. Completed/Discontinued Medications Medication Drug Class(es) Dates Sig (Normalized) Sig (Original) albuterol-budesonide HFA (AIRSUPRA) 90-80 mcg/actuation inhaler (1 source) albuterol-budeso nide HFA (AIRSUPRA) 90-80 mcg/actuation inhaler Take 2 Puffs by mouth every 4 hours as needed for wheezing/shortness of breath. Do not take more than 12 inhalations in a 24 hour period. 0 Active Comment on above: Take 2 Puffs by mout h every 4 hours as needed for wheezing/shortness of breath. Do not take more than 12 inhalations in a 24 hour period. Problems Active Problems Problem Classification Problem Date Documented Da te Episodic/Chronic Esophageal disorders (2 sources) Gastroesophageal reflux disease; Translations: [Gastro-esophageal reflux disease without esophagitis] Onset: 5 02-06-2005 Chronic Essential hypertension (2 sources) Benign essential hypertension; Translations: [Essential (primary) hypertension] Onset: 1 06-30-2010 Chronic Fluid and electrolyte disorders (1 source) Dehydration; Translations: [Dehydration] Onset: 2 Episodic Gastrointestinal hemorrhage (1 source) Rectal hemorrhage; Translations: [Hemorrhage of anus and rectum] 06-17-2023 Episodic Nonmalignant breast conditions (2 sources) Fibrocystic disease of breast; Translations: [Diffuse cystic mastopathy of unspecified breast] Onset: 5 03-01-2015 Chronic Nutritional deficiencies (2 sources) Vitamin D deficiency; Translations: [Vitamin D deficiency, unspecified] Onset: 7 08-28-2017 Chronic Osteoarthritis (2 sources) Degenerative joint disease involving multiple joints; Translations: [Polyosteoarthritis, unspecified] Onset: 5 02-06-2005 Chronic Other gastrointestinal disorders (2 sources) Irritable bowel syndrome; Translations: [Irritable bowel syndrome without diarrhea] Onset: 6 11-27-2005 Chronic Other nutritional; endocrine; and metabolic disorders (2 sources) Obesity; Translations: [Obesity, unspecified] Onset: 8 08-28-2017 Chronic Past or Other Problems Problem Classification Problem Date Documented Date Episodic/Chronic Abdominal pain (2 sources) Generalized abdominal pain; Translations: [Generalized abdominal pain] Onset: 8 08-28-2017 Episodic Allergic reactions (2 sources) Allergic contact dermatitis; Translations: [Allergic contact dermatitis, unspecified cause] Onset: 7 08-28-2017 Episodic Nonmalignant breast conditions (1 source) Breast lump; Translations: [Unspecified lump in unspecified breast] Onset: 0 Resolved: 0 12-30-2009 Episodic Other connective tissue disease (2 sources) Fibromyalgia; Translations: [Fibromyalgia] Onset: 7 08-28-2017 Episodic Other gastrointestinal disorders (1 source) Dysphagia, unspecified; Translations: [Dysphagia, unspecified] Onset: 8 Episodic Other gastrointestinal disorders (2 sources) Dysphagia; Translations: [Dysphagia, pharyngoesophageal phase] Onset: 6 04-10-2016 Episodic Other gastrointestinal disorders (2 sources) Diarrhea; Translations: [Diarrhea, unspecified] Onset: 8 08-28-2017 Episodic Other inflammatory condition of skin (2 sources) Pruritus, unspecified; Translations: [Unspecified pruritic disorder] Onset: 7 08-28-2017 Episodic Other injuries and conditions due to external causes (2 sources) Multiple injuries; Translations: [Unspecified multiple injuries, initial encounter] Onset: 7 08-28-2017 Episodic Other non-traumatic joint disorders (2 sources) Pain in lower limb; Translations: [Pain in unspecified knee] Onset: 6 06-08-2005 Episodic Other non-traumatic joint disorders (2 sources) Hip pain; Translations: [Pain in unspecified hip] Onset: 6 08-28-2017 Episodic Other non-traumatic joint disorders (2 sources) Pain in unspecified knee; Translations: [Pain in joint, lower leg] Onset: 7 08-28-2017 Episodic Other nutritional; endocrine; and metabolic disorders (1 source) Abnormal weight loss; Translations: [Abnormal weight loss] Onset: 8 Episodic Other nutritional; endocrine; and metabolic disorders (2 sources) Loss of appetite; Translations: [Anorexia] Onset: 8 08-28-2017 Episodic Other screening for suspected conditions (not mental disorders or infectious disease) (3 sources) Mammography abnormal; Translations: [Other abnormal and inconclusive findings on diagnostic imaging of breast] Onset: 9 Resolved: 0 03-30-2011 Episodic Other skin disorders (2 sources) Eruption; Translations: [Rash and other nonspecific skin eruption] Onset: 7 08-28-2017 Episodic Residual codes; unclassified (2 sources) Localized edema; Translations: [Localized edema] Onset: 7 08-28-2017 Episodic Spondylosis; intervertebral disc disorders; other back problems (2 sources) Lumbago co-occurrent with right-side sciatica; Translations: [Lumbago with sciatica, right side] Onset: 6 06-22-2015 Episodic Urinary tract infections (4 sources) Urinary tract infectious disease; Translations: [Urinary tract infection, site not specified] Onset: 7 08-28-2017 Episodic Results Test Name Value Interpretation Reference Range Facility LABORATORYOrdered By: Edith Curran on 11-20-2021 Basophil, Absolute 0.0 103/mcL Invalid Interpretation Code 0.0 - 0.2 10^3/mcL AO Workflow SS Basophils/100 WBC (Bld) 0.6 % Invalid Interpretation Code 0.0 - 2.5 % AO Workflow SS Calcium [Mass/Vol] 9.2 mg/dL Invalid Interpretation Code 8.4 - 10.2 mg/dL AO ADM SS Chloride [Moles/Vol] 104 mmol/L Invalid Interpretation Code 98 - 107 mmol/L AO ADM SS CO2 [Moles/Vol] 27 mmol/L Invalid Interpretation Code 23 - 31 mmol/L AO ADM SS Creatinine [Mass/Vol] 1.25 mg/dL Invalid Interpretation Code 0.55 - 1.02 mg/dL AO ADM SS Electrolyte Balance 9.0 mEq/L Invalid Interpretation Code 4.0 - 15.0 mEq/L AO ADM SS Eosinophil, Absolute 0.1 103/mcL Invalid Interpretation Code 0.0 - 0.4 10^3/mcL AO Workflow SS Eosinophils/100 WBC (Bld) 2.7 % Invalid Interpretation Code 0.0 - 7.0 % AO Workflow SS Erythrocyte distribution width (RBC) [Ratio] 16.2 % Invalid Interpretation Code 11.5 - 14.5 % AO Workflow SS Glucose [Mass/Vol] 151 mg/dL Invalid Interpretation Code 83 - 110 mg/dL AO ADM SS Hematocrit (Bld) [Volume fraction] 34.6 % Invalid Interpretation Code 37.0 - 47.0 % AO Workflow SS Hemoglobin (Bld) [Mass/Vol] 11.4 G/dL Invalid Interpretation Code 12.0 - 16.0 G/dL AO Workflow SS Lymphocyte, Absolute 1.3 103/mcL Invalid Interpretation Code 0.8 - 3.9 10^3/mcL AO Workflow SS Lymphocytes/100 WBC (Bld) 24.9 % Invalid Interpretation Code 10.0 - 50.0 % AO Workflow SS MCH (RBC) [Entitic mass] 25.7 pg Invalid Interpretation Code 27.0 - 31.2 pg AO Workflow SS MCHC 33.0 G/dL Invalid Interpretation Code 33.0 - 37.0 G/dL AO Workflow SS MCV (RBC) [Entitic vol] 77.8 fL Invalid Interpretation Code 80.0 - 94.0 fL AO Workflow SS Monocyte distribution width Auto (Bld) [Entitic vol] 19.33 Invalid Interpretation Code 0.00 - 20.00 AO Workflow SS Comment on above: Result Comment: For ED adult patients suspected of sepsis, MDW<=20.0 does not rule out sepsis or risk of sepsis Monocyte, Absolute 0.4 103/mcL Invalid Interpretation Code 0.2 - 1.0 10^3/mcL AO Workflow SS Monocytes/100 WBC (Bld) 8.2 % Invalid Interpretation Code 1.7 - 13.0 % AO Workflow SS Neutrophil, Absolute 3.4 103/mcL Invalid Interpretation Code 2.9 - 6.2 10^3/mcL AO Workflow SS Neutrophils/100 WBC (Bld) 63.6 % Invalid Interpretation Code 37.0 - 80.0 % AO Workflow SS Platelet mean volume (Bld) [Entitic vol] 7.7 fL Invalid Interpretation Code 7.4 - 10.4 fL AO Workflow SS Platelets (Bld) [#/Vol] 309 103/mcL Invalid Interpretation Code 130 - 400 10^3/mcL AO Workflow SS Potassium [Moles/Vol] 4.4 mmol/L Invalid Interpretation Code 3.5 - 5.1 mmol/L AO ADM SS RBC (Bld) [#/Vol] 4.45 106/mcL Invalid Interpretation Code 4.20 - 5.40 10^6/mcL AO Workflow SS Sodium [Moles/Vol] 140 mmol/L Invalid Interpretation Code 136 - 145 mmol/L AO ADM SS Troponin I.cardiac DL <= 0.01 ng/mL [Mass/Vol] 8.2 ng/L Invalid Interpretation Code 0.0 - 51.4 ng/L AO ADM SS Urea nitrogen [Mass/Vol] 19 mg/dL Invalid Interpretation Code 7 - 18 mg/dL AO ADM SS Urea nitrogen/Creatinine [Mass ratio] 15 ratio Invalid Interpretation Code 7 - 27 ratio AO ADM SS WBC 5.4 103/mcL Invalid Interpretation Code 4.6 - 10.8 10^3/mcL AO Workflow SS LABORATORYOrdered By: SYSTEM SYSTEM on 11-20-2021 GFR 51 ml/min/1.73sqm Invalid Interpretation Code AO Chemistry S GFR Non- 42 ml/min/1.73sqm Invalid Interpretation Code AO Chemistry S .GFRon 11-17-2020 GFR 71 ml/min/1.73sqm Normal [facility] ([place]) Comment on above: Result Comment: GFR Population mean for , Non- Americans Ages 20-29 = 116 mL/min/1.73 sq.m. Ages 30-39 = 107 mL/min/1.73 sq.m. Ages 40-49 = 99 mL/min/1.73 sq.m. Ages 50-59 = 93 mL/min/1.73 sq.m. Ages 60-69 = 85 mL/min/1.73 sq.m. Ages 70+ = 75 mL/min/1.73 sq.m. Chronic Kidney Disease: Less than 60 mL/min/1.73 square meters End Stage Renal Disease: Less than 15 mL/min/1.73 square meters Performed By: #### T ROPHS, BMP, MG, CBC, PRO, APTT, ABOG, ANSG, DIFF, MORPH #### [address] [address] #### GFR #### [address] [address] GFR Non- 58 ml/min/1.73sqm Normal [facility] ([place]) Comment on above: Result Comment: GFR Population mean for , Non- Americans Ages 20-29 = 116 mL/min/1.73 sq.m. Ages 30-39 = 107 mL/min/1.73 sq.m. Ages 40-49 = 99 mL/min/1.73 sq.m. Ages 50-59 = 93 mL/min/1.73 sq.m. Ages 60-69 = 85 mL/min/1.73 sq.m. Ages 70+ = 75 mL/min/1.73 sq.m. Chronic Kidney Disease: Less than 60 mL/min/1.73 square meters End Stage Renal Disease: Less than 15 mL/min/1.73 square meters Performed By: #### T ROPHS, BMP, MG, CBC, PRO, APTT, ABOG, ANSG, DIFF, MORPH #### [place] [address] #### GFR #### [address] [address] .Manual Diffon 11-17-2020 Atypical Lymphs 12.0 % High 0.0-5.0 [facility] ([place]) Comment on above: Performed By: #### T ROPHS, BMP, MG, CBC, PRO, APTT, ABOG, ANSG, DIFF, MORPH #### [address] [address] #### GFR #### [address] [address] Bands 2.0 % Normal 0.0-5.0 [facility] ([place]) Comment on above: Performed By: #### T ROPHS, BMP, MG, CBC, PRO, APTT, ABOG, ANSG, DIFF, MORPH #### [place] [address] #### GFR #### [address] [address] Basophil %, Manual 0.0 % Normal 0.0-2.5 [facility] ([place]) Comment on above: Performed By: #### T ROPHS, BMP, MG, CBC, PRO, APTT, ABOG, ANSG, DIFF, MORPH #### [address] [address] #### GFR #### [address] [address] Basophil, Abs Manual 0.00 10 3/mcL Normal 0.00-0.19 A [facility] ([place]) Comment on above: Performed By: #### T ROPHS, BMP, MG, CBC, PRO, APTT, ABOG, ANSG, DIFF, MORPH #### [address] [address] #### GFR #### [place] [address] Eosinophil %, Manual 1.0 % Normal 0.0-7.0 [facility] ([place]) Comment on above: Performed By: #### T ROPHS, BMP, MG, CBC, PRO, APTT, ABOG, ANSG, DIFF, MORPH #### [address] [address] #### GFR #### [address] [address] Eosinophil, Abs Manual 0.11 10 3/mcL Normal 0.00-0.40 [facility] ([place]) Comment on above: Performed By: #### T ROPHS, BMP, MG, CBC, PRO, APTT, ABOG, ANSG, DIFF, MORPH #### [address] [address] #### GFR #### [place] [address] Lymphocyte %, Manual 58.0 % High 10.0-50.0 [facility] ([place]) Comment on above: Performed By: #### T ROPHS, BMP, MG, CBC, PRO, APTT, ABOG, ANSG, DIFF, MORPH #### [place] [address] #### GFR #### [address] [address] Lymphocyte, Abs Manual 7.84 10 3/mcL High 0.77-3.85 [facility] ([place]) Comment on above: Performed By: #### T ROPHS, BMP, MG, CBC, PRO, APTT, ABOG, ANSG, DIFF, MORPH #### [place] [address] #### GFR #### [address] [address] Monocyte %, Manual 3.0 % Normal 1.7-13.0 [facility] ([place]) Comment on above: Performed By: #### T ROPHS, BMP, MG, CBC, PRO, APTT, ABOG, ANSG, DIFF, MORPH #### [place] [address] #### GFR #### [address] [address] Monocyte, Abs Manual 0.34 10 3/mcL Normal 0.15-1.00 A [facility] ([place]) Comment on above: Performed By: #### T ROPHS, BMP, MG, CBC, PRO, APTT, ABOG, ANSG, DIFF, MORPH #### [place] [address] #### GFR #### [address] [address] Neutrophil %, Manual 24.0 % Low 37.0-80.0 [facility] ([place]) Comment on above: Performed By: #### T ROPHS, BMP, MG, CBC, PRO, APTT, ABOG, ANSG, DIFF, MORPH #### [place] [address] #### GFR #### [address] [address] Neutrophil, Abs Manual 2.69 10 3/mcL Low 2.85-6.16 [facility] ([place]) Comment on above: Performed By: #### T ROPHS, BMP, MG, CBC, PRO, APTT, ABOG, ANSG, DIFF, MORPH #### [address] [address] #### GFR #### [address] [address] .Morphon 11-17-2020 Platelet Estimate Normal Normal [facility] ([place]) Comment on above: Performed By: #### T ROPHS, BMP, MG, CBC, PRO, APTT, ABOG, ANSG, DIFF, MORPH #### [address] [address] #### GFR #### [place] [address] RBC morphology finding Nom (Bld) Normal Normal [facility] ([place]) Comment on above: Performed By: #### T ROPHS, BMP, MG, CBC, PRO, APTT, ABOG, ANSG, DIFF, MORPH #### [place] [address] #### GFR #### [address] [address] APTTon 11-17-2020 aPTT Coag (Bld) [Time] 36.4 s Normal 23.7-37.6 [facility] ([place]) Comment on above: Result Comment: For Heparin anticoagulation therapy, the recommended therapeutic range is: 53.6-87.4 seconds (1.5 - 2.5 the normal plasma mean). Patients on heparin therapy may have an extreme result. Performed By: #### T ROPHS, BMP, MG, CBC, PRO, APTT, ABOG, ANSG, DIFF, MORPH #### [address] [address] #### GFR #### [place] [address] Heparin dose (APTT) None Normal [facility] ([place]) Comment on above: Performed By: #### T ROPHS, BMP, MG, CBC, PRO, APTT, ABOG, ANSG, DIFF, MORPH #### [address] [address] #### GFR #### [address] [address] BMPon 11-17-2020 BUN/Creatinine Ratio 22 ratio Normal 7-27 [facility] ([place]) Comment on above: Performed By: #### T ROPHS, BMP, MG, CBC, PRO, APTT, ABOG, ANSG, DIFF, MORPH #### [place] [address] #### GFR #### [address] [address] Calcium [Mass/Vol] 8.7 mg/dL Normal 8.4-10.2 [facility] ([place]) Comment on above: Performed By: #### T ROPHS, BMP, MG, CBC, PRO, APTT, ABOG, ANSG, DIFF, MORPH #### [place] [address] #### GFR #### [place] [address] Chloride [Moles/Vol] 107 mmol/L Normal 98-107 [facility] ([place]) Comment on above: Performed By: #### T ROPHS, BMP, MG, CBC, PRO, APTT, ABOG, ANSG, DIFF, MORPH #### [address] [address] #### GFR #### [place] [address] CO2 [Moles/Vol] 23 mmol/L Normal 23-31 [facility] ([place]) Comment on above: Performed By: #### T ROPHS, BMP, MG, CBC, PRO, APTT, ABOG, ANSG, DIFF, MORPH #### [place] [address] #### GFR #### [place] [address] Creatinine [Mass/Vol] 0.94 mg/dL Normal 0.55-1.02 [facility] ([place]) Comment on above: Performed By: #### T ROPHS, BMP, MG, CBC, PRO, APTT, ABOG, ANSG, DIFF, MORPH #### [address] [address] #### GFR #### [address] [address] Electrolyte Balance 17.0 mEq/L Normal [facility] ([place]) Comment on above: Performed By: #### T ROPHS, BMP, MG, CBC, PRO, APTT, ABOG, ANSG, DIFF, MORPH #### [place] [address] #### GFR #### [place] [address] Glucose [Mass/Vol] 216 mg/dL High 83-110 [facility] ([place]) Comment on above: Performed By: #### T ROPHS, BMP, MG, CBC, PRO, APTT, ABOG, ANSG, DIFF, MORPH #### [place] [address] #### GFR #### [place] [address] Potassium [Moles/Vol] 3.3 mmol/L Low 3.5-5.1 [facility] ([place]) Comment on above: Performed By: #### T ROPHS, BMP, MG, CBC, PRO, APTT, ABOG, ANSG, DIFF, MORPH #### [place] [address] #### GFR #### [place] [address] Sodium [Moles/Vol] 147 mmol/L High 136-145 [facility] ([place]) Comment on above: Performed By: #### T ROPHS, BMP, MG, CBC, PRO, APTT, ABOG, ANSG, DIFF, MORPH #### [place] [address] #### GFR #### [place] [id number] Urea nitrogen [Mass/Vol] 21 mg/dL High 7-18 [facility] ([place]) Comment on above: Performed By: #### T ROPHS, BMP, MG, CBC, PRO, APTT, ABOG, ANSG, DIFF, MORPH #### [address] [address] #### GFR #### [address] [address] CBCon 11-17-2020 Erythrocyte distribution width (RBC) [Ratio] 14.7 % High 11.5-14.5 [facility] ([place]) Comment on above: Performed By: #### T ROPHS, BMP, MG, CBC, PRO, APTT, ABOG, ANSG, DIFF, MORPH #### [place] [address] #### GFR #### [address] [address] Hematocrit (Bld) [Volume fraction] 41.8 % Normal 37.0-47.0 [facility] ([place]) Comment on above: Performed By: #### T ROPHS, BMP, MG, CBC, PRO, APTT, ABOG, ANSG, DIFF, MORPH #### [place] [address] #### GFR #### [address] [address] Hgb 13.4 G/dL Normal 12.0-16.0 [facility] ([place]) Comment on above: Performed By: #### T ROPHS, BMP, MG, CBC, PRO, APTT, ABOG, ANSG, DIFF, MORPH #### [place] [address] #### GFR #### [address] [address] MCH (RBC) [Entitic mass] 27.2 pg Normal 27.0-31.2 [facility] ([place]) Comment on above: Performed By: #### T ROPHS, BMP, MG, CBC, PRO, APTT, ABOG, ANSG, DIFF, MORPH #### [place] [address] #### GFR #### [place] [address] MCHC 32.0 G/dL Low 33.0-37.0 [facility] ([place]) Comment on above: Performed By: #### T ROPHS, BMP, MG, CBC, PRO, APTT, ABOG, ANSG, DIFF, MORPH #### [place] [address] #### GFR #### [place] [address] MCV (RBC) [Entitic vol] 85.0 fL Normal 80.0-94.0 [facility] ([place]) Comment on above: Performed By: #### T ROPHS, BMP, MG, CBC, PRO, APTT, ABOG, ANSG, DIFF, MORPH #### [place] [address] #### GFR #### [place] [address] Platelet 303 10 3/mcL Normal 130-400 [facility] ([place]) Comment on above: Performed By: #### T ROPHS, BMP, MG, CBC, PRO, APTT, ABOG, ANSG, DIFF, MORPH #### [place] [address] #### GFR #### [place] [address] Platelet mean volume (Bld) [Entitic vol] 8.3 fL Normal 7.4-10.4 [facility] ([place]) Comment on above: Performed By: #### T ROPHS, BMP, MG, CBC, PRO, APTT, ABOG, ANSG, DIFF, MORPH #### [place] [address] #### GFR #### [place] [address] RBC 4.92 10 6/mcL Normal 4.20-5.40 [facility] ([place]) Comment on above: Performed By: #### T ROPHS, BMP, MG, CBC, PRO, APTT, ABOG, ANSG, DIFF, MORPH #### [address] [address] #### GFR #### [address] [address] WBC 11.20 10 3/mcL High 4.60-10.80 [facility] ([place]) Comment on above: Performed By: #### T ROPHS, BMP, MG, CBC, PRO, APTT, ABOG, ANSG, DIFF, MORPH #### [place] [address] #### GFR #### [place] [address] Gel ABOon 11-17-2020 ABO/Rh Interp Negative Invalid Interpretation Code [facility] ([place]) Comment on above: Performed By: #### T ROPHS, BMP, MG, CBC, PRO, APTT, ABOG, ANSG, DIFF, MORPH #### [place] [address] #### GFR #### [place] [address] Gel ABSon 11-17-2020 Antibody Screen Gel Negative Normal [facility] ([place]) Comment on above: Performed By: #### T ROPHS, BMP, MG, CBC, PRO, APTT, ABOG, ANSG, DIFF, MORPH #### [address] [address] #### GFR #### [place] [address] MGon 11-17-2020 Magnesium [Mass/Vol] 2.6 mg/dL High 1.8-2.4 [facility] (OR) Comment on above: Performed By: #### T ROPHS, BMP, MG, CBC, PRO, APTT, ABOG, ANSG, DIFF, MORPH #### [place] [address] #### GFR #### [place] [address] PROon 11-17-2020 INR Coag (PPP) [Relative time] 1.0 {INR} Normal 0.9-1.2 [facility] ([place]) Comment on above: Result Comment: Eligio dard Dose 2.0 - 3.0 High Dose 2.5 - 3.5 The recommended therapeutic range for oral anticoagulant therapy is: LOW RISK: Prophylaxis of venous thrombosis INR: 2.0 - 3.0 Treatment of pulmonary embolism 2.0 - 3.0 Prevention of systemic embolism 2.0 - 3.0 HIGH RISK: Mechanical prosthetic valves 2.5 - 3.5 Performed By: #### T ROPHS, BMP, MG, CBC, PRO, APTT, ABOG, ANSG, DIFF, MORPH #### [place] [address] #### GFR #### [place] [address] PT Coag (PPP) [Time] 12.5 s Normal 9.7-14.7 [facility] ([place]) Comment on above: Performed By: #### T ROPHS, BMP, MG, CBC, PRO, APTT, ABOG, ANSG, DIFF, MORPH #### [place] [address] #### GFR #### [address] 11-17-2020 Troponin I High Sensitivity 219.0 ng/L High 0.0-51.4 [facility] ([place]) Comment on above: Performed By: #### T ROPHS, BMP, MG, CBC, PRO, APTT, ABOG, ANSG, DIFF, MORPH #### [place] [address] #### GFR #### [place] [address] Troponin I High Sensitivity 31.5 ng/L Normal 0.0-51.4 [facility] ([place]) Comment on above: Performed By: #### T ROPHS, BMP, MG, CBC, PRO, APTT, ABOG, ANSG, DIFF, MORPH #### [place] [address] #### GFR #### [address] [place], [place] [address] XR CHEST 1 VIEWon 11-17-2020 XR CHEST 1 VIEW ORIGINAL EXAMINATION: ONE XRAY VIEW OF THE CHEST 11/16/2020 10:33 pm COMPARISON: None. HISTORY: ORDERING SYSTEM PROVIDED HISTORY: Reason for Exam: chest pain FINDINGS: There is slight cardiomegaly without vascular congestion. No consolidation, atelectasis or pleural fluid seen. There are minor degenerative changes noted in the spine. IMPRESSION: No acute abnormality. Interpreted by: Stanley Perkins Preliminary Report By: Stanley Perkins Electronically signed By Stanley Perkins Dictated Date: 11/16/2020 10:54:51 PM Prelim Date: 11/16/2020 10:55:16 PM Sign Date: 11/16/2020 10:55:16 PM Ordering Provider: IMANI Horvath [facility] ([place]) Milagros 11-16-2020 Base excess Calc (Bld) [Moles/Vol] -12.71920 mmol/L Low -2.4-2.3 [facility] ([place]) Comment on above: Performed By: #### A BG #### [address] [address] CO2 [Moles/Vol] 17 mmol/L Low 19-24 [facility] ([place]) Comment on above: Performed By: #### A BG #### [address] [address] HCO3 (Bld) [Moles/Vol] 15.7 mmol/L Low 22.0-26.0 [facility] ([place]) Comment on above: Performed By: #### A BG #### [address] [address] Oxygen (Bld) [Partial pressure] 114.0 mm[Hg] High 80.0-100.0 [facility] ([place]) Comment on above: Performed By: #### A BG #### [address] [address] Oxygen saturation in Blood 98 % Normal 95-98 Pending sale to [facility]) Comment on above: Performed By: #### A BG #### [address], [place] [address] pCO2 37.3 mmHg Normal 35.0-45.0 [facility] ([place]) Comment on above: Performed By: #### A #### [place] [address] [place], [place] [address] pH (Bld) 7.23 [pH] Low 7.35-7.45 [facility] ([place]) Comment on above: Performed By: #### A BG #### [place] [address] [place], [place] [address] CNOVon 03-05-2018 CNOV Office Visit (GSTNOR) GLORY HENRIQUEZ ([id number]) 1945 [facility] Time Provider Nvtcqkpklm91/13/18 2:45 PM ZAIRA APARICIO GSTNOR During your visit today, we recorded the following information about you: Pulse Blood pressure Weight Height 72/minute 140/70 84.4 kg 1.524 Paulina Aparicio MD 03/05/2018 4:21 PM Gemma Henriquez is a 72 year old female here today for Follow up of GERD/dysphagia- dilated witjh balloon- no further significant dysphagia. Colonoscopy showed diverticulosis. Had Electro-destruction of hemorrhoids.Current Outpatient Prescriptions:VITAMIN D 50,000 unit capsule Take one capsule by mouth per week for 8 weeksthen one capsule monthly thereafterspironolactone (ALDACTONE) 25 mg tabletmeloxicam (MOBIC) 15 mg tablet Take 15 mg by mouth once daily.tolterodine (DETROL) 2 mg tablet Take 2 mg by mouth twice daily.esomeprazole (NEXIUM) 20 mg capsule Take 20 mg by mouth DAILY (6 AM).pregabalin (LYRICA) 75 mg capsule Take 75 mg by mouth twice daily.lisinopril (ZESTRIL, PRINIVIL) 10 mg tablet Take 1 tablet by mouth once daily.Aspirin 81 mg Tab Take 81 mg by mouth.naproxen sodium(ALEVE 220 MG TAB) 2 tabs q 4-6 hrs prn painNo current facility-administered medications for this visit.ALLERGIESAllergen Reactions- Acetaminophen Other: See Comments- Adhesive Tape (Arianna* Other: See Comments Heath skin- Bee Pollen Other: See Comments Swelling and throat closes- Latex Rash- Morphine Mental Status Change- Penicillins Rash- Vicodin [Hydrocodon* GI UpsetSocial HistorySubstance Use Topics- Smoking status: Never Smoker- Smokeless tobacco: Never Used- Alcohol use NoPAST MEDICAL HISTORYDiagnosis Date- Abnormal weight loss- Arthropathy, unspecified, site unspecified rheumatoid arthritis - neck, back, knees, hands- DVT (deep venous thrombosis) ([facility]) 2003- Esophageal reflux- Esophageal stenosis- Unspecified essential hypertensionPAST SURGICAL HISTORYProcedure Laterality Date- APPENDECTOMY- COLONOSCOPY 04/02/2013 Multiple medium-mouthed diverticula were found in the sigmoid colon, normalbiopsy, non bleeding internal hermorrhoid- COLONOSCOPY 11/29/2017- EGD 05/15/2016 small hiatus hernia, motility disorder, acute gastritis- EGD DILATION 07/24/2017 Benign-appearing esophageal stenosis. Dilated- EGD W/O OR W/BRUSH/WASH 04/02/2013 EGD- EXCIS BREAST LESION 10/01/09 left excisional Bx- PAST SURGICAL HISTORY OF Breast Biopsies - 2 right , 3 left- REMOVAL GALLBLADDER 2005 Cholecystectomy- REMOVAL OF TONSILS,<14 Y/O Tonsillectomy- REPAIR ROTATOR CUFF,ACUTE Rotator cuff repair right arm- TOTAL ABDOM HYSTERECTOMY Hysterectomy, ADOLPH - 1 ovaries- TOTAL KNEE REPLACEMENT 2003,2007 Knee replacement, total Right and leftFAMILY HISTORYProblem Relation Age of Onset- Breast Cancer Mother age 70- Diabetes Father Parkinsons, HTN, CAD, PR- Hypertension Father- Stroke Father- None Brother MVA age 13- Diabetes Brother- Asthma Brother- None Brother- None Sister- Hypertension Brother- Hypertension Brother- Psychiatry BrotherREVIEW OF SYSTEMSReview of SystemsHENT: Positive for trouble swallowing.Cardiovascular: Positive for leg swelling.Gastrointestinal: Positive for anal bleeding.All other systems reviewed and are negative.PHYSICAL EXAMBP 140/70 Pulse 72 Ht 5' 0 (1.52m) Wt 186 lb (84.4kg) SpO2 94% BMI36.33 kg/(m2).Physical ExamConstitutional: She is oriented to person, place, and time. She appearswell-developed and well-nourished.HENT:Head: Normocephalic and atraumatic.Right Ear: External ear normal.Left Ear: External ear normal.Nose: Nose normal.Mouth/Throat: Oropharynx is clear and moist.Eyes: Pupils are equal, round, and reactive to light. Conjunctivae and EOM arenormal.Neck: Normal range of motion. Neck supple.Cardiovascular: Normal rate, regular rhythm, normal heart sounds and intactdistal pulses.Pulmonary/Chest: Effort normal and breath sounds normal.Abdominal: Soft. Bowel sounds are normal.Tender at LLQMusculoskeletal: Normal range of motion.Neurological: She is alert and oriented to person, place, and time. She hasnormal reflexes.Skin: Skin is warm and dry.Psychiatric: She has a normal mood and affect. Her behavior is normal. Judgmentand thought content normal.I have confirmed and edited as necessary, the PFSH, HPI and ROS obtained byothers.ASSESSMENT:Gastro esophageal reflux disease without esophagitis (primary encounterdiagnosis)Lower abdominal painEsophageal dysphagiaDiverticulosis of large intestine without hemorrhagePLAN:No orders found for this visit on 03/05/18.Return in about 1 year (around 03/05/2019).Contin. NexiumGhLANA HensonATE: 03/05/18TIME: 3:20 PMReferring Provider: ZAIRA APARICIO [[id number]]Allergies As of Date: 03/05/2018 Noted Allergy ReactionACETAMINOPHEN 01/12/2015 14 - Other: See CommentsADHESIVE TAPE (ROSINS) 01/18/2006 14 - Other: See Comments Comments: Heath skinBEE POLLEN 02/03/2005 14 - Other: See Comments Comments: Swelling and throat closesLATEX 11/03/2008 2 - RashMORPHINE 04/01/2013 1 - Mental Status ChangePENICILLINS 02/03/2005 2 - RashVICODIN (HYDROCODONE-ACETAMINOPHE* 02/03/2005 8 - GI UpsetDate Reviewed: 03/05/2018Reviewed by: Chantale Galeano CCMA - Fully AssessedReason for Visit: Abnormal weight loss [Other] Cmt: follow upPrimary Visit Diagnosis:Gastroesophageal reflux disease without esophagitis [K21.9] Other Visit Diagnoses:Lower abdominal pain [R10.30] Esophageal dysphagia [R13.10] Diverticulosis of large intestine without hemorrhage [K57.30]Prescriptions as of 03/05/2018 Sig: VITAMIN D2 50,000 [...] TABLET 2 tabs q 4-6 hrs prn painProblem List As Of Date 03/05/2018 Noted Resolved [...] unspecified cause *INVALID FOR* Diarrhea [R19.7] INVALID FOR*Medications Discontinued During This Encounter PHYLLIS 236-22.74-6.74 -5.86 gram* 0 10/07/2017 03/05/2018 Class: Historical Med Sig: as directed. Disc: Course of therapy completedDisposition: Return in about 1 year (around 03/05/2019).Follow-up and Disposition History RecordedEncounter Number: [id number] Status:Closed by ZAIRA APARICIO MD on 03/05/18 [facility] PROGRESSon 03-05-2018 Protein mass conc HNO ID: [id number] thor: Zaira Mendez MirService: (none)Author Type: PhysicianType: Progress NotesFiled: 03/05/2018 4:21 PMNote Text:Sarah Henriquez is a 72 year old female here today for Follow up of GERD/dysphagia- dilated witjh balloon- no further significant dysphagia. Colonoscopy showed diverticulosis. Had Electro-destruction ofhemorrhoids.Current Outpatient Prescriptions:VITAMIN D 50,000 unit capsule Take one capsule by mouth per week for 8weeks then one capsule monthly thereafterspironolactone (ALDACTONE) 25 mg tabletmeloxicam (MOBIC) 15 mg tablet Take 15 mg by mouth once daily.tolterodine (DETROL) 2 mg tablet Take 2 mg by mouth twice daily.esomeprazole (NEXIUM) 20 mg capsule Take 20 mg by mouth DAILY (6 AM).pregabalin (LYRICA) 75 mg capsule Take 75 mg by mouth twice daily.lisinopril (ZESTRIL, PRINIVIL) 10 mg tablet Take 1 tablet by mouth oncedaily.Aspirin 81 mg Tab Take 81 mg by mouth.naproxen sodium(ALEVE 220 MG TAB) 2 tabs q 4-6 hrs prn painNo current facility-administered medications for this visit.ALLERGIESAllergen Reactions- Acetaminophen Other: See Comments- Adhesive Tape (Arianna* Other: See Comments Heath skin- Bee Pollen Other: See Comments Swelling and throat closes- Latex Rash- Morphine Mental Status Change- Penicillins Rash- Vicodin [Hydrocodon* GI UpsetSocial HistorySubstance Use Topics- Smoking status: Never Smoker- Smokeless tobacco: Never Used- Alcohol use NoPAST MEDICAL HISTORYDiagnosis Date- Abnormal weight loss- Arthropathy, unspecified, site unspecified rheumatoid arthritis - neck, back, knees, hands- DVT (deep venous thrombosis) ([facility]) 2003- Esophageal reflux- Esophageal stenosis- Unspecified essential hypertensionPAST SURGICAL HISTORYProcedure Laterality Date- APPENDECTOMY- COLONOSCOPY 04/02/2013 Multiple medium-mouthed diverticula were found in the sigmoid colon,normal biopsy, non bleeding internal hermorrhoid- COLONOSCOPY 11/29/2017- EGD 05/15/2016 small hiatus hernia, motility disorder, acute gastritis- EGD DILATION 07/24/2017 Benign-appearing esophageal stenosis. Dilated- EGD W/O OR W/BRUSH/WASH 04/02/2013 EGD- EXCIS BREAST LESION 10/01/09 left excisional Bx- PAST SURGICAL HISTORY OF Breast Biopsies - 2 right , 3 left- REMOVAL GALLBLADDER 2005 Cholecystectomy- REMOVAL OF TONSILS,<14 Y/O Tonsillectomy- REPAIR ROTATOR CUFF,ACUTE Rotator cuff repair right arm- TOTAL ABDOM HYSTERECTOMY Hysterectomy, ADOLPH - 1 ovaries- TOTAL KNEE REPLACEMENT 2003,2007 Knee replacement, total Right and leftFAMILY HISTORYProblem Relation Age of Onset- Breast Cancer Mother age 70- Diabetes Father Parkinsons, HTN, CAD, PR- Hypertension Father- Stroke Father- None Brother MVA age 13- Diabetes Brother- Asthma Brother- None Brother- None Sister- Hypertension Brother- Hypertension Brother- Psychiatry BrotherREVIEW OF SYSTEMSReview of [facility]ed Medical CenterHENT: Positive for trouble swallowing.Cardiovascular: Positive for leg swelling.Gastrointestinal: Positive for anal bleeding.All other systems reviewed and are negative.PHYSICAL EXAMBP 140/70 Pulse 72 Ht 5' 0 (1.52m) Wt 186 lb (84.4kg) SpO2 94% BMI 36.33 kg/(m2).Physical ExamConstitutional: She is oriented to person, place, and time. She appearswell-developed and well-nourished.HENT:Head: Normocephalic and atraumatic.Right Ear: External ear normal.Left Ear: External ear normal.Nose: Nose normal.Mouth/Throat: Oropharynx is clear and moist.Eyes: Pupils are equal, round, and reactive to light. Conjunctivae and EOMare normal.Neck: Normal range of motion. Neck supple.Cardiovascular: Normal rate, regular rhythm, normal heart sounds andintact distal pulses.Pulmonary/Chest: Effort normal and breath sounds normal.Abdominal: Soft. Bowel sounds are normal.Tender at LLQMusculoskeletal: Normal range of motion.Neurological: She is alert and oriented to person, place, and time. Shehas normal reflexes.Skin: Skin is warm and dry.Psychiatric: She has a normal mood and affect. Her behavior is normal.Judgment and thought content normal.I have confirmed and edited as necessary, the PFSH, HPI and ROS obtainedby others.ASSESSMENT:Gastroes ophageal reflux disease without esophagitis (primary encounterdiagnosis)Lower abdominal painEsophageal dysphagiaDiverticulosis of large intestine without hemorrhagePLAN:No orders found for this visit on 03/05/18.Return in about 1 year (around 03/05/2019).Contin. NexiumZaira Aparicio, MDDATE: 03/05/18TIME: 3:20 PM Normal [facility] HISTORY PHYSICALon HISTORY PHYSICAL HNO ID: [id number] thor: Zaira Mendez MirService: (none)Author Type: PhysicianType: HANDPFiled: 11/29/2017 11:28 AMNote Text:HISTORY AND PHYSICAL Glory Henriquez, 72 year old femaleCurrent history and physical on file: NoIs a new History and Physical required for today's visit? YesIndication for procedure: Abdominal pain and weight lossPROCEDURE(S) SCHEDULED FOR: Colonoscopy with or without biopsies and with or without removal ofpolyps or lesions, dilation (any means), treatment of bleeding (anymeans), based on clinical findings.BASELINE BEHAVIOR: CalmBASELINE ORIENTATION: A AND O x3All medications and allergies reviewed: YesSkin Assessment: Warm dry muscus membranes pinkAirway/Respiratory Assessment:Airway: visualization of the uvula- YesMouth: opening greater than 2 fingerbreadths- YesNeck: full range of motion- YesBreath sounds clear/equal- YesCardiac Assessment: Regular rate and rhythm without murmurAbdominal Assessment: Abdomen soft, non-tender, no masses or organomegaly.Sedation Plan: MACAdditional Comments: Juan Aparicio MD Normal [facility] SURGICAL PATHOLOGYon 018 SURGICAL PATHOLOGY [facility]: [id number] Physician: ZAIRA APARICIO F INAL DIAGNOSISAnorectal junction, biopsy (A) - Fragments of squamous and colonic mucosawith hyperplastic changes.- Separate fragment of mucopurulent debris.- Negative for dysplasia and malignancy. J/AP/srgissel 11/30/2017 Romero Ybarra M.D.(Electronic Signature) S PECIMEN SUBMITTEDA: ANAL-RECTUM JUNCTION, BIOPSY CLINICAL DATApain/wt lossGROSS DESCRIPTIONA. Received in formalin are two pieces of lozano, soft tissue aggregating to0.5 x 0.2 x 0.2 cm. Totally submitted in one cassette.Gross examination performed at [facility], [address] [place], [place] [id number] 11/30/2017 12:45:48 AMPatient ID #: [id number] of Report: 11/30/2017Date of Procedure: 11/29/2017Date of Receipt: 11/29/2017Submitted by: ZAIRA Quintanacation: [facility]agn[facility] interpretation performed at [place] [address]. Normal [facility] CNCOon 10-23-2017 CNCO Letter TextColonosco py (MIRALAX - SPLIT DOSE) InstructionsAppointment Date: 11/29/17 At 11:00 AMFacility: [facility] [address] [place] [address],[place] [address]Uzeqrg At: 10:15 AMSpecial instructions: yesTo ensure a successful exam, please follow all instructions carefully.You MUST arrange a ride for the day of your exam. If you fail to arrangeacceptable transportation, your procedure will need to be rescheduled. Pleasebring a list of all your current medications, including any gcyp-adj-ktvxisbjxrbejfwih s with you. If you must cancel or reschedule your appointment,please call our office at [phone] as soon as possible.DIABETIC PATIENTS Use G2 (Gatorade 2)Take only 1/2 of your morning dose of insulin or tablets the day before yourexam. Do not take any more of your diabetic medications until the procedureis over and you have resumed eating again. Drink regular liquids (notdiabetic) and monitor your sugar throughout the day you are on clear liquids.If your sugar gets too low, drink some apple juice.PURCHASE THE FOLLOWING SUPPLIES AT YOUR LOCAL PHARMACY:4 Dulcolax laxative tablets containing 5mg of Bisacodyl each (NOT Dulcolaxstool softener)One 8.3oz bottle of Miralax (238 grams) or generic equivalent.64 oz clear liquid (NOT RED). Gatorade, G2, Gatorade Ice, Powerade orPowerade Zero are acceptable.7 DAYS BEFORE YOUR COLONOSCOPY:If you take aspirin or NSAIDS such as Advil, Motrin, Celebrex or Ibuprofen,you may continue to take them as usual unless otherwise instructed by yourphysician. You should discuss this with your physician in advance of theprocedure. Ask your doctor for specific instructions if you take a bloodthinner like Plavix, Pradaxa, Clopidogrel, Coumadin, Warfarin, Effient,Prasugrel or Lovenox.3 DAYS BEFORE YOUR COLONOSCOPY:Stop eating all nuts, seeds and popcorn.1 DAY BEFORE YOUR COLONOSCOPY:Begin a clear liquid diet. Drink at least 8 glasses of water during the dayto avoid dehydration.At 5pm, take 4 Dulcolax tablets. Mix 64 oz liquid with 8.[address] the refrigerator (DO NOT ADD ICE)Ar 6pm, drink 32 oz of the Miralax/Gatorade solution.4 hours prior to the procedure, drink the remaining 32 oz of theMiralax/Gatorade solution.Clear Liquid: Not Clear LiquidGatorade, Pedialyte or Powerade No red items of any kindClear broth or bouillon No alcoholCoffee or tea (no milk or non-dairy creamer) No milk or non-dairy creamersCarbonated and non-carbonated soft drinks No noodles or vegetables in soupKool-Aid or other fruit flavored drinks No juice with pulpStrained fruit juices No liquid you cannot see throughJello, popsicles, hard candyDAY OF YOUR COLONOSCOPY:You may take all of your morning medications as usual with 4 oz of water upto 3 hours before your procedure.2 hours before, stop drinking all clear liquids.You are ready for the exam if you followed all instructions and your stool isno longer formed, but clear or yellow liquid.COLON CLEANSING TIPS1. Stay near a toilet! You will have diarrhea, which can be quite sudden.This is normal. 3. It is common to experience abdominal discomfort untilthe stool has flushed from your colon (this may take 2 to 4 hours, andoccasionally significantly longer).2. Rarely, people may experience nausea or vomiting with the prep. If thisoccurs, give yourself a 30-90 minute break, rinse your mouth or brush yourteeth, then continue drinking the prep solution. 4. Anal skin irritationor a flare of hemorrhoidal inflammation may occur and can be treated with avariety of over the counter remedies including hydrocortisone creams, babywipes or Tucks pads. Avoid products containing alcohol. If you have aprescription for hemorrhoid cream, you may use it. Do not use suppositories. Normal [facility] CNCOon 08-28-2017 CNCO Letter TextCOLONOSCOPY-GOLYTELYNO SOLID FOOD THE DAY BEFORE THIS EXAMAppointment Date: 10/18/17 at 9:00 AMFacility: [facility]- [address] [place] [id number] At: 8:15 AMSpecial Instructions: yesYou must have a responsible adult to drive you home and assist you at homewhile you finish recovering from your sedation.Please bring only one person with you.Bring a list of your medications, insurance card and cdl b driver's license.Arrive 30-45 minutes before your procedure time.Purchase at the Pharmacy: Fill prescription for Golytely and 4 Dulcolaxtablets.THE DAY BEFORE YOUR EXAM:1. FOLLOW A CLEAR LIQUID DIET ALL DAY.2. At 1:00PM, take 4 Dulcolax tablets.3. At 5:00PM, start drinking solution. Drink a total of eight 8 oz glasses,one every 15-20 minutes. Please put the rest of the solution in therefrigerator for tomorrow morning.THE DAY OF YOUR EXAM1. At 8:00 AM (four hours before your procedure) : drink one 8 oz glassevery 15-20 minutes. Drink a total of four 8 oz glasses. Discard theremainder of the solution.2. DO NOT DRINK ANYTHING ELSE AFTER THIS STEP IS COMPLETED. Nothingby mouth including clear liquids, food, gum and hard candy.5 DAYS BEFORE EXAMSTOP TAKING ASPIRIN OR ASPIRIN CONTAINING PRODUCTS, VITAMIN E AND IRON, BLOODTHINNERS SUCH COUMADIN, PLAVIX, AGGRENOX.DIABETICS ONLYTake only 1/2 of your daily dose of insulin or tablets the day before yourexam. Do not take any more of your diabetic medications until the procedureis over and you have resumed eating again. Drink regular liquids, notdiabetic and monitor your sugar throughout the day you are on clear liquids.If your sugar gets too low, drink some apple juice.It is very important that you drink all of the solution that we tell you todrink, if you do not complete the prep, your procedure may be cancelled.Any questions, please call our office at [phone] Ext [phone]. Normal [facility] CNOVon 08-28-2017 CNOV Office Visit (GSTNOR) GLORY HENRIQUEZ ([id number]) 1945 [facility] Department08/28/17 2:30 PM ZAIRA APARICIO GSTNOR During your visit today, we recorded the following information about you: Pulse Blood pressure Weight Height 80/minute 126/80 85.7 kg 1.524 mMZaira rodriguez 08/28/2017 4:05 PM SignedRecheck (EGD)Sarah Henriquez is a 72 year old female here today for follow up 07/24/17 EGD withdilation done for patient complaint of dysphagia. Findings were moderatelysevere, benign appearing stenosis, normal stomach. Swallowing Generallybetter.EGD in 06/09 showed mainly motility disorder. No dilation was performed by .Esophagram- peristalsis maintained, small SHH, ba pill hesitated at loweresophagus temporarily, No achalasia.Today patient reports she is having some severe abdominal cramping, nobloating, no bowel problems. No certain triggers, may wake her from sleep, nodifference in meal times or bowel habits. May last from all day, then notappear for several days. Has been on Bentyl in the past without relief.Radioisotope gastric emptying study 2 wks at [facility]. Was neg. Dr. Mendenhallested colonoscopy.Last colonoscopy done by Dr. Yosvany Koo in 2012.Current Outpatient Prescriptions:spironolacto ne (ALDACTONE) 25 mg tabletmeloxicam (MOBIC) 15 mg tablet Take 15 mg by mouth once daily.tolterodine (DETROL) 2 mg tablet Take 2 mg by mouth twice daily.esomeprazole (NEXIUM) 20 mg capsule Take 20 mg by mouth DAILY (6 AM).pregabalin (LYRICA) 75 mg capsule Take 75 mg by mouth twice daily.lisinopril (ZESTRIL, PRINIVIL) 10 mg tablet Take 1 tablet by mouth once daily.Aspirin 81 mg Tab Take 81 mg by mouth.naproxen sodium(ALEVE 220 MG TAB) 2 tabs q 4-6 hrs prn painpeg 3350-Electrolytes (GOLYTELY) 236-22.74-6.74 -5.86 gram suspension Take asdirectedNo current facility-administered medications for this visit.ALLERGIESAllergen Reactions- Acetaminophen Other: See Comments- Adhesive Tape (Arianna* Other: See Comments Heath skin- Bee Pollen Other: See Comments Swelling and throat closes- Latex Rash- Morphine Mental Status Change- Penicillins Rash- Vicodin [Hydrocodon* GI UpsetSocial HistorySubstance Use Topics- Smoking status: Never Smoker- Smokeless tobacco: Never Used- Alcohol use NoPAST MEDICAL HISTORYDiagnosis Date- Arthropathy, unspecified, site unspecified rheumatoid arthritis - neck, back, knees, hands- DVT (deep venous thrombosis) ([facility]) 2003- Esophageal reflux- Unspecified essential hypertensionPAST SURGICAL HISTORYProcedure Laterality Date- APPENDECTOMY- COLONOSCOPY 04/02/2013 Multiple medium-mouthed diverticula were found in the sigmoid colon, normalbiopsy, non bleeding internal hermorrhoid- EGD 05/15/2016 small hiatus hernia, motility disorder, acute gastritis- EGD DILATION 07/24/2017 Benign-appearing esophageal stenosis. Dilated- EGD W/O OR W/BRUSH/WASH 04/02/2013 EGD- EXCIS BREAST LESION 10/01/09 left excisional Bx- PAST SURGICAL HISTORY OF Breast Biopsies - 2 right , 3 left- REMOVAL GALLBLADDER 2005 Cholecystectomy- REMOVAL OF TONSILS,<14 Y/O Tonsillectomy- REPAIR ROTATOR CUFF,ACUTE Rotator cuff repair right arm- TOTAL ABDOM HYSTERECTOMY Hysterectomy, ADOLPH - 1 ovaries- TOTAL KNEE REPLACEMENT 2003,2007 Knee replacement, total Right and leftFAMILY HISTORYProblem Relation Age of Onset- Breast Cancer Mother age 70- Diabetes Father Parkinsons, HTN, CAD, PR- Hypertension Father- Stroke Father- None Brother MVA age 13- Diabetes Brother- Asthma Brother- None Brother- None Sister- Hypertension Brother- Hypertension Brother- Psychiatry BrotherREVIEW OF SYSTEMSReview of SystemsConstitutional: Positive for appetite change and unexpected weight change.Gastrointestinal: Positive for abdominal pain.All other systems reviewed and are negative.PHYSICAL EXAMBP 126/80 Pulse 80 Ht 5' 0 (1.52m) Wt 189 lb (85.7kg) BMI 36.91kg/(m2).Physical ExamConstitutional: She is oriented to person, place, and time. She appearswell-developed and well-nourished.HENT:Head: Normocephalic and atraumatic.Right Ear: External ear normal.Left Ear: External ear normal.Nose: Nose normal.Mouth/Throat: Oropharynx is clear and moist.Eyes: Conjunctivae and EOM are normal. Pupils are equal, round, and reactive tolight.Neck: Normal range of motion. Neck supple.Cardiovascular: Normal rate, regular rhythm, normal heart sounds and intactdistal pulses.Pulmonary/Chest: Effort normal and breath sounds normal.Abdominal: Soft. Bowel sounds are normal.Musculoskeletal: Normal range of motion.Neurological: She is alert and oriented to person, place, and time. She hasnormal reflexes.Skin: Skin is warm and dry.Psychiatric: She has a normal mood and affect. Her behavior is normal. Judgmentand thought content normal.ASSESSMENT:Generali zed abdominal pain (primary encounter diagnosis)Abnormal weight lossPLAN:Office Visit on 08/28/17-COLONOSCOPY - DIAGNOSTICNo Follow-up on file.Zaira AparicioiDATE: 08/28/17TIME: 4:04 PMI have confirmed and edited as necessary, the PFSH, HPI and ROS obtained byotherceli Pizano Provider: ZAIRA APARICIO [[id number]]Allergies As of Date: 08/28/2017 Noted Allergy ReactionACETAMINOPHEN 01/12/2015 14 - Other: See CommentsADHESIVE TAPE (ROSINS) 01/18/2006 14 - Other: See Comments Comments: Heath skinBEE POLLEN 02/03/2005 14 - Other: See Comments Comments: Swelling and throat closesLATEX 11/03/2008 2 - RashMORPHINE 04/01/2013 1 - Mental Status ChangePENICILLINS 02/03/2005 2 - RashVICODIN (HYDROCODONE-ACETAMINOPHE* 02/03/2005 8 - GI UpsetDate Reviewed: 08/28/2017Reviewed by: Zaira Aparicio - Fully AssessedReason for Visit: Recheck [92] Cmt: EGDReason For Visit History RecordedPrimary Visit Diagnosis:Generalized abdominal pain [R10.84] Other Visit Diagnosis:Abnormal weight loss [R63.4]Order(s):COLONOSCOP Y - DIAGNOSTIC [[id number]] Order #: [id number] FUTURE peg 3350-Electrolytes (GOLYTELY) 236-22.74-6.74 -5.86 gram suspensionTake as directedDisp: 1 BottleRfl: 0 SHALINI PT ED DIGESTIVE DISEASES [[id number]] Order #: [id number]. #:[id number] [id number]: 1Prescriptions as of 08/28/2017 Sig: SPIRONOLACTONE 25 MG [...] pain PEG 3350-ELECTROLYTES 236 GRA* Take as directedProblem List As Of Date 08/28/2017 Noted Resolved [...] unspecified cause *INVALID FOR* Diarrhea [R19.7] INVALID FOR*Prescriptions ordered this encounter Disp Refills Start End PEG 3350-ELECTROLYTES 236 GRAM-22.74* 1 Malick* 0 08/28/2017 08/29/2017 Sig: Take as directedMedications Discontinued During This Encounter codeine-guaiFENesin (ROBITUSSIN AC) * 04/02/2017 08/28/2017 Class: Historical Med Sig: Disc: Reason for discontinue is not on file.Follow-up and Disposition History RecordedEncounter Number: [id number] Status:Closed by ZAIRA APARICIO MD on 08/28/17 Normal [facility] PROGRESSon 08-28-2017 Protein mass conc HNO ID: [id number] thor: Zaira Aparicio: (none)Author Type: PhysicianType: Progress NotesFiled: 08/28/2017 4:05 PMNote Text:Recheck (EGD)Sarah Henriquez is a 72 year old female here today for follow up 07/24/17 EGDwith dilation done for patient complaint of dysphagia. Findings weremoderately severe, benign appearing stenosis, normal stomach. SwallowingGenerally better.EGD in 06/09 showed mainly motility disorder. No dilation was performed byDr. Bradford.Esophagram- peristalsis maintained, small SHH, ba pill hesitated at loweresophagus temporarily, No achalasia.Today patient reports she is having some severe abdominal cramping, nobloating, no bowel problems. No certain triggers, may wake her from sleep,no difference in meal times or bowel habits. May last from all day, thennot appear for several days. Has been on Bentyl in the past withoutrelief.Radioisotope gastric emptying study 2 wks at [facility]. Was neg. suggested colonoscopy.Last colonoscopy done by Dr. Yosvany Koo in 2012.Current Outpatient Prescriptions:spironolacto ne (ALDACTONE) 25 mg tabletmeloxicam (MOBIC) 15 mg tablet Take 15 mg by mouth once daily.tolterodine (DETROL) 2 mg tablet Take 2 mg by mouth twice daily.esomeprazole (NEXIUM) 20 mg capsule Take 20 mg by mouth DAILY (6 AM).pregabalin (LYRICA) 75 mg capsule Take 75 mg by mouth twice daily.lisinopril (ZESTRIL, PRINIVIL) 10 mg tablet Take 1 tablet by mouth oncedaily.Aspirin 81 mg Tab Take 81 mg by mouth.naproxen sodium(ALEVE 220 MG TAB) 2 tabs q 4-6 hrs prn painpeg 3350-Electrolytes (GOLYTELY) 236-22.74-6.74 -5.86 gram suspension Takeas directedNo current facility-administered medications for this visit.ALLERGIESAllergen Reactions- Acetaminophen Other: See Comments- Adhesive Tape (Arianna* Other: See Comments Heath skin- Bee Pollen Other: See Comments Swelling and throat closes- Latex Rash- Morphine Mental Status Change- Penicillins Rash- Vicodin [Hydrocodon* GI UpsetSocial HistorySubstance Use Topics- Smoking status: Never Smoker- Smokeless tobacco: Never Used- Alcohol use NoPAST MEDICAL HISTORYDiagnosis Date- Arthropathy, unspecified, site unspecified rheumatoid arthritis - neck, back, knees, hands- DVT (deep venous thrombosis) ([facility]) 2003- Esophageal reflux- Unspecified essential hypertensionPAST SURGICAL HISTORYProcedure Laterality Date- APPENDECTOMY- COLONOSCOPY 04/02/2013 Multiple medium-mouthed diverticula were found in the sigmoid colon,normal biopsy, non bleeding internal hermorrhoid- EGD 05/15/2016 small hiatus hernia, motility disorder, acute gastritis- EGD DILATION 07/24/2017 Benign-appearing esophageal stenosis. Dilated- EGD W/O OR W/BRUSH/WASH 04/02/2013 EGD- EXCIS BREAST LESION 10/01/09 left excisional Bx- PAST SURGICAL HISTORY OF Breast Biopsies - 2 right , 3 left- REMOVAL GALLBLADDER 2005 Cholecystectomy- REMOVAL OF TONSILS,<14 Y/O Tonsillectomy- REPAIR ROTATOR CUFF,ACUTE Rotator cuff repair right arm- TOTAL ABDOM HYSTERECTOMY Hysterectomy, ADOLPH - 1 ovaries- TOTAL KNEE REPLACEMENT 2003,2007 Knee replacement, total Right and leftFAMILY HISTORYProblem Relation Age of Onset- Breast Cancer Mother age 70- Diabetes Father Parkinsons, HTN, CAD, PR- Hypertension Father- Stroke Father- None Brother MVA age 13- Diabetes Brother- Asthma Brother- None Brother- None Sister- Hypertension Brother- Hypertension Brother- Psychiatry BrotherREVIEW OF SYSTEMSReview of SystemsConstitutional: Positive for appetite change and unexpected weight change.Gastrointestinal: Positive for abdominal pain.All other systems reviewed and are negative.PHYSICAL EXAMBP 126/80 Pulse 80 Ht 5' 0 (1.52m) Wt 189 lb (85.7kg) BMI 36.91kg/(m2).Physical ExamConstitutional: She is oriented to person, place, and time. She appearswell-developed and well-nourished.HENT:Head: Normocephalic and atraumatic.Right Ear: External ear normal.Left Ear: External ear normal.Nose: Nose normal.Mouth/Throat: Oropharynx is clear and moist.Eyes: Conjunctivae and EOM are normal. Pupils are equal, round, andreactive to light.Neck: Normal range of motion. Neck supple.Cardiovascular: Normal rate, regular rhythm, normal heart sounds andintact distal pulses.Pulmonary/Chest: Effort normal and breath sounds normal.Abdominal: Soft. Bowel sounds are normal.Musculoskeletal: Normal range of motion.Neurological: She is alert and oriented to person, place, and time. Shehas normal reflexes.Skin: Skin is warm and dry.Psychiatric: She has a normal mood and affect. Her behavior is normal.Judgment and thought content normal.ASSESSMENT:Generali zed abdominal pain (primary encounter diagnosis)Abnormal weight lossPLAN:Office Visit on 08/28/17-COLONOSCOPY - DIAGNOSTICNo Follow-up on file.Zaira AparicioiDATE: 08/28/17TIME: 4:04 PMI have confirmed and edited as necessary, the PFSH, HPI and ROS obtainedby others. Amy Velasquez Ma Normal [facility] HISTORY PHYSICALon HISTORY PHYSICAL HNO ID: [id number] thor: Zaira Mendez MirService: (none)Author Type: PhysicianType: HANDPFiled: 07/24/2017 11:33 AMNote Text:HISTORY AND PHYSICAL Glory Henriquez, 72 year old femaleCurrent history and physical on file: NoIs a new History and Physical required for today's visit? YesIndication for procedure: DysphagiaPROCEDURE(S) SCHEDULED FOR: EGD (Esophagogastroduodenoscop y) with or without biopsies, removal ofpolyps or lesions, dilation ( any means), treatment of bleeding ( anymeans), Barrx treatment of Betito's Esophagus, image tube placement orcryo therapy treatment based on clinical findings.BASELINE BEHAVIOR: CalmBASELINE ORIENTATION: A AND O x3All medications and allergies reviewed: YesSkin Assessment: Warm dry muscus membranes pinkAirway/Respiratory Assessment:Airway: visualization of the uvula- YesMouth: opening greater than 2 fingerbreadths- YesNeck: full range of motion- YesBreath sounds clear/equal- YesCardiac Assessment: Regular rate and rhythm without murmurAbdominal Assessment: Abdomen soft, non-tender, no masses or organomegaly.Sedation Plan: MACAdditional Comments: Juan Aparicio MD [facility] CNCOon 07-19-2017 CNCO Letter TextUPPER END OSCOPY (EGD)You are scheduled at:[address] [address]Ucn are scheduled for an EGD on . 07/24/17 at 11:30 am.YOU MUST have a responsible adult to drive you home and to assist you at homewhile you finish recovering from your sedation. Please limit the number ofpeople that come with you to 1-2 people due to the limited waiting area.Bring your [place] Driver's license, insurance card(s) and a list of your medicationswith you.Arrive 45 minutes before your scheduled exam time at 10:45 amDo not eat or drink anything after midnight the night before, including gumand hard candy.If you take any heart, blood pressure or breathing medications, you can takethese before 6:00am on the day of your exam with a little sip of water.5 DAYS BEFORE THE EXAMSTOP TAKING ASPIRIN OR ASPIRIN CONTAINING PRODUCTS, VITAMIN E, BLOOD THINNERSSUCH COUMADIN, WARFARIN, PLAVIX, AGGRENOX (Please consult with theprescribing doctor of your blood thinner).DAY OF THE EXAMDiabetics: Please do not take any of your diabetic medications on the morningof the procedure; you may take them after the procedure.Any questions, please call our office at [phone].There will be a $50.00 charge for any no show appointments or same daycancels. [facility] CNOVon 07-19-2017 CNOV Office Visit (GSTNOR) GLORY HENRIQUEZ ([id number]) 1945 FDate Time Provider Department07/19/17 2:00 PM ZAIRA APARICIO During your visit today, we recorded the following information about you: Pulse Blood pressure Weight Height 74/minute 158/96 90.9 kg 1.524 Paulina Aparicio MD 07/19/2017 2:22 PM SignedThroat Problem; Nausea; and decrease in appetiteHPAshok Henriquez is a 72 year old female here today With complaints of aconstant mid sternal chest pain ,decrease in appetite, nausea and anunintentional 14 pound wt loss since Apr. Sxs started after flu attack in05/10.She has a history of gastritis and abnormal motility. She states she has beendysphagia with solids and liquids for the past months. She denies heartburn,reflux, cough or melenic stools. 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 No dilation was performed by then.Current Outpatient Prescriptions:meloxicam (MOBIC) 15 mg tablet Take 15 mg by mouth once daily.tolterodine (DETROL) 2 mg tablet Take 2 mg by mouth twice daily.esomeprazole (NEXIUM) 20 mg capsule Take 20 mg by mouth DAILY (6 AM).pregabalin (LYRICA) 75 mg capsule Take 75 mg by mouth twice daily.lisinopril (ZESTRIL, PRINIVIL) 10 mg tablet Take 1 tablet by mouth once daily.Aspirin 81 mg Tab Take 81 mg by mouth.naproxen sodium(ALEVE 220 MG TAB) 2 tabs q 4-6 hrs prn painNo current facility-administered medications for this visit.ALLERGIESAllergen Reactions- Acetaminophen Other: See Comments- Adhesive Tape (Arianna* Other: See Comments Heath skin- Bee Pollen Other: See Comments Swelling and throat closes- Latex Rash- Morphine Mental Status Change- Penicillins Rash- Vicodin [Hydrocodon* GI UpsetSocial HistorySubstance Use Topics- Smoking status: Never Smoker- Smokeless tobacco: Never Used- Alcohol use NoPAST MEDICAL HISTORYDiagnosis Date- Arthropathy, unspecified, site unspecified rheumatoid arthritis - neck, back, knees, hands- DVT (deep venous thrombosis) ([facility]) 2003- Esophageal reflux- Unspecified essential hypertensionPAST SURGICAL HISTORYProcedure Laterality Date- APPENDECTOMY- COLONOSCOP W/ OR W/O BRSH SPEC Colonoscopy- COLONOSCOP W/ OR W/O BRSH SPEC 04/02/2013 Colonoscopy- EGD- EGD W/O OR W/BRUSH/WASH 04/02/2013 EGD- EXCIS BREAST LESION 10/01/09 left excisional Bx- PAST SURGICAL HISTORY OF Breast Biopsies - 2 right , 3 left- REMOVAL GALLBLADDER 2005 Cholecystectomy- REMOVAL OF TONSILS,ANDlt;14 Y/O Tonsillectomy- REPAIR ROTATOR CUFF,ACUTE Rotator cuff repair right arm- TOTAL ABDOM HYSTERECTOMY Hysterectomy, ADOLPH - 1 ovaries- TOTAL KNEE REPLACEMENT 2003,2007 Knee replacement, total Right and leftFAMILY HISTORYProblem Relation Age of Onset- Breast Cancer Mother age 70- Diabetes Father Parkinsons, HTN, CAD, PR- Hypertension Father- Stroke Father- None Brother MVA age 13- Diabetes Brother- Asthma Brother- None Brother- None Sister- Hypertension Brother- Hypertension Brother- Psychiatry BrotherREVIEW OF SYSTEMSReview of [employer]Reg[employer] other systems reviewed and are negative.PHYSICAL EXAMBP 158/96 Pulse 74 Ht 5' 0ANDquot; (1.52m) Wt 200 lb 8 oz (90.9kg) ZiM421% BMI 39.16 kg/(m2).Physical ExamConstitutional: She is oriented to person, place, and time. She appearswell-developed and well-nourished.HENT:Head: Normocephalic and atraumatic.Right Ear: External ear normal.Left Ear: External ear normal.Nose: Nose normal.Mouth/Throat: Oropharynx is clear and moist.Eyes: Conjunctivae and EOM are normal. Pupils are equal, round, and reactive tolight.Neck: Normal range of motion. Neck supple.Cardiovascular: Normal rate, regular rhythm, normal heart sounds and intactdistal pulses.Pulmonary/Chest: Effort normal and breath sounds normal.Abdominal: Soft. Bowel sounds are normal.Musculoskeletal: Normal range of motion.Neurological: She is alert and oriented to person, place, and time. She hasnormal reflexes.Skin: Skin is warm and dry.Psychiatric: She has a normal mood and affect. Her behavior is normal. Judgmentand thought content normal.ASSESSMENT:Dysphagi a, unspecified type (primary encounter diagnosis)PLAN:Office Visit on 07/19/17-EGD DILATION GEN ANESReturn in about 6 months (around 01/19/2018).Zaira Aparicio, MDDATE: 07/19/17TIME: 2:22 PMReferring Provider: SELF [[id number]]Allergies As of Date: 07/19/2017 Noted Allergy ReactionACETAMINOPHEN 01/12/2015 14 - Other: See CommentsADHESIVE TAPE (ROSINS) 01/18/2006 14 - Other: See Comments Comments: Heath skinBEE POLLEN 02/03/2005 14 - Other: See Comments Comments: Swelling and throat closesLATEX 11/03/2008 2 - RashMORPHINE 04/01/2013 1 - Mental Status ChangePENICILLINS 02/03/2005 2 - RashVICODIN (HYDROCODONE-ACETAMINOPHE* 02/03/2005 8 - GI UpsetDate Reviewed: 07/19/2017Reviewed by: Zaira Aparicio - Fully AssessedReason for Visit: Throat Problem [109] Nausea [70] decrease in appetite [Other]Primary Visit Diagnosis:Dysphagia, unspecified type [R13.10]Order(s):EGD DILATION GEN ANES [[id number]] Order #: [id number] FUTUREPrescriptions as of 07/19/2017 Sig: MELOXICAM 15 MG [...] TABLET 2 tabs q 4-6 hrs prn painMedication notes this encounter CEFDINIR 300 MG CAPSULE >> Ryley Grove LPN 07/19/2017 1:34 PM >> RYLEY GROVE LPN [facility] Jul 19, 2017 1:34 PM Not taking CIPROFLOXACIN 500 MG TABLET >> Ryley Grove LPN 07/19/2017 1:34 PM >> RYLEY GROVE LPN Jayne Jul 19, 2017 1:34 PM Not taking CLINDAMYCIN HCL 150 MG CAPSULE >> Ryley Grove SERVICE PROMOTER SALESPERSON 07/19/2017 1:34 PM >> RYLEY GROVE SERVICE PROMOTER SALESPERSON SunJul 19, 2017 1:34 PM Not taking CODEINE 10 MG-GUAIFENESIN 100 MG/5 ML ORAL LIQUID >> Ryley Grove SERVICE PROMOTER SALESPERSON 07/19/2017 1:34 PM >> RYLEY GROVE SERVICE PROMOTER SALESPERSON SunJul 19, 2017 1:34 PM Not taking IBUPROFEN 600 MG TABLET >> Ryley Grove SERVICE PROMOTER SALESPERSON 07/19/2017 1:35 PM >> RYLEY GROVE SERVICE PROMOTER SALESPERSON Jayne Jul 19, 2017 1:35 PM Not taking MAGNESIUM OXIDE 400 MG TABLET >> Ryley Grove SERVICE PROMOTER SALESPERSON 07/19/2017 1:35 PM >> RYLEY GROVE SERVICE PROMOTER SALESPERSON [facility] Jul 19, 2017 1:35 PM Not taking PREDNISONE 10 MG TABLET >> Ryley Grove SERVICE PROMOTER SALESPERSON 07/19/2017 1:36 PM >> RYLEY GROVE SERVICE PROMOTER SALESPERSON [facility] Jul 19, 2017 1:36 PM Not taking PRAVASTATIN 40 MG TABLET >> Ryley Grove SERVICE PROMOTER SALESPERSON 07/19/2017 1:35 PM >> RYLEY GROVE SERVICE PROMOTER SALESPERSON [facility] Jul 19, 2017 1:35 PM Not taking NORTRIPTYLINE 25 MG CAPSULE >> Ryley Grove SERVICE PROMOTER SALESPERSON 07/19/2017 1:35 PM >> RYLEY GROVE SERVICE PROMOTER SALESPERSON [facility] Jul 19, 2017 1:35 PM ,Not taking SPIRONOLACTONE 25 MG TABLET >> Ryley Grove SERVICE PROMOTER SALESPERSON 07/19/2017 1:36 PM >> RYLEY GROVE SERVICE PROMOTER SALESPERSON [facility] Jul 19, 2017 1:36 PM duplicate >> Ryley Grove SERVICE PROMOTER SALESPERSON 07/19/2017 1:37 PM >> RYLEY GROVE LPN [facility] Jul 19, 2017 1:37 PM Not taking PRAVASTATIN 40 MG TABLET >> Ryley Grove SERVICE PROMOTER SALESPERSON 07/19/2017 1:36 PM >> RYLEY GROVE LPN [facility] Jul 19, 2017 1:36 PM Not taking PREDNISONE 20 MG TABLET >> Ryley Grove SERVICE PROMOTER SALESPERSON 07/19/2017 1:36 PM >> RYLEY GROVE LPN [facility] Jul 19, 2017 1:36 PM Not taking SPIRONOLACTONE 25 MG TABLET >> Ryley Grove LPN 07/19/2017 1:37 PM >> RYLEY GROVE LPN Jayne Jul 19, 2017 1:37 PM Not takingProblem List As Of Date 07/19/2017 Noted Resolved [...] (severe) obesity due to excess calories *INVALID FOR*Medications Discontinued During This Encounter magnesium oxide (MAG-OX) [...] Disc: Reason for discontinue is not on file.Disposition: Return in about 6 months (around 01/19/2018).Follow-up and Disposition History RecordedEncounter Number: [id number] Status:Closed by ZAIRA APARICIO MD on 07/19/17 Normal [facility] PROGRESSon 07-19-2017 Protein mass conc HNO ID: [id number] thor: Zaira Gilmoreervice: (none)Author Type: PhysicianType: Progress NotesFiled: 07/19/2017 2:22 PMNote Text:Throat Problem; Nausea; and decrease in appetiteHPIDiana Faye Henriquez is a 72 year old female here today With complaints of aconstant mid sternal chest pain ,decrease in appetite, nausea and anunintentional 14 pound wt loss since Apr. Sxs started after flu attack in05/10.She has a history of gastritis and abnormal motility. She states she hasbeen dysphagia with solids and liquids for the past months. She deniesheartburn, reflux, cough or melenic stools. 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 No dilation was performed byDr. Sanchez condon.Current Outpatient Prescriptions:meloxicam (MOBIC) 15 mg tablet Take 15 mg by mouth once daily.tolterodine (DETROL) 2 mg tablet Take 2 mg by mouth twice daily.esomeprazole (NEXIUM) 20 mg capsule Take 20 mg by mouth DAILY (6 AM).pregabalin (LYRICA) 75 mg capsule Take 75 mg by mouth twice daily.lisinopril (ZESTRIL, PRINIVIL) 10 mg tablet Take 1 tablet by mouth oncedaily.Aspirin 81 mg Tab Take 81 mg by mouth.naproxen sodium(ALEVE 220 MG TAB) 2 tabs q 4-6 hrs prn painNo current facility-administered medications for this visit.ALLERGIESAllergen Reactions- Acetaminophen Other: See Comments- Adhesive Tape (Arianna* Other: See Comments Heath skin- Bee Pollen Other: See Comments Swelling and throat closes- Latex Rash- Morphine Mental Status Change- Penicillins Rash- Vicodin [Hydrocodon* GI UpsetSocial HistorySubstance Use Topics- Smoking status: Never Smoker- Smokeless tobacco: Never Used- Alcohol use NoPAST MEDICAL HISTORYDiagnosis Date- Arthropathy, unspecified, site unspecified rheumatoid arthritis - neck, back, knees, hands- DVT (deep venous thrombosis) (HCC) 2003- Esophageal reflux- Unspecified essential hypertensionPAST SURGICAL HISTORYProcedure Laterality Date- APPENDECTOMY- COLONOSCOP W/ OR W/O [facility] SPEC Colonoscopy- COLONOSCOP W/ OR W/O [facility] SPEC 04/02/2013 Colonoscopy- EGD- EGD W/O OR W/BRUSH/WASH 04/02/2013 EGD- EXCIS BREAST LESION 10/01/09 left excisional Bx- PAST SURGICAL HISTORY OF Breast Biopsies - 2 right , 3 left- REMOVAL GALLBLADDER 2006 Cholecystectomy- REMOVAL OF TONSILS,<14 Y/O Tonsillectomy- REPAIR ROTATOR CUFF,ACUTE Rotator cuff repair right arm- TOTAL ABDOM HYSTERECTOMY Hysterectomy, ADOLPH - 1 ovaries- TOTAL KNEE REPLACEMENT 2003,2007 Knee replacement, total Right and leftFAMILY HISTORYProblem Relation Age of Onset- Breast Cancer Mother age 70- Diabetes Father Parkinsons, HTN, CAD, PR- Hypertension Father- Stroke Father- None Brother MVA age 13- Diabetes Brother- Asthma Brother- None Brother- None Sister- Hypertension Brother- Hypertension Brother- Psychiatry BrotherREVIEW OF SYSTEMSview [facility] other systems reviewed and are negative.PHYSICAL EXAMBP 158/96 Pulse 74 Ht 5' 0 (1.52m) Wt 200 lb 8 oz (90.9kg) ThV999% BMI 39.16 kg/(m2).Physical ExamConstitutional: She is oriented to person, place, and time. She appearswell-developed and well-nourished.HENT:Head: Normocephalic and atraumatic.Right Ear: External ear normal.Left Ear: External ear normal.Nose: Nose normal.Mouth/Throat: Oropharynx is clear and moist.Eyes: Conjunctivae and EOM are normal. Pupils are equal, round, andreactive to light.Neck: Normal range of motion. Neck supple.Cardiovascular: Normal rate, regular rhythm, normal heart sounds andintact distal pulses.Pulmonary/Chest: Effort normal and breath sounds normal.Abdominal: Soft. Bowel sounds are normal.Musculoskeletal: Normal range of motion.Neurological: She is alert and oriented to person, place, and time. Shehas normal reflexes.Skin: Skin is warm and dry.Psychiatric: She has a normal mood and affect. Her behavior is normal.Judgment and thought content normal.ASSESSMENT:Dysphagi a, unspecified type (primary encounter diagnosis)PLAN:Office Visit on 07/19/17-EGD DILATION GEN ANESReturn in about 6 months (around 01/19/2018).Zaira Aparicio MDDATE: 07/19/17TIME: 2:22 PM Normal [facility] Emergency Room Note on 12-23-2016 [place] [facility] Note Normal [facility] ([place]) Patient Summary Documentson 12-22-2016 Patient Summary Documents Normal [facility] ([place]) Vital Signs Date Time Vital Sign Value Performing Clinician Facility 06-15-2023 12:37-0500 Body height 152.4 cm Igor Jimenez MD Work Phone: [facility] 06-15-2023 12:37-0500 Body temperature 97.59 [degF] Igor Jimenez MD Work Phone: [facility] 06-15-2023 12:37-0500 Body weight 90.36 kg Igor Jimenez MD Work Phone: [facility] 06-15-2023 12:37-0500 Diastolic blood pressure 82 mm[Hg] Igor Jimenez MD Work Phone: [facility] 06-15-2023 12:37-0500 Heart rate 97 /min Igor Jimenez MD Work Phone: [facility] 06-15-2023 12:37-0500 SaO2% (BldA) [Mass fraction] 98 % Igor Jimenez MD Work Phone: [facility] 06-15-2023 12:37-0500 Systolic blood pressure 130 mm[Hg] Igor Jimenez MD Work Phone: [facility] 11-20-2021 16:39-0400 Diastolic blood pressure 72 mm[Hg] PRINCESS STEPHEN MD [facility] 11-20-2021 16:39-0400 Heart rate 82 /min PRINCESS STEPHEN MD [facility] 11-20-2021 16:39-0400 Respiratory rate 18 /min PRINCESS STEPHEN MD [facility] 11-20-2021 16:39-0400 Systolic blood pressure 110 mm[Hg] PRINCESS STEPHEN MD [facility] 11-20-2021 15:17-0400 Body temperature 98.06 [degF] PRINCESS STEPHEN MD [facility] 11-20-2021 15:17-0400 Diastolic blood pressure 62 mm[Hg] PRINCESS STEPHEN MD [facility] 11-20-2021 15:17-0400 Heart rate 83 /min PRINCESS STEPHEN MD [facility] 11-20-2021 15:-0400 Respiratory rate 18 /min PRINCESS STEPHEN MD [facility] 11-20-2021 15:0400 Systolic blood pressure 106 mm[Hg] PRINCESS STEPHEN MD [facility] Encounters Encounter Date Encounter Type Care Provider Facility Start: 12-08-2023 End: 12-08-2023 ambulatory Samantha Isaac RN NURSE RN CLINICAL COORDINATOR Comment on above: Palpitations Start: 06-15-2023 End: 06-15-2023 Patient encounter procedure Igor Jimenez MD Work Phone: General Surgery Comment on above: Rectal bleeding (Wendy sheehan Dx) Start: 11-20-2021 End: 11-20-2021 Emergency department patient visit PRINCESS STEPHEN MD [facility] Start: 03-05-2018 End: 03-05-2018 Patient encounter procedure ZAIRA SONIAI MARKUS [facility] Start: 11-29-2017 Patient encounter procedure ZAIRA SONIAI MARKUS [facility] Start: 08-28-2017 End: 08-28-2017 Patient encounter procedure ZAIRA NABI MARKUS [facility] Start: 07-24-2017 Patient encounter procedure ZAIRA SONIAI MARKUS [facility] Start: 07-19-2017 End: 07-19-2017 Patient encounter procedure ZAIRA SONIAI MARKUS [facility] Start: 12-22-2016 End: 12-22-2016 Emergency department patient visit ALEX LUIS Facility:B Procedures Date Procedure Procedure Detail Performing Clinician Heart structure (body structure) PRINCESS STEPHEN MD Plan of Treatment Date Care Activity Detail Author Start: 11-06-2028 Urine microalbumin profile DTaP,Tdap,Td Vaccine (3 - Td or Tdap) [facility] Start: 12-23-2023 Influenza vaccination Influenza Vacc ine (#1) [facility] Start: 04-23-2023 Advance Directive Discussion Advance Directive Discussion [facility] Start: 04-23-2023 Depression Assessment Depression Ass essment [facility] Start: 12-22-2022 Covid-19 Vaccine ( season) Covid-19 Vaccine ( season) [facility] Start: 12-20-2019 Pneumococcal Vaccine : 65+ (2 of 2 - PCV) Pneumococcal Vaccine: 65+ (2 of 2 - PCV) [facility] Start: 01-27-2017 Diabetes Screening Diabetes Screenin g [facility] Start: 2007 RSV Vaccine (1 - 1-d ose 60+ series) RSV Vaccine (1 - 1-dose 60+ series) [facility] Start: 1997 Shingrix Vaccine (1 of 2) Shingrix V accine (1 of 2) [facility] Start: 1965 Annual PCP Team Clinic Director abram Disease Visit Annual PCP Team Chronic Disease Visit [facility] Start: 1965 Anxiety Screening Anxiety Screening [facility] Start: 1965 BP Controlled (<130/80) BP Controlle d (<130/80) [facility] Start: 1965 Depression Screening Depression Scre ening [facility] Start: 1965 Hepatitis C screening Hepatitis C Sc [facility] Immunizations Immunization Date Immunization Notes Care Provider Fa cility 04-27-2023 influenza virus vacc ine, unspecified formulation Samantha Isaac RN [facility] 09-29-2008 tetanus toxoid, redu nico diphtheria toxoid, and acellular pertussis vaccine, adsorbed Igor Jimenez MD Work Phone: [facility] Payers Date Payer Category Payer Unknown [facility] [employer] [employer] HMO [id number] 2023-Present [phone] [address] [place] [address] O [id number] 2016 Medicare [id number] Social History Date Type Detail Facility Tobacco smoking status [facility] Sex Assigned At Female [facility] Start: 04-02-2012 [facility] Start: 04-02-2012 Tobacco use and exposure Smokeless tobacco non-user 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 Start: 06-15-2023 End: 06-17-20[address] [facility] Start: 06-15-2023 End: 06-17-[address] [facility] National Score (1-100), lower number is lower risk 56 [facility] Start: 1945 Sex Assigned At Not on file C [facility] Functional Status Date Assessment Result Facility 11-20-2021 Functional Status Independent [facility] 11-20-2021 Functional Status Standard Safet y ID band on, Call device within reach, Bed in low position, Wheels locked, Upper/Half-Length side-rails up, Phone within reach, personal items within reach, Assistive devices within reach, Toileting device within reach, Bedside Cart Locked, Visitor at bedside, Safety level maintained [facility] Mental Status Date Assessment Result Facility 11-20-2021 Mental Status Orientation Oriented x 4 [facility] 11-20-2021 Mental Status [facility] Telephone encounter Note 12-08-2023 Telephone Encounter - Samantha Isaac RN - 12/08/2023 2:05 PM EDT Note Date & Type Note Facility 12-08-2023 Telephone encount er Note Reason for Call: Chest Pain Patient complain of constant pain left side of chest and HR 137 Outcome: Advised to call 911 and patient agreed with the recommendation. Reason for Disposition Chest pain [1] Chest pain lasts > 5 minutes AND [2] age > 44 Protocols used: Heart Rate and Heartbeat Koiprtznv-KYYQE-PM, Chest Bnem-PPVGU-VE [facility] Note 12-08-2023 Telephone Encounter - Samantha Isaac RN - 12/08/2023 2:05 PM EDT Note Date & Type Note Facility 12-08-2023 Miscellaneous Notes Formattin g of this note might be different from the original. Reason for Call: Chest Pain Patient complain of constant pain left side of chest and HR 137 Outcome: Advised to call 911 and patient agreed with the recommendation. Reason for Disposition Chest pain [1] Chest pain lasts > 5 minutes AND [2] age > 44 Protocols used: Heart Rate and Heartbeat Oghcxcifs-FOEXY-VL, Chest Cjgq-EIYNI-HG documented in this encounter [facility] History of Present illness Narrative 06-17-2023 Igor Jimenez MD - 06/17/2023 6:29 AM EST Note Date & Type Note Facility 06-17-2023 History of Presen t illness Narrative HISTORY AND PHYSICAL Glory Littleley 1945 REFERRING PHYSICIAN: Raf Galindo Chi, MD CHIEF COMPLAINT: Consult (Bleeding hemorrhoids) HPI: The patient is a 78 year old female with a complaint of occasional bleeding hemorrhoids. She had an unremarkable colonoscopy which demonstrated internal hemorrhoids in 2018. She notes occasional bright red blood in the toilet bowel and on the paper. SHe is not currently bleeding The patient is being seen by me today at the request of Dr. Raf Galindo MD for my opinion and advice regarding likely hemorrhoidal bleeding. PAST MEDICAL HISTORY Diagnosis Date Abnormal weight loss Arthropathy, unspecified, site unspecified rheumatoid arthritis - neck, back, knees, hands DVT (deep venous thrombosis) ([facility]) 2003 Esophageal reflux Esophageal stenosis Unspecified essential hypertension PAST SURGICAL HISTORY Procedure Laterality Date APPENDECTOMY ARTHRP KNE CONDYLE&PLATU MEDIAL&LAT COMPARTMENTS 2003,2007 Knee replacement, total Right and left CHOLECYSTECTOMY 2006 Cholecystectomy COLONOSCOPY 04/02/2013 Multiple medium-mouthed diverticula were found in the sigmoid colon, normal biopsy, non bleeding internal hermorrhoid COLONOSCOPY 11/29/2017 EGD 05/15/2016 small hiatus hernia, motility disorder, acute gastritis EGD DILATION 07/24/2017 Benign-appearing esophageal stenosis. Dilated ESOPHAGOGASTRODUODENOSCOPY TRANSORAL DIAGNOSTIC 04/02/2013 EGD EXC CYST/ABERRANT BREAST TISSUE OPEN 1/> LESION 10/01/09 left excisional Bx OPEN REPAIR OF ROTATOR CUFF ACUTE Rotator cuff repair right arm PAST SURGICAL HISTORY OF Breast Biopsies - 2 right , 3 left TONSILLECTOMY PRIMARY/SECONDARY <AGE 14 Tonsillectomy TOTAL ABDOMINAL HYSTERECT W/WO RMVL TUBE OVARY Hysterectomy, ADOLPH - 1 ovaries Current Outpatient Medications Medication Sig omeprazole (PRILOSEC) 10 mg capsule Take 20 mg by mouth once daily. albuterol-budesonide HFA (AIRSUPRA) 90-80 mcg/actuation inhaler Take 2 Puffs by mouth every 4 hours as needed for wheezing/shortness of breath. Do not take more than 12 inhalations in a 24 hour period. amLODIPine (NORVASC) 10 mg tablet Take 5 mg by mouth once daily. metoprolol succinate ER (TOPROL XL) 25 mg 24 hr tablet Take 25 mg by mouth once daily. pantoprazole DR (PROTONIX) 40 mg tablet Take 40 mg by mouth once daily. rosuvastatin 40 mg cpSP Take 40 mg by mouth once daily. apixaban (ELIQUIS) 5 mg tab(s) Take 5 mg by mouth two times a day. nitroglycerin sublingual (NITROQUICK) 0.4 mg SL tablet Dissolve 0.4 mg under the tongue every 5 minutes as needed for chest pain. ondansetron (ZOFRAN) 4 mg tablet Take 4 mg by mouth every 8 hours as needed for nausea/vomiting. meclizine (ANTIVERT) 25 mg tab Take 25 mg by mouth three times a day. diazePAM (VALIUM) 2 mg tablet Take 2 mg by mouth every 6 hours as needed. spironolactone (ALDACTONE) 25 mg tablet VITAMIN D 50,000 unit capsule Take one capsule by mouth per week for 8 weeks then one capsule monthly thereafter meloxicam (MOBIC) 15 mg tablet Take 15 [...] mg Tab Take 81 mg by mouth. (Patient not taking: Reported on 06/15/2023) naproxen sodium(ALEVE 220 MG TAB) 2 tabs q 4-6 hrs prn pain No current facility-administered medications for this visit. ALLERGIES: Acetaminophen, Adhesive Tape (Rosins), Bee Pollen, Latex, Morphine, Penicillins, and Vicodin [Hydrocodone-Acetaminophen] PERSONAL HISTORY: Social History Tobacco Use Smoking status: Never Smokeless tobacco: Never Vaping Use Vaping Use: Never used Substance Use Topics Alcohol use: No Drug use: No FAMILY HISTORY: FAMILY HISTORY Problem Relation Age of Onset Breast Cancer Mother age 70 Diabetes Father Parkinsons, HTN, CAD, PR Hypertension Father Stroke Father None Brother MVA age 13 Diabetes Brother Asthma Brother None Brother None Sister Hypertension Brother Hypertension Brother Psychiatry Brother REVIEW OF SYMPTOMS: The review of systems data was entered by the nurse and reviewed by ri Nursing Notes: Luz Torres LPN 06/15/2023 12:38 PM Signed REVIEW OF SYSTEMS: General: The patient NOTES fatigue, denies weight loss, denies weight gain, denies feeling hot, and denies feelings of cold. Eyes: The patient NOTES glaucoma, denies eye injury/surgery, does not wear glasses or contacts. Ear/Nose/Throat: The patient NOTES allergies, denies hayfever, denies ear infections, and denies bloody noses. Cardiovascular: The patient denies chest pain, NOTES heart disease, NOTES high blood pressure,NOTES cardiac stent, NOTES prior heart attack, NOTES irregular heart beat, denies high cholesterol, NOTES poor circulation, denies heart failure, other cardiac issues, NOTES claudication, NOTES cold feet, denies peripheral arterial stent. Respiratory: The patient denies tuberculosis, denies pneumonia, NOTES frequent cough, denies pulmonary embolism, NOTES shortness of breath, and denies coughing up blood. Gastrointestinal: The patient NOTES difficulty swallowing, NOTES acid reflux, denies ulcers, denies vomiting, denies jaundice/hepatitis, denies gallbladder problems, denies black or tarry stools, NOTES hemorrhoids, NOTES bleeding from rectum, NOTES diverticulitis, denies constipation, denies diarrhea, denies loss of stool control, and denies hernias. Kidney/Bladder: The patient denies kidney stones, NOTES urine infections, and denies bloody urine. Skin: The patient denies a history of skin cancer, denies bleeding/changing moles, and denies a history of skin rash. Neurologic: The patient denies a history of epilepsy/convulsions, denies headaches, denies head/spinal injuries, and denies stroke/TIA. Psychiatric: The patient denies psychiatric medications, denies depression, and denies voices, denies substance abuse. Endocrine: The patient denies thyroid disorders, denies diabetes, and denies hormonal problems. Hematologic: The patient denies a history of bruising, NOTES bleeding, and denies anemia, denies blood clots. Infections: The patient NOTES a history of measles and mumps, denies rheumatic fever, and denies sexually transmitted diseases. Musculoskeletal: The patient denies back pain/injury, NOTES back problems, NOTES sciatica, denies knee/foot trouble, denies arthritis, or denies gout. When was patient's last Mammogram screening? 2022 Last Colonoscopy: UNSURE Luz Torres LPN PHYSICAL EXAMINATION: General: The patient is 78 year old female, well nourished, well hydrated in no acute distress. The patient is oriented to time, place, and person. VITALS: Blood pressure 130/82, pulse 97, temperature 36.4 C (97.6 F), height 152.4 cm (5'), weight 90.4 kg (199 lb 3.2 oz), SpO2 98%. HEENT: Normal cephalic, ataumatic, pupils are equally round, sclera are anicteric, mucous membranes are moist, oropharynx is clear. Neck has no masses, asymmetry or lymphadenopathy. Thyroid is unremarkable. Respiratory: Clear to auscultation and percussion. Normal respiratory excursion and pattern. Cardiac: Examination is regular rate and rhythm. Abdominal exam: Soft, nontender, with no palpable masses. No hepatosplenomegaly. No palpable hernias. Rectal exam: exam deferred Extremities: no clubbing, cyanosis or edema. No adenopathy. Other: LABORATORY VALUES: As Noted RADIOLOGIC STUDIES: As Noted Assessment IMPRESSION: likely hemorrhoidal bleeding PLAN: She will contact the office when she is having bleedin and we will plan for anoscopy and hemorrhoidal banding Diagnoses: (K62.5) Rectal bleeding (primary encounter diagnosis) A letter was sent to Dr. Raf Galindo MD indicating the above finding for this patient. Return to Clinic: The patient is instructed to follow-up with me as needed. Igor Jimenez MD documented in this encounter [facility] Nurse Note 06-15-2023 Luz Torres LPN - 06/15/2023 12:34 PM EST Note Date & Type Note Facility 06-15-2023 Nurse Note REVIEW OF SYSTEMS: General: The patient NOTES fatigue, denies weight loss, denies weight gain, denies feeling hot, and denies feelings of cold. Eyes: The patient NOTES glaucoma, denies eye injury/surgery, does not wear glasses or contacts. Ear/Nose/Throat: The patient NOTES allergies, denies hayfever, denies ear infections, and denies bloody noses. Cardiovascular: The patient denies chest pain, NOTES heart disease, NOTES high blood pressure,NOTES cardiac stent, NOTES prior heart attack, NOTES irregular heart beat, denies high cholesterol, NOTES poor circulation, denies heart failure, other cardiac issues, NOTES claudication, NOTES cold feet, denies peripheral arterial stent. Respiratory: The patient denies tuberculosis, denies pneumonia, NOTES frequent cough, denies pulmonary embolism, NOTES shortness of breath, and denies coughing up blood. Gastrointestinal: The patient NOTES difficulty swallowing, NOTES acid reflux, denies ulcers, denies vomiting, denies jaundice/hepatitis, denies gallbladder problems, denies black or tarry stools, NOTES hemorrhoids, NOTES bleeding from rectum, NOTES diverticulitis, denies constipation, denies diarrhea, denies loss of stool control, and denies hernias. Kidney/Bladder: The patient denies kidney stones, NOTES urine infections, and denies bloody urine. Skin: The patient denies a history of skin cancer, denies bleeding/changing moles, and denies a history of skin rash. Neurologic: The patient denies a history of epilepsy/convulsions, denies headaches, denies head/spinal injuries, and denies stroke/TIA. Psychiatric: The patient denies psychiatric medications, denies depression, and denies voices, denies substance abuse. Endocrine: The patient denies thyroid disorders, denies diabetes, and denies hormonal problems. Hematologic: The patient denies a history of bruising, NOTES bleeding, and denies anemia, denies blood clots. Infections: The patient NOTES a history of measles and mumps, denies rheumatic fever, and denies sexually transmitted diseases. Musculoskeletal: The patient denies back pain/injury, NOTES back problems, NOTES sciatica, denies knee/foot trouble, denies arthritis, or denies gout. When was patient's last Mammogram screening? 2022 Last Colonoscopy: UNSURE Luz Torres LPN documented in this encounter [facility] Discharge instructions 11-20-2021 Note Date & [...] of 100.4 F (38 C) or higher 8132-1329 [employer]. [address] [place] [id number]. All rights reserved. This information is not intended as a substitute for professional medical care. Always follow your healthcare professional's instructions. Follow Up Care 11/20/2021 15:12:31 With:JOSHUA GALINDO MD Address: [facility] [address] [place] [address]- When:2-4 days [facility] Emergency department Discharge summary 11-20-2021 Note Date & Type Note Facility 11-20-2021 Emergency department Discharge summary Discharge Instructions Thank you for allowing [facility] to assist you with your healthcare needs. [...] When Within 2-4 days Where: [facility] [place] [id number]- Allergies NKA Medications Please ask your primary [...] of 100.4 F (38 C) or higher 9878-2212 [employer]. [address] [place] [address], [place] [address]. All rights reserved. This information is not intended as a substitute for professional medical care. Always follow your healthcare professional's instructions. Additional Information VACCINATE! IT SAVES LIVES! Members of the community who have not yet received the COVID-19 vaccine and would like to receive it can visit one of [facility] vaccine clinics. There are many vaccine clinic locations within the [facility]. For locations and available times, please visit [email or web address]. It is important to note that some COVID mobile vaccine clinics are held outdoors and may be canceled in rainy or stormy conditions. To learn more about pediatric vaccinations (ages 5-11), we invite you to visit the [facility] webpage. [email or web address] To learn more about the COVID-19 vaccine, we invite you to visit the [facility] website for a list of frequently asked questions. [email or web address] [email or web address] [facility] Patient Portal Access Instructions: Stay connected with your healthcare team and access your personal medical information anytime with the [facility] Patient Portal. If you would like a full copy of your medical records please contact the [facility] Medical Records Department Sunday through Sunday between 8a.m. and 4:30p.m. Please follow the directions below to access the portal: 1.Access the email account you provided upon registration to the hospital.2.Look for an invitation email from [facility].3.Open the email and access the invitation link: Accept Invitation to [facility]4.Fill in the required phillip to create your account. Sign into [email or web address] with your username and password that you [...] you will allow to register on the [facility] Patient Portal for access to your information. You can also access the [facility] Patient Portal on the [employer]. Simply click on Health Records under Health Data and then click on the [employer] logo. HOW TO SAFELY DISPOSE OF PRESCRIPTION [...] Call your local pharmacy or go to [email or web address] to find one close to you.3.Make use of household items: Use cat litter or old coffee grounds to dispose medications if other options are not available. Mix your drugs with these household products, seal them in an airtight container and throw it into the garbage. Call [facility]: [phone] to be sure your drugs can be [...] been reviewed and explained to me and IFLORENCE DIANA understand my current condition and have read and understand these discharge instructions. I have received a written copy of the plan/instructions. If I have questions, I am aware that I should contact my doctor. Patient/Studio Owner Signature: Date/Time: Relationship to Patient: ____ Witness Name/Signature: Date/Time: [facility] History of Past illness Narrative 09-02-2009 Note Date & Type Note Facility 09-02-2009 History of Past i llness Narrative Problem Noted Date Diagnosed Date Resolved Date Lump or mass in breast 09/02/200912/30 Abnormal mammogram, unspecified 11/06/2008 12/30/2009 documented as of this encounter (statuses as of 06/17/2023) [facility] Evaluation + Plan note Note Date & Type Note Facility Evaluation + Plan note No data available for this section [facility] Evaluation note Note Date & Type Note Facility Evaluation note Diagnosis Rectal bleeding- Primary Hemorrhage of rectum and anus documented in this encounter [facility] Note Note Date & Type Note Facility Note PRINCESS STEPHEN MD: SIGN, VERIFY Event Display: EKG [ED AO] - CV Authored Date: [id number] [facility] Summary Purpose Family History No Family History Records FoundNo Family History Records FoundNo Family History Records Found Advance Directives No Advanced Directives Records FoundNo Advanced Directives Records FoundNo Advanced Directives Records Found Additional Source Comments INFORMATION SOURCE (unrecogn ized section and content) DATE CREATED AUTHOR 10/17/2017 [facility] ([place]) DATE CREATED AUTHOR AUTHOR'S ORGANIZ ATION 03/31/2018 [facility] DATE CREATED AUTHOR AUTHOR'S ORGANIZ ATSALLIE 01/07/2021 [facility] ([place]) Care Team (unrecognized sect ion and content) Care Team Personnel Name: JOSHUA GALINDO MD Member Role: Primary Care Physician Address: Address: [facility] [address] [place] [id number]- Source Comments (unrecognize d section and content) In the event this informatio n is protected by the Federal Confidentiality of Alcohol and Drug Abuse Patient Records regulations: The Federal rules restrict any use of the information to criminally investigate or prosecute any alcohol or drug abuse patient[facility] event this information is protected by the Federal Confidentiality of Alcohol and Drug Abuse Patient Records regulations: The Federal rules restrict any use of the information to criminally investigate or prosecute any alcohol or drug abuse patient.[facility] Reason for Visit (unrecogniz ed section and content) Reason Comments Consult Bleeding hemorrhoids Reason Comments Palpitations Care Teams (unrecognized sec tion and content) Rn Family Practice Relationship Specialty Start Date End Date Raf Galindo Chi PCP - General Gerontology 07/19/17 Rn Family Practice Relationship Specialty Start Date End Date Raf Galindo Chi PCP - General Gerontology 07/19/17 FOR RECORDS PERTAINING TO PATIENTS WHO ARE [...] BE BASED ON THE PRIMARY CLINICAL RECORDS. [facility] provides no warranty or guarantee of the accuracy or completeness of information in this document.
== END | disposition home or self-care (01) ==
PROVIDERS: PCP Family Medicine Geriatric Medicine; Referring Provider Internal Medicine Cardiovascular Disease; Visit Provider Family Medicine Geriatric Medicine
DX: E87.6 Hypokalemia (principal)
CPT/HCPCS: 80053; 80162; 84100; 85027

== ENCOUNTER 2024-02-19 12:34 | Outpatient (CLI) | payer MEDICARE, SELFPAY ==
[2022-06-16 15:20] VITALS: BMI 37.3
[2024-02-19 12:50] VITALS: BP 139/68; PULSE 76; RESP 16; TEMP 36; O2SAT 94
[2024-02-19] MEDS: 0.9% Normal Saline (1000mL) 1,000 ML 999 ML IV (13:03)
[2024-02-19 14:11] VITALS: BP 138/53; PULSE 75; RESP 16; TEMP 35.8; O2SAT 96
[2024-02-19] MEDS: 0.9% NaCl Peripheral Flush Adult/Peds IV (14:13)
== END 2024-02-19 23:59 | disposition home or self-care (01) ==
LOC: MEDOUTP 12:36
PROVIDERS: PCP Family Medicine Geriatric Medicine; Referring Provider Family Medicine Geriatric Medicine; Visit Provider Family Medicine Geriatric Medicine
DX: E86.0 Dehydration (principal)
CPT/HCPCS: 96360; J7030; A4216

== ENCOUNTER → 2024-02-22 | Outpatient (CLI) | payer MEDICARE, SELFPAY ==
[2022-06-16 15:20] VITALS: BMI 37.3
--- NOTE | 2024-02-22 09:49 | RAD_ITS ---
STUDY: X-RAY - ESOPHAGUS (BARIUM SWALLOW) WITH FLUOROSCOPY REASON FOR EXAM: Female, 78 years old. DYSPHAGIA TECHNIQUE: 70 fluoroscopic view(s) of the esophagus were obtained following swallowing of barium. FLUOROSCOPY TIME (if supplied): (50 seconds) minutes/seconds. 7.8 mGy. COMPARISON: None. FINDINGS: There is no demonstrated esophageal foreign body. There is no demonstrated stricture or mucosal abnormality. There is narrowing at the gastroesophageal junction. The patient ingested a 12 mm tablet of barium. The tablet is trapped at the gastroesophageal junction. Endoscopic correlation recommended. There is atherosclerotic calcification of the aortic arch with tortuosity of the descending aorta. Normal visualized pulmonary parenchyma. There are diffuse degenerative changes of the visualized thoracic spine. RAD/Esophagus Dual Contrast IMPRESSION: Narrowing at the gastroesophageal junction with trapping of the ingested 12 mm tablet of barium. Electronically Signed: Peter Davidson MD at 13:00 EDT ,
== END | disposition home or self-care (01) ==
LOC: RAD 09:48
PROVIDERS: PCP Family Medicine Geriatric Medicine; Referring Provider Family Medicine Geriatric Medicine; Visit Provider Family Medicine Geriatric Medicine
DX: R11.2 Nausea with vomiting, unspecified (principal); R13.10 Dysphagia, unspecified
CPT/HCPCS: 74221

== ENCOUNTER 2024-02-27 08:38 | Day surgery (SDC) | payer MEDICARE, SELFPAY ==
[2022-06-16 15:20] VITALS: BMI 37.3
[2024-02-27] VITALS (8 sets, daily range): BP systolic 120–149; BP diastolic 58–68; PULSE 68–71; RESP 14–18; TEMP 35.9–36.9; O2SAT 92–97; BMI 40.4
== END 2024-02-27 11:13 | disposition home or self-care (01) ==
LOC: EN 08:39 → AC 08:40
PROVIDERS: PCP Family Medicine Geriatric Medicine; Referring Provider Family Medicine Geriatric Medicine; Visit Provider Internal Medicine Gastroenterology
PROC: 0DJ08ZZ Inspection of Upper Intestinal Tract, Via Natural or Artificial Opening Endoscopic (ICD-10-PCS; CPT 43235; principal; 2024-02-27 09:55)
DX: I48.91 Unspecified atrial fibrillation (principal); Z90.710 Acquired absence of both cervix and uterus; R13.10 Dysphagia, unspecified; Z80.0 Family history of malignant neoplasm of digestive organs; I25.10 Atherosclerotic heart disease of native coronary artery without angina pectoris; I10 Essential (primary) hypertension; K25.9 Gastric ulcer, unspecified as acute or chronic, without hemorrhage or perforation; E78.00 Pure hypercholesterolemia, unspecified; I25.2 Old myocardial infarction; Z98.51 Tubal ligation status; Z95.5 Presence of coronary angioplasty implant and graft; Z90.49 Acquired absence of other specified parts of digestive tract; Z96.653 Presence of artificial knee joint, bilateral; K22.89 Other specified disease of esophagus; K29.50 Unspecified chronic gastritis without bleeding; K21.9 Gastro-esophageal reflux disease without esophagitis
CPT/HCPCS: 43239; 88305; 88312; 88342; J2405

== ENCOUNTER 2024-04-23 07:27 | Emergency (ER) | payer MEDICARE, SELFPAY ==
[2022-06-16 15:20] VITALS: BMI 37.3
[2024-04-23] VITALS (7 sets, daily range): BP systolic 128–142; BP diastolic 65–97; PULSE 102–122; RESP 15–20; TEMP 36.6–36.8; O2SAT 91–98; BMI 36.6
[2024-04-23 08:01] LABS: Absolute Lymphocyte Count 1.81 X10^3/uL (0.83-4.51); Absolute Neutrophil Count 7.5 X10^3/uL (2.0-7.7); Basophil# 0.05 X10^3/uL; Basophil% 0.5 % (0-1); Eosinophil# 0.25 X10^3/uL; Eosinophils% 2.4 % (0-5); Hematocrit 43.3 % (37-47); Hemoglobin 13.4 g/dL (12.0-15.0); Lymphocyte # 1.81 X10^3/ul (0.83-4.51); Lymphocyte % 17.4 % (19-41); Mean Corp Hgb Conc 30.9 g/dL (32-36); Mean Corpuscular Hgb 25.5 pg (27.0-32.0); Mean Corpuscular Volume 82.5 fL (81-99); Mean Platelet Vol. 9.8 fl (6.2-12.0); Monocyte# 0.71 X10^3/uL; Monocyte% 6.8 % (0-10); NRBC Flagged by Analyzer 0 % (0-5); Neutrophil # 7.54 X10^3/uL (2.7-7.7); Neutrophil % 72.2 % (47-70); Platelet Count 383 K/mm3 (150-450); RBC Distribution Width CV 17.5 % (11.6-14.6); RBC Distribution Width SD 51.8 fl (35.1-43.9); Red Blood Count 5.25 M/mm3 (4.2-5.4); White Blood Count 10.4 K/mm3 (4.4-11.0)
[2024-04-23] MEDS: 0.9% Normal Saline (1000mL) 1,000 ML 1000 ML IV (08:02)
--- NOTE | 2024-04-23 08:06 | EDS_ITS ---
HPI HPI - GI History of Present Illness Chief Complaint: Nausea/Vomiting/Diarrhea Informant: patient Abdominal Pain/Flank Pain Onset: Days (4) Context: Sudden Onset Timing: Continuous Quality: Cramping Location: Diffuse Worsened by: Nothing Relieved by: Nothing Nausea/Vomiting/Emesis GI Symptom: Positive for Nausea and Vomiting Quality: Positive for Nonbilious; Negative for Blood streaks, Coffee ground or Hematemesis Diarrhea/Melena/Hematochezia GI Symptom: Positive for Diarrhea; Negative for Melena or Hematochezia Onset: Days (4) Stool Quality: Positive for Watery Associated Symptoms Associated Symptoms: Positive for Dysuria and Frequency; Negative for Hematuria Narrative Narrative: Patient presents with nausea, vomiting, diarrhea, and abdominal pain that has been getting worse for the past 4 days. Patient states her pain is diffuse across her entire abdomen. Patient describes it as cramping. Patient states nothing makes it better and nothing makes it worse. Patient admits to some nausea and vomiting. Patient denies any hematemesis or coffee-ground emesis. Patient admits to some watery diarrhea. Patient denies any melena or hematochezia. Patient does admit to some dysuria and urinary frequency. Candace lynn denies any fevers or chills but states she did break it into a sweat this morning. [facility] Medical History Diverticulosis Heartburn Gastric reflux CPAP (continuous positive airway pressure) dependence Sleep apnea History of echocardiogram Iron deficiency anemia due to chronic blood loss Hoarseness Dyspnea Loss of hearing Post-menopausal Low iron Difficulty chewing Chronic cough Asthma long-term current use of amiodarone Wears glasses Wears dentures Ambulates with cane High cholesterol History of hiatal hernia History of diverticulitis Shortness of breath on exertion Non-smoker Leg cramps History of Holter monitoring History of stress test Cardiology follow-up encounter Stable angina Shortness of breath Mass of soft tissue Chronic anticoagulation Iron deficiency anemia Esophageal stenosis History of left heart catheterization (LHC) Hypokalemia Bilateral edema of lower extremity Atrial fibrillation HTN (hypertension) Myocardial infarct Gastroesophageal reflux disease Depression Hyperlipidemia Osteoarthritis of knee Coronary artery disease Cardiac arrest Atherosclerosis of coronary artery of [place] heart without angina pectoris Neuropathy of right lower extremity Contusion of right lower leg, sequela Chronic venous insufficiency of lower extremity Incontinence Back pain Shoulder pain Hemorrhoids Vitamin deficiency Rheumatoid arthritis Cataracts, bilateral UTI (urinary tract infection) Bone fracture Breast lump in female History of back problems Arthritis Left breast lump Fibromyalgia Obesity Generalized osteoarthritis GERD (gastroesophageal reflux disease) Home Medications ?Medication ?Instructions ?Recorded ?Last Taken ?Type nitroglycerin 0.4 mg sublingual 0.4 mg sublingual Q5M PRN 12/05/20 11/08/22 Rx tablet Cardiac/Chest Pain #1 BOTTLE atorvastatin 40 mg tablet 40 mg PO QHS Cholestrol #90 tabs 01/16/22 11/21/22 Rx cholecalciferol (vitamin D3) 25 25 mcg PO DAILY SUPPLEMENT 02/28/22 11/22/22 History mcg (1,000 unit) tablet diazepam 2 mg tablet (Valium) 2 mg PO UD PRN dizziness or 11/23/22 Unknown Rx vertigo #20 tabs ondansetron HCl 4 mg tablet 4 mg PO Q6H PRN nausea and 11/23/22 Unknown Rx vomiting #15 tabs isosorbide mononitrate 60 mg 60 mg PO DAILY #90 tabs 01/04/23 02/06/23 Rx tablet,extended release 24 hr buspirone 7.5 mg tablet 7.5 mg PO BID 11/01/23 Unknown History meclizine 25 mg tablet 25 mg PO DAILY PRN dizziness 11/01/23 Unknown History cranberry extract 500 mg capsule 500 mg PO DAILY 11/15/23 Unknown History vitamins A,C,F-lidu-qusxqv 1 cap PO BID EYE HEALTH 11/15/23 Unknown History ascorbate calcium (vitamin C) 500 500 mg PO QDAY 12/27/23 Unknown History mg tablet omeprazole 20 mg capsule,delayed 20 mg PO QDAY 12/27/23 Unknown History release rosuvastatin 40 mg tablet 40 mg PO QDAY 12/27/23 Unknown History digoxin 250 mcg (0.25 mg) tablet 250 mcg PO QDAY #30 tabs 01/03/24 Unknown Rx metoprolol succinate 100 mg 100 mg PO QDAY #30 tabs 01/03/24 01/31/24 Rx tablet,extended release 24 hr apixaban 2.5 mg tablet (Eliquis) 2.5 mg PO BID dose decreased #60 01/14/24 01/27/24 Rx tabs pantoprazole 40 mg tablet,delayed 40 mg PO DAILY #30 TABLETS 01/22/24 Unknown Rx release omeprazole 40 mg capsule,delayed 40 mg PO BID #60 caps 02/29/24 Unknown Rx release sucralfate 1 gram tablet (Carafate) 1 g PO QAC #90 tabs 02/29/24 Unknown Rx scopolamine base 1 mg over 3 days 1 patch transdermal Q3D PRN 04/01/24 Unknown Rx transdermal patch stomach upset #4 ea ciprofloxacin HCl 500 mg tablet 500 mg PO BID #6 TABLETS 04/23/24 Unknown Rx Allergy/AdvReac Type Severity Reaction Status Date / Time bee pollen Allergy Anaphylaxis Verified 04/23/24 07:34 latex Allergy Swelling Verified 04/23/24 07:34 morphine Allergy Other Verified 04/23/24 07:34 Penicillins Allergy Hives Verified 04/23/24 07:34 ranolazine AdvReac Intermediate Dizzy and Verified 04/23/24 07:34 Lightheaded hydrocodone bitartrate (From AdvReac Abd Verified 04/23/24 07:34 Vicodin) cramps/diarrhea Family History Father Diabetes Heart disease Hypertension CVA (cerebral vascular accident) Parkinson disease Mother Breast cancer Hypertension Grandmother Cancer pancreatic cancer Ovarian cancer Son Anesthesia complication Brother Asthma Arthritis Diabetes Respiratory disease Grandfather Lung cancer CVA (cerebral vascular accident) Surgical History History of tubal ligation History of cardiac catheterization History of coronary artery stent placement Hematoma Hx of appendectomy History of cataract surgery History of left breast biopsy (~11/2017) history bilateral breast biopsies History of repair of right rotator cuff History of bilateral knee replacement History of hysterectomy History of laparoscopic cholecystectomy History of tonsillectomy and adenoidectomy Social History household members: spouse Smoking Status: Never smoker alcohol intake: never substance use type: does not use caffeine: Yes Type: carbonated beverages Number of servings: 1 and coffee Number of servings: 1 additional social history: DOES NOT USE IBUPROFEN ROS ROS ED Constitutional Constitutional ED: Reports sweats; Denies chills or fever(s) Eyes Eyes: Denies blurry vision or change in vision ENT ENT ED: Reports rhinorrhea; Denies sore throat Cardiovascular Cardiovascular: Denies chest pain or palpitations Respiratory/Chest Respiratory/Chest: Reports cough; Denies dyspnea Gastrointestinal Gastrointestinal: Reports abdominal pain, diarrhea, nausea and vomiting; Denies melena Genitourinary Genitourinary ED: Reports dysuria and urinary frequency; Denies hematuria Musculoskeletal Musculoskeletal: Reports neck pain; Denies back pain Integumentary Denies abscess or rash Neurologic Neurologic: Reports headache(s) and weakness Allergic/Immunologic Allergic/Immunologic ED: Denies mouth swelling or urticaria EXAM Physical Exam Const Vital Signs: 04/23/24 07:28 04/23/24 07:33 04/23/24 08:15 Temperature 98.1 F 98.1 F 98.2 F Temperature Source Oral Oral Oral Pulse Rate 110 H 103 H 116 H Respiratory Rate 15 16 20 H Blood Pressure 139/65 H 139/65 H 142/78 H Blood Pressure Mean 89 89 99 Pulse Ox 94 95 96 Oxygen Delivery Method Room Air Room Air Room Air 04/23/24 09:33 04/23/24 10:00 04/23/24 11:00 Temperature 98.1 F 98.3 F 97.9 F Temperature Source Oral Oral Temporal Pulse Rate 108 H 105 H 122 H Respiratory Rate 19 H 20 H 20 H Blood Pressure 135/75 H 128/82 H 139/97 H Blood Pressure Mean 95 97 111 Pulse Ox 91 91 98 Oxygen Delivery Method Room Air Room Air Positive well nourished and well developed General Appearance ED: well developed and NAD HEENT Reports moist mucous membranes Neck supple and no JVD Resp normal respiratory effort and clear to auscultation bilaterally Cardio regular rate Rhythm: abnormal rhythm irregularly irregular GI non-distended Palpation: soft and tender epigastric, LLQ, RLQ, LUQ, RUQ, periumbilical and suprapubic; Negative for guarding or rebound tenderness present Neuro CN's II-XII intact bilaterally, moves all extremities and no sensory deficits noted Sensorium / Orientation: alert Motor Exam: strength 5/5 throughout Psych mental status grossly normal and thought process normal MDM MDM MDM Narrative Medical decision making narrative: Differential diagnosis includes gastroenteritis, bowel obstruction, perforation, pancreatitis, dehydration, diverticulitis, colitis, urinary tract infection, pyelonephritis, and electrolyte abnormality. CBC will be obtained to assess for leukocytosis and anemia. Comprehensive metabolic profile will be obtained to assess for hepatic function, renal function, and electrolyte abnormality. Lipase will be obtained to assess for pancreatitis. Urinalysis will be obtained to assess for urinary tract infection and hematuria. PT with INR and PTT will be obtained to assess for coagulopathy. CT scan of the abdomen and pelvis will be obtained to assess for bowel obstruction, perforation, diverticulitis, and colitis. Lab Data Attestation: I reviewed the patient's lab results. Lab results narrative: CBC was reviewed and was within normal limits. Comprehensive metabolic profile was reviewed. BUN was slightly elevated at 20 and creatinine was slightly elevated at 1.36. These are consistent with previous results. Potassium was slightly low at 3.4. Lipase was reviewed and was normal at 52. PT was INR and PTT were reviewed and were within normal limits. Urinalysis was reviewed. Leukocyte esterase was 500 with 25-50 white blood cells. There were no bacteria noted. Labs: Laboratory Results - last 24 hr 04/23/24 04/23/24 04/23/24 07:26 07:26 07:26 WBC 10.4 RBC 5.25 Hgb 13.4 Hct 43.3 MCV 82.5 MCH 25.5 L MCHC 30.9 L RDW Std Deviation 51.8 H RDW Coeff of April 17.5 H Plt Count 383 MPV 9.8 Immature Gran % (Auto) 0.700 Neut % (Auto) 72.2 H Lymph % (Auto) 17.4 L Braxton % (Auto) 6.8 Eos % (Auto) 2.4 Baso % (Auto) 0.5 Absolute Neuts (auto) 7.5 Absolute Lymphs (auto) 1.81 Nucleated RBC % 0 PT INR APTT Sodium 141 Cancelled Potassium 3.4 L Cancelled Chloride 110 H Carbon Dioxide Anion Gap BUN Creatinine Estim Creat Clear Calc Est GFR (MDRD) Af Amer Est GFR (MDRD) Non-Af BUN/Creatinine Ratio Glucose Calcium Total Bilirubin AST ALT Alkaline Phosphatase Total Protein Albumin Globulin Albumin/Globulin Ratio Lipase Urine Color Urine Clarity Urine pH Ur Specific Moore Urine Protein Urine Glucose (UA) Urine Ketones Urine Occult Blood Urine Nitrite Urine Bilirubin Urine Urobilinogen Ur Leukocyte Esterase Urine RBC Urine WBC Ur Squamous Epith Cells Urine Bacteria Urine Mucus 04/23/24 04/23/24 04/23/24 07:26 07:26 07:26 WBC RBC Hgb Hct MCV MCH MCHC RDW Std Deviation RDW Coeff of April Plt Count MPV Immature Gran % (Auto) Neut % (Auto) Lymph % (Auto) Braxton % (Auto) Eos % (Auto) Baso % (Auto) Absolute Neuts (auto) Absolute Lymphs (auto) Nucleated RBC % PT INR APTT Sodium Potassium Chloride Cancelled Carbon Dioxide 24.0 Cancelled Anion Gap 6 Cancelled BUN 20 H Creatinine Estim Creat Clear Calc Est GFR (MDRD) Af Amer Est GFR (MDRD) Non-Af BUN/Creatinine Ratio Glucose Calcium Total Bilirubin AST ALT Alkaline Phosphatase Total Protein Albumin Globulin Albumin/Globulin Ratio Lipase Urine Color Urine Clarity Urine pH Ur Specific Moore Urine Protein Urine Glucose (UA) Urine Ketones Urine Occult Blood Urine Nitrite Urine Bilirubin Urine Urobilinogen Ur Leukocyte Esterase Urine RBC Urine WBC Ur Squamous Epith Cells Urine Bacteria Urine Mucus 04/23/24 04/23/24 04/23/24 07:26 07:26 07:26 WBC RBC Hgb Hct MCV MCH MCHC RDW Std Deviation RDW Coeff of April Plt Count MPV Immature Gran % (Auto) Neut % (Auto) Lymph % (Auto) Braxton % (Auto) Eos % (Auto) Baso % (Auto) Absolute Neuts (auto) Absolute Lymphs (auto) Nucleated RBC % PT INR APTT Sodium Potassium Chloride Carbon Dioxide Anion Gap BUN Cancelled Creatinine 1.36 H Cancelled Estim Creat Clear Calc 34.06 Est GFR (MDRD) Af Amer 49 L Cancelled Est GFR (MDRD) Non-Af 40 L BUN/Creatinine Ratio Glucose Calcium Total Bilirubin AST ALT Alkaline Phosphatase Total Protein Albumin Globulin Albumin/Globulin Ratio Lipase Urine Color Urine Clarity Urine pH Ur Specific Moore Urine Protein Urine Glucose (UA) Urine Ketones Urine Occult Blood Urine Nitrite Urine Bilirubin Urine Urobilinogen Ur Leukocyte Esterase Urine RBC Urine WBC Ur Squamous Epith Cells Urine Bacteria Urine Mucus 04/23/24 04/23/24 04/23/24 07:26 07:26 07:26 WBC RBC Hgb Hct MCV MCH MCHC RDW Std Deviation RDW Coeff of April Plt Count MPV Immature Gran % (Auto) Neut % (Auto) Lymph % (Auto) Braxton % (Auto) Eos % (Auto) Baso % (Auto) Absolute Neuts (auto) Absolute Lymphs (auto) Nucleated RBC % PT INR APTT Sodium Potassium Chloride Carbon Dioxide Anion Gap BUN Creatinine Estim Creat Clear Calc Est GFR (MDRD) Af Amer Est GFR (MDRD) Non-Af Cancelled BUN/Creatinine Ratio 14.7 Cancelled Glucose 108 H Cancelled Calcium 9.3 Total Bilirubin AST ALT Alkaline Phosphatase Total Protein Albumin Globulin Albumin/Globulin Ratio Lipase Urine Color Urine Clarity Urine pH Ur Specific Moore Urine Protein Urine Glucose (UA) Urine Ketones Urine Occult Blood Urine Nitrite Urine Bilirubin Urine Urobilinogen Ur Leukocyte Esterase Urine RBC Urine WBC Ur Squamous Epith Cells Urine Bacteria Urine Mucus 04/23/24 04/23/24 04/23/24 07:26 09:00 10:47 WBC RBC Hgb Hct MCV MCH MCHC RDW Std Deviation RDW Coeff of April Plt Count MPV Immature Gran % (Auto) Neut % (Auto) Lymph % (Auto) Braxton % (Auto) Eos % (Auto) Baso % (Auto) Absolute Neuts (auto) Absolute Lymphs (auto) Nucleated RBC % PT 14.1 INR 1.1 APTT 27.4 Sodium Potassium Chloride Carbon Dioxide Anion Gap BUN Creatinine Estim Creat Clear Calc Est GFR (MDRD) Af Amer Est GFR (MDRD) Non-Af BUN/Creatinine Ratio Glucose Calcium Cancelled Total Bilirubin 0.30 AST 22 ALT 15 Alkaline Phosphatase 115 Total Protein 7.9 Albumin 3.1 L Globulin 4.8 H Albumin/Globulin Ratio 0.6 L Lipase 52 Urine Color Yellow Urine Clarity Sl. Cloudy Urine pH 5.0 Ur Specific Moore 1.010 Urine Protein 30 H Urine Glucose (UA) Normal Urine Ketones Negative Urine Occult Blood 10 H Urine Nitrite Negative Urine Bilirubin Negative Urine Urobilinogen Normal Ur Leukocyte Esterase 500 H Urine RBC 0 SEEN Urine WBC 25-50 SEEN Ur Squamous Epith Cells 0 SEEN Urine Bacteria 0 SEEN Urine Mucus 0 SEEN Radiography Diagnostic Testing: Clinical Impression(s) from Imaging Studies Abdomen/Pelvis CT 04/23/24 08:25 IMPRESSION: 1. Liver: Redemonstration of geographic hypodensity in the posterior undersurface of the left lobe of the liver near the portal vein that either represents an old contusion or liver laceration versus a benign hemangioma hemangioma or an island of focal fatty infiltration. There is no enhancing lesions or infiltrative process in this region. 2. Recommendations: MRI of the abdomen with and without contrast, liver protocol to confidently assess the left lobe of the liver lesion, with a high probability of being benign 3. Extensive rectosigmoid diverticulosis without evidence of acute diverticulitis 4. No bowel dilatation or free air or inflammatory stranding or abscess. Electronically Signed: Edward Hyman MD at 10:34 EST Reading Location ID and State: [facility] / [place] , Service support , CT scan of the abdomen pelvis was obtained. There is no evidence of perforation or obstruction. There is a hypodensity in the posterior undersurface of the left lobe of the liver near the portal vein. This is similar to previous CT scan. This was interpreted by the radiologist and was also independently reviewed by myself. Treatment and Re-Evaluation :: Patient was given Zofran by EMS. Patient was given IV fluids. Patient was advised of her findings. Patient was given a dose of Cipro here. Patient was given a prescription for Cipro. Patient was instructed to drink plenty of f luids. Patient was also given a prescription for Zofran to take as needed for nausea. Patient was instructed to return if worse in any way. Patient was instructed to follow-up with her primary care physician in 5 to 7 days. Patient understood and was agreeable with the plan. All questions were answered. Discharge Plan Triage Chief Complaint: Nausea/Vomiting/Diarrhea ED Provider: Campos Tomlin Dx/Rx/DC Orders Clinical Impression: Cystitis, Nausea & vomiting, Diarrhea Instructions: ED Cystitis Female Adult Prescriptions: New ciprofloxacin HCl 500 mg tablet 500 mg PO BID Qty: 6 0RF No Action isosorbide mononitrate 60 mg tablet extended release 24 hr 60 mg PO DAILY Qty: 90 3RF Patient Comments: HASN'T TAKEN FOR 3 WEEKS BC OF DYSPHAGIA meclizine 25 mg tablet 25 mg PO DAILY PRN (Reason: dizziness) Patient Comments: HASN'T TAKEN FOR 3 WEEKS BC OF DYSPHAGIA buspirone 7.5 mg tablet 7.5 mg PO BID Patient Comments: HASN'T TAKEN FOR 3 WEEKS BC OF DYSPHAGIA metoprolol succinate 100 mg tablet extended release 24 hr 100 mg PO QDAY Qty: 30 3RF Patient Comments: HASN'T TAKEN FOR 3 WEEKS BC OF DYSPHAGIA digoxin 250 mcg (0.25 mg) tablet 250 mcg PO QDAY Qty: 30 3RF Patient Comments: HASN'T TAKEN FOR 3 WEEKS BC OF DYSPHAGIA ascorbate calcium (vitamin C) 500 mg tablet 500 mg PO QDAY Patient Comments: HASN'T TAKEN FOR 3 WEEKS BC OF DYSPHAGIA omeprazole 20 mg capsule,delayed release(DR/EC) 20 mg PO QDAY Patient Comments: HASN'T TAKEN FOR 3 WEEKS BC OF DYSPHAGIA rosuvastatin 40 mg tablet 40 mg PO QDAY Patient Comments: HASN'T TAKEN FOR 3 WEEKS BC OF DYSPHAGIA cholecalciferol (vitamin D3) 25 mcg (1,000 unit) tablet 25 mcg PO DAILY Patient Comments: HASN'T TAKEN FOR 3 WEEKS BC OF DYSPHAGIA nitroglycerin 0.4 mg Tablet, Sublingual 0.4 mg sublingual Q5M PRN (Reason: Cardiac/Chest Pain) Qty: 1 0RF Patient Comments: HASN'T TAKEN FOR 3 WEEKS BC OF DYSPHAGIA diazepam [Valium] 2 mg tablet 2 mg PO UD PRN (Reason: dizziness or vertigo) Qty: 20 0RF Patient Comments: HASN'T TAKEN FOR 3 WEEKS BC OF DYSPHAGIA Rx Instructions: 1 3-4 times a day for dizziness ondansetron HCl 4 mg tablet 4 mg PO Q6H PRN (Reason: nausea and vomiting) Qty: 15 0RF Patient Comments: HASN'T TAKEN FOR 3 WEEKS BC OF DYSPHAGIA cranberry extract 500 mg capsule 500 mg PO DAILY Patient Comments: HASN'T TAKEN FOR 3 WEEKS BC OF DYSPHAGIA Rx Instructions: administer with a meal vitamins A,C,S-hixa-ydjxqi [PreserVision AREDS] 1 cap PO BID Patient Comments: HASN'T TAKEN FOR 3 WEEKS BC OF DYSPHAGIA atorvastatin 40 mg tablet 40 mg PO QHS Qty: 90 3RF Patient Comments: HASN'T TAKEN FOR 3 WEEKS BC OF DYSPHAGIA Eliquis 2.5 mg tablet 2.5 mg PO BID Qty: 60 11RF Patient Comments: HASN'T TAKEN FOR 3 WEEKS BC OF DYSPHAGIA pantoprazole 40 mg tablet,delayed release (DR/EC) 40 mg PO DAILY Qty: 30 9RF Patient Comments: HASN'T TAKEN FOR 3 WEEKS BC OF DYSPHAGIA omeprazole 40 mg capsule,delayed release(DR/EC) 40 mg PO BID Qty: 60 2RF sucralfate [Carafate] 1 gram tablet 1 g PO QAC Qty: 90 0RF scopolamine base 1 mg over 3 days patch 3 day 1 patch transdermal Q3D PRN (Reason: stomach upset) Qty: 4 1RF Primary Care Provider: Alexi Morin Chi Referrals: Alexi Morin Chi, MD [Primary Care Provider] - 5-7 Days Print Language: Jamaican Disposition Disposition: Home, Self Care
[2024-04-23 08:20] LABS: Anion Gap 6 (5-15); BUN 20 mg/dL (7-18); BUN/Creat Ratio 14.7 RATIO (10-20); Calcium,Total 9.3 mg/dL (8.5-10.1); Chloride 110 mmol/L (98-107); Creatinine, Serum 1.36 mg/dL (0.55-1.02); EST Glomerular Filtration Rate 40 mL/min (>60); Est Glom Filt Rate - Afr Amer 49 mL/min (>60); Estimated Creatinine Clearance 34.06 ml/min; Glucose 108 mg/dL (74-106); Potassium 3.4 mmol/L (3.5-5.1); Sodium Level 141 mmol/L (136-145)
--- NOTE | 2024-04-23 08:25 | CT_ITS ---
STUDY: CT ABDOMEN AND PELVIS WITH CONTRAST REASON FOR EXAM: Female, 78 years old. hx-diverticulitis, htn, heart stents, surg-tubal ligation, appy, hyster, janis RADIATION DOSAGE (If Supplied By Facility): CTDIvol = ( 14.2 ) mGy, DLP = ( 1011.9 ) mGycm TECHNIQUE: Transaxial images were obtained from the dome of the diaphragm to the symphysis pubis without oral contrast. ml of 100mL Isovue-370 contrast was administered. Sagittal and coronal images were reconstructed. Individualized dose optimization techniques were used for this CT. COMPARISON: CT of abdomen and pelvis dated February 10, 2024 FINDINGS: There are chronic interstitial fibrotic changes of the lung bases. Liver: Redemonstration of geographic hypodensity in the posterior undersurface of the left lobe of the liver near the portal vein that either represents an old contusion or liver laceration versus a benign hemangioma hemangioma or an island of focal fatty infiltration. There is no enhancing lesions or infiltrative process in this region. The liver is otherwise unremarkable. Some additional areas of fatty infiltration is seen throughout the liver. There are surgical clips in the gallbladder fossa consistent with a prior cholecystectomy. Normal spleen. Normal pancreas. Normal bilateral adrenal glands. Normal right kidney. There is mild cortical atrophy of the left kidney, consistent with chronic medical renal disease. Normal visualized stomach. Normal small intestine. Redemonstration of extensive rectosigmoid diverticulosis without evidence of active inflammation. No visualized free air or pericolonic inflammatory stranding or abscess. No bowel wall thickening is present. No portal venous gas or other signs of ischemia. No visualized mass or intussusception. There is non-visualization of the appendix. There is diffuse atherosclerotic calcification of the abdominal aorta, without a demonstrated aneurysm. Normal inferior vena cava. Normal retroperitoneum. Normal urinary bladder. There is absence of the uterus consistent with a prior hysterectomy. Normal abdominal wall. There are diffuse degenerative changes of the visualized lumbar spine. CT/Abdomen/Pelvis W IV Cont ONLY IMPRESSION: 1. Liver: Redemonstration of geographic hypodensity in the posterior undersurface of the left lobe of the liver near the portal vein that either represents an old contusion or liver laceration versus a benign hemangioma hemangioma or an island of focal fatty infiltration. There is no enhancing lesions or infiltrative process in this region. 2. Recommendations: MRI of the abdomen with and without contrast, liver protocol to confidently assess the left lobe of the liver lesion, with a high probability of being benign 3. Extensive rectosigmoid diverticulosis without evidence of acute diverticulitis 4. No bowel dilatation or free air or inflammatory stranding or abscess. Electronically Signed: Edward Hyman MD at 10:34 EST ,
[2024-04-23 08:54] LABS: ALB/GLOB Ratio 0.6 RATIO (0.9-2.4); AST(SGOT) 22 U/L (15-37); Alanine Aminotransfer ALT/SGPT 15 U/L (13-56); Albumin, Serum 3.1 g/dL (3.2-5.0); Alkaline Phosphatase 115 U/L (45-117); Globulin 4.8 g/dL (2.2-4.2); Lipase 52 U/L (13-75); Protein, Total 7.9 g/dL (6.4-8.2)
[2024-04-23 09:21] LABS: International Normalized Ratio 1.1; Partial Thromboplast Time 27.4 Seconds (24.1-36.2); Prothrombin Time (Protime)PT. 14.1 SECONDS (11.7-14.9)
[2024-04-23 10:52] LABS: Bacteria 0 SEEN /hpf (None Seen); Mucous, Urine 0 SEEN /hpf (<or=2+); Red Blood Cells-Urine 0 SEEN /hpf (0-5); Squamous Epithelial Cells - UA 0 SEEN /hpf (5-10)
[2024-04-23 10:54] LABS: Color, Urine Yellow (Yellow); Glucose, Dipstick Normal (Normal); Ketone-Dipstick Negative (Negative); Leukocyte Esterase-Dipstick 500 /ul (Negative); Nitrite-Dipstick Negative (Negative); Occult Blood-Urine 10 /ul (Negative); Protein-Dipstick 30 mg/dl (Negative); Urine Bilirubin Dipstick Negative (Negative); Urine Clarity Sl. Cloudy (Clear); Urine Urobilinogen Normal (Normal)
[2024-04-23 11:00] LABS: White Blood Cells 25-50 SEEN /hpf (0-5)
[2024-04-23] MEDS: Ciprofloxacin 500 MG Tablet PO (12:09)
== END 2024-04-23 12:26 | disposition home or self-care (01) ==
PROVIDERS: Emergency Provider Emergency Medicine; PCP Family Medicine Geriatric Medicine; Visit Provider Emergency Medicine
DX: N30.90 Cystitis, unspecified without hematuria (principal); R11.2 Nausea with vomiting, unspecified; Z80.0 Family history of malignant neoplasm of digestive organs; R19.7 Diarrhea, unspecified; I25.10 Atherosclerotic heart disease of native coronary artery without angina pectoris; E78.00 Pure hypercholesterolemia, unspecified; I10 Essential (primary) hypertension; Z99.89 Dependence on other enabling machines and devices; Z98.51 Tubal ligation status; Z90.49 Acquired absence of other specified parts of digestive tract; Z90.710 Acquired absence of both cervix and uterus; Z95.5 Presence of coronary angioplasty implant and graft; M54.2 Cervicalgia; I87.2 Venous insufficiency (chronic) (peripheral); I25.2 Old myocardial infarction; Z87.19 Personal history of other diseases of the digestive system; K57.30 Diverticulosis of large intestine without perforation or abscess without bleeding; K76.0 Fatty (change of) liver, not elsewhere classified
CPT/HCPCS: 74177; 80048; 81001; 82040; 82247; 83690; 84075; 84155; 84450; 84460; 85025; 85610; 85730; 96361; 96374; 99285; P9612; Q9967; A4216

== ENCOUNTER → 2024-06-03 | Outpatient (CLI) | payer MEDICARE, SELFPAY ==
[2022-06-16 15:20] VITALS: BMI 37.3
--- NOTE | 2024-06-03 09:56 | ART_ITS ---
Reason For Study Reason For Study: PVD Procedure A bilateral lower extremity continuous wave Doppler with analog waveform analysis and ankle brachial indexes. Left Segmental Pressures Left brachial= 166mmHg. Left posterior tibial artery = 190mmHg. Left dorsalis pedis artery = 177mmHg. Left digit = 147 mmHg. The left dorsalis pedis waveforms are triphasic. The left posterior tibial artery waveforms are triphasic. Right Segmental Pressures Right brachial= 155mmHg. Right posterior tibial artery = 202mmHg. Right dorsalis pedis artery = 182mmHg. Right digit = >254 mmHg. The right dorsalis pedis waveforms are triphasic. The right posterior tibial artery waveforms are triphasic. Indices The right ankle brachial index by the dorsalis pedis is 1.10. The right ankle brachial index by the posterior tibial artery is 1.22. The right digital-brachial index is NC. The left ankle brachial index by the dorsalis pedis is 1.07. The left ankle brachial index by the posterior tibial artery is 1.14. The left post exercise ankle brachial index is 0.89. VL/Ankle Brachial Index Interpretation Summary Triphasic Doppler waveforms are noted at ankle level bilaterally. Pulse-volume recordings appear satisfactory at ankle and digital level bilaterally. Resting ankle-brachial indices are normal bilate rally. The right digital-brachial index could not be determined due to the non-compressiblity of the vasculature at dig ital level. The left digital-brachial index is normal. There is evidence of arterial calcification at digital level on the right. Ther e is no evidence of significant arterial occlusive disease in the lower extremities bilaterally. Ordering Physician: Mehrdad Crowe Referring Physician: Alexi Morin Chi Performed By: Mariposa Elizabeth RVT and Student
--- NOTE | 2024-06-03 09:56 | VDLE_ITS ---
Reason For Study Reason For Study: Bilateral leg pain RIGHT LEFT Acute superficial vein thrombosis is noted in the Acute superficial vein thrombosis is noted in the right GSV from junction to mid thigh. It is left GSV from junction to mid thigh. It is approximately 3.51 cm from CFV. approximately 4.09 cm from CFV. CFV is compressible, spontaneous, phasic, competent CFV is compressible, spontaneous, phasic, competent, and demonstrates normal augmentation. and demonstrates normal augmentation. FV is compressible, phasic, and INCOMPETENT for FV is compressible, spontaneous, phasic, competent greater than 1.0 second. and demonstrates normal augmentation. POP V is compressible, spontaneous, phasic, competent POP V is compressible, spontaneous, phasic, competent and demonstrates normal augmentation. and demonstrates normal augmentation. T/P Trunk is compressible. T/P Trunk is compressible. PTV is compressible. PTV is compressible. RT PerV is compressible. LT PerV is compressible. Procedure This is a venous duplex using B-mode, color flow and spectral Doppler. Exam performed in department. A preliminary report was called and/or faxed to Elaine @ Dr. Crowe and Dr. Morin. VL/Venous Duplex US - Pedro Extrem Interpretation Summary Deep veins of the lower extremities are bilaterally patent and compressible seg mentally. There is no evidence of deep vein thrombosis on either side. The right femoral vein is incompetent. Valvular competence appears intact within the proximal deep venous system on the left . Acute superficial thrombophlebitis is noted in the proximal right and proximal left great saphenous veins, more than 3.5 centimeters from the junction with th e common femoral vein on each side. Ordering Physician: Mehrdad Crowe Referring Physician: Alexi Morin Chi Performed By: Mariposa Elizabeth RVT and Student
== END | disposition home or self-care (01) ==
LOC: CVS 09:55
PROVIDERS: PCP Family Medicine Geriatric Medicine; Referring Provider Podiatrist Foot & Ankle Surgery; Visit Provider Podiatrist Foot & Ankle Surgery
DX: I73.89 Other specified peripheral vascular diseases (principal); M79.604 Pain in right leg; M79.605 Pain in left leg
CPT/HCPCS: 93922; 93970

== ENCOUNTER → 2024-06-27 | Outpatient (CLI) | payer MEDICARE, SELFPAY ==
[2022-06-16 15:20] VITALS: BMI 37.3
[2024-06-27 10:15] LABS: Absolute Lymphocyte Count 1.73 X10^3/uL (0.83-4.51); Basophil# 0.05 X10^3/uL; Basophil% 0.7 % (0-1); Eosinophil# 0.22 X10^3/uL; Eosinophils% 2.9 % (0-5); Hematocrit 40.2 % (37-47); Hemoglobin 12.3 g/dL (12.0-15.0); Lymphocyte # 1.73 X10^3/ul (0.83-4.51); Lymphocyte % 23.1 % (19-41); Mean Corp Hgb Conc 30.6 g/dL (32-36); Mean Corpuscular Hgb 25.7 pg (27.0-32.0); Mean Corpuscular Volume 83.9 fL (81-99); Monocyte# 0.47 X10^3/uL; Monocyte% 6.3 % (0-10); NRBC Flagged by Analyzer 0 % (0-5); Neutrophil # 4.98 X10^3/uL (2.7-7.7); Neutrophil % 66.6 % (47-70); Platelet Count 303 K/mm3 (150-450); RBC Distribution Width CV 17.2 % (11.6-14.6); RBC Distribution Width SD 52.2 fl (35.1-43.9); Red Blood Count 4.79 M/mm3 (4.2-5.4); White Blood Count 7.5 K/mm3 (4.4-11.0)
[2024-06-27 10:57] LABS: ALB/GLOB Ratio 1.1 RATIO (0.9-2.4); AST(SGOT) 21 U/L (<=31); Alanine Aminotransfer ALT/SGPT 11 U/L (<=34); Albumin, Serum 3.8 g/dL (3.4-4.8); Alkaline Phosphatase 107 U/L (35-104); Anion Gap 12 (5-15); BUN 17 mg/dL (4-19); BUN/Creat Ratio 16.4 RATIO (10-20); Calcium,Total 9.5 mg/dL (7.6-11.0); Carbon Dioxide 22.2 mmol/L (21.0-32.0); Chloride 108 mmol/L (98-108); Creatinine, Serum 1.01 mg/dL (0.70-1.20); EST Glomerular Filtration Rate 57 (>60); Globulin 3.6 g/dL (2.2-4.2); Glucose 84 mg/dL (70-99); Potassium 4.1 mmol/L (3.3-5.1); Protein, Total 7.4 g/dL (5.9-8.4); Sodium Level 142 mmol/L (133-145); Total Bilirubin 0.66 mg/dL (0.00-1.30); Vitamin D,25 Hydroxy 32.5 ng/mL (30-100)
== END | disposition home or self-care (01) ==
LOC: POLAB3 09:14
PROVIDERS: PCP Family Medicine Geriatric Medicine; Referring Provider Family Medicine Geriatric Medicine; Visit Provider Family Medicine Geriatric Medicine
DX: I10 Essential (primary) hypertension (principal); E55.9 Vitamin D deficiency, unspecified
CPT/HCPCS: 36415; 80053; 82306; 84443; 85025

== ENCOUNTER → 2024-07-09 | Outpatient (CLI) | payer MEDICARE, SELFPAY ==
[2022-06-16 15:20] VITALS: BMI 37.3
--- NOTE | 2024-07-09 10:09 | MRI_ITS ---
PROCEDURE: MRI ABD WITH AND W/O CONTRAST ([id number]), 07/09/2024 REASON FOR EXAM: LIVER HEMANGIOMA TECHNIQUE: Multiplanar multisequence MRI abdomen was performed with and without IV contrast. IV CONTRAST: 17 mL Clariscan COMPARISON: 04/23/2024 FINDINGS: Variable overall mild motion limitation. Some sequences are mild/moderately motion degraded. Liver: Mild geographic signal abnormality along the subcapsular aspect of segment III without abnormal enhancement, compatible with focal steatosis. This is grossly similar recent exams dating back to 02/18/2024 allowing for the difference in modality, but new from more remote exams. No focal enhancing or definite space-occupying lesion identified. Spleen: Unremarkable. Gallbladder: Cholecystectomy. Similar mild prominence of the CBD at 8 mm, likely post cholecystectomy effect. Pancreas: Unremarkable. Adrenals: Unremarkable. Kidneys: Small cysts on the LEFT. Bowel: Grossly unremarkable, but not well evaluated by MRI and better assessed previously. Lymph nodes: Unremarkable. Vasculature: Atherosclerosis. Peritoneum: Unremarkable. Body Wall: Unremarkable. Bones: Multilevel spondylosis and thoracolumbar levoscoliosis. MRI/MRI Abd WITH and W/O Contrast IMPRESSION: 1. No suspicious hepatic lesion identified. Previous CT finding appears to rep resent focal hepatic steatosis. 2. Additional description as above. Reading Location: [id number]
== END | disposition home or self-care (01) ==
PROVIDERS: PCP Family Medicine Geriatric Medicine; Referring Provider Family Medicine Geriatric Medicine; Visit Provider Family Medicine Geriatric Medicine
DX: D18.03 Hemangioma of intra-abdominal structures (principal)
CPT/HCPCS: 74183; A9575; A4216

== ENCOUNTER → 2024-10-09 | Outpatient (CLI) | payer MEDICARE, SELFPAY ==
[2022-06-16 15:20] VITALS: BMI 37.3
== END | disposition home or self-care (01) ==
LOC: PSN 09:41
PROVIDERS: PCP Family Medicine Geriatric Medicine; Referring Provider Nurse Practitioner Family; Visit Provider Nurse Practitioner Family
DX: R00.2 Palpitations (principal); I48.0 Paroxysmal atrial fibrillation; I25.10 Atherosclerotic heart disease of native coronary artery without angina pectoris; R53.82 Chronic fatigue, unspecified; R00.0 Tachycardia, unspecified
CPT/HCPCS: 93225; 93226

== ENCOUNTER → 2024-10-14 | Outpatient (CLI) | payer MEDICARE, SELFPAY ==
[2022-06-16 15:20] VITALS: BMI 37.3
== END | disposition home or self-care (01) ==
LOC: LABSPEC 17:56
PROVIDERS: PCP Family Medicine Geriatric Medicine; Visit Provider Family Medicine Geriatric Medicine
DX: N39.0 Urinary tract infection, site not specified (principal)
CPT/HCPCS: 87086; 87088

== ENCOUNTER 2024-10-20 14:51 | Observation (INO) | payer MEDICARE, SELFPAY ==
[2022-06-16 15:20] VITALS: BMI 37.3
[2024-10-20] VITALS (11 sets, daily range): BP systolic 99–154; BP diastolic 62–81; PULSE 78–91; RESP 14–18; TEMP 36.8–36.9; O2SAT 94–99; BMI 36.1; BMI 36.4
--- NOTE | 2024-10-20 15:08 | RAD_ITS ---
PROCEDURE: CHEST PA AND LATERAL 10/20/2024 REASON FOR EXAM: CHEST PAIN TECHNIQUE: CHEST PA AND LATERAL COMPARISON: 01/18/2024 FINDINGS: Hardware: EKG leads overlie the chest Heart: The heart size is normal. Mediastinum: The mediastinal contour is unremarkable. Lungs: The lungs are clear. Bones: Degenerative changes are identified within the thoracic spine. RAD/Chest PA and Lateral IMPRESSION: No acute pulmonary process, no interval change Reading Location: [id number]
--- NOTE | 2024-10-20 15:08 | EKG12_ITS ---
Test Reason : CP Blood Pressure : */* mmHG Vent. Rate : 113 BPM Atrial Rate : 326 BPM P-R Int : * ms QRS Dur : 76 ms QT Int : 392 ms P-R-T Axes : 79 -13 18 degrees QTcB Int : 537 ms Atrial flutter with variable A-V block Cannot rule out Anterior infarct , age undetermined Prolonged QT Abnormal ECG Confirmed by TEJAL BENNETT, AISHWARYA ([id number]), features editor CLAUDIA DIOP ([id number]) on 10/21/2024 1:33:09 PM Referred By: Raulito Sen Confirmed By: AISHWARYA TOURE MD
--- NOTE | 2024-10-20 15:22 | ED.VIS.CHEST ---
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 Patient states that on Sunday she states that she has been progressively getting worsening shortness of breath with exertion and notes that Sunday she developed left-sided chest pain that radiated down her left arm. States that her last heart cath was in January of this past year. She denies missing doses of her Eliquis denies any recent travels denies any history of blood clots. Denies sick contacts. 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 Wears glasses Wears dentures Ambulates with cane High cholesterol History of hiatal hernia History of diverticulitis Shortness of breath on exertion Non-smoker Leg cramps History of Holter monitoring History of stress test Cardiology follow-up encounter Stable angina Shortness of breath Mass of soft tissue Chronic anticoagulation Iron deficiency anemia Esophageal stenosis History of left heart catheterization (LHC) Hypokalemia Bilateral edema of lower extremity Atrial fibrillation HTN (hypertension) Myocardial infarct Gastroesophageal reflux disease Depression Hyperlipidemia Osteoarthritis of knee Coronary artery disease Cardiac arrest Atherosclerosis of coronary artery of [place] heart without angina pectoris Neuropathy of right lower extremity Contusion of right lower leg, sequela Chronic venous insufficiency of lower extremity Incontinence Back pain Shoulder pain Hemorrhoids Vitamin deficiency Rheumatoid arthritis Cataracts, bilateral UTI (urinary tract infection) Bone fracture Breast lump in female History of back problems Arthritis Left breast lump Fibromyalgia Obesity Generalized osteoarthritis GERD (gastroesophageal reflux disease) Home Medications ?Medication ?Instructions ?Recorded ?Last Taken ?Type nitroglycerin 0.4 mg sublingual 0.4 mg sublingual Q5M PRN 12/05/20 11/08/22 Rx tablet Cardiac/Chest Pain #1 BOTTLE atorvastatin 40 mg tablet 40 mg PO QHS Cholestrol #90 tabs 01/16/22 10/19/24 Rx cholecalciferol (vitamin D3) 25 25 mcg PO DAILY SUPPLEMENT 02/28/22 10/20/24 History mcg (1,000 unit) tablet diazepam 2 mg tablet (Valium) 2 mg PO UD PRN dizziness or 11/23/22 Unknown Rx vertigo #20 tabs isosorbide mononitrate 60 mg 60 mg PO DAILY #90 tabs 01/04/23 10/19/24 Rx tablet,extended release 24 hr buspirone 7.5 mg tablet 7.5 mg PO BID 11/01/23 10/20/24 History meclizine 25 mg tablet 25 mg PO DAILY PRN dizziness 11/01/23 Unknown History vitamins A,C,A-[id number] 1 cap PO BID EYE HEALTH 11/15/23 10/20/24 History rosuvastatin 40 mg tablet 40 mg PO QDAY 12/27/23 10/20/24 History apixaban 2.5 mg tablet (Eliquis) 2.5 mg PO BID #60 tabs 01/14/24 10/20/24 Rx pantoprazole 40 mg tablet,delayed 40 mg PO DAILY #30 TABLETS 01/22/24 10/19/24 Rx release amiodarone 200 mg tablet 200 mg PO QDAY 10/20/24 10/20/24 History amlodipine 5 mg tablet 5 mg PO QDAY 10/20/24 10/20/24 History metoprolol succinate 100 mg 25 mg PO QDAY 10/20/24 10/20/24 History tablet,extended release 24 hr potassium chloride 10 mEq 10 meq PO BID 10/20/24 10/20/24 History capsule,extended release Allergy/AdvReac Type Severity Reaction Status Date / Time bee pollen Allergy Anaphylaxis Verified 10/20/24 14:52 latex Allergy Swelling Verified 10/20/24 14:52 morphine Allergy Other Verified 10/20/24 14:52 Penicillins Allergy Hives Verified 10/20/24 14:52 ranolazine AdvReac Intermediate Dizzy and Verified 10/20/24 14:52 Lightheaded hydrocodone bitartrate (From AdvReac Abd Verified 10/20/24 14:52 Vicodin) cramps/diarrhea Family History Father Diabetes Heart disease Hypertension CVA (cerebral vascular accident) Parkinson disease Mother Breast cancer Hypertension Grandmother Cancer pancreatic cancer Ovarian cancer Son Anesthesia complication Brother Asthma Arthritis Diabetes Respiratory disease Grandfather Lung cancer CVA (cerebral vascular accident) Surgical History History of tubal ligation History of cardiac catheterization History of coronary artery stent placement Hematoma Hx of appendectomy History of cataract surgery History of left breast biopsy (~11/2017) history bilateral breast biopsies History of repair of right rotator cuff History of bilateral knee replacement History of hysterectomy History of laparoscopic cholecystectomy History of tonsillectomy and adenoidectomy Social History household members: spouse Smoking Status: Never smoker alcohol intake: never substance use type: does not use caffeine: Yes Type: carbonated beverages Number of servings: 1 and coffee Number of servings: 1 additional social history: DOES NOT USE IBUPROFEN ROS ROS ED ROS Narrative Constitutional: Complains of lightheadedness denies any fevers, chills, headaches Eyes: Denies change in vision double vision blurry vision Cardiovascular: With chest pain as noted above denies palpitations Respiratory: Complains of shortness of breath as noted above denies coughing wheezing Abdomen: Denies abdominal pain nausea vomit diarrhea : Denies urinary symptoms Neurological: Denies numbness, weakness, tingling Musculoskeletal: Denies back pain Skin: Denies any rashes or lesions EXAM Physical Exam Narrative Exam Narrative: General: Patient lying in bed rest comfortably did not appear to be acute distress Head: Atraumatic, normocephalic Eyes: PERRL bilaterally, EOMI bilateral, no conjunctival injection noted Neck: Soft, supple, trachea midline Cardiovascular: Patient has an irregular irregular rhythm with tachycardic rate no murmurs gallops rubs noted Respiratory: Diminished breath sounds at the bases bilaterally Abdomen: Soft, nondistended, tender to palpation Extremities: Radial pulses +2/4 in the bilateral extremities, 1+ pitting edema in the bilateral lower extremities Neurological: Patient follow commands and that she was at [facility] year is 2024 Skin: Warm, dry, intact no rashes or lesions noted Const Vital Signs: 10/20/24 14:52 10/20/24 15:08 10/20/24 15:29 Temperature 98.3 F Temperature Source Oral Pulse Rate 87 Respiratory Rate 16 Respiratory Effort Normal Blood Pressure 112/77 Blood Pressure Mean 88 Pulse Ox 96 99 Oxygen Delivery Method Room Air Room Air 10/20/24 15:52 10/20/24 16:00 10/20/24 17:00 Temperature Temperature Source Pulse Rate 90 90 Respiratory Rate 14 17 Respiratory Effort Blood Pressure 99/69 99/69 120/77 Blood Pressure Mean 79 79 91 Pulse Ox 96 94 Oxygen Delivery Method Room Air Room Air Room Air 10/20/24 18:23 10/20/24 19:00 Temperature Temperature Source Pulse Rate 78 91 Respiratory Rate 16 14 Respiratory Effort Blood Pressure 129/62 H 141/66 H Blood Pressure Mean 84 91 Pulse Ox 97 96 Oxygen Delivery Method Room Air Room Air MDM MDM MDM Narrative Medical decision making narrative: Patient is a 79-year-old female who presented to the emergency department the chief complaint of shortness of breath, chest pain from 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 On the differential diagnose includes but not limited to ACS, pneumonia, pneumothorax, CHF exacerbation, atrial fibrillation with rapid ventricular response. Once workup is obtained reviewed she will be reevaluated. Patient's cardiology team called down and notified me that she was coming down to be evaluated. They state that her heart rate was in the 140s. They were concerned given her chest pain and shortness of breath with her symptoms they wanted her to be further evaluated. Patient's CBC was reviewed and showed no evidence leukocytosis white blood count was 2.8, he was 12.3, plate count was 306. Patient sodium was 142, potassium normal 3.9, creatinine was 1.15. Patient's troponin was 20 with a delta troponin of 17, proBNP was 2281. Patient's EKG was reviewed and showed atrial flutter with very block with a rate of 113 bpm. Patient's chest x-ray reviewed and showed no acute cardiopulmonary processes and this reviewed by myself by radiology. Patient was ambulated here in the emergency department during this time she told me that she felt short of breath, lightheaded however she did not become hypoxic. Discussed case with on-call manager machine Dr. Maldonado and states that since she is not chronically in atrial fibrillation/flutter and she is symptomatic he would recommend admission given that she is already on several other medications. Will discuss case with hospitalist for admission. Discussed case with hospitalist Dr. Sorenson who accept patient for admission. Lab Data Labs: Laboratory Results - last 24 hr 10/20/24 10/20/24 15:17 17:39 WBC 7.8 RBC 4.51 Hgb 12.3 Hct 38.2 MCV 84.7 MCH 27.3 MCHC 32.2 RDW Std Deviation 45.5 H RDW Coeff of April 14.9 H Plt Count 306 MPV 10.0 Immature Gran % (Auto) 0.300 Neut % (Auto) 63.8 Lymph % (Auto) 25.3 [place] % (Auto) 7.1 Eos % (Auto) 2.7 Baso % (Auto) 0.8 Absolute Neuts (auto) 5.0 Absolute Lymphs (auto) 1.96 Nucleated RBC % 0 Sodium 142 Potassium 3.9 Chloride 103 Carbon Dioxide 26.5 Anion Gap 13 BUN 20 H Creatinine 1.15 Estim Creat Clear Calc 39.36 L Est GFR (MDRD) Non-Af 49 L BUN/Creatinine Ratio 17.1 Glucose 137 H Calcium 9.8 Troponin T High Sens 20 H Troponin T Hi Sens 2 Hr 17 H NT pro BNP II 2281 H TSH 0.952 Free T4 1.20 Free T3 pg/dL 2.1 L Radiography Diagnostic Testing: Clinical Impression(s) from Imaging Studies Chest X-Ray 10/20/24 15:08 IMPRESSION: No acute pulmonary process, no interval change Reading Location: [id number] Discharge Plan Triage Chief Complaint: Chest Pain ED Provider: Rohit Sweeney Dx/Rx/DC Orders Clinical Impression: Light-headed, Shortness of breath, Atrial flutter Prescriptions: No Action isosorbide mononitrate 60 mg tablet extended release 24 hr 60 mg PO DAILY Qty: 90 3RF meclizine 25 mg tablet 25 mg PO DAILY PRN (Reason: dizziness) buspirone 7.5 mg tablet 7.5 mg PO BID rosuvastatin 40 mg tablet 40 mg PO QDAY potassium chloride 10 mEq capsule, extended release 10 meq PO BID amiodarone 200 mg tablet 200 mg PO QDAY amlodipine 5 mg tablet 5 mg PO QDAY metoprolol succinate 100 mg tablet extended release 24 hr 25 mg PO QDAY cholecalciferol (vitamin D3) 25 mcg (1,000 unit) tablet 25 mcg PO DAILY Patient Comments: nitroglycerin 0.4 mg Tablet, Sublingual 0.4 mg sublingual Q5M PRN (Reason: Cardiac/Chest Pain) Qty: 1 0RF diazepam [Valium] 2 mg tablet 2 mg PO UD PRN (Reason: dizziness or vertigo) Qty: 20 0RF Rx Instructions: 1 3-4 times a day for dizziness vitamins A,C,[id number] [PreserVision AREDS] 1 cap PO BID atorvastatin 40 mg tablet 40 mg PO QHS Qty: 90 3RF Eliquis 2.5 mg tablet 2.5 mg PO BID Qty: 60 11RF pantoprazole 40 mg tablet,delayed release (DR/EC) 40 mg PO DAILY Qty: 30 9RF Primary Care Provider: Alexi Morin Chi Referrals: Alexi Morin Chi, MD [Primary Care Provider] - Print Language: Thai Disposition Disposition: Acute Care Hospital [facility]
[2024-10-20 15:24] LABS: Hematocrit 38.2 % (37-47); Hemoglobin 12.3 g/dL (12.0-15.0); Immature Granulocytes Count 0.020 X10^3/uL (0.0-0.0); Mean Corp Hgb Conc 32.2 g/dL (32-36); Mean Corpuscular Volume 84.7 fL (81-99); Mean Platelet Vol. 10.0 fl (6.2-12.0); NRBC Flagged by Analyzer 0 % (0-5); Platelet Count 306 K/mm3 (150-450); RBC Distribution Width CV 14.9 % (11.6-14.6); RBC Distribution Width SD 45.5 fl (35.1-43.9); Red Blood Count 4.51 M/mm3 (4.2-5.4); White Blood Count 7.8 K/mm3 (4.4-11.0)
[2024-10-20] MEDS: 0.9% Normal Saline (1000mL) 1,000 ML 999 ML IV (16:00)
[2024-10-20 16:04] LABS: Anion Gap 13 (5-15); BUN 20 mg/dL (4-19); BUN/Creat Ratio 17.1 RATIO (10-20); Calcium,Total 9.8 mg/dL (7.6-11.0); Carbon Dioxide 26.5 mmol/L (21.0-32.0); Chloride 103 mmol/L (98-108); Estimated Creatinine Clearance 39.36 ml/min (50-250); Glucose 137 mg/dL (70-99); Potassium 3.9 mmol/L (3.3-5.1)
[2024-10-20 16:07] LABS: Free T3 2.1 pg/mL (2.18-3.98); Pro- Brain NATRIURETIC PEPTIDE 2281 pg/mL (<=1800); Troponin T High Sensitivity 20 ng/L (<=14)
[2024-10-20 18:24] LABS: Troponin T High Sens 2 HR 17 ng/L (<=14)
--- NOTE | 2024-10-20 19:14 | PCM.HP.STD ---
[facility] - General General Date of Admission: 10/20/24 Date of Service: 10/20/24 Chief Complaint: Chest Pain. [facility] Narrative JIE MOON, is a 79 F with a past medical history of essential hypertension; on amlodipine and metoprolol, hyperlipidemia; on rosuvastatin, obesity; with BMI of 36.1 this admission, SHANAE; intolerant of CPAP, CAD; s/p DC with subsequent LAD stent on as needed SL NTG plus ISMO, chronic atrial fibrillation/flutter; on amiodarone and apixaban twice daily, history of DVT, history of RA, history of asthma, depression; on buspirone twice daily, CHAUNCEY, neuropathy of the Right lower extremity, chronic venous insufficiency, fibromyalgia, history of vertigo; on as needed meclizine and diazepam as needed, history of migraine headaches, history of diverticulitis, GERD with history of hiatal hernia and esophageal stenosis; on pantoprazole and OA who presents to [facility] ER complaining of chest pain. Ms. Moon reports her symptoms began approximately 3 days prior to admission on Thursday, October 17, 2024 with chest pain that began at rest and was Left-sided with radiation down into her Left arm with dyspnea on exertion and with nothing seeming to make the pain better or worse. She then went to her [facility] office earlier today and was sent to the ER for further evaluation and treatment. She states her last [facility] was in January of this past year. She denies missing doses of her apixaban or other cardiac medications. She also denies sick contacts or recent travel. She admits to lightheadedness with chest pain radiating into her Left arm with dyspnea on exertion with ~1+ bilateral lower extremity pitting edema but she denies palpitations, heart racing, abdominal pain, nausea, vomiting, diarrhea, constipation, dysuria, hematuria, arthralgias, myalgias, back pain or rash. In the ER she was noted to have Chest Pain with an elevated initial troponin T of 20 ng/L followed by a decreasing troponin T level of 17 ng/L with an elevated NT pro-BNP II of 2,281 pg/mL consistent with suspected mild AE CHF with a chest x-ray that revealed no acute pulmonary process and she was then admitted to the PCU under observation status for ongoing care for status expected to be less than 2 midnights. COUNT INCLUDES THE [facility] Medical History DVT (deep venous thrombosis) Migraines Diverticulosis Heartburn Gastric reflux CPAP (continuous positive airway pressure) dependence Sleep apnea History of echocardiogram Iron deficiency anemia due to chronic blood loss Hoarseness Dyspnea Loss of hearing Post-menopausal Low iron Difficulty chewing Chronic cough Asthma assisted current use of amiodarone Wears glasses Wears dentures Ambulates with cane High cholesterol History of hiatal hernia History of diverticulitis Shortness of breath on exertion Non-smoker Leg cramps History of Holter monitoring History of stress test Cardiology follow-up encounter Stable angina Shortness of breath Mass of soft tissue Chronic anticoagulation Iron deficiency anemia Esophageal stenosis History of left heart catheterization (LHC) Hypokalemia Bilateral edema of lower extremity Atrial fibrillation HTN (hypertension) Myocardial infarct Gastroesophageal reflux disease Depression Hyperlipidemia Osteoarthritis of knee Coronary artery disease Cardiac arrest Atherosclerosis of coronary artery of [place] heart without angina pectoris Neuropathy of right lower extremity Contusion of right lower leg, sequela Chronic venous insufficiency of lower extremity Incontinence Back pain Shoulder pain Hemorrhoids Vitamin deficiency Rheumatoid arthritis Cataracts, bilateral UTI (urinary tract infection) Bone fracture Breast lump in female History of back problems Arthritis Left breast lump Fibromyalgia Obesity Generalized osteoarthritis GERD (gastroesophageal reflux disease) Home Medications ?Medication ?Instructions ?Recorded ?Last Taken ?Type nitroglycerin 0.4 mg sublingual 0.4 mg sublingual Q5M PRN 12/05/20 11/08/22 Rx tablet Cardiac/Chest Pain #1 BOTTLE atorvastatin 40 mg tablet 40 mg PO QHS Cholestrol #90 tabs 01/16/22 10/19/24 Rx cholecalciferol (vitamin D3) 25 25 mcg PO DAILY SUPPLEMENT 02/28/22 10/20/24 History mcg (1,000 unit) tablet diazepam 2 mg tablet (Valium) 2 mg PO UD PRN dizziness or 11/23/22 Unknown Rx vertigo #20 tabs isosorbide mononitrate 60 mg 60 mg PO DAILY #90 tabs 01/04/23 10/19/24 Rx tablet,extended release 24 hr buspirone 7.5 mg tablet 7.5 mg PO BID 11/01/23 10/20/24 History meclizine 25 mg tablet 25 mg PO DAILY PRN dizziness 11/01/23 Unknown History vitamins A,C,A-dneq-levudl 1 cap PO BID EYE HEALTH 11/15/23 10/20/24 History rosuvastatin 40 mg tablet 40 mg PO QDAY 12/27/23 10/20/24 History apixaban 2.5 mg tablet (Eliquis) 2.5 mg PO BID #60 tabs 01/14/24 10/20/24 Rx pantoprazole 40 mg tablet,delayed 40 mg PO DAILY #30 TABLETS 01/22/24 10/19/24 Rx release amiodarone 200 mg tablet 200 mg PO QDAY 10/20/24 10/20/24 History amlodipine 5 mg tablet 5 mg PO QDAY 10/20/24 10/20/24 History metoprolol succinate 100 mg 25 mg PO QDAY 10/20/24 10/20/24 History tablet,extended release 24 hr potassium chloride 10 mEq 10 meq PO BID 10/20/24 10/20/24 History capsule,extended release Allergy/AdvReac Type Severity Reaction Status Date / Time bee pollen Allergy Anaphylaxis Verified 10/20/24 14:52 latex Allergy Swelling Verified 10/20/24 14:52 morphine Allergy Other Verified 10/20/24 14:52 Penicillins Allergy Hives Verified 10/20/24 14:52 ranolazine AdvReac Intermediate Dizzy and Verified 10/20/24 14:52 Lightheaded hydrocodone bitartrate (From AdvReac Abd Verified 10/20/24 14:52 Vicodin) cramps/diarrhea Family History Father Diabetes Heart disease Hypertension CVA (cerebral vascular accident) Parkinson disease Mother Breast cancer Hypertension Grandmother Cancer pancreatic cancer Ovarian cancer Son Anesthesia complication Brother Asthma Arthritis Diabetes Respiratory disease Grandfather Lung cancer CVA (cerebral vascular accident) Surgical History History of cholecystectomy History of tubal ligation History of cardiac catheterization History of coronary artery stent placement Hematoma Hx of appendectomy History of cataract surgery History of left breast biopsy (~11/2017) history bilateral breast biopsies History of repair of right rotator cuff History of bilateral knee replacement History of hysterectomy History of laparoscopic cholecystectomy History of tonsillectomy and adenoidectomy Social History household members: spouse Smoking Status: Never smoker alcohol intake: never substance use type: does not use caffeine: Yes Type: carbonated beverages Number of servings: 1 and coffee Number of servings: 1 additional social history: DOES NOT USE IBUPROFEN ROS ROS Narrative Review of Systems: Constitutional: Patient admits to lightheadedness but she denies fever or chills. Eyes: Patient denies change in vision or discharge from eyes. ENT: Patient denies runny nose, sore throat or ear pain. Resp: Patient admits to shortness of breath as noted above but she denies cough or wheezing. CV: Patient admits to chest pain that is pressure-like and radiating down her Left arm with nothing seeming to make the pain better or worse as per HPI. GI: Patient denies abdominal pain, nausea, vomiting, diarrhea or constipation. : Patient denies dysuria or hematuria. MSK: Patient denies arthralgias or myalgias. Skin: Patient denies rash, abscess, wounds or jaundice. Psych: Patient denies symptoms of uncontrolled depression or anxiety. Neuro: Patient denies headache, paresthesias or focal neurologic deficits. Allergy: Patient denies lip swelling, tongue swelling or urticaria. Hematology: Patient admits to easy bleeding and easy bruisability on apixaban. Endocrinology: Patient denies polyuria, polydipsia, polyphagia or heat/cold intolerance. 14 point ROS otherwise negative save for positives noted above in HPI. Vital Signs Vital Signs Vital Signs: 10/20/24 14:52 10/20/24 15:08 10/20/24 15:29 Temperature 98.3 F Temperature Source Oral Pulse Rate 87 Respiratory Rate 16 Respiratory Effort Normal Blood Pressure 112/77 Blood Pressure Mean 88 Pulse Ox 96 99 Oxygen Delivery Method Room Air Room Air 10/20/24 15:52 10/20/24 16:00 10/20/24 17:00 Temperature Temperature Source Pulse Rate 90 90 Respiratory Rate 14 17 Respiratory Effort Blood Pressure 99/69 99/69 120/77 Blood Pressure Mean 79 79 91 Pulse Ox 96 94 Oxygen Delivery Method Room Air Room Air Room Air 10/20/24 18:23 Temperature Temperature Source Pulse Rate 78 Respiratory Rate 16 Respiratory Effort Blood Pressure 129/62 H Blood Pressure Mean 84 Pulse Ox 97 Oxygen Delivery Method Room Air Weight Weight: 185 lb Body Mass Index (BMI) 36.1 Physical Exam Const alert, oriented x3, no apparent distress and healthy appearing Constitutional Narrative: Obese and nontoxic in appearance. General Appearance: cooperative HEENT normocephalic, head/scalp atraumatic, hearing grossly normal bilaterally and moist oral mucous membranes Eyes PERRL and EOMs intact bilaterally Neck no lymphadenopathy and supple Resp Resp Narrative: Diminished breath sounds throughout. Cardio Cardio Narrative: Irregularly irregular. GI normal to inspection, nondistended, normoactive bowel sounds, soft to palpation, non-tender and non-distended GI Narrative: Obese. Extremity Extremity Narrative: ~1+ bilateral lower extremity pitting edema. Skin Skin Narrative: Patient has evidence of rash, abscess, wounds or jaundice. Neuro oriented x3, CN's II-XII intact bilaterally, moves all extremities and no focal motor deficits Sensorium / Orientation: awake, alert, oriented to person, oriented to place and oriented to time Speech: speech normal Psych affect normal Results Medical Records Data Attestation: I reviewed the patient's medical records Lab / Micro Data Attestation: I reviewed the patient's lab results. 10/20/24 15:17 10/20/24 15:17 Labs: Laboratory Results - last 24 hr 10/20/24 15:17: WBC 7.8, RBC 4.51, Hgb 12.3, Hct 38.2, MCV 84.7, MCH 27.3, MCHC 32.2, RDW Std Deviation 45.5 H, RDW Coeff of April 14.9 H, Plt Count 306, MPV 10.0, Immature Gran % (Auto) 0.300, Neut % (Auto) 63.8, Lymph % (Auto) 25.3, Foard % (Auto) 7.1, Eos % (Auto) 2.7, Baso % (Auto) 0.8, Absolute Neuts (auto) 5.0, Absolute Lymphs (auto) 1.96, Nucleated RBC % 0, Sodium 142, Potassium 3.9, Chloride 103, Carbon Dioxide 26.5, Anion Gap 13, BUN 20 H, Creatinine 1.15, Estim Creat Clear Calc 39.36 L, Est GFR (MDRD) Non-Af 49 L, BUN/Creatinine Ratio 17.1, Glucose 137 H, Calcium 9.8, Troponin T High Sens 20 H, NT pro BNP II 2281 H, TSH 0.952, Free T4 1.20, Free T3 pg/dL 2.1 L 10/20/24 17:39: Troponin T Hi Sens 2 Hr 17 H Imaging Radiology Impression Chest X-Ray 10/20/24 15:08 IMPRESSION: No acute pulmonary process, no interval change Reading Location: [facility] Assessment & Plan Assessment/Plan (1) CHF exacerbation: QUALIFIERS: Heart failure type: diastolic Qualified Code(s): I50.33 - Acute on chronic diastolic (congestive) heart failure (2) Chest pain: QUALIFIERS: Chest pain type: unspecified Qualified Code(s): R07.9 - Chest pain, unspecified (3) Atrial flutter: QUALIFIERS: Atrial flutter type: unspecified Qualified Code(s): I48.92 - Unspecified atrial flutter (4) Obesity (BMI 30-39.9): PLAN: Plan 1. Elevated NT pro-BNP II of 2,281 pg/mL with ~1+ bilateral LE pitting edema consistent with suspected mild AE CHF - Admit to PCU under observation status. Give furosemide 40 mg IV daily plus check NT pro-BNP II daily. Check echocardiogram to evaluate LVEF with last 1 showing LVEF of 64% with [id number] (1-2+) tricuspid valve insufficiency with mild pulmonary artery hypertension. Check chemical stress test to evaluate for underlying ischemia. Finally, we will consult [facility] see this patient that is well-known to them for further recommendations with help appreciated in advance. 2. Chest Pain with an elevated initial troponin T of 20 ng/L followed by a decreasing troponin T level of 17 ng/L in the setting of previously known CAD; s/p DC with subsequent LAD stent on as needed SL NTG plus ISMO complicating #1 - Maintain current regimen and serialize troponin. 3. Chronic atrial fibrillation/flutter; on amiodarone and apixaban twice daily compounding #1 & #2 - Resume present treatment. 4. Obesity (class II); with BMI of 36.1 this admission plus SHANAE; intolerant of CPAP adding to the burden of disease outlined from #1 - #3 - Weight loss will be recommended. Normal TSH of 0.952 noted on admission. This complicates her case and may hamper recovery. 5. Essential hypertension; on amlodipine and metoprolol - Continue present therapy plus give hydralazine IV prn for systolic blood pressure > 160 mmHg. 6. Hyperlipidemia; on rosuvastatin - Resume statin and check Lipid Profile. 7. History of DVT - Noted with patient already on apixaban for #3. 8. History of RA - Noted no evidence of flare at this time. 9. History of asthma - Stable with no evidence of acute exacerbation at this time. Give nebulizers as needed. 10. Depression; on buspirone twice daily - Continue current management. 12. CHAUNCEY - Stable with hemoglobin of 12.3 g/dL and MCV of 84.7 fL present on admission. 13. Neuropathy of the Right lower extremity - Stable. 14. Chronic venous insufficiency - Noted. 15. Fibromyalgia - Stable. 16. History of vertigo; on as needed meclizine and diazepam as needed - Maintain current therapy if vertigo symptoms arise. 17. History of migraine headaches - Stable with no complaints of headache at this time. 18. History of diverticulitis - Noted with no evidence of flare at this time. 19. GERD with history of hiatal hernia and esophageal stenosis; on pantoprazole - Continue PPI. 20. OA - Give acetaminophen prn for pain or fever with listed allergy to morphine. 21. DVT prophylaxis - Patient already on apixaban for #3 which will be continued. Total time: Approximately (but not less than) 70 minutes. Charges/Coding Visit Charges OBSV E&M: [id number] Observ/hosp same date L2
--- NOTE | 2024-10-20 20:03 | ECHOD_ITS ---
Reason For Study Reason For Study: CHEST PAIN Procedure This was a 2D Doppler, Color Flow transthoracic echocardiogram. Exam performed portable in patient room. Left Ventricle Normal left ventricle. The estimated ejection fraction is 55-60 %. Right Ventricle Normal right ventricle. Normal systolic function. Atria Normal left atrium. Normal right atrium. Mitral Valve The mitral valve is structurally normal. No prolapse or stenosis seen. Tricuspid Valve Normal tricuspid valve. Aortic Valve Trisinus/trileaflet aortic valve. Pulmonic Valve The pulmonic valve is not well visualized. Great Vessels The aortic root is not well visualized. Pericardium/Pleural No pericardial effusion. MMode/2D Measurements & Calculations LVIDd: 4.0 cm IVSd: 1.00 cm LVOT diam: 2.0 cm LVIDs: 2.3 cm LVPWd: 1.0 cm LVOT area: 3.1 cm2 RVDd: 2.8 cm FS: 40.7 % asc Aorta Diam: 3.1 cm LAV(MOD-bp): 35.1 ml LVAd ap4: 20.3 cm2 LAV(MOD-bp) Indexed: 19.4 ml/m2 LVLd ap4: 7.3 cm LAV(MOD-sp2): 32.5 ml EDV(MOD-sp4): 45.9 ml LAV(MOD-sp4): 32.7 ml EDV(sp4-el): 48.0 ml LVAs ap4: 11.3 cm2 LVLs ap4: 5.9 cm ESV(MOD-sp4): 18.5 ml ESV(sp4-el): 18.2 ml EF(MOD-sp4): 59.6 % EF(sp4-el): 62.2 % LVAd ap2: 19.1 cm2 SV(MOD-sp4): 27.3 ml SV(MOD-sp2): 26.9 ml LVLd ap2: 7.2 cm SI(MOD-sp4): 15.1 ml/m2 SI(MOD-sp2): 14.8 ml/m2 EDV(MOD-sp2): 42.1 ml EDV(sp2-el): 43.1 ml LVAs ap2: 10.6 cm2 LVLs ap2: 6.2 cm ESV(MOD-sp2): 15.2 ml ESV(sp2-el): 15.2 ml EF(MOD-sp2): 63.9 % SV(sp4-el): 29.8 ml Ao sinus diam: 3.[address] Junction: 2.3 cm LA dimension(2D): 3.4 cm LA A4 area: 14.8 cm2 RA A4 area: 7.9 cm2 TAPSE: 1.9 cm Time Measurements MV dec time: 0.22 sec Doppler Measurements & Calculations MV E max jayro: 72.7 cm/sec Lat Peak E' Jayro: 12.6 cm/sec Med Peak E' Jayro: 6.8 cm/sec MV A max jayro: 51.3 cm/sec E/E' lat: 5.8 E/E' med: 10.6 MV E/A: 1.4 MV dec slope: 330.0 cm/sec2 Ao V2 max: 124.6 cm/sec LV V1 max: 71.7 cm/sec Ao max P.2 mmHg LV V1 max P.1 mmHg Ao V2 mean: 87.4 cm/sec LV V1 mean P.2 mmHg Ao mean P.3 mmHg LV V1 mean: 51.5 cm/sec Ao V2 VTI: 26.4 cm LV V1 VTI: 16.0 cm AV (velocity ratio): 0.61 GEM(I,D): 1.9 cm2 GEM(V,D): 1.8 cm2 SV(LVOT): 50.1 ml PA V2 max: 90.4 cm/sec TR max jayro: 217.7 cm/sec TR max P.0 mmHg ECHO/Echo Complete Interpretation Summary The estimated ejection fraction is 55-60 %. Normal LV systolic function In comparison to previous echo no significant change noted Ordering Physician: Raulito Sen Referring Physician: Alexi Morin Chi Performed By: Alicia Diaz RDCS
[2024-10-20] MEDS: Potassium Chloride Oral Tablet 10 MEQ PO (21:42)
[2024-10-20] MEDS: APIXABAN 2.5 MG TABLET (WCH) PO (21:43)
[2024-10-20] MEDS: 0.9% Saline Lock 10 ML Syringe IV (21:43)
--- NOTE | 2024-10-20 23:01 | EKG12_ITS ---
Test Reason : CP ADMIT Blood Pressure : */* mmHG Vent. Rate : 95 BPM Atrial Rate : * BPM P-R Int : * ms QRS Dur : 70 ms QT Int : 436 ms P-R-T Axes : * -3 -18 degrees QTcB Int : 547 ms Atrial fibrillation Possible Inferior infarct , age undetermined Prolonged QT Abnormal ECG When compared with ECG of 20-Oct-2024 15:05, MANUAL COMPARISON REQUIRED DATA IS UNCONFIRMED Confirmed by TEJAL BENNETT, AISHWARYA ([id number]), story editor CLAUDIA DIOP ([id number]) on 10/22/2024 8:10:25 AM Referred By: Raulito Sen Confirmed By: AISHWARYA TUORE MD
[2024-10-20 23:26] LABS: Troponin T High Sens 4 HR 21 ng/L (<=14)
--- OUTSIDE RECORDS SUMMARY | 2024-10-21 00:17 | XMS RPT_ITS | CCD ---
Author Organization [facility] Care Team Providers Care [place] Director Welfare Name Role Phone SHAWNALEX Unavailable Unavailable MIKELJOSHUA DEGROOT Unavailable Unavailable CRISTINO, ZAIRA NABI Unavailable Unavailable CRISTINO, ZAIRA NABI Unavailable Unavailable CRISTINO, ZAIRA NABI Unavailable Unavailable CRISTINO, ZAIRA NABI Unavailable Unavailable CRISTINO, ZAIRA NABI Unavailable Unavailable CRISTINO, ZAIRA NABI Unavailable Unavailable CRISTINO, ZAIRA NABI Unavailable Unavailable CRISTINO, ZAIRA NABI Unavailable Unavailable CRISTINO, ZAIRA NABI Unavailable Unavailable Dr. Alexi Morin Chi Primary Care Provider 1([facility])[phone] Dr. Alexi Morin Chi Referring Provider 1([facility])[phone] Edyta MOY, [place] Ember Veloz Attending Provider Davie TRANSFUSION NURSE, TRANSFUSION NURSE-C Romero Barr Attending Provider 1([facility])[phone] Dr. Gallo Castano Attending Provider 1([facility])[phone] Dr. Gallo Castano Referring Provider 1([facility])[phone] Dr. Gallo Castano Other Provider 1([facility])[phone] Josemanuel HILL, TRANSFUSION NURSE-C Ivory Attending Provider Josemanuel HILL, TRANSFUSION NURSE-C Ivory Other Provider 1([facility])[phone] Dr. Michael Stone Attending Provider 1([facility])[phone] Alexi Morin Chi Primary Care Provider 1([facility])[phone] Dr. Alexi Morin Chi Referring Provider 1([facility])[phone] Josemanuel HILL, TRANSFUSION NURSE-C Ivory Referring Provider Dr. Froilan Torres Attending Provider 1([facility])[phone] Froilan Torres Referring Provider 1([facility])[phone] Froilan Torres Other Provider Rob HILL, TRANSFUSION NURSE-C Haven Attending Provider [phone] Mikel, Dr. Alexi Cárdenas Primary Care Provider Mikel, Dr. Alexi Cárdenas Referring Provider MIKEL DR JOSHUA BENNETT Primary Care Physician Mikel, Dr. Alexi Cárdenas Primary Care Provider Mikel, Dr. Alexi Cárdenas Referring Provider Dr. Gallo Castano Attending Provider Dr. Michael Stone Attending Provider Roof TRANSFUSION NURSE, TRANSFUSION NURSE-C Romero Barr Attending Provider Mikel, Dr. Alexi Cárdenas Primary Care Provider Dr. Froilan Torres Referring Provider Dr. Froilan Torres Other Provider Dr. Gallo Castano Attending Provider Mikel, Dr. Alexi Cárdenas Referring Provider CeDr. Toy singh Attending Provider Mikel, Dr. Alexi Cárdenas Primary Care Provider Mikel, Dr. Alexi Cárdenas Referring Provider Roof TRANSFUSION NURSE, TRANSFUSION NURSE-Spenser Barr Attending Provider Dr. Toy Varghese Attending Provider Dr. [place] Emergency Provider Dr. Horace Mccormick Admit Provider Dr. Horace Mccormick Attending Provider [phone] Dr. Horace Mccormick Other Provider Dr. Melody Briceno Attending Provider Dr. Melody Briceno Other Provider Dr. Aguila Vidal Other Provider Dr. Óscar Craft Other Provider Gin, Dr. Fajardo Attending Provider Mikel, Dr. Alexi Cárdenas Primary Care Provider Mikel, Dr. Alexi Cárdenas Referring Provider Davie TRANSFUSION NURSE, TRANSFUSION NURSE-C Romero Barr Attending Provider Venancio, Dr. Cantrell Attending Provider [phone] Josemanuel TRANSFUSION NURSE, TRANSFUSION NURSE-C Ivory Attending Provider Mikel, Alexi Chi Primary Care Unavailable Ivory Abernathy Attending Unavailable Mikel, Alexi Chi Referring Unavailable Mikel, Alexi Chi Primary Care Unavailable Mikel, Alexi Chi Referring Unavailable Ember Lan Attending Unavailabl e Mikel, Alexi Chi Primary Care Unavailable Haven Rivas Attending Unavailable Mikel, Alexi Chi Referring Unavailable Mikel, Alexi Chi Primary Care Unavailable MoodGallo telles Attending Unavailable Mikel, Alexi Chi Attending Unavailable Mikel, Alexi Chi Primary Care Unavailable Mikel, Alexi Chi Primary Care Unavailable MoodGallo telles Attending Unavailable Mikel, Alexi Chi Primary Care Unavailable Chelo Torresk Referring Unavailable BrownFroilan Attending Unavailable Mikel, Alexi Chi Primary Care Unavailable Ivory Abernathy Attending Unavailable Mikel, Alexi Chi Attending Unavailable Mikel, Alexi Chi Primary Care Unavailable MoodGallo telles Attending Unavailable Mikel, Alexi Chi Primary Care Unavailable Mikel, Alexi Chi Primary Care Unavailable Brown, Froilan Referring Unavailable Brown, Froilan Consulting Unavailable BrownChelok Attending Unavailable Mikel, Alexi Chi Primary Care Unavailable Brown, Froilan Referring Unavailable Brown, Froilan Consulting Unavailable Michael Stone Attending Unavailable Mikel, Alexi Chi Primary Care Unavailable Horace Mccormick Admitting Unavailable Melody Briceno Attending Unavailable Melody Briceno Consulting Unavailable Horace Mccormick Consulting Unavailable Aguila Vidal Consulting Unavaila Scotty Tavares Attending Unavailable Venancio, Óscar Referring Unavailable Óscar Craft Consulting Unavailable Óscar Craft Attending Unavailable Horace Mccormick Attending Unavailable Romero Broderick Attending Unavailable Mikel, Alexi Chi Referring Unavailable Mikel, Alexi Chi Primary Care Unavailable Mikel, Alexi Chi Primary Care Unavailable Froilan Torres Attending Unavailable Mikel, Alexi Chi Referring Unavailable Mikel, Alexi Chi Primary Care Unavailable Romero Broderick Attending Unavailable Mikel, Alexi Chi Referring Unavailable Mikel, Alexi Chi Primary Care Unavailable Ivory Abernathy Consulting Unavailable Ivory Abernathy Referring Unavailable Michael Stone Attending Unavailable Mikel, Alexi Chi Primary Care Unavailable Romero Broderick H Referring Unavailable Romero Broderick H Attending Unavailable Gallo Castano Attending Unavailable Gallo Castano Consulting Unavailable Mikel, Alexi Chi Primary Care Unavailable Gallo Castano Referring Unavailable Eyad, Gallo Attending Unavailable Moodisparocío, Gallo Referring Unavailable Mikel, Alexi Chi Primary Care Unavailable Mikel, Alexi Chi Primary Care Unavailable Roof, Romero H Attending Unavailable Mikel, Alexi Chi Primary Care Unavailable Mikel, Alexi Chi Attending Unavailable Mikel, Alexi Chi Primary Care Unavailable Ivory Abernathy Attending Unavailable Ivory Abernathy Referring Unavailable Mikel, Alexi Chi Primary Care Unavailable Mikel, Alexi Chi Attending Unavailable Mikel, Alexi Chi Primary Care Unavailable Mikel, Alexi Chi Attending Unavailable Mikel, Alexi Chi Primary Care Unavailable Mikel, Alexi Chi Attending Unavailable Mikel, Alexi Chi Primary Care Unavailable Mikel, Alexi Chi Attending Unavailable Mikel, Alexi Chi Primary Care Unavailable Mikel, Alexi Chi Attending Unavailable Loco Dejesus Attending Unavailable Mikel, Alexi Chi Primary Care Unavailable Mikle, Alexi Chi Primary Care Unavailable Amy Hameed Attending Unavailable Mikel, Alexi Chi Primary Care Unavailable Praful Smith Attending Unavailable Mikel, Alexi Chi Primary Care Unavailable Ivory Abernathy Attending Unavailable Mikel, Alexi Chi Primary Care Unavailable Mikel, Alexi Chi Referring Unavailable Mikel, Alexi Chi Attending Unavailable Mikel, Alexi Chi Primary Care Unavailable Mikel, Alexi Chi Referring Unavailable Mikel, Alexi Chi Attending Unavailable Mikel, Alexi Chi Primary Care Unavailable Mikel, Alexi Chi Attending Unavailable Ember Lan Attending Unavailabl e Mikel, Alexi Chi Primary Care Unavailable Ember Lan Referring Unavailabl e Mikel, Alexi Chi Primary Care Unavailable Brown, Froilan Referring Unavailable BrownChelok Attending Unavailable Mikel, Alexi Chi Primary Care Unavailable Mikel, Alexi Chi Referring Unavailable Mikel, Alexi Chi Attending Unavailable Mikel, Alexi Chi Primary Care Unavailable Brown, Froilan Referring Unavailable Brown Froilan Attending Unavailable Mikel, Alexi Chi Primary Care Unavailable Horace Mccormick Admitting Unavailable Melody Briceno Consulting Unavailable Óscar Craft Attending Unavailable Horace Mccormick Consulting Unavailable Aguila Vidal Consulting Unavaila ble Mikel, Alexi Chi Primary Care Unavailable Mikel, Alexi Chi Attending Unavailable Mikel, Alexi Chi Primary Care Unavailable Gallo Castano Attending Unavailable Ember Lan Referring Unavailabl e Mikel, Alexi Chi Primary Care Unavailable Scotty Greenfield Attending Unavailable Moodispaw, Gallo Attending Unavailable Mikel, Alexi Chi Primary Care Unavailable Rachidparocío, Gallo Referring Unavailable Mikel, Alexi Chi Primary Care Unavailable Ivory Abernathy Attending Unavailable Mikel, Alexi Chi Referring Unavailable Mikel, Alexi Chi Primary Care Unavailable Mikel, Alexi Chi Referring Unavailable Moodispaw, Gallo Attending Unavailable Mikel, Alexi Chi Primary Care Unavailable Mikel, Alexi Chi Attending Unavailable Mikel, Alexi Chi Primary Care Unavailable Mikel, Alexi Chi Attending Unavailable Mikel, Alexi Chi Primary Care Unavailable Toy Varghese Attending Unavailable Mikel, Alexi Chi Referring Unavailable Mikel, Alexi Chi Primary Care Unavailable DavieRomero Attending Unavailable Mikel, Alexi Chi Referring Unavailable Venancio, Dr. Cantrell Referring Provider Mikel, Dr. Alexi Cárdenas Primary Care Provider [phone] Mikel, Dr. Alexi Cárdenas Referring Provider Mikel, Dr. Alexi Cárdenas Primary Care Provider Dr. [place] Emergency Provider [phone] Anny, Dr. Vu Admit Provider AgDr. Horace duarte Attending Provider Dr. Horace Mccormick Other Provider Janak, Dr. Oliver Attending Provider Janak, Dr. Oliver Other Provider Dr. Aguila Vidal Other Provider Dr. Óscar Craft Referring Provider Venancio, Dr. Cantrell Other Provider Friend, Dr. Fajardo Attending Provider Dr. Óscar Craft Attending Provider Mikel, Dr. Alexi Cárdenas Referring Provider Josemanuel TRANSFUSION NURSE, TRANSFUSION NURSE-C Ivory Attending Provider Dr. Bharat Desai Attending Provider Mikel, Dr. Alexi Cárdenas Primary Care Provider Josemanuel TRANSFUSION NURSE, TRANSFUSION NURSE-C Ivory Other Provider [phone] Nikki, Dr. Ramírez Attending Provider 1([facility])[phone] Mikel, Dr. Alexi Cárdenas Primary Care Provider Mikel, Dr. Alexi Cárdenas Referring Provider Josemanuel TRANSFUSION NURSE, TRANSFUSION NURSE-C Ivory Attending Provider Nikki, Dr. Ramírez Referring Provider 1([facility])-[phone] Friend, Dr. Fajardo Attending Provider 1([facility])[phone] Janak, Dr. Oliver Attending Provider 1([facility])[phone] Mikel, Dr. Alexi Cárdenas Primary Care Provider 1([facility])[phone] Mikel, Dr. Alexi Cárdenas Referring Provider 1([facility])[phone] Mikel, Dr. Alexi Cárdenas Primary Care Provider 1([facility])[phone] Mikel, Dr. Alexi Cárdenas Referring Provider 1([facility])[phone] Campos Tomlin Emergency Provider 1([facility])[phone] Venancio, Dr. Cantrell Admit Provider 1([facility])[phone] Venancio, Dr. Cantrell Attending Provider 1([facility])[phone] [facility], Dr. Cantrell Other Provider 1([facility])[phone] Halima, Dr. Toy Guillen Attending Provider 1([facility])[phone] Venancio, Dr. Cantrell Referring Provider 1([facility])[phone] Dr. Leroy White Attending Provider 1([facility])[phone] Dr. Leroy White Other Provider 1([facility])[phone] Mikel, Dr. Alexi Cárdenas Primary Care Provider 1([facility])[phone] Mikel, Dr. Alexi Cárdenas Referring Provider FriendDr. Fajardo Attending Provider 1([facility])[phone] Friend, Dr. Fajardo Other Provider 1([facility])-[phone] Mikel, Dr. Alexi Cárdenas Primary Care Provider 1([facility])[phone] Mikel, Dr. Alexi Cárdenas Referring Provider 1([facility])[phone] FriendDr. Fajardo Attending Provider 1([facility])[phone] Janak, Dr. Oliver Attending Provider 1([facility])[phone] FriendDr. Fajardo Other Provider FARZANEH Duque Attending Provider Mikel, Dr. Alexi Cárdenas Primary Care Provider Mikel, Dr. Alexi Cárdenas Referring Provider Friend, Dr. Fajardo Attending Provider Mikel, Dr. Alexi Cárdenas Primary Care Provider Mikel, Dr. Alexi Cárdenas Referring Provider Mikel, Alexi Cárdenas Primary Care Provider Mikel, Dr. Alexi Cárdenas Primary Care Provider Mikel, Dr. Alexi Cárdenas Referring Provider Janak, Dr. Oliver Attending Provider FARZANEH Duque Referring Provider Mikel, Dr. Alexi Cárdenas Primary Care Provider Mikel, Dr. Alexi Cárdenas Referring Provider FARZANEH Duque Attending Provider Janak, Dr. Oliver Attending Provider FARZANEH Duque Referring Provider Mikel, Dr. Alexi Cárdenas Primary Care Provider Mikel, Dr. Alexi Cárdenas Referring Provider FARZANEH Duque Attending Provider Mikel, Alexi Cárdenas Primary Care Provider Mikel BENNETT, Dr. Alexi Cárdenas Primary Care Provider [phone] Dr. Campos Tomlin DO Attending Provider Dr. Campos Tomlin DO Emergency Provider Sebastien DPRoselia, Dr. Cronin Attending Provider Sebastien AGUILERA, Dr. Cronin Referring Provider Bessy BENNETT, Dr. Nikolai Xiong Attending Provider Mikel BENNETT, Dr. Alexi Cárdenas Attending Provider Dr. Alexi Morin MD, Chi Referring Provider Mikel BENNETT, Dr. Alexi Cárdenas Primary Care Provider Janak BENNETT, Dr. Oliver Attending Provider Roof TRANSFUSION NURSE-C, Romero Barr Attending Provider Roof TRANSFUSION NURSE-C, Romero Barr Referring Provider Moi Griggs Attending Provider [phone] Rohit Sweeney DO Emergency Provider [phone] Sen DO, Dr. Cabezas Admit Provider Unavail able Dr. Raulito Sen DO Attending Provider Unav ailable Sen DO, Dr. Cabezas Referring Provider Unav ailable Allergies Allergy Classification Reported Allergen(s) Allergy Type Date of Onset Reaction(s) Facility (4 sources) Acetaminophen; Translations: [ACETAMINOPHEN] Drug Allergy 01-13-20 15 Other: See Comments [facility] Repository (4 sources) Acetaminophen / HYDROcodone; Translations: [HYDROCODONE-ACETA MINOPHEN] Drug Allergy 02-04-20 05 GI Upset [facility] Repository (4 sources) Adhesive Tape; Translations: [ADHESIVE TAPE (ROSINS)] Propensity to adverse reactions (disorder) 01-19-20 06 Other: See Comments [facility] Repository (20 sources) Bee pollen; Translations: [BEE POLLEN] Drug Allergy 02-04-20 05 Other: See Comments [facility] Repository (20 sources) Latex; Translations: [LATEX] Propensity to adverse reactions to drug (disorder) 11-04-19 09 Rash [facility] Repository (20 sources) Morphine; Translations: [MORPHINE] Drug Allergy 04-01-20 13 Mental Status Change [facility] Repository Comment on above: hallucinations (20 sources) Penicillins; Translations: [PENICILLINS] Propensity to adverse reactions to drug (disorder) 02-04-20 05 Rash [facility] Repository (20 sources) HYDROcodone; Translations: [hydrocodone bitartrate] Drug Allergy 07-08-19 22 Abd cramps/diarrhe a [facility] Repository (20 sources) ranolazine Drug Allergy 02-17-20 23 Dizzy and Lightheaded [facility] Medications Current Medications Medication Drug Class(es) Dates Sig (Normalized) Sig (Original) albuterol-budesonide HFA (AIRSUPRA) 90-80 mcg/actuation inhaler (2 sources) albuterol-budeso ni de HFA (AIRSUPRA) 90-80 mcg/actuation inhaler Take 2 Puffs by mouth every 4 hours as needed for wheezing/shortness of breath. Do not take more than 12 inhalations in a 24 hour period. Active amiodarone hydrochloride 200 mg oral tablet (17 sources) Antiarrhythmic Start: 10-20-2024 take 1 tablet by mouth once daily Amiodarone 200 mg tablet Active 200 mg PO daily October 20, 2024 12:00am Start: 05-03-2023 End: 01-03-2024 take 1 tablet by mouth once daily Amiodarone 200 mg tablet Discontinued 200 mg PO DAILY May 03, 2023 1:00am January 03, 2024 3:29pm amLODIPine 5 mg oral tablet (20 sources) Dihydropyridine Calcium Channel Shanel Start: 10-20-2024 take 1 tablet by mouth once daily Amlodipine 5 mg tablet Active 5 mg PO daily October 20, 2024 12:00am Start: 05-03-2023 End: 01-03-2024 take 1 tablet by mouth once daily Amlodipine 2.5 mg tablet Discontinued 2.5 mg PO DAILY 3 October 01, 2023 8:29am January 03, 2024 3:28pm Start: 11-22-2022 End: 01-04-2023 take 1 tablet by mouth once daily Amlodipine 2.5 mg tablet Discontinued 2.5 mg PO DAILY November 22, 2022 12:00am January 04, 2023 2:09pm BLOOD PRESSURE Start: 07-21-2022 End: 10-18-2022 take 1 tablet by mouth once daily Amlodipine 5 mg tablet Discontinued 5 mg PO DAILY July 21, 2022 9:20am October 18, 2022 12:31pm blood pressure Start: 09-15-2021 End: 07-21-2022 take 1 tablet by mouth once daily Amlodipine 2.5 mg tablet Discontinued 2.5 mg PO DAILY 3 September 20, 2021 7:58am December 01, 2021 9:50am Start: 08-08-2021 End: 08-31-2021 take 1 tablet by mouth once daily Amlodipine 2.5 mg tablet Discontinued 2.5 mg PO DAILY August 11, 2021 12:00am August 31, 2021 10:53am take 5 mg by mouth once daily am LODIPine (NORVASC) 10 mg tablet Take 5 mg by mouth once daily. Active Comment on above: Take 5 mg by mouth o nce daily. apixaban 2.5 mg oral tablet (20 sources) Factor Xa Inhibitor Start: 01-14-2024 take 1 tablet by mouth twice daily Apixaban (Eliquis) 2.5 mg tablet Active 2.5 mg PO TWICE A DAY 60 January 14, 2024 12:00am Start: 03-03-2021 End: 01-14-2024 take 1 tablet by mouth twice daily Apixaban (Eliquis) 5 mg tablet Discontinued 5 mg PO TWICE A DAY 180 March 20, 2022 11:25am January 14, 2024 4:08pm BLOOD THINNER Comment on above: Take 5 mg by mouth t wo times a day. busPIRone hydrochloride 7.5 mg oral tablet (20 sources) Start: 11-01-2023 take 1 tablet by mouth twice daily Buspirone 7.5 mg tablet Active 7.5 mg PO TWICE A DAY November 01, 2023 12:00am Start: 12-05-2020 End: 06-29-2021 take 1 tablet by mouth twice daily Buspirone 5 mg Tablet Discontinued 5 mg PO TWICE A DAY 60 0 December 05, 2020 12:00am June 29, 2021 3:11pm diazePAM 2 mg oral tablet (20 sources) Benzodiazepine Start: 11-23-2022 take 1 tablet by mouth three to four times daily as needed for dizziness Diazepam (Valium) 2 mg tablet Active 2 mg PO DIRECTED as needed for dizziness or vertigo 20 0 November 23, 2022 12:00am 1 3-4 times a day for dizziness Start: 12-10-2018 End: 12-19-2018 take 1 tablet by mouth four times daily as needed for muscle spasms Diazepam 5 MG tablet Discontinued 5 mg PO 4 TIMES DAILY NEEDED as needed for Spasms 30 0 December 10, 2018 1:29pm December 19, 2018 8:29pm 30 tabs (thirty) take 1 tablet by heather th every six hours as needed diazePAM (VALIUM) 2 mg tablet Take 2 mg by mouth every 6 hours as needed. Active Comment on above: Take 2 mg by mouth e very 6 hours as needed. ergocalciferol 1.25 mg oral capsule (3 sources) Provitamin D2 Compound Start: take 1 capsule by mouth every week, then take 1 capsule by mouth every month VITAMIN D 50,000 unit capsule Take one capsule by mouth per week for 8 weeks then one capsule monthly thereafter 0 11/20/2017 Active Comment on above: Take one capsule by mouth per week for 8 weeks then one capsule monthly thereafter Eqmpnrszino-Hmssrtwjr-F ilanter (20 sources) Anticholinergic, Corticosteroid, beta2-Adrenergic Agonist Start: Fluticasone-Umecli din-Vilanter (Trelegy Ellipta) 100-62.5-25 mcg blister with device Active 1 INH INHALATION DAILY August 31, 2021 10:53am Start: 08-31-2021 End: 12-01-2021 Sagulosoglv-Xovwqiikt-Vdvdop er (Trelegy Ellipta) 100-62.5-25 mcg blister with device Discontinued 1 NMA INHALATION DAILY August 31, 2021 12:00am December 01, 2021 9:50am Start: 08-31-2021 End: 12-01-2021 Ksnoscrnhwt-Fcdztwavw-Smbtuj er (Trelegy Ellipta) 100-62.5-25 mcg blister with device Discontinued 1 INH INHALATION DAILY August 30, 2021 11:00pm December 01, 2021 8:50am Start: 08-31-2021 End: 12-01-2021 Vkuglxrwfca-Avbcwsnun-Rcrjdr er (Trelegy Ellipta) 100-62.5-25 mcg blister with device Discontinued 1 INH INHALATION DAILY August 31, 2021 12:00am December 01, 2021 9:50am Start: 08-31-2021 Fluticasone-Um eclidin-Vilanter (Trelegy Ellipta) 100-62.5-25 mcg blister with device Active 1 INH INHALATION DAILY May 11th, 2022 12:00am 24 hr isosorbide mononitrate 60 mg extended release oral tablet (20 sources) Nitrate Vasodilator Start: 01-04-2023 take 1 tablet by mouth once daily, then take 1 tablet by mouth every twenty-four hours Isosorbide Mononitrate 60 mg tablet extended release 24 hr Active 60 mg PO DAILY 90 January 04, 2023 12:00am Start: 11-28-2022 End: 01-04-2023 take 1 tablet by mouth once daily, then take 1 tablet by mouth every twenty-four hours Isosorbide Mononitrate 120 mg tablet extended release 24 hr Discontinued 120 mg PO DAILY 90 November 28, 2022 12:00am January 04, 2023 2:10pm this is a dose increase Start: 08-11-2021 End: 11-28-2022 take 1 tablet by mouth once daily, then take 1 tablet by mouth every twenty-four hours Isosorbide Mononitrate 60 mg tablet extended release 24 hr Discontinued 60 mg PO DAILY 90 August 21, 2022 8:28am November 28, 2022 3:39pm HEART Start: 06-29-2021 End: 08-11-2021 take 1 tablet by mouth once daily, then take 1 tablet by mouth every twenty-four hours Isosorbide Mononitrate 30 mg tablet extended release 24 hr Discontinued 30 mg PO DAILY 22 03June 29, 2021 1:00am August 11, 2021 9:31am meclizine hydrochloride 25 mg oral tablet (9 sources) Antiemetic Start: 11-01-2023 take 1 tablet by mouth once daily as needed for dizziness Meclizine 25 mg tablet Active 25 mg PO DAILY as needed for dizziness November 01, 2023 12:00am take 1 tablet by mouth three gatito es daily meclizine (ANTIVERT) 25 mg tab Take 25 mg by mouth three times a day. Active Comment on above: Take 25 mg by mouth three times a day. 24 hr metoprolol succinate 100 mg extended release oral tablet (20 sources) beta-Adrenergic Shanel Start: 10-20-2024 take 4 tablets by mouth once daily Metoprolol Succinate 100 mg tablet extended release 24 hr Active 25 mg PO daily October 20, 2024 2:01pm Start: 01-03-2024 End: 10-20-2024 take 1 tablet by mouth once daily Metoprolol Succinate 100 mg tablet extended release 24 hr Discontinued 100 mg PO daily 30 3 January 03, 2024 12:00am October 20, 2024 2:07pm Start: 06-02-2022 End: 01-03-2024 take 1 tablet by mouth every twenty-four hours at bedtime Metoprolol Succinate 25 mg tablet extended release 24 hr Discontinued 25 mg PO AT BEDTIME 90 3 October 01, 2023 8:08am January 03, 2024 3:38pm Start: 11-20-2021 Metoprolol Suc cinate ER 25 mg oral TABLET extended release 0 Refill(s) Start Date: 11/20/21 Status: Ordered Start: 06-29-2021 End: 08-14-2022 take 1 tablet by mouth twice daily Metoprolol Succinate 25 mg tablet extended release 24 hr Discontinued 25 mg PO TWICE A DAY 180 4 May 01, 2022 5:12pm June 02, 2022 3:42pm Start: 06-01-2021 End: 06-29-2021 Metoprolol Succinate 25 mg t ablet extended release 24 hr Discontinued 50 mg PO DAILY June 01, 2021 3:22pm June 29, 2021 3:13pm Start: 06-01-2021 End: 06-29-2021 take 50 mg by mouth once daily Metoprolol Succinate Di scontinued 50 MG PO DAILY June 01, 2021 3:22pm June 29, 2021 3:13pm Start: 06-01-2021 End: 06-01-2021 take 1 tablet by mouth once daily Metoprolol Succinate 25 mg tablet extended release 24 hr Discontinued 25 mg PO DAILY June 01, 2021 1:00am June 01, 2021 3:22pm Start: 03-03-2021 End: 05-10-2021 take 1 tablet by mouth twice daily Metoprolol Succinate 25 mg tablet extended release 24 hr Discontinued 25 mg PO TWICE A DAY March 03, 2021 12:32pm May 10, 2021 11:44am BP Start: 03-02-2021 End: 03-03-2021 Metoprolol Succinate 25 mg t ablet extended release 24 hr Discontinued 50 mg PO DAILY 90 3 March 02, 2021 12:49pm March 03, 2021 12:32pm BP Start: 03-02-2021 End: 03-03-2021 take 50 mg by mouth once daily Metoprolol Succinate Di scontinued 50 MG PO DAILY March 02, 2021 12:49pm March 03, 2021 12:32pm Start: 11-19-2020 End: 03-02-2021 take 1 tablet by mouth once daily Metoprolol Succinate 25 mg tablet extended release 24 hr Discontinued 25 mg PO DAILY 30 December 05, 2020 10:16am December 15, 2020 1:38pm BP Comment on above: Take 25 mg by mouth once daily. naproxen sodium 220 mg oral tablet (3 sources) Nonsteroidal Anti-inflammatory Drug Start: 11-04-19 09 naproxen sodium(ALEVE 220 MG TAB) 2 tabs q 4-6 hrs prn pain 0 11/03/2008 Active Comment on above: 2 tabs q 4-6 hrs prn pain nitroglycerin 0.4 mg sublingual tablet (20 sources) Nitrate Vasodilator Start: 11-20-19 End: 12-06-19 Nitroglycerin 0.4 mg Tablet, Sublingual Active 0.4 mg SL Q5M as needed for Cardiac/Chest Pain 1 December 05, 2020 10:16am Comment on above: Dissolve 0.4 mg unde r the tongue every 5 minutes as needed for chest pain. pantoprazole 40 mg delayed release oral tablet (20 sources) Proton Pump Inhibitor Start: 01-22-20 24 take 1 tablet by mouth once daily Pantoprazole 40 mg tablet,delayed release (DR/EC) Active 40 mg PO DAILY 30 January 22, 2024 6:58am Start: 11-08-2023 End: 01-22-2024 take 1 tablet by mouth twice daily Pantoprazole 40 mg tablet,delayed release (DR/EC) Discontinued 40 mg PO TWICE A DAY 60 30 November 08, 2023 2:20pm January 22, 2024 6:59am Start: 11-22-2022 End: 11-08-2023 take 1 tablet by mouth once daily Pantoprazole 40 mg tablet,delayed release (DR/EC) Discontinued 40 mg PO DAILY 30 30 September 11, 2023 10:28am November 08, 2023 2:27pm Start: 10-26-2022 End: 11-22-2022 Pantoprazole (Protonix) 40 m g tablet,delayed release (DR/EC) Discontinued 40 mg PO TWICE A DAY 120 1 October 26, 2022 1:50pm November 22, 2022 4:47pm take two times a day for eight weeks then return to daily Start: 07-06-2022 End: 10-26-2022 take 1 tablet by mouth once daily Pantoprazole (Protonix) 40 mg tablet,delayed release (DR/EC) Discontinued 40 mg PO DAILY 90 3 July 06, 2022 11:53am October 26, 2022 1:51pm Start: 03-25-2022 End: 07-06-2022 Pantoprazole (Protonix) 40 m g tablet,delayed release (DR/EC) Discontinued 40 mg PO TWICE A DAY 60 March 25, 2022 1:00am July 06, 2022 11:54am advised TWICE DAILY FOR 8 WEEKS THEN ONCE DAILY Comment on above: Take 40 mg by mouth once daily. potassium chloride 10 meq extended release oral capsule (20 sources) Start: 10-20-2024 take 1 capsule by mouth twice daily Potassium Chloride 10 mEq capsule, extended release Active 10 meq PO TWICE A DAY October 20, 2024 12:00am Start: 01-03-2024 End: 02-19-2024 take 1 tablet by mouth once daily Potassium Chloride 20 mEq tablet extended release Discontinued 20 meq PO daily 30 January 03, 2024 12:00am February 19, 2024 1:08pm Start: 07-06-2022 End: 01-03-2024 take 1 tablet by mouth once daily Potassium Chloride 10 mEq tablet extended release Discontinued 10 meq PO DAILY July 06, 2022 12:00am January 03, 2024 3:41pm SUPPLEMENT Start: 07-06-2022 take 10 mEq by mouth twice daily Potassium Chloride Active 10 MEQ PO TWICE A DAY July 06, 2022 12:00am Start: 06-29-2021 End: 03-03-2022 take 1 tablet by mouth twice daily Potassium Chloride 10 mEq tablet extended release Discontinued 10 meq PO TWICE A DAY 180 September 14, 2021 12:07pm March 03, 2022 12:58pm Start: 03-22-2021 End: 05-10-2021 take 20 mEq by mouth once daily Potassium Chloride Dis continued 20 MEQ PO DAILY 60 March 22, 2021 2:23pm May 10, 2021 11:44am Start: 03-07-2021 End: 05-10-2021 take 2 tablets by mouth once daily Potassium Chloride 10 mEq tablet extended release Discontinued 20 meq PO DAILY 60 12 March 22, 2021 2:23pm May 10, 2021 11:44am pregabalin 75 mg oral capsule (3 sources) take 1 capsule by mouth twice daily pregabalin (LYRICA) 75 mg capsule Indications: Pharyngoesophageal dysphagia , Gastroesophageal reflux disease, esophagitis presence not specified Take 75 mg by mouth twice daily. Active Comment on above: Take 75 mg by mouth twice daily. rosuvastatin calcium 40 mg oral tablet (9 sources) HMG-CoA Reductase Inhibitor Start: 12-27-19 take 1 tablet by mouth once daily Rosuvastatin 40 mg tablet Active 40 mg PO daily December 27, 2023 12:00am take 40 mg by mouth once daily r osuvastatin 40 mg cpSP Take 40 mg by mouth once daily. Active Comment on above: Take 40 mg by mouth once daily. vitamins A,C,[id number] (6 sources) Start: 11-15-2023 vitamins A,C,N-xzjn-[id number] Active 1 NMA PO TWICE A DAY November 15, 2023 12:00am [facility] Start: 11-15-2023 vitamins A,C,E -zinc-copper Active 1 NMA PO TWICE A DAY November 15, 2023 12:00am Completed/Discontinued Medications Medication Drug Class(es) Dates Sig (Normalized) Sig (Original) acetaminophen 325 mg oral tablet (20 sources) Start: 11-19-2020 End: 08-31-2021 take 2 tablets by mouth every four hours as needed for pain Acetaminophen (Tylenol) 325 mg Tablet Discontinued 650 mg PO EVERY 4 HOURS NEEDED as needed for Fever, pain 1 0 November 19, 2020 12:00am August 31, 2021 10:53am Start: 05-13-2020 End: 11-19-2020 Acetaminophen 500 MG tablet Discontinued 1000 mg PO EVERY 8 HOURS 100 0 May 13, 2020 1:00am November 19, 2020 12:21pm Do not take more than 3000 mg Tylenol in a 24-hour period. Start: 05-13-2020 End: 11-19-2020 take 3000 mg by mouth every eight hours Acetaminophen Discontinued 1000 MG PO EVERY 8 HOURS 100 May 13, 2020 1:00am November 19, 2020 12:21pm Do not take more than 3000 mg Tylenol in a 24-hour period. Start: 12-19-2018 End: 01-17-2019 take 2 tablets by mouth every six hours as needed for pain Acetaminophen 500 MG tablet Discontinued 1000 mg PO EVERY 6 HOURS NEEDED as needed for Mild Pain (1-3/10) 0 December 19, 2018 12:00am January 17, 2019 12:31pm Start: 12-19-2018 End: 01-17-2019 take 1000 mg by mouth every six hours as needed Acetaminophen Discontinued 1000 MG PO EVERY 6 HOURS NEEDED December 19, 2018 12:00am January 17, 2019 12:31pm Start: 12-10-2018 End: 12-19-2018 take 1 tablet by mouth every four hours as needed for pain Acetaminophen 500 MG tablet Discontinued 500 mg PO EVERY 4 HOURS NEEDED as needed for Pain December 10, 2018 3:14pm December 19, 2018 8:29pm acetaminophen 325 mg / oxyCODONE hydrochloride 5 mg oral tablet (20 sources) Opioid Agonist Start: 11-06-2018 End: 11-09-2018 Oxycodone-Acetaminophen 1 TABLET tablet Discontinued 1 {tbl} PO EVERY 6 HOURS NEEDED as needed for Pain 12 3 0 November 06, 2018 November 08, 2018 12:00am November 09, 2018 12:10am Contusion of face Contusion of other part of head, initial encounter Start: 11-06-2018 End: 11-09-2018 take 1 tablet by mouth every six hours as needed Oxycodone-Acetaminophen Discontinued 1 TABLET PO EVERY 6 HOURS NEEDED 12 3 November 06, 2018 November 09, 2018 12:10am [id number] 200 actuat albuterol 0.09 mg/actuat metered dose inhaler (20 sources) beta2-Adrenergic Agonist Start: 06-29-2021 End: 08-31-2021 take 1 puff(s) by inhalation once Albuterol Sulfate Discontinued 1 PUFF INHALATION ONCE June 29, 2021 3:10pm August 31, 2021 10:53am Start: 06-29-2021 take 1 puff(s) by inhalation o nce Albuterol Sulfate Active 1 PUFF INHALATION ONCE June 29, 2021 3:10pm Start: 05-10-2021 End: 06-29-2021 take 1 puff(s) by inhalation once Albuterol Sulfate Di scontinued 1 PUFF INHALATION ONCE May 10, 2021 11:43am June 29, 2021 3:13pm Start: 05-10-2021 End: 08-31-2021 Albuterol Sulfate 90 mcg/act uation HFA aerosol inhaler Discontinued 1 NMA INHALATION ONCE as needed for Shortness Of Breath June 29, 2021 3:10pm August 31, 2021 10:53am Start: 05-10-2021 End: 08-31-2021 take 1 puff(s) by inhalation once Albuterol Sulfate Di scontinued 1 PUFF INHALATION ONCE June 29, 2021 3:10pm August 31, 2021 10:53am albuterol-budesonide HFA (AIRSUPRA) 90-80 mcg/actuation inhaler (1 [...] 12 inhalations in a 24 hour period. ascorbic acid 500 mg oral tablet (20 sources) Vitamin C Start : 11-22 End: 01-04 take 1 tablet by mouth once daily in the evening Ascorbic Acid (Vitamin C) (Vitamin C) 500 mg tablet Discontinued 500 mg PO EVERY EVENING November 22, 2022 12:00am January 04, 2023 1:35pm SUPPLEMENT aspirin 81 mg delayed release oral tablet (20 sources) Platelet Aggregation Inhibitor, Nonsteroidal Anti-inflammatory Drug Start : 07-18 End: 08-11 Aspirin (Adult Low Dose Aspirin) 81 mg tablet,delayed release (DR/EC) Discontinued 81 mg PO DAILY July 18, 2021 12:00am August 11, 2021 8:41am Start: 05-10-2021 End: 05-31-2021 Aspirin (Adult Low Dose Aspi rin) 81 mg tablet,delayed release (DR/EC) Discontinued 81 mg PO DAILY May 10, 2021 1:00am May 31, 2021 3:22pm Start: 05-13-2020 End: 03-22-2021 take 1 tablet by mouth at breakfast Aspirin 81 mg tablet,chewable Discontinued 81 mg PO WITH BREAKFAST November 19, 2020 5:47pm March 22, 2021 2:22pm [facility] Start: 11-14-2017 End: 12-10-2018 take 1 tablet by mouth once daily Aspirin (Adult Aspirin Regimen) 81 mg tablet,delayed release (DR/EC) Discontinued 81 mg PO daily November 14, 2017 12:00am December 10, 2018 1:26pm [facility] Aspirin 81 mg Ta b Take 81 mg by mouth. Active Comment on above: Take 81 mg by mouth. atorvastatin 40 mg oral tablet (20 sources) HMG-CoA Reductase Inhibitor Start: 11-20-19 End: 01-17-20 take 1 tablet by mouth at bedtime Atorvastatin 40 mg tablet Discontinued 40 mg PO AT BEDTIME 90 3 September 14, 2021 12:05pm January 16, 2022 8:33am Cholestrol calcium ascorbate 500 mg oral tablet (6 sources) Start: 12-27-19 End: 10-21-19 take 1 tablet by mouth once daily Ascorbate Calcium (Vitamin C) 500 mg tablet Discontinued 500 mg PO daily December 27, 2023 12:00am October 20, 2024 3:57pm cholecalciferol 0.025 mg oral tablet (20 sources) Vitamin D Start: 02-29-20 End: 02-29-20 take 1 tablet by mouth once daily Cholecalciferol (Vitamin D3) 25 mcg (1,000 unit) tablet Discontinued 50 ug PO DAILY February 28, 2022 11:42am February 28, 2022 11:57am SUPPLEMENT Start: 04-29-2020 End: 02-28-2022 take 1 tablet by mouth once daily Cholecalciferol (Vitamin D3) 25 mcg (1,000 unit) tablet Active 25 ug PO DAILY February 28, 2022 11:57am SUPPLEMENT Start: 04-29-2020 End: 02-28-2022 Cholecalciferol (Vitamin D3) 1,000 UNIT tablet Discontinued 25 ug PO DAILY April 29, 2020 1:00am February 28, 2022 11:43am SUPPLEMENT Start: 11-27-2018 End: 01-17-2019 take 1 capsule by mouth once daily Cholecalciferol (Vitamin D3) 1,000 unit capsule Discontinued 1000 U PO DAILY November 27, 2018 12:00am January 17, 2019 12:31pm supplement cholestyramine resin 4000 mg powder for oral suspension (17 sources) Bile Acid Sequestrant Start: 02-28-2023 End: 03-30-2023 take 1 dose by mouth once daily Cholestyramine (With Sugar) 4 gram powder in packet Discontinued 4 g PO DAILY 60 30 0 February 28, 2023 1:00am March 29, 2023 1:00am March 30, 2023 1:05am administer w/meal; avoid other meds within 1hr before or 4-6hr after dose ciprofloxacin 500 mg oral tablet (15 sources) Quinolone Antimicrobial Start: 04-23-2024 End: 08-21-2024 take 1 tablet by mouth twice daily Ciprofloxacin Hcl 500 mg tablet Discontinued 500 mg PO TWICE A DAY 6 0 April 23, 2024 1:00am August 21, 2024 1:07pm Start: 01-18-2024 End: 02-19-2024 take 1 tablet by mouth twice daily Ciprofloxacin Hcl 500 mg tablet Discontinued 500 mg PO TWICE A DAY 10 0 January 18, 2024 12:00am February 19, 2024 1:05pm Start: 02-28-2022 take 250 mg by mouth twice daily Ciprofloxacin Hcl Active 250 MG PO TWICE A DAY February 28, 2022 12:00am citalopram 10 mg oral tablet (20 sources) Serotonin Reuptake Inhibitor Start: 11-25-2020 End: 01-19-2022 take 1 tablet by mouth once daily Citalopram 10 mg Tablet Discontinued 10 mg PO DAILY 30 0 December 05, 2020 10:16am March 22, 2021 2:22pm 50 ml clindamycin 12 mg/ml injection (20 sources) Lincosamide Antibacterial Start: 12-10-2018 End: 12-19-2018 Clindamycin In 0.9 % Sod Chlor 600 MG/50 ML piggyback Discontinued 600 mg IV .Q8 HOURS December 10, 2018 3:15pm December 19, 2018 8:31pm antibiotic clopidogrel 75 mg oral tablet (20 sources) [id number] Platelet Inhibitor Start: 07-22-2021 End: 11-22-2022 take 1 tablet by mouth once daily Clopidogrel (Plavix) 75 mg tablet Discontinued 75 mg PO DAILY September 14, 2021 12:06pm November 22, 2022 4:43pm Start: 06-29-2021 End: 06-29-2021 take 1 tablet by mouth once daily Clopidogrel 75 mg tablet Discontinued 75 mg PO DAILY June 29, 2021 1:00am June 29, 2021 3:46pm Start: 03-23-2021 End: 05-10-2021 take 1 tablet by mouth once daily Clopidogrel 75 mg tablet Discontinued 75 mg PO .COMPLEX 30 March 23, 2021 6:44pm May 10, 2021 11:43am 75 mg PO take 4 tabs by mouth on day 1 and then take 1 tab by mouth daily; Cranberry Extract (6 sources) Non-Standardized Food Allergenic Extract, Non-Standardized Plant Allergenic Extract Start: 11-15-2023 End: 10-20-2024 take 1 capsule by mouth once daily Cranberry Extract 500 mg capsule Discontinued 500 mg PO DAILY November 15, 2023 12:00am October 20, 2024 3:58pm administer with a meal Start: 11-15-2023 take 1 capsule by mo [facility] once daily Cranberry Extract 500 mg capsule Active 500 mg PO DAILY November 15, 2023 12:00am administer with a meal dexlansoprazole 60 mg delayed release oral capsule (20 sources) Proton Pump Inhibitor Start: 11-27-2018 End: 12-19-2018 take 1 capsule by mouth once daily Dexlansoprazole (Dexilant) 60 mg capsule,biphase delayed releas Discontinued 60 mg PO DAILY November 27, 2018 12:00am December 19, 2018 8:31pm stomach digoxin 0.25 mg oral tablet (6 sources) Cardiac Glycoside Start: 01-03-2024 End: 08-21-2024 take 1 tablet by mouth once daily Digoxin 250 mcg (0.25 mg) tablet Discontinued 250 ug PO daily 20 07January 03, 2024 12:00am August 21, 2024 4:36pm 24 hr dilTIAZem hydrochloride 120 mg extended release oral capsule (4 sources) Calcium Channel Shanel Start: 08-21-2024 End: 10-20-2024 take 1 capsule by mouth once daily, then take 1 capsule by mouth every twenty-four hours Diltiazem Hcl (Cardizem Cd) 120 mg capsule,extended release 24hr Discontinued 120 mg PO daily 90 3 August 21, 2024 12:00am October 20, 2024 2:04pm docusate sodium 100 mg oral capsule (20 sources) Start: 12-10-2018 End: 12-19-2018 take 1 capsule by mouth twice daily Docusate Sodium 100 MG capsule Discontinued 100 mg PO TWICE A DAY December 10, 2018 3:14pm December 19, 2018 8:31pm stool softener docusate sodium 50 mg / sennosides, long term 8.6 mg oral tablet (20 sources) Start: 03-25-2022 End: 11-22-2022 Sennosides-Docusate Sodium (Stool Softener-Stimulant Laxat) 8.6-50 mg Tablet Discontinued 2 {tbl} PO TWICE DAILY NEEDED as needed for Constipation 0 March 25, 2022 1:00am November 22, 2022 4:43pm OTC Start: 05-13-2020 End: 12-05-2020 Sennosides-Docusate Sodium 1 TABLET tablet Discontinued 2 {tbl} PO TWICE A DAY November 19, 2020 5:47pm December 05, 2020 10:12am Constipation Take until first bowel movement, then as needed Start: 05-13-2020 End: 12-05-2020 Sennosides-Docusate Sodium D iscontinued 2 TABLET PO TWICE A DAY November 19, 2020 5:47pm December 05, 2020 10:12am Take until first bowel movement, then as needed doxycycline monohydrate 100 mg oral capsule (20 sources) Tetracycline-class Drug Start: 05-13-2020 End: 09-09-2020 take 1 capsule by mouth twice daily Doxycycline Monohydrate 100 MG capsule Discontinued 100 mg PO TWICE A DAY 12 0 May 13, 2020 1:00am September 09, 2020 1:38pm Continue 1 week postoperatively while following cultures Start: 11-27-2018 End: 12-10-2018 take 1 capsule by mouth twice daily Doxycycline Hyclate 100 mg capsule Discontinued 100 mg PO TWICE A DAY 30 1 November 27, 2018 12:00am December 10, 2018 1:26pm esomeprazole 40 mg delayed release oral capsule (20 sources) Proton Pump Inhibitor Start: 03-09-2016 End: 01-17-2019 take 1 capsule by mouth twice daily Esomeprazole Magnesium 40 MG capsule Discontinued 40 mg PO TWICE A DAY March 09, 2016 1:00am January 17, 2019 12:31pm gerd take 1 capsule by [facility] once daily, then take 6 capsules by mouth in the morning esomeprazole (NEXIUM) 20 mg capsule Indications: Pharyngoesophageal dysphagia , Gastroesophageal reflux disease, esophagitis presence not specified Take 20 mg by mouth DAILY (6 AM). Active Comment on above: Take 20 mg by mouth DAILY (6 AM). famotidine 20 mg oral tablet (20 sources) Histamine-2 Receptor Antagonist Start: End: take 1 tablet by mouth once daily as needed for gastroesophageal reflux disease Famotidine 20 mg tablet Discontinued 20 mg PO DAILY as needed for GERD June 29, 2021 3:11pm August 11, 2021 8:41am furosemide 40 mg oral tablet (20 sources) Loop Diuretic Start: End: take 1 tablet by mouth once daily Furosemide (Lasix) 40 mg tablet Discontinued 40 mg PO daily 30 3 January 03, 2024 12:00am February 19, 2024 1:06pm Start: 10-09-2022 End: 11-22-2022 take 1 tablet by mouth once daily Furosemide (Lasix) 40 mg tablet Discontinued 40 mg PO DAILY 4 0 October 09, 2022 12:00am November 22, 2022 4:43pm Start: 03-03-2021 End: 05-10-2021 take 1 tablet by mouth once daily Furosemide (Lasix) 40 mg tablet Discontinued 40 mg PO DAILY 7 0 March 03, 2021 1:00am May 10, 2021 11:43am gabapentin 300 mg oral capsule (20 sources) Anti-epileptic Agent Start: 09-09-2020 End: 10-14-2020 take 1 capsule by mouth twice daily Gabapentin (Neurontin) 300 mg capsule Discontinued 300 mg PO TWICE A DAY 60 2 September 09, 2020 12:00am October 14, 2020 3:24pm Start: 02-07-2016 End: 11-27-2018 take 1 capsule by mouth at bedtime Gabapentin 300 MG capsule Discontinued 300 mg PO AT BEDTIME February 07, 2016 12:00am November 27, 2018 10:57am neuropathy ble lidocaine 0.05 mg/mg medicated patch (20 sources) Antiarrhythmic, Amide Local Anesthetic Start: 12-05-2020 End: 05-10-2021 Lidocaine 5 % Adhesive Patch,Medicated Discontinued 1 NMA TOPICAL DAILY 14 0 December 05, 2020 12:00am May 10, 2021 11:43am Please contact the information source for Protocol details. lisinopril 10 mg oral tablet (20 sources) Angiotensin Converting Enzyme Inhibitor Start: 04-08-2015 End: 12-19-2018 take 1 tablet by mouth once daily Lisinopril 10 MG tablet Discontinued 10 mg PO DAILY February 07, 2016 12:00am December 19, 2018 8:31pm blood pressure Comment on above: Take 1 tablet by heather th once daily. loperamide hydrochloride 2 mg oral capsule (20 sources) Opioid Agonist Start: 12-05-2020 End: 05-10-2021 take 1 capsule by mouth every two hours as needed for diarrhea Loperamide 2 mg Capsule Discontinued 2 mg PO EVERY 2 HOURS NEEDED as needed for Diarrhea 0 0 December 05, 2020 12:00am May 10, 2021 11:44am LORazepam 0.5 mg oral tablet (20 sources) Benzodiazepine Start: 11-25-2020 End: 12-05-2020 take 1 tablet by mouth every four hours as needed for anxiety Lorazepam (Ativan) 0.5 mg Tablet Discontinued 0.5 mg PO EVERY 4 HOURS NEEDED as needed for Anxiety November 25, 2020 12:00am December 05, 2020 10:07am losartan potassium 50 mg oral tablet (20 sources) Angiotensin 2 Receptor Shanel Start: 11-19-2020 End: 11-15-2023 take 1 tablet by mouth once daily Losartan 50 mg tablet Discontinued 50 mg PO DAILY 90 3 June 06, 2022 4:48pm November 15, 2023 1:39pm BLOO PESSURE lubiprostone 0.008 mg oral capsule (17 sources) Chloride Channel Activator Start: 02-19-2023 End: 05-03-2023 take 1 capsule by mouth twice daily Lubiprostone (Amitiza) 8 mcg capsule Discontinued 8 ug PO TWICE A DAY 60 30 2 February 19, 2023 12:00am May 03, 2023 11:39am meloxicam 7.5 mg oral tablet (20 sources) Nonsteroidal Anti-inflammatory Drug Start: 05-13-2020 End: 11-19-2020 take 1 tablet by mouth twice daily Meloxicam 7.5 MG tablet Discontinued 7.5 mg PO TWICE A DAY 60 0 May 13, 2020 1:00am November 19, 2020 5:47pm Do not take any other nonsteroidal anti-inflammatories while using meloxicam/Mobic. take 1 tablet by mouth once isaiah y meloxicam (MOBIC) 15 mg tablet Indications: Pharyngoesophageal dysphagia , Gastroesophageal reflux disease, esophagitis presence not specified Take 15 mg by mouth once daily. Active Comment on above: Take 15 mg by mouth once daily. methenamine hippurate 1000 mg oral tablet (20 sources) Start: 12-27-2023 End: 02-19-2024 Methenamine Hippurate 1 gram tablet Discontinued 1 g PO TWICE A DAY December 27, 2023 12:00am February 19, 2024 1:07pm On Hold: until finished with ciprofloxacin Start: 11-22-2022 End: 11-15-2023 Methenamine Hippurate 1 gram tablet Discontinued 1 g PO DAILY November 22, 2022 12:00am November 15, 2023 1:42pm UTI PREVENTION omeprazole 40 mg delayed release oral capsule (20 sources) Proton Pump Inhibitor Start: 02-28-2024 End: 10-20-2024 take 1 capsule by mouth twice daily Omeprazole 40 mg capsule,delayed release(DR/EC) Discontinued 40 mg PO TWICE A DAY 60 2 February 29, 2024 10:22am October 20, 2024 2:03pm Start: 12-27-2023 End: 10-20-2024 take 1 capsule by mouth once daily Omeprazole 20 mg capsule,delayed release(DR/EC) Discontinued 20 mg PO daily December 27, 2023 12:00am October 20, 2024 2:03pm take 2 capsules by m outh once daily omeprazole (PRILOSEC) 10 mg capsule Take 20 mg by mouth once daily. Active Comment on above: Take 20 mg by mouth once daily. ondansetron 4 mg oral tablet (20 sources) Serotonin-3 Receptor Antagonist Start: End: take 1 tablet by mouth every six hours as needed for nausea and vomiting Ondansetron Hcl 4 mg tablet Discontinued 4 mg PO EVERY 6 HOURS as needed for nausea and vomiting 15 0 November 23, 2022 12:00am October 20, 2024 2:03pm Start: 05-13-2020 End: 05-10-2021 take 1 tablet by mouth every eight hours as needed for nausea Ondansetron Hcl 8 MG tablet Discontinued 8 mg PO EVERY 8 HOURS NEEDED as needed for Nausea 21 0 May 13, 2020 1:00am May 10, 2021 11:44am take 1 tablet by heather th every eight hours as needed ondansetron (ZOFRAN) 4 mg tablet Take 4 mg by mouth every 8 hours as needed for nausea/vomiting. Active Comment on above: Take 4 mg by mouth e very 8 hours as needed for nausea/vomiting. oxyCODONE hydrochloride 5 mg oral tablet (20 sources) Opioid Agonist Start: 05-13-19 End: 05-18-19 take 5-10 mg by mouth every four hours as needed for pain Oxycodone 5 MG tablet Discontinued 5 - 10 mg PO EVERY 4 HOURS NEEDED as needed for Pain Score 4-10 60 5 0 May 13, 2020 2020 1:00am May 18, 2020 1:03am Presence of right artificial knee joint Start: 12-10-2018 End: 12-21-2018 take 2 tablets by mouth every four hours as needed for pain Oxycodone 5 MG tablet Discontinued 10 mg PO EVERY 4 HOURS NEEDED as needed for Severe Pain (6-10/10) 30 7 0 December 19, 2018 December 16, 2018 12:00am December 21, 2018 12:08am Other acute postprocedural pain 40 tabs (forty) Start: 12-10-2018 End: 12-21-2018 take 1 tablet by mouth every four hours as needed Oxycodone Discontinued 10 MG PO EVERY 4 HOURS NEEDED 30 7 December 19, 2018 December 21, 2018 12:08am 40 tabs (forty) predniSONE 10 mg oral tablet (20 sources) Start: 10-18-2022 End: 11-22-2022 take 1 tablet by mouth twice daily Prednisone 10 mg tablet Discontinued 10 mg PO TWICE A DAY October 18, 2022 12:00am November 22, 2022 4:43pm promethazine hydrochloride 25 mg oral tablet (20 sources) Phenothiazine Start: 12-10-2018 End: 12-19-2018 take 1 tablet by mouth every four hours as needed for nausea Promethazine 25 MG tablet Discontinued 25 mg PO EVERY 4 HOURS NEEDED as needed for NAUSEA/VOMITING 0 December 10, 2018 12:00am December 19, 2018 8:30pm 12 hr ranolazine 500 mg extended release oral tablet (20 sources) Anti-anginal Start: 11-24-2022 End: 11-28-2022 take 1 tablet by mouth every twelve hours Ranolazine 500 mg tablet extended release 12 hr Discontinued 500 mg PO Q12H 60 2 November 24, 2022 12:00am November 28, 2022 3:39pm Start: 06-02-2022 End: 06-09-2022 take 1 tablet by mouth twice daily at mealtime Ranolazine 500 mg tablet extended release 12 hr Discontinued 500 mg PO TWICE A DAY 60 June 02, 2022 1:00am June 09, 2022 2:16pm take with food Remove Patch (20 sources) Start: 12-05-2020 End: 05-10-2021 apply 1 dose topically once daily Remove Patch Discontinued 0 PATCH TOPICAL DAILY@2200 0 December 05, 2020 10:11am May 10, 2021 11:44am Start: 12-05-2020 End: 05-10-2021 apply 1 dose topically once daily Remove Patch Discontinued 0 NMA TOPICAL DAILY@2200 0 December 05, 2020 12:00am May 10, 2021 11:44am Start: 12-05-2020 End: 05-10-2021 apply 1 dose topically once daily Remove Patch Discontinued 0 PATCH TOPICAL DAILY@2200 0 December 04, 2020 11:00pm May 10, 2021 10:44am Start: 12-05-2020 End: 05-10-2021 apply 1 dose topically once daily Remove Patch Discontinued 0 PATCH TOPICAL DAILY@2200 0 December 05, 2020 12:00am May 10, 2021 11:44am 72 hr scopolamine 0.0139 mg/hr transdermal system (6 sources) Anticholinergic Start: 04-01-2024 End: 10-20-2024 Scopolamine Base 1 mg over 3 days patch 3 day Discontinued 1 NMA TD Every 3 Days as needed for stomach upset 4 1 April 01, 2024 1:00am October 20, 2024 2:05pm spironolactone 25 mg oral tablet (20 sources) Aldosterone Antagonist Start: 03-03-2022 End: 03-27-2022 Spironolactone 25 mg tablet Discontinued 12.5 mg PO DAILY 30 March 03, 2022 1:00am March 27, 2022 4:55pm Start: 03-03-2022 End: 03-27-2022 take 12.5 mg by mouth once daily Spironolactone Discontinued 12.5 MG PO DAILY March 03, 2022 1:00am March 27, 2022 4:55pm Start: 05-08-2017 End: 11-22-2022 take 1 tablet by mouth once daily Spironolactone 25 mg tablet Discontinued 25 mg PO DAILY 90 3 July 06, 2022 11:54am November 22, 2022 4:43pm sucralfate 1000 mg oral tablet (20 sources) Aluminum Complex Start: 02-06-2024 End: 10-20-2024 take 1 tablet by mouth before mealtime Sucralfate (Carafate) 1 gram tablet Discontinued 1 g PO before meals 90 0 February 29, 2024 10:23am October 20, 2024 2:03pm Start: 10-26-2022 End: 05-03-2023 take 1 tablet by mouth three times daily Sucralfate (Carafate) 1 gram tablet Discontinued 1 g PO THREE TIMES A DAY 90 30 0 February 19, 2023 12:00am March 20, 2023 1:00am March 21, 2023 1:04am Start: 11-27-2018 End: 01-17-2019 take 1 tablet by mouth twice daily Sucralfate (Carafate) 1 gram tablet Discontinued 1 g PO TWICE A DAY November 27, 2018 12:00am January 17, 2019 12:31pm stomach sulfamethoxazole 800 mg / trimethoprim 160 mg oral tablet (20 sources) Dihydrofolate Reductase Inhibitor Antibacterial, Sulfonamide Antimicrobial Start: 01-17-2019 End: 01-25-2019 Sulfamethoxazole-Trimethopri m (Bactrim Ds) 800-160 mg tablet Discontinued 1 {tbl} PO Q12H 14 7 0 January 17, 2019 12:00am January 23, 2019 12:00am January 25, 2019 12:08am Cystitis, unspecified without hematuria ticagrelor 90 mg oral tablet (20 sources) Start: 05-10-2021 End: 07-22-2021 take 1 tablet by mouth twice daily Ticagrelor (Brilinta) 90 mg tablet Discontinued 90 mg PO TWICE A DAY May 10, 2021 1:00am July 22, 2021 12:23pm Start: 11-19-2020 End: 03-23-2021 take 1 tablet by mouth twice daily Ticagrelor (Brilinta) 90 mg Tablet Discontinued 90 mg PO TWICE A DAY 60 0 December 05, 2020 10:16am December 15, 2020 1:38pm tolterodine tartrate 2 mg oral tablet (20 sources) Cholinergic Muscarinic Antagonist Start: 02-07-2016 End: 11-27-2018 take 1 tablet by mouth once daily Tolterodine 2 MG tablet Discontinued 2 mg PO DAILY February 07, 2016 12:00am November 27, 2018 10:56am bladder take 1 tablet by mouth twice brant ly tolterodine (DETROL) 2 mg tablet Indications: Pharyngoesophageal dysphagia , Gastroesophageal reflux disease, esophagitis presence not specified Take 2 mg by mouth twice daily. Active Comment on above: Take 2 mg by mouth t wice daily. traMADol hydrochloride 50 mg oral tablet (20 sources) Opioid Agonist Start: 1 End: 1 take 1 tablet by mouth every six hours as needed for pain Tramadol 50 mg Tablet Discontinued 50 mg PO EVERY 6 HOURS as needed for Pain November 25, 2020 12:00am December 05, 2020 10:08am valsartan 160 mg oral tablet (20 sources) Angiotensin 2 Receptor Shanel Start: 2 End: 2 take 1 tablet by mouth once daily Valsartan 160 mg tablet Discontinued 160 mg PO DAILY May 10, 2021 1:00am May 10, 2021 12:01pm Start: 02-07-2020 End: 11-19-2020 take 1 tablet by mouth once daily Valsartan 160 MG tablet Discontinued 160 mg PO DAILY February 07, 2020 12:00am November 19, 2020 12:21pm BP Vibegron (20 sources) Start: 11-15-2022 End: 01-04-2023 take 1 tablet by mouth once daily Vibegron (Gemtesa) 75 mg tablet Discontinued 75 mg PO DAILY November 15, 2022 12:00am January 04, 2023 1:37pm OVERACTIVE BLADDER Start: 11-15-2022 End: 01-04-2023 take 1 tablet by mouth once daily Vibegron (Gemtesa) 75 mg tablet Discontinued 75 mg PO DAILY November 15, 2022 12:00am January 04, 2023 1:37pm Start: 11-15-2022 End: 01-04-2023 take 1 tablet by mouth once daily Vibegron (Gemtesa) 75 mg tablet Discontinued 75 MG PO DAILY November 14, 2022 11:00pm January 04, 2023 12:37pm Start: 11-15-2022 End: 01-04-2023 take 1 tablet by mouth once daily Vibegron (Gemtesa) 75 mg tablet Discontinued 75 MG PO DAILY November 15, 2022 12:00am January 04, 2023 1:37pm Start: 11-15-2022 take 1 tablet by heather th once daily Vibegron (Gemtesa) 75 mg tablet Active 75 MG PO DAILY November 15, 2022 12:00am Problems Active Problems Problem Classification Problem Date Documented Da te Episodic/Chronic Abdominal pain (20 sources) Epigastric discomfort; Translations: [Epigastric pain] Onset: 8 10-18-2022 Episodic Acute cerebrovascular disease (1 source) Cerebral infarction due to unspecified occlusion or stenosis of unspecified cerebral artery; Translations: [Cerebral infarction due to unspecified occlusion or stenosis of unspecified cerebral artery] Onset: 2 Chronic Acute myocardial infarction (20 sources) Acute ST segment elevation myocardial infarction; Translations: [ST elevation (STEMI) myocardial infarction of unspecified site] Onset: 2 11-19-2020 Chronic Anxiety disorders (20 sources) Anxiety; Translations: [Anxiety disorder, unspecified] 12-05-2020 Chronic Cardiac arrest and ventricular fibrillation (20 sources) Cardiac arrest; Translations: [Cardiac arrest, cause unspecified] 11-27-2020 Chronic Cardiac dysrhythmias (20 sources) Atrial fibrillation; Translations: [Unspecified atrial fibrillation] Onset: 2 Chronic Cardiac dysrhythmias (20 sources) Palpitations; Translations: [Palpitations] Onset: 2 Episodic Chronic kidney disease (6 sources) Chronic kidney disease; Translations: [Chronic kidney disease, unspecified] 01-26-2024 Chronic Chronic obstructive pulmonary disease and bronchiectasis (10 sources) Chronic obstructive lung disease; Translations: [Chronic obstructive pulmonary disease, unspecified] 01-03-2024 Chronic Chronic ulcer of skin (20 sources) Ulcer of skin of lower extremity; Translations: [Non-pressure chronic ulcer of unspecified part of right lower leg with unspecified severity] 03-23-2019 Chronic Conditions associated with dizziness or vertigo (20 sources) Dizziness; Translations: [Dizziness and giddiness] Onset: 2 Episodic Congestive heart failure; nonhypertensive (20 sources) Congestive heart failure; Translations: [Heart failure, unspecified] 10-09-2022 Chronic Coronary atherosclerosis and other heart disease (20 sources) Coronary arteriosclerosis; Translations: [Atherosclerotic heart disease of [place] coronary artery without angina pectoris] Onset: 2 Chronic Comment on above: S/P OTIS INSERTION Deficiency and other anemia (6 sources) Iron deficiency anemia due to blood loss; Translations: [Iron deficiency anemia secondary to blood loss (chronic)] 01-09-2024 Chronic Deficiency and other anemia (1 source) Iron deficiency anemia, unspecified; Translations: [Iron deficiency anemia, unspecified] Onset: 3 Episodic Deficiency and other anemia (11 sources) Anemia; Translations: [Anemia, unspecified] 04-06-2023 Episodic Disorders of lipid metabolism (20 sources) Hyperlipidemia; Translations: [Hyperlipidemia, unspecified] Onset: 2 Chronic Esophageal disorders (20 sources) Gastroesophageal reflux disease; Translations: [Gastro-esophageal reflux disease without esophagitis] Onset: 5 Chronic Comment on above: NOT CONTROLLED UNABLE TO SWALLOW OT HER THAN SOME GATORADE, WATER AND OCCASSIONAL BANANA-NO MEDS FOR THE LAST 3 WEEKS-UNABLE TO SWALLOW WELL Essential hypertension (20 sources) Hypertensive disorder; Translations: [Essential (primary) hypertension] Onset: 1 Chronic Fluid and electrolyte disorders (20 sources) Hypokalemia; Translations: [Hypokalemia] Onset: 2 Episodic Gastrointestinal hemorrhage (1 source) Rectal hemorrhage; Translations: [Hemorrhage of anus and rectum] 06-17-2023 Episodic Hemorrhoids (17 sources) Bleeding hemorrhoids; Translations: [Unspecified hemorrhoids] 04-06-2023 Episodic Malaise and fatigue (20 sources) Asthenia; Translations: [Other malaise] Episodic Nausea and vomiting (10 sources) Nausea and vomiting; Translations: [Nausea with vomiting, unspecified] 02-18-2024 Episodic Nonmalignant breast conditions (3 sources) Fibrocystic disease of breast; Translations: [Diffuse cystic mastopathy of unspecified breast] Onset: 5 03-01-2015 Chronic Nonmalignant breast conditions (20 sources) Mastodynia; Translations: [Pain of left breast] Onset: 0 Resolved: 0 Episodic Nonspecific chest pain (20 sources) Musculoskeletal chest pain; Translations: [Other chest pain] Onset: 2 Episodic Nutritional deficiencies (20 sources) Vitamin D deficiency; Translations: [Vitamin D deficiency, unspecified] Onset: 7 01-06-2019 Chronic Osteoarthritis (20 sources) Degenerative joint disease involving multiple joints; Translations: [Polyosteoarthritis, unspecified] Onset: 5 04-12-2018 Chronic Other acquired deformities (20 sources) Spondylolisthesis; Translations: [Spondylolisthesis, site unspecified] 11-25-2019 Episodic Other aftercare (20 sources) Long-term current use of anticoagulant; Translations: [MCFP (current) use of anticoagulants] 04-02-2022 Episodic Comment on above: With Eliquis for par oxysmal atrial fibrillation. Other aftercare (2 sources) MCFP (current) use of anticoagulants; Translations: [Long-term (current) use of anticoagulants] Onset: 3 Episodic Other aftercare (20 sources) Drug therapy finding; Translations: [terminal operations supervisor (current) use of anticoagulants] 04-22-2023 Episodic Other aftercare (6 sources) Other termite inspector (current) drug therapy; Translations: [Long-term (current) use of other medications] 07-02-2023 Episodic Other aftercare (4 sources) Long-term current use of amiodarone; Translations: [Other fci (current) drug therapy] 07-02-2023 Episodic Other and ill-defined heart disease (20 sources) Diastolic dysfunction; Translations: [Other ill-defined heart diseases] 03-06-2022 Chronic Other and ill-defined heart disease (8 sources) Other ill-defined heart diseases; Translations: [Heart disease, unspecified] Chronic Other bone disease and musculoskeletal deformities (20 sources) Segmental and somatic dysfunction; Translations: [Segmental and somatic dysfunction of pelvic region] 05-13-2020 Episodic Other connective tissue disease (20 sources) Fibromyalgia; Translations: [Fibromyalgia] Onset: 7 04-12-2018 Episodic Other connective tissue disease (20 sources) Pain in right lower limb; Translations: [Pain in right leg] 02-07-2020 Episodic Other connective tissue disease (20 sources) Mass of soft tissue; Translations: [Other specified soft tissue disorders] 07-20-2022 Episodic Other diseases of veins and lymphatics (20 sources) Venous insufficiency of leg; Translations: [Venous insufficiency (chronic) (peripheral)] 09-09-2020 Episodic Other gastrointestinal disorders (3 sources) Irritable bowel syndrome; Translations: [Irritable bowel syndrome without diarrhea] Onset: 6 11-27-2005 Chronic Other gastrointestinal disorders (20 sources) Dysphagia, unspecified; Translations: [Dysphagia, unspecified] Onset: 8 Episodic Other gastrointestinal disorders (20 sources) Dysphagia; Translations: [Dysphagia, unspecified] Onset: 6 04-02-2022 Episodic Other gastrointestinal disorders (9 sources) Diarrhea; Translations: [Diarrhea, unspecified] Onset: 8 08-28-2017 Episodic Other lower respiratory disease (20 sources) Dyspnea on exertion; Translations: [Dyspnea, unspecified] 08-11-2021 Episodic Other lower respiratory disease (20 sources) Dyspnea, unspecified; Translations: [Other respiratory abnormalities] Onset: Episodic Other lower respiratory disease (20 sources) Other forms of dyspnea; Translations: [Other respiratory abnormalities] Episodic Other lower respiratory disease (1 source) Dyspnea; Translations: [Shortness of breath] 10-20-2024 Episodic Other nervous system disorders (20 sources) Neuropathy of lower limb; Translations: [Unspecified mononeuropathy of right lower limb] 10-16-2020 Chronic Other nervous system disorders (14 sources) Right leg peripheral neuropathy; Translations: [Unspecified mononeuropathy of right lower limb] 11-28-2022 Chronic Comment on above: BILATERAL LEGS Other nutritional; endocrine; and metabolic disorders (20 sources) Obesity; Translations: [Obesity, unspecified] Onset: 8 09-07-2021 Chronic Other nutritional; endocrine; and metabolic disorders (20 sources) Obesity, unspecified; Translations: [Obesity, unspecified] Chronic Other skin disorders (6 sources) Comedone; Translations: [Acne vulgaris] 12-24-2023 Episodic Other upper respiratory disease (20 sources) Bleeding from nose; Translations: [Epistaxis] 07-15-2021 Episodic Pulmonary heart disease (10 sources) Pulmonary hypertension; Translations: [Pulmonary hypertension, unspecified] 02-18-2024 Chronic Residual codes; unclassified (20 sources) Hypersomnia; Translations: [Hypersomnia, unspecified] 02-28-2022 Chronic Residual codes; unclassified (18 sources) Hypersomnia, unspecified; Translations: [Hypersomnia, unspecified] Onset: 2 Chronic Residual codes; unclassified (20 sources) Bilateral lower limb edema; Translations: [Localized edema] 03-02-2021 Episodic Residual codes; unclassified (20 sources) History of cardiac catheterization; Translations: [Other specified postprocedural states] Onset: 2 07-25-2021 Episodic Comment on above: LEFT MAIN: distal: e ccentric: hazy: 50 % Stenosis; LEFT ANTERIOR DESCENDING ARTERY: PROX LAD: Previously placed stent is patent; DIAGONAL 1: Proximal - 85 % Stenosis; CIRCUMFLEX ARTERY: PROX CIRC: Mild luminal irregularities ; RIGHT CORONARY ARTERY: OSTIAL RCA: 25 % Stenosis; MID RCA: 50 % Stenosis; AORTIC ROOT:Angiographically normal per cardiac cath 07/22/21Le Heart Cath 01/31/2024 Residual codes; unclassified (1 source) Chills (without fever); Translations: [Chills (without fever)] Onset: 2 Episodic Residual codes; unclassified (16 sources) Localized edema; Translations: [Edema] 10-18-2022 Episodic Spondylosis; intervertebral disc disorders; other back problems (20 sources) Backache; Translations: [Dorsalgia, unspecified] Onset: 6 07-20-2022 Episodic Superficial injury; contusion (20 sources) Contusion of chest; Translations: [Contusion of unspecified front wall of thorax, initial encounter] 11-19-2020 Episodic Comment on above: FROM CPR painful hematoma sca r right anterolateral leg Unclassified (7 sources) I48.0 - Paroxysmal atrial fibrillation Urinary tract infections (20 sources) Urinary tract infection, site not specified; Translations: [Urinary tract infectious disease] Onset: 7 08-28-2017 Episodic Past or Other Problems Problem Classification Problem Date Documented Da te Episodic/Chronic Allergic reactions (3 sources) Allergic contact dermatitis; Translations: [Allergic contact dermatitis, unspecified cause] Onset: 02-16-2017 08-28-2017 Episodic Coronary atherosclerosis and other heart disease (20 sources) Presence of coronary angioplasty implant and graft; Translations: [Percutaneous transluminal coronary angioplasty status] Onset: 11-16-2020 Episodic Deficiency and other anemia (1 source) Anemia, unspecified; Translations: [D64.9 - Anemia, unspecified] Onset: 09-21-2021 Episodic Other inflammatory condition of skin (3 sources) Pruritus, unspecified; Translations: [Unspecified pruritic disorder] Onset: 02-16-2017 08-28-2017 Episodic Other injuries and conditions due to external causes (3 sources) Multiple injuries; Translations: [Unspecified multiple injuries, initial encounter] Onset: 02-16-2017 08-28-2017 Episodic Other non-traumatic joint disorders (3 sources) Pain in lower limb; Translations: [Pain in unspecified knee] Onset: 06-08-2005 06-08-2005 Episodic Other non-traumatic joint disorders (3 sources) Hip pain; Translations: [Pain in unspecified hip] Onset: 06-22-2015 08-28-2017 Episodic Other non-traumatic joint disorders (3 sources) Pain in unspecified knee; Translations: [Pain in joint, lower leg] Onset: 02-16-2017 08-28-2017 Episodic Other nutritional; endocrine; and metabolic disorders (1 source) Abnormal weight loss; Translations: [Abnormal weight loss] Onset: 11-29-2017 Episodic Other nutritional; endocrine; and metabolic disorders (3 sources) Loss of appetite; Translations: [Anorexia] Onset: 08-15-2017 08-28-2017 Episodic Other screening for suspected conditions (not mental disorders or infectious disease) (6 sources) Encounter for screening mammogram for malignant neoplasm of breast; Translations: [Mammography abnormal] Onset: 11-06-2008 Resolved: 12-30-2009 03-30-2011 Episodic Other skin disorders (3 sources) Eruption; Translations: [Rash and other nonspecific skin eruption] Onset: 02-16-2017 08-28-2017 Episodic Other upper respiratory disease (1 source) Epistaxis; Translations: [R04.0 - Epistaxis] Onset: 08-25-2021 Episodic Residual codes; unclassified (3 sources) Localized edema; Translations: [Localized edema] Onset: 02-16-2017 08-28-2017 Episodic Unclassified (20 sources) history bilateral breast biopsies 11-09-2021 Results Test Name Value Interpretation Reference Range Facility Absolute lymphocyte countOrd ered By: Rohit Sweeney on 10-20-2024 Lymphocytes Auto (Unsp spec) [#/Vol] 1.96 10*3/uL 0.83-4.51 [facility] Absolute neutrophil countOrd ered By: Rohit Sweeney on 10-20-2024 Neutrophils (Bld) [#/Vol] 5.0 10*3/uL 2.0-7.7 [facility] Anion gap in Serum or Plasma Ordered By: Rohit Sweeney on 10-20-2024 Anion gap [Moles/Vol] 13 mmol/L 5-15 [facility] Automated lymphocyte count a s percentage of total leukocytesOrdered By: Rohit Sweeney on 10-20-2024 Lymphocytes/100 WBC Auto (Unsp spec) 25.3 % 19-41 [facility] BUN/creatinine ratioOrdered By: Rohit Sweeney on 10-20-2024 Urea nitrogen/Creatinine [Mass ratio] 17.1 mg/mg 10-20 [facility] Basophil percentageOrdered B y: Rohit Sweeney on 10-20-2024 Basophils/100 WBC (Bld) 0.8 % 0-1 [facility] Carbon dioxide, total [Moles /volume] in Central venous bloodOrdered By: Rohit Sweeney on 10-20-2024 CO2 [Moles/Vol] 26.5 mmol/L 21.0-32.0 [facility] Chloride assayOrdered By: Juancarlos Sweeney on 10-20-2024 Chloride [Moles/Vol] 103 mmol/L 98-108 [facility] Eosinophil percentageOrdered By: Rohit Sweeney on 10-20-2024 Eosinophils/100 WBC (Bld) 2.7 % 0-5 [facility] Erythrocyte distribution wid th ratioOrdered By: Rohit Sweeney on 10-20-2024 Erythrocyte distribution width (RBC) [Ratio] 14.9 % High 11.6-14.6 [facility] Erythrocyte distribution wid th standard deviationOrdered By: Rohit Sweeney on 10-20-2024 Erythrocyte distribution width (RBC) [Ratio] 45.5 fl High 35.1-43.9 [facility] Free [id number] By: Rohit engel on 10-20-2024 Free T3 [Mass/Vol] 2.1 pg/mL Low 2.18-3.[address] [facility] Glomerular filtration rate ( GFR) estimation/1.73 sq m using serum, plasma, or whole bOrdered By: Rohit Sweeney on 10-20-2024 GFR/1.73 sq M.predicted among non-blacks MDRD (S/P/Bld) [Vol rate/Area] 49 mL/min/{1.73_m2} Low >60 [facility] Comment on above: mL/min/1.73m2 CKD-EP I Creatinine Equation (2020) Hematocrit Auto (Bld) [Volum e fraction]Ordered By: Rohit Sweeney on 10-20-2024 Hematocrit (Bld) [Volume fraction] 38.2 % 37-47 [facility] Hemoglobin measurementOrdere d By: Rohit Sweeney on 10-20-2024 Hemoglobin (Bld) [Mass/Vol] 12.3 g/dL 12.0-15.0 [facility] Immature granulocytes/100 WB C Auto (Bld)Ordered By: Rohit Sweeney on 10-20-2024 Immature granulocytes/100 WBC (Bld) 0.300 % 0.0-0.9 [facility] Comment on above: IG% - Immature Granu locytes (promyelocytes, myelocytes and metamyelocytes) > 1% indicates that a LEFT SHIFT is Present. MCV (mean corpuscular volume ) determinationOrdered By: Rohit Sweeney on 10-20-2024 MCV (RBC) [Entitic vol] 84.7 fL 81-99 [facility] Mean corpuscular hemoglobin (MCH) determinationOrdered By: Rohit Sweeney on 10-20-2024 MCH (RBC) [Entitic mass] 27.3 pg 27.0-32.0 [facility] Mean corpuscular hemoglobin concentration (MCHC) determinationOrdered By: Rohit Sweeney on 10-20-2024 MCHC (RBC) [Mass/Vol] 32.2 g/dL 32-36 [facility] Mean platelet volume determi nationOrdered By: Rohit Sweeney on 10-20-2024 Platelet mean volume (Bld) [Entitic vol] 10.0 fL 6.2-12.0 [facility] Monocyte percentageOrdered B y: Rohit Sweeney on 10-20-2024 Monocytes/100 WBC (Bld) 7.1 % 0-10 [facility] Natriuretic peptide.B prohor ceci N-Terminal [Mass/volume] in Serum or PlasmaOrdered By: Rohit Sweeney on 10-20-2024 Natriuretic peptide.B prohormone N-Terminal [Mass/Vol] 2281 pg/mL High <1800 [facility] Comment on above: Heart Failure Unlike ly: < 300 pg/mLHeart Failure Likely< 50 Years: > 450 pg/mL50-75 Years: > 900 pg/mL>75 Years: > 1800 pg/mL Neutrophil percentageOrdered By: Rohit Sweeney on 10-20-2024 Neutrophils/100 WBC (Bld) 63.8 % 47-70 [facility] Nucleated red blood cell per centageOrdered By: Rohit Sweeney on 10-20-2024 Nucleated RBC/100 WBC (Bld) [Ratio] 0 % 0-5 [facility] Platelet countOrdered By: Juancarlos Sweeney on 10-20-2024 Platelets (Bld) [#/Vol] 306 10*3/uL 150-450 [facility] Potassium measurement (mass/ volume)Ordered By: Rohit Sweeney on 10-20-2024 Potassium (Unsp spec) [Mass/Vol] 3.9 mmol/L 3.3-5.1 [facility] RBC Auto (Bld) [#/Vol]Ordere d By: Rohit Sweeney on 10-20-2024 RBC (Bld) [#/Vol] 4.51 10*6/uL 4.2-5.4 [facility] Serum creatinine measurement (mass/volume)Ordered By: Rohit Sweeney on 10-20-2024 Creatinine [Mass/Vol] 1.15 mg/dL 0.70-1.20 [facility] Serum glucose measurement (m ass/volume)Ordered By: Rohit Sweeney on 10-20-2024 Glucose [Mass/Vol] 137 mg/dL High 70-[address] [facility] Serum or plasma calcium lauren urement (mass/volume)Ordered By: Rohit Sweeney on 10-20-2024 Calcium [Mass/Vol] 9.8 mg/dL 7.6-11.[address] [facility] Serum or plasma urea nitroge n measurement (mass/volume)Ordered By: Rohit Sweeney on 10-20-2024 Urea nitrogen [Mass/Vol] 20 mg/dL High 4-19 [facility] Sodium levelOrdered By: Mayra Sweeney on 10-20-2024 Sodium [Moles/Vol] 142 mmol/L 133-[address] [facility] T4 freeOrdered By: Rohit engel on 10-20-2024 Free T4 [Mass/Vol] 1.20 ng/dL 0.76-1.[address] [facility] TSH DL <= 0.005 mIU/L QnOrde red By: Rohit Sweeney on 10-20-2024 TSH Qn 0.952 uIU/mL 0.300-4.20 0 [facility] Troponin T.cardiac [Mass/vol ume] in Serum or Plasma by High sensitivity methodOrdered By: Rohit Sweeney on 10-20-2024 Troponin T.cardiac High sensitivity method [Mass/Vol] 17 ng/L High <14 [facility] Troponin T.cardiac High sensitivity method [Mass/Vol] 20 ng/L High <14 [facility] White blood cell (WBC) count Ordered By: Rohit Sweeney on 10-20-2024 WBC (Bld) [#/Vol] 7.8 10*3/uL 4.4-11.[address] [facility] Urine cultureOrdered By: Alexi Morin on 10-14-2024 Bacteria identified Cx Nom (U) Positive Abnormal [facility] Magnetic resonance imaging r eportOrdered By: Leroy Nolen on 07-09-2024 Study report [facility] Imaging Services [address] [place] [address] MRI Abd WITH and W/O Contrast MR#: [id number] Acct: [id number] Name: GLORY SANTOS Rep #: [id number] : 1945 F 79 From: Desiree Nolen MD PCP: Dr. Alexi Morin MD Status: REG C LI Study:MRI Abd WITH and W/O Contrast Date of E xam: 07/09/24 Exam# [id number] Ordering Dr: Alexi Morin MD PROCEDURE: MRI ABD WITH AND W/O CONTRAST ([id number]), 07/09/2024 REASON FOR EXAM: LIVER HEMANGIOMA TECHNIQUE: Multiplanar multisequence MRI abdomen was performed with and without IV contrast. IV CONTRAST: 17 mL Clariscan COMPARISON: 04/23/2024 FINDINGS: Variable overall mild motion limitation. Some sequences are mild/moderately motion degraded. Liver: Mild geographic signal abnormality along the subcapsular aspect of segment III without abnormal enhancement, compatible with focal steatosis. This is grossly similar recent exams dating back to 02/18/2024 allowing for the difference in modality, but new from more remote exams. No focal enhancing or definite space-occupying lesion identified. Spleen: Unremarkable. Gallbladder: Cholecystectomy. Similar mild prominence of the CBD at 8 mm, likely post cholecystectomy effect. Pancreas: Unremarkable. Adrenals: Unremarkable. Kidneys: Small cysts on the LEFT. Bowel: Grossly unremarkable, but not well evaluated by MRI and better assessed previously. Lymph nodes: Unremarkable. Vasculature: Atherosclerosis. Peritoneum: Unremarkable. Body Wall: Unremarkable. Bones: Multilevel spondylosis and thoracolumbar levoscoliosis. MRI/MRI Abd WITH and W/O Contrast IMPRESSION: 1. No suspicious hepatic lesion identified. Previous CT finding appears to represent focal hepatic steatosis. 2. Additional description as above. Reading Location: [id number] CC: Dr. Alexi Morin MD ~ Button [employer]eter: Signed [facility] Absolute lymphocyte countOrd ered By: Alexi Morin on 06-27-2024 Lymphocytes Auto (Unsp spec) [#/Vol] 1.73 10*3/uL 0.83-4.51 [facility] Absolute neutrophil countOrd ered By: Alexi Morin on 06-27-2024 Neutrophils (Bld) [#/Vol] 5.0 10*3/uL 2.0-7.7 [facility] Anion gap in Serum or Plasma Ordered By: Alexi Morin on 06-27-2024 Anion gap [Moles/Vol] 12 mmol/L 5-15 [facility] Automated lymphocyte count a s percentage of total leukocytesOrdered By: Alexi Morin on 06-27-2024 Lymphocytes/100 WBC Auto (Unsp spec) 23.1 % 19-41 [facility] BUN/creatinine ratioOrdered By: Alexi Morin on 06-27-2024 Urea nitrogen/Creatinine [Mass ratio] 16.4 mg/mg 10-20 [facility] Basophil percentageOrdered B y: Alexi Morin on 06-27-2024 Basophils/100 WBC (Bld) 0.7 % 0-1 [facility] Bilirubin, totalOrdered By: Alexi Morin on 06-27-2024 Bilirubin [Mass/Vol] 0.66 mg/dL 0.00-1.30 [facility] Carbon dioxide, total [Moles /volume] in Central venous bloodOrdered By: Alexi Morin on 06-27-2024 CO2 [Moles/Vol] 22.2 mmol/L 21.0-32.0 [facility] Chloride assayOrdered By: Solitario Morin on 06-27-2024 Chloride [Moles/Vol] 108 mmol/L 98-108 [facility] Eosinophil percentageOrdered By: Alexi Morin on 06-27-2024 Eosinophils/100 WBC (Bld) 2.9 % 0-5 [facility] Erythrocyte distribution wid th ratioOrdered By: Alexi Morin on 06-27-2024 Erythrocyte distribution width (RBC) [Ratio] 17.2 % High 11.6-14.6 [facility] Erythrocyte distribution wid th standard deviationOrdered By: Alexi Morin on 06-27-2024 Erythrocyte distribution width (RBC) [Entitic vol] 52.2 fL High 35.1-43.9 [facility] Erythrocyte distribution width (RBC) [Ratio] 52.2 fl High 35.1-43.9 [facility] GFR/1.73 sq M.predicted chepe g non-blacks MDRD (S/P/Bld) [Vol rate/Area]Ordered By: Alexi Morin on 06-27-2024 Estimated GFR (MDRD) Non-Af Amer 57 Low >60 [facility] Comment on above: mL/min/1.73m2 CKD-EP I Creatinine Equation (2020) Glomerular filtration rate ( GFR) estimation/1.73 sq m using serum, plasma, or whole bOrdered By: Alexi Morin on 06-27-2024 GFR/1.73 sq M.predicted among non-blacks MDRD (S/P/Bld) [Vol rate/Area] 57 mL/min/{1.73_m2} Low >60 [facility] Comment on above: mL/min/1.73m2 CKD-EP I Creatinine Equation (2020) Hematocrit Auto (Bld) [Volum e fraction]Ordered By: Alexi Morin on 06-27-2024 Hematocrit (Bld) [Volume fraction] 40.2 % 37-47 [facility] Hemoglobin measurementOrdere d By: Alexi Morin on 06-27-2024 Hemoglobin (Bld) [Mass/Vol] 12.3 g/dL 12.0-15.0 [facility] Immature granulocytes/100 WB C Auto (Bld)Ordered By: Alexi Morin 06-27-2024 Immature granulocytes/100 WBC (Bld) 0.400 % 0.0-0.9 [facility] Comment on above: IG% - Immature Granu locytes (promyelocytes, myelocytes and metamyelocytes) > 1% indicates that a LEFT SHIFT is Present. Laboratory - Chemistry and C hemistry - challengeOrdered By: Alexi Morin on 06-27-2024 AST [Catalytic activity/Vol] 21 U/L <32 [facility] Lymphocytes Auto (Unsp spec) [#/Vol]Ordered By: Alexi Morin 06-27-2024 Lymphocytes (Bld) [#/Vol] 1.73 10*3/uL 0.83-4.51 [facility] Lymphocytes/100 WBC Auto (Un sp spec)Ordered By: Alexi Morin on 06-27-2024 Lymphocytes/100 WBC (Bld) 23.1 % 19-41 [facility] MCV (mean corpuscular volume ) determinationOrdered By: Alexi Morin on 06-27-2024 MCV (RBC) [Entitic vol] 83.9 fL 81-99 [facility] Mean corpuscular hemoglobin (MCH) determinationOrdered By: Alexi Morin on 06-27-2024 MCH (RBC) [Entitic mass] 25.7 pg Low 27.0-32.0 [facility] Mean corpuscular hemoglobin concentration (MCHC) determinationOrdered By: Alexi Morin on 06-27-2024 MCHC (RBC) [Mass/Vol] 30.6 g/dL Low 32-36 [facility] Mean platelet volume determi nationOrdered By: Alexi Morin on 06-27-2024 Platelet mean volume (Bld) [Entitic vol] 11.0 fL 6.2-12.0 [facility] Monocyte percentageOrdered B y: Alexi Morin on 06-27-2024 Monocytes/100 WBC (Bld) 6.3 % 0-10 [facility] Neutrophil percentageOrdered By: Alexi Laraok on 06-27-2024 Neutrophils/100 WBC (Bld) 66.6 % 47-70 [facility] Nucleated red blood cell per centageOrdered By: Alexi Morin on 06-27-2024 Nucleated RBC/100 WBC (Bld) [Ratio] 0 % 0-5 [facility] Platelet countOrdered By: Solitario Morin on 06-27-2024 Platelets (Bld) [#/Vol] 303 10*3/uL 150-450 [facility] Potassium (Unsp spec) [Mass/ Vol]Ordered By: Alexi Morin on 06-27-2024 Potassium [Moles/Vol] 4.1 mmol/L 3.3-5.1 [facility] Potassium measurement (mass/ volume)Ordered By: Alexi Morin on 06-27-2024 Potassium (Unsp spec) [Mass/Vol] 4.1 mmol/L 3.3-5.1 [facility] RBC Auto (Bld) [#/Vol]Ordere d By: Alexi Morin on 06-27-2024 RBC (Bld) [#/Vol] 4.79 10*6/uL 4.2-5.4 [facility] Serum creatinine measurement (mass/volume)Ordered By: Alexi Morin on 06-27-2024 Creatinine [Mass/Vol] 1.01 mg/dL 0.70-1.20 [facility] Serum globulin measurementOr dered By: Alexi Morin on 06-27-2024 Globulin (S) [Mass/Vol] 3.6 g/dL 2.2-4.2 [facility] Serum glucose measurement (m ass/volume)Ordered By: Alexi Morin on 06-27-2024 Glucose [Mass/Vol] 84 mg/dL 70-[address] [facility] Serum or plasma alanine conteh otransferase (ALT) measurementOrdered By: Alexi Morin on 06-27-2024 ALT [Catalytic activity/Vol] 11 U/L <35 [facility] Serum or plasma albumin lauren urement (mass/volume)Ordered By: Alexi Morin on 06-27-2024 Albumin [Mass/Vol] 3.8 g/dL 3.4-4.[address] [facility] Serum or plasma albumin/glob ulin mass ratioOrdered By: Alexi Morin 06-27-2024 Albumin/Globulin [Mass ratio] 1.1 {ratio} 0.9-2.4 [facility] Serum or plasma alkaline raffy sphatase measurementOrdered By: Alexi Morin 06-27-2024 ALP [Catalytic activity/Vol] 107 U/L High 35-104 [facility] Serum or plasma calcium lauren urement (mass/volume)Ordered By: Alexi Morin 06-27-2024 Calcium [Mass/Vol] 9.5 mg/dL 7.6-11.[address] [facility] Serum or plasma urea nitroge n measurement (mass/volume)Ordered By: Alexi Morin 06-27-2024 Urea nitrogen [Mass/Vol] 17 mg/dL 4-19 [facility] Sodium levelOrdered By: Alexi Morin 06-27-2024 Sodium [Moles/Vol] 142 mmol/L 133-[address] [facility] TSH DL <= 0.005 mIU/L QnOrde red By: Alexi Morin on 06-27-2024 Thyroid Stimulating Hormone (TSH) 1.430 uIU/mL 0.300-4.20 0 [facility] TSH Qn 1.430 uIU/mL 0.300-4.20 0 [facility] Total proteinOrdered By: Alexi Morin on 06-27-2024 Protein [Mass/Vol] 7.4 g/dL 5.9-8.[address] [facility] Vitamin D, 25-hydroxyOrdered By: Alexi Morin on 06-27-2024 Vitamin D 25-Hydroxy 32.5 ng/mL 30-100 [facility] Comment on above: Vitamin D StatusDefi ciency: <20 ng/mL (50nmol/L)Insufficiency: 20-30 ng/mL (50-75 nmol/L)Sufficiency: 30-100 ng/mL (75-250 nmol/L)Toxicity: >100 ng/mL (>250 nmol/L) White blood cell (WBC) count Ordered By: Alexi Morin on 06-27-2024 WBC (Bld) [#/Vol] 7.5 10*3/uL 4.4-11.[address] [facility] CNPNon 06-03-2024 CNPN Telephone (CARMOB) -- GLORY SANTOS ([id number]) 1945 F Date Time Provider Department 06/03/24 AMA GONZALEZ During your visit today, we recorded the following information about you: Maricarmen Ramos 06/03/2024 12:46 PM Signed Patient called to schedule NEW PAT appt. She was going to [facility], Dr. Melody Briceno.I verified her address, phone numbers, PCP and insurance. Patient is scheduled w/ Dr. Gonzalez on 12/01/2024 @ 9:30 am. Please request records. Nora Harris 06/03/2024 1:58 PM Signed Requested records from Dr. Briceno's office. Leanna Harriselver Mckinney 07/04/2024 1:30 PM Signed Received records from Dr. Briceno's office. Scanned into chart for review. Allergies As of Date: 06/03/2024 Noted Allergy Reaction ACETAMINOPHEN 01/12/2015 14 - Other: See Comments ADHESIVE TAPE (ROSINS) 01/18/2006 14 - Other: See Comments Comments: Heath skin BEE POLLEN 02/03/2005 14 - Other: See Comments Comments: Swelling and throat closes LATEX 11/03/2008 2 - Rash MORPHINE 04/01/2013 1 - Mental Status Change PENICILLINS 02/03/2005 2 - Rash VICODIN (HYDROCODONE-ACETAMINOPHE* 02/03/2005 8 - GI Upset Date Reviewed: 06/17/2023 Reviewed by: Igor Jimenez MD - Fully Assessed Reason for Visit: Appointment [[id number]] Cmt: NEW PAT Prescriptions as of 07/04/2024 - omeprazole (PRILOSEC) 10 mg capsule Take 20 mg by mouth once daily. - albuterol-budesonide HFA (AIRSUPRA) 90-80 mcg/actuation inhaler Take 2 Puffs by mouth every 4 hours as needed for wheezing/shortness of breath. Do not take more than 12 inhalations in a 24 hour period. - amLODIPine (NORVASC) 10 mg tablet Take 5 mg by mouth once daily. - metoprolol succinate ER (TOPROL XL) 25 mg 24 hr tablet Take 25 mg by mouth once daily. - pantoprazole DR (PROTONIX) 40 mg tablet Take 40 mg by mouth once daily. - rosuvastatin 40 mg cpSP Take 40 mg by mouth once daily. - apixaban (ELIQUIS) 5 mg tab(s) Take 5 mg by mouth two times a day. - nitroglycerin sublingual (NITROQUICK) 0.4 mg SL tablet Dissolve 0.4 mg under the tongue every 5 minutes as needed for chest pain. - ondansetron (ZOFRAN) 4 mg tablet Take 4 mg by mouth every 8 hours as needed for nausea/vomiting. - meclizine (ANTIVERT) 25 mg tab Take 25 mg by mouth three times a day. - diazePAM (VALIUM) 2 mg tablet Take 2 mg by mouth every 6 hours as needed. - VITAMIN D 50,000 unit capsule Take one capsule by mouth per week for 8 weeks then one capsule monthly thereafter - spironolactone (ALDACTONE) 25 mg tablet - meloxicam (MOBIC) 15 mg tablet Take 15 mg by mouth once daily. - tolterodine (DETROL) 2 mg tablet Take 2 mg by mouth twice daily. - esomeprazole (NEXIUM) 20 mg capsule Take 20 mg by mouth DAILY (6 AM). - pregabalin (LYRICA) 75 mg capsule Take 75 mg by mouth twice daily. - lisinopril (ZESTRIL, PRINIVIL) 10 mg tablet Take 1 tablet by mouth once daily. - Aspirin 81 mg Tab Take 81 mg by mouth. - naproxen sodium(ALEVE 220 MG TAB) 2 tabs q 4-6 hrs prn pain Problem List As Of Date 06/03/2024 Noted Resolved ESOPHAGEAL REFLUX [K21.9] 02/06/2005 GENERAL OSTEOARTHROSIS [M15.9] 02/06/2005 PAIN IN JOINT, LOWER LEG [M25.569] 06/08/2005 IRRITABLE COLON [K58.9] 11/27/2005 Abnormal Mammogram, Unspecified [R92.8] 11/06/2008 12/30/2009 Lump or Mass in Breast [N63.0] 09/02/2009 12/30/2009 Essential hypertension, benign [I10] 06/30/2010 Abnormal mammogram, unspecified [R92.8] 03/30/2011 Fibrocystic breast [N60.19] 03/01/2015 Pain in unspecified hip [M25.559] 06/22/2015 Right-sided low back pain with right-sided scia*06/22/2015 Pharyngoesophageal dysphagia [R13.14] 04/10/2016 Obesity, unspecified [E66.9] 07/10/2017 Vitamin D deficiency, unspecified [E55.9] 02/16/2017 Urinary tract infection, site not specified [N3*02/16/2017 Multiple injuries [T07.XXXA] 02/16/2017 Rash and other nonspecific skin eruption [R21] 02/16/2017 Anorexia [R63.0] 08/15/2017 Pruritus, unspecified [L29.9] 02/16/2017 Pain in unspecified knee [M25.569] 02/16/2017 Urinary tract infection [N39.0] 05/31/2017 Localized edema [R60.0] 02/16/2017 Generalized abdominal pain [R10.84] 08/28/2017 Fibromyalgia [M79.7] 02/16/2017 Allergic contact dermatitis, unspecified cause *02/16/2017 Diarrhea [R19.7] 08/28/2017 Encounter Status:Closed by NORA HARRIS on 07/04/24 [facility] Absolute neutrophil countOrd ered By: ED PROVIDER on 04-23-2024 Neutrophils (Bld) [#/Vol] 7.5 10*3/uL 2.0-7.7 [facility] Albumin to globulin ratioOrd ered By: Campos Tomlin on 04-23-2024 Albumin/Globulin [Mass ratio] 0.6 {ratio} Low 0.9-2.4 [facility] Basophil percentageOrdered B y: ED PROVIDER on 04-23-2024 Basophils/100 WBC (Bld) 0.5 % 0-1 [facility] Bilirubin Test strip Ql (U)O rdered By: Campos Tomlin on 04-23-2024 Bilirubin Ql (U) Negative Negative [facility] Bilirubin, totalOrdered By: Campos Tomlin on 04-23-2024 Bilirubin [Mass/Vol] 0.30 mg/dL 0.20-1.00 [facility] Comment on above: For patients on eltr ombopag therapy, use of Dimension [place] TBIL is not recommended. Blood urea nitrogen (BUN)/cr eatinine ratioOrdered By: Campos Tomlin on 04-23-2024 Urea nitrogen/Creatinine [Mass ratio] 14.7 mg/mg 10-20 [facility] Carbon dioxide measurementOr dered By: Campos Tomlin on 04-23-2024 CO2 [Moles/Vol] 24.0 mmol/L 21.0-32.0 [facility] Chloride measurementOrdered By: Campos Tomlin on 04-23-2024 Chloride [Moles/Vol] 110 mmol/L High 98-107 [facility] Eosinophil percentageOrdered By: ED PROVIDER on 04-23-2024 Eosinophils/100 WBC (Bld) 2.4 % 0-5 [facility] Epithelial cells.squamous LM Ql (Urine sed)Ordered By: Campos Tomlin on 04-23-2024 Epithelial cells.squamous LM.HPF (Urine sed) [#/Area] 0 /[HPF] 5-10 [facility] Erythrocyte distribution wid th ratioOrdered By: ED PROVIDER on 04-23-2024 Erythrocyte distribution width (RBC) [Ratio] 17.5 % High 11.6-14.6 [facility] Erythrocyte distribution wid th standard deviationOrdered By: ED PROVIDER on 04-23-2024 Erythrocyte distribution width (RBC) [Entitic vol] 51.8 fL High 35.1-43.9 [facility] Estimated glomerular filtrat ion rate (GFR) AmericanOrdered By: Campos Tomlin on 04-23-2024 Estimated GFR (MDRD) Amer 49 mL/min Low >60 [facility] Comment on above: GFR Calc Estimation of creatinine katelin aranceOrdered By: Campos Tomlin on 04-23-2024 Estimated Creatinine Clearance Calc 34.06 ml/min [facility] Glomerular filtration rate ( GFR) estimationOrdered By: Campos Tomlin on 04-23-2024 Estimated GFR (MDRD) Non-Af Amer 40 mL/min Low >60 [facility] Comment on above: Non- GFR Calc Glucose Ql (U)Ordered By: Scot Tomlin on 04-23-2024 Urine Glucose (UA) Normal mg/dl Normal [facility] Glucose measurementOrdered B y: Campos Tomlin on 04-23-2024 Glucose [Mass/Vol] 108 mg/dL High 74-[address] [facility] Comment on above: Fasting Glucose resu lt from 100 to 125 mg/dL suggests IMPAIRED HOMEOSTASIS per A.D.A. criteria. Hematocrit Auto (Bld) [Volum e fraction]Ordered By: ED PROVIDER on 04-23-2024 Hematocrit (Bld) [Volume fraction] 43.3 % 37-47 [facility] Hemoglobin measurementOrdere d By: ED PROVIDER on 04-23-2024 Hemoglobin (Bld) [Mass/Vol] 13.4 g/dL 12.0-15.0 [facility] Immature granulocytes/100 WB C Auto (Bld)Ordered By: ED PROVIDER on 04-23-2024 Immature granulocytes/100 WBC (Bld) 0.700 % 0.0-0.9 [facility] Comment on above: IG% - Immature Granu locytes (promyelocytes, myelocytes and metamyelocytes) > 1% indicates that a LEFT SHIFT is Present. International normalized rat io (INR) calculationOrdered By: Campos Tomlin on 04-23-2024 INR Coag (Bld) [Relative time] 1.1 {INR} [facility] Ketones Test strip Ql (U)Ord ered By: Campos Tomlin on 04-23-2024 Ketones Ql (U) Negative Negative [facility] Laboratory - Chemistry and C hemistry - challengeOrdered By: Campos Tomlin on 04-23-2024 AST [Catalytic activity/Vol] 22 U/L 15-37 [facility] Lipase measurementOrdered By : Campos Tomlin on 04-23-2024 Lipase [Catalytic activity/Vol] 52 U/L 13-75 [facility] Comment on above: Please note:LIPASE r evised reference range effective 22. New Lipase methodology. Expected to produce lower values than the previous assay method. NEW Reference Range: 13 - 75 U/L Lymphocytes Auto (Unsp spec) [#/Vol]Ordered By: ED PROVIDER on 04-23-2024 Lymphocytes (Bld) [#/Vol] 1.81 10*3/uL 0.83-4.51 [facility] Lymphocytes/100 WBC Auto (Un sp spec)Ordered By: ED PROVIDER on 04-23-2024 Lymphocytes/100 WBC (Bld) 17.4 % Low 19-41 [facility] MCV (mean corpuscular volume ) determinationOrdered By: ED PROVIDER on 04-23-2024 MCV (RBC) [Entitic vol] 82.5 fL 81-99 [facility] Mean corpuscular hemoglobin (MCH) determinationOrdered By: ED PROVIDER on 04-23-2024 MCH (RBC) [Entitic mass] 25.5 pg Low 27.0-32.0 [facility] Mean corpuscular hemoglobin concentration (MCHC) determinationOrdered By: ED PROVIDER on 04-23-2024 MCHC (RBC) [Mass/Vol] 30.9 g/dL Low 32-36 [facility] Mean platelet volume determi nationOrdered By: ED PROVIDER on 04-23-2024 Platelet mean volume (Bld) [Entitic vol] 9.8 fL 6.2-12.0 [facility] Microscopic analysis of urin e for red blood cells (RBC)Ordered By: Campos Tomlin on 04-23-2024 Urine RBC 0 SEEN /hpf 0-5 [facility] Monocyte percentageOrdered B y: ED PROVIDER on 04-23-2024 Monocytes/100 WBC (Bld) 6.8 % 0-10 [facility] Mucus LM Ql (Urine sed)Order ed By: Campos Tomlin on 04-23-2024 Mucus Ql (Urine sed) 0 SEEN /hpf [facility] Neutrophil percentageOrdered By: ED PROVIDER on 04-23-2024 Neutrophils/100 WBC (Bld) 72.2 % High 47-70 [facility] Nitrite Test strip Ql (U)Ord ered By: Campos Tomlin on 04-23-2024 Nitrite Ql (U) Negative Negative [facility] Nucleated red blood cell per centageOrdered By: ED PROVIDER on 04-23-2024 Nucleated RBC/100 WBC (Bld) [Ratio] 0 % 0-5 [facility] Platelet countOrdered By: ED PROVIDER on 04-23-2024 Platelets (Bld) [#/Vol] 383 10*3/uL 150-450 [facility] Potassium measurementOrdered By: Campos Tomlin on 04-23-2024 Potassium [Moles/Vol] 3.4 mmol/L Low 3.5-5.1 [facility] Protein Test strip Ql (U)Ord ered By: Campos Tomlin on 04-23-2024 Protein Ql (U) 30 mg/dl High Negative [facility] Prothrombin timeOrdered By: Campos Tomlin on 04-23-2024 PT Coag (PPP) [Time] 14.1 s 11.7-14.9 [facility] RBC Auto (Bld) [#/Vol]Ordere d By: ED PROVIDER on 04-23-2024 RBC (Bld) [#/Vol] 5.25 10*6/uL 4.2-5.4 [facility] Serum anion gap measurementO rdered By: Campos Tomlin on 04-23-2024 Anion gap [Moles/Vol] 6 mmol/L 5-15 [facility] Serum globulin measurementOr dered By: Campos Tomlin on 04-23-2024 Globulin (S) [Mass/Vol] 4.8 g/dL High 2.2-4.2 [facility] Serum or plasma alanine conteh otransferase (ALT) measurementOrdered By: Campos Tomlin on 04-23-2024 ALT [Catalytic activity/Vol] 15 U/L 13-56 [facility] Serum or plasma albumin lauren urement (mass/volume)Ordered By: Campos Tomlin on 04-23-2024 Albumin [Mass/Vol] 3.1 g/dL Low 3.2-5.[address] [facility] Serum or plasma alkaline raffy sphatase measurementOrdered By: Campos Tomlin on 04-23-2024 ALP [Catalytic activity/Vol] 115 U/L 45-117 [facility] Serum or plasma calcium lauren urement (mass/volume)Ordered By: Campos Tomlin on 04-23-2024 Calcium [Mass/Vol] 9.3 mg/dL 8.5-10.[address] [facility] Serum or plasma creatinine m easurement (mass/volume)Ordered By: Campos Tomlin on 04-23-2024 Creatinine [Mass/Vol] 1.36 mg/dL High 0.55-1.02 [facility] Comment on above: The validity of the calculated GFR & GFRAA in patients over 70 years has not been determined. Clinical correlation is essential. Serum or plasma urea nitroge n measurement (mass/volume)Ordered By: Campos Tomlin on 04-23-2024 Urea nitrogen [Mass/Vol] 20 mg/dL High 7-18 [facility] Sodium levelOrdered By: Campos Tomlin on 04-23-2024 Sodium [Moles/Vol] 141 mmol/L 136-[address] [facility] Total proteinOrdered By: Enma Tomlin on 04-23-2024 Protein [Mass/Vol] 7.9 g/dL 6.4-8.[address] [facility] Urine blood detectionOrdered By: Campos Tomlin on 04-23-2024 Urine Occult Blood 10 /ul High Negative [facility] Urine clarityOrdered By: Enma Tomlin on 04-23-2024 Clarity (U) Sl. Cloudy Clear [facility] Urine color determinationOrd ered By: Campos Tomlin on 04-23-2024 Color (U) Yellow Yellow [facility] Urine leukocyte esterase det ection by dipstickOrdered By: Campos Tomlin on 04-23-2024 Leukocyte esterase Test strip Ql (U) 500 /ul High Negative [facility] Urine pHOrdered By: Campos fernandes on 04-23-2024 pH (U) 5.0 [pH] 5.0 - 8.0 [facility] Urine sediment bacteria coun t by microscopy (number/high power field)Ordered By: Campos Tomlin on 04-23-2024 Bacteria LM.HPF (Urine sed) [#/Area] 0 /[HPF] None Seen [facility] Urine specific gravity measu rementOrdered By: Campos Tomlin on 04-23-2024 Specific gravity (U) [Rel density] 1.010 1.002-1.03 0 [facility] Urobilinogen Ql (U)Ordered B y: Campos Tomlin on 04-23-2024 Urine Urobilinogen Normal mg/dl Normal [facility] White blood cell (WBC) count Ordered By: ED PROVIDER on 04-23-2024 WBC (Bld) [#/Vol] 10.4 10*3/uL 4.4-11.0 [facility] White blood cell countOrdere d By: Campos Tomlin on 04-23-2024 Urine WBC 25-50 SEEN /hpf 0-5 [facility] aPTT Coag (PPP) [Time]Ordere d By: Campos Tomlin on 04-23-2024 aPTT Coag (Bld) [Time] 27.4 s 24.1-36.2 [facility] Absolute lymphocyte countOrd ered By: Alexi Morin on 08-17-2023 Lymphocytes Auto (Unsp spec) [#/Vol] 0.94 10*3/uL 0.83-4.51 [facility] Automated lymphocyte count a s percentage of total leukocytesOrdered By: Alexi Morin on 08-17-2023 Lymphocytes/100 WBC Auto (Unsp spec) 14.1 % 19-41 [facility] Basophil percentageOrdered B y: Alexi Morin on 08-17-2023 Basophils/100 WBC (Bld) 0.4 % 0-1 [facility] Eosinophils/100 WBC (Bld) 0.0 % 0-5 [facility] Hemoglobin (Bld) [Mass/Vol] 10.1 g/dL 12.0-15.0 [facility] Monocytes/100 WBC (Bld) 3.4 % 0-10 [facility] Neutrophils (Bld) [#/Vol] 5.4 10*3/uL 2.0-7.7 [facility] Neutrophils/100 WBC (Bld) 81.4 % 47-70 [facility] WBC (Bld) [#/Vol] 6.7 10*3/uL 4.4-11.[address] [facility] Determination of erythrocyte mean corpuscular volume (MCV)Ordered By: Alexi Morin on 08-17-2023 MCV (RBC) [Entitic vol] 76.3 fL 81-99 [facility] Erythrocyte distribution wid th ratioOrdered By: [facility] on 08-17-2023 Erythrocyte distribution width (RBC) [Ratio] 17.8 % 11.6-14.6 [facility] Erythrocyte distribution wid th standard deviationOrdered By: [facility] on 08-17-2023 Erythrocyte distribution width (RBC) [Entitic vol] 49.6 fL 35.1-43.9 [facility] Hematocrit Auto (Bld) [Volum e fraction][facility] Hematocrit (Bld) [Volume fraction] 32.9 % 37-47 [facility] Immature granulocytes/100 WB C Auto (Bld)Ordered By: Alexi Mikel on 08-17-2023 Immature granulocytes/100 WBC (Bld) 0.700 % 0.0-0.9 [facility] Comment on above: IG% - Immature Granu locytes (promyelocytes, myelocytes and metamyelocytes) > 1% indicates that a LEFT SHIFT is Present. Laboratory - Hematology and Cell countsOrdered By: Alexi Morin 08-17-2023 MCH (RBC) [Entitic mass] 23.4 pg 27.0-32.0 [facility] MCHC (RBC) [Mass/Vol] 30.7 g/dL 32-36 [facility] Nucleated RBC/100 WBC (Bld) [Ratio] 0 % 0-5 [facility] Platelet mean volume (Bld) [Entitic vol] 9.7 fL 6.2-12.0 [facility] Platelets (Bld) [#/Vol] 413 10*3/uL 150-450 [facility] RBC Auto (Bld) [#/Vol]Ordere d By: Alexi Morin on 08-17-2023 RBC (Bld) [#/Vol] 4.31 10*6/uL 4.2-5.4 [facility] Stool gastrointestinal hemog lobin detection by immunologic methodOrdered By: Alexi Morin on 08-16-2023 Lower GI hemoglobin IA Ql (Stl) [facility] Absolute lymphocyte countOrd ered By: Alexi Morin on 08-15-2023 Lymphocytes Auto (Unsp spec) [#/Vol] 1.99 10*3/uL 0.83-4.51 [facility] Automated lymphocyte count a s percentage of total leukocytesOrdered By: Alexi Morin on 08-15-2023 Lymphocytes/100 WBC Auto (Unsp spec) 26.1 % 19-41 [facility] Basophil percentageOrdered B y: Alexi Morin on 08-15-2023 Basophils/100 WBC (Bld) 0.8 % 0-1 [facility] Eosinophils/100 WBC (Bld) 2.2 % 0-5 [facility] Hemoglobin (Bld) [Mass/Vol] 10.3 g/dL 12.0-15.0 [facility] Monocytes/100 WBC (Bld) 8.1 % 0-10 [facility] Neutrophils (Bld) [#/Vol] 4.8 10*3/uL 2.0-7.7 [facility] Neutrophils/100 WBC (Bld) 62.5 % 47-70 [facility] WBC (Bld) [#/Vol] 7.6 10*3/uL 4.4-11.[address] [facility] Basophil percentageOrdered B y: Ivory Abernathy on 08-15-2023 Bilirubin [Mass/Vol] 0.50 mg/dL 0.20-1.00 [facility] Comment on above: For patients on eltr ombopag therapy, use of Dimension [place] TBIL is not recommended. Cholesterol [Mass/Vol] 188 mg/dL <200 [facility] Comment on above: <200 mg/dL Desirable 200-240 mg/dL Borderline >240 mg/dL High Risk Protein [Mass/Vol] 7.3 g/dL 6.4-8.[address] [facility] Triglyceride [Mass/Vol] 97 mg/dL <199 [facility] Comment on above: The drugs N-Acetylcy steine and Metamizole may falsely depress this assay.Serum Triglycerides Reference Interval Normal <150 mg/dL Borderline high 150 - 199 mg/dL High 200 - 499 mg/dL Very High > or = 500 mg/dL Determination of erythrocyte mean corpuscular volume (MCV)Ordered By: Alexi Morin on 08-15-2023 MCV (RBC) [Entitic vol] 77.1 fL 81-99 [facility] Direct bilirubinOrdered By: Ivory Abernathy on 08-15-2023 Bilirubin.direct [Mass/Vol] 0.11 mg/dL 0.00-0.30 [facility] Erythrocyte distribution wid th ratioOrdered By: Alexi Morin on 08-15-2023 Erythrocyte distribution width (RBC) [Ratio] 18.2 % 11.6-14.6 [facility] Erythrocyte distribution wid th standard deviationOrdered By: Alexi Morin on 08-15-2023 Erythrocyte distribution width (RBC) [Entitic vol] 50.5 fL 35.1-43.9 [facility] Hematocrit Auto (Bld) [Volum e fraction]Ordered By: Alexi Morin on 08-15-2023 Hematocrit (Bld) [Volume fraction] 34.1 % 37-47 [facility] Immature granulocytes/100 WB C Auto (Bld)Ordered By: Alexi Morin 08-15-2023 Immature granulocytes/100 WBC (Bld) 0.300 % 0.0-0.9 [facility] Comment on above: IG% - Immature Granu locytes (promyelocytes, myelocytes and metamyelocytes) > 1% indicates that a LEFT SHIFT is Present. Laboratory - Chemistry and C hemistry - challengeOrdered By: Alexi Morin on 08-15-2023 CK [Catalytic activity/Vol] 77 U/L 26-192 [facility] Laboratory - Chemistry and C hemistry - challengeOrdered By: Ivory Abernathy on 08-15-2023 ALP [Catalytic activity/Vol] 109 U/L 45-117 [facility] ALT [Catalytic activity/Vol] 17 U/L 13-56 [facility] Cholesterol in HDL [Mass/Vol] 41 mg/dL >40 [facility] Comment on above: The drugs N-Acetylcy steine and Metamizole may falsely depress this assay. Reference Range HDL <40 mg/dL Low HDL Cholesterol HDL >or= 60 mg/dL High HDL Cholesterol Cholesterol in LDL [Mass/Vol] 128 mg/dL 0-130 [facility] Globulin (S) [Mass/Vol] 4.3 g/dL 2.2-4.2 [facility] Laboratory - Hematology and Cell countsOrdered By: Alexi Morin on 08-15-2023 MCH (RBC) [Entitic mass] 23.3 pg 27.0-32.0 [facility] MCHC (RBC) [Mass/Vol] 30.2 g/dL 32-36 [facility] Nucleated RBC/100 WBC (Bld) [Ratio] 0 % 0-5 [facility] Platelet mean volume (Bld) [Entitic vol] 10.2 fL 6.2-12.0 [facility] Platelets (Bld) [#/Vol] 396 10*3/uL 150-450 [facility] No Panel InformationOrdered By: Alexi Morin on 08-15-2023 Troponin I High Sensitivity 6 pg/mL 3.0-54.0 [facility] Comment on above: Please Note: New Shani t Units and Gender Specific Reference Ranges. For more information see Policy Stat Procedure [place] High Sensitivity Troponin (TNIH) and attachments. No Panel InformationOrdered By: Ivory Abernathy on 08-15-2023 VLDL Cholesterol 19 mg/dL 5-40 [facility] RBC Auto (Bld) [#/Vol]Ordere d By: Alexi Morin on 08-15-2023 RBC (Bld) [#/Vol] 4.42 10*6/uL 4.2-5.4 [facility] Serum myoglobin measurementO rdered By: Alexi Morin on 08-15-2023 Myoglobin [Mass/Vol] 41 ng/mL 25-58 [facility] Comment on above: Performed at: [address] [id number] Director: Brock Lopez PhD, Phone: [phone] Thin prep Papanicolaou smear with manual screeningOrdered By: Ivory Abernathy on 08-15-2023 Thin prep Papanicolaou smear with manual screening 3.0 g/dL 3.2-5.0 [facility] Thin prep Papanicolaou smear with manual screening 18 U/L 15-37 [facility] Absolute lymphocyte countOrd ered By: Alexi Morin on 08-14-2023 Lymphocytes Auto (Unsp spec) [#/Vol] 2.25 10*3/uL 0.83-4.51 [facility] Automated lymphocyte count a s percentage of total leukocytesOrdered By: Alexi Morin on 08-14-2023 Lymphocytes/100 WBC Auto (Unsp spec) 28.0 % 19-41 [facility] Basophil percentageOrdered B y: Alexi Morin on 08-14-2023 Basophils/100 WBC (Bld) 0.6 % 0-1 [facility] Chloride [Moles/Vol] 107 mmol/L 98-107 [facility] Eosinophils/100 WBC (Bld) 1.9 % 0-5 [facility] Glucose [Mass/Vol] 96 mg/dL 74-[address] [facility] Hemoglobin (Bld) [Mass/Vol] 9.9 g/dL 12.0-15.0 [facility] Monocytes/100 WBC (Bld) 7.1 % 0-10 [facility] Neutrophils (Bld) [#/Vol] 5.0 10*3/uL 2.0-7.7 [facility] Neutrophils/100 WBC (Bld) 62.0 % 47-70 [facility] Potassium [Moles/Vol] 3.8 mmol/L 3.5-5.1 [facility] Sodium [Moles/Vol] 140 mmol/L 136-[address] [facility] WBC (Bld) [#/Vol] 8.0 10*3/uL 4.4-11.[address] [facility] Determination of erythrocyte mean corpuscular volume (MCV)Ordered By: Alexi Morin on 08-14-2023 MCV (RBC) [Entitic vol] 76.8 fL 81-99 [facility] Erythrocyte distribution wid th ratioOrdered By: Alexi Morin on 08-14-2023 Erythrocyte distribution width (RBC) [Ratio] 18.2 % 11.6-14.6 [facility] Erythrocyte distribution wid th standard deviationOrdered By: [facility] Erythrocyte distribution width (RBC) [Entitic vol] 50.0 fL 35.1-43.9 [facility] Hematocrit Auto (Bld) [Volum e fraction]Ordered [facility]: [facility] 08-14-[facility]23 Hematocrit (Bld) [Volume fraction] 32.8 % 37-47 [facility] Immature granulocytes/100 WB C Auto (Bld)Ordered By: [facility] 08-14-2023 Immature granulocytes/100 WBC (Bld) 0.400 % 0.0-0.9 [facility] Comment on above: IG% - Immature Granu locytes (promyelocytes, myelocytes and metamyelocytes) > 1% indicates that a LEFT SHIFT is Present. Laboratory - Chemistry and C hemistry - challengeOrdered By: [facility] 08-14-2023 CK [Catalytic activity/Vol] 71 U/L 26-192 [facility] CO2 [Moles/Vol] 28.0 mmol/L 21.0-32.0 [facility] Natriuretic peptide B (Bld) [Mass/Vol] 152.2 pg/mL 0-100 [facility] Urea nitrogen/Creatinine [Mass ratio] 17.1 mg/mg 10-20 [facility] Laboratory - Hematology and Cell countsOrdered By: [facility] 08-14-2023 MCH (RBC) [Entitic mass] 23.2 pg 27.0-32.0 [facility] MCHC (RBC) [Mass/Vol] 30.2 g/dL 32-36 [facility] Nucleated RBC/100 WBC (Bld) [Ratio] 0 % 0-5 [facility] Platelet mean volume (Bld) [Entitic vol] 10.1 fL 6.2-12.0 [facility] Platelets (Bld) [#/Vol] 391 10*3/uL 150-450 [facility] No Panel InformationOrdered By: Alexi Morin on 08-14-2023 D-Dimer Quantitative (PE/DVT) 1.15 FEU/ug/m 0.27-0.49 [facility] Comment on above: D-Dimer ELEVATED (>0 .49): Additional studies and clinicalassessments are indicated to conclude diagnosis of:Deep Vein Thrombosis (DVT) or Pulmonary Embolism (PE)CRITICAL VALUE VERIFIED. CALLED TO DR. MORIN08/14/23 [id number] Eva Perez.RESULTS READ BACK BY SAME . Estimated GFR (MDRD) Amer 61 mL/min >60 [facility] Comment on above: GFR Calc Estimated GFR (MDRD) Non-Af Amer 51 mL/min >60 [facility] Comment on above: Non- GFR Calc Troponin I High Sensitivity 5 pg/mL 3.0-54.0 [facility] Comment on above: Please Note: New Shani t Units and Gender Specific Reference Ranges. For more information see Policy Stat Procedure [place] High Sensitivity Troponin (TNIH) and attachments. RBC Auto (Bld) [#/Vol]Ordere d By: Alexi Morin on 08-14-2023 RBC (Bld) [#/Vol] 4.27 10*6/uL 4.2-5.4 [facility] Serum myoglobin measurementO rdered By: Alexi Morin on 08-14-2023 Myoglobin [Mass/Vol] 45 ng/mL 25-58 [facility] Comment on above: Performed at: [address] [id number] Director: Brock Lopez PhD, Phone: [phone] Serum or plasma calcium lauren urement (mass/volume)Ordered By: Alexi Morin on 08-14-2023 Calcium [Mass/Vol] 9.3 mg/dL 8.5-10.[address] [facility] Serum or plasma creatinine m easurement (mass/volume)Ordered By: Alexi Morin on 08-14-2023 Creatinine [Mass/Vol] 1.11 mg/dL 0.55-1.02 [facility] Comment on above: The validity of the calculated GFR & GFRAA in patients over 70 years has not been determined. Clinical correlation is essential. Serum or plasma urea nitroge n measurement (mass/volume)Ordered By: Alexi Morin on 08-14-2023 Urea nitrogen [Mass/Vol] 19 mg/dL 7-18 [facility] Thin prep Papanicolaou smear with manual screeningOrdered By: Alexi Morin on 08-14-2023 Thin prep Papanicolaou smear with manual screening 5 5-15 [facility] Basophil percentageOrdered B y: Ember Lan on 07-02-2023 Bilirubin [Mass/Vol] 0.40 mg/dL 0.20-1.00 [facility] Comment on above: For patients on eltr ombopag therapy, use of Dimension [place] TBIL is not recommended. Protein [Mass/Vol] 7.2 g/dL 6.4-8.[address] [facility] Direct bilirubinOrdered By: Ember Lan on 07-02-2023 Bilirubin.direct [Mass/Vol] 0.14 mg/dL 0.00-0.30 [facility] Laboratory - Chemistry and C hemistry - challengeOrdered By: Ember Lan on 07-02-2023 ALP [Catalytic activity/Vol] 100 U/L 45-117 [facility] ALT [Catalytic activity/Vol] 17 U/L 13-56 [facility] Globulin (S) [Mass/Vol] 4.3 g/dL 2.2-4.2 [facility] No Panel InformationOrdered By: Ember Lan on 07-02-2023 Free Triiodothyronine (T3) pg/dL 2.3 pg/mL 2.18-3.98 [facility] Serum or plasma thyroid stim ulating hormone (TSH) measurement (units/volume)Ordered By: Ember Lan on 07-02-2023 TSH Qn 1.79 uIU/mL 0.358-3.74 [facility] Thin prep Papanicolaou smear with manual screeningOrdered By: Ember Lan on 07-02-2023 Thin prep Papanicolaou smear with manual screening 2.9 g/dL 3.2-5.0 [facility] Thin prep Papanicolaou smear with manual screening 16 U/L 15-37 [facility] Thin prep Papanicolaou smear with manual screening 1.20 ng/dL 0.76-1.46 [facility] Absolute lymphocyte countOrd ered By: Alexi Morin on 06-19-2023 Lymphocytes Auto (Unsp spec) [#/Vol] 1.65 10*3/uL 0.83-4.51 [facility] Automated lymphocyte count a s percentage of total leukocytesOrdered By: Alexi Morin on 06-19-2023 Lymphocytes/100 WBC Auto (Unsp spec) 20.9 % 19-41 [facility] Basophil percentageOrdered B y: Alexi Morin on 06-19-2023 Basophils/100 WBC (Bld) 0.8 % 0-1 [facility] Bilirubin [Mass/Vol] 0.40 mg/dL 0.20-1.00 [facility] Comment on above: For patients on eltr ombopag therapy, use of Dimension [place] TBIL is not recommended. Chloride [Moles/Vol] 109 mmol/L 98-107 [facility] Eosinophils/100 WBC (Bld) 1.9 % 0-5 [facility] Glucose [Mass/Vol] 103 mg/dL 74-[address] [facility] Comment on above: Fasting Glucose resu lt from 100 to 125 mg/dL suggests IMPAIRED HOMEOSTASIS per A.D.A. criteria. Hemoglobin (Bld) [Mass/Vol] 10.8 g/dL 12.0-15.0 [facility] Monocytes/100 WBC (Bld) 7.7 % 0-10 [facility] Neutrophils (Bld) [#/Vol] 5.4 10*3/uL 2.0-7.7 [facility] Neutrophils/100 WBC (Bld) 68.3 % 47-70 [facility] Potassium [Moles/Vol] 3.9 mmol/L 3.5-5.1 [facility] Protein [Mass/Vol] 7.4 g/dL 6.4-8.[address] [facility] Sodium [Moles/Vol] 139 mmol/L 136-[address] [facility] WBC (Bld) [#/Vol] 7.9 10*3/uL 4.4-11.[address] [facility] Determination of erythrocyte mean corpuscular volume (MCV)Ordered By: Alexi Morin on 06-19-2023 MCV (RBC) [Entitic vol] 76.6 fL 81-99 [facility] Erythrocyte distribution wid th ratioOrdered By: [facility] on 06-19-2023 Erythrocyte distribution width (RBC) [Ratio] 17.3 % 11.6-14.6 [facility] Erythrocyte distribution wid th standard deviationOrdered By: [facility] on 06-19-2023 Erythrocyte distribution width (RBC) [Entitic vol] 47.7 fL 35.1-43.9 [facility] Hematocrit Auto (Bld) [Volum e fraction]Ordered By: [facility] on 06-19-2023 Hematocrit (Bld) [Volume fraction] 35.4 % 37-47 [facility] Immature granulocytes/100 WB C Auto (Bld)Ordered By: [facility] 06-19-2023 Immature granulocytes/100 WBC (Bld) 0.400 % 0.0-0.9 [facility] Comment on above: IG% - Immature Granu locytes (promyelocytes, myelocytes and metamyelocytes) > 1% indicates that a LEFT SHIFT is Present. Laboratory - Chemistry and C hemistry - challengeOrdered By: [facility] 06-19-2023 Albumin/Globulin [Mass ratio] 0.7 {ratio} 0.9-2.4 [facility] ALP [Catalytic activity/Vol] 100 U/L 45-117 [facility] ALT [Catalytic activity/Vol] 19 U/L 13-56 [facility] CO2 [Moles/Vol] 23.0 mmol/L 21.0-32.0 [facility] Globulin (S) [Mass/Vol] 4.3 g/dL 2.2-4.2 [facility] Urea nitrogen/Creatinine [Mass ratio] 17.4 mg/mg 10-20 [facility] Laboratory - Hematology and Cell countsOrdered By: [facility] 06-19-2023 MCH (RBC) [Entitic mass] 23.4 pg 27.0-32.0 [facility] MCHC (RBC) [Mass/Vol] 30.5 g/dL 32-36 [facility] Nucleated RBC/100 WBC (Bld) [Ratio] 0 % 0-5 [facility] Platelet mean volume (Bld) [Entitic vol] 9.8 fL 6.2-12.0 [facility] Platelets (Bld) [#/Vol] 398 10*3/uL 150-450 [facility] No Panel InformationOrdered By: Alexi Morin on 06-19-2023 Estimated GFR (MDRD) Amer 59 mL/min >60 [facility] Comment on above: GFR Calc Estimated GFR (MDRD) Non-Af Amer 49 mL/min >60 [facility] Comment on above: Non- GFR Calc Vitamin D 25-Hydroxy 43.2 ng/mL [facility] Comment on above: Vitamin D 25(OH) Sta tus Range Deficiency <20 ng/mL (50nmol/L) Insufficiency 20 - 30 ng/mL (50 - 75 nmol/L) Sufficiency 30 - 100 ng/mL (75 - 250 nmol/L) Toxicity >100 ng/mL (>250 nmol/L) RBC Auto (Bld) [#/Vol]Ordere d By: Alexi Morin on 06-19-2023 RBC (Bld) [#/Vol] 4.62 10*6/uL 4.2-5.4 [facility] Serum or plasma calcium lauren urement (mass/volume)Ordered By: Alexi Morin on 06-19-2023 Calcium [Mass/Vol] 9.2 mg/dL 8.5-10.[address] [facility] Serum or plasma creatinine m easurement (mass/volume)Ordered By: Alexi Morin 06-19-2023 Creatinine [Mass/Vol] 1.15 mg/dL 0.55-1.02 [facility] Comment on above: The validity of the calculated GFR & GFRAA in patients over 70 years has not been determined. Clinical correlation is essential. Serum or plasma thyroid stim ulating hormone (TSH) measurement (units/volume)Ordered By: Alexi Morin on 06-19-2023 TSH Qn 1.57 uIU/mL 0.358-3.74 [facility] Serum or plasma urea nitroge n measurement (mass/volume)Ordered By: Alexi Morin 06-19-2023 Urea nitrogen [Mass/Vol] 20 mg/dL 7-18 [facility] Thin prep Papanicolaou smear with manual screeningOrdered By: Alexi Morin 06-19-2023 Thin prep Papanicolaou smear with manual screening 3.1 g/dL 3.2-5.0 [facility] Thin prep Papanicolaou smear with manual screening 17 U/L 15-37 [facility] Thin prep Papanicolaou smear with manual screening 7 5-15 [facility] Laboratory - Microbiology an d Antimicrobial susceptibilityOrdered By: Alexi Morin on 2023 SARS-CoV-2 (COVID-19) RNA KENYA+probe Ql (Unsp spec) [facility] Basophil percentageOrdered B y: Ember Lan on 05-03-2023 WBC (Bld) [#/Vol] 11.0 10*3/uL 4.4-11.0 [facility] Blood erythrocytes count (nu mber/volume)Ordered By: Ember Lan on 05-03-2023 RBC (Bld) [#/Vol] 4.33 10*6/uL 4.2-5.4 [facility] Blood hemoglobin measurement (mass/volume)Ordered By: Ember Lan on 05-03-2023 Hemoglobin (Bld) [Mass/Vol] 10.7 g/dL 12.0-15.0 [facility] Blood platelet mean volumeOr dered By: Ember Lan on 05-03-2023 Platelet mean volume (Bld) [Entitic vol] 9.8 fL 6.2-12.0 [facility] Determination of erythrocyte mean corpuscular volume (MCV)Ordered By: Ember Lan on 05-03-2023 MCV (RBC) [Entitic vol] 76.7 fL 81-99 [facility] Hematocrit Auto (Bld) [Volum e fraction]Ordered By: Ember Lan on 05-03-2023 Hematocrit (Bld) [Volume fraction] 33.2 % 37-47 [facility] Laboratory - Hematology and Cell countsOrdered By: Ember Lan on 05-03-2023 Erythrocyte distribution width (RBC) [Entitic vol] 42.8 fL 35.1-43.9 [facility] Erythrocyte distribution width (RBC) [Ratio] 15.3 % 11.6-14.6 [facility] MCH (RBC) [Entitic mass] 24.7 pg 27.0-32.0 [facility] MCHC Auto (RBC) [Mass/Vol]Or dered By: Emberjennifer Lan on 05-03-2023 MCHC (RBC) [Mass/Vol] 32.2 g/dL 32-36 [facility] Platelets bldOrdered By: Santosh staples Edyat on 05-03-2023 Platelets (Bld) [#/Vol] 447 10*3/uL 150-450 [facility] Absolute lymphocyte countOrd ered By: Jung Fontaine on 04-22-2023 Lymphocytes Auto (Unsp spec) [#/Vol] 1.07 10*3/uL 0.83-4.51 [facility] Basophil percentageOrdered B y: Jung Fontaine on 04-22-2023 Basophils/100 WBC (Bld) 0.4 % 0-1 [facility] Chloride [Moles/Vol] 108 mmol/L 98-107 [facility] Eosinophils/100 WBC (Bld) 1.4 % 0-5 [facility] Glucose [Mass/Vol] 116 mg/dL 74-[address] [facility] Comment on above: Fasting Glucose resu lt from 100 to 125 mg/dL suggests IMPAIRED HOMEOSTASIS per A.D.A. criteria. Neutrophils (Bld) [#/Vol] 5.2 10*3/uL 2.0-7.7 [facility] Neutrophils/100 WBC (Bld) 73.4 % 47-70 [facility] Potassium [Moles/Vol] 3.7 mmol/L 3.5-5.1 [facility] Sodium [Moles/Vol] 140 mmol/L 136-[address] [facility] WBC (Bld) [#/Vol] 7.0 10*3/uL 4.4-11.[address] [facility] Blood erythrocytes count (nu mber/volume)Ordered By: Jung Fontaine on 04-22-2023 RBC (Bld) [#/Vol] 4.44 10*6/uL 4.2-5.4 [facility] Blood hemoglobin measurement (mass/volume)Ordered By: Jung Fontaine on 04-22-2023 Hemoglobin (Bld) [Mass/Vol] 10.8 g/dL 12.0-15.0 [facility] Blood lymphocytes/100 leukoc ytesOrdered By: Jung Fontaine on 04-22-2023 Lymphocytes/100 WBC (Bld) 15.2 % 19-41 [facility] Blood monocytes/100 leukocyt esOrdered By: Jung Fontaine on 04-22-2023 Monocytes/100 WBC (Bld) 9.2 % 0-10 [facility] Blood platelet mean volumeOr dered By: Jung Fontaine on 04-22-2023 Platelet mean volume (Bld) [Entitic vol] 9.7 fL 6.2-12.0 [facility] Determination of erythrocyte mean corpuscular volume (MCV)Ordered By: Jung Fontaine on 04-22-2023 MCV (RBC) [Entitic vol] 78.2 fL 81-99 [facility] Hematocrit Auto (Bld) [Volum e fraction]Ordered By: Jung Fontaine on 04-22-2023 Hematocrit (Bld) [Volume fraction] 34.7 % 37-47 [facility] Laboratory - Chemistry and C hemistry - challengeOrdered By: Jung Fontaine on 04-22-2023 CO2 [Moles/Vol] 27.0 mmol/L 21.0-32.0 [facility] Urea nitrogen/Creatinine [Mass ratio] 13.5 mg/mg 10-20 [facility] Laboratory - Hematology and Cell countsOrdered By: Jung Fontaine on 04-22-2023 Erythrocyte distribution width (RBC) [Entitic vol] 43.8 fL 35.1-43.9 [facility] Erythrocyte distribution width (RBC) [Ratio] 15.2 % 11.6-14.6 [facility] Immature granulocytes/100 WBC (Bld) 0.400 % 0.0-0.9 [facility] Comment on above: IG% - Immature Granu locytes (promyelocytes, myelocytes and metamyelocytes) > 1% indicates that a LEFT SHIFT is Present. MCH (RBC) [Entitic mass] 24.3 pg 27.0-32.0 [facility] Nucleated RBC/100 WBC (Bld) [Ratio] 0 % 0-5 [facility] MCHC Auto (RBC) [Mass/Vol]Or dered By: Jung Fontaine on 04-22-2023 MCHC (RBC) [Mass/Vol] 31.1 g/dL 32-36 [facility] No Panel InformationOrdered By: Jung Fontaine on 04-22-2023 Estimated Creatinine Clearance Calc 31.45 ml/min [facility] Estimated GFR (MDRD) Amer 62 mL/min >60 [facility] Comment on above: GFR Calc Estimated GFR (MDRD) Non-Af Amer 51 mL/min >60 [facility] Comment on above: Non- GFR Calc Troponin I High Sensitivity 8 pg/mL 3.0-54.0 [facility] Comment on above: Please Note: New Shani t Units and Gender Specific Reference Ranges. For more information see Policy Stat Procedure [place] High Sensitivity Troponin (TNIH) and attachments. Platelets bldOrdered By: Cesar Fontaine on 04-22-2023 Platelets (Bld) [#/Vol] 338 10*3/uL 150-450 [facility] Serum or plasma calcium lauren urement (mass/volume)Ordered By: Jung Fontaine on 04-22-2023 Calcium [Mass/Vol] 10.0 mg/dL 8.5-10.[address] [facility] Serum or plasma creatinine m easurement (mass/volume)Ordered By: Jung Fontaine on 04-22-2023 Creatinine [Mass/Vol] 1.11 mg/dL 0.55-1.02 [facility] Comment on above: The validity of the calculated GFR & GFRAA in patients over 70 years has not been determined. Clinical correlation is essential. Serum or plasma urea nitroge n measurement (mass/volume)Ordered By: Jung Fontaine on 04-22-2023 Urea nitrogen [Mass/Vol] 15 mg/dL 7-18 [facility] Thin prep Papanicolaou smear with manual screeningOrdered By: Jung Fontaine on 04-22-2023 Thin prep Papanicolaou smear with manual screening 5 5-15 [facility] Blood hemoglobin measurement (mass/volume)Ordered By: Ember Lan on 04-05-2023 Hemoglobin (Bld) [Mass/Vol] 9.8 g/dL 12.0-15.0 [facility] Hematocrit Auto (Bld) [Volum e fraction]Ordered By: Ember Lan on 04-05-2023 Hematocrit (Bld) [Volume fraction] 32.6 % 37-47 [facility] Basophil percentageOrdered B y: Melody Briceno on 01-05-2023 Cholesterol [Mass/Vol] 95 mg/dL <[address] [facility] Comment on above: <200 mg/dL Desirable 200-240 mg/dL Borderline >240 mg/dL High Risk Triglyceride [Mass/Vol] 104 mg/dL <199 [facility] Comment on above: The drugs N-Acetylcy steine and Metamizole may falsely depress this assay.Serum Triglycerides Reference Interval Normal <150 mg/dL Borderline high 150 - 199 mg/dL High 200 - 499 mg/dL Very High > or = 500 mg/dL Laboratory - Chemistry and C hemistry - challengeOrdered By: Melody Briceno on 01-05-2023 ALT [Catalytic activity/Vol] 18 U/L 13-56 [facility] CK [Catalytic activity/Vol] 99 U/L 26-192 [facility] Serum or plasma cholesterol in HDL measurement (mass/volume)Ordered By: Melody Briceno on 01-05-2023 Cholesterol in HDL [Mass/Vol] 40 mg/dL >40 [facility] Comment on above: The drugs N-Acetylcy steine and Metamizole may falsely depress this assay. Reference Range HDL <40 mg/dL Low HDL Cholesterol HDL >or= 60 mg/dL High HDL Cholesterol Serum or plasma cholesterol in VLDL measurement (mass/volume)Ordered By: Melody Briceno on 01-05-2023 Cholesterol in VLDL [Mass/Vol] 21 mg/dL 5-40 [facility] Serum or plasma low density lipoprotein (LDL) cholesterol measurement (mass/volume)Ordered By: Melody Briceno on 01-05-2023 Cholesterol in LDL [Mass/Vol] 34 mg/dL 0-130 [facility] Thin prep Papanicolaou smear with manual screeningOrdered By: Melody Briceno on 01-05-2023 Thin prep Papanicolaou smear with manual screening 21 U/L 15-37 [facility] Absolute lymphocyte countOrd ered By: Alexi Morin on 12-20-2022 Lymphocytes Auto (Unsp spec) [#/Vol] 1.74 10*3/uL 0.83-4.51 [facility] Basophil percentageOrdered B y: Alexi Morin on 12-20-2022 Basophils/100 WBC (Bld) 0.5 % 0-1 [facility] Bilirubin [Mass/Vol] 0.40 mg/dL 0.20-1.00 [facility] Comment on above: For patients on eltr ombopag therapy, use of Dimension [place] TBIL is not recommended. Chloride [Moles/Vol] 108 mmol/L 98-107 [facility] Eosinophils/100 WBC (Bld) 3.1 % 0-5 [facility] Glucose [Mass/Vol] 139 mg/dL 74-[address] [facility] Comment on above: Fasting Glucose resu lt greater than or equal to 126 mg/dL suggests DIABETES MELLITUS per A.D.A. criteria. Neutrophils (Bld) [#/Vol] 4.8 10*3/uL 2.0-7.7 [facility] Neutrophils/100 WBC (Bld) 65.4 % 47-70 [facility] Potassium [Moles/Vol] 4.3 mmol/L 3.5-5.1 [facility] Protein [Mass/Vol] 7.5 g/dL 6.4-8.[address] [facility] Sodium [Moles/Vol] 140 mmol/L 136-[address] [facility] WBC (Bld) [#/Vol] 7.3 10*3/uL 4.4-11.[address] [facility] Blood erythrocytes count (nu mber/volume)Ordered By: Alexi Morin on 12-20-2022 RBC (Bld) [#/Vol] 4.33 10*6/uL 4.2-5.4 [facility] Blood hemoglobin measurement (mass/volume)Ordered By: Alexi Morin on 12-20-2022 Hemoglobin (Bld) [Mass/Vol] 11.0 g/dL 12.0-15.0 [facility] Blood lymphocytes/100 leukoc ytesOrdered By: Alexi Morin on 12-20-2022 Lymphocytes/100 WBC (Bld) 23.8 % 19-41 [facility] Blood monocytes/100 leukocyt esOrdered By: Alexi Morin on 12-20-2022 Monocytes/100 WBC (Bld) 6.8 % 0-10 [facility] Blood platelet mean volumeOr dered By: Alexi Morin on 12-20-2022 Platelet mean volume (Bld) [Entitic vol] 10.4 fL 6.2-12.0 [facility] Determination of erythrocyte mean corpuscular volume (MCV)Ordered By: Alexi Morin on 12-20-2022 MCV (RBC) [Entitic vol] 83.6 fL 81-99 [facility] Hematocrit Auto (Bld) [Volum e fraction]Ordered By: Alexi Morin on 12-20-2022 Hematocrit (Bld) [Volume fraction] 36.2 % 37-47 [facility] Laboratory - Chemistry and C hemistry - challengeOrdered [facility] ALP [Catalytic activity/Vol] 113 U/L 45-117 [facility] ALT [Catalytic activity/Vol] 18 U/L 13-56 [facility] CO2 [Moles/Vol] 27.0 mmol/L 21.0-32.0 [facility] Globulin (S) [Mass/Vol] 4.3 g/dL 2.2-4.2 [facility] Urea nitrogen/Creatinine [Mass ratio] 19.0 mg/mg 10-20 [facility] Laboratory - Hematology and Cell countsOrdered By: Alexi Morin on 12-20-2022 Erythrocyte distribution width (RBC) [Entitic vol] 47.6 fL 35.1-43.9 [facility] Erythrocyte distribution width (RBC) [Ratio] 15.7 % 11.6-14.6 [facility] Immature granulocytes/100 WBC (Bld) 0.400 % 0.0-0.9 [facility] Comment on above: IG% - Immature Granu locytes (promyelocytes, myelocytes and metamyelocytes) > 1% indicates that a LEFT SHIFT is Present. MCH (RBC) [Entitic mass] 25.4 pg 27.0-32.0 [facility] Nucleated RBC/100 WBC (Bld) [Ratio] 0 % 0-5 [facility] MCHC Auto (RBC) [Mass/Vol]Or dered By: Alexi Morin on 12-20-2022 MCHC (RBC) [Mass/Vol] 30.4 g/dL 32-36 [facility] No Panel InformationOrdered By: Alexi Morin on 12-20-2022 Estimated GFR (MDRD) Amer 66 mL/min >60 [facility] Comment on above: GFR Calc Estimated GFR (MDRD) Non-Af Amer 54 mL/min >60 [facility] Comment on above: Non- GFR Calc Thyroid Stimulating Hormone (TSH) 0.86 uIU/mL 0.358-3.74 [facility] Vitamin D 25-Hydroxy 41.6 ng/mL [facility] Comment on above: Vitamin D 25(OH) Sta tus Range Deficiency <20 ng/mL (50nmol/L) Insufficiency 20 - 30 ng/mL (50 - 75 nmol/L) Sufficiency 30 - 100 ng/mL (75 - 250 nmol/L) Toxicity >100 ng/mL (>250 nmol/L) Platelets bldOrdered By: Alexi Morin on 12-20-2022 Platelets (Bld) [#/Vol] 285 10*3/uL 150-450 [facility] Serum or plasma albumin lauren urement (mass/volume)Ordered By: Alexi Morin on 12-20-2022 Albumin [Mass/Vol] 3.2 g/dL 3.2-5.[address] [facility] Serum or plasma albumin/glob ulin mass ratioOrdered By: Alexi Morin on 12-20-2022 Albumin/Globulin [Mass ratio] 0.7 {ratio} 0.9-2.4 [facility] Serum or plasma calcium lauren urement (mass/volume)Ordered By: Alexi Morin 12-20-2022 Calcium [Mass/Vol] 9.1 mg/dL 8.5-10.[address] [facility] Serum or plasma creatinine m easurement (mass/volume)Ordered By: Alexi Morin on 12-20-2022 Creatinine [Mass/Vol] 1.05 mg/dL 0.55-1.02 [facility] Comment on above: The validity of the calculated GFR & GFRAA in patients over 70 years has not been determined. Clinical correlation is essential. Serum or plasma urea nitroge n measurement (mass/volume)Ordered By: Alexi Morin on 12-20-2022 Urea nitrogen [Mass/Vol] 20 mg/dL 7-18 [facility] Thin prep Papanicolaou smear with manual screeningOrdered By: Alexi Morin on 12-20-2022 Thin prep Papanicolaou smear with manual screening 18 U/L 15-37 [facility] Thin prep Papanicolaou smear with manual screening 5 5-15 [facility] Absolute lymphocyte countOrd ered By: Óscar Craft on 11-23-2022 Lymphocytes Auto (Unsp spec) [#/Vol] 1.37 10*3/uL 0.83-4.51 [facility] Basophil percentageOrdered B y: Óscar Craft on 11-23-2022 Basophils/100 WBC (Bld) 0.7 % 0-1 [facility] Chloride [Moles/Vol] 111 mmol/L 98-107 [facility] Eosinophils/100 WBC (Bld) 4.2 % 0-5 [facility] Glucose [Mass/Vol] 87 mg/dL 74-[address] [facility] Neutrophils (Bld) [#/Vol] 3.3 10*3/uL 2.0-7.7 [facility] Neutrophils/100 WBC (Bld) 60.0 % 47-70 [facility] Potassium [Moles/Vol] 4.0 mmol/L 3.5-5.1 [facility] Sodium [Moles/Vol] 142 mmol/L 136-[address] [facility] WBC (Bld) [#/Vol] 5.4 10*3/uL 4.4-11.[address] [facility] Blood erythrocytes count (nu mber/volume)Ordered By: Óscar Craft on 11-23-2022 RBC (Bld) [#/Vol] 3.77 10*6/uL 4.2-5.4 [facility] Blood hemoglobin measurement (mass/volume)Ordered By: Óscar Craft on 11-23-2022 Hemoglobin (Bld) [Mass/Vol] 9.8 g/dL 12.0-15.0 [facility] Blood lymphocytes/100 leukoc ytesOrdered By: Óscar Craft on 11-23-2022 Lymphocytes/100 WBC (Bld) 25.3 % 19-41 [facility] Blood monocytes/100 leukocyt esOrdered By: Óscar Craft on 11-23-2022 Monocytes/100 WBC (Bld) 9.6 % 0-10 [facility] Blood platelet mean volumeOr dered By: Óscar Craft on 11-23-2022 Platelet mean volume (Bld) [Entitic vol] 10.1 fL 6.2-12.0 [facility] Determination of erythrocyte mean corpuscular volume (MCV)Ordered By: Óscar Craft on 11-23-2022 MCV (RBC) [Entitic vol] 82.8 fL 81-99 [facility] Hematocrit Auto (Bld) [Volum e fraction]Ordered By: Óscar Craft on 11-23-2022 Hematocrit (Bld) [Volume fraction] 31.2 % 37-47 [facility] Laboratory - Chemistry and C hemistry - challengeOrdered By: Óscar Craft on 11-23-2022 CO2 [Moles/Vol] 30.0 mmol/L 21.0-32.0 [facility] Urea nitrogen/Creatinine [Mass ratio] 18.2 mg/mg 10-20 [facility] Laboratory - Hematology and Cell countsOrdered By: Óscar Craft on 11-23-2022 Erythrocyte distribution width (RBC) [Entitic vol] 49.1 fL 35.1-43.9 [facility] Erythrocyte distribution width (RBC) [Ratio] 16.2 % 11.6-14.6 [facility] Immature granulocytes/100 WBC (Bld) 0.200 % 0.0-0.9 [facility] Comment on above: IG% - Immature Granu locytes (promyelocytes, myelocytes and metamyelocytes) > 1% indicates that a LEFT SHIFT is Present. MCH (RBC) [Entitic mass] 26.0 pg 27.0-32.0 [facility] Nucleated RBC/100 WBC (Bld) [Ratio] 0 % 0-5 [facility] MCHC Auto (RBC) [Mass/Vol]Or dered By: Óscar Craft on 11-23-2022 MCHC (RBC) [Mass/Vol] 31.4 g/dL 32-36 [facility] No Panel InformationOrdered By: Óscar Craft on 11-23-2022 Estimated Creatinine Clearance Calc 42.58 ml/min [facility] Estimated GFR (MDRD) Amer 87 mL/min >60 [facility] Comment on above: GFR Calc Estimated GFR (MDRD) Non-Af Amer 72 mL/min >60 [facility] Comment on above: Non- GFR Calc Thyroid Stimulating Hormone (TSH) 1.50 uIU/mL 0.358-3.74 [facility] Platelets bldOrdered By: Milla Craft on 11-23-2022 Platelets (Bld) [#/Vol] 241 10*3/uL 150-450 [facility] Serum or plasma calcium lauren urement (mass/volume)Ordered By: Óscar Craft on 11-23-2022 Calcium [Mass/Vol] 8.5 mg/dL 8.5-10.[address] [facility] Serum or plasma creatinine m easurement (mass/volume)Ordered By: Óscar Craft on 11-23-2022 Creatinine [Mass/Vol] 0.82 mg/dL 0.55-1.02 [facility] Comment on above: The validity of the calculated GFR & GFRAA in patients over 70 years has not been determined. Clinical correlation is essential. Serum or plasma urea nitroge n measurement (mass/volume)Ordered By: Óscar Craft on 11-23-2022 Urea nitrogen [Mass/Vol] 15 mg/dL 7-18 [facility] Thin prep Papanicolaou smear with manual screeningOrdered By: Óscar Craft on 11-23-2022 Thin prep Papanicolaou smear with manual screening 1 5-15 [facility] Absolute lymphocyte countOrd ered By: Campos Tomlin on 11-22-2022 Lymphocytes Auto (Unsp spec) [#/Vol] 1.29 10*3/uL 0.83-4.51 [facility] Basophil percentageOrdered B y: Campos Tomlin on 11-22-2022 Basophil percentage 0-5 SEEN /hpf 0-5 [facility] Basophils/100 WBC (Bld) 0.7 % 0-1 [facility] Chloride [Moles/Vol] 113 mmol/L 98-107 [facility] Eosinophils/100 WBC (Bld) 2.9 % 0-5 [facility] Glucose [Mass/Vol] 139 mg/dL 74-[address] [facility] Comment on above: Fasting Glucose resu lt greater than or equal to 126 mg/dL suggests DIABETES MELLITUS per A.D.A. criteria. Neutrophils (Bld) [#/Vol] 3.4 10*3/uL 2.0-7.7 [facility] Neutrophils/100 WBC (Bld) 61.8 % 47-70 [facility] Potassium [Moles/Vol] 4.2 mmol/L 3.5-5.1 [facility] Sodium [Moles/Vol] 143 mmol/L 136-[address] [facility] WBC (Bld) [#/Vol] 5.5 10*3/uL 4.4-11.[address] [facility] Bilirubin Test strip Ql (U)O rdered By: Campos Tomlin on 11-22-2022 Bilirubin Ql (U) Negative Negative [facility] Blood erythrocytes count (nu mber/volume)Ordered By: Campos Tomlin on 11-22-2022 RBC (Bld) [#/Vol] 4.08 10*6/uL 4.2-5.4 [facility] Blood hemoglobin measurement (mass/volume)Ordered By: Campos Tomlin on 11-22-2022 Hemoglobin (Bld) [Mass/Vol] 10.3 g/dL 12.0-15.0 [facility] Blood lymphocytes/100 leukoc ytesOrdered By: Campos Tomlin on 11-22-2022 Lymphocytes/100 WBC (Bld) 23.5 % 19-41 [facility] Blood monocytes/100 leukocyt esOrdered By: Campos Tomlin on 11-22-2022 Monocytes/100 WBC (Bld) 10.6 % 0-10 [facility] Blood platelet mean volumeOr dered By: Campos Tomlin on 11-22-2022 Platelet mean volume (Bld) [Entitic vol] 9.9 fL 6.2-12.0 [facility] Determination of erythrocyte mean corpuscular volume (MCV)Ordered By: Campos Tomlin on 11-22-2022 MCV (RBC) [Entitic vol] 84.1 fL 81-99 [facility] Hematocrit Auto (Bld) [Volum e fraction]Ordered By: Campos Tomlin on 11-22-2022 Hematocrit (Bld) [Volume fraction] 34.3 % 37-47 [facility] Ketones Test strip Ql (U)Ord ered By: Campos Tomlin on 11-22-2022 Ketones Ql (U) Negative Negative [facility] Laboratory - Chemistry and C hemistry - challengeOrdered By: Campos Tomlin on 11-22-2022 CO2 [Moles/Vol] 27.0 mmol/L 21.0-32.0 [facility] Urea nitrogen/Creatinine [Mass ratio] 17.8 mg/mg 10-20 [facility] Laboratory - Hematology and Cell countsOrdered By: Campos Tomlin on 11-22-2022 Erythrocyte distribution width (RBC) [Entitic vol] 49.9 fL 35.1-43.9 [facility] Erythrocyte distribution width (RBC) [Ratio] 16.2 % 11.6-14.6 [facility] Immature granulocytes/100 WBC (Bld) 0.500 % 0.0-0.9 [facility] Comment on above: IG% - Immature Granu locytes (promyelocytes, myelocytes and metamyelocytes) > 1% indicates that a LEFT SHIFT is Present. MCH (RBC) [Entitic mass] 25.2 pg 27.0-32.0 [facility] Nucleated RBC/100 WBC (Bld) [Ratio] 0 % 0-5 [facility] MCHC Auto (RBC) [Mass/Vol]Or dered By: Campos Tomlin on 11-22-2022 MCHC (RBC) [Mass/Vol] 30.0 g/dL 32-36 [facility] Mucus LM Ql (Urine sed)Order ed By: Campos Tomlin on 11-22-2022 Mucus Ql (Urine sed) 0 SEEN /hpf [facility] Nitrite Test strip Ql (U)Ord ered By: Campos Tomlin on 11-22-2022 Nitrite Ql (U) Negative Negative [facility] No Panel InformationOrdered By: Campos Tomlin on 11-22-2022 Estimated Creatinine Clearance Calc 36.37 ml/min [facility] Estimated GFR (MDRD) Amer 73 mL/min >60 [facility] Comment on above: GFR Calc Estimated GFR (MDRD) Non-Af Amer 61 mL/min >60 [facility] Comment on above: Non- GFR Calc Platelets bldOrdered By: Enma Tomlin on 11-22-2022 Platelets (Bld) [#/Vol] 268 10*3/uL 150-450 [facility] Protein Test strip Ql (U)Ord ered By: Campos Tomlin on 11-22-2022 Protein Ql (U) 30 mg/dl Negative [facility] Serum or plasma calcium lauren urement (mass/volume)Ordered By: Campos Tomlin on 11-22-2022 Calcium [Mass/Vol] 8.7 mg/dL 8.5-10.[address] [facility] Serum or plasma creatinine m easurement (mass/volume)Ordered By: Campos Tomlin on 11-22-2022 Creatinine [Mass/Vol] 0.96 mg/dL 0.55-1.02 [facility] Comment on above: The validity of the calculated GFR & GFRAA in patients over 70 years has not been determined. Clinical correlation is essential. Serum or plasma urea nitroge n measurement (mass/volume)Ordered By: Campos Tomlin on 11-22-2022 Urea nitrogen [Mass/Vol] 17 mg/dL 7-18 [facility] Squamous epithelial cells de tection in urine sediment by light microscopyOrdered By: Campos Tomlin on 11-22-2022 Epithelial cells.squamous LM Ql (Urine sed) 0 SEEN /hpf 5-10 [facility] Thin prep Papanicolaou smear with manual screeningOrdered By: Campos Tomlin on 11-22-2022 Thin prep Papanicolaou smear with manual screening 3 5-15 [facility] Urine blood detectionOrdered By: Campos Tomlin on 11-22-2022 RBC Ql (U) 50 /ul Negative [facility] RBC Ql (U) 0-5 SEEN /hpf 0-5 [facility] Urine clarityOrdered By: Enma Tomlin on 11-22-2022 Clarity (U) Sl. Cloudy Clear [facility] Urine color determinationOrd ered By: Campos Tomlin on 11-22-2022 Color (U) Yellow Yellow [facility] Urine glucose detectionOrder ed By: Campos Tomlin on 11-22-2022 Glucose Ql (U) Normal mg/dl Normal [facility] Urine leukocyte esterase det ection by dipstickOrdered By: Campos Tomlin on 11-22-2022 Leukocyte esterase Test strip Ql (U) 25 /ul Negative [facility] Urine pHOrdered By: Campos fernandes on 11-22-2022 pH (U) 5.0 [pH] 5.0 - 8.0 [facility] Urine sediment bacteria coun t by microscopy (number/high power field)Ordered By: Campos Tomlin on 11-22-2022 Bacteria LM.HPF (Urine sed) [#/Area] 0 /[HPF] None Seen [facility] Urine specific gravity measu rementOrdered By: Campos Tomlin on 11-22-2022 Specific gravity (U) [Rel density] 1.025 1.002-1.03 0 [facility] Urobilinogen Auto test strip Ql (U)Ordered By: Campos Tomlin on 11-22-2022 Urobilinogen Ql (U) Normal mg/dl Normal [facility] Basophil percentageOrdered B y: Melody Briceno on 11-15-2022 Chloride [Moles/Vol] 109 mmol/L 98-107 [facility] Glucose [Mass/Vol] 89 mg/dL 74-[address] [facility] Potassium [Moles/Vol] 4.0 mmol/L 3.5-5.1 [facility] Sodium [Moles/Vol] 142 mmol/L 136-[address] [facility] WBC (Bld) [#/Vol] 6.6 10*3/uL 4.4-11.[address] [facility] Blood erythrocytes count (nu mber/volume)Ordered By: Melody Briceno on 11-15-2022 RBC (Bld) [#/Vol] 4.33 10*6/uL 4.2-5.4 [facility] Blood hemoglobin measurement (mass/volume)Ordered By: Melody Briceno on 11-15-2022 Hemoglobin (Bld) [Mass/Vol] 11.2 g/dL 12.0-15.0 [facility] Blood platelet mean volumeOr dered By: Melody Briceno on 11-15-2022 Platelet mean volume (Bld) [Entitic vol] 9.7 fL 6.2-12.0 [facility] Determination of erythrocyte mean corpuscular volume (MCV)Ordered By: Melody Briceno on 11-15-2022 MCV (RBC) [Entitic vol] 82.7 fL 81-99 [facility] Hematocrit Auto (Bld) [Volum e fraction]Ordered By: Melody Briceno on 11-15-2022 Hematocrit (Bld) [Volume fraction] 35.8 % 37-47 [facility] INR in Blood by Coagulation assayOrdered By: Melody Briceno on 11-15-2022 INR Coag (Bld) [Relative time] 1.3 {INR} [facility] Laboratory - Chemistry and C hemistry - challengeOrdered By: Melody Briceno on 11-15-2022 CO2 [Moles/Vol] 29.0 mmol/L 21.0-32.0 [facility] Urea nitrogen/Creatinine [Mass ratio] 16.6 mg/mg 10-20 [facility] Laboratory - CoagulationOrde red By: Melody Briceno on 11-15-2022 aPTT Coag (Bld) [Time] 37.6 s 24.1-36.2 [facility] PT Coag (PPP) [Time] 16.5 s 11.7-14.9 [facility] Laboratory - Hematology and Cell countsOrdered By: Melody Briceno on 11-15-2022 Erythrocyte distribution width (RBC) [Entitic vol] 49.9 fL 35.1-43.9 [facility] Erythrocyte distribution width (RBC) [Ratio] 16.6 % 11.6-14.6 [facility] MCH (RBC) [Entitic mass] 25.9 pg 27.0-32.0 [facility] MCHC Auto (RBC) [Mass/Vol]Or dered By: Melody Briceno on 11-15-2022 MCHC (RBC) [Mass/Vol] 31.3 g/dL 32-36 [facility] No Panel InformationOrdered By: Melody Briceno on 11-15-2022 Estimated GFR (MDRD) Amer 78 mL/min >60 [facility] Comment on above: GFR Calc Estimated GFR (MDRD) Non-Af Amer 64 mL/min >60 [facility] Comment on above: Non- GFR Calc Platelets bldOrdered By: Fawad Briceno on 11-15-2022 Platelets (Bld) [#/Vol] 333 10*3/uL 150-450 [facility] Serum or plasma calcium lauren urement (mass/volume)Ordered By: Melody Briceno on 11-15-2022 Calcium [Mass/Vol] 9.4 mg/dL 8.5-10.[address] [facility] Serum or plasma creatinine m easurement (mass/volume)Ordered By: Melody Briceno on 11-15-2022 Creatinine [Mass/Vol] 0.90 mg/dL 0.55-1.02 [facility] Comment on above: The validity of the calculated GFR & GFRAA in patients over 70 years has not been determined. Clinical correlation is essential. Serum or plasma urea nitroge n measurement (mass/volume)Ordered By: Melody Briceno on 11-15-2022 Urea nitrogen [Mass/Vol] 15 mg/dL 7-18 [facility] Thin prep Papanicolaou smear with manual screeningOrdered By: Melody Briceno on 11-15-2022 Thin prep Papanicolaou smear with manual screening 4 5-15 [facility] Culture, urineOrdered By: Solitario Morin on 10-30-2022 Bacteria identified Cx Nom (U) Klebsiella pneumoniae sp pneum [facility] Basophil percentageOrdered B y: Alexi Morin on 10-18-2022 Chloride [Moles/Vol] 104 mmol/L 98-107 [facility] Glucose [Mass/Vol] 124 mg/dL 74-[address] [facility] Comment on above: Fasting Glucose resu lt from 100 to 125 mg/dL suggests IMPAIRED HOMEOSTASIS per A.D.A. criteria. Potassium [Moles/Vol] 3.7 mmol/L 3.5-5.1 [facility] Sodium [Moles/Vol] 139 mmol/L 136-[address] [facility] Laboratory - Chemistry and C hemistry - challengeOrdered By: Alexi Morin on 10-18-2022 CO2 [Moles/Vol] 32.0 mmol/L 21.0-32.0 [facility] Urea nitrogen/Creatinine [Mass ratio] 22.7 mg/mg 10-20 [facility] No Panel InformationOrdered By: Alexi Morin on 10-18-2022 Estimated GFR (MDRD) Amer 62 mL/min >60 [facility] Comment on above: GFR Calc Estimated GFR (MDRD) Non-Af Amer 51 mL/min >60 [facility] Comment on above: Non- GFR Calc Serum or plasma calcium lauren urement (mass/volume)Ordered By: Alexi Morin on 10-18-2022 Calcium [Mass/Vol] 9.0 mg/dL 8.5-10.[address] [facility] Serum or plasma creatinine m easurement (mass/volume)Ordered By: Alexi Morin on 10-18-2022 Creatinine [Mass/Vol] 1.10 mg/dL 0.55-1.02 [facility] Comment on above: The validity of the calculated GFR & GFRAA in patients over 70 years has not been determined. Clinical correlation is essential. Serum or plasma urea nitroge n measurement (mass/volume)Ordered By: Alexi Morin on 10-18-2022 Urea nitrogen [Mass/Vol] 25 mg/dL 7-18 [facility] Thin prep Papanicolaou smear with manual screeningOrdered By: Alexi Morin on 10-18-2022 Thin prep Papanicolaou smear with manual screening 3 5-15 [facility] Absolute lymphocyte countOrd ered By: Dr. Albarran on 10-09-2022 Lymphocytes Auto (Unsp spec) [#/Vol] 2.03 10*3/uL 0.83-4.51 [facility] Basophil percentageOrdered B y: Dr. Albarran on 10-09-2022 Basophils/100 WBC (Bld) 0.8 % 0-1 [facility] Chloride [Moles/Vol] 109 mmol/L 98-107 [facility] Eosinophils/100 WBC (Bld) 3.3 % 0-5 [facility] Glucose [Mass/Vol] 128 mg/dL 74-[address] [facility] Comment on above: Fasting Glucose resu lt greater than or equal to 126 mg/dL suggests DIABETES MELLITUS per A.D.A. criteria. Neutrophils (Bld) [#/Vol] 5.9 10*3/uL 2.0-7.7 [facility] Neutrophils/100 WBC (Bld) 64.4 % 47-70 [facility] Potassium [Moles/Vol] 4.0 mmol/L 3.5-5.1 [facility] Sodium [Moles/Vol] 141 mmol/L 136-[address] [facility] WBC (Bld) [#/Vol] 9.2 10*3/uL 4.4-11.[address] [facility] Blood erythrocytes count (nu mber/volume)Ordered By: Dr. Albarran on 10-09-2022 RBC (Bld) [#/Vol] 4.40 10*6/uL 4.2-5.4 [facility] Blood hemoglobin measurement (mass/volume)Ordered By: Dr. Albarran on 10-09-2022 Hemoglobin (Bld) [Mass/Vol] 11.1 g/dL 12.0-15.0 [facility] Blood lymphocytes/100 leukoc ytesOrdered By: Dr. Albarran on 10-09-2022 Lymphocytes/100 WBC (Bld) 22.1 % 19-41 [facility] Blood monocytes/100 leukocyt esOrdered By: Dr. Albarran on 10-09-2022 Monocytes/100 WBC (Bld) 9.2 % 0-10 [facility] Blood platelet mean volumeOr dered By: Dr. Albarran on 10-09-2022 Platelet mean volume (Bld) [Entitic vol] 10.4 fL 6.2-12.0 [facility] Determination of erythrocyte mean corpuscular volume (MCV)Ordered By: Dr. Albarran on 10-09-2022 MCV (RBC) [Entitic vol] 80.5 fL 81-99 [facility] Hematocrit Auto (Bld) [Volum e fraction]Ordered By: Dr. Albarran on 10-09-2022 Hematocrit (Bld) [Volume fraction] 35.4 % 37-47 [facility] Laboratory - Chemistry and C hemistry - challengeOrdered By: Dr. Albarran on 10-09-2022 CO2 [Moles/Vol] 25.0 mmol/L 21.0-32.0 [facility] Natriuretic peptide B (Bld) [Mass/Vol] 172.7 pg/mL 0-100 [facility] Urea nitrogen/Creatinine [Mass ratio] 20.2 mg/mg 10-20 [facility] Laboratory - Hematology and Cell countsOrdered By: Dr. Albarran on 10-09-2022 Erythrocyte distribution width (RBC) [Entitic vol] 49.0 fL 35.1-43.9 [facility] Erythrocyte distribution width (RBC) [Ratio] 16.8 % 11.6-14.6 [facility] Immature granulocytes/100 WBC (Bld) 0.200 % 0.0-0.9 [facility] Comment on above: IG% - Immature Granu locytes (promyelocytes, myelocytes and metamyelocytes) > 1% indicates that a LEFT SHIFT is Present. MCH (RBC) [Entitic mass] 25.2 pg 27.0-32.0 [facility] Nucleated RBC/100 WBC (Bld) [Ratio] 0 % 0-5 [facility] MCHC Auto (RBC) [Mass/Vol]Or dered By: Dr. Albarran on 10-09-2022 MCHC (RBC) [Mass/Vol] 31.4 g/dL 32-36 [facility] No Panel InformationOrdered By: Dr. Albarran on 10-09-2022 Troponin I High Sensitivity 6 pg/mL 3.0-54.0 [facility] Comment on above: Please Note: New Shani t Units and Gender Specific Reference Ranges. For more information see Policy Stat Procedure [place] High Sensitivity Troponin (TNIH) and attachments. Estimated Creatinine Clearance Calc 33.57 ml/min [facility] Estimated GFR (MDRD) Amer 66 mL/min >60 [facility] Comment on above: GFR Calc Estimated GFR (MDRD) Non-Af Amer 55 mL/min >60 [facility] Comment on above: Non- GFR Calc Platelets bldOrdered By: Dr. Albarran on 10-09-2022 Platelets (Bld) [#/Vol] 312 10*3/uL 150-450 [facility] Serum or plasma calcium lauren urement (mass/volume)Ordered By: Dr. Albarran on 10-09-2022 Calcium [Mass/Vol] 9.7 mg/dL 8.5-10.[address] [facility] Serum or plasma creatinine m easurement (mass/volume)Ordered By: Dr. Albarran on 10-09-2022 Creatinine [Mass/Vol] 1.04 mg/dL 0.55-1.02 [facility] Comment on above: The validity of the calculated GFR & GFRAA in patients over 70 years has not been determined. Clinical correlation is essential. Serum or plasma urea nitroge n measurement (mass/volume)Ordered By: Dr. Albarran on 10-09-2022 Urea nitrogen [Mass/Vol] 21 mg/dL 7-18 [facility] Thin prep Papanicolaou smear with manual screeningOrdered By: Dr. Albarran on 10-09-2022 Thin prep Papanicolaou smear with manual screening 7 5-15 [facility] Culture, urineOrdered By: Dr Davis Morin on 09-23-2022 Bacteria identified Cx Nom (U) Citrobacter freundii [facility] Bacteria identified Cx Nom (U) Klebsiella pneumoniae sp pneum [facility] Culture, urineOrdered By: Solitario Morin on 09-20-2022 Bacteria identified Cx Nom (U) Citrobacter freundii [facility] Bacteria identified Cx Nom (U) Klebsiella pneumoniae sp pneum [facility] Culture, urineOrdered By: Dr Davis Morin on 07-15-2022 Bacteria identified Cx Nom (U) Positive [facility] Culture, urineOrdered By: Solitario Morin on 07-13-2022 Bacteria identified Cx Nom (U) Positive [facility] Absolute lymphocyte countOrd ered By: Ivory Abernathy on 07-06-2022 Lymphocytes Auto (Unsp spec) [#/Vol] 1.52 10*3/uL 0.83-4.51 [facility] Basophil percentageOrdered B y: Ivory Abernathy on 07-06-2022 Basophils/100 WBC (Bld) 0.7 % 0-1 [facility] Chloride [Moles/Vol] 104 mmol/L 98-107 [facility] Eosinophils/100 WBC (Bld) 3.8 % 0-5 [facility] Glucose [Mass/Vol] 95 mg/dL 74-[address] [facility] Neutrophils (Bld) [#/Vol] 4.8 10*3/uL 2.0-7.7 [facility] Neutrophils/100 WBC (Bld) 63.9 % 47-70 [facility] Potassium [Moles/Vol] 4.5 mmol/L 3.5-5.1 [facility] Sodium [Moles/Vol] 137 mmol/L 136-[address] [facility] WBC (Bld) [#/Vol] 7.5 10*3/uL 4.4-11.[address] [facility] Blood erythrocytes count (nu mber/volume)Ordered By: Ivory Abernathy on 07-06-2022 RBC (Bld) [#/Vol] 4.78 10*6/uL 4.2-5.4 [facility] Blood hemoglobin measurement (mass/volume)Ordered By: Ivory Abernathy on 07-06-2022 Hemoglobin (Bld) [Mass/Vol] 12.4 g/dL 12.0-15.0 [facility] Blood lymphocytes/100 leukoc ytesOrdered By: Ivory Abernathy on 07-06-2022 Lymphocytes/100 WBC (Bld) 20.2 % 19-41 [facility] Blood monocytes/100 leukocyt esOrdered By: Ivory Abernathy on 07-06-2022 Monocytes/100 WBC (Bld) 11.1 % 0-10 [facility] Blood platelet mean volumeOr dered By: Ivory Abernathy on 07-06-2022 Platelet mean volume (Bld) [Entitic vol] 9.7 fL 6.2-12.0 [facility] Determination of erythrocyte mean corpuscular volume (MCV)Ordered By: Ivory Abernathy on 07-06-2022 MCV (RBC) [Entitic vol] 82.8 fL 81-99 [facility] Hematocrit Auto (Bld) [Volum e fraction]Ordered By: Ivory Abernathy on 07-06-2022 Hematocrit (Bld) [Volume fraction] 39.6 % 37-47 [facility] Laboratory - Chemistry and C hemistry - challengeOrdered By: Ivory Abernathy on 07-06-2022 CO2 [Moles/Vol] 27.0 mmol/L 21.0-32.0 [facility] Free T4 [Mass/Vol] 1.14 ng/dL 0.76-1.[address] [facility] Natriuretic peptide B (Bld) [Mass/Vol] 100.7 pg/mL 0-100 [facility] Urea nitrogen/Creatinine [Mass ratio] 15.0 mg/mg 10-20 [facility] Laboratory - Hematology and Cell countsOrdered By: Ivory Abernathy on 07-06-2022 Erythrocyte distribution width (RBC) [Entitic vol] 44.2 fL 35.1-43.9 [facility] Erythrocyte distribution width (RBC) [Ratio] 14.6 % 11.6-14.6 [facility] Immature granulocytes/100 WBC (Bld) 0.300 % 0.0-0.9 [facility] Comment on above: IG% - Immature Granu locytes (promyelocytes, myelocytes and metamyelocytes) > 1% indicates that a LEFT SHIFT is Present. MCH (RBC) [Entitic mass] 25.9 pg 27.0-32.0 [facility] Nucleated RBC/100 WBC (Bld) [Ratio] 0 % 0-5 [facility] MCHC Auto (RBC) [Mass/Vol]Or dered By: Ivory Abernathy on 07-06-2022 MCHC (RBC) [Mass/Vol] 31.3 g/dL 32-36 [facility] No Panel InformationOrdered By: Ivory Abernathy on 07-06-2022 Estimated GFR (MDRD) Amer 56 mL/min >60 [facility] Comment on above: GFR Calc Estimated GFR (MDRD) Non-Af Amer 47 mL/min >60 [facility] Comment on above: Non- GFR Calc Free Triiodothyronine (T3) pg/dL 2.7 pg/mL 2.18-3.98 [facility] Thyroid Stimulating Hormone (TSH) 1.08 uIU/mL 0.358-3.74 [facility] Platelets bldOrdered By: Dale Abernathy on 07-06-2022 Platelets (Bld) [#/Vol] 389 10*3/uL 150-450 [facility] Serum or plasma calcium lauren urement (mass/volume)Ordered By: Ivory Abernathy on 07-06-2022 Calcium [Mass/Vol] 9.8 mg/dL 8.5-10.[address] [facility] Serum or plasma creatinine m easurement (mass/volume)Ordered By: Ivory Abernathy on 07-06-2022 Creatinine [Mass/Vol] 1.20 mg/dL 0.55-1.02 [facility] Comment on above: The validity of the calculated GFR & GFRAA in patients over 70 years has not been determined. Clinical correlation is essential. Serum or plasma urea nitroge n measurement (mass/volume)Ordered By: Ivory Abernathy on 07-06-2022 Urea nitrogen [Mass/Vol] 18 mg/dL 7-18 [facility] Thin prep Papanicolaou smear with manual screeningOrdered By: Ivory Abernathy on 07-06-2022 Thin prep Papanicolaou smear with manual screening 6 5-15 [facility] Absolute lymphocyte countOrd ered By: Dr. Morin on 06-14-2022 Lymphocytes Auto (Unsp spec) [#/Vol] 1.23 10*3/uL 0.83-4.51 [facility] Basophil percentageOrdered B y: Dr. Morin on 06-14-2022 Basophils/100 WBC (Bld) 0.8 % 0-1 [facility] Bilirubin [Mass/Vol] 0.40 mg/dL 0.20-1.00 [facility] Comment on above: For patients on eltr ombopag therapy, use of Dimension [place] TBIL is not recommended. Chloride [Moles/Vol] 106 mmol/L 98-107 [facility] Eosinophils/100 WBC (Bld) 2.6 % 0-5 [facility] Glucose [Mass/Vol] 120 mg/dL 74-[address] [facility] Comment on above: Fasting Glucose resu lt from 100 to 125 mg/dL suggests IMPAIRED HOMEOSTASIS per A.D.A. criteria. Neutrophils (Bld) [#/Vol] 4.0 10*3/uL 2.0-7.7 [facility] Neutrophils/100 WBC (Bld) 65.6 % 47-70 [facility] Potassium [Moles/Vol] 4.1 mmol/L 3.5-5.1 [facility] Protein [Mass/Vol] 7.4 g/dL 6.4-8.[address] [facility] Sodium [Moles/Vol] 140 mmol/L 136-[address] [facility] WBC (Bld) [#/Vol] 6.1 10*3/uL 4.4-11.[address] [facility] Blood erythrocytes count (nu mber/volume)Ordered By: Dr. Morin on 06-14-2022 RBC (Bld) [#/Vol] 4.22 10*6/uL 4.2-5.4 [facility] Blood hemoglobin measurement (mass/volume)Ordered By: Dr. Morin on 06-14-2022 Hemoglobin (Bld) [Mass/Vol] 11.0 g/dL 12.0-15.0 [facility] Blood lymphocytes/100 leukoc ytesOrdered By: Dr. Morin on 06-14-2022 Lymphocytes/100 WBC (Bld) 20.2 % 19-41 [facility] Blood monocytes/100 leukocyt esOrdered By: Dr. Morin on 06-14-2022 Monocytes/100 WBC (Bld) 10.3 % 0-10 [facility] Blood platelet mean volumeOr dered By: Dr. Morin on 06-14-2022 Platelet mean volume (Bld) [Entitic vol] 9.8 fL 6.2-12.0 [facility] Determination of erythrocyte mean corpuscular volume (MCV)Ordered By: Dr. Morin on 06-14-2022 MCV (RBC) [Entitic vol] 82.5 fL 81-99 [facility] Hematocrit Auto (Bld) [Volum e fraction]Ordered By: Dr. Morin on 06-14-2022 Hematocrit (Bld) [Volume fraction] 34.8 % 37-47 [facility] Laboratory - Chemistry and C hemistry - challengeOrdered By: Dr. Morin on 06-14-2022 ALP [Catalytic activity/Vol] 86 U/L 45-117 [facility] ALT [Catalytic activity/Vol] 13 U/L 13-56 [facility] CO2 [Moles/Vol] 26.0 mmol/L 21.0-32.0 [facility] Globulin (S) [Mass/Vol] 4.2 g/dL 2.2-4.2 [facility] Urea nitrogen/Creatinine [Mass ratio] 15.3 mg/mg 10-20 [facility] Laboratory - Hematology and Cell countsOrdered By: Dr. Morin on 06-14-2022 Erythrocyte distribution width (RBC) [Entitic vol] 48.4 fL 35.1-43.9 [facility] Erythrocyte distribution width (RBC) [Ratio] 15.9 % 11.6-14.6 [facility] Immature granulocytes/100 WBC (Bld) 0.500 % 0.0-0.9 [facility] Comment on above: IG% - Immature Granu locytes (promyelocytes, myelocytes and metamyelocytes) > 1% indicates that a LEFT SHIFT is Present. MCH (RBC) [Entitic mass] 26.1 pg 27.0-32.0 [facility] Nucleated RBC/100 WBC (Bld) [Ratio] 0 % 0-5 [facility] Auto (RBC) [Mass/Vol]Or dered By: Dr. Morin on 06-14-2022 MCHC (RBC) [Mass/Vol] 31.6 g/dL 32-36 [facility] No Panel InformationOrdered By: Dr. Morin on 06-14-2022 Estimated GFR (MDRD) Amer 62 mL/min >60 [facility] Comment on above: GFR Calc Estimated GFR (MDRD) Non-Af Amer 51 mL/min >60 [facility] Comment on above: Non- GFR Calc Thyroid Stimulating Hormone (TSH) 0.89 uIU/mL 0.358-3.74 [facility] Vitamin D 25-Hydroxy 35.6 ng/mL [facility] Comment on above: Vitamin D 25(OH) Sta tus Range Deficiency <20 ng/mL (50nmol/L) Insufficiency 20 - 30 ng/mL (50 - 75 nmol/L) Sufficiency 30 - 100 ng/mL (75 - 250 nmol/L) Toxicity >100 ng/mL (>250 nmol/L) Platelets bldOrdered By: Dr. Morin on 06-14-2022 Platelets (Bld) [#/Vol] 345 10*3/uL 150-450 [facility] Serum or plasma albumin lauren urement (mass/volume)Ordered By: Dr. Morin on 06-14-2022 Albumin [Mass/Vol] 3.2 g/dL 3.2-5.[address] [facility] Serum or plasma albumin/glob ulin mass ratioOrdered By: Dr. Morin on 06-14-2022 Albumin/Globulin [Mass ratio] 0.8 {ratio} 0.9-2.4 [facility] Serum or plasma calcium lauren urement (mass/volume)Ordered By: Dr. Morin on 06-14-2022 Calcium [Mass/Vol] 9.4 mg/dL 8.5-10.[address] [facility] Serum or plasma creatinine m easurement (mass/volume)Ordered By: Dr. Morin on 06-14-2022 Creatinine [Mass/Vol] 1.11 mg/dL 0.55-1.02 [facility] Comment on above: The validity of the calculated GFR & GFRAA in patients over 70 years has not been determined. Clinical correlation is essential. Serum or plasma urea nitroge n measurement (mass/volume)Ordered By: Dr. Morin on 06-14-2022 Urea nitrogen [Mass/Vol] 17 mg/dL 7-18 [facility] Thin prep Papanicolaou smear with manual screeningOrdered By: Dr. Morin on 06-14-2022 Thin prep Papanicolaou smear with manual screening 19 U/L 15-37 [facility] Thin prep Papanicolaou smear with manual screening 8 5-15 [facility] Basophil percentageOrdered B y: Dr. Morin on 05-11-2022 Basophil percentage 2.7 mg/dL 2.5-4.9 [facility] Chloride [Moles/Vol] 105 mmol/L 98-107 [facility] Glucose [Mass/Vol] 89 mg/dL 74-[address] [facility] Potassium [Moles/Vol] 4.3 mmol/L 3.5-5.1 [facility] Sodium [Moles/Vol] 140 mmol/L 136-[address] [facility] Laboratory - Chemistry and C hemistry - challengeOrdered By: Dr. Morin on 05-11-2022 CO2 [Moles/Vol] 29.0 mmol/L 21.0-32.0 [facility] Magnesium [Mass/Vol] 2.5 mg/dL 1.6-2.6 [facility] Urea nitrogen/Creatinine [Mass ratio] 24.8 mg/mg 10-20 [facility] No Panel InformationOrdered By: Dr. Morin on 05-11-2022 Estimated GFR (MDRD) Amer 66 mL/min >60 [facility] Comment on above: GFR Calc Estimated GFR (MDRD) Non-Af Amer 54 mL/min >60 [facility] Comment on above: Non- GFR Calc Serum or plasma calcium lauren urement (mass/volume)Ordered By: Dr. Morin on 05-11-2022 Calcium [Mass/Vol] 9.0 mg/dL 8.5-10.[address] [facility] Serum or plasma creatinine m easurement (mass/volume)Ordered By: Dr. Morin on 05-11-2022 Creatinine [Mass/Vol] 1.05 mg/dL 0.55-1.02 [facility] Comment on above: The validity of the calculated GFR & GFRAA in patients over 70 years has not been determined. Clinical correlation is essential. Serum or plasma urea nitroge n measurement (mass/volume)Ordered By: Dr. Morin on 05-11-2022 Urea nitrogen [Mass/Vol] 26 mg/dL 7-18 [facility] Thin prep Papanicolaou smear with manual screeningOrdered By: Dr. Morin on 05-11-2022 Thin prep Papanicolaou smear with manual screening 6 5-15 [facility] Culture, urineOrdered By: Dr Davis Morin on 05-03-2022 Bacteria identified Cx Nom (U) Klebsiella pneumoniae sp pneum [facility] Urine Cultureon 05-03-2022 URC Normal [facility] Comment on above: Performed By: #### M 100.2200 ####[facility] [address] [place], [address] SCRN MAMM (CAD)W/RONALD BILATo n 04-13-2022 SCRN MAMM (CAD)W/RONALD BILAT Normal [facility] COVID 19, KENYA [facility](RT COLLECT )on 03-29-2022 SARS-CoV-2 (COVID-19) RNA KENYA+probe Ql (Unsp spec) Detected Normal Not Detect [facility] Comment on above: Result Comment: Norm al Reference Range: Not DetectedMethod:(RT-PCR) real-time reverse transcriptase PCRLuminex OBED Instrument*The Food and Drug Administration (FDA) has issued anEmergency Use Authorization (EAU) for the OBED [id number] for the rapid detection of the virus that causesCOVID-19. This test has been validated, but the FDAsindependent review of this validation is pending.*Negative results do not preclude infection and should notbe used as the sole basis for treatment or patientmanagement. Optimum specimen types and timing for peakviral levels during infections caused by SARS-CoV-2 have notbeen determined. Collection of multiple specimens from thesame patient may be necessary to detect the virus. Thepossibility of a false negative result should be consideredif the patient has clinical presentation or has had recentexposure. Performed By: #### M 100.6601, L3400.2405, M101.0101 ####[facility] [id number], [address] Influenza A+B (Rapid YFN)on 03-29-2022 FLU Normal [facility] Comment on above: Performed By: #### M 100.6601, L3400.2405, M101.0101 ####[facility] [address] [place], [place], [address] Laboratory - Microbiology an d Antimicrobial susceptibilityOrdered By: Dr. Morin on 03-29-2022 SARS-CoV-2 (COVID-19) RNA KENYA+probe Ql (Unsp spec) Detected Not Detect [facility] Comment on above: Normal Reference Ran ge: Not DetectedMethod:(RT-PCR) real-time reverse transcriptase PCRLuminex OBED Instrument*The Food and Drug Administration (FDA) has issued an Emergency Use Authorization (EAU) for the OBED SARS-CoV-2 Assay for the rapid detection of the virus that causes COVID-19. This test has been validated, but the FDAs independent review of this validation is pending.*Negative results do not preclude infection and should not be used as the sole basis for treatment or patient management. Optimum specimen types and timing for peak viral levels during infections caused by SARS-CoV-2 have not been determined. Collection of multiple specimens from the same patient may be necessary to detect the virus. The possibility of a false negative result should be considered if the patient has clinical presentation or has had recent exposure. No Panel InformationOrdered By: Dr. Morin on 03-29-2022 Influenza Types A,B Direct FA (SANTOSH) [facility] RSV Ag (Rapid YFN)on 022 RSV Ag (YFN) Normal Reference Ran ge: Negative Elisa, YFN method RSV Ag NEGATIVE Normal [facility] Comment on above: Performed By: #### M 100.6601, L3400.2405, M101.0101 ####[facility] [address] [place], [place], [id number] RSV Ag EIAOrdered By: Dr. Jane degroot on 03-29-2022 RSV Ag Immune stain Ql (Tiss) [facility] Cardiology Visit Reporton Cardiology Visit Report Normal [facility] Discharge Instructionon 12-0 Discharge Instruction Normal [facility] EGD Reporton 03-25-2022 EGD Report Normal [facility] Special Stain Group IIon Special Stain Group II Normal [facility] Comment on above: Performed By: #### P SSII ####[facility] [address] [place], [address] 12 Lead EKGon 03-24-2022 12 Lead EKG Normal [facility] Absolute lymphocyte countOrd ered By: Dr. Mccormick on 03-24-2022 Lymphocytes Auto (Unsp spec) [#/Vol] 1.87 10*3/uL 0.83-4.51 [facility] BNP,B-Type NATRIURETIC PEPTI [employer] 03-24-2022 Natriuretic peptide B (Bld) [Mass/Vol] 173.2 pg/mL High 0-100 [facility] Comment on above: Performed By: #### L 503.6620, L501.5425, L100.0100, L501.5200, L500.2500 ####[facility] [address] [place], [place], [id number] Basic Metabolic Profile (BMP )on 03-24-2022 BUN/CRE 23.4 RATIO High 10-20 [facility] Comment on above: Performed By: #### L 100.0100, L500.4100, L500.2500 ####[facility] [address] [place], [place], [id number] CA,Total 8.8 mg/dL Normal 8.5-10.1 [facility] Comment on above: Performed By: #### L 100.0100, L500.4100, L500.2500 ####[facility] [address] [place], [address] Chloride [Moles/Vol] 111 mmol/L High 98-107 [facility] Comment on above: Performed By: #### L 100.0100, L500.4100, L500.2500 ####[facility] [address] [place], [address] CO2 [Moles/Vol] 25.0 mmol/L Normal 21.0-32.0 [facility] Comment on above: Performed By: #### L 100.0100, L500.4100, L500.2500 ####[facility] [address] [place], [address] Creatinine [Mass/Vol] 0.81 mg/dL Normal 0.55-1.02 [facility] Comment on above: Result Comment: The validity of the calculated GFR GFRAA in patients over70 years has not been determined. Clinical correlation isessential. Performed By: #### L 100.0100, L500.4100, L500.2500 ####[facility] [address] [place], [address] ECRCL 43.77 ml/min Normal [facility] Comment on above: Performed By: #### L 100.0100, L500.4100, L500.2500 ####[facility] [address] [place], [address] EST GFR - AA 88 mL/min Normal >60 [facility] Comment on above: Result Comment: Afri can [place] GFR Calc Performed By: #### L 100.0100, L500.4100, L500.2500 ####[facility] [address] [place], [address] GAP 6 Normal 5-15 [facility] Comment on above: Performed By: #### L 100.0100, L500.4100, L500.2500 ####[facility] [address] [place], [address] GFR/1.73 sq M.predicted among non-blacks MDRD (S/P/Bld) [Vol rate/Area] 73 mL/min/{1.73_m2} Normal >60 [facility] Comment on above: Result Comment: Non- GFR Calc Performed By: #### L 100.0100, L500.4100, L500.2500 ####[facility] [address] [place], [address] Glucose [Mass/Vol] 94 mg/dL Normal 74-[address] [facility] Comment on above: Performed By: #### L 100.0100, L500.4100, L500.2500 ####[facility] [address] [place], [address] Potassium [Moles/Vol] 3.9 mmol/L Normal 3.5-5.1 [facility] Comment on above: Performed By: #### L 100.0100, L500.4100, L500.2500 ####[facility] [address] [place], [address] Sodium [Moles/Vol] 142 mmol/L Normal 136-[address] [facility] Comment on above: Performed By: #### L 100.0100, L500.4100, L500.2500 ####[facility] [address] [place], [address] Urea nitrogen [Mass/Vol] 19 mg/dL High 7-18 [facility] Comment on above: Performed By: #### L 100.0100, L500.4100, L500.2500 ####[facility] [address] [place], [address] BUN/CRE 22.1 RATIO High 10-20 [facility] Comment on above: Order Comment: 1Y Performed By: #### L 503.6620, L501.5425, L100.0100, L501.5200, L500.2500 ####[facility] [address] [place], [address] CA,Total 9.5 mg/dL Normal 8.5-10.1 [facility] Comment on above: Order Comment: 1Y Performed By: #### L 503.6620, L501.5425, L100.0100, L501.5200, L500.2500 ####[facility] [address] [place], [address] Chloride [Moles/Vol] 109 mmol/L High 98-107 [facility] Comment on above: Order Comment: 1Y Performed By: #### L 503.6620, L501.5425, L100.0100, L501.5200, L500.2500 ####[facility] [address] [place], [address] CO2 [Moles/Vol] 28.0 mmol/L Normal 21.0-32.0 [facility] Comment on above: Order Comment: 1Y Performed By: #### L 503.6620, L501.5425, L100.0100, L501.5200, L500.2500 ####[facility] [address] [place], [address] Creatinine [Mass/Vol] 0.95 mg/dL Normal 0.55-1.02 [facility] Comment on above: Order Comment: 1Y Result Comment: The validity of the calculated GFR GFRAA in patients over70 years has not been determined. Clinical correlation isessential. Performed By: #### L 503.6620, L501.5425, L100.0100, L501.5200, L500.2500 ####[facility] [address] [place], [address] ECRCL 37.32 ml/min Normal [facility] Comment on above: Order Comment: 1Y Performed By: #### L 503.6620, L501.5425, L100.0100, L501.5200, L500.2500 ####[facility] [address] [place], [address] EST GFR - AA 74 mL/min Normal >60 [facility] Comment on above: Order Comment: 1Y Result Comment: Afri can [place] GFR Calc Performed By: #### L 503.6620, L501.5425, L100.0100, L501.5200, L500.2500 ####[facility] [address] [place], [address] GAP 4 Low 5-15 [facility] Comment on above: Order Comment: 1Y Performed By: #### L 503.6620, L501.5425, L100.0100, L501.5200, L500.2500 ####[facility] [address] [place], [address] GFR/1.73 sq M.predicted among non-blacks MDRD (S/P/Bld) [Vol rate/Area] 61 mL/min/{1.73_m2} Normal >60 [facility] Comment on above: Order Comment: 1Y Result Comment: Non- GFR Calc Performed By: #### L 503.6620, L501.5425, L100.0100, L501.5200, L500.2500 ####[facility] [address] [place], [address] Glucose [Mass/Vol] 96 mg/dL Normal 74-[address] [facility] Comment on above: Order Comment: 1Y Performed By: #### L 503.6620, L501.5425, L100.0100, L501.5200, L500.2500 ####[facility] [address] [place], [address] Potassium [Moles/Vol] 4.4 mmol/L Normal 3.5-5.1 [facility] Comment on above: Order Comment: 1Y Result Comment: Mode rate Hemolysis, Result may be falsely increased. Performed By: #### L 503.6620, L501.5425, L100.0100, L501.5200, L500.2500 ####[facility] [address] [place], [address] Sodium [Moles/Vol] 141 mmol/L Normal 136-[address] [facility] Comment on above: Order Comment: 1Y Performed By: #### L 503.6620, L501.5425, L100.0100, L501.5200, L500.2500 ####[facility] [address] [place], [address] Urea nitrogen [Mass/Vol] 21 mg/dL High 7-18 [facility] Comment on above: Order Comment: 1Y Performed By: #### L 503.6620, L501.5425, L100.0100, L501.5200, L500.2500 ####[facility] [address], [address] Basophil percentageOrdered B y: Dr. Mccormick on 03-24-2022 Basophils/100 WBC (Bld) 0.5 % 0-1 [facility] Chloride [Moles/Vol] 111 mmol/L 98-107 [facility] Cholesterol [Mass/Vol] 109 mg/dL <[address] [facility] Comment on above: <200 mg/dL Desirable 200-240 mg/dL Borderline >240 mg/dL High Risk Eosinophils/100 WBC (Bld) 3.6 % 0-5 [facility] Glucose [Mass/Vol] 94 mg/dL 74-[address] [facility] Neutrophils (Bld) [#/Vol] 3.6 10*3/uL 2.0-7.7 [facility] Neutrophils/100 WBC (Bld) 57.4 % 47-70 [facility] Potassium [Moles/Vol] 3.9 mmol/L 3.5-5.1 [facility] Sodium [Moles/Vol] 142 mmol/L 136-[address] [facility] Triglyceride [Mass/Vol] 75 mg/dL <199 [facility] Comment on above: The drugs N-Acetylcy steine and Metamizole may falsely depress this assay.Serum Triglycerides Reference Interval Normal <150 mg/dL Borderline high 150 - 199 mg/dL High 200 - 499 mg/dL Very High > or = 500 mg/dL WBC (Bld) [#/Vol] 6.3 10*3/uL 4.4-11.[address] [facility] Blood erythrocytes count (nu mber/volume)Ordered By: Dr. Mccormick on 03-24-2022 RBC (Bld) [#/Vol] 3.93 10*6/uL 4.2-5.4 [facility] Blood hemoglobin measurement (mass/volume)Ordered By: Dr. Mccormick on 03-24-2022 Hemoglobin (Bld) [Mass/Vol] 10.2 g/dL 12.0-15.0 [facility] Blood lymphocytes/100 leukoc ytesOrdered By: Dr. Mccormick on 03-24-2022 Lymphocytes/100 WBC (Bld) 29.6 % 19-41 [facility] Blood monocytes/100 leukocyt esOrdered By: Dr. Mccormick on 03-24-2022 Monocytes/100 WBC (Bld) 8.7 % 0-10 [facility] Blood platelet mean volumeOr dered By: Dr. Mccormick on 03-24-2022 Platelet mean volume (Bld) [Entitic vol] 9.7 fL 6.2-12.0 [facility] CBC W/Diff, Automatedon 0 Absolute Lymph 1.87 X10 3/uL Normal 0.83-4.51 [facility] Comment on above: Performed By: #### L 100.0100, L500.4100, L500.2500 ####[facility] [address] [place], [address] Absolute Neut 3.6 X10 3/uL Normal 2.0-7.7 [facility] Comment on above: Performed By: #### L 100.0100, L500.4100, L500.2500 ####[facility] [address] [place], [address] Basophils/100 WBC (Bld) 0.5 % Normal 0-1 [facility] Comment on above: Performed By: #### L 100.0100, L500.4100, L500.2500 ####[facility] [address] [place], [address] Eosinophils/100 WBC (Bld) 3.6 % Normal 0-5 [facility] Comment on above: Performed By: #### L 100.0100, L500.4100, L500.2500 ####[facility] [address] [place], [address] Erythrocyte distribution width (RBC) [Ratio] 14.9 % High 11.6-14.6 [facility] Comment on above: Performed By: #### L 100.0100, L500.4100, L500.2500 ####[facility] [address] [place], [address] Hematocrit (Bld) [Volume fraction] 32.2 % Low 37-47 [facility] Comment on above: Performed By: #### L 100.0100, L500.4100, L500.2500 ####[facility] [address] [place], [address] Hemoglobin (Bld) [Mass/Vol] 10.2 g/dL Low 12.0-15.0 [facility] Comment on above: Performed By: #### L 100.0100, L500.4100, L500.2500 ####[facility] [address] [place], [address] IG% 0.200 Normal 0.0-0.9 [facility] Comment on above: Result Comment: IG% - Immature Granulocytes (promyelocytes, myelocytes andmetamyelocytes) > 1% indicates that a LEFT SHIFT is Present. Performed By: #### L 100.0100, L500.4100, L500.2500 ####[facility] [address] [place], [address] Lymphocytes/100 WBC (Bld) 29.6 % Normal 19-41 [facility] Comment on above: Performed By: #### L 100.0100, L500.4100, L500.2500 ####[facility] [address] [place], [address] MCH (RBC) [Entitic mass] 26.0 pg Low 27.0-32.0 [facility] Comment on above: Performed By: #### L 100.0100, L500.4100, L500.2500 ####[facility] [address] [place], [address] MCHC (RBC) [Mass/Vol] 31.7 g/dL Low 32-36 [facility] Comment on above: Performed By: #### L 100.0100, L500.4100, L500.2500 ####[facility] [address] [place], [address] MCV (RBC) [Entitic vol] 81.9 fL Normal 81-99 [facility] Comment on above: Performed By: #### L 100.0100, L500.4100, L500.2500 ####[facility] [address] [place], [address] Monocytes/100 WBC (Bld) 8.7 % Normal 0-10 [facility] Comment on above: Performed By: #### L 100.0100, L500.4100, L500.2500 ####[facility] [address] [place], [address] Neutrophils/100 WBC (Bld) 57.4 % Normal 47-70 [facility] Comment on above: Performed By: #### L 100.0100, L500.4100, L500.2500 ####[facility] [address] [place], [address] Nucleated RBC (Bld) [#/Vol] 0 10*3/uL Normal 0-5 [facility] Comment on above: Performed By: #### L 100.0100, L500.4100, L500.2500 ####[facility] [address] [place], [address] Platelet mean volume (Bld) [Entitic vol] 9.7 fL Normal 6.2-12.0 [facility] Comment on above: Performed By: #### L 100.0100, L500.4100, L500.2500 ####[facility] [address] [place], [address] Platelets (Bld) [#/Vol] 268 10*3/uL Normal 150-450 [facility] Comment on above: Performed By: #### L 100.0100, L500.4100, L500.2500 ####[facility] [address] [place], [address] RBC (Bld) [#/Vol] 3.93 10*6/uL Low 4.2-5.4 [facility] Comment on above: Performed By: #### L 100.0100, L500.4100, L500.2500 ####[facility] [address] [place], [address] RDW SD 44.7 fl High 35.1-43.9 [facility] Comment on above: Performed By: #### L 100.0100, L500.4100, L500.2500 ####[facility] [address] [place], [address] WBC (Bld) [#/Vol] 6.3 10*3/uL Normal 4.4-11.[address] [facility] Comment on above: Performed By: #### L 100.0100, L500.4100, L500.2500 ####[facility] [address] [place], [address] Absolute Lymph 1.98 X10 3/uL Normal 0.83-4.51 [facility] Comment on above: Performed By: #### L 503.6620, L501.5425, L100.0100, L501.5200, L500.2500 ####[facility] [address] [place], [address] Absolute Neut 4.0 X10 3/uL Normal 2.0-7.7 [facility] Comment on above: Performed By: #### L 503.6620, L501.5425, L100.0100, L501.5200, L500.2500 ####[facility] [address] [place], [address] Basophils/100 WBC (Bld) 0.7 % Normal 0-1 [facility] Comment on above: Performed By: #### L 503.6620, L501.5425, L100.0100, L501.5200, L500.2500 ####[facility] [address] [place], [address] Eosinophils/100 WBC (Bld) 3.4 % Normal 0-5 [facility] Comment on above: Performed By: #### L 503.6620, L501.5425, L100.0100, L501.5200, L500.2500 ####[facility] [address] [place], [address] Erythrocyte distribution width (RBC) [Ratio] 14.9 % High 11.6-14.6 [facility] Comment on above: Performed By: #### L 503.6620, L501.5425, L100.0100, L501.5200, L500.2500 ####[facility] [address] [place], [address] Hematocrit (Bld) [Volume fraction] 34.9 % Low 37-47 [facility] Comment on above: Performed By: #### L 503.6620, L501.5425, L100.0100, L501.5200, L500.2500 ####[facility] [address] [place], [address] Hemoglobin (Bld) [Mass/Vol] 11.1 g/dL Low 12.0-15.0 [facility] Comment on above: Performed By: #### L 503.6620, L501.5425, L100.0100, L501.5200, L500.2500 ####[facility] [address] [place], [address] IG% 0.300 Normal 0.0-0.9 [facility] Comment on above: Result Comment: IG% - Immature Granulocytes (promyelocytes, myelocytes andmetamyelocytes) > 1% indicates that a LEFT SHIFT is Present. Performed By: #### L 503.6620, L501.5425, L100.0100, L501.5200, L500.2500 ####[facility] [address] [place], [address] Lymphocytes/100 WBC (Bld) 29.2 % Normal 19-41 [facility] Comment on above: Performed By: #### L 503.6620, L501.5425, L100.0100, L501.5200, L500.2500 ####[facility] [address] [place], [address] MCH (RBC) [Entitic mass] 25.8 pg Low 27.0-32.0 [facility] Comment on above: Performed By: #### L 503.6620, L501.5425, L100.0100, L501.5200, L500.2500 ####[facility] [address] [place], [address] MCHC (RBC) [Mass/Vol] 31.8 g/dL Low 32-36 [facility] Comment on above: Performed By: #### L 503.6620, L501.5425, L100.0100, L501.5200, L500.2500 ####[facility] [address] [place], [address] MCV (RBC) [Entitic vol] 81.0 fL Normal 81-99 [facility] Comment on above: Performed By: #### L 503.6620, L501.5425, L100.0100, L501.5200, L500.2500 ####[facility] [address] [place], [address] Monocytes/100 WBC (Bld) 7.7 % Normal 0-10 [facility] Comment on above: Performed By: #### L 503.6620, L501.5425, L100.0100, L501.5200, L500.2500 ####[facility] [address] [place], [address] Neutrophils/100 WBC (Bld) 58.7 % Normal 47-70 [facility] Comment on above: Performed By: #### L 503.6620, L501.5425, L100.0100, L501.5200, L500.2500 ####[facility] [address] [place], [address] Nucleated RBC (Bld) [#/Vol] 0 10*3/uL Normal 0-5 [facility] Comment on above: Performed By: #### L 503.6620, L501.5425, L100.0100, L501.5200, L500.2500 ####[facility] [address] [place], [address] Platelet mean volume (Bld) [Entitic vol] 10.0 fL Normal 6.2-12.0 [facility] Comment on above: Performed By: #### L 503.6620, L501.5425, L100.0100, L501.5200, L500.2500 ####[facility] [address] [place], [address] Platelets (Bld) [#/Vol] 294 10*3/uL Normal 150-450 [facility] Comment on above: Performed By: #### L 503.6620, L501.5425, L100.0100, L501.5200, L500.2500 ####[facility] [address] [place], [address] RBC (Bld) [#/Vol] 4.31 10*6/uL Normal 4.2-5.4 [facility] Comment on above: Performed By: #### L 503.6620, L501.5425, L100.0100, L501.5200, L500.2500 ####[facility] [address] [place], [address] RDW SD 43.8 fl Normal 35.1-43.9 [facility] Comment on above: Performed By: #### L 503.6620, L501.5425, L100.0100, L501.5200, L500.2500 ####[facility] [address] [place], [address] WBC (Bld) [#/Vol] 6.8 10*3/uL Normal 4.4-11.[address] [facility] Comment on above: Performed By: #### L 503.6620, L501.5425, L100.0100, L501.5200, L500.2500 ####[facility] [address] [place], [address] CTA Chest W/WO Contraston CTA Chest W/WO Contrast Normal [facility] Chest 1 View (Portable)on Chest 1 View (Portable) Normal [facility] Consultation - Cardiologyon 03-24-2022 Consultation - Cardiology Normal [facility] Determination of erythrocyte mean corpuscular volume (MCV)Ordered By: Dr. Mccormick on 03-24-2022 MCV (RBC) [Entitic vol] 81.9 fL 81-99 [facility] Emergency Department Summary on 03-24-2022 Emergency Department Summary Normal [facility] Ferritinon 03-24-2022 Ferritin [Mass/Vol] 21 ng/mL Normal 8-252 [facility] Comment on above: Performed By: #### L 5036550, L503.6030 ####[facility] [address] [place], [address] H AND P Exam - Hospitaliston 03-24-2022 H&P Exam - Hospitalist Normal [facility] Hematocrit Auto (Bld) [Volum e fraction]Ordered By: Dr. Mccormick on 03-24-2022 Hematocrit (Bld) [Volume fraction] 32.2 % 37-47 [facility] Influenza virus A and B and SARS-CoV-2 (COVID-19) Ag panel - Upper respiratory specimOrdered By: Dr. Julien on 03-24-2022 SARS-CoV-2 (COVID-19) RNA KENYA+probe Ql (Resp) [facility] Iron measurement (mass/mass) Ordered By: Dr. Vidal on 03-24-2022 Iron (Unsp spec) [Mass/Mass] 36 ug/dL 50-170 [facility] Comment on above: Slight Hemolysis, Re sult may be falsely increased. Iron+Iron Binding Capacityon 03-24-2022 Iron [Mass/Vol] 36 ug/dL Low 50-170 [facility] Comment on above: Result Comment: Slig ht Hemolysis, Result may be falsely increased. Performed By: #### L 5036550, L503.6030 ####[facility] [address] [place], [address] IRON SATURATION 11.9 Low 15.0-55.0 [facility] Comment on above: Performed By: #### L 5036550, L503.6030 ####[facility] [address] [place], [address] TIBC 302 ug/dL Normal 250-450 [facility] Comment on above: Performed By: #### L 503.6550, L503.6030 ####[facility] [address] [place], [address] L501.4020on 03-24-2022 TROPONIN-I HS 10 pg/mL Normal 3.0-54.0 [facility] Comment on above: Order Comment: Comme nts: SPECIMEN #3'TROP' Serial specimen #1, #2 or #3: 3 Result Comment: Plea se Note: New Test Units and Gender Specific Reference Ranges. For more information see Policy Stat Procedure [place] High Sensitivity Troponin (TNIH) and attachments. Performed By: #### L 501.4020 ####[facility] [address] [place], [address] TROPONIN-I HS 10 pg/mL Normal 3.0-54.0 [facility] Comment on above: Order Comment: WAS T O BE DRAWN IN ER BUT WAS NEVER COLLECTED. PT SENT TOFLOOR WITHOUT NOTIFICATION THAT BLOOD STILL NEEDEDCOLLECTED. DRAWN LATE- LBURLEY 0200 Result Comment: Plea se Note: New Test Units and Gender Specific Reference Ranges. For more information see Policy Stat Procedure [place] High Sensitivity Troponin (TNIH) and attachments. Performed By: #### L 501.4020 ####[facility] [address] [place], [address] L501.5425on 03-24-2022 TROPONIN-I HS 8 pg/mL Normal 3.0-54.0 [facility] Comment on above: Order Comment: 1Y Result Comment: Plea se Note: New Test Units and Gender Specific Reference Ranges. For more information see Policy Stat Procedure [place] High Sensitivity Troponin (TNIH) and attachments. Performed By: #### L 503.6620, L501.5425, L100.0100, L501.5200, L500.2500 ####[facility] [address] [place], [address] Laboratory - Chemistry and C hemistry - challengeOrdered By: Dr. Mccormick on 03-24-2022 CO2 [Moles/Vol] 25.0 mmol/L 21.0-32.0 [facility] Urea nitrogen/Creatinine [Mass ratio] 23.4 mg/mg 10-20 [facility] Laboratory - Hematology and Cell countsOrdered By: Dr. Mccormick on 03-24-2022 Erythrocyte distribution width (RBC) [Entitic vol] 44.7 fL 35.1-43.9 [facility] Erythrocyte distribution width (RBC) [Ratio] 14.9 % 11.6-14.6 [facility] Immature granulocytes/100 WBC (Bld) 0.200 % 0.0-0.9 [facility] Comment on above: IG% - Immature Granu locytes (promyelocytes, myelocytes and metamyelocytes) > 1% indicates that a LEFT SHIFT is Present. MCH (RBC) [Entitic mass] 26.0 pg 27.0-32.0 [facility] Nucleated RBC/100 WBC (Bld) [Ratio] 0 % 0-5 [facility] Lipid Profileon 03-24-2022 Cholesterol [Mass/Vol] 109 mg/dL Normal 200 [facility] Comment on above: Result Comment: <200 mg/dL Desirable 200-240 mg/dL Borderline >240 mg/dL High Risk Performed By: #### L 100.0100, L500.4100, L500.2500 ####[facility] [address] [facility] [place], [address] Cholesterol in HDL [Mass/Vol] 35 mg/dL Low [facility] Comment on above: Result Comment: The drugs N-Acetylcysteine and Metamizole may falselydepress this assay. Reference Range HDL <40 mg/dL Low HDL Cholesterol HDL >or= 60 mg/dL High HDL Cholesterol Performed By: #### L 100.0100, L500.4100, L500.2500 ####[facility] [address] [place], [address] Cholesterol in LDL [Mass/Vol] 59 mg/dL Normal 0-130 [facility] Comment on above: Performed By: #### L 100.0100, L500.4100, L500.2500 ####[facility] [address] [place], [address] Cholesterol in VLDL [Mass/Vol] 15 mg/dL Normal 5-40 [facility] Comment on above: Performed By: #### L 100.0100, L500.4100, L500.2500 ####[facility] [address] [place], [address] Triglyceride [Mass/Vol] 75 mg/dL Normal [facility] Comment on above: Result Comment: The drugs N-Acetylcysteine and Metamizole may falselydepress this assay.Serum Triglycerides Reference Interval Normal <150 mg/dL Borderline high 150 - 199 mg/dL High 200 - 499 mg/dL Very High > or = 500 mg/dL Performed By: #### L 100.0100, L500.4100, L500.2500 ####[facility] [address] [place], [address] M101.0111on 03-24-2022 M101.0111 Normal [facility] Comment on above: Performed By: #### M 101.0111 ####[facility] [address] [place], [address] MCHC Auto (RBC) [Mass/Vol]Or dered By: Dr. Mccormick on 03-24-2022 MCHC (RBC) [Mass/Vol] 31.7 g/dL 32-36 [facility] Magnesiumon 03-24-2022 Magnesium [Mass/Vol] 2.4 mg/dL Normal 1.6-2.6 [facility] Comment on above: Order Comment: 1Y Result Comment: Mode rate Hemolysis, Result may be falsely increased. Performed By: #### L 503.6620, L501.5425, L100.0100, L501.5200, L500.2500 ####[facility] [address] [place], [address] No Panel InformationOrdered By: Dr. Mccormick on 03-24-2022 Estimated Creatinine Clearance Calc 43.77 ml/min [facility] Estimated GFR (MDRD) Amer 88 mL/min >60 [facility] Comment on above: GFR Calc Estimated GFR (MDRD) Non-Af Amer 73 mL/min >60 [facility] Comment on above: Non- GFR Calc Troponin I High Sensitivity 10 pg/mL 3.0-54.0 [facility] Comment on above: Please Note: New Shani t Units and Gender Specific Reference Ranges. For more information see Policy Stat Procedure [place] High Sensitivity Troponin (TNIH) and attachments. No Panel InformationOrdered By: Dr. Vidal on 03-24-2022 Total Iron Binding Capacity 302 ug/dL 250-450 [facility] Platelets bldOrdered By: Dr. Mccormick on 03-24-2022 Platelets (Bld) [#/Vol] 268 10*3/uL 150-450 [facility] Serum or plasma calcium lauren urement (mass/volume)Ordered By: Dr. Mccormick on 03-24-2022 Calcium [Mass/Vol] 8.8 mg/dL 8.5-10.[address] [facility] Serum or plasma cholesterol in HDL measurement (mass/volume)Ordered By: Dr. Mccormick on 03-24-2022 Cholesterol in HDL [Mass/Vol] 35 mg/dL >40 [facility] Comment on above: The drugs N-Acetylcy steine and Metamizole may falsely depress this assay. Reference Range HDL <40 mg/dL Low HDL Cholesterol HDL >or= 60 mg/dL High HDL Cholesterol Serum or plasma cholesterol in VLDL measurement (mass/volume)Ordered By: Dr. Mccormick on 03-24-2022 Cholesterol in VLDL [Mass/Vol] 15 mg/dL 5-40 [facility] Serum or plasma creatinine m easurement (mass/volume)Ordered By: Dr. Mccormick on 03-24-2022 Creatinine [Mass/Vol] 0.81 mg/dL 0.55-1.02 [facility] Comment on above: The validity of the calculated GFR & GFRAA in patients over 70 years has not been determined. Clinical correlation is essential. Serum or plasma ferritin godfrey surement (mass/volume)Ordered By: Dr. Vidal on 03-24-2022 Ferritin [Mass/Vol] 21 ng/mL 8-252 [facility] Serum or plasma iron saturat ion measurement (mass fraction)Ordered By: Dr. Vidal on 03-24-2022 Iron saturation [Mass fraction] 11.9 % 15.0-55.0 [facility] Serum or plasma low density lipoprotein (LDL) cholesterol measurement (mass/volume)Ordered By: Dr. Mccormick on 03-24-2022 Cholesterol in LDL [Mass/Vol] 59 mg/dL 0-130 [facility] Serum or plasma urea nitroge n measurement (mass/volume)Ordered By: Dr. Mccormick on 03-24-2022 Urea nitrogen [Mass/Vol] 19 mg/dL 7-18 [facility] Thin prep Papanicolaou smear with manual screeningOrdered By: Dr. Mccormick on 03-24-2022 Thin prep Papanicolaou smear with manual screening 6 5-15 [facility] Absolute lymphocyte counton 03-23-2022 Lymphocytes Auto (Unsp spec) [#/Vol] 1.98 10*3/uL 0.83-4.51 [facility] Work Phone: Basophil percentageon 2021 Basophils/100 WBC (Bld) 0.7 % 0-1 [facility] Work Phone: Chloride [Moles/Vol] 109 mmol/L 98-107 [facility] Work Phone: Eosinophils/100 WBC (Bld) 3.4 % 0-5 [facility] Work Phone: Glucose [Mass/Vol] 96 mg/dL 74-[address] [facility] Work Phone: Neutrophils (Bld) [#/Vol] 4.0 10*3/uL 2.0-7.7 [facility] Work Phone: Neutrophils/100 WBC (Bld) 58.7 % 47-70 [facility] Work Phone: [phone] Potassium [Moles/Vol] 4.4 mmol/L 3.5-5.1 [facility] Work Phone: Comment on above: Moderate Hemolysis, Result may be falsely increased. Sodium [Moles/Vol] 141 mmol/L 136-[address] [facility] Work Phone: WBC (Bld) [#/Vol] 6.8 10*3/uL 4.4-11.0 [facility] [facility] Work Phone: Blood erythrocytes count (nu mber/volume)on 03-23-2022 RBC (Bld) [#/Vol] 4.31 10*6/uL 4.2-5.4 [facility]: Blood hemoglobin measurement (mass/volume)on 03-23-2022 Hemoglobin (Bld) [Mass/Vol] 11.1 g/dL 12.0-15.0 [facility] Work Phone: Blood lymphocytes/100 leukoc yteson 03-23-2022 Lymphocytes/100 WBC (Bld) 29.2 % 19-41 [facility] Work Phone: Blood monocytes/100 leukocyt eson 03-23-2022 Monocytes/100 WBC (Bld) 7.7 % 0-10 [facility] Work Phone: Blood platelet mean volumeon 03-23-2022 Platelet mean volume (Bld) [Entitic vol] 10.0 fL 6.2-12.0 [facility] Work Phone: Determination of erythrocyte mean corpuscular volume (MCV)on 03-23-2022 MCV (RBC) [Entitic vol] 81.0 fL 81-99 [facility] Work Phone: Hematocrit Auto (Bld) [Volum e fraction]on 03-23-2022 Hematocrit (Bld) [Volume fraction] 34.9 % 37-47 [facility] Work Phone: Laboratory - Chemistry and C hemistry - challengeon 03-23-2022 CO2 [Moles/Vol] 28.0 mmol/L 21.0-32.0 [facility] Work Phone: Urea nitrogen/Creatinine [Mass ratio] 22.1 mg/mg 10-20 [facility] Work Phone: Laboratory - Chemistry and C hemistry - challengeOrdered By: Dr. Julien on 03-23-2022 Magnesium [Mass/Vol] 2.4 mg/dL 1.6-2.6 [facility] Comment on above: Moderate Hemolysis, Result may be falsely increased. Natriuretic peptide B (Bld) [Mass/Vol] 173.2 pg/mL 0-100 [facility] Laboratory - Hematology and Cell countson 03-23-2022 Erythrocyte distribution width (RBC) [Entitic vol] 43.8 fL 35.1-43.9 [facility] Work Phone: Erythrocyte distribution width (RBC) [Ratio] 14.9 % 11.6-14.6 [facility] Work Phone: Immature granulocytes/100 WBC (Bld) 0.300 % 0.0-0.9 [facility] Work Phone: Comment on above: IG% - Immature Granu locytes (promyelocytes, myelocytes and metamyelocytes) > 1% indicates that a LEFT SHIFT is Present. MCH (RBC) [Entitic mass] 25.8 pg 27.0-32.0 [facility] Work Phone: Nucleated RBC/100 WBC (Bld) [Ratio] 0 % 0-5 [facility] Work Phone: MCHC Auto (RBC) [Mass/Vol]on 03-23-2022 MCHC (RBC) [Mass/Vol] 31.8 g/dL 32-36 [facility] Work Phone: No Panel Informationon 03-23 Estimated Creatinine Clearance Calc 37.32 ml/min [facility] Work Phone: Estimated GFR (MDRD) Amer 74 mL/min >60 [facility] Work Phone: Comment on above: GFR Calc Estimated GFR (MDRD) Non-Af Amer 61 mL/min >60 [facility] Work Phone: Comment on above: Non- GFR Calc Troponin I High Sensitivity 8 pg/mL 3.0-54.0 [facility] Work Phone: Comment on above: Please Note: New Shani t Units and Gender Specific Reference Ranges. For more information see Policy Stat Procedure [place] High Sensitivity Troponin (TNIH) and attachments. Platelets bldon 03-23-2022 Platelets (Bld) [#/Vol] 294 10*3/uL 150-450 [facility] Work Phone: Serum or plasma calcium lauren urement (mass/volume)on 03-23-2022 Calcium [Mass/Vol] 9.5 mg/dL 8.5-10.1 [facility] Work Phone: Serum or plasma creatinine m easurement (mass/volume)on 03-23-2022 Creatinine [Mass/Vol] 0.95 mg/dL 0.55-1.02 [facility] Work Phone: Comment on above: The validity of the calculated GFR & GFRAA in patients over 70 years has not been determined. Clinical correlation is essential. Serum or plasma urea nitroge n measurement (mass/volume)on 03-23-2022 Urea nitrogen [Mass/Vol] 21 mg/dL 7-18 [facility] Work Phone: Thin prep Papanicolaou smear with manual screeningon 03-23-2022 Thin prep Papanicolaou smear with manual screening 4 5-15 [facility] Work Phone: 12 Lead EKGon 03-06-2022 12 Lead EKG Normal [facility] Absolute lymphocyte countOrd ered By: Dr. Smith on 03-06-2022 Lymphocytes Auto (Unsp spec) [#/Vol] 1.71 10*3/uL 0.83-4.51 [facility] Basic Metabolic Profile (BMP )on 03-06-2022 BUN/CRE 17.1 RATIO Normal 10-20 [facility] Comment on above: Order Comment: 'TROP ' Serial specimen #1, #2 or #3: 1 Performed By: #### L 500.2500, L100.0100, L501.4020 ####[facility] [address] [place], [address] CA,Total 9.1 mg/dL Normal 8.5-10.1 [facility] Comment on above: Order Comment: 'TROP ' Serial specimen #1, #2 or #3: 1 Performed By: #### L 500.2500, L100.0100, L501.4020 ####[facility] [address] [place], [address] Chloride [Moles/Vol] 107 mmol/L Normal 98-107 [facility] Comment on above: Order Comment: 'TROP ' Serial specimen #1, #2 or #3: 1 Performed By: #### L 500.2500, L100.0100, L501.4020 ####[facility] [address] [place], [address] CO2 [Moles/Vol] 29.0 mmol/L Normal 21.0-32.0 [facility] Comment on above: Order Comment: 'TROP ' Serial specimen #1, #2 or #3: 1 Performed By: #### L 500.2500, L100.0100, L501.4020 ####[facility] [address] [place], [address] Creatinine [Mass/Vol] 0.94 mg/dL Normal 0.55-1.02 [facility] Comment on above: Order Comment: 'TROP ' Serial specimen #1, #2 or #3: 1 Result Comment: The validity of the calculated GFR GFRAA in patients over70 years has not been determined. Clinical correlation isessential. Performed By: #### L 500.2500, L100.0100, L501.4020 ####[facility] [address] [place], [address] ECRCL 37.71 ml/min Normal [facility] Comment on above: Order Comment: 'TROP ' Serial specimen #1, #2 or #3: 1 Performed By: #### L 500.2500, L100.0100, L501.4020 ####[facility] [address] [place], [address] EST GFR - AA 75 mL/min Normal >60 [facility] Comment on above: Order Comment: 'TROP ' Serial specimen #1, #2 or #3: 1 Result Comment: Afri can [place] GFR Calc Performed By: #### L 500.2500, L100.0100, L501.4020 ####[facility] [address] [place], [address] GAP 6 Normal 5-15 [facility] Comment on above: Order Comment: 'TROP ' Serial specimen #1, #2 or #3: 1 Performed By: #### L 500.2500, L100.0100, L501.4020 ####[facility] [address] [place], [address] GFR/1.73 sq M.predicted among non-blacks MDRD (S/P/Bld) [Vol rate/Area] 62 mL/min/{1.73_m2} Normal >60 [facility] Comment on above: Order Comment: 'TROP ' Serial specimen #1, #2 or #3: 1 Result Comment: Non- GFR Calc Performed By: #### L 500.2500, L100.0100, L501.4020 ####[facility] [address] [place], [address] Glucose [Mass/Vol] 113 mg/dL High 74-[address] [facility] Comment on above: Order Comment: 'TROP ' Serial specimen #1, #2 or #3: 1 Result Comment: Fast ing Glucose result from 100 to 125 mg/dLsuggests IMPAIRED HOMEOSTASIS per A.D.A. criteria. Performed By: #### L 500.2500, L100.0100, L501.4020 ####[facility] [address] [place], [address] Potassium [Moles/Vol] 4.1 mmol/L Normal 3.5-5.1 [facility] Comment on above: Order Comment: 'TROP ' Serial specimen #1, #2 or #3: 1 Performed By: #### L 500.2500, L100.0100, L501.4020 ####[facility] [address] [place], [address] Sodium [Moles/Vol] 142 mmol/L Normal 136-[address] [facility] Comment on above: Order Comment: 'TROP ' Serial specimen #1, #2 or #3: 1 Performed By: #### L 500.2500, L100.0100, L501.4020 ####[facility] [address] [place], [address] Urea nitrogen [Mass/Vol] 16 mg/dL Normal 7-18 [facility] Comment on above: Order Comment: 'TROP ' Serial specimen #1, #2 or #3: 1 Performed By: #### L 500.2500, L100.0100, L501.4020 ####[facility] [address] [place], [address] Basophil percentageOrdered B y: Dr. Smith on 03-06-2022 Basophils/100 WBC (Bld) 0.6 % 0-1 [facility] Chloride [Moles/Vol] 107 mmol/L 98-107 [facility] Eosinophils/100 WBC (Bld) 4.1 % 0-5 [facility] Glucose [Mass/Vol] 113 mg/dL 74-[address] [facility] Comment on above: Fasting Glucose resu lt from 100 to 125 mg/dL suggests IMPAIRED HOMEOSTASIS per A.D.A. criteria. Neutrophils (Bld) [#/Vol] 4.3 10*3/uL 2.0-7.7 [facility] Neutrophils/100 WBC (Bld) 63.0 % 47-70 [facility] Potassium [Moles/Vol] 4.1 mmol/L 3.5-5.1 [facility] Sodium [Moles/Vol] 142 mmol/L 136-[address] [facility] WBC (Bld) [#/Vol] 6.9 10*3/uL 4.4-11.[address] [facility] Blood erythrocytes count (nu mber/volume)Ordered By: Dr. Smith on 03-06-2022 RBC (Bld) [#/Vol] 4.45 10*6/uL 4.2-5.4 [facility] Blood hemoglobin measurement (mass/volume)Ordered By: Dr. Smith on 03-06-2022 Hemoglobin (Bld) [Mass/Vol] 11.5 g/dL 12.0-15.0 [facility] Blood lymphocytes/100 leukoc ytesOrdered By: Dr. Smith on 03-06-2022 Lymphocytes/100 WBC (Bld) 25.0 % 19-41 [facility] Blood monocytes/100 leukocyt esOrdered By: Dr. Smith on 03-06-2022 Monocytes/100 WBC (Bld) 6.9 % 0-10 [facility] Blood platelet mean volumeOr dered By: Dr. Smith on 03-06-2022 Platelet mean volume (Bld) [Entitic vol] 9.4 fL 6.2-12.0 [facility] CBC W/Diff, Automatedon 02-21 Absolute Lymph 1.71 X10 3/uL Normal 0.83-4.51 [facility] Comment on above: Performed By: #### L 500.2500, L100.0100, L501.4020 ####[facility] [address] [place], [address] Absolute Neut 4.3 X10 3/uL Normal 2.0-7.7 [facility] Comment on above: Performed By: #### L 500.2500, L100.0100, L501.4020 ####[facility] [address] [place], [address] Basophils/100 WBC (Bld) 0.6 % Normal 0-1 [facility] Comment on above: Performed By: #### L 500.2500, L100.0100, L501.4020 ####[facility] [address] [place], [address] Eosinophils/100 WBC (Bld) 4.1 % Normal 0-5 [facility] Comment on above: Performed By: #### L 500.2500, L100.0100, L501.4020 ####[facility] [address] [place], [address] Erythrocyte distribution width (RBC) [Ratio] 15.1 % High 11.6-14.6 [facility] Comment on above: Performed By: #### L 500.2500, L100.0100, L501.4020 ####[facility] [address] [place], [address] Hematocrit (Bld) [Volume fraction] 36.9 % Low 37-47 [facility] Comment on above: Performed By: #### L 500.2500, L100.0100, L501.4020 ####[facility] [address] [place], [address] Hemoglobin (Bld) [Mass/Vol] 11.5 g/dL Low 12.0-15.0 [facility] Comment on above: Performed By: #### L 500.2500, L100.0100, L501.4020 ####[facility] [address] [place], [address] IG% 0.400 Normal 0.0-0.9 [facility] Comment on above: Result Comment: IG% - Immature Granulocytes (promyelocytes, myelocytes andmetamyelocytes) > 1% indicates that a LEFT SHIFT is Present. Performed By: #### L 500.2500, L100.0100, L501.4020 ####[facility] [address] [place], [address] Lymphocytes/100 WBC (Bld) 25.0 % Normal 19-41 [facility] Comment on above: Performed By: #### L 500.2500, L100.0100, L501.4020 ####[facility] [address] [place], [address] MCH (RBC) [Entitic mass] 25.8 pg Low 27.0-32.0 [facility] Comment on above: Performed By: #### L 500.2500, L100.0100, L501.4020 ####[facility] [address] [place], [address] MCHC (RBC) [Mass/Vol] 31.2 g/dL Low 32-36 [facility] Comment on above: Performed By: #### L 500.2500, L100.0100, L501.4020 ####[facility] [address] [place], [address] MCV (RBC) [Entitic vol] 82.9 fL Normal 81-99 [facility] Comment on above: Performed By: #### L 500.2500, L100.0100, L501.4020 ####[facility] [address] [place], [address] Monocytes/100 WBC (Bld) 6.9 % Normal 0-10 [facility] Comment on above: Performed By: #### L 500.2500, L100.0100, L501.4020 ####[facility] [address] [place], [address] Neutrophils/100 WBC (Bld) 63.0 % Normal 47-70 [facility] Comment on above: Performed By: #### L 500.2500, L100.0100, L501.4020 ####[facility] [address] [place], [address] Nucleated RBC (Bld) [#/Vol] 0 10*3/uL Normal 0-5 [facility] Comment on above: Performed By: #### L 500.2500, L100.0100, L501.4020 ####[facility] [address] [place], [address] Platelet mean volume (Bld) [Entitic vol] 9.4 fL Normal 6.2-12.0 [facility] Comment on above: Performed By: #### L 500.2500, L100.0100, L501.4020 ####[facility] [address] [place], [address] Platelets (Bld) [#/Vol] 320 10*3/uL Normal 150-450 [facility] Comment on above: Performed By: #### L 500.2500, L100.0100, L501.4020 ####[facility] [address] [place], [address] RBC (Bld) [#/Vol] 4.45 10*6/uL Normal 4.2-5.4 [facility] Comment on above: Performed By: #### L 500.2500, L100.0100, L501.4020 ####[facility] [address] [place], [address] RDW SD 45.7 fl High 35.1-43.9 [facility] Comment on above: Performed By: #### L 500.2500, L100.0100, L501.4020 ####[facility] [address] [place], [address] WBC (Bld) [#/Vol] 6.9 10*3/uL Normal 4.4-11.[address] [facility] Comment on above: Performed By: #### L 500.2500, L100.0100, L501.4020 ####[facility] [address] [place], [address] Chest PA and Lateralon 03-06 Chest PA and Lateral Normal [facility] Determination of erythrocyte mean corpuscular volume (MCV)Ordered By: Dr. Smith on 03-06-2022 MCV (RBC) [Entitic vol] 82.9 fL 81-99 [facility] Emergency Department Summary on 03-06-2022 Emergency Department Summary Normal [facility] Hematocrit Auto (Bld) [Volum e fraction]Ordered By: Dr. Smith on 03-06-2022 Hematocrit (Bld) [Volume fraction] 36.9 % 37-47 [facility] L501.4020on 03-06-2022 TROPONIN-I HS 7 pg/mL Normal 3.0-54.0 [facility] Comment on above: Order Comment: 'TROP ' Serial specimen #1, #2 or #3: 1 Result Comment: Rossana dietrich Note: New Test Units and Gender Specific Reference Ranges. For more information see Policy Stat Procedure [place] High Sensitivity Troponin (TNIH) and attachments. Performed By: #### L 500.2500, L100.0100, L501.4020 ####[facility] [address] [place], [place], [id number] Laboratory - Chemistry and C hemistry - challengeOrdered By: Dr. Smith on 03-06-2022 CO2 [Moles/Vol] 29.0 mmol/L 21.0-32.0 [facility] Urea nitrogen/Creatinine [Mass ratio] 17.1 mg/mg 10-20 [facility] Laboratory - Hematology and Cell countsOrdered By: Dr. Smith on 03-06-2022 Erythrocyte distribution width (RBC) [Entitic vol] 45.7 fL 35.1-43.9 [facility] Erythrocyte distribution width (RBC) [Ratio] 15.1 % 11.6-14.6 [facility] Immature granulocytes/100 WBC (Bld) 0.400 % 0.0-0.9 [facility] Comment on above: IG% - Immature Granu locytes (promyelocytes, myelocytes and metamyelocytes) > 1% indicates that a LEFT SHIFT is Present. MCH (RBC) [Entitic mass] 25.8 pg 27.0-32.0 [facility] Nucleated RBC/100 WBC (Bld) [Ratio] 0 % 0-5 [facility] MCHC Auto (RBC) [Mass/Vol]Or dered By: Dr. Smith on 03-06-2022 MCHC (RBC) [Mass/Vol] 31.2 g/dL 32-36 [facility] No Panel InformationOrdered By: Dr. Smith on 03-06-2022 Estimated Creatinine Clearance Calc 37.71 ml/min [facility] Estimated GFR (MDRD) Amer 75 mL/min >60 [facility] Comment on above: GFR Calc Estimated GFR (MDRD) Non-Af Amer 62 mL/min >60 [facility] Comment on above: Non- GFR Calc Troponin I High Sensitivity 7 pg/mL 3.0-54.0 [facility] Comment on above: Please Note: New Shani t Units and Gender Specific Reference Ranges. For more information see Policy Stat Procedure [place] High Sensitivity Troponin (TNIH) and attachments. Platelets bldOrdered By: Dr. Smith on 03-06-2022 Platelets (Bld) [#/Vol] 320 10*3/uL 150-450 [facility] Serum or plasma calcium lauren urement (mass/volume)Ordered By: Dr. Smith on 03-06-2022 Calcium [Mass/Vol] 9.1 mg/dL 8.5-10.[address] [facility] Serum or plasma creatinine m easurement (mass/volume)Ordered By: Dr. Smith on 03-06-2022 Creatinine [Mass/Vol] 0.94 mg/dL 0.55-1.02 [facility] Comment on above: The validity of the calculated GFR & GFRAA in patients over 70 years has not been determined. Clinical correlation is essential. Serum or plasma urea nitroge n measurement (mass/volume)Ordered By: Dr. Smith on 03-06-2022 Urea nitrogen [Mass/Vol] 16 mg/dL 7-18 [facility] Thin prep Papanicolaou smear with manual screeningOrdered By: Dr. Smith on 03-06-2022 Thin prep Papanicolaou smear with manual screening 6 5-15 [facility] Culture, urineOrdered By: Dr Davis Morin on 03-01-2022 Bacteria identified Cx Nom (U) Klebsiella pneumoniae sp pneum [facility] Urine Cultureon 03-01-2022 URC Normal [facility] Comment on above: Performed By: #### M 100.2200 ####[facility] [address] [place], [address] Absolute lymphocyte countOrd ered By: Romero Broderick on 02-28-2022 Lymphocytes Auto (Unsp spec) [#/Vol] 1.71 10*3/uL 0.83-4.51 [facility] BNP,B-Type NATRIURETIC PEPTI [employer] 02-28-2022 Natriuretic peptide B (Bld) [Mass/Vol] 114.8 pg/mL High 0-100 [facility] Comment on above: Performed By: #### L 500.2500, L100.0100, L503.6620 ####[facility] [address] [place], [address] Basic Metabolic Profile (BMP )on 02-28-2022 BUN/CRE 18.0 RATIO Normal 10-20 [facility] Comment on above: Performed By: #### L 500.2500, L100.0100, L503.6620 ####[facility] [address] [place], [address] CA,Total 9.1 mg/dL Normal 8.5-10.1 [facility] Comment on above: Performed By: #### L 500.2500, L100.0100, L503.6620 ####[facility] [address] [place], [address] EST GFR - AA 80 mL/min Normal >60 [facility] Comment on above: Result Comment: Afri can [place] GFR Calc Performed By: #### L 500.2500, L100.0100, L503.6620 ####[facility] [address] [place], [address] GAP 3 Low 5-15 [facility] Comment on above: Performed By: #### L 500.2500, L100.0100, L503.6620 ####[facility] [address] [place], [address] GFR/1.73 sq M.predicted among non-blacks MDRD (S/P/Bld) [Vol rate/Area] 66 mL/min/{1.73_m2} Normal >60 [facility] Comment on above: Result Comment: Non- GFR Calc Performed By: #### L 500.2500, L100.0100, L503.6620 ####[facility] [address] [place], [address] Basic Metabolic Profile (BMP )Ordered By: Romero Broderick on 02-28-2022 CO2 [Moles/Vol] 31.0 mmol/L 21.0-32.0 [facility] Comment on above: Performed By: #### L 500.2500, L100.0100, L503.6620 ####[facility] [address] [place], [address] Basophil percentageOrdered B y: Romero Broderick on 02-28-2022 Basophils/100 WBC (Bld) 1.0 % 0-1 [facility] Chloride [Moles/Vol] 106 mmol/L 98-107 [facility] Comment on above: Performed By: #### L 500.2500, L100.0100, L503.6620 ####[facility] [address] [place], [address] Eosinophils/100 WBC (Bld) 3.6 % 0-5 [facility] Glucose [Mass/Vol] 79 mg/dL 74-[address] [facility] Comment on above: Performed By: #### L 500.2500, L100.0100, L503.6620 ####[facility] [address] [place], [address] Neutrophils (Bld) [#/Vol] 3.4 10*3/uL 2.0-7.7 [facility] Neutrophils/100 WBC (Bld) 56.6 % 47-70 [facility] Potassium [Moles/Vol] 4.5 mmol/L 3.5-5.1 [facility] Comment on above: Slight Hemolysis, Re sult may be falsely increased. Result Comment: Slig ht Hemolysis, Result may be falsely increased. Performed By: #### L 500.2500, L100.0100, L503.6620 ####[facility] [address] [place], [address] Sodium [Moles/Vol] 140 mmol/L 136-[address] [facility] Comment on above: Performed By: #### L 500.2500, L100.0100, L503.6620 ####[facility] [address] [place], [address] WBC (Bld) [#/Vol] 6.0 10*3/uL 4.4-11.[address] [facility] Blood erythrocytes count (nu mber/volume)Ordered By: Romero Broderick on 02-28-2022 RBC (Bld) [#/Vol] 4.52 10*6/uL 4.2-5.4 [facility] Blood hemoglobin measurement (mass/volume)Ordered By: Romero Broderick on 02-28-2022 Hemoglobin (Bld) [Mass/Vol] 11.9 g/dL 12.0-15.0 [facility] Blood lymphocytes/100 leukoc ytesOrdered By: Romero Broderick on 02-28-2022 Lymphocytes/100 WBC (Bld) 28.3 % 19-41 [facility] Blood monocytes/100 leukocyt esOrdered By: Romero Broderick on 02-28-2022 Monocytes/100 WBC (Bld) 10.3 % 0-10 [facility] Blood platelet mean volumeOr dered By: Romero Broderick on 02-28-2022 Platelet mean volume (Bld) [Entitic vol] 9.8 fL 6.2-12.0 [facility] CBC W/Diff, Automatedon 11-0 Absolute Lymph 1.71 X10 3/uL Normal 0.83-4.51 [facility] Comment on above: Performed By: #### L 500.2500, L100.0100, L503.6620 ####[facility] [address] [place], [address] Absolute Neut 3.4 X10 3/uL Normal 2.0-7.7 [facility] Comment on above: Performed By: #### L 500.2500, L100.0100, L503.6620 ####[facility] [address] [place], [address] Basophils/100 WBC (Bld) 1.0 % Normal 0-1 [facility] Comment on above: Performed By: #### L 500.2500, L100.0100, L503.6620 ####[facility] [address] [place], [address] Eosinophils/100 WBC (Bld) 3.6 % Normal 0-5 [facility] Comment on above: Performed By: #### L 500.2500, L100.0100, L503.6620 ####[facility] [address] [place], [address] Erythrocyte distribution width (RBC) [Ratio] 15.3 % High 11.6-14.6 [facility] Comment on above: Performed By: #### L 500.2500, L100.0100, L503.6620 ####[facility] [address] [place], [address] Hematocrit (Bld) [Volume fraction] 37.6 % Normal 37-47 [facility] Comment on above: Performed By: #### L 500.2500, L100.0100, L503.6620 ####[facility] [address] [place], [address] Hemoglobin (Bld) [Mass/Vol] 11.9 g/dL Low 12.0-15.0 [facility] Comment on above: Performed By: #### L 500.2500, L100.0100, L503.6620 ####[facility] [address] [place], [address] IG% 0.200 Normal 0.0-0.9 [facility] Comment on above: Result Comment: IG% - Immature Granulocytes (promyelocytes, myelocytes andmetamyelocytes) > 1% indicates that a LEFT SHIFT is Present. Performed By: #### L 500.2500, L100.0100, L503.6620 ####[facility] [address] [place], [address] Lymphocytes/100 WBC (Bld) 28.3 % Normal 19-41 [facility] Comment on above: Performed By: #### L 500.2500, L100.0100, L503.6620 ####[facility] [id number] [place], [address] MCH (RBC) [Entitic mass] 26.3 pg Low 27.0-32.0 [facility] Comment on above: Performed By: #### L 500.2500, L100.0100, [id number] ####[facility] [id number] [place], [address] MCHC (RBC) [Mass/Vol] 31.6 g/dL Low 32-36 [facility] Comment on above: Performed By: #### L 500.2500, L100.0100, L503.6620 ####[facility] [address] [place], [address] MCV (RBC) [Entitic vol] 83.2 fL Normal 81-99 [facility] Comment on above: Performed By: #### L 500.2500, L100.0100, L503.6620 ####[facility] [address] [place], [address] Monocytes/100 WBC (Bld) 10.3 % High 0-10 [facility] Comment on above: Performed By: #### L 500.2500, L100.0100, L503.6620 ####[facility] [address] [place], [address] Neutrophils/100 WBC (Bld) 56.6 % Normal 47-70 [facility] Comment on above: Performed By: #### L 500.2500, L100.0100, L503.6620 ####[facility] [address] [place], [address] Nucleated RBC (Bld) [#/Vol] 0 10*3/uL Normal 0-5 [facility] Comment on above: Performed By: #### L 500.2500, L100.0100, L503.6620 ####[facility] [address] [place], [address] Platelet mean volume (Bld) [Entitic vol] 9.8 fL Normal 6.2-12.0 [facility] Comment on above: Performed By: #### L 500.2500, L100.0100, L503.6620 ####[facility] [address] [place], [address] Platelets (Bld) [#/Vol] 315 10*3/uL Normal 150-450 [facility] Comment on above: Performed By: #### L 500.2500, L100.0100, L503.6620 ####[facility] [address] [place], [address] RBC (Bld) [#/Vol] 4.52 10*6/uL Normal 4.2-5.4 [facility] Comment on above: Performed By: #### L 500.2500, L100.0100, L503.6620 ####[facility] [address] [place], [address] RDW SD 46.9 fl High 35.1-43.9 [facility] Comment on above: Performed By: #### L 500.2500, L100.0100, L503.6620 ####[facility] [address] [place], [address] WBC (Bld) [#/Vol] 6.0 10*3/uL Normal 4.4-11.[address] [facility] Comment on above: Performed By: #### L 500.2500, L100.0100, L503.6620 ####[facility] [address] [place] [place], [address] Cardiology Visit Reporton Cardiology Visit Report Normal [facility] Determination of erythrocyte mean corpuscular volume (MCV)Ordered By: Romero Broderick on 02-28-2022 MCV (RBC) [Entitic vol] 83.2 fL 81-99 [facility] Hematocrit Auto (Bld) [Volum e fraction]Ordered By: Romero Broderick on 02-28-2022 Hematocrit (Bld) [Volume fraction] 37.6 % 37-47 [facility] Laboratory - Chemistry and C hemistry - challengeOrdered By: Romero Broderick on 02-28-2022 Natriuretic peptide B (Bld) [Mass/Vol] 114.8 pg/mL 0-100 [facility] Urea nitrogen/Creatinine [Mass ratio] 18.0 mg/mg 10-20 [facility] Laboratory - Hematology and Cell countsOrdered By: Romero Broderick on 02-28-2022 Erythrocyte distribution width (RBC) [Entitic vol] 46.9 fL 35.1-43.9 [facility] Erythrocyte distribution width (RBC) [Ratio] 15.3 % 11.6-14.6 [facility] Immature granulocytes/100 WBC (Bld) 0.200 % 0.0-0.9 [facility] Comment on above: IG% - Immature Granu locytes (promyelocytes, myelocytes and metamyelocytes) > 1% indicates that a LEFT SHIFT is Present. MCH (RBC) [Entitic mass] 26.3 pg 27.0-32.0 [facility] Nucleated RBC/100 WBC (Bld) [Ratio] 0 % 0-5 [facility] MCHC Auto (RBC) [Mass/Vol]Or dered By: Romero Broderick on 02-28-2022 MCHC (RBC) [Mass/Vol] 31.6 g/dL 32-36 [facility] No Panel InformationOrdered By: Romero Broderick on 02-28-2022 Estimated GFR (MDRD) Amer 80 mL/min >60 [facility] Comment on above: GFR Calc Estimated GFR (MDRD) Non-Af Amer 66 mL/min >60 [facility] Comment on above: Non- GFR Calc Platelets bldOrdered By: Janes Broderick on 02-28-2022 Platelets (Bld) [#/Vol] 315 10*3/uL 150-450 [facility] Serum or plasma calcium lauren urement (mass/volume)Ordered By: Romero Broderick on 02-28-2022 Calcium [Mass/Vol] 9.1 mg/dL 8.5-10.[address] [facility] Serum or plasma creatinine m easurement (mass/volume)Ordered By: Romero Broderick on 02-28-2022 Creatinine [Mass/Vol] 0.89 mg/dL 0.55-1.02 [facility] Comment on above: The validity of the calculated GFR & GFRAA in patients over 70 years has not been determined. Clinical correlation is essential. Result Comment: The validity of the calculated GFR GFRAA in patients over70 years has not been determined. Clinical correlation isessential. Performed By: #### L 500.2500, L100.0100, L503.6620 ####[facility] [address] [place], [address] Serum or plasma urea nitroge n measurement (mass/volume)Ordered By: Romero Broderick on 02-28-2022 Urea nitrogen [Mass/Vol] 16 mg/dL 7-18 [facility] Comment on above: Performed By: #### L 500.2500, L100.0100, L503.6620 ####[facility] [address] [place], [address] Thin prep Papanicolaou smear with manual screeningOrdered By: Romero Broderick on 02-28-2022 Thin prep Papanicolaou smear with manual screening 3 5-15 [facility] Culture, urineOrdered By: Dr Davis Morin on 01-22-2022 Bacteria identified Cx Nom (U) Klebsiella pneumoniae sp pneum [facility] Urine Cultureon 01-22-2022 URC Normal [facility] Comment on above: Performed By: #### M 100.2200 ####[facility] [address] [place], [address] Surgery Visit Reporton 01-19 Surgery Visit Report Normal [facility] Breast Limited Unilateralon 12-19-2021 Breast Limited Unilateral Normal [facility] DIAG MAMM W/CAD, UNILATon DIAG MAMM W/CAD, UNILAT Normal [facility] Absolute lymphocyte counton 12-13-2021 Lymphocytes Auto (Unsp spec) [#/Vol] 1.56 10*3/uL 0.83-4.51 [facility] Work Phone: Basophil percentageon 2021 Basophils/100 WBC (Bld) 0.6 % 0-1 [facility] Work Phone: Bilirubin [Mass/Vol] 0.50 mg/dL 0.20-1.00 [facility] Work Phone: Comment on above: For patients on eltr ombopag therapy, use of Dimension [place] TBIL is not recommended. Chloride [Moles/Vol] 106 mmol/L 98-107 [facility] Work Phone: Eosinophils/100 WBC (Bld) 2.8 % 0-5 [facility] Work Phone: Glucose [Mass/Vol] 96 mg/dL 74-[address] [facility] Work Phone: Neutrophils (Bld) [#/Vol] 2.6 10*3/uL 2.0-7.7 [facility] Work Phone: Neutrophils/100 WBC (Bld) 52.3 % 47-70 [facility] Work Phone: Potassium [Moles/Vol] 4.2 mmol/L 3.5-5.1 [facility] Work Phone: Protein [Mass/Vol] 7.6 g/dL 6.4-8.[address] [facility] Work Phone: Sodium [Moles/Vol] 138 mmol/L 136-[address] [facility] Work Phone: WBC (Bld) [#/Vol] 5.0 10*3/uL 4.4-11.[address] [facility] Work Phone: Blood erythrocytes count (nu mber/volume)on 12-13-2021 RBC (Bld) [#/Vol] 4.34 10*6/uL 4.2-5.4 [facility] Work Phone: Blood hemoglobin measurement (mass/volume)on 12-13-2021 Hemoglobin (Bld) [Mass/Vol] 11.4 g/dL 12.0-15.0 [facility] Work Phone: Blood lymphocytes/100 leukoc yteson 12-13-2021 Lymphocytes/100 WBC (Bld) 31.3 % 19-41 [facility] Work Phone: Blood monocytes/100 leukocyt eson 12-13-2021 Monocytes/100 WBC (Bld) 12.8 % 0-10 [facility] Work Phone: Blood platelet mean volumeon 12-13-2021 Platelet mean volume (Bld) [Entitic vol] 10.0 fL 6.2-12.0 [facility] Work Phone: CBC W/Diff, Automatedon 11-22 Absolute Lymph 1.56 X10 3/uL Normal 0.83-4.51 [facility] Comment on above: Performed By: #### L 501.9520, L100.0100, L500.4050, L506.1000 ####[facility] [address] [place], [address] Absolute Neut 2.6 X10 3/uL Normal 2.0-7.7 [facility] Comment on above: Performed By: #### L 501.9520, L100.0100, L500.4050, L506.1000 ####[facility] [address] [place], [address] Basophils/100 WBC (Bld) 0.6 % Normal 0-1 [facility] Comment on above: Performed By: #### L 501.9520, L100.0100, L500.4050, L506.1000 ####[facility] [address] [place], [address] Eosinophils/100 WBC (Bld) 2.8 % Normal 0-5 [facility] Comment on above: Performed By: #### L 501.9520, L100.0100, L500.4050, L506.1000 ####[facility] [address] [place], [address] Erythrocyte distribution width (RBC) [Ratio] 16.1 % High 11.6-14.6 [facility] Comment on above: Performed By: #### L 501.9520, L100.0100, L500.4050, L506.1000 ####[facility] [address] [place], [address] Hematocrit (Bld) [Volume fraction] 35.5 % Low 37-47 [facility] Comment on above: Performed By: #### L 501.9520, L100.0100, L500.4050, L506.1000 ####[facility] [address] [place], [address] Hemoglobin (Bld) [Mass/Vol] 11.4 g/dL Low 12.0-15.0 [facility] Comment on above: Performed By: #### L 501.9520, L100.0100, L500.4050, L506.1000 ####[facility] [address] [place], [address] IG% 0.200 Normal 0.0-0.9 [facility] Comment on above: Result Comment: IG% - Immature Granulocytes (promyelocytes, myelocytes andmetamyelocytes) > 1% indicates that a LEFT SHIFT is Present. Performed By: #### L 501.9520, L100.0100, L500.4050, L506.1000 ####[facility] [address] [place], [address] Lymphocytes/100 WBC (Bld) 31.3 % Normal 19-41 [facility] Comment on above: Performed By: #### L 501.9520, L100.0100, L500.4050, L506.1000 ####[facility] [address] [place], [address] MCH (RBC) [Entitic mass] 26.3 pg Low 27.0-32.0 [facility] Comment on above: Performed By: #### L 501.9520, L100.0100, L500.4050, L506.1000 ####[facility] [address] [place], [address] MCHC (RBC) [Mass/Vol] 32.1 g/dL Normal 32-36 [facility] Comment on above: Performed By: #### L 501.9520, L100.0100, L500.4050, L506.1000 ####[facility] [address] [place], [address] MCV (RBC) [Entitic vol] 81.8 fL Normal 81-99 [facility] Comment on above: Performed By: #### L 501.9520, L100.0100, L500.4050, L506.1000 ####[facility] [address] [place], [address] Monocytes/100 WBC (Bld) 12.8 % High 0-10 [facility] Comment on above: Performed By: #### L 501.9520, L100.0100, L500.4050, L506.1000 ####[facility] [address] [place], [address] Neutrophils/100 WBC (Bld) 52.3 % Normal 47-70 [facility] Comment on above: Performed By: #### L 501.9520, L100.0100, L500.4050, L506.1000 ####[facility] [address] [place], [address] Nucleated RBC (Bld) [#/Vol] 0 10*3/uL Normal 0-5 [facility] Comment on above: Performed By: #### L 501.9520, L100.0100, L500.4050, L506.1000 ####[facility] [address] [place], [address] Platelet mean volume (Bld) [Entitic vol] 10.0 fL Normal 6.2-12.0 [facility] Comment on above: Performed By: #### L 501.9520, L100.0100, L500.4050, L506.1000 ####[facility] [address] [place], [address] Platelets (Bld) [#/Vol] 301 10*3/uL Normal 150-450 [facility] Comment on above: Performed By: #### L 501.9520, L100.0100, L500.4050, L506.1000 ####[facility] [address] [place], [address] RBC (Bld) [#/Vol] 4.34 10*6/uL Normal 4.2-5.4 [facility] Comment on above: Performed By: #### L 501.9520, L100.0100, L500.4050, L506.1000 ####[facility] [address] [place], [address] RDW SD 48.0 fl High 35.1-43.9 [facility] Comment on above: Performed By: #### L 501.9520, L100.0100, L500.4050, L506.1000 ####[facility] [address] [place], [address] WBC (Bld) [#/Vol] 5.0 10*3/uL Normal 4.4-11.[address] [facility] Comment on above: Performed By: #### L 501.9520, L100.0100, L500.4050, L506.1000 ####[facility] [address] [place], [address] Comprehensive Metabolic Prof ilon 12-13-2021 Albumin [Mass/Vol] 3.2 g/dL Normal 3.2-5.[address] [facility] Comment on above: Performed By: #### L 501.9520, L100.0100, L500.4050, L506.1000 ####[facility] [address] [place], [address] Albumin/Globulin [Mass ratio] 0.7 {ratio} Low 0.9-2.4 [facility] Comment on above: Performed By: #### L 501.9520, L100.0100, L500.4050, L506.1000 ####[facility] [address] [place], [address] ALK P 115 U/L Normal 45-117 [facility] Comment on above: Performed By: #### L 501.9520, L100.0100, L500.4050, L506.1000 ####[facility] [address] [place], [address] ALT [Catalytic activity/Vol] 22 U/L Normal 13-56 [facility] Comment on above: Performed By: #### L 501.9520, L100.0100, L500.4050, L506.1000 ####[facility] [address] [place], [address] AST [Catalytic activity/Vol] 22 U/L Normal 15-37 [facility] Comment on above: Performed By: #### L 501.9520, L100.0100, L500.4050, L506.1000 ####[facility] [address] [place], [address] Bilirubin [Mass/Vol] 0.50 mg/dL Normal 0.20-1.00 [facility] Comment on above: Result Comment: For patients on eltrombopag therapy, use of Dimension [place] TBIL is not recommended. Performed By: #### L 501.9520, L100.0100, L500.4050, L506.1000 ####[facility] [address] [place], [address] BUN/CRE 19.5 RATIO Normal 10-20 [facility] Comment on above: Performed By: #### L 501.9520, L100.0100, L500.4050, L506.1000 ####[facility] [address] [place], [address] CA,Total 8.9 mg/dL Normal 8.5-10.1 [facility] Comment on above: Performed By: #### L 501.9520, L100.0100, L500.4050, L506.1000 ####[facility] [address] [place], [address] Chloride [Moles/Vol] 106 mmol/L Normal 98-107 [facility] Comment on above: Performed By: #### L 501.9520, L100.0100, L500.4050, L506.1000 ####[facility] [address] [place], [address] CO2 [Moles/Vol] 26.0 mmol/L Normal 21.0-32.0 [facility] Comment on above: Performed By: #### L 501.9520, L100.0100, L500.4050, L506.1000 ####[facility] [address] [place], [address] Creatinine [Mass/Vol] 1.23 mg/dL High 0.55-1.02 [facility] Comment on above: Result Comment: The validity of the calculated GFR GFRAA in patients over70 years has not been determined. Clinical correlation isessential. Performed By: #### L 501.9520, L100.0100, L500.4050, L506.1000 ####[facility] [address] [place], [address] EST GFR - AA 55 mL/min Low >60 [facility] Comment on above: Result Comment: Afri can [place] GFR Calc Performed By: #### L 501.9520, L100.0100, L500.4050, L506.1000 ####[facility] [address] [place], [address] GAP 6 Normal 5-15 [facility] Comment on above: Performed By: #### L 501.9520, L100.0100, L500.4050, L506.1000 ####[facility] [address] [place], [address] GFR/1.73 sq M.predicted among non-blacks MDRD (S/P/Bld) [Vol rate/Area] 45 mL/min/{1.73_m2} Low >60 [facility] Comment on above: Result Comment: Non- GFR Calc Performed By: #### L 501.9520, L100.0100, L500.4050, L506.1000 ####[facility] [address] [place], [address] Globulin (S) [Mass/Vol] 4.4 g/dL High 2.2-4.2 [facility] Comment on above: Performed By: #### L 501.9520, L100.0100, L500.4050, L506.1000 ####[facility] [address] [place], [address] Glucose [Mass/Vol] 96 mg/dL Normal 74-[address] [facility] Comment on above: Performed By: #### L 501.9520, L100.0100, L500.4050, L506.1000 ####[facility] [address] [place], [address] Potassium [Moles/Vol] 4.2 mmol/L Normal 3.5-5.1 [facility] Comment on above: Performed By: #### L 501.9520, L100.0100, L500.4050, L506.1000 ####[facility] [address] [place], [address] Sodium [Moles/Vol] 138 mmol/L Normal 136-[address] [facility] Comment on above: Performed By: #### L 501.9520, L100.0100, L500.4050, L506.1000 ####[facility] [address] [place], [address] T PROT 7.6 g/dL Normal 6.4-8.2 [facility] Comment on above: Performed By: #### L 501.9520, L100.0100, L500.4050, L506.1000 ####[facility] [address] [place], [address] Urea nitrogen [Mass/Vol] 24 mg/dL High 7-18 [facility] Comment on above: Performed By: #### L 501.9520, L100.0100, L500.4050, L506.1000 ####[facility] [address] [place], [address] Determination of erythrocyte mean corpuscular volume (MCV)on 12-13-2021 MCV (RBC) [Entitic vol] 81.8 fL 81-99 [facility] Work Phone: Hematocrit Auto (Bld) [Volum e fraction]on 12-13-2021 Hematocrit (Bld) [Volume fraction] 35.5 % 37-47 [facility] Work Phone: Laboratory - Chemistry and C hemistry - challengeon 12-13-2021 ALP [Catalytic activity/Vol] 115 U/L 45-117 [facility] Work Phone: ALT [Catalytic activity/Vol] 22 U/L 13-56 [facility] Work Phone: CO2 [Moles/Vol] 26.0 mmol/L 21.0-32.0 [facility] Work Phone: Globulin (S) [Mass/Vol] 4.4 g/dL 2.2-4.2 [facility] Work Phone: Urea nitrogen/Creatinine [Mass ratio] 19.5 mg/mg 10-20 [facility] Work Phone: Laboratory - Hematology and Cell countson 12-13-2021 Erythrocyte distribution width (RBC) [Entitic vol] 48.0 fL 35.1-43.9 [facility] Work Phone: Erythrocyte distribution width (RBC) [Ratio] 16.1 % 11.6-14.6 [facility] Work Phone: Immature granulocytes/100 WBC (Bld) 0.200 % 0.0-0.9 [facility] Work Phone: Comment on above: IG% - Immature Granu locytes (promyelocytes, myelocytes and metamyelocytes) > 1% indicates that a LEFT SHIFT is Present. MCH (RBC) [Entitic mass] 26.3 pg 27.0-32.0 [facility] Work Phone: Nucleated RBC/100 WBC (Bld) [Ratio] 0 % 0-5 [facility] Work Phone: MCHC Auto (RBC) [Mass/Vol]on 12-13-2021 MCHC (RBC) [Mass/Vol] 32.1 g/dL 32-36 [facility] Work Phone: No Panel Informationon 12-13 Estimated GFR (MDRD) Amer 55 mL/min >60 [facility] Work Phone: Comment on above: GFR Calc Estimated GFR (MDRD) Non-Af Amer 45 mL/min >60 [facility] Work Phone: Comment on above: Non- GFR Calc Thyroid Stimulating Hormone (TSH) 1.11 uIU/mL 0.358-3.74 [facility] Work Phone: Vitamin D 25-Hydroxy 34.8 ng/mL [facility] Work Phone: Comment on above: Vitamin D 25(OH) Sta tus Range Deficiency <20 ng/mL (50nmol/L) Insufficiency 20 - 30 ng/mL (50 - 75 nmol/L) Sufficiency 30 - 100 ng/mL (75 - 250 nmol/L) Toxicity >100 ng/mL (>250 nmol/L) Platelets bldon 12-13-2021 Platelets (Bld) [#/Vol] 301 10*3/uL 150-450 [facility] Work Phone: Serum or plasma albumin lauren urement (mass/volume)on 12-13-2021 Albumin [Mass/Vol] 3.2 g/dL 3.2-5.[address] [facility] Work Phone: Serum or plasma albumin/glob ulin mass ratioon 12-13-2021 Albumin/Globulin [Mass ratio] 0.7 {ratio} 0.9-2.4 [facility] Work Phone: Serum or plasma calcium lauren urement (mass/volume)on 12-13-2021 Calcium [Mass/Vol] 8.9 mg/dL 8.5-10.[address] [facility] Work Phone: Serum or plasma creatinine m easurement (mass/volume)on 12-13-2021 Creatinine [Mass/Vol] 1.23 mg/dL 0.55-1.02 [facility] Work Phone: Comment on above: The validity of the calculated GFR & GFRAA in patients over 70 years has not been determined. Clinical correlation is essential. Serum or plasma urea nitroge n measurement (mass/volume)on 12-13-2021 Urea nitrogen [Mass/Vol] 24 mg/dL 7-18 [facility] Work Phone: Thin prep Papanicolaou smear with manual screeningon 12-13-2021 Thin prep Papanicolaou smear with manual screening 22 U/L 15-37 [facility] Work Phone: Thin prep Papanicolaou smear with manual screening 6 5-15 [facility] Work Phone: Thyroid Stim Hormone (TSH)on 12-13-2021 TSH 1.11 uIU/mL Normal 0.358-3.74 [facility] Comment on above: Performed By: #### L 501.9520, L100.0100, L500.4050, L506.1000 ####[facility] [address] [place], [address] Vitamin D,25 Hydroxyon 12-13 Vitamin D 25-OH 34.8 ng/mL Normal [facility] Comment on above: Result Comment: Faina min D 25(OH) Status Range Deficiency <20 ng/mL (50nmol/L) Insufficiency 20 - 30 ng/mL (50 - 75 nmol/L) Sufficiency 30 - 100 ng/mL (75 - 250 nmol/L) Toxicity >100 ng/mL (>250 nmol/L) Performed By: #### L 501.9520, L100.0100, L500.4050, L506.1000 ####[facility] [address] [place], [address] Absolute lymphocyte counton 12-01-2021 Lymphocytes Auto (Unsp spec) [#/Vol] 1.43 10*3/uL 0.83-4.51 [facility] Work Phone: Basic Metabolic Profile (BMP )on 12-01-2021 BUN/CRE 15.0 RATIO Normal 10-20 [facility] Comment on above: Performed By: #### L 500.2500, L100.0100 ####[facility] [address] [place], [address] CA,Total 9.3 mg/dL Normal 8.5-10.1 [facility] Comment on above: Performed By: #### L 500.2500, L100.0100 ####[facility] [address] [place], [address] Chloride [Moles/Vol] 107 mmol/L Normal 98-107 [facility] Comment on above: Performed By: #### L 500.2500, L100.0100 ####[facility] [address] [place], [address] CO2 [Moles/Vol] 28.0 mmol/L Normal 21.0-32.0 [facility] Comment on above: Performed By: #### L 500.2500, L100.0100 ####[facility] [address] [place], [address] Creatinine [Mass/Vol] 0.87 mg/dL Normal 0.55-1.02 [facility] Comment on above: Result Comment: The validity of the calculated GFR GFRAA in patients over70 years has not been determined. Clinical correlation isessential. Performed By: #### L 500.2500, L100.0100 ####[facility] [address] [place], [address] EST GFR - AA 82 mL/min Normal >60 [facility] Comment on above: Result Comment: Afri can [place] GFR Calc Performed By: #### L 500.2500, L100.0100 ####[facility] [address] [place], [address] GAP 5 Normal 5-15 [facility] Comment on above: Performed By: #### L 500.2500, L100.0100 ####[facility] [address] [place], [address] GFR/1.73 sq M.predicted among non-blacks MDRD (S/P/Bld) [Vol rate/Area] 68 mL/min/{1.73_m2} Normal >60 [facility] Comment on above: Result Comment: Non- GFR Calc Performed By: #### L 500.2500, L100.0100 ####[facility] [address] [place], [address] Glucose [Mass/Vol] 94 mg/dL Normal 74-[address] [facility] Comment on above: Performed By: #### L 500.2500, L100.0100 ####[facility] [id number] [place], [address] Potassium [Moles/Vol] 4.4 mmol/L Normal 3.5-5.1 [facility] Comment on above: Performed By: #### L 500.2500, L100.0100 ####[facility] [id number] [place], [address] Sodium [Moles/Vol] 140 mmol/L Normal 136-[address] [facility] Comment on above: Performed By: #### L 500.2500, L100.0100 ####[facility] [address] [place], [address] Urea nitrogen [Mass/Vol] 13 mg/dL Normal 7-18 [facility] Comment on above: Performed By: #### L 500.2500, L100.0100 ####[facility] [address] [place], [address] Basophil percentageon 2021 Basophils/100 WBC (Bld) 0.7 % 0-1 [facility] Work Phone: Chloride [Moles/Vol] 107 mmol/L 98-107 [facility] Work Phone: Eosinophils/100 WBC (Bld) 3.4 % 0-5 [facility] Work Phone: Glucose [Mass/Vol] 94 mg/dL 74-[address] [facility] Work Phone: Neutrophils (Bld) [#/Vol] 3.6 10*3/uL 2.0-7.7 [facility] Work Phone: Neutrophils/100 WBC (Bld) 60.0 % 47-70 [facility] Work Phone: Potassium [Moles/Vol] 4.4 mmol/L 3.5-5.1 [facility] Work Phone: Sodium [Moles/Vol] 140 mmol/L 136-[address] [facility] Work Phone: WBC (Bld) [#/Vol] 6.0 10*3/uL 4.4-11.[address] [facility] Work Phone: Blood erythrocytes count (nu mber/volume)on 12-01-2021 RBC (Bld) [#/Vol] 4.70 10*6/uL 4.2-5.4 [facility] Work Phone: Blood hemoglobin measurement (mass/volume)on 12-01-2021 Hemoglobin (Bld) [Mass/Vol] 12.0 g/dL 12.0-15.0 [facility] Work Phone: Blood lymphocytes/100 leukoc yteson 12-01-2021 Lymphocytes/100 WBC (Bld) 24.0 % 19-41 [facility] Work Phone: Blood monocytes/100 leukocyt eson 12-01-2021 Monocytes/100 WBC (Bld) 11.7 % 0-10 [facility] Work Phone: Blood platelet mean volumeon 12-01-2021 Platelet mean volume (Bld) [Entitic vol] 9.8 fL 6.2-12.0 [facility] Work Phone: CBC W/Diff, Automatedon 11-21 Absolute Lymph 1.43 X10 3/uL Normal 0.83-4.51 [facility] Comment on above: Performed By: #### L 500.2500, L100.0100 ####[facility] [address] [place], [address] Absolute Neut 3.6 X10 3/uL Normal 2.0-7.7 [facility] Comment on above: Performed By: #### L 500.2500, L100.0100 ####[facility] [address] [place], [address] Basophils/100 WBC (Bld) 0.7 % Normal 0-1 [facility] Comment on above: Performed By: #### L 500.2500, L100.0100 ####[facility] [address] [place], [address] Eosinophils/100 WBC (Bld) 3.4 % Normal 0-5 [facility] Comment on above: Performed By: #### L 500.2500, L100.0100 ####[facility] [address] [place], [address] Erythrocyte distribution width (RBC) [Ratio] 15.5 % High 11.6-14.6 [facility] Comment on above: Performed By: #### L 500.2500, L100.0100 ####[facility] [address] [place], [address] Hematocrit (Bld) [Volume fraction] 38.5 % Normal 37-47 [facility] Comment on above: Performed By: #### L 500.2500, L100.0100 ####[facility] [address] [place], [address] Hemoglobin (Bld) [Mass/Vol] 12.0 g/dL Normal 12.0-15.0 [facility] Comment on above: Performed By: #### L 500.2500, L100.0100 ####[facility] [address] [place], [address] IG% 0.200 Normal 0.0-0.9 [facility] Comment on above: Result Comment: IG% - Immature Granulocytes (promyelocytes, myelocytes andmetamyelocytes) > 1% indicates that a LEFT SHIFT is Present. Performed By: #### L 500.2500, L100.0100 ####[facility] [address] [place], [address] Lymphocytes/100 WBC (Bld) 24.0 % Normal 19-41 [facility] Comment on above: Performed By: #### L 500.2500, L100.0100 ####[facility] [address] [place], [address] MCH (RBC) [Entitic mass] 25.5 pg Low 27.0-32.0 [facility] Comment on above: Performed By: #### L 500.2500, L100.0100 ####[facility] [address] [place], [address] MCHC (RBC) [Mass/Vol] 31.2 g/dL Low 32-36 [facility] Comment on above: Performed By: #### L 500.2500, L100.0100 ####[facility] [address] [place] [place], [address] MCV (RBC) [Entitic vol] 81.9 fL Normal 81-99 [facility] Comment on above: Performed By: #### L 500.2500, L100.0100 ####[facility] [address] [place], [address] Monocytes/100 WBC (Bld) 11.7 % High 0-10 [facility] Comment on above: Performed By: #### L 500.2500, L100.0100 ####[facility] [address] [place] [place], [address] Neutrophils/100 WBC (Bld) 60.0 % Normal 47-70 [facility] Comment on above: Performed By: #### L 500.2500, L100.0100 ####[facility] [address] [place], [address] Nucleated RBC (Bld) [#/Vol] 0 10*3/uL Normal 0-5 [facility] Comment on above: Performed By: #### L 500.2500, L100.0100 ####[facility] [address] [place] [place], [address] Platelet mean volume (Bld) [Entitic vol] 9.8 fL Normal 6.2-12.0 [facility] Comment on above: Performed By: #### L 500.2500, L100.0100 ####[facility] [address] [place], [address] Platelets (Bld) [#/Vol] 312 10*3/uL Normal 150-450 [facility] Comment on above: Performed By: #### L 500.2500, L100.0100 ####[facility] [address] [place], [address] RBC (Bld) [#/Vol] 4.70 10*6/uL Normal 4.2-5.4 [facility] Comment on above: Performed By: #### L 500.2500, L100.0100 ####[facility] [address] [place], [address] RDW SD 46.3 fl High 35.1-43.9 [facility] Comment on above: Performed By: #### L 500.2500, L100.0100 ####[facility] [address] [place], [address] WBC (Bld) [#/Vol] 6.0 10*3/uL Normal 4.4-11.[address] [facility] Comment on above: Performed By: #### L 500.2500, L100.0100 ####[facility] [address] [place], [address] Absolute Neut Normal 2.0-7.7 [facility] Comment on above: Result Comment: DUP Performed By: #### L 100.0100 ####[facility] [address] [place], [address] HCT Normal 37-47 [facility] Comment on above: Result Comment: DUP Performed By: #### L 100.0100 ####[facility] [address] [place], [address] HGB Normal 12.0-15.0 [facility] Comment on above: Result Comment: DUP Performed By: #### L 100.0100 ####[facility] [address] [place], [address] MCH Normal 27.0-32.0 [facility] Comment on above: Result Comment: DUP Performed By: #### L 100.0100 ####[facility] [address] [place], [address] MCHC Normal 32-36 [facility] Comment on above: Result Comment: DUP Performed By: #### L 100.0100 ####[facility] [address] [place], [address] MCV Normal 81-99 [facility] Comment on above: Result Comment: DUP Performed By: #### L 100.0100 ####[facility] [address] [place], [address] NEUT% Normal 47-70 [facility] Comment on above: Result Comment: DUP Performed By: #### L 100.0100 ####[facility] [address] [place], [address] PLT Normal 150-450 [facility] Comment on above: Result Comment: DUP Performed By: #### L 100.0100 ####[facility] [address] [place], [address] RBC Normal 4.2-5.4 [facility] Comment on above: Result Comment: DUP Performed By: #### L 100.0100 ####[facility] [address] [place], [address] RDW CV Normal 11.6-14.6 [facility] Comment on above: Result Comment: DUP Performed By: #### L 100.0100 ####[facility] [address] [place], [address] RDW SD Normal 35.1-43.9 [facility] Comment on above: Result Comment: DUP Performed By: #### L 100.0100 ####[facility] [address] [place], [place], [address] WBC Normal 4.4-11.0 [facility] Comment on above: Result Comment: DUP Performed By: #### L 100.0100 ####[facility] [address] [place], [place], [id number] Cardiology Visit Reporton Cardiology Visit Report Normal [facility] Determination of erythrocyte mean corpuscular volume (MCV)on 12-01-2021 MCV (RBC) [Entitic vol] 81.9 fL 81-99 [facility] Work Phone: Hematocrit Auto (Bld) [Volum e fraction]on 12-01-2021 Hematocrit (Bld) [Volume fraction] 38.5 % 37-47 [facility] Work Phone: Laboratory - Chemistry and C hemistry - challengeon 12-01-2021 CO2 [Moles/Vol] 28.0 mmol/L 21.0-32.0 [facility] Work Phone: Urea nitrogen/Creatinine [Mass ratio] 15.0 mg/mg 10-20 [facility] Work Phone: Laboratory - Hematology and Cell countson 12-01-2021 Erythrocyte distribution width (RBC) [Entitic vol] 46.3 fL 35.1-43.9 [facility] Work Phone: Erythrocyte distribution width (RBC) [Ratio] 15.5 % 11.6-14.6 [facility] Work Phone: Immature granulocytes/100 WBC (Bld) 0.200 % 0.0-0.9 [facility] Work Phone: Comment on above: IG% - Immature Granu locytes (promyelocytes, myelocytes and metamyelocytes) > 1% indicates that a LEFT SHIFT is Present. MCH (RBC) [Entitic mass] 25.5 pg 27.0-32.0 [facility] Work Phone: Nucleated RBC/100 WBC (Bld) [Ratio] 0 % 0-5 [facility] Work Phone: MCHC Auto (RBC) [Mass/Vol]on 12-01-2021 MCHC (RBC) [Mass/Vol] 31.2 g/dL 32-36 [facility] Work Phone: No Panel Informationon 12-01 Estimated GFR (MDRD) Amer 82 mL/min >60 [facility] Work Phone: Comment on above: GFR Calc Estimated GFR (MDRD) Non-Af Amer 68 mL/min >60 [facility] Work Phone: Comment on above: Non- GFR Calc Platelets bldon 12-01-2021 Platelets (Bld) [#/Vol] 312 10*3/uL 150-450 [facility] Work Phone: Serum or plasma calcium lauren urement (mass/volume)on 12-01-2021 Calcium [Mass/Vol] 9.3 mg/dL 8.5-10.[address] [facility] Work Phone: Serum or plasma creatinine m easurement (mass/volume)on 12-01-2021 Creatinine [Mass/Vol] 0.87 mg/dL 0.55-1.02 [facility] Work Phone: Comment on above: The validity of the calculated GFR & GFRAA in patients over 70 years has not been determined. Clinical correlation is essential. Serum or plasma urea nitroge n measurement (mass/volume)on 12-01-2021 Urea nitrogen [Mass/Vol] 13 mg/dL 7-18 [facility] Work Phone: Thin prep Papanicolaou smear with manual screeningon 12-01-2021 Thin prep Papanicolaou smear with manual screening 5 5-15 [facility] Work Phone: LABORATORYOrdered By: Edith Curran on 11-20-2021 Basophil, [...] ml/min/1.73sqm Invalid Interpretation Code AO Chemistry S Urine Cultureon 11-02-2021 URC Normal [facility] Comment on above: Performed By: #### M 100.2200 ####[facility] [address] [place], [address] Brain without Contraston Brain without Contrast Normal [facility] Absolute lymphocyte counton 10-13-2021 Lymphocytes Auto (Unsp spec) [#/Vol] 2.00 10*3/uL 0.83-4.51 [facility] Work Phone: Basic Metabolic Profile (BMP )on 10-13-2021 BUN/CRE 19.6 RATIO Normal 10-20 [facility] Comment on above: Performed By: #### L 500.2500, L100.0100 ####[facility] [address] [place], [address] CA,Total 9.4 mg/dL Normal 8.5-10.1 [facility] Comment on above: Performed By: #### L 500.2500, L100.0100 ####[facility] [address] [place], [address] Chloride [Moles/Vol] 109 mmol/L High 98-107 [facility] Comment on above: Performed By: #### L 500.2500, L100.0100 ####[facility] [address] [place], [address] CO2 [Moles/Vol] 26.0 mmol/L Normal 21.0-32.0 [facility] Comment on above: Performed By: #### L 500.2500, L100.0100 ####[facility] [address] [place], [address] Creatinine [Mass/Vol] 0.87 mg/dL Normal 0.55-1.02 [facility] Comment on above: Result Comment: The validity of the calculated GFR GFRAA in patients over70 years has not been determined. Clinical correlation isessential. Performed By: #### L 500.2500, L100.0100 ####[facility] [address] [place], [address] EST GFR - AA 82 mL/min Normal >60 [facility] Comment on above: Result Comment: Afri can [place] GFR Calc Performed By: #### L 500.2500, L100.0100 ####[facility] [address] [place], [address] GAP 6 Normal 5-15 [facility] Comment on above: Performed By: #### L 500.2500, L100.0100 ####[facility] [address] [place], [address] GFR/1.73 sq M.predicted among non-blacks MDRD (S/P/Bld) [Vol rate/Area] 68 mL/min/{1.73_m2} Normal >60 [facility] Comment on above: Result Comment: Non- GFR Calc Performed By: #### L 500.2500, L100.0100 ####[facility] [address] [place], [address] Glucose [Mass/Vol] 89 mg/dL Normal 74-[address] [facility] Comment on above: Performed By: #### L 500.2500, L100.0100 ####[facility] [address] [place], [address] Potassium [Moles/Vol] 4.3 mmol/L Normal 3.5-5.1 [facility] Comment on above: Performed By: #### L 500.2500, L100.0100 ####[facility] [address] [place], [address] Sodium [Moles/Vol] 141 mmol/L Normal 136-[address] [facility] Comment on above: Performed By: #### L 500.2500, L100.0100 ####[facility] [address] [place], [address] Urea nitrogen [Mass/Vol] 17 mg/dL Normal 7-18 [facility] Comment on above: Performed By: #### L 500.2500, L100.0100 ####[facility] [address] [place], [address] Basophil percentageon 2021 Basophils/100 WBC (Bld) 0.6 % 0-1 [facility] Work Phone: Chloride [Moles/Vol] 109 mmol/L 98-107 [facility] Work Phone: Eosinophils/100 WBC (Bld) 3.2 % 0-5 [facility] Work Phone: Glucose [Mass/Vol] 89 mg/dL 74-[address] [facility] Work Phone: Neutrophils (Bld) [#/Vol] 4.5 10*3/uL 2.0-7.7 [facility] Work Phone: Neutrophils/100 WBC (Bld) 61.6 % 47-70 [facility] Work Phone: Potassium [Moles/Vol] 4.3 mmol/L 3.5-5.1 [facility] Work Phone: Sodium [Moles/Vol] 141 mmol/L 136-[address] [facility] Work Phone: WBC (Bld) [#/Vol] 7.2 10*3/uL 4.4-11.[address] [facility] Work Phone: [phone] Blood erythrocytes count (nu mber/volume)on 10-13-2021 RBC (Bld) [#/Vol] 4.69 10*6/uL 4.2-5.4 [facility] Work Phone: Blood hemoglobin measurement (mass/volume)on 10-13-2021 Hemoglobin (Bld) [Mass/Vol] 12.1 g/dL 12.0-15.0 [facility] Work Phone: Blood lymphocytes/100 leukoc yteson 10-13-2021 Lymphocytes/100 WBC (Bld) 27.7 % 19-41 [facility] Work Phone: Blood monocytes/100 leukocyt eson 10-13-2021 Monocytes/100 WBC (Bld) 6.6 % 0-10 [facility] Work Phone: Blood platelet mean volumeon 10-13-2021 Platelet mean volume (Bld) [Entitic vol] 10.3 fL 6.2-12.0 [facility] Work Phone: CBC W/Diff, Automatedon 09-22 Absolute Lymph 2.00 X10 3/uL Normal 0.83-4.51 [facility] Comment on above: Performed By: #### L 500.2500, L100.0100 ####[facility] [address] [place], [address] Absolute Neut 4.5 X10 3/uL Normal 2.0-7.7 [facility] Comment on above: Performed By: #### L 500.2500, L100.0100 ####[facility] [address] [place], [address] Basophils/100 WBC (Bld) 0.6 % Normal 0-1 [facility] Comment on above: Performed By: #### L 500.2500, L100.0100 ####[facility] [address] [place], [address] Eosinophils/100 WBC (Bld) 3.2 % Normal 0-5 [facility] Comment on above: Performed By: #### L 500.2500, L100.0100 ####[facility] [address] [place], [address] Erythrocyte distribution width (RBC) [Ratio] 14.6 % Normal 11.6-14.6 [facility] Comment on above: Performed By: #### L 500.2500, L100.0100 ####[facility] [address] [place], [address] Hematocrit (Bld) [Volume fraction] 39.7 % Normal 37-47 [facility] Comment on above: Performed By: #### L 500.2500, L100.0100 ####[facility] [address] [place], [address] Hemoglobin (Bld) [Mass/Vol] 12.1 g/dL Normal 12.0-15.0 [facility] Comment on above: Performed By: #### L 500.2500, L100.0100 ####[facility] [address] [place], [address] IG% 0.300 Normal 0.0-0.9 [facility] Comment on above: Result Comment: IG% - Immature Granulocytes (promyelocytes, myelocytes andmetamyelocytes) > 1% indicates that a LEFT SHIFT is Present. Performed By: #### L 500.2500, L100.0100 ####[facility] [address] [place], [address] Lymphocytes/100 WBC (Bld) 27.7 % Normal 19-41 [facility] Comment on above: Performed By: #### L 500.2500, L100.0100 ####[facility] [address] [place], [address] MCH (RBC) [Entitic mass] 25.8 pg Low 27.0-32.0 [facility] Comment on above: Performed By: #### L 500.2500, L100.0100 ####[facility] [address] [place], [address] MCHC (RBC) [Mass/Vol] 30.5 g/dL Low 32-36 [facility] Comment on above: Performed By: #### L 500.2500, L100.0100 ####[facility] [address] [place], [address] MCV (RBC) [Entitic vol] 84.6 fL Normal 81-99 [facility] Comment on above: Performed By: #### L 500.2500, L100.0100 ####[facility] [address] [place], [address] Monocytes/100 WBC (Bld) 6.6 % Normal 0-10 [facility] Comment on above: Performed By: #### L 500.2500, L100.0100 ####[facility] [address] [place], [address] Neutrophils/100 WBC (Bld) 61.6 % Normal 47-70 [facility] Comment on above: Performed By: #### L 500.2500, L100.0100 ####[facility] [address] [place], [address] Nucleated RBC (Bld) [#/Vol] 0 10*3/uL Normal 0-5 [facility] Comment on above: Performed By: #### L 500.2500, L100.0100 ####[facility] [address] [place], [address] Platelet mean volume (Bld) [Entitic vol] 10.3 fL Normal 6.2-12.0 [facility] Comment on above: Performed By: #### L 500.2500, L100.0100 ####[facility] [address] [place], [address] Platelets (Bld) [#/Vol] 343 10*3/uL Normal 150-450 [facility] Comment on above: Performed By: #### L 500.2500, L100.0100 ####[facility] [address] [place], [address] RBC (Bld) [#/Vol] 4.69 10*6/uL Normal 4.2-5.4 [facility] Comment on above: Performed By: #### L 500.2500, L100.0100 ####[facility] [address] [place], [address] RDW SD 44.8 fl High 35.1-43.9 [facility] Comment on above: Performed By: #### L 500.2500, L100.0100 ####[facility] [address] [place], [place], [address] WBC (Bld) [#/Vol] 7.2 10*3/uL Normal 4.4-11.[address] [facility] Comment on above: Performed By: #### L 500.2500, L100.0100 ####[facility] [address] [place], [address] Determination of erythrocyte mean corpuscular volume (MCV)on 10-13-2021 MCV (RBC) [Entitic vol] 84.6 fL 81-99 [facility] Work Phone: Hematocrit Auto (Bld) [Volum e fraction]on 10-13-2021 Hematocrit (Bld) [Volume fraction] 39.7 % 37-47 [facility] Work Phone: Laboratory - Chemistry and C hemistry - challengeon 10-13-2021 CO2 [Moles/Vol] 26.0 mmol/L 21.0-32.0 [facility] Work Phone: Urea nitrogen/Creatinine [Mass ratio] 19.6 mg/mg 10-20 [facility] Work Phone: Laboratory - Hematology and Cell countson 10-13-2021 Erythrocyte distribution width (RBC) [Entitic vol] 44.8 fL 35.1-43.9 [facility] Work Phone: Erythrocyte distribution width (RBC) [Ratio] 14.6 % 11.6-14.6 [facility] Work Phone: Immature granulocytes/100 WBC (Bld) 0.300 % 0.0-0.9 [facility] Work Phone: Comment on above: IG% - Immature Granu locytes (promyelocytes, myelocytes and metamyelocytes) > 1% indicates that a LEFT SHIFT is Present. MCH (RBC) [Entitic mass] 25.8 pg 27.0-32.0 [facility] Work Phone: Nucleated RBC/100 WBC (Bld) [Ratio] 0 % 0-5 [facility] Work Phone: MCHC Auto (RBC) [Mass/Vol]on 10-13-2021 MCHC (RBC) [Mass/Vol] 30.5 g/dL 32-36 [facility] Work Phone: No Panel Informationon 10-13 Estimated GFR (MDRD) Amer 82 mL/min >60 [facility] Work Phone: Comment on above: GFR Calc Estimated GFR (MDRD) Non-Af Amer 68 mL/min >60 [facility] Work Phone: Comment on above: Non- GFR Calc Platelets bldon 10-13-2021 Platelets (Bld) [#/Vol] 343 10*3/uL 150-450 [facility] Work Phone: Serum or plasma calcium lauren urement (mass/volume)on 10-13-2021 Calcium [Mass/Vol] 9.4 mg/dL 8.5-10.[address] [facility] Work Phone: Serum or plasma creatinine m easurement (mass/volume)on 10-13-2021 Creatinine [Mass/Vol] 0.87 mg/dL 0.55-1.02 [facility] Work Phone: Comment on above: The validity of the calculated GFR & GFRAA in patients over 70 years has not been determined. Clinical correlation is essential. Serum or plasma urea nitroge n measurement (mass/volume)on 10-13-2021 Urea nitrogen [Mass/Vol] 17 mg/dL 7-18 [facility] Work Phone: Thin prep Papanicolaou smear with manual screeningon 10-13-2021 Thin prep Papanicolaou smear with manual screening 6 5-15 [facility] Work Phone: Pulmonary Visit Reporton Pulmonary Visit Report Normal [facility] Echo Completeon 10-04-2021 Echo Complete Normal [facility] Bronchoprovocation Challenge on 09-28-2021 Bronchoprovocation Challenge Normal [facility] 6 Minute Walk Teston 022 6 Minute Walk Test Normal [facility] Absolute lymphocyte counton 09-15-2021 Lymphocytes Auto (Unsp spec) [#/Vol] 1.68 10*3/uL 0.83-4.51 [facility] Work Phone: Basophil percentageon 2021 Basophils/100 WBC (Bld) 0.7 % 0-1 [facility] Work Phone: Eosinophils/100 WBC (Bld) 4.1 % 0-5 [facility] Work Phone: Neutrophils (Bld) [#/Vol] 4.4 10*3/uL 2.0-7.7 [facility] Work Phone: Neutrophils/100 WBC (Bld) 62.6 % 47-70 [facility] Work Phone: WBC (Bld) [#/Vol] 7.0 10*3/uL 4.4-11.[address] [facility] Work Phone: [phone] Blood erythrocytes count (nu mber/volume)on 09-15-2021 RBC (Bld) [#/Vol] 3.99 10*6/uL 4.2-5.4 [facility] Work Phone: Blood hemoglobin measurement (mass/volume)on 09-15-2021 Hemoglobin (Bld) [Mass/Vol] 10.7 g/dL 12.0-15.0 [facility] Work Phone: Blood lymphocytes/100 leukoc yteson 09-15-2021 Lymphocytes/100 WBC (Bld) 23.9 % 19-41 [facility] Work Phone: Blood monocytes/100 leukocyt eson 09-15-2021 Monocytes/100 WBC (Bld) 8.4 % 0-10 [facility] Work Phone: Blood platelet mean volumeon 09-15-2021 Platelet mean volume (Bld) [Entitic vol] 10.0 fL 6.2-12.0 [facility] Work Phone: CBC W/Diff, Automatedon 05-2 -2021 Absolute Lymph 1.68 X10 3/uL Normal 0.83-4.51 [facility] Comment on above: Performed By: #### L 100.0100 ####[facility] [address] [place], [address] Absolute Neut 4.4 X10 3/uL Normal 2.0-7.7 [facility] Comment on above: Performed By: #### L 100.0100 ####[facility] [address] [place], [address] Basophils/100 WBC (Bld) 0.7 % Normal 0-1 [facility] [facility] Comment on above: Performed By: #### L 100.0100 ####[facility] [address] [place], [address] Eosinophils/100 WBC (Bld) 4.1 % Normal 0-5 [facility] Comment on above: Performed By: #### L 100.0100 ####[facility] [address] [place], [address] Erythrocyte distribution width (RBC) [Ratio] 14.4 % Normal 11.6-14.6 [facility] Comment on above: Performed By: #### L 100.0100 ####[facility] [address] [place], [address] Hematocrit (Bld) [Volume fraction] 33.8 % Low 37-47 [facility] Comment on above: Performed By: #### L 100.0100 ####[facility] [address] [place], [address] Hemoglobin (Bld) [Mass/Vol] 10.7 g/dL Low 12.0-15.0 [facility] Comment on above: Performed By: #### L 100.0100 ####[facility] [address] [place], [address] IG% 0.300 Normal 0.0-0.9 [facility] Comment on above: Result Comment: IG% - Immature Granulocytes (promyelocytes, myelocytes andmetamyelocytes) > 1% indicates that a LEFT SHIFT is Present. Performed By: #### L 100.0100 ####[facility] [address] [place], [address] Lymphocytes/100 WBC (Bld) 23.9 % Normal 19-41 [facility] Comment on above: Performed By: #### L 100.0100 ####[facility] [address] [place], [address] MCH (RBC) [Entitic mass] 26.8 pg Low 27.0-32.0 [facility] Comment on above: Performed By: #### L 100.0100 ####[facility] [address] [place], [address] MCHC (RBC) [Mass/Vol] 31.7 g/dL Low 32-36 [facility] Comment on above: Performed By: #### L 100.0100 ####[facility] [address] [place], [address] MCV (RBC) [Entitic vol] 84.7 fL Normal 81-99 [facility] Comment on above: Performed By: #### L 100.0100 ####[facility] [address] [place], [address] Monocytes/100 WBC (Bld) 8.4 % Normal 0-10 [facility] Comment on above: Performed By: #### L 100.0100 ####[facility] [address] [place], [address] Neutrophils/100 WBC (Bld) 62.6 % Normal 47-70 [facility] Comment on above: Performed By: #### L 100.0100 ####[facility] [address] [place], [address] Nucleated RBC (Bld) [#/Vol] 0 10*3/uL Normal 0-5 [facility] Comment on above: Performed By: #### L 100.0100 ####[facility] [address] [place], [address] Platelet mean volume (Bld) [Entitic vol] 10.0 fL Normal 6.2-12.0 [facility] Comment on above: Performed By: #### L 100.0100 ####[facility] [address] [place], [address] Platelets (Bld) [#/Vol] 320 10*3/uL Normal 150-450 [facility] Comment on above: Performed By: #### L 100.0100 ####[facility] [address] [place], [address] RBC (Bld) [#/Vol] 3.99 10*6/uL Low 4.2-5.4 [facility] Comment on above: Performed By: #### L 100.0100 ####[facility] [address] [place], [address] RDW SD 44.5 fl High 35.1-43.9 [facility] Comment on above: Performed By: #### L 100.0100 ####[facility] [address] [place], [address] WBC (Bld) [#/Vol] 7.0 10*3/uL Normal 4.4-11.[address] [facility] Comment on above: Performed By: #### L 100.0100 ####[facility] [address] [place], [address] Determination of erythrocyte mean corpuscular volume (MCV)on 09-15-2021 MCV (RBC) [Entitic vol] 84.7 fL 81-99 [facility] Work Phone: Hematocrit Auto (Bld) [Volum e fraction]on 09-15-2021 Hematocrit (Bld) [Volume fraction] 33.8 % 37-47 [facility] Work Phone: Laboratory - Hematology and Cell countson 09-15-2021 Erythrocyte distribution width (RBC) [Entitic vol] 44.5 fL 35.1-43.9 [facility] Work Phone: Erythrocyte distribution width (RBC) [Ratio] 14.4 % 11.6-14.6 [facility] Work Phone: Immature granulocytes/100 WBC (Bld) 0.300 % 0.0-0.9 [facility] Work Phone: Comment on above: IG% - Immature Granu locytes (promyelocytes, myelocytes and metamyelocytes) > 1% indicates that a LEFT SHIFT is Present. MCH (RBC) [Entitic mass] 26.8 pg 27.0-32.0 [facility] Work Phone: Nucleated RBC/100 WBC (Bld) [Ratio] 0 % 0-5 [facility] Work Phone: MCHC Auto (RBC) [Mass/Vol]on 09-15-2021 MCHC (RBC) [Mass/Vol] 31.7 g/dL 32-36 [facility] Work Phone: [phone] Platelets bldon 09-15-2021 Platelets (Bld) [#/Vol] 320 10*3/uL 150-450 [facility] Work Phone: Pulmonary Visit Reporton Pulmonary Visit Report Normal [facility] Cardiology Visit Reporton Cardiology Visit Report Normal [facility] Urine Cultureon 08-27-2021 URC Normal [facility] Comment on above: Performed By: #### M 100.2200 ####[facility] [address] [place], [address] Culture, urineon 08-25-2021 Bacteria identified Cx Nom (U) Klebsiella pneumoniae sp pneum [facility] Work Phone: Pulmonary Function Report Co mpon 08-17-2021 Pulmonary Function Report Comp Normal [facility] Absolute lymphocyte counton 08-11-2021 Lymphocytes Auto (Unsp spec) [#/Vol] 1.49 10*3/uL 0.83-4.51 [facility] Work Phone: BNP,B-Type NATRIURETIC PEPTI [employer] 08-11-2021 Natriuretic peptide B (Bld) [Mass/Vol] 112.1 pg/mL High 0-100 [facility] Comment on above: Performed By: #### L 100.0100, L501.5200, L503.6620 ####[facility] [address] [place], [address] Basic Metabolic Profile (BMP )on 08-11-2021 BUN/CRE 28.1 RATIO High 10-20 [facility] Comment on above: Performed By: #### L 500.2500 ####[facility] [address] [place], [address] CA,Total 9.1 mg/dL Normal 8.5-10.1 [facility] Comment on above: Performed By: #### L 500.2500 ####[facility] [address] [place], [address] Chloride [Moles/Vol] 111 mmol/L High 98-107 [facility] Comment on above: Performed By: #### L 500.2500 ####[facility] [address] [place], [address] CO2 [Moles/Vol] 28.0 mmol/L Normal 21.0-32.0 [facility] Comment on above: Performed By: #### L 500.2500 ####[facility] [address] [place], [address] Creatinine [Mass/Vol] 0.78 mg/dL Normal 0.55-1.02 [facility] Comment on above: Result Comment: The validity of the calculated GFR GFRAA in patients over70 years has not been determined. Clinical correlation isessential. Performed By: #### L 500.2500 ####[facility] [address] [place], [address] EST GFR - AA 93 mL/min Normal >60 [facility] Comment on above: Result Comment: Afri can [place] GFR Calc Performed By: #### L 500.2500 ####[facility] [address] [place], [address] GAP 3 Low 5-15 [facility] Comment on above: Performed By: #### L 500.2500 ####[facility] [address] [place], [address] GFR/1.73 sq M.predicted among non-blacks MDRD (S/P/Bld) [Vol rate/Area] 77 mL/min/{1.73_m2} Normal >60 [facility] Comment on above: Result Comment: Non- GFR Calc Performed By: #### L 500.2500 ####[facility] [address] [place], [address] Glucose [Mass/Vol] 91 mg/dL Normal 74-[address] [facility] Comment on above: Performed By: #### L 500.2500 ####[facility] [address] [place], [address] Potassium [Moles/Vol] 4.1 mmol/L Normal 3.5-5.1 [facility] Comment on above: Performed By: #### L 500.2500 ####[facility] [address] [place], [address] Sodium [Moles/Vol] 142 mmol/L Normal 136-[address] [facility] Comment on above: Performed By: #### L 500.2500 ####[facility] [address] [place], [address] Urea nitrogen [Mass/Vol] 22 mg/dL High 7-18 [facility] Comment on above: Performed By: #### L 500.2500 ####[facility] [address] [place], [address] Basophil percentageon 2021 Basophils/100 WBC (Bld) 0.6 % 0-1 [facility] Work Phone: Chloride [Moles/Vol] 111 mmol/L 98-107 [facility] Work Phone: Eosinophils/100 WBC (Bld) 3.1 % 0-5 [facility] Work Phone: Glucose [Mass/Vol] 91 mg/dL 74-[address] [facility] Work Phone: Neutrophils (Bld) [#/Vol] 4.6 10*3/uL 2.0-7.7 [facility] Work Phone: Neutrophils/100 WBC (Bld) 66.6 % 47-70 [facility] Work Phone: Potassium [Moles/Vol] 4.1 mmol/L 3.5-5.1 [facility] Work Phone: Sodium [Moles/Vol] 142 mmol/L 136-[address] [facility] Work Phone: WBC (Bld) [#/Vol] 6.8 10*3/uL 4.4-11.[address] [facility] Work Phone: Blood erythrocytes count (nu mber/volume)on 08-11-2021 RBC (Bld) [#/Vol] 4.20 10*6/uL 4.2-5.4 [facility] Work Phone: Blood hemoglobin measurement (mass/volume)on 08-11-2021 Hemoglobin (Bld) [Mass/Vol] 11.1 g/dL 12.0-15.0 [facility] Work Phone: Blood lymphocytes/100 leukoc yteson 08-11-2021 Lymphocytes/100 WBC (Bld) 21.8 % 19-41 [facility] Work Phone: Blood monocytes/100 leukocyt eson 08-11-2021 Monocytes/100 WBC (Bld) 7.5 % 0-10 [facility] Work Phone: Blood platelet mean volumeon 08-11-2021 Platelet mean volume (Bld) [Entitic vol] 9.6 fL 6.2-12.0 [facility] Work Phone: CBC W/Diff, Automatedon - Absolute Lymph 1.49 X10 3/uL Normal 0.83-4.51 [facility] Comment on above: Performed By: #### L 100.0100, L501.5200, L503.6620 ####[facility] [address] [place], [address] Absolute Neut 4.6 X10 3/uL Normal 2.0-7.7 [facility] Comment on above: Performed By: #### L 100.0100, L501.5200, L503.6620 ####[facility] [address] [place], [address] Basophils/100 WBC (Bld) 0.6 % Normal 0-1 [facility] Comment on above: Performed By: #### L 100.0100, L501.5200, L503.6620 ####[facility] [address] [place], [address] Eosinophils/100 WBC (Bld) 3.1 % Normal 0-5 [facility] Comment on above: Performed By: #### L 100.0100, L501.5200, L503.6620 ####[facility] [address] [place], [address] Erythrocyte distribution width (RBC) [Ratio] 14.9 % High 11.6-14.6 [facility] Comment on above: Performed By: #### L 100.0100, L501.5200, L503.6620 ####[facility] [address] [place], [address] Hematocrit (Bld) [Volume fraction] 35.8 % Low 37-47 [facility] Comment on above: Performed By: #### L 100.0100, L501.5200, L503.6620 ####[facility] [address] [place], [address] Hemoglobin (Bld) [Mass/Vol] 11.1 g/dL Low 12.0-15.0 [facility] Comment on above: Performed By: #### L 100.0100, L501.5200, L503.6620 ####[facility] [address] [place], [address] IG% 0.400 Normal 0.0-0.9 [facility] Comment on above: Result Comment: IG% - Immature Granulocytes (promyelocytes, myelocytes andmetamyelocytes) > 1% indicates that a LEFT SHIFT is Present. Performed By: #### L 100.0100, L501.5200, L503.6620 ####[facility] [address] [place], [address] Lymphocytes/100 WBC (Bld) 21.8 % Normal 19-41 [facility] Comment on above: Performed By: #### L 100.0100, L501.5200, L503.6620 ####[facility] [address] [place], [address] MCH (RBC) [Entitic mass] 26.4 pg Low 27.0-32.0 [facility] Comment on above: Performed By: #### L 100.0100, L501.5200, L503.6620 ####[facility] [address] [place], [address] MCHC (RBC) [Mass/Vol] 31.0 g/dL Low 32-36 [facility] Comment on above: Performed By: #### L 100.0100, L501.5200, L503.6620 ####[facility] [address] [place], [address] MCV (RBC) [Entitic vol] 85.2 fL Normal 81-99 [facility] Comment on above: Performed By: #### L 100.0100, L501.5200, L503.6620 ####[facility] [address] [place], [address] Monocytes/100 WBC (Bld) 7.5 % Normal 0-10 [facility] Comment on above: Performed By: #### L 100.0100, L501.5200, L503.6620 ####[facility] [address], [address] Neutrophils/100 WBC (Bld) 66.6 % Normal 47-70 [facility] Comment on above: Performed By: #### L 100.0100, L501.5200, L503.6620 ####[facility] [address] [place], [address] Nucleated RBC (Bld) [#/Vol] 0 10*3/uL Normal 0-5 [facility] Comment on above: Performed By: #### L 100.0100, L501.5200, L503.6620 ####[facility] [address] [place], [address] Platelet mean volume (Bld) [Entitic vol] 9.6 fL Normal 6.2-12.0 [facility] Comment on above: Performed By: #### L 100.0100, L501.5200, L503.6620 ####[facility] [address] [place], [address] Platelets (Bld) [#/Vol] 330 10*3/uL Normal 150-450 [facility] Comment on above: Performed By: #### L 100.0100, L501.5200, L503.6620 ####[facility] [address] [place], [address] RBC (Bld) [#/Vol] 4.20 10*6/uL Normal 4.2-5.4 [facility] Comment on above: Performed By: #### L 100.0100, L501.5200, L503.6620 ####[facility] [address] [place], [address] RDW SD 46.3 fl High 35.1-43.9 [facility] Comment on above: Performed By: #### L 100.0100, L501.5200, L503.6620 ####[facility] [address] [place], [address] WBC (Bld) [#/Vol] 6.8 10*3/uL Normal 4.4-11.[address] [facility] Comment on above: Performed By: #### L 100.0100, L501.5200, L503.6620 ####[facility] [address] [place], [address] Determination of erythrocyte mean corpuscular volume (MCV)on 08-11-2021 MCV (RBC) [Entitic vol] 85.2 fL 81-99 [facility] Work Phone: Hematocrit Auto (Bld) [Volum e fraction]on 08-11-2021 Hematocrit (Bld) [Volume fraction] 35.8 % 37-47 [facility] Work Phone: Laboratory - Chemistry and C hemistry - challengeon 08-11-2021 CO2 [Moles/Vol] 28.0 mmol/L 21.0-32.0 [facility] Work Phone: Magnesium [Mass/Vol] 2.2 mg/dL 1.6-2.6 [facility] Work Phone: Natriuretic peptide B (Bld) [Mass/Vol] 112.1 pg/mL 0-100 [facility] Work Phone: Urea nitrogen/Creatinine [Mass ratio] 28.1 mg/mg 10-20 [facility] Work Phone: Laboratory - Hematology and Cell countson 08-11-2021 Erythrocyte distribution width (RBC) [Entitic vol] 46.3 fL 35.1-43.9 [facility] Work Phone: Erythrocyte distribution width (RBC) [Ratio] 14.9 % 11.6-14.6 [facility] Work Phone: Immature granulocytes/100 WBC (Bld) 0.400 % 0.0-0.9 [facility] Work Phone: Comment on above: IG% - Immature Granu locytes (promyelocytes, myelocytes and metamyelocytes) > 1% indicates that a LEFT SHIFT is Present. MCH (RBC) [Entitic mass] 26.4 pg 27.0-32.0 [facility] Work Phone: Nucleated RBC/100 WBC (Bld) [Ratio] 0 % 0-5 [facility] Work Phone: MCHC Auto (RBC) [Mass/Vol]on 08-11-2021 MCHC (RBC) [Mass/Vol] 31.0 g/dL 32-36 [facility] Work Phone: Magnesiumon 08-11-2021 Magnesium [Mass/Vol] 2.2 mg/dL Normal 1.6-2.6 [facility] Comment on above: Performed By: #### L 100.0100, L501.5200, L503.6620 ####[facility] [address] [place], [place], [id number] No Panel Informationon 08-11 Estimated GFR (MDRD) Amer 93 mL/min >60 [facility] Work Phone: Comment on above: GFR Calc Estimated GFR (MDRD) Non-Af Amer 77 mL/min >60 [facility] Work Phone: Comment on above: Non- GFR Calc Platelets bldon 08-11-2021 Platelets (Bld) [#/Vol] 330 10*3/uL 150-450 [facility] Work Phone: Serum or plasma calcium lauren urement (mass/volume)on 08-11-2021 Calcium [Mass/Vol] 9.1 mg/dL 8.5-10.[address] [facility] Work Phone: Serum or plasma creatinine m easurement (mass/volume)on 08-11-2021 Creatinine [Mass/Vol] 0.78 mg/dL 0.55-1.02 [facility] Work Phone: Comment on above: The validity of the calculated GFR & GFRAA in patients over 70 years has not been determined. Clinical correlation is essential. Serum or plasma urea nitroge n measurement (mass/volume)on 08-11-2021 Urea nitrogen [Mass/Vol] 22 mg/dL 7-18 [facility] Work Phone: Thin prep Papanicolaou smear with manual screeningon 08-11-2021 Thin prep Papanicolaou smear with manual screening 3 5-15 [facility] Work Phone: Cardiology Visit Reporton Cardiology Visit Report Normal [facility] Cardiac Cath Diagnosticon Cardiac Cath Diagnostic Normal [facility] Cardiac Cath Interventionon 07-22-2021 Cardiac Cath Intervention Normal [facility] Absolute lymphocyte counton 07-11-2021 Lymphocytes Auto (Unsp spec) [#/Vol] 1.18 10*3/uL 0.83-4.51 [facility] Work Phone: Basic Metabolic Profile (BMP )on 07-11-2021 BUN/CRE 19.2 RATIO Normal 10- [facility] Comment on above: Performed By: #### L 300.4310, L500.2500, L300.3900, L100.0100 ####[facility] [address] [place], [address] CA,Total 9.6 mg/dL Normal 8.5-10.1 [facility] Comment on above: Performed By: #### L 300.4310, L500.2500, L300.3900, L100.0100 ####[facility] [address] [place], [address] Chloride [Moles/Vol] 109 mmol/L High 98-107 [facility] Comment on above: Performed By: #### L 300.4310, L500.2500, L300.3900, L100.0100 ####[facility] [address] [place], [address] CO2 [Moles/Vol] 27.0 mmol/L Normal 21.0-32.0 [facility] Comment on above: Performed By: #### L 300.4310, L500.2500, L300.3900, L100.0100 ####[facility] [address] [place], [address] Creatinine [Mass/Vol] 0.89 mg/dL Normal 0.55-1.02 [facility] Comment on above: Result Comment: The validity of the calculated GFR GFRAA in patients over70 years has not been determined. Clinical correlation isessential. Performed By: #### L 300.4310, L500.2500, L300.3900, L100.0100 ####[facility] [address] [place], [address] EST GFR - AA 80 mL/min Normal >60 [facility] Comment on above: Result Comment: Afri can [place] GFR Calc Performed By: #### L 300.4310, L500.2500, L300.3900, L100.0100 ####[facility] [address] [place], [address] GAP 5 Normal 5-15 [facility] Comment on above: Performed By: #### L 300.4310, L500.2500, L300.3900, L100.0100 ####[facility] [address] [place], [address] GFR/1.73 sq M.predicted among non-blacks MDRD (S/P/Bld) [Vol rate/Area] 66 mL/min/{1.73_m2} Normal >60 [facility] Comment on above: Result Comment: Non- GFR Calc Performed By: #### L 300.4310, L500.2500, L300.3900, L100.0100 ####[facility] [address] [place], [address] Glucose [Mass/Vol] 124 mg/dL High 74-[address] [facility] Comment on above: Result Comment: Fast ing Glucose result from 100 to 125 mg/dLsuggests IMPAIRED HOMEOSTASIS per A.D.A. criteria. Performed By: #### L 300.4310, L500.2500, L300.3900, L100.0100 ####[facility] [address] [place], [address] Potassium [Moles/Vol] 3.9 mmol/L Normal 3.5-5.1 [facility] Comment on above: Performed By: #### L 300.4310, L500.2500, L300.3900, L100.0100 ####[facility] [address] [place], [address] Sodium [Moles/Vol] 141 mmol/L Normal 136-[address] [facility] Comment on above: Performed By: #### L 300.4310, L500.2500, L300.3900, L100.0100 ####[facility] [address] [place], [address] Urea nitrogen [Mass/Vol] 17 mg/dL Normal 7-18 [facility] Comment on above: Performed By: #### L 300.4310, L500.2500, L300.3900, L100.0100 ####[facility] [address] [place], [place], [address] Basophil percentageon 2021 Basophils/100 WBC (Bld) 0.7 % 0-1 [facility] Work Phone: Chloride [Moles/Vol] 109 mmol/L 98-107 [facility] Work Phone: Eosinophils/100 WBC (Bld) 2.9 % 0-5 [facility] Work Phone: Glucose [Mass/Vol] 124 mg/dL 74-[address] [facility] Work Phone: Comment on above: Fasting Glucose resu lt from 100 to 125 mg/dL suggests IMPAIRED HOMEOSTASIS per A.D.A. criteria. Neutrophils (Bld) [#/Vol] 5.3 10*3/uL 2.0-7.7 [facility] Work Phone: Neutrophils/100 WBC (Bld) 73.3 % 47-70 [facility] Work Phone: Potassium [Moles/Vol] 3.9 mmol/L 3.5-5.1 [facility] Work Phone: Sodium [Moles/Vol] 141 mmol/L 136-[address] [facility] Work Phone: WBC (Bld) [#/Vol] 7.2 10*3/uL 4.4-11.[address] [facility] Work Phone: Blood erythrocytes count (nu mber/volume)on 07-11-2021 RBC (Bld) [#/Vol] 4.05 10*6/uL 4.2-5.4 [facility] Work Phone: Blood hemoglobin measurement (mass/volume)on 07-11-2021 Hemoglobin (Bld) [Mass/Vol] 11.0 g/dL 12.0-15.0 [facility] Work Phone: Blood lymphocytes/100 leukoc yteson 03-21-2022 Lymphocytes/100 WBC (Bld) 16.3 % 19-41 [facility] Work Phone: Blood monocytes/100 leukocyt eson 07-11-2021 Monocytes/100 WBC (Bld) 6.2 % 0-10 [facility] Work Phone: Blood platelet mean volumeon 07-11-2021 Platelet mean volume (Bld) [Entitic vol] 9.4 fL 6.2-12.0 [facility] Work Phone: CBC W/Diff, Automatedon - Absolute Lymph 1.18 X10 3/uL Normal 0.83-4.51 [facility] Comment on above: Performed By: #### L 300.4310, L500.2500, L300.3900, L100.0100 ####[facility] [address] [place], [address] Absolute Neut 5.3 X10 3/uL Normal 2.0-7.7 [facility] Comment on above: Performed By: #### L 300.4310, L500.2500, L300.3900, L100.0100 ####[facility] [address] [place], [address] Basophils/100 WBC (Bld) 0.7 % Normal 0-1 [facility] Comment on above: Performed By: #### L 300.4310, L500.2500, L300.3900, L100.0100 ####[facility] [address] [place], [address] Eosinophils/100 WBC (Bld) 2.9 % Normal 0-5 [facility] Comment on above: Performed By: #### L 300.4310, L500.2500, L300.3900, L100.0100 ####[facility] [address] [place], [address] Erythrocyte distribution width (RBC) [Ratio] 15.7 % High 11.6-14.6 [facility] Comment on above: Performed By: #### L 300.4310, L500.2500, L300.3900, L100.0100 ####[facility] [address] [place], [address] Hematocrit (Bld) [Volume fraction] 33.9 % Low 37-47 [facility] Comment on above: Performed By: #### L 300.4310, L500.2500, L300.3900, L100.0100 ####[facility] [id number] [place], [address] Hemoglobin (Bld) [Mass/Vol] 11.0 g/dL Low 12.0-15.0 [facility] Comment on above: Performed By: #### L 300.4310, L500.2500, L300.3900, L100.0100 ####[facility] [id number] [place], [address] IG% 0.600 Normal 0.0-0.9 [facility] Comment on above: Result Comment: IG% - Immature Granulocytes (promyelocytes, myelocytes andmetamyelocytes) > 1% indicates that a LEFT SHIFT is Present. Performed By: #### L 300.4310, L500.2500, L300.3900, L100.0100 ####[facility] [address] [place], [address] Lymphocytes/100 WBC (Bld) 16.3 % Low 19-41 [facility] Comment on above: Performed By: #### L 300.4310, L500.2500, L300.3900, L100.0100 ####[facility] [address] [place], [address] MCH (RBC) [Entitic mass] 27.2 pg Normal 27.0-32.0 [facility] Comment on above: Performed By: #### L 300.4310, L500.2500, L300.3900, L100.0100 ####[facility] [address] [place], [address] MCHC (RBC) [Mass/Vol] 32.4 g/dL Normal 32-36 [facility] Comment on above: Performed By: #### L 300.4310, L500.2500, L300.3900, L100.0100 ####[facility] [address] [place], [address] MCV (RBC) [Entitic vol] 83.7 fL Normal 81-99 [facility] Comment on above: Performed By: #### L 300.4310, L500.2500, L300.3900, L100.0100 ####[facility] [address] [place], [address] Monocytes/100 WBC (Bld) 6.2 % Normal 0-10 [facility] Comment on above: Performed By: #### L 300.4310, L500.2500, L300.3900, L100.0100 ####[facility] [address] [place], [address] Neutrophils/100 WBC (Bld) 73.3 % High 47-70 [facility] Comment on above: Performed By: #### L 300.4310, L500.2500, L300.3900, L100.0100 ####[facility] [address] [place], [address] Nucleated RBC (Bld) [#/Vol] 0 10*3/uL Normal 0-5 [facility] Comment on above: Performed By: #### L 300.4310, L500.2500, L300.3900, L100.0100 ####[facility] [address] [place], [address] Platelet mean volume (Bld) [Entitic vol] 9.4 fL Normal 6.2-12.0 [facility] Comment on above: Performed By: #### L 300.4310, L500.2500, L300.3900, L100.0100 ####[facility] [address] [place], [address] Platelets (Bld) [#/Vol] 303 10*3/uL Normal 150-450 [facility] Comment on above: Performed By: #### L 300.4310, L500.2500, L300.3900, L100.0100 ####[facility] [address] [place], [address] RBC (Bld) [#/Vol] 4.05 10*6/uL Low 4.2-5.4 [facility] Comment on above: Performed By: #### L 300.4310, L500.2500, L300.3900, L100.0100 ####[facility] [address] [place], [address] RDW SD 47.4 fl High 35.1-43.9 [facility] Comment on above: Performed By: #### L 300.4310, L500.2500, L300.3900, L100.0100 ####[facility] [address] [place], [address] WBC (Bld) [#/Vol] 7.2 10*3/uL Normal 4.4-11.[address] [facility] Comment on above: Performed By: #### L 300.4310, L500.2500, L300.3900, L100.0100 ####[facility] [address] [place], [address] Chest PA and Lateralon 07-11 Chest PA and Lateral Normal [facility] Determination of erythrocyte mean corpuscular volume (MCV)on 07-11-2021 MCV (RBC) [Entitic vol] 83.7 fL 81-99 [facility] Work Phone: Hematocrit Auto (Bld) [Volum e fraction]on 07-11-2021 Hematocrit (Bld) [Volume fraction] 33.9 % 37-47 [facility] Work Phone: INR in Blood by Coagulation assayon 07-11-2021 INR Coag (Bld) [Relative time] 1.2 {INR} [facility] Work Phone: Laboratory - Chemistry and C hemistry - challengeon 07-11-2021 CO2 [Moles/Vol] 27.0 mmol/L 21.0-32.0 [facility] Work Phone: Urea nitrogen/Creatinine [Mass ratio] 19.2 mg/mg 10-20 [facility] Work Phone: Laboratory - Coagulationon 0 07-11-2021 aPTT Coag (Bld) [Time] 33.0 s 24.1-36.2 [facility] Work Phone: PT Coag (PPP) [Time] 14.9 s 11.7-14.9 [facility] Work Phone: Laboratory - Hematology and Cell countson 07-11-2021 Erythrocyte distribution width (RBC) [Entitic vol] 47.4 fL 35.1-43.9 [facility] Work Phone: Erythrocyte distribution width (RBC) [Ratio] 15.7 % 11.6-14.6 [facility] Work Phone: Immature granulocytes/100 WBC (Bld) 0.600 % 0.0-0.9 [facility] Work Phone: Comment on above: IG% - Immature Granu locytes (promyelocytes, myelocytes and metamyelocytes) > 1% indicates that a LEFT SHIFT is Present. MCH (RBC) [Entitic mass] 27.2 pg 27.0-32.0 [facility] Work Phone: Nucleated RBC/100 WBC (Bld) [Ratio] 0 % 0-5 [facility] Work Phone: MCHC Auto (RBC) [Mass/Vol]on 07-11-2021 MCHC (RBC) [Mass/Vol] 32.4 g/dL 32-36 [facility] Work Phone: No Panel Informationon 07-11 Estimated GFR (MDRD) Amer 80 mL/min >60 [facility] Work Phone: Comment on above: GFR Calc Estimated GFR (MDRD) Non-Af Amer 66 mL/min >60 [facility] Work Phone: Comment on above: Non- GFR Calc Partial Thromboplast Timeon 07-11-2021 aPTT Coag (Bld) [Time] 33.0 s Normal 24.1-36.2 [facility] Comment on above: Performed By: #### L 300.4310, L500.2500, L300.3900, L100.0100 ####[facility] [address] [place], [place], [phone] Platelets bldon 07-11-2021 Platelets (Bld) [#/Vol] 303 10*3/uL 150-450 [facility] Work Phone: Prothrombin Time w/INRon INR Coag (PPP) [Relative time] 1.2 {INR} Normal [facility] Comment on above: Performed By: #### L 300.4310, L500.2500, L300.3900, L100.0100 ####[facility] [address] [place], [place], [phone] PT Coag (PPP) [Time] 14.9 s Normal 11.7-14.9 [facility] Comment on above: Performed By: #### L 300.4310, L500.2500, L300.3900, L100.0100 ####[facility] [address] [place], [place], [phone] Serum or plasma calcium lauren urement (mass/volume)on 07-11-2021 Calcium [Mass/Vol] 9.6 mg/dL 8.5-10.[address] [facility] Work Phone: Serum or plasma creatinine m easurement (mass/volume)on 07-11-2021 Creatinine [Mass/Vol] 0.89 mg/dL 0.55-1.02 [facility] Work Phone: Comment on above: The validity of the calculated GFR & GFRAA in patients over 70 years has not been determined. Clinical correlation is essential. Serum or plasma urea nitroge n measurement (mass/volume)on 07-11-2021 Urea nitrogen [Mass/Vol] 17 mg/dL 7-18 [facility] Work Phone: Thin prep Papanicolaou smear with manual screeningon 07-11-2021 Thin prep Papanicolaou smear with manual screening 5 5-15 [facility] Work Phone: Emergency Department Summary on 07-07-2021 Emergency Department Summary Normal [facility] Emergency Department Summary on 07-03-2021 Emergency Department Summary Normal [facility] 12 Lead EKG performed by [facility] on 06-29-2021 12 Lead EKG performed by [facility] Normal [facility] Cardiology Visit Reporton Cardiology Visit Report Normal [facility] Absolute lymphocyte counton 06-09-2021 Lymphocytes Auto (Unsp spec) [#/Vol] 1.55 10*3/uL 0.83-4.51 [facility] Work Phone: Basophil percentageon 2021 Basophils/100 WBC (Bld) 0.7 % 0-1 [facility] Work Phone: Bilirubin [Mass/Vol] 0.50 mg/dL 0.20-1.00 [facility] Work Phone: Comment on above: For patients on eltr ombopag therapy, use of Dimension [place] TBIL is not recommended. Chloride [Moles/Vol] 107 mmol/L 98-107 [facility] Work Phone: Eosinophils/100 WBC (Bld) 2.8 % 0-5 [facility] Work Phone: Glucose [Mass/Vol] 85 mg/dL 74-[address] [facility] Work Phone: Neutrophils (Bld) [#/Vol] 4.8 10*3/uL 2.0-7.7 [facility] Work Phone: Neutrophils/100 WBC (Bld) 65.6 % 47-70 [facility] Work Phone: Potassium [Moles/Vol] 4.0 mmol/L 3.5-5.1 [facility] Work Phone: Protein [Mass/Vol] 7.7 g/dL 6.4-8.[address] [facility] Work Phone: Sodium [Moles/Vol] 140 mmol/L 136-[address] [facility] Work Phone: WBC (Bld) [#/Vol] 7.2 10*3/uL 4.4-11.[address] [facility] Work Phone: [phone] Blood erythrocytes count (nu mber/volume)on 06-09-2021 RBC (Bld) [#/Vol] 4.70 10*6/uL 4.2-5.4 [facility] Work Phone: Blood hemoglobin measurement (mass/volume)on 06-09-2021 Hemoglobin (Bld) [Mass/Vol] 13.1 g/dL 12.0-15.0 [facility] Work Phone: Blood lymphocytes/100 leukoc yteson 06-09-2021 Lymphocytes/100 WBC (Bld) 21.4 % 19-41 [facility] Work Phone: Blood monocytes/100 leukocyt eson 06-09-2021 Monocytes/100 WBC (Bld) 8.7 % 0-10 [facility] Work Phone: Blood platelet mean volumeon 06-09-2021 Platelet mean volume (Bld) [Entitic vol] 10.1 fL 6.2-12.0 [facility] Work Phone: CBC W/Diff, Automatedon 05-24 Absolute Lymph 1.55 X10 3/uL Normal 0.83-4.51 [facility] Comment on above: Performed By: #### L 500.4050, L506.1000, L501.9520, L100.0100 ####[facility] [address] [place], [address] Absolute Neut 4.8 X10 3/uL Normal 2.0-7.7 [facility] Comment on above: Performed By: #### L 500.4050, L506.1000, L501.9520, L100.0100 ####[facility] [address] [place], [address] Basophils/100 WBC (Bld) 0.7 % Normal 0-1 [facility] Comment on above: Performed By: #### L 500.4050, L506.1000, L501.9520, L100.0100 ####[facility] [address] [place], [address] Eosinophils/100 WBC (Bld) 2.8 % Normal 0-5 [facility] Comment on above: Performed By: #### L 500.4050, L506.1000, L501.9520, L100.0100 ####[facility] [address] [place], [address] Erythrocyte distribution width (RBC) [Ratio] 15.2 % High 11.6-14.6 [facility] Comment on above: Performed By: #### L 500.4050, L506.1000, L501.9520, L100.0100 ####[facility] [address] [place], [address] Hematocrit (Bld) [Volume fraction] 39.9 % Normal 37-47 [facility] Comment on above: Performed By: #### L 500.4050, L506.1000, L501.9520, L100.0100 ####[facility] [address] [place], [address] Hemoglobin (Bld) [Mass/Vol] 13.1 g/dL Normal 12.0-15.0 [facility] Comment on above: Performed By: #### L 500.4050, L506.1000, L501.9520, L100.0100 ####[facility] [address] [place], [address] IG% 0.800 Normal 0.0-0.9 [facility] Comment on above: Result Comment: IG% - Immature Granulocytes (promyelocytes, myelocytes andmetamyelocytes) > 1% indicates that a LEFT SHIFT is Present. Performed By: #### L 500.4050, L506.1000, L501.9520, L100.0100 ####[facility] [address] [place], [address] Lymphocytes/100 WBC (Bld) 21.4 % Normal 19-41 [facility] Comment on above: Performed By: #### L 500.4050, L506.1000, L501.9520, L100.0100 ####[facility] [address] [place], [address] MCH (RBC) [Entitic mass] 27.9 pg Normal 27.0-32.0 [facility] Comment on above: Performed By: #### L 500.4050, L506.1000, L501.9520, L100.0100 ####[facility] [address] [place], [address] MCHC (RBC) [Mass/Vol] 32.8 g/dL Normal 32-36 [facility] Comment on above: Performed By: #### L 500.4050, L506.1000, L501.9520, L100.0100 ####[facility] [address] [place], [address] MCV (RBC) [Entitic vol] 84.9 fL Normal 81-99 [facility] Comment on above: Performed By: #### L 500.4050, L506.1000, L501.9520, L100.0100 ####[facility] [address] [place], [address] Monocytes/100 WBC (Bld) 8.7 % Normal 0-10 [facility] Comment on above: Performed By: #### L 500.4050, L506.1000, L501.9520, L100.0100 ####[facility] [address] [place], [address] Neutrophils/100 WBC (Bld) 65.6 % Normal 47-70 [facility] Comment on above: Performed By: #### L 500.4050, L506.1000, L501.9520, L100.0100 ####[facility] [address] [place], [address] Nucleated RBC (Bld) [#/Vol] 0 10*3/uL Normal 0-5 [facility] Comment on above: Performed By: #### L 500.4050, L506.1000, L501.9520, L100.0100 ####[facility] [address] [place], [address] Platelet mean volume (Bld) [Entitic vol] 10.1 fL Normal 6.2-12.0 [facility] Comment on above: Performed By: #### L 500.4050, L506.1000, L501.9520, L100.0100 ####[facility] [address] [place], [address] Platelets (Bld) [#/Vol] 358 10*3/uL Normal 150-450 [facility] Comment on above: Performed By: #### L 500.4050, L506.1000, L501.9520, L100.0100 ####[facility] [address] [place], [address] RBC (Bld) [#/Vol] 4.70 10*6/uL Normal 4.2-5.4 [facility] Comment on above: Performed By: #### L 500.4050, L506.1000, L501.9520, L100.0100 ####[facility] [address] [place], [address] RDW SD 47.0 fl High 35.1-43.9 [facility] Comment on above: Performed By: #### L 500.4050, L506.1000, L501.9520, L100.0100 ####[facility] [address] [place], [address] WBC (Bld) [#/Vol] 7.2 10*3/uL Normal 4.4-11.[address] [facility] Comment on above: Performed By: #### L 500.4050, L506.1000, L501.9520, L100.0100 ####[facility] [address] [place], [address] Comprehensive Metabolic Prof [facility] 06-09-2021 Albumin [Mass/Vol] 3.2 g/dL Normal 3.2-5.[address] [facility] Comment on above: Performed By: #### L 500.4050, L506.1000, L501.9520, L100.0100 ####[facility] [address] [place], [address] Albumin/Globulin [Mass ratio] 0.7 {ratio} Low 0.9-2.4 [facility] Comment on above: Performed By: #### L 500.4050, L506.1000, L501.9520, L100.0100 ####[facility] [address] [place], [address] ALK P 128 U/L High 45-117 [facility] Comment on above: Performed By: #### L 500.4050, L506.1000, L501.9520, L100.0100 ####[facility] [address] [place], [address] ALT [Catalytic activity/Vol] 29 U/L Normal 13-56 [facility] Comment on above: Performed By: #### L 500.4050, L506.1000, L501.9520, L100.0100 ####[facility] [address] [place], [address] AST [Catalytic activity/Vol] 28 U/L Normal 15-37 [facility] Comment on above: Performed By: #### L 500.4050, L506.1000, L501.9520, L100.0100 ####[facility] [address] [place], [address] Bilirubin [Mass/Vol] 0.50 mg/dL Normal 0.20-1.00 [facility] Comment on above: Result Comment: For patients on eltrombopag therapy, use of Dimension [place] TBIL is not recommended. Performed By: #### L 500.4050, L506.1000, L501.9520, L100.0100 ####[facility] [address] [place], [address] BUN/CRE 23.6 RATIO High 10-20 [facility] Comment on above: Performed By: #### L 500.4050, L506.1000, L501.9520, L100.0100 ####[facility] [address] [place], [address] CA,Total 9.1 mg/dL Normal 8.5-10.1 [facility] Comment on above: Performed By: #### L 500.4050, L506.1000, L501.9520, L100.0100 ####[facility] [address] [place], [address] Chloride [Moles/Vol] 107 mmol/L Normal 98-107 [facility] Comment on above: Performed By: #### L 500.4050, L506.1000, L501.9520, L100.0100 ####[facility] [address] [place], [address] CO2 [Moles/Vol] 30.0 mmol/L Normal 21.0-32.0 [facility] Comment on above: Performed By: #### L 500.4050, L506.1000, L501.9520, L100.0100 ####[facility] [address] [place], [address] Creatinine [Mass/Vol] 0.98 mg/dL Normal 0.55-1.02 [facility] Comment on above: Result Comment: The validity of the calculated GFR GFRAA in patients over70 years has not been determined. Clinical correlation isessential. Performed By: #### L 500.4050, L506.1000, L501.9520, L100.0100 ####[facility] [address] [place], [address] EST GFR - AA 72 mL/min Normal >60 [facility] Comment on above: Result Comment: Afri can [place] GFR Calc Performed By: #### L 500.4050, L506.1000, L501.9520, L100.0100 ####[facility] [address] [place], [address] GAP 3 Low 5-15 [facility] Comment on above: Performed By: #### L 500.4050, L506.1000, L501.9520, L100.0100 ####[facility] [address] [place], [address] GFR/1.73 sq M.predicted among non-blacks MDRD (S/P/Bld) [Vol rate/Area] 59 mL/min/{1.73_m2} Low >60 [facility] Comment on above: Result Comment: Non- GFR Calc Performed By: #### L 500.4050, L506.1000, L501.9520, L100.0100 ####[facility] [address] [place], [address] Globulin (S) [Mass/Vol] 4.5 g/dL High 2.2-4.2 [facility] Comment on above: Performed By: #### L 500.4050, L506.1000, L501.9520, L100.0100 ####[facility] [address] [place], [address] Glucose [Mass/Vol] 85 mg/dL Normal 74-[address] [facility] Comment on above: Performed By: #### L 500.4050, L506.1000, L501.9520, L100.0100 ####[facility] [address] [place], [address] Potassium [Moles/Vol] 4.0 mmol/L Normal 3.5-5.1 [facility] Comment on above: Performed By: #### L 500.4050, L506.1000, L501.9520, L100.0100 ####[facility] [address] [place], [address] Sodium [Moles/Vol] 140 mmol/L Normal 136-[address] [facility] Comment on above: Performed By: #### L 500.4050, L506.1000, L501.9520, L100.0100 ####[facility] [address] [place], [address] T PROT 7.7 g/dL Normal 6.4-8.2 [facility] Comment on above: Performed By: #### L 500.4050, L506.1000, L501.9520, L100.0100 ####[facility] [address] [place], [address] Urea nitrogen [Mass/Vol] 23 mg/dL High 7-18 [facility] Comment on above: Performed By: #### L 500.4050, L506.1000, L501.9520, L100.0100 ####[facility] [address] [place], [address] Determination of erythrocyte mean corpuscular volume (MCV)on 06-09-2021 MCV (RBC) [Entitic vol] 84.9 fL 81-99 [facility] Work Phone: Hematocrit Auto (Bld) [Volum e fraction]on 06-09-2021 Hematocrit (Bld) [Volume fraction] 39.9 % 37-47 [facility] Work Phone: Laboratory - Chemistry and C hemistry - challengeon 06-09-2021 ALP [Catalytic activity/Vol] 128 U/L 45-117 [facility] Work Phone: ALT [Catalytic activity/Vol] 29 U/L 13-56 [facility] Work Phone: CO2 [Moles/Vol] 30.0 mmol/L 21.0-32.0 [facility] Work Phone: Globulin (S) [Mass/Vol] 4.5 g/dL 2.2-4.2 [facility] Work Phone: Urea nitrogen/Creatinine [Mass ratio] 23.6 mg/mg 10-20 [facility] Work Phone: Laboratory - Hematology and Cell countson 06-09-2021 Erythrocyte distribution width (RBC) [Entitic vol] 47.0 fL 35.1-43.9 [facility] Work Phone: Erythrocyte distribution width (RBC) [Ratio] 15.2 % 11.6-14.6 [facility] Work Phone: Immature granulocytes/100 WBC (Bld) 0.800 % 0.0-0.9 [facility] Work Phone: Comment on above: IG% - Immature Granu locytes (promyelocytes, myelocytes and metamyelocytes) > 1% indicates that a LEFT SHIFT is Present. MCH (RBC) [Entitic mass] 27.9 pg 27.0-32.0 [facility] Work Phone: Nucleated RBC/100 WBC (Bld) [Ratio] 0 % 0-5 [facility] Work Phone: MCHC Auto (RBC) [Mass/Vol]on 06-09-2021 MCHC (RBC) [Mass/Vol] 32.8 g/dL 32-36 [facility] Work Phone: No Panel Informationon 06-09 Estimated GFR (MDRD) Amer 72 mL/min >60 [facility] Work Phone: Comment on above: GFR Calc Estimated GFR (MDRD) Non-Af Amer 59 mL/min >60 [facility] Work Phone: Comment on above: Non- GFR Calc Thyroid Stimulating Hormone (TSH) 1.10 uIU/mL 0.358-3.74 [facility] Work Phone: Vitamin D 25-Hydroxy 37.6 ng/mL [facility] Work Phone: Comment on above: Vitamin D 25(OH) Sta tus Range Deficiency <20 ng/mL (50nmol/L) Insufficiency 20 - 30 ng/mL (50 - 75 nmol/L) Sufficiency 30 - 100 ng/mL (75 - 250 nmol/L) Toxicity >100 ng/mL (>250 nmol/L) Platelets bldon 06-09-2021 Platelets (Bld) [#/Vol] 358 10*3/uL 150-450 [facility] Work Phone: Serum or plasma albumin lauren urement (mass/volume)on 06-09-2021 Albumin [Mass/Vol] 3.2 g/dL 3.2-5.[address] [facility] Work Phone: Serum or plasma albumin/glob ulin mass ratioon 06-09-2021 Albumin/Globulin [Mass ratio] 0.7 {ratio} 0.9-2.4 [facility] Work Phone: Serum or plasma calcium lauren urement (mass/volume)on 06-09-2021 Calcium [Mass/Vol] 9.1 mg/dL 8.5-10.[address] [facility] Work Phone: Serum or plasma creatinine m easurement (mass/volume)on 06-09-2021 Creatinine [Mass/Vol] 0.98 mg/dL 0.55-1.02 [facility] Work Phone: Comment on above: The validity of the calculated GFR & GFRAA in patients over 70 years has not been determined. Clinical correlation is essential. Serum or plasma urea nitroge n measurement (mass/volume)on 06-09-2021 Urea nitrogen [Mass/Vol] 23 mg/dL 7-18 [facility] Work Phone: Thin prep Papanicolaou smear with manual screeningon 06-09-2021 Thin prep Papanicolaou smear with manual screening 28 U/L 15-37 [facility] Work Phone: Thin prep Papanicolaou smear with manual screening 3 5-15 [facility] Work Phone: Thyroid Stim Hormone (TSH)on 06-09-2021 TSH 1.10 uIU/mL Normal 0.358-3.74 [facility] Comment on above: Performed By: #### L 500.4050, L506.1000, L523.9520, L100.0100 ####[facility] [address] [place], [place], [id number] Vitamin D,25 Hydroxyon 06-09 Vitamin D 25-OH 37.6 ng/mL Normal [facility] Comment on above: Result Comment: Faina min D 25(OH) Status Range Deficiency <20 ng/mL (50nmol/L) Insufficiency 20 - 30 ng/mL (50 - 75 nmol/L) Sufficiency 30 - 100 ng/mL (75 - 250 nmol/L) Toxicity >100 ng/mL (>250 nmol/L) Performed By: #### L 500.4050, L506.1000, L501.9520, L100.0100 ####[facility] [address] [place], [place], [id number] Carotid Duplex Ultrasoundon 05-19-2021 Carotid Duplex Ultrasound Normal [facility] Cardiology Visit Reporton Cardiology Visit Report Normal [facility] Urine Cultureon 05-09-2021 URC Normal [facility] Comment on above: Performed By: #### M 100.2200 ####[facility] [address] [place], [address] Culture, urineon 05-06-2021 Bacteria identified Cx Nom (U) Klebsiella pneumoniae sp pneum [facility] Work Phone: .GFRon 11-17-2020 GFR 71 ml/min/1.73sqm Normal [facility] ([place]) Comment on above: Result Comment: GFR Population [...] PRO, APTT, ABOG, ANSG, DIFF, MORPH #### [place] [id number] [place], [place] [address] #### GFR #### [facility] [address] [place] [id number] GFR Non- 58 ml/min/1.73sqm Normal [facility] ([place]) Comment on above: Result Comment: GFR Population [...] PRO, APTT, ABOG, ANSG, DIFF, MORPH #### [place] [address] #### GFR #### [place] [address] .Manual Diffon 11-17-2020 Atypical Lymphs 12.0 % High 0.0-5.0 [facility] ([place]) Comment on above: Performed By: #### T ROPHS, BMP, MG, CBC, PRO, APTT, ABOG, ANSG, DIFF, MORPH #### [place] [address] #### GFR #### [place] [address] Bands 2.0 % Normal 0.0-5.0 [facility] ([place]) Comment on above: Performed By: #### T ROPHS, BMP, MG, CBC, PRO, APTT, ABOG, ANSG, DIFF, MORPH #### [place] [address] #### GFR #### [place] [address] Basophil %, Manual 0.0 % Normal 0.0-2.5 [facility] ([place]) Comment on above: Performed By: #### T ROPHS, BMP, MG, CBC, PRO, APTT, ABOG, ANSG, DIFF, MORPH #### [place] [address] #### GFR #### [place] [address] Basophil, Abs Manual 0.00 10 3/mcL Normal 0.00-0.19 [facility] ([place]) Comment on above: Performed By: #### T ROPHS, BMP, MG, CBC, PRO, APTT, ABOG, ANSG, DIFF, MORPH #### [address] [address] #### GFR #### [address] [address] Eosinophil %, Manual 1.0 % Normal 0.0-7.0 [facility] ([place]) Comment on above: Performed By: #### T ROPHS, BMP, MG, CBC, PRO, APTT, ABOG, ANSG, DIFF, MORPH #### [place] [address] #### GFR #### [address] [address] Eosinophil, Abs Manual 0.11 10 3/mcL Normal 0.00-0.40 [facility] ([place]) Comment on above: Performed By: #### T ROPHS, BMP, MG, CBC, PRO, APTT, ABOG, ANSG, DIFF, MORPH #### [place] [address] #### GFR #### [address] [address] Lymphocyte %, Manual 58.0 % High 10.0-50.0 [facility] ([place]) Comment on above: Performed By: #### T ROPHS, BMP, MG, CBC, PRO, APTT, ABOG, ANSG, DIFF, MORPH #### [place] [address] #### GFR #### [address] [address] Lymphocyte, Abs Manual 7.84 10 3/mcL High 0.77-3.85 [facility] ([place]) Comment on above: Performed By: #### T ROPHS, BMP, MG, CBC, PRO, APTT, ABOG, ANSG, DIFF, MORPH #### [place] [address] #### GFR #### [place] [address] Monocyte %, Manual 3.0 % Normal 1.7-13.0 [facility] ([place]) Comment on above: Performed By: #### T ROPHS, BMP, MG, CBC, PRO, APTT, ABOG, ANSG, DIFF, MORPH #### [place] [address] #### GFR #### [place] [address] Monocyte, Abs Manual 0.34 10 3/mcL Normal 0.15-1.00 [facility] ([place]) Comment on above: Performed By: #### T ROPHS, BMP, MG, CBC, PRO, APTT, ABOG, ANSG, DIFF, MORPH #### [place] [address] #### GFR #### [place] [address] Neutrophil %, Manual 24.0 % Low 37.0-80.0 [facility] ([place]) Comment on above: Performed By: #### T ROPHS, BMP, MG, CBC, PRO, APTT, ABOG, ANSG, DIFF, MORPH #### [place] [address] #### GFR #### [place] [address] Neutrophil, Abs Manual 2.69 10 3/mcL Low 2.85-6.16 [facility] ([place]) Comment on above: Performed By: #### T ROPHS, BMP, MG, CBC, PRO, APTT, ABOG, ANSG, DIFF, MORPH #### [place] [address] #### GFR #### [place] [address] .Morphon 11-17-2020 Platelet Estimate Normal Normal [facility] ([place]) Comment on above: Performed By: #### T ROPHS, BMP, MG, CBC, PRO, APTT, ABOG, ANSG, DIFF, MORPH #### [place] [address] #### GFR #### [place] [address] RBC morphology finding Nom (Bld) Normal Normal [facility] ([place]) Comment on above: Performed By: #### T ROPHS, BMP, MG, CBC, PRO, APTT, ABOG, ANSG, DIFF, MORPH #### [place] [address] #### GFR #### [place] [address] APTTon 11-17-2020 aPTT Coag (Bld) [Time] 36.4 s Normal 23.7-37.6 [facility] ([place]) Comment on above: Result Comment: For Heparin anticoagulation therapy, the recommended therapeutic range is: 53.6-87.4 seconds (1.5 - 2.5 the normal plasma mean). Patients on heparin therapy may have an extreme result. Performed By: #### T ROPHS, BMP, MG, CBC, PRO, APTT, ABOG, ANSG, DIFF, MORPH #### [place] [address] #### GFR #### [place] [address] Heparin dose (APTT) None Normal [facility] ([place]) Comment on above: Performed By: #### T ROPHS, BMP, MG, CBC, PRO, APTT, ABOG, ANSG, DIFF, MORPH #### [place] [address] #### GFR #### [place] [address] BMPon 11-17-2020 BUN/Creatinine Ratio 22 ratio Normal 7- [facility] ([place]) Comment on above: Performed By: #### T ROPHS, BMP, MG, CBC, PRO, APTT, ABOG, ANSG, DIFF, MORPH #### [place] [address] #### GFR #### [place] [address] Calcium [Mass/Vol] 8.7 mg/dL Normal 8.4-10.2 [facility] ([place]) Comment on above: Performed By: #### T ROPHS, BMP, MG, CBC, PRO, APTT, ABOG, ANSG, DIFF, MORPH #### [address] [address] #### GFR #### [address] [address] Chloride [Moles/Vol] 107 mmol/L Normal 98-107 [facility] ([place]) Comment on above: Performed By: #### T ROPHS, BMP, MG, CBC, PRO, APTT, ABOG, ANSG, DIFF, MORPH #### [address] [address] #### GFR #### [address] [address] CO2 [Moles/Vol] 23 mmol/L Normal 23-31 [facility] ([place]) Comment on above: Performed By: #### T ROPHS, BMP, MG, CBC, PRO, APTT, ABOG, ANSG, DIFF, MORPH #### [address] [address] #### GFR #### [address] [address] Creatinine [Mass/Vol] 0.94 mg/dL Normal 0.55-1.02 [facility] ([place]) Comment on above: Performed By: #### T ROPHS, BMP, MG, CBC, PRO, APTT, ABOG, ANSG, DIFF, MORPH #### [address] [address] #### GFR #### [address] [address] Electrolyte Balance 17.0 mEq/L Normal [facility] ([place]) Comment on above: Performed By: #### T ROPHS, BMP, MG, CBC, PRO, APTT, ABOG, ANSG, DIFF, MORPH #### [address] [address] #### GFR #### [address] [address] Glucose [Mass/Vol] 216 mg/dL High 83-110 [facility] ([place]) Comment on above: Performed By: #### T ROPHS, BMP, MG, CBC, PRO, APTT, ABOG, ANSG, DIFF, MORPH #### [address] [address] #### GFR #### [address] [address] Potassium [Moles/Vol] 3.3 mmol/L Low 3.5-5.1 [facility] ([place]) Comment on above: Performed By: #### T ROPHS, BMP, MG, CBC, PRO, APTT, ABOG, ANSG, DIFF, MORPH #### [address] [address] #### GFR #### [place] [address] Sodium [Moles/Vol] 147 mmol/L High 136-145 [facility] ([place]) Comment on above: Performed By: #### T ROPHS, BMP, MG, CBC, PRO, APTT, ABOG, ANSG, DIFF, MORPH #### [address] [address] #### GFR #### [address] [address] Urea nitrogen [Mass/Vol] 21 mg/dL High 7-18 [facility] ([place]) Comment on above: Performed By: #### T ROPHS, BMP, MG, CBC, PRO, APTT, ABOG, ANSG, DIFF, MORPH #### [address] [address] #### GFR #### [place] [id number] CBCon 11-17-2020 Erythrocyte distribution width (RBC) [Ratio] 14.7 % High 11.5-14.5 [facility] ([place]) Comment on above: Performed By: #### T ROPHS, BMP, MG, CBC, PRO, APTT, ABOG, ANSG, DIFF, MORPH #### [place] [address] #### GFR #### [place] [address] Hematocrit (Bld) [Volume fraction] 41.8 % Normal 37.0-47.0 [facility] ([place]) Comment on above: Performed By: #### T ROPHS, BMP, MG, CBC, PRO, APTT, ABOG, ANSG, DIFF, MORPH #### [place] [address] #### GFR #### [place] [address] Hgb 13.4 G/dL Normal 12.0-16.0 [facility] ([place]) Comment on above: Performed By: #### T ROPHS, BMP, MG, CBC, PRO, APTT, ABOG, ANSG, DIFF, MORPH #### [place] [address] #### GFR #### [place] [address] MCH (RBC) [Entitic mass] 27.2 pg Normal 27.0-31.2 [facility] ([place]) Comment on above: Performed By: #### T ROPHS, BMP, MG, CBC, PRO, APTT, ABOG, ANSG, DIFF, MORPH #### [place] [address] #### GFR #### [place] [address] MCHC 32.0 G/dL Low 33.0-37.0 [facility] ([place]) Comment on above: Performed By: #### T ROPHS, BMP, MG, CBC, PRO, APTT, ABOG, ANSG, DIFF, MORPH #### [place] [address] #### GFR #### [place] [address] MCV (RBC) [Entitic vol] 85.0 fL Normal 80.0-94.0 [facility] ([place]) Comment on above: Performed By: #### T ROPHS, BMP, MG, CBC, PRO, APTT, ABOG, ANSG, DIFF, MORPH #### [address] [address] #### GFR #### [place] [address] Platelet 303 10 3/mcL Normal 130-400 [facility] ([place]) Comment on above: Performed By: #### T ROPHS, BMP, MG, CBC, PRO, APTT, ABOG, ANSG, DIFF, MORPH #### [place] [address] #### GFR #### [place] [address] Platelet mean volume (Bld) [Entitic vol] 8.3 fL Normal 7.4-10.4 [facility] ([place]) Comment on above: Performed By: #### T ROPHS, BMP, MG, CBC, PRO, APTT, ABOG, ANSG, DIFF, MORPH #### [place] [address] #### GFR #### [place] [address] RBC 4.92 10 6/mcL Normal 4.20-5.40 [facility] ([place]) Comment on above: Performed By: #### T ROPHS, BMP, MG, CBC, PRO, APTT, ABOG, ANSG, DIFF, MORPH #### [place] [address] #### GFR #### [place] [address] WBC 11.20 10 3/mcL High 4.60-10.80 [facility] ([place]) Comment on above: Performed By: #### T ROPHS, BMP, MG, CBC, PRO, APTT, ABOG, ANSG, DIFF, MORPH #### [place] [address] #### GFR #### [place] [address] Gel ABOon 11-17-2020 ABO/Rh Interp Negative Invalid Interpretation Code [facility] ([place]) Comment on above: Performed By: #### T ROPHS, BMP, MG, CBC, PRO, APTT, ABOG, ANSG, DIFF, MORPH #### [address] [address] #### GFR #### [address] [address] Gel ABSon 11-17-2020 Antibody Screen Gel Negative Normal [facility] ([place]) Comment on above: Performed By: #### T ROPHS, BMP, MG, CBC, PRO, APTT, ABOG, ANSG, DIFF, MORPH #### [address] [address] #### GFR #### [address] [address] MGon 11-17-2020 Magnesium [Mass/Vol] 2.6 mg/dL High 1.8-2.4 [facility] ([place]) Comment on above: Performed By: #### T ROPHS, BMP, MG, CBC, PRO, APTT, ABOG, ANSG, DIFF, MORPH #### [address] [address] #### GFR #### [address] [address] PROon 11-17-2020 INR Coag (PPP) [Relative time] 1.0 {INR} Normal 0.9-1.2 [facility] ([place]) Comment on above: Result Comment: Eligio dard [...] PRO, APTT, ABOG, ANSG, DIFF, MORPH #### [place] [address] #### GFR #### [place] [address] PT Coag (PPP) [Time] 12.5 s Normal 9.7-14.7 [facility] ([place]) Comment on above: Performed By: #### T ROPHS, BMP, MG, CBC, PRO, APTT, ABOG, ANSG, DIFF, MORPH #### [place] [address] #### GFR #### [place] [id number] TROPHSon 11-17-2020 Troponin I High Sensitivity 219.0 ng/L High 0.0-51.4 [facility] ([place]) Comment on above: Performed By: #### T ROPHS, BMP, MG, CBC, PRO, APTT, ABOG, ANSG, DIFF, MORPH #### [place] [address] #### GFR #### [place] [address] Troponin I High Sensitivity 31.5 ng/L Normal 0.0-51.4 [facility] ([place]) Comment on above: Performed By: #### T ROPHS, BMP, MG, CBC, PRO, APTT, ABOG, ANSG, DIFF, MORPH #### [place] [address] #### GFR #### [place] [address] XR CHEST 1 VIEWon 11-17-2020 XR CHEST [...] 11/16/2020 10:55:16 PM Ordering Provider: IMANI Horvath [facility] ([place]) Milagros 11-16-2020 Base excess Calc (Bld) [Moles/Vol] -12.52593 mmol/L Low -2.4-2.3 [facility]) Comment on above: Performed By: #### A BG #### [address] [address] CO2 [Moles/Vol] 17 mmol/L Low 19-24 [facility] ([place]) Comment on above: Performed By: #### A BG #### [address] [address] HCO3 (Bld) [Moles/Vol] 15.7 mmol/L Low 22.0-26.0 [facility] ([place]) Comment on above: Performed By: #### A BG #### [address] [address] Oxygen (Bld) [Partial pressure] 114.0 mm[Hg] High 80.0-100.0 [facility] ([place]) Comment on above: Performed By: #### A BG #### [address] [address] Oxygen saturation in Blood 98 % Normal 95-98 [facility] ([place]) Comment on above: Performed By: #### A BG #### [address] [address] pCO2 37.3 mmHg Normal 35.0-45.0 [facility] ([place]) Comment on above: Performed By: #### A BG #### [address] [address] pH (Bld) 7.23 [pH] Low 7.35-7.45 [facility] ([place]) Comment on above: Performed By: #### A BG #### [address] [address] CNOVon 03-05-2018 CNOV Office Visit (GSTNOR) GLORY SANTOS ([id number]) 1945 FDate Time Provider Hmfdlcdwus72/13/18 2:45 PM ZAIRA GREGG During your visit today, we recorded the following information about you: Pulse Blood pressure Weight Height 72/minute 140/70 84.4 kg 1.524 Paulina Gregg MD 03/05/2018 4:21 PM MomoAshok Santos is a 72 year old female here [...] hands- DVT (deep venous thrombosis) ([facility]) 2003- Esophageal reflux- Esophageal stenosis- Unspecified essential [...] age 72- Diabetes Father Parkinsons, HTN, CAD, [place]- Hypertension Father- Stroke Father- None Brother MVA age 13- Diabetes Brother- Asthma Brother- None Brother- None Sister- Hypertension Brother- Hypertension Brother- Psychiatry BrotherREVIEW OF SYSTEMSReview of [facility] Psychiatric CenterHENT: Positive for trouble swallowing.Cardiovascular: Positive for [...] 03/05/18.Return in about 1 year (around 03/05/2019).Contin. NexiumGhulaLANA BarnardATE: 03/05/18TIME: 3:20 PMReferring Provider: ZAIRA GREGG [[id number]]Allergies As of Date: 03/05/2018 Noted Allergy ReactionACETAMINOPHEN [...] [R19.7] INVALID FOR*Medications Discontinued During This Encounter GAVILYTE-G 236-22.74-6.74 -5.86 gram* 0 10/07/2017 03/05/2018 Class: Historical Med Sig: as directed. Disc: Course of therapy completedDisposition: Return in about 1 year (around 03/05/2019).Follow-up and Disposition History RecordedEncounter Number: [id number] Status:Closed by ZAIRA GREGG MD on 03/05/18 Normal [facility] PROGRESSon 03-05-2018 Protein mass conc HNO ID: [id number] thor: Zaira Gilmoreervice: (none)Author Type: PhysicianType: Progress NotesFiled: 03/05/2018 4:21 PMNote Text:Sarah Santos is a 72 year old female here [...] (deep venous thrombosis) (H[facility]) 2003- Esophageal reflux- Esophageal stenosis- Unspecified essential [...] age 72- Diabetes Father Parkinsons, HTN, CAD, [place]- Hypertension Father- Stroke Father- None Brother MVA age 13- Diabetes Brother- Asthma Brother- None Brother- None Sister- Hypertension Brother- Hypertension Brother- Psychiatry BrotherREVIEW OF SYSTEMSReview of [facility] Psychiatric CenterHENT: Positive for trouble swallowing.Cardiovascular: Positive for [...] 03/05/18.Return in about 1 year (around 03/05/2019).Contin. Dulce Gregg MDDATE: 03/05/18TIME: 3:20 PM Normal [facility] HISTORY PHYSICALon 8 HISTORY PHYSICAL HNO ID: [id number] thor: Zaira Grant MirService: (none)Author Type: PhysicianType: HANDPFiled: 11/29/2017 11:28 AMNote Text:HISTORY AND PHYSICAL Glory Santos, 72 year old femaleCurrent history and physical [...] masses or organomegaly.Sedation Plan: MACAdditional Comments: Juan Gregg MD Normal [facility] SURGICAL PATHOLOGYon 018 SURGICAL PATHOLOGY [facility]: [id number] Physician: ZAIRA GREGG F INAL DIAGNOSISAnorectal junction, biopsy (A) - Fragments of squamous and colonic mucosawith hyperplastic changes.- Separate fragment of mucopurulent debris.- Negative for dysplasia and malignancy. J/AP/peter 11/30/2017 Romero Ybarra M.D.(Electronic Signature) S PECIMEN SUBMITTEDA: ANAL-RECTUM JUNCTION, BIOPSY CLINICAL DATApain/wt lossGROSS DESCRIPTIONA. Received in formalin are two pieces of lozano, soft tissue aggregating to0.5 x 0.2 x 0.2 cm. Totally submitted in one cassette.Gross examination performed at [facility], [address] [place] [id number] 11/30/2017 12:45:48 AMPatient ID #: [id number] of Report: 11/30/2017Date of Procedure: 11/29/2017Date of Receipt: 11/29/2017Submitted by: ZAIRA Quintanacation: [facility] SYSTEMiagnostic interpretation performed at [place] [address]. Normal [facility] CNCOon 10-23-2017 CNCO Letter TextColonosco py (MIRALAX - SPLIT DOSE) InstructionsAppointment Date: 11/29/17 At 11:00 AMFacility: [facility]- [address] [place], [place] [address]Arrive At: 10:15 AMSpecial instructions: yesTo ensure a successful exam, please follow all instructions carefully.You MUST arrange a ride for the day of your exam. If you fail to arrangeacceptable transportation, your procedure will need to be rescheduled. Pleasebring a list of all your current medications, including any iibn-fte-gknasklakubijxnob s with you. If you must cancel or reschedule your appointment,please call our office at [phone] as soon as possible.DIABETIC PATIENTS Use G2 [...] use it. Do not use suppositories. Normal [facility] CNCOon 08-28-2017 CNCO Letter TextCOLONOSCOPY-GOLYTELYNO SOLID FOOD THE DAY BEFORE THIS EXAMAppointment Date: 10/18/17 at 9:00 AMFacility: [facility]- [address] [place] [id number] At: 8:15 AMSpecial Instructions: yesYou must have a responsible adult to drive you home and assist you at homewhile you finish recovering from your sedation.Please bring only one person with you.Bring a list of your medications, insurance card and route driver's license.Arrive 30-45 minutes before your procedure [...] cancelled.Any questions, please call our office at [phone] Ext [phone]. Normal [facility] CNOVon 08-28-2017 CNOV Office Visit (GSTNOR) TOMGLORY Faye ([id number]) 1945 FDate Time Provider Department08/28/17 2:30 PM ZAIRA GREGG GSTNOR During your visit today, we recorded the following information about you: Pulse Blood pressure Weight Height 80/minute 126/80 85.7 kg 1.524 Zaira Collins 08/28/2017 4:05 PM SignedRecheck (EGD)DUSTINGlory Santos is a 72 year old female here [...] relief.Radioisotope gastric emptying study 2 wks at [facility]. Was neg. Dr. Mendenhallested colonoscopy.Last colonoscopy done [...] hands- DVT (deep venous thrombosis) ([facility]) 2003- Esophageal reflux- Unspecified essential hypertensionPAST SURGICAL [...] age 72- Diabetes Father Parkinsons, HTN, CAD, [place]- Hypertension Father- Stroke Father- None Brother MVA [...] on 08/28/17-COLONOSCOPY - DIAGNOSTICNo Follow-up on file.Zaira Gregg: 08/28/17TIME: 4:04 PMI have confirmed and edited as necessary, the PFSH, HPI and ROS obtained byothers. Amy Pizano Provider: ZAIRA GREGG [[id number]]Allergies As of Date: 08/28/2017 Noted Allergy ReactionACETAMINOPHEN 01/12/2015 14 - Other: See CommentsADHESIVE TAPE (ROSINS) 01/18/2006 14 - Other: See Comments Comments: Heath skinBEE POLLEN 02/03/2005 14 - Other: See Comments Comments: Swelling and throat closesLATEX 11/03/2008 2 - RashMORPHINE 04/01/2013 1 - Mental Status ChangePENICILLINS 02/03/2005 2 - RashVICODIN (HYDROCODONE-ACETAMINOPHE* 02/03/2005 8 - GI UpsetDate Reviewed: 08/28/2017Reviewed by: Zaira Gregg - Fully AssessedReason for Visit: Recheck [92] Cmt: EGDReason For Visit History RecordedPrimary Visit Diagnosis:Generalized abdominal pain [R10.84] Other Visit Diagnosis:Abnormal weight loss [R63.4]Order(s):COLONOSCOP Y - DIAGNOSTIC [[id number]] Order #: [id number] FUTURE peg 3350-Electrolytes (GOLYTELY) 236-22.74-6.74 -5.86 gram suspensionTake as directedDisp: 1 BottleRfl: 0 SHALINI PT ED DIGESTIVE DISEASES [9270042] Order #: [id number]. #:[id number] [id number]: 1Prescriptions as of 08/28/2017 Sig: SPIRONOLACTONE [...] on file.Follow-up and Disposition History RecordedEncounter Number: [id number] Status:Closed by ZAIRA GREGG MD on 08/28/17 Normal [facility] PROGRESSon 08-28-2017 Protein mass conc HNO ID: [id number] thor: Cristino, Zairahanane Benson: (none)Author Type: PhysicianType: Progress NotesFiled: 08/28/2017 4:05 PMNote Text:Recheck (EGD)Sarah Santos is a 72 year old female here [...] withoutrelief.Radioisotope gastric emptying study 2 wks at [facility]. Was neg. suggested colonoscopy.Last colonoscopy done by [...] age 72- Diabetes Father Parkinsons, HTN, CAD, [place]- Hypertension Father- Stroke Father- None Brother MVA [...] on 08/28/17-COLONOSCOPY - DIAGNOSTICNo Follow-up on file.Zaira GreggiDATE: 08/28/17TIME: 4:04 PMI have confirmed and edited as necessary, the PFSH, HPI and ROS obtainedby others. Amy Velasquez Ma [facility] HISTORY PHYSICALon HISTORY PHYSICAL HNO ID: [id number] thor: Zaira Grant MirService: (none)Author Type: PhysicianType: HANDPFiled: 07/24/2017 11:33 AMNote Text:HISTORY AND PHYSICAL Glory Santos, 72 year old femaleCurrent history and physical [...] masses or organomegaly.Sedation Plan: MACAdditional Comments: Juan Gregg MD [facility] CNCOon 07-19-2017 CNCO Letter TextUPPER END OSCOPY (EGD)You are scheduled at:[facility] [place] [address] [place], [place] [address]Yxl are scheduled for an EGD on . 07/24/17 at 11:30 am.YOU MUST have a responsible adult to drive you home and to assist you at homewhile you finish recovering from your sedation. Please limit the number ofpeople that come with you to 1-2 people due to the limited waiting area.Bring your Loan Specialist's license, insurance card(s) and a list of [...] procedure.Any questions, please call our office at [phone].There will be a $50.00 charge for any no show appointments or same daycancels. Normal [facility] CNOVon 07-19-2017 CNOV Office Visit (GSTNOR) GLORY SANTOS ([id number]) [address] [facility] Provider Department07/19/17 2:00 PM ZAIRA GREGG GSTGILDARDOR During your visit today, we recorded the following information about you: Pulse Blood pressure Weight Height 74/minute 158/96 90.9 kg 1.524 Paulina Gregg MD 07/19/2017 2:22 PM SignedThroat Problem; Nausea; and decrease in appetiteHPAshok Littleley is a 72 year old female here [...] motility disorder. No dilation was performed by Dr.Rodriguez condon.Current Outpatient Prescriptions:meloxicam (MOBIC) 15 mg tablet [...] hands- DVT (deep venous thrombosis) ([facility]) 2003- Esophageal reflux- Unspecified essential hypertensionPAST SURGICAL HISTORYProcedure Laterality Date- APPENDECTOMY- COLONOSCOP W/ OR W/O [facility] SPEC Colonoscopy- COLONOSCOP W/ OR W/O [facility] [...] age 72- Diabetes Father Parkinsons, HTN, CAD, [place]- Hypertension Father- Stroke Father- None Brother MVA age 13- Diabetes Brother- Asthma Brother- None Brother- None Sister- Hypertension Brother- Hypertension Brother- Psychiatry BrotherREVIEW OF SYSTEMSReview of [facility] other systems reviewed and are negative.PHYSICAL EXAMBP 158/96 Pulse 74 Ht 5' 0ANDquot; (1.52m) Wt 200 lb 8 oz (90.9kg) EwF857% BMI 39.16 kg/(m2).Physical ExamConstitutional: She is oriented [...] GEN ANESReturn in about 6 months (around 01/19/2018).LANA BuckATE: 07/19/17TIME: 2:22 PMReferring Provider: SELF [[id number]]Allergies As [...] - GI UpsetDate Reviewed: 07/19/2017Reviewed by: Zaira Grant Cristino - Fully AssessedReason for Visit: Throat Problem [109] Nausea [70] decrease in appetite [Other]Primary Visit Diagnosis:Dysphagia, unspecified type [R13.10]Order(s):EGD DILATION GEN ANES [[id number]] Order #: [id number] FUTUREPrescriptions as of 07/19/2017 Sig: MELOXICAM 15 [...] 07/19/2017 1:34 PM >> MARYANNE GROVE LPN [facility] Jul 19, 2017 1:34 PM Not taking CIPROFLOXACIN 500 MG TABLET >> Maryanne Grove LPN 07/19/2017 1:34 PM >> MARYANNE GROVE LPN [facility] Jul 19, 2017 1:34 PM Not taking CLINDAMYCIN HCL 150 MG CAPSULE >> Maryanne Grove LPN 07/19/2017 1:34 PM >> MARYANNE GROVE LPN [facility] Jul 19, 2017 1:34 PM Not taking CODEINE 10 MG-GUAIFENESIN 100 MG/5 ML ORAL LIQUID >> Maryanne Grove LPN 07/19/2017 1:34 PM >> MARYANNE GROVE LPN [facility] Jul 19, 2017 1:34 PM Not taking IBUPROFEN 600 MG TABLET >> Maryanne Grove LPN 07/19/2017 1:35 PM >> MARYANNE GROVE LPN [facility] Jul 19, 2017 1:35 PM Not taking MAGNESIUM OXIDE 400 MG TABLET >> Maryanne Grove COMPUTING TUTOR 07/19/2017 1:35 PM >> MARYANNE GROVE LPN [facility] Jul 19, 2017 1:35 PM Not taking PREDNISONE 10 MG TABLET >> Maryanne Grove COMPUTING TUTOR 07/19/2017 1:36 PM >> MARYANNE GROVE LPN [facility] Jul 19, 2017 1:36 PM Not taking PRAVASTATIN 40 MG TABLET >> Maryanne Grove COMPUTING TUTOR 07/19/2017 1:35 PM >> MARYANNE GROVE LPN [facility] Jul 19, 2017 1:35 PM Not taking NORTRIPTYLINE 25 MG CAPSULE >> Maryanne Grove LPN 07/19/2017 1:35 PM >> MARYANNE GROVE LPN [facility] Jul 19, 2017 1:35 PM ,Not taking SPIRONOLACTONE 25 MG TABLET >> Maryanne Grove COMPUTING TUTOR 07/19/2017 1:36 PM >> MARYANNE GROVE LPN [facility] Jul 19, 2017 1:36 PM duplicate >> Maryanne Grove COMPUTING TUTOR 07/19/2017 1:37 PM >> MARYANNE GROVE LPN [facility] Jul 19, 2017 1:37 PM Not taking PRAVASTATIN 40 MG TABLET >> Maryanne Grove COMPUTING TUTOR 07/19/2017 1:36 PM >> MARYANNE GROVE COMPUTING TUTOR [facility] Jul 19, 2017 1:36 PM Not taking PREDNISONE 20 MG TABLET >> Maryanne Grove COMPUTING TUTOR 07/19/2017 1:36 PM >> MARYANNE GROVE LPN [facility] Jul 19, 2017 1:36 PM Not taking SPIRONOLACTONE 25 MG TABLET >> Maryanne Grove COMPUTING TUTOR 07/19/2017 1:37 PM >> MARYANNE GROVE LPN [facility] Jul 19, 2017 1:37 PM Not takingProblem [...] (around 01/19/2018).Follow-up and Disposition History RecordedEncounter Number: [id number] Status:Closed by ZAIRA GREGG MD on 07/19/17 Normal [facility] PROGRESSon 07-19-2017 Protein mass conc HNO ID: [id number] thor: Zaira Grant MirService: (none)Author Type: PhysicianType: Progress NotesFiled: 07/19/2017 2:22 PMNote Text:Throat Problem; Nausea; and decrease in appetiteHPIDiana Faye Santos is a 72 year old female here [...] hands- DVT (deep venous thrombosis) ([facility]) 2003- Esophageal reflux- Unspecified essential hypertensionPAST SURGICAL HISTORYProcedure Laterality Date- APPENDECTOMY- COLONOSCOP W/ OR W/O [facility] SPEC Colonoscopy- COLONOSCOP W/ OR W/O [facility] [...] age 72- Diabetes Father Parkinsons, HTN, CAD, [place]- Hypertension Father- Stroke Father- None Brother MVA age 13- Diabetes Brother- Asthma Brother- None Brother- None Sister- Hypertension Brother- Hypertension Brother- Psychiatry BrotherREVIEW OF SYSTEMSReview of [facility] reviewed and are negative.PHYSICAL EXAMBP 158/96 Pulse 74 Ht 5' 0 (1.52m) Wt 200 lb 8 oz (90.9kg) AhG471% BMI 39.16 kg/(m2).Physical ExamConstitutional: She is oriented [...] ANESReturn in about 6 months (around 01/19/2018).Zaira Gregg, MDDATE: 07/19/17TIME: 2:22 PM Normal [facility] Emergency Room Note on 12-23-2016 [place] Emergency Room Note Normal [facility] ([place]) Patient Summary Documentson 12-22-2016 Patient Summary Documents Normal [facility] ([place]) Culture, urine Bacteria identified Cx Nom (U) Klebsiella pneumoniae sp pneum [facility] Work Phone: Influenza virus A and B and SARS-CoV-2 (COVID-19) Ag panel - Upper respiratory specim SARS-CoV-2 (COVID-19) RNA KENYA+probe Ql (Resp) [facility] Work Phone: No Panel Information Influenza Types A,B Direct FA (SANTOSH) [facility] Work Phone: RSV Ag EIA RSV Ag Immune stain Ql (Tiss) [facility] Work Phone: Vital Signs Date Time Vital Sign Value Performing Clinician Facility 10-20-2024 19:47-0400 Body temperature 98.4 [degF] Dr. Alexi Morin MD Work Phone: [facility] 10-20-2024 19:47-0400 Diastolic blood pressure 66 mm[Hg] Dr. Alexi Morin MD Work Phone: [facility] 10-20-2024 19:47-0400 Heart rate 90 /min Dr. Alexi Morin MD Work Phone: 8(645)109-088502 [place] [address] 10-20-2024 19:47-0400 Respiratory rate 18 /min Dr. Alexi Morin MD Work Phone: [facility] 10-20-2024 19:47-0400 SaO2% (BldA) [Mass fraction] 97 % Dr. Alexi Morin MD Work Phone: 0(746)632-561302 [place] [address] 10-20-2024 19:47-0400 Systolic blood pressure 154 mm[Hg] Dr. Alexi Morin MD Work Phone: 5(880)830-358315 [place] [address] 10-20-2024 14:52-0400 Body height 152.[address] Alexi Morin MD Work Phone: 7(818)728-148615 [place] [address] 10-20-2024 14:52-0400 Body mass index (BMI) [Ratio] 36.1 kg/m2 Dr. Alexi Morin MD Work Phone: 0(163)264-700302 [place] [address] 10-20-2024 14:52-0400 Body weight 83.[address] Alexi Morin MD Work Phone: 2(366)138-352915 [place] [address] 10-20-2024 13:04-0400 Body height 152.[address] Alexi Morin MD Work Phone: 1(078)654-073015 [place] [address] 10-20-2024 13:04-0400 Body mass index (BMI) [Ratio] 36.5 kg/m2 Dr. Alexi Morin MD Work Phone: 2(384)954-355102 [place] [address] 10-20-2024 13:04-0400 Body weight 84.[address] Alexi Morin MD Work Phone: 9(262)116-348202 [place] [address] 10-20-2024 13:04-0400 Diastolic blood pressure 74 mm[Hg] Dr. Alexi Morin MD Work Phone: 5(159)966-501602 [place] [address] 10-20-2024 13:04-0400 Heart rate 81 /min Dr. Alexi Morin MD Work Phone: 3(869)777-552102 [place] [address] 10-20-2024 13:04-0400 Respiratory rate 18 /min Dr. Alexi Morin MD Work Phone: 8(243)019-647202 [place] [address] 10-20-2024 13:04-0400 SaO2% (BldA) [Mass fraction] 95 % Dr. Alexi Morin MD Work Phone: 6(104)991-391502 [place] [address] 10-20-2024 13:04-0400 Systolic blood pressure 121 mm[Hg] Dr. Alexi Morin MD Work Phone: 7(172)520-404415 [place] [address] 09-01-2024 15:30-0400 Diastolic blood pressure 91 mm[Hg] Dr. Alexi Morin MD Work Phone: 7(722)444-488015 [place] [address] 09-01-2024 15:30-0400 Heart rate 70 /min Dr. Alexi Morin MD Work Phone: 7(706)123-396015 [place] [address] 09-01-2024 15:30-0400 Respiratory rate 16 /min Dr. Alexi Morin MD Work Phone: 9(547)967-208215 [place] [address] 09-01-2024 15:30-0400 Systolic blood pressure 157 mm[Hg] Dr. Alexi Morin MD Work Phone: 0(770)647-465915 [place] [address] 08-21-2024 08:14-0400 Body height 152.[address] Alexi Morin MD Work Phone: 1(317)389-604315 [place] [address] 08-21-2024 08:14-0400 Body mass index (BMI) [Ratio] 35.9 kg/m2 Dr. Alexi Morin MD Work Phone: 3(659)525-101315 [place] [address] 08-21-2024 08:14-0400 Body weight 83.[address] Alexi Morin MD Work Phone: 4(168)730-076315 [place] [address] 08-21-2024 08:14-0400 Diastolic blood pressure 80 mm[Hg] Dr. Alexi Morin MD Work Phone: 9(034)879-382615 [place] [address] 08-21-2024 08:14-0400 Heart rate 98 /min Dr. Alexi Morin MD Work Phone: 3(740)186-105115 [place] [address] 08-21-2024 08:14-0400 Respiratory rate 18 /min Dr. Alexi Morin MD Work Phone: 5(963)801-131902 [place] [address] 08-21-2024 08:14-0400 Systolic blood pressure 113 mm[Hg] Dr. Alexi Morin MD Work Phone: 6(759)196-791415 [place] [address] 04-23-2024 12:18-0500 Body temperature 97.9 [degF] Dr. Alexi Morin MD Work Phone: 1(863)979-660215 [place] [address] 04-23-2024 12:18-0500 Diastolic blood pressure 97 mm[Hg] Dr. Alexi Morin MD Work Phone: 7(947)977-371115 [place] [address] 04-23-2024 12:18-0500 Heart rate 102 /min Dr. Alexi Morin MD Work Phone: 7(581)227-634015 [place] [address] 04-23-2024 12:18-0500 Respiratory rate 20 /min Dr. Alexi Morin MD Work Phone: 5(750)418-334615 [place] [address] 04-23-2024 12:18-0500 SaO2% (BldA) [Mass fraction] 98 % Dr. Alexi Morin MD Work Phone: 2(636)361-388715 [place] [address] 04-23-2024 12:18-0500 Systolic blood pressure 139 mm[Hg] Dr. Alexi Morin MD Work Phone: 2(247)933-557415 [place] [address] 04-23-2024 07:28-0500 Body height 152.[address] Alexi Morin MD Work Phone: 6(500)491-448215 [place] [address] 04-23-2024 07:28-0500 Body mass index (BMI) [Ratio] 36.6 kg/m2 Dr. Alexi Morin MD Work Phone: 5(631)265-059815 [place] [address] 04-23-2024 07:28-0500 Body weight [address] Alexi Morin MD Work Phone: 0(465)462-528615 [place] [address] 07-02-2023 08:36-0400 Body height 152.[address] Alexi Morin Work Phone: 9(703)220-149815 [place] [address] 07-02-2023 08:36-0400 Body mass index (BMI) [Ratio] 40.2 kg/m2 Dr. Alexi Morin Work Phone: [facility] 07-02-2023 08:36-0400 Body weight 93.[address] Alexi Morin Work Phone: [facility] 07-02-2023 08:36-0400 Diastolic blood pressure 72 mm[Hg] Dr. Alexi Morin Work Phone: [facility] 07-02-2023 08:36-0400 Heart rate 76 /min Dr. Alexi Morin Work Phone: [facility] 07-02-2023 08:36-0400 Respiratory rate 18 /min Dr. Alexi Morin Work Phone: [facility] 07-02-2023 08:36-0400 SaO2% (BldA) [Mass fraction] 97 % Dr. Alexi Morin Work Phone: [facility] 07-02-2023 08:36-0400 Systolic blood pressure 114 mm[Hg] Dr. Alexi Morin Work Phone: [facility] 06-15-2023 12:37-0500 Body height 152.4 cm Igor Jimenez MD Work Phone: [facility] 06-15-2023 12:37-0500 Body temperature 97.59 [degF] Igor Jimenez MD Work Phone: [facility] 06-15-2023 12:37-0500 Body weight 90.36 kg Igor Jimenez MD Work Phone: [facility] 06-15-2023 12:37-0500 Diastolic blood pressure 82 mm[Hg] Igor Jimenez MD Work Phone: [facility] 06-15-2023 12:37-0500 Heart rate 97 /min gIor Jimenez MD Work Phone: [facility] 06-15-2023 12:37-0500 SaO2% (BldA) [Mass fraction] 98 % Igor Jimenez MD Work Phone: [facility] 06-15-2023 12:37-0500 Systolic blood pressure 130 mm[Hg] Igor Jimenez MD Work Phone: [facility] 05-03-2023 10:27-0500 Body height 152.[address] Alexi Morin Work Phone: [facility] 05-03-2023 10:27-0500 Body mass index (BMI) [Ratio] 38 kg/m2 Dr. Alexi Morin Work Phone: [facility] 05-03-2023 10:27-0500 Body temperature 22 [degF] Dr. Alexi Morin Work Phone: [facility] 05-03-2023 10:27-0500 Body weight 88.[address] Alexi Morin Work Phone: [facility] 05-03-2023 10:27-0500 Diastolic blood pressure 76 mm[Hg] Dr. Alexi Morin Work Phone: [facility] 05-03-2023 10:27-0500 Heart rate 67 /min Dr. Alexi Morin Work Phone: [facility] 05-03-2023 10:27-0500 Respiratory rate 18 /min Dr. Alexi Morin Work Phone: [facility] 05-03-2023 10:27-0500 SaO2% (BldA) [Mass fraction] 97 % Dr. Alexi Morin Work Phone: [facility] 05-03-2023 10:27-0500 Systolic blood pressure 132 mm[Hg] Dr. Alexi Morin Work Phone: [facility] 04-22-2023 19:38-0500 Diastolic blood pressure 74 mm[Hg] Dr. Alexi Morin Work Phone: [facility] 04-22-2023 19:38-0500 Heart rate 85 /min Dr. Alexi Morin Work Phone: [facility] 04-22-2023 19:38-0500 Respiratory rate 18 /min Dr. Alexi Morin Work Phone: 7(072)889-371002 [place] [address] 04-22-2023 19:38-0500 SaO2% (BldA) [Mass fraction] 94 % Dr. Alexi Morin Work Phone: [facility] 04-22-2023 19:38-0500 Systolic blood pressure 142 mm[Hg] Dr. Alexi Morin Work Phone: [facility] 04-22-2023 16:25-0500 Body height 152.[address] Alexi Morin Work Phone: 1(761)853-465602 [place] [address] 04-22-2023 16:25-0500 Body mass index (BMI) [Ratio] 39 kg/m2 Dr. Alexi Morin Work Phone: 6(165)583-631202 [place] [address] 04-22-2023 16:25-0500 Body temperature 97.2 [degF] Dr. Alexi Morin Work Phone: 2(743)949-494202 [place] [address] 04-22-2023 16:25-0500 Body weight 90.[address] Alexi Morin Work Phone: 2(753)344-463702 [place] [address] 04-05-2023 10:25-0500 Body height 152.[address] Alexi Morin Work Phone: 1(462)331-141002 [place] [address] 04-05-2023 10:25-0500 Body mass index (BMI) [Ratio] 39.6 kg/m2 Dr. Alexi Morin Work Phone: 1(960)714-075502 [place] [address] 04-05-2023 10:25-0500 Body weight 92.[address] Alexi Morin Work Phone: [facility] 04-05-2023 10:25-0500 Diastolic blood pressure 68 mm[Hg] Dr. Alexi Morin Work Phone: 2(991)504-391602 [place] [address] 04-05-2023 10:25-0500 Heart rate 71 /min Dr. Alexi Morin Work Phone: [facility] 04-05-2023 10:25-0500 Respiratory rate 20 /min Dr. Alexi Morin Work Phone: [facility] 04-05-2023 10:25-0500 SaO2% (BldA) [Mass fraction] 97 % Dr. Alexi Morin Work Phone: 3(224)423-687402 [place] [address] 04-05-2023 10:25-0500 Systolic blood pressure 107 mm[Hg] Dr. Alexi Morin Work Phone: 9(044)146-870015 [place] [address] 02-06-2023 15:34-0400 Body temperature 98.9 [degF] Dr. Alexi Morin Work Phone: 0(759)772-858715 [place] [address] 02-06-2023 15:34-0400 Diastolic blood pressure 65 mm[Hg] Dr. Alexi Morin Work Phone: 4(954)656-568615 [place] [address] 02-06-2023 15:34-0400 Heart rate 76 /min Dr. Alexi Morin Work Phone: 1(807)206-532015 [place] [address] 02-06-2023 15:34-0400 Respiratory rate 18 /min Dr. Alexi Morin Work Phone: 4(460)896-758615 [place] [address] 02-06-2023 15:34-0400 SaO2% (BldA) [Mass fraction] 96 % Dr. Alexi Morin Work Phone: 5(087)540-486915 [place] [address] 02-06-2023 15:34-0400 Systolic blood pressure 140 mm[Hg] Dr. Alexi Morin Work Phone: 1(434)273-612615 [place] [address] 02-06-2023 14:18-0400 Body height 152.[address] Alexi Morin Work Phone: 4(823)118-623215 [place] [address] 02-06-2023 14:18-0400 Body mass index (BMI) [Ratio] 40.1 kg/m2 Dr. Alexi Morin Work Phone: 3(908)173-595802 [place] [address] 02-06-2023 14:18-0400 Body weight 93.[address] Alexi Morin Work Phone: 9(413)328-860915 [place] [address] 01-04-2023 13:33-0400 Body height 152.[address] Alexi Morin Work Phone: 2(649)028-790902 [place] [address] 01-04-2023 13:33-0400 Body mass index (BMI) [Ratio] 40.2 kg/m2 Dr. Alexi Morin Work Phone: [facility] 01-04-2023 13:33-0400 Body weight 93.[address] Alexi Morin Work Phone: [facility] 01-04-2023 13:33-0400 Diastolic blood pressure 72 mm[Hg] Dr. Alexi Morin Work Phone: 8(922)092-042902 [place] [address] 01-04-2023 13:33-0400 Heart rate 87 /min Dr. Alexi Morin Work Phone: 0(885)696-631902 [place] [address] 01-04-2023 13:33-0400 Respiratory rate 18 /min Dr. Alexi Morin Work Phone: 1(801)143-606515 [place] [address] 01-04-2023 13:33-0400 Systolic blood pressure 107 mm[Hg] Dr. Alexi Morin Work Phone: 0(012)096-144815 [place] [address] 12-29-2022 11:07-0400 Body temperature 97.7 [degF] Dr. Alexi Morin Work Phone: 3(352)627-529202 [place] [address] 12-29-2022 11:07-0400 Diastolic blood pressure 80 mm[Hg] Dr. Alexi Morin Work Phone: 1(404)536-794115 [place] [address] 12-29-2022 11:07-0400 Heart rate 76 /min Dr. Alexi Morin Work Phone: 3(247)529-372402 [place] [address] 12-29-2022 11:07-0400 Respiratory rate 17 /min Dr. Alexi Morin Work Phone: 3(478)689-990902 [place] [address] 12-29-2022 11:07-0400 SaO2% (BldA) [Mass fraction] 98 % Dr. Alexi Morin Work Phone: 7(849)097-248202 [place] [address] 12-29-2022 11:07-0400 Systolic blood pressure 133 mm[Hg] Dr. Alexi Morin Work Phone: 9(415)247-310802 [place] [address] 11-24-2022 07:13-0400 Body height 152.[address] Alexi Morin Work Phone: 5(321)374-312802 [place] [address] 11-24-2022 07:13-0400 Body weight 93.[address] Alexi Morin Work Phone: [facility] 11-23-2022 14:35-0400 Body temperature 98.6 [degF] Dr. Alexi Morin Work Phone: 7(482)771-517802 [place] [address] 11-23-2022 14:35-0400 Diastolic blood pressure 81 mm[Hg] Dr. Alexi Morin Work Phone: 1(279)345-401615 [place] [address] 11-23-2022 14:35-0400 Heart rate 81 /min Dr. Alexi Morin Work Phone: 3(217)662-072602 [place] [address] 11-23-2022 14:35-0400 Respiratory rate 16 /min Dr. Alexi Morin Work Phone: 2(111)944-471215 [place] [address] 11-23-2022 14:35-0400 SaO2% (BldA) [Mass fraction] 94 % Dr. Alexi Morin Work Phone: 7(184)675-000802 [place] [address] 11-23-2022 14:35-0400 Systolic blood pressure 147 mm[Hg] Dr. Alexi Morin Work Phone: 1(887)539-515915 [place] [address] 11-23-2022 13:30-0400 Body height 152.[address] Alexi Morin Work Phone: 7(230)994-193415 [place] [address] 11-23-2022 13:30-0400 Body weight 96.[address] Alexi Morin Work Phone: 7(836)482-861715 [place] [address] 11-23-2022 12:26-0400 Body mass index (BMI) [Ratio] 41.4 kg/m2 Dr. Alexi Morin Work Phone: 2(223)464-009935 [address] 11-23-2022 07:58-0400 Body mass index (BMI) [Ratio] 40.2 kg/m2 Dr. Alexi Morin Work Phone: 9(463)407-574615 [place] [address] 11-22-2022 16:47-0400 Body temperature 97.6 [degF] Dr. Alexi Morin Work Phone: 3(974)100-326815 [place] [address] 11-22-2022 16:47-0400 Diastolic blood pressure 67 mm[Hg] Dr. Alexi Morin Work Phone: [facility] 11-22-2022 16:47-0400 Heart rate 77 /min Dr. Alexi Morin Work Phone: [facility] 11-22-2022 16:47-0400 Respiratory rate 18 /min Dr. Alexi Morin Work Phone: [facility] 11-22-2022 16:47-0400 SaO2% (BldA) [Mass fraction] 96 % Dr. Alexi Morin Work Phone: [facility] 11-22-2022 16:47-0400 Systolic blood pressure 132 mm[Hg] Dr. Alexi Morin Work Phone: [facility] 11-22-2022 12:24-0400 Body mass index (BMI) [Ratio] 41.4 kg/m2 Dr. Alexi Morin Work Phone: 2(330)232-041002 [place] [address] 11-22-2022 12:24-0400 Body weight 96.[address] Alexi Morin Work Phone: 6(021)783-736902 [place] [address] 11-22-2022 12:05-0400 Body height 152.[address] Alexi Morin Work Phone: 3(279)130-361135 [address] 11-15-2022 11:55-0400 Body height 152.[address] Alexi Moirn Work Phone: [facility] 11-15-2022 11:55-0400 Body mass index (BMI) [Ratio] 40.2 kg/m2 Dr. Alexi Morin Work Phone: [facility] 11-15-2022 11:55-0400 Body weight 93.[address] Alexi Morin Work Phone: [facility] 11-15-2022 11:55-0400 Diastolic blood pressure 83 mm[Hg] Dr. Alexi Morin Work Phone: [facility] 11-15-2022 11:55-0400 Heart rate 71 /min Dr. Alexi Morin Work Phone: [facility] 11-15-2022 11:55-0400 Respiratory rate 16 /min Dr. Alexi Morin Work Phone: [facility] 11-15-2022 11:55-0400 Systolic blood pressure 124 mm[Hg] Dr. Alexi Morin Work Phone: [facility] 10-18-2022 12:02-0400 Body height 152.[address] Alexi Morin Work Phone: [facility] 10-18-2022 12:02-0400 Body mass index (BMI) [Ratio] 39 kg/m2 Dr. Alexi Morin Work Phone: [facility] 10-18-2022 12:02-0400 Body weight 90.[address] Alexi Morin Work Phone: [facility] 10-18-2022 12:02-0400 Diastolic blood pressure 67 mm[Hg] Dr. Alexi Morin Work Phone: [facility] 10-18-2022 12:02-0400 Heart rate 60 /min Dr. Alexi Morin Work Phone: [facility] 10-18-2022 12:02-0400 Respiratory rate 18 /min Dr. Alexi Morin Work Phone: [facility] 10-18-2022 12:02-0400 Systolic blood pressure 105 mm[Hg] Dr. Alexi Morin Work Phone: [facility] 10-09-2022 20:16-0400 Diastolic blood pressure 61 mm[Hg] Dr. Alexi Morin Work Phone: [facility] 10-09-2022 20:16-0400 Heart rate 78 /min Dr. Alexi Morin Work Phone: [facility] 10-09-2022 20:16-0400 Respiratory rate 18 /min Dr. Alexi Morin Work Phone: [facility] 10-09-2022 20:16-0400 SaO2% (BldA) [Mass fraction] 94 % Dr. Alexi Morin Work Phone: [facility] 10-09-2022 20:16-0400 Systolic blood pressure 133 mm[Hg] Dr. Alexi Morin Work Phone: [facility] 10-09-2022 15:54-0400 Body height 152.[address] Alexi Morin Work Phone: [facility] 10-09-2022 15:54-0400 Body mass index (BMI) [Ratio] 41.1 kg/m2 Dr. Alexi Morin Work Phone: [facility] 10-09-2022 15:54-0400 Body temperature 98.1 [degF] Dr. Alexi Morin Work Phone: [facility] 10-09-2022 15:54-0400 Body weight 95.[address] Alexi Morin Work Phone: [facility] 07-20-2022 09:33-0400 Body height 152.[address] Alexi Morin Work Phone: [facility] 07-20-2022 09:33-0400 Body mass index (BMI) [Ratio] 39.6 kg/m2 Dr. Alexi Morin Work Phone: [facility] 07-20-2022 09:33-0400 Body temperature 97 [degF] Dr. Alexi Morin Work Phone: [facility] 07-20-2022 09:33-0400 Body weight 92.[address] Alexi Morin Work Phone: [facility] 07-20-2022 09:33-0400 Diastolic blood pressure 75 mm[Hg] Dr. Alexi Morin Work Phone: [facility] 07-20-2022 09:33-0400 Heart rate 70 /min Dr. Alexi Morin Work Phone: [facility] 07-20-2022 09:33-0400 Respiratory rate 18 /min Dr. Alexi Morin Work Phone: [facility] 07-20-2022 09:33-0400 SaO2% (BldA) [Mass fraction] 94 % Dr. Alexi Morin Work Phone: 6(315)887-841902 [place] [address] 07-20-2022 09:33-0400 Systolic blood pressure 133 mm[Hg] Dr. Alexi Morin Work Phone: 5(758)938-178715 [place] [address] 07-06-2022 11:09-0400 Body height 152.[address] Alexi Morin Work Phone: 4(975)690-032615 [place] [address] 07-06-2022 11:09-0400 Body mass index (BMI) [Ratio] 39 kg/m2 Dr. Alexi Morin Work Phone: 8(284)131-206215 [place] [address] 07-06-2022 11:09-0400 Body weight 90.[address] Alexi Morin Work Phone: 6(489)601-841715 [place] [address] 07-06-2022 11:09-0400 Diastolic blood pressure 76 mm[Hg] Dr. Alexi Morin Work Phone: 9(648)029-774415 [place] [address] 07-06-2022 11:09-0400 Heart rate 91 /min Dr. Alexi Morin Work Phone: 2(509)431-144715 [place] [address] 07-06-2022 11:09-0400 Respiratory rate 18 /min Dr. Alexi Morin Work Phone: 1(853)836-690015 [place] [address] 07-06-2022 11:09-0400 Systolic blood pressure 121 mm[Hg] Dr. Alexi Morin Work Phone: 2(054)769-517815 [place] [address] 03-27-2022 15:28-0500 Body height 152.[address] Alexi Morin Work Phone: 4(510)914-449415 [place] [address] 03-27-2022 15:28-0500 Body mass index (BMI) [Ratio] 39.8 kg/m2 Dr. Alexi Morin Work Phone: 3(399)574-488415 [place] [address] 03-27-2022 15:28-0500 Body weight 92.[address] Alexi Morin Work Phone: 8(133)425-184315 [place] [address] 03-27-2022 15:28-0500 Diastolic blood pressure 79 mm[Hg] Dr. Alexi Morin Work Phone: [facility] 03-27-2022 15:28-0500 Heart rate 83 /min Dr. Alexi Morin Work Phone: [facility] 03-27-2022 15:28-0500 Respiratory rate 18 /min Dr. Alexi Morin Work Phone: [facility] 03-27-2022 15:28-0500 SaO2% (BldA) [Mass fraction] 95 % Dr. Alexi Morin Work Phone: [facility] 03-27-2022 15:28-0500 Systolic blood pressure 124 mm[Hg] Dr. Alexi Morin Work Phone: 2(086)453-085702 [place] [address] 03-25-2022 11:47-0500 Heart rate 71 /min Dr. Alexi Morin Work Phone: 9(071)550-830502 [place] [address] 03-25-2022 11:10-0500 Body temperature 97.6 [degF] Dr. Alexi Morin Work Phone: [facility] 03-25-2022 11:10-0500 Diastolic blood pressure 73 mm[Hg] Dr. Alexi Morin Work Phone: [facility] 03-25-2022 11:10-0500 Respiratory rate 16 /min Dr. Alexi Morin Work Phone: [facility] 03-25-2022 11:10-0500 SaO2% (BldA) [Mass fraction] 94 % Dr. Alexi Morin Work Phone: [facility] 03-25-2022 11:10-0500 Systolic blood pressure 138 mm[Hg] Dr. Alexi Morin Work Phone: [facility] 03-25-2022 03:48-0500 Body height 152.[address] Alexi Morin Work Phone: [facility] Work Phone: 03-25-2022 03:48-0500 Body mass index (BMI) [Ratio] 39.6 kg/m2 Dr. Alexi Morin Work Phone: [facility] 03-25-2022 03:48-0500 Body weight 92.[address] Alexi Morni Work Phone: [facility] 03-24-2022 00:51-0500 Body temperature 97.6 [degF] Dr. Alexi Morin Work Phone: [facility] Work Phone: 03-24-2022 00:51-0500 Diastolic blood pressure 76 mm[Hg] Dr. Alexi Morin Work Phone: [facility] Work Phone: 03-24-2022 00:51-0500 Heart rate 78 /min Dr. Alexi Morin Work Phone: [facility] Work Phone: 03-24-2022 00:51-0500 Respiratory rate 18 /min Dr. Alexi Morin Work Phone: [facility] Work Phone: 03-24-2022 00:51-0500 SaO2% (BldA) [Mass fraction] 98 % Dr. Alexi Morin Work Phone: [facility] Work Phone: 03-24-2022 00:51-0500 Systolic blood pressure 145 mm[Hg] Dr. Alexi Morin Work Phone: [facility] Work Phone: 03-23-2022 22:05-0500 Body height 152.[address] Alexi Morin Work Phone: [facility] Work Phone: 03-23-2022 22:05-0500 Body mass index (BMI) [Ratio] 42.5 kg/m2 Dr. Alexi Morin Work Phone: [facility] Work Phone: 03-23-2022 22:05-0500 Body weight 98.[address] Alexi Morin Work Phone: [facility] Work Phone: 03-23-2022 22:05-0500 Inhaled oxygen flow rate 2 L/min Dr. Alexi Morin Work Phone: [facility] 03-06-2022 15:55-0500 Diastolic blood pressure 64 mm[Hg] Dr. Alexi Morin Work Phone: [facility] 03-06-2022 15:55-0500 Heart rate 71 /min Dr. Alexi Morin Work Phone: [facility] 03-06-2022 15:55-0500 Respiratory rate 16 /min Dr. Alexi Morin Work Phone: [facility] 03-06-2022 15:55-0500 SaO2% (BldA) [Mass fraction] 98 % Dr. Alexi Morin Work Phone: [facility] 03-06-2022 15:55-0500 Systolic blood pressure 133 mm[Hg] Dr. Alexi Morin Work Phone: [facility] 03-06-2022 12:39-0500 Body height 152.[address] Alexi Morin Work Phone: [facility] [facility] Work Phone: 03-06-2022 12:39-0500 Body mass index (BMI) [Ratio] 40 kg/m2 Dr. Alexi Morin Work Phone: [facility] 03-06-2022 12:39-0500 Body temperature 97.8 [degF] Dr. Alexi Morin Work Phone: [facility] 03-06-2022 12:39-0500 Body weight 92.[address] Alexi Morin Work Phone: [facility] 02-28-2022 10:36-0500 Body mass index (BMI) [Ratio] 40.4 kg/m2 Dr. Alexi Morin Work Phone: [facility] 02-28-2022 10:36-0500 Body weight 93.[address] Alexi Morin Work Phone: [facility] 02-28-2022 10:36-0500 Diastolic blood pressure 72 mm[Hg] Dr. Alexi Morin Work Phone: [facility] 02-28-2022 10:36-0500 Heart rate 73 /min Dr. Alexi Morin Work Phone: [facility] 02-28-2022 10:36-0500 Respiratory rate 18 /min Dr. Alexi Morin Work Phone: [facility] 02-28-2022 10:36-0500 Systolic blood pressure 116 mm[Hg] Dr. Alexi Morin Work Phone: 4([phone] [place] [address] 01-19-2022 08:34-0400 Body temperature 97.3 [degF] Dr. Alexi Morin Work Phone: 9(097)[phone] [place] [address] 01-19-2022 08:34-0400 Body weight 93.[address] Alexi Morin Work Phone: 5(097)[phone] [place] [address] 01-19-2022 08:34-0400 Diastolic blood pressure 70 mm[Hg] Dr. Alexi Morin Work Phone: 0(370)[phone] [place] [address] 01-19-2022 08:34-0400 Heart rate 74 /min Dr. Alexi Morin Work Phone: [facility] 01-19-2022 08:34-0400 Respiratory rate 18 /min Dr. Alexi Morin Work Phone: [facility] 01-19-2022 08:34-0400 SaO2% (BldA) [Mass fraction] 98 % Dr. Alexi Morin Work Phone: [facility] 01-19-2022 08:34-0400 Systolic blood pressure 107 mm[Hg] Dr. Alexi Morin Work Phone: [facility] 01-19-2022 08:34-0400 Body height 152.[address] Alexi Morin Work Phone: [facility] Work Phone: 12-01-2021 09:58-0400 Diastolic blood pressure 70 mm[Hg] Dr. Alexi Morin Work Phone: [facility] Work Phone: 12-01-2021 09:58-0400 Heart rate 81 /min Dr. Alexi Morin Work Phone: [facility] Work Phone: 12-01-2021 09:58-0400 Systolic blood pressure 116 mm[Hg] Dr. Alexi Morin Work Phone: [facility] Work Phone: 12-01-2021 09:43-0400 Body height 152.[address] Alexi Morin Work Phone: [facility] Work Phone: 12-01-2021 09:43-0400 Body mass index (BMI) [Ratio] 39.6 kg/m2 Dr. Alexi Morin Work Phone: [facility] Work Phone: 12-01-2021 09:43-0400 Body weight 92.[address] Alexi Morin Work Phone: [facility] Work Phone: 12-01-2021 09:43-0400 Respiratory rate 18 /min Dr. Aelxi Morin Work Phone: [facility] Work Phone: 11-20-2021 16:39-0400 Diastolic blood pressure 72 mm[Hg] PRINCESS STEPHEN MD [facility] 11-20-2021 16:39-0400 Heart rate 82 /min PRINCESS STEPHEN MD [facility] 11-20-2021 16:39-0400 Respiratory rate 18 /min PRINCESS STEPHEN MD [facility] 11-20-2021 16:39-0400 Systolic blood pressure 110 mm[Hg] PRINCESS STEPHEN MD [facility] 11-20-2021 15:17-0400 Body temperature 98.06 [degF] PRINCESS STEPHEN MD [facility] 11-20-2021 15:17-0400 Diastolic blood pressure 62 mm[Hg] PRINCESS STEPHEN MD [facility] 11-20-2021 15:17-0400 Heart rate 83 /min PRINCESS STEPHEN MD [facility] 11-20-2021 15:17-0400 Respiratory rate 18 /min PRINCESS STEPHEN MD [facility] 11-20-2021 15:17-0400 Systolic blood pressure 106 mm[Hg] PRINCESS STEPHEN MD [facility] 10-07-2021 10:28-0400 Body height 152.[address] Alexi Morin Work Phone: [facility] Work Phone: 10-07-2021 10:28-0400 Body mass index (BMI) [Ratio] 39.6 kg/m2 Dr. Alexi Morin Work Phone: [facility] Work Phone: 10-07-2021 10:28-0400 Body temperature 97.4 [degF] Dr. Alexi Morin Work Phone: [facility] Work Phone: 10-07-2021 10:28-0400 Body weight 92.[address] Alexi Morin Work Phone: [facility] Work Phone: 10-07-2021 10:28-0400 Diastolic blood pressure 71 mm[Hg] Dr. Alexi Morin Work Phone: [facility] Work Phone: 10-07-2021 10:28-0400 Heart rate 75 /min Dr. Alexi Morin Work Phone: [facility] Work Phone: 10-07-2021 10:28-0400 Respiratory rate 20 /min Dr. Alexi Morin Work Phone: [facility] Work Phone: 10-07-2021 10:28-0400 SaO2% (BldA) [Mass fraction] 97 % Dr. Alexi Morin Work Phone: [facility] Work Phone: 10-07-2021 10:28-0400 Systolic blood pressure 115 mm[Hg] Dr. Alexi Morin Work Phone: [facility] Work Phone: 09-22-2021 13:57-0400 Body height 152.[address] Alexi Morin Work Phone: [facility] Work Phone: 09-22-2021 13:57-0400 Body weight 88.[address] Alexi Morin Work Phone: [facility] Work Phone: 09-22-2021 13:57-0400 Heart rate 86 /min Dr. Alexi Morin Work Phone: [facility] Work Phone: 09-22-2021 13:57-0400 SaO2% (BldA) [Mass fraction] 95 % Dr. Alexi Morin Work Phone: [facility] Work Phone: 09-07-2021 10:45-0400 Body mass index (BMI) [Ratio] 39.2 kg/m2 Dr. Alexi Morin Work Phone: [facility] Work Phone: 09-07-2021 10:45-0400 Body temperature 97.5 [degF] Dr. Alexi Morin Work Phone: [facility] Work Phone: 09-07-2021 10:45-0400 Body weight 91.[address] Alexi Morin Work Phone: [facility] Work Phone: 09-07-2021 10:45-0400 Diastolic blood pressure 76 mm[Hg] Dr. Alexi Morin Work Phone: [facility] Work Phone: 09-07-2021 10:45-0400 Heart rate 65 /min Dr. Alexi Morin Work Phone: [facility] Work Phone: 09-07-2021 10:45-0400 Respiratory rate 17 /min Dr. Alexi Morin Work Phone: [facility] Work Phone: 09-07-2021 10:45-0400 SaO2% (BldA) [Mass fraction] 95 % Dr. Alexi Morin Work Phone: [facility] Work Phone: 09-07-2021 10:45-0400 Systolic blood pressure 117 mm[Hg] Dr. Alexi Morin Work Phone: [facility] Work Phone: 09-07-2021 10:45-0400 Body height 152.[address] Alexi Morin Work Phone: [facility] Work Phone: 09-07-2021 10:45-0400 Body mass index (BMI) [Ratio] 39.2 kg/m2 Dr. Alexi Morin Work Phone: [facility] Work Phone: 09-07-2021 10:45-0400 Body temperature 97.5 [degF] Dr. Alexi Morin Work Phone: [facility] Work Phone: 09-07-2021 10:45-0400 Body weight 91.[address] Alexi Morin Work Phone: [facility] Work Phone: 09-07-2021 10:45-0400 Diastolic blood pressure 76 mm[Hg] Dr. Alexi Morin Work Phone: [facility] Work Phone: 09-07-2021 10:45-0400 Heart rate 65 /min Dr. Alexi Morin Work Phone: [facility] Work Phone: 09-07-2021 10:45-0400 Respiratory rate 17 /min Dr. Alexi Morin Work Phone: [facility] Work Phone: 09-07-2021 10:45-0400 SaO2% (BldA) [Mass fraction] 95 % Dr. Alexi Morin Work Phone: [facility] Work Phone: 09-07-2021 10:45-0400 Systolic blood pressure 117 mm[Hg] Dr. Alexi Morin Work Phone: [facility] Work Phone: 08-31-2021 10:49-0400 Body mass index (BMI) [Ratio] 38.9 kg/m2 Dr. Alexi Morin Work Phone: [facility] Work Phone: 08-31-2021 10:49-0400 Body weight 90.[address] Alexi Morin Work Phone: [facility] Work Phone: 08-31-2021 10:49-0400 Diastolic blood pressure 70 mm[Hg] Dr. Alexi Morin Work Phone: [facility] Work Phone: 08-31-2021 10:49-0400 Heart rate 72 /min Dr. Alexi Morin Work Phone: [facility] Work Phone: 08-31-2021 10:49-0400 Respiratory rate 18 /min Dr. Alexi Morin Work Phone: [facility] Work Phone: 08-31-2021 10:49-0400 Systolic blood pressure 110 mm[Hg] Dr. Alexi Morin Work Phone: [facility] Work Phone: 08-31-2021 10:49-0400 Body mass index (BMI) [Ratio] 38.9 kg/m2 Dr. Alexi Morin Work Phone: [facility] Work Phone: 08-31-2021 10:49-0400 Body weight 90.[address] Alexi Morin Work Phone: [facility] Work Phone: 08-31-2021 10:49-0400 Diastolic blood pressure 70 mm[Hg] Dr. Alexi Morin Work Phone: [facility] Work Phone: 08-31-2021 10:49-0400 Heart rate 72 /min Dr. Alexi Morin Work Phone: [facility] Work Phone: 08-31-2021 10:49-0400 Respiratory rate 18 /min Dr. Alexi Morin Work Phone: [facility] Work Phone: 08-31-2021 10:49-0400 Systolic blood pressure 110 mm[Hg] Dr. Alexi Morin Work Phone: [facility] Work Phone: 08-11-2021 08:19-0400 Body mass index (BMI) [Ratio] 39.2 kg/m2 Dr. Alexi Morin Work Phone: [facility] Work Phone: 08-11-2021 08:19-0400 Body weight 91.[address] Alexi Morin Work Phone: [facility] Work Phone: 08-11-2021 08:19-0400 Diastolic blood pressure 65 mm[Hg] Dr. Alexi Morin Work Phone: [facility] Work Phone: 08-11-2021 08:19-0400 Heart rate 64 /min Dr. Alexi Morin Work Phone: [facility] Work Phone: 08-11-2021 08:19-0400 Respiratory rate 16 /min Dr. Alexi Morin Work Phone: [facility] Work Phone: 08-11-2021 08:19-0400 Systolic blood pressure 122 mm[Hg] Dr. Alexi Morin Work Phone: [facility] Work Phone: 08-11-2021 08:19-0400 Body height 152.[address] Alexi Morin Work Phone: [facility] Work Phone: 08-11-2021 08:19-0400 Body mass index (BMI) [Ratio] 39.2 kg/m2 Dr. Alexi Morin Work Phone: [facility] Work Phone: 08-11-2021 08:19-0400 Body weight 91.[address] Alexi Morin Work Phone: [facility] Work Phone: 08-11-2021 08:19-0400 Diastolic blood pressure 65 mm[Hg] Dr. Alexi Morin Work Phone: [facility] Work Phone: 08-11-2021 08:19-0400 Heart rate 64 /min Dr. Alexi Morin Work Phone: [facility] Work Phone: 08-11-2021 08:19-0400 Respiratory rate 16 /min Dr. Alexi Morin Work Phone: [facility] Work Phone: 08-11-2021 08:19-0400 Systolic blood pressure 122 mm[Hg] Dr. Alexi Morin Work Phone: [facility] Work Phone: 07-22-2021 07:41-0400 Body height 152.[address] Alexi Morin Work Phone: [facility] Work Phone: 07-22-2021 07:41-0400 Body weight 88.[address] Alexi Morin Work Phone: [facility] Work Phone: 07-21-2021 07:01-0400 Body mass index (BMI) [Ratio] 38.2 kg/m2 Dr. Alexi Morin Work Phone: [facility] Work Phone: 07-07-2021 14:14-0400 Body mass index (BMI) [Ratio] 379.4 kg/m2 Dr. Alexi Morin Work Phone: [facility] Work Phone: 07-07-2021 14:14-0400 Body temperature 98.1 [degF] Dr. Alexi Morin Work Phone: [facility] Work Phone: 07-07-2021 14:14-0400 Body weight 881.[address] Alexi Morin Work Phone: [facility] Work Phone: 07-07-2021 14:14-0400 Diastolic blood pressure 78 mm[Hg] Dr. Alexi Morin Work Phone: [facility] Work Phone: 07-07-2021 14:14-0400 Heart rate 75 /min Dr. Alexi Morin Work Phone: [facility] Work Phone: 07-07-2021 14:14-0400 Respiratory rate 16 /min Dr. Alexi Morin Work Phone: [facility] Work Phone: 07-07-2021 14:14-0400 SaO2% (BldA) [Mass fraction] 95 % Dr. Alexi Morin Work Phone: [facility] Work Phone: 07-07-2021 14:14-0400 Systolic blood pressure 132 mm[Hg] Dr. Alexi Morin Work Phone: [facility] Work Phone: 07-03-2021 08:19-0400 Body mass index (BMI) [Ratio] 37.8 kg/m2 Dr. Alexi Morin Work Phone: [facility] Work Phone: 07-03-2021 08:19-0400 Body temperature 96.8 [degF] Dr. Alexi Morin Work Phone: [facility] Work Phone: 07-03-2021 08:19-0400 Body weight 87.[address] Alexi Morin Work Phone: [facility] Work Phone: 07-03-2021 08:19-0400 Diastolic blood pressure 94 mm[Hg] Dr. Alexi Morin Work Phone: [facility] Work Phone: 07-03-2021 08:19-0400 Heart rate 68 /min Dr. Alexi Moirn Work Phone: [facility] Work Phone: 07-03-2021 08:19-0400 Respiratory rate 18 /min Dr. Alexi Morin Work Phone: [facility] Work Phone: 07-03-2021 08:19-0400 SaO2% (BldA) [Mass fraction] 95 % Dr. Alexi Morin Work Phone: [facility] Work Phone: 07-03-2021 08:19-0400 Systolic blood pressure 165 mm[Hg] Dr. Alexi Morin Work Phone: [facility] Work Phone: 06-29-2021 13:55-0500 Body mass index (BMI) [Ratio] 38.2 kg/m2 Dr. Alexi Morin Work Phone: [facility] Work Phone: 06-29-2021 13:55-0500 Body weight 88.[address] Alexi Morin Work Phone: [facility] Work Phone: 06-29-2021 13:55-0500 Diastolic blood pressure 74 mm[Hg] Dr. Alexi Morin Work Phone: [facility] Work Phone: 06-29-2021 13:55-0500 Heart rate 60 /min Dr. Alexi Morin Work Phone: [facility] Work Phone: 06-29-2021 13:55-0500 Respiratory rate 18 /min Dr. Alexi Morin Work Phone: [facility] Work Phone: 06-29-2021 13:55-0500 Systolic blood pressure 128 mm[Hg] Dr. Alexi Morin Work Phone: [facility] Work Phone: 06-29-2021 12:55-0500 Body mass index (BMI) [Ratio] 38.2 kg/m2 Dr. Alexi Morin Work Phone: [facility] Work Phone: 06-29-2021 12:55-0500 Body weight 88.[address] Alexi Morin Work Phone: [facility] Work Phone: 06-29-2021 12:55-0500 Diastolic blood pressure 74 mm[Hg] Dr. Alexi Morin Work Phone: [facility] Work Phone: 06-29-2021 12:55-0500 Heart rate 60 /min Dr. Alexi Morin Work Phone: [facility] Work Phone: 06-29-2021 12:55-0500 Respiratory rate 18 /min Dr. Alexi Morin Work Phone: [facility] Work Phone: 06-29-2021 12:55-0500 Systolic blood pressure 128 mm[Hg] Dr. Alexi Morin Work Phone: [facility] Work Phone: 05-10-2021 09:39-0500 Body mass index (BMI) [Ratio] 37.8 kg/m2 Dr. Alexi Morin Work Phone: [facility] Work Phone: 05-10-2021 09:39-0500 Body weight 87.[address] Alexi Morin Work Phone: [facility] Work Phone: 05-10-2021 09:39-0500 Diastolic blood pressure 85 mm[Hg] Dr. Alexi Morin Work Phone: [facility] Work Phone: 05-10-2021 09:39-0500 Heart rate 65 /min Dr. Alexi Morin Work Phone: [facility] Work Phone: 05-10-2021 09:39-0500 Respiratory rate 18 /min Dr. Alexi Morin Work Phone: [facility] Work Phone: 05-10-2021 09:39-0500 SaO2% (BldA) [Mass fraction] 94 % Dr. Alexi Morin Work Phone: [facility] Work Phone: 05-10-2021 09:39-0500 Systolic blood pressure 131 mm[Hg] Dr. Alexi Morin Work Phone: [facility] Work Phone: 03-22-2021 23:31-0500 Body weight 86.[address] Alexi Morin Work Phone: [facility] Work Phone: Encounters Encounter Date Encounter Type Care Provider Facility Start: 10-20-2024 Evaluation and management of inpatient Dr. Raulito Sen DO -Progressive Care Unit Work Phone: Start: 10-20-[address] Alexi Morin MD Work Phone: -[facility] Unit Start: 10-20-2024 End: 10-20-[address] Alexi Morin MD Work Phone: -[facility] Start: 10-20-2024 End: 10-20-2024 Patient encounter procedure Moi MOY -[facility] Work Phone: Start: 10-14-2024 End: 10-14-[address] Alexi Morin MD Work Phone: -Laboratory Specimen Start: 10-14-2024 End: 10-14-[address] Alexi Morin MD -Laboratory Specimen Work Phone: Start: 10-09-2024 Non-patient / Non-visit Dr. Melody Briceno MD -[facility] Work Phone: Start: 10-09-2024 End: 10-09-[address] Alexi Morin MD Work Phone: [facility] Work Phone: Start: 10-09-2024 End: 10-09-2024 Patient encounter procedure Romero HANCOCK -Pulmonary Services/Neurology Work Phone: Start: 09-01-2024 End: 09-01-[address] Melody Briceno MD -[facility] Work Phone: Start: 08-21-2024 End: 08-21-[address] Melody Briceno MD -[facility] Work Phone: Start: 07-09-2024 End: 07-09-[address] Alexi Morin MD Work Phone: [facility] Work Phone: Start: 07-09-2024 End: 07-09-[address] Alexi Morin MD -[facility] Work Phone: Start: 06-27-2024 End: 06-27-[address] Alexi Morin MD Work Phone: [facility] Work Phone: Start: 06-27-2024 End: 06-27-[address] Alexi Morin MD -Laboratory, Phy Office 3rd Flr Start: 06-03-2024 End: 07-04-2024 Telephone encounter Ama Gonzalez MD Work Phone: [facility] Cardiology Comment on above: Appointment (NEW PAT ) Start: 06-03-2024 End: 06-03-[address] Mehrdad Crowe DPM -Cardiovascular Services Work Phone: Start: 04-23-2024 End: 04-23-2024 Emergency department patient visit Dr. Campos Tomlin DO -Emergency Department Work Phone: Start: 12-08-2023 End: 12-08-2023 ambulatory Aguila Isaac RN NURSE ECD Comment on above: Palpitations Start: 08-17-2023 End: 08-17-[address] Alexi Morin Work Phone: [facility] Work Phone: Start: 08-17-2023 End: 08-17-[address] Alexi Morin Work Phone: [facility]-Laboratory, Phy Office 3rd Flr Start: 08-16-2023 End: 08-16-[address] Alexi Morin Work Phone: [facility] Work Phone: Start: 08-16-2023 End: 08-16-[address] [facility] Start: 08-15-2023 End: 08-15-[address] Alexi Morin Work Phone: [facility] Work Phone: Start: 08-15-2023 End: 08-15-[address] Alexi Morin Work Phone: [facility] Work Phone: Start: 08-14-2023 End: 08-14-[address] Alexi Morin Work Phone: [facility] Work Phone: Start: 08-14-2023 End: 08-14-[address] Alexi Morin Work Phone: [facility], [facility] Office 3rd Flr Start: 07-02-2023 End: 07-02-[address] Alexi Morin Work Phone: [facility] Work Phone: Start: 07-02-2023 End: 07-02-[address] Aelxi Morin Work Phone: [facility] Work Phone: Start: 06-19-2023 End: 06-19-[address] Alexi Morin Work Phone: [facility] Work Phone: Start: 06-19-2023 End: 06-19-[address] Alexi Morin Work Phone: [facility], [facility] Office 3rd Flr Start: 06-15-2023 End: 06-15-2023 Patient encounter procedure Igor Jimenez MD Work Phone: General Surgery Comment on above: Rectal bleeding (Wendy [facility]uila Dx) Start: 06-15-2023 End: 06-15-[address] Alexi Morin Work Phone: [facility] Work Phone: Start: 06-15-2023 End: 06-15-[address] [facility] Mor[facility] Work [facility]: Start: 2023 End: [address] Alex[facility] Mor[facility] Work [facility]: Start: 05-10-2023 End: 05-10-[address] Alexi Morin Work Phone: [facility] Work Phone: Start: 05-03-2023 End: 05-03-[address] Alexi Morin Work Phone: [facility] Work Phone: Start: 05-03-2023 End: 05-03-[address] Alexi Morin Work Phone: [facility] Work Phone: Start: 04-22-2023 End: 04-22-2023 Emergency department patient visit Dr. Alexi Morin [facility] Work [facility] Start: 04-10-2023 Non-patient / Non-visit Dr. Alexi Morin Work Phone: [facility] Work Phone: Start: 04-10-[address] Alexi degroot [facility] Work [facility] Start: 04-05-2023 End: 04-05-[address] Alexi Morin Work Phone: [facility] Work Phone: Start: 04-05-2023 End: 04-05-[address] Alexi Morin Work Phone: [facility] Work Phone: Start: 02-12-[address] Alexi kingsley Work Phone: [facility]-Physical Therapy Work Phone: Start: 02-06-2023 Non-patient / Non-visit Dr. Alexi Morin Work Phone: [facility] Start: 02-06-2023 End: 02-06-2023 Admission to same day surgery center Dr. Alexi Morin Work Phone: [facility]-Endoscopy Work Phone: Start: 02-06-2023 End: 02-06-[address] Alexi Morin Work Phone: [facility] Work Phone: Start: 02-05-[address] Alexi kingsley Work Phone: [facility]-Physical Therapy Work Phone: Start: 01-05-2023 End: 01-05-[address] Alexi Morin Work Phone: [facility] Work Phone: Start: 01-05-2023 End: 01-05-[address] Alexi Morin Work Phone: [facility]-Laboratory Work Phone: Start: 01-04-2023 End: 01-04-[address] Alexi Morin Work Phone: [facility] Work Phone: Start: 12-29-2022 End: 12-29-2022 Admission to same day surgery center Dr. Alexi Morin Work Phone: [facility]-Endoscopy Work Phone: Start: 12-29-2022 End: 12-29-[address] Alexi Morin Work Phone: [facility] Work Phone: Start: 12-21-2022 End: 12-21-[address] Alexi Morin Work Phone: [facility] G[facility] Work Phone: Start: 12-20-2022 End: 12-20-[address] Alexi Morin Work Phone: [facility] Work Phone: Start: 12-20-2022 End: 12-20-[address] Alexi Morin Work Phone: [facility]-Laboratory, Phy Office 3rd Flr Start: 11-24-2022 End: 11-24-2022 Admission to same day surgery center Dr. Alexi Morin Work Phone: [facility]-Manager Sound/Special Procedures Work Phone: Start: 11-24-2022 End: 11-24-[address] Alexi Morin Work Phone: [facility] Work Phone: Start: 11-23-2022 Non-patient / Non-visit Dr. Alexi Morin Work Phone: [facility] Inpatient Physicians Work Phone: Start: 11-23-2022 Non-patient / Non-visit Dr. Alexi Morin Work Phone: [facility] Start: 11-22-2022 Non-patient / Non-visit Dr. Alexi Morin Work Phone: [facility] In[facility] Physicians Work Phone: Start: 11-22-2022 End: 11-23-2022 Evaluation and management of inpatient Dr. Alexi Morin Work Phone: [facility]-Progressive Care Unit Work Phone: Start: 11-22-2022 End: 11-23-[address] Alexi Morin Work Phone: [facility] Work Phone: Start: 11-20-2022 End: 11-20-[address] Alexi Morin Work Phone: [facility] [facility], [facility] Work Phone: Start: 11-15-2022 End: 11-15-[address] Alexi Morin Work Phone: [facility] Work Phone: Start: 11-15-2022 End: 11-15-[address] [facility] Start: 11-15-2022 End: 11-15-[address] Alexi Morin Work Phone: [facility] Work Phone: Start: 10-30-2022 End: 10-30-[address] Alexi Morin Work Phone: [facility] Work Phone: Start: 10-30-2022 End: 10-30-[address] Alex[facility] Morin [facility] Phone[facility] Office [address] [place] [address] Start: 10-18-2022 End: 10-18-[address] Alexi Morin Work Phone: [facility] Work Phone: Start: 10-18-2022 End: 10-18-[address] Alexi Morin Work Phone: [facility] Work Phone: Start: 10-10-2022 End: 10-10-[address] Alexi Morin Work Phone: [facility] Work Phone: Start: 10-10-2022 End: 10-10-[address] Alexi Morin Work Phone: [facility]-Nuclear Medicine, [facility] Start: 10-09-2022 End: 10-09-2022 Emergency department patient visit Dr. Alexi Morin Work Phone: [facility]-Emergency Department Start: 09-26-2022 End: 09-26-[address] [facility] Mor[facility] Phone[facility] Start: 09-20-2022 End: 09-20-2022 ambulatory Dr. Alexi Morin Work Phone: [facility] Work Phone: Start: 09-20-2022 End: 09-20-[address] Alexi Morin Work Phone: [facility]Laboratory, Specimen Start: 09-14-2022 End: 09-14-[address] Alexi Morin Work Phone: [facility] Start: 07-20-2022 Non-patient / Non-visit Dr. Alexi Morin Work Phone: [facility] Start: 07-20-2022 End: 07-20-[address] Alexi Morin Work Phone: [facility] Start: 07-19-2022 End: 07-19-[address] Alexi Morin Work Phone: [facility] Work Phone: Start: 07-19-2022 End: 07-19-[address] Alexi Morin Work Phone: [facility]Cardiovascular Services Start: 07-13-2022 End: 07-13-[address] Alexi Morin Work Phone: [facility] Work Phone: Start: 07-13-2022 End: 07-13-[address] [facility] Start: 07-06-2022 End: 07-06-[address] Alexi Morin Work Phone: [facility] Work Phone: Start: 07-06-2022 End: 07-06-[address] [facility] Start: 07-06-2022 End: 07-06-[address] Alexi Morin Work Phone: [facility] Start: 06-14-2022 End: 06-14-[address] Alexi Morin Work Phone: [facility] Work Phone: Start: 06-14-2022 End: 06-14-[address] Alexi Morin [facility] Start: 05-11-2022 End: 05-11-[address] Alexi Morin [facility] Start: 05-01-2022 ambulatory Alexi Morin Facility:[facility] Start: 05-01-2022 End: 05-01-[address] Alexi Morin Work Phone: [facility] Work Phone: Start: 05-01-2022 End: 05-01-[address] Alexi Morin [facility] Start: 04-13-2022 End: 04-13-[address] Alexi Morin Work Phone: [facility] Work Phone: Start: 04-13-2022 End: 04-13-[address] Alexi Morin Work Phone: [facility]Outpatient Breast Imaging Start: 03-29-2022 End: 03-29-[address] Alexi Morin Work Phone: [facility] Work Phone: Start: 03-29-2022 End: 03-29-[address] Alexi Morin Work Phone: [facility]-Pulmonary Services/Neurology Start: 03-27-2022 End: 03-27-2022 ambulatory Alexi Morin Facility:[facility] Start: 03-27-2022 End: 03-27-[address] Alexi Morin Work Phone: [facility] Start: 03-25-2022 Non-patient / Non-visit Dr. Alexi Morin Work Phone: [facility] Phys[facility] Start: 03-25-2022 ambulatory Alexi Morin Facility:[facility] Start: 03-25-2022 Non-patient / Non-visit Dr. Alexi Morin Work Phone: [facility] Start: 03-24-2022 Non-patient / Non-visit Dr. Alexi Morin Work Phone: [facility] Start: 03-24-2022 Non-patient / Non-visit Dr. Alexi Morin Work Phone: [facility] Start: 03-24-2022 End: 03-25-2022 ambulatory Alexi Morin Facility:[facility] Start: 03-24-2022 Non-patient / Non-visit Dr. Alexi Morin Work Phone: [facility] Start: 03-24-2022 End: 03-25-2022 Evaluation and management of inpatient Dr. Alexi Morin Work Phone: [facility]-Progressive Care Unit Start: 03-24-2022 End: 03-25-[address] Alexi Morin Work Phone: [facility] Work Phone: Start: 03-13-2022 ambulatory Alexi Avi Morin Facility:[facility] Start: 03-06-2022 End: 03-06-2022 Emergency department patient visit Alexi Avi Laraok Facility:[facility] Start: 03-06-2022 End: 03-06-2022 Emergency department patient visit Dr. Alexi Morin Work Phone: [facility]Emergency Department Start: 02-28-2022 End: 02-28-2022 ambulatory Alexi Morin Facility:[facility] Start: 02-28-2022 End: 02-28-[address] Alexi Morin Work Phone: [facility] Work Phone: Start: 02-28-2022 End: 02-28-[address] Alexi Morin Work Phone: [facility] Start: 02-27-2022 End: 02-27-[address] Alexi Morin Work Phone: [facility], Specimen Start: 02-27-2022 End: 02-27-[address] Alexi Morin Work Phone: [facility] Work Phone: Start: 01-20-2022 End: 01-20-[address] Alexi Morin Work Phone: [facility] Work Phone: Start: 01-20-2022 End: 01-20-[address] Alex[facility] Mor[facility] Start: 01-19-2022 End: 01-19-2022 ambulatory Alexi Morin Facility:[facility] Start: 01-19-2022 End: 01-19-[address] [facility] Start: 12-19-2021 End: 12-19-[address] Alexi Morin Work Phone: [facility] Work Phone: Start: 12-19-2021 End: 12-19-[address] Alexi Morin Work Phone: [facility]-Outpatient Breast Imaging Start: 12-13-2021 End: 12-13-2021 ambulatory Alexi Chi Mikel Facility:[facility] Start: 12-13-2021 End: 12-13-[address] Alexi Morin Work Phone: [facility]Laboratory, Phy Office 3rd Flr Start: 12-01-2021 End: 12-01-[address] Alexi Morin Work Phone: [facility] Start: 12-01-2021 End: 12-01-2021 ambulatory Alexi Morin Facility:[facility] Start: 12-01-2021 End: 12-01-[address] Alexi Morin Work Phone: [facility] Start: 11-20-2021 End: 11-20-2021 Emergency department patient visit PRINCESS STEPHEN MD [facility] Start: 10-31-2021 End: 10-31-[address] Alexi Morin Work Phone: [facility]Labor[facility], Specimen Start: 10-31-2021 End: 10-31-2021 ambulatory Alexi Chi Mikel Facility:[facility] Start: 10-14-2021 End: 10-14-2021 ambulatory Alexi Chi Mikel Facility:[facility] Start: 10-14-2021 End: 10-14-[address] Alexi Morin Work Phone: [facility] Start: 10-13-2021 End: 10-13-[address] Alexi Morin Work Phone: [facility]-Labor[facility], Phy Office 3rd Flr Start: 10-13-2021 End: 10-13-2021 ambulatory Alexi Chi Mikel Facility:[facility] Start: 10-07-2021 End: 10-07-2021 ambulatory Alexi Chi Mikel Facility:[facility] Start: 10-07-2021 End: 10-07-[address] Alex[facility] Mor[facility] Start: 10-04-2021 End: 10-04-2021 ambulatory Alexi Chi Mikel Facility:[facility] Start: 10-04-2021 Non-patient / Non-visit Dr. Alexi Morin Work Phone: [facility] Start: 10-04-2021 End: 10-04-[address] Alexi Morin Work Phone: [facility] Start: 09-28-2021 Non-patient / Non-visit Dr. Alexi Morin Work Phone: [facility] Start: 09-28-2021 End: 09-28-2021 ambulatory Alexi Chi Mikel Facility:[facility] Start: 09-28-2021 End: 09-28-[address] Alexi Morin Work Phone: [facility] Services/Neurology Start: 09-23-2021 ambulatory Alexi Chi Mikel [facility] Start: 09-23-2021 Non-patient / Non-visit Dr. Alexi Morin Work Phone: [facility] Start: 09-22-2021 End: 09-22-2021 ambulatory Alexi Chi Mikel Facility:[facility] Start: 09-22-2021 End: 09-22-[address] Alex[facility] Mor[facility] Start: 09-15-2021 End: 09-15-2021 ambulatory Alexi Chi Mikel Facility:[facility] Start: 09-15-2021 End: 09-15-[address] Alexi Morin Work Phone: [facility]-Laboratory, Phy Office 3rd Flr Start: 09-07-2021 End: 09-07-2021 ambulatory Alexi Avi Mikel Facility:[facility] Start: 09-07-2021 End: 09-07-[address] Alex[facility] Morin [facility] Start: 08-31-2021 End: 08-31-2021 ambulatory Alexi Avi Morin Facility:[facility] Start: 08-31-2021 End: 08-31-[address] Alexi Morin Work Phone: [facility] Start: 08-25-2021 End: 08-25-[address] Alex[facility] Morin [facility] Start: 08-25-2021 End: 08-25-2021 ambulatory Alexi Avi Morin Facility[facility] Start: 08-17-2021 End: 08-17-2021 ambulatory Alexi Morin Facility:[facility] Start: 08-17-[address] Alexi edgroot Work Phone: [facility]Cardi[facility] Services Start: 08-17-2021 Non-patient / Non-visit Dr. Alexi Morin Work Phone: [facility] Start: 08-17-2021 End: 08-17-[address] Alexi Morin Work Phone: [facility] Services/Neurology Start: 08-11-2021 End: 08-11-2021 ambulatory Gallo Rashidparocío Facility:[facility] Start: 08-11-2021 End: 08-11-[address] Alexi Morin Work Phone: [facility] Start: 08-11-2021 End: 08-11-[address] Alexi Morin Work Phone: [facility] Start: 08-11-2021 Non-patient / Non-visit Dr. Alexi Morin Work Phone: [facility] Start: 07-22-2021 End: 07-23-2021 ambulatory [facility] Facility:[facility] Start: 07-22-2021 End: 07-22-2021 Admission to same day surgery center Dr. Alexi Morin Work Phone: [facility]-Manager Sound/Special Procedures Start: 07-21-2021 ambulatory [facility] Start: 07-21-2021 Non-patient / Non-visit Dr. Alexi Morin Work Phone: [facility] Start: 07-07-2021 End: 07-07-2021 Emergency department patient visit Alexi Morin Facility:[facility] Start: 07-07-2021 End: 07-07-2021 Emergency department patient visit Dr. Alexi Morin Work Phone: [facility]Emergency [facility] Start: 07-03-2021 End: 07-03-2021 Emergency department patient visit Loco Dejesus Facility:[facility] Start: 07-03-2021 End: 07-03-2021 Emergency department patient visit Dr. Alexi Morin Work Phone: [facility]Emergency [facility] Start: 06-29-2021 End: 06-29-2021 ambulatory Romero Momo Davie Facility:[facility] Start: 06-29-2021 End: 06-29-[address] Alexi Morin Work Phone: [facility] Start: 06-09-2021 End: 06-10-2021 ambulatory Alexi Morin Facility:[facility] Start: 06-09-2021 End: 06-09-[address] Alexi Morin Work Phone: [facility]-Laboratory, Phy Office 3rd Flr Start: 05-19-2021 End: 05-20-2021 ambulatory Ember Lan Facility:[facility] Start: 05-19-2021 End: 05-19-[address] Alexi Morin Work Phone: [facility]Cardi[facility] Services Start: 05-10-2021 End: 05-10-2021 ambulatory Alexi Morin Facility:[facility] Start: 05-10-2021 End: 05-10-[address] Alexi Morin Work Phone: [facility] Start: 05-06-2021 End: 05-07-2021 ambulatory Alexi Morin Facility:[facility] Start: 05-06-2021 End: 05-06-[address] Alexi Morin Work Phone: [facility]-Laboratory, Specimen Start: 03-30-[address] Alexi Morin Work Phone: [facility]-Outpatient Breast Imaging Start: 03-30-2021 End: 04-22-[address] Alexi Morin Work Phone: [facility]Cardiac Rehab Start: 03-05-2018 End: 03-05-2018 Patient encounter procedure ZAIRAHANANE GRANT [facility] Start: 11-29-2017 Patient encounter procedure ZAIRAHANANE GRANT [facility] Start: 08-28-2017 End: 08-28-2017 Patient encounter procedure ZAIRAHANANE SCOTTI [facility] Start: 07-24-2017 Patient encounter procedure ZAIRAHANANE SCOTTI [facility] Start: 07-19-2017 End: 07-19-2017 Patient encounter procedure ZAIRAHANANE GRANT [facility] Start: 12-22-2016 End: 12-22-2016 Emergency department patient visit [facility] Facility:[facility] Procedures Date Procedure Procedure Detail Performing Clinician Start: 10-20-[address] Alexi kingsley MD Work Phone: Start: 10-20-2024 X-ray of chest, PA and lateral views Dr. Alexi Morin MD Work Phone: Start: 10-14-[address] Alexi Morin MD Work Phone: Start: 07-09-2024 MRI of abdomen with contrast Dr. Alexi thorne MD Work Phone: Start: 06-27-2024 Vitamin D, 25-hydroxy measurement Dr. Solitario Morin MD Work Phone: Comment on above: Vitamin D StatusDeficiency: <20 ng/mL (5 0nmol/L)Insufficiency: 20-30 ng/mL (50-75 nmol/L)Sufficiency: 30-100 ng/mL (75-250 nmol/L)Toxicity: >100 ng/mL (>250 nmol/L) Start: 04-23-2024 Computed tomography of abdomen and pelvis with intravenous contrast Dr. Alexi Morin MD Work Phone: Start: 08-16-2023 Measurement of occult blood in stool specimen using immunoassay Dr. Alexi Morin Work Phone: Start: 08-15-2023 CT angiography of chest with contrast Dr. Alexi Morin Work Phone: Start: 08-14-2023 Plain chest X-ray Dr. Alexi Morin Work Phone: Start: 2023 SARS-CoV-2, Influenza & RSV (PCR) Dr. Solitario Morin Work Phone: Start: 02-06-[address] Alexi Morin Work Phone: Start: 11-23-2022 MRI of brain without contrast Dr. Alexi degroot Work Phone: Start: 11-22-2022 CT of head without contrast Dr. Alexi Morin Work Phone: Start: 11-20-[address] Alexi Morin Work Phone: Start: 10-30-[address] Alexi Morin Work Phone: Start: 10-10-2022 Radionuclide gastric emptying study Dr. Alexi Morin Work Phone: Start: 10-09-2022 Plain chest X-ray Dr. Alexi Morin Work Phone: Start: 09-26-2022 Radiologic examination of upper gastrointestinal tract and small bowel with serial films Dr. Alexi Morin Work Phone: Start: 09-20-[address] Alexi Morin Work Phone: Start: 07-19-2022 Cardiovascular stress test using pharmacologic stress agent Dr. Alexi Morin Work Phone: Start: 07-13-[address] Alexi Morin Work Phone: Start: 04-13-[address] Alexi Morin Work Phone: Start: 03-25-[address] Alexi Morin Work Phone: Start: 03-24-2022 CT angiography of chest with contrast Dr. Alexi Morin Work Phone: Start: 03-23-2022 Plain chest X-ray Dr. Alexi Morin Work Phone: Start: 03-06-2022 Plain chest X-ray Dr. Alexi Morin Work Phone: Start: 12-19-[address] Alexi Morin Work Phone: Start: 12-19-[address] Alexi Morin Work Phone: Start: 10-14-2021 MRI of brain without contrast Dr. Alexi degroot Work Phone: Start: 08-25-[address] Alexi Morin Work Phone: Start: 07-11-2021 Plain chest X-ray Dr. Alexi Morin Work Phone: Start: 05-06-[address] Alexi Morin Work Phone: Start: 03-30-[address] Alexi Morin Work Phone: Start: 11-16-2020 History of placement of stent for coronary artery disease History of coronary artery stent placement Dr. Alexi Morin Work Phone: Heart structure (body structure) PRINCESS STEPHEN MD History of operative procedure on knee History of right knee joint replacement Dr. Alexi Morin Work Phone: History of placement of stent for coronary artery disease History of coronary artery stent placement Dr. Alexi Morin MD Work Phone: Comment on above: PCI of mLAD/D1 with Orsiro 3.0 x 22 mm D ES to mLAD and PTCA to D1 11/16/20ent to proximal LAD 01/31/2024 Influenza Types A,B Direct FA (SANTOSH) Dr. Alexi Morin Work Phone: Influenza Types A,B Direct FA (SANT[place]) Dr. Alexi Morin Work Phone: Respiratory syncytia l virus antigen assay Dr. Alexi Morin Work Phone: Respiratory syncytia l virus antigen assay Dr. Alexi Morin Work Phone: SARS-CoV-2 & FLU Antigen (Rapid) Dr. Alexi Morin Work Phone: SARS-CoV-2 & FLU Antigen (Rapid) Dr. Alexi Morin Work Phone: Urine culture Dr. Alexi Morin Work Phone: Urine culture Dr. Alexi Morin Work Phone: Urine culture Dr. Alexi Morin Work Phone: Urine culture Dr. Alexi Morin Work Phone: Urine culture Dr. Alexi Morin Work Phone: Urine culture Dr. Alexi Morin Work Phone: Plan of Treatment Date Care Activity Detail Author Start: 11-06-2028 Urine microalbumin profile DTaP,Tdap,Td Vaccine (3 - Td or Tdap) [facility] Start: 12-01-2024 End: 12-01-2024 Patient encounter procedure 12/01/2024 9:30 AM EDT Office Visit [facility] [address] [place] [address] Ama Gonzalez MD [address] [place] [address] NEW PAT; DAVEY [facility] Comment on above: SOLANGE MARISCAL Start: 10-20-2024 Admission procedure [facility] Start: 10-20-2024 Hospital admission, emergency, from emergency room, medical nature [facility] Start: 10-20-2024 [facility] Start: 10-20-2024 Evaluation of diagnostic study results [facility] Start: 10-14-2024 Bacteria identified in Urine by Culture Urine Culture [facility] Start: 10-14-2024 [facility] Start: 09-01-2024 Evaluation of diagnostic study results [facility] Start: 08-21-2024 Patient referral [facility] Work Phone: Start: 04-23-2024 Advance Directive Discussion Advance Directive Discussion [facility] Start: 04-23-2024 [facility] Start: 04-23-2024 Enteric precautions [facility] Start: 12-23-2023 Covid-19 Vaccine ( season) Covid-19 Vaccine () [facility] Start: 12-23-2023 Influenza vaccination Influenza Vaccine (#1) [facility] Start: 04-23-2023 Advance Directive Discussion Advance Directive Discussion [facility] Start: 04-23-2023 Depression Assessment Depression Assessment [facility] Start: 04-22-2023 [facility] Start: 04-22-2023 Ctrl nsl hemrrg pst nasal packs&/cautery 1st CONTROL OF NOSEBLEED [facility] Start: 02-06-2023 Esophagogastroduodenoscopy submucosal injection UPPR GI SCOPE W/SUBMUC INJ [facility] Start: 02-06-2023 Patient discharge [facility] Start: 12-29-2022 Esophageal motility study w/interp&rpt ESOPHAGUS MOTILITY STUDY [facility] Start: 12-22-2022 Covid-19 Vaccine () Covid-19 Vaccine () [facility] Start: 11-23-2022 End: 11-24-2022 Patient discharge [facility] Start: 11-23-2022 Blood chemistry [facility] Start: 11-23-2022 Thyroid stimulating hormone measurement [facility] Start: 11-22-2022 End: 11-22-2022 Following clinical pathway protocol [facility] Start: 11-22-2022 Ambulation without limitation [facility] Start: 11-22-2022 Assessment of risk of venous thromboembolism [facility] Start: 11-22-2022 Incentive spirometry [facility] Start: 11-22-2022 Insertion of catheter into peripheral vein [facility] Start: 11-22-2022 Measuring intake and output [facility] Start: 11-22-2022 Oxygen therapy [facility] Start: 11-22-2022 Providing care according to standard [facility] Start: 11-22-2022 Referral to occupational therapist [facility] Start: 11-22-2022 Referral to service [facility] Start: 11-22-2022 [facility] Start: 11-22-2022 MRI of brain without contrast Brain without Contrast [facility] Start: 11-22-2022 Admission procedure [facility] Start: 11-22-2022 Patient referral to dietitian [facility] Start: 2022 RSV Vaccine (1 - 1-dose 75+ series) RSV Vaccine (1 - 1-dose 75+ series) [facility] Start: 03-25-2022 Patient discharge [facility] Start: 03-24-2022 Catheterization of vein [facility] Start: 03-24-2022 Egd insert guide wire dilator passage esophagus EGD GUIDE WIRE INSERTION [facility] Start: 03-24-2022 Egd transoral biopsy single/multiple EGD BIOPSY SINGLE/MULTIPLE [facility] Start: 03-24-2022 Egd transoral control bleeding any method EGD CONTROL BLEEDING ANY [facility] Start: 03-24-2022 Referral to gastroenterology service [facility] Start: 03-24-2022 Following clinical pathway protocol [facility] Start: 03-24-2022 Following clinical pathway protocol [facility] Start: 03-24-2022 Assessment of risk of venous thromboembolism [facility] Start: 03-24-2022 Insertion of catheter into peripheral vein [facility] Start: 03-24-2022 Measuring intake and output [facility] Start: 03-24-2022 Oxygen therapy [facility] Start: 03-24-2022 Providing care according to standard [facility] Start: 03-24-2022 Provision of activity privileges [facility] Start: 03-24-2022 Referral to deliverer pharmacy [facility] Start: 03-24-2022 Tobacco use cessation education [facility] Start: 03-24-2022 [facility] Start: 03-24-2022 Troponin I measurement [facility] Work Phone: Start: 03-24-2022 Verification routine [facility] Work Phone: Start: 03-24-2022 Admission procedure [facility] Start: 03-23-2022 [facility] Work Phone: Start: 03-06-2022 [facility] Start: 08-31-2021 Patient referral [facility] Work Phone: Start: 12-20-2019 Pneumococcal Vaccine: 50+ (2 of 2 - PCV) Pneumococcal Vaccine: 50+ (2 of 2 - PCV) [facility] Start: 12-20-2019 Pneumococcal Vaccine: 65+ (2 of 2 - PCV) Pneumococcal Vaccine: 65+ (2 of 2 - PCV) [facility] Start: 01-27-2017 Diabetes Screening Diabetes Screening [facility] Start: 2007 RSV Vaccine (1 - 1-dose 60+ series) RSV Vaccine (1 - 1-dose 60+ series) [facility] Start: 1997 Shingrix Vaccine (1 of 2) Shingrix Vaccine (1 of 2) [facility] Start: 1965 Annual PCP Team Chronic Disease Visit Annual PCP Team Chronic Disease Visit [facility] Start: 1965 Anxiety Screening Anxiety Screening [facility] Start: 1965 BP Controlled (<130/80) BP Controlled (<130/80) [facility] Start: 1965 Depression Screening Depression Screening [facility] Start: 1965 Hepatitis C screening Hepatitis C Screening [facility] Anion gap measurement [facility] Blood chemistry [facility] Work Phone: Blood chemistry [facility] Brain natriuretic pe ptide measurement [facility] Work Phone: Brain natriuretic pe ptide measurement [facility] BUN/Creatinine ratio [facility] Calcium [Mass/volume ] in Serum or Plasma [facility] Carbon dioxide, tota l [Moles/volume] in Serum or Plasma [facility] Cardiac event recording [facility] Catheterization of left heart [facility] Work Phone: CBC W Auto Different ial panel - Blood [facility] Work Phone: CBC W Auto Different ial panel - Blood [facility] Chloride [Moles/volu me] in Serum or Plasma [facility] Creatinine [Moles/vo lume] in Serum or Plasma [facility] Glucose [Mass/volume ] in Serum or Plasma [facility] Hematocrit [Volume F raction] of Blood [facility] Hemoglobin [Mass/volume] in Blood [facility] Hemoglobin A1c/Hemog lobin.total in Blood [facility] Leukocytes [#/volume] in Blood [facility] Mean corpuscular hem oglobin concentration determination [facility] Mean corpuscular hem oglobin determination [facility] Measurement of renal function [facility] Measurement of respi ratory function [facility] Neutrophil count [facility] Neutrophil percent d ifferential count [facility] NM Heart Views W str ess and W radionuclide IV [facility] Patient Education [facility] Work Phone: Patient referral [facility] Work Phone: Platelets [#/volume] in Blood [facility] Polysomnography [facility] Work Phone: Polysomnography [facility] Potassium [Moles/vol ume] in Serum or Plasma [facility] Red blood cell count [facility] Red cell distributio n width determination [facility] Sodium [Moles/volume ] in Serum or Plasma [facility] T4 free measurement [facility] Work Phone: T4 free measurement [facility] Thyroid stimulating hormone measurement [facility] Work Phone: Thyroid stimulating hormone measurement [facility] Triiodothyronine, free measurement [facility] Work Phone: Triiodothyronine, free measurement [facility] Troponin I measurement [facility] Work Phone: Urea nitrogen [Mass/ volume] in Serum or Plasma [facility] Urine culture [facility] Immunizations Immunization Date Immunization Notes Care Provider Fa cilijuancarlos 04-27-2023 influenza virus vaccine, unspecified formulation Aguila Isaac RN [facility] 12-19-[address] Alexi Morin Work Phone: [facility] Work Phone: 12-19-2018 pneumococcal vaccine , unspecified formulation Dr. Alexi Morin Work Phone: [facility] 11-18-[address] Alexi Morin Work Phone: [facility] 11-06-2018 tetanus toxoid, redu nico diphtheria toxoid, and acellular pertussis vaccine, adsorbed Dr. Alexi Morin Work Phone: [facility] 03-29-[address] Alexi Morin Work Phone: [facility] 09-29-2008 tetanus toxoid, redu nico diphtheria toxoid, and acellular pertussis vaccine, adsorbed Igor Jimenez MD Work Phone: [facility] Payers Date Payer Category Payer Medicare (Managed Care) LISA LOPEZ O [id number] 2023 Unknown ANTHEM BLUE CROS S AND BLUE SHIELD ANTHEM MEDICARE ADVANTAGE HMO [id number] 2023-Present [phone] [address] [place] [address] HMO [id number] 2021 Self-pay [id number] 2020 Private Health Insurance [id number] 2020 Unknown [id number] 2016 Medicare [id number] 2010 Medicare [id number] Unknown [id number] 2.840.1.744126.3.579 .2.462 Unknown [id number] 2.840.1.169501.3.579 .2.462 Unknown [id number] 2.840.1.780109.3.579 .2.462 Unknown [id number] .840.1.607547.3.579 .2.462 Unknown [id number] 2.840.1.919694.3.579 .2.462 Unknown [id number] .840.1.734550.3.579 .2.462 Unknown [id number] 2.840.1.463696.3.579 .2.462 Unknown [id number] 2.16840.1.355857.3.579 .2.462 Unknown [id number] 2.840.1.146231.3.579 .2.462 Unknown [id number] 2.840.1.487738.3.579 .2.462 Unknown [id number] 2.16.840.1.122436.3.579 .2.462 Unknown [id number] 2.16.840.1.098295.3.579 .2.462 Unknown [id number] 2.16.840.1.321814.3.579 .2.462 Unknown [id number] 2.16.840.1.320563.3.579 .2.462 Unknown [id number] 2.840.1.779956.3.579 .2.462 Unknown [id number] 2.840.1.010797.3.579 .2.462 Unknown [id number] 2.840.1.545569.3.579 .2.462 Unknown [id number] 2.840.1.753824.3.579 .2.462 Unknown [id number] 2.840.1.347601.3.579 .2.462 Unknown [id number] 2.840.1.251010.3.579 .2.462 Unknown [id number] 2.840.1.104912.3.579 .2.462 Unknown [id number] 2.840.1.829654.3.579 .2.462 Unknown [id number] 2.840.1.152664.3.579 .2.462 Unknown [id number] 2.840.1.322605.3.579 .2.462 Unknown [id number] 2.840.1.624208.3.579 .2.462 Unknown [id number] 2..840.1.138026.3.579 .2.462 Unknown [id number] 2..840.1.033147.3.579 .2.462 Unknown [id number] 2.16.840.1.642930.3.579 .2.462 Unknown [id number] 2.840.1.445925.3.579 .2.462 Unknown [id number] 2.840.1.847028.3.579 .2.462 Unknown [id number] 2.840.1.999905.3.579 .2.462 Unknown [id number] 2.16840.1.395059.3.579 .2.462 Unknown [id number] 2.840.1.446356.3.579 .2.462 Unknown [id number] 2.840.1.772323.3.579 .2.462 Unknown [id number] 2.840.1.425241.3.579 .2.462 Unknown [id number] 2.840.1.877906.3.579 .2.462 Unknown [id number] 2.840.1.107696.3.579 .2.462 Unknown [id number] 2.840.1.927460.3.579 .2.462 Unknown [id number] 2.840.1.050795.3.579 .2.462 Unknown [id number] 2.840.1.110793.3.579 .2.462 Unknown [id number] 2.840.1.633107.3.579 .2.462 Unknown [id number] 2.840.1.634077.3.579 .2.462 Unknown [id number] 2.840.1.883524.3.579 .2.462 Unknown [id number] 2.840.1.521409.3.579 .2.462 Unknown [id number] 2.840.1.585804.3.579 .2.462 Unknown [id number] 2.840.1.352416.3.579 .2.462 Unknown [id number] 2.840.1.913162.3.579 .2.462 Unknown [id number] 2.840.1.737883.3.579 .2.462 Unknown [id number] 2.840.1.069520.3.579 .2.462 Unknown [id number] 2.840.1.754915.3.579 .2.462 Unknown [id number] 2.840.1.056354.3.579 .2.462 Unknown [id number] 2.0.1.025599.3.579 .2.462 Unknown [id number] 2.840.1.663316.3.579 .2.462 Social History Date Type Detail Facility Start: 07-22-2021 End: 07-02-2023 Tobacco smoking status RIIS Unknown if ever smoked [facility] Start: 02-11-2021 None [facility] Start: 02-11-2021 Homeless [facility] Start: 02-11-2021 Non-smoker [facility] Start: 1945 Sex Assigned At Female [facility] Tobacco smoking status No Smoking Status Entered [facility] Start: 04-02-2012 End: 10-20-2024 Tobacco smoking status RIIS Never smoked tobacco [facility] Start: 04-02-2012 Tobacco use and exposure Smokeless tobacco non-user [facility] Start: 06-17-2023 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) [facility] Start: 06-15-2023 End: 06-17-2023 History of Social function [facility] Start: 06-15-2023 End: 06-17-2023 Tobacco use panel [facility] National Score (1-100), lower number is lower risk 56 [facility] Start: 1945 Sex Assigned At Not on file [facility] Start: 07-10-2024 End: 07-18-2024 Sex Female (finding) [facility] NEGATED: Highlighted row [facility] Medical Equipment Procedure Code Equipment Code Equipment Origin al Text Equipment Identifier Dates CEMENT,BONE W/TOBRAMYCIN STRYK FDA Start: 05-12-2020 Femoral Posterio r Augment FDA Start: 05-12-2020 Femoral Posterio r Augment FDA Start: 05-12-2020 PLUG,BONE LARGE FDA Start: 05-12-2020 PLUG,BONE LARGE FDA Start: 05-12-2020 Tibial Symm Cone Augment FDA Start: 05-12-2020 Total Stabilizer Femoral [place] FDA Start: 05-12-2020 Total Stabilizer Tibial Insert FDA Start: 05-12-2020 [place] Tibial Baseplate FDA Start: 05-12-2020 CEMENT,BONE W/TOBRAMYCIN STRYK FDA Start: 05-12-2020 CEMENT,BONE W/TOBRAMYCIN STRYK FDA Start: 05-12-2020 CEMENT,BONE W/TOBRAMYCIN STRYK FDA Start: 05-12-2020 Cemented Stem FDA Start: 05-12-2020 Cemented Stem FDA Start: 05-12-2020 Femoral Cone Augment FDA Star t: 05-12-2020 Femoral Distal Augment FDA Start: 05-12-2020 Femoral Distal Augment FDA Start: 05-12-2020 CEMENT,BONE W/TOBRAMYCIN STRYK FDA Start: 05-12-2020 Femoral Posterio r Augment FDA Start: 05-12-2020 Femoral Posterio r Augment FDA Start: 05-12-2020 PLUG,BONE LARGE FDA Start: 05-12-2020 PLUG,BONE LARGE FDA Start: 05-12-2020 Tibial Symm Cone Augment FDA Start: 05-12-2020 Total Stabilizer Femoral [place] FDA Start: 05-12-2020 Total Stabilizer Tibial Insert FDA Start: 05-12-2020 [place] Tibial Baseplate FDA Start: 05-12-2020 CEMENT,BONE W/TOBRAMYCIN STRYK FDA Start: 05-12-2020 CEMENT,BONE W/TOBRAMYCIN STRYK FDA Start: 05-12-2020 CEMENT,BONE W/TOBRAMYCIN STRYK FDA Start: 05-12-2020 Cemented Stem FDA Start: 05-12-2020 Cemented Stem FDA Start: 05-12-2020 Femoral Cone Augment FDA Star t: 05-12-2020 Femoral Distal Augment FDA Start: 05-12-2020 Femoral Distal Augment FDA Start: 05-12-2020 CEMENT,BONE W/TOBRAMYCIN STRYK FDA Start: 05-12-2020 Femoral Posterio r Augment FDA Start: 05-12-2020 Femoral Posterio r Augment FDA Start: 05-12-2020 PLUG,BONE LARGE FDA Start: 05-12-2020 PLUG,BONE LARGE FDA Start: 05-12-2020 Tibial Symm Cone Augment FDA Start: 05-12-2020 Total Stabilizer Femoral [place] FDA Start: 05-12-2020 Total Stabilizer Tibial Insert FDA Start: 05-12-2020 [place] Tibial Baseplate FDA Start: 05-12-2020 CEMENT,BONE W/TOBRAMYCIN STRYK FDA Start: 05-12-2020 CEMENT,BONE W/TOBRAMYCIN STRYK FDA Start: 05-12-2020 CEMENT,BONE W/TOBRAMYCIN STRYK FDA Start: 05-12-2020 Cemented Stem FDA Start: 05-12-2020 Cemented Stem FDA Start: 05-12-2020 Femoral Cone Augment FDA Star t: 05-12-2020 Femoral Distal Augment FDA Start: 05-12-2020 Femoral Distal Augment FDA Start: 05-12-2020 CEMENT,BONE W/TOBRAMYCIN STRYK FDA Start: 05-12-2020 Femoral Posterio r Augment FDA Start: 05-12-2020 Femoral Posterio r Augment FDA Start: 05-12-2020 PLUG,BONE LARGE FDA Start: 05-12-2020 PLUG,BONE LARGE FDA Start: 05-12-2020 Tibial Symm Cone Augment FDA Start: 05-12-2020 Total Stabilizer Femoral [place] FDA Start: 05-12-2020 Total Stabilizer Tibial Insert FDA Start: 05-12-2020 [place] Tibial Baseplate FDA Start: 05-12-2020 CEMENT,BONE W/TOBRAMYCIN STRYK FDA Start: 05-12-2020 CEMENT,BONE W/TOBRAMYCIN STRYK FDA Start: 05-12-2020 CEMENT,BONE W/TOBRAMYCIN STRYK FDA Start: 05-12-2020 Cemented Stem FDA Start: 05-12-2020 Cemented Stem FDA Start: 05-12-2020 Femoral Cone Augment FDA Star t: 05-12-2020 Femoral Distal Augment FDA Start: 05-12-2020 Femoral Distal Augment FDA Start: 05-12-2020 CEMENT,BONE W/TOBRAMYCIN STRYK FDA Start: 05-12-2020 Femoral Posterio r Augment FDA Start: 05-12-2020 Femoral Posterio r Augment FDA Start: 05-12-2020 PLUG,BONE LARGE FDA Start: 05-12-2020 PLUG,BONE LARGE FDA Start: 05-12-2020 Tibial Symm Cone Augment FDA Start: 05-12-2020 Total Stabilizer Femoral [place] FDA Start: 05-12-2020 Total Stabilizer Tibial Insert FDA Start: 05-12-2020 [place] Tibial Baseplate FDA Start: 05-12-2020 CEMENT,BONE W/TOBRAMYCIN STRYK FDA Start: 05-12-2020 CEMENT,BONE W/TOBRAMYCIN STRYK FDA Start: 05-12-2020 CEMENT,BONE W/TOBRAMYCIN STRYK FDA Start: 05-12-2020 Cemented Stem FDA Start: 05-12-2020 Cemented Stem FDA Start: 05-12-2020 Femoral Cone Augment FDA Star t: 05-12-2020 Femoral Distal Augment FDA Start: 05-12-2020 Femoral Distal Augment FDA Start: 05-12-2020 CEMENT,BONE W/TOBRAMYCIN STRYK FDA Start: 05-12-2020 Femoral Posterio r Augment FDA Start: 05-12-2020 Femoral Posterio r Augment FDA Start: 05-12-2020 PLUG,BONE LARGE FDA Start: 05-12-2020 PLUG,BONE LARGE FDA Start: 05-12-2020 Tibial Symm Cone Augment FDA Start: 05-12-2020 Total Stabilizer Femoral [place] FDA Start: 05-12-2020 Total Stabilizer Tibial Insert FDA Start: 05-12-2020 [place] Tibial Baseplate FDA Start: 05-12-2020 CEMENT,BONE W/TOBRAMYCIN STRYK FDA Start: 05-12-2020 CEMENT,BONE W/TOBRAMYCIN STRYK FDA Start: 05-12-2020 CEMENT,BONE W/TOBRAMYCIN STRYK FDA Start: 05-12-2020 Cemented Stem FDA Start: 05-12-2020 Cemented Stem FDA Start: 05-12-2020 Femoral Cone Augment FDA Star t: 05-12-2020 Femoral Distal Augment FDA Start: 05-12-2020 Femoral Distal Augment FDA Start: 05-12-2020 CEMENT,BONE W/TOBRAMYCIN STRYK FDA Start: 05-12-2020 Femoral Posterio r Augment FDA Start: 05-12-2020 Femoral Posterio r Augment FDA Start: 05-12-2020 PLUG,BONE LARGE FDA Start: 05-12-2020 PLUG,BONE LARGE FDA Start: 05-12-2020 Tibial Symm Cone Augment FDA Start: 05-12-2020 Total Stabilizer Femoral [place] FDA Start: 05-12-2020 Total Stabilizer Tibial Insert FDA Start: 05-12-2020 [place] Tibial Baseplate FDA Start: 05-12-2020 CEMENT,BONE W/TOBRAMYCIN STRYK FDA Start: 05-12-2020 CEMENT,BONE W/TOBRAMYCIN STRYK FDA Start: 05-12-2020 CEMENT,BONE W/TOBRAMYCIN STRYK FDA Start: 05-12-2020 Cemented Stem FDA Start: 05-12-2020 Cemented Stem FDA Start: 05-12-2020 Femoral Cone Augment FDA Star t: 05-12-2020 Femoral Distal Augment FDA Start: 05-12-2020 Femoral Distal Augment FDA Start: 05-12-2020 CEMENT,BONE W/TOBRAMYCIN STRYK FDA Start: 05-12-2020 Femoral Posterio r Augment FDA Start: 05-12-2020 Femoral Posterio r Augment FDA Start: 05-12-2020 PLUG,BONE LARGE FDA Start: 05-12-2020 PLUG,BONE LARGE FDA Start: 05-12-2020 Tibial Symm Cone Augment FDA Start: 05-12-2020 Total Stabilizer Femoral [place] FDA Start: 05-12-2020 Total Stabilizer Tibial Insert FDA Start: 05-12-2020 [place] Tibial Baseplate FDA Start: 05-12-2020 CEMENT,BONE W/TOBRAMYCIN STRYK FDA Start: 05-12-2020 CEMENT,BONE W/TOBRAMYCIN STRYK FDA Start: 05-12-2020 CEMENT,BONE W/TOBRAMYCIN STRYK FDA Start: 05-12-2020 Cemented Stem FDA Start: 05-12-2020 Cemented Stem FDA Start: 05-12-2020 Femoral Cone Augment FDA Star t: 05-12-2020 Femoral Distal Augment FDA Start: 05-12-2020 Femoral Distal Augment FDA Start: 05-12-2020 CEMENT,BONE W/TOBRAMYCIN STRYK FDA Start: 05-12-2020 Femoral Posterio r Augment FDA Start: 05-12-2020 Femoral Posterio r Augment FDA Start: 05-12-2020 PLUG,BONE LARGE FDA Start: 05-12-2020 PLUG,BONE LARGE FDA Start: 05-12-2020 Tibial Symm Cone Augment FDA Start: 05-12-2020 Total Stabilizer Femoral [place] FDA Start: 05-12-2020 Total Stabilizer Tibial Insert FDA Start: 05-12-2020 [place] Tibial Baseplate FDA Start: 05-12-2020 CEMENT,BONE W/TOBRAMYCIN STRYK FDA Start: 05-12-2020 CEMENT,BONE W/TOBRAMYCIN STRYK FDA Start: 05-12-2020 CEMENT,BONE W/TOBRAMYCIN STRYK FDA Start: 05-12-2020 Cemented Stem FDA Start: 05-12-2020 Cemented Stem FDA Start: 05-12-2020 Femoral Cone Augment FDA Star t: 05-12-2020 Femoral Distal Augment FDA Start: 05-12-2020 Femoral Distal Augment FDA Start: 05-12-2020 CEMENT,BONE W/TOBRAMYCIN STRYK FDA Start: 05-12-2020 Femoral Posterio r Augment FDA Start: 05-12-2020 Femoral Posterio r Augment FDA Start: 05-12-2020 PLUG,BONE LARGE FDA Start: 05-12-2020 PLUG,BONE LARGE FDA Start: 05-12-2020 Tibial Symm Cone Augment FDA Start: 05-12-2020 Total Stabilizer Femoral [place] FDA Start: 05-12-2020 Total Stabilizer Tibial Insert FDA Start: 05-12-2020 [place] Tibial Baseplate FDA Start: 05-12-2020 CEMENT,BONE W/TOBRAMYCIN STRYK FDA Start: 05-12-2020 CEMENT,BONE W/TOBRAMYCIN STRYK FDA Start: 05-12-2020 CEMENT,BONE W/TOBRAMYCIN STRYK FDA Start: 05-12-2020 Cemented Stem FDA Start: 05-12-2020 Cemented Stem FDA Start: 05-12-2020 Femoral Cone Augment FDA Star t: 05-12-2020 Femoral Distal Augment FDA Start: 05-12-2020 Femoral Distal Augment FDA Start: 05-12-2020 CEMENT,BONE W/TOBRAMYCIN STRYK FDA Start: 05-12-2020 Femoral Posterio r Augment FDA Start: 05-12-2020 Femoral Posterio r Augment FDA Start: 05-12-2020 PLUG,BONE LARGE FDA Start: 05-12-2020 PLUG,BONE LARGE FDA Start: 05-12-2020 Tibial Symm Cone Augment FDA Start: 05-12-2020 Total Stabilizer Femoral [place] FDA Start: 05-12-2020 Total Stabilizer Tibial Insert FDA Start: 05-12-2020 [place] Tibial Baseplate FDA Start: 05-12-2020 CEMENT,BONE W/TOBRAMYCIN STRYK FDA Start: 05-12-2020 CEMENT,BONE W/TOBRAMYCIN STRYK FDA Start: 05-12-2020 CEMENT,BONE W/TOBRAMYCIN STRYK FDA Start: 05-12-2020 Cemented Stem FDA Start: 05-12-2020 Cemented Stem FDA Start: 05-12-2020 Femoral Cone Augment FDA Star t: 05-12-2020 Femoral Distal Augment FDA Start: 05-12-2020 Femoral Distal Augment FDA Start: 05-12-2020 CEMENT,BONE W/TOBRAMYCIN STRYK FDA Start: 05-12-2020 Femoral Posterio r Augment FDA Start: 05-12-2020 Femoral Posterio r Augment FDA Start: 05-12-2020 PLUG,BONE LARGE FDA Start: 05-12-2020 PLUG,BONE LARGE FDA Start: 05-12-2020 Tibial Symm Cone Augment FDA Start: 05-12-2020 Total Stabilizer Femoral [place] FDA Start: 05-12-2020 Total Stabilizer Tibial Insert FDA Start: 05-12-2020 [place] Tibial Baseplate FDA Start: 05-12-2020 CEMENT,BONE W/TOBRAMYCIN STRYK FDA Start: 05-12-2020 CEMENT,BONE W/TOBRAMYCIN STRYK FDA Start: 05-12-2020 CEMENT,BONE W/TOBRAMYCIN STRYK FDA Start: 05-12-2020 Cemented Stem FDA Start: 05-12-2020 Cemented Stem FDA Start: 05-12-2020 Femoral Cone Augment FDA Star t: 05-12-2020 Femoral Distal Augment FDA Start: 05-12-2020 Femoral Distal Augment FDA Start: 05-12-2020 CEMENT,BONE W/TOBRAMYCIN STRYK FDA Start: 05-12-2020 Femoral Posterio r Augment FDA Start: 05-12-2020 Femoral Posterio r Augment FDA Start: 05-12-2020 PLUG,BONE LARGE FDA Start: 05-12-2020 PLUG,BONE LARGE FDA Start: 05-12-2020 Tibial Symm Cone Augment FDA Start: 05-12-2020 Total Stabilizer Femoral [place] FDA Start: 05-12-2020 Total Stabilizer Tibial Insert FDA Start: 05-12-2020 [place] Tibial Baseplate FDA Start: 05-12-2020 CEMENT,BONE W/TOBRAMYCIN STRYK FDA Start: 05-12-2020 CEMENT,BONE W/TOBRAMYCIN STRYK FDA Start: 05-12-2020 CEMENT,BONE W/TOBRAMYCIN STRYK FDA Start: 05-12-2020 Cemented Stem FDA Start: 05-12-2020 Cemented Stem FDA Start: 05-12-2020 Femoral Cone Augment FDA Star t: 05-12-2020 Femoral Distal Augment FDA Start: 05-12-2020 Femoral Distal Augment FDA Start: 05-12-2020 CEMENT,BONE W/TOBRAMYCIN STRYK FDA Start: 05-12-2020 Femoral Posterio r Augment FDA Start: 05-12-2020 Femoral Posterio r Augment FDA Start: 05-12-2020 PLUG,BONE LARGE FDA Start: 05-12-2020 PLUG,BONE LARGE FDA Start: 05-12-2020 Tibial Symm Cone Augment FDA Start: 05-12-2020 Total Stabilizer Femoral [place] FDA Start: 05-12-2020 Total Stabilizer Tibial Insert FDA Start: 05-12-2020 [place] Tibial Baseplate FDA Start: 05-12-2020 CEMENT,BONE W/TOBRAMYCIN STRYK FDA Start: 05-12-2020 CEMENT,BONE W/TOBRAMYCIN STRYK FDA Start: 05-12-2020 CEMENT,BONE W/TOBRAMYCIN STRYK FDA Start: 05-12-2020 Cemented Stem FDA Start: 05-12-2020 Cemented Stem FDA Start: 05-12-2020 Femoral Cone Augment FDA Star t: 05-12-2020 Femoral Distal Augment FDA Start: 05-12-2020 Femoral Distal Augment FDA Start: 05-12-2020 CEMENT,BONE W/TOBRAMYCIN STRYK FDA Start: 05-12-2020 Femoral Posterio r Augment FDA Start: 05-12-2020 Femoral Posterio r Augment FDA Start: 05-12-2020 PLUG,BONE LARGE FDA Start: 05-12-2020 PLUG,BONE LARGE FDA Start: 05-12-2020 Tibial Symm Cone Augment FDA Start: 05-12-2020 Total Stabilizer Femoral [place] FDA Start: 05-12-2020 Total Stabilizer Tibial Insert FDA Start: 05-12-2020 [place] Tibial Baseplate FDA Start: 05-12-2020 CEMENT,BONE W/TOBRAMYCIN STRYK FDA Start: 05-12-2020 CEMENT,BONE W/TOBRAMYCIN STRYK FDA Start: 05-12-2020 CEMENT,BONE W/TOBRAMYCIN STRYK FDA Start: 05-12-2020 Cemented Stem FDA Start: 05-12-2020 Cemented Stem FDA Start: 05-12-2020 Femoral Cone Augment FDA Star t: 05-12-2020 Femoral Distal Augment FDA Start: 05-12-2020 Femoral Distal Augment FDA Start: 05-12-2020 CEMENT,BONE W/TOBRAMYCIN STRYK FDA Start: 05-12-2020 Femoral Posterio r Augment FDA Start: 05-12-2020 Femoral Posterio r Augment FDA Start: 05-12-2020 PLUG,BONE LARGE FDA Start: 05-12-2020 PLUG,BONE LARGE FDA Start: 05-12-2020 Tibial Symm Cone Augment FDA Start: 05-12-2020 Total Stabilizer Femoral [place] FDA Start: 05-12-2020 Total Stabilizer Tibial Insert FDA Start: 05-12-2020 [place] Tibial Baseplate FDA Start: 05-12-2020 CEMENT,BONE W/TOBRAMYCIN STRYK FDA Start: 05-12-2020 CEMENT,BONE W/TOBRAMYCIN STRYK FDA Start: 05-12-2020 CEMENT,BONE W/TOBRAMYCIN STRYK FDA Start: 05-12-2020 Cemented Stem FDA Start: 05-12-2020 Cemented Stem FDA Start: 05-12-2020 Femoral Cone Augment FDA Star t: 05-12-2020 Femoral Distal Augment FDA Start: 05-12-2020 Femoral Distal Augment FDA Start: 05-12-2020 CEMENT,BONE W/TOBRAMYCIN STRYK FDA Start: 05-12-2020 Femoral Posterio r Augment FDA Start: 05-12-2020 Femoral Posterio r Augment FDA Start: 05-12-2020 PLUG,BONE LARGE FDA Start: 05-12-2020 PLUG,BONE LARGE FDA Start: 05-12-2020 Tibial Symm Cone Augment FDA Start: 05-12-2020 Total Stabilizer Femoral [place] FDA Start: 05-12-2020 Total Stabilizer Tibial Insert FDA Start: 05-12-2020 [place] Tibial Baseplate FDA Start: 05-12-2020 CEMENT,BONE W/TOBRAMYCIN STRYK FDA Start: 05-12-2020 CEMENT,BONE W/TOBRAMYCIN STRYK FDA Start: 05-12-2020 CEMENT,BONE W/TOBRAMYCIN STRYK FDA Start: 05-12-2020 Cemented Stem FDA Start: 05-12-2020 Cemented Stem FDA Start: 05-12-2020 Femoral Cone Augment FDA Star t: 05-12-2020 Femoral Distal Augment FDA Start: 05-12-2020 Femoral Distal Augment FDA Start: 05-12-2020 CEMENT,BONE W/TOBRAMYCIN STRYK FDA Start: 05-12-2020 Femoral Posterio r Augment FDA Start: 05-12-2020 Femoral Posterio r Augment FDA Start: 05-12-2020 PLUG,BONE LARGE FDA Start: 05-12-2020 PLUG,BONE LARGE FDA Start: 05-12-2020 Tibial Symm Cone Augment FDA Start: 05-12-2020 Total Stabilizer Femoral [place] FDA Start: 05-12-2020 Total Stabilizer Tibial Insert FDA Start: 05-12-2020 [place] Tibial Baseplate FDA Start: 05-12-2020 CEMENT,BONE W/TOBRAMYCIN STRYK FDA Start: 05-12-2020 CEMENT,BONE W/TOBRAMYCIN STRYK FDA Start: 05-12-2020 CEMENT,BONE W/TOBRAMYCIN STRYK FDA Start: 05-12-2020 Cemented Stem FDA Start: 05-12-2020 Cemented Stem FDA Start: 05-12-2020 Femoral Cone Augment FDA Star t: 05-12-2020 Femoral Distal Augment FDA Start: 05-12-2020 Femoral Distal Augment FDA Start: 05-12-2020 CEMENT,BONE W/TOBRAMYCIN STRYK FDA Start: 05-12-2020 Femoral Posterio r Augment FDA Start: 05-12-2020 Femoral Posterio r Augment FDA Start: 05-12-2020 PLUG,BONE LARGE FDA Start: 05-12-2020 PLUG,BONE LARGE FDA Start: 05-12-2020 Tibial Symm Cone Augment FDA Start: 05-12-2020 Total Stabilizer Femoral [place] FDA Start: 05-12-2020 Total Stabilizer Tibial Insert FDA Start: 05-12-2020 [place] Tibial Baseplate FDA Start: 05-12-2020 CEMENT,BONE W/TOBRAMYCIN STRYK FDA Start: 05-12-2020 CEMENT,BONE W/TOBRAMYCIN STRYK FDA Start: 05-12-2020 CEMENT,BONE W/TOBRAMYCIN STRYK FDA Start: 05-12-2020 Cemented Stem FDA Start: 05-12-2020 Cemented Stem FDA Start: 05-12-2020 Femoral Cone Augment FDA Star t: 05-12-2020 Femoral Distal Augment FDA Start: 05-12-2020 Femoral Distal Augment FDA Start: 05-12-2020 CEMENT,BONE W/TOBRAMYCIN STRYK FDA Start: 05-12-2020 Femoral Posterio r Augment FDA Start: 05-12-2020 Femoral Posterio r Augment FDA Start: 05-12-2020 PLUG,BONE LARGE FDA Start: 05-12-2020 PLUG,BONE LARGE FDA Start: 05-12-2020 Tibial Symm Cone Augment FDA Start: 05-12-2020 Total Stabilizer Femoral [place] FDA Start: 05-12-2020 Total Stabilizer Tibial Insert FDA Start: 05-12-2020 [place] Tibial Baseplate FDA Start: 05-12-2020 CEMENT,BONE W/TOBRAMYCIN STRYK FDA Start: 05-12-2020 CEMENT,BONE W/TOBRAMYCIN STRYK FDA Start: 05-12-2020 CEMENT,BONE W/TOBRAMYCIN STRYK FDA Start: 05-12-2020 Cemented Stem FDA Start: 05-12-2020 Cemented Stem FDA Start: 05-12-2020 Femoral Cone Augment FDA Star t: 05-12-2020 Femoral Distal Augment FDA Start: 05-12-2020 Femoral Distal Augment FDA Start: 05-12-2020 CEMENT,BONE W/TOBRAMYCIN STRYK FDA Start: 05-12-2020 Femoral Posterio r Augment FDA Start: 05-12-2020 Femoral Posterio r Augment FDA Start: 05-12-2020 PLUG,BONE LARGE FDA Start: 05-12-2020 PLUG,BONE LARGE FDA Start: 05-12-2020 Tibial Symm Cone Augment FDA Start: 05-12-2020 Total Stabilizer Femoral [place] FDA Start: 05-12-2020 Total Stabilizer Tibial Insert FDA Start: 05-12-2020 [place] Tibial Baseplate FDA Start: 05-12-2020 CEMENT,BONE W/TOBRAMYCIN STRYK FDA Start: 05-12-2020 CEMENT,BONE W/TOBRAMYCIN STRYK FDA Start: 05-12-2020 CEMENT,BONE W/TOBRAMYCIN STRYK FDA Start: 05-12-2020 Cemented Stem FDA Start: 05-12-2020 Cemented Stem FDA Start: 05-12-2020 Femoral Cone Augment FDA Star t: 05-12-2020 Femoral Distal Augment FDA Start: 05-12-2020 Femoral Distal Augment FDA Start: 05-12-2020 CEMENT,BONE W/TOBRAMYCIN STRYK FDA Start: 05-12-2020 Femoral Posterio r Augment FDA Start: 05-12-2020 Femoral Posterio r Augment FDA Start: 05-12-2020 PLUG,BONE LARGE FDA Start: 05-12-2020 PLUG,BONE LARGE FDA Start: 05-12-2020 Tibial Symm Cone Augment FDA Start: 05-12-2020 Total Stabilizer Femoral [place] FDA Start: 05-12-2020 Total Stabilizer Tibial Insert FDA Start: 05-12-2020 [place] Tibial Baseplate FDA Start: 05-12-2020 CEMENT,BONE W/TOBRAMYCIN STRYK FDA Start: 05-12-2020 CEMENT,BONE W/TOBRAMYCIN STRYK FDA Start: 05-12-2020 CEMENT,BONE W/TOBRAMYCIN STRYK FDA Start: 05-12-2020 Cemented Stem FDA Start: 05-12-2020 Cemented Stem FDA Start: 05-12-2020 Femoral Cone Augment FDA Star t: 05-12-2020 Femoral Distal Augment FDA Start: 05-12-2020 Femoral Distal Augment FDA Start: 05-12-2020 CEMENT,BONE W/TOBRAMYCIN STRYK FDA Start: 05-12-2020 Femoral Posterio r Augment FDA Start: 05-12-2020 Femoral Posterio r Augment FDA Start: 05-12-2020 PLUG,BONE LARGE FDA Start: 05-12-2020 PLUG,BONE LARGE FDA Start: 05-12-2020 Tibial Symm Cone Augment FDA Start: 05-12-2020 Total Stabilizer Femoral [place] FDA Start: 05-12-2020 Total Stabilizer Tibial Insert FDA Start: 05-12-2020 [place] Tibial Baseplate FDA Start: 05-12-2020 CEMENT,BONE W/TOBRAMYCIN STRYK FDA Start: 05-12-2020 CEMENT,BONE W/TOBRAMYCIN STRYK FDA Start: 05-12-2020 CEMENT,BONE W/TOBRAMYCIN STRYK FDA Start: 05-12-2020 Cemented Stem FDA Start: 05-12-2020 Cemented Stem FDA Start: 05-12-2020 Femoral Cone Augment FDA Star t: 05-12-2020 Femoral Distal Augment FDA Start: 05-12-2020 Femoral Distal Augment FDA Start: 05-12-2020 CEMENT,BONE W/TOBRAMYCIN STRYK FDA Start: 05-12-2020 Femoral Posterio r Augment FDA Start: 05-12-2020 Femoral Posterio r Augment FDA Start: 05-12-2020 PLUG,BONE LARGE FDA Start: 05-12-2020 PLUG,BONE LARGE FDA Start: 05-12-2020 Tibial Symm Cone Augment FDA Start: 05-12-2020 Total Stabilizer Femoral [place] FDA Start: 05-12-2020 Total Stabilizer Tibial Insert FDA Start: 05-12-2020 [place] Tibial Baseplate FDA Start: 05-12-2020 CEMENT,BONE W/TOBRAMYCIN STRYK FDA Start: 05-12-2020 CEMENT,BONE W/TOBRAMYCIN STRYK FDA Start: 05-12-2020 CEMENT,BONE W/TOBRAMYCIN STRYK FDA Start: 05-12-2020 Cemented Stem FDA Start: 05-12-2020 Cemented Stem FDA Start: 05-12-2020 Femoral Cone Augment FDA Star t: 05-12-2020 Femoral Distal Augment FDA Start: 05-12-2020 Femoral Distal Augment FDA Start: 05-12-2020 CEMENT,BONE W/TOBRAMYCIN STRYK FDA Start: 05-12-2020 Femoral Posterio r Augment FDA Start: 05-12-2020 Femoral Posterio r Augment FDA Start: 05-12-2020 PLUG,BONE LARGE FDA Start: 05-12-2020 PLUG,BONE LARGE FDA Start: 05-12-2020 Tibial Symm Cone Augment FDA Start: 05-12-2020 Total Stabilizer Femoral [place] FDA Start: 05-12-2020 Total Stabilizer Tibial Insert FDA Start: 05-12-2020 [place] Tibial Baseplate FDA Start: 05-12-2020 CEMENT,BONE W/TOBRAMYCIN STRYK FDA Start: 05-12-2020 CEMENT,BONE W/TOBRAMYCIN STRYK FDA Start: 05-12-2020 CEMENT,BONE W/TOBRAMYCIN STRYK FDA Start: 05-12-2020 Cemented Stem FDA Start: 05-12-2020 Cemented Stem FDA Start: 05-12-2020 Femoral Cone Augment FDA Star t: 05-12-2020 Femoral Distal Augment FDA Start: 05-12-2020 Femoral Distal Augment FDA Start: 05-12-2020 CEMENT,BONE W/TOBRAMYCIN STRYK FDA Start: 05-12-2020 Femoral Posterio r Augment FDA Start: 05-12-2020 Femoral Posterio r Augment FDA Start: 05-12-2020 PLUG,BONE LARGE FDA Start: 05-12-2020 PLUG,BONE LARGE FDA Start: 05-12-2020 Tibial Symm Cone Augment FDA Start: 05-12-2020 Total Stabilizer Femoral [place] FDA Start: 05-12-2020 Total Stabilizer Tibial Insert FDA Start: 05-12-2020 [place] Tibial Baseplate FDA Start: 05-12-2020 CEMENT,BONE W/TOBRAMYCIN STRYK FDA Start: 05-12-2020 CEMENT,BONE W/TOBRAMYCIN STRYK FDA Start: 05-12-2020 CEMENT,BONE W/TOBRAMYCIN STRYK FDA Start: 05-12-2020 Cemented Stem FDA Start: 05-12-2020 Cemented Stem FDA Start: 05-12-2020 Femoral Cone Augment FDA Star t: 05-12-2020 Femoral Distal Augment FDA Start: 05-12-2020 Femoral Distal Augment FDA Start: 05-12-2020 CEMENT,BONE W/TOBRAMYCIN STRYK FDA Start: 05-12-2020 Femoral Posterio r Augment FDA Start: 05-12-2020 Femoral Posterio r Augment FDA Start: 05-12-2020 PLUG,BONE LARGE FDA Start: 05-12-2020 PLUG,BONE LARGE FDA Start: 05-12-2020 Tibial Symm Cone Augment FDA Start: 05-12-2020 Total Stabilizer Femoral [place] FDA Start: 05-12-2020 Total Stabilizer Tibial Insert FDA Start: 05-12-2020 [place] Tibial Baseplate FDA Start: 05-12-2020 CEMENT,BONE W/TOBRAMYCIN STRYK FDA Start: 05-12-2020 CEMENT,BONE W/TOBRAMYCIN STRYK FDA Start: 05-12-2020 CEMENT,BONE W/TOBRAMYCIN STRYK FDA Start: 05-12-2020 Cemented Stem FDA Start: 05-12-2020 Cemented Stem FDA Start: 05-12-2020 Femoral Cone Augment FDA Star t: 05-12-2020 Femoral Distal Augment FDA Start: 05-12-2020 Femoral Distal Augment FDA Start: 05-12-2020 CEMENT,BONE W/TOBRAMYCIN STRYK FDA Start: 05-12-2020 Femoral Posterio r Augment FDA Start: 05-12-2020 Femoral Posterio r Augment FDA Start: 05-12-2020 PLUG,BONE LARGE FDA Start: 05-12-2020 PLUG,BONE LARGE FDA Start: 05-12-2020 Tibial Symm Cone Augment FDA Start: 05-12-2020 Total Stabilizer Femoral [place] FDA Start: 05-12-2020 Total Stabilizer Tibial Insert FDA Start: 05-12-2020 [place] Tibial Baseplate FDA Start: 05-12-2020 CEMENT,BONE W/TOBRAMYCIN STRYK FDA Start: 05-12-2020 CEMENT,BONE W/TOBRAMYCIN STRYK FDA Start: 05-12-2020 CEMENT,BONE W/TOBRAMYCIN STRYK FDA Start: 05-12-2020 Cemented Stem FDA Start: 05-12-2020 Cemented Stem FDA Start: 05-12-2020 Femoral Cone Augment FDA Star t: 05-12-2020 Femoral Distal Augment FDA Start: 05-12-2020 Femoral Distal Augment FDA Start: 05-12-2020 CEMENT,BONE W/TOBRAMYCIN STRYK FDA Start: 05-12-2020 Femoral Posterio r Augment FDA Start: 05-12-2020 Femoral Posterio r Augment FDA Start: 05-12-2020 PLUG,BONE LARGE FDA Start: 05-12-2020 PLUG,BONE LARGE FDA Start: 05-12-2020 Tibial Symm Cone Augment FDA Start: 05-12-2020 Total Stabilizer Femoral [place] FDA Start: 05-12-2020 Total Stabilizer Tibial Insert FDA Start: 05-12-2020 [place] Tibial Baseplate FDA Start: 05-12-2020 CEMENT,BONE W/TOBRAMYCIN STRYK FDA Start: 05-12-2020 CEMENT,BONE W/TOBRAMYCIN STRYK FDA Start: 05-12-2020 CEMENT,BONE W/TOBRAMYCIN STRYK FDA Start: 05-12-2020 Cemented Stem FDA Start: 05-12-2020 Cemented Stem FDA Start: 05-12-2020 Femoral Cone Augment FDA Star t: 05-12-2020 Femoral Distal Augment FDA Start: 05-12-2020 Femoral Distal Augment FDA Start: 05-12-2020 CEMENT,BONE W/TOBRAMYCIN STRYK FDA Start: 05-12-2020 Femoral Posterio r Augment FDA Start: 05-12-2020 Femoral Posterio r Augment FDA Start: 05-12-2020 PLUG,BONE LARGE FDA Start: 05-12-2020 PLUG,BONE LARGE FDA Start: 05-12-2020 Tibial Symm Cone Augment FDA Start: 05-12-2020 Total Stabilizer Femoral [place] FDA Start: 05-12-2020 Total Stabilizer Tibial Insert FDA Start: 05-12-2020 [place] Tibial Baseplate FDA Start: 05-12-2020 CEMENT,BONE W/TOBRAMYCIN STRYK FDA Start: 05-12-2020 CEMENT,BONE W/TOBRAMYCIN STRYK FDA Start: 05-12-2020 CEMENT,BONE W/TOBRAMYCIN STRYK FDA Start: 05-12-2020 Cemented Stem FDA Start: 05-12-2020 Cemented Stem FDA Start: 05-12-2020 Femoral Cone Augment FDA Star t: 05-12-2020 Femoral Distal Augment FDA Start: 05-12-2020 Femoral Distal Augment FDA Start: 05-12-2020 CEMENT,BONE W/TOBRAMYCIN STRYK FDA Start: 05-12-2020 Femoral Posterio r Augment FDA Start: 05-12-2020 Femoral Posterio r Augment FDA Start: 05-12-2020 PLUG,BONE LARGE FDA Start: 05-12-2020 PLUG,BONE LARGE FDA Start: 05-12-2020 Tibial Symm Cone Augment FDA Start: 05-12-2020 Total Stabilizer Femoral [place] FDA Start: 05-12-2020 Total Stabilizer Tibial Insert FDA Start: 05-12-2020 [place] Tibial Baseplate FDA Start: 05-12-2020 CEMENT,BONE W/TOBRAMYCIN STRYK FDA Start: 05-12-2020 CEMENT,BONE W/TOBRAMYCIN STRYK FDA Start: 05-12-2020 CEMENT,BONE W/TOBRAMYCIN STRYK FDA Start: 05-12-2020 Cemented Stem FDA Start: 05-12-2020 Cemented Stem FDA Start: 05-12-2020 Femoral Cone Augment FDA Star t: 05-12-2020 Femoral Distal Augment FDA Start: 05-12-2020 Femoral Distal Augment FDA Start: 05-12-2020 CEMENT,BONE W/TOBRAMYCIN STRYK FDA Start: 05-12-2020 Femoral Posterio r Augment FDA Start: 05-12-2020 Femoral Posterio r Augment FDA Start: 05-12-2020 PLUG,BONE LARGE FDA Start: 05-12-2020 PLUG,BONE LARGE FDA Start: 05-12-2020 Tibial Symm Cone Augment FDA Start: 05-12-2020 Total Stabilizer Femoral [place] FDA Start: 05-12-2020 Total Stabilizer Tibial Insert FDA Start: 05-12-2020 [place] Tibial Baseplate FDA Start: 05-12-2020 CEMENT,BONE W/TOBRAMYCIN STRYK FDA Start: 05-12-2020 CEMENT,BONE W/TOBRAMYCIN STRYK FDA Start: 05-12-2020 CEMENT,BONE W/TOBRAMYCIN STRYK FDA Start: 05-12-2020 Cemented Stem FDA Start: 05-12-2020 Cemented Stem FDA Start: 05-12-2020 Femoral Cone Augment FDA Star t: 05-12-2020 Femoral Distal Augment FDA Start: 05-12-2020 Femoral Distal Augment FDA Start: 05-12-2020 CEMENT,BONE W/TOBRAMYCIN STRYK FDA Start: 05-12-2020 Femoral Posterio r Augment FDA Start: 05-12-2020 Femoral Posterio r Augment FDA Start: 05-12-2020 PLUG,BONE LARGE FDA Start: 05-12-2020 PLUG,BONE LARGE FDA Start: 05-12-2020 Tibial Symm Cone Augment FDA Start: 05-12-2020 Total Stabilizer Femoral [place] FDA Start: 05-12-2020 Total Stabilizer Tibial Insert FDA Start: 05-12-2020 [place] Tibial Baseplate FDA Start: 05-12-2020 CEMENT,BONE W/TOBRAMYCIN STRYK FDA Start: 05-12-2020 CEMENT,BONE W/TOBRAMYCIN STRYK FDA Start: 05-12-2020 CEMENT,BONE W/TOBRAMYCIN STRYK FDA Start: 05-12-2020 Cemented Stem FDA Start: 05-12-2020 Cemented Stem FDA Start: 05-12-2020 Femoral Cone Augment FDA Star t: 05-12-2020 Femoral Distal Augment FDA Start: 05-12-2020 Femoral Distal Augment FDA Start: 05-12-2020 CEMENT,BONE W/TOBRAMYCIN STRYK FDA Start: 05-12-2020 Femoral Posterio r Augment FDA Start: 05-12-2020 Femoral Posterio r Augment FDA Start: 05-12-2020 PLUG,BONE LARGE FDA Start: 05-12-2020 PLUG,BONE LARGE FDA Start: 05-12-2020 Tibial Symm Cone Augment FDA Start: 05-12-2020 Total Stabilizer Femoral [place] FDA Start: 05-12-2020 Total Stabilizer Tibial Insert FDA Start: 05-12-2020 [place] Tibial Baseplate FDA Start: 05-12-2020 CEMENT,BONE W/TOBRAMYCIN STRYK FDA Start: 05-12-2020 CEMENT,BONE W/TOBRAMYCIN STRYK FDA Start: 05-12-2020 CEMENT,BONE W/TOBRAMYCIN STRYK FDA Start: 05-12-2020 Cemented Stem FDA Start: 05-12-2020 Cemented Stem FDA Start: 05-12-2020 Femoral Cone Augment FDA Star t: 05-12-2020 Femoral Distal Augment FDA Start: 05-12-2020 Femoral Distal Augment FDA Start: 05-12-2020 CEMENT,BONE W/TOBRAMYCIN STRYK FDA Start: 05-12-2020 Femoral Posterio r Augment FDA Start: 05-12-2020 Femoral Posterio r Augment FDA Start: 05-12-2020 PLUG,BONE LARGE FDA Start: 05-12-2020 PLUG,BONE LARGE FDA Start: 05-12-2020 Tibial Symm Cone Augment FDA Start: 05-12-2020 Total Stabilizer Femoral [place] FDA Start: 05-12-2020 Total Stabilizer Tibial Insert FDA Start: 05-12-2020 [place] Tibial Baseplate FDA Start: 05-12-2020 CEMENT,BONE W/TOBRAMYCIN STRYK FDA Start: 05-12-2020 CEMENT,BONE W/TOBRAMYCIN STRYK FDA Start: 05-12-2020 CEMENT,BONE W/TOBRAMYCIN STRYK FDA Start: 05-12-2020 Cemented Stem FDA Start: 05-12-2020 Cemented Stem FDA Start: 05-12-2020 Femoral Cone Augment FDA Star t: 05-12-2020 Femoral Distal Augment FDA Start: 05-12-2020 Femoral Distal Augment FDA Start: 05-12-2020 CEMENT,BONE W/TOBRAMYCIN STRYK FDA Start: 05-12-2020 Femoral Posterio r Augment FDA Start: 05-12-2020 Femoral Posterio r Augment FDA Start: 05-12-2020 PLUG,BONE LARGE FDA Start: 05-12-2020 PLUG,BONE LARGE FDA Start: 05-12-2020 Tibial Symm Cone Augment FDA Start: 05-12-2020 Total Stabilizer Femoral [place] FDA Start: 05-12-2020 Total Stabilizer Tibial Insert FDA Start: 05-12-2020 [place] Tibial Baseplate FDA Start: 05-12-2020 CEMENT,BONE W/TOBRAMYCIN STRYK FDA Start: 05-12-2020 CEMENT,BONE W/TOBRAMYCIN STRYK FDA Start: 05-12-2020 CEMENT,BONE W/TOBRAMYCIN STRYK FDA Start: 05-12-2020 Cemented Stem FDA Start: 05-12-2020 Cemented Stem FDA Start: 05-12-2020 Femoral Cone Augment FDA Star t: 05-12-2020 Femoral Distal Augment FDA Start: 05-12-2020 Femoral Distal Augment FDA Start: 05-12-2020 CEMENT,BONE W/TOBRAMYCIN STRYK FDA Start: 05-12-2020 Femoral Posterio r Augment FDA Start: 05-12-2020 Femoral Posterio r Augment FDA Start: 05-12-2020 PLUG,BONE LARGE FDA Start: 05-12-2020 PLUG,BONE LARGE FDA Start: 05-12-2020 Tibial Symm Cone Augment FDA Start: 05-12-2020 Total Stabilizer Femoral [place] FDA Start: 05-12-2020 Total Stabilizer Tibial Insert FDA Start: 05-12-2020 [place] Tibial Baseplate FDA Start: 05-12-2020 CEMENT,BONE W/TOBRAMYCIN STRYK FDA Start: 05-12-2020 CEMENT,BONE W/TOBRAMYCIN STRYK FDA Start: 05-12-2020 CEMENT,BONE W/TOBRAMYCIN STRYK FDA Start: 05-12-2020 Cemented Stem FDA Start: 05-12-2020 Cemented Stem FDA Start: 05-12-2020 Femoral Cone Augment FDA Star t: 05-12-2020 Femoral Distal Augment FDA Start: 05-12-2020 Femoral Distal Augment FDA Start: 05-12-2020 CEMENT,BONE W/TOBRAMYCIN STRYK FDA Start: 05-12-2020 Femoral Posterio r Augment FDA Start: 05-12-2020 Femoral Posterio r Augment FDA Start: 05-12-2020 PLUG,BONE LARGE FDA Start: 05-12-2020 PLUG,BONE LARGE FDA Start: 05-12-2020 Tibial Symm Cone Augment FDA Start: 05-12-2020 Total Stabilizer Femoral [place] FDA Start: 05-12-2020 Total Stabilizer Tibial Insert FDA Start: 05-12-2020 [place] Tibial Baseplate FDA Start: 05-12-2020 CEMENT,BONE W/TOBRAMYCIN STRYK FDA Start: 05-12-2020 CEMENT,BONE W/TOBRAMYCIN STRYK FDA Start: 05-12-2020 CEMENT,BONE W/TOBRAMYCIN STRYK FDA Start: 05-12-2020 Cemented Stem FDA Start: 05-12-2020 Cemented Stem FDA Start: 05-12-2020 Femoral Cone Augment FDA Star t: 05-12-2020 Femoral Distal Augment FDA Start: 05-12-2020 Femoral Distal Augment FDA Start: 05-12-2020 CEMENT,BONE W/TOBRAMYCIN STRYK FDA Start: 05-12-2020 Femoral Posterio r Augment FDA Start: 05-12-2020 Femoral Posterio r Augment FDA Start: 05-12-2020 PLUG,BONE LARGE FDA Start: 05-12-2020 PLUG,BONE LARGE FDA Start: 05-12-2020 Tibial Symm Cone Augment FDA Start: 05-12-2020 Total Stabilizer Femoral [place] FDA Start: 05-12-2020 Total Stabilizer Tibial Insert FDA Start: 05-12-2020 [place] Tibial Baseplate FDA Start: 05-12-2020 CEMENT,BONE W/TOBRAMYCIN STRYK FDA Start: 05-12-2020 CEMENT,BONE W/TOBRAMYCIN STRYK FDA Start: 05-12-2020 CEMENT,BONE W/TOBRAMYCIN STRYK FDA Start: 05-12-2020 Cemented Stem FDA Start: 05-12-2020 Cemented Stem FDA Start: 05-12-2020 Femoral Cone Augment FDA Star t: 05-12-2020 Femoral Distal Augment FDA Start: 05-12-2020 Femoral Distal Augment FDA Start: 05-12-2020 CEMENT,BONE W/TOBRAMYCIN STRYK FDA Start: 05-12-2020 Femoral Posterio r Augment FDA Start: 05-12-2020 Femoral Posterio r Augment FDA Start: 05-12-2020 PLUG,BONE LARGE FDA Start: 05-12-2020 PLUG,BONE LARGE FDA Start: 05-12-2020 Tibial Symm Cone Augment FDA Start: 05-12-2020 Total Stabilizer Femoral [place] FDA Start: 05-12-2020 Total Stabilizer Tibial Insert FDA Start: 05-12-2020 [place] Tibial Baseplate FDA Start: 05-12-2020 CEMENT,BONE W/TOBRAMYCIN STRYK FDA Start: 05-12-2020 CEMENT,BONE W/TOBRAMYCIN STRYK FDA Start: 05-12-2020 CEMENT,BONE W/TOBRAMYCIN STRYK FDA Start: 05-12-2020 Cemented Stem FDA Start: 05-12-2020 Cemented Stem FDA Start: 05-12-2020 Femoral Cone Augment FDA Star t: 05-12-2020 Femoral Distal Augment FDA Start: 05-12-2020 Femoral Distal Augment FDA Start: 05-12-2020 CEMENT,BONE W/TOBRAMYCIN STRYK FDA Start: 05-12-2020 Femoral Posterio r Augment FDA Start: 05-12-2020 Femoral Posterio r Augment FDA Start: 05-12-2020 PLUG,BONE LARGE FDA Start: 05-12-2020 PLUG,BONE LARGE FDA Start: 05-12-2020 Tibial Symm Cone Augment FDA Start: 05-12-2020 Total Stabilizer Femoral [place] FDA Start: 05-12-2020 Total Stabilizer Tibial Insert FDA Start: 05-12-2020 [place] Tibial Baseplate FDA Start: 05-12-2020 CEMENT,BONE W/TOBRAMYCIN STRYK FDA Start: 05-12-2020 CEMENT,BONE W/TOBRAMYCIN STRYK FDA Start: 05-12-2020 CEMENT,BONE W/TOBRAMYCIN STRYK FDA Start: 05-12-2020 Cemented Stem FDA Start: 05-12-2020 Cemented Stem FDA Start: 05-12-2020 Femoral Cone Augment FDA Star t: 05-12-2020 Femoral Distal Augment FDA Start: 05-12-2020 Femoral Distal Augment FDA Start: 05-12-2020 CEMENT,BONE W/TOBRAMYCIN STRYK FDA Start: 05-12-2020 Femoral Posterio r Augment FDA Start: 05-12-2020 Femoral Posterio r Augment FDA Start: 05-12-2020 PLUG,BONE LARGE FDA Start: 05-12-2020 PLUG,BONE LARGE FDA Start: 05-12-2020 Tibial Symm Cone Augment FDA Start: 05-12-2020 Total Stabilizer Femoral [place] FDA Start: 05-12-2020 Total Stabilizer Tibial Insert FDA Start: 05-12-2020 [place] Tibial Baseplate FDA Start: 05-12-2020 CEMENT,BONE W/TOBRAMYCIN STRYK FDA Start: 05-12-2020 CEMENT,BONE W/TOBRAMYCIN STRYK FDA Start: 05-12-2020 CEMENT,BONE W/TOBRAMYCIN STRYK FDA Start: 05-12-2020 Cemented Stem FDA Start: 05-12-2020 Cemented Stem FDA Start: 05-12-2020 Femoral Cone Augment FDA Star t: 05-12-2020 Femoral Distal Augment FDA Start: 05-12-2020 Femoral Distal Augment FDA Start: 05-12-2020 CEMENT,BONE W/TOBRAMYCIN STRYK FDA Start: 05-12-2020 Femoral Posterio r Augment FDA Start: 05-12-2020 Femoral Posterio r Augment FDA Start: 05-12-2020 PLUG,BONE LARGE FDA Start: 05-12-2020 PLUG,BONE LARGE FDA Start: 05-12-2020 Tibial Symm Cone Augment FDA Start: 05-12-2020 Total Stabilizer Femoral [place] FDA Start: 05-12-2020 Total Stabilizer Tibial Insert FDA Start: 05-12-2020 [place] Tibial Baseplate FDA Start: 05-12-2020 CEMENT,BONE W/TOBRAMYCIN STRYK FDA Start: 05-12-2020 CEMENT,BONE W/TOBRAMYCIN STRYK FDA Start: 05-12-2020 CEMENT,BONE W/TOBRAMYCIN STRYK FDA Start: 05-12-2020 Cemented Stem FDA Start: 05-12-2020 Cemented Stem FDA Start: 05-12-2020 Femoral Cone Augment FDA Star t: 05-12-2020 Femoral Distal Augment FDA Start: 05-12-2020 Femoral Distal Augment FDA Start: 05-12-2020 CEMENT,BONE W/TOBRAMYCIN STRYK FDA Start: 05-12-2020 Femoral Posterio r Augment FDA Start: 05-12-2020 Femoral Posterio r Augment FDA Start: 05-12-2020 PLUG,BONE LARGE FDA Start: 05-12-2020 PLUG,BONE LARGE FDA Start: 05-12-2020 Tibial Symm Cone Augment FDA Start: 05-12-2020 Total Stabilizer Femoral [place] FDA Start: 05-12-2020 Total Stabilizer Tibial Insert FDA Start: 05-12-2020 [place] Tibial Baseplate FDA Start: 05-12-2020 CEMENT,BONE W/TOBRAMYCIN STRYK FDA Start: 05-12-2020 CEMENT,BONE W/TOBRAMYCIN STRYK FDA Start: 05-12-2020 CEMENT,BONE W/TOBRAMYCIN STRYK FDA Start: 05-12-2020 Cemented Stem FDA Start: 05-12-2020 Cemented Stem FDA Start: 05-12-2020 Femoral Cone Augment FDA Star t: 05-12-2020 Femoral Distal Augment FDA Start: 05-12-2020 Femoral Distal Augment FDA Start: 05-12-2020 CEMENT,BONE W/TOBRAMYCIN STRYK FDA Start: 05-12-2020 Femoral Posterio r Augment FDA Start: 05-12-2020 Femoral Posterio r Augment FDA Start: 05-12-2020 PLUG,BONE LARGE FDA Start: 05-12-2020 PLUG,BONE LARGE FDA Start: 05-12-2020 Tibial Symm Cone Augment FDA Start: 05-12-2020 Total Stabilizer Femoral [place] FDA Start: 05-12-2020 Total Stabilizer Tibial Insert FDA Start: 05-12-2020 [place] Tibial Baseplate FDA Start: 05-12-2020 CEMENT,BONE W/TOBRAMYCIN STRYK FDA Start: 05-12-2020 CEMENT,BONE W/TOBRAMYCIN STRYK FDA Start: 05-12-2020 CEMENT,BONE W/TOBRAMYCIN STRYK FDA Start: 05-12-2020 Cemented Stem FDA Start: 05-12-2020 Cemented Stem FDA Start: 05-12-2020 Femoral Cone Augment FDA Star t: 05-12-2020 Femoral Distal Augment FDA Start: 05-12-2020 Femoral Distal Augment FDA Start: 05-12-2020 CEMENT,BONE W/TOBRAMYCIN STRYK FDA Start: 05-12-2020 Femoral Posterio r Augment FDA Start: 05-12-2020 Femoral Posterio r Augment FDA Start: 05-12-2020 PLUG,BONE LARGE FDA Start: 05-12-2020 PLUG,BONE LARGE FDA Start: 05-12-2020 Tibial Symm Cone Augment FDA Start: 05-12-2020 Total Stabilizer Femoral [place] FDA Start: 05-12-2020 Total Stabilizer Tibial Insert FDA Start: 05-12-2020 [place] Tibial Baseplate FDA Start: 05-12-2020 CEMENT,BONE W/TOBRAMYCIN STRYK FDA Start: 05-12-2020 CEMENT,BONE W/TOBRAMYCIN STRYK FDA Start: 05-12-2020 CEMENT,BONE W/TOBRAMYCIN STRYK FDA Start: 05-12-2020 Cemented Stem FDA Start: 05-12-2020 Cemented Stem FDA Start: 05-12-2020 Femoral Cone Augment FDA Star t: 05-12-2020 Femoral Distal Augment FDA Start: 05-12-2020 Femoral Distal Augment FDA Start: 05-12-2020 CEMENT,BONE W/TOBRAMYCIN STRYK FDA Start: 05-12-2020 Femoral Posterio r Augment FDA Start: 05-12-2020 Femoral Posterio r Augment FDA Start: 05-12-2020 PLUG,BONE LARGE FDA Start: 05-12-2020 PLUG,BONE LARGE FDA Start: 05-12-2020 Tibial Symm Cone Augment FDA Start: 05-12-2020 Total Stabilizer Femoral [place] FDA Start: 05-12-2020 Total Stabilizer Tibial Insert FDA Start: 05-12-2020 [place] Tibial Baseplate FDA Start: 05-12-2020 CEMENT,BONE W/TOBRAMYCIN STRYK FDA Start: 05-12-2020 CEMENT,BONE W/TOBRAMYCIN STRYK FDA Start: 05-12-2020 CEMENT,BONE W/TOBRAMYCIN STRYK FDA Start: 05-12-2020 Cemented Stem FDA Start: 05-12-2020 Cemented Stem FDA Start: 05-12-2020 Femoral Cone Augment FDA Star t: 05-12-2020 Femoral Distal Augment FDA Start: 05-12-2020 Femoral Distal Augment FDA Start: 05-12-2020 CEMENT,BONE W/TOBRAMYCIN STRYK FDA Start: 05-12-2020 Femoral Posterio r Augment FDA Start: 05-12-2020 Femoral Posterio r Augment FDA Start: 05-12-2020 PLUG,BONE LARGE FDA Start: 05-12-2020 PLUG,BONE LARGE FDA Start: 05-12-2020 Tibial Symm Cone Augment FDA Start: 05-12-2020 Total Stabilizer Femoral [place] FDA Start: 05-12-2020 Total Stabilizer Tibial Insert FDA Start: 05-12-2020 [place] Tibial Baseplate FDA Start: 05-12-2020 CEMENT,BONE W/TOBRAMYCIN STRYK FDA Start: 05-12-2020 CEMENT,BONE W/TOBRAMYCIN STRYK FDA Start: 05-12-2020 CEMENT,BONE W/TOBRAMYCIN STRYK FDA Start: 05-12-2020 Cemented Stem FDA Start: 05-12-2020 Cemented Stem FDA Start: 05-12-2020 Femoral Cone Augment FDA Star t: 05-12-2020 Femoral Distal Augment FDA Start: 05-12-2020 Femoral Distal Augment FDA Start: 05-12-2020 CEMENT,BONE W/TOBRAMYCIN STRYK FDA Start: 05-12-2020 Femoral Posterio r Augment FDA Start: 05-12-2020 Femoral Posterio r Augment FDA Start: 05-12-2020 PLUG,BONE LARGE FDA Start: 05-12-2020 PLUG,BONE LARGE FDA Start: 05-12-2020 Tibial Symm Cone Augment FDA Start: 05-12-2020 Total Stabilizer Femoral [place] FDA Start: 05-12-2020 Total Stabilizer Tibial Insert FDA Start: 05-12-2020 [place] Tibial Baseplate FDA Start: 05-12-2020 CEMENT,BONE W/TOBRAMYCIN STRYK FDA Start: 05-12-2020 CEMENT,BONE W/TOBRAMYCIN STRYK FDA Start: 05-12-2020 CEMENT,BONE W/TOBRAMYCIN STRYK FDA Start: 05-12-2020 Cemented Stem FDA Start: 05-12-2020 Cemented Stem FDA Start: 05-12-2020 Femoral Cone Augment FDA Star t: 05-12-2020 Femoral Distal Augment FDA Start: 05-12-2020 Femoral Distal Augment FDA Start: 05-12-2020 CEMENT,BONE W/TOBRAMYCIN STRYK FDA Start: 05-12-2020 Femoral Posterio r Augment FDA Start: 05-12-2020 Femoral Posterio r Augment FDA Start: 05-12-2020 PLUG,BONE LARGE FDA Start: 05-12-2020 PLUG,BONE LARGE FDA Start: 05-12-2020 Tibial Symm Cone Augment FDA Start: 05-12-2020 Total Stabilizer Femoral [place] FDA Start: 05-12-2020 Total Stabilizer Tibial Insert FDA Start: 05-12-2020 [place] Tibial Baseplate FDA Start: 05-12-2020 CEMENT,BONE W/TOBRAMYCIN STRYK FDA Start: 05-12-2020 CEMENT,BONE W/TOBRAMYCIN STRYK FDA Start: 05-12-2020 CEMENT,BONE W/TOBRAMYCIN STRYK FDA Start: 05-12-2020 Cemented Stem FDA Start: 05-12-2020 Cemented Stem FDA Start: 05-12-2020 Femoral Cone Augment FDA Star t: 05-12-2020 Femoral Distal Augment FDA Start: 05-12-2020 Femoral Distal Augment FDA Start: 05-12-2020 CEMENT,BONE W/TOBRAMYCIN STRYK FDA Start: 05-12-2020 Femoral Posterio r Augment FDA Start: 05-12-2020 Femoral Posterio r Augment FDA Start: 05-12-2020 PLUG,BONE LARGE FDA Start: 05-12-2020 PLUG,BONE LARGE FDA Start: 05-12-2020 Tibial Symm Cone Augment FDA Start: 05-12-2020 Total Stabilizer Femoral [place] FDA Start: 05-12-2020 Total Stabilizer Tibial Insert FDA Start: 05-12-2020 [place] Tibial Baseplate FDA Start: 05-12-2020 CEMENT,BONE W/TOBRAMYCIN STRYK FDA Start: 05-12-2020 CEMENT,BONE W/TOBRAMYCIN STRYK FDA Start: 05-12-2020 CEMENT,BONE W/TOBRAMYCIN STRYK FDA Start: 05-12-2020 Cemented Stem FDA Start: 05-12-2020 Cemented Stem FDA Start: 05-12-2020 Femoral Cone Augment FDA Star t: 05-12-2020 Femoral Distal Augment FDA Start: 05-12-2020 Femoral Distal Augment FDA Start: 05-12-2020 CEMENT,BONE W/TOBRAMYCIN STRYK FDA Start: 05-12-2020 Femoral Posterio r Augment FDA Start: 05-12-2020 Femoral Posterio r Augment FDA Start: 05-12-2020 PLUG,BONE LARGE FDA Start: 05-12-2020 PLUG,BONE LARGE FDA Start: 05-12-2020 Tibial Symm Cone Augment FDA Start: 05-12-2020 Total Stabilizer Femoral [place] FDA Start: 05-12-2020 Total Stabilizer Tibial Insert FDA Start: 05-12-2020 [place] Tibial Baseplate FDA Start: 05-12-2020 CEMENT,BONE W/TOBRAMYCIN STRYK FDA Start: 05-12-2020 CEMENT,BONE W/TOBRAMYCIN STRYK FDA Start: 05-12-2020 CEMENT,BONE W/TOBRAMYCIN STRYK FDA Start: 05-12-2020 Cemented Stem FDA Start: 05-12-2020 Cemented Stem FDA Start: 05-12-2020 Femoral Cone Augment FDA Star t: 05-12-2020 Femoral Distal Augment FDA Start: 05-12-2020 Femoral Distal Augment FDA Start: 05-12-2020 CEMENT,BONE W/TOBRAMYCIN STRYK FDA Start: 05-12-2020 Femoral Posterio r Augment FDA Start: 05-12-2020 Femoral Posterio r Augment FDA Start: 05-12-2020 PLUG,BONE LARGE FDA Start: 05-12-2020 PLUG,BONE LARGE FDA Start: 05-12-2020 Tibial Symm Cone Augment FDA Start: 05-12-2020 Total Stabilizer Femoral [place] FDA Start: 05-12-2020 Total Stabilizer Tibial Insert FDA Start: 05-12-2020 [place] Tibial Baseplate FDA Start: 05-12-2020 CEMENT,BONE W/TOBRAMYCIN STRYK FDA Start: 05-12-2020 CEMENT,BONE W/TOBRAMYCIN STRYK FDA Start: 05-12-2020 CEMENT,BONE W/TOBRAMYCIN STRYK FDA Start: 05-12-2020 Cemented Stem FDA Start: 05-12-2020 Cemented Stem FDA Start: 05-12-2020 Femoral Cone Augment FDA Star t: 05-12-2020 Femoral Distal Augment FDA Start: 05-12-2020 Femoral Distal Augment FDA Start: 05-12-2020 Goals Date Patient Goal Desired Activity /State Functional Status Date Assessment Result Facility 11-23-2022 Functional status Bathroom Privilege [facility] Work Phone: 03-25-2022 Functional status Ambulates [facility] Work Phone: 11-20-2021 Functional Status Independent Hoangezra roy [facility] 11-20-2021 Functional Status Standard Safet y ID band on, Call device within reach, Bed in low position, Wheels locked, Upper/Half-Length side-rails up, Phone within reach, personal items within reach, Assistive devices within reach, Toileting device within reach, Bedside Cart Locked, Visitor at bedside, Safety level maintained [facility] 10-05-2014 Are you deaf, or do you have serious difficulty hearing No 10/05/2014 1:06 PM Merlyn Luu LPN No [facility] 10-05-2014 Are you blind, or do you have serious difficulty seeing, even when wearing glasses No 10/05/2014 1:06 PM Merlyn Luu LPN No [facility] 10-05-2014 Do you have serious difficulty walking or climbing stairs Yes 10/05/2014 1:06 PM Merlyn Luu LPN Yes [facility] 10-05-2014 Do you have difficul ty dressing or bathing No 10/05/2014 1:06 PM Merlyn Luu LPN No [facility] 10-05-2014 Because of a physica l, mental, or emotional condition, do you have difficulty doing errands alone such as visiting a physician's office or shopping No 10/05/2014 1:06 PM Merlyn Luu LPN No [facility] Mental Status Date Assessment Result Facility 10-20-2024 Cognitive function Awake;Alert;A ppropriate;Fol lows Commands [facility] Work Phone: 02-06-2023 Cognitive function Level Of Cons ciousness Sedated [facility] Work Phone: 02-06-2023 Cognitive function Voice/Name [facility] Work Phone: 12-29-2022 Cognitive function Awake;Alert;A ppropriate;Fol lows Commands [facility] Work Phone: 11-23-2022 Cognitive function Voice/Name [facility] Work Phone: 11-22-2022 Cognitive function Level Of Cons ciousness Awake;Alert;Appropriate;Fol lows Commands [facility] Work Phone: 10-09-2022 Cognitive function Level Of Cons ciousness Awake;Alert;Appropriate;Fol lows Commands [facility] Work Phone: 03-25-2022 Cognitive function Voice/Name [facility] Work Phone: 03-23-2022 Cognitive function Level Of Cons ciousness Awake;Alert;Appropriate [facility] Work Phone: 03-06-2022 Cognitive function Voice/Name [facility] Work Phone: 11-20-2021 Mental Status Orientation Oriented x 4 [facility] 11-20-2021 Mental Status [facility] 10-05-2014 Because of a physica l, mental, or emotional condition, do you have serious difficulty concentrating, remembering, or making decisions No 10/05/2014 1:06 PM EDT Merlyn Calix LPN No [facility] Clinical Notes 09-02-2009 to 10-20-2024 Note Date & Type Note Facility 10-20-2024 Discharge summary [facility] 10-20-2024 Radiology Diagnostic study note [facility] Imaging Services [address] [place] [address] Chest PA and Lateral MR#: [id number] Acct: [id number] Name: TOMGLORY GATICA Faye Rep #: [id number] : 1945 F 79 From: Sussy Mattson MD PCP: Dr. Alexi Morin MD Status: REG E R Study:Chest PA and Lateral Date of Exam: 10/20/24 Exam# [id number] Ordering Dr: Jarek Sweeney DO PROCEDURE: CHEST PA AND LATERAL 10/20/2024 REASON FOR EXAM: CHEST PAIN TECHNIQUE: CHEST PA AND LATERAL COMPARISON: 01/18/2024 FINDINGS: Hardware: EKG leads overlie the chest Heart: The heart size is normal. Mediastinum: The mediastinal contour is unremarkable. Lungs: The lungs are clear. Bones: Degenerative changes are identified within the thoracic spine. RAD/Chest PA and Lateral IMPRESSION: No acute pulmonary process, no interval change Reading Location: [id number] CC: Dr. Alexi Morin MD; Dr. Rohit Sweeney DO ~ Button Riveter: Signed [facility] 10-20-2024 Discharge summary Note Date/Time October 20, 2024 7:18pm [facility] Medical Records Department [address] [place] [address] Emergency Department Summary 10/20/24 MR#: [id number] Acct: [id number] Name: GLORY SANTOS Rep #:[id number] : 1945 79 From: Rohit Sweeney DO PCP: Dr. Alexi Morin MD Status:REG E R Location: ED HPI History of Present Illness Chief Complaint: Chest Pain Narrative Narrative: Patient is a 79-year-old female with a past medical history of atrial fibrillation on Eliquis, hypertension, GERD, CHF, COPD, CAD with stent, fibromyalgia who presents to the emergency department from her [facility] pharmacy office with a chief complaint of chest pain, shortness of breath not feeling well. Patient states that on Sunday she states that she has been progressively gettingworsening shortness of breath with exertion and notes that Sunday she developed left-sided chest pain that radiated down her left arm. States that her last heart cath was in January of this past year. She denies missing doses of her Eliquis denies any recent travels denies any history of blood clots. Denies sick contacts. [facility] Medical History Diverticulosis Heartburn Gastric reflux CPAP (continuous positive airway pressure) dependence Sleep apnea History of echocardiogram Iron deficiency anemia due to chronic blood loss Hoarseness Dyspnea Loss of hearing Post-menopausal Low iron Difficulty chewing Chronic cough Asthma [facility] current use of amiodarone Wears glasses Wears dentures Ambulates with cane High cholesterol History of hiatal hernia History of diverticulitis Shortness of breath on exertion Non-smoker Leg cramps History of Holter monitoring History of stress test Cardiology follow-up encounter Stable angina Shortness of breath Mass of soft tissue Chronic anticoagulation Iron deficiency anemia Esophageal stenosis History of left heart catheterization (LHC) Hypokalemia Bilateral edema of lower extremity Atrial fibrillation HTN (hypertension) Myocardial infarct Gastroesophageal reflux disease Depression Hyperlipidemia Osteoarthritis of knee Coronary artery disease Cardiac arrest Atherosclerosis of c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 pectoris Neuropathy of right lower extremity Contusion of right lower leg, sequela Chronic venous insufficiency of lower extremity Incontinence Back pain Shoulder pain Hemorrhoids Vitamin deficiency Rheumatoid arthritis Cataracts, bilateral UTI (urinary tract infection) Bone fracture Breast lump in female History of back problems Arthritis Left breast lump Fibromyalgia Obesity Generalized osteoarthritis GERD (gastroesophageal reflux disease) Home Medications ?Medication ?Instructions ?Recorded ?Last Taken ?Type nitroglycerin 0.4 mg sublingual 0.4 mg sublingual Q5M PRN 12/05/20 11/08/22 Rx tablet Cardiac/Chest Pain #1 BOTTLE atorvastatin 40 mg tablet 40 mg PO QHS Cholestrol #90 tabs 01/16/22 10/19/24 Rx cholecalciferol (vitamin D3) 25 25 mcg PO DAILY SUPPLE MENT 02/28/22 10/20/24 History mcg (1,000 unit) tablet diazepam 2 mg tablet (Valium) 2 mg PO UD PRN dizziness or 11/23/22 Unknown Rx vertigo #20 tabs isosorbide mononitrate 60 mg 60 mg PO DAILY #90 tabs 0 01/04/23 10/19/24 Rx tablet,extended release 24 hr buspirone 7.5 mg tablet 7.5 mg PO BID 11/01/2310/20 History meclizine 25 mg tablet 25 mg PO DAILY PRN dizziness 11/01/23 Unknown History vitamins A,C,Y-yktu-qizgrc 1 cap PO BID [facility] 10/20/24 History rosuvastatin 40 mg tablet 40 mg PO QDAY 12/27/2310/20 History apixaban 2.5 mg tablet (Eliquis) 2.5 mg PO BID #60 tab s 01/14/24 10/20/24 Rx pantoprazole 40 mg tablet,delayed 40 mg PO DAILY #30 T ABLETS 01/22/24 10/19/24 Rx release amiodarone 200 mg tablet 200 mg PO QDAY 10/20/24 06/ History amlodipine 5 mg tablet 5 mg PO QDAY 10/20/24 History metoprolol succinate 100 mg 25 mg PO QDAY 10/20/24 History tablet,extended release 24 hr potassium chloride 10 mEq 10 meq PO BID 10/20/2410/20 History capsule,extended release Allergy/AdvReac Type Severity Reaction Status Date / Time bee pollen Allergy Anaphylaxis Verified 10/20/24 14:52 latex Allergy Swelling Verified 10/20/24 14:52 morphine Allergy Other Verified 10/20/24 14:52 Penicillins Allergy Hives Verified 10/20/24 14:52 ranolazine AdvReac Intermediate Dizzy and Verified 10/20/24 14:52 Lightheaded hydrocodone bitartrate (From AdvReac Abd Verified 10/20/24 14:52 Vicodin) cramps/diarrhea Family History Father Diabetes Heart disease Hypertension CVA (cerebral vascular accident) Parkinson disease Mother Breast cancer Hypertension Grandmother Cancer pancreatic cancer Ovarian cancer Son Anesthesia complication Brother Asthma Arthritis Diabetes Respiratory disease Grandfather Lung cancer CVA (cerebral vascular accident) Surgical History History of tubal ligation History of cardiac catheterization History of coronary artery stent placement Hematoma Hx of appendectomy History of cataract surgery History of left breast biopsy (~11/2017) history bilateral breast biopsies History of repair of right rotator cuff History of bilateral knee replacement History of hysterectomy History of laparoscopic cholecystectomy History of tonsillectomy and adenoidectomy Social History household members: spouse Smoking Status: Never smoker alcohol intake: never substance use type: does not use caffeine: Yes Type: carbonated beverages Number of servings: 1 and coffee Number of servings: 1 additional social history: DOES NOT USE IBUPROFEN ROS ROS ED ROS Narrative Constitutional: Complains of lightheadedness denies any fevers, chills, headaches Eyes: Denies change in vision double vision blurry vision Cardiovascular: With chest pain as noted above denies palpitations Respiratory: Complains of shortness of breath as noted above denies coughing wheezing Abdomen: Denies abdominal pain nausea vomit diarrhea : Denies urinary symptoms Neurological: Denies numbness, weakness, tingling Musculoskeletal: Denies back pain Skin: Denies any rashes or lesions EXAM Physical Exam Narrative Exam Narrative: General: Patient lying in bed rest comfortably did not appear to be acute distress Head: Atraumatic, normocephalic Eyes: PERRL bilaterally, EOMI bilateral, no conjunctival injection noted Neck: Soft, supple, trachea midline Cardiovascular: Patient has an irregular irregular rhythm with tachycardic rate no murmurs gallops rubs noted Respiratory: Diminished breath sounds at the bases bilaterally Abdomen: Soft, nondistended, tender to palpation Extremities: Radial pulses +2/4 in the bilateral extremities, 1+ pitting edema in the bilateral lower extremities Neurological: Patient follow commands and that she was at [facility] year is 2024 Skin: Warm, dry, intact no rashes or lesions noted Const Vital Signs: 10/20/24 14:52 10/20/24 15:08 10/20/24 15:29 Temperature 98.3 F Temperature Source Oral Pulse Rate 87 Respiratory Rate 16 Respiratory Effort Normal Blood Pressure 112/77 Blood Pressure Mean 88 Pulse Ox 96 99 Oxygen Delivery Method Room Air Room Air 10/20/24 15:52 10/20/24 16:00 10/20/24 17:00 Temperature Temperature Source Pulse Rate 90 90 Respiratory Rate 14 17 Respiratory Effort Blood Pressure 99/69 99/69 120/77 Blood Pressure Mean 79 79 91 Pulse Ox 96 94 Oxygen Delivery Method Room Air Room Air Room Air 10/20/24 18:23 10/20/24 19:00 Temperature Temperature Source Pulse Rate 78 91 Respiratory Rate 16 14 Respiratory Effort Blood Pressure 129/62 H 141/66 H Blood Pressure Mean 84 91 Pulse Ox 97 96 Oxygen Delivery Method Room Air Room Air MDM MDM MDM Narrative Medical decision making narrative: Patient is a 79-year-old female who presented to the emergency department the chief complaint of shortness of breath, chest pain from her [facility] pharmacy office. On the differential diagnose includes but not limited to ACS, pneumonia, pneumothorax, CHF exacerbation, atrial fibrillation with rapid ventricular response. Once workup is obtained reviewed she will be reevaluated. Patient's cardiology team called down and notified me that she was coming down to be evaluated. They state that her heart rate was in the 140s. They were concerned given her chest pain and shortness of breath with her symptoms they wanted her to be further evaluated. Patient's CBC was reviewed and showed no evidence leukocytosis white blood countwas 2.8, he was 12.3, plate count was 306. Patient sodium was 142, potassium normal 3.9, creatinine was 1.15. Patient's troponin was 20 with a delta troponin of 17, proBNP was 2281. Patient's EKG was reviewed and showed atrial flutter with very block with a rate of 113 bpm. Patient's chest x-ray reviewed and showed no acute cardiopulmonary processes andthis reviewed by myself by radiology. Patient was ambulated here in the emergency department during this time she toldme that she felt short of breath, lightheaded however she did not become hypoxic. Discussed case with on-call deliverer pharmacy Dr. Maldonado and states that since she is not chronically in atrial fibrillation/flutter and she is symptomatic he would recommend admission given that she is already on several other medications. Will discuss case with hospitalist for admission. Discussed case with hospitalist Dr. Sorenson who accept patient for admission. Lab Data Labs: Laboratory Results - last 24 hr 10/20/24 10/20/24 15:17 17:39 WBC 7.8 RBC 4.51 Hgb 12.3 Hct 38.2 MCV 84.7 MCH 27.3 MCHC 32.2 RDW Std Deviation 45.5 H RDW Coeff of April 14.9 H Plt Count 306 MPV 10.0 Immature Gran % (Auto) 0.300 Neut % (Auto) 63.8 Lymph % (Auto) 25.3 [place] % (Auto) 7.1 Eos % (Auto) 2.7 Baso % (Auto) 0.8 Absolute Neuts (auto) 5.0 Absolute Lymphs (auto) 1.96 Nucleated RBC % 0 Sodium 142 Potassium 3.9 Chloride 103 Carbon Dioxide 26.5 Anion Gap 13 BUN 20 H Creatinine 1.15 Estim Creat Clear Calc 39.36 L Est GFR (MDRD) Non-Af 49 L BUN/Creatinine Ratio 17.1 Glucose 137 H Calcium 9.8 Troponin T High Sens 20 H Troponin T Hi Sens 2 Hr 17 H NT pro BNP II 2281 H TSH 0.952 Free T4 1.20 Free T3 pg/dL 2.1 L Radiography Diagnostic Testing: Clinical Impression(s) from Imaging Studies Chest X-Ray 10/20/24 15:08 IMPRESSION: No acute pulmonary process, no interval change Reading Location: [facility] Discharge Plan Triage Chief Complaint: Chest Pain ED Provider: Rohit Sweeney Dx/Rx/DC Orders Clinical Impression: Light-headed, Shortness of breath, Atrial flutter Prescriptions: No Action isosorbide mononitrate 60 mg tablet extended release 24 hr 60 mg PO DAILY Qty: 90 3RF meclizine 25 mg tablet 25 mg PO DAILY PRN (Reason: dizziness) buspirone 7.5 mg tablet 7.5 mg PO BID rosuvastatin 40 mg tablet 40 mg PO QDAY potassium chloride 10 mEq capsule, extended release 10 meq PO BID amiodarone 200 mg tablet 200 mg PO QDAY amlodipine 5 mg tablet 5 mg PO QDAY metoprolol succinate 100 mg tablet extended release 24 hr 25 mg PO QDAY cholecalciferol (vitamin D3) 25 mcg (1,000 unit) tablet 25 mcg PO DAILY Patient Comments: nitroglycerin 0.4 mg Tablet, Sublingual 0.4 mg sublingual Q5M PRN (Reason: Cardiac/Chest Pain) Qty: 1 0RF diazepam [Valium] 2 mg tablet 2 mg PO UD PRN (Reason: dizziness or vertigo) Qty: 20 0RF Rx Instructions: 1 3-4 times a day for dizziness vitamins A,C,R-jtmf-ljwigd [PreserVision AREDS] 1 cap PO BID atorvastatin 40 mg tablet 40 mg PO QHS Qty: 90 3RF Eliquis 2.5 mg tablet 2.5 mg PO BID Qty: 60 11RF pantoprazole 40 mg tablet,delayed release (DR/EC) 40 mg PO DAILY Qty: 30 9RF Primary Care Provider: Alexi Morin Chi Referrals: Alexi Morin Chi, MD [Primary Care Provider] - Print Language: Brazilian Disposition Disposition: Acute Care Hospital [facility] What to do if you have Problems For any increased pain, shortness of breath, bleeding, nausea or vomiting, chestpain, or any unexpected problems, contact your Primary Care Provider. Call [facility] ([phone]) or report to the closest Emergency Room. Call 911 if necessary. 10/20/241917 <Electronically signed by Rohit Sweeney DO> Cosigner Signature (if applicable): CC: Dr. Alexi Morin MD ~ Signed [facility] Work Phone: 1(831) 843-644505-01-2025 Evaluation note* Diagnosis Onset Date Resolution Status Admit Date Nausea & vomiting acute August 12:53pm Bilateral edema of lower extremity chronic August 21, 2024 12 :53pm COPD (chronic obstructive pulmonary disease) chronic August 21, 2024 12:53pm Coronary artery disease chronic M ay 2024 12:53pm HTN (hypertension) chronic August 12:53pm Obesity chronic August 21, 2024 12:53pm Paroxysmal atrial fibrillation chron ic August 21, 2024 12:53pm Pulmonary hypertension chronic Ma y 2024 12:53pm [facility] Work Phone: 1(604) 135-867805-01-2025 Evaluation note* Diagnosis Onset Date Resolution Status Admit Date Nausea & vomiting acute August 12:53pm Bilateral edema of lower extremity chronic August 21, 2024 12 :53pm COPD (chronic obstructive pulmonary disease) chronic August 21, 2024 12:53pm Coronary artery disease chronic M ay 2024 12:53pm HTN (hypertension) chronic August 12:53pm Obesity chronic August 21, 2024 12:53pm Paroxysmal atrial fibrillation chron ic August 21, 2024 12:53pm Pulmonary hypertension chronic Ma y 2024 12:53pm Atrial flutter acute October 20, 2024 8:00pm Chest pain acute October 20 8:00pm [facility] Work Phone: 1(241) 904-434303-14-2025 Telephone encounter Note* Telephone Encounter - Nora Harris - 07/04/2024 1:17 PM EDT Received records from Dr. Briceno's office. Scanned into chart for review. [facility]03-14-2025 Miscellaneous Notes* Telephone Encounter - Steven Nora Mckinney - 07/04/2024 1:17 PM EDT Received records from Dr. Briceno's office. Scanned into chart for review. * Telephone Encounter - Steven Nora Mckinney - 06/03/2024 1:58 PM EST Requested records from Dr. Briceno's office. * Telephone Encounter - Maricarmen Ramos - 06/03/2024 12:37 PM EST Patient called to schedule NEW PAT appt. She was going to [facility], Dr. Melody Briceno.I verified her address, phone numbers, PCP and insurance. Patient is scheduled w/ Dr. Gonzalez on 12/01/2024 @ 9:30 am. Please request records. documented [facility] Telephone encounter Note * Telephone Encounter - Steven Nora Mckinney - 06/03/2024 1:58 PM EST Requested records from Dr. Briceno's office. [facility]02-11-2025 Telephone encounter Note* Telephone Encounter - Maricarmen Ramos - 06/03/2024 12:37 PM EST Patient called to schedule NEW PAT appt. She was going to [facility], Dr. Melody Briceno.I verified her address, phone numbers, PCP and insurance. Patient is scheduled w/ Dr. Gonzalez on 12/01/2024 @ 9:30 am. Please request records. [facility]08-17-2024 Telephone encounter Note* Telephone Encounter - Aguila Isaac RN - 12/08/2023 2:05 PM EDT Reason for Call: Chest Pain Patient complain of constant pain left side of chest and HR 137 Outcome: Advised to call 911 and patient agreed with the recommendation. Reason for Disposition Chest pain [1] Chest pain lasts > 5 minutes AND [2] age > 44 Protocols used: Heart Rate and Heartbeat [id number], Chest [id number] [facility]08-17-2024 Miscellaneous Notes* Telephone Encounter - Aguila Isaac RN - 12/08/2023 2:05 PM EDT Reason for Call: Chest Pain Patient complain of constant pain left side of chest and HR 137 Outcome: Advised to call 911 and patient agreed with the recommendation. Reason for Disposition Chest pain [1] Chest pain lasts > 5 minutes AND [2] age > 44 Protocols used: Heart Rate and Heartbeat [id number], Chest Bjsf-[id number] documented in this encounterC[facility]02-25-[facility] History of Present illness Narrative* Igor Jimenez MD - 06/17/2023 6:29 AM EST HISTORY AND PHYSICAL Glory Faye Santos 1945 REFERRING PHYSICIAN: Alexi Morin Chi, MD CHIEF COMPLAINT: Consult (Bleeding hemorrhoids) HPI: The patient is a 78 year old female with a complaint of occasional bleeding hemorrhoids. She had an unremarkable colonoscopy which demonstrated internal hemorrhoids in 2018. She notes occasionalbright red blood in the toilet bowel and on the paper. SHe is not currently bleeding The patient is being seen by me today at the request of Dr. Alexi Morin MD for my opinion and advice regarding likely hemorrhoidal bleeding. PAST MEDICAL HISTORY Diagnosis Date Abnormal weight loss Arthropathy, unspecified, site unspecified rheumatoid arthritis - neck, back, knees, hands DVT (deep venous thrombosis) ([facility]) 2003 Esophageal reflux Esophageal stenosis Unspecified essential [...] Take 2 Puffs by mouth every 4 hoursas needed for wheezing/shortness of breath. Do not [...] age 72 Diabetes Father Parkinsons, HTN, CAD, [place] Hypertension Father Stroke Father None Brother MVA age 13 Diabetes Brother Asthma Brother None Brother None Sister Hypertension Brother Hypertension Brother Psychiatry Brother REVIEW OF SYMPTOMS: The review of systems data was entered by the nurse and reviewed by ky Nursing Notes: Luz Torres LPN 06/15/2023 12:38 PM Signed REVIEW OF SYSTEMS: General: The patient NOTES fatigue, denies weight loss, denies weight gain, denies feeling hot, anddenies feelings of cold. Eyes: The patient NOTES glaucoma, denies eye injury/surgery, does not wear glasses or contacts. Ear/Nose/Throat: The patient NOTES allergies, denies hayfever, denies ear infections, and denies bloody noses. Cardiovascular: The patient denies chest pain, NOTES heart disease, NOTES high blood pressure,NOTEScardiac stent, NOTES prior heart attack, NOTES irregular heart beat, denies high cholesterol, NOTESpoor circulation, denies heart failure, other cardiac issues, NOTES claudication, NOTES cold feet, denies peripheral arterial stent. Respiratory: The patient denies tuberculosis, denies pneumonia, NOTES frequent cough, denies pulmonary embolism, NOTES shortness of breath, and denies coughing up blood. Gastrointestinal: The patient NOTES difficulty swallowing, NOTES acid reflux, denies ulcers, deniesvomiting, denies jaundice/hepatitis, denies gallbladder problems, denies black [...] nourished, well hydrated in no acute distress. Thepatient is oriented to time, place, and person. VITALS: Blood pressure 130/82, pulse 97, temperature 36.4 C (97.6 F), height 152.4 cm (5'), weight 90.4 kg (199 lb 3.2 oz), SpO2 98%. HEENT: Normal cephalic, ataumatic, pupils are equally round, sclera are anicteric, mucous membranesare moist, oropharynx is clear. Neck has no [...] diagnosis) A letter was sent to Dr. Alexi Morin MD indicating the above finding for this patient. Return to Clinic: The patient is instructed to follow-up with me as needed. Igor Jimenez MD documented in this encounterC[facility] Nurse Note* Luz Torres LPN - 06/15/2023 12:34 PM EST REVIEW OF SYSTEMS: General: The patient NOTES fatigue, denies weight loss, denies weight gain, denies feeling hot, anddenies feelings of cold. Eyes: The patient NOTES glaucoma, denies eye injury/surgery, does not wear glasses or contacts. Ear/Nose/Throat: The patient NOTES allergies, denies hayfever, denies ear infections, and denies bloody noses. Cardiovascular: The patient denies chest pain, NOTES heart disease, NOTES high blood pressure,NOTEScardiac stent, NOTES prior heart attack, NOTES irregular heart beat, denies high cholesterol, NOTESpoor circulation, denies heart failure, other cardiac issues, NOTES claudication, NOTES cold feet, denies peripheral arterial stent. Respiratory: The patient denies tuberculosis, denies pneumonia, NOTES frequent cough, denies pulmonary embolism, NOTES shortness of breath, and denies coughing up blood. Gastrointestinal: The patient NOTES difficulty swallowing, NOTES acid reflux, denies ulcers, deniesvomiting, denies jaundice/hepatitis, denies gallbladder problems, denies black [...] UNSURE Luz Torres LPN [facility]08-03-2023 Discharge summary Author Leroy White [facility] [place] November 23, 2022 2:53pm Note Date/Time November 23, 2022 2:3 6pm [facility] [place] [facility] Medical Records Department [address] [place] [id number] Instructions for Home/Discharge Instructions 11/23/22 1434 MR#: [id number] Acct: [id number] Name: GLORY SANTOS Faye Rep #:[id number] : 1945 77 From: Leroy White DO PCP: Dr. Alexi Morin MD Status:ADM I NO Discharge Instructions Diet Discharge Diet: No restrictions Activity Discharge Activity: Return to Normal Activity and Use Walker Weight Bearing Status: Full weight bearing Follow Up Care Test Results: Test results from this visit will be discussed in further detail at your follow- up appointment, if applicable. Discharge Plan Admission Admit Date/Time: 11/22/22 16:35 Primary Reason for Your Visit: vertigo Attending Provider: Leroy White Primary Care Provider: Alexi Morin [employer] Providers: Óscar Craft Discharge Orders/Prescriptions Prescriptions: New diazepam [Valium] 2 mg tablet 2 mg PO UD PRN (Reason: dizziness or vertigo) Qty: 20 0RF Rx Instructions: 1 3-4 times a day for dizziness ondansetron HCl 4 mg tablet 4 mg PO Q6H PRN (Reason: nausea and vomiting) Qty: 15 0RF Continued potassium chloride 10 mEq tablet extended release 10 meq PO DAILY Gemtesa 75 mg tablet 75 mg PO DAILY cholecalciferol (vitamin D3) 25 mcg (1,000 unit) tablet 25 mcg PO DAILY nitroglycerin 0.4 mg Tablet, Sublingual 0.4 mg sublingual Q5M PRN (Reason: Cardiac/Chest Pain) Qty: 1 0RF methenamine hippurate 1 gram tablet 1 g PO DAILY ascorbic acid (vitamin C) [Vitamin C] 500 mg tablet 500 mg PO QPM amlodipine 2.5 mg tablet 2.5 mg PO DAILY pantoprazole [Protonix] 40 mg tablet,delayed release (DR/EC) 40 mg PO DAILY atorvastatin 40 mg tablet 40 mg PO QHS Qty: 90 3RF Eliquis 5 mg tablet 5 mg PO BID Qty: 180 4RF Hold Instructions: May resume from tomorrow a.m. losartan 50 mg tablet 50 mg PO DAILY Qty: 90 3RF metoprolol succinate 25 mg tablet extended release 24 hr 25 mg PO QHS Qty: 180 4RF isosorbide mononitrate 60 mg tablet extended release 24 hr 60 mg PO DAILY Qty: 90 3RF sucralfate 1 gram tablet 1 g PO QAC Qty: 90 0RF Referrals / Follow Up: Alexi Morin Chi, MD [Primary Care Provider] - Within 2 Weeks Disposition Disposition (needs filled in before D/C Order can be placed): Home, Self Care 11/23/22 7892<Electronically signed by Leroy White DO>Leroy White DO CC: Dr. Óscar Craft MD; Dr. Alexi Morin MD ~ Signed [facility] [place] Work Phone: [phone] 163-180108-02-2023 History and physical note Author Óscar Craft [facility] [place] November 22, 2022 7:45pm Note Date/Time November 22, 2022 4:4 1pm [facility] Medical Records Department [address] [place] [address] H&P Exam - Hospitalist 11/22/22 1640 MR#: [id number] Acct: [id number] Name: GLORY SANTOS Rep #:[id number] : 1945 77 From: Óscar Guillen PCP: Dr. 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 HPI Narrative GLORY SANTOS, is a 77 F came to ED after she had sudden onset of dizziness and vertigo that started about 3 AM while she was trying to go to bathroom. At thattime she could not keep her balance, wobbly or stand erect therefore with the help of her and walker she went to bathroom. She states she does not feel weakness in her leg but could not balance herself. She she has mild blurryvision but denies diplopia, loss of vision/quadrantanopsia, change in speech or language or dysarthria. She has history of chronic esophageal dysphagia due to erosive esophagitis moderate Schatzki ring which required dilatation in March2022. She still cannot swallow regular food with sip of water. No recent fever or URI or UTI. The ED physician tried Keyanna's maneuver but she still has dizziness and vertigo. No nystagmus Vitals in the ED were in the normal range. No EKG done in ED therefore EKG ordered. Patient was further admitted. [facility] Medical History Arthritis Atherosclerosis of c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 pectoris Atrial fibrillation Back pain Bilateral edema of lower extremity Bone fracture Breast lump in female Cardiac arrest Cataracts, bilateral Chronic anticoagulation Chronic venous insufficiency of lower extremity Contusion of right lower leg, sequela Coronary artery disease Depression Esophageal stenosis Fibromyalgia Gastroesophageal reflux disease Generalized osteoarthritis GERD (gastroesophageal reflux disease) Hemorrhoids History of back problems History of left heart catheterization (LHC) (~07/22/21) HTN (hypertension) Hyperlipidemia Hypokalemia Incontinence Iron deficiency anemia Left breast lump Mass of soft tissue Myocardial infarct Neuropathy of right lower extremity Obesity Osteoarthritis of knee Rheumatoid arthritis Shortness of breath Shoulder pain UTI (urinary tract infection) Vitamin deficiency Home Medications nitroglycerin 0.4 mg sublingual tablet 0.4 mg sublingual Q5M PRN Cardiac/Chest Pain #1 BOTTLE 12/05/20 [Rx Last Taken 11/08/22] atorvastatin 40 mg tablet 40 mg PO QHS Cholestrol #90 tabs 01/16/22 [Rx Last Taken 11/21/22] cholecalciferol (vitamin D3) 25 mcg (1,000 unit) tablet 25 mcg PO DAILY SUPPLEMENT 02/28/22 [History Last Taken 11/22/22] apixaban 5 mg tablet (Eliquis) 5 mg PO BID BLOOD THINNER #180 tabs 03/20/22 [Rx Last Taken 11/22/22] losartan 50 mg tablet 50 mg PO DAILY BLOO PESSURE #90 tabs 06/06/22 [Rx Last Taken 11/22/22] potassium chloride 10 mEq tablet,extended release 10 meq PO DAILY SUPPLEMENT 07/06/22 [History Last Taken 11/22/22] metoprolol succinate 25 mg tablet,extended release 24 hr 25 mg PO QHS BLOOD PRESSURE #180 tabs 08/14/22 [Rx Last Taken 11/21/22] isosorbide mononitrate 60 mg tablet,extended release 24 hr 60 mg PO DAILY HEART #90 tabs 08/21/22 [Rx Last Taken 11/22/22] sucralfate 1 gram tablet 1 g PO QAC ULCERS #90 tabs 10/26/22 [Rx Last Taken 11/22/22] vibegron 75 mg tablet (Gemtesa) 75 mg PO DAILY OVERACTIVE BLADDER 11/15/22 [History Last Taken 11/22/22] amlodipine 2.5 mg tablet 2.5 mg PO DAILY BLOOD PRESSURE 11/22/22 [History Last Taken 11/22/22] ascorbic acid (vitamin C) 500 mg tablet (Vitamin C) 500 mg PO QPM SUPPLEMENT 11/22/22 [History Last Taken 11/21/22] methenamine hippurate 1 gram tablet 1 g PO DAILY UTI PREVENTION 11/22/22 [History Last Taken 11/22/22] pantoprazole 40 mg tablet,delayed release (Protonix) 40 mg PO DAILY ACID REFLUX 11/22/22 [History Last Taken 11/22/22] Allergy/AdvReac Type Severity Reaction Status Date / Time bee pollen Allergy Anaphylaxis Verified 11/22/22 12:08 latex Allergy Swelling Verified 11/22/22 12:08 morphine Allergy Other Verified 11/22/22 12:08 Penicillins Allergy Hives Verified 11/22/22 12:08 ranolazine AdvReac Intermediate Dizzy and Verified 11/22/22 12:08 Lightheaded hydrocodone bitartrate AdvReac Abd Verified 11/22/22 12:08 [From Vicodin] cramps/diarrhea Family History Father Diabetes Heart disease Hypertension CVA (cerebral vascular accident) Parkinson disease Mother Breast cancer Hypertension Grandmother Cancer pancreatic cancer Ovarian cancer Son Anesthesia complication Brother Asthma Arthritis Diabetes Respiratory disease Grandfather Lung cancer CVA (cerebral vascular accident) Surgical History Hematoma history bilateral breast biopsies History of bilateral knee replacement History of cataract surgery History of coronary artery stent placement (11/16/20) History of hysterectomy History of laparoscopic cholecystectomy History of left breast biopsy (~11/2017) History of repair of right rotator cuff History of tonsillectomy and adenoidectomy Hx of appendectomy Social History household members: spouse Smoking Status: Never smoker alcohol intake: never substance use type: does not use caffeine: Yes Type: carbonated beverages Number of servings: 1 and coffee Number of servings: 1 additional social history: DOES NOT USE IBUPROFEN ROS ROS Narrative Constitutional: Reports fatigue and weakness. No fever. HEENT: Dizziness and vertigo as described in HPI. Reports systems reviewed and no addt'l complaints, except as documented Respiratory/Chest: No acute shortness of breath or respiratory distress or wheezing. CVS: No acute chest pain or chest pressure or tightness. History of coronary artery stent and A-fib. Follows Dr. Almazan Gastrointestinal: Denies coffee ground emesis, hematemesis or vomiting Genitourinary: Denies burning urination or new urinary tract symptoms Musculoskeletal: Chronic degenerative arthritis. Denies acute joint pain or limited range of motion. No acute injury Neurologic: Denies seizure-like symptoms. Denies history of stroke. skin: Chronic right lower leg eschar, surgery done by Dr. De Dios for hematoma. No acute ulcer. Endocrinology: Reports systems reviewed and no addt'l complaints, except as documented Hematologic/Lymphatic: Reports systems reviewed and no addt'l complaints, exceptas documented Rest 14 ROS are negative except as mentioned in HPI Vital Signs Vital Signs Vital Signs: 11/22/22 12:05 11/22/22 12:24 11/22/22 12:26 Temperature 98 F Temperature Source Temporal Pulse Rate 72 74 Pulse Rate [Lying] Pulse Rate [Sitting (for 1 minute prior to obtaining)] Pulse Rate [Standing (for 1 minute prior to obtaining)] Respiratory Rate 16 13 Respiratory Effort Short of Breath Respiratory Pattern Normal Blood Pressure 138/71 H 147/77 H Blood Pressure [Lying] Blood Pressure [Sitting (for 1 minute prior to obtaining)] Blood Pressure [Standing (for 1 minute prior to obtaining)] Blood Pressure Mean 93 100 Blood Pressure Mean [Lying] Blood Pressure Mean [Sitting (for 1 minute prior to obtaining)] Blood Pressure Mean [Standing (for 1 minute prior to obtaining)] Pulse Ox 97 97 Oxygen Delivery Method Room Air Room Air 11/22/22 14:04 Temperature Temperature Source Pulse Rate Pulse Rate [Lying] 72 Pulse Rate [Sitting (for 1 minute prior to obtaining)] 73 Pulse Rate [Standing (for 1 minute prior to obtaining)] 76 Respiratory Rate Respiratory Effort Respiratory Pattern Blood Pressure Blood Pressure [Lying] 128/71 H Blood Pressure [Sitting (for 1 minute prior to obtaining)] 131/76 H Blood Pressure [Standing (for 1 minute prior to obtaining)] 135/72 H Blood Pressure Mean Blood Pressure Mean [Lying] 90 Blood Pressure Mean [Sitting (for 1 minute prior to obtaining)] 94 Blood Pressure Mean [Standing (for 1 minute prior to obtaining)] 93 Pulse Ox Oxygen Delivery Method Weight Weight: 212 lb 1.355 oz Body Mass Index (BMI) 41.4 Physical Exam Narrative General: Alert, Oriented x3, Cooperative HEENT: Atraumatic, PERRLA, EOMI, Normocephalic. No diplopia/quadrantanopsia/similar.. Field of vision intact. Oral: Oral mucosa dry. No Gingival or Mucosal Lesions/ Ulcerations Neck: Supple, No JVD, Negative Carotid Bruits Lungs: Air entry diminished in bilateral lung bases. No crepitation/rhonchi Cardiovascular: Regular rate, Regular Rhythm, Normal S1, Normal S2, No murmurs Abdomen: Bowel Sounds Present, Soft, Non Tender, Non-Distended : No renal angle tenderness. No suprapubic tenderness. Extremities: Chronic swelling of right lower leg, left lower leg is recent, Capillary Refill Less than 3 Seconds Skin: Chronic eschar on the right lower leg. No ulcer or rash. Musculoskeletal: No Tenderness to Palpation of Joints or Extremities. Degenerative arthritis of both knees and hips joint status post bilateral TKR Neurological: Cranial nerves II-XII grossly intact, DTR 2+/4. Muscle strength 5/5 at major joints. Finger-nose and heel chirinos test are negative. Psych/Mental Status: Normal Affect, Appropriate. Results Lab / Micro Data 11/22/22 13:20 11/22/22 13:20 Labs: Laboratory Results - last 24 hr 11/22/22 13:20: WBC 5.5, RBC 4.08 L, Hgb 10.3 L, Hct 34.3 L, MCV 84.1, MCH 25.2 L, MCHC 30.0 L, RDW Std Deviation 49.9 H, RDW Coeff of April 16.2 H, Plt Count 268, MPV 9.9, Immature Gran % (Auto) 0.500, Neut % (Auto) 61.8, Lymph % (Auto) 23.5, [place] % (Auto) 10.6 H, Eos % (Auto) 2.9, Baso % (Auto) 0.7, Absolute Neuts (auto) 3.4, Absolute Lymphs (auto) 1.29, Nucleated RBC % 0, Sodium 143, Potassium 4.2, Chloride 113 H, Carbon Dioxide 27.0, Anion Gap 3 L, BUN 17, Creatinine 0.96, Estim Creat Clear Calc 36.37, Est GFR (MDRD) Af Amer 73, Est GFR (MDRD) Non-Af 61, BUN/Creatinine Ratio 17.8, Glucose 139 H, Calcium 8.7 11/22/22 13:38: Urine Color Yellow, Urine Clarity Sl. Cloudy, Urine pH 5.0, Ur Specific [place] 1.025, Urine Protein 30 H, Urine Glucose (UA) Normal, Urine Ketones Negative, Urine Occult Blood 50 H, Urine Nitrite Negative, Urine Bilirubin Negative, Urine Urobilinogen Normal, Ur Leukocyte Esterase 25 H, UrineRBC 0-5 SEEN, Urine WBC 0-5 SEEN, Ur Squamous Epith Cells 0 SEEN, Urine Bacteria0 SEEN, Urine Mucus 0 SEEN Radiology Impression Brain CT 11/22/22 13:08 IMPRESSION: Chronic involutional changes of the brain. Electronically Signed: Peter Davidson MD at 14:01 EDT , Assessment & Plan Assessment/Plan (1) Vertigo: (2) Dyslipidemia: PLAN: Plan 1. Acute onset of dizziness and vertigo, loss of equilibrium probably BPPV but rule out a stroke: Patient is being admitted in PCU. PT OT and speech therapy ordered. Patient did not tolerate well Keyanna maneuver with ER physician. MRI brain without contrast ordered to rule out a stroke. If stroke is positive willneed further work-up including head and neck vascular study and echo. 2. History of chronic esophagitis and esophageal dysphagia/stenosis : Speech therapist ordered. The patient had EGD in March 2022 during previous admission which showed LA grade C erosive esophagitis treated with heater probe. Moderate schatzki ring; dilated, small hiatus hernia, gastric mucosal atrophy, normal first duodenum. Patient on PPI. Patient has follow-up coming with Dr. Greenfield in 2 weeks. 3. Coronary artery disease status post stent and chronic A-fib: Twelve-lead EKGreviewed shows A-fib, chronic 80/min QTc 495 ms.2D Echo on September 2021 shows EF 65%, mild MR, mild TR RVSP 31 mmHg. No acute chest pain or shortness of breath. 4. Chronic iron deficiency anemia: Hemoglobin 10.3, platelet count 268. Patient hemoglobin is is around baseline about 10.5 during previous admission inDece2021. 5 hypertension: Blood pressure is controlled. 6.chronic l A. fib on Eliquis: Continue Eliquis 5 mg twice daily. VTE prophylaxis: On Eliquis as mentioned above. Living will/advanced directive/end of life care: Patient does not have living will or advanced directive. She does not have designated power of divorce attorney for health. After discussion of benefits/risks procedures involved with full code,DNR CC arrest and DNR CC, the patient opted for full code. Patient does want artificial life support including intubation, tube feed, ventilator and/chest compression, central venous catheter, vasopressor and DC shock if needed Total time spent in [id number] encounter in discussion of advanced directive 17 minutes. Laboratory Results 11/22/22 13:20: WBC 5.5, RBC 4.08 L, Hgb 10.3 L, Hct 34.3 L, MCV 84.1, MCH 25.2 L, MCHC 30.0 L, RDW Std Deviation 49.9 H, RDW Coeff of April 16.2 H, Plt Count 268, MPV 9.9, Immature Gran % (Auto) 0.500, Neut % (Auto) 61.8, Lymph % (Auto) 23.5, [place] % (Auto) 10.6 H, Eos % (Auto) 2.9, Baso % (Auto) 0.7, Absolute Neuts (auto) 3.4, Absolute Lymphs (auto) 1.29, Nucleated RBC % 0, Sodium 143, Potassium 4.2, Chloride 113 H, Carbon Dioxide 27.0, Anion Gap 3 L, BUN 17, Creatinine 0.96, Estim Creat Clear Calc 36.37, Est GFR (MDRD) Af Amer 73, Est GFR (MDRD) Non-Af 61, BUN/Creatinine Ratio 17.8, Glucose 139 H, Calcium 8.7 11/22/22 13:38: Urine Color Yellow, Urine Clarity Sl. Cloudy, Urine pH 5.0, Ur Specific [place] 1.025, Urine Protein 30 H, Urine Glucose (UA) Normal, Urine Ketones Negative, Urine Occult Blood 50 H, Urine Nitrite Negative, Urine Bilirubin Negative, Urine Urobilinogen Normal, Ur Leukocyte Esterase 25 H, UrineRBC 0-5 SEEN, Urine WBC 0-5 SEEN, Ur Squamous Epith Cells 0 SEEN, Urine Bacteria0 SEEN, Urine Mucus 0 SEEN Clinical Impression(s) from Imaging Studies Brain CT 11/22/22 13:08 IMPRESSION: Chronic involutional changes of the brain. Charges/Coding Visit Charges Inpatient E&M: 81122 Init Hosp L3 Procedures Hospitalists Procedures: 93696 Advncd Care Plan 30 Min 11/22/221724 <Electronically signed by Óscar Craft MD> Cosigner Signature (if applicable): CC: Dr. Óscar Craft MD; Dr. Alexi Morin MD~ Signed ADDENDUM by Dr. Óscar Craft MD on 11/22/22 at 1945 Addendum Chronic right leg swelling but left leg swelling is more recent. Bilateral venous duplex ordered. 11/22/221944<Electronically signed by Óscar Craft MD> Cosigner Signature (if applicable): cc: Dr. Óscar Craft MD; Dr. Alexi Morin MD ~* Signed [facility] [place] Work Phone: 1(387) 191-971708-02-2023 Discharge summary Author Campos Tomlin [facility] [place] November 22, 2022 5:53pm Note Date/Time November 22, 2022 4:4 5pm [facility] Medical Records Department [address] [place] [address] Emergency Department Summary 11/22/22 MR#: [id number] Acct: [id number] Name: GLORY SANTOS Rep #:[id number] : 1945 77 From: Campos Chapman PCP: Dr. Alexi Morin MD Status:ADM I NO Location: [place] [address] HPI History of Present Illness Chief Complaint: Dizziness Informant: patient Onset/Context/Timing Onset: Yesterday Context: Sudden Onset Timing: Continuous Quality: Spinning Location: Head Worsened by: Laying down Relieved by: Nothing Narrative Narrative: Patient presents with dizziness that began last night. Patient states she woke up in the middle of the night to go to the bathroom. Patient states she startedfeeling dizzy and the room was spinning at that time. Patient states it has been constant throughout the day today. Patient states she was able to ambulatewith her 's walker to the bathroom. Patient states she was able to go back to sleep. Patient states that when she woke up today the spinning sensation was still there. Patient states it is worse whenever she lays down. Patient does admit to a mild headache. Patient states this is over the occipital area. Patient denies any fevers or chills. Patient denies any hearing changes or tinnitus. [facility] Medical History Arthritis Atherosclerosis of c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 pectoris Atrial fibrillation Back pain Bilateral edema of lower extremity Bone fracture Breast lump in female Cardiac arrest Cataracts, bilateral Chronic anticoagulation Chronic venous insufficiency of lower extremity Contusion of right lower leg, sequela Coronary artery disease Depression Esophageal stenosis Fibromyalgia Gastroesophageal reflux disease Generalized osteoarthritis GERD (gastroesophageal reflux disease) Hemorrhoids History of back problems History of left heart catheterization (LHC) (~07/22/21) HTN (hypertension) Hyperlipidemia Hypokalemia Incontinence Iron deficiency anemia Left breast lump Mass of soft tissue Myocardial infarct Neuropathy of right lower extremity Obesity Osteoarthritis of knee Rheumatoid arthritis Shortness of breath Shoulder pain UTI (urinary tract infection) Vitamin deficiency Home Medications nitroglycerin 0.4 mg sublingual tablet 0.4 mg sublingual Q5M PRN Cardiac/Chest Pain #1 BOTTLE 12/05/20 [Rx Last Taken 11/08/22] atorvastatin 40 mg tablet 40 mg PO QHS Cholestrol #90 tabs 01/16/22 [Rx Last Taken 11/21/22] cholecalciferol (vitamin D3) 25 mcg (1,000 unit) tablet 25 mcg PO DAILY SUPPLEMENT 02/28/22 [History Last Taken 11/22/22] apixaban 5 mg tablet (Eliquis) 5 mg PO BID BLOOD THINNER #180 tabs 03/20/22 [Rx Last Taken 11/22/22] losartan 50 mg tablet 50 mg PO DAILY BLOO PESSURE #90 tabs 06/06/22 [Rx Last Taken 11/22/22] potassium chloride 10 mEq tablet,extended release 10 meq PO DAILY SUPPLEMENT 07/06/22 [History Last Taken 11/22/22] metoprolol succinate 25 mg tablet,extended release 24 hr 25 mg PO QHS BLOOD PRESSURE #180 tabs 08/14/22 [Rx Last Taken 11/21/22] isosorbide mononitrate 60 mg tablet,extended release 24 hr 60 mg PO DAILY HEART #90 tabs 08/21/22 [Rx Last Taken 11/22/22] sucralfate 1 gram tablet 1 g PO QAC ULCERS #90 tabs 10/26/22 [Rx Last Taken 11/22/22] vibegron 75 mg tablet (Gemtesa) 75 mg PO DAILY OVERACTIVE BLADDER 11/15/22 [History Last Taken 11/22/22] amlodipine 2.5 mg tablet 2.5 mg PO DAILY BLOOD PRESSURE 11/22/22 [History Last Taken 11/22/22] ascorbic acid (vitamin C) 500 mg tablet (Vitamin C) 500 mg PO QPM SUPPLEMENT 11/22/22 [History Last Taken 11/21/22] methenamine hippurate 1 gram tablet 1 g PO DAILY UTI PREVENTION 11/22/22 [History Last Taken 11/22/22] pantoprazole 40 mg tablet,delayed release (Protonix) 40 mg PO DAILY ACID REFLUX 11/22/22 [History Last Taken 11/22/22] Allergy/AdvReac Type Severity Reaction Status Date / Time bee pollen Allergy Anaphylaxis Verified 11/22/22 12:08 latex Allergy Swelling Verified 11/22/22 12:08 morphine Allergy Other Verified 11/22/22 12:08 Penicillins Allergy Hives Verified 11/22/22 12:08 ranolazine AdvReac Intermediate Dizzy and Verified 11/22/22 12:08 Lightheaded hydrocodone bitartrate AdvReac Abd Verified 11/22/22 12:08 [From Vicodin] cramps/diarrhea Family History Father Diabetes Heart disease Hypertension CVA (cerebral vascular accident) Parkinson disease Mother Breast cancer Hypertension Grandmother Cancer pancreatic cancer Ovarian cancer Son Anesthesia complication Brother Asthma Arthritis Diabetes Respiratory disease Grandfather Lung cancer CVA (cerebral vascular accident) Surgical History Hematoma history bilateral breast biopsies History of bilateral knee replacement History of cataract surgery History of coronary artery stent placement (11/16/20) History of hysterectomy History of laparoscopic cholecystectomy History of left breast biopsy (~11/2017) History of repair of right rotator cuff History of tonsillectomy and adenoidectomy Hx of appendectomy Social History household members: spouse Smoking Status: Never smoker alcohol intake: never substance use type: does not use caffeine: Yes Type: carbonated beverages Number of servings: 1 and coffee Number of servings: 1 additional social history: DOES NOT USE IBUPROFEN ROS ROS ED Constitutional Constitutional ED: Denies chills or fever(s) Eyes Eyes: Denies blurry vision or change in vision ENT ENT ED: Denies rhinorrhea or sore throat Cardiovascular Cardiovascular: Denies chest pain or palpitations Respiratory/Chest Respiratory/Chest: Denies cough or dyspnea Gastrointestinal Gastrointestinal: Denies nausea or vomiting Genitourinary Genitourinary ED: Denies dysuria or hematuria Musculoskeletal Musculoskeletal: Denies back pain or neck pain Integumentary Denies abscess or rash Neurologic Neurologic: Reports headache(s); Denies weakness Allergic/Immunologic Allergic/Immunologic ED: Denies mouth swelling or urticaria EXAM Physical Exam Const Vital Signs: 11/22/22 12:05 11/22/22 12:24 11/22/22 12:26 Temperature 98 F Temperature Source Temporal Pulse Rate 72 74 Pulse Rate [Lying] Pulse Rate [Sitting (for 1 minute prior to obtaining)] Pulse Rate [Standing (for 1 minute prior to obtaining)] Respiratory Rate 16 13 Respiratory Effort Short of Breath Respiratory Pattern Normal Blood Pressure 138/71 H 147/77 H Blood Pressure [Lying] Blood Pressure [Sitting (for 1 minute prior to obtaining)] Blood Pressure [Standing (for 1 minute prior to obtaining)] Blood Pressure Mean 93 100 Blood Pressure Mean [Lying] Blood Pressure Mean [Sitting (for 1 minute prior to obtaining)] Blood Pressure Mean [Standing (for 1 minute prior to obtaining)] Pulse Ox 97 97 Oxygen Delivery Method Room Air Room Air 11/22/22 14:04 Temperature Temperature Source Pulse Rate Pulse Rate [Lying] 72 Pulse Rate [Sitting (for 1 minute prior to obtaining)] 73 Pulse Rate [Standing (for 1 minute prior to obtaining)] 76 Respiratory Rate Respiratory Effort Respiratory Pattern Blood Pressure Blood Pressure [Lying] 128/71 H Blood Pressure [Sitting (for 1 minute prior to obtaining)] 131/76 H Blood Pressure [Standing (for 1 minute prior to obtaining)] 135/72 H Blood Pressure Mean Blood Pressure Mean [Lying] 90 Blood Pressure Mean [Sitting (for 1 minute prior to obtaining)] 94 Blood Pressure Mean [Standing (for 1 minute prior to obtaining)] 93 Pulse Ox Oxygen Delivery Method Positive well nourished and well developed General Appearance ED: well developed and NAD HEENT Reports moist mucous membranes Eyes PERRL and EOMs intact bilaterally Eyes Narrative: There is nystagmus with right lateral gaze. Neck supple and no JVD Resp normal respiratory effort and clear to auscultation bilaterally Cardio regular rate and regular rhythm GI non-tender and non-distended Palpation: soft Neuro oriented x3, CN's II-XII intact bilaterally and no sensory deficits noted Sensorium / Orientation: alert Motor Exam: strength 5/5 throughout Psych mental status grossly normal MDM MDM MDM Narrative Medical decision making narrative: Differential diagnosis includes vertigo, labyrinthitis, stroke, intracranial bleeding, anemia, electrolyte abnormality, hyperglycemia, hypoglycemia, and urinary tract infection. CT scan of the brain will be obtained to assess for stroke or intracranial bleeding. Basic metabolic profile will be obtained to assess for electrolyte abnormality and renal function. CBC will be obtained to assess for leukocytosis and anemia. Urinalysis will be obtained to assess for urinary tract infection and hematuria. Lab Data Attestation: I reviewed the patient's lab results. Lab results narrative: CBC was reviewed. There is a slight anemia with a hemoglobin of 10.3 and hematocrit 34.3. This is stable compared to previous results. Basic metabolic profile was reviewed and was essentially within normal limits. Urinalysis was reviewed. There is no evidence of urinary tract infection or hematuria. Labs: Laboratory Results - last 24 hr 11/22/22 11/22/22 13:20 13:38 WBC 5.5 RBC 4.08 L Hgb 10.3 L Hct 34.3 L MCV 84.1 MCH 25.2 L MCHC 30.0 L RDW Std Deviation 49.9 H RDW Coeff of April 16.2 H Plt Count 268 MPV 9.9 Immature Gran % (Auto) 0.500 Neut % (Auto) 61.8 Lymph % (Auto) 23.5 [place] % (Auto) 10.6 H Eos % (Auto) 2.9 Baso % (Auto) 0.7 Absolute Neuts (auto) 3.4 Absolute Lymphs (auto) 1.29 Nucleated RBC % 0 Sodium 143 Potassium 4.2 Chloride 113 H Carbon Dioxide 27.0 Anion Gap 3 L BUN 17 Creatinine 0.96 Estim Creat Clear Calc 36.37 Est GFR (MDRD) Af Amer 73 Est GFR (MDRD) Non-Af 61 BUN/Creatinine Ratio 17.8 Glucose 139 H Calcium 8.7 Urine Color Yellow Urine Clarity Sl. Cloudy Urine pH 5.0 Ur Specific [place] 1.025 Urine Protein 30 H Urine Glucose (UA) Normal Urine Ketones Negative Urine Occult Blood 50 H Urine Nitrite Negative Urine Bilirubin Negative Urine Urobilinogen Normal Ur Leukocyte Esterase 25 H Urine RBC 0-5 SEEN Urine WBC 0-5 SEEN Ur Squamous Epith Cells 0 SEEN Urine Bacteria 0 SEEN Urine Mucus 0 SEEN Radiography Diagnostic Testing: Clinical Impression(s) from Imaging Studies Brain CT 11/22/22 13:08 IMPRESSION: Chronic involutional changes of the brain. Electronically Signed: Peter Davidson MD at 14:01 EDT , CT scan of the brain was obtained. There is no acute intracranial abnormality. This was interpreted by the radiologist and was also independently reviewed by myself. EKG Initial EKG: Interpretation: No Acute Injury Pattern and Atrial Fibrillation (80) Comments: EKG was obtained. On my independent interpretation, shows normal sinus rhythm with a rate of 80 with frequent PACs. PA interval was approximately 160 ms. QRS interval was normal at 74 ms. QTc interval was normal at 495 ms. [place] was normal. There are no acute ST or T wave changes noted. Prior EKG tracings: available for review Prior: Unchanged (10/09/2022) Management Discussion w/another healthcare provider: Hospitalist Treatment and Re-Evaluation :: Patient was given a dose of Valium initially. Orthostatic vital signs were obtained and were negative. Patient was given a dose of meclizine. Patient still had no improvement of her dizziness with this. Keyanna maneuvers were attempted. Patient had no improvement of her symptoms after Keyanna maneuvers. Case was discussed with the hospitalist. He will admit the patient for observation. Patient understood and was agreeable with the plan. All questionswere answered. Discharge Plan Dx/Rx/DC Orders Clinical Impression: Dizziness, Vertigo Disposition Disposition: Acute Care Hospital [facility] What to do if you have Problems For any increased pain, shortness of breath, bleeding, nausea or vomiting, chestpain, or any unexpected problems, contact your Primary Care Provider. Call [facility] ([phone]) or report to the closest Emergency Room. Call 911 if necessary. 11/22/22 2294 <Electronically signed by Campos Tomlin DO> Andrzej Signature (if applicable): CC: Dr. Alexi Morin MD ~ Signed [facility] Work Phone: 1(440) 620-659312-03-2022 [facility]12-02-2022 [facility]07-31-2022 Hospital Discharge instructions Patient Education 11/20/2021 16:32:28 Dehydration (Adult) [...] younger than 18 and have a fever. Asp irin raises the chance for severe liver injury. [...] of 100.4 F (38 C) or higher [id number] [employer]. [address] [place] [address], [place] [address]. All rights reserved. This information is not intended as a substitute for professional medical care. Always follow yourhealthcare professional's instructions. Follow Up Care 11/20/2021 15:12:31 With:JOSHUA MORIN MD Address: [facility]/[address] [place] [address]- When:2-4 days [facility] 07-31-2022 Emergency department Discharge summary Discharge Instructions Thank you for allowing [facility] to assist you with your healthcare needs. The following is importantdischarge information regarding your hospital visit. Diagnosis from Today's Visit Dehydration Headache Syncope attack What to Do Next Instructions from Your Care Team No qualifying data available. Post Acute Orders No qualifying data available. You Need to Schedule the Following Appointments Follow Up with JOSHUA MORIN MD When Within 2-4 days Where: [facility] [place] [address]- Allergies NKA Medications Please ask your primary doctor or pharmacist before taking any other medication not listed, including over the counter drugs, herbal medications, vitamins and or supplements as they may interact withyour home medications. What When Instructions Last Dose [...] younger than 18 and have a fever. Asp irin raises the chance for severe liver injury. [...] of 100.4 F (38 C) or higher [id number] [employer]. [address] [place] [address], [place] [address]. All rights reserved. This information is not intended as a substitute for professional medical care. Always follow yourhealthcare professional's instructions. Additional Information VACCINATE! IT SAVES LIVES! Members of the community who have not yet received the COVID-19 vaccine and would like to receive it can visit one of [facility] vaccine clinics. There are many vaccine clinic locations within the [facility]. For locations and available times, please visit [email or web address]. It is important to note that some COVID mobile vaccine clinics are held outdoors and may be canceled in rainy orstormy conditions. To learn more about pediatric vaccinations (ages 5-11), we invite you to visit the [facility] webpage. [email or web address] learn more about the COVID-19 vaccine, we invite you to visit the [facility] website for a list of frequently asked questions. [email or web address] [employer] Patient Portal Access Instructions: Stay connected with your healthcare team and access your personal medical information anytime with the [employer] Patient Portal. If you would like a full copy of your medical records please contact the [facility] Medical Records Department Sunday through Sunday between 8a.m. and 4:30p.m. Please follow the directions below to access the portal: 1.Access the email account you provided upon registration to the hospital.2.Look for an invitation email from [facility].3.Open the email and access the invitation link: Accept Invitation to [employer]4.Fill in the required phillip to create your account. Sign into [email or web address] with your username and password that you [...] you will allow to register on the [employer] Patient Portal for access to your information. You can also access the [employer] Patient Portal on the Kwan[employer] samantha. Simply click on Health Records under [employer] and then click on the [facility] logo. HOW TO SAFELY DISPOSE OF PRESCRIPTION MEDICATIONS Please use one of the following methods to safely dispose of your unused medications. 1.Use a drug disposal kit: the drug disposal pouch allows you to safely discard your old and unuseddrugs. Ask your nurse to give you one when you are discharged.2.Visit a local take-back location: Many local pharmacies and police departments have programs that collect old and unwanted prescriptiondrugs. Call your local pharmacy or go to http://[employer].EnzymeRx/4A1Nz3b to find one close to you.3.Make use of household items: Use cat litter or old coffee grounds to dispose medications if other options arenot available. Mix your drugs with these household products, seal them in an airtight container andthrow it into the garbage. Call [facility]: [phone] to be sure your drugs can be [...] drowsiness, such as benzodiazepines, also known as benzos,including diazepam and alprazolam, muscle relaxants or sleep aids. Never sell or share prescriptionopioids. This is illegal. Store opioids in a secure place and out of reach of others (including children, family, friends and visitors). The last page(s) of this document has been signed and retained as a CHART COPY Signatures Patient Education Materials Dehydration (Adult) Medication Leaflets My discharge plan and instructions have been reviewed and explained to me and ITOM DIANA understand my current condition and have read and understand these discharge instructions. I have received a written copy of the plan/instructions. If I have questions, I am aware that I should contact my d octor. 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 Signature: Date/Time: Relationship to Patient: Witness Name/Signature: Date/Time: [facility]03-31-2022 [facility] 11-16-2020 Evaluation note* Diagnosis Onset Date Resolution Status Atherosclerosis of c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 pectoris acute Dizziness acute History of coronary artery stent placement November 16, 2020 acute Ischemic cardiomyopathy acut e Atrial fibrillation chronic HTN (hypertension) chronic Hyperlipidemia chronic History of coronary artery stent placement November 16, 2020 acute Atrial fibrillation chronic Diastolic dysfunction chroni c HTN (hypertension) chronic Hyperlipidemia [facility] Work Phone: [phone]) 483-832607-27-2021 Evaluation note* Diagnosis Onset Date Resolution Status Atherosclerosis of c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 pectoris acute Dizziness acute History of coronary artery stent placement November 16, 2020 acute Ischemic cardiomyopathy acut e Atrial fibrillation chronic HTN (hypertension) chronic Hyperlipidemia chronic History of coronary artery stent placement November 16, 2020 acute Atrial fibrillation chronic Diastolic dysfunction chroni c HTN (hypertension) chronic Hyperlipidemia chronic Atherosclerosis of c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 pectoris acute DELU[place] (dyspnea on exertion) ac [place] Palpitations acute Atrial fibrillation chronic HTN (hypertension) chronic Hyperlipidemia [facility] Work Phone: 1(871) 698-489707-27-2021 Evaluation note* Diagnosis Onset Date Resolution Status History of coronary artery stent placement November 16, 2020 acute Atrial fibrillation chronic Diastolic dysfunction chroni c HTN (hypertension) chronic Hyperlipidemia chronic Atherosclerosis of c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 pectoris acute [place] (dyspnea on exertion) ac [place] Palpitations acute Atrial fibrillation chronic HTN (hypertension) chronic Hyperlipidemia chronic Chest pain acute Coronary artery disease acut e [place] (dyspnea on exertion) ac [place] History of coronary artery stent placement November 16, 2020 acute Ischemic cardiomyopathy acut e Palpitations acute Atrial fibrillation chronic HTN (hypertension) chronic Hyperlipidemia chronic [place] (dyspnea on exertion) ac [place] Obesity acute [facility] Work Phone: [phone]) [phone] Evaluation note* Diagnosis Onset Date Resolution Status History of coronary artery stent placement November 16, 2020 acute Atrial fibrillation chronic Diastolic dysfunction chroni c HTN (hypertension) chronic Hyperlipidemia chronic Atherosclerosis of c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 pectoris acute [place] (dyspnea on exertion) ac [place] Palpitations acute Atrial fibrillation chronic HTN (hypertension) chronic Hyperlipidemia chronic Chest pain acute Coronary artery disease acut e [place] (dyspnea on exertion) ac [place] History of coronary artery stent placement November 16, 2020 acute Ischemic cardiomyopathy acut e Palpitations acute Atrial fibrillation chronic HTN (hypertension) chronic Hyperlipidemia chronic [place] (dyspnea on exertion) ac [place] Obesity acute [place] (dyspnea on exertion) [place] [facility] Work Phone: [phone]) 618-210707-27-2021 Evaluation note* Diagnosis Onset Date Resolution Status Chest pain acute Coronary artery disease acut e [place] (dyspnea on exertion) ac [place] History of coronary artery stent placement November 16, 2020 acute Palpitations acute Atrial fibrillation chronic HTN (hypertension) chronic Hyperlipidemia chronic Ischemic cardiomyopathy reso lved [place] (dyspnea on exertion) [place] Obesity acute [place] (dyspnea on exertion) [place] Chest pain acute Coronary artery disease acut e [place] (dyspnea on exertion) ac [place] History of coronary artery stent placement November 16, 2020 acute Palpitations acute Atrial fibrillation chronic HTN (hypertension) chronic Hyperlipidemia chronic Ischemic cardiomyopathy reso lved [facility] Work Phone: [phone]) 630-688607-27-2021 Evaluation note* Diagnosis Onset Date Resolution Status [place] (dyspnea on exertion) ac [place] Chest pain acute Coronary artery disease acut e [place] (dyspnea on exertion) ac [place] History of coronary artery stent placement November 16, 2020 acute Palpitations acute Atrial fibrillation chronic HTN (hypertension) chronic Hyperlipidemia chronic Ischemic cardiomyopathy reso lved Mastodynia of left breast [place] [facility] Work Phone: [phone]) [phone] Evaluation note* Diagnosis Onset Date Resolution Status Chest pain acute Coronary artery disease acut e [place] (dyspnea on exertion) ac [place] History of coronary artery stent placement November 16, 2020 acute Palpitations acute Atrial fibrillation chronic HTN (hypertension) chronic Hyperlipidemia chronic Ischemic cardiomyopathy reso lved Mastodynia of left breast [place] Chest pain acute Coronary artery disease acut e [place] (dyspnea on exertion) [place] History of coronary artery stent placement November 16, 2020 acute Hypersomnolence acute Palpitations acute Atrial fibrillation chronic HTN (hypertension) chronic Hyperlipidemia chronic Ischemic cardiomyopathy reso lved [facility] Work Phone: [phone]) [phone] Evaluation note* Diagnosis Onset Date Resolution Status Chest pain acute Coronary artery disease acut e [place] (dyspnea on exertion) [place] History of coronary artery stent placement November 16, 2020 acute Palpitations acute Atrial fibrillation chronic HTN (hypertension) chronic Hyperlipidemia chronic Ischemic cardiomyopathy reso lved Mastodynia of left breast [place] Chest pain acute Coronary artery disease acut e [place] (dyspnea on exertion) [place] History of coronary artery stent placement November 16, 2020 acute Hypersomnolence acute Palpitations acute Atrial fibrillation chronic HTN (hypertension) chronic Hyperlipidemia chronic Ischemic cardiomyopathy reso lved Chest pain acute HTN (hypertension) [facility] Work Phone: [phone]) 178-841007-27-2021 Evaluation note* Diagnosis Onset Date Resolution Status Chest pain acute Coronary artery disease acut e [place] (dyspnea on exertion) [place] History of coronary artery stent placement November 16, 2020 acute Palpitations acute Atrial fibrillation chronic HTN (hypertension) chronic Hyperlipidemia chronic Ischemic cardiomyopathy reso lved Mastodynia of left breast [place] Chest pain acute Coronary artery disease acut e [place] (dyspnea on exertion) [place] History of coronary artery stent placement November 16, 2020 acute Hypersomnolence acute Palpitations acute Atrial fibrillation chronic HTN (hypertension) chronic Hyperlipidemia chronic Ischemic cardiomyopathy reso lved Chest pain acute Chronic anticoagulation acut e Coronary artery disease acut e Dysphagia acute Esophageal stenosis acute Atrial fibrillation chronic GERD (gastroesophageal reflux disease) chronic HTN (hypertension) [facility] Work Phone: [phone]) [phone] Evaluation note* Diagnosis Onset Date Resolution Status Mastodynia of left breast [place] (dyspnea on exertion) ac [place] History of coronary artery stent placement November 16, 2020 acute Hypersomnolence acute Palpitations acute Hyperlipidemia chronic Chest pain resolved Ischemic cardiomyopathy reso lved Chest pain resolved Dysphagia resolved Esophageal stenosis resolved [place] (dyspnea on exertion) ac [place] Fatigue acute History of coronary artery stent placement November 16, 2020 acute Hypersomnolence acute Palpitations acute Hyperlipidemia chronic Ischemic cardiomyopathy reso lved [facility] Work Phone: [phone]) [phone] Evaluation note* Diagnosis Onset Date Resolution Status [place] (dyspnea on exertion) ac [place] History of coronary artery stent placement November 16, 2020 acute Hypersomnolence acute Palpitations acute Hyperlipidemia chronic Chest pain resolved Ischemic cardiomyopathy reso lved Chest pain resolved Dysphagia resolved Esophageal stenosis resolved [place] (dyspnea on exertion) [place] Fatigue acute History of coronary artery stent placement November 16, 2020 acute Hypersomnolence acute Palpitations acute Hyperlipidemia chronic Ischemic cardiomyopathy reso lved [facility] Work Phone: [phone]) [phone] Evaluation note* Diagnosis Onset Date Resolution Status [place] (dyspnea on exertion) [place] Fatigue acute History of coronary artery stent placement November 16, 2020 acute Hypersomnolence acute Palpitations acute Hyperlipidemia chronic Ischemic cardiomyopathy reso lved Chest pain acute Fatigue acute History of coronary artery stent placement November 16, 2020 acute Palpitations acute Hyperlipidemia chronic Ischemic cardiomyopathy reso lved Back pain acute [facility] Work Phone: [phone]) [phone] Evaluation note* Diagnosis Onset Date Resolution Status Chest pain acute Fatigue acute History of coronary artery stent placement November 16, 2020 acute Palpitations acute Hyperlipidemia chronic Ischemic cardiomyopathy reso lved Back pain acute Dysphagia chronic Reflux esophagitis [facility] Work Phone: 1([phone]) [phone] Evaluation note* Diagnosis Onset Date Resolution Status Chest pain acute History of coronary artery stent placement November 16, 2020 acute Palpitations acute Fatigue chronic HTN (hypertension) chronic Hyperlipidemia chronic Ischemic cardiomyopathy reso lved Back pain acute Dysphagia chronic Reflux esophagitis chronic Bilateral edema of lower extremity chronic Coronary artery disease 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 Dyslipidemia chronic Epigastric discomfort chroni c Fatigue chronic HTN (hypertension) chronic Obesity chronic [facility] Work Phone: 1([phone]) [phone] History of Past illness Narrative* Problem Noted Date Diagnosed Date Resolved Date Lump or mass in breast 09/02/200912/30 Abnormal mammogram, unspecified 11/06/2008 12/30/2009 documented as of this encounter (statuses as of 06/17/2023) [facility] note Author Shaheen Hackett [facility] November 23, 2022 3:27pm Note Date/Time November 23, 2022 3:2 7pm [facility] Medical Records Department [address] [place] [address] Counseling Note - Pharmacy 11/23/22 1523 MR#: [id number] Acct: [id number] Name: LGORY SANTOS Rep #:[id number] : 1945 77 From: Shaheen Hackett PCP: Dr. Alexi Morin MD Status:ADM I NO Y Location: [place] [address] Pharmacy [facility] Service has performed discharge medication reconciliation and counseling for this patient. The patient's discharge medication list was reviewed for discrepancies and discrepancies were resolved. The patient was counseled on the following discharge medications and changes in medications for homegoing were reviewed. The Reason for Use, instructions for use, and potential side effects were reviewed for all new medications. The patient's questions regarding all of their medications were answered. 1. Ondansetron 4 mg PO Q4H PRN nausea/vomting 2. Diazepam 2 mg PO daily PRN Dizziness/Vertigo The patient was able to verbally demonstrate an understanding of their dischargemedications. The patient was counselled on her medications by director pharmacy services Leisa. Medications at Discharge Home Medications nitroglycerin 0.4 mg sublingual tablet 0.4 mg sublingual Q5M PRN Cardiac/Chest Pain #1 BOTTLE 12/05/20 atorvastatin 40 mg tablet 40 mg PO QHS Cholestrol #90 tabs 01/16/22 cholecalciferol (vitamin D3) 25 mcg (1,000 unit) tablet 25 mcg PO DAILY SUPPLEMENT 02/28/22 apixaban 5 mg tablet (Eliquis) 5 mg PO BID BLOOD THINNER #180 tabs 03/20/22 losartan 50 mg tablet 50 mg PO DAILY BLOO PESSURE #90 tabs 06/06/22 potassium chloride 10 mEq tablet,extended release 10 meq PO DAILY SUPPLEMENT 07/06/22 metoprolol succinate 25 mg tablet,extended release 24 hr 25 mg PO QHS BLOOD PRESSURE #180 tabs 08/14/22 isosorbide mononitrate 60 mg tablet,extended release 24 hr 60 mg PO DAILY HEART #90 tabs 08/21/22 sucralfate 1 gram tablet 1 g PO QAC ULCERS #90 tabs 10/26/22 vibegron 75 mg tablet (Gemtesa) 75 mg PO DAILY OVERACTIVE BLADDER 11/15/22 amlodipine 2.5 mg tablet 2.5 mg PO DAILY BLOOD PRESSURE 11/22/22 ascorbic acid (vitamin C) 500 mg tablet (Vitamin C) 500 mg PO QPM SUPPLEMENT 11/22/22 methenamine hippurate 1 gram tablet 1 g PO DAILY UTI PREVENTION 11/22/22 pantoprazole 40 mg tablet,delayed release (Protonix) 40 mg PO DAILY ACID REFLUX 11/22/22 diazepam 2 mg tablet (Valium) 2 mg PO UD PRN dizziness or vertigo #20 tabs 11/23/22 ondansetron HCl 4 mg tablet 4 mg PO Q6H PRN nausea and vomiting #15 tabs 11/23/22 11/23/22 1527 <Electronically signed by Shaheen ribera> Date _ Shaheen Donnelly Signature (if applicable): Date CC: ~ Signed [facility] Work Phone: Evaluation + Plan note No data available for this section [facility] Evaluation note* Diagnosis Onset Date Resolution Status Atherosclerosis of c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 pectoris acute DELUNA (dyspnea on exertion) ac [place] Palpitations acute Atrial fibrillation chronic HTN (hypertension) chronic Hyperlipidemia chronic Chest pain acute Coronary artery disease acut e DELUNA (dyspnea on exertion) ac [place] History of coronary artery stent placement November 16, 2020 acute Ischemic cardiomyopathy acut e Palpitations acute Atrial fibrillation chronic HTN (hypertension) chronic Hyperlipidemia chronic DELUNA (dyspnea on exertion) ac [place] Obesity acute DELUNA (dyspnea on exertion) ac [place] [facility] Work Phone: Evaluation note* Diagnosis Onset Date Resolution Status Chest pain resolved Dysphagia resolved Esophageal stenosis resolved DELUNA (dyspnea on exertion) ac [place] Fatigue acute History of coronary artery stent placement November 16, 2020 acute Hypersomnolence acute Palpitations acute Hyperlipidemia chronic Ischemic cardiomyopathy reso lved Chest pain acute Fatigue acute History of coronary artery stent placement November 16, 2020 acute Palpitations acute Hyperlipidemia chronic Ischemic cardiomyopathy reso lved [facility] Work Phone: Evaluation note* Diagnosis Onset Date Resolution Status Chest pain resolved Dysphagia resolved Esophageal stenosis resolved DELUNA (dyspnea on exertion) ac [place] Fatigue acute History of coronary artery stent placement November 16, 2020 acute Hypersomnolence acute Palpitations acute Hyperlipidemia chronic Ischemic cardiomyopathy reso lved Chest pain acute Fatigue acute History of coronary artery stent placement November 16, 2020 acute Palpitations acute Hyperlipidemia chronic Ischemic cardiomyopathy reso lved Back pain acute [facility] Work Phone: Evaluation note* Diagnosis Onset Date Resolution Status Back pain acute Dysphagia chronic Reflux esophagitis chronic Bilateral edema of lower extremity chronic Coronary artery disease 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 Dyslipidemia chronic Epigastric discomfort chroni c Fatigue chronic HTN (hypertension) chronic Obesity [facility] Work Phone: Evaluation note* Diagnosis Onset Date Resolution Status Dysphagia chronic Reflux esophagitis chronic Bilateral edema of lower extremity chronic Coronary artery disease 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 Dyslipidemia chronic Epigastric discomfort chroni c Fatigue chronic HTN (hypertension) chronic Obesity chronic Chest pain chronic Coronary artery disease 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 Dyslipidemia chronic HTN (hypertension) chronic Obesity [facility] Work Phone: Evaluation note* Diagnosis Onset Date Resolution Status Dysphagia chronic Reflux esophagitis chronic Bilateral edema of lower extremity chronic Coronary artery disease 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 Dyslipidemia chronic Epigastric discomfort chroni c Fatigue chronic HTN (hypertension) chronic Obesity chronic Chest pain chronic Coronary artery disease 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 Dyslipidemia chronic HTN (hypertension) chronic Obesity chronic Dizziness acute Vertigo acute Dyslipidemia [facility] Work Phone: Evaluation note* Diagnosis Onset Date Resolution Status Dysphagia chronic Reflux esophagitis chronic Bilateral edema of lower extremity chronic Coronary artery disease 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 Dyslipidemia chronic Epigastric discomfort chroni c Fatigue chronic HTN (hypertension) chronic Obesity chronic Chest pain chronic Coronary artery disease 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 Dyslipidemia chronic HTN (hypertension) chronic Obesity chronic Dizziness acute Vertigo acute Dyslipidemia chronic Dysphagia chronic Reflux esophagitis [facility] Work Phone: Evaluation note* Diagnosis Onset Date Resolution Status Dysphagia chronic Reflux esophagitis chronic Bilateral edema of lower extremity chronic Coronary artery disease 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 Dyslipidemia chronic Epigastric discomfort chroni c Fatigue chronic HTN (hypertension) chronic Obesity chronic Chest pain chronic Coronary artery disease 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 Dyslipidemia chronic HTN (hypertension) chronic Obesity chronic Dizziness acute Vertigo acute Dyslipidemia chronic Dysphagia chronic Reflux esophagitis chronic Bilateral edema of lower extremity chronic Coronary artery disease 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 Dyslipidemia chronic HTN (hypertension) chronic Obesity chronic Paroxysmal atrial fibrillation [facility] Work Phone: Evaluation note* Diagnosis Onset Date Resolution Status Bilateral edema of lower extremity chronic Coronary artery disease 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 Dyslipidemia chronic Epigastric discomfort chroni c Fatigue chronic HTN (hypertension) chronic Obesity chronic Chest pain chronic Coronary artery disease 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 Dyslipidemia chronic HTN (hypertension) chronic Obesity chronic Dizziness acute Vertigo acute Dyslipidemia chronic Dysphagia chronic Reflux esophagitis chronic Bilateral edema of lower extremity chronic Coronary artery disease 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 Dyslipidemia chronic HTN (hypertension) chronic Obesity chronic Paroxysmal atrial fibrillation [facility] Work Phone: Evaluation note* Diagnosis Onset Date Resolution Status Dysphagia chronic Reflux esophagitis chronic Bilateral edema of lower extremity chronic Coronary artery disease 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 Dyslipidemia chronic HTN (hypertension) chronic Obesity chronic Paroxysmal atrial fibrillation chronic Coronary artery disease 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 Dyslipidemia chronic HTN (hypertension) chronic Paroxysmal atrial fibrillation [facility] Work Phone: Evaluation note* Diagnosis Onset Date Resolution Status Bilateral edema of lower extremity chronic Coronary artery disease 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 Dyslipidemia chronic HTN (hypertension) chronic Obesity chronic Paroxysmal atrial fibrillation chronic Coronary artery disease 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 Dyslipidemia chronic HTN (hypertension) chronic Paroxysmal atrial fibrillation [facility] Work Phone: Evaluation note* Diagnosis Onset Date Resolution Status Coronary artery disease 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 Dyslipidemia chronic HTN (hypertension) chronic Paroxysmal atrial fibrillation chronic Coronary artery disease 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 Dyslipidemia chronic HTN (hypertension) chronic Paroxysmal atrial fibrillation [facility] Work Phone: Evaluation note* Diagnosis Rectal bleeding- Primary Hemorrhage of rectum and anus [facility] Onset Date Resolution Status Coronary artery disease 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 Dyslipidemia chronic HTN (hypertension) chronic Paroxysmal atrial fibrillation chronic Coronary artery disease 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 Dyslipidemia chronic HTN (hypertension) chronic 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 Coronary artery disease 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 Dyslipidemia chronic HTN (hypertension) chronic Paroxysmal atrial fibrillation [facility] Work Phone: Evaluation note* Diagnosis Onset Date Resolution Status Coronary artery disease 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 Dyslipidemia chronic HTN (hypertension) chronic 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 Coronary artery disease 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 HPI Narrative GLORY SANTOS, is a 77 F came to ED after she had sudden onset of dizziness and vertigo that started about 3 AM while she was trying to go to bathroom. At thattime she could not keep her balance, wobbly or stand erect therefore with the help of her and walker she went to bathroom. She states she does not feel weakness in her leg but could not balance herself. She she has mild blurryvision but denies diplopia, loss of vision/quadrantanopsia, change in speech or language or dysarthria. She has history of chronic esophageal dysphagia due to erosive esophagitis moderate Schatzki ring which required dilatation in March2022. She still cannot swallow regular food with sip of water. No recent fever or URI or UTI. The ED physician tried Keyanna's maneuver but she still has dizziness and vertigo. No nystagmus Vitals in the ED were in the normal range. No EKG done in ED therefore EKG ordered. Patient was further admitted. [facility] Medical History Arthritis Atherosclerosis of c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 pectoris Atrial fibrillation Back pain Bilateral edema of lower extremity Bone fracture Breast lump in female Cardiac arrest Cataracts, bilateral Chronic anticoagulation Chronic venous insufficiency of lower extremity Contusion of right lower leg, sequela Coronary artery disease Depression Esophageal stenosis Fibromyalgia Gastroesophageal reflux disease Generalized osteoarthritis GERD (gastroesophageal reflux disease) Hemorrhoids History of back problems History of left heart catheterization (LHC) (~07/22/21) HTN (hypertension) Hyperlipidemia Hypokalemia Incontinence Iron deficiency anemia Left breast lump Mass of soft tissue Myocardial infarct Neuropathy of right lower extremity Obesity Osteoarthritis of knee Rheumatoid arthritis Shortness of breath Shoulder pain UTI (urinary tract infection) Vitamin deficiency Home Medications nitroglycerin 0.4 mg sublingual tablet 0.4 mg sublingual Q5M PRN Cardiac/Chest Pain #1 BOTTLE 12/05/20 [Rx Last Taken 11/08/22] atorvastatin 40 mg tablet 40 mg PO QHS Cholestrol #90 tabs 01/16/22 [Rx Last Taken 11/21/22] cholecalciferol (vitamin D3) 25 mcg (1,000 unit) tablet 25 mcg PO DAILY SUPPLEMENT 02/28/22 [History Last Taken 11/22/22] apixaban 5 mg tablet (Eliquis) 5 mg PO BID BLOOD THINNER #180 tabs 03/20/22 [Rx Last Taken 11/22/22] losartan 50 mg tablet 50 mg PO DAILY BLOO PESSURE #90 tabs 06/06/22 [Rx Last Taken 11/22/22] potassium chloride 10 mEq tablet,extended release 10 meq PO DAILY SUPPLEMENT 07/06/22 [History Last Taken 11/22/22] metoprolol succinate 25 mg tablet,extended release 24 hr 25 mg PO QHS BLOOD PRESSURE #180 tabs 08/14/22 [Rx Last Taken 11/21/22] isosorbide mononitrate 60 mg tablet,extended release 24 hr 60 mg PO DAILY HEART #90 tabs 08/21/22 [Rx Last Taken 11/22/22] sucralfate 1 gram tablet 1 g PO QAC ULCERS #90 tabs 10/26/22 [Rx Last Taken 11/22/22] vibegron 75 mg tablet (Gemtesa) 75 mg PO DAILY OVERACTIVE BLADDER 11/15/22 [History Last Taken 11/22/22] amlodipine 2.5 mg tablet 2.5 mg PO DAILY BLOOD PRESSURE 11/22/22 [History Last Taken 11/22/22] ascorbic acid (vitamin C) 500 mg tablet (Vitamin C) 500 mg PO QPM SUPPLEMENT 11/22/22 [History Last Taken 11/21/22] methenamine hippurate 1 gram tablet 1 g PO DAILY UTI PREVENTION 11/22/22 [History Last Taken 11/22/22] pantoprazole 40 mg tablet,delayed release (Protonix) 40 mg PO DAILY ACID REFLUX 11/22/22 [History Last Taken 11/22/22] Allergy/AdvReac Type Severity Reaction Status Date / Time bee pollen Allergy Anaphylaxis Verified 11/22/22 12:08 latex Allergy Swelling Verified 11/22/22 12:08 morphine Allergy Other Verified 11/22/22 12:08 Penicillins Allergy Hives Verified 11/22/22 12:08 ranolazine AdvReac Intermediate Dizzy and Verified 11/22/22 12:08 Lightheaded hydrocodone bitartrate AdvReac Abd Verified 11/22/22 12:08 [From Vicodin] cramps/diarrhea Family History Father Diabetes Heart disease Hypertension CVA (cerebral vascular accident) Parkinson disease Mother Breast cancer Hypertension Grandmother Cancer pancreatic cancer Ovarian cancer Son Anesthesia complication Brother Asthma Arthritis Diabetes Respiratory disease Grandfather Lung cancer CVA (cerebral vascular accident) Surgical History Hematoma history bilateral breast biopsies History of bilateral knee replacement History of cataract surgery History of coronary artery stent placement (11/16/20) History of hysterectomy History of laparoscopic cholecystectomy History of left breast biopsy (~11/2017) History of repair of right rotator cuff History of tonsillectomy and adenoidectomy Hx of appendectomy Social History household members: spouse Smoking Status: Never smoker alcohol intake: never substance use type: does not use caffeine: Yes Type: carbonated beverages Number of servings: 1 and coffee Number of servings: 1 additional social history: DOES NOT USE IBUPROFEN ROS ROS Narrative Constitutional: Reports fatigue and weakness. No fever. HEENT: Dizziness and vertigo as described in HPI. Reports systems reviewed and no addt'l complaints, except as documented Respiratory/Chest: No acute shortness of breath or respiratory distress or wheezing. CVS: No acute chest pain or chest pressure or tightness. History of coronary artery stent and A-fib. Follows Dr. Almazan Gastrointestinal: Denies coffee ground emesis, hematemesis or vomiting Genitourinary: Denies burning urination or new urinary tract symptoms Musculoskeletal: Chronic degenerative arthritis. Denies acute joint pain or limited range of motion. No acute injury Neurologic: Denies seizure-like symptoms. Denies history of stroke. skin: Chronic right lower leg eschar, surgery done by Dr. De Dios for hematoma. No acute ulcer. Endocrinology: Reports systems reviewed and no addt'l complaints, except as documented Hematologic/Lymphatic: Reports systems reviewed and no addt'l complaints, exceptas documented Rest 14 ROS are negative except as mentioned in HPI Vital Signs Vital Signs Vital Signs: 11/22/22 12:05 11/22/22 12:24 11/22/22 12:26 Temperature 98 F Temperature Source Temporal Pulse Rate 72 74 Pulse Rate [Lying] Pulse Rate [Sitting (for 1 minute prior to obtaining)] Pulse Rate [Standing (for 1 minute prior to obtaining)] Respiratory Rate 16 13 Respiratory Effort Short of Breath Respiratory Pattern Normal Blood Pressure 138/71 H 147/77 H Blood Pressure [Lying] Blood Pressure [Sitting (for 1 minute prior to obtaining)] Blood Pressure [Standing (for 1 minute prior to obtaining)] Blood Pressure Mean 93 100 Blood Pressure Mean [Lying] Blood Pressure Mean [Sitting (for 1 minute prior to obtaining)] Blood Pressure Mean [Standing (for 1 minute prior to obtaining)] Pulse Ox 97 97 Oxygen Delivery Method Room Air Room Air 11/22/22 14:04 Temperature Temperature Source Pulse Rate Pulse Rate [Lying] 72 Pulse Rate [Sitting (for 1 minute prior to obtaining)] 73 Pulse Rate [Standing (for 1 minute prior to obtaining)] 76 Respiratory Rate Respiratory Effort Respiratory Pattern Blood Pressure Blood Pressure [Lying] 128/71 H Blood Pressure [Sitting (for 1 minute prior to obtaining)] 131/76 H Blood Pressure [Standing (for 1 minute prior to obtaining)] 135/72 H Blood Pressure Mean Blood Pressure Mean [Lying] 90 Blood Pressure Mean [Sitting (for 1 minute prior to obtaining)] 94 Blood Pressure Mean [Standing (for 1 minute prior to obtaining)] 93 Pulse Ox Oxygen Delivery Method Weight Weight: 212 lb 1.355 oz Body Mass Index (BMI) 41.4 Physical Exam Narrative General: Alert, Oriented x3, Cooperative HEENT: Atraumatic, PERRLA, EOMI, Normocephalic. No diplopia/quadrantanopsia/similar.. Field of vision intact. Oral: Oral mucosa dry. No Gingival or Mucosal Lesions/ Ulcerations Neck: Supple, No JVD, Negative Carotid Bruits Lungs: Air entry diminished in bilateral lung bases. No crepitation/rhonchi Cardiovascular: Regular rate, Regular Rhythm, Normal S1, Normal S2, No murmurs Abdomen: Bowel Sounds Present, Soft, Non Tender, Non-Distended : No renal angle tenderness. No suprapubic tenderness. Extremities: Chronic swelling of right lower leg, left lower leg is recent, Capillary Refill Less than 3 Seconds Skin: Chronic eschar on the right lower leg. No ulcer or rash. Musculoskeletal: No Tenderness to Palpation of Joints or Extremities. Degenerative arthritis of both knees and hips joint status post bilateral TKR Neurological: Cranial nerves II-XII grossly intact, DTR 2+/4. Muscle strength 5/5 at major joints. Finger-nose and heel chirinos test are negative. Psych/Mental Status: Normal Affect, Appropriate. Results Lab / Micro Data 11/22/22 13:20 11/22/22 13:20 Labs: Laboratory Results - last 24 hr 11/22/22 13:20: WBC 5.5, RBC 4.08 L, Hgb 10.3 L, Hct 34.3 L, MCV 84.1, MCH 25.2 L, MCHC 30.0 L, RDW Std Deviation 49.9 H, RDW Coeff of April 16.2 H, Plt Count 268, MPV 9.9, Immature Gran % (Auto) 0.500, Neut % (Auto) 61.8, Lymph % (Auto) 23.5, [place] % (Auto) 10.6 H, Eos % (Auto) 2.9, Baso % (Auto) 0.7, Absolute Neuts (auto) 3.4, Absolute Lymphs (auto) 1.29, Nucleated RBC % 0, Sodium 143, Potassium 4.2, Chloride 113 H, Carbon Dioxide 27.0, Anion Gap 3 L, BUN 17, Creatinine 0.96, Estim Creat Clear Calc 36.37, Est GFR (MDRD) Af Amer 73, Est GFR (MDRD) Non-Af 61, BUN/Creatinine Ratio 17.8, Glucose 139 H, Calcium 8.7 11/22/22 13:38: Urine Color Yellow, Urine Clarity Sl. Cloudy, Urine pH 5.0, Ur Specific [place] 1.025, Urine Protein 30 H, Urine Glucose (UA) Normal, Urine Ketones Negative, Urine Occult Blood 50 H, Urine Nitrite Negative, Urine Bilirubin Negative, Urine Urobilinogen Normal, Ur Leukocyte Esterase 25 H, UrineRBC 0-5 SEEN, Urine WBC 0-5 SEEN, Ur Squamous Epith Cells 0 SEEN, Urine Bacteria0 SEEN, Urine Mucus 0 SEEN Radiology Impression Brain CT 11/22/22 13:08 IMPRESSION: Chronic involutional changes of the brain. Electronically Signed: Peter Davidson MD at 14:01 EDT , Assessment & Plan Assessment/Plan (1) Vertigo: (2) Dyslipidemia: PLAN: Plan 1. Acute onset of dizziness and vertigo, loss of equilibrium probably BPPV but rule out a stroke: Patient is being admitted in PCU. PT OT and speech therapy ordered. Patient did not tolerate well Keyanna maneuver with ER physician. MRI brain without contrast ordered to rule out a stroke. If stroke is positive willneed further work-up including head and neck vascular study and echo. 2. History of chronic esophagitis and esophageal dysphagia/stenosis : Speech therapist ordered. The patient had EGD in March 2022 during previous admission which showed LA grade C erosive esophagitis treated with heater probe. Moderate schatzki ring; dilated, small hiatus hernia, gastric mucosal atrophy, normal first duodenum. Patient on PPI. Patient has follow-up coming with Dr. Friend in 2 weeks. 3. Coronary artery disease status post stent and chronic A-fib: Twelve-lead EKGreviewed shows A-fib, chronic 80/min QTc 495 ms.2D Echo on September 2021 shows EF 65%, mild MR, mild TR RVSP 31 mmHg. No acute chest pain or shortness of breath. 4. Chronic iron deficiency anemia: Hemoglobin 10.3, platelet count 268. Patient hemoglobin is is around baseline about 10.5 during previous admission 2021. 5 hypertension: Blood pressure is controlled. 6.chronic l A. fib on Eliquis: Continue Eliquis 5 mg twice daily. VTE prophylaxis: On Eliquis as mentioned above. Living will/advanced directive/end of life care: Patient does not have living will or advanced directive. She does not have designated power of divorce attorney for health. After discussion of benefits/risks procedures involved with full code,DNR CC arrest and DNR CC, the patient opted for full code. Patient does want artificial life support including intubation, tube feed, ventilator and/chest compression, central venous catheter, vasopressor and DC shock if needed Total time spent in [id number] encounter in discussion of advanced directive 17 minutes. Laboratory Results 11/22/22 13:20: WBC 5.5, RBC 4.08 L, Hgb 10.3 L, Hct 34.3 L, MCV 84.1, MCH 25.2 L, MCHC 30.0 L, RDW Std Deviation 49.9 H, RDW Coeff of April 16.2 H, Plt Count 268, MPV 9.9, Immature Gran % (Auto) 0.500, Neut % (Auto) 61.8, Lymph % (Auto) 23.5, [place] % (Auto) 10.6 H, Eos % (Auto) 2.9, Baso % (Auto) 0.7, Absolute Neuts (auto) 3.4, Absolute Lymphs (auto) 1.29, Nucleated RBC % 0, Sodium 143, Potassium 4.2, Chloride 113 H, Carbon Dioxide 27.0, Anion Gap 3 L, BUN 17, Creatinine 0.96, Estim Creat Clear Calc 36.37, Est GFR (MDRD) Af Amer 73, Est GFR (MDRD) Non-Af 61, BUN/Creatinine Ratio 17.8, Glucose 139 H, Calcium 8.7 11/22/22 13:38: Urine Color Yellow, Urine Clarity Sl. Cloudy, Urine pH 5.0, Ur Specific [place] 1.025, Urine Protein 30 H, Urine Glucose (UA) Normal, Urine Ketones Negative, Urine Occult Blood 50 H, Urine Nitrite Negative, Urine Bilirubin Negative, Urine Urobilinogen Normal, Ur Leukocyte Esterase 25 H, UrineRBC 0-5 SEEN, Urine WBC 0-5 SEEN, Ur Squamous Epith Cells 0 SEEN, Urine Bacteria0 SEEN, Urine Mucus 0 SEEN Clinical Impression(s) from Imaging Studies Brain CT 11/22/22 13:08 IMPRESSION: Chronic involutional changes of the brain. Charges/Coding Visit Charges Inpatient E&M: 50430 Init Hosp L3 Procedures Hospitalists Procedures: 41697 Advncd Care Plan 30 Min 11/22/22 1725 <Electronically signed by Óscar Craft MD> Cosigner Signature (if applicable): CC: Dr. Óscar Craft MD; Dr. Alexi Morin MD~ Signed [facility] Work Phone: History and physical note Author Scotty Friend [facility] February 06, 2023 2:12pm Note Date/Time February 06, 2023 2 :12pm [facility] Medical Records Department [address] [place] [id number] History & Physical Exam 02/06/23 1411 MR#: [id number] Acct: [id number] Name: GLORY SANTOS Rep #:[id number] : 1945 77 From: Scotty Greenfield DO PCP: Dr. Alexi Morin MD Status:REG S DC Location: [place] [address] History and Physical Date of Admission: 02/06/23 77 F who presents to the office today for *[facility] hospitalization .06.14-03.25.22 for management of chest pain, A.Fib, HTN, GERD and anemia. GI consulted 03.25.22 for dysphagia with EGD performed same day.Discharged with PPI 40mg BID. ? CTA Chest 03.24.22 mild scarring of lung bases. ? EGD 03.25.22 LA Grade C erosive esophagitis, heater probe; moderate Schatzki ring, Savary 51F; small hiatal hernia; gastric mucosal atrophy. OV 5.25.23 Continues to have difficulty with large bites of food or meats sticking when eating; this is occurring on a regular basis. Continues with reflux difficulty on a daily basis which she feels is terrible and will wake herduring the night. ? Upper GI SBFT 09.26.22 small sliding hiatal hernia; GERD. ? Gastric emptying study 10.10.22 47.03 minutes Contact 10.13. continues to have bad reflux and would like to increase PPI and start sucralfate. OV 8..23 continues to have foods stick in her mid/lower chest which occurs primarily with dry foods. Denies anxiety/depression and life stressors. ROS Const Constitutional: No anorexia, fatigue, fever(s), weight change or sleep problems Eyes Eyes: No change in vision ENT ENT: No abnormal hearing, difficulty swallowing, mouth lesions, tongue swelling or throat swelling Resp Respiratory: No cough or shortness of breath Cardio Cardiology: No chest pain at rest, chest pain with exertion, shortness of breathor dyspnea on exertion Gastro GI: No difficulty swallowing Genitourinary-Female: No difficulty urinating or burning urination Musc Musculoskeletal: No joint pain, joint swelling, muscle weakness or decreased muscle mass Skin Skin: No hair loss in leg, yellowing of the eye, itchy eyes, rash, skin ulcer orskin swelling Neuro Neurology: No abnormal hearing, abnormal movements, confusion, unsteady gait/balance or memory loss Psych Psychiatric: No anxiety, No confusion and No memory loss Endo Endocrine: No fatigue or weight change Aller/Imm Allergy/Immunologic: No itchy eyes, throat swelling or tongue swelling Tad/Lymp Hematologic/Lymphatic: No easy bleeding, easy bruising or enlarged lymph nodes Exam Const General: cooperative and comfortable Nutritional Appearance: average body habitus and well nourished [facility] Head: normal to inspection Ears: hearing grossly normal bilaterally Nose: external nose normal Face and sinus: normal facial exam Mouth: oral mucosae normal Throat: posterior oropharynx normal Eyes General: appearance normal, both eyes and all related structures Neck Neck: normal visual inspection Chest Chest palpation & inspection: normal inspection of the chest and normal palpation of entire chest wall Resp Effort & Inspection: normal respiratory effort Auscultation: Bilateral: Clear to Auscultation Cardio Palpation: normal PMI Rate: regular rate Rhythm: regular rhythm GI Inspection: normal to inspection Auscultation: normal bowel sounds Percussion: normal to percussion Palpation: no hepatosplenomegaly Skin General: no rashes or lesions noted Neuro General: patient alert Extrem General: normal to inspection Psych Affect: normal affect Quality Reporting Tobacco Screening ([facility] 138) Smoking Status: Never smoker Assessment and Plan Assessment and Plan (1) Dysphagia: Status: Chronic Qualifiers: Dysphagia type: esophageal phase Qualified Code(s): R13.19 - Other dysphagia Plan: . This dysphagia likely secondary to erosive esophagitis in the setting of esophageal motility disorder. We will repeat her upper endoscopy in the future because she is still having symptoms of esophageal dysphagia. 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 She is on pantoprazole once a day. We will increase it to twice a day her kidney function is normal. We will do this for approximately 8 weeks and then titrate down to 40 mg once a day Orders: Orders Esophageal Manometry 12/29/22 K21.00 - Gastro-esophageal reflux disease with esophagitis, without bleeding, R13.10 - Dysphagia, unspecified EGD 02/06/23 K21.00 - Gastro-esophageal reflux disease with esophagitis, withoutbleeding, R13.10 - Dysphagia, unspecified I have examined the patient and the H&P has been reviewed. There are no clinicalchanges since date of exam. 02/06/23 1412 <Electronically signed by Scotty Greenfield DO> Cosigner Signature (if applicable): CC: Dr. Alexi Morin MD; Scotty Greenfield DO~ Signed [facility] Work Phone: [facility] Work Phone: Hospital Discharge instructions Additional Instructions Please follow-up with your deliverer pharmacy.[facility] Work Phone: Note* PRINCESS STEPHEN MD: SIGN, VERIFY Event Display: EKG [ED AOH] - CV Authored Date: [id number] [facility] Reason for referral (narrative)No reason for referral information availableWSelect [facility] Work Phone: Summary Purpose Family History Relationship Condition Age at Onset Recorded Date/T azul father Diabetes mellitus Unknown Cardiac disease Unknown Hypertension Unknown Cerebrovascular accident (CVA) Unknown Parkinson's disease Unknown mother Malignant neoplasm of breast Unknown grandmother Malignant neoplasm Unknown Malignant neoplasm of ovary Unknown son Complication of anesthesia Unknown brother Asthma Unknown Arthritis Unknown Diabetes mellitus Unknown Disorder of respiratory system Unknown grandfather Malignant neoplasm of lung Unknown Advance Directives Advance Directive Response Recorded Date/ Time Name of Medical Power of Heel Reducer ? July 03, 2021 8:33am Advance Directives Yes July 22 7:41am Living Will Yes July 22, 2021 7:41am Power of Heel Reducer Yes July 22 7:41am Name of Medical Power of Heel Reducer Gallo Santos July 07, 2021 3:14pm Advance Directive Response Recorded Date/ Time Name of Medical Power of Heel Reducer ? July 03, 2021 8:33am Advance Directives on File Yes July 22, 2021 7:41am Name of Medical Power of Heel Reducer Gallo Weinstein [facility] July 22, 2021 7:41am Advance Directives Yes July 22 7:41am Living Will Yes July 22, 2021 7:41am Power of Heel Reducer Yes July 22 7:41am Name of Medical Power of Heel Reducer Gallo Santos July 07, 2021 3:14pm Advance Directive Response Recorded Date/ Time Advance Directives on File Yes July 22, 2021 7:41am Name of Medical Power of Heel Reducer Gallo vaca July 22, 2021 7:41am Advance Directives Yes July 22 7:41am Living Will Yes July 22, 2021 7:41am Power of Heel Reducer Yes July 22 7:41am Name of Medical Power of Heel Reducer Gallo Santos July 07, 2021 3:14pm Advance Directive Response Recorded Date/ Time Advance Directives Yes July 22 7:41am Living Will Yes July 22, 2021 7:41am Power of Heel Reducer Yes July 22 7:41am Advance Directive Response Recorded Date/ Time Name of Medical Power of Heel Reducer Gallo Santos March 06, 2022 12:52pm Advance Directives Yes July 22 6:41am Living Will Yes March 06, 022 12:52pm Power of Heel Reducer Yes March 06, 2022 12:52pm Advance Directive Response Recorded Date/ Time Name of Medical Power of Heel Reducer Gallo Santos March 06, 2022 12:52pm Advance Directives Yes July 22 6:41am Living Will No March 23 10:10pm Power of Heel Reducer No March 23, 2022 10:10pm Advance Directive Response Recorded Date/ Time Name of Medical Power of Heel Reducer Gallo Tom March 06, 2022 12:52pm Advance Directives Yes July 22 6:41am Living Will No March 24 1:42am Power of Heel Reducer No March 24, 2022 1:42am Advance Directive Response Recorded Date/ Time Name of Medical Power of Heel Reducer Gallo Tom March 06, 2022 12:52pm Advance Directives Yes May 3:20pm Living Will No June 16, 2 023 3:20pm Power of Heel Reducer No June 16, 2022 3:20pm Advance Directive Response Recorded Date/ Time Advance Directives Yes May 4:20pm Living Will No June 16, 2 023 4:20pm Power of Heel Reducer No June 16, 2022 4:20pm Advance Directive Response Recorded Date/ Time Advance Directives Yes May 4:20pm Living Will No October 09, 2022 4:19pm Power of Heel Reducer No October 09 4:19pm Advance Directive Response Recorded Date/ Time Name of Medical Power of Heel Reducer Gallo November 22, 2022 12:26pm Advance Directives Yes May 4:20pm Living Will Yes November 22, 2022 12:26pm Power of Heel Reducer Yes November 22 12:26pm Advance Directive Response Recorded Date/ Time Name of Medical Power of Heel Reducer Gallo tom November 22, 2022 6:50pm Advance Directives No November 23 023 8:00am Living Will No November 23, 2022 8:00am Power of Heel Reducer No November 23 8:00am Advance Directive Response Recorded Date/ Time Advance Directives on File No Augus t 2022 7:13am Name of Medical Power of Heel Reducer Gallo scott November 24, 2022 7:13am Advance Directives Yes November 24, 023 7:13am Living Will Yes November 24, 2022 7:13am Power of Heel Reducer Yes November 24 7:13am Name of Medical Power of Heel Reducer Gallo tom November 22, 2022 6:50pm Advance Directive Response Recorded Date/ Time Advance Directives on File No Augus t 2022 7:13am Name of Medical Power of Heel Reducer Gallo scott November 24, 2022 7:13am Name of Medical Power of Heel Reducer Gallo tom November 22, 2022 6:50pm Name of Medical Power of Heel Reducer GALLO January 31, 2023 2:45pm Advance Directives Yes November 24, 023 7:13am Living Will Yes January 31 2:45pm Power of Heel Reducer Yes January 31, 2023 2:45pm Advance Directive Response Recorded Date/ Time Name of Medical Power of Heel Reducer GALLO January 31, 2023 1:45pm Advance Directives Yes November 24, 023 6:13am Living Will Yes January 31 1:45pm Power of Heel Reducer Yes January 31, 2023 1:45pm Advance Directive Response Recorded Date/ Time Advance Directives Yes November 24, 2 023 6:13am Living Will No April 22 023 6:51pm Power of Heel Reducer No April 22, 2023 6:51pm Name of Medical Power of Heel Reducer GALLO January 31, 2023 1:45pm Advance Directive Response Recorded Date/ Time Advance Directives Yes November 24, 2 023 6:13am Living Will No April 22 023 6:51pm Power of Heel Reducer No April 22, 2023 6:51pm Advance Directive Response Recorded Date/ Time Advance Directives Yes November 24, 2 023 7:13am Living Will No April 22 023 7:51pm Power of Heel Reducer No April 22, 2023 7:51pm Advance Directive Response Recorded Date/ Time Living Will Yes April 23 8:34am Do you have a Healthcare Power of Heel Reducer? Yes April 23, 2024 8:34am Name of Medical Power of Heel Reducer gallo santos April 23, 2024 8:34am Advance Directives Yes January 31, 2024 7:51am Advance Directive Response Recorded Date/ Time Advance Directives Yes January 31, 2024 7:51am Advance Directive Response Recorded Date/ Time Do you have a Healthcare Power of Heel Reducer? Yes October 20, 2024 3:28pm Advance Directives Yes January 31, 2024 7:51am Chief Complaint and Reason for Visit Chief Complaint S/P V-Fib Cardiac Ar rest, STEMI, PCI w/stenting SCREENING LAB SPEC 3 M FU DIZZINESS CP, SOB, nausea L.Lorson nosebleed NOSE BLEED CP CP Reason for Visit Atherosclerosis of c 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 pectoris Dizziness History of coronary artery stent placement Ischemic cardiomyopathy Atrial fibrillation HTN (hypertension) Hyperlipidemia History of coronary artery stent placement Atrial fibrillation Diastolic dysfunction HTN (hypertension) Hyperlipidemia Chief Complaint LAB SPEC 3 M FU DIZZINESS CP, SOB, nausea L.Lorson nosebleed NOSE BLEED CP CP post cath DYSPNEA DYSPNEA paroxysmal a fib/palps Reason for Visit Atherosclerosis of c 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 pectoris Dizziness History of coronary artery stent placement Ischemic cardiomyopathy Atrial fibrillation HTN (hypertension) Hyperlipidemia History of coronary artery stent placement Atrial fibrillation Diastolic dysfunction HTN (hypertension) Hyperlipidemia Atherosclerosis of c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 pectoris DELUNA (dyspnea on exertion) Palpitations Atrial fibrillation HTN (hypertension) Hyperlipidemia Chief Complaint CP, SOB, nausea L.Lo rson nosebleed NOSE BLEED CP CP HOLTER MONITOR post cath DYSPNEA DYSPNEA paroxysmal a fib/palps 9 M FU dyspnea Reason for Visit History of coronary artery stent placement Atrial fibrillation Diastolic dysfunction HTN (hypertension) Hyperlipidemia Atherosclerosis of c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 pectoris DELUNA (dyspnea on exertion) Palpitations Atrial fibrillation HTN (hypertension) Hyperlipidemia Chest pain Coronary artery disease DELUNA (dyspnea on exertion) History of coronary artery stent placement Ischemic cardiomyopathy Palpitations Atrial fibrillation HTN (hypertension) Hyperlipidemia DELUNA (dyspnea on exertion) Obesity Chief Complaint CP, SOB, nausea L.Lo rson nosebleed NOSE BLEED CP CP HOLTER MONITOR post cath DYSPNEA DYSPNEA paroxysmal a fib/palps 9 M FU dyspnea DYSPNEA DYSPNEA Reason for Visit History of coronary artery stent placement Atrial fibrillation Diastolic dysfunction HTN (hypertension) Hyperlipidemia Atherosclerosis of c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 pectoris DELUNA (dyspnea on exertion) Palpitations Atrial fibrillation HTN (hypertension) Hyperlipidemia Chest pain Coronary artery disease DELUNA (dyspnea on exertion) History of coronary artery stent placement Ischemic cardiomyopathy Palpitations Atrial fibrillation HTN (hypertension) Hyperlipidemia DELUNA (dyspnea on exertion) Obesity Chief Complaint CP, SOB, nausea L.Lo rson nosebleed NOSE BLEED CP CP HOLTER MONITOR post cath DYSPNEA DYSPNEA paroxysmal a fib/palps 9 M FU dyspnea DYSPNEA DYSPNEA DYSPNEA DYSPNEA Reason for Visit History of coronary artery stent placement Atrial fibrillation Diastolic dysfunction HTN (hypertension) Hyperlipidemia Atherosclerosis of c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 pectoris DELUNA (dyspnea on exertion) Palpitations Atrial fibrillation HTN (hypertension) Hyperlipidemia Chest pain Coronary artery disease DELUNA (dyspnea on exertion) History of coronary artery stent placement Ischemic cardiomyopathy Palpitations Atrial fibrillation HTN (hypertension) Hyperlipidemia DELUNA (dyspnea on exertion) Obesity Chief Complaint CP, SOB, nausea L.Lo rson nosebleed NOSE BLEED CP CP HOLTER MONITOR post cath DYSPNEA DYSPNEA paroxysmal a fib/palps 9 M FU dyspnea DYSPNEA DYSPNEA DYSPNEA DYSPNEA DYSPNEA 1 M FU LABWORK POSTERIOR CEREBRAL CIRCULATION INFARCTION Reason for Visit History of coronary artery stent placement Atrial fibrillation Diastolic dysfunction HTN (hypertension) Hyperlipidemia Atherosclerosis of c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 pectoris DELUNA (dyspnea on exertion) Palpitations Atrial fibrillation HTN (hypertension) Hyperlipidemia Chest pain Coronary artery disease DELUNA (dyspnea on exertion) History of coronary artery stent placement Ischemic cardiomyopathy Palpitations Atrial fibrillation HTN (hypertension) Hyperlipidemia DELUNA (dyspnea on exertion) Obesity DELUNA (dyspnea on exertion) Chief Complaint NOSE BLEED CP CP HOLTER MONITOR post cath DYSPNEA DYSPNEA paroxysmal a fib/palps 9 M FU dyspnea DYSPNEA DYSPNEA DYSPNEA DYSPNEA DYSPNEA 1 M FU LABWORK POSTERIOR CEREBRAL CIRCULATION INFARCTION Reason for Visit Atherosclerosis of c 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 pectoris DELUNA (dyspnea on exertion) Palpitations Atrial fibrillation HTN (hypertension) Hyperlipidemia Chest pain Coronary artery disease DELUNA (dyspnea on exertion) History of coronary artery stent placement Ischemic cardiomyopathy Palpitations Atrial fibrillation HTN (hypertension) Hyperlipidemia DELUNA (dyspnea on exertion) Obesity DELUNA (dyspnea on exertion) Chief Complaint 9 M FU dyspnea DYSPNEA DYSPNEA DYSPNEA DYSPNEA DYSPNEA 1 M FU LABWORK POSTERIOR CEREBRAL CIRCULATION INFARCTION 3 M FU BREAST MASS Reason for Visit Chest pain Coronary artery disease DELUNA (dyspnea on exertion) History of coronary artery stent placement Palpitations Atrial fibrillation HTN (hypertension) Hyperlipidemia Ischemic cardiomyopathy DELUNA (dyspnea on exertion) Obesity DELUNA (dyspnea on exertion) Chest pain Coronary artery disease DELUNA (dyspnea on exertion) History of coronary artery stent placement Palpitations Atrial fibrillation HTN (hypertension) Hyperlipidemia Ischemic cardiomyopathy Chief Complaint DYSPNEA DYSPNEA DYSPNEA 1 M FU LABWORK POSTERIOR CEREBRAL CIRCULATION INFARCTION 3 M FU BREAST MASS L BREAST PAIN Reason for Visit DELUNA (dyspnea on exer tion) Chest pain Coronary artery disease DELUNA (dyspnea on exertion) History of coronary artery stent placement Palpitations Atrial fibrillation HTN (hypertension) Hyperlipidemia Ischemic cardiomyopathy Mastodynia of left breast Chief Complaint 3 M FU BREAST MASS L BREAST PAIN 3 M FU EORDERS chest pain Reason for Visit Chest pain Coronary artery disease DELUNA (dyspnea on exertion) History of coronary artery stent placement Palpitations Atrial fibrillation HTN (hypertension) Hyperlipidemia Ischemic cardiomyopathy Mastodynia of left breast Chest pain Coronary artery disease DELUNA (dyspnea on exertion) History of coronary artery stent placement Hypersomnolence Palpitations Atrial fibrillation HTN (hypertension) Hyperlipidemia Ischemic cardiomyopathy Chief Complaint 3 M FU BREAST MASS L BREAST PAIN 3 M FU EORDERS chest pain CHEST PAIN CHEST PAIN Reason for Visit Chest pain Coronary artery disease DELUNA (dyspnea on exertion) History of coronary artery stent placement Palpitations Atrial fibrillation HTN (hypertension) Hyperlipidemia Ischemic cardiomyopathy Mastodynia of left breast Chest pain Coronary artery disease DELUNA (dyspnea on exertion) History of coronary artery stent placement Hypersomnolence Palpitations Atrial fibrillation HTN (hypertension) Hyperlipidemia Ischemic cardiomyopathy Chest pain HTN (hypertension) Chief Complaint 3 M FU BREAST MASS L BREAST PAIN 3 M FU EORDERS chest pain CHEST PAIN CHEST PAIN CHEST PAIN CHEST PAIN Reason for Visit Chest pain Coronary artery disease DELUNA (dyspnea on exertion) History of coronary artery stent placement Palpitations Atrial fibrillation HTN (hypertension) Hyperlipidemia Ischemic cardiomyopathy Mastodynia of left breast Chest pain Coronary artery disease DELUNA (dyspnea on exertion) History of coronary artery stent placement Hypersomnolence Palpitations Atrial fibrillation HTN (hypertension) Hyperlipidemia Ischemic cardiomyopathy Chest pain Chronic anticoagulation Coronary artery disease Dysphagia Esophageal stenosis Atrial fibrillation GERD (gastroesophageal reflux disease) HTN (hypertension) Chief Complaint BREAST MASS L BREAST PAIN 3 M FU EORDERS chest pain CHEST PAIN CHEST PAIN CHEST PAIN CHEST PAIN CHEST PAIN 1 M FU SCREENING Reason for Visit Mastodynia of left b reast DELUNA (dyspnea on exertion) History of coronary artery stent placement Hypersomnolence Palpitations Hyperlipidemia Chest pain Ischemic cardiomyopathy Chest pain Dysphagia Esophageal stenosis DELUNA (dyspnea on exertion) Fatigue History of coronary artery stent placement Hypersomnolence Palpitations Hyperlipidemia Ischemic cardiomyopathy Chief Complaint L BREAST PAIN 3 M FU EORDERS chest pain CHEST PAIN CHEST PAIN CHEST PAIN CHEST PAIN CHEST PAIN 1 M FU SCREENING SCREENING Reason for Visit Mastodynia of left b reast DELUNA (dyspnea on exertion) History of coronary artery stent placement Hypersomnolence Palpitations Hyperlipidemia Chest pain Ischemic cardiomyopathy Chest pain Dysphagia Esophageal stenosis DELUNA (dyspnea on exertion) Fatigue History of coronary artery stent placement Hypersomnolence Palpitations Hyperlipidemia Ischemic cardiomyopathy Chief Complaint 3 M FU EORDERS chest pain CHEST PAIN CHEST PAIN CHEST PAIN CHEST PAIN CHEST PAIN 1 M FU SCREENING SCREENING Reason for Visit DELUNA (dyspnea on exer tion) History of coronary artery stent placement Hypersomnolence Palpitations Hyperlipidemia Chest pain Ischemic cardiomyopathy Chest pain Dysphagia Esophageal stenosis DELUNA (dyspnea on exertion) Fatigue History of coronary artery stent placement Hypersomnolence Palpitations Hyperlipidemia Ischemic cardiomyopathy Chief Complaint CHEST PAIN CHEST PAIN CHEST PAIN CHEST PAIN CHEST PAIN 1 M FU SCREENING SCREENING 3 m fu e orders Reason for Visit Chest pain Dysphagia Esophageal stenosis DELUNA (dyspnea on exertion) Fatigue History of coronary artery stent placement Hypersomnolence Palpitations Hyperlipidemia Ischemic cardiomyopathy Chest pain Fatigue History of coronary artery stent placement Palpitations Hyperlipidemia Ischemic cardiomyopathy Chief Complaint CHEST PAIN CHEST PAIN CHEST PAIN CHEST PAIN CHEST PAIN 1 M FU SCREENING SCREENING 3 m fu e orders LEXISCAN/CHEST PAIN LIPOMA ON SHOULDER BLADE Reason for Visit Chest pain Dysphagia Esophageal stenosis DELUNA (dyspnea on exertion) Fatigue History of coronary artery stent placement Hypersomnolence Palpitations Hyperlipidemia Ischemic cardiomyopathy Chest pain Fatigue History of coronary artery stent placement Palpitations Hyperlipidemia Ischemic cardiomyopathy Back pain Chief Complaint 1 M FU SCREENING SCREENING 3 m fu e orders LEXISCAN/CHEST PAIN LIPOMA ON SHOULDER BLADE LEXISCAN/CHEST PAIN Reason for Visit DELUNA (dyspnea on exer tion) Fatigue History of coronary artery stent placement Hypersomnolence Palpitations Hyperlipidemia Ischemic cardiomyopathy Chest pain Fatigue History of coronary artery stent placement Palpitations Hyperlipidemia Ischemic cardiomyopathy Back pain Chief Complaint 3 m fu e orders LEXISCAN/CHEST PAIN LIPOMA ON SHOULDER BLADE LEXISCAN/CHEST PAIN H FU DYSPHAGIA CHEST PAIN Reason for Visit Chest pain Fatigue History of coronary artery stent placement Palpitations Hyperlipidemia Ischemic cardiomyopathy Back pain Dysphagia Reflux esophagitis Chief Complaint 3 m fu e orders LEXISCAN/CHEST PAIN LIPOMA ON SHOULDER BLADE LEXISCAN/CHEST PAIN H FU DYSPHAGIA CHEST PAIN DYSPHAGIA Reason for Visit Chest pain Fatigue History of coronary artery stent placement Palpitations Hyperlipidemia Ischemic cardiomyopathy Back pain Dysphagia Reflux esophagitis Chief Complaint 3 m fu e orders LEXISCAN/CHEST PAIN LIPOMA ON SHOULDER BLADE LEXISCAN/CHEST PAIN H FU DYSPHAGIA CHEST PAIN DYSPHAGIA Heart failure, unspecified S/P [facility] ED 10-09-22 Reason for Visit Chest pain History of coronary artery stent placement Palpitations Fatigue HTN (hypertension) Hyperlipidemia Ischemic cardiomyopathy Back pain Dysphagia Reflux esophagitis Bilateral edema of lower extremity Coronary artery disease Dyslipidemia Epigastric discomfort Fatigue HTN (hypertension) Obesity Chief Complaint LEXISCAN/CHEST PAIN LIPOMA ON SHOULDER BLADE LEXISCAN/CHEST PAIN H FU DYSPHAGIA CHEST PAIN DYSPHAGIA Heart failure, unspecified S/P [facility] ED 10-09-22 Reason for Visit Back pain Dysphagia Reflux esophagitis Bilateral edema of lower extremity Coronary artery disease Dyslipidemia Epigastric discomfort Fatigue HTN (hypertension) Obesity Chief Complaint H FU DYSPHAGIA CHEST PAIN DYSPHAGIA Heart failure, unspecified S/P [facility] ED 10-09-22 4 wk fu per AR E ORDER UTI Reason for Visit Dysphagia Reflux esophagitis Bilateral edema of lower extremity Coronary artery disease Dyslipidemia Epigastric discomfort Fatigue HTN (hypertension) Obesity Chest pain Coronary artery disease Dyslipidemia HTN (hypertension) Obesity Chief Complaint H FU DYSPHAGIA CHEST PAIN DYSPHAGIA Heart failure, unspecified S/P [facility] ED 10-09-22 4 wk fu per AR E ORDER UTI VERTIGO, DIZZINESS VERTIGO, DIZZINESS Reason for Visit Dysphagia Reflux esophagitis Bilateral edema of lower extremity Coronary artery disease Dyslipidemia Epigastric discomfort Fatigue HTN (hypertension) Obesity Chest pain Coronary artery disease Dyslipidemia HTN (hypertension) Obesity Dizziness Vertigo Dyslipidemia Chief Complaint H FU DYSPHAGIA CHEST PAIN DYSPHAGIA Heart failure, unspecified S/P [facility] ED 10-09-22 4 wk fu per AR E ORDER UTI VERTIGO, DIZZINESS VERTIGO, DIZZINESS CHEST PAIN Reason for Visit Dysphagia Reflux esophagitis Bilateral edema of lower extremity Coronary artery disease Dyslipidemia Epigastric discomfort Fatigue HTN (hypertension) Obesity Chest pain Coronary artery disease Dyslipidemia HTN (hypertension) Obesity Dizziness Vertigo Dyslipidemia Chief Complaint H FU DYSPHAGIA CHEST PAIN DYSPHAGIA Heart failure, unspecified S/P [facility] ED 10-09-22 4 wk fu per AR E ORDER UTI VERTIGO, DIZZINESS VERTIGO, DIZZINESS VERTIGO, DIZZINESS CHEST PAIN 3 MO FU Reason for Visit Dysphagia Reflux esophagitis Bilateral edema of lower extremity Coronary artery disease Dyslipidemia Epigastric discomfort Fatigue HTN (hypertension) Obesity Chest pain Coronary artery disease Dyslipidemia HTN (hypertension) Obesity Dizziness Vertigo Dyslipidemia Dysphagia Reflux esophagitis Chief Complaint H FU DYSPHAGIA CHEST PAIN DYSPHAGIA Heart failure, unspecified S[facility]P [facility] [facility] 10[facility] 4 wk fu per [place] E ORDER UTI VERTIGO, DIZZINESS VERTIGO, DIZZINESS VERTIGO, DIZZINESS CHEST PAIN 3 MO FU 2 M FU INT LABS Reason for Visit Dysphagia Reflux esophagitis Bilateral edema of lower extremity Coronary artery disease Dyslipidemia Epigastric discomfort Fatigue HTN (hypertension) Obesity Chest pain Coronary artery disease Dyslipidemia HTN (hypertension) Obesity Dizziness Vertigo Dyslipidemia Dysphagia Reflux esophagitis Bilateral edema of lower extremity Coronary artery disease Dyslipidemia HTN (hypertension) Obesity Paroxysmal atrial fibrillation Chief Complaint CHEST PAIN DYSPHAGIA Heart failure, unspecified S/P [facility] ED 10-09-22 4 wk fu per [place] E ORDER UTI VERTIGO, DIZZINESS VERTIGO, DIZZINESS VERTIGO, DIZZINESS CHEST PAIN 3 MO FU 2 M FU INT LABS PELVIC FLOOR/BLADDER. RX TO BE FAXED Reason for Visit Bilateral edema of l ower extremity Coronary artery disease Dyslipidemia Epigastric discomfort Fatigue HTN (hypertension) Obesity Chest pain Coronary artery disease Dyslipidemia HTN (hypertension) Obesity Dizziness Vertigo Dyslipidemia Dysphagia Reflux esophagitis Bilateral edema of lower extremity Coronary artery disease Dyslipidemia HTN (hypertension) Obesity Paroxysmal atrial fibrillation Chief Complaint 3 MO FU 2 M FU INT LABS PELVIC FLOOR/BLADDER. RX TO BE FAXED Constant CP:added per [place]/ L.L. E-ORDE Reason for Visit Dysphagia Reflux esophagitis Bilateral edema of lower extremity Coronary artery disease Dyslipidemia HTN (hypertension) Obesity Paroxysmal atrial fibrillation Coronary artery disease Dyslipidemia HTN (hypertension) Paroxysmal atrial fibrillation Chief Complaint 2 M FU INT LABS PELVIC FLOOR/BLADDER. RX TO BE FAXED Constant CP:added per [place]/ L.L. E-[place] PAROXYSMAL ATRIAL FIB NOSEBLEED Reason for Visit Bilateral edema of l ower extremity Coronary artery disease Dyslipidemia HTN (hypertension) Obesity Paroxysmal atrial fibrillation Coronary artery disease Dyslipidemia HTN (hypertension) Paroxysmal atrial fibrillation Chief Complaint PELVIC FLOOR/BLADDER . RX TO BE FAXED Constant CP:added per [place]/ L.L. E-[place]DE PAROXYSMAL ATRIAL FIB NOSEBLEED S/P [facility] 04/24 Reason for Visit Coronary artery dise ase Dyslipidemia HTN (hypertension) Paroxysmal atrial fibrillation Coronary artery disease Dyslipidemia HTN (hypertension) Paroxysmal atrial fibrillation Chief Complaint Constant CP:added pe r [place]/ L.L. E-OR[place] PAROXYSMAL ATRIAL FIB 30 DAY MONITOR NOSEBLEED S/P [facility] 04/24 EKG PER MMM SCREENING Paroxysmal atrial fibrillation Reason for Visit Coronary artery dise ase Dyslipidemia HTN (hypertension) Paroxysmal atrial fibrillation Coronary artery disease Dyslipidemia HTN (hypertension) Paroxysmal atrial fibrillation Chief Complaint Constant CP:added pe r [place]/ L.L. E-[place] PAROXYSMAL ATRIAL FIB 30 DAY MONITOR NOSEBLEED S/P [facility] 04/24 EKG PER MMM SCREENING Paroxysmal atrial fibrillation 2 M FU E ORDERS Reason for Visit Coronary artery dise ase Dyslipidemia HTN (hypertension) Paroxysmal atrial fibrillation Coronary artery disease Dyslipidemia HTN (hypertension) Paroxysmal atrial fibrillation [facility] current use of amiodarone Coronary artery disease Dyslipidemia HTN (hypertension) Paroxysmal atrial fibrillation Chief Complaint NOSEBLEED S/P [facility] 04/24 EKG PER MMM SCREENING Paroxysmal atrial fibrillation 2 M FU E ORDERS SOB STOOL Reason for Visit Coronary artery dise ase Dyslipidemia HTN (hypertension) 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 Coronary artery disease Dyslipidemia HTN (hypertension) Paroxysmal atrial fibrillation Chief Complaint S/P [facility] 04/24 EKG PER MMM SCREENING Paroxysmal atrial fibrillation 2 M FU E ORDERS SOB STOOL Reason for Visit Coronary artery dise ase Dyslipidemia HTN (hypertension) Paroxysmal atrial fibrillation [facility] current use of amiodarone Coronary artery disease Dyslipidemia HTN (hypertension) Paroxysmal atrial fibrillation Chief Complaint Admit Date nausea vomiting diarrhea April 23 7:27am Other specified peripheral vascular dise ases June 03, 2024 9:50am BILATERAL LEG PAIN June 03, 2024 10:24am LIVER HEMANGIOMA July 09, 2024 9:2 5am Chief Complaint Admit Date LIVER HEMANGIOMA July 09, 2024 9:2 5am 6 M FU August 21, 2024 12:53p m EKG September 01, 2024 2:53p m BP CHECK September 01, 2024 2:54p m PALPITATIONS October 09, 2024 9:39 am Reason for Visit Admit Date Nausea & vomiting August 21, 2024 12:53p m Bilateral edema of lower extremity August 212024 12:53pm COPD (chronic obstructive pulmonary dise ase) August 21, 2024 12:53pm Coronary artery disease August 21, 2024 12 :53pm HTN (hypertension) August 21, 2024 12:53p m Obesity August 21, 2024 12:53p m Paroxysmal atrial fibrillation August 21, 2024 12:53pm Pulmonary hypertension August 21, 2024 12: 53pm Chief Complaint Admit Date LIVER HEMANGIOMA July 09, 2024 9:2 5am 6 M FU August 21, 2024 12:53p m EKG September 01, 2024 2:53p m BP CHECK September 01, 2024 2:54p m PALPITATIONS October 09, 2024 9:39 am PALPITATIONS October 09, 2024 9:56 am See clinical notes re; a-fib and cp October 20, 2024 1:53pm Chief Complaint Admit Date LIVER HEMANGIOMA July 09, 2024 9:2 5am 6 M FU August 21, 2024 12:53p m EKG September 01, 2024 2:53p m BP CHECK September 01, 2024 2:54p m PALPITATIONS October 09, 2024 9:39 am PALPITATIONS October 09, 2024 9:56 am See clinical notes re; a-fib and cp October 20, 2024 1:53pm CHEST PAIN October 20, 2024 8:00 pm Reason for Visit Admit Date Nausea & vomiting August 21, 2024 12:53p m Bilateral edema of lower extremity August 212024 12:53pm COPD (chronic obstructive pulmonary dise ase) August 21, 2024 12:53pm Coronary artery disease August 21, 2024 12 :53pm HTN (hypertension) August 21, 2024 12:53p m Obesity August 21, 2024 12:53p m Paroxysmal atrial fibrillation August 21, 2024 12:53pm Pulmonary hypertension August 21, 2024 12: 53pm Atrial flutter October 20, 2024 8:00 pm Chest pain October 20, 2024 8:00 pm Additional Source Comments INFORMATION SOURCE (unrecogn ized section and content) DATE CREATED AUTHOR 10/17/2017 [employer] ([place]) DATE CREATED AUTHOR AUTHOR'S ORGANIZ ATION 03/31/2018 [facility] DATE CREATED AUTHOR AUTHOR'S ORGANIZ ATION 01/07/2021 [employer] ([place] DATE CREATED AUTHOR AUTHOR'S ORGANIZ ATION 05/03/2022 [facility] DATE CREATED AUTHOR AUTHOR'S ORGANIZ ATION 07/07/2024 [facility] Care Team (unrecognized sect ion and content) Care Team Personnel Name: JOSHUA MORIN MD Member Role: Primary Care Physician Address: Address: [facility] [address] [place] [address]- [place] Care Teams (unrecognized sec tion and content) Team Status: Active Member Role Status Dates Alexi Morin MD Family Provider Active Dr. Alexi Morin MD Primary Care Provider Active Team Status: Inactive Member Role Status Dates Dr. Alexi Morin MD Primary Care Provider, Referring Provider Active Romero Broderick TRANSFUSION NURSE, TRANSFUSION NURSE-C Attending Provider Active Team Status: Inactive Member Role Status Dates Dr. Alexi Morin MD Primary Care Provider, Referring Provider Active Dr. Toy Varghese MD Attending Provider Active Team Status: Inactive Member Role Status Dates Dr. Alexi Morin MD Primary Care Provider, Referring Provider Active Ivory Abernathy TRANSFUSION NURSE, TRANSFUSION NURSE-C Attending Provider Active Team Status: Active Member Role Status Dates Dr. Alexi Morin MD Primary Care Provider Active Dr. New Julien DO Emergency Provider Active Dr. Horace Mccormick MD Admit Provider, Attending Provider, Other Provider Active Team Status: Active Member Role Status Dates Dr. Alexi Morin MD Primary Care Provider Active Dr. New Julien DO Emergency Provider Active Dr. Horace Mccormick MD Admit Provider, Other Provide r Active Dr. Melody Briceno MD Attending Provider, Other Provid er Active Dr. Aguila Vidal DO Other Provider Active Team Status: Active Member Role Status Dates Dr. Alexi Morin MD Primary Care Provider Active Dr. Scotty Greenfield DO Attending Provider Active Team Status: Active Member Role Status Dates Dr. Alexi Morin MD Primary Care Provider Active Dr. New Julien DO Emergency Provider Active Dr. Horace Mccormick MD Admit Provider, Other Provide r Active Dr. Melody Briceno MD Other Provider Active Dr. Óscar Craft MD Referring Provider, Other Provi toro Active Dr. Aguila Vidal DO Other Provider Active Dr. Scotty Greenfield DO Attending Provider Active Team Status: Active Member Role Status Dates Dr. Alexi Morin MD Primary Care Provider Active Dr. New Julien DO Emergency Provider Active Dr. Horace Mccormick MD Admit Provider, Other Provide r Active Dr. Melody Briceno MD Other Provider Active Dr. Óscar Craft MD Attending Provider, Other Provi toro Active Dr. Aguila Vidal DO Other Provider Active Team Status: Inactive Member Role Status Dates Dr. Alexi Morin MD Primary Care Provi toro, Attending Provider, Referring Provider Active Team Status: Inactive Member Role Status Dates Dr. Alexi Morin MD Primary Care Provider, Attending Provider Active Team Status: Inactive Member Role Status Dates Dr. Alexi Morin MD Primary Care Provider Active Romero Broderick TRANSFUSION NURSE, TRANSFUSION NURSE-C Attending Provider, Referring Pro vider Active Team Status: Inactive Member Role Status Dates Dr. Alexi Morin MD Primary Care Provider Active Dr. Praful Smith MD Attending Provider, Emergency Provider Active Team Status: Inactive Member Role Status Dates Dr. Alexi Morin MD Primary Care Provider Active Dr. New Julien DO Emergency Provider Active Dr. Horace Mccormick MD Admit Provider, Other Provide r Active Dr. Melody Briceno MD Other Provider Active Dr. Óscar Craft MD Attending Provider Active Dr. Aguila Vidal DO Other Provider Active Team Status: Active Member Role Status Dates Dr. Alexi Morin MD Primary Care Provider, Attending Provider Active Team Status: Active Member Role Status Dates Alexi CANTU MD Family Provider Active Dr. Alexi Morin MD Primary Care Provider Active Team Status: Inactive Member Role Status Dates Dr. Alexi Morin MD Primary Care Provider Active Ivory Abernathy TRANSFUSION NURSE, TRANSFUSION NURSE-C Attending Provider, Referring P ferny Active Team Status: Inactive Member Role Status Dates Dr. Alexi Morin MD Primary Care Provider, Referring Provider Active Dr. Bharat Desai MD Attending Provider Active Team Status: Active Member Role Status Dates Dr. Alexi Morin MD Primary Care Provider Active Ivory Abernathy TRANSFUSION NURSE, TRANSFUSION NURSE-C Attending Provider Active Team Status: Active Member Role Status Dates Dr. Alexi Morin MD Primary Care Provider Active Ivory Abernathy TRANSFUSION NURSE, TRANSFUSION NURSE-C Other Provider Active Dr. Darrell Jordan MD Attending Provider Active Team Status: Inactive Member Role Status Dates Dr. Alexi Morin MD Primary Care Provider Active Ivory Abernathy TRANSFUSION NURSE, TRANSFUSION NURSE-C Attending Provider Active Team Status: Inactive Member Role Status Dates Dr. Alexi Morin MD Primary Care Provider, Referring Provider Active Dr. Scotty Greenfield DO Attending Provider Active Team Status: Active Member Role Status Dates Dr. Alexi Morin MD Primary Care Provider Active Ivory Abernathy TRANSFUSION NURSE, TRANSFUSION NURSE-C Other Provider Active Dr. Darrell Jordan MD Attending Provider, Referring Pro vider Active Team Status: Inactive Member Role Status Dates Dr. Alexi Morin MD Primary Care Provider Active Dr. Scotty Greenfield DO Attending Provider, Referring Provider Active Team Status: Inactive Member Role Status Dates Dr. Alexi Morin MD Primary Care Provider Active Dr. Iliana Albarran MD Emergency Provider Active Team Status: Inactive Member Role Status Dates Dr. Alexi Morin MD Primary Care Provider Active Dr. Iliana Albarran MD Attending Provider, Emergency Provider Active Team Status: Inactive Member Role Status Dates Dr. Alexi Morin MD Primary Care Provider, Referring Provider Active Dr. Melody Briceno MD Attending Provider Active Team Status: Active Member Role Status Dates Dr. Alexi Morin MD Primary Care Provider Active Dr. Angela Lewis MD Attending Provider, Referring P rovider Active Team Status: Inactive Member Role Status Dates Dr. Alexi Morin MD Primary Care Provider Active Dr. Melody Briceno MD Attending Provider, Referring Pr ovider Active Team Status: Active Member Role Status Dates Dr. Alexi Morin MD Primary Care Provider Active Dr. Campos Tomlin DO Emergency Provider Active Dr. Óscar Craft MD Admit Provider, A ttending Provider, Other Provider Active Team Status: Active Member Role Status Dates Dr. Alexi Morin MD Primary Care Provider Active Dr. Campos Tomlin DO Emergency Provider Active Dr. Óscar Craft MD Admit Provider, Attending Provi toro Active Team Status: Active Member Role Status Dates Dr. Alexi Morin MD Primary Care Provider Active Dr. Toy Varghese MD Attending Provider Active Team Status: Inactive Member Role Status Dates Dr. Alexi Morin MD Primary Care Provider Active Dr. Campos Tomlin DO Emergency Provider Active Dr. Óscar Craft MD Admit Provider, Other Provider Active Dr. Leroy White DO Attending Provider Active Team Status: Inactive Member Role Status Dates Dr. Alexi Morin MD Primary Care Provider Active Dr. Darrell Jordan MD Attending Provider, Referring Pro vider Active Team Status: Active Member Role Status Dates Dr. Alexi Morin MD Primary Care Provider Active Dr. Toy Varghese MD Attending Provider Active Dr. Óscar Craft MD Referring Provider Active Team Status: Active Member Role Status Dates Dr. Alexi Morin MD Primary Care Provider Active Dr. Campos Tomlin DO Emergency Provider Active Dr. Óscar Craft MD Admit Provider, Other Provider Active Dr. Leroy White DO Attending Provider, Other Pro vider Active Team Status: Inactive Member Role Status Dates Dr. Alexi Morin MD Primary Care Provider Active Dr. Angela Lewis MD Attending Provider, Referring P rovider Active Team Status: Active Member Role Status Dates Dr. Alexi Morin MD Primary Care Provider Active Dr. Melody Briceno MD Attending Provider, Referring Pr ovider Active Team Status: Active Member Role Status Dates Dr. Alexi Morin MD Primary Care Provider, Referring Provider Active Dr. Scotty Greenfield DO Attending Provider, Other Prov ider Active Team Status: Active Member Role Status Dates Dr. Alexi Morin MD Primary Care Provider Active Dr. Angela Lewis MD Attending Provider Active Team Status: Inactive Member Role Status Dates Dr. Alexi Morin MD Primary Care Provider, Referring Provider Active Ember MOY PA Attending Provider Active Team Status: Inactive Member Role Status Dates Dr. Alexi Morin MD Primary Care Provider Active Ember MOY PA Attending Provider, Referr ing Provider Active Team Status: Inactive Member Role Status Dates Dr. Alexi Morin MD Primary Care Provider Active Dr. Jung Fontaine DO Emergency Provider Active Team Status: Active Member Role Status Dates Dr. Alexi Morin MD Primary Care Provider Active Ember MOY PA Attending Provider, Referr ing Provider Active Team Status: Inactive Member Role Status Dates Dr. Alexi Morin MD Primary Care Provider Active Dr. Jung Fontaine DO Attending Provider, Emergency P rovider Active Team Status: Inactive Member Role Status Dates Dr. Aleix Morin MD Primary Care Provider Active Ember MOY PA Attending Provider Active County Director Welfare Relationship Specialty Start Date End Date Alexi Morin Chi PCP - General Gerontology 07/19/17 Team Status: Active Member Role Status Dates Dr. Alexi Morin MD Primary Care Provider Active Dr. Melody Briceno MD Attending Provider Active Ember MOY PA Referring Provider Active Team Status: Active Member Role Status Dates Dr. Alexi Morin MD Primary Care Provi toro, Attending Provider, Referring Provider Active Team Status: Active Member Role Status Dates Dr. Alexi Morin MD Primary Care Provider, Attending Provider Active Ember MOY PA Referring Provider Active Team Status: Inactive Member Role Status Dates Dr. Alexi Morin MD Primary Care Provider, Attending Provider Active Ember MOY PA Referring Provider Active County Director Welfare Relationship Specialty Start Date End Date Alexi Morin Chi PCP - General Gerontology 07/19/17 Team Status: Active Member Role Status Dates Dr. Alexi Morin MD Primary Care Provider Active Team Status: Inactive Member Role Status Dates Dr. Alexi Morin MD Primary Care Provider Active Start: April 23, 2024 End: April 23, 2024 Dr. Campos Tomlin DO Attending Provider Active Start: April 23, 2024 End: April 23, 2024 Dr. Campos Tomlin DO Emergency Provider Active Start: April 23, 2024 End: April 23, 2024 Team Status: Inactive Member Role Status Dates Dr. Alexi Morin MD Primary Care Provider Active Start: June 03, 2024 End: June 03, 2024 Dr. Mehrdad Crowe DPM Attending Provider Active Start: June 03, 2024 End: June 03, 2024 Dr. Mehrdad Crowe DPM Referring Provider Active Start: June 03, 2024 End: June 03, 2024 Team Status: Active Member Role Status Dates Dr. Nikolai Doherty MD Attending Provider Active Start: June 03, 2024 Dr. Mehrdad Crowe DPM Referring Provider Active Start: June 03, 2024 Team Status: Inactive Member Role Status Dates Dr. Alexi Morin MD Primary Care Provider Active Start: June 27, 2024 End: June 27, 2024 Dr. Alexi Morin MD Attending Provider Active Start: June 27, 2024 End: June 27, 2024 Dr. Alexi Morin MD Referring Provider Active Start: June 27, 2024 End: June 27, 2024 Team Status: Active Member Role Status Dates Dr. Alexi Morin MD Primary Care Provider Active Start: July 09, 2024 Dr. Alexi Morin MD Attending Provider Active Start: July 09, 2024 Dr. Alexi Morin MD Referring Provider Active Start: July 09, 2024 Team Status: Inactive Member Role Status Dates Dr. Alexi Morin MD Primary Care Provider Active Start: July 09, 2024 End: July 09, 2024 Dr. Alexi Morin MD Attending Provider Active Start: July 09, 2024 End: July 09, 2024 Dr. Alexi Morin MD Referring Provider Active Start: July 09, 2024 End: July 09, 2024 Team Status: Inactive Member Role Status Dates Dr. Alexi Morin MD Primary Care Provider Active Start: August 21, 2024 End: August 21, 2024 Dr. Alexi Morin MD Referring Provider Active Start: August 21, 2024 End: August 21, 2024 Dr. Melody Briceno MD Attending Provider Active Start: August 21, 2024 End: August 21, 2024 Team Status: Inactive Member Role Status Dates Dr. Alexi Morin MD Primary Care Provider Active Start: September 01, 2024 End: September 01, 2024 Dr. Alexi Morin MD Referring Provider Active Start: September 01, 2024 End: September 01, 2024 Dr. Melody Briceno MD Attending Provider Active Start: September 01, 2024 End: September 01, 2024 Team Status: Inactive Member Role Status Dates Dr. Alexi Morni MD Primary Care Provider Active Start: October 09, 2024 End: October 09, 2024 Romero Broderick TRANSFUSION NURSE, TRANSFUSION NURSE-C Attending Provider Active S tart: October 09, 2024 End: October 09, 2024 Romero Broderick TRANSFUSION NURSE, TRANSFUSION NURSE-C Referring Provider Active S tart: October 09, 2024 End: October 09, 2024 Team Status: Active Member Role Status Dates Dr. Alexi Morin MD Primary Care Provider Active Start: October 14, 2024 Dr. Alexi Morin MD Attending Provider Active Start: October 14, 2024 Team Status: Active Member Role/Relationship Status Dates Dr. Alexi Morin MD Primary Care Provider Active Team Status: Inactive Member Role/Relationship Status Dates Dr. Alexi Morin MD Primary Care Provider Active Start: June 27, 2024 End: June 27, 2024 Dr. Alexi Morin MD Attending Provider Active Start: June 27, 2024 End: June 27, 2024 Dr. Alexi Morin MD Referring Provider Active Start: June 27, 2024 End: June 27, 2024 Team Status: Inactive Member Role/Relationship Status Dates Dr. Alexi Morin MD Primary Care Provider Active Start: July 09, 2024 End: July 09, 2024 Dr. Alexi Morin MD Attending Provider Active Start: July 09, 2024 End: July 09, 2024 Dr. Alexi Morin MD Referring Provider Active Start: July 09, 2024 End: July 09, 2024 Team Status: Inactive Member Role/Relationship Status Dates Dr. Alexi Morin MD Primary Care Provider Active Start: August 21, 2024 End: August 21, 2024 Dr. Alexi Morin MD Referring Provider Active Start: August 21, 2024 End: August 21, 2024 Dr. Melody Briceno MD Attending Provider Active Start: August 21, 2024 End: August 21, 2024 Team Status: Inactive Member Role/Relationship Status Dates Dr. Alexi Morin MD Primary Care Provider Active Start: September 01, 2024 End: September 01, 2024 Dr. Alexi Morin MD Referring Provider Active Start: September 01, 2024 End: September 01, 2024 Dr. Melody Briceno MD Attending Provider Active Start: September 01, 2024 End: September 01, 2024 Team Status: Inactive Member Role/Relationship Status Dates Dr. Alexi Morin MD Primary Care Provider Active Start: September 01, 2024 End: September 01, 2024 Dr. Alexi Morin MD Referring Provider Active Start: September 01, 2024 End: September 01, 2024 Dr. Melody Briceno MD Attending Provider Active Start: September 01, 2024 End: September 01, 2024 Team Status: Inactive Member Role/Relationship Status Dates Dr. Alexi Morin MD Primary Care Provider Active Start: October 09, 2024 End: October 09, 2024 Romero Broderick TRANSFUSION NURSE, TRANSFUSION NURSE-C Attending Provider Active S tart: October 09, 2024 End: October 09, 2024 Romero Broderick TRANSFUSION NURSE, TRANSFUSION NURSE-C Referring Provider Active S tart: October 09, 2024 End: October 09, 2024 Team Status: Inactive Member Role/Relationship Status Dates Dr. Alexi Morin MD Primary Care Provider Active Start: October 14, 2024 End: October 14, 2024 Dr. Alexi Morin MD Attending Provider Active Start: October 14, 2024 End: October 14, 2024 Team Status: Active Member Role/Relationship Status Dates Dr. Alexi Morin MD Primary Care Provider Active Start: October 09, 2024 Dr. Melody Briceno MD Attending Provider Active Start: October 09, 2024 Romero Broderick TRANSFUSION NURSE, TRANSFUSION NURSE-C Referring Provider Active S tart: October 09, 2024 Team Status: Inactive Member Role/Relationship Status Dates Dr. Alexi Morin MD Primary Care Provider Active Start: October 14, 2024 End: October 14, 2024 Dr. Alexi Morin MD Attending Provider Active Start: October 14, 2024 End: October 14, 2024 Team Status: Inactive Member Role/Relationship Status Dates Dr. Alexi Morin MD Primary Care Provider Active Start: October 20, 2024 End: October 20, 2024 Dr. Alexi Morin MD Referring Provider Active Start: October 20, 2024 End: October 20, 2024 FARZANEH Nath Attending Provider Active St art: October 20, 2024 End: October 20, 2024 Team Status: Active Member Role/Relationship Status Dates Dr. Alexi Morin MD Primary Care Provider Active Start: October 20, 2024 Dr. Rohit Sweeney DO Emergency Provider Active Start: October 20, 2024 Dr. Raulito Sen DO Admit Provider Active Start: October 20, 2024 Dr. Raulito Sen DO Attending Provider Active Start: October 20, 2024 Dr. Raulito Sen DO Referring Provider Active Start: October 20, 2024 Source Comments (unrecognize d section and content) In the event this informatio n is protected by the Federal Confidentiality of Alcohol and Drug Abuse Patient Records regulations: The Federal rules restrict any use of the information to criminally investigate or prosecute any alcohol or drug abuse patient.[facility] the event this information is protected by the Federal Confidentiality of Alcohol and Drug Abuse Patient Records regulations: The Federal rules restrict any use of the information to criminally investigate or prosecute any alcohol or drug abuse patient.[facility] the event this information is protected by the Federal Confidentiality of Alcohol and Drug Abuse Patient Records regulations: The Federal rules restrict any use of the information to criminally investigate or prosecute any alcohol or drug abuse patient.[facility] Reason for Visit (unrecogniz ed section and content) Reason Comments Consult Bleeding hemorrhoids Reason Comments Palpitations Reason Comments Appointment NEW PAT FOR RECORDS PERTAINING TO PATIENTS WHO ARE [...] BE BASED ON THE PRIMARY CLINICAL RECORDS. [facility]. provides no warranty or guarantee of the accuracy or completeness of information in this document.
[2024-10-21 03:35] VITALS: BP 130/79; PULSE 86; RESP 16; TEMP 36.7; O2SAT 95
[2024-10-21 06:55] LABS: Cholesterol 158 mg/dL (<=200); Low Density Lipoprotein Calc. 94 mg/dL; Pro- Brain NATRIURETIC PEPTIDE 1485 pg/mL (<=1800); Triglycerides 182 mg/dL; Very Low Density Lipoprotein 36 mg/dL (5-40); cholesterol:hdl ratio screen 5.75
--- NOTE | 2024-10-21 07:56 | PCM.PN.HOSP ---
Reason for Visit Reason for Visit: Diagnoses Obesity, unspecified (10/20/24) Unspecified atrial flutter (10/20/24) Acute on chronic diastolic (congestive) heart failure (10/20/24) Chest pain, unspecified (10/20/24) Objective Data Objective Data Vital Signs: Vital Signs Temp Pulse Resp BP Pulse Ox O2 Del Method 98.1 F 86 16 130/79 H 95 Room Air 10/21/24 03:35 10/21/24 03:35 10/21/24 03:35 10/21/24 03:35 10/21/24 03:35 10/21/24 03:44 Oxygen Delivery Method Room Air Weight: 186 lb 11.704 oz Body Mass Index (BMI) 36.4 Intake & Output: Intake and Output for Last 24 Hours 10/19/24 10/20/24 10/21/24 23:59 23:59 23:59 Intake Total 1280 / 1280 0 / 0 Balance 1280 / 1280 0 / 0 Lab / Micro Data 10/20/24 15:17 10/20/24 15:17 Labs: Laboratory Results - last 24 hr 10/20/24 15:17: WBC 7.8, RBC 4.51, Hgb 12.3, Hct 38.2, MCV 84.7, MCH 27.3, MCHC 32.2, RDW Std Deviation 45.5 H, RDW Coeff of April 14.9 H, Plt Count 306, MPV 10.0, Immature Gran % (Auto) 0.300, Neut % (Auto) 63.8, Lymph % (Auto) 25.3, [place] % (Auto) 7.1, Eos % (Auto) 2.7, Baso % (Auto) 0.8, Absolute Neuts (auto) 5.0, Absolute Lymphs (auto) 1.96, Nucleated RBC % 0, Sodium 142, Potassium 3.9, Chloride 103, Carbon Dioxide 26.5, Anion Gap 13, BUN 20 H, Creatinine 1.15, Estim Creat Clear Calc 39.36 L, Est GFR (MDRD) Non-Af 49 L, BUN/Creatinine Ratio 17.1, Glucose 137 H, Hemoglobin A1c 5.8 H, Calcium 9.8, Troponin T High Sens 20 H, NT pro BNP II 2281 H, TSH 0.952, Free T4 1.20, Free T3 pg/dL 2.1 L 10/20/24 17:39: Troponin T Hi Sens 2 Hr 17 H 10/20/24 22:09: Troponin T Hi Sens 4Hr 21 H 10/21/24 05:54: NT pro BNP II 1485, Triglycerides 182, Cholesterol 158, LDL Cholesterol, Calc 94, VLDL Cholesterol 36, HDL Cholesterol 28 L, Cholesterol/HDL Ratio 5.75 Radiography Diagnostic Testing: Radiology Impression Chest X-Ray 10/20/24 15:08 IMPRESSION: No acute pulmonary process, no interval change Reading Location: [facility] Physical Exam Narrative Seen and examined Patient is stated she has chest pain shortness of breath even on mild exertion of walking within home for about 6 months. She had MT/PCI and cardiac stent about 3 years ago. She had a stress test in the morning. Currently undergoing 2D echo. Physical exam General: Alert, Oriented x3, Cooperative HEENT: Atraumatic, PERRLA, EOMI, Normocephalic. Oral: No Gingival or Mucosal Lesions/ Ulcerations Neck: Supple, No JVD, Negative Carotid Bruits Chest wall/Lungs: Air entry diminished in bilateral lung bases. No crepitation/rhonchi Cardiovascular: Irregular rate and rhythm, systolic murmur Abdomen: Bowel Sounds Present, Soft, Non Tender, Non-Distended : No dysuria. No renal angle tenderness. No suprapubic tenderness. Extremities: No edema, Capillary Refill Less than 3 Seconds Skin: No rashes, No breakdown Musculoskeletal: No Tenderness to Palpation of Joints or Extremities Neurological: Cranial nerves II-XII grossly intact, DTR 2+/4. No acute focal neurological deficit. Psych/Mental Status: Normal Affect, Appropriate. Assessment & Plan Assessment/Plan (1) CHF exacerbation: QUALIFIERS: Heart failure type: diastolic Qualified Code(s): I50.33 - Acute on chronic diastolic (congestive) heart failure (2) Chest pain: QUALIFIERS: Chest pain type: unspecified Qualified Code(s): R07.9 - Chest pain, unspecified (3) Atrial flutter: QUALIFIERS: Atrial flutter type: unspecified Qualified Code(s): I48.92 - Unspecified atrial flutter (4) Obesity (BMI 30-39.9): PLAN: Plan This is 79-year-old female who was sent from cardiology office to ED with complaint of chest pain, left side with radiation to left arm, progressive worsening of shortness of breath for last 4 days since Sunday. 1. Acute exacerbation of chronic HFpEF: Patient is being admitted in PCU. Elevated proBNP 2281. Bilateral lower extremity pitting edema. Last 2D echo in September 2023 reported as LVEF of 64% with keop-ie-faghzcrt (1-2+) tricuspid valve insufficiency with mild pulmonary artery hypertension. Stress test is ordered. Rugby Union Footballer consult 2. Atypical chest pain: Serial troponins 20 17 and 21 are above normal (<14). Patient had last cath in January 2024 and had LAD stent Chest Pain with an elevated initial troponin T of 20 ng/L followed by a decreasing troponin T level of 17 ng/L in the setting of previously known CAD; s/p MT with subsequent LAD stent on as needed SL NTG plus ISMO complicating #1 - Maintain current regimen and serialize troponin. 3. Chronic atrial fibrillation/flutter; on amiodarone and apixaban twice daily compounding #1 & #2 - Resume present treatment. 4. Obesity (class II); with BMI of 36.1 this admission plus SHANAE; intolerant of CPAP adding to the burden of disease outlined from #1 - #3 - Weight loss will be recommended. Normal TSH of 0.952 noted on admission. This complicates her case and may hamper recovery. 5. Essential hypertension; on amlodipine and metoprolol - Continue present therapy plus give hydralazine IV prn for systolic blood pressure > 160 mmHg. 6. Hyperlipidemia; on rosuvastatin - Resume statin and check Lipid Profile. 7. Chronic DVT -continue 8. Other comorbidities include RA, asthma with no exacerbation, depression, chronic CHAUNCEY with H&H 12.3, RLE neuropathy and chronic venous insufficiency, chronic migraine headache and fibromyalgia. DVT prophylaxis - Patient already on apixaban.
[2024-10-21 08:05] VITALS: BP 129/58; PULSE 82; RESP 16; TEMP 36.6; O2SAT 95
[2024-10-21] MEDS: 0.9% Saline Lock 10 ML Syringe IV (08:12)
--- NOTE | 2024-10-21 13:16 | STRESSREP ---
Stress Test Report Pharmacologic myocardial perfusion stress test. Indication; 79-year-old patient with known history of CAD Presenting with symptoms of atypical chest pain Has a known history of a prior PCI and stent of left anterior descending artery. He also had a history of paroxysmal atrial fibrillation and has been on amiodarone and apixaban. Essential hypertension hyperlipidemia and a chronic DVT. Stress protocol: Resting EKG demonstrates. Normal sinus rhythm. 0.4 mg of regadenoson was infused per usual protocol followed by rapid intravenous saline flush injection continuous EKG monitoring was performed. The maximum heart rate attained was 103 bpm which was 72% of maximum predicted heart . Stress EKG showed[, no significant change from the resting EKG, with maximum heart rate of 103bpm. Arrhythmia: No arrhythmia demonstrated Symptoms: Patient had no symptoms of chest pain Blood pressure at rest: 116/66 mmHg blood pressure at the end of stress: 134/72 mmHg Myocardial perfusion protocol. 11.6 mCi ]of Technetium 99m Sestamibi was injected at rest. [ 0.4 mg ]of Regadenoson was infused per usual protocol peak infusion[34.8 mCi ]of Technetium 99m sestamibi was injected. Stress images were obtained stress and rest images were reconstructed and compared in the short axis vertical and horizontal long axis. Gated images were also obtained Perfusion SPECT analysis: Review of the images demonstrate normal uptake of sestamibi at rest, post stress images demonstrate similar uptake of sestamibi to the resting images, homogeneous tracer uptake With no evidence of reversible myocardial ischemia. Gated SPECT analysis: The gated ejection fraction is 87% LV wall motion showed hyperdynamic left ventricle. Conclusion: Negative Lexiscan sestamibi myocardial perfusion study for reversible myocardial ischemia Hyperdynamic left ventricle. Miles Maldonado MD,FACC,[facility]
[2024-10-21 14:29] VITALS: BP 114/52; PULSE 81; RESP 18; TEMP 37.1; O2SAT 94
--- NOTE | 2024-10-21 14:50 | PCM.DC ---
Discharge Instructions Diet Discharge Diet: 2000 mg Sodium Diet DC O2, CPAP, BIPAP needs Home O2 Discharge instructions: No Dressing / Incision Discharge Activity: Return to Normal Activity Weight Bearing Status: Weight bearing as tolerated Dressing / Incision Call your doctor if you observe: Fever of 101 or Higher, Coldness, Increased Pain, Numbness or Tingling, Change in Color, Inability to urinate, Inability to have a bowel movement, Shortness of breath, Dizziness, Fainting spells, Swelling in the ankles, Chest pain, Prolonged hiccupping, Increased palpitations (irregular heartbeat) and Calf discomfort Follow Up Care When: IN 2 WEEKS Test Results: Test results from this visit will be discussed in further detail at your follow-up appointment, if applicable. Discharge Plan Admission Admit Date/Time: 10/20/24 20:00 Primary Reason for Your Visit: Atypical chest pain,afib Attending Provider: Óscar Craft Primary Care Provider: Alexi Morin Chi Consulting Providers: Raulito Sen Instructions Additional Instructions / Restrictions: Patient has appointment with Dr. Deep Garzon, woodworking machine offbearer for evaluation of A-fib and Watchman device Follow-up in cardiology office to recommend cardiac rehab Discharge Orders/Prescriptions Prescriptions: New furosemide [Lasix] 40 mg tablet 40 mg PO DAILY 30 Days Qty: 30 1RF metoprolol succinate 25 mg tablet extended release 24 hr 25 mg PO BID 30 Days Qty: 60 1RF Continued isosorbide mononitrate 60 mg tablet extended release 24 hr 60 mg PO DAILY Qty: 90 3RF meclizine 25 mg tablet 25 mg PO DAILY PRN (Reason: dizziness) buspirone 7.5 mg tablet 7.5 mg PO BID rosuvastatin 40 mg tablet 40 mg PO QDAY potassium chloride 10 mEq capsule, extended release 10 meq PO BID amiodarone 200 mg tablet 200 mg PO QDAY amlodipine 5 mg tablet 5 mg PO QDAY cholecalciferol (vitamin D3) 25 mcg (1,000 unit) tablet 25 mcg PO DAILY Patient Comments: nitroglycerin 0.4 mg Tablet, Sublingual 0.4 mg sublingual Q5M PRN (Reason: Cardiac/Chest Pain) Qty: 1 0RF diazepam [Valium] 2 mg tablet 2 mg PO UD PRN (Reason: dizziness or vertigo) Qty: 20 0RF Rx Instructions: 1 3-4 times a day for dizziness vitamins A,C,E-zpue-cxtneh [PreserVision AREDS] 1 cap PO BID atorvastatin 40 mg tablet 40 mg PO QHS Qty: 90 3RF Eliquis 2.5 mg tablet 2.5 mg PO BID Qty: 60 11RF pantoprazole 40 mg tablet,delayed release (DR/EC) 40 mg PO DAILY Qty: 30 9RF Referrals / Follow Up: Melody Briceno MD [Med Staff - Active Staff] - Within 1 Month Alexi Morin Chi, MD [Primary Care Provider] - Moi Michele PA [Med Staff - Adv Practice Prof] - Within 2 Weeks Disposition Disposition (needs filled in before D/C Order can be placed): Home, Self Care
--- NOTE | 2024-10-21 14:52 | CASEMGMT ---
Met with patient to complete BEAN form. BEAN form and its content were verbally explained and patient's questions were answered to the best of my ability.? Patient voiced understanding and signed BEAN form.? Patient provided a copy of signed BEAN form and original placed in patient's chart.? Patient had no further questions. Toma Jones, Discharge Planning Asst
--- NOTE | 2024-10-21 15:04 | PCM.DC.SUM ---
Providers Date of Admission: 10/20/24 Date of Discharge: 10/21/24 Primary Care Physician: Dr. Alexi Morin MD Reason For Visit: CHEST PAIN Diagnosis Discharge Diagnosis (1) CHF exacerbation: Status: Chronic Code(s): I50.9 - Heart failure, unspecified Qualifiers: Heart failure type: diastolic Qualified Code(s): I50.33 - Acute on chronic diastolic (congestive) heart failure (2) Chest pain: Status: Acute Code(s): R07.9 - Chest pain, unspecified Qualifiers: Chest pain type: unspecified Qualified Code(s): R07.9 - Chest pain, unspecified (3) Atrial flutter: Status: Acute Code(s): I48.92 - Unspecified atrial flutter Qualifiers: Atrial flutter type: unspecified Qualified Code(s): I48.92 - Unspecified atrial flutter (4) Obesity (BMI 30-39.9): Status: Acute Code(s): E66.9 - Obesity, unspecified Plan This is 79-year-old female who was sent from cardiology office to ED with complaint of chest pain, left side with radiation to left arm, progressive worsening of shortness of breath for last 4 days since Sunday. 1. Acute exacerbation of chronic HFpEF: Patient is being admitted in PCU. Elevated proBNP 2281. Bilateral lower extremity pitting edema. Last 2D echo in September 2023 reported as LVEF of 64% with dsqk-[id number]-[id number] (1-2+) tricuspid valve insufficiency with mild pulmonary artery hypertension. Stress test is ordered. Director Of Radio Services consult. 10/21: youth nutritional monitor shows sinus rhythm with multiple supraventricular ectopic beats/PACs. Patient had nuclear stress test which was reported glen, no evidence of reversible myocardial ischemia. She also had echo, Discussed with process technician Dr. Harman and he said EF is 55 to 60%, no RWMA. Normal LV systolic function. Normal tricuspid and mitral valve. She had recently Holter monitor on 10/09/2024 and her average heart rate was 70, maximum heart rate 105 and minimum heart rate 49 bpm. There were total of 97 ventricular ectopic beats comprising 0.1% of total QRS complexes. 2 ventricular couplets. No runs of V. tach there were total of 1012 supraventricular ectopic beats. No atrial fibrillation She stated that she mainly gets tired and fatigued even walking within the home and her heart rate goes high. She has appointment with customer facilities supervisor Dr. Fab Garzon to evaluation for A-fib and Watchman device. Follow-up in cardiology office in 2 weeks advised. Metoprolol succinate increased to 25 mg twice daily. Discharged on furosemide 40 mg once daily. She already has potassium supplement. Plan of discharge discussed with the patient and her at the bedside. 2. Atypical chest pain: Serial troponins 20 17 and 21 are above normal (<14). Patient had GA in the last cath in January 2024 and had LAD stent. ACS ruled out with normal stress 3. Chronic atrial fibrillation/flutter; on amiodarone and apixaban twice daily: Metoprolol succinate increased to 25 mg twice daily director cardiac shows sinus rhythm with multiple PACs 4. Obesity (class II); with BMI of 36.1 this admission plus SHANAE; intolerant of CPAP adding to the burden of disease outlined from #1 - #3 - Weight loss will be recommended. Normal TSH of 0.952 noted on admission. This complicates her case and may hamper recovery. 5. Essential hypertension; on amlodipine and metoprolol - Continue present therapy plus give hydralazine IV prn for systolic blood pressure > 160 mmHg. 6. Hyperlipidemia; on rosuvastatin - Resume statin lipid profile in normal limit, LDL 94, HDL 28. TSH 0.95 7. Chronic DVT -continue 8. Other comorbidities include RA, asthma with no exacerbation, depression, chronic CHAUNCEY with H&H 12.3, RLE neuropathy and chronic venous insufficiency, chronic migraine headache and fibromyalgia. DVT prophylaxis - Patient already on apixaban. Discharge medication reconciliation done. Discharge follow-up instructions completed. Discharge process discussed with the patient and all questions were answered to patient's satisfaction. Follow with PCP in 1 to 2 weeks Total time spent, exact 35 minutes on discharge meds reconciliation, examination, coordination of care with nurses and ancillary staff, review of imaging and blood test and discussion with the patient on follow-up instructions. Medications at Discharge Home Medications nitroglycerin 0.4 mg sublingual tablet 0.4 mg sublingual Q5M PRN Cardiac/Chest Pain #1 BOTTLE 12/05/20 atorvastatin 40 mg tablet 40 mg PO QHS Cholestrol #90 tabs 01/16/22 cholecalciferol (vitamin D3) 25 mcg (1,000 unit) tablet 25 mcg PO DAILY SUPPLEMENT 02/28/22 diazepam 2 mg tablet (Valium) 2 mg PO UD PRN dizziness or vertigo #20 tabs 11/23/22 isosorbide mononitrate 60 mg tablet,extended release 24 hr 60 mg PO DAILY #90 tabs 01/04/23 buspirone 7.5 mg tablet 7.5 mg PO BID 11/01/23 meclizine 25 mg tablet 25 mg PO DAILY PRN dizziness 11/01/23 vitamins A,C,A-vmqh-rqzqpd 1 cap PO BID EYE HEALTH 11/15/23 rosuvastatin 40 mg tablet 40 mg PO QDAY 12/27/23 apixaban 2.5 mg tablet (Eliquis) 2.5 mg PO BID #60 tabs 01/14/24 pantoprazole 40 mg tablet,delayed release 40 mg PO DAILY #30 TABLETS 01/22/24 amiodarone 200 mg tablet 200 mg PO QDAY 10/20/24 amlodipine 5 mg tablet 5 mg PO QDAY 10/20/24 potassium chloride 10 mEq capsule,extended release 10 meq PO BID 10/20/24 furosemide 40 mg tablet (Lasix) 40 mg PO DAILY 1 month #30 tabs 10/21/24 metoprolol succinate 25 mg tablet,extended release 24 hr 25 mg PO BID 1 month #60 tabs 10/21/24 Physical Exam Narrative Seen and examined Patient states he gets chest pain and shortness of breath mainly on walking/minimal to mild exertion. Her heart rate goes high sometimes 140 therefore was sent to ED from cardiology office. Physical exam General: Alert, Oriented x3, Cooperative HEENT: Atraumatic, PERRLA, EOMI, Normocephalic. Oral: No Gingival or Mucosal Lesions/ Ulcerations Neck: Supple, No JVD, Negative Carotid Bruits Chest wall/Lungs: Air entry diminished in bilateral lung bases. No crepitation/rhonchi Cardiovascular: Sinus rhythm, multiple supraventricular ectopic beats, heart rate is controlled about 80 per. No M/G/R Abdomen: Bowel Sounds Present, Soft, Non Tender, Non-Distended : No dysuria. No renal angle tenderness. No suprapubic tenderness. Extremities: Mild bilateral pedal edema, Capillary Refill Less than 3 Seconds Skin: No rashes, No breakdown Musculoskeletal: No Tenderness to Palpation of Joints or Extremities Neurological: Cranial nerves II-XII grossly intact, DTR 2+/4. No acute focal neurological deficit. Psych/Mental Status: Normal Affect, Appropriate. Weight / BMI Weight Weight: 186 lb 11.704 oz Body Mass Index (BMI) 36.4 ABG / Lab / Microbiology Data 10/20/24 15:17 10/20/24 15:17 Laboratory: Laboratory Results - last 24 hr 10/20/24 15:17: WBC 7.8, RBC 4.51, Hgb 12.3, Hct 38.2, MCV 84.7, MCH 27.3, MCHC 32.2, RDW Std Deviation 45.5 H, RDW Coeff of April 14.9 H, Plt Count 306, MPV 10.0, Immature Gran % (Auto) 0.300, Neut % (Auto) 63.8, Lymph % (Auto) 25.3, [place] % (Auto) 7.1, Eos % (Auto) 2.7, Baso % (Auto) 0.8, Absolute Neuts (auto) 5.0, Absolute Lymphs (auto) 1.96, Nucleated RBC % 0, Sodium 142, Potassium 3.9, Chloride 103, Carbon Dioxide 26.5, Anion Gap 13, BUN 20 H, Creatinine 1.15, Estim Creat Clear Calc 39.36 L, Est GFR (MDRD) Non-Af 49 L, BUN/Creatinine Ratio 17.1, Glucose 137 H, Hemoglobin A1c 5.8 H, Calcium 9.8, Troponin T High Sens 20 H, NT pro BNP II 2281 H, TSH 0.952, Free T4 1.20, Free T3 pg/dL 2.1 L 10/20/24 17:39: Troponin T Hi Sens 2 Hr 17 H 10/20/24 22:09: Troponin T Hi Sens 4Hr 21 H 10/21/24 05:54: NT pro BNP II 1485, Triglycerides 182, Cholesterol 158, LDL Cholesterol, Calc 94, VLDL Cholesterol 36, HDL Cholesterol 28 L, Cholesterol/HDL Ratio 5.75 Radiography Diagnostic Testing: Radiology Impression Chest X-Ray 10/20/24 15:08 IMPRESSION: No acute pulmonary process, no interval change Reading Location: [id number] Echocardiogram 10/20/24 20:03 Interpretation Summary The estimated ejection fraction is 55-60 %. Normal LV systolic function In comparison to previous echo no significant change noted Ordering Physician: Raulito Sen Referring Physician: Alexi Morin Chi Performed By: Alicia Diaz RDCS D/C Instructions Discharge Diet: 2000 mg Sodium Diet Weight Bearing Status: Weight bearing as tolerated Call your doctor if you observe: Fever of 101 or Higher, Coldness, Increased Pain, Numbness or Tingling, Change in Color, Inability to urinate, Inability to have a bowel movement, Shortness of breath, Dizziness, Fainting spells, Swelling in the ankles, Chest pain, Prolonged hiccupping, Increased palpitations (irregular heartbeat) and Calf discomfort DC O2, CPAP, BIPAP Needs Home O2 Discharge instructions: No When: IN 2 WEEKS Meaningful Use Info Meaningful Use Meaningful Use Diagnoses (Choose all that apply): None applicable Ischemic Stroke Statin Dosing Therapy Reference: STATIN DOSE THERAPY REFERENCE: * Patients > 75 years receive moderate or high dose statin therapy. * Patients 75 years or YOUNGER should receive HIGH intensity statin dose unless contraindicated. You will be required to document reason for non-treatment if statin daily dose does not meet guidelines. HIGH DOSE STATIN THERAPY DAILY Atorvastatin > than or = to 40 mg Rosuvastatin > than or = to 20 mg Amlodipine + Atorvastatin > than or = to 2.5/40 mg Ezetimibe + Simvastatin 10/80 mg Simvastatin 80mg Discharge Plan Admission Admit Date/Time: 10/20/24 20:00 Primary Reason for Your Visit: Atypical chest pain,afib Attending Provider: Óscar Craft Primary Care Provider: Alexi Morin Chi Consulting Providers: Raulito Sen Instructions Additional Instructions / Restrictions: Patient has appointment with Dr. Deep Garzon, customer facilities supervisor for evaluation of A-fib and Watchman device Follow-up in cardiology office to recommend cardiac rehab Discharge Orders/Prescriptions Prescriptions: New furosemide [Lasix] 40 mg tablet 40 mg PO DAILY 30 Days Qty: 30 1RF metoprolol succinate 25 mg tablet extended release 24 hr 25 mg PO BID 30 Days Qty: 60 1RF Continued isosorbide mononitrate 60 mg tablet extended release 24 hr 60 mg PO DAILY Qty: 90 3RF meclizine 25 mg tablet 25 mg PO DAILY PRN (Reason: dizziness) buspirone 7.5 mg tablet 7.5 mg PO BID rosuvastatin 40 mg tablet 40 mg PO QDAY potassium chloride 10 mEq capsule, extended release 10 meq PO BID amiodarone 200 mg tablet 200 mg PO QDAY amlodipine 5 mg tablet 5 mg PO QDAY cholecalciferol (vitamin D3) 25 mcg (1,000 unit) tablet 25 mcg PO DAILY Patient Comments: nitroglycerin 0.4 mg Tablet, Sublingual 0.4 mg sublingual Q5M PRN (Reason: Cardiac/Chest Pain) Qty: 1 0RF diazepam [Valium] 2 mg tablet 2 mg PO UD PRN (Reason: dizziness or vertigo) Qty: 20 0RF Rx Instructions: 1 3-4 times a day for dizziness vitamins A,C,L-uxos-uqqlpa [PreserVision AREDS] 1 cap PO BID atorvastatin 40 mg tablet 40 mg PO QHS Qty: 90 3RF Eliquis 2.5 mg tablet 2.5 mg PO BID Qty: 60 11RF pantoprazole 40 mg tablet,delayed release (DR/EC) 40 mg PO DAILY Qty: 30 9RF Referrals / Follow Up: Melody Briceno MD [Med Staff - Active Staff] - Within 1 Month Alexi Morin Chi, MD [Primary Care Provider] - Moi Michele PA [Med Staff - Adv Practice Prof] - Within 2 Weeks Disposition Disposition (needs filled in before D/C Order can be placed): Home, Self Care Charges/Coding Visit Charges Inpatient E&M: 77435 Disch Hosp >30min
--- NOTE | 2024-10-21 15:20 | CASEMGMT ---
Patient has order for discharge. RN CM in to discuss needs at discharge. Patient denies needs or help at discharge, spouse at bedside. Patient had no further questions or concerns.
--- NOTE | 2024-10-21 15:33 | PHA.DC.MC.R ---
Pharmacy [facility] Counseling Pharmacy Service has performed discharge medication reconciliation and counseling for this patient. 1. FUROSEMIDE 40MG PO DAILY 2. METOPROLOL SUCCINATE CHANGED TO BID The patient's discharge medication list was reviewed for discrepancies and discrepancies were resolved. The patient was counseled on the following discharge medications and changes in medications for homegoing were reviewed. The Reason for Use, instructions for use, and potential side effects were reviewed for all new medications. The patient's questions regarding all of their medications were answered. The patient was able to verbally demonstrate an understanding of their discharge medications. Medications at Discharge Home Medications nitroglycerin 0.4 mg sublingual tablet 0.4 mg sublingual Q5M PRN Cardiac/Chest Pain #1 BOTTLE 12/05/20 atorvastatin 40 mg tablet 40 mg PO QHS Cholestrol #90 tabs 01/16/22 cholecalciferol (vitamin D3) 25 mcg (1,000 unit) tablet 25 mcg PO DAILY SUPPLEMENT 02/28/22 diazepam 2 mg tablet (Valium) 2 mg PO UD PRN dizziness or vertigo #20 tabs 11/23/22 isosorbide mononitrate 60 mg tablet,extended release 24 hr 60 mg PO DAILY #90 tabs 01/04/23 buspirone 7.5 mg tablet 7.5 mg PO BID depression 11/01/23 meclizine 25 mg tablet 25 mg PO DAILY PRN dizziness 11/01/23 vitamins A,C,C-[id number]-qvsyie 1 cap PO BID EYE HEALTH 11/15/23 rosuvastatin 40 mg tablet 40 mg PO QDAY cholesterol 12/27/23 apixaban 2.5 mg tablet (Eliquis) 2.5 mg PO BID blood thinner #60 tabs 01/14/24 pantoprazole 40 mg tablet,delayed release 40 mg PO DAILY #30 TABLETS 01/22/24 amiodarone 200 mg tablet 200 mg PO QDAY Heart rate 10/20/24 amlodipine 5 mg tablet 5 mg PO QDAY BP 10/20/24 potassium chloride 10 mEq capsule,extended release 10 meq PO BID supplement 10/20/24 furosemide 40 mg tablet (Lasix) 40 mg PO DAILY 1 month #30 tabs 10/21/24 metoprolol succinate 25 mg tablet,extended release 24 hr 25 mg PO BID 1 month #60 tabs 10/21/24
== END 2024-10-21 17:01 | disposition home or self-care (01) ==
LOC: ED 19:30 → PCU 19:56
PROVIDERS: Admitting Provider Internal Medicine; Emergency Provider Emergency Medicine; PCP Family Medicine Geriatric Medicine; Referring Provider Internal Medicine; Visit Provider Internal Medicine
DX: I11.0 Hypertensive heart disease with heart failure (principal); I50.33 Acute on chronic diastolic (congestive) heart failure; J44.89 Other specified chronic obstructive pulmonary disease; I48.92 Unspecified atrial flutter; I48.20 Chronic atrial fibrillation, unspecified; Z86.718 Personal history of other venous thrombosis and embolism; G62.9 Polyneuropathy, unspecified; I25.10 Atherosclerotic heart disease of native coronary artery without angina pectoris; E66.812 Obesity, class 2; K21.9 Gastro-esophageal reflux disease without esophagitis; E78.00 Pure hypercholesterolemia, unspecified; M79.7 Fibromyalgia; Z79.899 Other long term (current) drug therapy; Z79.01 Long term (current) use of anticoagulants; Z68.36 Body mass index [BMI] 36.0-36.9, adult; Z95.5 Presence of coronary angioplasty implant and graft; I87.2 Venous insufficiency (chronic) (peripheral); D50.0 Iron deficiency anemia secondary to blood loss (chronic); G47.33 Obstructive sleep apnea (adult) (pediatric); F32.A Depression, unspecified; Z86.74 Personal history of sudden cardiac arrest
CPT/HCPCS: 36415; 71046; 78452; 80048; 80061; 83036; 83880; 84439; 84443; 84481; 84484; 85025; 93005; 93017; 93306; 96361; 96374; 99221; 99285; A9500; A4216; G0378; J1938; J2785

== ENCOUNTER → 2024-10-23 | Outpatient (CLI) | payer MEDICARE, SELFPAY ==
[2022-06-16 15:20] VITALS: BMI 37.3
[2024-10-23 16:00] LABS: Hematocrit 36.5 % (37-47); Hemoglobin 12.1 g/dL (12.0-15.0); Immature Granulocytes Count 0.030 X10^3/uL (0.0-0.0); Mean Corp Hgb Conc 33.2 g/dL (32-36); Mean Corpuscular Volume 84.9 fL (81-99); Mean Platelet Vol. 10.5 fl (6.2-12.0); NRBC Flagged by Analyzer 0 % (0-5); Platelet Count 313 K/mm3 (150-450); RBC Distribution Width CV 14.9 % (11.6-14.6); RBC Distribution Width SD 45.4 fl (35.1-43.9); Red Blood Count 4.30 M/mm3 (4.2-5.4); White Blood Count 7.0 K/mm3 (4.4-11.0)
[2024-10-23 16:49] LABS: Anion Gap 12 (5-15); BUN 20 mg/dL (4-19); BUN/Creat Ratio 18.2 RATIO (10-20); Calcium,Total 9.4 mg/dL (7.6-11.0); Carbon Dioxide 26.5 mmol/L (21.0-32.0); Chloride 103 mmol/L (98-108); Glucose 94 mg/dL (70-99); Potassium 3.3 mmol/L (3.3-5.1); Pro- Brain NATRIURETIC PEPTIDE 635 pg/mL (<=1800)
== END | disposition home or self-care (01) ==
LOC: LAB 14:43
PROVIDERS: PCP Family Medicine Geriatric Medicine; Referring Provider Family Medicine Geriatric Medicine; Visit Provider Family Medicine Geriatric Medicine
DX: I50.33 Acute on chronic diastolic (congestive) heart failure (principal); R07.9 Chest pain, unspecified
CPT/HCPCS: 36415; 80048; 83880; 85025

== ENCOUNTER → 2024-11-11 | Outpatient (CLI) | payer MEDICARE, SELFPAY ==
[2022-06-16 15:20] VITALS: BMI 37.3
[2024-11-11 12:26] LABS: AST(SGOT) 24 U/L (<=31); Alanine Aminotransfer ALT/SGPT 10 U/L (<=34); Albumin, Serum 3.9 g/dL (3.4-4.8); Alkaline Phosphatase 129 U/L (35-104); Anion Gap 10 (5-15); BUN 17 mg/dL (4-19); BUN/Creat Ratio 19.7 RATIO (10-20); Calcium,Total 9.4 mg/dL (7.6-11.0); Carbon Dioxide 25.2 mmol/L (21.0-32.0); Chloride 105 mmol/L (98-108); Globulin 3.6 g/dL (2.2-4.2); Glucose 113 mg/dL (70-99); Potassium 4.2 mmol/L (3.3-5.1)
== END | disposition home or self-care (01) ==
LOC: LAB 11:04
PROVIDERS: PCP Family Medicine Geriatric Medicine; Referring Provider Physician Assistant Medical; Visit Provider Physician Assistant Medical
DX: R42 Dizziness and giddiness (principal); R53.83 Other fatigue
CPT/HCPCS: 36415; 80053; 84443

== ENCOUNTER → 2024-12-08 | Outpatient (CLI) | payer MEDICARE, SELFPAY ==
[2022-06-16 15:20] VITALS: BMI 37.3
[2024-12-08 15:04] LABS: Hematocrit 41.5 % (37-47); Hemoglobin 13.3 g/dL (12.0-15.0); Immature Granulocytes Count 0.040 X10^3/uL (0.0-0.0); Mean Corp Hgb Conc 32.0 g/dL (32-36); Mean Corpuscular Volume 84.7 fL (81-99); Mean Platelet Vol. 10.0 fl (6.2-12.0); NRBC Flagged by Analyzer 0 % (0-5); Platelet Count 316 K/mm3 (150-450); RBC Distribution Width CV 14.8 % (11.6-14.6); RBC Distribution Width SD 45.7 fl (35.1-43.9); Red Blood Count 4.90 M/mm3 (4.2-5.4); White Blood Count 10.5 K/mm3 (4.4-11.0)
[2024-12-08 15:41] LABS: Anion Gap 11 (5-15); BUN 15 mg/dL (4-19); BUN/Creat Ratio 16.0 RATIO (10-20); Calcium,Total 9.5 mg/dL (7.6-11.0); Carbon Dioxide 25.3 mmol/L (21.0-32.0); Chloride 103 mmol/L (98-108); Ferritin 57 ng/mL (22-378); Glucose 102 mg/dL (70-99); Iron 25 ug/dL (50-170); Iron Binding Capacity,Total 360 ug/dL (250-450); Iron Binding Capacity,Unsat 335 ug/dL (228-428); Potassium 4.7 mmol/L (3.3-5.1)
== END | disposition home or self-care (01) ==
LOC: POLAB3 14:47
PROVIDERS: Nurse Practitioner Family; PCP Family Medicine Geriatric Medicine; Visit Provider Family Medicine Geriatric Medicine
DX: J98.8 Other specified respiratory disorders (principal)
CPT/HCPCS: 36415; 80048; 82728; 83540; 83550; 85025; 87631

== ENCOUNTER → 2024-12-26 | Outpatient (CLI) | payer MEDICARE, SELFPAY ==
[2022-06-16 15:20] VITALS: BMI 37.3
--- NOTE | 2024-12-26 10:21 | RAD_ITS ---
EXAM: XR Left Hip With Pelvis When Performed, 2 or 3 Views CLINICAL INDICATION: UNILATERAL PRIMARY OSTEOARTHRITIS, LEFT HIP TECHNIQUE: Two or three views of the left hip with pelvis when performed. COMPARISON: No relevant prior studies available. FINDINGS: BONES/JOINTS: Mild degenerative change of the hip joint. No acute fracture. No dislocation. SOFT TISSUES: Unremarkable. RAD/HIP, UNI W/ Pelvis 2-3 Views IMPRESSION: Degenerative changes as above. Reading Location: [id number]
[2024-12-26 11:37] LABS: Hematocrit 38.9 % (37-47); Hemoglobin 12.3 g/dL (12.0-15.0); Immature Granulocytes Count 0.040 X10^3/uL (0.0-0.0); Mean Corp Hgb Conc 31.6 g/dL (32-36); Mean Corpuscular Volume 84.6 fL (81-99); Mean Platelet Vol. 10.1 fl (6.2-12.0); NRBC Flagged by Analyzer 0 % (0-5); Platelet Count 285 K/mm3 (150-450); RBC Distribution Width CV 15.2 % (11.6-14.6); RBC Distribution Width SD 46.5 fl (35.1-43.9); Red Blood Count 4.60 M/mm3 (4.2-5.4); White Blood Count 8.4 K/mm3 (4.4-11.0)
[2024-12-26 12:18] LABS: AST(SGOT) 20 U/L (<=31); Alanine Aminotransfer ALT/SGPT 14 U/L (<=34); Albumin, Serum 3.7 g/dL (3.4-4.8); Alkaline Phosphatase 113 U/L (35-104); Anion Gap 9 (5-15); BUN 18 mg/dL (4-19); BUN/Creat Ratio 19.0 RATIO (10-20); Calcium,Total 9.4 mg/dL (7.6-11.0); Carbon Dioxide 26.7 mmol/L (21.0-32.0); Chloride 106 mmol/L (98-108); Cholesterol 204 mg/dL (<=200); Globulin 3.4 g/dL (2.2-4.2); Glucose 83 mg/dL (70-99); Low Density Lipoprotein Calc. 135 mg/dL; Potassium 4.9 mmol/L (3.3-5.1); Triglycerides 124 mg/dL; Very Low Density Lipoprotein 25 mg/dL (5-40); Vitamin D,25 Hydroxy 31.4 ng/mL (30-100); cholesterol:hdl ratio screen 4.59
== END | disposition home or self-care (01) ==
LOC: RAD 10:18
PROVIDERS: PCP Family Medicine Geriatric Medicine; Referring Provider Family Medicine Geriatric Medicine; Visit Provider Family Medicine Geriatric Medicine
DX: M16.12 Unilateral primary osteoarthritis, left hip (principal); E78.5 Hyperlipidemia, unspecified; E55.9 Vitamin D deficiency, unspecified
CPT/HCPCS: 36415; 73502; 80053; 80061; 82306; 84443; 85025

== ENCOUNTER → 2025-02-25 | Outpatient (CLI) | payer MEDICARE, SELFPAY ==
[2022-06-16 15:20] VITALS: BMI 37.3
--- NOTE | 2025-02-25 15:32 | MRI_ITS ---
PROCEDURE: MRI/Brain without Contrast
== END | disposition home or self-care (01) ==
LOC: MRI 15:23
PROVIDERS: PCP Family Medicine Geriatric Medicine; Referring Provider Family Medicine Geriatric Medicine; Visit Provider Family Medicine Geriatric Medicine
DX: R26.89 Other abnormalities of gait and mobility (principal); I63.50 Cerebral infarction due to unspecified occlusion or stenosis of unspecified cerebral artery
CPT/HCPCS: 70551

== ENCOUNTER → 2025-03-03 | Outpatient (CLI) | payer MEDICARE, SELFPAY ==
[2022-06-16 15:20] VITALS: BMI 37.3
== END | disposition home or self-care (01) ==
LOC: POLAB3 16:51
PROVIDERS: PCP Family Medicine Geriatric Medicine; Visit Provider Family Medicine Geriatric Medicine
DX: N39.0 Urinary tract infection, site not specified (principal)
CPT/HCPCS: 87086; 87088; 87186

== ENCOUNTER → 2025-03-30 | Outpatient (CLI) | payer MEDICARE, SELFPAY ==
[2022-06-16 15:20] VITALS: BMI 37.3
--- NOTE | 2025-03-30 15:11 | RAD_ITS ---
PROCEDURE: CHEST PA AND LATERAL 03/30/2025 REASON FOR EXAM: SOB TECHNIQUE: Procedure Code: RADCXR Modality: DX Procedure: CHEST PA AND LATERAL COMPARISON: 10/20/2024 FINDINGS: Hardware: None Heart: The heart size is normal. Mediastinum: The mediastinal contour is unremarkable. Lungs: The lungs are clear. No pneumothorax or pleural effusion. Bones: The bones are unremarkable. RAD/Chest PA and Lateral IMPRESSION: NO ACUTE FINDINGS. Reading [facility]
[2025-03-30 15:13] LABS: Hematocrit 40.8 % (37-47); Hemoglobin 12.8 g/dL (12.0-15.0); Immature Granulocytes Count 0.030 X10^3/uL (0.0-0.0); Mean Corp Hgb Conc 31.4 g/dL (32-36); Mean Corpuscular Volume 85.2 fL (81-99); Mean Platelet Vol. 10.4 fl (6.2-12.0); NRBC Flagged by Analyzer 0 % (0-5); Platelet Count 296 K/mm3 (150-450); RBC Distribution Width CV 15.2 % (11.6-14.6); RBC Distribution Width SD 46.8 fl (35.1-43.9); Red Blood Count 4.79 M/mm3 (4.2-5.4); White Blood Count 7.4 K/mm3 (4.4-11.0)
[2025-03-30 15:41] LABS: AST(SGOT) 24 U/L (<=31); Alanine Aminotransfer ALT/SGPT 11 U/L (<=34); Albumin, Serum 3.8 g/dL (3.4-4.8); Alkaline Phosphatase 104 U/L (35-104); Anion Gap 8 (5-15); BUN 18 mg/dL (4-19); BUN/Creat Ratio 19.6 RATIO (10-20); Calcium,Total 9.5 mg/dL (7.6-11.0); Carbon Dioxide 27.9 mmol/L (21.0-32.0); Chloride 108 mmol/L (98-108); Cholesterol 134 mg/dL (<=200); Globulin 3.4 g/dL (2.2-4.2); Glucose 98 mg/dL (70-99); Low Density Lipoprotein Calc. 70 mg/dL; Potassium 4.4 mmol/L (3.3-5.1); Pro- Brain NATRIURETIC PEPTIDE 923 pg/mL (<=1800); Triglycerides 163 mg/dL; Very Low Density Lipoprotein 33 mg/dL (5-40); cholesterol:hdl ratio screen 3.77
== END | disposition home or self-care (01) ==
PROVIDERS: PCP Family Medicine Geriatric Medicine; Referring Provider Student in an Organized Health Care Education/Training Program; Visit Provider Student in an Organized Health Care Education/Training Program
DX: R07.9 Chest pain, unspecified (principal); I48.0 Paroxysmal atrial fibrillation; R06.02 Shortness of breath; I10 Essential (primary) hypertension
CPT/HCPCS: 36415; 71046; 80053; 80061; 83880; 85025

== ENCOUNTER → 2025-04-07 | Outpatient (CLI) | payer MEDICARE, SELFPAY ==
[2022-06-16 15:20] VITALS: BMI 37.3
== END | disposition home or self-care (01) ==
LOC: PSN 08:49
PROVIDERS: PCP Family Medicine Geriatric Medicine; Referring Provider Student in an Organized Health Care Education/Training Program; Visit Provider Student in an Organized Health Care Education/Training Program
DX: I48.0 Paroxysmal atrial fibrillation (principal)
CPT/HCPCS: 93225; 93226